=== PATIENT | male | born 1945 | race Caucasian/White ===

== ENCOUNTER 2022-11-08 07:14 | Emergency (ER) | payer OTHER, SELFPAY ==
[2022-11-08 07:15] VITALS: BP 148/48; PULSE 51; RESP 18; TEMP 36.7; O2SAT 96
--- NOTE | 2022-11-08 07:15 | DI.CT_ITS ---
Exam(s) CT ABDOMEN PELVIS WO EXAM: CT ABDOMEN PELVIS WO CLINICAL HISTORY: lower extremity weakness, low back pain. TECHNIQUE: Imaging Protocol: Axial computed tomography images with coronal and sagittal reformatted images were created and reviewed. COMPARISON: No exams were available for comparison FINDINGS: ABDOMEN: Lung Bases: Normal where visualized. Liver: There is a nodular contour of the liver consistent with hepatic cirrhosis. The patient has a TIPS in place. No measurable mass. Gallbladder and biliary tract: No radiodense calculus or biliary ductal dilation. Pancreas: Normal density, no abnormal calcifications or inflammatory process. Spleen: The spleen is enlarged. Kidneys: Normal size, contour and axis.No radiodense stones or obstructive uropathy. No masses seen. Adrenal glands: No mass is seen. Lymph nodes: Within normal limits. Abdominal Aorta: Abdominal portion non-dilated. Atherosclerosis is present. PELVIS: Bladder:Symmetric distention, no gross wall thickening. 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 There are few scatte red diverticula in the colon but no evidence of acute diverticulitis. There also appears to be a par tial right colectomy. There is no evidence of bowel obstruction or inflammation. Peritoneal cavity: No ascites, collection or mesenteric inflammatory response. No free air. Reproductive organs: Unremarkable as visualized. Bones: Within normal limits for the patient's age. Soft Tissues: There are bilateral fat containing inguinal hernias, right greater than left. Postsurg ical changes in the anterior abdominal wall. IMPRESSION: No acute abdominal or pelvic process. RADIATION DOSE DELIVERED: 1193.66 mGy.cm Total DLP DATA REPOSITORY: All CT scans at this facility are submitted to the National Radiology Data Registry (NRDR) Dose Index Registry (DIR) with the [employer] (ACR). RADIATION OPTIMIZATION: All CT scans at this facility use at least one of these dose optimization te chniques: automated exposure control; mA and/or kV adjustment per patient size (includes targeted exa ms where dose is matched to clinical indication); or iterative reconstruction.
--- NOTE | 2022-11-08 07:15 | RT.EKG_ITS ---
APPROVED REPORT Exam: Resting ECG Reason for Exam: dizzy Patient Location: E HR:46 bpm ECG Measurements Heart Rate 46 AXIS NY 269 P 59 QRSd 111 QRS 40 QT 534 T -18 QTc 461 Conclusion Sinus bradycardia...rate< 60 Atrial premature complexes...SV complexes w/ short R-R intvls Prolonged NY interval...NY >230, V-rate 30- 49 Incomplete left bundle branch block...QRSd>110mS, terminal axis(-90,-1) Physician: sinus vicki, p waves noted in II. 1st degree block. no stemi
--- NOTE | 2022-11-08 07:15 | DI.RAD_ITS ---
Exam(s) XR FOOT RT COMPLETE EXAM: XR FOOT RT COMPLETE CLINICAL HISTORY: fall, trauma, great toe pain. TECHNIQUE: 2D digital imaging was performed of the right foot. Three images were obtained. AP, obl ique and lateral views were obtained. COMPARISON: No exams were available for comparison FINDINGS: BONES: No acute fracture is present. No bony destructive lesion is seen. JOINTS: No dislocation present. Degenerative changes are seen at the 1st MTP joint. SOFT TISSUE: Normal. IMPRESSION: No definite acute fracture or dislocation. If symptoms persist, a follow-up examination in 7-10 days may be obtained for re-evaluation. DATA REPOSITORY: RADIATION DOSE DELIVERED:
--- NOTE | 2022-11-08 07:15 | DI.RAD_ITS ---
Exam(s) XR KNEE RT 3V AP,LAT,GIUSEPPE EXAM: XR KNEE RT 3V AP,LAT,GIUSEPPE CLINICAL HISTORY: fall, knee pain. TECHNIQUE: 2D digital imaging was performed of the right knee. Three views obtained. AP, lateral an d PA tunnel views were obtained. COMPARISON: No exams were available for comparison FINDINGS: BONES: No acute fracture is present. No bony destructive lesion is seen. JOINTS: The knee is normally aligned. No joint effusion is seen. Mild degenerative changes are presen t. SOFT TISSUE: Vascular calcifications are present. IMPRESSION: No acute fracture or dislocation. DATA REPOSITORY: RADIATION DOSE DELIVERED:
--- NOTE | 2022-11-08 07:15 | DI.RAD_ITS ---
Exam(s) XR KNEE LT 3V AP,LAT,GIUSEPPE EXAM: XR KNEE LT 3V AP,LAT,GIUSEPPE CLINICAL HISTORY: fall, knee pain. TECHNIQUE: 2D digital imaging was performed of the left knee. Three images were obtained. AP, late ral and PA tunnel views were obtained. COMPARISON: CR XR KNEE RT 3V AP,LAT,GIUSEPPE from 11/08/2022 FINDINGS: BONES: No acute fracture is present. No bony destructive lesion is seen. JOINTS: The knee is normally aligned. No joint effusion is seen. SOFT TISSUE: Normal. IMPRESSION: No acute fracture or dislocation. DATA REPOSITORY: RADIATION DOSE DELIVERED:
--- NOTE | 2022-11-08 07:15 | DI.CT_ITS ---
Exam(s) CT HEAD WO EXAM: CT HEAD WO CLINICAL HISTORY: weak, dizzy. TECHNIQUE: Imaging Protocol: Axial computed tomography images with coronal and sagittal reformatted images were created and reviewed COMPARISON: No exams were available for comparison FINDINGS: Ventricles and Extra axial spaces: Normal in size and morphology for the patient's age. Hemorrhage: None. Cerebral parenchyma: No acute territorial infarct. There are areas of decreased attenuation in the w juanita matter suggestive of small vessel ischemic disease. 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 Midline shift: None. Brainstem/Cerebellum: Normal. Calvarium: Normal. Visualized Paranasal sinuses/Mastoids: Mucosal thickening and small mucous retention cysts or polyps are seen in the maxillary sinuses. The patient has had prior sinus surgery. There is a rounded slig htly hyperdense area in the left maxillary sinus. While hemorrhage cannot be entirely excluded. Chr onic mucosal disease should may also have this appearance. No evidence of a maxillary wall fracture. Soft Tissues: Unremarkable. IMPRESSION: No definite acute intracranial process. RADIATION DOSE DELIVERED: 933.34mGy.cm Total DLP DATA REPOSITORY: All CT scans at this facility are submitted to the National Radiology Data Registry (NRDR) Dose Index Registry (DIR) with the [employer] (ACR). RADIATION OPTIMIZATION: All CT scans at this facility use at least one of these dose optimization te chniques: automated exposure control; mA and/or kV adjustment per patient size (includes targeted exa ms where dose is matched to clinical indication); or iterative reconstruction.
--- NOTE | 2022-11-08 07:22 | DI.CT_ITS ---
Exam(s) CT LUMBAR SPINE RECONS EXAM: CT LUMBAR SPINE RECONS CLINICAL HISTORY: lower extremity weakness, low back pain. TECHNIQUE: Imaging Protocol: Axial computed tomography images with coronal and sagittal reformatted images were created and reviewed. COMPARISON: CT CT ABDOMEN PELVIS WO from 11/08/2022 FINDINGS: Bones: No fractures or dislocations are seen. The alignment of the spine is normal including the thor acolumbar junction. Moderate degenerative changes are present throughout the lumbar spine. Findings include disc space narrowing, vacuum discs, facet arthropathy and endplate osteophytes. There is ne ural foraminal stenosis seen at L4-5 and L5-S1. There is mild narrowing of the central spinal canal at several levels but no significant central spinal canal stenosis is seen. Soft tissues: The paraspinal soft tissues are unremarkable. Please refer to the CT scan of the abdom en and pelvis for other details. Note is made of hepatic TIPS procedure. IMPRESSION: 1. No acute fracture or subluxation in the lumbar spine. 2. Findings were discussed with Dr. Esparza on 11/08/2022 at 12:58 p.m.. RADIATION DOSE DELIVERED: Total DLP Total DLP DATA REPOSITORY: All CT scans at this facility are submitted to the National Radiology Data Registry (NRDR) Dose Index Registry (DIR) with the [employer] (ACR). RADIATION OPTIMIZATION: All CT scans at this facility use at least one of these dose optimization te chniques: automated exposure control; mA and/or kV adjustment per patient size (includes targeted exa ms where dose is matched to clinical indication); or iterative reconstruction.
[2022-11-08 07:30] VITALS: RESP 16
--- NOTE | 2022-11-08 07:30 | ED.GENADUL_ITS ---
Discharge Plan Discharge Details Chief Complaint: Dizzy/Sync ED Provider: [facility] 77-year-old male who is a poor historian who is new to this facility who initially gave EMS the wrong name, and is not able to give much in the way of past medical history, but does have a known history of diabetes, colostomy, and recent endocarditis for which she was treated at [facility] for an extended period of time and is still on IV antibiotics, presents today for evalu ation of dizziness. Patient states that he gets dizzy every day, he has chronic back pain, however today he was again dizzy, lowered himself down onto his knees in the bathroom, and was unable to get up from his knees for a few hours. EMS was called, and the patient was brought here for further assessment. He denies any fall, he denies hitting his. He denies any trauma otherwise. He denies any Chest pain or shortness of breath. He denies any vomiting or diarrhea. He states that he has chronic back pain, but this is unchanged and not new. He states that he has chronic mild lower extremity weakness but never like this and he is always able to get up and move his legs. He denies any new numbness or tingling. He denies any other complaints at this time. Exam demonstrates mild weakness in the lower extremities with a 3 out of 5 strength in lower extremities bilaterally. Bilateral knee tenderness. Right great toe tenderness. Mild achiness in the back but no midline focal tender ness. No other focal neurologic deficits. Differential includes dehydration, less likely stroke. Spinal pathology is on the differential as well, but there is no other clear evidence of cauda equina syndrome aside for the weakness of the lower extremities. Concern for fracture of the great toe, as well as injury of the knees. We will get x-rays of the knees and great toe on the right. We will get a CT scan of the head and lumbar spine. We will gently rehydrate, monitor closely and reassess. Case will be signed out to my colleague Dr. Mirza Oneil for follow-up on labs and imaging. We are requesting medical history from [facility] at this time. HPI General Date/Time Provider Initiated Documentation: 11/08/22 07:22 . HPI Narrative: 77-year-old male who is a poor historian who is new to this facility who initially gave EMS the wrong name, and is not able to give much in the way of past medical history, but does have a known history of diabetes, colostomy, and recent endocarditis for which she was treated at [facility] for an extended period of time and is still on IV antibiotics, presents today for evaluation of dizziness. Patient states that he gets dizzy every day, he has chronic back pain, however today he was again dizzy, lowered himself down onto his knees in the bathroom, and was unable to get up from his knees for a few hours. EMS was called, and the patient was brought here for further assessment. He denies any fall, he denies hitting his. He denies any trauma otherwise. He denies any Chest pain or shortness of breath. He denies any vomiting or diarrhea. He states that he has chronic back pain, but this is unchanged and not new. He states that he has chronic mild lower extremity weakness but never like this and he is always able to get up and move his legs. He denies any new numbness or tingling. He denies any other complaints at this time. Related Data Allergies Allergy/AdvReac Type Severity Reaction Status Date / Time morphine Allergy Severe Other (See Unverified 11/02/22 13:23 Comment) mussels Allergy Severe Other (See Unverified 11/02/22 13:24 Comment) Penicillins Allergy Mild Itching Unverified 11/02/22 13:22 General Stated Complaint: Dizzy/Sync ANNA: 3 Review of Systems All systems reviewed & are unremarkable except as noted in HPI and below PFSH Social History Smoking/Tobacco Use Status: Former Tobacco Use Smoking risk assessment performed?: Yes Alcohol Intake: former Drug use: Never Substance use type: does not use Do you feel safe at home: Yes Do you feel safe in your relationship?: Yes Exam Narrative Exam Narrative: 1.Const: Well-nourished, Well-developed, appearing stated age 2.Eyes: PERRL, no conjunctival injection, and symmetrical lids. 3.ENT: Atraumatic external nose and ears. Moist MM. Neck: Symmetric, trachea midline, No thyromegaly. 4.CVS: +S1/S2, Peripheral pulses 2+ and equal in all extremities. Brisk capillary refill in all extremities. 5.RESP: Unlabored respiratory effort. Clear to auscultation bilaterally. No wheezes rales or rhonchi 6.GI: Soft, Nontender/Nondistended, No hepatosplenomegaly. No guarding or rebound. Colostomy bag in place. 7.MSK: No gross deformity for the upper or lower extremities. Mild redness over the left knee, mild patellar tenderness. Mild tenderness over the right knee. Stool is present between the patient's legs. Sensation is intact in the saddle region. Tenderness of the great toe for the right foot. Pain with dorsiflexion. No tenderness on the rest of the foot or the left foot. Patient demonstrates 3 out of 5 strength for the lower extremities bilaterally. No hip or pelvic tenderness. 8.Skin: Warm, Dry. No rashes or lesions. 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 Sensation grossly intact, no focal neurologic deficits aside for the aforementioned weakness 10.Psych: (AAO) x3. Appropriate mood and affect Course Vital Signs Vital signs: Vital Signs Temperature 36.7 C 11/08/22 07:15 Pulse 51 L 11/08/22 07:15 Respiratory Rate 18 11/08/22 07:15 Blood Pressure 148/48 H 11/08/22 07:15 Pulse Oximetry 96 11/08/22 07:15 Temperature 36.7 C 11/08/22 07:15 Temperature Source Temporal Artery Scan 11/08/22 07:15 Pulse 51 L 11/08/22 07:15 Respiratory Rate 18 11/08/22 07:15 Respiratory Effort Non-Labored 11/08/22 07:24 Blood Pressure 148/48 H 11/08/22 07:15 Blood Pressure Position Sitting 11/08/22 07:15 Pulse Oximetry 96 11/08/22 07:15 Oxygen Delivery Method Room Air 11/08/22 07:15 Oxygen Flow Rate 0 11/08/22 07:15
[2022-11-08] MEDS: Normal Saline 500 ML IV (07:45)
[2022-11-08 08:11] LABS: Abs Immature Grans 0.02 10^3/uL (0.0-0.06); Absolute Basophil Count 0.02 10^3/uL (0.0-0.2); Absolute Eosinophil Count 0.17 10^3/uL (0.0-0.7); Absolute Monocyte Count 0.29 10^3/uL (0.1-0.8); Absolute Neutrophil Count 3.32 10^3/uL (1.2-6.7); Basophils % 0.5; Eosinophils % 3.9; HCT 32.9 % (40.0-50.0); Immature Grans % 0.5; Lymphocytes % 11.6; MCH 29.6 pg (27.0-33.0); MCHC 33.4 % (32.0-36.0); MCV 89 fL (80-95); MPV 11.5 fL (8.0-11.0); Monocytes % 6.7; Neutrophils % 76.8; RBC 3.71 10^6/uL (4.36-5.78); RDW 15.1 % (11.8-14.1); WBC 4.32 10^3/uL (4.4-10.8)
[2022-11-08 08:21] LABS: Diff Comment Diff Reviewed; Platelet Count 63 10^3/uL (130-400); RBC Morphology Normal
[2022-11-08 08:34] LABS: ALT 22 U/L (16-63); AST 39 U/L (15-37); Albumin 2.6 g/dL (3.4-5.0); Alkaline Phosphatase 188 U/L (46-116); Anion Gap 10.7 mmol/L (3-11); BUN 25 mg/dL (7-18); Bilirubin, Total 1.5 mg/dL (0.2-1.0); CO2 23.3 mmol/L (21.0-32.0); CREATININE 1.3 mg/dL (0.70-1.30); Calcium 8.6 mg/dL (8.5-10.1); Chloride 105 mmol/L (98-107); Estimated GFR 57.29 (mL/min/1.73m2); Glucose 205 mg/dL (74-106); Magnesium 1.5 mg/dL (1.8-2.4); NT-proBNP 281 pg/mL (<300); Sodium 139 mmol/L (136-145); TSH (W/Ref FT4) 10.32 uIU/mL (0.36-3.74); Total Protein 6.3 g/dL (6.4-8.2); Troponin I < 50 ng/L (<or=60)
[2022-11-08 11:17] VITALS: BP 159/51; PULSE 55; RESP 16; TEMP 36.9; O2SAT 95
--- NOTE | 2022-11-08 11:19 | NUR.NOTE ---
Nursing Note: PT RESTING ON STRETCHER W/O COMPLAINTS WAITING TO GO TO DI FOR ORDERED EXAMS, NAD, CONTINUE TO MONITOR.
[2022-11-08 11:32] LABS: Troponin I < 50 ng/L (<or=60)
[2022-11-08 12:00] VITALS: BP 178/68; PULSE 56; RESP 16; TEMP 37; O2SAT 96
--- NOTE | 2022-11-08 12:01 | NUR.NOTE ---
Nursing Note: PT TO DI FOR ORDERED EXAMS, PT DENIES DIZZINESS/LIGHT HEADEDNESS AT THIS TIME, DENIES COMPLAINTS EXCEPT BACK DISCOMFORT D/T LYING ON STRETCHER, CONT. TO MONITOR.
[2022-11-08] MEDS: ERTAPENEM 1 GM in Normal Saline 50 ML IVPB (13:31)
--- NOTE | 2022-11-08 14:00 | NUR.NOTE ---
Nursing Note: PT info given to care management for follow up early next week for repeated falls & physical therapy. Shelly, ED
--- NOTE | 2022-11-11 13:11 | CMPROGNOTE_ITS ---
- If Service Date Differs Date of service: 11/11/22 Time of Service: 13:11 Care Management Progress Note Referral to CM from ED for PT orders; no PCP. CM called and spoke with Osmar's , Clary who reported Osmar's PCP is at the [place]: Evelyn Carver. CM updated information and scanned to ACCESS to update chart. Clary also reported [facility] services were already in place providing PT/OT, and shared that Osmra was currently being treated at the [facility] infusion room. She shared positive remarks regarding his visit to the ED.
== END 2022-11-08 16:39 | disposition home or self-care (01) ==
PROVIDERS: Student in an Organized Health Care Education/Training Program; Emergency Provider Emergency Medicine
DX: R42 Dizziness and giddiness (principal); E11.9 Type 2 diabetes mellitus without complications; M54.9 Dorsalgia, unspecified; G89.29 Other chronic pain; R53.1 Weakness; W18.39XA Other fall on same level, initial encounter; M25.561 Pain in right knee; M25.562 Pain in left knee; M79.674 Pain in right toe(s)
CPT/HCPCS: 36415; 73562; 80053; 93005; 96361; 96365; 99285; 70450; 73630; 74176; 83735; 83880; 84439; 84443; 84484; 85025; 93010; 99284; J1335

== ENCOUNTER 2022-11-26 02:33 | Outpatient (RCR) | payer OTHER, SELFPAY ==
[2022-10-30] MEDS: Normal Saline Flush 10 ML SYR IVP (12:57)
[2022-10-30] MEDS: ERTAPENEM 1 GM in Normal Saline 50 ML IVPB (12:57)
[2022-10-30 13:28] LABS: HCT 37.9 % (40.0-50.0); HGB 12.8 g/dL (13.5-17.5); MCH 29.7 pg (27.0-33.0); MCHC 33.8 % (32.0-36.0); MCV 88 fL (80-95); MPV 10.8 fL (8.0-11.0); Platelet Count 144 10^3/uL (130-400); RBC 4.31 10^6/uL (4.36-5.78); RDW 14.7 % (11.8-14.1); RDW-SD 46.4 fL; WBC 7.53 10^3/uL (4.4-10.8)
[2022-10-30 13:47] LABS: ALT 27 U/L (16-63); AST 46 U/L (15-37); Albumin 2.7 g/dL (3.4-5.0); Alkaline Phosphatase 177 U/L (46-116); BUN 16 mg/dL (7-18); Bilirubin, Total 1.8 mg/dL (0.2-1.0); C-Reactive Protein 0.22 mg/dL (0.0-0.3); CREATININE 0.8 mg/dL (0.70-1.30); Calcium 8.5 mg/dL (8.5-10.1); Chloride 109 mmol/L (98-107); Estimated GFR 92.29 (mL/min/1.73m2); Glucose 219 mg/dL (74-106); Potassium 4.3 mmol/L (3.5-5.1); Sodium 140 mmol/L (136-145); Total Protein 6.9 g/dL (6.4-8.2)
[2022-10-31] MEDS: ERTAPENEM 1 GM in Normal Saline 50 ML IVPB (13:13)
[2022-10-31] MEDS: Normal Saline Flush 10 ML SYR IVP (13:13)
[2022-11-01] MEDS: ERTAPENEM 1 GM in Normal Saline 50 ML IVPB (13:00)
[2022-11-01] MEDS: Normal Saline Flush 10 ML SYR IVP (13:00)
[2022-11-02] MEDS: ERTAPENEM 1 GM in Normal Saline 50 ML IVPB (13:18)
[2022-11-02] MEDS: Normal Saline Flush 10 ML SYR IVP (13:18)
[2022-11-03] MEDS: ERTAPENEM 1 GM in Normal Saline 50 ML IVPB (12:55)
[2022-11-03] MEDS: Normal Saline Flush 10 ML SYR IVP (12:56)
[2022-11-04] MEDS: ERTAPENEM 1 GM in Normal Saline 50 ML IVPB (12:58)
[2022-11-04] MEDS: Normal Saline Flush 10 ML SYR IVP (12:58)
[2022-11-05] MEDS: ERTAPENEM 1 GM in Normal Saline 50 ML IVPB (13:06)
[2022-11-05] MEDS: Normal Saline Flush 10 ML SYR IVP (13:06)
[2022-11-06] MEDS: ERTAPENEM 1 GM in Normal Saline 50 ML IVPB (13:03)
[2022-11-06] MEDS: Normal Saline Flush 10 ML SYR IVP (13:06)
[2022-11-06 13:21] LABS: Abs Immature Grans 0.01 10^3/uL (0.0-0.06); Absolute Basophil Count 0.04 10^3/uL (0.0-0.2); Absolute Lymphocyte Count 1.03 10^3/uL (1.2-3.4); Absolute Monocyte Count 0.49 10^3/uL (0.1-0.8); Absolute Neutrophil Count 3.59 10^3/uL (1.2-6.7); Basophils % 0.7; Eosinophils % 5.5; HCT 35.5 % (40.0-50.0); HGB 11.8 g/dL (13.5-17.5); Immature Grans % 0.2; Lymphocytes % 18.9; MCH 29.8 pg (27.0-33.0); MCHC 33.2 % (32.0-36.0); MCV 90 fL (80-95); Neutrophils % 65.7; RBC 3.96 10^6/uL (4.36-5.78); RDW 15.4 % (11.8-14.1); RDW-SD 50.1 fL; WBC 5.46 10^3/uL (4.4-10.8)
[2022-11-06 13:36] LABS: ALT 30 U/L (16-63); AST 47 U/L (15-37); Albumin 2.7 g/dL (3.4-5.0); Alkaline Phosphatase 206 U/L (46-116); Anion Gap 9.3 mmol/L (3-11); BUN 20 mg/dL (7-18); Bilirubin, Total 1.5 mg/dL (0.2-1.0); C-Reactive Protein 0.44 mg/dL (0.0-0.3); CO2 24.7 mmol/L (21.0-32.0); CREATININE 1.6 mg/dL (0.70-1.30); Calcium 8.2 mg/dL (8.5-10.1); Chloride 104 mmol/L (98-107); Estimated GFR 44.65 (mL/min/1.73m2); Glucose 227 mg/dL (74-106); Sodium 138 mmol/L (136-145); Total Protein 6.5 g/dL (6.4-8.2)
[2022-11-06 13:41] LABS: Platelet Count 83 10^3/uL (130-400)
[2022-11-07] MEDS: ERTAPENEM 1 GM in Normal Saline 50 ML IVPB (13:35)
[2022-11-07] MEDS: Normal Saline Flush 10 ML SYR IVP (13:36)
[2022-11-09] MEDS: Normal Saline Flush 10 ML SYR IVP (12:50)
[2022-11-09] MEDS: ERTAPENEM 1 GM in Normal Saline 50 ML IVPB (12:55)
[2022-11-10] MEDS: ERTAPENEM 1 GM in Normal Saline 50 ML IVPB (12:57)
[2022-11-10] MEDS: Normal Saline Flush 10 ML SYR IVP (12:58)
[2022-11-11] MEDS: ERTAPENEM 1 GM in Normal Saline 50 ML IVPB (12:52)
[2022-11-11] MEDS: Normal Saline Flush 10 ML SYR IVP (12:54)
[2022-11-12] MEDS: ERTAPENEM 1 GM in Normal Saline 50 ML IVPB (13:03)
[2022-11-12] MEDS: Normal Saline Flush 10 ML SYR IVP (13:09)
[2022-11-13] MEDS: ERTAPENEM 1 GM in Normal Saline 50 ML IVPB (12:55)
[2022-11-13] MEDS: Normal Saline Flush 10 ML SYR IVP (12:56)
[2022-11-13 13:12] LABS: Abs Immature Grans 0.01 10^3/uL (0.0-0.06); Absolute Basophil Count 0.02 10^3/uL (0.0-0.2); Absolute Eosinophil Count 0.23 10^3/uL (0.0-0.7); Absolute Lymphocyte Count 0.71 10^3/uL (1.2-3.4); Absolute Monocyte Count 0.34 10^3/uL (0.1-0.8); Absolute Neutrophil Count 2.47 10^3/uL (1.2-6.7); Basophils % 0.5; Eosinophils % 6.1; HCT 32.7 % (40.0-50.0); HGB 11.1 g/dL (13.5-17.5); Immature Grans % 0.3; Lymphocytes % 18.8; MCH 30.3 pg (27.0-33.0); MCHC 33.9 % (32.0-36.0); MCV 89 fL (80-95); MPV 11.4 fL (8.0-11.0); Neutrophils % 65.3; RBC 3.66 10^6/uL (4.36-5.78); RDW 15.1 % (11.8-14.1); RDW-SD 48.9 fL; WBC 3.78 10^3/uL (4.4-10.8)
[2022-11-13 13:25] LABS: ALT 22 U/L (16-63); AST 51 U/L (15-37); Albumin 2.7 g/dL (3.4-5.0); Alkaline Phosphatase 188 U/L (46-116); Anion Gap 6.1 mmol/L (3-11); BUN 12 mg/dL (7-18); Bilirubin, Total 2.1 mg/dL (0.2-1.0); CO2 23.9 mmol/L (21.0-32.0); CREATININE 1.1 mg/dL (0.70-1.30); Calcium 8.5 mg/dL (8.5-10.1); Chloride 105 mmol/L (98-107); Estimated GFR 70.01 (mL/min/1.73m2); Glucose 228 mg/dL (74-106); Potassium 3.5 mmol/L (3.5-5.1); Sodium 135 mmol/L (136-145); Total Protein 6.5 g/dL (6.4-8.2)
[2022-11-13 13:35] LABS: Diff Comment Diff Reviewed; Platelet Count 89 10^3/uL (130-400); RBC Morphology Normal
[2022-11-14] MEDS: Normal Saline Flush 10 ML SYR IVP (13:02)
[2022-11-14] MEDS: ERTAPENEM 1 GM in Normal Saline 50 ML IVPB (13:02)
[2022-11-15] MEDS: ERTAPENEM 1 GM in Normal Saline 50 ML IVPB (15:52)
[2022-11-15] MEDS: Normal Saline Flush 10 ML SYR IVP (15:53)
[2022-11-16] MEDS: ERTAPENEM 1 GM in Normal Saline 50 ML IVPB (12:52)
[2022-11-16] MEDS: Normal Saline Flush 10 ML SYR IVP (12:52)
[2022-11-16 12:55] VITALS: BP 184/73; PULSE 59; RESP 24; TEMP 37.1; O2SAT 94
[2022-11-17] MEDS: ERTAPENEM 1 GM in Normal Saline 50 ML IVPB (12:46)
[2022-11-17] MEDS: Normal Saline Flush 10 ML SYR IVP (12:47)
[2022-11-17 12:56] VITALS: RESP 32; O2SAT 91
[2022-11-18] MEDS: Normal Saline Flush 10 ML SYR IVP (12:43)
[2022-11-18] MEDS: ERTAPENEM 1 GM in Normal Saline 50 ML IVPB (12:43)
[2022-11-19] MEDS: ERTAPENEM 1 GM in Normal Saline 50 ML IVPB (12:52)
[2022-11-20] MEDS: ERTAPENEM 1 GM in Normal Saline 50 ML IVPB (14:20)
[2022-11-20] MEDS: Normal Saline Flush 10 ML SYR IVP (14:20)
[2022-11-20 14:37] LABS: HCT 36.9 % (40.0-50.0); HGB 12.5 g/dL (13.5-17.5); MCHC 33.9 % (32.0-36.0); MCV 89 fL (80-95); MPV 9.8 fL (8.0-11.0); Platelet Count 149 10^3/uL (130-400); RBC 4.17 10^6/uL (4.36-5.78); RDW 15.5 % (11.8-14.1); RDW-SD 50.4 fL; WBC 6.66 10^3/uL (4.4-10.8)
[2022-11-20 15:04] LABS: ALT 21 U/L (16-63); AST 55 U/L (15-37); Albumin 2.7 g/dL (3.4-5.0); Alkaline Phosphatase 213 U/L (46-116); Anion Gap 6.9 mmol/L (3-11); BUN 6 mg/dL (7-18); Bilirubin, Total 3.3 mg/dL (0.2-1.0); C-Reactive Protein 1.12 mg/dL (0.0-0.3); CO2 27.1 mmol/L (21.0-32.0); CREATININE 0.9 mg/dL (0.70-1.30); Calcium 8.1 mg/dL (8.5-10.1); Chloride 107 mmol/L (98-107); Estimated GFR 89.07 (mL/min/1.73m2); Glucose 218 mg/dL (74-106); Potassium 3.2 mmol/L (3.5-5.1); Sodium 141 mmol/L (136-145); Total Protein 6.6 g/dL (6.4-8.2)
[2022-11-21] MEDS: ERTAPENEM 1 GM in Normal Saline 50 ML IVPB (12:46)
[2022-11-21] MEDS: Normal Saline Flush 10 ML SYR IVP (12:47)
[2022-11-22] MEDS: ERTAPENEM 1 GM in Normal Saline 50 ML IVPB (12:45)
[2022-11-22] MEDS: Normal Saline Flush 10 ML SYR IVP (12:48)
[2022-11-23] MEDS: ERTAPENEM 1 GM in Normal Saline 50 ML IVPB (13:13)
[2022-11-23] MEDS: Normal Saline Flush 10 ML SYR IVP (13:13)
[2022-11-24] MEDS: ERTAPENEM 1 GM in Normal Saline 50 ML IVPB (12:59)
[2022-11-24] MEDS: Normal Saline Flush 10 ML SYR IVP (13:00)
[2022-11-25] MEDS: Normal Saline Flush 10 ML SYR IVP (13:01)
[2022-11-25] MEDS: ERTAPENEM 1 GM in Normal Saline 50 ML IVPB (13:01)
[2022-11-26] MEDS: ERTAPENEM 1 GM in Normal Saline 50 ML IVPB (12:53)
[2022-11-26] MEDS: Normal Saline Flush 10 ML SYR IVP (12:57)
== END 2022-11-26 23:59 | disposition home or self-care (01) ==
LOC: INF 02:33
PROVIDERS: PCP Student in an Organized Health Care Education/Training Program; Visit Provider Family Medicine
DX: I38 Endocarditis, valve unspecified (principal)
CPT/HCPCS: 36592; 80053; 85027; 96365; 85025; 86140; J1335

== ENCOUNTER 2022-11-29 11:06 | Inpatient (IN) | payer OTHER, SELFPAY ==
[2022-11-29] VITALS (46 sets, daily range): BP systolic 122–204; BP diastolic 50–92; PULSE 60–83; RESP 13–28; TEMP 36.6–37; O2SAT 90–95
--- NOTE | 2022-11-29 11:00 | RT.EKG_ITS ---
APPROVED REPORT Exam: Resting ECG Reason for Exam: Dyspnea Patient Location: E HR:62 bpm ECG Measurements Heart Rate 62 AXIS LA 228 P 55 QRSd 112 QRS 43 QT 464 T 88 QTc 471 Conclusion Sinus rhythm...normal P axis, V-rate 60- 99 Ventricular premature complex...V complex w/ short R-R interval Prolonged LA interval...LA >220, V-rate 50- 90 Incomplete left bundle branch block...QRSd>110mS, terminal axis(-90,-1) Consider anterior infarct...Q >30mS in V2-V5
[2022-11-29 11:45] LABS: Abs Immature Grans 0.02 10^3/uL (0.0-0.06); Absolute Basophil Count 0.04 10^3/uL (0.0-0.2); Absolute Eosinophil Count 0.19 10^3/uL (0.0-0.7); Absolute Lymphocyte Count 0.71 10^3/uL (1.2-3.4); Absolute Neutrophil Count 4.42 10^3/uL (1.2-6.7); Basophils % 0.7; Eosinophils % 3.2; HCT 39.7 % (40.0-50.0); HGB 13.1 g/dL (13.5-17.5); Immature Grans % 0.3; Lymphocytes % 12.1; MCV 88 fL (80-95); MPV 10.4 fL (8.0-11.0); Monocytes % 8.5; Neutrophils % 75.2; Platelet Count 126 10^3/uL (130-400); RBC 4.51 10^6/uL (4.36-5.78); RDW 14.9 % (11.8-14.1); WBC 5.88 10^3/uL (4.4-10.8)
--- NOTE | 2022-11-29 11:59 | DI.RAD_ITS ---
Exam(s) XR PORTABLE CHEST AP EXAM: XR PORTABLE CHEST AP CLINICAL HISTORY: sob. TECHNIQUE: 2D digital imaging was performed. COMPARISON: No exams were available for comparison FINDINGS: Single AP portable view. Cardiomegaly-mild. Mediastinum not widened. Symmetrical increased markings throughout both lung mendez but without confluent infiltrates and no o bvious pleural effusions. No distinct Kevon B lines. IMPRESSION: Pulmonary venous hypertension pattern. Bordering on interstitial pulmonary edema. No obvious pleura l effusions. DATA REPOSITORY: RADIATION DOSE DELIVERED:
[2022-11-29 12:00] LABS: Prothrombin Time 11.5 sec (9.3-11.0)
[2022-11-29 12:01] LABS: INR 1.1 (0.9-1.1)
[2022-11-29 12:04] LABS: ALT 14 U/L (16-63); AST 44 U/L (15-37); Alkaline Phosphatase 213 U/L (46-116); Anion Gap 8.1 mmol/L (3-11); BUN 6 mg/dL (7-18); Bilirubin, Total 3.3 mg/dL (0.2-1.0); CO2 26.9 mmol/L (21.0-32.0); Chloride 107 mmol/L (98-107); Estimated GFR 78.49 (mL/min/1.73m2); Glucose 163 mg/dL (74-106); Potassium 3.9 mmol/L (3.5-5.1); Sodium 142 mmol/L (136-145)
[2022-11-29 12:10] LABS: Magnesium 1.6 mg/dL (1.8-2.4); NT-proBNP 1579 pg/mL (<300); Troponin I 50 ng/L (<or=60)
[2022-11-29 12:16] LABS: D-Dimer 2355 ng/mlFEU (<500)
[2022-11-29 12:24] LABS: COVID-19 PCR Negative (Negative); Influenza A PCR Negative (Negative); Influenza B PCR Negative (Negative); RSV PCR Negative (Negative)
[2022-11-29 12:27] LABS: Source Nasopharynx
--- NOTE | 2022-11-29 12:34 | DI.CT_ITS ---
Exam(s) CT CHEST PE CTA EXAM: CT CHEST PE CTA CLINICAL HISTORY: sob, elevated dimer. TECHNIQUE: Imaging Protocol: CT angiography of the chest was performed using pulmonary embolus mely col. Multi planar reconstructions were performed. CONTRAST MATERIAL: Intravenous: Omnipaque 350 Contrast volume: 100 cc COMPARISON: Chest x-ray earlier same date FINDINGS: CHEST: There is a PICC line noted in the left upper extremity. Its distal tip is at the junction of the inn ominate vein and SVC. PULMONARY ARTERIES: There are no intraluminal filling defects to suggest acute pulmonary emboli. LUNGS: There is an area of patchy infiltrate in the lateral aspect of the right upper lobe. There ar e moderate size bilateral pleural effusions which are associated some volume loss in the basal segmen ts of both lower lobes. MEDIASTINUM: There is mild adenopathy evident in both hilar regions. There is also subcarinal adenop athy. No prominent lymph nodes in the anterior mediastinal fat. No supraclavicular adenopathy. No axillary adenopathy. CARDIAC: Mild cardiomegaly. No pericardial effusion. Moderate coronary artery calcification noted.C aliber of the thoracic aorta is within normal limits. No evidence of aortic dissection. There is no significant shift of the interventricular septum. PARTIALLY VISUALIZED UPPERMOST ABDOMEN: Cirrhotic appearing liver which contains a TIPS. There is sp lenomegaly also evident. No obvious ascites in the only partially visualized upper abdomen. OSSEOUS: No significant osseous lesions.. IMPRESSION: 1. No evidence of acute pulmonary emboli. No evidence of pulmonary infarction. 2. However, there is an area of infiltrate in the lateral aspect of the right upper lobe. There are also moderate size bilateral pleural effusions, right slightly larger than left and there is associat ed atelectasis of the basal segments of the lower lobes. 3. Bilateral hilar adenopathy and subcarinal adenopathy. 4. cardiomegaly. No pericardial effusion. No aortic dissection. 5. 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 Splenomegaly. RADIATION DOSE DELIVERED: 501mGy.cm Total DLP DATA REPOSITORY: All CT scans at this facility are submitted to the National Radiology Data Registry (NRDR) Dose Index Registry (DIR) with the [employer] (ACR). RADIATION OPTIMIZATION: All CT scans at this facility use at least one of these dose optimization te chniques: automated exposure control; mA and/or kV adjustment per patient size (includes targeted exa ms where dose is matched to clinical indication); or iterative reconstruction.
[2022-11-29] MEDS: MAGNESIUM SULFATE 1 GM/100 ML BAG IVPB (12:40)
--- NOTE | 2022-11-29 13:00 | DI.RAD_ITS ---
Exam(s) XR SHOULDER LT COMPLETE 2+V EXAM: XR SHOULDER LT COMPLETE 2+V CLINICAL HISTORY: fall/pain. TECHNIQUE: 2D digital imaging was performed. COMPARISON: No exams were available for comparison FINDINGS: Five views: No evidence of acute fracture nor dislocation or abnormal soft tissue calcifications. No obvious deg enerative changes in the glenohumeral and AC joints. There few degenerative subarticular cysts in th e lateral aspect of the humeral head noted. Ipsilateral clavicle unremarkable. There is an ipsilateral PICC line noted IMPRESSION: No acute osseous findings in the left shoulder. Ipsilateral PICC line noted. DATA REPOSITORY: RADIATION DOSE DELIVERED:
[2022-11-29] MEDS: Furosemide 100 MG/10 ML VIAL 80 MG IVP ×2 (13:22→21:22)
[2022-11-29] MEDS: Normal Saline - Diluent 50 ML VIAL IJ (13:41)
[2022-11-29] MEDS: Omnipaque 350 MG/ML 100 ML BTL IJ (13:41)
[2022-11-29] MEDS: Normal Saline Flush 10 ML SYR IVP ×2 (13:42→21:26)
[2022-11-29 15:10] LABS: Troponin I < 50 ng/L (<or=60)
--- NOTE | 2022-11-29 15:46 | ED.GENADUL_ITS ---
Discharge Plan Discharge Details Chief Complaint: SOB Primary Care Provider: Osmar Carver ED Provider: Carl New Home Meds and New Rx's Prescriptions: No Action carvedilol 6.25 mg Tablet 6.25 mg PO BID Rx Instructions: must administer with a meal/food venlafaxine 150 mg Capsule,Extended Release 24hr 150 mg PO DAILY spironolactone 25 mg Tablet 25 mg PO DAILY prazosin 5 mg Capsule 10 mg PO QHS pantoprazole 40 mg Tablet,Delayed Release (Dr/Ec) 40 mg PO DAILY metformin 1,000 mg Tablet 1,000 mg PO BID levothyroxine 200 mcg Tablet 200 mcg PO DAILY furosemide [Lasix] 20 mg Tablet 20 mg PO DAILY valsartan 40 mg Tablet 40 mg PO BID pregabalin 50 mg Capsule 50 mg PO BID acetaminophen [Tylenol] 325 mg Capsule 650 mg PO Q6H MDD 3000 PRN Eliquis 5 mg Tablet 5 mg PO BID Jardiance 25 mg Tablet 25 mg PO DAILY tamsulosin 0.4 mg Capsule 0.4 mg PO DAILY ertapenem 1 gram Recon Soln 1 g IV DAILY Rx Instructions: end date 12/03/22. Medical Decision Making 77-year-old gentleman with a complicated past medical history presents today for at least 1 month history of worsening dyspnea with exertion, currently receiving ertapenem IV for endocarditis. Patient reports dry cough, bilateral leg swelling which appears to be near his baseline. He is not O2 dependent but does use a CPAP machine at bed. Lungs are diminished bilaterally at the bases. Will initiate cardiac work-up including D-dimer and reassess. Patient does present hypertensive, this appears to be near his baseline. Repeat blood pressure is trending downward. Denies headache, visual changes, chest pain. Laboratory values reveal no evidence of leukocytosis or severe anemia. Platelet count 126. D-dimer is 2355, will pursue CTA of the chest. Electrolytes unremarkable, creatinine 1.0 with a GFR of 78.49. Magnesium 1.6, will provide IV magnesium. Bilirubin of 3.3, alk phosphatase of 213, patient with known cirrhosis, denies any abdominal pain, patient does have historically elevated LFTs. Troponin less than 50, BNP 1579. COVID, flu, RSV negative Chest x-ray reveals pulmonary venous hypertension. No obvious pleural effusion. Patient agreeable to awaiting a delta troponin and awaiting CTA. Will provide 80 IV Lasix given his elevated BNP. CTA reveals no evidence of acute PE. There is an area of infiltrate in the lateral aspect of the right upper lobe, moderate bilateral pleural effusions, right slightly larger than the left with associated atelectasis. Bilateral hilar adenopathy. 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 Delta troponin remains less than 50 Upon trial ambulation patient is reporting dyspnea with exertion, O2 sat drops as low as 82%. Given his overall presentation, admission is certainly reasonable. He will likely require further diuresis. Also, [facility] would require [facility] for further treatment of his endocarditis given his renal function, LFTs, etc. Prior to initiating antibiotic therapy I would like to discuss with the hospitalist or possibly ID consultation. This documentation was generated using [employer] system, please disregard any oddities of phrase or misspellings. Medical Records Medical records reviewed: Yes I reviewed the patient's medical records. Imaging Data Radiologic Study: Attestation: I personally reviewed and interpreted this imaging study as follows: Radiologist's impression: Exam(s) XR PORTABLE CHEST AP EXAM: XR PORTABLE CHEST AP CLINICAL HISTORY: sob. TECHNIQUE: 2D digital imaging was performed. COMPARISON: No exams were available for comparison FINDINGS: Single AP portable view. Cardiomegaly-mild. Mediastinum not widened. Symmetrical increased markings throughout both lung mendez but without confluent infiltrates and no obvious pleural effusions. No distinct Kevon B lines. IMPRESSION: Pulmonary venous hypertension pattern. Bordering on interstitial pulmonary edema. No obvious pleural effusions. Radiologic Study #2: Attestation: I personally reviewed and interpreted this imaging study as follows: Imaging: X-Ray Radiologist's impression: Exam(s) XR SHOULDER LT COMPLETE 2+V EXAM: XR SHOULDER LT COMPLETE 2+V CLINICAL HISTORY: fall/pain. TECHNIQUE: 2D digital imaging was performed. COMPARISON: No exams were available for comparison FINDINGS: Five views: No evidence of acute fracture nor dislocation or abnormal soft tissue calcifications. No obvious degenerative changes in the glenohumeral and AC joints. There few degenerative subarticular cysts in the lateral aspect of the humeral head noted. Ipsilateral clavicle unremarkable. There is an ipsilateral PICC line noted IMPRESSION: No acute osseous findings in the left shoulder. Ipsilateral PICC line noted. Radiologic Study #3: Attestation: I personally reviewed and interpreted this imaging study as follows: Imaging: CT Scan Radiologist's impression: Exam(s) CT CHEST PE CTA EXAM: CT CHEST PE CTA CLINICAL HISTORY: sob, elevated dimer. TECHNIQUE: Imaging Protocol: CT angiography of the chest was performed using pulmonary embolus protocol. Multi planar reconstructions were performed. CONTRAST MATERIAL: Intravenous: Omnipaque 350 Contrast volume: 100 cc COMPARISON: Chest x-ray earlier same date FINDINGS: CHEST: There is a PICC line noted in the left upper extremity. Its distal tip is at the junction of the innominate vein and SVC. PULMONARY ARTERIES: There are no intraluminal filling defects to suggest acute pulmonary emboli. LUNGS: There is an area of patchy infiltrate in the lateral aspect of the right upper lobe. There are moderate size bilateral pleural effusions which are assoc iated some volume loss in the basal segments of both lower lobes. MEDIASTINUM: There is mild adenopathy evident in both hilar regions. There is also subcarinal adenopathy. No prominent lymph nodes in the anterior mediastinal fat. No supraclavicular adenopathy. No axillary adenopathy. CARDIAC: Mild cardiomegaly. No pericardial effusion. Moderate coronary artery calcification noted.Caliber of the thoracic aorta is within normal limits. No evidence of aortic dissection. There is no significant shift of the interventricular septum. PARTIALLY VISUALIZED UPPERMOST ABDOMEN: Cirrhotic appearing liver which contains a TIPS. There is splenomegaly also evident. No obvious ascites in the only partially visualized upper abdomen. OSSEOUS: No significant osseous lesions.. IMPRESSION: 1. No evidence of acute pulmonary emboli. No evidence of pulmonary infarction. 2. However, there is an area of infiltrate in the lateral aspect of the right upper lobe. There are also moderate size bilateral pleural effusions, right slightly larger than left and there is associated atelectasis of the basal segments of the lower lobes. 3. Bilateral hilar adenopathy and subcarinal adenopathy. 4. cardiomegaly. No pericardial effusion. No aortic dissection. 5. 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 Splenomegaly. Lab Data Lab results reviewed: Yes I reviewed the patient's lab results. Labs: Laboratory Tests Range/Units 11/29/22 11/29/22 11/29/22 11:30 11:30 11:30 WBC (4.4-10.8) 10^3/uL RBC (4.36-5.78) 10^6/uL Hgb (13.5-17.5) g/dL Hct (40.0-50.0) % MCV (80-95) fL MCH (27.0-33.0) pg MCHC (32.0-36.0) % RDW (11.8-14.1) % Plt Count (130-400) 10^3/uL MPV (8.0-11.0) fL Immature Gran % Neutrophils % Lymphocytes % Monocytes % Eosinophils % Basophils % Nucleated RBC % (0.0-0.3) % Absolute Neutrophils (1.2-6.7) 10^3/uL Absolute Lymphocytes (1.2-3.4) 10^3/uL Absolute Monocytes (0.1-0.8) 10^3/uL Absolute Eosinophils (0.0-0.7) 10^3/uL Absolute Basophils (0.0-0.2) 10^3/uL PT (9.3-11.0) sec 11.5 H INR (0.9-1.1) 1.1 APTT (21.0-27.5) sec 26.0 D-Dimer (<500) ng/mlFEU 2355 H Sodium (136-145) mmol/L 142 Potassium (3.5-5.1) mmol/L 3.9 Chloride (98-107) mmol/L 107 Carbon Dioxide (21.0-32.0) mmol/L 26.9 Anion Gap (3-11) mmol/L 8.1 BUN (7-18) mg/dL 6 L Creatinine (0.70-1.30) mg/dL 1.0 Est GFR (CKD-EPI 2020) (mL/min/1.73m2) 78.49 Glucose (74-106) mg/dL 163 H Calcium (8.5-10.1) mg/dL 9.0 Magnesium (1.8-2.4) mg/dL 1.6 L Total Bilirubin (0.2-1.0) mg/dL 3.3 H AST (15-37) U/L 44 H ALT (16-63) U/L 14 L Alkaline Phosphatase (46-116) U/L 213 H Troponin I (<or=60) ng/L 50 NT-Pro-B Natriuret Pep (<300) pg/mL 1579 H Total Protein (6.4-8.2) g/dL 7.0 Albumin (3.4-5.0) g/dL 3.0 L COVID-19 Source SARS-CoV-2 (PCR) (Negative) Influenza Type A (PCR) (Negative) Influenza Type B (PCR) (Negative) RSV (PCR) (Negative) Range/Units 11/29/22 11/29/22 11/29/22 11:30 11:34 14:48 WBC (4.4-10.8) 10^3/uL 5.88 RBC (4.36-5.78) 10^6/uL 4.51 Hgb (13.5-17.5) g/dL 13.1 L Hct (40.0-50.0) % 39.7 L MCV (80-95) fL 88 MCH (27.0-33.0) pg 29.0 MCHC (32.0-36.0) % 33.0 RDW (11.8-14.1) % 14.9 H Plt Count (130-400) 10^3/uL 126 L MPV (8.0-11.0) fL 10.4 Immature Gran % 0.3 Neutrophils % 75.2 Lymphocytes % 12.1 Monocytes % 8.5 Eosinophils % 3.2 Basophils % 0.7 Nucleated RBC % (0.0-0.3) % 0.0 Absolute Neutrophils (1.2-6.7) 10^3/uL 4.42 Absolute Lymphocytes (1.2-3.4) 10^3/uL 0.71 L Absolute Monocytes (0.1-0.8) 10^3/uL 0.50 Absolute Eosinophils (0.0-0.7) 10^3/uL 0.19 Absolute Basophils (0.0-0.2) 10^3/uL 0.04 PT (9.3-11.0) sec INR (0.9-1.1) APTT (21.0-27.5) sec D-Dimer (<500) ng/mlFEU Sodium (136-145) mmol/L Potassium (3.5-5.1) mmol/L Chloride (98-107) mmol/L Carbon Dioxide (21.0-32.0) mmol/L Anion Gap (3-11) mmol/L BUN (7-18) mg/dL Creatinine (0.70-1.30) mg/dL Est GFR (CKD-EPI 2020) (mL/min/1.73m2) Glucose (74-106) mg/dL Calcium (8.5-10.1) mg/dL Magnesium (1.8-2.4) mg/dL Total Bilirubin (0.2-1.0) mg/dL AST (15-37) U/L ALT (16-63) U/L Alkaline Phosphatase (46-116) U/L Troponin I (<or=60) ng/L < 50 NT-Pro-B Natriuret Pep (<300) pg/mL Total Protein (6.4-8.2) g/dL Albumin (3.4-5.0) g/dL COVID-19 Source Nasopharynx SARS-CoV-2 (PCR) (Negative) Negative Influenza Type A (PCR) (Negative) Negative Influenza Type B (PCR) (Negative) Negative RSV (PCR) (Negative) Negative ECG Data Attestation: I personally reviewed and interpreted this ECG (s) as follows: Interpretation: Sinus rhythm, ventricular rate of 62, PVC, prolonged OK interval, incomplete left bundle branch block. HPI General Mode of arrival: ambulatory . Date/Time Provider Initiated Documentation: 11/29/22 11:15 . Limitations to Documentation: no limitations . Information obtained by: patient . HPI Narrative: This is a 77-year-old male, past medical history which includes actively being treated for endocarditis, thrombocytopenia, hypertension, bowel obstruction, diabetic neuropathy, history of Hodgkin's lymphoma, CHF, hypothyroidism, rectal CA, cirrhosis of the liver, A-fib, anticoagulated, diabetes, presenting to the ER today reporting dyspnea with exertion going on for at least a month, worsening in nature. Mild bilateral pedal edema which he reports to be near his baseline. Slight dry cough. Denies headache, fever, chest pain, abdominal pain, nausea, vomiting, change in bowel or bladder function. Patient has been receiving ertapenem through the infusion clinic for his endocarditis, scheduled through December 03. Patient also reports that he fell 1 month ago injuring his left shoulder, would like this evaluated as well. Related Data Home Medications Medication Instructions Recorded Confirmed acetaminophen 325 mg capsule 650 mg PO Q6H PRN 11/08/22 11/29/22 (Tylenol) apixaban 5 mg tablet (Eliquis) 5 mg PO BID 11/08/22 11/29/22 carvedilol 6.25 mg tablet 6.25 mg PO BID 11/08/22 11/29/22 empagliflozin 25 mg tablet 25 mg PO DAILY 11/08/22 11/29/22 (Jardiance) furosemide 20 mg tablet (Lasix) 20 mg PO DAILY 11/08/22 11/29/22 levothyroxine 200 mcg tablet 200 mcg PO DAILY 11/08/22 11/29/22 metformin 1,000 mg tablet 1,000 mg PO BID 11/08/22 11/29/22 pantoprazole 40 mg tablet,delayed 40 mg PO DAILY 11/08/22 11/29/22 release prazosin 5 mg capsule 10 mg PO QHS 11/08/22 11/29/22 pregabalin 50 mg capsule 50 mg PO BID 11/08/22 11/29/22 spironolactone 25 mg tablet 25 mg PO DAILY 11/08/22 11/29/22 valsartan 40 mg tablet 40 mg PO BID 11/08/22 11/29/22 venlafaxine 150 mg 150 mg PO DAILY 11/08/22 11/29/22 capsule,extended release 24 hr ertapenem 1 gram intravenous 1 g IV DAILY 11/29/22 11/29/22 solution tamsulosin 0.4 mg capsule 0.4 mg PO DAILY 11/29/22 11/29/22 Allergies Allergy/AdvReac Type Severity Reaction Status Date / Time morphine Allergy Severe Other (See Unverified 11/02/22 13:23 Comment) mussels Allergy Severe Other (See Unverified 11/02/22 13:24 Comment) Penicillins Allergy Mild Itching Unverified 11/02/22 13:22 General Stated Complaint: SOB ANNA: 3 Review of Systems Constitutional Constitutional: Denies fatigue, Denies fever(s) and Reports weakness (Generalized) ENT Ears, Nose, Mouth, and Throat: Denies neck pain Cardiovascular Cardiovascular: Denies chest pain and Reports dyspnea Respiratory Respiratory: Reports cough and Reports dyspnea Gastrointestinal Gastrointestinal: Denies abdominal pain, Denies nausea and Denies vomiting Musculoskeletal Musculoskeletal: Denies neck pain Integumentary/Breasts Skin/Breast: Denies rash Neurologic Neurologic: Reports weakness (Generalized) Endocrine Endocrine: Denies fatigue Hematologic/Lymphatic Hematologic/Lymphatic: Reports easy bleeding and Reports easy bruising PFSH All Active Problems Fall (Acute) Social History Smoking/Tobacco Use Status: Former Tobacco Use Smoking risk assessment performed?: Yes Alcohol Intake: former Drug use: Never Substance use type: does not use Do you feel safe at home: Yes Do you feel safe in your relationship?: Yes Exam Const General: cooperative, comfortable and no acute distress Orientation: alert and awake HENMT Head: normal to inspection, normocephalic and atraumatic Face and sinus: normal facial exam Mouth: moist mucous membranes Eyes Conjunctivae: conjunctivae normal Neck Neck: normal visual inspection, full ROM, no meningeal signs, trachea midline and supple Resp Effort & Inspection: normal respiratory effort and able to speak in complete sentences Auscultation: diminished lung sounds bilaterally in the lower lung mendez Cardio Rate: regular rate Rhythm: regular rhythm GI Inspection: other (Colostomy bag present) Palpation: soft, not firm, no guarding and nontender Auscultation: normal bowel sounds Back/Spine/Pelvis Back: No back tenderness Skin General skin exam: no rashes or lesions noted Neuro General: patient alert, patient awake, moves all extremities and no focal motor deficits Cognition: normal cognition Speech: speech normal Gait: normal gait Sensory Exam: no sensory deficits noted Extrem General: full ROM, capillary refill normal, no calf tenderness and pedal edema bilaterally pitting and 1+ Psych Appearance: grossly normal Mental Status: mental status grossly normal Course Vital Signs Vital signs: Vital Signs Temperature 36.6 C 11/29/22 11:08 Pulse 62 11/29/22 11:08 Respiratory Rate 22 11/29/22 11:08 Blood Pressure 201/72 H 11/29/22 11:08 Pulse Oximetry 95 11/29/22 11:08 Temperature 36.6 C 11/29/22 11:08 Temperature Source Tympanic 11/29/22 11:08 Pulse 60 11/29/22 15:30 Pulse 68 11/29/22 15:40 Respiratory Rate 17 11/29/22 15:40 Respiratory Effort Labored 11/29/22 11:39 Respiratory Depth Normal 11/29/22 11:39 Respiratory Pattern Normal 11/29/22 11:39 Blood Pressure 186/65 H 11/29/22 15:30 Blood Pressure Mean 94 11/29/22 15:30 Blood Pressure Position Sitting 11/29/22 11:08 Pulse Oximetry 91 L 11/29/22 15:00 Oxygen Delivery Method Room Air 11/29/22 11:08 Oxygen Flow Rate 0 11/29/22 11:08 Pain Level 0 11/29/22 11:08 Lab/Test Results Lab/Test Results: Laboratory Tests Range/Units 11/29/22 11/29/22 11/29/22 11:30 11:30 11:30 WBC (4.4-10.8) 10^3/uL RBC (4.36-5.78) 10^6/uL Hgb (13.5-17.5) g/dL Hct (40.0-50.0) % MCV (80-95) fL MCH (27.0-33.0) pg MCHC (32.0-36.0) % RDW (11.8-14.1) % Plt Count (130-400) 10^3/uL MPV (8.0-11.0) fL Immature Gran % Neutrophils % Lymphocytes % Monocytes % Eosinophils % Basophils % Nucleated RBC % (0.0-0.3) % Absolute Neutrophils (1.2-6.7) 10^3/uL Absolute Lymphocytes (1.2-3.4) 10^3/uL Absolute Monocytes (0.1-0.8) 10^3/uL Absolute Eosinophils (0.0-0.7) 10^3/uL Absolute Basophils (0.0-0.2) 10^3/uL PT (9.3-11.0) sec 11.5 H INR (0.9-1.1) 1.1 APTT (21.0-27.5) sec 26.0 D-Dimer (<500) ng/mlFEU 2355 H Sodium (136-145) mmol/L 142 Potassium (3.5-5.1) mmol/L 3.9 Chloride (98-107) mmol/L 107 Carbon Dioxide (21.0-32.0) mmol/L 26.9 Anion Gap (3-11) mmol/L 8.1 BUN (7-18) mg/dL 6 L Creatinine (0.70-1.30) mg/dL 1.0 Est GFR (CKD-EPI 2020) (mL/min/1.73m2) 78.49 Glucose (74-106) mg/dL 163 H Calcium (8.5-10.1) mg/dL 9.0 Magnesium (1.8-2.4) mg/dL 1.6 L Total Bilirubin (0.2-1.0) mg/dL 3.3 H AST (15-37) U/L 44 H ALT (16-63) U/L 14 L Alkaline Phosphatase (46-116) U/L 213 H Troponin I (<or=60) ng/L 50 NT-Pro-B Natriuret Pep (<300) pg/mL 1579 H Total Protein (6.4-8.2) g/dL 7.0 Albumin (3.4-5.0) g/dL 3.0 L COVID-19 Source SARS-CoV-2 (PCR) (Negative) Influenza Type A (PCR) (Negative) Influenza Type B (PCR) (Negative) RSV (PCR) (Negative) Range/Units 11/29/22 11/29/22 11/29/22 11:30 11:34 14:48 WBC (4.4-10.8) 10^3/uL 5.88 RBC (4.36-5.78) 10^6/uL 4.51 Hgb (13.5-17.5) g/dL 13.1 L Hct (40.0-50.0) % 39.7 L MCV (80-95) fL 88 MCH (27.0-33.0) pg 29.0 MCHC (32.0-36.0) % 33.0 RDW (11.8-14.1) % 14.9 H Plt Count (130-400) 10^3/uL 126 L MPV (8.0-11.0) fL 10.4 Immature Gran % 0.3 Neutrophils % 75.2 Lymphocytes % 12.1 Monocytes % 8.5 Eosinophils % 3.2 Basophils % 0.7 Nucleated RBC % (0.0-0.3) % 0.0 Absolute Neutrophils (1.2-6.7) 10^3/uL 4.42 Absolute Lymphocytes (1.2-3.4) 10^3/uL 0.71 L Absolute Monocytes (0.1-0.8) 10^3/uL 0.50 Absolute Eosinophils (0.0-0.7) 10^3/uL 0.19 Absolute Basophils (0.0-0.2) 10^3/uL 0.04 PT (9.3-11.0) sec INR (0.9-1.1) APTT (21.0-27.5) sec D-Dimer (<500) ng/mlFEU Sodium (136-145) mmol/L Potassium (3.5-5.1) mmol/L Chloride (98-107) mmol/L Carbon Dioxide (21.0-32.0) mmol/L Anion Gap (3-11) mmol/L BUN (7-18) mg/dL Creatinine (0.70-1.30) mg/dL Est GFR (CKD-EPI 2020) (mL/min/1.73m2) Glucose (74-106) mg/dL Calcium (8.5-10.1) mg/dL Magnesium (1.8-2.4) mg/dL Total Bilirubin (0.2-1.0) mg/dL AST (15-37) U/L ALT (16-63) U/L Alkaline Phosphatase (46-116) U/L Troponin I (<or=60) ng/L < 50 NT-Pro-B Natriuret Pep (<300) pg/mL Total Protein (6.4-8.2) g/dL Albumin (3.4-5.0) g/dL COVID-19 Source Nasopharynx SARS-CoV-2 (PCR) (Negative) Negative Influenza Type A (PCR) (Negative) Negative Influenza Type B (PCR) (Negative) Negative RSV (PCR) (Negative) Negative
--- NOTE | 2022-11-29 15:57 | NUR.NOTE ---
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 pTs o2 did drop as low as 82% RA at one point, while o2 was at 82%, pT maintained a good pleth.
[2022-11-29] MEDS: ERTAPENEM 1 GM in Normal Saline 50 ML IVPB (17:26)
--- NOTE | 2022-11-29 18:09 | HPE_ITS ---
Date of service: 11/29/22 Time of Service: 18:09 Assessment and Plan Assessment and plan (1) CHF (congestive heart failure): Status: Acute Assessment and plan: Acute pulmonary edema; extremely short of breath with sats down to 82% with just a few steps in the room - takes a few min to recover, then is speaking in full sentences and breathing quietly. He does wear CPAP at night. Lasix 80 mg IV TID; on carvedilol Continue Spironolactone Telemetry I&O Fluid restriction Echo Friday - Dr Burton did POCUS - he has mild LV dysfunction; no RV dysfunction; EF ~ 40% (2) Endocarditis: Status: Acute Assessment and plan: Continue Ertapenim Per Dr Burton echo possible vegetation on (3) Hypertension: Status: Chronic Assessment and plan: Valsartan, Carvedilol, Jardiance (4) Non-insulin dependent type 2 diabetes mellitus: Status: Acute Assessment and plan: chronic - on metformin and jardiance, cardiac protective Hold metformin and SS insulin ordered while in hospital (5) Scleral icterus: Status: Acute Assessment and plan: snf liver disease - waiting for records from [place]; notable scleral icterus - patient states he's never noticed (6) Incontinence: Status: Acute Assessment and plan: Urinary incontinence - will place indwelling urinary catheter in acute phase of illness for accurate I&O in setting of CHF/Pulmonary Edema (7) Fall: Status: Acute Assessment and plan: States he is off balance and falls alot - will get PT consult (8) Depression: Status: Chronic Assessment and plan: Stable - Continue Venlafaxine (9) Pulmonary edema: Status: Acute Assessment and plan: See above CPAP at night Bilateral diffuse B lines per Dr Burton (10) Colon cancer: Status: Chronic Assessment and plan: Colon cancer he reports in his 40's - has colostomy - is independent in managing it; states only bloody when his stoma is irritated - will heme test (11) Confusion: Status: Acute Assessment and plan: confused - unsure of his usual state Will check ammonia I spoke with his , she doesn't really give a good history and was unable to provide med list/pmhx (12) Pleural effusion: Status: Acute Assessment and plan: Mild pleural effusion on the right - B lines per US/Dr Burton - CXR indicates possible infiltrate - procalcitonin is negative. Discussed with Dr Burton (13) DVT prophylaxis: Status: Acute Assessment and plan: On Apixaban chronically - unsure why - waiting for records from the [place] - patient and do not know why he takes it. Has had a heart cath in the past - years ago states he did not get a stent (14) Discharge planning issues: Status: Acute Assessment and plan: Patient has home health PT and OT currently - lots of falls Home with HH v SNF when stable He has all his care at the [facility] in [facility] we have req records - also had an echo at [place] that has been requested Discussed with Dr Burton History of Present Illness History of Present Illness Chief Complaint: Trouble breathing; multiple falls Narrative: This is 77-year-old male patient with a complicated past medical histo ry who presented to the [facility] ED today with chief complaint of at least 1 month history of worsening dyspnea with exertion, currently receiving ertapenem IV for endocarditis.? Patient reported dry cough and bilateral leg swelling.? He does not use oxygen at home but does use a CPAP machine at bed.? Denies headache, visual changes, chest pain.? Laboratory values in the ED reveal no evidence of leukocytosis or severe anemia.? Platelet count 126.? D-dimer is 2355; electrolytes unremarkable, creatinine 1.0 with a GFR of 78.49.? Magnesium 1.6,repleted in the ED; bilirubin of 3.3, alk phosphatase of 213, patient with known cirrhosis, denies any abdominal pain, patient does have historically elevated LFTs.? Troponin less than 50, BNP 1579.? COVID, flu, RSV negative. Chest x-ray reveals pulmonary venous hypertension, bordering on interstitial pulmonary edema.?He? received 80mg of IV Lasix in the ED given his elevated BNP. CTA revealed no evidence of acute PE.? There is an area of infiltrate in the lateral aspect of the right upper lobe, moderate bilateral pleural effusions, right slightly larger than the left with associated atelectasis.? Bilateral hilar adenopathy.? 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 Delta troponin is less than 50. Upon trial ambulation in the ED the patient reported dyspnea with exertion, O2 sat drops as low as 82%.? [facility] whether he would require infectious disease for further treatment of his endocarditis given his renal function, LFTs, etc.? He was seen here in the ED on 11/08/22 for a fall and was discharged to home.? He has home health PT/OT services currently. This is 77-year-old male patient with a complicated past medical history who presented to the [facility] ED today with chief complaint of at least 1 month history of worsening dyspnea with exertion, currently receiving ertapenem IV for endocarditis.? Patient reported dry cough and bilateral leg swelling.? He does not use oxygen at home but does use a CPAP machine at bed.? Denies headache, visual changes, chest pain.? Laboratory values in the ED reveal no evidence of leukocytosis or severe anemia.? Platelet count 126.? D-dimer is 2355; latha ctrolytes unremarkable, creatinine 1.0 with a GFR of 78.49.? Magnesium 1.6,repleted in the ED; bilirubin of 3.3, alk phosphatase of 213, patient with known cirrhosis, denies any abdominal pain, patient does have historically elevated LFTs.? Troponin less than 50, BNP 1579.? COVID, flu, RSV negative. Chest x-ray reveals pulmonary venous hypertension, bordering on interstitial pulmonary edema.?He? received 80mg of IV Lasix in the ED given his elevated BNP. CTA revealed no evidence of acute PE.? There is an area of infiltrate in the lateral aspect of the right upper lobe, moderate bilateral pleural effusions, right slightly larger than the left with associated atelectasis.? Bilateral hilar adenopathy.? 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 Delta troponin is less than 50. Upon trial ambulation in the ED the patient reported dyspnea with exertion, O2 sat drops as low as 82%.? [facility] was [facility] whether he would require infectious disease for further treatment of his endocarditis given his renal function, LFTs, etc.? He was seen here in the ED on 11/08/22 for a fall and was discharged to home.? He has home health PT/OT services currently. Review of Systems All systems reviewed & are unremarkable except as noted in HPI and below PFSH All Active Problems (Updated 11/29/22 @ 21:08 by Sydni Mckeon NP) Pleural effusion (Acute) Confusion (Acute) Colon cancer (Chronic) Pulmonary edema (Acute) Depression (Chronic) Discharge planning issues (Acute) DVT prophylaxis (Acute) Endocarditis (Acute) Non-insulin dependent type 2 diabetes mellitus (Acute) Incontinence (Acute) Hypertension (Chronic) Scleral icterus (Acute) Fall (Acute) CHF (congestive heart failure) (Acute) Social History Smoking/Tobacco Use Status: Former Tobacco Use Smoking risk assessment performed?: Yes Alcohol Intake: former Drug use: Never Substance use type: does not use Do you feel safe at home: Yes Do you feel safe in your relationship?: Yes Meds Allergies and Home Medications Allergies Allergy/AdvReac Type Severity Reaction Status Date / Time Penicillins Allergy Mild Itching Unverified 11/29/22 17:10 morphine AdvReac Severe vomiting Unverified 11/29/22 17:14 mussels AdvReac Severe vomiting Unverified 11/29/22 17:14 Home Medications Medication Instructions Recorded Confirmed Type acetaminophen 325 mg capsule 650 mg PO Q6H PRN 11/08/22 11/30/22 History (Tylenol) apixaban 5 mg tablet (Eliquis) 5 mg PO BID 11/08/22 11/29/22 History carvedilol 6.25 mg tablet 6.25 mg PO BID 11/08/22 11/29/22 History empagliflozin 25 mg tablet 25 mg PO DAILY 11/08/22 11/29/22 History (Jardiance) furosemide 20 mg tablet (Lasix) 20 mg PO DAILY 11/08/22 11/29/22 History levothyroxine 200 mcg tablet 200 mcg PO DAILY 11/08/22 11/29/22 History metformin 1,000 mg tablet 1,000 mg PO BID 11/08/22 11/29/22 History pantoprazole 40 mg tablet,delayed 40 mg PO DAILY 11/08/22 11/29/22 History release prazosin 5 mg capsule 10 mg PO QHS 11/08/22 11/29/22 History pregabalin 50 mg capsule 50 mg PO BID 11/08/22 11/29/22 History spironolactone 25 mg tablet 25 mg PO DAILY 11/08/22 11/29/22 History valsartan 40 mg tablet 40 mg PO BID 11/08/22 11/29/22 History venlafaxine 150 mg 150 mg PO DAILY 11/08/22 11/29/22 History capsule,extended release 24 hr ertapenem 1 gram intravenous 1 g IV DAILY 11/29/22 11/29/22 History solution tamsulosin 0.4 mg capsule 0.4 mg PO DAILY 11/29/22 11/29/22 History Exam Narrative Exam Narrative: Awake, alert, sitting up in bed, states he is hungry, conversant. Const General: cooperative, comfortable and no acute distress Orientation: alert, awake, oriented to person, oriented to place and confused HENMT Head: normal to inspection, normocephalic and atraumatic Face and sinus: normal facial exam Mouth: moist mucous membranes Neck Neck: normal visual inspection, full ROM, no meningeal signs, trachea midline and supple Resp Effort & Inspection: normal respiratory effort and able to speak in complete sentences Auscultation: diminished lung sounds bilaterally in the lower lung mendez Cardio Rate: regular rate Rhythm: regular rhythm GI Inspection: other (Colostomy bag present) Palpation: soft, not firm, no guarding and nontender Auscultation: normal bowel sounds Back/Spine/Pelvis Back: No back tenderness Skin General skin exam: no rashes or lesions noted Neuro General: patient alert, patient awake, moves all extremities and no focal motor deficits Cognition: normal cognition Speech: speech normal Gait: normal gait Sensory Exam: no sensory deficits noted Extrem General: full ROM, capillary refill normal, no calf tenderness and pedal edema bilaterally pitting and 1+ Psych Appearance: grossly normal Mental Status: mental status grossly normal Results Labs Result diagrams: 11/30/22 05:55 11/30/22 05:55 Labs: Laboratory Results - last 24 hr 11/29/22 11/29/22 11/29/22 11:30 11:30 11:30 WBC RBC Hgb Hct MCV MCH MCHC RDW Plt Count MPV Immature Gran % Neutrophils % Lymphocytes % Monocytes % Eosinophils % Basophils % Nucleated RBC % Absolute Neutrophils Absolute Lymphocytes Absolute Monocytes Absolute Eosinophils Absolute Basophils PT 11.5 H INR 1.1 APTT 26.0 D-Dimer 2355 H Sodium 142 Potassium 3.9 Chloride 107 Carbon Dioxide 26.9 Anion Gap 8.1 BUN 6 L Creatinine 1.0 Est GFR (CKD-EPI 2020) 78.49 Glucose 163 H Calcium 9.0 Magnesium 1.6 L Total Bilirubin 3.3 H AST 44 H ALT 14 L Alkaline Phosphatase 213 H Troponin I 50 NT-Pro-B Natriuret Pep 1579 H Total Protein 7.0 Albumin 3.0 L COVID-19 Source SARS-CoV-2 (PCR) Influenza Type A (PCR) Influenza Type B (PCR) RSV (PCR) 11/29/22 11/29/22 11/29/22 11:30 11:34 14:48 WBC 5.88 RBC 4.51 Hgb 13.1 L Hct 39.7 L MCV 88 MCH 29.0 MCHC 33.0 RDW 14.9 H Plt Count 126 L MPV 10.4 Immature Gran % 0.3 Neutrophils % 75.2 Lymphocytes % 12.1 Monocytes % 8.5 Eosinophils % 3.2 Basophils % 0.7 Nucleated RBC % 0.0 Absolute Neutrophils 4.42 Absolute Lymphocytes 0.71 L Absolute Monocytes 0.50 Absolute Eosinophils 0.19 Absolute Basophils 0.04 PT INR APTT D-Dimer Sodium Potassium Chloride Carbon Dioxide Anion Gap BUN Creatinine Est GFR (CKD-EPI 2020) Glucose Calcium Magnesium Total Bilirubin AST ALT Alkaline Phosphatase Troponin I < 50 NT-Pro-B Natriuret Pep Total Protein Albumin COVID-19 Source Nasopharynx SARS-CoV-2 (PCR) Negative Influenza Type A (PCR) Negative Influenza Type B (PCR) Negative RSV (PCR) Negative Last Vital Signs Temp 36.8 C 11/29/22 15:51 Pulse 63 11/29/22 17:46 Resp 20 11/29/22 17:50 BP 204/88 H 11/29/22 17:46 Pulse Ox 92 11/29/22 17:50 Time Spent Time spent with Patient: 40-54 minutes Time was spent: preparing to see the patient(eg.review tests), obtaining and/or reviewing separately otained hiistory, ordering medications,tests, procedures, referring, communicating with other health primary care physician, indepentently interpreting results, counseling the patient and care coordination
[2022-11-29 20:23] LABS: Lab Add On Test DONE
[2022-11-29 20:56] LABS: Procalcitonin < 0.1 ng/mL
--- NOTE | 2022-11-29 21:02 | W.POCUS ---
Pocus Exam Limited Cardiac Exam DATE OF EXAM: 11/29/22 TIME OF EXAM: 19:21 PROVIDER THAT PERFORMED THE STUDY: Carl Burton IS THIS A REPEAT EXAM DURING THIS ENCOUNTER: no REASON FOR EXAM: Congestive heart failure and Evaluation of LV function VISUALIZED STRUCTURES: four chambers, LVOT, aortic valve, mitral valve, Interventricular septum and IVC VIEW OBTAINED: Apical 4-Chamber, Parasternal long-axis, Parasternal short-axis and Subxiphoid PERTINENT FINDINGS/IMPRESSION: IVC inspiratory collapsability (IVC 2.0 cm w/ 69% collapsability) and LV dysfunction (global mild hypokinesis) :mild; No RV dysfunction (normal RV size and function, TAPSE 24.9 mm, S'17.4 cm) Exam complete
--- NOTE | 2022-11-29 21:10 | W.POCUS ---
Pocus Exam Limited Thoracic Lung Exam DATE OF EXAM: 11/29/22 TIME OF EXAM: 20:26 PROVIDER THAT PERFORMED THE STUDY: Carl Burton IS THIS A REPEAT EXAM DURING THIS ENCOUNTER: No REASON FOR EXAM: Shortness ofBreath VISUALIZED STRUCTURES: right anterior, left anterior, right lateral, left lateral, right posterior, left posterior, right subcostal and left subcostal PERTINENT FINDINGS/IMPRESSION: B-lines/left side, B-lines/right side and Right pleural effusion Exam complete
[2022-11-29] MEDS: Melatonin 3 MG TAB 6 MG PO (21:21)
[2022-11-29] MEDS: Apixaban 5 MG TAB PO (21:21)
[2022-11-29] MEDS: Pregabalin 50 MG CAP PO (21:21)
[2022-11-29] MEDS: Prazosin 5 MG CAP 10 MG PO (21:22)
[2022-11-29] MEDS: Carvedilol 6.25 MG TAB PO (21:22)
[2022-11-29] MEDS: Lidocaine 2% Jelly 11 ML SYR (21:27)
[2022-11-29] MEDS: Valsartan 40 MG TAB PO (21:46)
[2022-11-29] MEDS: Insulin Aspart 300 UNITS/3 ML PEN SC (21:47)
[2022-11-30] VITALS (15 sets, daily range): BP systolic 130–166; BP diastolic 50–70; PULSE 48–81; RESP 15–22; TEMP 36.2–36.9; O2SAT 91–96
[2022-11-30] MEDS: Levothyroxine 100 MCG TAB 200 MCG PO (06:10)
[2022-11-30 06:11] LABS: Abs Immature Grans 0.01 10^3/uL (0.0-0.06); Absolute Basophil Count 0.02 10^3/uL (0.0-0.2); Absolute Eosinophil Count 0.21 10^3/uL (0.0-0.7); Absolute Lymphocyte Count 0.69 10^3/uL (1.2-3.4); Absolute Monocyte Count 0.55 10^3/uL (0.1-0.8); Absolute Neutrophil Count 2.68 10^3/uL (1.2-6.7); Basophils % 0.5; HCT 33.9 % (40.0-50.0); HGB 11.2 g/dL (13.5-17.5); Immature Grans % 0.2; Lymphocytes % 16.6; MCH 29.1 pg (27.0-33.0); MCV 88 fL (80-95); MPV 10.2 fL (8.0-11.0); Monocytes % 13.2; Neutrophils % 64.5; RBC 3.85 10^6/uL (4.36-5.78); RDW 14.8 % (11.8-14.1); RDW-SD 47.6 fL; WBC 4.16 10^3/uL (4.4-10.8)
[2022-11-30 06:40] LABS: Ammonia 31 umol/L (11-32); Diff Comment Diff Reviewed; Platelet Count 94 10^3/uL (130-400); RBC Morphology Normal
[2022-11-30 06:42] LABS: ALT 11 U/L (16-63); AST 34 U/L (15-37); Albumin 2.3 g/dL (3.4-5.0); Alkaline Phosphatase 168 U/L (46-116); Anion Gap 8.1 mmol/L (3-11); BUN 9 mg/dL (7-18); Bilirubin, Total 2.3 mg/dL (0.2-1.0); CO2 27.9 mmol/L (21.0-32.0); CREATININE 1.1 mg/dL (0.70-1.30); Calcium 8.6 mg/dL (8.5-10.1); Chloride 107 mmol/L (98-107); Estimated GFR 70.01 (mL/min/1.73m2); Glucose 191 mg/dL (74-106); Magnesium 1.7 mg/dL (1.8-2.4); Potassium 3.4 mmol/L (3.5-5.1); Sodium 143 mmol/L (136-145); Total Protein 5.7 g/dL (6.4-8.2)
[2022-11-30] MEDS: Insulin Aspart 300 UNITS/3 ML PEN SC ×4 (08:53→21:39)
[2022-11-30] MEDS: Apixaban 5 MG TAB PO ×2 (09:23→20:27)
[2022-11-30] MEDS: Tamsulosin 0.4 MG CAPCR PO (09:23)
[2022-11-30] MEDS: Carvedilol 6.25 MG TAB PO ×2 (09:23→20:28)
[2022-11-30] MEDS: Pantoprazole 40 MG TABCR PO (09:23)
[2022-11-30] MEDS: Pregabalin 50 MG CAP PO ×2 (09:23→20:28)
[2022-11-30] MEDS: Venlafaxine 150 MG CAPCR PO (09:23)
[2022-11-30] MEDS: Spironolactone 25 MG TAB PO (09:23)
[2022-11-30] MEDS: Empaglifozin 25 MG TAB PO (09:23)
[2022-11-30] MEDS: Furosemide 100 MG/10 ML VIAL 80 MG IVP (09:24)
[2022-11-30] MEDS: Valsartan 40 MG TAB PO ×2 (09:24→20:27)
--- NOTE | 2022-11-30 09:37 | INITIAL_ITS ---
- If Service Date Differs Date of service: 11/30/22 Time of Service: 09:37 Care Management Initial Assess REASON FOR HOSPITALIZATION:: CHF, acute respiratory failure PAST MEDICAL HISTORY/PAST SURGICAL HISTORY:: Pleural effusion (Acute). Confusion (Acute). Colon cancer (Chronic). Pulmonary edema (Acute). Depression (Chronic). Discharge planning issues (Acute). DVT prophylaxis (Acute). Endocarditis (Acute). Non-insulin dependent type 2 diabetes mellitus (Acute). Incontinence (Acute). Hypertension (Chronic). Scleral icterus (Acute). Fall (Acute). CHF (congestive heart failure) (Acute) PREVIOUS FUNCTIONAL STATUS/SOCIAL/FAMILY SUPPORTS:: Osmar resides in [place] with his , Clary, his son, also Osmar is local as well. CURRENT FUNCTIONAL STATUS:: Pleasantly confused, continues to be closely monitored. Has patient been provided with info about the portal/API?: No Did the patient sign up for the portal?: No CODE STATUS:: Full Code INSURANCE COVERAGE / FINANCIAL ISSUES:: Medicare A&B. [facility] CURRENT HOME/COMMUNITY SERVICES/EQUIPMENT:: [facility] PT/OT. Glucometer, FWW, CPAP, Colostomy/Ileostomy, Outpatient IV ABX infusion ([facility]), [facility] supports/connected PRIMARY CARE PHYSICIAN:: Osmar Carver POTENTIAL DISCHARGE NEEDS:: Evaluations for increased services [id number]. PATIENT/FAMILY EDUCATION NEEDS:: Review of discharge instructions, discuss Ask Me Three. ANTICIPATED BARRIERS TO DISCHARGE:: None identified at this time. TRANSPORTATION:: Dependent on disposition and mobility. PLAN:: Osmar continues to be closely monitored. Undetermined plan at this time. If returning home, resumption of [facility] supports with consideration for additional services. CM continues to follow.
--- NOTE | 2022-11-30 12:06 | TELEP.MEDR_ITS ---
Date of service: 11/30/22 Time of Service: 12:10 Telepharmacy Home Med Rec Allergies Allergies: Penicillins Allergy (Mild, Unverified 11/29/22 17:10) Itching morphine Adverse Reaction (Severe, Unverified 11/29/22 17:14) vomiting mussels Adverse Reaction (Severe, Unverified 11/29/22 17:14) vomiting Interview Person Interviewed: * Patient Quality Quality of Interview/Accuracy of Medication List: Good Sources Sources used to compile medication list: [employer] Medication List and Other ([place] med list ([place])) Changes made to Home Medication List: ADDITIONS: * none DELETIONS: * none CHANGES: * none Additional Notes Additional Notes: * Patient not very sure of his home medications, however [facility]. * Osmar reports he does not take any OTC medications on a regular basis * Ertapenem daily- per [facility] records was ordered for 6 weeks, with a scheduled stop date of 12/03/22 Recommended Changes Recommended Changes(reason for recommendation): * none Attestation: The home medication list is now updated to the best of my knowledge and is ready to be reconciled by the provider. Please contact the [facility] Medication Reconciliation Pharmacist at for any questions.
--- NOTE | 2022-11-30 12:06 | TELEP.MEDREC ---
Date of service: 11/30/22 Time of Service: 12:10 Telepharmacy Home Med Rec Allergies Allergies: Penicillins Allergy (Mild, Unverified 11/29/22 17:10) Itching morphine Adverse Reaction (Severe, Unverified 11/29/22 17:14) vomiting mussels Adverse Reaction (Severe, Unverified 11/29/22 17:14) vomiting Interview Person Interviewed: Patient Quality Quality of Interview/Accuracy of Medication List: Good Sources Sources used to compile medication list: [employer] Medication List and Other ([place] med list ([place])) Changes made to Home Medication List: ADDITIONS: none DELETIONS: none CHANGES: none Additional Notes Additional Notes: Patient not very sure of his home medications, however [facility] were [facility]. Osmar reports he does not take any OTC medications on a regular basis Ertapenem daily- per [facility] records was ordered for 6 weeks, with a scheduled stop date of 12/03/22 Recommended Changes Recommended Changes(reason for recommendation): none Attestation: The home medication list is now updated to the best of my knowledge and is ready to be reconciled by the provider. Please contact the [facility] Medication Reconciliation Pharmacist at for any questions.
[2022-11-30] MEDS: Magnesium Oxide 400 MG TAB PO ×2 (12:09→20:27)
[2022-11-30] MEDS: Normal Saline Flush 10 ML SYR IVP ×2 (16:02→20:28)
[2022-11-30] MEDS: Furosemide 40 MG/4 ML VIAL IVP (16:02)
[2022-11-30] MEDS: ERTAPENEM 1 GM in Normal Saline 50 ML IVPB (16:02)
--- NOTE | 2022-11-30 16:37 | PT.INIE ---
PT Notes Visit Reasons: CHF,Acute Respiratory Failure,Hypoxia Inpatient Physical Therapy Evaluation Date: 11/30/2022 Referring Doctor: Sydni Mckeon PT Orders: PT CONSULT: Evaluate Precautions: Falls Patient Profile/Admitting Diagnosis: 77-year-old male admitted yesterday with CHF and hypercalcemia PMHX: PFSH All Active Problems?(Updated 11/29/22 @ 21:08 by Sydni Mckeon, COMPATIBILITY TEST ENGINEER) Pleural effusion (Acute) Confusion (Acute) Colon cancer (Chronic) Pulmonary edema (Acute) Depression (Chronic) Discharge planning issues (Acute) DVT prophylaxis (Acute) Endocarditis (Acute) Non-insulin dependent type 2 diabetes mellitus (Acute) Incontinence (Acute) Hypertension (Chronic) Scleral icterus (Acute) Fall (Acute) CHF (congestive heart failure) (Acute) Social History/Home Situation: Moved to [place] approximately 3 years ago lives in a private home with his and son. His bedroom is on the first floor with a partial bath, and he usually sponge bathes. He does have a full bathroom on the second floor and is expecting a stair climber to arrive soon. He has 4 steps in treatment home with a railing and this is not generally present a problem. Current Functional Limitations: Independent with bed mobility activities, but he notes that he frequently needs assistance from his with dressing. She prepares the meals and drives, although their vehicle is nonfunctional now with a flat tire. He generally walks short distances around the home with a cane, although does have a 4 wheeled walker. He uses a scooter outdoors and when shopping Equipment Owned/DME: Cane, four-wheel walker and a scooter Subjective: Complains of some intermittent comparable throughout the lateral aspect of proximal left humerus with active movements overhead and out to the side. He notes he is feeling much better since being admitted to the hospital continue with his breathing and activity. He complains of chronic low back pain which been present since the [place] War Objective: General Observation: Pleasant and cooperative, appears comfortable resting in bed without exertional breathing Mental Status: Alert and oriented x3 Pain: Complains of some mild discomfort of the proximal left humerus with active movements overhead, and chronic low back pain Vital Signs: His resting pulse is 54 bpm and O2 sat is 95%; following ambulation is pulse is 57 bpm and O2 sat is 94%. His respiratory rate was 16 breaths/min ROM: Good functional range motion throughout with some mild discomfort throughout the lateral aspect of the proximal left humerus with overhead movements. His lumbar movements are hypomobile with complaints of left pelvic brim discomfort with side bending bilaterally. His active assistive left hip motion is mildly limited with internal rotation and +10 degrees but nonpainful. Strength:Has full volitional movement throughout and the strength is generally rated -5/5 but pain when loading the supraspinatus component of his left shoulder Neuro: KJ's and triceps are +2 and symmetrical, biceps/brachioradialis's/AJ's are +1 and symmetrical. Fingertips to nose is accurate and without ataxia, rapid repetitive arm movements are intact. Sensations intact to light touch and proprioception Bed Mobility/Transfers: Independent with assuming the supine to sitting to standing positions with some mild effort. Gait: He ambulates with a 4 wheeled walker for approximately 250 feet with minimal contact guarding and stable gait. He is able to walk on his heels and toes but with greater contact guarding Balance: Static Sitting: Stable Dynamic Sitting: Stable Static Standing: Stable Dynamic Standing: Requires a walker with minimal contact guarding Special Tests: Mobility Limitations Standardized Measure [facility] AM-PAC 6 clicks Basic Mobility Inpatient Short Form: Raw Score: 18 standardized Score: 3.2 CMS Score: 46%/CK Informed Consent/Education: Patient instructed in purpose of PT consult and plan of care. Assessment: Patient is a 77year old male referred to physical therapy services with the diagnosis of CHF and hypercalcemia. Patient presents with clinical signs and symptoms consistent with diagnosis, but feeling much better compared to admission. Patient does note that he still has some generalized weakness but was pleased with his gait performance and breathing. 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 Maintain strength throughout Ascend and descend stairs with a railing safely Plan of Care/Treatment Plan: 1-2x/day, 7 days/week x 1 week. Plan of care has been reviewed with the FIBER ARTIST providing the service under Physical Therapy direction. Initiate Physical Therapy intervention for strengthening, bed mobility, transfers, gait, stairs, balance training, use of assistive device. DISCHARGE RECOMMENDATIONS: Home with PT services TREATMENT CODE/TIME: 82601/20288/45 minutes Disclaimer: This note was created using [employer] voice recognition software. It was reviewed for major content. However, there may be multiple small discrepancies and errors due to the voice recognition aspects of the software.
--- NOTE | 2022-11-30 19:57 | PGE_ITS ---
Date of Service Date of service: 11/30/22 Time of Service: 12:15 Assessment and Plan Assessment and plan (1) CHF (congestive heart failure): Status: Acute Assessment and plan: Acute pulmonary edema; at time of admission, he wasextremely short of breath with sats down to 82% with just a few steps in the room - takes a few min to recover, then is speaking in full sentences and breathing quietly. He does wear CPAP at night. He has diuresed appx 4L and has had notable improvement in ease of breathing. O2 saturations on 2L NC now in the low to mid 90's. Lasix 80 mg IV TID will be changed to BID. Continue Spironolactone Telemetry I&O Fluid restriction Echo Friday - Dr Burton did POCUS - he has mild LV dysfunction; no RV dysfunction; EF ~ 40% (2) Endocarditis: Status: Acute Assessment and plan: Continue Ertapenim Per Dr Burton echo possible vegetation noted. (3) Hypertension: Status: Chronic Assessment and plan: Valsartan, Carvedilol (as well as diuretics). Improved control. (4) Non-insulin dependent type 2 diabetes mellitus: Status: Acute Assessment and plan: chronic - on metformin and jardiance, cardiac protective Hold metformin and SS insulin ordered while in hospital Glucose 160 this AM. 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 - waiting for records from [place]; notable scleral icterus - patient states he's never noticed Monitor bilirubin and LFTs (6) Incontinence: Status: Acute Assessment and plan: Urinary incontinence - continue indwelling urinary catheter in acute phase of illness for accurate I&O in setting of CHF/Pulmonary Edema (7) Fall: Status: Acute Assessment and plan: States he is off balance and falls alot - PT consulted (8) Depression: Status: Chronic Assessment and plan: Stable - Continue Venlafaxine (9) Colon cancer: Status: Chronic Assessment and plan: Colon cancer he reports in his 40's - has colostomy - is independent in managing it; states only bloody when his stoma is irritated - will heme test (10) Confusion: Status: Acute Assessment and plan: confused - unsure of his usual state Will check ammonia I spoke with his , she doesn't really give a good history and was unable to provide med list/pmhx (11) Pleural effusion: Status: Acute Assessment and plan: Mild pleural effusion on the right - B lines per US/Dr Burton - CXR indicates possible infiltrate - procalcitonin is negative. (12) DVT prophylaxis: Status: Acute Assessment and plan: On Apixaban chronically - unsure why - waiting for records from the [place] - patient and do not know why he takes it. Has had a heart cath in the past - years ago states he did not get a stent (13) Discharge planning issues: Status: Acute Assessment and plan: Patient has home health PT and OT currently - lots of falls Home with HH v SNF when stable He has all his care at the [place] in [facility] we have req records - also had an echo at [place] that has been requested Discussed with Dr Burton Subjective Subjective Patient reports: no new complaints, feels better, tolerating a regular diet, shortness of breath (Improved) and afebrile; denies nausea or vomiting Exam Narrative Exam Narrative: Awake, alert, sitting up in bed. Conversant. Const General: cooperative, comfortable and no acute distress Orientation: alert, awake and oriented x3 HENMT Head: normal to inspection, normocephalic and atraumatic Face and sinus: normal facial exam Mouth: moist mucous membranes Eyes General: appearance normal, both eyes and all related structures Sclera: sclerae normal Neck Neck: normal visual inspection, full ROM and no JVD Resp Effort & Inspection: normal respiratory effort and able to speak in complete sentences Auscultation: diminished lung sounds bilaterally in the lower lung mendez and rales bilaterally at the base (faint) Cardio Rate: regular rate Rhythm: regular rhythm Heart Sounds: S1 normal and S2 normal GI Inspection: non-distended and other (Colostomy bag present) Palpation: soft, not firm, no guarding and nontender Auscultation: normal bowel sounds Back/Spine/Pelvis Back: No back tenderness Skin General skin exam: no rashes or lesions noted Neuro General: moves all extremities and no focal motor deficits Cognition: normal cognition Speech: speech normal Extrem General: full ROM, capillary refill normal, no calf tenderness and pedal edema bilaterally non-pitting Psych Appearance: grossly normal Mental Status: mental status grossly normal Affect: normal affect Objective Last Vital Signs Temp 36.2 C L 11/30/22 15:48 Pulse 48 L 11/30/22 15:48 Resp 22 11/30/22 15:48 BP 166/69 H 11/30/22 15:48 Pulse Ox 96 11/30/22 15:48 Laboratory Results - last 24 hr 11/29/22 11/29/22 11/30/22 14:48 20:22 05:55 WBC RBC Hgb Hct MCV MCH MCHC RDW Plt Count MPV Immature Gran % Neutrophils % Lymphocytes % Monocytes % Eosinophils % Basophils % Nucleated RBC % Absolute Neutrophils Absolute Lymphocytes Absolute Monocytes Absolute Eosinophils Absolute Basophils RBC Morphology Sodium Potassium Chloride Carbon Dioxide Anion Gap BUN Creatinine Est GFR (CKD-EPI 2020) Glucose Calcium Magnesium Total Bilirubin AST ALT Alkaline Phosphatase Ammonia 31 Total Protein Albumin Procalcitonin < 0.1 Add-On Test Request DONE 11/30/22 11/30/22 05:55 05:55 WBC 4.16 L RBC 3.85 L Hgb 11.2 L Hct 33.9 L MCV 88 MCH 29.1 MCHC 33.0 RDW 14.8 H Plt Count 94 L MPV 10.2 Immature Gran % 0.2 Neutrophils % 64.5 Lymphocytes % 16.6 Monocytes % 13.2 Eosinophils % 5.0 Basophils % 0.5 Nucleated RBC % 0.0 Absolute Neutrophils 2.68 Absolute Lymphocytes 0.69 L Absolute Monocytes 0.55 Absolute Eosinophils 0.21 Absolute Basophils 0.02 RBC Morphology Normal Sodium 143 Potassium 3.4 L Chloride 107 Carbon Dioxide 27.9 Anion Gap 8.1 BUN 9 Creatinine 1.1 Est GFR (CKD-EPI 2020) 70.01 Glucose 191 H Calcium 8.6 Magnesium 1.7 L Total Bilirubin 2.3 H AST 34 ALT 11 L Alkaline Phosphatase 168 H Ammonia Total Protein 5.7 L Albumin 2.3 L Procalcitonin Add-On Test Request Time Spent with Patient Time Spent with Patient: 25-34 minutes Time was spent: preparing to see the patient(eg.review tests), obtaining and/or reviewing separately otained hiistory, ordering medications,tests, procedures, indepentently interpreting results and care coordination
[2022-11-30] MEDS: Melatonin 3 MG TAB 6 MG PO (21:39)
[2022-11-30] MEDS: Prazosin 5 MG CAP 10 MG PO (21:39)
[2022-12-01] VITALS (15 sets, daily range): BP systolic 116–179; BP diastolic 62–78; PULSE 48–80; RESP 16–22; TEMP 35.7–36.7; O2SAT 90–97
[2022-12-01] MEDS: Acetaminophen 325 MG TAB 650 MG PO (03:24)
[2022-12-01] MEDS: Levothyroxine 100 MCG TAB 200 MCG PO (05:57)
[2022-12-01] MEDS: Normal Saline Flush 10 ML SYR IVP ×3 (05:57→19:43)
[2022-12-01 06:52] LABS: Anion Gap 6.7 mmol/L (3-11); BUN 16 mg/dL (7-18); CO2 30.3 mmol/L (21.0-32.0); CREATININE 1.2 mg/dL (0.70-1.30); Calcium 8.5 mg/dL (8.5-10.1); Chloride 105 mmol/L (98-107); Estimated GFR 63.07 (mL/min/1.73m2); Glucose 155 mg/dL (74-106); Magnesium 1.8 mg/dL (1.8-2.4); Potassium 3.2 mmol/L (3.5-5.1); Sodium 142 mmol/L (136-145)
[2022-12-01 07:19] LABS: Lab Add On Test DONE
[2022-12-01 07:35] LABS: ALT 14 U/L (16-63); AST 34 U/L (15-37); Albumin 2.5 g/dL (3.4-5.0); Alkaline Phosphatase 166 U/L (46-116); Bilirubin, Direct 0.7 mg/dL (0.0-0.2); Total Protein 5.9 g/dL (6.4-8.2)
[2022-12-01] MEDS: Furosemide 40 MG/4 ML VIAL IVP ×2 (08:46→16:13)
[2022-12-01] MEDS: Pregabalin 50 MG CAP PO ×2 (08:47→19:40)
[2022-12-01] MEDS: Tamsulosin 0.4 MG CAPCR PO (08:47)
[2022-12-01] MEDS: Potassium Chloride 20 MEQ TABCR PO ×2 (08:47→19:39)
[2022-12-01] MEDS: Magnesium Oxide 400 MG TAB PO ×2 (08:47→19:40)
[2022-12-01] MEDS: Apixaban 5 MG TAB PO ×2 (08:47→19:40)
[2022-12-01] MEDS: Valsartan 40 MG TAB PO ×2 (08:47→20:53)
[2022-12-01] MEDS: Empaglifozin 25 MG TAB PO (08:47)
[2022-12-01] MEDS: Pantoprazole 40 MG TABCR PO (08:47)
[2022-12-01] MEDS: Venlafaxine 150 MG CAPCR PO (08:48)
[2022-12-01] MEDS: Spironolactone 25 MG TAB PO (08:48)
--- NOTE | 2022-12-01 10:03 | PHACLINREV_ITS ---
Pharmacy Admission Review - Admission Clinical Review (Last Reviewed 11/29/22 @ 15:50 by STEFANO Reyes) Pleural effusion (Acute) Confusion (Acute) Pulmonary edema (Acute) Discharge planning issues (Acute) DVT prophylaxis (Acute) Endocarditis (Acute) Non-insulin dependent type 2 diabetes mellitus (Acute) Incontinence (Acute) Scleral icterus (Acute) Fall (Acute) CHF (congestive heart failure) (Acute) Penicillins Allergy (Mild, Unverified 11/29/22 17:10) Itching morphine Adverse Reaction (Severe, Unverified 11/29/22 17:14) vomiting mussels Adverse Reaction (Severe, Unverified 11/29/22 17:14) vomiting Resuscitation Status Full Code Height 5 ft 6 in Weight 105.687 kg CHF, HYPOXIA, HX: ENDOCARDITIS - Comments Comments/Follow Ups: Afebrile, no elevated WBC, Presented SOB, hypoxic.Patient has been coming to infusion room for daily Ertapenem doses for treatment of Endocarditis. Patient goes to [place] for meds, no Microbiology done on this admission, continue outpatient Ertapenem (was scheduled to be finished on 12/03/22). Follow diuresis for acute pulmonary edema, Sats mid to high 90's on low dose oxygen, Echo on Friday to check for vegetation. Per MD note, unclear and family/ does not know what he takes Apixiban; awaiting records - Renal Dosing Renal Dosing: BUN 16 mg/dL (7-18) 12/01/22 06:00 Creatinine 1.2 mg/dL (0.70-1.30) 12/01/22 06:00 CrCl~60ml/min Medications needing adjustments: N/A - Anticoagulation Anticoagulation: Hgb 11.2 g/dL (13.5-17.5) L 11/30/22 05:55 Hct 33.9 % (40.0-50.0) L 11/30/22 05:55 Plt Count 94 10^3/uL (130-400) L 11/30/22 05:55 INR 1.1 (0.9-1.1) 11/29/22 11:30 Creatinine 1.2 mg/dL (0.70-1.30) 12/01/22 06:00 Therapeutic Anticoagulation: Reviewed Medications: Apixaban - Relevant Labs Sodium 142 mmol/L (136-145) 12/01/22 06:00 Potassium 3.2 mmol/L (3.5-5.1) L 12/01/22 06:00 Chloride 105 mmol/L (98-107) 12/01/22 06:00 Magnesium 1.8 mg/dL (1.8-2.4) 12/01/22 06:00 Potassium being replaced orally, will need additional dosing Rec'd Magnesium 1gram IV x 1 on admission in ED Procal <0.1 - DM Control DM Control: Glucose 155 mg/dL (74-106) H 12/01/22 06:00 Finger Stick Blood Glucose 135 Finger Stick Blood Glucose 135 DM Control: Reviewed (Novolog scale, Jardiance) - Cardiac Review Cardiac Review: Troponin I < 50 ng/L (<or=60) 11/29/22 14:48 NT-Pro-B Natriuret Pep 1579 pg/mL (<300) H 11/29/22 11:30 BP, HR, EF%: Reviewed (Diuresing with Lasix 40mg IV BID, Spironolactone 25mg daily, need daily weight, I/O negative) - Qtc Review QTc: Reviewed (QTC 471) - IV to PO Switch IV Medications: Reviewed (Lasix IV to oral when appropriate) - Home Meds Home Med List reviewed: Reviewed (Med rec completed by [facility], [place] med list is in patient chart, med list accurate)
[2022-12-01] MEDS: Insulin Aspart 300 UNITS/3 ML PEN SC ×3 (11:44→21:49)
--- NOTE | 2022-12-01 11:58 | PT.INTREAT ---
PT Notes Visit Reasons: CHF,Acute Respiratory Failure,Hypoxia Precautions: Activity as tolerated, falls SUBJECTIVE: ?Pt is pleasant and agreeable to participating in PT.? Pt did not offer any complaints today.? OBJECTIVE: ?PAIN: No c/o pain ?BED MOBILITY/TRANSFERS?Sit-stand: independent?Stand-sit: independent Sit to stand: independent Stand to sit: independent?GAIT?Assistive Device: 4WW?Weight bearing: Full ?Assist: independent?Distance:? 300' x1?Deviation: Cue for posture and heel to toe gait for improved step quality. ?? Therapeutic Activities [id number] mins: instruction in dynamic activities with one on one patient contact by the provider to improve functional performance?as follows: Stair negotiation training 12 steps step through going up and step through on going down with 1handrail with pt taking standing rest break after pt reached the top landing.?ASSESSMENT:? Patient able to complete gait training and stair training without LOB and no report of pain post session. ?PLAN: Continue with global strengthening and general conditioning for improved mobility and activity tolerance. ?TREATMENT CODE/TIME: ?30minutes;? [id number], (9:50- 10:20am)
[2022-12-01] MEDS: amLODIPine 2.5 MG TAB PO (12:14)
[2022-12-01] MEDS: ERTAPENEM 1 GM in Normal Saline 50 ML IVPB (13:51)
--- NOTE | 2022-12-01 16:20 | PGE_ITS ---
Date of Service Date of service: 12/01/22 Time of Service: 16:20 Assessment and Plan Assessment and plan (1) CHF (congestive heart failure): Status: Acute Assessment and plan: Acute pulmonary edema; at time of admission, he was extremely short of breath with sats down to 82% with just a few steps in the room - takes a few min to recover, then is speaking in full sentences and breathing quietly. He does wear CPAP at night. He has diuresed appx 8L and has had notable improvement in ease of breathing. Now on RA. Will perform exercise oximetry tomorrow. Lasix 80 mg IV TID initially, now 40mg IV BID. Continue Spironolactone Telemetry I&O Fluid restriction Echo Friday - Dr Burton did POCUS - he has mild LV dysfunction; no RV dysfunction; EF ~ 40% (2) Endocarditis: Status: Acute Assessment and plan: Continue Ertapenim Per Dr Burton echo possible vegetation noted. (3) Hypertension: Status: Chronic Assessment and plan: On Valsartan, Carvedilol (as well as diuretics). D/T HR in the low 50's this AM his carvedilol was held. Decrease carvedilol to 3.125mg BID Added amlodipine 2.5mg with a dose given in the middle of the day. BP still elevated. Increase amlodipine to 5mg starting in the AM. See if BP improves again after 1600 dose of lasix. . (4) Non-insulin dependent type 2 diabetes mellitus: Status: Acute Assessment and plan: chronic - on metformin and jardiance, cardiac protective Hold metformin and SS insulin ordered while in hospital Glucose 135 this AM then 336 at noon. Increase SS insulin to moderate dose. (5) Scleral icterus: Status: Acute Assessment and plan: Chronic elevated bili; improved since admission. (6) Incontinence: Status: Acute Assessment and plan: Urinary incontinence - continue indwelling urinary catheter in acute phase of illness for accurate I&O in setting of CHF/Pulmonary Edema (7) Fall: Status: Acute Assessment and plan: States he is off balance and falls alot - PT consulted (8) Depression: Status: Chronic Assessment and plan: Stable - Continue Venlafaxine (9) Colon cancer: Status: Chronic Assessment and plan: Colon cancer he reports in his 40's - has colostomy - is independent in managing it; states only bloody when his stoma is irritated - will heme test (10) Confusion: Status: Acute Assessment and plan: Concerned about mild confusion noted on admission. Currently A&O x 3. I spoke with his , she doesn't really give a good history and was unable to provide med list/pmhx (11) Pleural effusion: Status: Acute Assessment and plan: Mild pleural effusion on the right - B lines per US/Dr Burton - CXR indicates possible infiltrate - procalcitonin is negative. (12) DVT prophylaxis: Status: Acute Assessment and plan: On Apixaban chronically Has had a heart cath in the past - years ago states he did not get a stent (13) Discharge planning issues: Status: Acute Assessment and plan: Patient has home health PT and OT currently - lots of falls Home with HH v SNF when stable Subjective Subjective Patient reports: no new complaints, feels better and afebrile; denies nausea or shortness of breath Exam Narrative Exam Narrative: Awake, alert, lying in bed. Conversant. Const General: cooperative, comfortable and no acute distress Orientation: alert, awake and oriented x3 HENMT Head: normal to inspection, normocephalic and atraumatic Face and sinus: normal facial exam Mouth: moist mucous membranes Eyes General: appearance normal, both eyes and all related structures Sclera: sclerae normal Neck Neck: normal visual inspection, full ROM and no JVD Resp Effort & Inspection: normal respiratory effort and able to speak in complete sentences Auscultation: diminished lung sounds bilaterally in the lower lung mendez Cardio Rate: regular rate Rhythm: regular rhythm Heart Sounds: S1 normal and S2 normal GI Inspection: non-distended and other (Colostomy bag present) Palpation: soft, not firm, no guarding and nontender Auscultation: normal bowel sounds Back/Spine/Pelvis Back: No back tenderness Skin General skin exam: no rashes or lesions noted Neuro General: moves all extremities and no focal motor deficits Cognition: normal cognition Speech: speech normal Extrem General: full ROM, capillary refill normal, no calf tenderness and pedal edema bilaterally non-pitting Psych Appearance: grossly normal Mental Status: mental status grossly normal Affect: normal affect Objective Last Vital Signs Temp 35.8 C L 12/01/22 14:43 Pulse 50 L 12/01/22 14:43 Resp 22 12/01/22 14:43 BP 179/63 H 12/01/22 14:43 Pulse Ox 92 12/01/22 14:43 Laboratory Results - last 24 hr 12/01/22 12/01/22 12/01/22 06:00 06:00 06:00 Sodium 142 Potassium 3.2 L Chloride 105 Carbon Dioxide 30.3 Anion Gap 6.7 BUN 16 Creatinine 1.2 Est GFR (CKD-EPI 2020) 63.07 Glucose 155 H Calcium 8.5 Magnesium 1.8 Total Bilirubin 2.0 H Conjugated Bilirubin 0.7 H AST 34 ALT 14 L Alkaline Phosphatase 166 H Total Protein 5.9 L Albumin 2.5 L Add-On Test Request DONE Time Spent with Patient Time Spent with Patient: <25 minutes Time was spent: preparing to see the patient(eg.review tests), ordering medicati ons,tests, procedures and counseling the patient
--- NOTE | 2022-12-01 16:30 | RT.EKG_ITS ---
APPROVED REPORT Exam: Resting ECG Reason for Exam: QT prolongation Patient Location: I HR:51 bpm ECG Measurements Heart Rate 51 AXIS HI 281 P -26 QRSd 111 QRS 24 QT 529 T 106 QTc 488 Conclusion Sinus rhythm...normal P axis, V-rate 50- 99 Prolonged HI interval...HI >220, V-rate 50- 90 Incomplete left bundle branch block...QRSd>110mS, terminal axis(-90,-1) Abnormal T, consider ischemia, anterior leads...T <-0.20mV, V2-V4
[2022-12-01 18:10] LABS: Troponin I < 50 ng/L (<or=60)
[2022-12-01] MEDS: Carvedilol 3.125 MG TAB PO (19:40)
[2022-12-01] MEDS: Prazosin 5 MG CAP 10 MG PO (21:47)
[2022-12-01] MEDS: Melatonin 3 MG TAB 6 MG PO (21:47)
[2022-12-02] VITALS (8 sets, daily range): BP systolic 110–156; BP diastolic 63–65; PULSE 56–71; RESP 16–19; TEMP 36.5–36.9; O2SAT 85–94
--- NOTE | 2022-12-02 | DI.US_ITS ---
APPROVED REPORT EXAM: Comprehensive 2D, Doppler, and color-flow Echocardiogram Patient Location: In-Patient Room/Bed: 231 Administration Internship: Priscilla Luz RDCS (AE) Indications: CHF Other Information Study Quality: Adequate Conclusion Normal left ventricular wall thickness and chamber size. Estimated ejection fraction is 50 to 55%. There are no segmental wall motion abnormalities Normal right ventricular size and systolic function Both atria are mildly dilated Aortic valve is sclerotic and trileaflet without stenosis or regurgitation Normal tricuspid valve with trace to mild regurgitation. Estimated right ventricular systolic pressu re is 38 mmHg Normal mitral valve with mild regurgitation Wall motion Left Ventricle The left ventricle is normal size. Left ventricular systolic function is mildly decreased. There is n ormal left ventricular wall thickness. There are no segmental wall motion abnormalities There is no v entricular septal defect visualized. LVEF is50-55% Right Ventricle The right ventricle is normal size. The right ventricular systolic function is normal. The RVSP is 38 .2 mmHg. Atria Left atrium is mildly dilated. Right atrium is mildly dilated. The interatrial septum is intact with no evidence for an atrial septal defect. Aortic Valve The Aortic valve is sclerotic. Aortic valve is trileaflet. No hemodynamically significant valvular ao rtic stenosis. No aortic regurgitation is present. Mitral Valve The mitral valve is normal in structure. No evidence of mitral valve stenosis. Mild mitral regurgitat ion. Tricuspid Valve The tricuspid valve is normal in structure. There is no tricuspid valve stenosis. Trace to mild tricu spid regurgitation. Pulmonic Valve The pulmonary valve is normal in structure. There is no pulmonic valvular stenosis. There is no pulmo gabriel valvular regurgitation. Great Vessels The aortic root is normal in size. Ascending aorta is not well visualized. Aortic arch is normal in c aliber. IVC is normal in size and collapses >50% with inspiration. Pericardium There is no pericardial effusion. 2D Dimensions IVSD d PLAX 0.90 cm M: 0.6-1.2 LV Vol A2C d MOD 215.4 mL LVPW d PLAX 0.93 cm M: 0.6 - 1.2 LV Vol A4C d MOD 225.2 mL LVID d PLAX 5.46 cm M: 4.2 - 5.8 LA vol/ BSA A2C s A-L 60.8 mL/m2 LVDs 4.25 cm M: 2.5 - 4.0 LA vol/ BSA A4C s A-L 47.3 mL/m2 Ao Root d 3.02 cm M: 3.1 - 3.7 LA Vol/ BSA Biplane s A-L 54.0 mL/m2 RA Area A4C 23.53 cm2 LA Area A4C s MOD 27.70 cm2 RA Vol/ BSA A4C s A-L 38.7 mL/m2 LA Area A2C s MOD 31.65 cm2 LV EF Teichholz 43.1 % LV EF A4C MOD 47.8 % LVEF (George's) 47.86 % M: 52 - 72 LV EF A2C MOD 45.5 % LV Volume 166.23 mL M: 62 - 150 LV EF Biplane MOD 47.9 % LV Volume Index 79.15 mL/m2 M: 34 - 74 SV 107.78 mL LV Vol Biplane MOD 225.2 mL SV Index 51.35 mL/m2 FS 21.45 % M-Mode TAPSE 2.43 cm (M/F) >1.7 LV Diastology MV E' medial 0.053 (>0.07 m/s) E/A Ratio 1.3 LV E/e MED 16.95 (<14) MV E Vmax 0.89 (0.4-1.3 m/s) MV E' lateral 0.130 (>0.1 m/s) MV A Vmax 0.70 (0.4-1.3 m/s) LV E/e LAT 6.85 (<14) MV E/A Ratio 1.26 MV E/E' medial 16.98 MV E/E' lateral 6.89 Aortic Valve LVOT Area 3.15 cm2 AoV Area Vmax 1.86 cm2 LVOT Vmax 1.35 m/s AoV Area/ BSA (Vmax) 0.89 cm2/m2 LVOT Mean Adonay. 0.92 m/s ANA Mean Adonay. 1.74 cm2 LVOT Peak Grad 7.3 mmHg ANA Mean Adonay. Index 0.83 cm2/m2 LVOT Mean Grad 4.0 mmHg LVOT VTI 0.291 m LVOT Diam s 2.00 cm AoV Vmax 2.28 m/s Velocity Ratio 0.59 AoV Mean Adonay. 1.66 m/s AoV Peak Grad 20.8 mmHg LVOT SV 91.57 mL AoV Mean Grad 12.0 mmHg AoV VTI 0.484 m AoV Area VTI 1.89 cm2 AoV Area/ BSA (VTI) 0.90 cm/m2 Mitral Valve MV DT 263 (160-240 msec) MV PHT 76 msec MV Area PHT 2.88 cm2 MV VTI 0.459 m MV Area VTI 2.00 (4.0-6.0 cm2) Pulmonary Valve PV Vmax 1.65 (0.5-1.5 m/s) RVOT Peak Gr. 3.66 mmHg PV Peak Grad 10.8 mmHg RVOT Mean Gr. 1.65 mmHg PV Mean Grad 6.3 mmHg RVOT VTI 0.208 m PV VTI 0.271 m RVOT Vmax 0.96 m/s Tricuspid Valve TR Peak Grad 35.1 mmHg TR Vmax 2.97 m/s RA Pressure 3.00 mmHg RVSP (TR) 38.2 mmHg
[2022-12-02] MEDS: Levothyroxine 100 MCG TAB 200 MCG PO (05:40)
[2022-12-02 06:26] LABS: Anion Gap 6.5 mmol/L (3-11); BUN 21 mg/dL (7-18); CO2 30.5 mmol/L (21.0-32.0); CREATININE 1.3 mg/dL (0.70-1.30); Calcium 8.4 mg/dL (8.5-10.1); Chloride 105 mmol/L (98-107); Estimated GFR 57.29 (mL/min/1.73m2); Glucose 131 mg/dL (74-106); Potassium 3.6 mmol/L (3.5-5.1); Sodium 142 mmol/L (136-145)
[2022-12-02] MEDS: Potassium Chloride 20 MEQ TABCR PO (08:45)
[2022-12-02] MEDS: Furosemide 40 MG/4 ML VIAL IVP (08:45)
[2022-12-02] MEDS: Venlafaxine 150 MG CAPCR PO (08:46)
[2022-12-02] MEDS: Carvedilol 3.125 MG TAB PO (08:46)
[2022-12-02] MEDS: Spironolactone 25 MG TAB PO (08:46)
[2022-12-02] MEDS: Tamsulosin 0.4 MG CAPCR PO (08:46)
[2022-12-02] MEDS: Pantoprazole 40 MG TABCR PO (08:46)
[2022-12-02] MEDS: Valsartan 40 MG TAB PO (08:46)
[2022-12-02] MEDS: Empaglifozin 25 MG TAB PO (08:46)
[2022-12-02] MEDS: Pregabalin 50 MG CAP PO (08:46)
[2022-12-02] MEDS: amLODIPine 5 MG TAB PO (08:46)
[2022-12-02] MEDS: Apixaban 5 MG TAB PO (08:46)
[2022-12-02] MEDS: Magnesium Oxide 400 MG TAB PO (08:47)
[2022-12-02] MEDS: Insulin Aspart 300 UNITS/3 ML PEN SC (12:01)
--- NOTE | 2022-12-02 12:54 | DSE_ITS ---
Date of service: 12/02/22 Time of Service: 12:54 DS: Diagnosis Discharge Diagnosis (1) CHF (congestive heart failure): Status: Acute Asessment and Plan: Lasix 80mg IV TID initiated. He diuresed 9+ liters with significant improvement in his pedal edema. He was weaned from supplemental O2. His echocardiogram showed an EF of 55-60%. No wall motion abnormalities. He will d/c to home on lasix 20mg po daily which has been his home dose. Low Na diet. Daily wts with instructions on when to take an extra lasix dose and call his PCP. Continue carvedilol, though at a lower dose of 3.125 d/t bradycardia. Cont valsartan, spironolactone and Jardiance as goal directed therapies. (2) Endocarditis: Status: Acute Asessment and Plan: Continue outpt infusion of ertapenem until course completed. (3) Hypertension: Status: Chronic Asessment and Plan: Elevated readings intermitently during this admission. Amlodipine was given but will not continue. Follow home BP closely in light of now on a lower carvedilol dose. Low Na intake emphasized. (4) Non-insulin dependent type 2 diabetes mellitus: Status: Acute Asessment and Plan: Cont metformin and Jardiance. Controlled carb diet. (5) Incontinence: Status: Acute Asessment and Plan: He is on prazosin and tamsulosin. (6) Depression: Status: Chronic Asessment and Plan: Cont venlafaxine. (7) Colon cancer: Status: Chronic Asessment and Plan: Ostomy care as per his usual. (8) Confusion: Status: Acute Asessment and Plan: Early cognitive decline. (9) Pleural effusion: Status: Acute Asessment and Plan: Has been diuresed. Cont lasix and low Na diet. 2L fluid intake daily recommended. (10) Discharge planning issues: Status: Acute Asessment and Plan: Home with Home Health that he was already receiving. [employer] added. Discharge Plan Disposition Patient Disposition: Home W/Home Health Services Condition: Improving Discharge Details Reason For Visit: CHF,Acute Respiratory Failure,Hypoxia Admit Date/Time: 11/29/22 17:09 Admit Provider: Carl Burton Attending Provider: Carl Burton Primary Care Provider: Mehul,[facility] Hospital Course: This is 77-year-old male patient with a complicated past medical history who presented to the [facility] ED today with chief complaint of at least 1 month history of worsening dyspnea with exertion, currently receiving ertapenem IV for endocarditis.? Patient reported dry cough and bilateral leg swelling.? He does not use oxygen at home but does use a CPAP machine at bed.? Denies headache, visual changes, chest pain.? Laboratory values in the ED reveal no evidence of leukocytosis or severe anemia.? Platelet count 126.? D-dimer is 2355 ; electrolytes unremarkable, creatinine 1.0 with a GFR of 78.49.? Magnesium 1.6,repleted in the ED; bilirubin of 3.3, alk phosphatase of 213, patient with known cirrhosis, denies any abdominal pain, patient does have historically elevated LFTs.? Troponin less than 50, BNP 1579.? COVID, flu, RSV negative. Chest x-ray reveals pulmonary venous hypertension, bordering on interstitial pulmonary edema.?He? received 80mg of IV Lasix in the ED given his elevated BNP. CTA revealed no evidence of acute PE.? There is an area of infiltrate in the lateral aspect of the right upper lobe, moderate bilateral pleural effusions, right slightly larger than the left with associated atelectasis.? Bilateral hilar adenopathy.? 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 Delta troponin is less than 50. Upon trial ambulation in the ED the patient reported dyspnea with exertion, O2 sat drops as low as 82%.? He was seen here in the ED on 11/08/22 for a fall and was discharged to home.? He has home health PT/OT services currently. He will continue with previous home health along with added [employer]. See Diagnosis ? Home Meds and New Rx's Prescriptions: New carvedilol 3.125 mg Tablet 3.125 mg PO BID Qty: 60 0RF Continued venlafaxine 150 mg Capsule,Extended Release 24hr 150 mg PO DAILY spironolactone 25 mg Tablet 25 mg PO DAILY prazosin 5 mg Capsule 10 mg PO QHS pantoprazole 40 mg Tablet,Delayed Release (Dr/Ec) 40 mg PO DAILY metformin 1,000 mg Tablet 1,000 mg PO BID levothyroxine 200 mcg Tablet 200 mcg PO DAILY furosemide [Lasix] 20 mg Tablet 20 mg PO DAILY valsartan 40 mg Tablet 40 mg PO BID pregabalin 50 mg Capsule 50 mg PO BID acetaminophen [Tylenol] 325 mg Capsule 650 mg PO Q6H MDD 3000 PRN Eliquis 5 mg Tablet 5 mg PO BID Jardiance 25 mg Tablet 25 mg PO DAILY tamsulosin 0.4 mg Capsule 0.4 mg PO DAILY ertapenem 1 gram Recon Soln 1 g IV DAILY Rx Instructions: end date 12/03/22. Discontinued carvedilol 6.25 mg Tablet 6.25 mg PO BID Rx Instructions: must administer with a meal/food Discharge Instructions Instructions: Heart Failure (DC), Hypoxia (ED) Additional Instructions: To monitor your own fluid status: 1) Weigh yourself daily 2) Weigh yourself at the same time every day ? before breakfast is best. 3) Use the same scale all the time 4) Wear the same amount of clothes when you weigh yourself 5) Empty your bladder before weighing 6) Record your weight on a daily record 7) The weight at which there is just a little bit of swelling in the ankles at the end of the day is your ideal weight-try and maintain it 8) When taking diuretics avoid drinking too much in the way of fluids, even if your mouth is dry and you feel thirsty. This could counter the effect of the diuretic and dilute the body?s salts causing weakness and confusion. 9) You should drink no more than 2000 ml (8 glasses or cups) of fluid per day 10) If your weight goes up by more than 2-3 pounds (1.0 kg) in one day or by 5 pounds (2.5 kg) over a week take an extra lasix and call your PCP. Stand Alone Forms: Nursing Discharge Form Referrals: Osmar Carver [Primary Care Provider] - Activity:: Activity as Tolerated Equipment/Supplies:: No Equipment Needed Diet:: Low Sodium Discharge Orders Discharge Orders: Discharge Order (Routine); Ordered 12/02/22 Ordered By: Aftab Kim DS: Summary Time Spent with Patient providing and/or coordinating discharge services: Greater than 30 minutes Status at Discharge Functional status at discharge: independent ambulation Overall status at discharge: patient is progressing back to baseline Mental Status: mental status grossly normal Speech and Movement: speech and movement normal Mood: congruent mood Affect: normal affect Exam Narrative Exam Narrative: Awake, alert, lying in bed. Conversant. On Room air. Const General: cooperative, comfortable and no acute distress Orientation: alert, awake and oriented x3 HENMT Head: normal to inspection, normocephalic and atraumatic Face and sinus: normal facial exam Mouth: moist mucous membranes Eyes General: appearance normal, both eyes and all related structures Sclera: sclerae normal Neck Neck: normal visual inspection, full ROM and no JVD Resp Effort & Inspection: normal respiratory effort, able to speak in complete sentences and other Auscultation: diminished lung sounds bilaterally in the lower lung mendez Cardio Rate: regular rate Rhythm: regular rhythm Heart Sounds: S1 normal and S2 normal GI Inspection: non-distended and other (Colostomy bag present) Palpation: soft, not firm, no guarding and nontender Auscultation: normal bowel sounds Back/Spine/Pelvis Back: No back tenderness Skin General skin exam: no rashes or lesions noted Neuro General: moves all extremities and no focal motor deficits Cognition: normal cognition Speech: speech normal Extrem General: full ROM, capillary refill normal, no calf tenderness and pedal edema bilaterally non-pitting Psych Appearance: grossly normal Mental Status: mental status grossly normal Speech and Movement: speech and movement normal Mood: congruent mood Affect: normal affect DS: Data Vitals/I&O Vitals and I&O: Vital Signs Temperature 36.7 C 12/02/22 11:15 Temperature Source Tympanic 12/02/22 11:15 Pulse 58 L 12/02/22 11:15 Pulse Rhythm Regular 12/02/22 07:10 Pulse 70 11/29/22 17:50 Respiratory Rate 17 12/02/22 11:15 Respiratory Effort Non-Labored 12/02/22 07:10 Respiratory Depth Normal 12/02/22 07:10 Respiratory Pattern Normal 12/02/22 07:10 Blood Pressure 119/63 12/02/22 11:15 Blood Pressure Mean 113 11/29/22 17:46 Blood Pressure Position Sitting 11/29/22 11:08 Pulse Oximetry 94 12/02/22 11:15 Oxygen Delivery Method Nasal Cannula 12/02/22 11:15 Oxygen Flow Rate 1 12/02/22 11:15 Fraction of Inspired Oxygen (FIO2) 30 12/01/22 08:43 Pain Level 0 12/02/22 11:15 Comment 12/02/22 07:29 Intake & Output 12/01/22 12/02/22 12/02/22 23:59 11:59 23:59 Intake Total 590 / 590 Output Total 1900 / 3570 550 / 550 Balance -1310 / -2980 -550 / -550 Weight 101.8 kg Intake: IV 50 / 50 Oral 540 / 540 Output: Urine 1900 / 3570 550 / 550 Other: Urine Color Yellow Light Mady Urine Appearance Clear Clear Urine Odor None None Voiding Methods Urinal Urinal Data Completed and Pending Labs on day of discharge: Labs from last 24 hours 12/02/22 12/01/22 05:50 17:40 Sodium 142 Potassium 3.6 Chloride 105 Carbon Dioxide 30.5 Anion Gap 6.5 BUN 21 H Creatinine 1.3 Est GFR (CKD-EPI 2020) 57.29 Glucose 131 H Calcium 8.4 L Magnesium 2.0 Troponin I < 50 PFSH All Active Problems Pleural effusion (Acute) Confusion (Acute) Colon cancer (Chronic) Pulmonary edema (Acute) Depression (Chronic) Discharge planning issues (Acute) DVT prophylaxis (Acute) Endocarditis (Acute) Non-insulin dependent type 2 diabetes mellitus (Acute) Incontinence (Acute) Hypertension (Chronic) Scleral icterus (Acute) Fall (Acute) CHF (congestive heart failure) (Acute) Social History Smoking/Tobacco Use Status: Former Tobacco Use Smoking risk assessment performed?: Yes Alcohol Intake: former Drug use: Never Substance use type: does not use Do you feel safe at home: Yes Do you feel safe in your relationship?: Yes Time Spent with Patient Time Spent with Patient: 45-69 minutes Time was spent: preparing to see the patient(eg.review tests), obtaining and/or reviewing separately otained hiistory, referring, communicating with other [facility] critical care transport nurse and counseling the patient
[2022-12-02] MEDS: ERTAPENEM 1 GM in Normal Saline 50 ML IVPB (14:13)
--- NOTE | 2022-12-02 14:24 | PDOC.CMDIS ---
- If Service Date Differs Date of service: 12/02/22 Time of Service: 14:24 LACE Index Scoring Tool - Questions: Length of Stay (in days): 3 Acuity (Admit via E.D.?): Yes Comorbidities: Congestive Heart Failure, Any Tumor E.D. Visits: 2 - Answers: Total Score: 13 Risk of Readmission: High Risk Care Management Discharge Reason for Hospitalization: CHF, acute respiratory failure Discharge Plan: Osmar will return home when ready per MD. He will resume [facility] [place] [facility] P#[phone]) CM reviewed discharge plan. Osmar will resume [facility] supports and transport home via private vehicle with [facility]. Patient/Family Education Needs: Review discharge instructions, discuss Ask Me Three. Services Needed at Discharge: Home Health Care Services (Resumption PT/OT add [employer]), Transportation ([facility])
== END 2022-12-02 15:10 | disposition home health service (06) | DRG 291 ==
LOC: ER 17:41 → MS 18:05
PROVIDERS: Family Medicine; Nurse Practitioner Family; Physician Assistant; Admitting Provider Internal Medicine; Emergency Provider Physician Assistant; PCP Student in an Organized Health Care Education/Training Program; Visit Provider Internal Medicine
DX: I11.0 Hypertensive heart disease with heart failure (principal); I33.9 Acute and subacute endocarditis, unspecified; I50.9 Heart failure, unspecified; K74.60 Unspecified cirrhosis of liver; E11.9 Type 2 diabetes mellitus without complications; R32 Unspecified urinary incontinence; F32.A Depression, unspecified; R29.6 Repeated falls; Z93.3 Colostomy status; Z85.038 Personal history of other malignant neoplasm of large intestine; Z79.84 Long term (current) use of oral hypoglycemic drugs; Z90.49 Acquired absence of other specified parts of digestive tract
CPT/HCPCS: 36415; 71275; 76604; 80048; 80053; 80076; 84145; 87637; 93005; 93308; 94618; 96365; 96366; 96367; 96375; 97116; 97162; 97530; 99285; 71045; 73030; 82140; 83735; 83880; 84484; 85025; 85379; 85610; 85730; 93010; 93306; 94660; 99222; 99232; 99233; 99239; J1335; J1940; J3475; J3490

== ENCOUNTER 2022-12-03 13:00 | Outpatient (RCR) | payer OTHER, SELFPAY ==
[2022-11-27 00:09] VITALS: BP 184/73; PULSE 59; RESP 32; TEMP 37.1
[2022-11-27] MEDS: ERTAPENEM 1 GM in Normal Saline 50 ML IVPB (13:10)
[2022-11-27] MEDS: Normal Saline Flush 10 ML SYR IVP (13:11)
[2022-11-27 13:24] LABS: HCT 34.3 % (40.0-50.0); HGB 11.3 g/dL (13.5-17.5); MCH 29.3 pg (27.0-33.0); MCHC 32.9 % (32.0-36.0); MPV 11.2 fL (8.0-11.0); Platelet Count 85 10^3/uL (130-400); RBC 3.86 10^6/uL (4.36-5.78); RDW-SD 48.9 fL; WBC 4.02 10^3/uL (4.4-10.8)
[2022-11-27 13:41] LABS: ALT 13 U/L (16-63); AST 34 U/L (15-37); Albumin 2.2 g/dL (3.4-5.0); Alkaline Phosphatase 174 U/L (46-116); Anion Gap 6.9 mmol/L (3-11); BUN 8 mg/dL (7-18); Bilirubin, Total 1.7 mg/dL (0.2-1.0); C-Reactive Protein 0.67 mg/dL (0.0-0.3); CO2 24.1 mmol/L (21.0-32.0); CREATININE 0.8 mg/dL (0.70-1.30); Calcium 7.2 mg/dL (8.5-10.1); Chloride 113 mmol/L (98-107); Estimated GFR 92.29 (mL/min/1.73m2); Glucose 126 mg/dL (74-106); Potassium 3.2 mmol/L (3.5-5.1); Sodium 144 mmol/L (136-145); Total Protein 5.2 g/dL (6.4-8.2)
[2022-11-27 13:52] LABS: MCV 89 fL (80-95)
[2022-11-28] MEDS: ERTAPENEM 1 GM in Normal Saline 50 ML IVPB (13:05)
[2022-11-28] MEDS: Normal Saline Flush 10 ML SYR IVP (13:06)
[2022-12-03] MEDS: Normal Saline Flush 10 ML SYR IVP (12:10)
[2022-12-03] MEDS: ERTAPENEM 1 GM in Normal Saline 50 ML IVPB (12:10)
[2022-12-03] MEDS: Bacitracin 1 PACKET (12:13)
== END 2022-12-24 23:59 | disposition home or self-care (01) ==
LOC: INF 13:00
PROVIDERS: PCP Student in an Organized Health Care Education/Training Program; Visit Provider Family Medicine
DX: I38 Endocarditis, valve unspecified (principal)
CPT/HCPCS: 36592; 80053; 85027; 96365; 86140; J1335

== ENCOUNTER 2022-12-08 05:00 | Inpatient (IN) | payer OTHER, SELFPAY ==
[2022-12-08] VITALS (60 sets, daily range): BP systolic 135–185; BP diastolic 46–71; PULSE 55–81; RESP 11–26; TEMP 36.8–37.1; O2SAT 89–99
--- NOTE | 2022-12-08 05:00 | RT.EKG_ITS ---
APPROVED REPORT Exam: Resting ECG Reason for Exam: abdominal pain Patient Location: E HR:58 bpm ECG Measurements Heart Rate 58 AXIS NE 237 P 43 QRSd 118 QRS 25 QT 464 T 90 QTc 458 Conclusion Sinus bradycardia...rate< 60 Ventricular bigeminy...bigeminy string>4 w/ V complexes Prolonged NE interval...NE >220, V-rate 50- 90 Incomplete left bundle branch block...QRSd>110mS, terminal axis(-90,-1)
--- NOTE | 2022-12-08 05:17 | W.ED.GENAD ---
Discharge Plan Disposition Patient Disposition: Admit to [facility] Condition: Stable Condition: Stable Discharge Details Chief Complaint: Abd Prob Clinical Impression: Abdominal pain, Partial small bowel obstruction Primary Care Provider: Osmar Carver ED Provider: Js Johns Home Meds and New Rx's Prescriptions: Continued venlafaxine 150 mg Capsule,Extended Release 24hr 150 mg PO DAILY spironolactone 25 mg Tablet 25 mg PO DAILY prazosin 5 mg Capsule 10 mg PO QHS pantoprazole 40 mg Tablet,Delayed Release (Dr/Ec) 40 mg PO DAILY metformin 1,000 mg Tablet 1,000 mg PO BID levothyroxine 200 mcg Tablet 200 mcg PO DAILY furosemide [Lasix] 20 mg Tablet 20 mg PO DAILY valsartan 40 mg Tablet 40 mg PO BID pregabalin 50 mg Capsule 50 mg PO BID acetaminophen [Tylenol] 325 mg Capsule 650 mg PO Q6H MDD 3000 PRN Eliquis 5 mg Tablet 5 mg PO BID Jardiance 25 mg Tablet 25 mg PO DAILY tamsulosin 0.4 mg Capsule 0.4 mg PO DAILY ertapenem 1 gram Recon Soln 1 g IV DAILY Rx Instructions: end date 12/03/22. carvedilol 3.125 mg Tablet 3.125 mg PO BID Qty: 60 0RF Medical Decision Making <Kevin Morrissey MD - Last Filed: 12/08/22 07:47> 77 yo male with hx of prior colon cancer and prior sbo's, currently getting antibiotics for possible endocarditis after found to have vegetations on echo, comes in with abdominal pain, n/v that started this morning. He states yesterday he had no pain. HE was recently admitted for a chf exacerbation, he denies having any dyspnea or chest pain. He arrives stable speaking clearly. He is tender and has a distended abdomen with an ostomy bag present with no stool in it. HE has clear lung sounds, no jvd. I suspect sbo, will obtain cbc, cmp, lipase, and obtain ct abd/pelvis labs unremarkable, no vomiting since being here, still has mid abdominal pain. CT per vrad shows chronic partial, high grade small bowel with possible acute obstruction. Will consult general surgery. Differential Diagnosis Differential Diagnosis: sbo, pancreatitis, ileus Medical Records Medical records reviewed: Yes I reviewed the patient's medical records. Lab Data Lab results reviewed: Yes I reviewed the patient's lab results. ECG Data Attestation: I personally reviewed and interpreted this ECG (s) as follows: Prior ECG tracings: available for review Interpretation: sinus bradycardia, rate of 58, pr 237, no stemi, pvc's <Js Johns, - Last Filed: 12/08/22 09:15> 77 yo male with hx of prior colon cancer and prior sbo's, currently getting antibiotics for possible endocarditis after found to have vegetations on echo, comes in with abdominal pain, n/v that started this morning. He states yesterday he had no pain. HE was recently admitted for a chf exacerbation, he denies having any dyspnea or chest pain. He arrives stable speaking clearly. He is tender and has a distended abdomen with an ostomy bag present with no stool in it. HE has clear lung sounds, no jvd. I suspect sbo, will obtain cbc, cmp, lipase, and obtain ct abd/pelvis labs unremarkable, no vomiting since being here, still has mid abdominal pain. CT per vrad shows chronic partial, high grade small bowel with possible acute obstruction. Will consult general surgery. Dr. Johns's documentation: 9:12 AM Patient was signed out to me by my colleague Dr. Morrissey. Please refer to HPI, physical exam, assessment and plan. At time of signout we were awaiting callback from surgery. Surgery/Dr. Barry's contacted us. She feels that it is more likely an ileus, and not yet a severe small bowel obstruction. She does agree with the need for admission. However with the patient's multiple medical comorbidities she did request discussion with the hospitalist medicine team. I discussed the case with Dr. Alberts, she agrees to accept the patient as consult and manage the medical components. I did relay this to Dr. Barry. She agrees. Patient will be admitted. We will hold off on NG tube for the time being. Repeat physical exam at time of transition and admission demonstrates a slightly distended abdomen, mild tenderness in the right lower quadrant. No evidence of an acute surgical abdomen currently. Patient's nausea has notably improved. He was initially nauseous and vomiting when he came in, but he has not vomited since. We will hold off on NG tube at this time after discussion with Dr. Barry. I will place admission orders on her behalf. I have extensively reviewed the treatment plan with the patient. I have addressed all patient concerns at this time. I have also discussed the plan with the admitting physician and they agree with the current assessment and plan and have agreed to assume responsibility for the patient. All parties demonstrate verbal understanding and agreement with our assessment and plan at this time. The documentation in this chart was dictated using [employer]bit dictation software. Please excuse any dictation errors. FINDINGS: Lungs: Small focal consolidation of the posterior left lung base. Heart: Cardiomegaly. Mediastinal space: Mild circumferential wall thickening of the distal esophagus. Liver: Cirrhotic liver. Unchanged 7 mm hypodensity in the left hepatic lobe (series 4, image 23. Status post TIPS. Gallbladder and bile ducts: Nonspecific gallbladder wall thickening. No calcified stones. No biliary ductal dilation. Pancreas: More conspicuous than on comparison is a 15 mm cystic lesion of the uncinate with rim calcification (series 4, image 48). Pancreas otherwise unremarkable. Spleen: Splenomegaly, 14 cm craniocaudad. Adrenal glands: Normal. No mass. Kidneys and ureters: Small left renal cyst. No hydronephrosis. Stomach and bowel: Stomach is unremarkable. The small bowel is somewhat diffusely dilated with fecalized contents. In the low midline abdomen/pelvis, just above the dome of the urinary bladder the small bowel is seen tapering, with the distal small bowel appearing relatively decompressed, though there is fluid within the distal small bowel and stool within the residual colon. Patient is status post partial left hemicolectomy with left lower quadrant ostomy. Appendix: No evidence of appendicitis. Intraperitoneal space: No free air. No significant fluid collection. Vasculature: Atherosclerosis. No abdominal aortic aneurysm. Lymph nodes: No enlarged lymph nodes. Urinary bladder: A small volume of air is present in the lumen of urinary bladder, likely indicating recent instrumentation or urethral orifice manipulation. Reproductive: Unremarkable as visualized. Bones/joints: Degenerative changes of the spine and hips. Soft tissues: Bilateral fat containing inguinal hernias. Midline laparotomy scar with small right appearance since normal fat containing hernia. IMPRESSION: 1. Likely chronic partial, high-grade small-bowel obstruction related to adhesions in the low midline abdomen/pelvis. Superimposed acute obstruction is not entirely excluded. Recommend surgical consultation. 2. Cirrhosis and with sequela of portal hypertension. Status post tips without ascites. 3. Focal consolidation of the posterior left lung base, suspicious for pneumonia. 4. A small volume of air is present in the lumen of urinary bladder, likely indicating recent instrumentation or urethral orifice manipulation. Thank you for allowing us to participate in the care of your patient. Dictated and Authenticated by: Linda Aquino MD 12/08/2022 7:40 AM Eastern Time ([place] & [place]) IMPRESSION: 1. Mild cardiomegaly with pulmonary vascular prominence, suspicious for mild CHF exacerbation. 2. Streaky left lung base opacity, differential includes pneumonia, atelectasis, or aspiration. Thank you for allowing us to participate in the care of your patient. Dictated and Authenticated by: Linda Aquino MD 12/08/2022 8:29 AM Eastern Time ([place] & [place]) HPI <Kevin Morrissey MD - Last Filed: 12/08/22 07:47> General Mode of arrival: EMS. Date/Time Provider Initiated Documentation: 12/08/22 05:12. Limitations to Documentation: no limitations. Information obtained by: patient. History of Present Illness 77 year old M presents to the emergency department with the chief complaint of abdominal pain, described as severe, with intensity rated at 8. Quality is described as sharp, and is localized to the abdomen. Patient reports no radiation. Patient started experiencing this hour(s) (2) and it has been constant. No relieving factors improve symptom(s), Patient notes nausea/vomiting. Patient did receive the following treatments prior to arrival, none Related Data Home Medications Medication Instructions Recorded Confirmed acetaminophen 325 mg capsule 650 mg PO Q6H PRN 11/08/22 11/30/22 (Tylenol) apixaban 5 mg tablet (Eliquis) 5 mg PO BID 11/08/22 11/29/22 empagliflozin 25 mg tablet 25 mg PO DAILY 11/08/22 11/29/22 (Jardiance) furosemide 20 mg tablet (Lasix) 20 mg PO DAILY 11/08/22 11/29/22 levothyroxine 200 mcg tablet 200 mcg PO DAILY 11/08/22 11/29/22 metformin 1,000 mg tablet 1,000 mg PO BID 11/08/22 11/29/22 pantoprazole 40 mg tablet,delayed 40 mg PO DAILY 11/08/22 11/29/22 release prazosin 5 mg capsule 10 mg PO QHS 11/08/22 11/29/22 pregabalin 50 mg capsule 50 mg PO BID 11/08/22 11/29/22 spironolactone 25 mg tablet 25 mg PO DAILY 11/08/22 11/29/22 valsartan 40 mg tablet 40 mg PO BID 11/08/22 11/29/22 venlafaxine 150 mg 150 mg PO DAILY 11/08/22 11/29/22 capsule,extended release 24 hr ertapenem 1 gram intravenous 1 g IV DAILY 11/29/22 11/29/22 solution tamsulosin 0.4 mg capsule 0.4 mg PO DAILY 11/29/22 11/29/22 carvedilol 3.125 mg tablet 3.125 mg PO BID #60 tabs 12/02/22 Previous Rx's Medication Instructions Recorded carvedilol 3.125 mg tablet 3.125 mg PO BID #60 tabs 12/02/22 Allergies Allergy/AdvReac Type Severity Reaction Status Date / Time Penicillins Allergy Mild Itching Unverified 12/08/22 05:10 morphine AdvReac Severe vomiting Unverified 12/08/22 05:10 mussels AdvReac Severe vomiting Unverified 12/08/22 05:10 General Stated Complaint: Abd Prob ANNA: 3 Review of Systems <Kevin Morrissey MD - Last Filed: 12/08/22 07:47> All systems reviewed & are unremarkable except as noted in HPI and below Constitutional Constitutional: Denies chills, Denies fever(s) and Denies weakness Cardiovascular Cardiovascular: Denies chest pain and Denies dyspnea Respiratory Respiratory: Denies cough and Denies dyspnea Musculoskeletal Musculoskeletal: Denies joint swelling Integumentary/Breasts Skin/Breast: Denies rash Neurologic Neurologic: Denies weakness PFS <Kevin Morrissey MD - Last Filed: 12/08/22 07:47> All Active Problems (Updated 12/08/22 @ 09:15 by Js Johns DO) Abdominal pain (Acute) Partial small bowel obstruction (Acute) Confusion (Acute) Colon cancer (Chronic) Depression (Chronic) Endocarditis (Acute) Non-insulin dependent type 2 diabetes mellitus (Acute) Incontinence (Acute) Hypertension (Chronic) Scleral icterus (Acute) CHF (congestive heart failure) (Acute) Social History Smoking/Tobacco Use Status: Former Tobacco Use Smoking risk assessment performed?: Yes Alcohol Intake: former Drug use: Never Substance use type: does not use Do you feel safe at home: Yes Do you feel safe in your relationship?: Yes Exam <Kevin Morrissey MD - Last Filed: 12/08/22 07:47> Const General: no acute distress Orientation: alert [facility] Head: normal to inspection Ears: external ears normal General nose exam: external nose normal Mouth: moist mucous membranes Eyes General: appearance normal, both eyes and all related structures Neck Neck: normal visual inspection Resp Effort & Inspection: normal respiratory effort and able to speak in complete sentences Cardio Rate: regular rate GI Palpation: tender Skin General skin exam: no rashes or lesions noted Neuro General: patient alert and patient oriented x3 Extrem General: normal to inspection Psych Mental Status: mental status grossly normal Course <Kevin Morrissey MD - Last Filed: 12/08/22 07:47> Vital Signs Vital signs: Vital Signs Temperature 36.8 C 12/08/22 05:02 Pulse 66 12/08/22 05:02 Respiratory Rate 16 12/08/22 05:02 Blood Pressure 185/51 H 12/08/22 05:02 Pulse Oximetry 92 12/08/22 05:02 Temperature 36.8 C 12/08/22 05:02 Temperature Source Oral 12/08/22 05:02 Pulse 66 12/08/22 05:02 Respiratory Rate 16 12/08/22 05:02 Respiratory Effort Normal 12/08/22 05:06 Blood Pressure 185/51 H 12/08/22 05:02 Blood Pressure Position Supine 12/08/22 05:02 Pulse Oximetry 92 12/08/22 05:02 Oxygen Delivery Method Room Air 12/08/22 05:02 Oxygen Flow Rate 0 12/08/22 05:02 Pain Level 8 12/08/22 05:02 Sign Out <Kevin Morrissey MD - Last Filed: 12/08/22 07:47> Sign Out Data: Sign Out Comment: history colon cancer with ostomy, came in for abdominal pain and one episode of vomiting. CT shows chronic and likely acute sbo, pending surgery consult Last updated by Kevin Morrissey MD at 12/08/22 07:50
[2022-12-08 05:19] LABS: Source Nasal/Nares
[2022-12-08 05:22] LABS: Abs Immature Grans 0.01 10^3/uL (0.0-0.06); Absolute Basophil Count 0.02 10^3/uL (0.0-0.2); Absolute Eosinophil Count 0.17 10^3/uL (0.0-0.7); Absolute Lymphocyte Count 0.52 10^3/uL (1.2-3.4); Absolute Monocyte Count 0.39 10^3/uL (0.1-0.8); Absolute Neutrophil Count 4.13 10^3/uL (1.2-6.7); Basophils % 0.4; Eosinophils % 3.2; HCT 38.5 % (40.0-50.0); HGB 12.7 g/dL (13.5-17.5); Immature Grans % 0.2; Lymphocytes % 9.9; MCH 28.8 pg (27.0-33.0); MCV 87 fL (80-95); MPV 10.7 fL (8.0-11.0); Monocytes % 7.4; Neutrophils % 78.9; RBC 4.41 10^6/uL (4.36-5.78); RDW 14.4 % (11.8-14.1); RDW-SD 46.3 fL; WBC 5.24 10^3/uL (4.4-10.8)
[2022-12-08] MEDS: fentaNYL 100 MCG/2 ML VIAL IVP ×2 (05:30→07:53)
[2022-12-08 05:37] LABS: Platelet Count 90 10^3/uL (130-400)
[2022-12-08 05:51] LABS: INR 1.1 (0.9-1.1); PTT Activated 27.6 sec (21.5-31.9)
[2022-12-08 05:54] LABS: COVID-19 PCR Negative (Negative)
[2022-12-08 05:58] LABS: ALT 18 U/L (16-63); AST 42 U/L (15-37); Albumin 3.1 g/dL (3.4-5.0); Alkaline Phosphatase 190 U/L (46-116); Anion Gap 11.1 mmol/L (3-11); BUN 11 mg/dL (7-18); Bilirubin, Total 2.1 mg/dL (0.2-1.0); CO2 24.9 mmol/L (21.0-32.0); CREATININE 1.1 mg/dL (0.70-1.30); Calcium 9.4 mg/dL (8.5-10.1); Chloride 108 mmol/L (98-107); Estimated GFR 70.01 (mL/min/1.73m2); Glucose 199 mg/dL (74-106); Lipase 65 U/L (16-77); Magnesium 1.8 mg/dL (1.8-2.4); Potassium 4.1 mmol/L (3.5-5.1); Sodium 144 mmol/L (136-145); Total Protein 6.8 g/dL (6.4-8.2); Troponin I < 50 ng/L (<or=60)
[2022-12-08] MEDS: Normal Saline - Diluent 50 ML VIAL IJ (07:16)
[2022-12-08] MEDS: Omnipaque 350 MG/ML 100 ML BTL IJ (07:17)
--- NOTE | 2022-12-08 07:17 | DI.CT_ITS ---
Exam(s) CT ABDOMEN PELVIS W EXAM: CT ABDOMEN PELVIS W CLINICAL HISTORY: abdominal pain, ?sbo. TECHNIQUE: Imaging Protocol: Axial computed tomography images with coronal and sagittal reformatted images were created and reviewed CONTRAST MATERIAL: Intravenous: Omnipaque-350 100cc Oral: None COMPARISON: CT CT CHEST PE CTA from 11/29/2022 FINDINGS: VISUALIZED LUNG BASES: No nodules nor pleural effusions evident. ABDOMEN: There is no ascites. LIVER: The appearance of the liver is cirrhotic and there is a TIPS shunt in place which extends from the distal aspect of the main portal vein to the right systemic a patent vein. It appears patent. There are no obvious dilated intrahepatic ducts. Few small hypodensities which are probably small c ysts are noted in the liver. GALLBLADDER/BILIARY: No obvious acute gallbladder pathology. CBD is not dilated. PANCREAS: Calcification noted in the pancreatic head. No mass nor dilatation of the pancreatic duct evident. SPLEEN: Splenomegaly noted. No discrete splenic masses. Splenic and portal veins are patent. ADRENALS: There are no significant adrenal masses. KIDNEYS:No cysts evident. No solid renal masses. No calculi nor hydronephrosis.. ABDOMINAL AORTA: Calcified but not enlarged. LYMPH NODES:Left-sided colostomy noted ABDOMINAL WALL: Left-sided colostomy noted. GI: Somewhat dilated bowel loops which appear fecalized. PELVIS: GI: No evidence of appendicitis.No evidence of sigmoid diverticulitis. LYMPH NODES: There is no intrapelvic nor inguinal adenopathy. REPRODUCTIVE: Prostate size normal. URINARY BLADDER: There is some air in the urinary bladder. Either related to instrumentation or fist ulous communication from prior infectious process in adjacent bowel loop. OSSEOUS: No fractures and no significant osseous lesions. IMPRESSION: 1. Left-sided colostomy (partial left colectomy) with dilated and fecalized small bowel loops with tr ansition point in the mid pelvis region. No free air. No ascites. 2. Cirrhosis with TIPS shunt. Splenomegaly. No ascites. 4. Air in the urinary bladder which is either from prior instrumentation or for fistulous communicati on to bowel from prior inflammatory process. RADIATION DOSE DELIVERED: 1,337.26mGy.cm Total DLP DATA REPOSITORY: All CT scans at this facility are submitted to the National Radiology Data Registry (NRDR) Dose Index Registry (DIR) with the [employer] (A[employer]). RADIATION OPTIMIZATION: All CT scans at this facility use at least one of these dose optimization te chniques: automated exposure control; mA and/or kV adjustment per patient size (includes targeted exa ms where dose is matched to clinical indication); or iterative reconstruction.
--- NOTE | 2022-12-08 07:30 | DI.RAD_ITS ---
Exam(s) XR PORTABLE CHEST AP EXAM: XR PORTABLE CHEST AP CLINICAL HISTORY: ?pneumonia. TECHNIQUE: 2D digital imaging was performed. COMPARISON: CR XR PORTABLE CHEST AP from 11/29/2022 FINDINGS: Single AP portable view. Cardiomegaly noted, unchanged. Mediastinum not widened. Lungs are clear. No infiltrates nor obvious pleural effusions. No pulmonary edema at this time. No pneumothorax. IMPRESSION: No acute pulmonary findings on this single AP portable view of the chest.Cardiomegaly again noted. DATA REPOSITORY: RADIATION DOSE DELIVERED:
--- NOTE | 2022-12-08 07:40 | DI.VRAD_ITS ---
Addendum created by Linda Aquino MD on 12/08/2022 7:43:31 AM EST: THIS REPORT CONTAINS FINDINGS THAT MAY BE CRITICAL TO PATIENT CARE. The findings were verbally communicated via telephone conference at 7:43 AM EST on 12/08/2022 with Kevin Poon. The findings were acknowledged and understood. Initial report created on 12/08/2022 7:40:15 AM EST: PROCEDURE INFORMATION: Exam: CT Abdomen And Pelvis With Contrast Exam date and time: 12/08/2022 7:01 AM Age: 77 years old Clinical indication: Abdominal pain; Generalized TECHNIQUE: Imaging protocol: Computed tomography of the abdomen and pelvis with contrast. Contrast material: OMNI 350; Contrast volume: 100 ml; Contrast route: INTRAVENOUS (IV); COMPARISON: CT ABDOMEN PELVIS WO 11/08/2022 12:13 PM FINDINGS: Lungs: Small focal consolidation of the posterior left lung base. Heart: Cardiomegaly. Mediastinal space: Mild circumferential wall thickening of the distal esophagus. Liver: Cirrhotic liver. Unchanged 7 mm hypodensity in the left hepatic lobe (series 4, image 23. Status post TIPS. Gallbladder and bile ducts: Nonspecific gallbladder wall thickening. No calcified stones. No biliary ductal dilation. Pancreas: More conspicuous than on comparison is a 15 mm cystic lesion of the uncinate with rim calcification (series 4, image 48). Pancreas otherwise unremarkable. Spleen: Splenomegaly, 14 cm craniocaudad. Adrenal glands: Normal. No mass. Kidneys and ureters: Small left renal cyst. No hydronephrosis. Stomach and bowel: Stomach is unremarkable. The small bowel is somewhat diffusely dilated with fecalized contents. In the low midline abdomen/pelvis, just above the dome of the urinary bladder the small bowel is seen tapering, with the distal small bowel appearing relatively decompressed, though there is fluid within the distal small bowel and stool within the residual colon. Patient is status post partial left hemicolectomy with left lower quadrant ostomy. Appendix: No evidence of appendicitis. Intraperitoneal space: No free air. No significant fluid collection. Vasculature: Atherosclerosis. No abdominal aortic aneurysm. Lymph nodes: No enlarged lymph nodes. Urinary bladder: A small volume of air is present in the lumen of urinary bladder, likely indicating recent instrumentation or urethral orifice manipulation. Reproductive: Unremarkable as visualized. Bones/joints: Degenerative changes of the spine and hips. Soft tissues: Bilateral fat containing inguinal hernias. Midline laparotomy scar with small right appearance since normal fat containing hernia. IMPRESSION: 1. Likely chronic partial, high-grade small-bowel obstruction related to adhesions in the low midline abdomen/pelvis. Superimposed acute obstruction is not entirely excluded. Recommend surgical consultation. 2. Cirrhosis and with sequela of portal hypertension. Status post tips without ascites. 3. Focal consolidation of the posterior left lung base, suspicious for pneumonia. 4. A small volume of air is present in the lumen of urinary bladder, likely indicating recent instrumentation or urethral orifice manipulation. Dictated and Authenticated by: Linda Aquino MD. Ordering:ZACH Brown MD
[2022-12-08 07:44] LABS: Bilirubin Negative (Negative); Blood Trace-intact (Negative); Clarity Sl Cloudy (Clear); Glucose >=1000 mg/dL (Negative); Ketones Negative (Negative); Leukocyte Esterase Negative (Negative); Nitrite Negative (Negative); Specific Gravity 1.015 (1.005-1.025); pH 5.5 (5-8)
[2022-12-08 07:57] LABS: Epithelial Cells Rare HPF (Negative); WBC 0-2 HPF (0-5)
[2022-12-08 07:58] LABS: Bacteria Rare HPF (Negative); C & S Indicated? Yes; Casts Negative LPF (Negative); Crystals Negative HPF (Negative); Mucus Negative (Negative); Other Cells Moderate Yeast (Negative)
--- NOTE | 2022-12-08 08:29 | DI.VRAD_ITS ---
PROCEDURE INFORMATION: Exam: XR Chest Exam date and time: 12/08/2022 7:46 AM Age: 77 years old Clinical indication: Other: ? Pneumonia TECHNIQUE: Imaging protocol: Radiologic exam of the chest. Views: 1 view. COMPARISON: CR XR PORTABLE CHEST AP 11/29/2022 11:32 AM FINDINGS: Lungs: Prominent pulmonary vasculature. Streaky left lung base opacities. No definite pleural effusion, though lung bases are incompletely imaged. No pneumothorax. Pleural spaces: See Lungs finding. Heart/Mediastinum: Mild cardiomegaly. Bones/joints: No acute osseous findings. IMPRESSION: 1. Mild cardiomegaly with pulmonary vascular prominence, suspicious for mild CHF exacerbation. 2. Streaky left lung base opacity, differential includes pneumonia, atelectasis, or aspiration. Dictated and Authenticated by: Linda Aquino MD. Ordering:ZACH Brown MD
[2022-12-08 09:00] LABS: Troponin I < 50 ng/L (<or=60)
--- NOTE | 2022-12-08 12:20 | W.PM.HP.N ---
Date of service: 12/08/22 Time of Service: 12:21 Assessment and Plan Assessment and plan (1) Partial small bowel obstruction: Status: Acute Assessment and plan: 77yo male with complicated medical and surgical history, presents with obstructive symptoms. He denies current nausea, and is having crampy, intermittent pain, though has bowel sounds throughout. He is not displaying peritoneal signs. We discussed that given his extensive abdominal surgical history, the plan will be for conservative management as long as he remains stable and shows signs of improvement. If he does require surgery, it may be prudent to transfer him to a higher level of care. 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 Assessment and plan: --q6 finger sticks, and insulin sliding scale --Jardiance and metformin held while NPO (3) Endocarditis: Status: Acute Assessment and plan: --According to the chart, the completion of his treatment was on 12/03/22 (4) Discharge planning issues: Status: Acute Assessment and plan: Pt's records have been requested from the [facility] Greatly appreciate Hospitalist input History of Present Illness History of Present Illness Chief Complaint: abdominal pain, decreased ostomy output Narrative: This is a 77-year-old male with a history of a proctosigmoidectomy with end colostomy approximately 30 years ago for cancer. 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 The patient reports that his surgeon recommended that he should not have another abdominal surgery. He states that since his colostomy placement he has had 30 episodes of obstructive symptoms, but has never required surgery for them. He presented early this morning with a less than 24-hour period of decreased ostomy output, and increasing abdominal discomfort. His last meal was lunch time yesterday. He awoke around 4 AM with a couple episodes of emesis which prompted him to come to the ED. He normally empties his ostomy twice daily, and the last time was early yesterday. He was discharged on 12/02 for a CHF exacerbation, and was diuresed 9+ liters. He also left on treatment for endocarditis which is now complete. Though a fairly decent historian, he is not sure why he is on Eliquis. Nor does he know why he had a TIPS for his liver disease. He denies any alcohol or smoking history for the last 30+ years. He was exposed to [employer] [place] during his time in the service. He recently moved to the area, and does not have a complete history in our EMR. At present he feels better than at preentation. He denies nausea/vomitig, is experiencing intermittent, cramping pain, and has had some minimal ostomy output. Review of Systems Constitutional Constitutional: Denies fever(s), Reports frequent falls (uses a scooter in public) and Reports poor appetite Eyes Eyes: Denies blurry vision and Denies change in vision ENT Ears, Nose, Mouth, and Throat: Denies dysphagia, Denies otalgia, Denies odynophagia and Denies sore throat Cardiovascular Cardiovascular: Denies chest pain and Denies dyspnea Respiratory Respiratory: Denies cough and Denies dyspnea Gastrointestinal Gastrointestinal: Reports abdominal pain, Reports change in bowel habits, Denies dysphagia, Denies odynophagia and Reports vomiting Genitourinary Genitourinary: Denies difficulty urinating and Denies dysuria Neurologic Neurologic: Reports frequent falls (uses a scooter in public) and Denies paresthesias Hematologic/Lymphatic Hematologic/Lymphatic: Denies easy bleeding, Denies easy bruising and Reports other (denies h/o blood clots, bleeding disorders) PFSH All Active Problems (Updated 12/08/22 @ 17:25 by Radha Alberts MD) Discharge planning issues (Acute) DVT prophylaxis (Acute) Portal hypertension (Acute) Cirrhosis (Acute) Abdominal pain (Acute) Partial small bowel obstruction (Acute) Confusion (Acute) Colon cancer (Chronic) Depression (Chronic) Endocarditis (Acute) Non-insulin dependent type 2 diabetes mellitus (Chronic) Incontinence (Acute) Hypertension (Chronic) Scleral icterus (Acute) CHF (congestive heart failure) (Chronic) Surgical History (Updated 12/08/22 @ 17:20 by Radha Alberts MD) Colostomy in place H/O left hemicolectomy S/P TIPS (transjugular intrahepatic portosystemic shunt) Social History Smoking/Tobacco Use Status: Former Tobacco Use Smoking risk assessment performed?: Yes Alcohol Intake: former Drug use: Never Substance use type: does not use Do you feel safe at home: Yes Do you feel safe in your relationship?: Yes Meds Allergies and Home Medications Allergies Allergy/AdvReac Type Severity Reaction Status Date / Time Penicillins Allergy Mild Itching Unverified 12/08/22 05:10 morphine AdvReac Severe vomiting Unverified 12/08/22 05:10 mussels AdvReac Severe vomiting Unverified 12/08/22 05:10 Home Medications Medication Instructions Recorded Confirmed Type acetaminophen 325 mg capsule 650 mg PO Q6H PRN 11/08/22 12/08/22 History (Tylenol) apixaban 5 mg tablet (Eliquis) 5 mg PO BID 11/08/22 12/08/22 History empagliflozin 25 mg tablet 25 mg PO DAILY 11/08/22 12/08/22 History (Jardiance) furosemide 20 mg tablet (Lasix) 20 mg PO DAILY 11/08/22 12/08/22 History levothyroxine 200 mcg tablet 200 mcg PO DAILY 11/08/22 12/08/22 History metformin 1,000 mg tablet 1,000 mg PO BID 11/08/22 12/08/22 History pantoprazole 40 mg tablet,delayed 40 mg PO DAILY 11/08/22 12/08/22 History release prazosin 5 mg capsule 10 mg PO QHS 11/08/22 12/08/22 History pregabalin 50 mg capsule 50 mg PO BID 11/08/22 12/08/22 History spironolactone 25 mg tablet 25 mg PO DAILY 11/08/22 12/08/22 History valsartan 40 mg tablet 40 mg PO BID 11/08/22 12/08/22 History venlafaxine 150 mg 150 mg PO DAILY 11/08/22 12/08/22 History capsule,extended release 24 hr tamsulosin 0.4 mg capsule 0.4 mg PO DAILY 11/29/22 12/08/22 History carvedilol 3.125 mg tablet 3.125 mg PO BID #60 tabs 12/02/22 12/08/22 Rx Exam Const General: cooperative, comfortable and no acute distress Nutritional Appearance: obese Orientation: alert, awake, oriented x3 and other (Though had some difficulty with aspects of his medical history) Resp Effort & Inspection: normal respiratory effort, able to speak in complete sentences, no grunting, not labored, no nasal flaring and no respiratory distress Auscultation: clear to auscultation bilaterally Cardio Rate: regular rate Rhythm: regular rhythm Heart Sounds: S1 normal, S2 normal and murmur GI Inspection: large pannus, scar and other (ostomy appliance present in left hemiabdomen) Palpation: soft, not firm, no guarding, not rigid and tender in the RLQ, suprapubicly and other (some soft formed stool present in ostomy appliance) Percussion: normal to percussion Auscultation: normal bowel sounds Extrem Right lower extremity: no edema Left lower extremity: no edema Psych Mental Status: mental status grossly normal Attitude: cooperative Insight: insight good Judgment: judgment good Results Imaging Imaging Studies: CT ABD/PEL(12/08/2022): FINDINGS: Lungs: Small focal consolidation of the posterior left lung base. Heart: Cardiomegaly. Mediastinal space: Mild circumferential wall thickening of the distal esophagus. Liver: Cirrhotic liver. Unchanged 7 mm hypodensity in the left hepatic lobe (series 4, image 23. Status post TIPS. Gallbladder and bile ducts: Nonspecific gallbladder wall thickening. No calcified stones. No biliary ductal dilation. Pancreas: More conspicuous than on comparison is a 15 mm cystic lesion of the uncinate with rim calcification (series 4, image 48). Pancreas otherwise unremarkable. Spleen: Splenomegaly, 14 cm craniocaudad. Adrenal glands: Normal. No mass. Kidneys and ureters: Small left renal cyst. No hydronephrosis. Stomach and bowel: Stomach is unremarkable. The small bowel is somewhat diffusely dilated with fecalized contents. In the low midline abdomen/pelvis, just above the dome of the urinary bladder the small bowel is seen tapering, with the distal small bowel appearing relatively decompressed, though there is fluid within the distal small bowel and stool within the residual colon. Patient is status post partial left hemicolectomy with left lower quadrant ostomy. Appendix: No evidence of appendicitis. Intraperitoneal space: No free air. No significant fluid collection. Vasculature:? Atherosclerosis.? No abdominal aortic aneurysm. Lymph nodes: No enlarged lymph nodes. Urinary bladder: A small volume of air is present in the lumen of urinary bladder, likely indicating recent instrumentation or urethral orifice manipulation. Reproductive: Unremarkable as visualized. Bones/joints: Degenerative changes of the spine and hips. Soft tissues:? Bilateral fat containing inguinal hernias.? Midline laparotomy scar with small right appearance since normal fat containing hernia. IMPRESSION: 1. Likely chronic partial, high-grade small-bowel obstruction related to adhesions in the low midline abdomen/pelvis. Superimposed acute obstruction is not entirely excluded.? Recommend surgical consultation. 2. Cirrhosis and with sequela of portal hypertension. Status post tips without ascites. 3. Focal consolidation of the posterior left lung base, suspicious for pneumonia. 4. A small volume of air is present in the lumen of urinary bladder, likely indicating recent instrumentation or urethral orifice manipulation. Labs 12/08/22 05:10 12/08/22 05:10 Labs: Laboratory Results - last 24 hr 12/08/22 12/08/22 12/08/22 05:10 05:10 05:10 WBC 5.24 RBC 4.41 Hgb 12.7 L Hct 38.5 L MCV 87 MCH 28.8 MCHC 33.0 RDW 14.4 H Plt Count 90 L MPV 10.7 Immature Gran % 0.2 Neutrophils % 78.9 Lymphocytes % 9.9 Monocytes % 7.4 Eosinophils % 3.2 Basophils % 0.4 Nucleated RBC % 0.0 Absolute Neutrophils 4.13 Absolute Lymphocytes 0.52 L Absolute Monocytes 0.39 Absolute Eosinophils 0.17 Absolute Basophils 0.02 PT INR APTT Sodium 144 Potassium 4.1 Chloride 108 H Carbon Dioxide 24.9 Anion Gap 11.1 H BUN 11 Creatinine 1.1 Est GFR (CKD-EPI 2020) 70.01 Glucose 199 H Calcium 9.4 Magnesium 1.8 Total Bilirubin 2.1 H AST 42 H ALT 18 Alkaline Phosphatase 190 H Troponin I < 50 Total Protein 6.8 Albumin 3.1 L Lipase 65 Urine Color Urine Clarity Urine pH Ur Specific [place] Urine Protein Urine Ketones Urine Blood Urine Nitrite Urine Bilirubin Urine Urobilinogen Ur Leukocyte Esterase Urine RBC Urine WBC Ur Epithelial Cells Urine Crystals Urine Bacteria Urine Casts Urine Mucus Urine Other Ur Culture Indicated? Urine Glucose COVID-19 Source Nasal/Nares SARS-CoV-2 (PCR) Negative 12/08/22 12/08/22 12/08/22 05:10 07:10 07:43 WBC RBC Hgb Hct MCV MCH MCHC RDW Plt Count MPV Immature Gran % Neutrophils % Lymphocytes % Monocytes % Eosinophils % Basophils % Nucleated RBC % Absolute Neutrophils Absolute Lymphocytes Absolute Monocytes Absolute Eosinophils Absolute Basophils PT 11.0 INR 1.1 APTT 27.6 Sodium Potassium Chloride Carbon Dioxide Anion Gap BUN Creatinine Est GFR (CKD-EPI 2020) Glucose Calcium Magnesium Total Bilirubin AST ALT Alkaline Phosphatase Troponin I Total Protein Albumin Lipase Urine Color Yellow Urine Clarity Sl Cloudy Urine pH 5.5 Ur Specific [place] 1.015 Urine Protein 30 H Urine Ketones Negative Urine Blood Trace-intact H Urine Nitrite Negative Urine Bilirubin Negative Urine Urobilinogen 1.0 H Ur Leukocyte Esterase Negative Urine RBC 5-10 H Urine WBC 0-2 Ur Epithelial Cells Rare Urine Crystals Negative Urine Bacteria Rare Urine Casts Negative Urine Mucus Negative Urine Other Moderate Yeast Ur Culture Indicated? Yes Urine Glucose >=1000 H COVID-19 Source Cancelled SARS-CoV-2 (PCR) Cancelled 12/08/22 08:00 WBC RBC Hgb Hct MCV MCH MCHC RDW Plt Count MPV Immature Gran % Neutrophils % Lymphocytes % Monocytes % Eosinophils % Basophils % Nucleated RBC % Absolute Neutrophils Absolute Lymphocytes Absolute Monocytes Absolute Eosinophils Absolute Basophils PT INR APTT Sodium Potassium Chloride Carbon Dioxide Anion Gap BUN Creatinine Est GFR (CKD-EPI 2020) Glucose Calcium Magnesium Total Bilirubin AST ALT Alkaline Phosphatase Troponin I < 50 Total Protein Albumin Lipase Urine Color Urine Clarity Urine pH Ur Specific [place] Urine Protein Urine Ketones Urine Blood Urine Nitrite Urine Bilirubin Urine Urobilinogen Ur Leukocyte Esterase Urine RBC Urine WBC Ur Epithelial Cells Urine Crystals Urine Bacteria Urine Casts Urine Mucus Urine Other Ur Culture Indicated? Urine Glucose COVID-19 Source SARS-CoV-2 (PCR) Last Vital Signs Temp 98.2 F 12/08/22 10:55 Pulse 66 12/08/22 10:55 Resp 19 12/08/22 10:55 BP 160/60 H 12/08/22 10:55 Pulse Ox 93 12/08/22 10:55 Time Spent Time spent with Patient: 55-74 minutes Time was spent: preparing to see the patient(eg.review tests), obtaining and/or reviewing separately otained hiistory, ordering medications,tests, procedures, referring, communicating with other health direct support professional caregiver, indepentently interpreting results and counseling the patient
[2022-12-08] MEDS: Normal Saline 1,000 ML 75 ML IV (13:14)
[2022-12-08] MEDS: Normal Saline Flush 10 ML SYR IVP ×3 (13:14→16:37)
[2022-12-08] MEDS: Pantoprazole 40 MG VIAL IVP (14:04)
[2022-12-08] MEDS: HYDROmorphone 2 MG/ML VIAL 0.5 MG IVP (16:37)
--- NOTE | 2022-12-08 16:59 | W.MEDCONSULT ---
Date of service: 12/08/22 Time of Service: 16:59 Assessment and Plan Assessment and plan (1) Partial small bowel obstruction: Status: Acute Assessment and plan: NPO. I am not sure about the variceal status, but given evidence of portal hypertension/cirrhosis on CT, I would be cautious about the placement of NGT. Cover with SSI while NPO. Since he is on IVF, I think it makes sense to hold diuretics for now and reassess volume status tomorrow. (2) CHF (congestive heart failure): Status: Chronic Assessment and plan: CHFrEF (50-55%) with pulmonary hypertension. As above; on IVF and NPO. Hold diuretics for now; will manage with diuretics depending on volume status. (3) Non-insulin dependent type 2 diabetes mellitus: Status: Chronic Assessment and plan: Holding metformin, jardiance. Cover with SSI (4) Endocarditis: Status: Acute Assessment and plan: Awaiting records from the [place] as to duration of therapy. Per our pharmacy records, ertopenem was supposed to finish on 12/03. (5) Hypertension: Status: Chronic Assessment and plan: Continue valsartan, prazosin. (6) DVT prophylaxis: Status: Acute Assessment and plan: On apixaban for an unclear indication - we are trying to clarify this. (7) Discharge planning issues: Status: Acute Assessment and plan: Full code. Hospitalists will continue to follow. History of Present Illness History of Present Illness Chief Complaint: Consult for general medical management Narrative: Mr Orellana is a 77 year old male with PMHx of colon cancer s/p L hemicolectomy/ostomy, prior SBO's CHFrEF (LVEF of 50-55% per echo 12/02/22; RVSP of 38 mmHg), endocarditis on ertapenem which was supposed to be finished on 12/03/22, NIDDM2, HTN, who is on apixaban, for an unclear indication, who was admitted to the surgical service for a small bowel obstruction. Hospitalists were consulted to help with management of the general medical conditions. Per patient, his abdominal pain (central/around his midline incision) started yesterday, when he also noticed a decreased ostomy output and suspected that he might have a blockage. He vomited this morning, prompting him to come to the ER. He is no longer nauseated and he has noticed that his ostomy started to have some output. He still has some abdominal pain. He is interested in trialing ice chips. He denies CP, SOB, and really does not remember why he is on blood thinners. Of note, the patient's CT abdomen shows evidence of cirrhosis with portal hypertension and TIPS procedure. There is a question of a small consolidation in LLL. Review of Systems All systems reviewed & are unremarkable except as noted in HPI and below PFSH All Active Problems (Updated 12/08/22 @ 17:25 by Radha Alberts MD) Discharge planning issues (Acute) DVT prophylaxis (Acute) Portal hypertension (Acute) Cirrhosis (Acute) Abdominal pain (Acute) Partial small bowel obstruction (Acute) Confusion (Acute) Colon cancer (Chronic) Depression (Chronic) Endocarditis (Acute) Non-insulin dependent type 2 diabetes mellitus (Chronic) Incontinence (Acute) Hypertension (Chronic) Scleral icterus (Acute) CHF (congestive heart failure) (Chronic) Surgical History (Updated 12/08/22 @ 17:20 by Radha Alberts MD) Colostomy in place H/O left hemicolectomy S/P TIPS (transjugular intrahepatic portosystemic shunt) Social History Smoking/Tobacco Use Status: Former Tobacco Use Smoking risk assessment performed?: Yes Alcohol Intake: former Drug use: Never Substance use type: does not use Do you feel safe at home: Yes Do you feel safe in your relationship?: Yes Exam Narrative Exam Narrative: General: Very pleasant male who is sitting up in bed, A&Ox3, NAD, appears comfortable Neurological: A&Ox3, no focal deficits Psychiatric: Appropriate speech pattern/content Skin: Visible skin intact HEENT: Atraumatic, normocephalic, EOMI, MMM, no lymphadenopathy, goiter, or JVD Cardiovascular: RRR, no m/r/g Lungs: CTAB Gastrointestinal: mildly distended, soft, tender to either side of his midline incision; LLQ ostomy with a small amount of output - I cannot tell the color due to it not being transparent. Genitourinary: deferred Extremities: no edema BLEs, 1+ pedal pulses B, no lesions on B feet Results Last Vital Signs Temp 36.8 C 12/08/22 13:00 Pulse 66 12/08/22 13:00 Resp 19 12/08/22 13:00 BP 160/60 H 12/08/22 13:00 Pulse Ox 93 12/08/22 13:00 Labs 12/08/22 05:10 12/08/22 05:10 Labs: Laboratory Results - last 24 hr 12/08/22 12/08/22 12/08/22 05:10 05:10 05:10 WBC 5.24 RBC 4.41 Hgb 12.7 L Hct 38.5 L MCV 87 MCH 28.8 MCHC 33.0 RDW 14.4 H Plt Count 90 L MPV 10.7 Immature Gran % 0.2 Neutrophils % 78.9 Lymphocytes % 9.9 Monocytes % 7.4 Eosinophils % 3.2 Basophils % 0.4 Nucleated RBC % 0.0 Absolute Neutrophils 4.13 Absolute Lymphocytes 0.52 L Absolute Monocytes 0.39 Absolute Eosinophils 0.17 Absolute Basophils 0.02 PT INR APTT Sodium 144 Potassium 4.1 Chloride 108 H Carbon Dioxide 24.9 Anion Gap 11.1 H BUN 11 Creatinine 1.1 Est GFR (CKD-EPI 2020) 70.01 Glucose 199 H Calcium 9.4 Magnesium 1.8 Total Bilirubin 2.1 H AST 42 H ALT 18 Alkaline Phosphatase 190 H Troponin I < 50 Total Protein 6.8 Albumin 3.1 L Lipase 65 Urine Color Urine Clarity Urine pH Ur Specific [place] Urine Protein Urine Ketones Urine Blood Urine Nitrite Urine Bilirubin Urine Urobilinogen Ur Leukocyte Esterase Urine RBC Urine WBC Ur Epithelial Cells Urine Crystals Urine Bacteria Urine Casts Urine Mucus Urine Other Ur Culture Indicated? Urine Glucose COVID-19 Source Nasal/Nares SARS-CoV-2 (PCR) Negative 12/08/22 12/08/22 12/08/22 05:10 07:10 07:43 WBC RBC Hgb Hct MCV MCH MCHC RDW Plt Count MPV Immature Gran % Neutrophils % Lymphocytes % Monocytes % Eosinophils % Basophils % Nucleated RBC % Absolute Neutrophils Absolute Lymphocytes Absolute Monocytes Absolute Eosinophils Absolute Basophils PT 11.0 INR 1.1 APTT 27.6 Sodium Potassium Chloride Carbon Dioxide Anion Gap BUN Creatinine Est GFR (CKD-EPI 2020) Glucose Calcium Magnesium Total Bilirubin AST ALT Alkaline Phosphatase Troponin I Total Protein Albumin Lipase Urine Color Yellow Urine Clarity Sl Cloudy Urine pH 5.5 Ur Specific [place] 1.015 Urine Protein 30 H Urine Ketones Negative Urine Blood Trace-intact H Urine Nitrite Negative Urine Bilirubin Negative Urine Urobilinogen 1.0 H Ur Leukocyte Esterase Negative Urine RBC 5-10 H Urine WBC 0-2 Ur Epithelial Cells Rare Urine Crystals Negative Urine Bacteria Rare Urine Casts Negative Urine Mucus Negative Urine Other Moderate Yeast Ur Culture Indicated? Yes Urine Glucose >=1000 H COVID-19 Source Cancelled SARS-CoV-2 (PCR) Cancelled 12/08/22 08:00 WBC RBC Hgb Hct MCV MCH MCHC RDW Plt Count MPV Immature Gran % Neutrophils % Lymphocytes % Monocytes % Eosinophils % Basophils % Nucleated RBC % Absolute Neutrophils Absolute Lymphocytes Absolute Monocytes Absolute Eosinophils Absolute Basophils PT INR APTT Sodium Potassium Chloride Carbon Dioxide Anion Gap BUN Creatinine Est GFR (CKD-EPI 2020) Glucose Calcium Magnesium Total Bilirubin AST ALT Alkaline Phosphatase Troponin I < 50 Total Protein Albumin Lipase Urine Color Urine Clarity Urine pH Ur Specific [place] Urine Protein Urine Ketones Urine Blood Urine Nitrite Urine Bilirubin Urine Urobilinogen Ur Leukocyte Esterase Urine RBC Urine WBC Ur Epithelial Cells Urine Crystals Urine Bacteria Urine Casts Urine Mucus Urine Other Ur Culture Indicated? Urine Glucose COVID-19 Source SARS-CoV-2 (PCR) Imaging Additional studies: CXR: No acute pulmonary findings on this single AP portable view of the chest.Cardiomegaly again noted. CT abdomen/pelvis w/o contrast: 1. Likely chronic partial, high-grade small-bowel obstruction related to adhesions in the low midline abdomen/pelvis. Superimposed acute obstruction is not entirely excluded.? Recommend surgical consultation. 2. Cirrhosis and with sequela of portal hypertension. Status post tips without ascites. 3. Focal consolidation of the posterior left lung base, suspicious for pneumonia. 4. A small volume of air is present in the lumen of urinary bladder, likely indicating recent instrumentation or urethral orifice manipulation. EKG: Sinus bradycardia, HR 58, PVCs, no acute ischemia
[2022-12-08] MEDS: Insulin Aspart 300 UNITS/3 ML PEN SC (18:38)
[2022-12-08] MEDS: Carvedilol 3.125 MG TAB PO (21:31)
[2022-12-08] MEDS: Pregabalin 50 MG CAP PO (21:31)
[2022-12-08] MEDS: Valsartan 40 MG TAB PO (21:31)
[2022-12-08] MEDS: Prazosin 5 MG CAP 10 MG PO (21:31)
[2022-12-08] MEDS: Apixaban 5 MG TAB PO (21:31)
--- NOTE | 2022-12-09 | DI.RAD_ITS ---
Exam(s) XR ABDOMEN FLAT PLATE EXAM: 2D digital imaging was performed. CLINICAL HISTORY: eval obstruction. COMPARISON: CT CT ABDOMEN PELVIS W from 12/08/2022 TECHNIQUE: Supine views of the abdomen performed. FINDINGS: BOWEL GAS PATTERN: Mildly distended loop of small bowel in the mid abdomen, with improvement compared to prior CT. CALCIFICATIONS: No radiopaque calcifications visible. OSSEOUS STRUCTURES: Degenerative changes in the spine. OTHER FINDINGS: TIPS noted. Surgical clips noted bilateral abdomen as well as pelvis. Lung bases ar e clear. Residual contrast in the urinary bladder related to prior CT. IMPRESSION: Improvement in small bowel dilatation. DATA REPOSITORY: RADIATION DOSE DELIVERED:
[2022-12-09 00:15] VITALS: BP 119/53; PULSE 83; RESP 19; TEMP 36.7; O2SAT 97
[2022-12-09] MEDS: Normal Saline 1,000 ML 75 ML IV (03:22)
[2022-12-09 04:20] VITALS: BP 159/59; PULSE 66; RESP 19; TEMP 36.7; O2SAT 93
[2022-12-09] MEDS: Levothyroxine 100 MCG TAB 200 MCG PO (04:37)
[2022-12-09 07:11] LABS: Abs Immature Grans 0.01 10^3/uL (0.0-0.06); Absolute Basophil Count 0.03 10^3/uL (0.0-0.2); Absolute Eosinophil Count 0.27 10^3/uL (0.0-0.7); Absolute Lymphocyte Count 0.87 10^3/uL (1.2-3.4); Absolute Monocyte Count 0.39 10^3/uL (0.1-0.8); Absolute Neutrophil Count 2.38 10^3/uL (1.2-6.7); Basophils % 0.8; Eosinophils % 6.8; HCT 34.8 % (40.0-50.0); HGB 11.1 g/dL (13.5-17.5); Immature Grans % 0.3; MCH 28.5 pg (27.0-33.0); MCHC 31.9 % (32.0-36.0); MCV 90 fL (80-95); MPV 11.5 fL (8.0-11.0); Monocytes % 9.9; Neutrophils % 60.2; RBC 3.89 10^6/uL (4.36-5.78); RDW 14.7 % (11.8-14.1); RDW-SD 48.3 fL; WBC 3.95 10^3/uL (4.4-10.8)
[2022-12-09 07:29] LABS: Anion Gap 9.9 mmol/L (3-11); BUN 15 mg/dL (7-18); CO2 24.1 mmol/L (21.0-32.0); CREATININE 1.1 mg/dL (0.70-1.30); Calcium 8.6 mg/dL (8.5-10.1); Chloride 111 mmol/L (98-107); Estimated GFR 70.01 (mL/min/1.73m2); Glucose 121 mg/dL (74-106); Potassium 3.6 mmol/L (3.5-5.1); Sodium 145 mmol/L (136-145)
[2022-12-09 07:34] LABS: Diff Comment Diff Reviewed; Platelet Count 77 10^3/uL (130-400); RBC Morphology Normal
[2022-12-09] MEDS: Venlafaxine 150 MG CAPCR PO (07:37)
[2022-12-09] MEDS: Apixaban 5 MG TAB PO (07:37)
[2022-12-09] MEDS: Tamsulosin 0.4 MG CAPCR PO (07:37)
[2022-12-09] MEDS: Pregabalin 50 MG CAP PO (07:37)
[2022-12-09] MEDS: Valsartan 40 MG TAB PO (07:37)
[2022-12-09] MEDS: Carvedilol 3.125 MG TAB PO (07:37)
[2022-12-09 08:22] LABS: Lab Add On Test COMPLETED
[2022-12-09 08:57] VITALS: BP 146/65; PULSE 50; RESP 20; TEMP 36.5; O2SAT 94
[2022-12-09 08:59] LABS: Folate 16.9 ng/mL (8.6-20.0); Vitamin B12 685 pg/mL (193-986)
--- NOTE | 2022-12-09 11:54 | PDOC.CMIN ---
- If Service Date Differs Date of service: 12/09/22 Time of Service: 11:54 Care Management Initial Assess REASON FOR HOSPITALIZATION:: partial SBO PAST MEDICAL HISTORY/PAST SURGICAL HISTORY:: All Active Problems (Updated 12/08/22 @ 17:25 by Radha Alberts MD). Discharge planning issues (Acute). DVT prophylaxis (Acute). Portal hypertension (Acute). Cirrhosis (Acute). Abdominal pain (Acute). Partial small bowel obstruction (Acute). Confusion (Acute). Colon cancer (Chronic). Depression (Chronic). Endocarditis (Acute). Non-insulin dependent type 2 diabetes mellitus (Chronic). Incontinence (Acute). Hypertension (Chronic). Scleral icterus (Acute). CHF (congestive heart failure) (Chronic). Surgical History (Updated 12/08/22 @ 17:20 by Radha Alberts MD). Colostomy in place. H/O left hemicolectomy. S/P TIPS (transjugular intrahepatic portosystemic shunt) PREVIOUS FUNCTIONAL STATUS/SOCIAL/FAMILY SUPPORTS:: Merrill lives in [place] with his , Cely, his son Osmar who is disabled and Cely's brother Fuad who has lung cancer. Merrill and Cely also have 2 daughters who live out of state. Merrill and Cely are from [facility] and only moved to [place] a couple of years ago. They rented a place in [place] then just bought a house in [place] in September. 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 [place] [facility] and [place] ([place] are in the [place] of building a ramp and a chair lift for him. Osmar has a scooter which he uses to get around as well as a walker. He is independent with ADLs. CURRENT FUNCTIONAL STATUS:: Merrill was siting up in bed when CM met with him. He was pleasant and cooperative and engaged easily with CM. Merrill was admitted with a partial SBO which appeared to have resolved itself. He had a clear liquid lunch which he tolerated well and about 200cc of output from his ostomy. While RICHARD was with Merrill, Dr. Barry came to his room and informed him he could be discharged around 6pm. Merrill admitted that he was pleased to hear that news. He explained that he and Cely are almost never apart and as she was just discharged from [facility] this afternoon, he wanted to be with her. ADVANCE DIRECTIVES:: none on file Has patient been provided with info about the portal/API?: Yes Did the patient sign up for the portal?: No CODE STATUS:: Full Code INSURANCE COVERAGE / FINANCIAL ISSUES:: [facility]. Medicare CURRENT HOME/COMMUNITY SERVICES/EQUIPMENT:: Osmar has a scooter, cane and walker and is having a ramp and a chair lift installed. 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 PRIMARY CARE PHYSICIAN:: Osmar Carver POTENTIAL DISCHARGE NEEDS:: follow up with PCP and plan of care PATIENT/FAMILY EDUCATION NEEDS:: Review of discharge instructions, limitations, activity, follow up plan, discuss Ask Me Three TRANSPORTATION:: via RCT vs private vehicle PLAN:: Osmar will return home with a resumption of home health services for RN, PT, OT and MARINE STRUCTURAL DESIGNER. He will follow up with his community providers and plan of care and transport via RCT.
[2022-12-09 11:55] VITALS: BP 162/69; PULSE 57; RESP 18; TEMP 36.7; O2SAT 93
--- NOTE | 2022-12-09 12:57 | W.PM.PROGNOT ---
Date of Service Date of service: 12/09/22 Time of Service: 12:57 Assessment and Plan Assessment and plan (1) Partial small bowel obstruction: Status: Acute Assessment and plan: 77yo male with complicated medical and surgical history, who presented with obstructive symptoms. His pain and nausea have abated and his ostomy output has increased. He feels well, and is hungry. AXR shows improvement. --will increase diet to full liquids, low-residue and will observe for now --based on pt status, may consider d/c home this evening --GI/DVT prophylaxis --pain meds d/c'ed (2) Non-insulin dependent type 2 diabetes mellitus: Status: Chronic Assessment and plan: --q6 finger sticks, and insulin sliding scale --Jardiance and metformin held while NPO (3) Endocarditis: Status: Acute Assessment and plan: --According to the chart, the completion of his treatment was on 12/03/22 (4) Discharge planning issues: Status: Acute Assessment and plan: Pt's records have been requested from the [facility] Greatly appreciate Hospitalist input Subjective Subjective Interval history since last seen: Pt is feeling better today. He denies pain and nausea, and feels that his ostomy output is close to his baseline. He is voiding well. He is eager to eat more and go home. Exam Const General: cooperative, comfortable and no acute distress Nutritional Appearance: obese Orientation: alert, awake, oriented x3 and other (Though had some difficulty with aspects of his medical history) Resp Effort & Inspection: normal respiratory effort, able to speak in complete sentences, no grunting, not labored, no nasal flaring and no respiratory distress Auscultation: clear to auscultation bilaterally Cardio Rate: regular rate Rhythm: regular rhythm Heart Sounds: S1 normal, S2 normal and murmur GI Inspection: large pannus, scar and other (ostomy appliance present in left hemiabdomen) Palpation: soft, not firm, no guarding, not rigid and tender Percussion: normal to percussion Auscultation: normal bowel sounds Extrem Right lower extremity: no edema Left lower extremity: no edema Psych Mental Status: mental status grossly normal Attitude: cooperative Insight: insight good Judgment: judgment good Objective Last Vital Signs Temp 98.1 F 12/09/22 11:55 Pulse 57 L 12/09/22 11:55 Resp 18 12/09/22 11:55 BP 162/69 H 12/09/22 11:55 Pulse Ox 93 12/09/22 11:55 Laboratory Results - last 24 hr 12/09/22 12/09/22 12/09/22 06:42 06:42 06:42 WBC 3.95 L RBC 3.89 L Hgb 11.1 L Hct 34.8 L MCV 90 MCH 28.5 MCHC 31.9 L RDW 14.7 H Plt Count 77 L MPV 11.5 H Immature Gran % 0.3 Neutrophils % 60.2 Lymphocytes % 22.0 Monocytes % 9.9 Eosinophils % 6.8 Basophils % 0.8 Nucleated RBC % 0.0 Absolute Neutrophils 2.38 Absolute Lymphocytes 0.87 L Absolute Monocytes 0.39 Absolute Eosinophils 0.27 Absolute Basophils 0.03 RBC Morphology Normal Sodium 145 Potassium 3.6 Chloride 111 H Carbon Dioxide 24.1 Anion Gap 9.9 BUN 15 Creatinine 1.1 Est GFR (CKD-EPI 2020) 70.01 Glucose 121 H Calcium 8.6 Vitamin B12 685 Folate 16.9 Add-On Test Request 12/09/22 08:21 WBC RBC Hgb Hct MCV MCH MCHC RDW Plt Count MPV Immature Gran % Neutrophils % Lymphocytes % Monocytes % Eosinophils % Basophils % Nucleated RBC % Absolute Neutrophils Absolute Lymphocytes Absolute Monocytes Absolute Eosinophils Absolute Basophils RBC Morphology Sodium Potassium Chloride Carbon Dioxide Anion Gap BUN Creatinine Est GFR (CKD-EPI 2020) Glucose Calcium Vitamin B12 Folate Add-On Test Request COMPLETED Objective Narrative Objective Narrative: AXR (12/09/2022): FINDINGS: BOWEL GAS PATTERN: Mildly distended loop of small bowel in the mid abdomen, with improvement compared to prior CT. CALCIFICATIONS: No radiopaque calcifications visible.? OSSEOUS STRUCTURES: Degenerative changes in the spine. OTHER FINDINGS: TIPS noted.? Surgical clips noted bilateral abdomen as well as pelvis.? Lung bases are clear.? Residual contrast in the urinary bladder related to prior CT. IMPRESSION: Improvement in small bowel dilatation.? Time Spent with Patient Time Spent with Patient: 25-34 minutes Time was spent: preparing to see the patient(eg.review tests), obtaining and/or reviewing separately otained hiistory, ordering medications,tests, procedures, referring, communicating with other health hospice spiritual care coordinator, indepentently interpreting results and counseling the patient
[2022-12-09] MEDS: Pantoprazole 40 MG VIAL IVP (13:17)
[2022-12-09] MEDS: Normal Saline Flush 10 ML SYR IVP (13:17)
[2022-12-09 14:27] VITALS: BP 159/63; PULSE 63; RESP 18; TEMP 36.4; O2SAT 94
--- NOTE | 2022-12-09 16:32 | W.PM.DS.N ---
Date of service: 12/09/22 Time of Service: 16:32 DS: Diagnosis Discharge Diagnosis (1) Partial small bowel obstruction: Status: Acute Asessment and Plan: 77yo male with a history of APR for rectal cancer over 30 years ago, and subsequent partial right colectomy for unresectable polyp ~3 years ago, presented with abdominal pain, decreased ostomy output, and abdominal pain. He was found to have a partial small bowel obstruction, now resolved. His ostomy is functioning at his normal rate, and he is tolerating a low-residue diet. 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 He estimates that he has had 30 episodes of obstructive symptoms over the years. He was recently admitted for a CHF exaceration, and was diuresed of 9+ liters, and discharged on 12/02. He presented early on the morning of 12/08 with decreased ostomy output, abdominal pain, and emesis for ~24 hours. He was admitted to the surgical service, made NPO, given gentle IV resuscitation, and mild analgesia. A Hospitalist consult was called for help with medical management. By later in the day on HD#1 his abdominal pain started to decrease, and he had a small amount of ostomy output. He was started on ice chips. By HD#2, his pain had abated, his ostomy output was normal, and he was requesting food. He was started on clear liquids, and then advanced to a low-residue tray. He tolerated this tray, and was eager to go home. Home Meds and New Rx's Prescriptions: Continued venlafaxine 150 mg Capsule,Extended Release 24hr 150 mg PO DAILY spironolactone 25 mg Tablet 25 mg PO DAILY prazosin 5 mg Capsule 10 mg PO QHS pantoprazole 40 mg Tablet,Delayed Release (Dr/Ec) 40 mg PO DAILY metformin 1,000 mg Tablet 1,000 mg PO BID levothyroxine 200 mcg Tablet 200 mcg PO DAILY furosemide [Lasix] 20 mg Tablet 20 mg PO DAILY valsartan 40 mg Tablet 40 mg PO BID pregabalin 50 mg Capsule 50 mg PO BID acetaminophen [Tylenol] 325 mg Capsule 650 mg PO Q6H MDD 3000 PRN Eliquis 5 mg Tablet 5 mg PO BID Jardiance 25 mg Tablet 25 mg PO DAILY tamsulosin 0.4 mg Capsule 0.4 mg PO DAILY carvedilol 3.125 mg Tablet 3.125 mg PO BID Qty: 60 0RF Discharge Instructions Instructions: Low Fiber Diet (DC) Additional Instructions: --maintain a low fiber diet for the next 1-2 weeks --drink water, and non-sugary drinks, keeping volume <2L, for CHF precautions --follow up with your PMD in nect 1-2 weeks Activity:: Activity as Tolerated Equipment/Supplies:: No Equipment Needed Diet:: Carb Counting DS: Summary Time Spent with Patient providing and/or coordinating discharge services: Greater than 30 minutes Status at Discharge Functional status at discharge: uses cane/walker Overall status at discharge: patient is progressing back to baseline Mental Status: mental status grossly normal Speech and Movement: speech and movement normal Mood: congruent mood Affect: normal affect Exam Const General: cooperative, comfortable and no acute distress Nutritional Appearance: obese Orientation: alert, awake, oriented x3 and other (Though had some difficulty with aspects of his medical history) Resp Effort & Inspection: normal respiratory effort, able to speak in complete sentences, no grunting, not labored, no nasal flaring and no respiratory distress Auscultation: clear to auscultation bilaterally Cardio Rate: regular rate Rhythm: regular rhythm Heart Sounds: S1 normal, S2 normal and murmur GI Inspection: large pannus, scar and other (ostomy appliance present in left hemiabdomen) Palpation: soft, not firm, no guarding and not rigid Percussion: normal to percussion Auscultation: normal bowel sounds Extrem Right lower extremity: no edema Left lower extremity: no edema Psych Mental Status: mental status grossly normal Speech and Movement: speech and movement normal Mood: congruent mood Affect: normal affect Attitude: cooperative Insight: insight good Judgment: judgment good DS: Data Vitals/I&O Vitals and I&O: Vital Signs Temperature 97.5 F L 12/09/22 14:27 Temperature Source Tympanic 12/09/22 14:27 Pulse 63 12/09/22 14:27 Pulse Rhythm Regular 12/09/22 09:05 Pulse 62 12/08/22 10:40 Respiratory Rate 18 12/09/22 14:27 Respiratory Effort Normal 12/09/22 09:05 Respiratory Depth Normal 12/09/22 09:05 Respiratory Pattern Normal 12/09/22 09:05 Blood Pressure 159/63 H 12/09/22 14:27 Blood Pressure Mean 77 12/08/22 10:17 Blood Pressure Position Supine 12/08/22 05:02 Pulse Oximetry 94 12/09/22 14:27 Oxygen Delivery Method Room Air 12/09/22 14:27 Oxygen Flow Rate 0 12/09/22 14:27 Pain Level 0 12/09/22 08:57 Intake & Output 12/08/22 12/09/22 12/09/22 23:59 11:59 23:59 Intake Total 50 / 50 1000 / 1250 250 / 1250 Output Total 400 / 400 625 / 1125 500 / 1125 Balance -350 / -350 375 / 125 -250 / 125 Weight 104 kg Intake: IV 50 / 50 1000 / 1000 Oral 250 / 250 Output: Urine 200 / 200 625 / 1125 500 / 1125 Stool 200 / 200 Other: Urine Color Light Mady Straw Light Mady Urine Appearance Clear Clear Cloudy Urine Odor None Stool Size Moderate Stool Characteristics Soft Brown Voiding Methods Urinal Urinal Data Completed and Pending Labs on day of discharge: Labs from last 24 hours 12/09/22 12/09/22 12/09/22 08:21 06:42 06:42 WBC 3.95 L RBC 3.89 L Hgb 11.1 L Hct 34.8 L MCV 90 MCH 28.5 MCHC 31.9 L RDW 14.7 H Plt Count 77 L MPV 11.5 H Immature Gran % 0.3 Neutrophils % 60.2 Lymphocytes % 22.0 Monocytes % 9.9 Eosinophils % 6.8 Basophils % 0.8 Nucleated RBC % 0.0 Absolute Neutrophils 2.38 Absolute Lymphocytes 0.87 L Absolute Monocytes 0.39 Absolute Eosinophils 0.27 Absolute Basophils 0.03 RBC Morphology Normal Sodium Potassium Chloride Carbon Dioxide Anion Gap BUN Creatinine Est GFR (CKD-EPI 2020) Glucose Calcium Vitamin B12 685 Folate 16.9 Add-On Test Request COMPLETED 12/09/22 06:42 WBC RBC Hgb Hct MCV MCH MCHC RDW Plt Count MPV Immature Gran % Neutrophils % Lymphocytes % Monocytes % Eosinophils % Basophils % Nucleated RBC % Absolute Neutrophils Absolute Lymphocytes Absolute Monocytes Absolute Eosinophils Absolute Basophils RBC Morphology Sodium 145 Potassium 3.6 Chloride 111 H Carbon Dioxide 24.1 Anion Gap 9.9 BUN 15 Creatinine 1.1 Est GFR (CKD-EPI 2020) 70.01 Glucose 121 H Calcium 8.6 Vitamin B12 Folate Add-On Test Request Preliminary micro results at discharge 12/08/22 07:10 Urine Culture - Preliminary Urine - Reflex from Ua YEAST Gram Positive Christina,Mixed PFSH All Active Problems (Updated 12/09/22 @ 16:41 by Chu Barry MD) Chronic anticoagulation (Acute) Discharge planning issues (Acute) DVT prophylaxis (Acute) Portal hypertension (Acute) Cirrhosis (Acute) Abdominal pain (Acute) Partial small bowel obstruction (Acute) Confusion (Acute) Colon cancer (Chronic) Depression (Chronic) Endocarditis (Acute) Non-insulin dependent type 2 diabetes mellitus (Chronic) Incontinence (Acute) Hypertension (Chronic) Scleral icterus (Acute) CHF (congestive heart failure) (Chronic) Surgical History (Updated 12/08/22 @ 17:20 by Radha Alberts MD) Colostomy in place H/O left hemicolectomy S/P TIPS (transjugular intrahepatic portosystemic shunt) Social History Smoking/Tobacco Use Status: Former Tobacco Use Smoking risk assessment performed?: Yes Alcohol Intake: former Drug use: Never Substance use type: does not use Do you feel safe at home: Yes Do you feel safe in your relationship?: Yes Time Spent with Patient Time Spent with Patient: 45-69 minutes Time was spent: preparing to see the patient(eg.review tests), obtaining and/or reviewing separately otained hiistory, ordering medications,tests, procedures, referring, communicating with other health home day care provider, indepentently interpreting results, counseling the patient and care coordination
== END 2022-12-09 18:58 | disposition home health service (06) | DRG 389 ==
LOC: ER 09:15 → MS 10:54
PROVIDERS: Emergency Medicine; Internal Medicine; Admitting Provider Surgery; Emergency Provider Student in an Organized Health Care Education/Training Program; PCP Student in an Organized Health Care Education/Training Program; Visit Provider Surgery
DX: K56.600 Partial intestinal obstruction, unspecified as to cause (principal); I50.22 Chronic systolic (congestive) heart failure; K76.6 Portal hypertension; E11.9 Type 2 diabetes mellitus without complications; K74.69 Other cirrhosis of liver; I27.20 Pulmonary hypertension, unspecified; F32.A Depression, unspecified; I11.0 Hypertensive heart disease with heart failure; R32 Unspecified urinary incontinence; Z93.3 Colostomy status; Z87.891 Personal history of nicotine dependence; Z79.01 Long term (current) use of anticoagulants; Z85.038 Personal history of other malignant neoplasm of large intestine; Z79.84 Long term (current) use of oral hypoglycemic drugs; Z90.49 Acquired absence of other specified parts of digestive tract
CPT/HCPCS: 36415; 80048; 80053; 83690; 87635; 93005; 96374; 96376; 99285; 71045; 74018; 74177; 81003; 81015; 82607; 82746; 83735; 84484; 85025; 85610; 85730; 87086; 93010; 99223; J0131; J3010; J3490

== ENCOUNTER 2023-01-01 16:03 | Emergency (ER) | payer OTHER, SELFPAY ==
[2023-01-01 16:11] VITALS: BP 180/67; PULSE 65; RESP 20; TEMP 36.8; O2SAT 96
[2023-01-01] MEDS: Dexamethasone 10 MG/ML VIAL IM (17:39)
[2023-01-01] MEDS: Ondansetron O.D.T. 4 MG TABEF SL (17:39)
--- NOTE | 2023-01-01 17:45 | DI.RAD_ITS ---
Exam(s) XR CHEST 2V PA LATERAL EXAM: XR CHEST 2V PA LATERAL CLINICAL HISTORY: COVID, cough TECHNIQUE: 2D digital imaging was performed. COMPARISON: CR,XR XR PORTABLE CHEST AP from 12/08/2022 FINDINGS: HEART: Enlarged, unchanged. Aorta: Not dilated. Tortuous. PULMONARY VASCULATURE: Prominent. LUNGS: Increased interstitial markings greater at the lung bases. No focal area of consolidation. PLEURAL SPACE: Tiny bilateral pleural effusions. No pneumothorax. BONE:Unremarkable for age. IMPRESSION: Cardiomegaly and mild CHF. DATA REPOSITORY: RADIATION DOSE DELIVERED:
--- NOTE | 2023-01-01 17:52 | W.ED.GENAD ---
Discharge Plan Disposition Patient Disposition: Home Condition: Improving Discharge Details Chief Complaint: RespSymp Clinical Impression: COVID Primary Care Provider: Osmar Carver ED Provider: Aftab Esparza Home Meds and New Rx's Prescriptions: No Action carvedilol 3.125 mg tablet 6.25 mg PO BID venlafaxine 150 mg Capsule,Extended Release 24hr 150 mg PO DAILY spironolactone 25 mg Tablet 25 mg PO DAILY prazosin 5 mg Capsule 10 mg PO QHS pantoprazole 40 mg Tablet,Delayed Release (Dr/Ec) 40 mg PO DAILY metformin 1,000 mg Tablet 1,000 mg PO BID levothyroxine 200 mcg Tablet 200 mcg PO DAILY furosemide [Lasix] 20 mg Tablet 20 mg PO DAILY valsartan 40 mg Tablet 40 mg PO BID pregabalin 50 mg Capsule 50 mg PO BID acetaminophen [Tylenol] 325 mg Capsule 650 mg PO Q6H MDD 3000 PRN Eliquis 5 mg Tablet 5 mg PO BID Jardiance 25 mg Tablet 25 mg PO DAILY tamsulosin 0.4 mg Capsule 0.4 mg PO DAILY Discharge Instructions Instructions: COVID-19 (Coronavirus Disease 2019) (ED) Additional Instructions: Please follow-up with your primary care physician. Medical Decision Making 77-year-old male history of hypertension, diabetes, presents with generalized fatigue, resolved diarrhea, cough and mild shortness of breath. Sick contacts at home 1 positive for COVID. Patient is alert oriented interactive nontoxic does have intermittent cough, normal oxygen saturation afebrile. Patient is positive for COVID-19. Given age comorbidities will obtain screening chest x-ray to assess for infiltrate or effusion. Trial of dexamethasone Zofran and counseled to continue with ibuprofen and acetaminophen at home. Likely home with close follow-up. Lower suspicion for PE ACS CHF exacerbation or aortic pathology. 18: 55 patient resting comfortably no acute distress. Nontoxic nonhypoxic. Home care instructions and return precautions given. HPI General Date/Time Provider Initiated Documentation: 01/01/23 17:21. HPI Narrative: 77-year-old male history of diabetes hypertension, presents with cough shortness of breath fatigue and now resolved diarrhea, multiple sick contacts at home 1 including his [id number] who is COVID-positive Related Data Home Medications Medication Instructions Recorded Confirmed acetaminophen 325 mg capsule 650 mg PO Q6H PRN 11/08/22 01/01/23 (Tylenol) apixaban 5 mg tablet (Eliquis) 5 mg PO BID 11/08/22 01/01/23 empagliflozin 25 mg tablet 25 mg PO DAILY 11/08/22 01/01/23 (Jardiance) furosemide 20 mg tablet (Lasix) 20 mg PO DAILY 11/08/22 01/01/23 levothyroxine 200 mcg tablet 200 mcg PO DAILY 11/08/22 01/01/23 metformin 1,000 mg tablet 1,000 mg PO BID 11/08/22 01/01/23 pantoprazole 40 mg tablet,delayed 40 mg PO DAILY 11/08/22 01/01/23 release prazosin 5 mg capsule 10 mg PO QHS 11/08/22 01/01/23 pregabalin 50 mg capsule 50 mg PO BID 11/08/22 01/01/23 spironolactone 25 mg tablet 25 mg PO DAILY 11/08/22 01/01/23 valsartan 40 mg tablet 40 mg PO BID 11/08/22 01/01/23 venlafaxine 150 mg 150 mg PO DAILY 11/08/22 01/01/23 capsule,extended release 24 hr tamsulosin 0.4 mg capsule 0.4 mg PO DAILY 11/29/22 01/01/23 carvedilol 3.125 mg tablet 6.25 mg PO BID 12/27/22 01/01/23 Allergies Allergy/AdvReac Type Severity Reaction Status Date / Time Penicillins Allergy Mild Itching Unverified 01/01/23 17:09 morphine AdvReac Severe vomiting Unverified 01/01/23 17:09 mussels AdvReac Severe vomiting Unverified 01/01/23 17:09 General Stated Complaint: RespSymp ANNA: 3 Review of Systems Narrative: Review of Systems Constitutional: Fatigue Eyes: negative ENT: negative Cardiovascular: negative Respiratory: Cough, shortness of breath Gastrointestinal: negative : negative Musculoskeletal: negative Skin: negative Neurologic: negative Psych: negative PFSH All Active Problems (Updated 01/01/23 @ 18:56 by Aftab Esparza MD) COVID (Acute) Advanced care planning/counseling discussion (Acute) Chronic low back pain (Chronic) ANETTE (obstructive sleep apnea) (Chronic) Recurrent intestinal obstruction (Acute) History of colon cancer (Acute) Palliative care encounter (Acute) Chronic anticoagulation (Acute) Portal hypertension (Acute) Cirrhosis (Acute) [place] [facility] [place] [facility] Confusion (Acute) Depression (Chronic) Non-insulin dependent type 2 diabetes mellitus (Chronic) Incontinence (Acute) Hypertension (Chronic) Scleral icterus (Acute) CHF (congestive heart failure) (Chronic) Medical History (Updated 01/01/23 @ 18:56 by Aftab Esparza MD) Colon cancer DVT prophylaxis Endocarditis September 2022, [facility] as per pt Surgical History (Updated 12/08/22 @ 17:20 by Radha Alberts MD) Colostomy in place H/O left hemicolectomy S/P TIPS (transjugular intrahepatic portosystemic shunt) Social History Smoking/Tobacco Use Status: Former Tobacco Use Smoking risk assessment performed?: Yes Alcohol Intake: former Drug use: Never Substance use type: does not use Do you feel safe at home: Yes Do you feel safe in your relationship?: Yes Exam Narrative Exam Narrative: Physical Examination General: alert, awake, cooperative, resting comfortably, no acute distress HEENT: normocephalic, atraumatic; PERRL, EOM intact, conjunctiva normal; no nasal discharge; moist mucous membranes, oral and pharyngeal mucosa normal, tolerating secretions Neck: supple, trachea midline; full ROM Chest: normal to inspection Respiratory: normal respiratory effort, speaking in full sentences, clear to auscultation, no wheezing, rales or rhonchi Cardiac: regular rate, regular rhythm, S1S2 intact, no murmurs rubs or gallops GI: abdomen soft, non-tender, non-distended; no palpable mass or hepatosplenomegaly Skin: no lesions, rashes or trauma appreciated Neuro: AAOx3, normal speech, moving all extremities Psych: Appropriate mood and affect Course Vital Signs Vital signs: Vital Signs Temperature 36.8 C 01/01/23 16:11 Pulse 65 01/01/23 16:11 Respiratory Rate 20 01/01/23 16:11 Blood Pressure 180/67 H 01/01/23 16:11 Pulse Oximetry 96 01/01/23 16:11 Temperature 36.8 C 01/01/23 16:11 Temperature Source Tympanic 01/01/23 16:11 Pulse 65 01/01/23 16:11 Respiratory Rate 20 03/08/23 16:11 Respiratory Effort Short of Breath 01/01/23 16:17 Respiratory Depth Normal 01/01/23 16:17 Blood Pressure 180/67 H 01/01/23 16:11 Blood Pressure Position Supine 01/01/23 16:11 Pulse Oximetry 96 01/01/23 16:11 Oxygen Delivery Method Room Air 01/01/23 16:11 Oxygen Flow Rate 0 01/01/23 16:11 Pain Level 4 01/01/23 16:11
--- NOTE | 2023-01-01 18:49 | DI.VRAD_ITS ---
PROCEDURE INFORMATION: Exam: XR Chest Exam date and time: 01/01/2023 6:30 PM Age: 77 years old Clinical indication: Other: Covid, cpugh TECHNIQUE: Imaging protocol: Radiologic exam of the chest. Views: 2 views. COMPARISON: XR PORTABLE CHEST AP 12/08/2022 7:46 AM FINDINGS: Lungs: Mild interstitial prominence may be slightly increased. No consolidation. Pleural spaces: No pleural effusion. No pneumothorax. Heart/Mediastinum: Grossly stable. Bones/joints: Unremarkable. IMPRESSION: Mild interstitial pneumonitis/edema not completely excluded Dictated and Authenticated by: Remi Rouse MD. Ordering:KATIA Ugalde MD
== END 2023-01-01 19:28 | disposition home or self-care (01) ==
PROVIDERS: Emergency Provider Emergency Medicine; PCP Student in an Organized Health Care Education/Training Program
DX: U07.1 COVID-19 (principal); E11.9 Type 2 diabetes mellitus without complications; I10 Essential (primary) hypertension
CPT/HCPCS: 87426; 96372; 99284; 71046; 99283; J1100

== ENCOUNTER 2023-01-23 15:34 | Emergency (ER) | payer OTHER, SELFPAY ==
[2023-01-23 15:37] VITALS: BP 169/73; PULSE 66; RESP 18; TEMP 37.3; O2SAT 96
--- NOTE | 2023-01-23 16:27 | ED.GENADUL_ITS ---
Discharge Plan Disposition Patient Disposition: Home Condition: Stable Discharge Details Clinical Impression: Abdominal pain Primary Care Provider: Osmar Carver ED Provider: Aftab Esparza Home Meds and New Rx's Prescriptions: New Colace Clear 50 mg capsule 50 mg PO DAILY 10 Days Qty: 10 0RF No Action carvedilol 3.125 mg tablet 6.25 mg PO BID venlafaxine 150 mg Capsule,Extended Release 24hr 150 mg PO DAILY spironolactone 25 mg Tablet 25 mg PO DAILY prazosin 5 mg Capsule 10 mg PO QHS pantoprazole 40 mg Tablet,Delayed Release (Dr/Ec) 40 mg PO DAILY metformin 1,000 mg Tablet 1,000 mg PO BID levothyroxine 200 mcg Tablet 200 mcg PO DAILY furosemide [Lasix] 20 mg Tablet 20 mg PO DAILY valsartan 40 mg Tablet 40 mg PO BID pregabalin 50 mg Capsule 50 mg PO BID acetaminophen [Tylenol] 325 mg Capsule 650 mg PO Q6H MDD 3000 PRN Eliquis 5 mg Tablet 5 mg PO BID Jardiance 25 mg Tablet 25 mg PO DAILY tamsulosin 0.4 mg Capsule 0.4 mg PO DAILY Discharge Instructions Instructions: Abdominal Pain (ED) Additional Instructions: Please follow-up with your primary care physician next week. Please return to the emergency department for any worsening symptoms. Medical Decision Making 78-year-old male history of remote colorectal cancer status post resection with colostomy in place presents with lower abdominal discomfort left lower quadrant over the past several days worse when standing associate with nausea, no vomiting. Afebrile nontoxic nonperitoneal no palpable masses most of patient's discomfort is subjectively located in the left lower quadrant where the abdomen meets the groin ostomy with good output nondistended nontympanic soft nonperitoneal abdomen. Consider abdominal hernia versus inguinal hernia lower suspicion for SBO, must also consider colitis or enteritis. Will obtain labs imaging CT abdomen pelvis with IV contrast, fluids and antiemetics. Disposition pending results 18: 14 patient resting comfortably no acute distress. No evidence of SBO or serious infection. Does have somewhat of a stool burden. Will start on Colace. Home care instructions and return precautions given HPI General Date/Time Provider Initiated Documentation: 01/23/23 15:35 . HPI Narrative: 78-year-old male history of colorectal cancer status post resection with current ostomy, in remission, presents with left lower quadrant abdominal discomfort over the past several days worse when he stands up associated with nausea without vomiting. Patient has had some loose output into his colostomy bag over the past several days. Has had history of bowel obstructions usually his init ial symptom is firm distended abdomen. Related Data Home Medications Medication Instructions Recorded Confirmed acetaminophen 325 mg capsule 650 mg PO Q6H PRN 11/08/22 01/01/23 (Tylenol) apixaban 5 mg tablet (Eliquis) 5 mg PO BID 11/08/22 01/01/23 empagliflozin 25 mg tablet 25 mg PO DAILY 11/08/22 01/01/23 (Jardiance) furosemide 20 mg tablet (Lasix) 20 mg PO DAILY 11/08/22 01/01/23 levothyroxine 200 mcg tablet 200 mcg PO DAILY 11/08/22 01/01/23 metformin 1,000 mg tablet 1,000 mg PO BID 11/08/22 01/01/23 pantoprazole 40 mg tablet,delayed 40 mg PO DAILY 11/08/22 01/01/23 release prazosin 5 mg capsule 10 mg PO QHS 11/08/22 01/01/23 pregabalin 50 mg capsule 50 mg PO BID 11/08/22 01/01/23 spironolactone 25 mg tablet 25 mg PO DAILY 11/08/22 01/01/23 valsartan 40 mg tablet 40 mg PO BID 11/08/22 01/01/23 venlafaxine 150 mg 150 mg PO DAILY 11/08/22 01/01/23 capsule,extended release 24 hr tamsulosin 0.4 mg capsule 0.4 mg PO DAILY 11/29/22 01/01/23 carvedilol 3.125 mg tablet 6.25 mg PO BID 12/27/22 01/01/23 docusate sodium 50 mg capsule 50 mg PO DAILY 10 days #10 caps 01/23/23 (Colace Clear) Previous Rx's Medication Instructions Recorded docusate sodium 50 mg capsule 50 mg PO DAILY 10 days #10 caps 01/23/23 (Colace Clear) Allergies Allergy/AdvReac Type Severity Reaction Status Date / Time Penicillins Allergy Mild Itching Unverified 01/01/23 17:09 morphine AdvReac Severe vomiting Unverified 01/01/23 17:09 mussels AdvReac Severe vomiting Unverified 01/01/23 17:09 General Stated Complaint: Abd Prob ANNA: 3 Review of Systems Narrative: Review of Systems Constitutional: negative Eyes: negative ENT: negative Cardiovascular: negative Respiratory: negative Gastrointestinal: Abdominal pain, nausea : negative Musculoskeletal: negative Skin: negative Neurologic: negative Psych: negative PFSH All Active Problems (Updated 01/23/23 @ 18:15 by Aftab Esparza MD) Abdominal pain (Acute) COVID (Acute) Advanced care planning/counseling discussion (Acute) Chronic low back pain (Chronic) ANETTE (obstructive sleep apnea) (Chronic) Recurrent intestinal obstruction (Acute) History of colon cancer (Acute) Chronic anticoagulation (Acute) Portal hypertension (Acute) Cirrhosis (Acute) TIPs placed (?when, [facility]? [facility]?) Confusion (Acute) Depression (Chronic) Non-insulin dependent type 2 diabetes mellitus (Chronic) Incontinence (Acute) Hypertension (Chronic) Scleral icterus (Acute) CHF (congestive heart failure) (Chronic) Medical History (Updated 01/23/23 @ 18:15 by Aftab Esparza MD) Colon cancer DVT prophylaxis Endocarditis September 2022, [facility] as per pt Palliative care encounter Followed by [facility] Surgical History (Updated 12/08/22 @ 17:20 by Radha Alberts MD) Colostomy in place H/O left hemicolectomy S/P TIPS (transjugular intrahepatic portosystemic shunt) Social History Smoking/Tobacco Use Status: Former Tobacco Use Smoking risk assessment performed?: Yes Alcohol Intake: former Drug use: Never Substance use type: does not use Do you feel safe at home: Yes Do you feel safe in your relationship?: Yes Exam Narrative Exam Narrative: Physical Examination General: alert, awake, cooperative, resting comfortably, no acute distress HEENT: normocephalic, atraumatic; PERRL, EOM intact, conjunctiva normal; no nasal discharge; moist mucous membranes, oral and pharyngeal mucosa normal, tolerating secretions Neck: supple, trachea midline; full ROM Chest: normal to inspection Respiratory: normal respiratory effort, speaking in full sentences, clear to auscultation, no wheezing, rales or rhonchi Cardiac: regular rate, regular rhythm, S1S2 intact, no murmurs rubs or gallops GI: abdomen soft, non-tender, non-distended; well-healed remote midline laparotomy scar, ostomy in left lower quadrant with active bowel sounds and stool output, patient has subjective tenderness in the left lower quadrant where abdominal wall meets groin without palpable mass Skin: no lesions, rashes or trauma appreciated Neuro: AAOx3, normal speech, moving all extremities Psych: Appropriate mood and affect Course Vital Signs Vital signs: Vital Signs Temperature 37.3 C 01/23/23 15:37 Pulse 66 01/23/23 15:37 Respiratory Rate 18 01/23/23 15:37 Blood Pressure 169/73 H 01/23/23 15:37 Pulse Oximetry 96 01/23/23 15:37 Temperature 37.3 C 01/23/23 15:37 Temperature Source Skin 01/23/23 15:37 Pulse 66 01/23/23 15:37 Respiratory Rate 18 01/23/23 15:37 Blood Pressure 169/73 H 01/23/23 15:37 Blood Pressure Position Sitting 01/23/23 15:37 Pulse Oximetry 96 01/23/23 15:37 Oxygen Delivery Method Room Air 01/23/23 15:37 Oxygen Flow Rate 0 01/23/23 15:37 Pain Level 8 01/23/23 15:37 Comment pain increases when moving 01/23/23 15:37
[2023-01-23] MEDS: Normal Saline 500 ML 1000 ML IV (16:31)
[2023-01-23 16:32] LABS: Abs Immature Grans 0.01 10^3/uL (0.0-0.06); Absolute Basophil Count 0.04 10^3/uL (0.0-0.2); Absolute Eosinophil Count 0.33 10^3/uL (0.0-0.7); Absolute Monocyte Count 0.48 10^3/uL (0.1-0.8); Absolute Neutrophil Count 4.22 10^3/uL (1.2-6.7); Basophils % 0.7; Eosinophils % 5.6; HCT 38.1 % (40.0-50.0); HGB 12.4 g/dL (13.5-17.5); Immature Grans % 0.2; Lymphocytes % 13.6; MCH 26.8 pg (27.0-33.0); MCHC 32.5 % (32.0-36.0); MCV 83 fL (80-95); MPV 10.2 fL (8.0-11.0); Monocytes % 8.2; Neutrophils % 71.7; Platelet Count 105 10^3/uL (130-400); RBC 4.62 10^6/uL (4.36-5.78); RDW 14.8 % (11.8-14.1); RDW-SD 44.5 fL; WBC 5.88 10^3/uL (4.4-10.8)
[2023-01-23] MEDS: Ondansetron 4 MG/2 ML VIAL IVP (16:33)
[2023-01-23 16:47] LABS: ALT 19 U/L (16-63); AST 31 U/L (15-37); Albumin 2.8 g/dL (3.4-5.0); Alkaline Phosphatase 164 U/L (46-116); Anion Gap 9.7 mmol/L (3-11); BUN 12 mg/dL (7-18); Bilirubin, Total 1.9 mg/dL (0.2-1.0); CO2 24.3 mmol/L (21.0-32.0); Calcium 9.3 mg/dL (8.5-10.1); Chloride 109 mmol/L (98-107); Glucose 246 mg/dL (74-106); Potassium 3.9 mmol/L (3.5-5.1); Sodium 143 mmol/L (136-145); Total Protein 6.8 g/dL (6.4-8.2)
[2023-01-23] MEDS: Omnipaque 350 MG/ML 500 ML BTL-Imaging package IJ (17:03)
[2023-01-23] MEDS: Normal Saline - Diluent 50 ML VIAL IJ (17:09)
--- NOTE | 2023-01-23 17:33 | DI.CT_ITS ---
Exam(s) CT ABDOMEN PELVIS W EXAM: CT ABDOMEN PELVIS W CLINICAL HISTORY: LL abd pain, hx colostomy; concern for hernia. TECHNIQUE: Imaging Protocol: Axial computed tomography images with coronal and sagittal reformatted images were created and reviewed CONTRAST MATERIAL: Intravenous: Omnipaque 350 Contrast volume:100 ml Oral: yes COMPARISON: CT CT ABDOMEN PELVIS W from 12/08/2022 FINDINGS: ABDOMEN: Lung Bases: Normal where visualized. Heart is enlarged. Liver: Cirrhotic appearance.. No measurable mass. Tips noted. Gallbladder and biliary tract: No radiodense calculus or dilation. Pancreas: Normal density, no abnormal calcifications or inflammatory process. Spleen: Enlarged. Kidneys: Normal size, contour and axis. No radiodense stones or obstructive uropathy. No suspicious m asses seen. Adrenal glands: No masses seen. Abdominal Aorta: Abdominal portion non-dilated. Atherosclerotic changes. Soft tissues: Left lower quadrant colostomy, unremarkable. Prior midline abdominal wall hernia repair. Stable appearance of a few small adjacent fatty herniat ions. PELVIS: Bladder: No gross wall thickening. No calculi.No focal mass. Bowel: Multiple colonic anastomoses. Partial left colectomy. Ileocolic anastomosis again somewhat d ilated and stool filled. Mild distal small bowel dilatation and fecalization, unchanged. Peritoneal cavity: No ascites, collection or mesenteric inflammatory response. Bones: Degenerative changes in the spine and pelvis. No compression fractures. Reproductive organs: Prostate mildly enlarged, impressing on the base of the bladder. Lymph nodes: Unremarkable. Impression: A stable appearance of colostomy, partial of colonic resection and several other colonic anastomoses. Moderate to increased quantity of stool. No evidence of obstruction. No significant change from p rior. RADIATION DOSE DELIVERED: 1,337.89mGy.cm Total DLP DATA REPOSITORY: All CT scans at this facility are submitted to the National Radiology Data Registry (NRDR) Dose Index Registry (DIR) with the [employer] (ACR). RADIATION OPTIMIZATION: All CT scans at this facility use at least one of these dose optimization te chniques: automated exposure control; mA and/or kV adjustment per patient size (includes targeted exa ms where dose is matched to clinical indication); or iterative reconstruction.
[2023-01-23 17:45] VITALS: BP 131/81
--- NOTE | 2023-01-23 17:59 | DI.VRAD_ITS ---
PROCEDURE INFORMATION: Exam: CT Abdomen And Pelvis With Contrast Exam date and time: 01/23/2023 5:18 PM Age: 78 years old Clinical indication: Abdominal pain; Localized; Left lower quadrant (llq); Prior surgery; Surgery date: 6+ months; Patient HX: Ll abd pain, HX colostomy, concern for hernia TECHNIQUE: Imaging protocol: Computed tomography of the abdomen and pelvis with contrast. Contrast material: OMNIPAQUE 350; Contrast volume: 100 ml; Contrast route: INTRAVENOUS (IV); COMPARISON: CT ABDOMEN PELVIS W 09/27/2023 07:01 FINDINGS: Heart: Cardiomegaly. Liver: Nodular contour of the liver consistent with cirrhosis. Tips shunt in place unchanged from the prior study. Gallbladder and bile ducts: Contracted gallbladder. Cholelithiasis. Pancreas: Stable calcifications involving the pancreas. Spleen: Splenomegaly. Adrenal glands: Normal. No mass. Kidneys and ureters: Normal. No hydronephrosis. Stomach and bowel: Left lower quadrant ostomy site. Postsurgical changes of bowel in the lower pelvis similar to prior study. Moderate stool load. Fecalization of the small bowel. Appendix: No evidence of appendicitis. Intraperitoneal space: Unremarkable. No free air. No significant fluid collection. Vasculature: Atherosclerotic disease. Lymph nodes: Unremarkable. No enlarged lymph nodes. Urinary bladder: Distended urinary bladder. Reproductive: Lobular contour of the prostate projecting into the bladder. Bones/joints: Multilevel degenerative changes of the thoracic and lumbar spine. Decreased bone mineralization. Degenerative changes of the hips. Multilevel degenerative changes of the spine. Soft tissues: Prior anterior abdominal wall surgery. Fat distension of the inguinal canals. Again noted paraumbilical hernias with omental fat. IMPRESSION: 1. Left lower quadrant colostomy site with dilated fecalized small bowel similar to prior study. 2. Cirrhosis with TIPS shunt in place. Splenomegaly. 3. No significant changes compared with prior study. 4. Stable appearance of the left lower quadrant ostomy site. Dictated and Authenticated by: Milena Padilla MD. Ordering:KATIA Ugalde MD
[2023-01-23 18:10] VITALS: BP 174/79; PULSE 57; O2SAT 93
[2023-01-23 18:42] VITALS: BP 184/69; PULSE 65; O2SAT 95
== END 2023-01-23 18:41 | disposition home or self-care (01) ==
PROVIDERS: Emergency Provider Emergency Medicine; PCP Student in an Organized Health Care Education/Training Program
DX: R10.32 Left lower quadrant pain (principal); Z86.718 Personal history of other venous thrombosis and embolism; Z93.3 Colostomy status; Z79.01 Long term (current) use of anticoagulants
CPT/HCPCS: 80053; 96374; 99285; 74177; 85025; 99284; J2405

== ENCOUNTER 2023-01-24 14:41 | Inpatient (IN) | payer OTHER, SELFPAY ==
[2023-01-24 14:42] VITALS: BP 170/60; PULSE 66; RESP 16; TEMP 35.7; O2SAT 97
--- NOTE | 2023-01-24 15:21 | ED.GENADUL_ITS ---
Discharge Plan Disposition Patient Disposition: Admit to [facility] Condition: Poor Discharge Details Chief Complaint: Abd Prob Clinical Impression: Acute pyelonephritis, Abdominal pain, Incontinence Admit Date/Time: 01/24/23 18:16 Admit Provider: Elia Arizmendi Attending Provider: Elia Arizmendi Primary Care Provider: Osmar Carver ED Provider: Kalie Leonard Discharge Data Discharge Date/Time-TO BE ENTERED AT DEPARTURE: 01/24/23 19:33 Medical Decision Making Patient is a pleasant 78-year-old male with past medical history significant for ANETTE, colon cancer, portal hypertension, cirrhosis, and type 2 diabetes, CHF., Anticoagulated on Eliquis, presenting today with chief complaint of abdominal pain. Patient has been here a few times over the past month. Was admitted for partial obstruction. He was also here yesterday with similar and no abnormality noted. Patient states that pain is worse today. He states he has had no ostomy output today. Has not passed any flatus. he also states that his urination has changed, he has issues with frequency/urgency at baseline but this has increased and that now he has been having some urinary incontinence. Deneis fevers/chills. Has had nausea but no vomiting. On exam, patient appear uncomfortable but non-toxic. Lungs are clear. Normal cardiac auscultation. He denies CP. Endorsews some SOB but states that this is baseline and unchanged. Abdominal exam signficant for large incision that is well healed. He does have significant scar tissue along midline. He has diffuse tenderness but more along the left side. Ostomy is empty. Concerned for possible obstruction, will obtain imaging. As the patient did have imaging yesterday, considered holding off on this but he reports that pain is signficantly worse and than yesterday and he has had several surgical interventions and complications in the past. Also considered chronic abdominal pain, constipation, UTI vs. other. Patient given morphine for his severe pain, only slight improvement, given 1mg Dilaudid, much ore comfortable. Receiving fluids but going slow as patient has had issues with fluid overload in the past. Last EF 50-55%. On diuretic. No evidence of acute fluid overload at this time. Labs reviewed, signficant for lactate of 4. No leukocytosis. With the elevated lactate, I did consider vascular etiology with the lactate but he does not sound to have abdominal angina as this is not linked to PO intake or worsened with that. He also is anticoagulated and has not missed his medications. Find this less likely. Consulted with Dr. Marcelino, she advised that comparing CT is unchanged. She advised that he likely suffers from slow GI movement as he has had some stool burden but no actue etiology. UA concerning for infection. Left CVA tenderness. No stone on exam. Likely pyelonephritis. Will start on IV abx. Will pain, hx and elevated lactate, plan for admission. I also considered protatitis but no findings of this on imaging. I discussed rectal exam with the patient. However, he states that he had complete resection of rectum such that he is unable ot have rectal exam now. He is not having pain lower in nithya pelvis or rectal area. Plan to admit for pyelonephritis. Discussed with patient who agrees. Spoke with Dr. Arizmendi who is in agreement with consuelo joiner. Patient finishing first liter of fluids, has received ceftriaxone. He does have allergy of Penicillin. States taht when he was in he had some itching but no anaphylaxis. HPI General Date/Time Provider Initiated Documentation: 01/24/23 14:42 . Limitations to Documentation: no limitations . Information obtained by: patient, RN notes reviewed and old records reviewed . History of Present Illness 78 year old M presents to the emergency department with the chief complaint of abdominal pain, decreased ostomy output, described as severe and similar to prior episodes (has had sever bowel obstructions), Quality is described as aching, Patient reports radiation to back (left flank). Patient started experiencing this day(s) and it has been constant. No relieving factors improve symptom(s), No exacerbating factors reported . Patient notes loss of appetite, malaise and nausea/vomiting (nausea, no vomiting); denies chest pain, fever/chills, rash and shortness of breath (reports some chronic exertional SOB, no acute change). Patient did receive the following treatments prior to arrival, none Related Data Home Medications Medication Instructions Recorded Confirmed acetaminophen 325 mg capsule 650 mg PO Q6H PRN 11/08/22 01/24/23 (Tylenol) apixaban 5 mg tablet (Eliquis) 5 mg PO BID 11/08/22 01/24/23 empagliflozin 25 mg tablet 25 mg PO DAILY 11/08/22 01/24/23 (Jardiance) furosemide 20 mg tablet (Lasix) 20 mg PO DAILY 11/08/22 01/24/23 levothyroxine 200 mcg tablet 200 mcg PO DAILY 11/08/22 01/24/23 metformin 1,000 mg tablet 1,000 mg PO BID 11/08/22 01/24/23 pantoprazole 40 mg tablet,delayed 40 mg PO DAILY 11/08/22 01/24/23 release prazosin 5 mg capsule 10 mg PO QHS 11/08/22 01/24/23 pregabalin 50 mg capsule 50 mg PO BID 11/08/22 01/24/23 spironolactone 25 mg tablet 25 mg PO DAILY 11/08/22 01/24/23 valsartan 40 mg tablet 40 mg PO BID 11/08/22 01/24/23 venlafaxine 150 mg 150 mg PO DAILY 11/08/22 01/24/23 capsule,extended release 24 hr tamsulosin 0.4 mg capsule 0.4 mg PO DAILY 11/29/22 01/24/23 carvedilol 3.125 mg tablet 6.25 mg PO BID 12/27/22 01/24/23 docusate sodium 50 mg capsule 50 mg PO DAILY 10 days #10 caps 01/23/23 01/24/23 (Colace Clear) Previous Rx's Medication Instructions Recorded docusate sodium 50 mg capsule 50 mg PO DAILY 10 days #10 caps 01/23/23 (Colace Clear) Allergies Allergy/AdvReac Type Severity Reaction Status Date / Time Penicillins Allergy Mild Itching Unverified 01/24/23 14:49 morphine AdvReac Severe vomiting Unverified 01/24/23 14:49 mussels AdvReac Severe vomiting Unverified 01/24/23 14:49 General Stated Complaint: Abd Prob ANNA: 3 Review of Systems Constitutional Constitutional: Reports as per HPI, Denies chills, Denies fatigue and Denies fever(s) Cardiovascular Cardiovascular: Reports as per HPI and Denies chest pain Respiratory Respiratory: Reports as per HPI and Denies cough Gastrointestinal Gastrointestinal: Reports as per HPI Genitourinary Genitourinary: Denies testicular pain, Reports urinary frequency, Denies urinary hesitancy, Reports urinary incontinence and Reports urinary urgency Musculoskeletal Musculoskeletal: Reports as per HPI Integumentary/Breasts Skin/Breast: Reports as per HPI and Denies rash Neurologic Neurologic: Reports as per HPI Endocrine Endocrine: Denies fatigue PFSH All Active Problems (Updated 01/25/23 @ 11:18 by STEFANO Rojas) Acute pyelonephritis (Acute) Discharge planning issues (Acute) Abdominal pain (Acute) COVID (Acute) Advanced care planning/counseling discussion (Acute) Chronic low back pain (Chronic) ANETTE (obstructive sleep apnea) (Chronic) Recurrent intestinal obstruction (Acute) History of colon cancer (Acute) Chronic anticoagulation (Acute) Portal hypertension (Acute) Cirrhosis (Acute) TIPs placed (?when, [facility]? 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, [facility] as per pt Palliative care encounter Followed by [facility] Surgical History Colostomy in place H/O left hemicolectomy S/P TIPS (transjugular intrahepatic portosystemic shunt) Social History (Updated 01/24/23 @ 22:28 by Elia Arizmendi) Smoking/Tobacco Use Status: Former Tobacco Use Smoking risk assessment performed?: Yes Alcohol Intake: former Drug use: Never Substance use type: does not use Do you feel safe at home: Yes Do you feel safe in your relationship?: Yes Additional Social history: Lives with , son, and sick [id number] in [place], moved up from [place] in 2019. [place] . Exam Const General: cooperative, healthy appearing, comfortable, no acute distress and well developed Nutritional Appearance: well nourished and overweight Orientation: alert and awake [facility] Head: normal to inspection Mouth: moist mucous membranes Resp Effort & Inspection: normal respiratory effort, able to speak in complete sentences and no respiratory distress Auscultation: clear to auscultation bilaterally, no rales, no rhonchi and no wheezes Cardio Rate: regular rate Rhythm: regular rhythm Heart Sounds: S1 normal and S2 normal GI Inspection: distended, scar (well healed surgical incision) and no visible herniation Palpation: soft, no guarding, not rigid and tender (mildly diffusely tender, more on the left than right, no real focal pain) Percussion: normal to percussion Auscultation: hyperactive bowel sounds Back/Spine/Pelvis Back: CVA tenderness (left) Skin General skin exam: no rashes or lesions noted Trauma: no lacerations or abrasions Neuro General: patient alert and patient awake Cognition: normal cognition Speech: speech normal Gait: normal gait Psych Appearance: grossly normal and well kempt Mental Status: mental status grossly normal Speech and Movement: speech and movement normal Course Vital Signs Vital signs: Vital Signs Temperature 35.7 C L 01/24/23 14:42 Pulse 66 01/24/23 14:42 Respiratory Rate 16 01/24/23 14:42 Blood Pressure 170/60 H 01/24/23 14:42 Pulse Oximetry 97 01/24/23 14:42 Temperature 35.7 C L 01/24/23 14:42 Temperature Source Tympanic 01/24/23 14:42 Pulse 66 01/24/23 14:42 Respiratory Rate 16 01/24/23 14:42 Respiratory Effort Normal 01/24/23 14:48 Blood Pressure 170/60 H 01/24/23 14:42 Blood Pressure Position Sitting 01/24/23 14:42 Pulse Oximetry 97 01/24/23 14:42 Oxygen Delivery Method Room Air 01/24/23 14:42 Oxygen Flow Rate 0 01/24/23 14:42 Pain Level 7 01/24/23 14:42
--- NOTE | 2023-01-24 15:36 | DI.CT_ITS ---
Exam(s) CT ABDOMEN PELVIS W EXAM: CT ABDOMEN PELVIS W CLINICAL HISTORY: abdominal pain, hx obstruction. TECHNIQUE: Imaging Protocol: Axial computed tomography images with coronal and sagittal reformatted images were created and reviewed CONTRAST MATERIAL: Intravenous: Omnipaque 350 Contrast volume:100 ml Oral: no COMPARISON: CT CT ABDOMEN PELVIS W from 01/23/2023 FINDINGS: Multiple colonic anastomoses again noted. No change in appearance of dilatation of proximal cecum at the anastomosis. No change in degree of dilatation of distal small bowel. No wall thickening or pn eumatosis. No evidence of abscess or perforation. Left-sided colostomy unchanged. Cirrhotic liver with TIPS. No ascites. Residual contrast within urinary bladder. No hydronephrosis . Impression: Stable appearance dilated proximal colon and adjacent small bowel in the region of the ileocolic anas tomosis. No new findings. Findings called to Kalie Leonard, emergency department provider. RADIATION DOSE DELIVERED: 1,066.91mGy.cm Total DLP DATA REPOSITORY: All CT scans at this facility are submitted to the National Radiology Data Registry (NRDR) Dose Index Registry (DIR) with the [employer] (ACR). RADIATION OPTIMIZATION: All CT scans at this facility use at least one of these dose optimization te chniques: automated exposure control; mA and/or kV adjustment per patient size (includes targeted exa ms where dose is matched to clinical indication); or iterative reconstruction.
[2023-01-24] MEDS: fentaNYL 100 MCG/2 ML VIAL 50 MCG IVP (15:47)
[2023-01-24 15:56] LABS: Abs Immature Grans 0.01 10^3/uL (0.0-0.06); Absolute Basophil Count 0.02 10^3/uL (0.0-0.2); Absolute Eosinophil Count 0.22 10^3/uL (0.0-0.7); Absolute Lymphocyte Count 0.68 10^3/uL (1.2-3.4); Absolute Monocyte Count 0.42 10^3/uL (0.1-0.8); Absolute Neutrophil Count 3.38 10^3/uL (1.2-6.7); Basophils % 0.4; Eosinophils % 4.7; HCT 37.9 % (40.0-50.0); HGB 12.6 g/dL (13.5-17.5); Immature Grans % 0.2; Lymphocytes % 14.4; MCH 27.5 pg (27.0-33.0); MCHC 33.2 % (32.0-36.0); MCV 83 fL (80-95); MPV 10.9 fL (8.0-11.0); Monocytes % 8.9; Neutrophils % 71.4; Platelet Count 98 10^3/uL (130-400); RBC 4.58 10^6/uL (4.36-5.78); RDW 14.7 % (11.8-14.1); WBC 4.73 10^3/uL (4.4-10.8)
[2023-01-24 16:00] LABS: Lactate 4.1 mmol/L (0.6-1.4)
[2023-01-24 16:17] LABS: ALT 21 U/L (16-63); AST 42 U/L (15-37); Albumin 2.7 g/dL (3.4-5.0); Alkaline Phosphatase 154 U/L (46-116); Anion Gap 9.5 mmol/L (3-11); BUN 15 mg/dL (7-18); Bilirubin, Total 2.5 mg/dL (0.2-1.0); CO2 24.5 mmol/L (21.0-32.0); Calcium 9.1 mg/dL (8.5-10.1); Chloride 106 mmol/L (98-107); Glucose 204 mg/dL (74-106); Magnesium 1.8 mg/dL (1.8-2.4); Potassium 4.6 mmol/L (3.5-5.1); Sodium 140 mmol/L (136-145); Total Protein 6.7 g/dL (6.4-8.2)
[2023-01-24] MEDS: Omnipaque 350 MG/ML 500 ML BTL-Imaging package 100 ML IJ (16:23)
[2023-01-24] MEDS: Lactated Ringers 1,000 ML 500 ML IV (16:33)
[2023-01-24 16:45] LABS: Bilirubin Negative (Negative); Blood Trace-intact (Negative); Clarity Cloudy (Clear); Glucose 500 mg/dL (Negative); Ketones Negative (Negative); Leukocyte Esterase Negative (Negative); Nitrite Positive (Negative); Specific Gravity 1.015 (1.005-1.025)
[2023-01-24 16:50] LABS: WBC 0-2 HPF (0-5)
[2023-01-24 16:51] LABS: Bacteria Many HPF (Negative); C & S Indicated? Yes; Casts Negative LPF (Negative); Crystals Negative HPF (Negative); Epithelial Cells Rare HPF (Negative); Mucus Negative (Negative)
[2023-01-24 17:09] LABS: Source Nasal/Nares
[2023-01-24 17:17] LABS: Lipase 70 U/L (16-77)
[2023-01-24] MEDS: HYDROmorphone 2 MG/ML SYR 1 MG IVP ×2 (17:26→22:12)
[2023-01-24] MEDS: cefTRIAXone 2 GM/50 ML BAG IVPB (17:26)
[2023-01-24 17:43] LABS: COVID-19 PCR Negative (Negative)
[2023-01-24 19:41] VITALS: BP 156/65; RESP 18; O2SAT 92
--- NOTE | 2023-01-24 22:18 | W.PM.HP.N ---
Date of service: 01/24/23 Time of Service: 22:18 Assessment and Plan Assessment and plan (1) Abdominal pain: Status: Acute Assessment and plan: ED diagnosis was pyelonephritis, but without fever and with no WBC on urinalysis I am not convince that the symptoms are related a urinary infection. Clinically this is is most consistent with another SBO, even though this was not clearly evident on the CT abd/pelvis. Given this, I will change him to NPO wih IV fluids.. If vomiting continues will ask for NG tube. I will ask for surgery to evaluate him in the morning and consider repeat imaging, at least at [facility] in the am, repeat lactate (2) Cirrhosis: Status: Acute Assessment and plan: Mr. Orellana has [id number]-Gycd 8 class B cirrhosis, with a history of portal hypertension. Continue to monitor liver function. He needs a PT/INR with next blood draw. (3) ANETTE (obstructive sleep apnea): Status: Chronic (4) Non-insulin dependent type 2 diabetes mellitus: Status: Chronic Assessment and plan: Holding metformin after CT scan. I will give weight based glargine and ISS. (5) CHF (congestive heart failure): Status: Chronic Assessment and plan: Preserved ejection fracture. I don't see signs of overt fluid overload. Will continue to monitor, especially givne IV fluids. (6) DVT prophylaxis: Assessment and plan: He is on apixaban chronically, continue this (7) Discharge planning issues: Status: Acute Assessment and plan: He is stable on the medical floor History of Present Illness History of Present Illness Chief Complaint: abdominal pain Narrative: 78 yo M with history of colon cancer with colostomy and recurrent small bowel obstructions in the past, as well as alcoholic cirrhosis with alcohol use disorder in remission, who is presenting with 3-4 days of increasing abdominal pain. Pain is severe, colicy with waves of worse pain every few minutes. Pain is centered in a band across the mid abdomen just above the umbilicus and extends down to the left lower quadrant. He states he thought he was getting the same bowel obstruction he has had before as the symptoms are similar, but was told in the ED he didn't have this on his scan. He has been more nauseous today, not eating, vomited once watery fluid since being in the hospital. He has not had output in his colostomy bag for the past 2-3 days. He notes a lot of sounds and some bloating in his abdomen. He has no dysuria or hematuria but he is having more urinary frequency. Review of Systems Constitutional Constitutional: Denies chills, Denies fever(s), Denies headache(s), Reports lethargy, Reports poor appetite and Denies weakness Eyes Eyes: Denies change in vision and Denies irritation ENT Ears, Nose, Mouth, and Throat: Denies dysphagia, Denies dizziness, Denies headache(s), Denies nasal congestion, Denies nasal discharge and Denies sore throat Cardiovascular Cardiovascular: Denies chest pain, Denies rapid heart rate, Reports dyspnea on exertion and Denies orthopnea Respiratory Respiratory: Denies cough, Denies excessive phlegm production, Reports dyspnea on exertion and Denies wheezing Gastrointestinal Gastrointestinal: Reports as per HPI, Denies melena, Denies hematochezia, Denies dysphagia, Denies heartburn and Denies hematemesis Genitourinary Genitourinary: Denies hematuria, Denies dysuria and Reports urinary incontinence Musculoskeletal Musculoskeletal: Reports back pain (chronic, but worse recently) Integumentary/Breasts Skin/Breast: Denies rash and Denies skin ulcer Neurologic Neurologic: Denies confusion, Denies dizziness, Denies headache(s), Denies sensory deficit and Denies weakness Psychiatric Psychiatric: Denies confusion and Denies mood swings Hematologic/Lymphatic Hematologic/Lymphatic: Denies easy bleeding Allergic/Immunologic Allergic/Immunologic: Denies wheezing PFSH All Active Problems (Updated 01/24/23 @ 22:36 by Elia Arizmendi) Discharge planning issues (Acute) Abdominal pain (Acute) COVID (Acute) Advanced care planning/counseling discussion (Acute) Chronic low back pain (Chronic) ANETTE (obstructive sleep apnea) (Chronic) Recurrent intestinal obstruction (Acute) History of colon cancer (Acute) Chronic anticoagulation (Acute) Portal hypertension (Acute) Cirrhosis (Acute) [place] [facility] [place] 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, Dx [facility] as per pt Palliative care encounter Followed by [facility] Surgical History Colostomy in place H/O left hemicolectomy S/P TIPS (transjugular intrahepatic portosystemic shunt) Social History (Updated 01/24/23 @ 22:28 by Elia Arizmendi) Smoking/Tobacco Use Status: Former Tobacco Use Smoking risk assessment performed?: Yes Alcohol Intake: former Drug use: Never Substance use type: does not use Do you feel safe at home: Yes Do you feel safe in your relationship?: Yes Additional Social history: Lives with , son, and sick [id number] in [place], moved up from [place] in 2019. [place]. Meds Allergies and Home Medications Allergies Allergy/AdvReac Type Severity Reaction Status Date / Time Penicillins Allergy Mild Itching Unverified 01/24/23 14:49 morphine AdvReac Severe vomiting Unverified 01/24/23 14:49 mussels AdvReac Severe vomiting Unverified 01/24/23 14:49 Home Medications Medication Instructions Recorded Confirmed Type acetaminophen 325 mg capsule 650 mg PO Q6H PRN 11/08/22 01/24/23 History (Tylenol) apixaban 5 mg tablet (Eliquis) 5 mg PO BID 11/08/22 01/24/23 History empagliflozin 25 mg tablet 25 mg PO DAILY 11/08/22 01/24/23 History (Jardiance) furosemide 20 mg tablet (Lasix) 20 mg PO DAILY 11/08/22 01/24/23 History levothyroxine 200 mcg tablet 200 mcg PO DAILY 11/08/22 01/24/23 History metformin 1,000 mg tablet 1,000 mg PO BID 11/08/22 01/24/23 History pantoprazole 40 mg tablet,delayed 40 mg PO DAILY 11/08/22 01/24/23 History release prazosin 5 mg capsule 10 mg PO QHS 11/08/22 01/24/23 History pregabalin 50 mg capsule 50 mg PO BID 11/08/22 01/24/23 History spironolactone 25 mg tablet 25 mg PO DAILY 11/08/22 01/24/23 History valsartan 40 mg tablet 40 mg PO BID 11/08/22 01/24/23 History venlafaxine 150 mg 150 mg PO DAILY 11/08/22 01/24/23 History capsule,extended release 24 hr tamsulosin 0.4 mg capsule 0.4 mg PO DAILY 11/29/22 01/24/23 History carvedilol 3.125 mg tablet 6.25 mg PO BID 12/27/22 01/24/23 History docusate sodium 50 mg capsule 50 mg PO DAILY 10 days #10 caps 01/23/23 01/24/23 Rx (Colace Clear) Exam Narrative Exam Narrative: GEN: Alert and oriented, pleasant and cooperative, gives linear history. He is shifting in bed and holding abdomen during waves of pain, some acute distress at rest. HEENT: Head atraumatic. Conjunctiva clear, no icterus. PEERL, EOMI. no rhinorrhea. MMM, OP benign. Neck is supple with no masses or lymphadenopathy, trachea midline LUNGS: CTAB with normal effort CV: irregular. no murmurs, gallops, or rubs. ABD: +BS, high pitched in mid abdomen. Firm around midline scar. tenderness to deep palpation in perumbilical to LLQ. no rebound. EXT: no cyanosis, clubbing, or edema MSK: No joint redness or swelling NEURO: CN 2-12 grossly intact. Normal movement of 4 extremities. Normal speech and coordination SKIN: No rashes or open wounds. brusing on forearms. PSYCH: normal mood and affect Results Imaging CT scan - pelvis: report reviewed (Stable appearance dilated proximal colon and adjacent small bowel in the region of the ileocolic anastomosis. No new findings. ) Labs 01/24/23 15:35 01/24/23 15:35 Labs: Laboratory Results - last 24 hr 01/24/23 01/24/23 01/24/23 15:35 15:35 15:35 WBC 4.73 RBC 4.58 Hgb 12.6 L Hct 37.9 L MCV 83 MCH 27.5 MCHC 33.2 RDW 14.7 H Plt Count 98 L MPV 10.9 Immature Gran % 0.2 Neutrophils % 71.4 Lymphocytes % 14.4 Monocytes % 8.9 Eosinophils % 4.7 Basophils % 0.4 Nucleated RBC % 0.0 Absolute Neutrophils 3.38 Absolute Lymphocytes 0.68 L Absolute Monocytes 0.42 Absolute Eosinophils 0.22 Absolute Basophils 0.02 VBG Lactate 4.1 H* Sodium 140 Potassium 4.6 Chloride 106 Carbon Dioxide 24.5 Anion Gap 9.5 BUN 15 Creatinine 1.0 Est GFR (CKD-EPI 2020) 78.00 Glucose 204 H Calcium 9.1 Magnesium 1.8 Total Bilirubin 2.5 H AST 42 H ALT 21 Alkaline Phosphatase 154 H Total Protein 6.7 Albumin 2.7 L Lipase Urine Color Urine Clarity Urine pH Ur Specific [place] Urine Protein Urine Ketones Urine Blood Urine Nitrite Urine Bilirubin Urine Urobilinogen Ur Leukocyte Esterase Urine RBC Urine WBC Ur Epithelial Cells Urine Crystals Urine Bacteria Urine Casts Urine Mucus Ur Culture Indicated? Urine Glucose COVID-19 Source SARS-CoV-2 (PCR) 01/24/23 01/24/23 01/24/23 15:35 16:37 17:08 WBC RBC Hgb Hct MCV MCH MCHC RDW Plt Count MPV Immature Gran % Neutrophils % Lymphocytes % Monocytes % Eosinophils % Basophils % Nucleated RBC % Absolute Neutrophils Absolute Lymphocytes Absolute Monocytes Absolute Eosinophils Absolute Basophils VBG Lactate Sodium Potassium Chloride Carbon Dioxide Anion Gap BUN Creatinine Est GFR (CKD-EPI 2020) Glucose Calcium Magnesium Total Bilirubin AST ALT Alkaline Phosphatase Total Protein Albumin Lipase 70 Urine Color Yellow Urine Clarity Cloudy Urine pH 6.0 Ur Specific [place] 1.015 Urine Protein 30 H Urine Ketones Negative Urine Blood Trace-intact H Urine Nitrite Positive H Urine Bilirubin Negative Urine Urobilinogen 2.0 H Ur Leukocyte Esterase Negative Urine RBC 3-5 H Urine WBC 0-2 Ur Epithelial Cells Rare Urine Crystals Negative Urine Bacteria Many Urine Casts Negative Urine Mucus Negative Ur Culture Indicated? Yes Urine Glucose 500 H COVID-19 Source Nasal/Nares SARS-CoV-2 (PCR) Negative Last Vital Signs Temp 35.7 C L 01/24/23 14:42 Pulse 66 01/24/23 14:42 Resp 18 01/24/23 19:41 BP 156/65 H 01/24/23 19:41 Pulse Ox 92 01/24/23 19:41 Time Spent Time spent with Patient: 55-74 minutes Time was spent: preparing to see the patient(eg.review tests), obtaining and/or reviewing separately otained hiistory, ordering medications,tests, procedures, referring, communicating with other health residential care facility manager and indepentently interpreting results
[2023-01-24] MEDS: Pregabalin 50 MG CAP PO (22:55)
[2023-01-24] MEDS: Prazosin 2 MG CAP 10 MG PO (22:55)
[2023-01-24] MEDS: Insulin Glargine 300 UNITS/3 ML PEN 20 UNITS SC (22:55)
[2023-01-24] MEDS: POTASSIUM CHLORIDE/D5-0.45NACL 1,000 ML 125 MEQ IV (22:56)
--- NOTE | 2023-01-25 | DI.RAD_ITS ---
Exam(s) XR ABDOMEN FLAT PLATE EXAM: XR ABDOMEN FLAT PLATE CLINICAL HISTORY: gastrografin challenge. PSBO vs SBO. TECHNIQUE: 2D digital imaging was performed. COMPARISON: CR XR ABDOMEN FLAT PLATE from 12/09/[address] ABDOMEN PELVIS W from 01/24/2023 FINDINGS: 3 supine views: In the right upper quadrant there is a TIPS shunt stent. This was also evident on recent CT scan. There is oral contrast-probable Gastrografin. The majority of this is in the colon from proximal col on to the rectum. Colon diameters normal. There is small amount of remaining oral contrast in nondi lated right of center small bowel loops. IMPRESSION: Oral contrast has passed into the colon. DATA REPOSITORY: RADIATION DOSE DELIVERED:
[2023-01-25] MEDS: Valsartan 40 MG TAB PO ×3 (01:21→20:30)
[2023-01-25] MEDS: oxyCODONE 5 MG TAB PO ×2 (02:35→06:37)
[2023-01-25] MEDS: Ondansetron 4 MG/2 ML VIAL IVP ×2 (02:35→08:02)
[2023-01-25] MEDS: Levothyroxine 200 MCG TAB PO (05:42)
[2023-01-25] MEDS: POTASSIUM CHLORIDE/D5-0.45NACL 1,000 ML 125 MEQ IV ×2 (06:39→23:17)
[2023-01-25 06:48] LABS: Lactate 2.1 mmol/L (0.6-1.4)
[2023-01-25 06:53] LABS: Abs Immature Grans 0.04 10^3/uL (0.0-0.06); Absolute Basophil Count 0.03 10^3/uL (0.0-0.2); Absolute Eosinophil Count 0.03 10^3/uL (0.0-0.7); Absolute Lymphocyte Count 0.37 10^3/uL (1.2-3.4); Absolute Monocyte Count 0.64 10^3/uL (0.1-0.8); Absolute Neutrophil Count 9.15 10^3/uL (1.2-6.7); Basophils % 0.3; Eosinophils % 0.3; HCT 36.6 % (40.0-50.0); HGB 11.8 g/dL (13.5-17.5); Immature Grans % 0.4; Lymphocytes % 3.6; MCH 26.9 pg (27.0-33.0); MCHC 32.2 % (32.0-36.0); MCV 84 fL (80-95); MPV 10.2 fL (8.0-11.0); Monocytes % 6.2; Neutrophils % 89.2; RBC 4.38 10^6/uL (4.36-5.78); RDW 14.6 % (11.8-14.1); RDW-SD 44.5 fL; WBC 10.26 10^3/uL (4.4-10.8)
[2023-01-25 06:58] LABS: INR 1.1 (0.9-1.1); Prothrombin Time 11.4 sec (9.3-11.0)
[2023-01-25 07:08] LABS: ALT 17 U/L (16-63); AST 32 U/L (15-37); Albumin 2.7 g/dL (3.4-5.0); Alkaline Phosphatase 152 U/L (46-116); Anion Gap 9.6 mmol/L (3-11); BUN 15 mg/dL (7-18); Bilirubin, Total 2.4 mg/dL (0.2-1.0); CO2 24.4 mmol/L (21.0-32.0); Calcium 8.8 mg/dL (8.5-10.1); Chloride 107 mmol/L (98-107); Glucose 251 mg/dL (74-106); Potassium 4.3 mmol/L (3.5-5.1); Sodium 141 mmol/L (136-145); Total Protein 6.5 g/dL (6.4-8.2)
[2023-01-25 07:24] LABS: Platelet Count 90 10^3/uL (130-400)
[2023-01-25 07:30] LABS: Hemoglobin A1C 8.1 % (<5.7)
[2023-01-25 07:33] VITALS: BP 150/64; PULSE 85; RESP 16; TEMP 37; O2SAT 94
[2023-01-25 08:00] VITALS: O2SAT 96
[2023-01-25] MEDS: Apixaban 5 MG TAB PO ×2 (08:04→20:30)
[2023-01-25] MEDS: Empaglifozin 25 MG TAB PO (08:04)
[2023-01-25] MEDS: Pantoprazole 40 MG TABCR PO (08:04)
[2023-01-25] MEDS: Pregabalin 50 MG CAP PO ×2 (08:05→20:30)
[2023-01-25] MEDS: Venlafaxine 150 MG CAPCR PO (08:05)
[2023-01-25] MEDS: Tamsulosin 0.4 MG CAPCR PO (08:05)
[2023-01-25] MEDS: Docusate Sodium 100 MG/10 ML CUP 50 MG PO (08:05)
[2023-01-25] MEDS: Carvedilol 3.125 MG TAB 6.25 MG PO ×2 (08:05→20:30)
[2023-01-25] MEDS: Insulin Aspart 300 UNITS/3 ML PEN SC ×3 (08:32→17:07)
--- NOTE | 2023-01-25 10:24 | PDOC.CMIN ---
- If Service Date Differs Date of service: 01/25/23 Time of Service: 10:24 Care Management Initial Assess REASON FOR HOSPITALIZATION:: Pyelnephritis. PAST MEDICAL HISTORY/PAST SURGICAL HISTORY:: All Active Problems: Discharge planning issues (Acute), Abdominal pain (Acute), COVID (Acute), Advanced care planning/counseling discussion (Acute), Chronic low back pain (Chronic), ANETTE (obstructive sleep apnea) (Chronic), Recurrent intestinal obstruction (Acute), History of colon cancer (Acute), Chronic anticoagulation (Acute), Portal hypertension (Acute),. Cirrhosis (Acute) - TIPs placed (?when, [facility] [place] [facility]?), Confusion (Acute), Depression (Chronic), Non-insulin dependent type 2 diabetes mellitus (Chronic), Incontinence (Acute), Hypertension (Chronic), Scleral icterus (Acute), and CHF (congestive heart failure) (Chronic). Medical History: Colon cancer, DVT prophylaxis, Endocarditis - September 2022, [facility] as per pt, and Palliative care encounter -. Followed by [facility]. Surgical History: Colostomy in place, H/O left hemicolectomy, and S/P TIPS (transjugular intrahepatic portosystemic shunt). PREVIOUS FUNCTIONAL STATUS/SOCIAL/FAMILY SUPPORTS:: Merrill lives in [place] with his , Clary, his son Osmar Gibson who is disabled, and his vedcebk-jv-ley Fuad who has stage IV lung cancer. 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 He is an [employer] and is 100% [facility] connected. He is independent with his ADLs at baseline. CURRENT FUNCTIONAL STATUS:: Merrill is lying in bed when CM comes to meet with him. He is pleasant and easily engages in conversation. He reports he is NPO and says he would love a cup of coffee but understands he cannot have one at this time. He reports feeling tired and not feeling well. ADVANCE DIRECTIVES:: None on file; patient declines form saying his knows what his wishes are. Has patient been provided with info about the portal/API?: Yes Did the patient sign up for the portal?: No CODE STATUS:: Full Code INSURANCE COVERAGE / FINANCIAL ISSUES:: [place] CURRENT HOME/COMMUNITY SERVICES/EQUIPMENT:: Home Health RN, walker, cane, scooter, cpap and colostomy. PRIMARY CARE PHYSICIAN:: Osmar Carver MD ([place]) POTENTIAL DISCHARGE NEEDS:: Follow up appointment with PCP and resumption of HH RN services. PATIENT/FAMILY EDUCATION NEEDS:: Review of discharge instructions including medication and limitations; discuss Ask Me Three and self management. ANTICIPATED BARRIERS TO DISCHARGE:: None identified at this time. TRANSPORTATION:: Via [facility] private hyster driver. PLAN:: Merrill will likely be discharged home with a resumption of HH nursing when medically cleared by provider. He will follow up with his PCP and plan of care as directed. He will be transported home via [facility] private hyster driver when ready. CM will continue to follow.
--- NOTE | 2023-01-25 10:33 | PGE_ITS ---
Date of Service Date of service: 01/25/23 Time of Service: 10:33 Assessment and Plan Assessment and plan (1) Abdominal pain: Status: Acute Assessment and plan: SBO v PSBO, this was not clearly evident on the CT abd/pelvis. Continue NPO with IV fluids.. If vomiting continues will ask for NG tube. Surgery consult - gastrografen challenge ordered by surgery; he has extensive abdominal surgical hx; will treat medically, not a surgery candidate here, surgery will follow along with us (2) Asymptomatic bacteriuria: Status: Acute Assessment and plan: UA negative, UC growing Serratia Marcescens - discussed with Dr Alberts, no abx needed, not a UTI - no WBC and no leukocyte esterase (3) Cirrhosis: Assessment and plan: Yavia-Bpsejrjo-Sutn 8 class B cirrhosis, with a history of portal hypertension. Continue to monitor liver function. INR 1.1. (4) ANETTE (obstructive sleep apnea): (5) Non-insulin dependent type 2 diabetes mellitus: Status: Chronic Assessment and plan: Holding metformin after CT scan. Continue weight based glargine and ISS. (6) CHF (congestive heart failure): Status: Chronic Assessment and plan: Preserved ejection fracture. no overt fluid overload. Will continue to monitor, especially given IV fluids. (7) DVT prophylaxis: Assessment and plan: Continue chronic apixaban (8) Discharge planning issues: Assessment and plan: Discharge to home when stable Discussed with Dr Alberts Subjective Subjective Patient reports: no new complaints, tolerating a regular diet, no bowel movement and afebrile; denies diarrhea, vomiting, shortness of breath or fever Exam Const General: cooperative, healthy appearing, comfortable, no acute distress and well developed Nutritional Appearance: well nourished and overweight Orientation: alert and awake [facility] Head: normal to inspection Mouth: moist mucous membranes Resp Effort & Inspection: normal respiratory effort, able to speak in complete s entences and no respiratory distress Auscultation: clear to auscultation bilaterally, no rales, no rhonchi and no wheezes Cardio Rate: regular rate Rhythm: regular rhythm Heart Sounds: S1 normal and S2 normal GI Inspection: distended and no visible herniation Palpation: soft, no guarding, not rigid and tender (mildly diffusely tender, more on the left than right, no real focal pain) Percussion: normal to percussion Auscultation: hyperactive bowel sounds Back/Spine/Pelvis Back: CVA tenderness (left) Skin General skin exam: no rashes or lesions noted Trauma: no lacerations or abrasions Neuro General: patient alert and patient awake Cognition: normal cognition Speech: speech normal Gait: normal gait Psych Appearance: grossly normal and well kempt Mental Status: mental status grossly normal Speech and Movement: speech and movement normal Objective Last Vital Signs Temp 37 C 01/25/23 07:33 Pulse 85 01/25/23 07:33 Resp 16 01/25/23 07:33 BP 150/64 H 01/25/23 07:33 Pulse Ox 94 01/25/23 07:33 Laboratory Results - last 24 hr 01/24/23 01/24/23 01/24/23 15:35 15:35 15:35 WBC 4.73 RBC 4.58 Hgb 12.6 L Hct 37.9 L MCV 83 MCH 27.5 MCHC 33.2 RDW 14.7 H Plt Count 98 L MPV 10.9 Immature Gran % 0.2 Neutrophils % 71.4 Lymphocytes % 14.4 Monocytes % 8.9 Eosinophils % 4.7 Basophils % 0.4 Nucleated RBC % 0.0 Absolute Neutrophils 3.38 Absolute Lymphocytes 0.68 L Absolute Monocytes 0.42 Absolute Eosinophils 0.22 Absolute Basophils 0.02 PT INR VBG Lactate 4.1 H* Sodium 140 Potassium 4.6 Chloride 106 Carbon Dioxide 24.5 Anion Gap 9.5 BUN 15 Creatinine 1.0 Est GFR (CKD-EPI 2020) 78.00 Glucose 204 H Hemoglobin A1c Calcium 9.1 Magnesium 1.8 Total Bilirubin 2.5 H AST 42 H ALT 21 Alkaline Phosphatase 154 H Total Protein 6.7 Albumin 2.7 L Lipase Urine Color Urine Clarity Urine pH Ur Specific [place] Urine Protein Urine Ketones Urine Blood Urine Nitrite Urine Bilirubin Urine Urobilinogen Ur Leukocyte Esterase Urine RBC Urine WBC Ur Epithelial Cells Urine Crystals Urine Bacteria Urine Casts Urine Mucus Ur Culture Indicated? Urine Glucose COVID-19 Source SARS-CoV-2 (PCR) 01/24/23 01/24/23 01/24/23 15:35 16:37 17:08 WBC RBC Hgb Hct MCV MCH MCHC RDW Plt Count MPV Immature Gran % Neutrophils % Lymphocytes % Monocytes % Eosinophils % Basophils % Nucleated RBC % Absolute Neutrophils Absolute Lymphocytes Absolute Monocytes Absolute Eosinophils Absolute Basophils PT INR VBG Lactate Sodium Potassium Chloride Carbon Dioxide Anion Gap BUN Creatinine Est GFR (CKD-EPI 2020) Glucose Hemoglobin A1c Calcium Magnesium Total Bilirubin AST ALT Alkaline Phosphatase Total Protein Albumin Lipase 70 Urine Color Yellow Urine Clarity Cloudy Urine pH 6.0 Ur Specific [place] 1.015 Urine Protein 30 H Urine Ketones Negative Urine Blood Trace-intact H Urine Nitrite Positive H Urine Bilirubin Negative Urine Urobilinogen 2.0 H Ur Leukocyte Esterase Negative Urine RBC 3-5 H Urine WBC 0-2 Ur Epithelial Cells Rare Urine Crystals Negative Urine Bacteria Many Urine Casts Negative Urine Mucus Negative Ur Culture Indicated? Yes Urine Glucose 500 H COVID-19 Source Nasal/Nares SARS-CoV-2 (PCR) Negative 01/25/23 01/25/23 01/25/23 06:34 06:34 06:34 WBC 10.26 RBC 4.38 Hgb 11.8 L Hct 36.6 L MCV 84 MCH 26.9 L MCHC 32.2 RDW 14.6 H Plt Count 90 L MPV 10.2 Immature Gran % 0.4 Neutrophils % 89.2 Lymphocytes % 3.6 Monocytes % 6.2 Eosinophils % 0.3 Basophils % 0.3 Nucleated RBC % 0.0 Absolute Neutrophils 9.15 H Absolute Lymphocytes 0.37 L Absolute Monocytes 0.64 Absolute Eosinophils 0.03 Absolute Basophils 0.03 PT INR VBG Lactate Sodium 141 Potassium 4.3 Chloride 107 Carbon Dioxide 24.4 Anion Gap 9.6 BUN 15 Creatinine 1.0 Est GFR (CKD-EPI 2020) 78.00 Glucose 251 H Hemoglobin A1c 8.1 H Calcium 8.8 Magnesium Total Bilirubin 2.4 H AST 32 ALT 17 Alkaline Phosphatase 152 H Total Protein 6.5 Albumin 2.7 L Lipase Urine Color Urine Clarity Urine pH Ur Specific [place] Urine Protein Urine Ketones Urine Blood Urine Nitrite Urine Bilirubin Urine Urobilinogen Ur Leukocyte Esterase Urine RBC Urine WBC Ur Epithelial Cells Urine Crystals Urine Bacteria Urine Casts Urine Mucus Ur Culture Indicated? Urine Glucose COVID-19 Source SARS-CoV-2 (PCR) 01/25/23 01/25/23 06:34 06:36 WBC RBC Hgb Hct MCV MCH MCHC RDW Plt Count MPV Immature Gran % Neutrophils % Lymphocytes % Monocytes % Eosinophils % Basophils % Nucleated RBC % Absolute Neutrophils Absolute Lymphocytes Absolute Monocytes Absolute Eosinophils Absolute Basophils PT 11.4 H INR 1.1 VBG Lactate 2.1 H Sodium Potassium Chloride Carbon Dioxide Anion Gap BUN Creatinine Est GFR (CKD-EPI 2020) Glucose Hemoglobin A1c Calcium Magnesium Total Bilirubin AST ALT Alkaline Phosphatase Total Protein Albumin Lipase Urine Color Urine Clarity Urine pH Ur Specific [place] Urine Protein Urine Ketones Urine Blood Urine Nitrite Urine Bilirubin Urine Urobilinogen Ur Leukocyte Esterase Urine RBC Urine WBC Ur Epithelial Cells Urine Crystals Urine Bacteria Urine Casts Urine Mucus Ur Culture Indicated? Urine Glucose COVID-19 Source SARS-CoV-2 (PCR) Time Spent with Patient Time Spent with Patient: 25-34 minutes Time was spent: preparing to see the patient(eg.review tests), ordering medications,tests, procedures, referring, communicating with other health healthcare administrative assistant, indepentently interpreting results, counseling the patient and care coordination
--- NOTE | 2023-01-25 11:40 | W.SURGCON ---
Date of service: 01/25/23 Time of Service: 11:41 Assessment and Plan Assessment and plan (1) Abdominal pain: Status: Acute Assessment and plan: 78 year old male with abdominal pain. 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 No transition zone is noted. ? PSBO vs constipation. He is no longer nauseated. HIs abdominal exam is benign. I will order a gastrografin challage. If the contrast makes it through to his ostomy then recomnmend starting on clear liquids and advancing as tolerated. He may also benefit from Miralax on a daily basis. If it looks like a PSBO or SBO then will continue with conservative treatment. If he does need surgery then he will need to be transfered to a tertiary center. We discussed that given his extensive abdominal surgical history, the plan will be for conservative management as long as he remains stable and shows signs of improvement. He understands and is in agreement with the plan. Case discussed with Dr. Alberts History of Present Illness Narrative: Mr. Orellana is a pleasant 78 year old male whom I was asked to see by Dr. Mg for abdominal pain and ? SBO. His PSHx is significant for a history of a proctosigmoidectomy with end colostomy approximately 30 years ago for cancer. 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 The patient reports that his surgeon recommended that he should not have another abdominal surgery.? He states that since his colostomy placement he has had 30 episodes of obstructive symptoms, but has never required surgery for them. He presented last night with symptoms suspicious for PSBO vs SBO. He was nauseated and vomiting. His nausea this morning has subsided as well as his vomiting. He states that the nurse did change his ostomy bag as it was full of stool and air. His abdominal pain has also decreased significantly. His PMHx is significant for ANETTE, portal hypertension s/p shunt, cirrhosis, type 2 DM, HTN and CHF Consults Consult date: 01/24/23 Requesting physician: Elia Arizmendi Review of Systems Constitutional Constitutional: Denies fever(s), Denies headache(s), Reports poor appetite and Denies weight loss Eyes Eyes: Reports system reviewed and no additional complaints, except as documented ENT Ears, Nose, Mouth, and Throat: Reports system reviewed and no additional complaints, except as documented and Denies headache(s) Cardiovascular Cardiovascular: Reports system reviewed and no additional complaints, except as documented Respiratory Respiratory: Reports system reviewed and no additional complaints, except as documented Gastrointestinal Gastrointestinal: Reports as per HPI Genitourinary Genitourinary: Reports system reviewed and no additional complaints, except as documented Musculoskeletal Musculoskeletal: Reports system reviewed and no additional complaints, except as documented Integumentary/Breasts Skin/Breast: Reports system reviewed and no additional complaints, except as documented Neurologic Neurologic: Denies headache(s) Psychiatric Psychiatric: Reports system reviewed and no additional complaints, except as documented Endocrine Endocrine: Reports system reviewed and no additional complaints, except as documented Hematologic/Lymphatic Hematologic/Lymphatic: Reports system reviewed and no additional complaints, except as documented Allergic/Immunologic Allergic/Immunologic: Reports system reviewed and no additional complaints, except as documented PFSH All Active Problems Acute pyelonephritis (Acute) Discharge planning issues (Acute) Abdominal pain (Acute) COVID (Acute) Advanced care planning/counseling discussion (Acute) Chronic low back pain (Chronic) ANETTE (obstructive sleep apnea) (Chronic) Recurrent intestinal obstruction (Acute) History of colon cancer (Acute) Chronic anticoagulation (Acute) Portal hypertension (Acute) Cirrhosis (Acute) TIPs placed (?when, 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 [place]. Exam Const General: cooperative, healthy appearing, comfortable and no acute distress Nutritional Appearance: overweight HENMT Head: normocephalic and atraumatic Resp Effort & Inspection: normal respiratory effort Auscultation: clear to auscultation bilaterally Cardio Rate: regular rate Rhythm: abnormal rhythm Heart Sounds: no murmurs GI Palpation: soft and nontender Other: ostomy bag with formed stool and some air Results Last Vital Signs Temp 98.6 F 01/25/23 07:33 Pulse 85 01/25/23 07:33 Resp 16 01/25/23 07:33 BP 150/64 H 01/25/23 07:33 Pulse Ox 94 01/25/23 07:33 Labs 01/25/23 06:34 01/25/23 06:34 Labs: Laboratory Results - last 24 hr 01/24/23 01/24/23 01/24/23 15:35 15:35 15:35 WBC 4.73 RBC 4.58 Hgb 12.6 L Hct 37.9 L MCV 83 MCH 27.5 MCHC 33.2 RDW 14.7 H Plt Count 98 L MPV 10.9 Immature Gran % 0.2 Neutrophils % 71.4 Lymphocytes % 14.4 Monocytes % 8.9 Eosinophils % 4.7 Basophils % 0.4 Nucleated RBC % 0.0 Absolute Neutrophils 3.38 Absolute Lymphocytes 0.68 L Absolute Monocytes 0.42 Absolute Eosinophils 0.22 Absolute Basophils 0.02 PT INR VBG Lactate 4.1 H* Sodium 140 Potassium 4.6 Chloride 106 Carbon Dioxide 24.5 Anion Gap 9.5 BUN 15 Creatinine 1.0 Est GFR (CKD-EPI 2020) 78.00 Glucose 204 H Hemoglobin A1c Calcium 9.1 Magnesium 1.8 Total Bilirubin 2.5 H AST 42 H ALT 21 Alkaline Phosphatase 154 H Total Protein 6.7 Albumin 2.7 L Lipase Urine Color Urine Clarity Urine pH Ur Specific [place] Urine Protein Urine Ketones Urine Blood Urine Nitrite Urine Bilirubin Urine Urobilinogen Ur Leukocyte Esterase Urine RBC Urine WBC Ur Epithelial Cells Urine Crystals Urine Bacteria Urine Casts Urine Mucus Ur Culture Indicated? Urine Glucose COVID-19 Source SARS-CoV-2 (PCR) 01/24/23 01/24/23 01/24/23 15:35 16:37 17:08 WBC RBC Hgb Hct MCV MCH MCHC RDW Plt Count MPV Immature Gran % Neutrophils % Lymphocytes % Monocytes % Eosinophils % Basophils % Nucleated RBC % Absolute Neutrophils Absolute Lymphocytes Absolute Monocytes Absolute Eosinophils Absolute Basophils PT INR VBG Lactate Sodium Potassium Chloride Carbon Dioxide Anion Gap BUN Creatinine Est GFR (CKD-EPI 2020) Glucose Hemoglobin A1c Calcium Magnesium Total Bilirubin AST ALT Alkaline Phosphatase Total Protein Albumin Lipase 70 Urine Color Yellow Urine Clarity Cloudy Urine pH 6.0 Ur Specific [place] 1.015 Urine Protein 30 H Urine Ketones Negative Urine Blood Trace-intact H Urine Nitrite Positive H Urine Bilirubin Negative Urine Urobilinogen 2.0 H Ur Leukocyte Esterase Negative Urine RBC 3-5 H Urine WBC 0-2 Ur Epithelial Cells Rare Urine Crystals Negative Urine Bacteria Many Urine Casts Negative Urine Mucus Negative Ur Culture Indicated? Yes Urine Glucose 500 H COVID-19 Source Nasal/Nares SARS-CoV-2 (PCR) Negative 01/25/23 01/25/23 01/25/23 06:34 06:34 06:34 WBC 10.26 RBC 4.38 Hgb 11.8 L Hct 36.6 L MCV 84 MCH 26.9 L MCHC 32.2 RDW 14.6 H Plt Count 90 L MPV 10.2 Immature Gran % 0.4 Neutrophils % 89.2 Lymphocytes % 3.6 Monocytes % 6.2 Eosinophils % 0.3 Basophils % 0.3 Nucleated RBC % 0.0 Absolute Neutrophils 9.15 H Absolute Lymphocytes 0.37 L Absolute Monocytes 0.64 Absolute Eosinophils 0.03 Absolute Basophils 0.03 PT INR VBG Lactate Sodium 141 Potassium 4.3 Chloride 107 Carbon Dioxide 24.4 Anion Gap 9.6 BUN 15 Creatinine 1.0 Est GFR (CKD-EPI 2020) 78.00 Glucose 251 H Hemoglobin A1c 8.1 H Calcium 8.8 Magnesium Total Bilirubin 2.4 H AST 32 ALT 17 Alkaline Phosphatase 152 H Total Protein 6.5 Albumin 2.7 L Lipase Urine Color Urine Clarity Urine pH Ur Specific [place] Urine Protein Urine Ketones Urine Blood Urine Nitrite Urine Bilirubin Urine Urobilinogen Ur Leukocyte Esterase Urine RBC Urine WBC Ur Epithelial Cells Urine Crystals Urine Bacteria Urine Casts Urine Mucus Ur Culture Indicated? Urine Glucose COVID-19 Source SARS-CoV-2 (PCR) 01/25/23 01/25/23 06:34 06:36 WBC RBC Hgb Hct MCV MCH MCHC RDW Plt Count MPV Immature Gran % Neutrophils % Lymphocytes % Monocytes % Eosinophils % Basophils % Nucleated RBC % Absolute Neutrophils Absolute Lymphocytes Absolute Monocytes Absolute Eosinophils Absolute Basophils PT 11.4 H INR 1.1 VBG Lactate 2.1 H Sodium Potassium Chloride Carbon Dioxide Anion Gap BUN Creatinine Est GFR (CKD-EPI 2020) Glucose Hemoglobin A1c Calcium Magnesium Total Bilirubin AST ALT Alkaline Phosphatase Total Protein Albumin Lipase Urine Color Urine Clarity Urine pH Ur Specific [place] Urine Protein Urine Ketones Urine Blood Urine Nitrite Urine Bilirubin Urine Urobilinogen Ur Leukocyte Esterase Urine RBC Urine WBC Ur Epithelial Cells Urine Crystals Urine Bacteria Urine Casts Urine Mucus Ur Culture Indicated? Urine Glucose COVID-19 Source SARS-CoV-2 (PCR) Imaging Abdomen CT scan report/results: report reviewed and image reviewed CT scan - pelvis: report reviewed and image reviewed
[2023-01-25] MEDS: Gastrografin 120 ML BTL PO (12:31)
--- NOTE | 2023-01-25 13:15 | NUR.NOTE ---
Nursing Note: 1300 patient has completed his drink. He will be ready for his procedure at 1500.
[2023-01-25 16:02] VITALS: BP 178/79; PULSE 60; RESP 18; TEMP 36.7; O2SAT 92
--- NOTE | 2023-01-25 18:23 | DI.VRAD_ITS ---
PROCEDURE INFORMATION: Exam: XR Abdomen Exam date and time: 01/25/2023 4:10 PM Age: 78 years old Clinical indication: Other: Gastrografin challenge. Psbo vs sbo; Prior surgery; Surgery date: 6+ months; Surgery type: Colostomy; Patient HX: Gastrografin challenge psbo vs sbo TECHNIQUE: Imaging protocol: Radiologic exam of the abdomen. Views: Frontal supine view of the abdomen. 1 View. COMPARISON: CT ABDOMEN PELVIS W 01/24/2023 4:23 PM FINDINGS: Gastrointestinal tract: Residual contrast noted in the colon. No abnormally dilated bowel loops. Bones/joints: Moderate degenerative changes noted in the lumbar spine. Mild degenerative changes noted in the hip joints Devices: Portosystemic shunt noted IMPRESSION: No acute abnormality Dictated and Authenticated by: Drew Tilley MD. Ordering:MINERVA Villarreal MD
[2023-01-25] MEDS: Prazosin 2 MG CAP 10 MG PO (22:50)
[2023-01-25 23:36] VITALS: BP 181/74; PULSE 55; RESP 18; TEMP 36.6; O2SAT 90
[2023-01-26 07:00] LABS: Anion Gap 9.7 mmol/L (3-11); BUN 16 mg/dL (7-18); CO2 24.3 mmol/L (21.0-32.0); CREATININE 0.9 mg/dL (0.70-1.30); Calcium 8.1 mg/dL (8.5-10.1); Chloride 113 mmol/L (98-107); Estimated GFR 88.51 (mL/min/1.73m2); Glucose 134 mg/dL (74-106); Magnesium 1.9 mg/dL (1.8-2.4); Potassium 3.5 mmol/L (3.5-5.1); Sodium 147 mmol/L (136-145)
[2023-01-26 07:02] LABS: Abs Immature Grans 0.01 10^3/uL (0.0-0.06); Absolute Basophil Count 0.02 10^3/uL (0.0-0.2); Absolute Eosinophil Count 0.26 10^3/uL (0.0-0.7); Absolute Lymphocyte Count 0.81 10^3/uL (1.2-3.4); Absolute Monocyte Count 0.38 10^3/uL (0.1-0.8); Absolute Neutrophil Count 2.03 10^3/uL (1.2-6.7); Basophils % 0.6; Eosinophils % 7.4; HCT 34.4 % (40.0-50.0); HGB 10.9 g/dL (13.5-17.5); Immature Grans % 0.3; Lymphocytes % 23.1; MCH 26.5 pg (27.0-33.0); MCHC 31.7 % (32.0-36.0); MCV 84 fL (80-95); MPV 11.6 fL (8.0-11.0); Monocytes % 10.8; Neutrophils % 57.8; RBC 4.11 10^6/uL (4.36-5.78); RDW 15.1 % (11.8-14.1); RDW-SD 45.4 fL; WBC 3.51 10^3/uL (4.4-10.8)
[2023-01-26 07:41] VITALS: BP 176/72; PULSE 56; RESP 18; TEMP 35.7; O2SAT 93
[2023-01-26 07:43] LABS: Platelet Count 77 10^3/uL (130-400)
[2023-01-26] MEDS: POTASSIUM CHLORIDE/D5-0.45NACL 1,000 ML 125 MEQ IV (07:49)
[2023-01-26] MEDS: Carvedilol 3.125 MG TAB 6.25 MG PO (08:05)
[2023-01-26] MEDS: Levothyroxine 200 MCG TAB PO (08:05)
[2023-01-26] MEDS: Venlafaxine 150 MG CAPCR PO (08:05)
[2023-01-26] MEDS: Empaglifozin 25 MG TAB PO (08:06)
[2023-01-26] MEDS: Pantoprazole 40 MG TABCR PO (08:06)
[2023-01-26] MEDS: Valsartan 40 MG TAB PO ×2 (08:06→19:29)
[2023-01-26] MEDS: Tamsulosin 0.4 MG CAPCR PO (08:06)
[2023-01-26] MEDS: Pregabalin 50 MG CAP PO ×2 (08:06→19:29)
[2023-01-26] MEDS: Apixaban 5 MG TAB PO ×2 (08:06→19:29)
[2023-01-26] MEDS: Insulin Aspart 300 UNITS/3 ML PEN SC ×3 (08:06→16:55)
[2023-01-26 15:11] VITALS: BP 170/88; PULSE 61; RESP 18; TEMP 36.2; O2SAT 94
--- NOTE | 2023-01-26 15:33 | PGE_ITS ---
Date of Service Date of service: 01/26/23 Time of Service: 15:33 Assessment and Plan Assessment and plan (1) Abdominal pain: Status: Acute Assessment and plan: Resolved SBO v PSBO, Surgery consult - gastrografen challenge yesterday - it did make it to the ostomy and his diet was advanced to solid which he was able to tolerate. no more nausea, no vomiting, ostomy output adequate, no obv blood (2) Asymptomatic bacteriuria: Status: Acute Assessment and plan: UA negative, UC growing Serratia Marcescens - discussed with Dr Albrets, no abx needed, not a UTI - no WBC and no leukocyte esterase (3) Cirrhosis: Assessment and plan: [id number]-Vuyi 8 class B cirrhosis, with a history of portal hypertension. Continue to monitor liver function. INR 1.1. (4) Chronic low back pain: Assessment and plan: Patient complain of chronic low back pain, states he is scheduled for surgical intervention in the next few months. Being in bed has caused him to have more pain. He stated he takes oxy at home and it helps him. Oxycodone 5 mg ordered (5) Low platelet count: Status: Chronic Assessment and plan: Plt - 77 this is chronic for the last several months; PCP follow up recommended will continue to monitor (6) ANETTE (obstructive sleep apnea): (7) Non-insulin dependent type 2 diabetes mellitus: Status: Chronic Assessment and plan: Holding metformin after CT scan. Continue weight based glargine and ISS. (8) CHF (congestive heart failure): Status: Chronic Assessment and plan: Preserved ejection fraction. no overt fluid overload. Will continue to monitor - discontinue IVF. (9) DVT prophylaxis: Assessment and plan: Continue chronic apixaban (10) Discharge planning issues: Assessment and plan: He could have gone home today, he is stable, however his is a patient here and his caregiver. He can not safely go home and will stay here another day. There is no local family. Care managers consulted regarding discharge Discussed with Dr Alberts Subjective Subjective Patient reports: no new complaints, pain is less, voiding w/o difficulty and bowel movement (ostomy output adequate - light brown, does not appear to have any blood) Exam Const General: cooperative, healthy appearing, comfortable and no acute distress Nutritional Appearance: overweight HENMT Head: normocephalic and atraumatic Resp Effort & Inspection: normal respiratory effort Auscultation: clear to auscultation bilaterally Cardio Rate: regular rate Rhythm: abnormal rhythm Heart Sounds: no murmurs GI Palpation: soft and nontender Other: ostomy bag with formed stool and a little air in it Objective Last Vital Signs Temp 36.2 C L 01/26/23 15:11 Pulse 61 01/26/23 15:11 Resp 18 01/26/23 15:11 BP 170/88 H 01/26/23 15:11 Pulse Ox 94 01/26/23 15:11 Laboratory Results - last 24 hr 01/26/23 01/26/23 06:09 06:09 WBC 3.51 L RBC 4.11 L Hgb 10.9 L Hct 34.4 L MCV 84 MCH 26.5 L MCHC 31.7 L RDW 15.1 H Plt Count 77 L MPV 11.6 H Immature Gran % 0.3 Neutrophils % 57.8 Lymphocytes % 23.1 Monocytes % 10.8 Eosinophils % 7.4 Basophils % 0.6 Nucleated RBC % 0.0 Absolute Neutrophils 2.03 Absolute Lymphocytes 0.81 L Absolute Monocytes 0.38 Absolute Eosinophils 0.26 Absolute Basophils 0.02 Sodium 147 H Potassium 3.5 Chloride 113 H Carbon Dioxide 24.3 Anion Gap 9.7 BUN 16 Creatinine 0.9 Est GFR (CKD-EPI 2020) 88.51 Glucose 134 H Calcium 8.1 L Magnesium 1.9 Time Spent with Patient Time Spent with Patient: 25-34 minutes Time was spent: preparing to see the patient(eg.review tests), ordering medications,tests, procedures, referring, communicating with other health nonfarm animal caretaker, indepentently interpreting results, counseling the patient and care coordination
[2023-01-26] MEDS: oxyCODONE 5 MG TAB PO ×2 (17:51→21:59)
[2023-01-26] MEDS: Acetaminophen 325 MG TAB PO ×2 (17:52→21:59)
--- NOTE | 2023-01-26 19:00 | RESPIRATORY ---
Pt's own [employer]Med [id number] Auto-set CPAP Min: 10 Max: 14 FiO2: 21% Nasal Pillows: Medium [facility]: [facility] Pt does not use H2O with machine.
[2023-01-26] MEDS: Carvedilol 6.25 MG TAB PO (19:29)
[2023-01-26] MEDS: Prazosin 2 MG CAP 10 MG PO (21:59)
[2023-01-26] MEDS: Insulin Glargine 300 UNITS/3 ML PEN 20 UNITS SC (21:59)
[2023-01-26 23:30] VITALS: BP 117/60; PULSE 53; RESP 18; TEMP 36.1; O2SAT 88
[2023-01-27] MEDS: Levothyroxine 200 MCG TAB PO (05:02)
[2023-01-27 06:13] LABS: Abs Immature Grans 0.01 10^3/uL (0.0-0.06); Absolute Basophil Count 0.03 10^3/uL (0.0-0.2); Absolute Eosinophil Count 0.33 10^3/uL (0.0-0.7); Absolute Lymphocyte Count 0.93 10^3/uL (1.2-3.4); Absolute Monocyte Count 0.52 10^3/uL (0.1-0.8); Basophils % 0.7; HCT 36.5 % (40.0-50.0); HGB 11.5 g/dL (13.5-17.5); Immature Grans % 0.2; Lymphocytes % 22.6; MCH 26.6 pg (27.0-33.0); MCHC 31.5 % (32.0-36.0); MCV 84 fL (80-95); MPV 11.1 fL (8.0-11.0); Monocytes % 12.6; Neutrophils % 55.9; RBC 4.33 10^6/uL (4.36-5.78); RDW 14.6 % (11.8-14.1); RDW-SD 44.9 fL; WBC 4.12 10^3/uL (4.4-10.8)
[2023-01-27 06:19] VITALS: BP 139/64; PULSE 50; RESP 18; TEMP 35.7; O2SAT 92
[2023-01-27 06:46] LABS: Platelet Count 90 10^3/uL (130-400)
[2023-01-27 06:47] LABS: Diff Comment Diff Reviewed; RBC Morphology Normal
[2023-01-27 07:21] LABS: BUN 12 mg/dL (7-18); Calcium 8.7 mg/dL (8.5-10.1); Chloride 107 mmol/L (98-107); Glucose 119 mg/dL (74-106); Magnesium 1.8 mg/dL (1.8-2.4); Potassium 3.8 mmol/L (3.5-5.1); Sodium 140 mmol/L (136-145)
[2023-01-27 08:00] VITALS: O2SAT 96
[2023-01-27] MEDS: Pantoprazole 40 MG TABCR PO (08:31)
[2023-01-27] MEDS: Venlafaxine 150 MG CAPCR PO (08:32)
[2023-01-27] MEDS: Docusate Sodium 100 MG/10 ML CUP 50 MG PO (08:32)
[2023-01-27] MEDS: Valsartan 40 MG TAB PO ×2 (08:32→19:30)
[2023-01-27] MEDS: Pregabalin 50 MG CAP PO ×2 (08:32→19:30)
[2023-01-27] MEDS: Apixaban 5 MG TAB PO ×2 (08:32→19:30)
[2023-01-27] MEDS: Tamsulosin 0.4 MG CAPCR PO (08:32)
[2023-01-27] MEDS: Carvedilol 6.25 MG TAB PO ×2 (08:32→19:30)
[2023-01-27] MEDS: Empaglifozin 25 MG TAB PO (08:32)
--- NOTE | 2023-01-27 10:59 | W.PM.PROGNOT ---
Date of Service Date of service: 01/27/23 Time of Service: 11:00 Assessment and Plan Assessment and plan (1) Abdominal pain: Status: Acute Assessment and plan: Resolved SBO v PSBO, Surgery consult - gastrografen challenge yesterday - it did make it to the ostomy and his diet was advanced to solid which he was able to tolerate. no more nausea, no vomiting, ostomy output adequate, no obv blood (2) Asymptomatic bacteriuria: Status: Acute Assessment and plan: UA negative, UC growing Serratia Marcescens - discussed with Dr Alberts, no abx needed, not a UTI - no WBC and no leukocyte esterase (3) Cirrhosis: Assessment and plan: [id number]-[id number] 8 class B cirrhosis, with a history of portal hypertension. Continue to monitor liver function. INR 1.1. (4) Chronic low back pain: Assessment and plan: Patient complain of chronic low back pain, states he is scheduled for surgical intervention in the next few months. Being in bed has caused him to have more pain. He stated he takes oxy at home and it helps him. Oxycodone 5 mg ordered (5) Low platelet count: Status: Chronic Assessment and plan: Plt - 77 this is chronic for the last several months; PCP follow up recommended will continue to monitor (6) ANETTE (obstructive sleep apnea): (7) Non-insulin dependent type 2 diabetes mellitus: Status: Chronic Assessment and plan: Holding metformin after CT scan. Continue weight based glargine and ISS. (8) CHF (congestive heart failure): Status: Chronic Assessment and plan: Preserved ejection fraction. no overt fluid overload. Will continue to monitor - discontinue IVF. (9) DVT prophylaxis: Assessment and plan: Continue chronic apixaban (10) Discharge planning issues: Assessment and plan: He could have gone home again today, he is stable, however his is a patient here and his caregiver. He can not safely go home and will stay here another day. There is no local family. Care managers consulted regarding discharge Discussed with Dr Alberts Subjective Subjective Patient reports: no new complaints and tolerating a regular diet Interval history since last seen: Anxious to go home, but is in hospital and he does not have a healthcare translator, he understands this Exam Const General: cooperative, healthy appearing, comfortable and no acute distress Nutritional Appearance: overweight HENMT Head: normocephalic and atraumatic Resp Effort & Inspection: normal respiratory effort Auscultation: clear to auscultation bilaterally Cardio Rate: regular rate Rhythm: abnormal rhythm Heart Sounds: no murmurs GI Palpation: soft and nontender Other: ostomy bag with formed stool and a little air in it Objective Last Vital Signs Temp 35.7 C L 01/27/23 06:19 Pulse 50 L 01/27/23 06:19 Resp 18 01/27/23 06:19 BP 139/64 01/27/23 06:19 Pulse Ox 92 01/27/23 06:19 Laboratory Results - last 24 hr 01/27/23 01/27/23 05:56 05:56 WBC 4.12 L RBC 4.33 L Hgb 11.5 L Hct 36.5 L MCV 84 MCH 26.6 L MCHC 31.5 L RDW 14.6 H Plt Count 90 L MPV 11.1 H Immature Gran % 0.2 Neutrophils % 55.9 Lymphocytes % 22.6 Monocytes % 12.6 Eosinophils % 8.0 Basophils % 0.7 Nucleated RBC % 0.0 Absolute Neutrophils 2.30 Absolute Lymphocytes 0.93 L Absolute Monocytes 0.52 Absolute Eosinophils 0.33 Absolute Basophils 0.03 RBC Morphology Normal Sodium 140 Potassium 3.8 Chloride 107 Carbon Dioxide 24.0 Anion Gap 9.0 BUN 12 Creatinine 1.0 Est GFR (CKD-EPI 2020) 78.00 Glucose 119 H Calcium 8.7 Magnesium 1.8 Time Spent with Patient Time Spent with Patient: <25 minutes Time was spent: preparing to see the patient(eg.review tests), ordering medications,tests, procedures, referring, communicating with other health post anesthesia care unit nurse, indepentently interpreting results, counseling the patient and care coordination
--- NOTE | 2023-01-27 11:59 | W.INDIABCONS ---
Date of service: 01/27/23 Time of Service: 12:00 Diabetes Inpatient Consult Reason for Visit: Dm2 DESCRIPTION/ASSESSMENT: Osmar was admitted with polynephritis with hx of DM2, CHF, obesity. Most recent A1C (01/25/23): 8.1% at target in view of co morbidities and age. Home DM meds: 1000 mg metformin BID, 25 mg jardiance daily. Following diabetic diet with excellent intake. Not considered at nutritional risk. Current Dm meds and diet controlling Dm2 adequately. No education needed at this time. PLAN: will monitor po intake, weight and labs Time Spent in Nutritional Counseling and Treatment: 0
[2023-01-27 15:47] VITALS: BP 164/75; PULSE 53; RESP 16; TEMP 36.5; O2SAT 96
--- NOTE | 2023-01-27 15:50 | CMPROGNOTE_ITS ---
- If Service Date Differs Date of service: 01/27/23 Time of Service: 15:50 Care Management Progress Note S/O: RICHARD met with Osmar at his 's bedside; he was sitting in a W/C visiting. He reported feeling confident in their ability to return home safely with resumption of home supports. RICHARD spoke with Evelyn: RNCM of [facility] [place] who reported INTELLIGENCE MANAGER Allison Crane, and PCP Maryann are on Osamr's team and well aware of the challenges within the home at this time. Osmar stat ed his son helps and does whatever is asked of him, except dishes. RICHARD continues to follow. A: 78 year old male admitted to [facility] 01/24/23 for pyelonephritis P: Merrill will likely be discharged home with a resumption of HH nursing when medically cleared by provider. He will follow up with his PCP and plan of care as directed. He will be transported home via [facility] private yard driver when ready. CM will continue to follow.
--- NOTE | 2023-01-27 15:50 | PDOC.CMPRO ---
- If Service Date Differs Date of service: 01/27/23 Time of Service: 15:50 Care Management Progress Note S/O: RICHARD met with Osmar at his 's bedside; he was sitting in a W/C visiting. He reported feeling confident in their ability to return home safely with resumption of home supports. RICHARD spoke with Evelyn: RNCM of [facility] [place] who reported RECREATION FACILITY ATTENDANT Allison Crane, and PCP Maryann are on Osmar's team and well aware of the challenges within the home at this time. Osmar stated his son helps and does whatever is asked of him, except dishes. CM continues to follow. A: 78 year old male admitted to [facility] 01/24/23 for pyelonephritis P: Merrill will likely be discharged home with a resumption of nursing when medically cleared by provider. He will follow up with his PCP and plan of care as directed. He will be transported home via [facility] private river driver when ready. CM will continue to follow.
[2023-01-27] MEDS: Insulin Aspart 300 UNITS/3 ML PEN SC (17:29)
[2023-01-27] MEDS: Prazosin 2 MG CAP 10 MG PO (21:05)
[2023-01-27] MEDS: Insulin Glargine 300 UNITS/3 ML PEN 20 UNITS SC (21:05)
[2023-01-27 23:27] VITALS: BP 150/71; PULSE 59; RESP 18; TEMP 36.4; O2SAT 92
[2023-01-28] MEDS: Levothyroxine 200 MCG TAB PO (05:23)
[2023-01-28 06:24] LABS: Abs Immature Grans 0.01 10^3/uL (0.0-0.06); Absolute Basophil Count 0.02 10^3/uL (0.0-0.2); Absolute Eosinophil Count 0.36 10^3/uL (0.0-0.7); Absolute Lymphocyte Count 0.84 10^3/uL (1.2-3.4); Absolute Monocyte Count 0.52 10^3/uL (0.1-0.8); Absolute Neutrophil Count 2.93 10^3/uL (1.2-6.7); Basophils % 0.4; Eosinophils % 7.7; HCT 34.1 % (40.0-50.0); HGB 10.9 g/dL (13.5-17.5); Immature Grans % 0.2; Lymphocytes % 17.9; MCH 26.8 pg (27.0-33.0); MCV 84 fL (80-95); MPV 11.1 fL (8.0-11.0); Monocytes % 11.1; Neutrophils % 62.7; RBC 4.07 10^6/uL (4.36-5.78); RDW 14.7 % (11.8-14.1); RDW-SD 44.4 fL; WBC 4.68 10^3/uL (4.4-10.8)
[2023-01-28 06:38] LABS: BUN 17 mg/dL (7-18); CREATININE 0.9 mg/dL (0.70-1.30); Calcium 8.4 mg/dL (8.5-10.1); Chloride 107 mmol/L (98-107); Estimated GFR 88.51 (mL/min/1.73m2); Glucose 135 mg/dL (74-106); Magnesium 2.1 mg/dL (1.8-2.4); Potassium 3.7 mmol/L (3.5-5.1); Sodium 138 mmol/L (136-145)
[2023-01-28 07:09] LABS: Diff Comment Diff Reviewed; Platelet Count 96 10^3/uL (130-400); RBC Morphology Normal
[2023-01-28] MEDS: Apixaban 5 MG TAB PO (08:01)
[2023-01-28] MEDS: Pregabalin 50 MG CAP PO (08:01)
[2023-01-28] MEDS: Valsartan 40 MG TAB PO (08:01)
[2023-01-28] MEDS: Venlafaxine 150 MG CAPCR PO (08:01)
[2023-01-28] MEDS: Empaglifozin 25 MG TAB PO (08:01)
[2023-01-28] MEDS: Pantoprazole 40 MG TABCR PO (08:01)
[2023-01-28] MEDS: Carvedilol 6.25 MG TAB PO (08:01)
[2023-01-28] MEDS: Tamsulosin 0.4 MG CAPCR PO (08:02)
[2023-01-28] MEDS: Docusate Sodium 100 MG/10 ML CUP 50 MG PO (08:02)
[2023-01-28 08:12] VITALS: BP 123/54; PULSE 60; RESP 20; TEMP 36.6; O2SAT 93
--- NOTE | 2023-01-28 08:50 | CMPROGNOTE_ITS ---
- If Service Date Differs Date of service: 01/28/23 Time of Service: 08:50 Care Management Progress Note S/O: RICHARD met with Osmar at his 's bedside; he was sitting in a W/C visiting. He reported feeling confident in their ability to return home safely with resumption of home supports. RICHARD spoke with Evelyn: RNCM of [facility] [place] who reported CLAIM PROFESSIONAL Allison Crane, and PCP Maryann are on Osmar's team and well aware of the challenges within the home at this time. Osmar state d his son helps and does whatever is asked of him, except dishes. CM continues to follow. A: 78 year old male admitted to [facility] 01/24/23 for pyelonephritis P: Merrill will likely be discharged home with a resumption of HH nursing when medically cleared by provider. He will follow up with his PCP and plan of care as directed. He will be transported home via [facility] private pile driver engineer when ready. CM will continue to follow.
--- NOTE | 2023-01-28 10:45 | DI.RAD_ITS ---
Exam(s) XR ABDOMEN FLAT UPRIGHT EXAM: 2D digital imaging was performed. CLINICAL HISTORY: sbo. COMPARISON: CR,XR XR CHEST 2V PA LATERAL from 01/01/[address] ABDOMEN PELVIS W from 01/24/2023 CR,XR XR ABDOMEN FLAT PLATE from 01/25/2023 TECHNIQUE: Supine and upright views of the abdomen were performed. FINDINGS: BOWEL GAS PATTERN: Nondistended.No free air. No residual contrast in the colon. CALCIFICATIONS: No urinary tract calcifications visible. OSSEOUS STRUCTURES: Degenerative changes in the spine and hips. Visualized portions of chest: Unremarkable. Tips noted. Multiple surgical clips in the pelvis. IMPRESSION: Improvement in small bowel dilatation. DATA REPOSITORY: RADIATION DOSE DELIVERED:
--- NOTE | 2023-01-28 11:16 | W.PM.PROGNOT ---
Date of Service Date of service: 01/28/23 Time of Service: 11:16 Assessment and Plan Assessment and plan (1) SBO (small bowel obstruction): Status: Acute Assessment and plan: +BM today (2) Asymptomatic bacteriuria: Status: Acute (3) Low platelet count: Status: Chronic (4) Abdominal pain: Status: Acute (5) Non-insulin dependent type 2 diabetes mellitus: Status: Chronic (6) Incontinence: Status: Acute (7) Hypertension: Status: Chronic (8) CHF (congestive heart failure): Status: Chronic (9) ANETTE (obstructive sleep apnea): (10) Portal hypertension: (11) Colon cancer: (12) Cirrhosis: Subjective Subjective Interval history since last seen: Pt is doing well. no headaches. No CP or SOB. no productive cough. no dysuria. no leg pain or swelling. Pt did have a BM today. Objective Last Vital Signs Temp 36.6 C 01/28/23 08:12 Pulse 60 01/28/23 08:12 Resp 20 01/28/23 08:12 BP 123/54 L 01/28/23 08:12 Pulse Ox 93 01/28/23 08:12 Laboratory Results - last 24 hr 01/28/23 01/28/23 05:40 05:40 WBC 4.68 RBC 4.07 L Hgb 10.9 L Hct 34.1 L MCV 84 MCH 26.8 L MCHC 32.0 RDW 14.7 H Plt Count 96 L MPV 11.1 H Immature Gran % 0.2 Neutrophils % 62.7 Lymphocytes % 17.9 Monocytes % 11.1 Eosinophils % 7.7 Basophils % 0.4 Nucleated RBC % 0.0 Absolute Neutrophils 2.93 Absolute Lymphocytes 0.84 L Absolute Monocytes 0.52 Absolute Eosinophils 0.36 Absolute Basophils 0.02 RBC Morphology Normal Sodium 138 Potassium 3.7 Chloride 107 Carbon Dioxide 24.0 Anion Gap 7.0 BUN 17 Creatinine 0.9 Est GFR (CKD-EPI 2020) 88.51 Glucose 135 H Calcium 8.4 L Magnesium 2.1
--- NOTE | 2023-01-28 12:38 | DSE_ITS ---
Date of service: 01/28/23 Time of Service: 12:41 DS: Diagnosis Discharge Diagnosis (1) SBO (small bowel obstruction): Status: Resolved Asessment and Plan: Gastrogafen challenge; cleared at first xray; has been stooling and eating ok since 01/25/2023. (2) Asymptomatic bacteriuria: Status: Resolved (3) Low platelet count: Status: Chronic Asessment and Plan: At baseline (4) Abdominal pain: Status: Resolved (5) Non-insulin dependent type 2 diabetes mellitus: Status: Chronic Asessment and Plan: Continue home meds (6) Incontinence: Status: Chronic Asessment and Plan: Good perineal hygiene (7) Hypertension: Status: Chronic Asessment and Plan: Stable continue home meds (8) CHF (congestive heart failure): Status: Chronic Asessment and Plan: Stable continue home meds (9) ANETTE (obstructive sleep apnea): (10) Portal hypertension: Asessment and Plan: Stable (11) Colon cancer: Asessment and Plan: Stable (12) Cirrhosis: Asessment and Plan: Stable Discharge Plan Disposition Patient Disposition: Home W/Home Health Services Condition: Fair Discharge Details Reason For Visit: Small Bowel Obstruction Admit Date/Time: 01/24/23 18:16 Admit Provider: Elia Arizmendi Attending Provider: Elia Arizmendi Primary Care Provider: Osmar Carver [facility] Hospital Course: This is a 78 yo male patient with past medical history of colon cancer with colostomy and recurrent small bowel obstructions in the past, as well as alcoholic cirrhosis with alcohol use disorder in remission, who presented to the [facility] ED on 01/24/2023 with 3-4 days of increasing abdominal pain.? Pain was severe, colicky with waves of worse pain every few minutes.? Pain was centered in a band across the mid abdomen just above the umbilicus and extended down to the left lower quadrant. ?He complained of nausea, unable to eat and reported that he vomited watery fluid.? He had not had output in his colostomy bag for 2- 3 days.? He noted a lot of sounds and some bloating in his abdomen.? He was diagnosed with PSBO and admitted to the medical floor.? He was seen by surgery and a gastrografen challenge was done.? The first xray showed the gastrografen had made it to the ostomy.? He had large output from the ostomy and felt better. ? He was able to tolerate fluids and his diet was advanced to a regular diet and he has been tolerating that without issues.? His ostomy continues to have average output.? He has no abdominal pain.? His vital signs are stable.? He is being discharged to home, stable.? Home Meds and New Rx's Prescriptions: New polyethylene glycol 3350 17 gram Powder In Packet 17 g PO DAILY Qty: 0 0RF Continued carvedilol 3.125 mg tablet 6.25 mg PO BID venlafaxine 150 mg Capsule,Extended Release 24hr 150 mg PO DAILY spironolactone 25 mg Tablet 25 mg PO DAILY prazosin 5 mg Capsule 10 mg PO QHS pantoprazole 40 mg Tablet,Delayed Release (Dr/Ec) 40 mg PO DAILY metformin 1,000 mg Tablet 1,000 mg PO BID levothyroxine 200 mcg Tablet 200 mcg PO DAILY furosemide [Lasix] 20 mg Tablet 20 mg PO DAILY valsartan 40 mg Tablet 40 mg PO BID pregabalin 50 mg Capsule 50 mg PO BID acetaminophen [Tylenol] 325 mg Capsule 650 mg PO Q6H MDD 3000 PRN Eliquis 5 mg Tablet 5 mg PO BID Jardiance 25 mg Tablet 25 mg PO DAILY Colace Clear 50 mg capsule 50 mg PO DAILY 10 Days Qty: 10 0RF tamsulosin 0.4 mg Capsule 0.4 mg PO DAILY Discharge Instructions Instructions: Bowel Obstruction (DC) Stand Alone Forms: Nursing Discharge Form Referrals: Osmar Carver [Primary Care Provider] - (A Nurse from the [facility] will call you with an Appointment ) Activity:: Activity as Tolerated Equipment/Supplies:: No Equipment Needed Diet:: Low Sodium Discharge Orders Discharge Orders: Discharge Order (Routine); Ordered 01/28/23 Ordered By: Sydni Mckeon Discharge Data Discharge Date/Time-TO BE ENTERED AT DEPARTURE: 01/28/23 13:57 DS: Summary Time Spent with Patient providing and/or coordinating discharge services: Greater than 30 minutes Status at Discharge Functional status at discharge: uses cane/walker Overall status at discharge: patient is back to baseline Mental Status: mental status grossly normal Speech and Movement: speech and movement normal Mood: congruent mood Affect: normal affect Exam Const General: cooperative, healthy appearing, comfortable and no acute distress Nutritional Appearance: overweight HENMT Head: normocephalic and atraumatic Resp Effort & Inspection: normal respiratory effort Auscultation: clear to auscultation bilaterally Cardio Rate: regular rate Rhythm: abnormal rhythm Heart Sounds: no murmurs GI Palpation: soft and nontender Other: ostomy bag with formed stool and a little air in it Psych Mental Status: mental status grossly normal Speech and Movement: speech and movement normal Mood: congruent mood Affect: normal affect DS: Data Vitals/I&O Vitals and I&O: Vital Signs Temperature 36.6 C 01/28/23 08:12 Temperature Source Tympanic 01/28/23 08:12 Pulse 60 01/28/23 08:12 Pulse Rhythm Regular 01/28/23 08:01 Respiratory Rate 20 01/28/23 08:12 Respiratory Effort Normal, Non-Labored 01/28/23 08:01 Respiratory Depth Normal 01/28/23 08:01 Respiratory Pattern Normal 01/28/23 08:01 Blood Pressure 123/54 L 01/28/23 08:12 Blood Pressure Position Sitting 01/24/23 14:42 Pulse Oximetry 93 01/28/23 08:12 Oxygen Delivery Method Cpap 01/28/23 08:12 Oxygen Flow Rate 0 01/27/23 23:27 Fraction of Inspired Oxygen (FIO2) 21 01/26/23 08:25 Pain Level 0 01/28/23 08:12 Intake & Output 01/27/23 01/28/23 01/28/23 23:59 11:59 23:59 Intake Total 420 / 430 Output Total 2550 / 3200 1450 / 1450 Balance -2130 / -2770 -1450 / -1450 Intake: Oral 420 / 420 Output: Urine 2300 / 2950 950 / 950 Stool 250 / 250 500 / 500 Other: Urine Color Yellow Yellow Urine Appearance Clear Clear Urine Odor None Normal Stool Size Moderate Stool Characteristics Soft Soft Voiding Methods Urinal Urinal Data Completed and Pending Labs on day of discharge: Labs from last 24 hours 01/28/23 01/28/23 05:40 05:40 WBC 4.68 RBC 4.07 L Hgb 10.9 L Hct 34.1 L MCV 84 MCH 26.8 L MCHC 32.0 RDW 14.7 H Plt Count 96 L MPV 11.1 H Immature Gran % 0.2 Neutrophils % 62.7 Lymphocytes % 17.9 Monocytes % 11.1 Eosinophils % 7.7 Basophils % 0.4 Nucleated RBC % 0.0 Absolute Neutrophils 2.93 Absolute Lymphocytes 0.84 L Absolute Monocytes 0.52 Absolute Eosinophils 0.36 Absolute Basophils 0.02 RBC Morphology Normal Sodium 138 Potassium 3.7 Chloride 107 Carbon Dioxide 24.0 Anion Gap 7.0 BUN 17 Creatinine 0.9 Est GFR (CKD-EPI 2020) 88.51 Glucose 135 H Calcium 8.4 L Magnesium 2.1 PFSH All Active Problems (Updated 01/28/23 @ 12:43 by Sydni Mckeon NP) Low platelet count (Chronic) Confusion (Acute) Depression (Chronic) Non-insulin dependent type 2 diabetes mellitus (Chronic) Incontinence (Chronic) Hypertension (Chronic) Scleral icterus (Acute) CHF (congestive heart failure) (Chronic) Medical History (Updated 01/28/23 @ 12:43 by Sydni Mckeon NP) Chronic anticoagulation Chronic low back pain Cirrhosis TIPs placed (?when, [facility] [facility] Colon cancer COVID Endocarditis September 2022, Dx [facility] as per pt History of colon cancer ANETTE (obstructive sleep apnea) Palliative care encounter Followed by [facility] Portal hypertension Recurrent intestinal obstruction Surgical History Colostomy in place H/O left hemicolectomy S/P TIPS (transjugular intrahepatic portosystemic shunt) Social History Smoking/Tobacco Use Status: Former Tobacco Use Smoking risk assessment performed?: Yes Alcohol Intake: former Drug use: Never Substance use type: does not use Do you feel safe at home: Yes Do you feel safe in your relationship?: Yes Additional Social history: Lives with , son, and sick [id number] in [place], moved up from [place] in 2019. [place] . Time Spent with Patient Time Spent with Patient: 45-69 minutes Time was spent: preparing to see the patient(eg.review tests), ordering medications,tests, procedures, referring, communicating with other health life care planner, indepentently interpreting results, counseling the patient and care coordination
--- NOTE | 2023-01-28 16:15 | PDOC.CMDIS ---
- If Service Date Differs Date of service: 01/28/23 Time of Service: 16:15 LACE Index Scoring Tool - Questions: Length of Stay (in days): 4 - 6 Acuity (Admit via E.D.?): Yes Comorbidities: Chronic Pulmonary Disease, Mild Liver/Renal Disease, Any Tumor E.D. Visits: 6 - Answers: Total Score: 16 Risk of Readmission: High Risk Care Management Discharge Reason for Hospitalization: Pyelnephritis. Discharge Plan: Merrill will discharge home when medically cleared by provider. He will follow up with his PCP and plan of care as directed. He will be transported home via [facility] private ups driver when ready. Patient/Family Education Needs: Review discharge instructions, discuss Ask Me Three. Services Needed at Discharge: Home Health Care Services (Home Based PCP through [facility]: RN, CLIENT SERVICE AND CONSULTING MANAGER, PCP ), Transportation ([facility])
== END 2023-01-28 13:57 | disposition home health service (06) | DRG 389 ==
LOC: ER 18:45 → MS 19:27
PROVIDERS: Internal Medicine; Nurse Practitioner Family; Admitting Provider Family Medicine; Emergency Provider Physician Assistant; PCP Student in an Organized Health Care Education/Training Program; Visit Provider Family Medicine
DX: K56.609 Unspecified intestinal obstruction, unspecified as to partial versus complete obstruction (principal); I50.32 Chronic diastolic (congestive) heart failure; K76.6 Portal hypertension; E11.9 Type 2 diabetes mellitus without complications; G47.33 Obstructive sleep apnea (adult) (pediatric); Z79.01 Long term (current) use of anticoagulants; Z93.3 Colostomy status; Z85.038 Personal history of other malignant neoplasm of large intestine; K70.30 Alcoholic cirrhosis of liver without ascites; F10.11 Alcohol abuse, in remission; M54.50 Low back pain, unspecified; G89.29 Other chronic pain; R32 Unspecified urinary incontinence; F32.A Depression, unspecified; I10 Essential (primary) hypertension; Z90.49 Acquired absence of other specified parts of digestive tract; I11.0 Hypertensive heart disease with heart failure; D69.6 Thrombocytopenia, unspecified
CPT/HCPCS: 36415; 80048; 80053; 83690; 87077; 87635; 96361; 96365; 96375; 99285; 74018; 74019; 74177; 81003; 81015; 83036; 83605; 83735; 85025; 85610; 87086; 87186; 99232; 99239; J1170; J2405; J3010

== ENCOUNTER 2023-02-09 07:30 | Inpatient (IN) | payer OTHER, SELFPAY ==
[2023-02-09] VITALS (87 sets, daily range): BP systolic 106–192; BP diastolic 51–79; PULSE 55–76; RESP 12–31; TEMP 36.2–37.1; O2SAT 92–98
--- NOTE | 2023-02-09 07:15 | RT.EKG_ITS ---
APPROVED REPORT Exam: Resting ECG Reason for Exam: SOB Patient Location: E HR:59 bpm ECG Measurements Heart Rate 59 AXIS AZ 192 P -25 QRSd 115 QRS 43 QT 457 T 126 QTc 455 Conclusion Sinus bradycardia...rate< 60 Nonspecific intraventricular conduction delay...QRSd >115mS, not LBBB/RBBB Anterior infarct, old...Q >40mS, abnormal ST-T, V2-V5 Abnormal T, consider ischemia, lateral leads...T <-0.20mV, I aVL V5 V6. Sinus. Normal axis. Intraventricular delay. T wave inversion I and aVL. No significant change from pr evious. No STEMI. I have reviewed and interpreted ECG and agree with software generated interpretation.
--- NOTE | 2023-02-09 07:30 | DI.RAD_ITS ---
Exam(s) XR CHEST 2V PA LATERAL EXAM: XR CHEST 2V PA LATERAL CLINICAL HISTORY: sob, hypoxia, r/o acute disease. TECHNIQUE: 2D digital imaging was performed. COMPARISON: CR,XR XR CHEST 2V PA LATERAL from 01/01/2023 FINDINGS: 2 views: Mild cardiomegaly. Mediastinum not widened. Pulmonary venous hypertension pattern is unchanged. However, there are small bilateral pleural effus ions now evident on the lateral view. No air bronchograms. IMPRESSION: Mild cardiomegaly. Pulmonary vascular congestion/CHF and small bilateral pleural effusions evident. DATA REPOSITORY: RADIATION DOSE DELIVERED:
[2023-02-09 07:53] LABS: Abs Immature Grans 0.02 10^3/uL (0.0-0.06); Absolute Basophil Count 0.04 10^3/uL (0.0-0.2); Absolute Eosinophil Count 0.25 10^3/uL (0.0-0.7); Absolute Lymphocyte Count 0.76 10^3/uL (1.2-3.4); Absolute Monocyte Count 0.74 10^3/uL (0.1-0.8); Absolute Neutrophil Count 6.18 10^3/uL (1.2-6.7); Basophils % 0.5; Eosinophils % 3.1; HGB 11.2 g/dL (13.5-17.5); Immature Grans % 0.3; Lymphocytes % 9.5; MCH 26.1 pg (27.0-33.0); MCV 82 fL (80-95); Monocytes % 9.3; Neutrophils % 77.3; Platelet Count 132 10^3/uL (130-400); RBC 4.29 10^6/uL (4.36-5.78); RDW 15.4 % (11.8-14.1); RDW-SD 45.4 fL; WBC 7.99 10^3/uL (4.4-10.8)
--- NOTE | 2023-02-09 08:07 | W.ED.GENAD ---
Discharge Plan Disposition Patient Disposition: Admit to [facility] Condition: Stable Discharge Details Chief Complaint: RespSymp Clinical Impression: CHF exacerbation Primary Care Provider: Osmar Carver ED Provider: Kevin Morrissey [place] Meds and New Rx's Prescriptions: No Action carvedilol 3.125 mg tablet 6.25 mg PO BID venlafaxine 150 mg Capsule,Extended Release 24hr 150 mg PO DAILY spironolactone 25 mg Tablet 25 mg PO DAILY prazosin 5 mg Capsule 10 mg PO QHS pantoprazole 40 mg Tablet,Delayed Release (Dr/Ec) 40 mg PO DAILY metformin 1,000 mg Tablet 1,000 mg PO BID levothyroxine 200 mcg Tablet 200 mcg PO DAILY furosemide [Lasix] 20 mg Tablet 20 mg PO DAILY valsartan 40 mg Tablet 40 mg PO BID pregabalin 50 mg Capsule 50 mg PO BID acetaminophen [Tylenol] 325 mg Capsule 650 mg PO Q6H MDD 3000 PRN Eliquis 5 mg Tablet 5 mg PO BID Jardiance 25 mg Tablet 25 mg PO DAILY tamsulosin 0.4 mg Capsule 0.4 mg PO DAILY polyethylene glycol 3350 17 gram Powder In Packet 17 g PO DAILY Qty: 0 0RF Medical Decision Making 78 yo male with hx of htn, chf, dm, recent admission for abdominal pain comes in with 3 days of worsening shortness of breath with exertion. He states intermittent chest pressure with exertion as well, no pain at rest. HE called ems today and was noted to have a room air saturation of 87%, was placed on 2L [place] and brought here. He denies any recent fevers, no cough. He is speaking clearly in 3-4 word sentences on exam. Denies any current chest pain or pressure. He has diminished breath sounds at the bases bilaterally, soft nontender abdomen, no calf tenderness, pitting edema up to the mid tibia bilaterally. He had an echo in November that had an EF of 50-55%, on my pocus today his EF appears less then 50%, no pericardial effusion, mild b lines bilaterally. Exam and history is consistent with likely chf exacerbation. Will treat with a dose of lasix, obtain ekg/troponin, cbc, probnp, cmp, and cxr and reassess. xray shows mild chf, labs without significant change from baseline, stable on 3L [place], no respiratory distress at rest. He is making urine in the collier after he was given 40mg iv lasix. Will discuss with hospitalist about admission Differential Diagnosis Differential Diagnosis: chf, pneumonia, anemia Medical Records Medical records reviewed: Yes I reviewed the patient's medical records. Imaging Data Radiologic Study: Attestation: I personally reviewed and interpreted this imaging study as follows: Imaging: X-Ray Radiologist's impression: PROCEDURE INFORMATION: Exam: XR Chest Exam date and time: 02/09/2023 8:20 AM Age: 78 years old Clinical indication: Pain; Other: SOB, hypoxia, R/O acute disease TECHNIQUE: Imaging protocol: Radiologic exam of the chest. Views: 2 views. COMPARISON: CR XR CHEST 2V PA LATERAL 01/01/2023 6:30 PM FINDINGS: Lungs: Mild interstitial thickening. No consolidation. Pleural spaces: Question minimal effusions. No pneumothorax. Heart/Mediastinum: Grossly stable. Bones/joints: Unremarkable. IMPRESSION: Mild interstitial edema versus pneumonitis and question minimal pleural effusions Lab Data Lab results reviewed: Yes I reviewed the patient's lab results. ECG Data Attestation: I personally reviewed and interpreted this ECG (s) as follows: Prior ECG tracings: available for review Interpretation: sinus vicki, rate of 59, no stemi, pr 192 HPI General Mode of arrival: EMS. Date/Time Provider Initiated Documentation: 02/09/23 07:41. Limitations to Documentation: no limitations. Information obtained by: patient. History of Present Illness 78 year old M presents to the emergency department with the chief complaint of shortness of breath, described as moderate, Patient started experiencing this day(s) (3) and it has been constant. Rest improves symptom(s), Movement worsens symptoms . Patient notes denies cough, fever/chills and nausea/vomiting. Related Data Home Medications Medication Instructions Recorded Confirmed acetaminophen 325 mg capsule 650 mg PO Q6H PRN 11/08/22 02/09/23 (Tylenol) apixaban 5 mg tablet (Eliquis) 5 mg PO BID 11/08/22 02/09/23 empagliflozin 25 mg tablet 25 mg PO DAILY 11/08/22 02/09/23 (Jardiance) furosemide 20 mg tablet (Lasix) 20 mg PO DAILY 11/08/22 02/09/23 levothyroxine 200 mcg tablet 200 mcg PO DAILY 11/08/22 02/09/23 metformin 1,000 mg tablet 1,000 mg PO BID 11/08/22 02/09/23 pantoprazole 40 mg tablet,delayed 40 mg PO DAILY 11/08/22 02/09/23 release prazosin 5 mg capsule 10 mg PO QHS 11/08/22 02/09/23 pregabalin 50 mg capsule 50 mg PO BID 11/08/22 02/09/23 spironolactone 25 mg tablet 25 mg PO DAILY 11/08/22 02/09/23 valsartan 40 mg tablet 40 mg PO BID 11/08/22 02/09/23 venlafaxine 150 mg 150 mg PO DAILY 11/08/22 02/09/23 capsule,extended release 24 hr tamsulosin 0.4 mg capsule 0.4 mg PO DAILY 11/29/22 02/09/23 carvedilol 3.125 mg tablet 6.25 mg PO BID 12/27/22 02/09/23 polyethylene glycol 3350 17 gram 17 g PO DAILY #0 ea 01/28/23 02/09/23 oral powder packet Previous Rx's Medication Instructions Recorded polyethylene glycol 3350 17 gram 17 g PO DAILY #0 ea 01/28/23 oral powder packet Allergies Allergy/AdvReac Type Severity Reaction Status Date / Time Penicillins Allergy Mild Itching Unverified 02/09/23 07:35 morphine AdvReac Severe vomiting Unverified 02/09/23 07:35 mussels AdvReac Severe vomiting Unverified 02/09/23 07:35 General Stated Complaint: RespSymp ANNA: 3 Review of Systems All systems reviewed & are unremarkable except as noted in HPI and below Constitutional Constitutional: Denies chills, Denies fever(s) and Denies weakness Cardiovascular Cardiovascular: Reports chest pain, Denies chest pain at rest and Reports dyspnea Respiratory Respiratory: Denies cough and Reports dyspnea Gastrointestinal Gastrointestinal: Denies abdominal pain, Denies nausea and Denies vomiting Genitourinary Genitourinary: Denies dysuria Musculoskeletal Musculoskeletal: Denies joint swelling Integumentary/Breasts Skin/Breast: Denies rash Neurologic Neurologic: Denies weakness PFSH All Active Problems (Updated 02/09/23 @ 09:27 by Kevin Morrissey MD) CHF exacerbation (Acute) Confusion (Acute) Depression (Chronic) Non-insulin dependent type 2 diabetes mellitus (Chronic) Incontinence (Chronic) Hypertension (Chronic) Scleral icterus (Acute) CHF (congestive heart failure) (Chronic) Medical History (Updated 02/09/23 @ 09:27 by Kevin Morrissey MD) Chronic anticoagulation Chronic low back pain Cirrhosis TIPs placed (?when, [facility]? [facility]?) Colon cancer COVID Endocarditis September 2022, Dx [facility] as per pt History of colon cancer ANETTE (obstructive sleep apnea) Palliative care encounter Followed by [facility] Portal hypertension Recurrent intestinal obstruction Surgical History Colostomy in place H/O left hemicolectomy S/P TIPS (transjugular intrahepatic portosystemic shunt) Social History Smoking/Tobacco Use Status: Former Tobacco Use Smoking risk assessment performed?: Yes Alcohol Intake: former Drug use: Never Substance use type: does not use Do you feel safe at home: Yes Do you feel safe in your relationship?: Yes Additional Social history: Lives with , son, and sick [id number] in [place], moved up from [place] in 2019. [place]. Exam Const General: no acute distress Orientation: alert HENMT Head: normal to inspection Ears: external ears normal General nose exam: external nose normal Mouth: moist mucous membranes Eyes General: appearance normal, both eyes and all related structures Neck Neck: normal visual inspection Resp Effort & Inspection: no grunting and not labored Auscultation: diminished lung sounds and no wheezes Cardio Jugular venous pressure: no JVD Rate: regular rate Heart Sounds: no murmurs GI Palpation: soft and nontender Skin General skin exam: no rashes or lesions noted Neuro General: patient alert and patient oriented x3 Extrem General: normal to inspection Psych Mental Status: mental status grossly normal Course Vital Signs Vital signs: Vital Signs Temperature 37.1 C 02/09/23 07:24 Pulse 61 02/09/23 07:24 Respiratory Rate 20 02/09/23 07:24 Blood Pressure 176/61 H 02/09/23 07:24 Pulse Oximetry 98 02/09/23 07:24 Temperature 37.1 C 02/09/23 07:24 Temperature Source Oral 02/09/23 07:24 Pulse 59 L 02/09/23 08:01 Pulse 61 02/09/23 08:01 Respiratory Rate 19 02/09/23 08:01 Respiratory Effort Normal, Non-Labored 02/09/23 07:40 Respiratory Depth Normal 02/09/23 07:40 Blood Pressure 157/66 H 02/09/23 08:01 Blood Pressure Mean 88 02/09/23 08:01 Pulse Oximetry 94 02/09/23 08:01 Oxygen Delivery Method Nasal Cannula 02/09/23 07:34 Oxygen Flow Rate 2 02/09/23 07:34 Lab/Test Results Lab/Test Results: Laboratory Tests Range/Units 02/09/23 02/09/23 07:40 07:40 WBC (4.4-10.8) 10^3/uL 7.99 RBC (4.36-5.78) 10^6/uL 4.29 L Hgb (13.5-17.5) g/dL 11.2 L Hct (40.0-50.0) % 35.0 L MCV (80-95) fL 82 MCH (27.0-33.0) pg 26.1 L MCHC (32.0-36.0) % 32.0 RDW (11.8-14.1) % 15.4 H Plt Count (130-400) 10^3/uL 132 MPV (8.0-11.0) fL 11.0 Immature Gran % 0.3 Neutrophils % 77.3 Lymphocytes % 9.5 Monocytes % 9.3 Eosinophils % 3.1 Basophils % 0.5 Nucleated RBC % (0.0-0.3) % 0.0 Absolute Neutrophils (1.2-6.7) 10^3/uL 6.18 Absolute Lymphocytes (1.2-3.4) 10^3/uL 0.76 L Absolute Monocytes (0.1-0.8) 10^3/uL 0.74 Absolute Eosinophils (0.0-0.7) 10^3/uL 0.25 Absolute Basophils (0.0-0.2) 10^3/uL 0.04 NT-Pro-B Natriuret Pep Cancelled POCUS Exam (ED) Limited Cardiac Exam DATE OF EXAM: 02/09/23 TIME OF EXAM: 08:24 PROVIDER THAT PERFORMED THE STUDY: Kevin Morrissey IS THIS A REPEAT EXAM DURING THIS ENCOUNTER: no REASON FOR EXAM: Dyspnea VISUALIZED STRUCTURES: Left ventricle and Right ventricle VIEW OBTAINED: Parasternal long-axis PERTINENT FINDINGS/IMPRESSION: LV dysfunction; No pericardial effusion Exam complete Limited Thoracic Lung Exam DATE OF EXAM: 02/09/23 TIME OF EXAM: 08:24 PROVIDER THAT PERFORMED THE STUDY: Kevin Morrissey IS THIS A REPEAT EXAM DURING THIS ENCOUNTER: No REASON FOR EXAM: Shortness ofBreath VISUALIZED STRUCTURES: right anterior and left anterior PERTINENT FINDINGS/IMPRESSION: B-lines/left side and B-lines/right side Exam complete
[2023-02-09 08:08] LABS: BE -2 mmol/L (-2-3); HCO3 22 mmol/L (22-26); pCO2 32 mmHg (35-45); pH 7.45 (7.35-7.45); pO2 76 mmHg (80-105); sO2 96 % (95-98); tCO2 20 mmol/L (23-27)
[2023-02-09 08:09] LABS: FIO2L 2 L; Site Right Radial
[2023-02-09 08:23] LABS: ALT 18 U/L (16-63); AST 34 U/L (15-37); Albumin 2.8 g/dL (3.4-5.0); Alkaline Phosphatase 136 U/L (46-116); Anion Gap 11.2 mmol/L (3-11); BUN 14 mg/dL (7-18); Bilirubin, Total 2.4 mg/dL (0.2-1.0); CO2 23.8 mmol/L (21.0-32.0); CREATININE 0.8 mg/dL (0.70-1.30); Calcium 9.1 mg/dL (8.5-10.1); Chloride 110 mmol/L (98-107); Estimated GFR 91.72 (mL/min/1.73m2); Glucose 142 mg/dL (74-106); Magnesium 1.6 mg/dL (1.8-2.4); NT-proBNP 1385 pg/mL (<300); Potassium 3.8 mmol/L (3.5-5.1); Sodium 145 mmol/L (136-145); Total Protein 6.6 g/dL (6.4-8.2); Troponin I 60 ng/L (<or=60)
--- NOTE | 2023-02-09 08:30 | DI.VRAD_ITS ---
PROCEDURE INFORMATION: Exam: XR Chest Exam date and time: 02/09/2023 8:20 AM Age: 78 years old Clinical indication: Pain; Other: SOB, hypoxia, R/O acute disease TECHNIQUE: Imaging protocol: Radiologic exam of the chest. Views: 2 views. COMPARISON: CR XR CHEST 2V PA LATERAL 01/01/2023 6:30 PM FINDINGS: Lungs: Mild interstitial thickening. No consolidation. Pleural spaces: Question minimal effusions. No pneumothorax. Heart/Mediastinum: Grossly stable. Bones/joints: Unremarkable. IMPRESSION: Mild interstitial edema versus pneumonitis and question minimal pleural effusions Dictated and Authenticated by: Remi Rouse MD. Ordering:CLEM Castro MD
[2023-02-09] MEDS: Furosemide 40 MG/4 ML VIAL IVP (08:34)
[2023-02-09] MEDS: Lidocaine 2% Jelly 6 ML SYR (08:45)
[2023-02-09 09:01] LABS: Bilirubin Negative (Negative); Blood Trace-intact (Negative); Clarity Clear (Clear); Glucose 500 mg/dL (Negative); Ketones Negative (Negative); Leukocyte Esterase Negative (Negative); Nitrite Negative (Negative); Urobilinogen 0.2 mg/dL (Up to 0.2)
[2023-02-09 09:14] LABS: Other Cells Mod Transitional (Negative)
[2023-02-09 09:15] LABS: Bacteria Negative HPF (Negative); C & S Indicated? No; Casts Negative LPF (Negative); Crystals Negative HPF (Negative); Epithelial Cells Few HPF (Negative); Mucus Negative (Negative)
[2023-02-09 09:18] LABS: COVID-19 PCR Negative (Negative); Influenza A PCR Negative (Negative); Influenza B PCR Negative (Negative); RSV PCR Negative (Negative)
[2023-02-09 09:20] LABS: Source Nasopharynx
[2023-02-09 10:14] LABS: Troponin I 65 ng/L (<or=60)
--- NOTE | 2023-02-09 10:30 | W.PM.HP.N ---
Date of service: 02/09/23 Time of Service: 10:30 Assessment and Plan Assessment and plan (1) CHF (congestive heart failure): Status: Chronic Assessment and plan: He does wear CPAP at night. Lasix 80 mg IV BID; on carvedilol Continue Spironolactone Telemetry - Sinus vicki 60s with multifocal PVCs I&O Fluid restriction he has mild LV dysfunction; no RV dysfunction; EF ~ 50% per POCUS in ED Last Echo 12/02/2022 - EF 50-55% CXR Mild interstitial edema versus pneumonitis and question minimal pleural effusions Mild cardiomegaly.? Pulmonary vascular congestion/CHF Output today 5450 ml intake 740 ml balance neg 4710 ml SPO2 is 96% on room air, nursing weaning O2 (2) Chest pain: Status: Acute Assessment and plan: C/O substernal, non radiating chest pain at rest; no SOB, no diaphoresis, reports it as feeling like pressure. Ntg 0.4 mg SL given x 1 with 100% relief - Ntg paste 1 applied to chest wall Telemetry - NSR but lots of ectopy, multifocal PVCs. EKG x 2 done - reviewed with Dr Burton; also did a right sided EKG; repeat troponin @ 1800h EKG read - Sinus rhythm, normal P axis rate 50-99, Atrial PACs; short R-R interval, Prolonged WA interval, Nonspecific intraventicular conduction delay, Abnormal lateral Q waves, probable anteroseptal infarct Troponin: 60 @ 07:40; 65 @ 09:47; 51 @ 14:56; fourth is pending and after a complaint of chest pain that lasted 10 min and releaved by SL ntg (3) Hypertension: Status: Chronic Assessment and plan: Valsartan, Carvedilol, Jardiance Blood pressure remains high here; 170s/80s - ntg given for CP and paste applied, will treat CP and also lower BP; BP was high last admission as well. 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 Assessment and plan: chronic - on metformin and jardiance, cardiac protective Hold metformin and start SS insulin ordered while in hospital Glucose on arrival in ED 144 (5) Incontinence: Status: Chronic Assessment and plan: Urinary incontinence - indwelling urinary catheter in acute phase of illness for accurate I&O in setting of CHF Output 5450 (6) Fall: Status: Inactive Assessment and plan: States he is off balance and falls alot - will get PT consult (7) Depression: Status: Chronic Assessment and plan: Stable - Continue Venlafaxine (8) Colon cancer: Assessment and plan: Colon cancer he reports in his 40's - has colostomy - is independent in managing it; states only bloody when his stoma is irritated (9) DVT prophylaxis: Status: Deleted Assessment and plan: On Apixaban for AFib chronically (10) Discharge planning issues: Status: Deleted Assessment and plan: Patient has home health PT and OT currently - Home with He has all his care at the DC in [facility] Discussed with Dr Burton History of Present Illness History of Present Illness Chief Complaint: Trouble breathing Narrative: This is a 78 yo male patient with hx of htn, chf, dm, recent admission for abdominal pain came to the [facility] ED with the chief complaint of 3 days of worsening shortness of breath with exertion. He stated he also had intermittent chest pressure with exertion as well, no pain at rest. He called EMS and was noted to have a room air saturation of 87%, was placed on 2L NC. He denied any recent fevers, no cough. He did speak clearly in 3-4 word sentences in the ED. He denied any current chest pain or pressure. He had diminished breath sounds at the bases bilaterally, soft nontender abdomen, no calf tenderness, three plus pitting edema up to the mid tibia bilaterally. He had an echo in November that had an EF of 50-55%, on pocus done today in the ED, his EF appears less then 50%, He was given Furosemide, and EKG/troponin, CBC, probnp, CMP, and CXR were done.? Xray shows mild CHF, labs without significant change from baseline, stable on 3L NC, no respiratory distress at rest. He is making urine, collier placed in ED, he was given 40mg IV lasix. He was admitted to the medical floor, stable, ?for continued diuresis and monitoring. Review of Systems All systems reviewed & are unremarkable except as noted in HPI and below PFSH All Active Problems (Updated 02/09/23 @ 16:52 by Sydni Mckeon NP) ANETTE (obstructive sleep apnea) (Chronic) Chest pain (Acute) CHF exacerbation (Acute) Depression (Chronic) Non-insulin dependent type 2 diabetes mellitus (Chronic) Incontinence (Chronic) Hypertension (Chronic) CHF (congestive heart failure) (Chronic) Medical History (Updated 02/09/23 @ 16:52 by Sydni Mckeon NP) Chronic anticoagulation Chronic low back pain Cirrhosis TIPs placed (?when, [facility]? 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, Dx [facility] as per pt History of colon cancer Palliative care encounter Followed by [facility] Portal hypertension Recurrent intestinal obstruction Scleral icterus Surgical History Colostomy in place H/O left hemicolectomy S/P TIPS (transjugular intrahepatic portosystemic shunt) Social History Smoking/Tobacco Use Status: Former Tobacco Use Smoking risk assessment performed?: Yes Alcohol Intake: former Drug use: Never Substance use type: does not use Do you feel safe at home: Yes Do you feel safe in your relationship?: Yes Additional Social history: Lives with , son, and sick [id number] in [place], moved up from [place] in 2019. [place]. Meds Allergies and Home Medications Allergies Allergy/AdvReac Type Severity Reaction Status Date / Time Penicillins Allergy Mild Itching Unverified 02/09/23 07:35 morphine AdvReac Severe vomiting Unverified 02/09/23 07:35 mussels AdvReac Severe vomiting Unverified 02/09/23 07:35 Home Medications Medication Instructions Recorded Confirmed Type acetaminophen 325 mg capsule 650 mg PO Q6H PRN 11/08/22 02/09/23 History (Tylenol) apixaban 5 mg tablet (Eliquis) 5 mg PO BID 11/08/22 02/09/23 History empagliflozin 25 mg tablet 25 mg PO DAILY 11/08/22 02/09/23 History (Jardiance) furosemide 20 mg tablet (Lasix) 20 mg PO DAILY 11/08/22 02/09/23 History levothyroxine 200 mcg tablet 200 mcg PO DAILY 11/08/22 02/09/23 History metformin 1,000 mg tablet 1,000 mg PO BID 11/08/22 02/09/23 History pantoprazole 40 mg tablet,delayed 40 mg PO DAILY 11/08/22 02/09/23 History release prazosin 5 mg capsule 10 mg PO QHS 11/08/22 02/09/23 History pregabalin 50 mg capsule 50 mg PO BID 11/08/22 02/09/23 History spironolactone 25 mg tablet 25 mg PO DAILY 11/08/22 02/09/23 History valsartan 40 mg tablet 40 mg PO BID 11/08/22 02/09/23 History venlafaxine 150 mg 150 mg PO DAILY 11/08/22 02/09/23 History capsule,extended release 24 hr tamsulosin 0.4 mg capsule 0.4 mg PO DAILY 11/29/22 02/09/23 History carvedilol 3.125 mg tablet 6.25 mg PO BID 12/27/22 02/09/23 History polyethylene glycol 3350 17 gram 17 g PO DAILY #0 ea 01/28/23 02/09/23 Rx oral powder packet Exam Const General: no acute distress Orientation: alert HENPA Head: normal to inspection Ears: external ears normal General nose exam: external nose normal Mouth: moist mucous membranes Eyes General: appearance normal, both eyes and all related structures Neck Neck: normal visual inspection Resp Effort & Inspection: no grunting and not labored Auscultation: diminished lung sounds and no wheezes Cardio Jugular venous pressure: no JVD Rate: regular rate Heart Sounds: no murmurs GI Palpation: soft and nontender Skin General skin exam: no rashes or lesions noted Neuro General: patient alert and patient oriented x3 Extrem General: normal to inspection Psych Mental Status: mental status grossly normal Results Labs 02/09/23 07:40 02/09/23 07:40 Labs: Laboratory Results - last 24 hr 02/09/23 02/09/23 02/09/23 07:40 07:40 07:40 WBC 7.99 RBC 4.29 L Hgb 11.2 L Hct 35.0 L MCV 82 MCH 26.1 L MCHC 32.0 RDW 15.4 H Plt Count 132 MPV 11.0 Immature Gran % 0.3 Neutrophils % 77.3 Lymphocytes % 9.5 Monocytes % 9.3 Eosinophils % 3.1 Basophils % 0.5 Nucleated RBC % 0.0 Absolute Neutrophils 6.18 Absolute Lymphocytes 0.76 L Absolute Monocytes 0.74 Absolute Eosinophils 0.25 Absolute Basophils 0.04 ABG Sample Site ABG pH ABG pCO2 ABG pO2 ABG HCO3 ABG Total CO2 ABG O2 Saturation ABG Base Excess Oxygen Liter Flow Sodium 145 Potassium 3.8 Chloride 110 H Carbon Dioxide 23.8 Anion Gap 11.2 H BUN 14 Creatinine 0.8 Est GFR (CKD-EPI 2020) 91.72 Glucose 142 H Calcium 9.1 Magnesium 1.6 L Total Bilirubin 2.4 H AST 34 ALT 18 Alkaline Phosphatase 136 H Troponin I 60 NT-Pro-B Natriuret Pep 1385 H Cancelled Total Protein 6.6 Albumin 2.8 L Urine Color Urine Clarity Urine pH Ur Specific Esko Urine Protein Urine Ketones Urine Blood Urine Nitrite Urine Bilirubin Urine Urobilinogen Ur Leukocyte Esterase Urine RBC Urine WBC Ur Epithelial Cells Urine Crystals Urine Bacteria Urine Casts Urine Mucus Urine Other Ur Culture Indicated? Urine Glucose COVID-19 Source SARS-CoV-2 (PCR) Influenza Type A (PCR) Influenza Type B (PCR) RSV (PCR) 02/09/23 02/09/23 02/09/23 08:04 08:33 08:45 WBC RBC Hgb Hct MCV MCH MCHC RDW Plt Count MPV Immature Gran % Neutrophils % Lymphocytes % Monocytes % Eosinophils % Basophils % Nucleated RBC % Absolute Neutrophils Absolute Lymphocytes Absolute Monocytes Absolute Eosinophils Absolute Basophils ABG Sample Site Right Radial ABG pH 7.45 ABG pCO2 32 L ABG pO2 76 L ABG HCO3 22 ABG Total CO2 20 L ABG O2 Saturation 96 ABG Base Excess -2 Oxygen Liter Flow 2 Sodium Potassium Chloride Carbon Dioxide Anion Gap BUN Creatinine Est GFR (CKD-EPI 2020) Glucose Calcium Magnesium Total Bilirubin AST ALT Alkaline Phosphatase Troponin I NT-Pro-B Natriuret Pep Total Protein Albumin Urine Color Yellow Urine Clarity Clear Urine pH 7.0 Ur Specific Esko 1.020 Urine Protein 100 H Urine Ketones Negative Urine Blood Trace-intact H Urine Nitrite Negative Urine Bilirubin Negative Urine Urobilinogen 0.2 Ur Leukocyte Esterase Negative Urine RBC 10-20 H Urine WBC 3-5 Ur Epithelial Cells Few Urine Crystals Negative Urine Bacteria Negative Urine Casts Negative Urine Mucus Negative Urine Other Mod Transitional Ur Culture Indicated? No Urine Glucose 500 H COVID-19 Source Nasopharynx SARS-CoV-2 (PCR) Negative Influenza Type A (PCR) Negative Influenza Type B (PCR) Negative RSV (PCR) Negative 02/09/23 09:47 WBC RBC Hgb Hct MCV MCH MCHC RDW Plt Count MPV Immature Gran % Neutrophils % Lymphocytes % Monocytes % Eosinophils % Basophils % Nucleated RBC % Absolute Neutrophils Absolute Lymphocytes Absolute Monocytes Absolute Eosinophils Absolute Basophils ABG Sample Site ABG pH ABG pCO2 ABG pO2 ABG HCO3 ABG Total CO2 ABG O2 Saturation ABG Base Excess Oxygen Liter Flow Sodium Potassium Chloride Carbon Dioxide Anion Gap BUN Creatinine Est GFR (CKD-EPI 2020) Glucose Calcium Magnesium Total Bilirubin AST ALT Alkaline Phosphatase Troponin I 65 H* NT-Pro-B Natriuret Pep Total Protein Albumin Urine Color Urine Clarity Urine pH Ur Specific Esko Urine Protein Urine Ketones Urine Blood Urine Nitrite Urine Bilirubin Urine Urobilinogen Ur Leukocyte Esterase Urine RBC Urine WBC Ur Epithelial Cells Urine Crystals Urine Bacteria Urine Casts Urine Mucus Urine Other Ur Culture Indicated? Urine Glucose COVID-19 Source SARS-CoV-2 (PCR) Influenza Type A (PCR) Influenza Type B (PCR) RSV (PCR) Last Vital Signs Temp 37.1 C 02/09/23 10:19 Pulse 61 02/09/23 10:19 Resp 20 02/09/23 10:19 BP 174/61 H 02/09/23 10:29 Pulse Ox 96 02/09/23 10:19 Time Spent Time spent with Patient: 55-74 minutes Time was spent: preparing to see the patient(eg.review tests), obtaining and/or reviewing separately otained hiistory, ordering medications,tests, procedures, referring, communicating with other health hospice care sales consultant, indepentently interpreting results, counseling the patient and care coordination
[2023-02-09] MEDS: Acetaminophen 325 MG TAB PO (15:07)
[2023-02-09] MEDS: Furosemide 40 MG/4 ML VIAL 80 MG IVP (15:07)
--- NOTE | 2023-02-09 15:15 | RT.EKG_ITS ---
APPROVED REPORT Exam: Resting ECG Reason for Exam: Chest pain Patient Location: I HR:60 bpm ECG Measurements Heart Rate 60 AXIS WV 230 P 60 QRSd 116 QRS 46 QT 475 T 62 QTc 475 Conclusion Sinus rhythm...normal P axis, V-rate 50- 99 Borderline prolonged WV interval...WV >212, V-rate 50- 90 Anterior infarct, old...Q >40mS, abnormal ST-T, V2-V5 Baseline wander in lead(s) V1
[2023-02-09 15:19] LABS: Troponin I 51 ng/L (<or=60)
[2023-02-09] MEDS: nitroGLYcerin 0.4 MG TAB SL ×2 (15:28→17:03)
--- NOTE | 2023-02-09 15:45 | RT.EKG_ITS ---
APPROVED REPORT Exam: Resting ECG Reason for Exam: Chest Pain Right sided Patient Location: I HR:59 bpm ECG Measurements Heart Rate 59 AXIS AR 241 P 69 QRSd 115 QRS 47 QT 452 T 66 QTc 448 Conclusion Sinus rhythm...normal P axis, V-rate 50- 99 Atrial premature complex...SV complex w/ short R-R interval Prolonged AR interval...AR >220, V-rate 50- 90 Nonspecific intraventricular conduction delay...QRSd >115mS, not LBBB/RBBB Abnormal lateral Q waves...Q >35mS, V5 V6 I aVL Probable anteroseptal infarct, recent...Q, ST>0.15mV, T neg, V1-V2
[2023-02-09] MEDS: nitroGLYcerin 2% 1 INCH/1 GM PKT TP ×2 (16:59→23:23)
[2023-02-09 18:18] LABS: Troponin I 51 ng/L (<or=60)
[2023-02-09 19:50] LABS: Lab Add On Test DONE
[2023-02-09 20:18] LABS: TSH 0.05 uIU/mL (0.36-3.74)
[2023-02-09] MEDS: Prazosin 5 MG CAP 10 MG PO (21:03)
[2023-02-09] MEDS: Pregabalin 50 MG CAP PO (21:03)
[2023-02-09] MEDS: Carvedilol 6.25 MG TAB PO (21:03)
[2023-02-09] MEDS: Apixaban 5 MG TAB PO (21:03)
[2023-02-09] MEDS: Valsartan 40 MG TAB PO (21:03)
[2023-02-09 22:10] LABS: Troponin I 50 ng/L (<or=60)
[2023-02-10] VITALS (7 sets, daily range): BP systolic 115–152; BP diastolic 49–61; PULSE 50–67; RESP 16–20; TEMP 36–37; O2SAT 91–97
[2023-02-10] MEDS: nitroGLYcerin 2% 1 INCH/1 GM PKT TP ×2 (04:56→12:47)
[2023-02-10 06:18] LABS: Abs Immature Grans 0.01 10^3/uL (0.0-0.06); Absolute Basophil Count 0.02 10^3/uL (0.0-0.2); Absolute Eosinophil Count 0.27 10^3/uL (0.0-0.7); Absolute Lymphocyte Count 0.92 10^3/uL (1.2-3.4); Absolute Monocyte Count 0.74 10^3/uL (0.1-0.8); Absolute Neutrophil Count 3.34 10^3/uL (1.2-6.7); Basophils % 0.4; Eosinophils % 5.1; HCT 33.9 % (40.0-50.0); HGB 10.9 g/dL (13.5-17.5); Immature Grans % 0.2; Lymphocytes % 17.4; MCH 26.1 pg (27.0-33.0); MCHC 32.2 % (32.0-36.0); MCV 81 fL (80-95); MPV 11.3 fL (8.0-11.0); Neutrophils % 62.9; Platelet Count 112 10^3/uL (130-400); RBC 4.18 10^6/uL (4.36-5.78); RDW 15.5 % (11.8-14.1); RDW-SD 45.4 fL
[2023-02-10 06:43] LABS: Anion Gap 10.2 mmol/L (3-11); BUN 21 mg/dL (7-18); CO2 26.8 mmol/L (21.0-32.0); Calcium 8.8 mg/dL (8.5-10.1); Chloride 108 mmol/L (98-107); Glucose 151 mg/dL (74-106); Magnesium 1.8 mg/dL (1.8-2.4); Potassium 3.5 mmol/L (3.5-5.1); Sodium 145 mmol/L (136-145)
[2023-02-10] MEDS: Furosemide 40 MG/4 ML VIAL 80 MG IVP (09:06)
[2023-02-10] MEDS: Carvedilol 6.25 MG TAB PO (09:12)
[2023-02-10] MEDS: Tamsulosin 0.4 MG CAPCR PO (09:12)
[2023-02-10] MEDS: Apixaban 5 MG TAB PO (09:13)
[2023-02-10] MEDS: Empaglifozin 25 MG TAB PO (09:13)
[2023-02-10] MEDS: Pregabalin 50 MG CAP PO (09:15)
[2023-02-10] MEDS: Venlafaxine 150 MG CAPCR PO (09:15)
[2023-02-10] MEDS: Valsartan 40 MG TAB PO (09:16)
[2023-02-10] MEDS: Pantoprazole 40 MG TABCR PO (09:16)
[2023-02-10] MEDS: Spironolactone 25 MG TAB PO (09:16)
[2023-02-10] MEDS: Insulin Aspart 300 UNITS/3 ML PEN SC ×2 (09:17→12:45)
[2023-02-10] MEDS: Normal Saline Flush 10 ML SYR IVP (09:24)
--- NOTE | 2023-02-10 09:46 | RESPIRATORY ---
Called the [facility] at the [place] and left a message for [place] to notify them that the patient's home CPAP machine is no longer working due to soda being spilled on it.
--- NOTE | 2023-02-10 10:18 | IN_ITS ---
Date of service: 02/10/23 Time of Service: 09:38 PT Notes Visit Reasons: Acute Chronic Heart Failure w/Reduced Ejection Physical Therapy Inpatient Initial Evaluation Date: 02/10/2023 Referring Doctor: Sydni Mckeon NP PT Orders: PT CONSULT: Limited ability Precautions: Fall. Standard. Activity as tolerated. Patient Profile/Admitting Diagnosis: Osmar is a 78-year-old male who presented to the ED on 02/09/2023 due to chief complaints of worsening breath with exertion, intermittent chest pressure with exertion, and low oxygen levels. Patient is admitted for management of congestive heart failure, chest pain, hypertension, NIDDM, incontinence, fall, d epression, and colon cancer. PMHX: All Active Problems?(Updated 02/09/23 @ 16:52 by Sydni Mckeon NP) ANETTE (obstructive sleep apnea) (Chronic) Chest pain (Acute) CHF exacerbation (Acute) Depression (Chronic) Non-insulin dependent type 2 diabetes mellitus (Chronic) Incontinence (Chronic) Hypertension (Chronic) CHF (congestive heart failure) (Chronic) Medical History?(Updated 02/09/23 @ 16:52 by Sydni Mckeon NP) Chronic anticoagulation Chronic low back pain Cirrhosis TIPs placed (?when, [facility]? 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, Dx [facility] as per pt History of colon cancer Palliative care encounter Followed by [facility] Portal hypertension Recurrent intestinal obstruction Scleral icterus Surgical History? Colostomy in place H/O left hemicolectomy S/P TIPS (transjugular intrahepatic portosystemic shunt) Social History/Home Situation: Osmar lives with and son in a private home with 3 steps to enter with rails on both sides. has not been doing well herself and cannot be able to help patient physically. Son may be available as needed during the day. Equipment Owned/DME: 4WW, FWW, SPC Subjective: Denies headache and chest pain but did report some mild lightheadedness throughout session that minimally limited mobility performance. Did not report as much shortness of breath during the session as he did on admission. Objective: General Observation: Supine in bed, telemetry monitoring in place, oxygen supplementation at 1 L/min saturating at 95%. Mental Status: Alert and oriented as to person, place, time, and purpose. Able to pay attention, focus, and respond appropriately. Pain: Denies Vital Signs: Maintained oxygen saturation at 95% on 1L, 88% to 94% on room air during second attempt at walking. ROM: Right Upper Extremity: Shoulder Flexion WFL. Shoulder abduction WFL. Elbow flexion WFL. Wrist flexion WFL. Functional opening and closing of hand WFL. Left Upper Extremity: Shoulder Flexion WFL. Shoulder abduction WFL. Elbow flexion WFL. Wrist flexion WFL. Functional opening and closing of hand WFL. Right Lower Extremity: Hip flexion WFL. Hip abduction WFL. Knee flexion WFL. Ankle dorsiflexion WFL. Ankle plantarflexion WFL. Left Lower Extremity: Hip flexion WFL. Hip abduction WFL. Knee flexion WFL. Ankle dorsiflexion WFL. Ankle plantarflexion WFL. Strength: Right Upper Extremity: Shoulder flexors 4/5. Shoulder abductors 4/5. Elbow flexors 5/5. Elbow extensors 5/5. Package Maker strong. Left Upper Extremity: Shoulder flexors 4/5. Shoulder abductors 4/5. Elbow flexors 5/5. Elbow extensors 5/5. Package Maker strong. Right Lower Extremity: Hip flexors 4/5. Hip abductors 4/5. Knee flexors 5/5. Knee extensors 4/5. Ankle dorsiflexors 4/5. Ankle plantarflexors 5/5. Left Lower Extremity: Hip flexors 4/5. Hip abductors 4/5. Knee flexors 5/5. Knee extensors 4/5. Ankle dorsiflexors 4/5. Ankle plantarflexors 5/5. Bed Mobility/Transfers: Supine to sit stand by assist Sit to supine stand by assist Sit to stand contact-guard assist Stand to sit standby assist Gait: Instructed patient with level surface ambulation of 150 feet requiring standby assist with oxygen supplementation ranging from 93% to 95% on 1 L. Unique decreased. Also attempted another 250 feet of level surface ambulation without oxygen supplementation with oxygen level ranging from 88% to 94% using front wheeled walker with minimal shortness of breath and report of minimal fatigue from patient at end of activity. Balance: Static Sitting: Normal Dynamic Sitting: Normal Static Standing: Fair Dynamic Standing: Fair Special Tests: Mobility Limitations Standardized Measure [employer] AM-PAC 6 clicks Basic Mobility Inpatient Short Form: Raw Score: 23 CMS Score: 11% deficit 4-Stage Balance test: Able to maintain feet together and semi-tandem for 10 seconds but is unable to do so with full tandem and one-legged stance. Informed Consent/Education: Patient was instructed in purpose of PT consult and plan of care. Agreeable to proceed with established PT POC to achieve personal goals. Assessment: Patient presents with clinical signs and symptoms consistent with current/admitting diagnoses that have resulted to mobility limitations, gait instability, generalized weakness, and overall ADL decline as demonstrated by the following impairment level findings: 1. Impaired standing balance 2. Impaired activity tolerance 3. Shortness of breath Impairments are contributing to the following functional limitations: 1. Difficulty with ambulation without assistive device and physical assistance 2. Increased completion time for mobility ADL performance 3. Increased risk for falls 4. Difficulty with managing steps alone safely Patient is assessed as a 78072 moderate complexity based on the following: History: 78-year-old male with past medical history as indicated above Examination: Demonstrable impairment in strength, balance, and mobility level with underlying impairments and functional limitations as exhibited above as well as deficit score of 11% utilizing the [facility] Mobility Inpatient Short Form Presentation: Stable Decision Makin moderate complexity Goals: N/A. PT evaluation only and one treatment session only for functional mobility training and HEP instruction. Plan of Care/Treatment Plan: N/A. PT evaluation only and one treatment session only for functional mobility training and HEP instruction. DISCHARGE RECOMMENDATIONS: [] Home with no services [] [X] Home with services. Patient will benefit from home health PT services in order to progress mobility level using least restrictive assistive ambulatory device, assess home safety, identify additional equipment needs, and establish a functional maintenance program that will increase ability of patient to remain at home. [] Home with outpatient PT [] [] SNF for continued rehabilitation [] [] [facility] [] [] SNF versus LTC based on ability to participate and progress [] TREATMENT CODE/TIME: 53516 x 20 minutes, 89550 x 14 minutes beginning at 9:38 AM. Thank you for the opportunity to participate in the care of this patient. Nita Denis PT, DPT, CLT [facility] [place], [place]
--- NOTE | 2023-02-10 10:26 | INITIAL_ITS ---
- If Service Date Differs Date of service: 02/10/23 Time of Service: 10:26 Care Management Initial Assess REASON FOR HOSPITALIZATION:: CHF PAST MEDICAL HISTORY/PAST SURGICAL HISTORY:: All Active Problems (Updated 02/09/23 @ 16:52 by Sydni Mckeon NP). ANETTE (obstructive sleep apnea) (Chronic). Chest pain (Acute). CHF exacerbation (Acute). Depression (Chronic). Non- insulin dependent type 2 diabetes mellitus (Chronic). Incontinence (Chronic). Hypertension (Chronic). CHF (congestive heart failure) (Chronic). Medical History (Updated 02/09/23 @ 16:52 by Sydni Mckeon NP). Chronic anticoagulation. Chronic low back pain. Cirrhosis. TIPs placed (?when, [facility] Colon cancer. Confusion. COVID. Endocarditis. September 2022, [facility] as per pt. History of colon cancer. Palliative care encounter. Followed by [facility]. Portal hypertension. Recurrent intestinal obstruction. Scleral icterus. Surgical History . Colostomy in place. H/O left hemicolectomy. S/P TIPS (transjugular intrahepatic portosystemic shunt) PREVIOUS FUNCTIONAL STATUS/SOCIAL/FAMILY SUPPORTS:: Merrill lives in [place] with his , Clary, his son Osmar Gibson who is disabled, and his naihcio-ey-tax Fuad who has stage IV lung cancer. 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 He is an [employer] and is 100% [facility] connected. He is independent with his ADLs at baseline. CURRENT FUNCTIONAL STATUS:: Merrill was sitting up in bed when CM met with him. He was cordial and agreeable to conversation. Merrill stated that he is feeling much better than when he arrived. He was unable to answer several questions about his care at home and suggested CM contact his .He seemed a bit vague and forgetful and this was confirmed by the provider to be his baseline. It is possible Merrill will be dsicharged home later today. ADVANCE DIRECTIVES:: none on file Has patient been provided with info about the portal/API?: Yes Did the patient sign up for the portal?: No CODE STATUS:: Full Code INSURANCE COVERAGE / FINANCIAL ISSUES:: [place] CURRENT HOME/COMMUNITY SERVICES/EQUIPMENT:: Home health through [facility] - RN, PT and OT PRIMARY CARE PHYSICIAN:: Osmar Carver POTENTIAL DISCHARGE NEEDS:: Follow up with PCP and plan of care PATIENT/FAMILY EDUCATION NEEDS:: Review of discharge instructions, limitations, activity, follow up plan, discuss Ask Me Three TRANSPORTATION:: via private vehicle with family PLAN:: Osmar will likely discharge home with a resumption of home health services provided by [facility] but the expense is covered by the [facility]. He will follow up with his community providers and plan of care and transport with family.CM will follow and support discharge needs.
--- NOTE | 2023-02-10 11:27 | W.PM.PROGNOT ---
Date of Service Date of service: 02/10/23 Time of Service: 11:27 Subjective Subjective Patient reports: no new complaints, pain is less (no pain), tolerating liquids well, tolerating a regular diet, bowel movement and afebrile; denies diarrhea or vomiting Exam Const General: no acute distress Orientation: alert HENID Head: normal to inspection Ears: external ears normal General nose exam: external nose normal Mouth: moist mucous membranes Eyes General: appearance normal, both eyes and all related structures Neck Neck: normal visual inspection Resp Effort & Inspection: no grunting and not labored Auscultation: diminished lung sounds and no wheezes Cardio Jugular venous pressure: no JVD Rate: regular rate Heart Sounds: no murmurs GI Palpation: soft and nontender Skin General skin exam: no rashes or lesions noted Neuro General: patient alert and patient oriented x3 Extrem General: normal to inspection Psych Mental Status: mental status grossly normal Objective Last Vital Signs Temp 36.8 C 02/10/23 11:23 Pulse 53 L 02/10/23 11:23 Resp 16 02/10/23 11:23 BP 143/61 H 02/10/23 11:23 Pulse Ox 91 L 02/10/23 11:23 Laboratory Results - last 24 hr 02/09/23 02/09/23 02/09/23 14:56 17:49 17:49 WBC RBC Hgb Hct MCV MCH MCHC RDW Plt Count MPV Immature Gran % Neutrophils % Lymphocytes % Monocytes % Eosinophils % Basophils % Nucleated RBC % Absolute Neutrophils Absolute Lymphocytes Absolute Monocytes Absolute Eosinophils Absolute Basophils Sodium Potassium Chloride Carbon Dioxide Anion Gap BUN Creatinine Est GFR (CKD-EPI 2020) Glucose Calcium Magnesium Troponin I 51 51 TSH 0.05 L Add-On Test Request 02/09/23 02/09/23 02/10/23 19:49 21:45 05:38 WBC RBC Hgb Hct MCV MCH MCHC RDW Plt Count MPV Immature Gran % Neutrophils % Lymphocytes % Monocytes % Eosinophils % Basophils % Nucleated RBC % Absolute Neutrophils Absolute Lymphocytes Absolute Monocytes Absolute Eosinophils Absolute Basophils Sodium 145 Potassium 3.5 Chloride 108 H Carbon Dioxide 26.8 Anion Gap 10.2 BUN 21 H Creatinine 1.0 Est GFR (CKD-EPI 2020) 78.00 Glucose 151 H Calcium 8.8 Magnesium 1.8 Troponin I 50 TSH Add-On Test Request DONE 02/10/23 05:38 WBC 5.30 RBC 4.18 L Hgb 10.9 L Hct 33.9 L MCV 81 MCH 26.1 L MCHC 32.2 RDW 15.5 H Plt Count 112 L MPV 11.3 H Immature Gran % 0.2 Neutrophils % 62.9 Lymphocytes % 17.4 Monocytes % 14.0 Eosinophils % 5.1 Basophils % 0.4 Nucleated RBC % 0.0 Absolute Neutrophils 3.34 Absolute Lymphocytes 0.92 L Absolute Monocytes 0.74 Absolute Eosinophils 0.27 Absolute Basophils 0.02 Sodium Potassium Chloride Carbon Dioxide Anion Gap BUN Creatinine Est GFR (CKD-EPI 2020) Glucose Calcium Magnesium Troponin I TSH Add-On Test Request
--- NOTE | 2023-02-10 11:38 | W.PM.DS.N ---
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 (5) Incontinence: Status: Chronic (6) Fall: Status: Inactive (7) Depression: Status: Chronic (8) Colon cancer: (9) DVT prophylaxis: Status: Deleted (10) Discharge planning issues: Status: Deleted Discharge Plan Disposition Patient Disposition: Home W/Home Health Services Condition: Improving Discharge Details Reason For Visit: Acute Chronic Heart Failure w/Reduced Ejection Admit Date/Time: 02/09/23 09:26 Admit Provider: Carl Burton Attending Provider: Carl Burton Primary Care Provider: Osmar Carver [facility] Course Hospital Course: This is a 78 yo male patient with hx of htn, chf, dm, recent admission for abdominal pain came to the [facility] ED on 02/09/2023 with the chief complaint of 3 days of worsening shortness of breath with exertion. He stated he also had intermittent chest pressure with exertion as well, no pain at rest. He called EMS and was noted to have a room air saturation of 87%, was placed on 2L NC. He denied any recent fevers, no cough. He did speak clearly in 3-4 word sentences in the ED. He denied any current chest pain or pressure. He had diminished breath sounds at the bases bilaterally, soft nontender abdomen, no calf tenderness, three plus pitting edema up to the mid tibia bilaterally. He had an echo in November that had an EF of 50-55%, on pocus done in the ED, his EF appears less then 50%, He was given Furosemide, and EKG/troponin, CBC, Probnp, CMP, and CXR were done.? Xray showed mild CHF, labs without significant change from baseline, stable on 3L NC, no respiratory distress at rest. He was making urine, collier placed in ED, he was given 40mg IV lasix. He was admitted to the medical floor, stable,?for continued diuresis and monitoring.? He diuresed 5 litres, his lungs are clear and he no longer requires oxygen.? The indwelling urinary catheter was removed and he was able to void on his own.? He was changed to oral furosemide and told to increase his dose to 40 mg twice a day and follow up with his PCP next week for further instructions.? He did have one episode of chest pain while here, it was relieved by one nitroglycerin sublingual. ?Troponins 60, 65, 51, 51, 50. ProBNP 1385. TSH 0.05, this should be followed up by PCP to adjust Levothyroxine dose. He also had some ventricular ectopy on telemetry and is being discharged with a 30 day library monitor.? Respiratory therapy demonstrated to him how to use it. His blood pressure was consistently high here, 170?s/60?s and should be followed up by PCP.? He is being discharged to home, stable, ?with resumption of [place] home health nursing and [facility]. He has been scheduled for an outpatient stress test as well as follow up labs to check electrolytes in three days. Home Meds and New Rx's Prescriptions: New nitroglycerin 0.4 mg Tablet, Sublingual 0.4 mg sublingual Q5 MIN PRN X3 PRNQty: 30 0RF Continued carvedilol 3.125 mg tablet 6.25 mg PO BID venlafaxine 150 mg Capsule,Extended Release 24hr 150 mg PO DAILY spironolactone 25 mg Tablet 25 mg PO DAILY prazosin 5 mg Capsule 10 mg PO QHS pantoprazole 40 mg Tablet,Delayed Release (Dr/Ec) 40 mg PO DAILY metformin 1,000 mg Tablet 1,000 mg PO BID levothyroxine 200 mcg Tablet 200 mcg PO DAILY valsartan 40 mg Tablet 40 mg PO BID pregabalin 50 mg Capsule 50 mg PO BID acetaminophen [Tylenol] 325 mg Capsule 650 mg PO Q6H MDD 3000 PRN Eliquis 5 mg Tablet 5 mg PO BID Jardiance 25 mg Tablet 25 mg PO DAILY tamsulosin 0.4 mg Capsule 0.4 mg PO DAILY polyethylene glycol 3350 17 gram Powder In Packet 17 g PO DAILY Qty: 0 0RF Changed furosemide [Lasix] 20 mg Tablet 40 mg PO BID Qty: 0 0RF Discharge Instructions Instructions: Furosemide (By mouth), Heart Failure (DC), Holter Monitor (GEN) Additional Instructions: Take furosemide 40 mg twice a day until follow up with your PCP. You will be notified by the hospital regarding a time for a stress test within the next week. Labs should be checked in 3 days for potassium and magnesium, it has been ordered. Home health can draw it for you. RESUMPTION of [place] Home Health nursing and [employer] Stand Alone Forms: Nursing Discharge Form Referrals: Osmar Carver [Primary Care Provider] - (A nurse will call you from the [place] to make an Appointment Follow up TSH 0.05; High BP; library monitor; lasix dosing) Activity:: Activity as Tolerated Equipment/Supplies:: Walker Diet:: Carb Counting Discharge Orders Discharge Orders: Discharge Order (Routine); Ordered 02/10/23 Ordered By: Sydni Mckeon Other Ambulatory Orders: Basic Metabolic Panel (Routine) Timeframe: 3 Days Location: None Selected Ordered By: Sydni Mckeon Cardiac Event Recorder (Routine) Timeframe: [id number] Facility: [facility] - Location: Respiratory Therapy Ordered By: Sydni Mckeon Magnesium (Routine) Location: None Selected Ordered By: Sydni Mckeon [place] MPI rest & stress grp (Routine) Timeframe: 1 Week Location: None Selected Ordered By: Sydni Mckeon DS: Summary Time Spent with Patient providing and/or coordinating discharge services: Greater than 30 minutes Status at Discharge Functional status at discharge: uses cane/walker Overall status at discharge: patient is back to baseline Mental Status: mental status grossly normal Speech and Movement: speech and movement normal Mood: congruent mood Affect: normal affect Exam Const General: no acute distress Orientation: alert HENMT Head: normal to inspection Ears: external ears normal General nose exam: external nose normal Mouth: moist mucous membranes Eyes General: appearance normal, both eyes and all related structures Neck Neck: normal visual inspection Resp Effort & Inspection: no grunting and not labored Auscultation: diminished lung sounds and no wheezes Cardio Jugular venous pressure: no JVD Rate: regular rate Heart Sounds: no murmurs GI Palpation: soft and nontender Skin General skin exam: no rashes or lesions noted Neuro General: patient alert and patient oriented x3 Extrem General: normal to inspection Psych Mental Status: mental status grossly normal Speech and Movement: speech and movement normal Mood: congruent mood Affect: normal affect DS: Data Vitals/I&O Vitals and I&O: Vital Signs Temperature 36.8 C 02/10/23 11:23 Temperature Source Tympanic 02/10/23 11:23 Pulse 53 L 02/10/23 11:23 Pulse Rhythm Regular 02/09/23 23:31 Pulse 62 04/16/23 09:31 Respiratory Rate 16 02/10/23 11:23 Respiratory Effort Normal 02/09/23 23:31 Respiratory Depth Normal 02/09/23 23:31 Respiratory Pattern Normal 02/09/23 23:31 Blood Pressure 143/61 H 02/10/23 11:23 Blood Pressure Mean 90 02/09/23 09:31 Pulse Oximetry 91 L 02/10/23 11:23 Oxygen Delivery Method Room Air 02/10/23 11:23 Oxygen Flow Rate 0 02/10/23 11:23 Fraction of Inspired Oxygen (FIO2) 24 02/10/23 07:49 Pain Level 0 02/10/23 11:23 Comment reports some chest discomfort, unable to clearly articulate but states he doesn't feel right, patient does state this happens at home,nurse will update team, no changes reported on telemetry 02/10/23 09:28 Intake & Output 02/09/23 02/09/23 02/10/23 11:59 23:59 11:59 Intake Total 980 / 980 Output Total 2200 / 6450 4250 / 6450 1700 / 1700 Balance -2200 / -5470 -3270 / -5470 -1700 / -1700 Weight 113.4 kg Intake: Oral 980 / 980 Output: Urine 2200 / 6450 4250 / 6450 1700 / 1700 Other: Urine Color Yellow Yellow Yellow Straw Urine Appearance Clear Cloudy Clear Data Completed and Pending Labs on day of discharge: Labs from last 24 hours 02/10/23 02/10/23 02/09/23 05:38 05:38 21:45 WBC 5.30 RBC 4.18 L Hgb 10.9 L Hct 33.9 L MCV 81 MCH 26.1 L MCHC 32.2 RDW 15.5 H Plt Count 112 L MPV 11.3 H Immature Gran % 0.2 Neutrophils % 62.9 Lymphocytes % 17.4 Monocytes % 14.0 Eosinophils % 5.1 Basophils % 0.4 Nucleated RBC % 0.0 Absolute Neutrophils 3.34 Absolute Lymphocytes 0.92 L Absolute Monocytes 0.74 Absolute Eosinophils 0.27 Absolute Basophils 0.02 Sodium 145 Potassium 3.5 Chloride 108 H Carbon Dioxide 26.8 Anion Gap 10.2 BUN 21 H Creatinine 1.0 Est GFR (CKD-EPI 2020) 78.00 Glucose 151 H Calcium 8.8 Magnesium 1.8 Troponin I 50 TSH Add-On Test Request 02/09/23 02/09/23 02/09/23 19:49 17:49 17:49 WBC RBC Hgb Hct MCV MCH MCHC RDW Plt Count MPV Immature Gran % Neutrophils % Lymphocytes % Monocytes % Eosinophils % Basophils % Nucleated RBC % Absolute Neutrophils Absolute Lymphocytes Absolute Monocytes Absolute Eosinophils Absolute Basophils Sodium Potassium Chloride Carbon Dioxide Anion Gap BUN Creatinine Est GFR (CKD-EPI 2020) Glucose Calcium Magnesium Troponin I 51 TSH 0.05 L Add-On Test Request DONE 02/09/23 14:56 WBC RBC Hgb Hct MCV MCH MCHC RDW Plt Count MPV Immature Gran % Neutrophils % Lymphocytes % Monocytes % Eosinophils % Basophils % Nucleated RBC % Absolute Neutrophils Absolute Lymphocytes Absolute Monocytes Absolute Eosinophils Absolute Basophils Sodium Potassium Chloride Carbon Dioxide Anion Gap BUN Creatinine Est GFR (CKD-EPI 2020) Glucose Calcium Magnesium Troponin I 51 TSH Add-On Test Request PFSH All Active Problems (Updated 02/10/23 @ 11:54 by Sydni Mckeon NP) Medication monitoring encounter (Acute) ANETTE (obstructive sleep apnea) (Chronic) Chest pain (Acute) CHF exacerbation (Acute) Depression (Chronic) Non-insulin dependent type 2 diabetes mellitus (Chronic) Incontinence (Chronic) Hypertension (Chronic) CHF (congestive heart failure) (Chronic) Medical History (Updated 02/10/23 @ 11:54 by Sydni Mckeon NP) Chronic anticoagulation Chronic low back pain Cirrhosis TIPs placed (?when, [facility]? 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, Dx [facility] as per pt History of colon cancer Palliative care encounter Followed by [facility] Portal hypertension Recurrent intestinal obstruction Scleral icterus Surgical History Colostomy in place H/O left hemicolectomy S/P TIPS (transjugular intrahepatic portosystemic shunt) Social History Smoking/Tobacco Use Status: Former Tobacco Use Smoking risk assessment performed?: Yes Alcohol Intake: former Drug use: Never Substance use type: does not use Do you feel safe at home: Yes Do you feel safe in your relationship?: Yes Additional Social history: Lives with , son, and sick [id number] in [place], moved up from [place] in 2019. [place] . Time Spent with Patient Time Spent with Patient: 45-69 minutes Time was spent: preparing to see the patient(eg.review tests), ordering medications,tests, procedures, referring, communicating with other health critical care specialist, indepentently interpreting results, counseling the patient and care coordination
--- NOTE | 2023-02-10 17:51 | PDOC.CMDIS ---
- If Service Date Differs Date of service: 02/10/23 Time of Service: 17:51 LACE Index Scoring Tool - Questions: Length of Stay (in days): 1 Acuity (Admit via E.D.?): Yes Comorbidities: Diabetes w/o Complication, Congestive Heart Failure, Any Tumor E.D. Visits: 7 - Answers: Total Score: 13 Risk of Readmission: High Risk Care Management Discharge Reason for Hospitalization: CHF Discharge Plan: Osmar will discharge home with a resumption of home health services for nursing, PT and OT provided by [facility] staff but covered by the OR. He will follow up with his community providers and plan of care and transport with family. Patient/Family Education Needs: Review of discharge instructions, limitations, activity, follow up plan, discuss Ask Me Three Services Needed at Discharge: Home Health Care Services
== END 2023-02-10 15:50 | disposition home health service (06) | DRG 292 ==
LOC: ER 09:55 → MS 10:07
PROVIDERS: Nurse Practitioner Family; Physician Assistant; Admitting Provider Internal Medicine; Emergency Provider Emergency Medicine; PCP Nurse Practitioner Adult Health; Visit Provider Internal Medicine
DX: I11.0 Hypertensive heart disease with heart failure (principal); K76.6 Portal hypertension; I50.9 Heart failure, unspecified; E11.9 Type 2 diabetes mellitus without complications; Z79.84 Long term (current) use of oral hypoglycemic drugs; F32.A Depression, unspecified; R32 Unspecified urinary incontinence; G47.33 Obstructive sleep apnea (adult) (pediatric); Z79.01 Long term (current) use of anticoagulants; G89.29 Other chronic pain; M54.50 Low back pain, unspecified; K74.60 Unspecified cirrhosis of liver; Z87.891 Personal history of nicotine dependence; Z93.3 Colostomy status; R07.89 Other chest pain; Z85.038 Personal history of other malignant neoplasm of large intestine; Z90.49 Acquired absence of other specified parts of digestive tract; R29.6 Repeated falls
CPT/HCPCS: 36415; 51702; 76604; 80048; 80053; 82805; 87637; 93005; 93270; 93308; 94618; 96374; 97162; 97530; 99285; 36600; 71046; 81003; 81015; 83735; 83880; 84443; 84484; 85025; 93010; 94660; 94667; 94668; 94760; 99222; 99239; J1940

== ENCOUNTER 2023-02-14 13:57 | Outpatient (REF) | payer OTHER, SELFPAY ==
[2023-02-14 15:14] LABS: Anion Gap 10.3 mmol/L (3-11); BUN 19 mg/dL (7-18); CO2 23.7 mmol/L (21.0-32.0); Chloride 104 mmol/L (98-107); Glucose 187 mg/dL (74-106); Magnesium 1.9 mg/dL (1.8-2.4); Potassium 3.7 mmol/L (3.5-5.1); Sodium 138 mmol/L (136-145)
== END 2023-02-14 13:58 | disposition home or self-care (01) ==
LOC: LBN 13:57
PROVIDERS: PCP Nurse Practitioner Adult Health; Visit Provider Nurse Practitioner Family
DX: I50.9 Heart failure, unspecified (principal); I10 Essential (primary) hypertension; E11.9 Type 2 diabetes mellitus without complications
CPT/HCPCS: 80048; 83735

== ENCOUNTER 2023-02-21 12:57 | Outpatient (CLI) | payer OTHER, SELFPAY ==
--- NOTE | 2023-02-21 14:20 | W.CARDEVENT ---
Date of service: 02/21/23 Time of Service: 14:21 Cardiac Event Recorder Referring Provider:: alex ramirez Indications:: Chest pain Cardiac Event Note: This is a cardiac event monitor that actually recorded only 7 hours and 42 minutes Baseline rhythm was sinus with first-degree AV block Average heart rate was 67 There was no atrial fibrillation, no high-grade AV block there were several atrial premature beats 2 ventricular triplets were recorded , No pauses greater than 3 seconds No patient symptoms were reported
== END 2023-02-21 12:58 | disposition home or self-care (01) ==
LOC: CARDOPNVT 12:57
PROVIDERS: PCP Nurse Practitioner Adult Health; Visit Provider Internal Medicine Cardiovascular Disease
DX: R07.9 Chest pain, unspecified (principal); I49.1 Atrial premature depolarization; I44.0 Atrioventricular block, first degree; I49.3 Ventricular premature depolarization

== ENCOUNTER 2023-02-21 16:34 | Emergency (ER) | payer OTHER, SELFPAY ==
[2023-02-21 16:38] VITALS: BP 164/57; PULSE 65; RESP 16; TEMP 37.3; O2SAT 94
--- NOTE | 2023-02-21 16:51 | W.ED.GENAD ---
Discharge Plan Disposition Patient Disposition: Home Discharge Details Clinical Impression: Acute UTI, Hematuria due to acute cystitis Primary Care Provider: Maryann Whitt ED Provider: Ciarra Torres Home Meds and New Rx's Prescriptions: New levofloxacin 500 mg tablet 500 mg PO DAILY 7 Days Qty: 7 0RF Rx Instructions: Take 1 tablet by mouth daily for the next 7 days. Continued carvedilol 3.125 mg tablet 6.25 mg PO BID venlafaxine 150 mg Capsule,Extended Release 24hr 150 mg PO DAILY spironolactone 25 mg Tablet 25 mg PO DAILY prazosin 5 mg Capsule 10 mg PO QHS pantoprazole 40 mg Tablet,Delayed Release (Dr/Ec) 40 mg PO DAILY metformin 1,000 mg Tablet 1,000 mg PO BID levothyroxine 200 mcg Tablet 200 mcg PO DAILY valsartan 40 mg Tablet 40 mg PO BID pregabalin 50 mg Capsule 50 mg PO BID acetaminophen [Tylenol] 325 mg Capsule 650 mg PO Q6H MDD 3000 PRN Eliquis 5 mg Tablet 5 mg PO BID Jardiance 25 mg Tablet 25 mg PO DAILY nitroglycerin 0.4 mg Tablet, Sublingual 0.4 mg sublingual Q5 MIN PRN X3 PRNQty: 30 0RF furosemide [Lasix] 20 mg Tablet 40 mg PO BID Qty: 0 0RF tamsulosin 0.4 mg Capsule 0.4 mg PO DAILY polyethylene glycol 3350 17 gram Powder In Packet 17 g PO DAILY Qty: 0 0RF Discharge Instructions Instructions: Urinary Tract Infection in Men (ED), Hematuria (ED) Additional Instructions: Please take the antibiotic once daily for the next 7 days as instructed. You do have a urinary tract infection. Follow up with primary care provider in 3-5 days. Return to ED sooner if any worsening or concerns. Increase oral fluids. Referrals: Maryann Whitt [Primary Care Provider] - 3 days Discharge Data Discharge Date/Time-TO BE ENTERED AT DEPARTURE: 02/21/23 17:30 Medical Decision Making 78-year-old male with a past medical history of colostomy due to a left hemicolectomy, portal hypertension, endocarditis, cirrhosis, colon cancer who is chronically anticoagulated on Eliquis presents to the ER with hematuria which has been ongoing for the last 4 days. He reports urinary frequency. He denies any fever. Denies any dysuria or pain. No nausea vomiting diarrhea. Urinalysis shows moderate blood, trace leukocytes 10-20 RBCs 20-50 WBCs culture is pending at this time. We will place him on levofloxacin 500 mg twice daily x7 days first dose was given here in the department. Suspect hemorrhagic cystitis. This text was generated using [employer] dictation system, please disregard any oddities of phrase or misspellings. Lab Data Lab results reviewed: Yes I reviewed the patient's lab results. Labs: 02/21/23 16:45 Urine - Reflex from Ua Urine Culture - Pending Laboratory Tests Range/Units 02/21/23 16:45 Urine Color (Yellow) Yellow Urine Clarity (Clear) Sl Cloudy Urine pH (5-8) 6.0 Ur Specific [place] (1.005-1.025) 1.015 Urine Protein (Negative) mg/dL Negative Urine Ketones (Negative) mg/dL Negative Urine Blood (Negative) Moderate H Urine Nitrite (Negative) Negative Urine Bilirubin (Negative) Negative Urine Urobilinogen (Up to 0.2) mg/dL 1.0 H Ur Leukocyte Esterase (Negative) Trace H Urine RBC (0-2) HPF 10-20 H Urine WBC (0-5) HPF 20-50 H Ur Epithelial Cells (Negative) HPF Few Urine Crystals (Negative) HPF Negative Urine Bacteria (Negative) HPF Moderate Urine Casts (Negative) LPF Negative Urine Mucus (Negative) Negative Urine Other (Negative) Few Transitional Ur Culture Indicated? Yes Urine Glucose (Negative) mg/dL >=1000 H HPI General Mode of arrival: ambulatory. Date/Time Provider Initiated Documentation: 02/21/23 16:35. Limitations to Documentation: no limitations. Information obtained by: patient, RN notes reviewed and old records reviewed. HPI Narrative: 78-year-old male with a past medical history of colostomy due to a left hemicolectomy, portal hypertension, endocarditis, cirrhosis, colon cancer who is chronically anticoagulated on Eliquis presents to the ER with hematuria which has been ongoing for the last 4 days. He reports urinary frequency. He denies any fever. Denies any dysuria or pain. No nausea vomiting diarrhea. Related Data Home Medications Medication Instructions Recorded Confirmed acetaminophen 325 mg capsule 650 mg PO Q6H PRN 11/08/22 02/21/23 (Tylenol) apixaban 5 mg tablet (Eliquis) 5 mg PO BID 11/08/22 02/21/23 empagliflozin 25 mg tablet 25 mg PO DAILY 11/08/22 02/21/23 (Jardiance) levothyroxine 200 mcg tablet 200 mcg PO DAILY 11/08/22 02/21/23 metformin 1,000 mg tablet 1,000 mg PO BID 11/08/22 02/21/23 pantoprazole 40 mg tablet,delayed 40 mg PO DAILY 11/08/22 02/21/23 release prazosin 5 mg capsule 10 mg PO QHS 11/08/22 02/21/23 pregabalin 50 mg capsule 50 mg PO BID 11/08/22 02/21/23 spironolactone 25 mg tablet 25 mg PO DAILY 11/08/22 02/21/23 valsartan 40 mg tablet 40 mg PO BID 11/08/22 02/21/23 venlafaxine 150 mg 150 mg PO DAILY 11/08/22 02/21/23 capsule,extended release 24 hr tamsulosin 0.4 mg capsule 0.4 mg PO DAILY 11/29/22 02/21/23 carvedilol 3.125 mg tablet 6.25 mg PO BID 12/27/22 02/21/23 polyethylene glycol 3350 17 gram 17 g PO DAILY #0 ea 01/28/23 02/21/23 oral powder packet furosemide 20 mg tablet (Lasix) 40 mg PO BID #0 tabs 02/10/23 02/21/23 nitroglycerin 0.4 mg sublingual 0.4 mg sublingual Q5 MIN PRN X3 02/10/23 02/21/23 tablet PRN #30 tabs levofloxacin 500 mg tablet 500 mg PO DAILY uti 7 days #7 tabs 02/21/23 Previous Rx's Medication Instructions Recorded polyethylene glycol 3350 17 gram 17 g PO DAILY #0 ea 01/28/23 oral powder packet furosemide 20 mg tablet (Lasix) 40 mg PO BID #0 tabs 02/10/23 nitroglycerin 0.4 mg sublingual 0.4 mg sublingual Q5 MIN PRN X3 02/10/23 tablet PRN #30 tabs levofloxacin 500 mg tablet 500 mg PO DAILY uti 7 days #7 tabs 02/21/23 Allergies Allergy/AdvReac Type Severity Reaction Status Date / Time Penicillins Allergy Mild Itching Unverified 02/21/23 16:48 morphine AdvReac Severe vomiting Unverified 02/21/23 16:48 mussels AdvReac Severe vomiting Unverified 02/21/23 16:48 General Stated Complaint: Urinary ANNA: 3 Review of Systems All systems reviewed & are unremarkable except as noted in HPI and below Genitourinary Genitourinary: Reports hematuria and Reports urinary frequency PFSH All Active Problems (Updated 02/21/23 @ 17:16 by Ciarra Torres NP) Acute UTI (Acute) Hematuria due to acute cystitis (Acute) Medication monitoring encounter (Acute) ANETTE (obstructive sleep apnea) (Chronic) Chest pain (Acute) CHF exacerbation (Acute) Depression (Chronic) Non-insulin dependent type 2 diabetes mellitus (Chronic) Incontinence (Chronic) Hypertension (Chronic) CHF (congestive heart failure) (Chronic) Medical History Chronic anticoagulation Chronic low back pain Cirrhosis TIPs placed (?when, [facility]? 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, Dx [facility] as per pt History of colon cancer Palliative care encounter Followed by [facility] Portal hypertension Recurrent intestinal obstruction Scleral icterus Surgical History Colostomy in place H/O left hemicolectomy S/P TIPS (transjugular intrahepatic portosystemic shunt) Social History Smoking/Tobacco Use Status: Former Tobacco Use Smoking risk assessment performed?: Yes Alcohol Intake: former Drug use: Never Substance use type: does not use Do you feel safe at home: Yes Do you feel safe in your relationship?: Yes Additional Social history: Lives with , son, and sick [id number] in [place], moved up from [place] in 2019. [place]. Exam Narrative Exam Narrative: Constitutional: Alert and oriented x3. Appears stated age. Normal body habitus. Head: Normocephalic, no trauma. Eyes: Pupils PERRL, Red reflex noted, EOM's intact. Eyelids symmetrical without lesions, discharge, or swelling. Chest: RRR, Normal S1, S2, distal pulses intact. Resp: Lungs clear to auscultation bilaterally, no wheezes, rales, or rhonchi. Abdomen: Soft, non-distended, Normoactive bowel sounds all 4 quads. Colostomy bag noted. Musculoskeletal: Normal gait, 5/5 strength to all four extremities. Skin: No suspicious rashes or lesions. Capillary refill less than 2 sec. Hematologic/Lymphatic: No ecchymosis, no lymphadenopathy. Course Vital Signs Vital signs: Vital Signs Temperature 37.3 C 02/21/23 16:38 Pulse 65 02/21/23 16:38 Respiratory Rate 16 02/21/23 16:38 Blood Pressure 164/57 H 02/21/23 16:38 Pulse Oximetry 94 02/21/23 16:38 Temperature 37.3 C 02/21/23 16:38 Temperature Source Skin 02/21/23 16:38 Pulse 65 02/21/23 16:38 Respiratory Rate 16 02/21/23 16:38 Blood Pressure 164/57 H 02/21/23 16:38 Blood Pressure Position Sitting 02/21/23 16:38 Pulse Oximetry 94 02/21/23 16:38 Oxygen Delivery Method Room Air 02/21/23 16:38 Oxygen Flow Rate 0 02/21/23 16:38 Pain Level 0 02/21/23 16:38
[2023-02-21 16:57] LABS: Bilirubin Negative (Negative); Blood Moderate (Negative); Clarity Sl Cloudy (Clear); Glucose >=1000 mg/dL (Negative); Ketones Negative (Negative); Leukocyte Esterase Trace (Negative); Nitrite Negative (Negative); Specific Gravity 1.015 (1.005-1.025)
[2023-02-21 17:08] LABS: Epithelial Cells Few HPF (Negative); WBC 20-50 HPF (0-5)
[2023-02-21 17:09] LABS: C & S Indicated? Yes; Casts Negative LPF (Negative); Crystals Negative HPF (Negative); Mucus Negative (Negative); Other Cells Few Transitional (Negative)
[2023-02-21 17:10] LABS: Bacteria Moderate HPF (Negative)
[2023-02-21] MEDS: levoFLOXacin 500 MG TAB PO ×2 (17:25)
== END 2023-02-21 17:30 | disposition home or self-care (01) ==
PROVIDERS: Emergency Provider Registered Nurse Emergency; PCP Nurse Practitioner Adult Health
DX: N30.01 Acute cystitis with hematuria (principal); I10 Essential (primary) hypertension; Z93.3 Colostomy status; Z86.16 Personal history of COVID-19; Z79.01 Long term (current) use of anticoagulants
CPT/HCPCS: 87077; 99283; 81003; 81015; 87086; 87186; 99284

== ENCOUNTER 2023-02-22 14:45 | Emergency (ER) | payer OTHER, SELFPAY ==
[2023-02-22 14:48] VITALS: BP 164/65; PULSE 63; RESP 16; TEMP 37.2; O2SAT 96
--- NOTE | 2023-02-22 15:56 | ED.GENADUL_ITS ---
Discharge Plan Discharge Details Chief Complaint: Urinary Primary Care Provider: Maryann Whitt ED Provider: Alexis Malone Home Meds and New Rx's Prescriptions: No Action carvedilol 3.125 mg tablet 6.25 mg PO BID venlafaxine 150 mg Capsule,Extended Release 24hr 150 mg PO DAILY spironolactone 25 mg Tablet 25 mg PO DAILY prazosin 5 mg Capsule 10 mg PO QHS pantoprazole 40 mg Tablet,Delayed Release (Dr/Ec) 40 mg PO DAILY metformin 1,000 mg Tablet 1,000 mg PO BID levothyroxine 200 mcg Tablet 200 mcg PO DAILY valsartan 40 mg Tablet 40 mg PO BID pregabalin 50 mg Capsule 50 mg PO BID acetaminophen [Tylenol] 325 mg Capsule 650 mg PO Q6H MDD 3000 PRN Eliquis 5 mg Tablet 5 mg PO BID Jardiance 25 mg Tablet 25 mg PO DAILY nitroglycerin 0.4 mg Tablet, Sublingual 0.4 mg sublingual Q5 MIN PRN X3 PRNQty: 30 0RF furosemide [Lasix] 20 mg Tablet 40 mg PO BID Qty: 0 0RF levofloxacin 500 mg tablet 500 mg PO DAILY 7 Days Qty: 7 0RF Rx Instructions: Take 1 tablet by mouth daily for the next 7 days. tamsulosin 0.4 mg Capsule 0.4 mg PO DAILY polyethylene glycol 3350 17 gram Powder In Packet 17 g PO DAILY Qty: 0 0RF Medical Decision Making Patient presents with a history of hematuria and large clots. According to nursing when the [place] was placed there was blood at the meatus. CBI was initiated without any hematuria. CBI stopped. Patient will be discharged home with instruction to continue his antibiotics and follow-up with PCP next week HPI General Date/Time Provider Initiated Documentation: 02/22/23 14:55 . HPI Narrative: 78-year-old gentleman presented to the emergency room with hematuria and urinary frequency. He was seen yesterday for similar reason but had significant less hematuria, diagnosed with cystitis and treated with antibiotics. He states that he has been peeing large amounts of clots. He does not have any urological problems in the past. States that he required a Ohara 3 months ago for what I think was a urinary retention. Has never seen urology. No fevers but he does endorse intermittent chills. No abdominal pain. Related Data Home Medications Medication Instructions Recorded Confirmed acetaminophen 325 mg capsule 650 mg PO Q6H PRN 11/08/22 02/21/23 (Tylenol) apixaban 5 mg tablet (Eliquis) 5 mg PO BID 11/08/22 02/21/23 empagliflozin 25 mg tablet 25 mg PO DAILY 11/08/22 02/21/23 (Jardiance) levothyroxine 200 mcg tablet 200 mcg PO DAILY 11/08/22 02/21/23 metformin 1,000 mg tablet 1,000 mg PO BID 11/08/22 02/21/23 pantoprazole 40 mg tablet,delayed 40 mg PO DAILY 11/08/22 02/21/23 release prazosin 5 mg capsule 10 mg PO QHS 11/08/22 02/21/23 pregabalin 50 mg capsule 50 mg PO BID 11/08/22 02/21/23 spironolactone 25 mg tablet 25 mg PO DAILY 11/08/22 02/21/23 valsartan 40 mg tablet 40 mg PO BID 11/08/22 02/21/23 venlafaxine 150 mg 150 mg PO DAILY 11/08/22 02/21/23 capsule,extended release 24 hr tamsulosin 0.4 mg capsule 0.4 mg PO DAILY 11/29/22 02/21/23 carvedilol 3.125 mg tablet 6.25 mg PO BID 12/27/22 02/21/23 polyethylene glycol 3350 17 gram 17 g PO DAILY #0 ea 01/28/23 02/21/23 oral powder packet furosemide 20 mg tablet (Lasix) 40 mg PO BID #0 tabs 02/10/23 02/21/23 nitroglycerin 0.4 mg sublingual 0.4 mg sublingual Q5 MIN PRN X3 02/10/23 02/21/23 tablet PRN #30 tabs levofloxacin 500 mg tablet 500 mg PO DAILY uti 7 days #7 tabs 02/21/23 Previous Rx's Medication Instructions Recorded polyethylene glycol 3350 17 gram 17 g PO DAILY #0 ea 01/28/23 oral powder packet furosemide 20 mg tablet (Lasix) 40 mg PO BID #0 tabs 02/10/23 nitroglycerin 0.4 mg sublingual 0.4 mg sublingual Q5 MIN PRN X3 02/10/23 tablet PRN #30 tabs levofloxacin 500 mg tablet 500 mg PO DAILY uti 7 days #7 tabs 02/21/23 Allergies Allergy/AdvReac Type Severity Reaction Status Date / Time Penicillins Allergy Mild Itching Unverified 02/21/23 16:48 morphine AdvReac Severe vomiting Unverified 02/21/23 16:48 mussels AdvReac Severe vomiting Unverified 02/21/23 16:48 General Stated Complaint: Urinary ANNA: 3 Review of Systems Narrative: 10 point review of systems negative unless otherwise stated in the HPI. 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, Dx [facility] as per pt History of colon cancer Palliative care encounter Followed by [facility] Portal hypertension Recurrent intestinal obstruction Scleral icterus Surgical History Colostomy in place H/O left hemicolectomy S/P TIPS (transjugular intrahepatic portosystemic shunt) Social History Smoking/Tobacco Use Status: Former Tobacco Use Smoking risk assessment performed?: Yes Alcohol Intake: former Drug use: Never Substance use type: does not use Do you feel safe at home: Yes Do you feel safe in your relationship?: Yes Additional Social history: Lives with , son, and sick [id number] in [place], moved up from [place] in 2019. [place]. Exam Narrative Exam Narrative: General: A,A Ox3, Calm, no apparent distress, well developed, pleasant and cooperative Head Size/Shape: normocephalic, atraumatic Eyes Pupils: PERRLA Extraocular Mobility: intact and symmetrical Conjunctiva: non-injected, anicteric, no discharge Ears, Nose, Throat Nares: patent bilaterally Oral Cavity: moist Neck: no masses, no crepitus Lymph Nodes: no cervical lymphadenopathy Respiratory Respiratory Effort: no dyspnea Cardiovascular Normal cap refill Abdomen Inspection and Palpation: soft, non-tender, non-distended, no hepatosplenomegaly, colostomy site., Multiple surgical scars Joints, Bones, and Muscles: no deformities Extremities: warm and well-perfused, no cyanosis, capillary refill <2 seconds Skin Skin Inspection: no rash, no lesions, no bruising Neurological Motor: normal tone, normal strength, moving all extremities equally Psychiatric: good insight, good judgement, normal mood and affect Course Vital Signs Vital signs: Vital Signs Temperature 37.2 C 02/22/23 14:48 Pulse 63 02/22/23 14:48 Respiratory Rate 16 02/22/23 14:48 Blood Pressure 164/65 H 02/22/23 14:48 Pulse Oximetry 96 02/22/23 14:48 Temperature 37.2 C 02/22/23 14:48 Temperature Source Skin 02/22/23 14:48 Pulse 63 02/22/23 14:48 Respiratory Rate 16 02/22/23 14:48 Blood Pressure 164/65 H 02/22/23 14:48 Blood Pressure Position Sitting 02/22/23 14:48 Pulse Oximetry 96 02/22/23 14:48 Oxygen Delivery Method Room Air 02/22/23 14:48 Oxygen Flow Rate 0 02/22/23 14:48 Pain Level 0 02/22/23 14:48
--- NOTE | 2023-02-22 17:18 | NUR.NOTE ---
Nursing Note: [id number] mL drained out of catheter, irrigation flowing well. Light yellow. No clots noted at this time.
[2023-02-22 18:02] VITALS: BP 174/69; PULSE 68; RESP 18; O2SAT 96
--- NOTE | 2023-02-22 18:37 | NUR.NOTE ---
Nursing Note: Referral faxed to [facility] for hematuria/collier placed/ next week.
--- NOTE | 2023-02-22 18:44 | NUR.NOTE ---
Nursing Note:As patient was getting ready to leave, pt started bleeding from the penis. MD was made aware of this and then gave orders for collier to be placed. Patient will go home with collier. Urology consult request has been placed. Pt is aware that this collier is to remain in place.
--- NOTE | 2023-02-22 18:58 | NUR.NOTE ---
Nursing Note: Patient sent home in paper scrubs, own clothes soiled with blood. Patient educated by Chris on how to use leg bag. Sent to waiting room to wait for his post discharge.
== END 2023-02-22 18:59 | disposition home or self-care (01) ==
PROVIDERS: Emergency Provider Emergency Medicine; PCP Nurse Practitioner Adult Health
DX: N30.01 Acute cystitis with hematuria; N36.9 Urethral disorder, unspecified
CPT/HCPCS: 99281; 99282

== ENCOUNTER 2023-03-08 03:22 | Emergency (ER) | payer OTHER, SELFPAY ==
[2023-03-08] VITALS (40 sets, daily range): BP systolic 144–180; BP diastolic 51–76; PULSE 64–86; RESP 13–20; TEMP 36.4; O2SAT 90–94
--- NOTE | 2023-03-08 03:30 | RT.EKG_ITS ---
APPROVED REPORT Exam: Resting ECG Reason for Exam: upper gastric pain Patient Location: E HR:80 bpm ECG Measurements Heart Rate [address] 218 P -42 QRSd 112 QRS 0 QT 455 T [id number] QTc 494 Conclusion Sinus rhythm...normal P axis, V-rate 60- 99 Multiform ventricular premature complexes...short R-R, variable morphology Borderline prolonged CT interval...CT >212, V-rate 50- 90 Incomplete left bundle branch block...QRSd>110mS, terminal axis(-90,-1) sinus rhtyhm, normal axis, PVCs
--- NOTE | 2023-03-08 03:30 | DI.CT_ITS ---
Exam(s) CT ABDOMEN PELVIS W EXAM: CT ABDOMEN PELVIS W CLINICAL HISTORY: abd pain, hx of bowel resection, ostomy. TECHNIQUE: Imaging Protocol: Axial computed tomography images with coronal and sagittal reformatted images were created and reviewed CONTRAST MATERIAL: Intravenous: Omnipaque 350 Contrast volume:100 ml Oral: no COMPARISON: CT CT ABDOMEN PELVIS W from 01/24/2023 FINDINGS: ABDOMEN: Lung Bases: Dependent changes. Heart is enlarged. Liver: Tips. Cirrhotic appearing liver. No measurable mass. Gallbladder and biliary tract: No radiodense calculus or dilation. Pancreas: Normal density, no abnormal calcifications or inflammatory process. Spleen: Markedly enlarged. Kidneys: Normal size, contour and axis. No radiodense stones or obstructive uropathy. No suspicious m asses seen. Adrenal glands: No masses seen. Abdominal Aorta: Abdominal portion non-dilated. Soft tissues: Left lower quadrant colostomy. No hernia. PELVIS: Bladder: No gross wall thickening. No calculi.No focal mass. Bowel: Multiple bowel anastomoses. Mildly dilated loops of small bowel with thickened wall centrally . Transition point right lower quadrant near anastomosis. Resection of sigmoid colon and rectum. C olon Not abnormally dilated. Peritoneal cavity: No ascites or abscess collection. Bones: Severe degenerative changes. Reproductive organs: Within normal limits. Lymph nodes: Unremarkable. Impression: Findings consistent with partial small bowel obstruction with transition point in the right lower mallory drant, near an area of a prior anastomosis.. RADIATION DOSE DELIVERED: 1,124.59mGy.cm Total DLP DATA REPOSITORY: All CT scans at this facility are submitted to the National Radiology Data Registry (NRDR) Dose Index Registry (DIR) with the [employer] (ACR). RADIATION OPTIMIZATION: All CT scans at this facility use at least one of these dose optimization te chniques: automated exposure control; mA and/or kV adjustment per patient size (includes targeted exa ms where dose is matched to clinical indication); or iterative reconstruction.
--- NOTE | 2023-03-08 03:39 | ED.GENADUL_ITS ---
Discharge Plan Disposition Patient Disposition: Admit to [facility] Condition: Stable Discharge Details Chief Complaint: Abd Prob Clinical Impression: Small bowel obstruction Primary Care Provider: Maryann Whitt ED Provider: Aftab Esparza Home Meds and New Rx's Prescriptions: No Action carvedilol 3.125 mg tablet 6.25 mg PO BID venlafaxine 150 mg Capsule,Extended Release 24hr 150 mg PO DAILY spironolactone 25 mg Tablet 25 mg PO DAILY prazosin 5 mg Capsule 10 mg PO QHS pantoprazole 40 mg Tablet,Delayed Release (Dr/Ec) 40 mg PO DAILY metformin 1,000 mg Tablet 1,000 mg PO BID levothyroxine 200 mcg Tablet 200 mcg PO DAILY valsartan 40 mg Tablet 40 mg PO BID pregabalin 50 mg Capsule 50 mg PO BID acetaminophen [Tylenol] 325 mg Capsule 650 mg PO Q6H MDD 3000 PRN Eliquis 5 mg Tablet 5 mg PO BID Jardiance 25 mg Tablet 25 mg PO DAILY nitroglycerin 0.4 mg Tablet, Sublingual 0.4 mg sublingual Q5 MIN PRN X3 PRNQty: 30 0RF furosemide [Lasix] 20 mg Tablet 40 mg PO BID Qty: 0 0RF tamsulosin 0.4 mg Capsule 0.4 mg PO DAILY polyethylene glycol 3350 17 gram Powder In Packet 17 g PO DAILY Qty: 0 0RF Medical Decision Making 78-year-old male history of remote colon cancer status post resection, ostomy, presents with abdominal pain nausea decreased ostomy output. Mildly distended nonperitoneal. Afebrile nontoxic however appears uncomfortable. Must consider bowel obstruction versus enteritis versus enterocolitis versus colitis versus less likely atypical ACS versus less likely aortic pathology. Screening labs imaging fluids analgesia antiemetics close reassessment 6: 20 evidence of small bowel obstruction. Will place NG tube. Have discussed case with general surgery who will admit HPI General Date/Time Provider Initiated Documentation: 03/08/23 03:30 . HPI Narrative: 78-year-old male history of colon cancer status post bowel resection, ostomy, presents with abdominal pain nausea and decreased stomal output. Had good output earlier today which has slowed down. Has not vomited but feels as if he needs to. No chest pain or shortness of breath. Related Data Home Medications Medication Instructions Recorded Confirmed acetaminophen 325 mg capsule 650 mg PO Q6H PRN 11/08/22 02/21/23 (Tylenol) apixaban 5 mg tablet (Eliquis) 5 mg PO BID 11/08/22 02/21/23 empagliflozin 25 mg tablet 25 mg PO DAILY 11/08/22 02/21/23 (Jardiance) levothyroxine 200 mcg tablet 200 mcg PO DAILY 11/08/22 02/21/23 metformin 1,000 mg tablet 1,000 mg PO BID 11/08/22 02/21/23 pantoprazole 40 mg tablet,delayed 40 mg PO DAILY 11/08/22 02/21/23 release prazosin 5 mg capsule 10 mg PO QHS 11/08/22 02/21/23 pregabalin 50 mg capsule 50 mg PO BID 11/08/22 02/21/23 spironolactone 25 mg tablet 25 mg PO DAILY 11/08/22 02/21/23 valsartan 40 mg tablet 40 mg PO BID 11/08/22 02/21/23 venlafaxine 150 mg 150 mg PO DAILY 11/08/22 02/21/23 capsule,extended release 24 hr tamsulosin 0.4 mg capsule 0.4 mg PO DAILY 11/29/22 02/21/23 carvedilol 3.125 mg tablet 6.25 mg PO BID 12/27/22 02/21/23 polyethylene glycol 3350 17 gram 17 g PO DAILY #0 ea 01/28/23 02/21/23 oral powder packet furosemide 20 mg tablet (Lasix) 40 mg PO BID #0 tabs 02/10/23 02/21/23 nitroglycerin 0.4 mg sublingual 0.4 mg sublingual Q5 MIN PRN X3 02/10/23 02/21/23 tablet PRN #30 tabs Previous Rx's Medication Instructions Recorded polyethylene glycol 3350 17 gram 17 g PO DAILY #0 ea 01/28/23 oral powder packet furosemide 20 mg tablet (Lasix) 40 mg PO BID #0 tabs 02/10/23 nitroglycerin 0.4 mg sublingual 0.4 mg sublingual Q5 MIN PRN X3 02/10/23 tablet PRN #30 tabs Allergies Allergy/AdvReac Type Severity Reaction Status Date / Time Penicillins Allergy Mild Itching Unverified 03/08/23 05:46 morphine AdvReac Severe vomiting Unverified 03/08/23 05:46 rinku AdvReac Severe vomiting Unverified 03/08/23 05:46 General Stated Complaint: Abd Prob ANNA: 3 Review of Systems Narrative: Review of Systems Constitutional: negative Eyes: negative ENT: negative Cardiovascular: negative Respiratory: negative Gastrointestinal: Abdominal pain, nausea : negative Musculoskeletal: negative Skin: negative Neurologic: negative Psych: negative PFSH All Active Problems (Updated 03/08/23 @ 06:21 by Aftab Esparza MD) Acute UTI (Acute) Hematuria due to acute cystitis (Acute) Urethral bleeding (Acute) Small bowel obstruction (Acute) Medication monitoring encounter (Acute) ANETTE (obstructive sleep apnea) (Chronic) Chest pain (Acute) CHF exacerbation (Acute) Depression (Chronic) 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, Dx [facility] as per pt History of colon cancer Palliative care encounter Followed by [facility] Portal hypertension Recurrent intestinal obstruction Scleral icterus Surgical History Colostomy in place H/O left hemicolectomy S/P TIPS (transjugular intrahepatic portosystemic shunt) Social History Smoking/Tobacco Use Status: Former Tobacco Use Smoking risk assessment performed?: Yes Alcohol Intake: former Drug use: Never Substance use type: does not use Do you feel safe at home: Yes Do you feel safe in your relationship?: Yes Additional Social history: Lives with , son, and sick [id number] in [place], moved up from [place] in 2019. [place] . Exam Narrative Exam Narrative: Physical Examination General: alert, awake, cooperative, appears moderately uncomfortable HEENT: normocephalic, atraumatic; PERRL, EOM intact, conjunctiva normal; no nasal discharge; moist mucous membranes, oral and pharyngeal mucosa normal, tolerating secretions Neck: supple, trachea midline; full ROM Chest: normal to inspection Respiratory: normal respiratory effort, speaking in full sentences, clear to auscultation, no wheezing, rales or rhonchi Cardiac: regular rate, regular rhythm, S1S2 intact, no murmurs rubs or gallops GI: abdomen soft, mild distention, nonperitoneal Skin: no lesions, rashes or trauma appreciated Neuro: AAOx3, normal speech, moving all extremities Psych: Appropriate mood and affect Course Vital Signs Vital signs: Vital Signs Temperature 36.4 C L 03/08/23 03:28 Pulse 81 03/08/23 03:28 Respiratory Rate 18 03/08/23 03:28 Blood Pressure 180/76 H 03/08/23 03:28 Pulse Oximetry 94 03/08/23 03:28 Temperature 36.4 C L 03/08/23 03:28 Temperature Source Oral 03/08/23 03:28 Pulse 81 03/08/23 03:28 Respiratory Rate 18 03/08/23 03:28 Respiratory Effort Normal 03/08/23 03:31 Blood Pressure 180/76 H 03/08/23 03:28 Blood Pressure Position Supine 03/08/23 03:28 Pulse Oximetry 94 03/08/23 03:28 Oxygen Delivery Method Room Air 03/08/23 03:28 Oxygen Flow Rate 0 03/08/23 03:28 Pain Level 9 03/08/23 03:28
[2023-03-08 03:54] LABS: Abs Immature Grans 0.01 10^3/uL (0.0-0.06); Absolute Basophil Count 0.02 10^3/uL (0.0-0.2); Absolute Eosinophil Count 0.21 10^3/uL (0.0-0.7); Absolute Monocyte Count 0.47 10^3/uL (0.1-0.8); Absolute Neutrophil Count 2.71 10^3/uL (1.2-6.7); Basophils % 0.5; Eosinophils % 5.1; HCT 33.7 % (40.0-50.0); HGB 10.9 g/dL (13.5-17.5); Immature Grans % 0.2; MCH 26.1 pg (27.0-33.0); MCHC 32.3 % (32.0-36.0); MCV 81 fL (80-95); MPV 10.4 fL (8.0-11.0); Monocytes % 11.4; Neutrophils % 65.8; RBC 4.18 10^6/uL (4.36-5.78); RDW 17.2 % (11.8-14.1); RDW-SD 50.1 fL; WBC 4.12 10^3/uL (4.4-10.8)
[2023-03-08 03:55] LABS: Platelet Count 88 10^3/uL (130-400)
[2023-03-08] MEDS: Normal Saline 500 ML 1000 ML IV (04:02)
[2023-03-08] MEDS: Ondansetron 4 MG/2 ML VIAL IVP (04:05)
[2023-03-08 04:07] LABS: ALT 22 U/L (16-63); AST 34 U/L (15-37); Albumin 2.8 g/dL (3.4-5.0); Alkaline Phosphatase 139 U/L (46-116); Anion Gap 8.9 mmol/L (3-11); BUN 10 mg/dL (7-18); Bilirubin, Total 1.5 mg/dL (0.2-1.0); CO2 25.1 mmol/L (21.0-32.0); CREATININE 0.9 mg/dL (0.70-1.30); Chloride 109 mmol/L (98-107); Estimated GFR 88.51 (mL/min/1.73m2); Glucose 185 mg/dL (74-106); Lipase 79 U/L (16-77); Potassium 3.5 mmol/L (3.5-5.1); Sodium 143 mmol/L (136-145); Total Protein 6.7 g/dL (6.4-8.2)
[2023-03-08] MEDS: Ketorolac 15 MG/ML VIAL IVP (04:08)
[2023-03-08] MEDS: fentaNYL 100 MCG/2 ML VIAL 25 MCG IVP ×3 (04:16→07:00)
[2023-03-08] MEDS: Omnipaque 350 MG/ML 100 ML BTL IJ (04:41)
[2023-03-08] MEDS: Normal Saline - Diluent 50 ML VIAL IJ (04:42)
[2023-03-08 04:55] LABS: Troponin I 96 ng/L (<or=60)
--- NOTE | 2023-03-08 05:47 | DI.VRAD_ITS ---
PROCEDURE INFORMATION: Exam: CT Abdomen And Pelvis With Contrast Exam date and time: 03/08/2023 4:42 AM Age: 78 years old Clinical indication: Abdominal pain; Generalized; Prior surgery; Surgery date: 6+ months; Surgery type: HX of bowel resection, ostomy; Additional info: Abd pain, HX of bowel resection, ostomy TECHNIQUE: Imaging protocol: Computed tomography of the abdomen and pelvis with contrast. Radiation optimization: All CT scans at this facility use at least one of these dose optimization techniques: automated exposure control; mA and/or kV adjustment per patient size (includes targeted exams where dose is matched to clinical indication); or iterative reconstruction. Contrast material: OMNI 350; Contrast volume: 100 ml; Contrast route: INTRAVENOUS (IV); COMPARISON: 1. CT ABDOMEN PELVIS W 01/24/2023 4:[address] ABDOMEN PELVIS W 01/23/2023 5:18 PM FINDINGS: Lungs: Dependent hypoventilatory changes. Trace right pleural effusion. Liver: Morphologic changes of cirrhosis are again noted in the liver. There is an incidental stable 0.8 cm focus of hypoattenuation in the left hepatic lobe, too small to characterize. There is a TIPS shunt in place, as seen previously. Gallbladder and bile ducts: Unremarkable. No calcified gallstones. No intrahepatic or extrahepatic biliary ductal dilation. Pancreas: Unremarkable. Spleen: The spleen is again noted to be enlarged, measuring up to 15.3 cm craniocaudal (previously 14.4 cm). Moderate atherosclerotic vascular calcifications. Normal caliber abdominal aorta. Adrenal glands: Unremarkable. Kidneys and ureters: No hydronephrosis or hydroureter. Normal and symmetric renal enhancement. No suspicious renal masses. An incidental small focus of cortical hypoattenuation in the left upper pole measures less than 1 cm, too small to characterize. Stomach and bowel: The stomach is mildly distended. There are multiple matted and mildly dilated loops of small bowel in the central abdomen and upper pelvis with air-fluid levels, some with fecalization of their contents consistent with stasis. An enteroenteric anastomosis is again noted in a patulous small bowel loop in the ventral pelvis near midline. There is a transition point in small bowel caliber in the right lower quadrant in the vicinity of this anastomosis. Findings are consistent with a low-grade small bowel obstruction. There are postsurgical changes in the colon from a partial right colectomy with an ileocolic anastomosis in addition to a partial distal colectomy with a descending colostomy. The large bowel is normal in caliber. Appendix: Surgically absent. Intraperitoneal space: Trace perihepatic ascites. No organized fluid collection. No pneumoperitoneum. Retroperitoneal space: Unremarkable. No retroperitoneal collection or mass. Vasculature: Multiple small collateral vessels are noted in the upper abdomen. Lymph nodes: No pathologically enlarged lymph nodes. Urinary bladder: Nondilated. No gross abnormality. Reproductive: Unremarkable as visualized. Bones/joints: Degenerative changes. No suspicious osseous lesions. Soft tissues: Extensive postoperative scarring in the ventral abdominal wall. Postsurgical changes from previous herniorrhaphy with mesh in the midline. Left lower quadrant colostomy. IMPRESSION: 1. Low-grade small bowel obstruction with a transition point in the right lower quadrant. 2. Cirrhosis with stigmata of portal hypertension. 3. Additional stable chronic and incidental findings are discussed in the body of the report. Dictated and Authenticated by: Марина Aragon MD. Ordering:PPAULINO Ugalde MD
[2023-03-08] MEDS: Benzocaine 20% 60 ML CAN (06:30)
[2023-03-08] MEDS: Normal Saline Flush 10 ML SYR IVP ×2 (07:00→07:49)
[2023-03-08 07:22] LABS: Troponin I 77 ng/L (<or=60)
[2023-03-08] MEDS: Pantoprazole 40 MG VIAL IVP (07:48)
[2023-03-08] MEDS: Lactated Ringers 1,000 ML 75 ML IV (08:29)
--- NOTE | 2023-03-08 08:53 | W.EDPROG ---
Date of service: 03/08/23 Time of Service: 08:53 Medical Decision Making Patient has been accepted as transfer to [place] pending negative COVID swab. Accepting physician Dr. Najera. Patient stable and agrees to transfer. Discharge Plan Disposition Patient Disposition: Transfer-Acute Inpatient Care Specific Acute Inpt Facility: Other Condition: Stable Discharge Details Clinical Impression: Small bowel obstruction Primary Care Provider: Maryann Whitt ED Provider: Aftab Esparza Home Meds and New Rx's Prescriptions: No Action carvedilol 3.125 mg tablet 6.25 mg PO BID venlafaxine 150 mg Capsule,Extended Release 24hr 150 mg PO DAILY spironolactone 25 mg Tablet 25 mg PO DAILY prazosin 5 mg Capsule 10 mg PO QHS pantoprazole 40 mg Tablet,Delayed Release (Dr/Ec) 40 mg PO DAILY metformin 1,000 mg Tablet 1,000 mg PO BID levothyroxine 200 mcg Tablet 200 mcg PO DAILY valsartan 40 mg Tablet 40 mg PO BID pregabalin 50 mg Capsule 50 mg PO BID acetaminophen [Tylenol] 325 mg Capsule 650 mg PO Q6H MDD 3000 PRN Eliquis 5 mg Tablet 5 mg PO BID Jardiance 25 mg Tablet 25 mg PO DAILY nitroglycerin 0.4 mg Tablet, Sublingual 0.4 mg sublingual Q5 MIN PRN X3 PRNQty: 30 0RF furosemide [Lasix] 20 mg Tablet 40 mg PO BID Qty: 0 0RF tamsulosin 0.4 mg Capsule 0.4 mg PO DAILY polyethylene glycol 3350 17 gram Powder In Packet 17 g PO DAILY Qty: 0 0RF carvedilol 3.125 mg tablet 3.125 mg PO BID Patient Comments: TAKE 1 TABLET (3.125MG) BY MOUTH TWICE DAILY ferrous sulfate 325 mg (65 mg iron) Tablet 325 mg PO DAILY
--- NOTE | 2023-03-08 09:16 | SCONE_ITS ---
Date of service: 03/08/23 Time of Service: 09:16 Assessment and Plan Assessment and plan (1) Small bowel obstruction: Status: Acute Assessment and plan: Mr Orellana is a pleasant 78-year-old gentleman who was seen in the emergency department for abdominal pain. His work-up revealed a early small bowel obstruction. He has not passed any gas into his ostomy bag that he is aware of for at least 24 hours. He has a very small amount of stool in his ostomy bag which she states is from the day before. His abdomen is soft. He has pain in the periumbilical area. NG tube was placed with minimal output. Unfortunately we do not have beds at our hospital today. [facility]. Appreciate the emergency department physician [facility] have a bed available and have accepted him in transfer. I discussed this with the patient. History of Present Illness Narrative: Mr. Orellana is a pleasant 78-year-old gentleman with a history of CHF, depression, [id number] diabetes, hypertension and a history of colon cancer status postresection and ostomy who comes into the emergency department with abdominal pain, nausea and vomiting. Work-up in the emergency department showed a white count of 4.12 hemoglobin of 10.9 hematocrit of 33.7 platelets of 88, CM P was unremarkable except for a glucose of 185 a total bili of 1.5 and alk phos of 139. His troponin's were checked and he had 1 that was 96 [address] scan was done which showed decompressed large intestine and a loop of small intestine that was slightly dilated. I reviewed the CT scan myself. I could not see any abdominal hernias. The patient is afebrile he is not tachycardic. He did have an NG tube placed in the emergency department and had minimal output at 20 cc. Consults Consult date: 03/08/23 Requesting physician: Aftab Esparza Review of Systems Constitutional Constitutional: Denies fatigue, Denies fever(s), Denies headache(s) and Denies weight loss Eyes Eyes: Denies change in vision ENT Ears, Nose, Mouth, and Throat: Denies headache(s) Cardiovascular Cardiovascular: Denies chest pain, Denies chest pain at rest, Denies irregular heart rhythm, Denies palpitations and Denies dyspnea Respiratory Respiratory: Denies cough and Denies dyspnea Gastrointestinal Gastrointestinal: Reports as per HPI Genitourinary Genitourinary: Reports system reviewed and no additional complaints, except as documented Musculoskeletal Musculoskeletal: Reports system reviewed and no additional complaints, except as documented Integumentary/Breasts Skin/Breast: Reports system reviewed and no additional complaints, except as documented Neurologic Neurologic: Reports system reviewed and no additional complaints, except as documented and Denies headache(s) Psychiatric Psychiatric: Reports system reviewed and no additional complaints, except as documented Endocrine Endocrine: Reports system reviewed and no additional complaints, except as documented, Denies fatigue and Denies palpitations Hematologic/Lymphatic Hematologic/Lymphatic: Reports system reviewed and no additional complaints, except as documented PFSH All Active Problems Acute UTI (Acute) Hematuria due to acute cystitis (Acute) Urethral bleeding (Acute) Small bowel obstruction (Acute) Medication monitoring encounter (Acute) ANETTE (obstructive sleep apnea) (Chronic) Chest pain (Acute) CHF exacerbation (Acute) Depression (Chronic) 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, Dx [facility] as per pt History of colon cancer Palliative care encounter Followed by [facility] Portal hypertension Recurrent intestinal obstruction Scleral icterus Surgical History Colostomy in place H/O left hemicolectomy S/P TIPS (transjugular intrahepatic portosystemic shunt) Social History Smoking/Tobacco Use Status: Former Tobacco Use Smoking risk assessment performed?: Yes Alcohol Intake: former Drug use: Never Substance use type: does not use Do you feel safe at home: Yes Do you feel safe in your relationship?: Yes Additional Social history: Lives with , son, and sick [id number] in [place], moved up from [place] in 2019. [place]. Exam Const General: cooperative, comfortable and no acute distress Nutritional Appearance: overweight Orientation: alert and oriented x3 HENMT Head: normocephalic and atraumatic Resp Effort & Inspection: normal respiratory effort Auscultation: clear to auscultation bilaterally Cardio Rate: regular rate Rhythm: regular rhythm Heart Sounds: no gallops, no murmurs and no rubs GI Inspection: scar (well healed midline scar) Palpation: soft, tender (periumbilical pain) and other (ostomy in place with small amount of soft stool) Auscultation: hypoactive bowel sounds Results Last Vital Signs Temp 97.5 F L 03/08/23 03:28 Pulse 65 03/08/23 09:00 Resp 15 03/08/23 09:00 BP 160/54 H 03/08/23 09:00 Pulse Ox 94 03/08/23 09:00 Labs 03/08/23 03:45 03/08/23 03:45 Labs: Laboratory Results - last 24 hr 03/08/23 03/08/23 03/08/23 03:45 03:45 03:45 WBC 4.12 L RBC 4.18 L Hgb 10.9 L Hct 33.7 L MCV 81 MCH 26.1 L MCHC 32.3 RDW 17.2 H Plt Count 88 L MPV 10.4 Immature Gran % 0.2 Neutrophils % 65.8 Lymphocytes % 17.0 Monocytes % 11.4 Eosinophils % 5.1 Basophils % 0.5 Nucleated RBC % 0.0 Absolute Neutrophils 2.71 Absolute Lymphocytes 0.70 L Absolute Monocytes 0.47 Absolute Eosinophils 0.21 Absolute Basophils 0.02 Sodium 143 Potassium 3.5 Chloride 109 H Carbon Dioxide 25.1 Anion Gap 8.9 BUN 10 Creatinine 0.9 Est GFR (CKD-EPI 2020) 88.51 Glucose 185 H Calcium 9.0 Total Bilirubin 1.5 H AST 34 ALT 22 Alkaline Phosphatase 139 H Troponin I 96 H* Total Protein 6.7 Albumin 2.8 L Lipase 79 H 03/08/23 06:45 WBC RBC Hgb Hct MCV MCH MCHC RDW Plt Count MPV Immature Gran % Neutrophils % Lymphocytes % Monocytes % Eosinophils % Basophils % Nucleated RBC % Absolute Neutrophils Absolute Lymphocytes Absolute Monocytes Absolute Eosinophils Absolute Basophils Sodium Potassium Chloride Carbon Dioxide Anion Gap BUN Creatinine Est GFR (CKD-EPI 2020) Glucose Calcium Total Bilirubin AST ALT Alkaline Phosphatase Troponin I 77 H* Total Protein Albumin Lipase Imaging Abdomen CT scan report/results: report reviewed and image reviewed CT scan - pelvis: report reviewed and image reviewed
[2023-03-08 09:47] LABS: COVID-19 PCR Negative (Negative); Influenza A PCR Negative (Negative); Influenza B PCR Negative (Negative); RSV PCR Negative (Negative)
[2023-03-08 09:49] LABS: Source Nasopharynx
== END 2023-03-08 10:26 | disposition short-term general hospital (02) ==
PROVIDERS: Emergency Provider Emergency Medicine; PCP Nurse Practitioner Adult Health
DX: K56.609 Unspecified intestinal obstruction, unspecified as to partial versus complete obstruction (principal); I50.9 Heart failure, unspecified; I11.0 Hypertensive heart disease with heart failure; E11.69 Type 2 diabetes mellitus with other specified complication; Z98.890 Other specified postprocedural states
CPT/HCPCS: 36416; 80053; 82962; 83690; 87637; 93005; 96361; 96374; 96375; 96376; 99285; 74177; 84484; 85025; 93010; J1885; J2405; J3010; J3490

== ENCOUNTER 2023-04-09 13:15 | Inpatient (IN) | payer OTHER, SELFPAY ==
--- NOTE | 2023-04-09 13:00 | RT.EKG_ITS ---
APPROVED REPORT Exam: Resting ECG Reason for Exam: Dizziness Patient Location: E HR:59 bpm ECG Measurements Heart Rate 59 AXIS LA 265 P 4 QRSd 111 QRS 25 QT 442 T 73 QTc 436 Conclusion Sinus bradycardia...rate< 60 Multiform ventricular premature complexes...short R-R, variable morphology Prolonged LA interval...LA >220, V-rate 50- 90 Incomplete left bundle branch block...QRSd>110mS, terminal axis(-90,-1) Consider anterior infarct...Q >30mS in V2-V5
[2023-04-09 13:17] VITALS: BP 130/56; PULSE 70; RESP 13; TEMP 36.8; O2SAT 94
--- NOTE | 2023-04-09 13:30 | DI.CT_ITS ---
Exam(s) CT HEAD WO EXAM: CT HEAD WO CLINICAL HISTORY: AMS. TECHNIQUE: Imaging Protocol: Axial computed tomography images with coronal and sagittal reformatted images were created and reviewed COMPARISON: CT CT HEAD WO from 11/08/2022 FINDINGS: There are no skull fractures. There are surgical defects in the medial patterson of both maxillary sinuse s again noted. Prominent mucosal thickening in the inferior aspects of both maxillary sinuses again noted, not associated with fluid levels. There is also been resection of numerous ethmoidal air cell s. No evidence of opacification at these levels. Sphenoid and frontal sinuses are clear. Mastoid a ir cells clear. There is no evidence of intracranial hemorrhage, mass effect, or shift of midline structures. There are no extra-axial fluid collections. The ventricles are not enlarged or shifted and there is no blo od within the ventricular system nor within the basal cisterns. There is moderate amount periventricular hypodensity again noted consistent chronic small vessel dise ase. There is also a nonhemorrhagic lacunar infarct in the left periventricular white matter, unchan ged from 11/08/2022 and consistent with lacunar infarct. No additional similar findings seen elsewhe re. IMPRESSION: No acute intracranial findings on this noninfused CT scan of the brain. Chronic small-vessel white matter ischemic changes as above including in a stab list unchanged lacuna r infarct in the left periventricular white matter. If clinically indicated follow-up MRI with diffusion imaging can be performed Evidence of prior paranasal sinus endoscopic surgery again evident. Chronic mucosal thickening in th e maxillary sinuses again noted. RADIATION DOSE DELIVERED: 833.8mGy.cm Total DLP DATA REPOSITORY: All CT scans at this facility are submitted to the National Radiology Data Registry (NRDR) Dose Index Registry (DIR) with the [employer] (A[employer]). RADIATION OPTIMIZATION: All CT scans at this facility use at least one of these dose optimization te chniques: automated exposure control; mA and/or kV adjustment per patient size (includes targeted exa ms where dose is matched to clinical indication); or iterative reconstruction.
[2023-04-09 13:36] VITALS: RESP 18
--- NOTE | 2023-04-09 13:45 | DI.RAD_ITS ---
Exam(s) XR CHEST 1V IN DI DEPT EXAM: XR CHEST 1V IN DI DEPT CLINICAL HISTORY: General Unwell. TECHNIQUE: 2D digital imaging was performed. COMPARISON: CR,XR XR CHEST 2V PA LATERAL from 02/09/2023 FINDINGS: Single AP portable view. Heart size is mildly enlarged. The mediastinum is not widened. Lungs are clear. No infiltrates nor obvious pleural effusions. No evidence of pulmonary edema, as was evident on 02/09/2023. IMPRESSION: Mild cardiomegaly. No acute pulmonary findings. DATA REPOSITORY: RADIATION DOSE DELIVERED:
--- NOTE | 2023-04-09 13:54 | W.ED.GENAD ---
Discharge Plan Discharge Details Chief Complaint: GenMedical Clinical Impression: Encephalopathy, hepatic, Confusion Primary Care Provider: Maryann Whitt ED Provider: Akira Hernandez Home Meds and New Rx's Prescriptions: No Action carvedilol 3.125 mg tablet 6.25 mg PO BID Patient Comments: duplicate venlafaxine 150 mg Capsule,Extended Release 24hr 150 mg PO DAILY spironolactone 25 mg Tablet 25 mg PO QAM prazosin 5 mg Capsule 10 mg PO QHS pantoprazole 40 mg Tablet,Delayed Release (Dr/Ec) 40 mg PO DAILY metformin 1,000 mg Tablet 1,000 mg PO BID levothyroxine 200 mcg Tablet 200 mcg PO QAM valsartan 40 mg Tablet 40 mg PO BID pregabalin 50 mg Capsule 50 mg PO BID acetaminophen [Tylenol] 325 mg Capsule 975 mg PO Q6H MDD 3000 PRN Eliquis 5 mg Tablet 5 mg PO BID Jardiance 25 mg Tablet 25 mg PO DAILY nitroglycerin 0.4 mg Tablet, Sublingual 0.4 mg sublingual Q5 MIN PRN X3 PRNQty: 30 0RF tamsulosin 0.4 mg Capsule 0.4 mg PO DAILY polyethylene glycol 3350 17 gram Powder In Packet 17 g PO DAILY Qty: 0 0RF carvedilol 3.125 mg tablet 3.125 mg PO BID Patient Comments: TAKE 1 TABLET (3.125MG) BY MOUTH TWICE DAILY Rx Instructions: with meals ferrous sulfate 325 mg (65 mg iron) Tablet 325 mg PO DAILY empagliflozin 25 mg Tablet 25 mg PO DAILY furosemide [Lasix] 20 mg tablet 20 mg PO QAM Medical Decision Making Patient appears lethargic and weak and slightly altered. He has no word finding difficulty no slurred speech. His thoughts are linear but he is forgetful or at least appears to be. Would consider dehydration/infectious etiology/central nervous system pathology. Thyroid dysfunction elevated ammonia sepsis. Broad differential. Patient is not hypotensive is not tachycardic he is not febrile and not hypoglycemic. CT scan of the brain plain film of the chest a broad suite of labs and will initiate some IV fluid hydration although given the patient's history of CHF will order 500 cc only. Medical Records Medical records reviewed: Yes I reviewed the patient's medical records. HPI General Date/Time Provider Initiated Documentation: 04/09/23 13:34. Limitations to Documentation: altered mental status. Information obtained by: patient and EMS. HPI Narrative: Patient's called EMS as the patient was having worsening generalized weakness and confusion. is not present in the ED to give a history. History obtained from EMS and the patient. Patient is obviously confused and states that he has been sick and weak since he had a blood infection states that this was diagnosed at the [facility] in [place]. Also states he had a recent PET scan for surveillance but states that he may have a reactive lymph node in the neck. Distant history of colorectal cancer greater than 40 years ago. Patient currently states that he does not undergo chemotherapy. Again patient is obviously confused and history is questionable Related Data Home Medications Medication Instructions Recorded Confirmed acetaminophen 325 mg capsule 975 mg PO Q6H PRN 11/08/22 04/09/23 (Tylenol) apixaban 5 mg tablet (Eliquis) 5 mg PO BID 11/08/22 04/09/23 empagliflozin 25 mg tablet 25 mg PO DAILY 11/08/22 04/09/23 (Jardiance) levothyroxine 200 mcg tablet 200 mcg PO QAM 11/08/22 04/09/23 metformin 1,000 mg tablet 1,000 mg PO BID 11/08/22 04/09/23 pantoprazole 40 mg tablet,delayed 40 mg PO DAILY 11/08/22 04/09/23 release prazosin 5 mg capsule 10 mg PO QHS 11/08/22 04/09/23 pregabalin 50 mg capsule 50 mg PO BID 11/08/22 04/09/23 spironolactone 25 mg tablet 25 mg PO QAM 11/08/22 04/09/23 valsartan 40 mg tablet 40 mg PO BID 11/08/22 04/09/23 venlafaxine 150 mg 150 mg PO DAILY 11/08/22 04/09/23 capsule,extended release 24 hr tamsulosin 0.4 mg capsule 0.4 mg PO DAILY 11/29/22 04/09/23 carvedilol 3.125 mg tablet 6.25 mg PO BID 12/27/22 03/08/23 polyethylene glycol 3350 17 gram 17 g PO DAILY #0 ea 01/28/23 04/09/23 oral powder packet nitroglycerin 0.4 mg sublingual 0.4 mg sublingual Q5 MIN PRN X3 02/10/23 04/09/23 tablet PRN #30 tabs carvedilol 3.125 mg tablet 3.125 mg PO BID 03/08/23 04/09/23 ferrous sulfate 325 mg (65 mg 325 mg PO DAILY 03/08/23 04/09/23 iron) tablet empagliflozin 25 mg tablet 25 mg PO DAILY 04/09/23 04/09/23 furosemide 20 mg tablet (Lasix) 20 mg PO QAM 04/09/23 04/09/23 Previous Rx's Medication Instructions Recorded polyethylene glycol 3350 17 gram 17 g PO DAILY #0 ea 01/28/23 oral powder packet nitroglycerin 0.4 mg sublingual 0.4 mg sublingual Q5 MIN PRN X3 02/10/23 tablet PRN #30 tabs Allergies Allergy/AdvReac Type Severity Reaction Status Date / Time Penicillins Allergy Mild Itching Unverified 04/09/23 13:24 morphine AdvReac Severe vomiting Unverified 04/09/23 13:24 mussels AdvReac Severe vomiting Unverified 04/09/23 13:24 General Stated Complaint: GenMedical ANNA: 3 Review of Systems Unobtainable due to mental status PFSH All Active Problems (Updated 04/09/23 @ 14:46 by Akira Hernandez MD) Encephalopathy, hepatic (Acute) Confusion (Acute) Medication monitoring encounter (Acute) ANETTE (obstructive sleep apnea) (Chronic) Chest pain (Acute) CHF exacerbation (Acute) Depression (Chronic) 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, Dx [facility] as per pt History of colon cancer Palliative care encounter Followed by [facility] Portal hypertension Recurrent intestinal obstruction Scleral icterus Surgical History Colostomy in place H/O left hemicolectomy S/P TIPS (transjugular intrahepatic portosystemic shunt) Social History Smoking/Tobacco Use Status: Former Tobacco Use Smoking risk assessment performed?: Yes Alcohol Intake: former Drug use: Never Substance use type: does not use Do you feel safe at home: Yes Do you feel safe in your relationship?: Yes Additional Social history: Lives with , son, and sick [id number] in [place], moved up from [place] in 2019. [place]. Exam Narrative Exam Narrative: GENERAL APPEARANCE NAD, slightly pale no, EYES lids/conjunctiva normal. EARS/NOSE/THROAT Mucous membranes moist, nares normal, lips/teeth normal uvula midline without oral pharyngeal erythema, exudate or swelling No lymphangitis/lymphedema. HEAD/NECK normocephalic atraumatic, no facial trauma, neck is supple. RESPIRATORY respiratory effort normal, speaks in full sentences, no tripod position, no accessory muscle use. CARDIAC Regular rate and rhythm, no edema. ABDOMINAL Soft, ND/NT. Colostomy bag left lower quadrant with soft stool no blood no excessive clear fluid MUSCLES/EXTREMITIES No abnormal range of motion, no swelling. SKIN Warm, pink and dry. NEUROLOGICAL Speech is clear and appropriate. Slightly lethargic l level of consciousness. Moves bilateral upper and lower extremities with no focalized weakness but again global weakness PSYCH flattened mood and affect. Judgement/competence is in appropriate Course Reevaluation(s) Time: 14:21 Reevaluation: Spoke with Maryann Del Angel at the [place] branch of the [place] associated with the [facility]. Phone #[phone] she reviewed his recent discharge summary for confusion thought to be hepatic encephalopathy. There is no positive blood culture in any event we will review the discharge summary from that time. She the PCP is requesting that if the patient requires a hospital admission to [place] [facility] [place]. We will initiate that process now as at times it can be lengthy and we will continue to evaluate the etiology of this patient's altered mental status. It seems to be a recurrent event as opposed to an acute onset. Time: 14:34 Reevaluation #2: Ammonia markedly elevated, at least a partial cause of patients encephalopthy Time: 14:44 Additional Reevaluation(s): Have initiated the transfer request to the [facility] as this patient regardless of what we find from this point out will not be a safe discharge home. Vital Signs Vital signs: Vital Signs Temperature 36.8 C 04/09/23 13:17 Pulse 70 04/09/23 13:17 Respiratory Rate 13 04/09/23 13:17 Blood Pressure 130/56 L 04/09/23 13:17 Pulse Oximetry 94 04/09/23 13:17 Temperature 36.8 C 04/09/23 13:17 Temperature Source Oral 04/09/23 13:17 Pulse 70 04/09/23 13:17 Respiratory Rate 18 04/09/23 13:36 Respiratory Effort Normal 04/09/23 13:36 Blood Pressure 130/56 L 04/09/23 13:17 Pulse Oximetry 94 04/09/23 13:17 Oxygen Delivery Method Room Air 04/09/23 13:17 Oxygen Flow Rate 0 04/09/23 13:17 Pain Level 0 04/09/23 13:17 Lab/Test Results Lab/Test Results: 04/09/23 13:34 Blood Blood Culture - Pending 04/09/23 13:34 Blood Blood Culture - Pending
[2023-04-09 14:12] LABS: Abs Immature Grans 0.01 10^3/uL (0.0-0.06); Absolute Basophil Count 0.03 10^3/uL (0.0-0.2); Absolute Eosinophil Count 0.19 10^3/uL (0.0-0.7); Absolute Lymphocyte Count 0.86 10^3/uL (1.2-3.4); Absolute Monocyte Count 0.49 10^3/uL (0.1-0.8); Absolute Neutrophil Count 3.68 10^3/uL (1.2-6.7); Basophils % 0.6; Eosinophils % 3.6; HCT 40.2 % (40.0-50.0); HGB 12.7 g/dL (13.5-17.5); Immature Grans % 0.2; Lymphocytes % 16.3; MCH 25.6 pg (27.0-33.0); MCHC 31.6 % (32.0-36.0); MCV 81 fL (80-95); MPV 10.7 fL (8.0-11.0); Monocytes % 9.3; Platelet Count 134 10^3/uL (130-400); RBC 4.97 10^6/uL (4.36-5.78); RDW 17.7 % (11.8-14.1); RDW-SD 51.5 fL; WBC 5.26 10^3/uL (4.4-10.8)
[2023-04-09 14:14] LABS: Lactate 4.1 mmol/L (0.6-1.4)
[2023-04-09 14:26] LABS: Ammonia 123 umol/L (11-32)
[2023-04-09 14:44] LABS: ALT 19 U/L (16-63); AST 32 U/L (15-37); Alkaline Phosphatase 147 U/L (46-116); Anion Gap 9.2 mmol/L (3-11); BUN 19 mg/dL (7-18); Bilirubin, Total 2.1 mg/dL (0.2-1.0); CO2 23.8 mmol/L (21.0-32.0); CREATININE 1.2 mg/dL (0.70-1.30); Calcium 8.9 mg/dL (8.5-10.1); Chloride 108 mmol/L (98-107); Estimated GFR 62.67 (mL/min/1.73m2); Glucose 128 mg/dL (74-106); Magnesium 1.7 mg/dL (1.8-2.4); NT-proBNP 853 pg/mL (<300); Sodium 141 mmol/L (136-145); Total Protein 7.2 g/dL (6.4-8.2); Troponin I < 50 ng/L (<or=60)
[2023-04-09] MEDS: Lactulose 20 GM/30 ML CUP 30 GM PO ×2 (14:47→20:19)
[2023-04-09 15:01] LABS: FREE T4 2.21 ng/dL (0.76-1.46)
[2023-04-09 15:31] LABS: Bilirubin Negative (Negative); Blood Moderate (Negative); Clarity Cloudy (Clear); Glucose >=1000 mg/dL (Negative); Ketones Negative (Negative); Leukocyte Esterase Moderate (Negative); Nitrite Positive (Negative); Specific Gravity 1.015 (1.005-1.025); pH 5.5 (5-8)
[2023-04-09] MEDS: MAGNESIUM SULFATE 2 GM/50 ML BAG IVPB (15:36)
[2023-04-09 15:39] LABS: Epithelial Cells Rare HPF (Negative); WBC 20-50 HPF (0-5)
[2023-04-09 15:40] LABS: Bacteria Many HPF (Negative); C & S Indicated? Yes; Casts Negative LPF (Negative); Crystals Negative HPF (Negative); Mucus Negative (Negative)
--- NOTE | 2023-04-09 16:11 | W.EDPROG ---
Date of service: 04/09/23 Time of Service: 16:11 Medical Decision Making Pt's ct head without acute findings also his xray shows no acute findings, ammonia elevated, is nitrite positive, will initiate levofloxacin as he has a pcn allergy. HE is alert and knows his name and where he is but is not sure of the time, no tremors on exam. No abdominal tenderness. Given elevated ammonia and weakness and falls he's had at home do not feel he can be d/c'd, ID has no beds and declines transfer, will discuss with hospitalist about admission. accepted by Dr. Burton, requested to stop levofloxacin and instead start ceftriaxone. Sign Out Sign Out Data: Sign Out Comment: [facility] possible [facility]. DX so far Hepatic encephalopathy. Last updated by Akira Hernandez MD at 04/09/23 14:55 Discharge Plan Disposition Patient Disposition: Admit to [facility] Condition: Poor Discharge Details Clinical Impression: Encephalopathy, hepatic, Confusion Primary Care Provider: Maryann Whitt ED Provider: Kevin Morrissey [place] Meds and New Rx's Prescriptions: No Action carvedilol 3.125 mg tablet 6.25 mg PO BID Patient Comments: duplicate venlafaxine 150 mg Capsule,Extended Release 24hr 150 mg PO DAILY spironolactone 25 mg Tablet 25 mg PO QAM prazosin 5 mg Capsule 10 mg PO QHS pantoprazole 40 mg Tablet,Delayed Release (Dr/Ec) 40 mg PO DAILY metformin 1,000 mg Tablet 1,000 mg PO BID levothyroxine 200 mcg Tablet 200 mcg PO QAM valsartan 40 mg Tablet 40 mg PO BID pregabalin 50 mg Capsule 50 mg PO BID acetaminophen [Tylenol] 325 mg Capsule 975 mg PO Q6H MDD 3000 PRN Eliquis 5 mg Tablet 5 mg PO BID Jardiance 25 mg Tablet 25 mg PO DAILY nitroglycerin 0.4 mg Tablet, Sublingual 0.4 mg sublingual Q5 MIN PRN X3 PRNQty: 30 0RF tamsulosin 0.4 mg Capsule 0.4 mg PO DAILY polyethylene glycol 3350 17 gram Powder In Packet 17 g PO DAILY Qty: 0 0RF carvedilol 3.125 mg tablet 3.125 mg PO BID Patient Comments: TAKE 1 TABLET (3.125MG) BY MOUTH TWICE DAILY Rx Instructions: with meals ferrous sulfate 325 mg (65 mg iron) Tablet 325 mg PO DAILY empagliflozin 25 mg Tablet 25 mg PO DAILY furosemide [Lasix] 20 mg tablet 20 mg PO [facility]
[2023-04-09] MEDS: levoFLOXacin 750 MG/150 ML BAG 100 MG IVPB (16:17)
[2023-04-09] MEDS: cefTRIAXone 1 GM/50 ML BAG IVPB (16:43)
[2023-04-09 17:26] VITALS: BP 138/76; PULSE 78; RESP 18; O2SAT 98
[2023-04-09 17:30] VITALS: BP 135/65; PULSE 68; RESP 16; TEMP 36; O2SAT 94
--- NOTE | 2023-04-09 17:31 | W.PM.HP.N ---
Date of service: 04/09/23 Time of Service: 17:31 Assessment and Plan Assessment and plan (1) Acute metabolic encephalopathy: Status: Acute Assessment and plan: Differential diagnosis include hepatic encephalopathy as well as secondary to UTI. We will treat his UTI with ceftriaxone 1 g IV every 24 hours await sensitivities from his urine culture and blood cultures. Continue with 30 g of lactulose 2-3 times a day enough to maintain 2-3 loose bowel movements per day. I have also added rifaximin. We will repeat his labs including his ammonia level in the morning. We will recheck his blood lactate tonight. Given his history of heart failure as well as history of portal hypertension I would be reluctant to give him IV fluids unless he is clinically dehydrated. Seems to be alert and oriented now and capable of eating and drinking so we will let him take oral replenishment and avoid IV fluids for tonight. If he has no bacteremia and he is responding to antibiotics we will switch him to oral antibiotics and possibly discharge in the next 24 to 48 hours as long as his mental status remains clear. Professional time spent interviewing and examining patient, discussion of goals of care with hospital team (care management, nursing and consulting professionals) was 60 minutes. (2) Hypertension: Status: Chronic Assessment and plan: Continue his carvedilol spironolactone and Lasix and prazosin. (3) ANETTE (obstructive sleep apnea): Status: Chronic Assessment and plan: Family needs to bring in his CPAP machine. I will order oxygen as needed at night to maintain his oxygen saturation. (4) Non-insulin dependent type 2 diabetes mellitus: Status: Chronic Assessment and plan: In light of his elevated blood lactate I have withheld his metformin. In light of the fact that he has a UTI I have withheld his Jardiance. For now we will cover his blood sugars with low-dose insulin sensitive sliding scale NovoLog. History of Present Illness History of Present Illness Chief Complaint: Acute confusion Narrative: 78-year-old white male former alcoholic with history of NIDDM, HTN, cirrhosis status post TIPS procedure, heart failure with mid range ejection fraction of 50 to 55%, remote history of colorectal cancer status post hemicolectomy with colostomy and recent history of small bowel obstructions treated nonsurgically. Patient's called EMS as the patient was having worsening generalized weakness and confusion over the last couple days. Patient reported the emergency department he has been weak and sick ever since he was [facility] Evaluation in the ER included a noncontrast CT scan of his head that showed periventricular white matter changes consistent with small vessel ischemic disease but no acute stroke he has an old nonhemorrhagic lacunar infarct in the left periventricular white matter that is unchanged from prior CT scans. Laboratory work-up included CBC which was fairly unremarkable other than borderline anemia with a hemoglobin 12.7 g which is actually improved from his previous level at 10.9 g on 03/08/2023. He has no leukocytosis and his platelet count is normal at 134,000. Coagulation profile was not done. Blood lactate level was elevated at 4.1 and urinalysis was remarkable for moderate mount of blood positive nitrites moderate leukocyte esterase with 20-50 white cells and 5-10 RBCs. Urine cultures were sent as well as blood cultures. Patient was started on ceftriaxone 1 g IV. His blood ammonia level was elevated at 123. Troponin levels were negative x2 sets. proBNP was modestly elevated at 853 but much less than his previous values when he was in heart failure earlier this year in which his proBNP was [id number]. Patient denies any chest pain or dyspnea denies any abdominal pain nausea or vomiting. States he has been stooling through his colostomy. Patient was given a dose of lactulose in the emergency department. Patient is now being admitted to medical/surgical floor for continued parenteral antibiotics for his UTI as well as treatment of his hepatic encephalopathy. Patient states he already feels better now. Clinically he seems to be alert and oriented and not encephalopathic at present time. Review of Systems Constitutional Constitutional: Reports fatigue and Reports weakness Cardiovascular Cardiovascular: Reports system reviewed and no additional complaints, except as documented Respiratory Respiratory: Reports system reviewed and no additional complaints, except as documented Gastrointestinal Gastrointestinal: Reports system reviewed and no additional complaints, except as documented Genitourinary Genitourinary: Reports dysuria and Reports urinary urgency Musculoskeletal Musculoskeletal: Reports system reviewed and no additional complaints, except as documented and Denies tingling Integumentary/Breasts Skin/Breast: Reports system reviewed and no additional complaints, except as documented Neurologic Neurologic: Reports system reviewed and no additional complaints, except as documented, Reports confusion, Denies tingling, Denies paresthesias, Reports tremor(s) and Reports weakness Psychiatric Psychiatric: Reports confusion Endocrine Endocrine: Reports fatigue Hematologic/Lymphatic Hematologic/Lymphatic: Reports system reviewed and no additional complaints, except as documented Allergic/Immunologic Allergic/Immunologic: Reports system reviewed and no additional complaints, except as documented PFSH All Active Problems (Updated 04/09/23 @ 19:29 by Carl Burton MD) Acute metabolic encephalopathy (Acute) Encephalopathy, hepatic (Acute) Confusion (Acute) Medication monitoring encounter (Acute) ANETTE (obstructive sleep apnea) (Chronic) Chest pain (Acute) CHF exacerbation (Acute) Depression (Chronic) 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, [facility] as per pt History of colon cancer Palliative care encounter Followed by [facility] Portal hypertension Recurrent intestinal obstruction Scleral icterus Surgical History Colostomy in place H/O left hemicolectomy S/P TIPS (transjugular intrahepatic portosystemic shunt) Social History Smoking/Tobacco Use Status: Former Tobacco Use Smoking risk assessment performed?: Yes Alcohol Intake: former Drug use: Never Substance use type: does not use Do you feel safe at home: Yes Do you feel safe in your relationship?: Yes Additional Social history: Lives with , son, and sick [id number] in [place], moved up from [place] in 2019. [place] . Meds Allergies and Home Medications Allergies Allergy/AdvReac Type Severity Reaction Status Date / Time Penicillins Allergy Mild Itching Unverified 04/09/23 13:24 morphine AdvReac Severe vomiting Unverified 04/09/23 13:24 mussels AdvReac Severe vomiting Unverified 04/09/23 13:24 Home Medications Medication Instructions Recorded Confirmed Type acetaminophen 325 mg capsule 975 mg PO Q6H PRN 11/08/22 04/09/23 History (Tylenol) apixaban 5 mg tablet (Eliquis) 5 mg PO BID 11/08/22 04/09/23 History empagliflozin 25 mg tablet 25 mg PO DAILY 11/08/22 04/09/23 History (Jardiance) levothyroxine 200 mcg tablet 200 mcg PO QAM 11/08/22 04/09/23 History metformin 1,000 mg tablet 1,000 mg PO BID 11/08/22 04/09/23 History pantoprazole 40 mg tablet,delayed 40 mg PO DAILY 11/08/22 04/09/23 History release prazosin 5 mg capsule 10 mg PO QHS 11/08/22 04/09/23 History pregabalin 50 mg capsule 50 mg PO BID 11/08/22 04/09/23 History spironolactone 25 mg tablet 25 mg PO QAM 11/08/22 04/09/23 History valsartan 40 mg tablet 40 mg PO BID 11/08/22 04/09/23 History venlafaxine 150 mg 150 mg PO DAILY 11/08/22 04/09/23 History capsule,extended release 24 hr tamsulosin 0.4 mg capsule 0.4 mg PO DAILY 11/29/22 04/09/23 History carvedilol 3.125 mg tablet 6.25 mg PO BID 12/27/22 03/08/23 History polyethylene glycol 3350 17 gram 17 g PO DAILY #0 ea 01/28/23 04/09/23 Rx oral powder packet nitroglycerin 0.4 mg sublingual 0.4 mg sublingual Q5 MIN PRN X3 02/10/23 04/09/23 Rx tablet PRN #30 tabs carvedilol 3.125 mg tablet 3.125 mg PO BID 03/08/23 04/09/23 History ferrous sulfate 325 mg (65 mg 325 mg PO DAILY 03/08/23 04/09/23 History iron) tablet empagliflozin 25 mg tablet 25 mg PO DAILY 04/09/23 04/09/23 History furosemide 20 mg tablet (Lasix) 20 mg PO QAM 04/09/23 04/09/23 History Exam Narrative Exam Narrative: Alert and oriented x4 HEENT: Atraumatic normocephalic, pupils equally round reactive to light and accommodation, extraocular motion intact, TMs intact, nares moist and patent without exudate or bleeding, oropharynx noninjected without exudate, teeth Poor repair with some dental caries Neck: Supple, nontender, without thyromegaly or lymphadenopathy or JVD. Normal carotid pulses Barrel chested with mild gynecomastia Lungs: Clear to auscultation and percussion Heart: Regular rate and rhythm without murmur rub or gallop. Normal apical impulse Abdomen: Nondistended, normal bowel sounds, nontender to palpation or percussion, no organomegaly, no bruits, no palpable masses, Patient has surgical scar over the lower mid abdomen and he has a colostomy in the left lower quadrant that appears to be draining light brown stool Genitalia and rectal exam: Uncircumcised penis no discharge. Extremities: Normal range of motion with normal strength. No peripheral cyanosis or edema. Normal pulses, loss of hair over dorsum of his feet; skin intact no ulcerations or open sores on his feet or toes Neurologic: Cranial nerves II through XII grossly within normal limits. Normal strength and sensation over the face trunk and extremities. Patient has slight intention tremors in both hands, no asterixis Results Imaging Chest x-ray: report reviewed and image reviewed EKG: image reviewed Imaging Studies: CT head w/out contrast: IMPRESSION: No acute intracranial findings on this noninfused CT scan of the brain. Chronic small-vessel white matter ischemic changes as above including in a stab list unchanged lacunar infarct in the left periventricular white matter. If clinically indicated follow-up MRI with diffusion imaging can be performed Evidence of prior paranasal sinus endoscopic surgery again evident.? Chronic mucosal thickening in the maxillary sinuses again noted. Labs 04/09/23 13:56 04/09/23 13:56 Labs: Laboratory Results - last 24 hr 04/09/23 04/09/23 04/09/23 13:56 13:56 13:56 WBC RBC Hgb Hct MCV MCH MCHC RDW Plt Count MPV Immature Gran % Neutrophils % Lymphocytes % Monocytes % Eosinophils % Basophils % Nucleated RBC % Absolute Neutrophils Absolute Lymphocytes Absolute Monocytes Absolute Eosinophils Absolute Basophils VBG Lactate 4.1 H* Sodium 141 Potassium 4.0 Chloride 108 H Carbon Dioxide 23.8 Anion Gap 9.2 BUN 19 H Creatinine 1.2 Est GFR (CKD-EPI 2020) 62.67 Glucose 128 H Calcium 8.9 Magnesium 1.7 L Total Bilirubin 2.1 H AST 32 ALT 19 Alkaline Phosphatase 147 H Ammonia 123 H Troponin I < 50 NT-Pro-B Natriuret Pep Total Protein 7.2 Albumin 3.0 L TSH 0.10 L Free T4 2.21 H Urine Color Urine Clarity Urine pH Ur Specific [place] Urine Protein Urine Ketones Urine Blood Urine Nitrite Urine Bilirubin Urine Urobilinogen Ur Leukocyte Esterase Urine RBC Urine WBC Ur Epithelial Cells Urine Crystals Urine Bacteria Urine Casts Urine Mucus Ur Culture Indicated? Urine Glucose 04/09/23 04/09/23 04/09/23 13:56 13:56 15:22 WBC 5.26 RBC 4.97 Hgb 12.7 L Hct 40.2 MCV 81 MCH 25.6 L MCHC 31.6 L RDW 17.7 H Plt Count 134 MPV 10.7 Immature Gran % 0.2 Neutrophils % 70.0 Lymphocytes % 16.3 Monocytes % 9.3 Eosinophils % 3.6 Basophils % 0.6 Nucleated RBC % 0.0 Absolute Neutrophils 3.68 Absolute Lymphocytes 0.86 L Absolute Monocytes 0.49 Absolute Eosinophils 0.19 Absolute Basophils 0.03 VBG Lactate Sodium Potassium Chloride Carbon Dioxide Anion Gap BUN Creatinine Est GFR (CKD-EPI 2020) Glucose Calcium Magnesium Total Bilirubin AST ALT Alkaline Phosphatase Ammonia Troponin I NT-Pro-B Natriuret Pep 853 H Total Protein Albumin TSH Free T4 Urine Color Yellow Urine Clarity Cloudy Urine pH 5.5 Ur Specific [place] 1.015 Urine Protein 30 H Urine Ketones Negative Urine Blood Moderate H Urine Nitrite Positive H Urine Bilirubin Negative Urine Urobilinogen 1.0 H Ur Leukocyte Esterase Moderate H Urine RBC 5-10 H Urine WBC 20-50 H Ur Epithelial Cells Rare Urine Crystals Negative Urine Bacteria Many Urine Casts Negative Urine Mucus Negative Ur Culture Indicated? Yes Urine Glucose >=1000 H Last Vital Signs Temp 36.8 C 04/09/23 13:17 Pulse 78 04/09/23 17:26 Resp 18 04/09/23 17:26 BP 138/76 04/09/23 17:26 Pulse Ox 98 04/09/23 17:26 Time Spent Time spent with Patient: 55-74 minutes Time was spent: preparing to see the patient(eg.review tests), obtaining and/or reviewing separately otained hiistory, ordering medications,tests, procedures, referring, communicating with other health director of medicare (Including discussion with ED provider, Dr. Morrissey), indepentently interpreting results, counseling the patient and care coordination
[2023-04-09 18:35] LABS: Troponin I < 50 ng/L (<or=60)
[2023-04-09 19:20] VITALS: BP 162/64; PULSE 64; RESP 19; TEMP 36.4; O2SAT 95
[2023-04-09 19:43] LABS: Lactate 4.1 mmol/L (0.6-1.4)
[2023-04-09] MEDS: Normal Saline 500 ML IV (20:14)
[2023-04-09] MEDS: Rifaximin 550 MG TAB PO (20:15)
[2023-04-09] MEDS: Pregabalin 50 MG CAP PO (20:15)
[2023-04-09] MEDS: Magnesium Oxide 400 MG TAB 800 MG PO (20:16)
[2023-04-09] MEDS: Valsartan 40 MG TAB PO (20:16)
[2023-04-09] MEDS: Carvedilol 3.125 MG TAB PO (20:17)
[2023-04-09] MEDS: Apixaban 5 MG TAB PO (20:17)
[2023-04-09] MEDS: Prazosin 5 MG CAP 10 MG PO (22:00)
[2023-04-09 23:14] VITALS: BP 132/60; PULSE 73; RESP 18; TEMP 36.3; O2SAT 94
[2023-04-10 03:24] VITALS: BP 132/58; PULSE 57; RESP 18; TEMP 36.1; O2SAT 90
[2023-04-10 07:00] VITALS: BP 129/85; PULSE 66; RESP 18; TEMP 35.5; O2SAT 90
[2023-04-10] MEDS: Spironolactone 25 MG TAB PO (08:00)
[2023-04-10] MEDS: Tamsulosin 0.4 MG CAPCR PO (08:00)
[2023-04-10] MEDS: Polyethylene Glycol 3350 17 GM PACKET PO (08:00)
[2023-04-10] MEDS: Venlafaxine 150 MG CAPCR PO (08:00)
[2023-04-10] MEDS: Apixaban 5 MG TAB PO (08:00)
[2023-04-10] MEDS: Valsartan 40 MG TAB PO (08:00)
[2023-04-10] MEDS: Ferrous Sulfate 325 MG TAB PO (08:00)
[2023-04-10] MEDS: Rifaximin 550 MG TAB PO (08:00)
[2023-04-10] MEDS: Magnesium Oxide 400 MG TAB 800 MG PO (08:00)
[2023-04-10] MEDS: Furosemide 20 MG TAB PO (08:00)
[2023-04-10] MEDS: Lactulose 20 GM/30 ML CUP 30 GM PO ×2 (08:00→13:29)
[2023-04-10] MEDS: Pregabalin 50 MG CAP PO (08:00)
[2023-04-10] MEDS: Carvedilol 3.125 MG TAB PO (08:00)
[2023-04-10] MEDS: Pantoprazole 40 MG TABCR PO (08:00)
[2023-04-10 08:44] LABS: Hemoglobin A1C 7.1 % (<5.7)
[2023-04-10 08:56] LABS: Abs Immature Grans 0.01 10^3/uL (0.0-0.06); Absolute Basophil Count 0.04 10^3/uL (0.0-0.2); Absolute Eosinophil Count 0.37 10^3/uL (0.0-0.7); Absolute Lymphocyte Count 1.06 10^3/uL (1.2-3.4); Absolute Monocyte Count 0.53 10^3/uL (0.1-0.8); Absolute Neutrophil Count 2.17 10^3/uL (1.2-6.7); Eosinophils % 8.9; HCT 36.1 % (40.0-50.0); HGB 11.5 g/dL (13.5-17.5); Immature Grans % 0.2; Lymphocytes % 25.4; MCHC 31.9 % (32.0-36.0); MCV 82 fL (80-95); MPV 11.6 fL (8.0-11.0); Monocytes % 12.7; Neutrophils % 51.8; Platelet Count 124 10^3/uL (130-400); RBC 4.43 10^6/uL (4.36-5.78); RDW 17.6 % (11.8-14.1); RDW-SD 51.5 fL; WBC 4.18 10^3/uL (4.4-10.8)
[2023-04-10 09:06] LABS: Ammonia < 10 umol/L (11-32); Lactate 1.6 mmol/L (0.6-1.4)
[2023-04-10 09:18] LABS: INR 1.1 (0.9-1.1); Prothrombin Time 11.6 sec (9.3-11.0)
--- NOTE | 2023-04-10 09:19 | PDOC.CMIN ---
Date of service: 04/10/23 Time of Service: 09:19 Care Management Initial Assmt Initial Assessment REASON FOR HOSPITALIZATION:: hepatic encephalopathy PREVIOUS FUNCTIONAL STATUS/SOCIAL/FAMILY SUPPORTS:: Merrill lives in [place] with his , Clary, his son Osmar Gibson who is disabled, and his [id number] Fuad who has stage IV lung cancer. 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 He is an [employer] and is 100% [facility] connected. He is independent with his ADLs at baseline. ADVANCE DIRECTIVES:: none on file Has patient been provided with info about the portal/API?: Yes Did the patient sign up for the portal?: No CODE STATUS:: Full Code INSURANCE COVERAGE / FINANCIAL ISSUES:: [facility] PRIMARY CARE PHYSICIAN:: Osmar Carver POTENTIAL DISCHARGE NEEDS:: follow up with PCP and plan of care PATIENT/FAMILY EDUCATION NEEDS:: review of discharge instructions, limitations, activity, follow up plan, discuss Ask Me Three TRANSPORTATION:: via private vehicle PLAN:: Anticipate Osmar will discharge home with no new services. He will follow up with his providers at the [facility] and transport with family. CM will follow and assess for discharge planning concerns. [facility] All Active Problems (Updated 04/09/23 @ 19:29 by Carl Burton MD) Acute metabolic encephalopathy (Acute) Encephalopathy, hepatic (Acute) Confusion (Acute) Medication monitoring encounter (Acute) ANETTE (obstructive sleep apnea) (Chronic) Chest pain (Acute) CHF exacerbation (Acute) Depression (Chronic) Non-insulin dependent type 2 diabetes mellitus (Chronic) Incontinence (Chronic) Hypertension (Chronic) CHF (congestive heart failure) (Chronic) Medical History Chronic anticoagulation Chronic low back pain [place] [facility] [place] 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, Dx [facility] as per pt History of colon cancer Palliative care encounter Followed by [facility] Portal hypertension Recurrent intestinal obstruction Scleral icterus Surgical History Colostomy in place H/O left hemicolectomy S/P TIPS (transjugular intrahepatic portosystemic shunt) Social History Smoking/Tobacco Use Status: Former Tobacco Use Smoking risk assessment performed?: Yes Alcohol Intake: former Drug use: Never Substance use type: does not use Do you feel safe at home: Yes Do you feel safe in your relationship?: Yes Additional Social history: Lives with , son, and sick [id number] in [facility], [place]. [place] .
[2023-04-10 11:11] VITALS: BP 150/70; PULSE 94; RESP 16; TEMP 35.8; O2SAT 94
[2023-04-10] MEDS: cefTRIAXone 1 GM/50 ML BAG IVPB (11:15)
[2023-04-10] MEDS: Insulin Aspart 300 UNITS/3 ML PEN SC (11:57)
--- NOTE | 2023-04-10 12:02 | DSE_ITS ---
Date of service: 04/10/23 Time of Service: 12:05 DS: Diagnosis Discharge Diagnosis (1) Acute metabolic encephalopathy: Status: Acute (2) Hypertension: Status: Chronic (3) ANETTE (obstructive sleep apnea): Status: Chronic (4) Non-insulin dependent type 2 diabetes mellitus: Status: Chronic Discharge Plan Disposition Patient Disposition: Home W/Home Health Services Condition: Stable Discharge Details Reason For Visit: Hepatic Encephalopathy Admit Date/Time: 04/09/23 16:29 Admit Provider: Carl Burton Attending Provider: Carl Burton Primary Care Provider: Maryann Whitt Hospital Course Hospital Course: This is a 78-year-old white male former alcoholic with history of NIDDM, HTN, cirrhosis status post TIPS procedure, heart failure with mid range ejection fraction of 50 to 55%, remote history of colorectal cancer status post hemicolectomy with colostomy and recent history of small bowel obstructions treated nonsurgically.? Patient's called EMS as the patient was having worsening generalized weakness and confusion.? His work-up in the emergency department was concerning for acute hepatic encephalopathy and he was found to have a urinary tract infection. He was placed on ceftriaxone and given lactulose. He was also started on rifaximin. Overnight his symptoms resolved and he returned to his baseline with no further confusion. He was alert oriented eating and drinking and bowels and bladder functioning. Blood cultures remained negative to date. His urine grew Serratia marcescens which was sensitive to the ceftriaxone that he received. We did give him a dose of fosfomycin prior to discharge so no antibiotics were prescribed at time of discharge. He will be discharged to home on lactulose 2-3 times daily to produce 2-3 soft stools a day. On day of discharge his colostomy did have dark brown stool which was heme negative. Vital signs stable. Hospital course also noted a TSH low at 0.10 we did reduce his dose of levothyroxine to 100 mics daily and he should follow-up with his primary care provider to have his TSH checked in 6 weeks. He is discharged to home with resumption of home health services. Discharge discussed with Dr. Burton Home Meds and New Rx's Prescriptions: New lactulose 20 gram/30 mL Solution 30 g PO BID Qty: 60 0RF Continued venlafaxine 150 mg Capsule,Extended Release 24hr 150 mg PO DAILY spironolactone 25 mg Tablet 25 mg PO QAM prazosin 5 mg Capsule 10 mg PO QHS pantoprazole 40 mg Tablet,Delayed Release (Dr/Ec) 40 mg PO DAILY metformin 1,000 mg Tablet 1,000 mg PO BID valsartan 40 mg Tablet 40 mg PO BID pregabalin 50 mg Capsule 50 mg PO BID acetaminophen [Tylenol] 325 mg Capsule 975 mg PO Q6H MDD 3000 PRN Eliquis 5 mg Tablet 5 mg PO BID Jardiance 25 mg Tablet 25 mg PO DAILY nitroglycerin 0.4 mg Tablet, Sublingual 0.4 mg sublingual Q5 MIN PRN X3 PRNQty: 30 0RF tamsulosin 0.4 mg Capsule 0.4 mg PO DAILY polyethylene glycol 3350 17 gram Powder In Packet 17 g PO DAILY Qty: 0 0RF carvedilol 3.125 mg tablet 3.125 mg PO BID Patient Comments: TAKE 1 TABLET (3.125MG) BY MOUTH TWICE DAILY Rx Instructions: with meals ferrous sulfate 325 mg (65 mg iron) Tablet 325 mg PO DAILY empagliflozin 25 mg Tablet 25 mg PO DAILY furosemide [Lasix] 20 mg tablet 20 mg PO QAM Changed levothyroxine 200 mcg Tablet 100 mcg PO QAM Qty: 0 0RF Discharge Instructions Instructions: Hepatic Encephalopathy (DC) Additional Instructions: your TSH is low at 0.10, you should reduce your levothyroxine dose and follow up with primary care provider about recheck in 6 weeks for further adjustments if needed. continue lactulose 2-3 times daily to keep stools at 2-3 daily. Stand Alone Forms: Nursing Discharge Form [facility]errals: [facility] [Other] (Please call today or tomorrow to make a follow up appointment for 1-2 weeks. ) Activity:: Activity as Tolerated Equipment/Supplies:: No Equipment Needed Diet:: As Tolerated Discharge Orders Discharge Orders: Discharge Order (Routine); Ordered 04/10/23 Ordered By: Bella Santo Discharge Data Discharge Date/Time-TO BE ENTERED AT DEPARTURE: 04/10/23 17:37 DS: Summary Time Spent with Patient providing and/or coordinating discharge services: Greater than 30 minutes Status at Discharge Functional status at discharge: uses cane/walker Overall status at discharge: patient is progressing back to baseline Mental Status: mental status grossly normal Speech and Movement: speech and movement normal Mood: congruent mood Affect: normal affect Exam Psych Mental Status: mental status grossly normal Speech and Movement: speech and movement normal Mood: congruent mood Affect: normal affect DS: Data Vitals/I&O Vitals and I&O: Vital Signs Temperature 35.8 C L 04/10/23 11:11 Temperature Source Tympanic 04/10/23 11:11 Pulse 94 H 04/10/23 11:11 Pulse Rhythm Regular 04/10/23 07:00 Respiratory Rate 16 04/10/23 11:11 Respiratory Effort Normal, Non-Labored 04/10/23 07:00 Respiratory Depth Normal 04/10/23 07:00 Respiratory Pattern Normal 04/10/23 07:00 Blood Pressure 150/70 H 04/10/23 11:11 Pulse Oximetry 94 04/10/23 11:11 Oxygen Delivery Method Room Air 04/10/23 11:11 Oxygen Flow Rate 0 04/10/23 11:11 Fraction of Inspired Oxygen (FIO2) 21 04/09/23 18:02 Pain Level 3 04/10/23 11:11 Intake & Output 04/09/23 04/10/23 04/10/23 23:59 11:59 23:59 Intake Total 868.750 / 170.810 4676.250 / 2201.250 Output Total 975 / 975 1450 / 1450 Balance -106.250 / -106.250 751.250 / 751.250 Weight 93.894 kg 217 kg Intake: IV 618.750 / 618.750 641.250 / 641.250 Oral 250 / 250 1560 / 1560 Output: Urine 525 / 525 850 / 850 Stool 450 / 450 600 / 600 Other: Urine Color Yellow Light Mady Urine Appearance Clear Clear Urine Odor Normal Stool Size Moderate Stool Characteristics Soft Soft Brown Liquid Voiding Methods Urinal Urinal Data Completed and Pending Labs on day of discharge: Labs from last 24 hours 04/10/23 04/10/23 04/10/23 06:30 06:30 06:30 WBC RBC Hgb Hct MCV MCH MCHC RDW Plt Count MPV Immature Gran % Neutrophils % Lymphocytes % Monocytes % Eosinophils % Basophils % Nucleated RBC % Absolute Neutrophils Absolute Lymphocytes Absolute Monocytes Absolute Eosinophils Absolute Basophils PT INR VBG Lactate 1.6 H Sodium Potassium Chloride Carbon Dioxide Anion Gap BUN Creatinine Est GFR (CKD-EPI 2020) Glucose Hemoglobin A1c 7.1 H Calcium Magnesium Total Bilirubin AST ALT Alkaline Phosphatase Ammonia < 10 L Troponin I NT-Pro-B Natriuret Pep Total Protein Albumin TSH Free T4 Urine Color Urine Clarity Urine pH Ur Specific [place] Urine Protein Urine Ketones Urine Blood Urine Nitrite Urine Bilirubin Urine Urobilinogen Ur Leukocyte Esterase Urine RBC Urine WBC Ur Epithelial Cells Urine Crystals Urine Bacteria Urine Casts Urine Mucus Ur Culture Indicated? Urine Glucose 04/10/23 04/10/23 04/10/23 06:30 06:30 06:30 WBC 4.18 L RBC 4.43 Hgb 11.5 L Hct 36.1 L MCV 82 MCH 26.0 L MCHC 31.9 L RDW 17.6 H Plt Count 124 L MPV 11.6 H Immature Gran % 0.2 Neutrophils % 51.8 Lymphocytes % 25.4 Monocytes % 12.7 Eosinophils % 8.9 Basophils % 1.0 Nucleated RBC % 0.0 Absolute Neutrophils 2.17 Absolute Lymphocytes 1.06 L Absolute Monocytes 0.53 Absolute Eosinophils 0.37 Absolute Basophils 0.04 PT 11.6 H INR 1.1 VBG Lactate Sodium Potassium Chloride Carbon Dioxide Anion Gap BUN Creatinine Est GFR (CKD-EPI 2020) Glucose Hemoglobin A1c Calcium Magnesium 2.0 Total Bilirubin AST ALT Alkaline Phosphatase Ammonia Troponin I NT-Pro-B Natriuret Pep Total Protein Albumin TSH Free T4 Urine Color Urine Clarity Urine pH Ur Specific [place] Urine Protein Urine Ketones Urine Blood Urine Nitrite Urine Bilirubin Urine Urobilinogen Ur Leukocyte Esterase Urine RBC Urine WBC Ur Epithelial Cells Urine Crystals Urine Bacteria Urine Casts Urine Mucus Ur Culture Indicated? Urine Glucose 04/09/23 04/09/23 04/09/23 19:30 18:13 15:22 WBC RBC Hgb Hct MCV MCH MCHC RDW Plt Count MPV Immature Gran % Neutrophils % Lymphocytes % Monocytes % Eosinophils % Basophils % Nucleated RBC % Absolute Neutrophils Absolute Lymphocytes Absolute Monocytes Absolute Eosinophils Absolute Basophils PT INR VBG Lactate 4.1 H* Sodium Potassium Chloride Carbon Dioxide Anion Gap BUN Creatinine Est GFR (CKD-EPI 2020) Glucose Hemoglobin A1c Calcium Magnesium Total Bilirubin AST ALT Alkaline Phosphatase Ammonia Troponin I < 50 NT-Pro-B Natriuret Pep Total Protein Albumin TSH Free T4 Urine Color Yellow Urine Clarity Cloudy Urine pH 5.5 Ur Specific [place] 1.015 Urine Protein 30 H Urine Ketones Negative Urine Blood Moderate H Urine Nitrite Positive H Urine Bilirubin Negative Urine Urobilinogen 1.0 H Ur Leukocyte Esterase Moderate H Urine RBC 5-10 H Urine WBC 20-50 H Ur Epithelial Cells Rare Urine Crystals Negative Urine Bacteria Many Urine Casts Negative Urine Mucus Negative Ur Culture Indicated? Yes Urine Glucose >=1000 H 04/09/23 04/09/23 04/09/23 13:56 13:56 13:56 WBC 5.26 RBC 4.97 Hgb 12.7 L Hct 40.2 MCV 81 MCH 25.6 L MCHC 31.6 L RDW 17.7 H Plt Count 134 MPV 10.7 Immature Gran % 0.2 Neutrophils % 70.0 Lymphocytes % 16.3 Monocytes % 9.3 Eosinophils % 3.6 Basophils % 0.6 Nucleated RBC % 0.0 Absolute Neutrophils 3.68 Absolute Lymphocytes 0.86 L Absolute Monocytes 0.49 Absolute Eosinophils 0.19 Absolute Basophils 0.03 PT INR VBG Lactate 4.1 H* Sodium Potassium Chloride Carbon Dioxide Anion Gap BUN Creatinine Est GFR (CKD-EPI 2020) Glucose Hemoglobin A1c Calcium Magnesium Total Bilirubin AST ALT Alkaline Phosphatase Ammonia Troponin I NT-Pro-B Natriuret Pep 853 H Total Protein Albumin TSH Free T4 Urine Color Urine Clarity Urine pH Ur Specific [place] Urine Protein Urine Ketones Urine Blood Urine Nitrite Urine Bilirubin Urine Urobilinogen Ur Leukocyte Esterase Urine RBC Urine WBC Ur Epithelial Cells Urine Crystals Urine Bacteria Urine Casts Urine Mucus Ur Culture Indicated? Urine Glucose 04/09/23 04/09/23 13:56 13:56 WBC RBC Hgb Hct MCV MCH MCHC RDW Plt Count MPV Immature Gran % Neutrophils % Lymphocytes % Monocytes % Eosinophils % Basophils % Nucleated RBC % Absolute Neutrophils Absolute Lymphocytes Absolute Monocytes Absolute Eosinophils Absolute Basophils PT INR VBG Lactate Sodium 141 Potassium 4.0 Chloride 108 H Carbon Dioxide 23.8 Anion Gap 9.2 BUN 19 H Creatinine 1.2 Est GFR (CKD-EPI 2020) 62.67 Glucose 128 H Hemoglobin A1c Calcium 8.9 Magnesium 1.7 L Total Bilirubin 2.1 H AST 32 ALT 19 Alkaline Phosphatase 147 H Ammonia 123 H Troponin I < 50 NT-Pro-B Natriuret Pep Total Protein 7.2 Albumin 3.0 L TSH 0.10 L Free T4 2.21 H Urine Color Urine Clarity Urine pH Ur Specific [place] Urine Protein Urine Ketones Urine Blood Urine Nitrite Urine Bilirubin Urine Urobilinogen Ur Leukocyte Esterase Urine RBC Urine WBC Ur Epithelial Cells Urine Crystals Urine Bacteria Urine Casts Urine Mucus Ur Culture Indicated? Urine Glucose 04/09/23 14:31 Blood Blood Culture - Pending 04/09/23 14:20 Blood Blood Culture - Pending Preliminary micro results at discharge 04/09/23 15:22 Urine Culture - Preliminary Urine - Reflex from Ua Gram Negative Ruslan 04/09/23 14:31 Blood Culture - Pending Blood 04/09/23 14:20 Blood Culture - Pending Blood PFSH All Active Problems (Updated 04/09/23 @ 19:29 by Carl Burton MD) Acute metabolic encephalopathy (Acute) Encephalopathy, hepatic (Acute) Confusion (Acute) Medication monitoring encounter (Acute) ANETTE (obstructive sleep apnea) (Chronic) Chest pain (Acute) CHF exacerbation (Acute) Depression (Chronic) Non-insulin dependent type 2 diabetes mellitus (Chronic) Incontinence (Chronic) Hypertension (Chronic) CHF (congestive heart failure) (Chronic) Medical History Chronic anticoagulation Chronic low back pain Cirrhosis TIPs placed (?when, 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, Dx [facility] as per pt History of colon cancer Palliative care encounter Followed by [facility] Portal hypertension Recurrent intestinal obstruction Scleral icterus Surgical History Colostomy in place H/O left hemicolectomy S/P TIPS (transjugular intrahepatic portosystemic shunt) Social History Smoking/Tobacco Use Status: Former Tobacco Use Smoking risk assessment performed?: Yes Alcohol Intake: former Drug use: Never Substance use type: does not use Do you feel safe at home: Yes Do you feel safe in your relationship?: Yes Additional Social history: Lives with , son, and sick [id number] in [place], moved up from [place] in 2019. [place]. Time Spent with Patient Time Spent with Patient: 45-69 minutes Time was spent: preparing to see the patient(eg.review tests), obtaining and/or reviewing separately otained hiistory, ordering medications,tests, procedures, indepentently interpreting results and counseling the patient
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
[2023-04-10] MEDS: Fosfomycin Tromethamine 3 GM PACKET PO (13:29)
[2023-04-10 15:10] VITALS: BP 161/73; PULSE 65; RESP 20; TEMP 35.9; O2SAT 95
== END 2023-04-10 17:37 | disposition home health service (06) | DRG 689 ==
LOC: ER 16:14 → MS 17:37
PROVIDERS: Emergency Medicine; Admitting Provider Internal Medicine; Emergency Provider Emergency Medicine; PCP Nurse Practitioner Adult Health; Visit Provider Internal Medicine
DX: N39.0 Urinary tract infection, site not specified (principal); G93.41 Metabolic encephalopathy; I67.89 Other cerebrovascular disease; K76.6 Portal hypertension; I10 Essential (primary) hypertension; K74.60 Unspecified cirrhosis of liver; G47.33 Obstructive sleep apnea (adult) (pediatric); E11.9 Type 2 diabetes mellitus without complications; I50.9 Heart failure, unspecified; F10.21 Alcohol dependence, in remission; Z93.3 Colostomy status; R32 Unspecified urinary incontinence; F32.A Depression, unspecified; Z79.01 Long term (current) use of anticoagulants; G89.29 Other chronic pain; M54.50 Low back pain, unspecified; Z79.84 Long term (current) use of oral hypoglycemic drugs; Z87.891 Personal history of nicotine dependence; R53.1 Weakness; Z85.038 Personal history of other malignant neoplasm of large intestine; I11.0 Hypertensive heart disease with heart failure; Z90.49 Acquired absence of other specified parts of digestive tract; Z86.73 Personal history of transient ischemic attack (TIA), and cerebral infarction without residual deficits
CPT/HCPCS: 36415; 80053; 87040; 87077; 93005; 70450; 71045; 81003; 81015; 82140; 83036; 83605; 83735; 83880; 84439; 84443; 84484; 85025; 85610; 87086; 87186; 93010; 99222; 99238; J0696; J1956; J3490

== ENCOUNTER 2023-06-16 14:11 | Inpatient (IN) | payer OTHER, SELFPAY ==
[2023-06-16] VITALS (34 sets, daily range): BP systolic 153–188; BP diastolic 60–90; PULSE 50–74; RESP 12–20; TEMP 36.3–36.9; O2SAT 95
--- NOTE | 2023-06-16 14:00 | RT.EKG_ITS ---
APPROVED REPORT Exam: Resting ECG Reason for Exam: DIZZY Patient Location: E HR:54 bpm ECG Measurements Heart Rate 54 AXIS NH 94 P 0 QRSd 125 QRS -5 QT 533 T 59 QTc 505 Conclusion Sinus bradycardia...rate< 60 Ventricular bigeminy...bigeminy string>4 w/ V complexes Left bundle branch block...QRSd>120, broad/notched R Prolonged QT interval...QTc >500mS Sinus bradycardia at a rate of 54 with left bundle branch block pattern. Prolonged QTc at 503 ms. P R read as short however appears long on my interpretation. Not meeting Sgarbossa criteria nor modifi yana Berg criteria for ischemia. QTc has prolonged since prior dated earlier this year. First-degree AV block is persistent.
[2023-06-16 14:44] LABS: Abs Immature Grans 0.02 10^3/uL (0.0-0.06); Absolute Basophil Count 0.06 10^3/uL (0.0-0.2); Absolute Eosinophil Count 0.36 10^3/uL (0.0-0.7); Absolute Lymphocyte Count 1.33 10^3/uL (1.2-3.4); Absolute Monocyte Count 0.62 10^3/uL (0.1-0.8); Absolute Neutrophil Count 4.65 10^3/uL (1.2-6.7); Basophils % 0.9; Eosinophils % 5.1; HCT 45.9 % (40.0-50.0); HGB 15.6 g/dL (13.5-17.5); Immature Grans % 0.3; Lymphocytes % 18.9; MCH 28.7 pg (27.0-33.0); MCV 85 fL (80-95); MPV 10.9 fL (8.0-11.0); Monocytes % 8.8; Platelet Count 161 10^3/uL (130-400); RBC 5.43 10^6/uL (4.36-5.78); RDW 17.2 % (11.8-14.1); RDW-SD 53.2 fL; WBC 7.04 10^3/uL (4.4-10.8)
[2023-06-16 14:45] LABS: Lactate 4.6 mmol/L (0.6-1.4)
[2023-06-16 14:46] LABS: Bilirubin Negative (Negative); Blood Small (Negative); Clarity Clear (Clear); Glucose >=1000 mg/dL (Negative); Ketones Negative (Negative); Leukocyte Esterase Small (Negative); Nitrite Negative (Negative); Urobilinogen 0.2 mg/dL (Up to 0.2); pH 5.5 (5-8)
[2023-06-16 14:53] LABS: Bacteria Moderate HPF (Negative); C & S Indicated? Yes; Casts Negative LPF (Negative); Crystals Negative HPF (Negative); Epithelial Cells Rare HPF (Negative); Mucus Negative (Negative)
--- NOTE | 2023-06-16 15:03 | DI.CT_ITS ---
Exam(s) CT HEAD CERVICAL SPINE WO EXAM: CT HEAD CERVICAL SPINE WO CLINICAL HISTORY: falls, hi, anticoag. TECHNIQUE: Imaging Protocol: Axial computed tomography images with coronal and sagittal reformatted images were created and reviewed COMPARISON: CT CT HEAD WO from 04/09/2023 FINDINGS: The examination is limited due to patient motion artifact. CT Head: Ventricles and Extra axial spaces: Normal in size and morphology for the patient's age. Hemorrhage: None. Cerebral parenchyma: There is no evidence of an acute territorial infarct. There are areas of decrea sed attenuation in the white matter consistent with small vessel ischemic disease. There are stable parenchymal calcifications. Midline shift: None. Brainstem/Cerebellum: Normal. Calvarium: Normal. Visualized Paranasal sinuses/Mastoids: Mucous retention cysts or polyps are seen in the left maxillar y sinus. The remaining visualized paranasal sinuses are clear. Soft Tissues: Unremarkable. CT Cervical Spine: Bones: No acute fracture or subluxation. There are degenerative changes seen in the cervical spine. The bones appear osteopenic. Soft Tissues: Unremarkable. Lung Apices: Clear. IMPRESSION: 1. No acute intracranial process. 2. No acute fracture or subluxation in the cervical spine. 3. Findings were discussed with the emergency department at 4:21 p.m. on 06/16/2023. RADIATION DOSE DELIVERED: 1,621.55mGy.cm Total DLP DATA REPOSITORY: All CT scans at this facility are submitted to the National Radiology Data Registry (NRDR) Dose Index Registry (DIR) with the [employer] (ACR). RADIATION OPTIMIZATION: All CT scans at this facility use at least one of these dose optimization te chniques: automated exposure control; mA and/or kV adjustment per patient size (includes targeted exa ms where dose is matched to clinical indication); or iterative reconstruction.
[2023-06-16 15:14] LABS: ALT 17 U/L (16-63); AST 29 U/L (15-37); Albumin 2.9 g/dL (3.4-5.0); Alkaline Phosphatase 151 U/L (46-116); Anion Gap 12.2 mmol/L (3-11); BUN 12 mg/dL (7-18); Bilirubin, Total 2.3 mg/dL (0.2-1.0); CO2 22.8 mmol/L (21.0-32.0); CREATININE 1.1 mg/dL (0.70-1.30); Calcium 9.3 mg/dL (8.5-10.1); Chloride 105 mmol/L (98-107); Estimated GFR 69.57 (mL/min/1.73m2); Glucose 315 mg/dL (74-106); Magnesium 1.8 mg/dL (1.8-2.4); Potassium 3.8 mmol/L (3.5-5.1); Sodium 140 mmol/L (136-145); TSH 28.65 uIU/mL (0.36-3.74); Total Protein 7.2 g/dL (6.4-8.2); Troponin I < 50 ng/L (<or=60)
--- NOTE | 2023-06-16 15:15 | DI.CT_ITS ---
Exam(s) CT CHEST/ABD/PEL W EXAM: CT CHEST/ABD/PEL W CLINICAL HISTORY: weakness, falls TECHNIQUE: Imaging Protocol: Axial computed tomography images with coronal and sagittal reformatted images were created and reviewed CONTRAST MATERIAL: Intravenous: Omnipaque 350 contrast volume:100 mL Oral: No COMPARISON: CT CT ABDOMEN PELVIS W from 03/08/2023 FINDINGS: CHEST: Tracheobronchial tree: Patent where visualized. Pulmonary parenchyma: No consolidation or dominant measurable mass. No architectural distortion. Ther e is dependent atelectasis in the lung bases. Calcified granuloma seen in the right lung. Visualized thyroid gland: Unremarkable. Mediastinum and Erika: No dominant adenopathy or fluid collection. The esophagus is unremarkable. Pleura: No effusion or pneumothorax. Heart: Cardiomegaly. Mild coronary artery calcification. No pericardial effusion. Pulmonary arteries: Pulmonary arteries are not adequately opacified for evaluation of pulmonary embol i. Aorta: Thoracic aorta non-dilated. Atherosclerosis. Lymph nodes: Within normal limits. Soft tissues: Gynecomastia. There is a small lipoma adjacent to the lateral aspect of the right scap albert. Bones:Within normal limits for the patient's age. No displaced rib fractures are identified. ABDOMEN: Liver: There is a TIPS in place. The liver has a lobulated contour consistent with hepatic cirrhosis . The liver is unchanged compared to the prior examination. There is an area of decreased attenuati on in the left lobe of the liver. There is heterogeneous enhancement of the liver which is unchanged . Portal, Superior Mesenteric, and Splenic Veins: Unremarkable. Gallbladder and Biliary Tract: No radiodense calculus or dilation. Pancreas: Normal density, no abnormal calcifications or inflammatory process. Spleen: Splenomegaly. Adrenals: Stable thickening of the limbs of the adrenal glands without adrenal mass. Kidneys: Normal size, contour and axis. No radiodense stones or obstructive uropathy. No masses seen. Abdominal Aorta: Abdominal portion non-dilated. Atherosclerosis. 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 There is a enterocol ic anastomosis in the right abdomen. The bowel shows no evidence of obstruction. There is an interv al entero anastomosis in the upper pelvis again seen. Nonspecific mild bowel wall thickening is seen in several small bowel loops in the central abdomen. No evidence of appendicitis. Peritoneal Cavity: No ascites, collection or mesenteric inflammatory response. No free air. Lymph Nodes: Within normal limits. Bones: Within normal limits for the patient's age. Soft Tissues: There is a fat containing right inguinal hernia. Postsurgical changes in the anterior abdominal wall. PELVIS: Bladder: Symmetric distention, no gross wall thickening. Reproductive Organs: Unremarkable as visualized. Lymph Nodes: Within normal limits. Bones: Within normal limits. IMPRESSION: 1. No acute pulmonary process. 2. No acute abdominal or pelvic process. 3. Postsurgical changes seen in the abdomen and pelvis as described. 4. Findings were discussed with the emergency department at 4:36 p.m. on 06/16/2023. RADIATION DOSE DELIVERED: 1,566.69mGy.cm Total DLP DATA REPOSITORY: All CT scans at this facility are submitted to the National Radiology Data Registry (NRDR) Dose Index Registry (DIR) with the [employer] (ACR). RADIATION OPTIMIZATION: All CT scans at this facility use at least one of these dose optimization te chniques: automated exposure control; mA and/or kV adjustment per patient size (includes targeted exa ms where dose is matched to clinical indication); or iterative reconstruction.
[2023-06-16] MEDS: cefTRIAXone 2 GM/50 ML BAG IVPB (15:16)
[2023-06-16] MEDS: Lactated Ringers 1,000 ML 200 ML IV (15:17)
[2023-06-16 15:23] LABS: Procalcitonin < 0.1 ng/mL
--- NOTE | 2023-06-16 15:33 | ED.GENADUL_ITS ---
Discharge Plan Disposition Patient Disposition: Admit to [facility] Discharge Details Clinical Impression: Encephalopathy, hepatic, Confusion, Acute hyperglycemia, Bradycardia, Multiple falls, Anticoagulated Admit Date/Time: 06/16/23 17:15 Admit Provider: Carl Burton Attending Provider: Carl Burton Primary Care Provider: Maryann Whitt ED Provider: Kamaljit Salas Discharge Data Discharge Date/Time-TO BE ENTERED AT DEPARTURE: 06/16/23 18:43 Medical Decision Making <STEFANO Carrasquillo - Last Filed: 06/17/23 21:36> 78-year-old gentleman with multiple comorbidities including CHF, depression, n [id number] diabetes, hepatic encephalopathy, confusion, status post TIPS procedure presents with reports of weakness and falls x3 in the past 2 days. States he does not fall frequently and was feeling improved after his admission and discharge in March. Denies any known head injury or loss of consciousness associated with these falls. He presents as he is felt progressively more weak throughout the day. He did not have any chest pain or shortness of breath or palpitations prior to the falls. He states he has felt similar to this in the past, he is having urinary frequency. He denies any antibiotics aside from when he was admitted previously. He is alert and oriented x2, he is aware that it is 2022 and knows that it summer, but does not know the month, he states this is not unusual He does have a colostomy bag in place, colostomy adhesive appears to have pulled apart and will need to be secured His abdomen is nontender, the remainder of and his neuro exam is benign, GCS 15, however he is slightly slow in speech, I am not familiar with this patient unsure as to whether or not this is his baseline He does report he is chronically anticoagulated His TSH is increased to 28, pending free T4, urinalysis shows 5-10 white blood cells and moderate bacteria, I will treat empirically with an elevated lactate with over the drawl. Of note, patient does develop pretty significant bradycardia when he goes from sitting to standing, my guess is that he probably has atrial fibrillation and is chronically anticoagulated secondary to that and on carvedilol, this is likely contributing to his bradycardia, he is not experiencing orthostatic hypotension, he has an EKG that shows bradycardia with first-degree AV block, he does have bigeminy and very mild prolongation of his QTc He does report that he recalls the events and does not think his episodes of syncope I think he will need to be admitted to the hospital, he is pending CT head and cervical spine, CT chest abdomen and pelvis, ammonia and disposition 1600-patient signed out to me from Irina AGARWAL. Please see initial documentation for presentation exam and work-up. Patient pending CT imaging results and ammonia. Spoke to radiologist in regards to CT imaging which shows no acute findings. Ammonia is elevated at 84. Due to elevated ammonia level, patient confused, anticoagulated and having multiple falls I do feel that he would benefit from admission. Patient was given 40 mg of lactulose and I called and spoke to hospitalist. Hospitalist agreed to admit patient for further work-up. Patient remained stable throughout emergency department stay. <Kamaljit Salas SILK HANGER - Last Filed: 06/16/23 22:13> 78-year-old gentleman with multiple comorbidities including CHF, depression, [id number] diabetes, hepatic encephalopathy, confusion, status post TIPS procedure presents with reports of weakness and falls x3 in the past 2 days. States he does not fall frequently and was feeling improved after his admission and discharge in March. Denies any known head injury or loss of consciousness associated with these falls. He presents as he is felt prog ressively more weak throughout the day. He did not have any chest pain or shortness of breath or palpitations prior to the falls. He states he has felt similar to this in the past, he is having urinary frequency. He denies any antibiotics aside from when he was admitted previously. He is alert and oriented x2, he is aware that it is 2022 and knows that it summer, but does not know the month, he states this is not unusual He does have a colostomy bag in place, colostomy adhesive appears to have pulled apart and will need to be secured His abdomen is nontender, the remainder of and his neuro exam is benign, GCS 15, however he is slightly slow in speech, I am not familiar with this patient unsure as to whether or not this is his baseline He does report he is chronically anticoagulated His TSH is increased to 28, pending free T4, urinalysis shows 5-10 white blood cells and moderate bacteria, I will treat empirically with an elevated lactate with over the drawl. Of note, patient does develop pretty significant bradycardia when he goes from sitting to standing, my guess is that he probably has atrial fibrillation and is chronically anticoagulated secondary to that and on carvedilol, this is likely contributing to his bradycardia, he is not experiencing orthostatic hypotension, he has an EKG that shows bradycardia with first-degree AV block, he does have bigeminy and very mild prolongation of his QTc He does report that he recalls the events and does not think his episodes of syncope I think he will need to be admitted to the hospital, he is pending CT head and cervical spine, CT chest abdomen and pelvis, and disposition 1600-patient signed out to me from Irina AGARWAL. Please see initial documentation for presentation exam and work-up. Patient pending CT imaging results and ammonia. Spoke to radiologist in regards to CT imaging which shows no acute findings. Ammonia is elevated at 84. Due to elevated ammonia level, patient confused, anticoagulated and having multiple falls I do feel that he would benefit from admission. Patient was given 40 mg of lactulose and I called and spoke to hospitalist. Hospitalist agreed to admit patient for further work-up. Patient remained stable throughout emergency department stay. Imaging Data Radiologic Study: Imaging: CT Scan Radiologist's impression: Exam(s) CT HEAD CERVICAL SPINE WO EXAM: CT HEAD CERVICAL SPINE WO CLINICAL HISTORY: falls, hi, anticoag. TECHNIQUE: Imaging Protocol: Axial computed tomography images with coronal and sagittal reformatted images were created and reviewed COMPARISON: CT CT HEAD WO from 04/09/2023 FINDINGS: The examination is limited due to patient motion artifact. CT Head: Ventricles and Extra axial spaces: Normal in size and morphology for the patient's age. Hemorrhage: None. Cerebral parenchyma: There is no evidence of an acute territorial infarct. There are areas of decreased attenuation in the white matter consistent with small vessel ischemic disease. There are stable parenchymal calcifications. Midline shift: None. Brainstem/Cerebellum: Normal. Calvarium: Normal. Visualized Paranasal sinuses/Mastoids: Mucous retention cysts or polyps are seen in the left maxillary sinus. The remaining visualized paranasal sinuses are clear. Soft Tissues: Unremarkable. CT Cervical Spine: Bones: No acute fracture or subluxation. There are degenerative changes seen in the cervical spine. The bones appear osteopenic. Soft Tissues: Unremarkable. Lung Apices: Clear. IMPRESSION: 1. No acute intracranial process. 2. No acute fracture or subluxation in the cervical spine. Radiologic Study #2: Imaging: CT Scan Radiologist's impression: Exam(s) a CT:CT chest/abd/pel w Exam(s) CT CHEST/ABD/PEL W EXAM: CT CHEST/ABD/PEL W CLINICAL HISTORY: weakness, falls TECHNIQUE: Imaging Protocol: Axial computed tomography images with coronal and sagittal reformatted images were created and reviewed CONTRAST MATERIAL: Intravenous: Omnipaque 350 contrast volume:100 mL Oral: No COMPARISON: CT CT ABDOMEN PELVIS W from 03/08/2023 FINDINGS: CHEST: Tracheobronchial tree: Patent where visualized. Pulmonary parenchyma: No consolidation or dominant measurable mass. No architectural distortion. There is dependent atelectasis in the lung bases. Calcified granuloma seen in the right lung. Visualized thyroid gland: Unremarkable. Mediastinum and Erika: No dominant adenopathy or fluid collection. The esophagus is unremarkable. Pleura: No effusion or pneumothorax. Heart: Cardiomegaly. Mild coronary artery calcification. No pericardial effusion. Pulmonary arteries: Pulmonary arteries are not adequately opacified for evaluation of pulmonary emboli. Aorta: Thoracic aorta non-dilated. Atherosclerosis. Lymph nodes: Within normal limits. Soft tissues: Gynecomastia. There is a small lipoma adjacent to the lateral aspect of the right scapula. Bones:Within normal limits for the patient's age. No displaced rib fractures are identified. ABDOMEN: Liver: There is a TIPS in place. The liver has a lobulated contour consistent with hepatic cirrhosis. The liver is unchanged compared to the prior examination. There is an area of decreased attenuation in the left lobe of the liver. There is heterogeneous enhancement of the liver which is unchanged. Portal, Superior Mesenteric, and Splenic Veins: Unremarkable. Gallbladder and Biliary Tract: No radiodense calculus or dilation. Pancreas: Normal density, no abnormal calcifications or inflammatory process. Spleen: Splenomegaly. Adrenals: Stable thickening of the limbs of the adrenal glands without adrenal mass. Kidneys: Normal size, contour and axis. No radiodense stones or obstructive uropathy. No masses seen. Abdominal Aorta: Abdominal portion non-dilated. Atherosclerosis. 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 There is a enterocolic anastomosis in the right abdomen. The bowel shows no evidence of obstruction. There is an interval entero anastomosis in the upper pelvis again seen. Nonspecific mild bowel wall thickening is seen in several small bowel loops in the central abdomen. No evidence of appendicitis. Peritoneal Cavity: No ascites, collection or mesenteric inflammatory response. No free air. Lymph Nodes: Within normal limits. Bones: Within normal limits for the patient's age. Soft Tissues: There is a fat containing right inguinal hernia. Postsurgical changes in the anterior abdominal wall. PELVIS: Bladder: Symmetric distention, no gross wall thickening. Reproductive Organs: Unremarkable as visualized. Lymph Nodes: Within normal limits. Bones: Within normal limits. IMPRESSION: 1. No acute pulmonary process. 2. No acute abdominal or pelvic process. 3. Postsurgical changes seen in the abdomen and pelvis as described. Lab Data Lab results reviewed: Yes I reviewed the patient's lab results. HPI <STEFANO Carrasquillo - Last Filed: 06/17/23 21:36> General Date/Time Provider Initiated Documentation: 06/16/23 14:32 . HPI Narrative: This chronically unwell 78-year-old male with history of cirrhosis, diabetes, endocarditis, chronic anticoagulation, portal hypertension, presents with report of weakness and lightheadedness which started yesterday. He has had approximately 3 falls since yesterday. He denies any current chest pain or shortness of breath. He denies any fever or chills. He has had urinary frequency. He denies any known new medications. Malix through his prior history does of a history of hepatic encephalopathy and urinary tract infection in March. He denies any current alcohol use. He denies any known head injuries with his falls. Looks like he had a TIPS procedure secondary to his cirrhosis, is unclear as to when this was performed. Of note patient denies any loss of consciousness or palpitations. Related Data Home Medications Medication Instructions Recorded Confirmed apixaban 5 mg tablet (Eliquis) 5 mg PO BID 11/08/22 06/16/23 metformin 1,000 mg tablet 1,000 mg PO BID 11/08/22 06/16/23 pantoprazole 40 mg tablet,delayed 40 mg PO DAILY 11/08/22 06/16/23 release prazosin 5 mg capsule 10 mg PO QHS 11/08/22 06/16/23 pregabalin 50 mg capsule 50 mg PO BID 11/08/22 06/16/23 spironolactone 25 mg tablet 25 mg PO QAM 11/08/22 06/16/23 valsartan 40 mg tablet 40 mg PO BID 11/08/22 06/16/23 venlafaxine 150 mg 150 mg PO DAILY 11/08/22 06/16/23 capsule,extended release 24 hr tamsulosin 0.4 mg capsule 0.4 mg PO DAILY 11/29/22 06/16/23 nitroglycerin 0.4 mg sublingual 0.4 mg sublingual Q5 MIN PRN X3 02/10/23 06/16/23 tablet PRN #30 tabs ferrous sulfate 325 mg (65 mg 325 mg PO DAILY 03/08/23 06/16/23 iron) tablet empagliflozin 25 mg tablet 25 mg PO DAILY 04/09/23 06/16/23 furosemide 20 mg tablet (Lasix) 20 mg PO QAM 04/09/23 06/16/23 levothyroxine 200 mcg tablet 100 mcg PO QAM #0 tabs 04/10/23 06/16/23 clobetasol 0.05 % topical cream 1 applic topical DAILY 06/16/23 06/16/23 ergocalciferol (vitamin D2) 1,250 1,250 mcg PO QWEEK 06/16/23 06/16/23 mcg (50,000 unit) capsule miconazole nitrate 2 % topical 1 applic topical BID PRN 06/16/23 06/16/23 powder acetaminophen 325 mg capsule 650 mg PO Q8H PRN #0 caps 06/17/23 06/16/23 (Tylenol) carvedilol 3.125 mg tablet 3.125 mg PO BID #0 tabs 06/17/23 06/16/23 potassium chloride 20 mEq 20 meq PO DAILY #30 tabs 06/17/23 tablet,extended release rifaximin 550 mg tablet (Xifaxan) 550 mg PO BID #14 tabs 06/17/23 Previous Rx's Medication Instructions Recorded nitroglycerin 0.4 mg sublingual 0.4 mg sublingual Q5 MIN PRN X3 02/10/23 tablet PRN #30 tabs levothyroxine 200 mcg tablet 100 mcg PO QAM #0 tabs 04/10/23 acetaminophen 325 mg capsule 650 mg PO Q8H PRN #0 caps 06/17/23 (Tylenol) carvedilol 3.125 mg tablet 3.125 mg PO BID #0 tabs 06/17/23 potassium chloride 20 mEq 20 meq PO DAILY #30 tabs 06/17/23 tablet,extended release rifaximin 550 mg tablet (Xifaxan) 550 mg PO BID #14 tabs 06/17/23 Allergies Allergy/AdvReac Type Severity Reaction Status Date / Time Penicillins Allergy Mild Itching Unverified 06/16/23 14:13 morphine AdvReac Severe vomiting Unverified 06/16/23 14:13 mussels AdvReac Severe vomiting Unverified 06/16/23 14:13 General Stated Complaint: Dizzy/Sync ANNA: 3 PFSH <STEFANO Carrasquillo - Last Filed: 06/17/23 21:36> All Active Problems (Updated 06/17/23 @ 15:51 by Sydni Mckeon NP) Hypokalemia (Acute) Lactic acid acidosis (Acute) UTI (urinary tract infection) (Acute) Fall (Acute) Acute hyperglycemia (Acute) Bradycardia (Acute) Multiple falls (Acute) Anticoagulated (Acute) Acute metabolic encephalopathy (Acute) Encephalopathy, hepatic (Acute) Confusion (Acute) Medication monitoring encounter (Acute) ANETTE (obstructive sleep apnea) (Chronic) Chest pain (Acute) CHF exacerbation (Acute) Depression (Chronic) 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, [facility] as per pt History of colon cancer Palliative care encounter Followed by [facility] Portal hypertension Recurrent intestinal obstruction Scleral icterus Surgical History Colostomy in place H/O left hemicolectomy S/P TIPS (transjugular intrahepatic portosystemic shunt) Social History Smoking/Tobacco Use Status: Former Tobacco Use Smoking risk assessment performed?: Yes Alcohol Intake: former Drug use: Never Substance use type: does not use Housing: house Do you feel safe at home: Yes Do you feel safe in your relationship?: Yes Additional Social history: Lives with , son, and sick [id number] in [place], moved up from [place] in 2019. [place] . Course <STEFANO Carrasquillo - Last Filed: 06/17/23 21:36> Vital Signs Vital signs: Vital Signs Temperature 36.9 C 06/16/23 14:05 Pulse 50 L 06/16/23 14:05 Respiratory Rate 20 06/16/23 14:05 Blood Pressure 163/78 H 06/16/23 14:05 Pulse Oximetry 95 06/16/23 14:05 Temperature 36.9 C 06/16/23 14:05 Temperature Source Oral 06/16/23 14:05 Pulse 51 L 06/16/23 15:01 Pulse 58 L 06/16/23 15:01 Respiratory Rate 16 06/16/23 15:01 Respiratory Effort Normal, Non-Labored 06/16/23 14:16 Respiratory Depth Normal 06/16/23 14:14 Respiratory Pattern Normal 06/16/23 14:14 Blood Pressure 153/76 H 06/16/23 15:01 Blood Pressure Mean 97 06/16/23 15:01 Blood Pressure Position Sitting 06/16/23 14:05 Pulse Oximetry 95 06/16/23 14:05 Oxygen Delivery Method Room Air 06/16/23 14:05 Oxygen Flow Rate 0 06/16/23 14:05 Pain Level 5 06/16/23 14:05 Lab/Test Results Lab/Test Results: 06/16/23 15:09 Blood Blood Culture - Pending 06/16/23 15:09 Blood Blood Culture - Pending 06/16/23 14:30 Urine - Reflex from Ua Urine Culture - Pending Laboratory Tests Range/Units 06/16/23 06/16/23 06/16/23 14:30 14:35 14:35 WBC (4.4-10.8) 10^3/uL RBC (4.36-5.78) 10^6/uL Hgb (13.5-17.5) g/dL Hct (40.0-50.0) % MCV (80-95) fL MCH (27.0-33.0) pg MCHC (32.0-36.0) % RDW (11.8-14.1) % Plt Count (130-400) 10^3/uL MPV (8.0-11.0) fL Immature Gran % Neutrophils % Lymphocytes % Monocytes % Eosinophils % Basophils % Nucleated RBC % (0.0-0.3) % Absolute Neutrophils (1.2-6.7) 10^3/uL Absolute Lymphocytes (1.2-3.4) 10^3/uL Absolute Monocytes (0.1-0.8) 10^3/uL Absolute Eosinophils (0.0-0.7) 10^3/uL Absolute Basophils (0.0-0.2) 10^3/uL VBG Lactate (0.6-1.4) mmol/L 4.6 H* Sodium (136-145) mmol/L 140 Potassium (3.5-5.1) mmol/L 3.8 Chloride (98-107) mmol/L 105 Carbon Dioxide (21.0-32.0) mmol/L 22.8 Anion Gap (3-11) mmol/L 12.2 H BUN (7-18) mg/dL 12 Creatinine (0.70-1.30) mg/dL 1.1 Est GFR (CKD-EPI 2020) (mL/min/1.73m2) 69.57 Glucose (74-106) mg/dL 315 H Calcium (8.5-10.1) mg/dL 9.3 Magnesium (1.8-2.4) mg/dL 1.8 Total Bilirubin (0.2-1.0) mg/dL 2.3 H AST (15-37) U/L 29 ALT (16-63) U/L 17 Alkaline Phosphatase (46-116) U/L 151 H Troponin I (<or=60) ng/L < 50 Total Protein (6.4-8.2) g/dL 7.2 Albumin (3.4-5.0) g/dL 2.9 L Procalcitonin ng/mL TSH (0.36-3.74) uIU/mL 28.65 H Urine Color (Yellow) Yellow Urine Clarity (Clear) Clear Urine pH (5-8) 5.5 Ur Specific [place] (1.005-1.025) 1.010 Urine Protein (Negative) mg/dL Negative Urine Ketones (Negative) mg/dL Negative Urine Blood (Negative) Small H Urine Nitrite (Negative) Negative Urine Bilirubin (Negative) Negative Urine Urobilinogen (Up to 0.2) mg/dL 0.2 Ur Leukocyte Esterase (Negative) Small H Urine RBC (0-2) HPF 5-10 H Urine WBC (0-5) HPF 5-10 Ur Epithelial Cells (Negative) HPF Rare Urine Crystals (Negative) HPF Negative Urine Bacteria (Negative) HPF Moderate Urine Casts (Negative) LPF Negative Urine Mucus (Negative) Negative Ur Culture Indicated? Yes Urine Glucose (Negative) mg/dL >=1000 H Range/Units 06/16/23 06/16/23 14:35 14:35 WBC (4.4-10.8) 10^3/uL 7.04 RBC (4.36-5.78) 10^6/uL 5.43 Hgb (13.5-17.5) g/dL 15.6 Hct (40.0-50.0) % 45.9 MCV (80-95) fL 85 MCH (27.0-33.0) pg 28.7 MCHC (32.0-36.0) % 34.0 RDW (11.8-14.1) % 17.2 H Plt Count (130-400) 10^3/uL 161 MPV (8.0-11.0) fL 10.9 Immature Gran % 0.3 Neutrophils % 66.0 Lymphocytes % 18.9 Monocytes % 8.8 Eosinophils % 5.1 Basophils % 0.9 Nucleated RBC % (0.0-0.3) % 0.0 Absolute Neutrophils (1.2-6.7) 10^3/uL 4.65 Absolute Lymphocytes (1.2-3.4) 10^3/uL 1.33 Absolute Monocytes (0.1-0.8) 10^3/uL 0.62 Absolute Eosinophils (0.0-0.7) 10^3/uL 0.36 Absolute Basophils (0.0-0.2) 10^3/uL 0.06 VBG Lactate (0.6-1.4) mmol/L Sodium (136-145) mmol/L Potassium (3.5-5.1) mmol/L Chloride (98-107) mmol/L Carbon Dioxide (21.0-32.0) mmol/L Anion Gap (3-11) mmol/L BUN (7-18) mg/dL Creatinine (0.70-1.30) mg/dL Est GFR (CKD-EPI 2020) (mL/min/1.73m2) Glucose (74-106) mg/dL Calcium (8.5-10.1) mg/dL Magnesium (1.8-2.4) mg/dL Total Bilirubin (0.2-1.0) mg/dL AST (15-37) U/L ALT (16-63) U/L Alkaline Phosphatase (46-116) U/L Troponin I (<or=60) ng/L Total Protein (6.4-8.2) g/dL Albumin (3.4-5.0) g/dL Procalcitonin ng/mL < 0.1 TSH (0.36-3.74) uIU/mL Urine Color (Yellow) Urine Clarity (Clear) Urine pH (5-8) Ur Specific [place] (1.005-1.025) Urine Protein (Negative) mg/dL Urine Ketones (Negative) mg/dL Urine Blood (Negative) Urine Nitrite (Negative) Urine Bilirubin (Negative) Urine Urobilinogen (Up to 0.2) mg/dL Ur Leukocyte Esterase (Negative) Urine RBC (0-2) HPF Urine WBC (0-5) HPF Ur Epithelial Cells (Negative) HPF Urine Crystals (Negative) HPF Urine Bacteria (Negative) HPF Urine Casts (Negative) LPF Urine Mucus (Negative) Ur Culture Indicated? Urine Glucose (Negative) mg/dL Sign Out <STEFANO Carrasquillo - Last Filed: 06/17/23 21:36> Sign Out Data: Sign Out Comment: pending ammonia, vbg, ct's and likely admission Last updated by Irina Petersen PA at 06/16/23 15:46
[2023-06-16] MEDS: Normal Saline - Diluent 50 ML VIAL IJ (15:47)
[2023-06-16] MEDS: Omnipaque 350 MG/ML 100 ML BTL IJ (15:47)
[2023-06-16] MEDS: Normal Saline Flush 10 ML SYR IVP (15:48)
[2023-06-16 16:01] LABS: BE (Venous) 1 mmol/L (-2-3); HCO3 (Venous) 26 mmol/L (23-28); O2 Sat (Venous) 54 %; TCO2 (Venous) 23 mmol/L (24-29); pCO2 (Venous) 45 mmHg (41-51); pH (Venous) 7.37 (7.31-7.41); pO2 (Venous) 31 mmHg
[2023-06-16 16:31] LABS: Ammonia 84 umol/L (11-32)
--- NOTE | 2023-06-16 18:19 | W.PM.HP.N ---
Date of service: 06/16/23 Time of Service: 18:00 Assessment and Plan Assessment and plan (1) Fall: Status: Deleted Assessment and plan: States he is off balance and falls alot - will get PT consult (2) UTI (urinary tract infection): Status: Resolved Assessment and plan: Ceftriaxone, UCx pending (3) Lactic acid acidosis: Status: Resolved Assessment and plan: Elevated lactate, trend, IVF LR @ 150 ml/h (4) Hypertension: Status: Chronic Assessment and plan: Continue Valsartan, Carvedilol, (5) Non-insulin dependent type 2 diabetes mellitus: Status: Chronic Assessment and plan: chronic - on metformin Hold metformin and start SS insulin ordered while in hospital Glucose on arrival in ED (6) Incontinence: Status: Chronic Assessment and plan: Change frequently, keep skin clean and dry (7) Depression: Status: Chronic Assessment and plan: Stable - Continue Venlafaxine (8) Colon cancer: Assessment and plan: Colon cancer he reports in his 40's - has colostomy - is independent in managing it; states only bloody when his stoma is irritated (9) DVT prophylaxis: Status: Deleted Assessment and plan: On Apixaban for AFib chronically (10) Bradycardia: Status: Acute Assessment and plan: EKG, sinus vicki Telemetry, monitor (11) ANETTE (obstructive sleep apnea): Status: Chronic Assessment and plan: CPAP from home (12) Discharge planning issues: Status: Acute Assessment and plan: Patient has home health PT and OT currently - Home with HH He [facility] Discussed with Dr Burton History of Present Illness History of Present Illness Chief Complaint: Falls Narrative: This is a 78-year-old male patient with multiple comorbidities including CHF, depression, vec-[id number] diabetes, hepatic encephalopathy, confusion, AFib - chronically anticoagulated, status post TIPS procedure who presented to the [facility] ED with complaint of weakness and falls x 3 in the past 2 days.? States he falls frequently but was feeling improved after his admission and discharge in March.? Denies any known head injury or loss of consciousness associated with these falls.?He did not have any chest pain or shortness of breath or palpitations prior to the falls. He denied recent cold symptoms, fever, chills and mailaise.. In the ED urinalysis showed 5-10 white blood cells and moderate bacteria. He was given 2 gm of Ceftriaxone. He is not experiencing orthostatic hypotension, he has an EKG that shows bradycardia with first-degree AV block, he does have bigeminy and very mild prolongation of his QTc. CT imaging of head, chest, abdomen, ?with no acute findings.? Ammonia is elevated at 84.? Due to elevated ammonia level, patient confused, anticoagulated and having multiple falls patient is admitted to the medical floor for further testing and treatment. Patient was given 40 mg of lactulose Review of Systems All systems reviewed & are unremarkable except as noted in HPI and below PFSH All Active Problems (Updated 06/19/23 @ 09:24 by Sydni Mckeon NP) Discharge planning issues (Acute) Hypokalemia (Acute) Acute hyperglycemia (Acute) Bradycardia (Acute) Multiple falls (Acute) Anticoagulated (Acute) Acute metabolic encephalopathy (Acute) Encephalopathy, hepatic (Acute) Confusion (Acute) Medication monitoring encounter (Acute) ANETTE (obstructive sleep apnea) (Chronic) Chest pain (Acute) CHF exacerbation (Acute) Depression (Chronic) Non-insulin dependent type 2 diabetes mellitus (Chronic) Incontinence (Chronic) Hypertension (Chronic) CHF (congestive heart failure) (Chronic) Medical History Chronic anticoagulation Chronic low back pain Cirrhosis TIPs placed ([place], [facility] 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, Dx [facility] as per pt History of colon cancer Palliative care encounter Followed by [facility] Portal hypertension Recurrent intestinal obstruction Scleral icterus Surgical History Colostomy in place H/O left hemicolectomy S/P TIPS (transjugular intrahepatic portosystemic shunt) Social History Smoking/Tobacco Use Status: Former Tobacco Use Smoking risk assessment performed?: Yes Alcohol Intake: former Drug use: Never Substance use type: does not use Housing: house Do you feel safe at home: Yes Do you feel safe in your relationship?: Yes Additional Social history: Lives with , son, and sick [id number] in [place], moved up from [place] in 2019. [place] . Meds Allergies and Home Medications Allergies Allergy/AdvReac Type Severity Reaction Status Date / Time Penicillins Allergy Mild Itching Unverified 06/16/23 14:13 morphine AdvReac Severe vomiting Unverified 06/16/23 14:13 mussels AdvReac Severe vomiting Unverified 06/16/23 14:13 Home Medications Medication Instructions Recorded Confirmed Type apixaban 5 mg tablet (Eliquis) 5 mg PO BID 11/08/22 06/16/23 History metformin 1,000 mg tablet 1,000 mg PO BID 11/08/22 06/16/23 History pantoprazole 40 mg tablet,delayed 40 mg PO DAILY 11/08/22 06/16/23 History release prazosin 5 mg capsule 10 mg PO QHS 11/08/22 06/16/23 History pregabalin 50 mg capsule 50 mg PO BID 11/08/22 06/16/23 History spironolactone 25 mg tablet 25 mg PO QAM 11/08/22 06/16/23 History valsartan 40 mg tablet 40 mg PO BID 11/08/22 06/16/23 History venlafaxine 150 mg 150 mg PO DAILY 11/08/22 06/16/23 History capsule,extended release 24 hr tamsulosin 0.4 mg capsule 0.4 mg PO DAILY 11/29/22 06/16/23 History nitroglycerin 0.4 mg sublingual 0.4 mg sublingual Q5 MIN PRN X3 02/10/23 06/16/23 Rx tablet PRN #30 tabs ferrous sulfate 325 mg (65 mg 325 mg PO DAILY 03/08/23 06/16/23 History iron) tablet empagliflozin 25 mg tablet 25 mg PO DAILY 04/09/23 06/16/23 History furosemide 20 mg tablet (Lasix) 20 mg PO QAM 04/09/23 06/16/23 History levothyroxine 200 mcg tablet 100 mcg PO QAM #0 tabs 04/10/23 06/16/23 Rx clobetasol 0.05 % topical cream 1 applic topical DAILY 06/16/23 06/16/23 History ergocalciferol (vitamin D2) 1,250 1,250 mcg PO QWEEK 06/16/23 06/16/23 History mcg (50,000 unit) capsule miconazole nitrate 2 % topical 1 applic topical BID PRN 06/16/23 06/16/23 History powder acetaminophen 325 mg capsule 650 mg PO Q8H PRN #0 caps 06/17/23 06/16/23 Rx (Tylenol) carvedilol 3.125 mg tablet 3.125 mg PO BID #0 tabs 06/17/23 06/16/23 Rx potassium chloride 20 mEq 20 meq PO DAILY #30 tabs 06/17/23 Rx tablet,extended release rifaximin 550 mg tablet (Xifaxan) 550 mg PO BID #14 tabs 06/17/23 Rx Exam Narrative Exam Narrative: General: alert, awake, cooperative, appears moderately comfortable HEENT: normocephalic, atraumatic; PERRL, EOM intact, conjunctiva normal; no nasal discharge; moist mucous membranes, oral and pharyngeal mucosa normal, tolerating secretions Neck: supple, trachea midline; full ROM Chest: normal to inspection Respiratory: normal respiratory effort, speaking in full sentences, clear to auscultation, no wheezing, rales or rhonchi Cardiac: regular rate, regular rhythm, S1S2 intact, no murmurs rubs or gallops GI: abdomen soft, mild distention, nonperitoneal Skin: no lesions, rashes or trauma appreciated Neuro: AAOx3, normal speech, moving all extremities Psych: Appropriate mood and affect Results Labs 06/17/23 06:58 06/17/23 06:58 Labs: Laboratory Results - last 24 hr 06/16/23 06/16/23 06/16/23 14:30 14:35 14:35 WBC RBC Hgb Hct MCV MCH MCHC RDW Plt Count MPV Immature Gran % Neutrophils % Lymphocytes % Monocytes % Eosinophils % Basophils % Nucleated RBC % Absolute Neutrophils Absolute Lymphocytes Absolute Monocytes Absolute Eosinophils Absolute Basophils VBG pH VBG pCO2 VBG pO2 VBG HCO3 VBG Total CO2 VBG O2 Saturation VBG Base Excess VBG Lactate 4.6 H* Sodium 140 Potassium 3.8 Chloride 105 Carbon Dioxide 22.8 Anion Gap 12.2 H BUN 12 Creatinine 1.1 Est GFR (CKD-EPI 2020) 69.57 Glucose 315 H Calcium 9.3 Magnesium 1.8 Total Bilirubin 2.3 H AST 29 ALT 17 Alkaline Phosphatase 151 H Ammonia Troponin I < 50 Total Protein 7.2 Albumin 2.9 L Procalcitonin TSH 28.65 H Free T4 Urine Color Yellow Urine Clarity Clear Urine pH 5.5 Ur Specific [place] 1.010 Urine Protein Negative Urine Ketones Negative Urine Blood Small H Urine Nitrite Negative Urine Bilirubin Negative Urine Urobilinogen 0.2 Ur Leukocyte Esterase Small H Urine RBC 5-10 H Urine WBC 5-10 Ur Epithelial Cells Rare Urine Crystals Negative Urine Bacteria Moderate Urine Casts Negative Urine Mucus Negative Ur Culture Indicated? Yes Urine Glucose >=1000 H 06/16/23 06/16/23 06/16/23 14:35 14:35 15:50 WBC 7.04 RBC 5.43 Hgb 15.6 Hct 45.9 MCV 85 MCH 28.7 MCHC 34.0 RDW 17.2 H Plt Count 161 MPV 10.9 Immature Gran % 0.3 Neutrophils % 66.0 Lymphocytes % 18.9 Monocytes % 8.8 Eosinophils % 5.1 Basophils % 0.9 Nucleated RBC % 0.0 Absolute Neutrophils 4.65 Absolute Lymphocytes 1.33 Absolute Monocytes 0.62 Absolute Eosinophils 0.36 Absolute Basophils 0.06 VBG pH VBG pCO2 VBG pO2 VBG HCO3 VBG Total CO2 VBG O2 Saturation VBG Base Excess VBG Lactate Sodium Potassium Chloride Carbon Dioxide Anion Gap BUN Creatinine Est GFR (CKD-EPI 2020) Glucose Calcium Magnesium Total Bilirubin AST ALT Alkaline Phosphatase Ammonia Troponin I Total Protein Albumin Procalcitonin < 0.1 TSH Free T4 1.40 Urine Color Urine Clarity Urine pH Ur Specific [place] Urine Protein Urine Ketones Urine Blood Urine Nitrite Urine Bilirubin Urine Urobilinogen Ur Leukocyte Esterase Urine RBC Urine WBC Ur Epithelial Cells Urine Crystals Urine Bacteria Urine Casts Urine Mucus Ur Culture Indicated? Urine Glucose 06/16/23 06/16/23 06/16/23 15:50 15:50 20:10 WBC RBC Hgb Hct MCV MCH MCHC RDW Plt Count MPV Immature Gran % Neutrophils % Lymphocytes % Monocytes % Eosinophils % Basophils % Nucleated RBC % Absolute Neutrophils Absolute Lymphocytes Absolute Monocytes Absolute Eosinophils Absolute Basophils VBG pH 7.37 VBG pCO2 45 VBG pO2 31 VBG HCO3 26 VBG Total CO2 23 L VBG O2 Saturation 54 VBG Base Excess 1 VBG Lactate Sodium Potassium Chloride Carbon Dioxide Anion Gap BUN Creatinine Est GFR (CKD-EPI 2020) Glucose Calcium Magnesium Total Bilirubin AST ALT Alkaline Phosphatase Ammonia 84 H Troponin I < 50 Total Protein Albumin Procalcitonin TSH Free T4 Urine Color Urine Clarity Urine pH Ur Specific [place] Urine Protein Urine Ketones Urine Blood Urine Nitrite Urine Bilirubin Urine Urobilinogen Ur Leukocyte Esterase Urine RBC Urine WBC Ur Epithelial Cells Urine Crystals Urine Bacteria Urine Casts Urine Mucus Ur Culture Indicated? Urine Glucose 06/16/23 06/16/23 20:16 20:16 WBC RBC Hgb Hct MCV MCH MCHC RDW Plt Count MPV Immature Gran % Neutrophils % Lymphocytes % Monocytes % Eosinophils % Basophils % Nucleated RBC % Absolute Neutrophils Absolute Lymphocytes Absolute Monocytes Absolute Eosinophils Absolute Basophils VBG pH VBG pCO2 VBG pO2 VBG HCO3 VBG Total CO2 VBG O2 Saturation VBG Base Excess VBG Lactate 3.2 H* Sodium Potassium Chloride Carbon Dioxide Anion Gap BUN Creatinine Est GFR (CKD-EPI 2020) Glucose Calcium Magnesium Total Bilirubin AST ALT Alkaline Phosphatase Ammonia 112 H Troponin I Total Protein Albumin Procalcitonin TSH Free T4 Urine Color Urine Clarity Urine pH Ur Specific [place] Urine Protein Urine Ketones Urine Blood Urine Nitrite Urine Bilirubin Urine Urobilinogen Ur Leukocyte Esterase Urine RBC Urine WBC Ur Epithelial Cells Urine Crystals Urine Bacteria Urine Casts Urine Mucus Ur Culture Indicated? Urine Glucose Last Vital Signs Temp 36.3 C L 06/16/23 19:32 Pulse 58 L 06/16/23 19:32 Resp 16 06/16/23 19:32 BP 178/87 H 06/16/23 19:32 Pulse Ox 95 06/16/23 19:32 Time Spent Time spent with Patient: 55-74 minutes Time was spent: preparing to see the patient(eg.review tests), ordering medications,tests, procedures, referring, communicating with other health wound care center consultant, indepentently interpreting results, counseling the patient and care coordination
--- NOTE | 2023-06-16 18:55 | NUR.NOTE ---
Nursing Note: Changed pt colostomy bag, stoma appears healthy.
[2023-06-16] MEDS: Lactulose 20 GM/30 ML CUP 40 GM PO (20:00)
[2023-06-16] MEDS: Valsartan 40 MG TAB PO (20:08)
[2023-06-16] MEDS: Apixaban 5 MG TAB PO (20:08)
[2023-06-16] MEDS: Pregabalin 50 MG CAP PO (20:08)
[2023-06-16] MEDS: Lactulose 20 GM/30 ML CUP 30 GM PO (20:09)
[2023-06-16] MEDS: Lactated Ringers 1,000 ML 150 ML IV (20:14)
[2023-06-16 20:28] LABS: Lactate 3.2 mmol/L (0.6-1.4)
[2023-06-16 20:38] LABS: Ammonia 112 umol/L (11-32)
[2023-06-16 20:44] LABS: Troponin I < 50 ng/L (<or=60)
[2023-06-16] MEDS: Prazosin 5 MG CAP 10 MG PO (21:47)
[2023-06-16] MEDS: Carvedilol 3.125 MG TAB 6.25 MG PO (21:48)
--- NOTE | 2023-06-17 | DI.RAD_ITS ---
Exam(s) XR SHOULDER LT COMPLETE 2+V EXAM: XR SHOULDER LT COMPLETE 2+V CLINICAL HISTORY: Left shoulder pain, decreased ROM, no acute injury. TECHNIQUE: 2D digital imaging was performed. COMPARISON: CR XR SHOULDER LT COMPLETE 2+V from 11/29/2022 FINDINGS: Four views. No evidence of acute fracture or dislocation nor diminution of the subacromial space. No abnormal so ft tissue calcifications. There are some degenerative changes in the humeral head noted. [place] al joint otherwise appears unremarkable as does the AC joint. IMPRESSION: Minimal osseous findings as described above. DATA REPOSITORY: RADIATION DOSE DELIVERED:
[2023-06-17 02:29] LABS: Lactate 2.6 mmol/L (0.6-1.4)
[2023-06-17 02:44] LABS: Ammonia 133 umol/L (11-32)
[2023-06-17 04:03] VITALS: BP 133/66; PULSE 60; RESP 18; TEMP 36; O2SAT 90
[2023-06-17] MEDS: Lactulose 20 GM/30 ML CUP 30 GM PO ×3 (04:04→16:11)
[2023-06-17] MEDS: Levothyroxine 200 MCG TAB 100 MCG PO (07:06)
[2023-06-17 07:08] LABS: Abs Immature Grans 0.01 10^3/uL (0.0-0.06); Absolute Basophil Count 0.04 10^3/uL (0.0-0.2); Absolute Eosinophil Count 0.27 10^3/uL (0.0-0.7); Absolute Lymphocyte Count 1.06 10^3/uL (1.2-3.4); Absolute Monocyte Count 0.57 10^3/uL (0.1-0.8); Absolute Neutrophil Count 2.86 10^3/uL (1.2-6.7); Basophils % 0.8; Eosinophils % 5.6; HCT 41.3 % (40.0-50.0); HGB 13.6 g/dL (13.5-17.5); Immature Grans % 0.2; MCH 28.2 pg (27.0-33.0); MCHC 32.9 % (32.0-36.0); MCV 86 fL (80-95); MPV 11.1 fL (8.0-11.0); Monocytes % 11.9; Neutrophils % 59.5; Platelet Count 109 10^3/uL (130-400); RBC 4.82 10^6/uL (4.36-5.78); RDW 17.4 % (11.8-14.1); RDW-SD 54.6 fL; WBC 4.81 10^3/uL (4.4-10.8)
[2023-06-17 07:28] VITALS: BP 111/69; PULSE 64; RESP 18; TEMP 36; O2SAT 92
[2023-06-17 07:32] LABS: ALT 11 U/L (16-63); AST 25 U/L (15-37); Albumin 2.4 g/dL (3.4-5.0); Alkaline Phosphatase 121 U/L (46-116); Anion Gap 11.1 mmol/L (3-11); BUN 16 mg/dL (7-18); Bilirubin, Total 1.5 mg/dL (0.2-1.0); CO2 23.9 mmol/L (21.0-32.0); CREATININE 1.1 mg/dL (0.70-1.30); Chloride 108 mmol/L (98-107); Estimated GFR 69.57 (mL/min/1.73m2); Glucose 214 mg/dL (74-106); Magnesium 1.8 mg/dL (1.8-2.4); Potassium 3.4 mmol/L (3.5-5.1); Sodium 143 mmol/L (136-145)
--- NOTE | 2023-06-17 07:35 | OTIE_ITS ---
Occupational Therapy Notes Inpatient Occupational Therapy Evaluation Date: 06/17/23 Referring Doctor:Sydni Mckeon NP OT Orders: Non urgent Precautions: Fall, standard, full PATIENT PROFILE/ADMITTING DIAGNOSIS: Pt presented to the ED on 06/16/23 with a clinical impression of Encephalopathy, hepatic, Confusion, Acute hyperglycemia, Bradycardia, Multiple falls, Anticoagulated. He was admitted to [facility] with the following dx of frequent falls, UTI, lactic acid acidosis, HTN, DM II, incontinence, colon cancer, bradycardia, ANETTE. 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 Chronic anticoagulation Chronic low back pain Cirrhosis TIPs placed (?when, [facility] [facility]?)Colon cancer Confusion [facility] Endocarditis September 2022, [facility] ptHistory of colon cancer Palliative care [place] [facility] [place] intestinal obstruction Scleral icterus Surgical History? Colostomy in place H/O left hemicolectomy S/P TIPS (transjugular intrahepatic portosystemic shunt) Social History/Home Situation: Lives with , son, and sick [id number] in [place], moved up from [place] in 2019.? [place].?Pt currently is receiving PT/OT HH services. Pt reports that he is (I) at his baseline, he notes that his (L) shoulder has been limiting him for months post a fall so his dressing routine has been limited. Equipment owned/DME: 4WW, cane, shower seat, grab bars SUBJECTIVE: Pt was lying in bed when OT arrived. He states that he is receptive to OT services and notes that his (L) shoulder is really sore and limits him. 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 He is limited d/t the ROM of his (L) shoulder. DRESSING Dressing UE OT educated and trained pt in the in first and out last technique for don and doffing a shirt to decrease strain and pain on his (L) shoulder. GROOMING Able to touch top of head and mouth with (R) UE . TOILETING NT EATING (I) with use of his (R) hand. unable to place (L) on table d/t pain BALANCE: Static sitting Normal Dynamic Sitting Normal SPECIAL TESTS: Daily Activity Limitations Standardized Measure [facility] AM -PAC ?6 clicks? Daily Activity Inpatient Short Form: Raw score: 17 Standardized score: 37.26 CMS score: 50.11% INFORMED CONSENT/EDUCATION: Pt instructed in purpose of OT Consult and plan of care. ASSESSMENT: Patient is a 78-year-old female referred to occupational therapy services with diagnosis of dx of frequent falls, UTI, lactic acid acidosis, HTN, DM II, incontinence, colon cancer, bradycardia, ANETTE. Patient presents with clinical signs and symptoms consistent with dx, as demonstrated by the following impairment level findings/functional limitations: Impairments in ADL/IADL and leisure activities, decreased (L) shoulder ROM, increased (L) shoulder pain, decreased gross motor control of (L) UE. Impairments in dressing and bathing with (L) UE, decreased functional activity tolerance, decreased functional mobility required for ADL performance. AMPAC score 17 Patient is assessed as a Moderate 79664 complexity based on the following: History: see above Examination: see functional limitations as noted above Presentation: evolving Decision Making: AMPAC score 17 GOALS Goals x1 week 1. Grooming- standing at sink (I) with oral hygiene 2. Dressing seated (I) 3. Bathing seated in chair (I) 4. Toileting on toilet (I) 5. Eating (I) in seated position PLAN OF CARE/TREATMENT PLAN: 1x/day, 5 days/ week x 1week Initiate Occupational Therapy Services for bathing, dressing, grooming, to ileting, eating, transfer training. DISCHARGE RECOMMENDATIONS OT recommends that pt return home with services when medically cleared per MD. TREATMENT TIME/MINUTES/CODES 04906, [id number], 25 minutes Verna Melendez OTR/L [facility]
[2023-06-17 07:46] LABS: Ammonia 101 umol/L (11-32)
[2023-06-17 07:58] VITALS: PULSE 57
[2023-06-17] MEDS: Spironolactone 25 MG TAB PO (08:38)
[2023-06-17] MEDS: Tamsulosin 0.4 MG CAPCR PO (08:38)
[2023-06-17] MEDS: Valsartan 40 MG TAB PO (08:38)
[2023-06-17] MEDS: Apixaban 5 MG TAB PO (08:38)
[2023-06-17] MEDS: Pantoprazole 40 MG TABCR PO (08:38)
[2023-06-17] MEDS: Ferrous Sulfate 325 MG TAB PO (08:38)
[2023-06-17] MEDS: Acetaminophen 325 MG TAB PO ×2 (08:38→14:29)
[2023-06-17] MEDS: Venlafaxine 150 MG CAPCR PO (08:38)
[2023-06-17] MEDS: Carvedilol 6.25 MG TAB PO (08:39)
[2023-06-17] MEDS: Insulin Aspart 300 UNITS/3 ML PEN SC ×2 (08:39→11:56)
[2023-06-17] MEDS: Furosemide 20 MG TAB PO (08:39)
[2023-06-17] MEDS: Pregabalin 50 MG CAP PO (08:39)
[2023-06-17] MEDS: Normal Saline 500 ML 100 ML IV (08:41)
[2023-06-17] MEDS: Normal Saline Flush 10 ML SYR IVP (08:42)
[2023-06-17] MEDS: cefTRIAXone 2 GM/50 ML BAG IVPB (08:42)
[2023-06-17 09:40] VITALS: BP 108/66; PULSE 52
--- NOTE | 2023-06-17 10:00 | INITIAL_ITS ---
Date of service: 06/17/23 Time of Service: 10:00 Care Management Initial Assmt Initial Assessment REASON FOR HOSPITALIZATION:: Dehydration, ambulatory dysfunction PREVIOUS FUNCTIONAL STATUS/SOCIAL/FAMILY SUPPORTS:: Merrill lives in [place] with his , Clayr, his son Osmar Gibson who is disabled, and his [id number] Fuad who has stage IV lung cancer. 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 He is an [employer] and is 100% [facility] connected. He is independent with his ADLs at baseline. ADVANCE DIRECTIVES:: None on file. Has patient been provided with info about the portal/API?: Yes Did the patient sign up for the portal?: No CODE STATUS:: Full Code INSURANCE COVERAGE / FINANCIAL ISSUES:: [facility] CURRENT HOME/COMMUNITY SERVICES/EQUIPMENT:: Chronic Colostomy; self managed. Home health through [facility] - RN, PT and OT PRIMARY CARE PHYSICIAN:: Maryann Whitt POTENTIAL DISCHARGE NEEDS:: Follow up with PCP and plan of care PATIENT/FAMILY EDUCATION NEEDS:: Review discharge instructions, discuss Ask Me Three. ANTICIPATED BARRIERS TO DISCHARGE:: None identified at this time. TRANSPORTATION:: Via private vehicle. PLAN:: Osmar will likely discharge home with recommendations for home health services provided by [facility] but covered by the [facility]. He will follow up with his community providers and plan of care and transport with family. Pharmacy to release medications for five days; CM reviewed discharge planning considerations with RN CM at [place]: [place]. [facility] All Active Problems (Updated 06/17/23 @ 15:51 by Sydni Mckeon NP) Hypokalemia (Acute) Lactic acid acidosis (Acute) UTI (urinary tract infection) (Acute) Fall (Acute) Acute hyperglycemia (Acute) Bradycardia (Acute) Multiple falls (Acute) Anticoagulated (Acute) Acute metabolic encephalopathy (Acute) Encephalopathy, hepatic (Acute) Confusion (Acute) Medication monitoring encounter (Acute) ANETTE (obstructive sleep apnea) (Chronic) Chest pain (Acute) CHF exacerbation (Acute) Depression (Chronic) Non-insulin dependent type 2 diabetes mellitus (Chronic) Incontinence (Chronic) Hypertension (Chronic) CHF (congestive heart failure) (Chronic) Medical History Chronic anticoagulation Chronic low back pain Cirrhosis TIPs placed ([place] [facility] 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, Dx [facility] as per pt History of colon cancer Palliative care encounter Followed by [facility] Portal hypertension Recurrent intestinal obstruction Scleral icterus Surgical History Colostomy in place H/O left hemicolectomy S/P TIPS (transjugular intrahepatic portosystemic shunt) Social History Smoking/Tobacco Use Status: Former Tobacco Use Smoking risk assessment performed?: Yes Alcohol Intake: former Drug use: Never Substance use type: does not use Housing: house Do you feel safe at home: Yes Do you feel safe in your relationship?: Yes Additional Social history: Lives with , son, and sick [id number] in [place], moved up from [place] in 2019. [place].
[2023-06-17 10:58] VITALS: BP 133/71; PULSE 48; RESP 16; TEMP 35.5; O2SAT 92
[2023-06-17 13:26] LABS: Ammonia 55 umol/L (11-32)
--- NOTE | 2023-06-17 14:32 | IN_ITS ---
PT Notes Visit Reasons: Dehydration,Hepatic Encephalopathy,Ambulatory Dysf Physical Therapy Inpatient Initial Evaluation Date: 06/17/2023 Referring Doctor: Sydni Mckeon NP PT Orders: PT CONSULT: Eval/Treat Precautions: Fall. Standard. Activity as tolerated. Patient Profile/Admitting Diagnosis:? Osmar is a 78-year-old male with diagnoses of repeated falls, urinary tract infection, lactic acidosis, hypertension, NIDDM, incontinence, depression, history of colon cancer with colostomy in place, bradycardia, and ANETTE admitted for management of congestive heart failure, chest pain, hypertension, NIDDM, incontinence, fall, depression, and colon cancer. Per charge nurse Cynthia patient reported pain in L shoulder that limits his ability to perfrom mobility tasks. 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 Chronic anticoagulation Chronic low back pain Cirrhosis TIPs placed (?when, [facility]?)Colon cancer Confusion COVID Endocarditis September 2022, Dx [facility] as per ptHistory of colon cancer Palliative care encounter Followed by [facility] Recurrent intestinal obstruction Scleral icterus Surgical History? Colostomy in place H/O left hemicolectomy S/P TIPS (transjugular intrahepatic portosystemic shunt) Social History/Home Situation: Osmar lives with and son in a private home with 3 steps to enter with rails on both sides.? has not been doing well herself and cannot help patient physically.? Son may be available as needed during the day. Equipment Owned/DME: 4WW, FWW, SPC Subjective: Reported pain in L shoulder at 10/10 with elevation and outward rotation. Feels it is arthritis as he has had it for quite a while. Indicated that he has fallen more than 5 times in the past year. Adds that his back has been practically [facility] that [facility] not [facility]. Objective: General Observation: Supine in bed, telemetry monitoring in place. Mildly swollen left anterior shoulder area. Mental Status: Alert and oriented as to person, place, time, and purpose. Able to pay attention, focus, and respond appropriately. Pain: 10/10 with shoulder elevation above 90 degrees and with shoulder external rotation Vital Signs: Closley monitored by nursing staff ROM: Right Upper Extremity: ? Shoulder Flexion WFL. Shoulder abduction WFL. Elbow flexion WFL. Wrist flexion WFL. Functional opening and closing of hand WFL. Left Upper Extremity:? Shoulder Flexion up to about 100 degrees with pain at 10/10 at end range. Shoulder abduction limited to 90 degrees with pain at end of range. Shoulder external rotation 30 degrees with pain at end of range. Elbow flexion WFL. Wrist flexion WFL. Functional opening and closing of hand WFL. PASSIVELY limited with flexion, eternal rotation and extension with muscle guarding and tenderness palpated through anterior joint line. Right Lower Extremity: Hip flexion WFL. Hip abduction WFL. Knee flexion WFL. Ankle dorsiflexion WFL. Ankle plantarflexion WFL. Left Lower Extremity: Hip flexion lacks the last 50% of available active range. Hip abduction WFL. Knee flexion WFL. Ankle dorsiflexion WFL. Ankle plantarflexion WFL. Strength: Right Upper Extremity: Shoulder flexors 4/5. Shoulder abductors 4/5. Elbow flexors 5/5. Elbow extensors 5/5. Him Clerk strong. Left Upper Extremity: Shoulder flexors 3-/5. Shoulder abductors 3-/5. Elbow flexors 5/5. Elbow extensors 5/5. Him Clerk strong. Right Lower Extremity: Hip flexors 4/5. Hip abductors 4/5. Knee flexors 5/5. Knee extensors 4/5. Ankle dorsiflexors 4/5. Ankle plantarflexors 5/5. Left Lower Extremity: Hip flexors 3-/5. Hip abductors 3-/5. Knee flexors 4-/5. Knee extensors 4-/5. Ankle dorsiflexors 4-/5. Ankle plantarflexors 4-/5. Bed Mobility/Transfers: Supine to sit contact guard assist Sit to supine contact guard assist Sit to stand contact-guard assist Stand to sit contact guard assist Gait: Instructed patient with level surface ambulation of 100 feet requiring standby assist with decreased pain report in the low back and the left shoulder. Unqiue decreased.? Happy about being able to walk three times the length of the distance he does at home. Balance: Static Sitting: Normal Dynamic Sitting: Normal Static Standing: Fair Dynamic Standing: Fair Special Tests: Mobility Limitations Standardized Measure [facility] 6 clicks Basic Mobility Inpatient Short Form: Raw Score: 18? CMS Score: 47% deficit? ? ? 4-Stage Balance test: Unable to maintain feet together, semi-tandem, full tandem, and one-legged stance for 10 seconds. Informed Consent/Education:? Patient was instructed in purpose of PT consult and plan of care. Agreeable to proceed with established PT POC to achieve personal goals. ASSESSMENT: Patient has had left shoulder pain for several months now but pain intensity has increased and with his recent number of falls may have been aggravated. Low back pain with radicuopathy has been a chronic issue which increase risk for falls. L shoulder AROM for flexion and ER on the L shoulder significantly limi link with pain, tenderness, and guarding noted in the anterior joint line. [employer] Sydni apprised and looking at imaging the area. Emphasized the use of FWW at home to off-load back, add stability, nd reduce fall risk. Patient presents with clinical signs and symptoms consistent with current/admitting diagnoses that have resulted to mobility limitations, gait instability, generalized weakness, and overall ADL decline as demonstrated by the following impairment level findings: 1.? Impaired standing balance 2.? Impaired activity tolerance 3.? Shortness of breath 4. Pain in L shoulder Impairments are contributing to the following functional limitations: 1.? Difficulty with ambulation without assistive device and physical assistance 2.? Increased completion time for mobility ADL performance 3.? Increased risk for falls 4.? Difficulty with managing steps alone safely Patient is assessed as a 73084 moderate complexity based on the following: History: 78-year-old male with past medical history as indicated above Examination: Demonstrable impairment in strength, balance, and mobility level with underlying impairments and functional limitations as exhibited above as well as deficit score of 47% utilizing the [facility] Mobility Inpatient Short Form Presentation: Stable Decision Makin moderate complexity Goals: N/A.? PT evaluation only and one treatment session only for functional mobility training and HEP instruction. Plan of Care/Treatment Plan: N/A.? PT evaluation only and one treatment session only for functional mobility training and HEP instruction. DISCHARGE RECOMMENDATIONS: [] ? Home with no services [] [] ? Home with services [] ? Home with outpatient PT [] [] ? SNF for continued rehabilitation [] [] ? Intermediate Care [] [] ? SNF versus LTC based on ability to participate and progress [] [X] HH PT vs OP PT for L shoulder and low back rehabilitation TREATMENT CODE/TIME: 54604 x 20 minutes,? 43395 x 19 minutes beginning at 13:42 PM. Thank you for the opportunity to participate in the care of this patient. Nita Denis PT, DPT, CLT [facility] [place], [place]
--- NOTE | 2023-06-17 15:15 | DSE_ITS ---
Date of service: 06/17/23 Time of Service: 15:15 DS: Diagnosis Discharge Diagnosis (1) Fall: Status: Deleted (2) UTI (urinary tract infection): Status: Resolved (3) Lactic acid acidosis: Status: Resolved (4) Hypertension: Status: Chronic (5) Non-insulin dependent type 2 diabetes mellitus: Status: Chronic (6) Incontinence: Status: Chronic (7) Depression: Status: Chronic (8) Colon cancer: (9) DVT prophylaxis: Status: Deleted (10) Bradycardia: Status: Acute (11) ANETTE (obstructive sleep apnea): Status: Chronic (12) Discharge planning issues: Status: Acute Discharge Plan Disposition Patient Disposition: Home Condition: Fair Discharge Details Reason For Visit: Dehydration,Hepatic Encephalopathy,Ambulatory Dysf Admit Date/Time: 06/16/23 17:15 Admit Provider: Carl Burton Attending Provider: Carl Burton Primary Care Provider: Maryann Whitt Hospital Course Hospital Course: This is a 78 year old male patient with past medical history of CHF, diabetes, hepatic encephalopathy, confusion, AFib, chronically anticoagulated who presented to the [facility] ED for evaluation of falls adn weakness. He had no loss of consciousness and no injury from falls. There was no syncope. His ammonia was elevated. He reported he did not take laculose because it caused his ostomy to explode. He was also bradycardic and his vasoactive medications were held and the dose was decreased on discharge. EKG with no acute changes. He was given lactulose and his ammonia decreased and he was no longer confused. He is discharged with xifaxan twice a day which will help with compliance. He did complain of some chronic shoulder pain, an xray was done, no acute findings. He was Home Meds and New Rx's Prescriptions: New Xifaxan 550 mg tablet 550 mg PO BID Qty: 14 0RF potassium chloride 20 mEq tablet extended release 20 meq PO DAILY Qty: 30 0RF Continued venlafaxine 150 mg Capsule,Extended Release 24hr 150 mg PO DAILY spironolactone 25 mg Tablet 25 mg PO QAM prazosin 5 mg Capsule 10 mg PO QHS pantoprazole 40 mg Tablet,Delayed Release (Dr/Ec) 40 mg PO DAILY metformin 1,000 mg Tablet 1,000 mg PO BID valsartan 40 mg Tablet 40 mg PO BID pregabalin 50 mg Capsule 50 mg PO BID Eliquis 5 mg Tablet 5 mg PO BID nitroglycerin 0.4 mg Tablet, Sublingual 0.4 mg sublingual Q5 MIN PRN X3 PRNQty: 30 0RF clobetasol 0.05 % Cream 1 applic TOPICAL DAILY ergocalciferol (vitamin D2) 1,250 mcg (50,000 unit) Capsule 1,250 mcg PO QWEEK miconazole nitrate 2 % Powder 1 applic TOPICAL BID PRN tamsulosin 0.4 mg Capsule 0.4 mg PO DAILY ferrous sulfate 325 mg (65 mg iron) Tablet 325 mg PO DAILY empagliflozin 25 mg Tablet 25 mg PO DAILY furosemide [Lasix] 20 mg tablet 20 mg PO QAM levothyroxine 200 mcg Tablet 100 mcg PO QAM Qty: 0 0RF Changed carvedilol 3.125 mg tablet 3.125 mg PO BID Qty: 0 0RF Patient Comments: TAKE 1 TABLET (3.125MG) BY MOUTH TWICE DAILY Rx Instructions: with meals acetaminophen [Tylenol] 325 mg Capsule 650 mg PO Q8H MDD 3000 PRNQty: 0 0RF Discontinued lactulose 20 gram/30 mL Solution 30 g PO BID Qty: 60 0RF Patient Comments: not on med list Discharge Instructions Instructions: Encephalopathy (DC), Hypokalemia (DC), Bradycardia (DC) Additional Instructions: Start Xifaxin 550 mg twice a day; stop lactulose. Decrease Carvedilol to 3.125 mg per day, your heart rate has been running low. Your potassium is chronically low, start Potassium 20 meq daily. Follow up with your PCP regarding your sugar being high and other medication adjustments. For your shoulder pain, there are some degenerative changes in the humeral head noted, there is no acute processes. You can try physical therapy, tylenol 650 mg 3 times a day for pain. Have labs checked in one week. Stand Alone Forms: Nursing Discharge Form Referrals: [facility] ([facility]-2 weeks Decreased Carvedilol to 3.125 mg BID s/t bradycardia Glucose continues to be high ~200-300) [facility] [OTHER] - 06/27/23 12:15 pm ( 1-2 weeks Chronic left shoulder pain; no acute findings on xray; recommended by in patient PT ) Activity:: Activity as Tolerated Equipment/Supplies:: No Equipment Needed Diet:: Low Sodium Discharge Orders Discharge Orders: Discharge Order (Routine); Ordered 06/17/23 Ordered By: Sydni Mckeon Other Ambulatory Orders: Basic Metabolic Panel (Routine) Timeframe: 1 Week Location: None Selected Ordered By: Sydni Mckeon Discharge Data Discharge Date/Time-TO BE ENTERED AT DEPARTURE: 06/17/23 17:03 DS: Summary Time Spent with Patient providing and/or coordinating discharge services: Greater than 30 minutes Status at Discharge Functional status at discharge: uses cane/walker Overall status at discharge: patient is back to baseline Mental Status: mental status grossly normal Speech and Movement: speech and movement normal Mood: congruent mood Affect: normal affect Exam Narrative Exam Narrative: General: alert, awake, cooperative, appears moderately comfortable HEENT: normocephalic, atraumatic; PERRL, EOM intact, conjunctiva normal; no nasal discharge; moist mucous membranes, oral and pharyngeal mucosa normal, tolerating secretions Neck: supple, trachea midline; full ROM Chest: normal to inspection Respiratory: normal respiratory effort, speaking in full sentences, clear to auscultation, no wheezing, rales or rhonchi Cardiac: bradycardia, regular rhythm, S1S2 intact, no murmurs rubs or gallops GI: abdomen soft, mild distention, nonperitoneal Skin: no lesions, rashes or trauma appreciated Neuro: AAOx3, normal speech, moving all extremities Psych: Appropriate mood and affect Psych Mental Status: mental status grossly normal Speech and Movement: speech and movement normal Mood: congruent mood Affect: normal affect DS: Data Vitals/I&O Vitals and I&O: Vital Signs Temperature 35.5 C L 06/17/23 10:58 Temperature Source Tympanic 06/17/23 10:58 Pulse 48 L 06/17/23 10:58 Pulse Rhythm Regular 06/17/23 09:35 Pulse 66 06/16/23 16:20 Respiratory Rate 16 06/17/23 10:58 Respiratory Effort Normal, Non-Labored 06/17/23 09:35 Respiratory Depth Normal 06/17/23 09:35 Respiratory Pattern Normal 06/17/23 09:35 Blood Pressure 133/71 06/17/23 10:58 Blood Pressure Mean 94 06/16/23 16:31 Blood Pressure Position Sitting 06/16/23 14:05 Pulse Oximetry 92 06/17/23 10:58 Oxygen Delivery Method Room Air 06/17/23 10:58 Oxygen Flow Rate 0 06/17/23 10:58 Pain Level 5 06/17/23 14:29 Comment Charge nurse notified of pt.'s VS. Pt. to be given a warm blanket. 06/17/23 10:58 Intake & Output 06/16/23 06/17/23 06/17/23 23:59 11:59 23:59 Intake Total 51.666 / 51.666 1888.334 / 2608.334 720 / 2608.334 Output Total 1000 / 1000 1250 / 1800 550 / 1800 Balance -948.334 / -948.334 638.334 / 808.334 170 / 808.334 Weight 101.151 kg Intake: IV 51.666 / 51.666 1098.334 / 1098.334 Oral 790 / 1510 720 / 1510 Output: Urine 1000 / 1000 350 / 650 300 / 650 Stool 900 / 1150 250 / 1150 Other: Urine Color Yellow Straw Straw Urine Appearance Cloudy Clear Clear Urine Odor Normal Comment voided x2 and was inc large amt urine Void x1 in the toilet (void was from earlier; RN unsure when pt. actually got up to the bathroom). Stool Size Large Stool Characteristics Liquid Liquid Foamy Brown Brown Voiding Methods Urinal Urinal Toilet Data Completed and Pending Labs on day of discharge: Labs from last 24 hours 06/17/23 06/17/23 06/17/23 13:05 06:58 06:58 WBC RBC Hgb Hct MCV MCH MCHC RDW Plt Count MPV Immature Gran % Neutrophils % Lymphocytes % Monocytes % Eosinophils % Basophils % Nucleated RBC % Absolute Neutrophils Absolute Lymphocytes Absolute Monocytes Absolute Eosinophils Absolute Basophils VBG pH VBG pCO2 VBG pO2 VBG HCO3 VBG Total CO2 VBG O2 Saturation VBG Base Excess VBG Lactate 2.0 H Sodium Potassium Chloride Carbon Dioxide Anion Gap BUN Creatinine Est GFR (CKD-EPI 2020) Glucose Calcium Magnesium Total Bilirubin AST ALT Alkaline Phosphatase Ammonia 55 H 101 H Troponin I Total Protein Albumin Procalcitonin TSH Free T4 06/17/23 06/17/23 06/17/23 06:58 06:58 02:18 WBC 4.81 RBC 4.82 Hgb 13.6 D Hct 41.3 MCV 86 MCH 28.2 MCHC 32.9 RDW 17.4 H Plt Count 109 L MPV 11.1 H Immature Gran % 0.2 Neutrophils % 59.5 Lymphocytes % 22.0 Monocytes % 11.9 Eosinophils % 5.6 Basophils % 0.8 Nucleated RBC % 0.0 Absolute Neutrophils 2.86 Absolute Lymphocytes 1.06 L Absolute Monocytes 0.57 Absolute Eosinophils 0.27 Absolute Basophils 0.04 VBG pH VBG pCO2 VBG pO2 VBG HCO3 VBG Total CO2 VBG O2 Saturation VBG Base Excess VBG Lactate 2.6 H* Sodium 143 Potassium 3.4 L Chloride 108 H Carbon Dioxide 23.9 Anion Gap 11.1 H BUN 16 Creatinine 1.1 Est GFR (CKD-EPI 2020) 69.57 Glucose 214 H Calcium 9.0 Magnesium 1.8 Total Bilirubin 1.5 H AST 25 ALT 11 L Alkaline Phosphatase 121 H Ammonia Troponin I Total Protein 6.0 L Albumin 2.4 L Procalcitonin TSH Free T4 06/17/23 06/16/23 06/16/23 02:18 20:16 20:16 WBC RBC Hgb Hct MCV MCH MCHC RDW Plt Count MPV Immature Gran % Neutrophils % Lymphocytes % Monocytes % Eosinophils % Basophils % Nucleated RBC % Absolute Neutrophils Absolute Lymphocytes Absolute Monocytes Absolute Eosinophils Absolute Basophils VBG pH VBG pCO2 VBG pO2 VBG HCO3 VBG Total CO2 VBG O2 Saturation VBG Base Excess VBG Lactate 3.2 H* Sodium Potassium Chloride Carbon Dioxide Anion Gap BUN Creatinine Est GFR (CKD-EPI 2020) Glucose Calcium Magnesium Total Bilirubin AST ALT Alkaline Phosphatase Ammonia 133 H 112 H Troponin I Total Protein Albumin Procalcitonin TSH Free T4 06/16/23 06/16/23 06/16/23 20:10 15:50 15:50 WBC RBC Hgb Hct MCV MCH MCHC RDW Plt Count MPV Immature Gran % Neutrophils % Lymphocytes % Monocytes % Eosinophils % Basophils % Nucleated RBC % Absolute Neutrophils Absolute Lymphocytes Absolute Monocytes Absolute Eosinophils Absolute Basophils VBG pH 7.37 VBG pCO2 45 VBG pO2 31 VBG HCO3 26 VBG Total CO2 23 L VBG O2 Saturation 54 VBG Base Excess 1 VBG Lactate Sodium Potassium Chloride Carbon Dioxide Anion Gap BUN Creatinine Est GFR (CKD-EPI 2020) Glucose Calcium Magnesium Total Bilirubin AST ALT Alkaline Phosphatase Ammonia 84 H Troponin I < 50 Total Protein Albumin Procalcitonin TSH Free T4 06/16/23 06/16/23 06/16/23 15:50 14:35 14:35 WBC RBC Hgb Hct MCV MCH MCHC RDW Plt Count MPV Immature Gran % Neutrophils % Lymphocytes % Monocytes % Eosinophils % Basophils % Nucleated RBC % Absolute Neutrophils Absolute Lymphocytes Absolute Monocytes Absolute Eosinophils Absolute Basophils VBG pH VBG pCO2 VBG pO2 VBG HCO3 VBG Total CO2 VBG O2 Saturation VBG Base Excess VBG Lactate Sodium 140 Potassium 3.8 Chloride 105 Carbon Dioxide 22.8 Anion Gap 12.2 H BUN 12 Creatinine 1.1 Est GFR (CKD-EPI 2020) 69.57 Glucose 315 H Calcium 9.3 Magnesium 1.8 Total Bilirubin 2.3 H AST 29 ALT 17 Alkaline Phosphatase 151 H Ammonia Troponin I < 50 Total Protein 7.2 Albumin 2.9 L Procalcitonin < 0.1 TSH 28.65 H Free T4 1.40 06/16/23 15:09 Blood Blood Culture - Pending 06/16/23 15:09 Blood Blood Culture - Pending 06/16/23 14:30 Urine - Reflex from Urine Culture - Pending Preliminary micro results at discharge 06/16/23 15:09 Blood Culture - Pending Blood 06/16/23 15:09 Blood Culture - Pending Blood 06/16/23 14:30 Urine Culture - Pending Urine - Reflex from [facility]a [facility] All Active Problems (Updated 06/19/23 @ 09:24 by Sydni Mckeon NP) Discharge planning issues (Acute) Hypokalemia (Acute) Acute hyperglycemia (Acute) Bradycardia (Acute) Multiple falls (Acute) Anticoagulated (Acute) Acute metabolic encephalopathy (Acute) Encephalopathy, hepatic (Acute) Confusion (Acute) Medication monitoring encounter (Acute) ANETTE (obstructive sleep apnea) (Chronic) Chest pain (Acute) CHF exacerbation (Acute) Depression (Chronic) 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, Dx [facility] as per pt History of colon cancer Palliative care encounter Followed by [facility] hypertension Recurrent intestinal obstruction Scleral icterus Surgical History Colostomy in place H/O left hemicolectomy S/P TIPS (transjugular intrahepatic portosystemic shunt) Social History Smoking/Tobacco Use Status: Former Tobacco Use Smoking risk assessment performed?: Yes Alcohol Intake: former Drug use: Never Substance use type: does not use Housing: house Do you feel safe at home: Yes Do you feel safe in your relationship?: Yes Additional Social history: Lives with , son, and sick [id number] in [place], moved up from [place] in 2019. [place] . Time Spent with Patient Time Spent with Patient: 45-69 minutes Time was spent: preparing to see the patient(eg.review tests), ordering medications,tests, procedures, referring, communicating with other health health care liaison, indepentently interpreting results, counseling the patient and care coordination
[2023-06-17 15:23] VITALS: BP 152/65; PULSE 47; RESP 18; TEMP 36.2; O2SAT 94
[2023-06-17] MEDS: Rifaximin 550 MG TAB PO (16:11)
--- NOTE | 2023-06-17 16:29 | CMDISCH_ITS ---
Date of service: 06/17/23 Time of Service: 16:29 LACE Index Scoring Tool Questions: Length of Stay (in days): 1 Was the patient admitted via the E.D.?: Yes E.D. Visits: 11 Answers: Total Score: 8 Risk of Readmission: Low Risk Care Management Discharge Plan Reason for Hospitalization: Dehydration, ambulatory dysfunction Discharge Plan: Osmar will discharge home with recommendations for home health services provided by [facility]. He will follow up with his community providers and plan of care and transport with family. Pharmacy to release medications for five days; CM reviewed discharge planning considerations with RN [facility] at [facility]: Carlos. Patient/Family Education Needs: Review discharge instructions, discuss Ask Me Three. Services Needed at Discharge: Home Health Care Services
--- NOTE | 2023-06-18 09:08 | OTDS_ITS ---
Occupational Therapy Notes Occupational Therapy Inpatient Discharge Summary Date: 06/18/23 Dates of Service: 06/17/23 Referring Doctor:Sydni Mckeon NP OT Orders: Non urgent Precautions: Fall, standard, full *This document serves as a summary of care, no skilled OT services were provided for this documentation on this date. The summary presents as a summary of patients care from evaluation* PATIENT PROFILE/ADMITTING DIAGNOSIS: Pt presented to the ED on 06/16/23 with a clinical impression of Encephalopathy, hepatic, Confusion, Acute hyperglycemia, Bradycardia, Multiple falls, Anticoagulated. He was admitted to Med surg with the following dx of frequent falls, UTI, lactic acid acidosis, HTN, DM II, incontinence, colon cancer, bradycardia, ANETTE. 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 Chronic anticoagulation Chronic low back pain Cirrhosis TIPs placed (?when, [facility] [place] [facility]?)Colon cancer Confusion COVID Endocarditis September 2022, Dx [facility] as per ptHistory of colon cancer Palliative care encounter Followed by [facility] hypertension Recurrent intestinal obstruction Scleral icterus Surgical History? Colostomy in place H/O left hemicolectomy S/P TIPS (transjugular intrahepatic portosystemic shunt) Social History/Home Situation: Lives with , son, and sick [id number] in [place], [place].? [place]Pt currently is receiving PT/OT HH services. Pt reports that he is (I) at his baseline, he notes that his (L) shoulder has been limiting him for months post a fall so his dressing routine has been limited. Equipment owned/DME: 4WW, cane, shower seat, grab bars SUBJECTIVE:?NT OBJECTIVE:? 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 BATHING Bathing UE seated in bed (I) with washing his face, but otherwise would like to hold until after breakfast. He is limited d/t the ROM of his (L) shoulder. DRESSING Dressing UE OT educated and trained pt in the in first and out last technique for don and doffing a shirt to decrease strain and pain on his (L) shoulder. GROOMING Able to touch top of head and mouth with (R) UE . TOILETING NT EATING (I) with use of his (R) hand. unable to place (L) on table d/t pain BALANCE:? Static sitting Normal Dynamic Sitting Normal ASSESSMENT:?? Patient is a 78-year-old female referred to occupational therapy services with diagnosis of dx of frequent falls, UTI, lactic acid acidosis, HTN, DM II, incontinence, colon cancer, bradycardia, ANETTE. Patient was seen for OT consult only. GOALS not met seen for OT consult only. 1.? Grooming- standing at sink (I) with oral hygiene 2.? Dressing seated (I) 3.? Bathing seated in chair (I) 4.? Toileting on toilet (I) 5.? Eating (I) in seated position PLAN OF CARE/TREATMENT PLAN: Discharged on 06/17/23 to home with continuation of HH services. DISCHARGE RECOMMENDATIONS OT recommends that pt return home with HH services when medically cleared per MD. TREATMENT TIME/MINUTES/CODES N/A Verna Melendez OTR/L [facility]
== END 2023-06-17 17:03 | disposition home or self-care (01) | DRG 689 ==
LOC: ER 18:10 → MS 18:47
PROVIDERS: Nurse Practitioner Family; Physician Assistant; Admitting Provider Internal Medicine; Emergency Provider Nurse Practitioner Family; PCP Nurse Practitioner Adult Health; Visit Provider Internal Medicine
DX: N39.0 Urinary tract infection, site not specified (principal); G93.41 Metabolic encephalopathy; K76.6 Portal hypertension; E72.20 Disorder of urea cycle metabolism, unspecified; E87.21 Acute metabolic acidosis; E87.6 Hypokalemia; R29.6 Repeated falls; Z79.84 Long term (current) use of oral hypoglycemic drugs; E11.65 Type 2 diabetes mellitus with hyperglycemia; F32.A Depression, unspecified; Z93.3 Colostomy status; Z85.038 Personal history of other malignant neoplasm of large intestine; R00.1 Bradycardia, unspecified; G47.33 Obstructive sleep apnea (adult) (pediatric); R32 Unspecified urinary incontinence; I50.9 Heart failure, unspecified; I11.0 Hypertensive heart disease with heart failure; K76.82 Hepatic encephalopathy; I48.91 Unspecified atrial fibrillation; Z79.01 Long term (current) use of anticoagulants; R53.1 Weakness; I44.0 Atrioventricular block, first degree; M54.50 Low back pain, unspecified; G89.29 Other chronic pain; Z87.891 Personal history of nicotine dependence; W19.XXXA Unspecified fall, initial encounter
CPT/HCPCS: 36415; 74177; 80053; 82805; 84145; 87040; 87077; 93005; 96374; 97162; 97166; 97530; 97535; 99285; 70450; 71260; 72125; 73030; 81003; 81015; 82140; 83605; 83735; 84439; 84443; 84484; 85025; 87086; 87186; 93010; 99222; 99239; J3490

== ENCOUNTER 2023-07-07 11:54 | Emergency (ER) | payer OTHER, SELFPAY ==
[2023-07-07] VITALS (17 sets, daily range): BP systolic 127–178; BP diastolic 37–59; PULSE 44–50; RESP 14–18; TEMP 36.8; O2SAT 94–97
--- NOTE | 2023-07-07 12:00 | DI.CT_ITS ---
Exam(s) CT HEAD WO EXAM: CT HEAD WO CLINICAL HISTORY: fall, anticoagulated. TECHNIQUE: Imaging Protocol: Axial computed tomography images with coronal and sagittal reformatted images were created and reviewed COMPARISON: CT CT HEAD CERVICAL SPINE WO from 06/16/2023 FINDINGS: There are no skull fractures. There are surgical defects in the medial patterson of both maxillary sinus es. There is some mucosal thickening in the maxillary sinuses but no acute fluid levels therein. Th ere is no fluid in the visualized paranasal sinuses. There is no evidence of intracranial hemorrhage, mass effect, or shift of midline structures. There are no extra-axial fluid collections. The ventricles are not enlarged or shifted and there is no blo od within the ventricular system nor within the basal cisterns. IMPRESSION: No acute intracranial findings on this noninfused CT scan of the brain. Called by myself to ER. RADIATION DOSE DELIVERED: 786.23mGy.cm Total DLP DATA REPOSITORY: All CT scans at this facility are submitted to the National Radiology Data Registry (NRDR) Dose Index Registry (DIR) with the [employer] (ACR). RADIATION OPTIMIZATION: All CT scans at this facility use at least one of these dose optimization te chniques: automated exposure control; mA and/or kV adjustment per patient size (includes targeted exa ms where dose is matched to clinical indication); or iterative reconstruction.
--- NOTE | 2023-07-07 12:09 | W.ED.GENAD ---
Discharge Plan Disposition Patient Disposition: Home Condition: Good Discharge Details Clinical Impression: Contusion of head, Bradycardia, Serum potassium elevated, Creatinine elevation Primary Care Provider: Maryann Whitt ED Provider: Kalie Leonard Jolo Meds and New Rx's Prescriptions: Continued venlafaxine 150 mg Capsule,Extended Release 24hr 150 mg PO DAILY spironolactone 25 mg Tablet 25 mg PO QAM prazosin 5 mg Capsule 10 mg PO QHS pantoprazole 40 mg Tablet,Delayed Release (Dr/Ec) 40 mg PO DAILY metformin 1,000 mg Tablet 1,000 mg PO BID valsartan 40 mg Tablet 40 mg PO BID pregabalin 50 mg Capsule 50 mg PO BID Eliquis 5 mg Tablet 5 mg PO BID Patient Comments: not taking nitroglycerin 0.4 mg Tablet, Sublingual 0.4 mg sublingual Q5 MIN PRN X3 PRNQty: 30 0RF clobetasol 0.05 % Cream 1 applic TOPICAL DAILY Patient Comments: not taking ergocalciferol (vitamin D2) 1,250 mcg (50,000 unit) Capsule 1,250 mcg PO QWEEK Patient Comments: not taking miconazole nitrate 2 % Powder 1 applic TOPICAL BID PRN Xifaxan 550 mg tablet 550 mg PO BID Qty: 14 0RF Patient Comments: not taking carvedilol 3.125 mg tablet 3.125 mg PO BID Qty: 0 0RF Patient Comments: TAKE 1 TABLET (3.125MG) BY MOUTH TWICE DAILY Rx Instructions: with meals acetaminophen [Tylenol] 325 mg Capsule 650 mg PO Q8H MDD 3000 PRNQty: 0 0RF tamsulosin 0.4 mg Capsule 0.4 mg PO DAILY ferrous sulfate 325 mg (65 mg iron) Tablet 325 mg PO DAILY empagliflozin 25 mg Tablet 25 mg PO DAILY furosemide [Lasix] 20 mg tablet 20 mg PO QAM levothyroxine 200 mcg Tablet 100 mcg PO QAM Qty: 0 0RF Discontinued potassium chloride 20 mEq tablet extended release 10 meq PO DAILY No Action hydrocodone-acetaminophen 5-325 mg Tablet 1 tab PO Q6H PRN clindamycin HCl 150 mg Capsule 150 mg PO TID rifaximin 550 mg Tablet 550 mg PO BID Discharge Instructions Instructions: Contusion in Adults (ED) Additional Instructions: Your imaging is reassuring here today. If you have another fall like this in the future, because of the medications you are on, please come back in for reevaluation. Your potassium is minimally elevated here today. Please stop your potassium supplement until reevaluated by primary care. Please call your primary care tomorrow to schedule follow-up appointment in the next week. I am concerned that you may have been slightly dehydrated so please continue to encourage hydration. Your labs were otherwise reassuring here today. I wonder if some of your dizziness may be associated with your low heart rate which is associated with medication side effect. Please discuss this further with your primary care. If you develop any new or worsening symptoms to seek care urgently once again. Please keep your upcoming appointments with nursing staff, PT and primary care. Referrals: Maryann Whitt [Primary Care Provider] - Discharge Data Discharge Date/Time-TO BE ENTERED AT DEPARTURE: 07/07/23 16:34 Medical Decision Making Patient is a pleasant 78-year-old male presenting today with chief complaint of a fall and striking his head. Patient is anticoagulated on Eliquis. States that he was carrying an air conditioner when he stumbled and fell forward striking his head on the ground. He denies any loss of consciousness. Denies any headache currently. Patient does have a large amount of ecchymosis in the lower face and neck associated with a recent dental procedure. Denies any headache currently. States he does have some pain in the left arm but this is chronic. Denies any new neck pain. On exam, he appears to be resting comfortably. No evidence of acute head trauma. Neurologically intact. As patietn is anticoagulated, increased concern for ICH. Will obtain head CT. Denies WITT and analgesics at this time. CT head negative Patient initially discharged after negative CT scan. Nursing staff concerned the patient's heart rate is 46. This does appear to be baseline for him and likely associate with medications. However, when I went in to speak with the patient he reports that he is constantly dizzy, no change in this today. questions if his ammonia is elevating. No change in his medications. He reports that he has chronic CP, last time was night before last. No LOC. reports his dizziness is more lack of balance which has been a chronic issue. Unclear at htis time what is new and what is chronic. Lab called with critical K+ of 6.1. This is new for the patient. ECG with LBBB which is unchanged. No peaked T waves. Concerned that this may be falsely elevated as this is chronic for th patient. He is hemodynamically stable, will recheck. Repeat 5.2. This makes more sense clinically. Will have him hold his K+ replacement for now. Have him f/u with PCP. Troponin WNL. No evidence of acute process at this time. Strict return precautions discussed. All of his questions and concerns were addresseed, he is in agreement with this plan. REports that he feels like he is at his baseline with no acute change in his chronic concerns. HPI General Date/Time Provider Initiated Documentation: 07/07/23 12:09. Limitations to Documentation: no limitations. Information obtained by: patient, family () and RN notes reviewed. History of Present Illness 78 year old M presents to the emergency department with the chief complaint of head injury, mechanical fall after tripping , described as mild (patient denies any WITT or discomfort from nithya fall), and is localized to the head. Patient started experiencing this hour(s) and it has been now resolved. No relieving factors improve symptom(s), No exacerbating factors reported . Patient notes no other symptoms.. Patient did receive the following treatments prior to arrival, none Related Data Home Medications Medication Instructions Recorded Confirmed apixaban 5 mg tablet (Eliquis) 5 mg PO BID 11/08/22 06/16/23 metformin 1,000 mg tablet 1,000 mg PO BID 11/08/22 07/07/23 pantoprazole 40 mg tablet,delayed 40 mg PO DAILY 11/08/22 07/07/23 release prazosin 5 mg capsule 10 mg PO QHS 11/08/22 07/07/23 pregabalin 50 mg capsule 50 mg PO BID 11/08/22 07/07/23 spironolactone 25 mg tablet 25 mg PO QAM 11/08/22 07/07/23 valsartan 40 mg tablet 40 mg PO BID 11/08/22 07/07/23 venlafaxine 150 mg 150 mg PO DAILY 11/08/22 07/07/23 capsule,extended release 24 hr tamsulosin 0.4 mg capsule 0.4 mg PO DAILY 11/29/22 07/07/23 nitroglycerin 0.4 mg sublingual 0.4 mg sublingual Q5 MIN PRN X3 02/10/23 07/07/23 tablet PRN #30 tabs ferrous sulfate 325 mg (65 mg 325 mg PO DAILY 03/08/23 07/07/23 iron) tablet empagliflozin 25 mg tablet 25 mg PO DAILY 04/09/23 07/07/23 furosemide 20 mg tablet (Lasix) 20 mg PO QAM 04/09/23 07/07/23 levothyroxine 200 mcg tablet 100 mcg PO QAM #0 tabs 04/10/23 07/07/23 clobetasol 0.05 % topical cream 1 applic topical DAILY 06/16/23 06/16/23 ergocalciferol (vitamin D2) 1,250 1,250 mcg PO QWEEK 06/16/23 06/16/23 mcg (50,000 unit) capsule miconazole nitrate 2 % topical 1 applic topical BID PRN 06/16/23 07/07/23 powder acetaminophen 325 mg capsule 650 mg PO Q8H PRN #0 caps 06/17/23 07/07/23 (Tylenol) carvedilol 3.125 mg tablet 3.125 mg PO BID #0 tabs 06/17/23 07/07/23 rifaximin 550 mg tablet (Xifaxan) 550 mg PO BID #14 tabs 06/17/23 clindamycin HCl 150 mg capsule 150 mg PO TID 07/07/23 07/07/23 hydrocodone 5 mg-acetaminophen 325 1 tab PO Q6H PRN 07/07/23 07/07/23 mg tablet rifaximin 550 mg tablet 550 mg PO BID 07/07/23 07/07/23 Previous Rx's Medication Instructions Recorded nitroglycerin 0.4 mg sublingual 0.4 mg sublingual Q5 MIN PRN X3 02/10/23 tablet PRN #30 tabs levothyroxine 200 mcg tablet 100 mcg PO QAM #0 tabs 04/10/23 acetaminophen 325 mg capsule 650 mg PO Q8H PRN #0 caps 06/17/23 (Tylenol) carvedilol 3.125 mg tablet 3.125 mg PO BID #0 tabs 06/17/23 rifaximin 550 mg tablet (Xifaxan) 550 mg PO BID #14 tabs 06/17/23 Allergies Allergy/AdvReac Type Severity Reaction Status Date / Time Penicillins Allergy Mild Itching Unverified 07/07/23 14:53 morphine AdvReac Severe vomiting Unverified 07/07/23 14:53 mussels AdvReac Severe vomiting Unverified 07/07/23 14:53 General Stated Complaint: HeadInjury ANNA: 3 Review of Systems Constitutional Constitutional: Reports as per HPI, Denies fever(s), Denies frequent falls and Denies weakness Eyes Eyes: Reports as per HPI, Denies blurry vision and Denies change in vision ENT Ears, Nose, Mouth, and Throat: Denies vertigo and Denies neck pain Cardiovascular Cardiovascular: Reports as per HPI, Denies chest pain, Denies lightheadedness, Denies dyspnea and Denies dyspnea on exertion Respiratory Respiratory: Reports as per HPI, Denies chest congestion, Denies cough, Denies dyspnea and Denies dyspnea on exertion Gastrointestinal Gastrointestinal: Reports as per HPI, Denies abdominal pain, Denies nausea and Denies vomiting Genitourinary Genitourinary: Reports system reviewed and no additional complaints, except as documented (denies change in urinary habits) Musculoskeletal Musculoskeletal: Reports as per HPI, Denies muscle cramps, Denies neck pain and Denies numbness Integumentary/Breasts Skin/Breast: Reports as per HPI and Denies rash Neurologic Neurologic: Reports as per HPI, Denies abnormal speech, Denies vertigo, Denies frequent falls, Denies localized weakness, Denies numbness, Denies sensory deficit and Denies weakness PFSH All Active Problems (Updated 07/08/23 @ 00:07 by JOSE LUIS REICH) Contusion of head (Acute) Bradycardia (Acute) Serum potassium elevated (Acute) Creatinine elevation (Acute) Hypokalemia (Acute) Bradycardia (Acute) Multiple falls (Acute) Acute metabolic encephalopathy (Acute) Medication monitoring encounter (Acute) ANETTE (obstructive sleep apnea) (Chronic) Chest pain (Acute) CHF exacerbation (Acute) CHF (congestive heart failure) (Chronic) Medical History Chronic anticoagulation Chronic low back pain Cirrhosis TIPs placed (?when, [facility] [place]? 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, Dx [facility] as per pt History of colon cancer Palliative care encounter Followed by [facility] Portal hypertension Recurrent intestinal obstruction Scleral icterus Surgical History Colostomy in place H/O left hemicolectomy S/P TIPS (transjugular intrahepatic portosystemic shunt) Social History Smoking/Tobacco Use Status: Former Tobacco Use Smoking risk assessment performed?: Yes Alcohol Intake: former Drug use: Never Substance use type: does not use Housing: house Do you feel safe at home: Yes Do you feel safe in your relationship?: Yes Additional Social history: Lives with , son, and sick [id number] in [place], moved up from [place] in 2019. [place]. Exam Const General: cooperative, healthy appearing, uncomfortable, no acute distress, well developed and well groomed Nutritional Appearance: well nourished and overweight Orientation: alert, awake and oriented x3 HENMT Head: normal to inspection, no palpable skull fracture, normocephalic and atraumatic Ears: hearing grossly normal bilaterally, external ears normal and TM's normal bilaterally General nose exam: external nose normal Face and sinus: abnormal facial exam (large amount of bruising right side of face and inferiorly from dental extr) and ecchymosis Mouth: oral mucosae normal and moist mucous membranes Throat: posterior oropharynx normal Eyes General: appearance normal, both eyes and all related structures Alignment and Position: alignment normal Periorbital: periorbital findings normal Eyelids: eyelids normal Sclera: sclerae normal Cornea: corneas normal Pupils: PERRL EOM: EOM intact bilaterally Neck Neck: normal visual inspection, full ROM, no lymphadenopathy and no meningeal signs Resp Effort & Inspection: normal respiratory effort, able to speak in complete sentences and no respiratory distress Auscultation: clear to auscultation bilaterally, no rales, no rhonchi and no wheezes Cardio Rate: regular rate Rhythm: regular rhythm Heart Sounds: S1 normal and S2 normal Back/Spine/Pelvis Cervical Spine: normal cervical lordosis and cervical ROM normal Thoracic/Lumbar Spine: thoracic and lumbar spine normal to inspection, No paraspinal tenderness, No thoracic spinal tenderness and No lumbar spinal tenderness Skin General skin exam: ecchymosis (dark purple on face) Neuro General: patient alert, patient awake and patient oriented x3 Cranial Nerves: CN's II-XI intact bilaterally Cognition: normal cognition Speech: speech normal Gait: normal gait Motor: muscle tone normal throughout, strength 5/5 throughout, no pronator drift, no movement abnormalities noted and no fasciculations Sensory Exam: no sensory deficits noted Coordination: [id number] test normal and [id number] test normal Extrem General: normal to inspection, capillary refill normal, no pedal edema and no calf tenderness Psych Appearance: grossly normal and well kempt Mental Status: mental status grossly normal Speech and Movement: speech and movement normal Course Vital Signs Vital signs: Vital Signs Temperature 36.8 C 07/07/23 11:57 Pulse 50 L 07/07/23 11:57 Respiratory Rate 16 07/07/23 11:57 Blood Pressure 127/37 L 07/07/23 11:57 Pulse Oximetry 94 07/07/23 11:57 Temperature 36.8 C 07/07/23 11:57 Temperature Source Skin 07/07/23 11:57 Pulse 50 L 07/07/23 11:57 Respiratory Rate 16 07/07/23 11:57 Blood Pressure 127/37 L 07/07/23 11:57 Blood Pressure Position Sitting 07/07/23 11:57 Pulse Oximetry 94 07/07/23 11:57 Oxygen Delivery Method Room Air 07/07/23 11:57 Oxygen Flow Rate 0 07/07/23 11:57 Pain Level 3 07/07/23 11:57
--- NOTE | 2023-07-07 13:30 | RT.EKG_ITS ---
APPROVED REPORT Exam: Resting ECG Reason for Exam: dizziness Patient Location: E HR:46 bpm ECG Measurements Heart Rate 46 AXIS HI 323 P -9 QRSd 143 QRS 11 QT 479 T 51 QTc 418 Conclusion Sinus bradycardia...rate< 60 Prolonged HI interval...HI >230, V-rate 30- 49 Left bundle branch block...QRSd>120, broad/notched R Physician: no stemi, LBBB, negative for sgarbossa.
--- NOTE | 2023-07-07 13:30 | DI.RAD_ITS ---
Exam(s) XR CHEST 2V PA LATERAL EXAM: XR CHEST 2V PA LATERAL CLINICAL HISTORY: dizziness TECHNIQUE: 2D digital imaging was performed. COMPARISON: CR XR CHEST 1V IN DI DEPT from 04/09/[address] CHEST/ABD/PEL W from 06/16/2023 FINDINGS: HEART: Enlarged, unchanged. Aorta: Tortuous, unchanged. PULMONARY VASCULATURE: Normal. LUNGS: Clear. PLEURAL SPACE: No pleural effusion or pneumothorax. BONE:Unremarkable for age. IMPRESSION: No acute abnormality. DATA REPOSITORY: RADIATION DOSE DELIVERED:
[2023-07-07 14:16] LABS: Abs Immature Grans 0.02 10^3/uL (0.0-0.06); Absolute Basophil Count 0.02 10^3/uL (0.0-0.2); Absolute Eosinophil Count 0.35 10^3/uL (0.0-0.7); Absolute Lymphocyte Count 0.96 10^3/uL (1.2-3.4); Absolute Monocyte Count 0.36 10^3/uL (0.1-0.8); Absolute Neutrophil Count 3.07 10^3/uL (1.2-6.7); Basophils % 0.4; Eosinophils % 7.3; HCT 38.2 % (40.0-50.0); HGB 12.6 g/dL (13.5-17.5); Immature Grans % 0.4; Lymphocytes % 20.1; MCV 88 fL (80-95); MPV 10.8 fL (8.0-11.0); Monocytes % 7.5; Neutrophils % 64.3; Platelet Count 114 10^3/uL (130-400); RBC 4.34 10^6/uL (4.36-5.78); RDW 16.6 % (11.8-14.1); RDW-SD 54.2 fL; WBC 4.78 10^3/uL (4.4-10.8)
[2023-07-07 14:24] LABS: Ammonia 20 umol/L (11-32)
[2023-07-07 14:31] LABS: ALT 23 U/L (16-63); AST 32 U/L (15-37); Albumin 2.7 g/dL (3.4-5.0); Alkaline Phosphatase 123 U/L (46-116); Anion Gap 6.1 mmol/L (3-11); BUN 17 mg/dL (7-18); Bilirubin, Total 1.5 mg/dL (0.2-1.0); CO2 23.9 mmol/L (21.0-32.0); CREATININE 1.6 mg/dL (0.70-1.30); Chloride 102 mmol/L (98-107); Estimated GFR 44.38 (mL/min/1.73m2); Glucose 272 mg/dL (74-106); Magnesium 1.8 mg/dL (1.8-2.4); Sodium 132 mmol/L (136-145); Total Protein 6.6 g/dL (6.4-8.2); Troponin I < 50 ng/L (<or=60)
[2023-07-07 14:33] LABS: Potassium 6.1 mmol/L (3.5-5.1)
[2023-07-07] MEDS: Normal Saline 250 ML IV (14:51)
[2023-07-07 15:03] LABS: Potassium 5.2 mmol/L (3.5-5.1)
== END 2023-07-07 16:34 | disposition home or self-care (01) ==
PROVIDERS: Emergency Provider Physician Assistant; PCP Nurse Practitioner Adult Health
DX: S00.83XA Contusion of other part of head, initial encounter (principal); R00.1 Bradycardia, unspecified; E87.5 Hyperkalemia; R79.89 Other specified abnormal findings of blood chemistry; W19.XXXA Unspecified fall, initial encounter
CPT/HCPCS: 36415; 80053; 93005; 96360; 99285; 70450; 71046; 82140; 83735; 84132; 84484; 85025; 93010; 99284

== ENCOUNTER 2023-08-11 05:41 | Emergency (ER) | payer OTHER, SELFPAY ==
[2023-08-11] VITALS (43 sets, daily range): BP systolic 177–207; BP diastolic 60–72; PULSE 56–73; RESP 18; TEMP 36.8; O2SAT 86–95
--- NOTE | 2023-08-11 05:45 | DI.CT_ITS ---
Exam(s) CT ABDOMEN PELVIS WO EXAM: CT ABDOMEN PELVIS WO CLINICAL HISTORY: abdominal pain, suspect obstruction. TECHNIQUE: Imaging Protocol: Axial computed tomography images with coronal and sagittal reformatted images were created and reviewed. COMPARISON: CT CT CHEST/ABD/PEL W from 06/16/2023 FINDINGS: ABDOMEN: Lung Bases: Cardiomegaly. Liver: Normal density. There is a nodular contour of the liver consistent with hepatic cirrhosis. Th ere is a TIPS in place. Gallbladder and biliary tract: Cholelithiasis. No biliary ductal dilatation. Pancreas: Normal density. No inflammatory process. Stable pancreatic head calcifications. Spleen: Splenomegaly. Kidneys: Normal size, contour and axis.No radiodense stones or obstructive uropathy. No masses seen. Adrenal glands: No mass is seen. Lymph nodes: Within normal limits. Abdominal Aorta: Abdominal portion non-dilated. Atherosclerosis. PELVIS: Bladder:Symmetric distention, no gross wall thickening. Bowel: Status post resection of the sigmoid and rectum. There is a left lower quadrant colostomy. T here also appears to be a partial right colectomy. There are dilated loops of small bowel in the mid lower abdomen near the anastomosis. Findings are suspicious for small bowel obstruction. Peritoneal cavity: There is a trace amount of perihepatic fluid. No free air. Reproductive organs: Unremarkable as visualized. Bones: Within normal limits. Soft Tissues: There are small fat containing anterior abdominal wall hernias present. IMPRESSION: 1. Findings suspicious for small bowel obstruction in the lower mid abdomen near the level of anastom osis. 2. Findings of hepatic cirrhosis with splenomegaly and a TIPS in place. 3. Sigmoid and rectal resection with left lower quadrant colostomy. RADIATION DOSE DELIVERED: Total DLP DATA REPOSITORY: All CT scans at this facility are submitted to the National Radiology Data Registry (NRDR) Dose Index Registry (DIR) with the [employer] (ACR). RADIATION OPTIMIZATION: All CT scans at this facility use at least one of these dose optimization te chniques: automated exposure control; mA and/or kV adjustment per patient size (includes targeted exa ms where dose is matched to clinical indication); or iterative reconstruction.
--- NOTE | 2023-08-11 06:02 | ED.GENADUL_ITS ---
Discharge Plan Discharge Details Chief Complaint: Abd Prob Clinical Impression: SBO (small bowel obstruction) Primary Care Provider: Maryann Whitt ED Provider: Js Johns Home Meds and New Rx's Prescriptions: No Action venlafaxine 150 mg Capsule,Extended Release 24hr 150 mg PO DAILY spironolactone 25 mg Tablet 25 mg PO QAM prazosin 5 mg Capsule 10 mg PO QHS pantoprazole 40 mg Tablet,Delayed Release (Dr/Ec) 40 mg PO DAILY metformin 1,000 mg Tablet 1,000 mg PO BID valsartan 40 mg Tablet 40 mg PO BID pregabalin 50 mg Capsule 50 mg PO BID Eliquis 5 mg Tablet 5 mg PO BID Patient Comments: not taking nitroglycerin 0.4 mg Tablet, Sublingual 0.4 mg sublingual Q5 MIN PRN X3 PRNQty: 30 0RF ergocalciferol (vitamin D2) 1,250 mcg (50,000 unit) Capsule 1,250 mcg PO QWEEK Patient Comments: not taking miconazole nitrate 2 % Powder 1 applic TOPICAL BID PRN carvedilol 3.125 mg tablet 3.125 mg PO BID Qty: 0 0RF Patient Comments: TAKE 1 TABLET (3.125MG) BY MOUTH TWICE DAILY Rx Instructions: with meals acetaminophen [Tylenol] 325 mg Capsule 650 mg PO Q8H MDD 3000 PRNQty: 0 0RF rifaximin 550 mg Tablet 550 mg PO BID tamsulosin 0.4 mg Capsule 0.4 mg PO DAILY ferrous sulfate 325 mg (65 mg iron) Tablet 325 mg PO DAILY empagliflozin 25 mg Tablet 25 mg PO DAILY furosemide [Lasix] 20 mg tablet 20 mg PO QAM levothyroxine 200 mcg Tablet 100 mcg PO QAM Qty: 0 0RF Medical Decision Making This is a pleasant 78-year-old male who is a with a past medical history of congestive heart failure, depression, type 2 diabetes, TIPS procedure, previous endocarditis, 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 Patient states that over the last 24 hours he has had diminished ostomy output, as well as abdominal bloating and pain. He describes it as similar to his previous 20 small bowel obstructions. He denies any vomiting but admits to nausea. He denies any chest pain or shortness of breath. No blood in his ostomy. He has not had to empty his ostomy at all for the last 12 hours. No other complaints at this time. No other modifying factors. Exam demonstrates mild abdominal distention, ostomy site relatively unremarkable. Some small amount of old stools noted on it, but stoma is otherwise unremarkable. No abdominal tenderness. Concern for potential obstruction especially with his history. We will gently rehydrate, get a CT scan of his abdomen to rule out obstruction, monitor closely and reassess. 7:[address] scan. Laboratory work-up demonstrates chronic thrombocytopenia. No white count. Hemoglobin stable at 12. Patient still has continued mild abdominal pain. Pain improved with fentanyl. Pending CT scan. 7:52 AM Patient's CAT scan shows evidence of any dilated loops of small bowel in the mid lower abdomen in close proximity to the anastomosis site concerning for de veloping small bowel obstruction. Patient's pain is stable. [facility] for [facility]. Patient will be signed out to my colleague Ciarra Marshall for follow-up on [facility] callback FINDINGS: Tubes, catheters and devices: Tubes catheter in place. Liver: Micronodular contour to the liver suggestive of cirrhosis. Subcentimeter cysts in the left lobe of the liver. Gallbladder and bile ducts: Normal. No calcified stones. No ductal dilation. Pancreas: Normal. No ductal dilation. Spleen: Mild splenomegaly. Adrenal glands: Normal. No mass. Kidneys and ureters: Normal. No hydronephrosis. Stomach and bowel: There is partial colectomy surgical change. Ostomy in the left lower quadrant. Dilated loops of small bowel in the mid lower abdomen in close proximity to the anastomosis. Small bowel obstruction is suspected. Appendix: No evidence of appendicitis. Intraperitoneal space: Unremarkable. No free air. No significant fluid collection. Vasculature: Atherosclerotic change of the abdominal vasculature. Lymph nodes: Unremarkable. No enlarged lymph nodes. Urinary bladder: Unremarkable as visualized. Reproductive: Unremarkable as visualized. Bones/joints: Unremarkable. No acute fracture. Soft tissues: Ventral wall hernia surgical repair IMPRESSION: 1. Dilated loops of small bowel in the mid lower abdomen in close proximity to the anastomosis site. Findings are suspicious for developing small bowel obstruction 2. Cirrhotic liver with tips stent in place. Splenomegaly. 3. Partial colectomy surgical change with ostomy in the left lower quadrant. Thank you for allowing us to participate in the care of your patient. Dictated and Authenticated by: Rani Alford DO 08/11/2023 7:42 AM Eastern Time ([place] & [place]) HPI General Date/Time Provider Initiated Documentation: 08/11/23 05:48 . 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 Patient states that over the last 24 hours he has had diminished ostomy output, as well as abdominal bloating and pain. He describes it as similar to his previous 20 small bowel obstructions. He denies any vomiting but admits to nausea. He denies any chest pain or shortness of breath. No blood in his ostomy. He has not had to empty his ostomy at all for the last 12 hours. No other complaints at this time. No other modifying factors. Related Data Home Medications Medication Instructions Recorded Confirmed apixaban 5 mg tablet (Eliquis) 5 mg PO BID 11/08/22 08/11/23 metformin 1,000 mg tablet 1,000 mg PO BID 11/08/22 08/11/23 pantoprazole 40 mg tablet,delayed 40 mg PO DAILY 11/08/22 08/11/23 release prazosin 5 mg capsule 10 mg PO QHS 11/08/22 08/11/23 pregabalin 50 mg capsule 50 mg PO BID 11/08/22 08/11/23 spironolactone 25 mg tablet 25 mg PO QAM 11/08/22 08/11/23 valsartan 40 mg tablet 40 mg PO BID 11/08/22 08/11/23 venlafaxine 150 mg 150 mg PO DAILY 11/08/22 08/11/23 capsule,extended release 24 hr tamsulosin 0.4 mg capsule 0.4 mg PO DAILY 11/29/22 08/11/23 nitroglycerin 0.4 mg sublingual 0.4 mg sublingual Q5 MIN PRN X3 02/10/23 08/11/23 tablet PRN #30 tabs ferrous sulfate 325 mg (65 mg 325 mg PO DAILY 03/08/23 08/11/23 iron) tablet empagliflozin 25 mg tablet 25 mg PO DAILY 04/09/23 08/11/23 furosemide 20 mg tablet (Lasix) 20 mg PO QAM 04/09/23 08/11/23 levothyroxine 200 mcg tablet 100 mcg (1/2 x 200 mcg) PO QAM #0 04/10/23 08/11/23 tabs ergocalciferol (vitamin D2) 1,250 1,250 mcg PO QWEEK 06/16/23 08/11/23 mcg (50,000 unit) capsule miconazole nitrate 2 % topical 1 applic topical BID PRN 06/16/23 08/11/23 powder acetaminophen 325 mg capsule 650 mg (2 x 325 mg) PO Q8H PRN #0 06/17/23 08/11/23 (Tylenol) caps carvedilol 3.125 mg tablet 3.125 mg PO BID #0 tabs 06/17/23 08/11/23 rifaximin 550 mg tablet 550 mg PO BID 07/07/23 08/11/23 Previous Rx's Medication Instructions Recorded nitroglycerin 0.4 mg sublingual 0.4 mg sublingual Q5 MIN PRN X3 02/10/23 tablet PRN #30 tabs levothyroxine 200 mcg tablet 100 mcg (1/2 x 200 mcg) PO QAM #0 04/10/23 tabs acetaminophen 325 mg capsule 650 mg (2 x 325 mg) PO Q8H PRN #0 06/17/23 (Tylenol) caps carvedilol 3.125 mg tablet 3.125 mg PO BID #0 tabs 06/17/23 Allergies Allergy/AdvReac Type Severity Reaction Status Date / Time Penicillins Allergy Mild Itching Unverified 07/07/23 14:53 morphine AdvReac Severe vomiting Unverified 07/07/23 14:53 mussels AdvReac Severe vomiting Unverified 07/07/23 14:53 General Stated Complaint: Abd Prob ANNA: 3 Review of Systems All systems reviewed & are unremarkable except as noted in HPI and below PFSH All Active Problems (Updated 08/11/23 @ 07:57 by Js Johns DO) SBO (small bowel obstruction) (Acute) Hypokalemia (Acute) Bradycardia (Acute) Multiple falls (Acute) Acute metabolic encephalopathy (Acute) Medication monitoring encounter (Acute) ANETTE (obstructive sleep apnea) (Chronic) Chest pain (Acute) CHF exacerbation (Acute) CHF (congestive heart failure) (Chronic) Medical History Anticoagulated COVID Chronic low back pain Recurrent intestinal obstruction History of colon cancer Palliative care encounter Followed by [facility] Chronic anticoagulation Portal hypertension Cirrhosis TIPs placed (?when, [facility]? 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, Dx [facility] as per pt Non-insulin dependent type 2 diabetes mellitus Incontinence Hypertension Scleral icterus Surgical History S/P TIPS (transjugular intrahepatic portosystemic shunt) Colostomy in place H/O left hemicolectomy Social History Smoking/Tobacco Use Status: Former Tobacco Use Smoking risk assessment performed?: Yes Alcohol Intake: former Drug use: Never Substance use type: does not use Housing: house Do you feel safe at home: Yes Do you feel safe in your relationship?: Yes Additional Social history: Lives with , son, and sick [id number] in [place], moved up from [place] in 2020. [place] . Exam Narrative Exam Narrative: 1.Const: Well-nourished, Well-developed, appearing stated age 2.Eyes: PERRL, no conjunctival injection, and symmetrical lids. 3.ENT: Atraumatic external nose and ears. Moist MM. Neck: Symmetric, trachea midline, No thyromegaly. 4.CVS: +S1/S2, No murmurs or gallops. Peripheral pulses 2+ and equal in all extremities. Brisk capillary refill in all extremities. 5.RESP: Unlabored respiratory effort. Clear to auscultation bilaterally. No wheezes rales or rhonchi 6.GI: Mildly distended. No guarding or rebound. Ostomy site intact. Small amount of dry stool noted on ostomy. No active drainage or discharge. Ostomy site nontender. 7.MSK: Normocephalic/Atraumatic, Extremities w/o deformity or ttp No cyanosis or clubbing, Normal movement of all extremities 8.Skin: Warm, Dry. No rashes or lesions. 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 Sensation grossly intact, no focal neurologic deficits. 10.Psych: (AAO) x3. Appropriate mood and affect Course Vital Signs Vital signs: Vital Signs Temperature 36.8 C 08/11/23 05:42 Pulse 73 08/11/23 05:42 Respiratory Rate 18 08/11/23 05:42 Blood Pressure 186/61 H 08/11/23 05:42 Pulse Oximetry 94 08/11/23 05:42 Temperature 36.8 C 08/11/23 05:42 Temperature Source Oral 08/11/23 05:42 Pulse 73 08/11/23 05:42 Respiratory Rate 18 08/11/23 05:42 Respiratory Effort Normal 08/11/23 05:48 Blood Pressure 186/61 H 08/11/23 05:42 Blood Pressure Position Sitting 08/11/23 05:42 Pulse Oximetry 94 08/11/23 05:42 Oxygen Delivery Method Room Air 08/11/23 05:42 Oxygen Flow Rate 0 08/11/23 05:42 Pain Level 4 08/11/23 05:42
[2023-08-11] MEDS: Normal Saline 500 ML IV (06:06)
[2023-08-11 06:17] LABS: Abs Immature Grans 0.02 10^3/uL (0.0-0.06); Absolute Basophil Count 0.03 10^3/uL (0.0-0.2); Absolute Eosinophil Count 0.26 10^3/uL (0.0-0.7); Absolute Lymphocyte Count 0.68 10^3/uL (1.2-3.4); Absolute Monocyte Count 0.51 10^3/uL (0.1-0.8); Absolute Neutrophil Count 3.61 10^3/uL (1.2-6.7); Basophils % 0.6; Eosinophils % 5.1; HCT 37.9 % (40.0-50.0); HGB 12.7 g/dL (13.5-17.5); Immature Grans % 0.4; Lymphocytes % 13.3; MCH 29.5 pg (27.0-33.0); MCHC 33.5 % (32.0-36.0); MCV 88 fL (80-95); MPV 11.1 fL (8.0-11.0); Neutrophils % 70.6; RDW 16.1 % (11.8-14.1); RDW-SD 51.8 fL; WBC 5.11 10^3/uL (4.4-10.8)
[2023-08-11 06:31] LABS: ALT 15 U/L (16-63); AST 28 U/L (15-37); Albumin 2.7 g/dL (3.4-5.0); Alkaline Phosphatase 147 U/L (46-116); Anion Gap 11.4 mmol/L (3-11); BUN 10 mg/dL (7-18); Bilirubin, Total 2.2 mg/dL (0.2-1.0); CO2 23.6 mmol/L (21.0-32.0); CREATININE 0.7 mg/dL (0.70-1.30); Calcium 9.2 mg/dL (8.5-10.1); Chloride 106 mmol/L (98-107); Estimated GFR 95.49 (mL/min/1.73m2); Glucose 188 mg/dL (74-106); Potassium 3.9 mmol/L (3.5-5.1); Sodium 141 mmol/L (136-145); Total Protein 6.4 g/dL (6.4-8.2)
[2023-08-11 06:43] LABS: Platelet Count 79 10^3/uL (130-400)
[2023-08-11 06:44] LABS: Diff Comment Diff Reviewed; RBC Morphology Normal
[2023-08-11] MEDS: fentaNYL 100 MCG/2 ML VIAL IVP (07:07)
--- NOTE | 2023-08-11 07:43 | DI.VRAD_ITS ---
PROCEDURE INFORMATION: Exam: CT Abdomen And Pelvis Without Contrast Exam date and time: 08/11/2023 6:30 AM Age: 78 years old Clinical indication: Abdominal pain; Additional info: Abd pain, suspect obstruction TECHNIQUE: Imaging protocol: Computed tomography of the abdomen and pelvis without contrast. COMPARISON: CT CHEST/ABD/PEL W 06/16/2023 3:42 PM FINDINGS: Tubes, catheters and devices: Tubes catheter in place. Liver: Micronodular contour to the liver suggestive of cirrhosis. Subcentimeter cysts in the left lobe of the liver. Gallbladder and bile ducts: Normal. No calcified stones. No ductal dilation. Pancreas: Normal. No ductal dilation. Spleen: Mild splenomegaly. Adrenal glands: Normal. No mass. Kidneys and ureters: Normal. No hydronephrosis. Stomach and bowel: There is partial colectomy surgical change. Ostomy in the left lower quadrant. Dilated loops of small bowel in the mid lower abdomen in close proximity to the anastomosis. Small bowel obstruction is suspected. Appendix: No evidence of appendicitis. Intraperitoneal space: Unremarkable. No free air. No significant fluid collection. Vasculature: Atherosclerotic change of the abdominal vasculature. Lymph nodes: Unremarkable. No enlarged lymph nodes. Urinary bladder: Unremarkable as visualized. Reproductive: Unremarkable as visualized. Bones/joints: Unremarkable. No acute fracture. Soft tissues: Ventral wall hernia surgical repair IMPRESSION: 1. Dilated loops of small bowel in the mid lower abdomen in close proximity to the anastomosis site. Findings are suspicious for developing small bowel obstruction 2. Cirrhotic liver with tips stent in place. Splenomegaly. 3. Partial colectomy surgical change with ostomy in the left lower quadrant. Dictated and Authenticated by: Rani Alford MD. Ordering:CASEY Weinstein MD
--- NOTE | 2023-08-11 08:07 | W.EDPROG ---
Date of service: 08/11/23 Time of Service: 08:07 Medical Decision Making 2008: Care assumed from provider (Dr. Johns) Please see their initial HPI, PE, and documentation. Discussed patient details and case and pending workup and disposition. Patient is hemodynamically stable, and alert and oriented. At the time of signout awaiting callback from [facility] for patient request for transfer. In short patient is a 78-year-old male with a history of frequent small bowel obstructions, colectomy rectal cancer previously had agent orange which was the cause of the rectal cancer this is #21 of small bowel obstruction no vomiting reported at signout. He is slightly thrombocytopenic which is chronic platelets are in the 70s or 80s he is on Eliquis he has not had any ostomy output for the last 18 to 20 hours. If not transfer most likely admission. 2012: Spoke with director housekeeping at the [facility] they unfortunately do not have any beds at this time. 0816: Discussed plan with patient who verbalizes understanding, surgery paged. Will seek admission here, will consider speaking with hospitalist also. 0829: Spoke with Dr. Reece who recommends a Gastrografin challenge, x-ray KUB ordered for 1 hour, spoke with radiology Gastrografin p.o. ordered. Will re-eval for admission in 1 hour approximately. 1113: Patient has had a soft large bowel movement he reports that he feels better. [facility]. I will verify with Dr. Reece that he is able to be discharged home will discuss strict return instructions. Patient did have a large bowel movement prior to lens generating machine tender staff at bedside side to help clean up. Patient discharged in hemodynamically stable condition. This text was generated using [employer] system, please disregard any oddities of phrase or misspellings. Medical Records Medical records reviewed: Yes I reviewed the patient's medical records. Imaging Data Radiologic Study: Imaging: CT Scan Radiologist's impression: VRAD Report: Exam: CT Abdomen And Pelvis Without Contrast Exam date and time: 08/11/2023 6:30 AM Age: 78 years old Clinical indication: Abdominal pain; Additional info: Abd pain, suspect obstruction TECHNIQUE: Imaging protocol: Computed tomography of the abdomen and pelvis without contrast. COMPARISON: CT CHEST/ABD/PEL W 06/16/2023 3:42 PM FINDINGS: Tubes, catheters and devices: Tubes catheter in place. Liver: Micronodular contour to the liver suggestive of cirrhosis. Subcentimeter cysts in the left lobe of the liver. Gallbladder and bile ducts: Normal. No calcified stones. No ductal dilation. Pancreas: Normal. No ductal dilation. Spleen: Mild splenomegaly. Adrenal glands: Normal. No mass. Kidneys and ureters: Normal. No hydronephrosis. Stomach and bowel: There is partial colectomy surgical change. Ostomy in the left lower quadrant. Dilated loops of small bowel in the mid lower abdomen in close proximity to the anastomosis. Small bowel obstruction is suspected. Appendix: No evidence of appendicitis. Intraperitoneal space: Unremarkable. No free air. No significant fluid collection. Vasculature: Atherosclerotic change of the abdominal vasculature. Lymph nodes: Unremarkable. No enlarged lymph nodes. Urinary bladder: Unremarkable as visualized. Reproductive: Unremarkable as visualized. Bones/joints: Unremarkable. No acute fracture. Soft tissues: Ventral wall hernia surgical repair IMPRESSION: 1. Dilated loops of small bowel in the mid lower abdomen in close proximity to the anastomosis site. Findings are suspicious for developing small bowel obstruction 2. Cirrhotic liver with tips stent in place. Splenomegaly. 3. Partial colectomy surgical change with ostomy in the left lower quadrant. Thank you for allowing us to participate in the care of your patient. Dictated and Authenticated by: Rani Alford DO Lab Data Lab results reviewed: Yes I reviewed the patient's lab results. Labs: Laboratory Tests Range/Units 08/11/23 06:01 WBC (4.4-10.8) 10^3/uL 5.11 RBC (4.36-5.78) 10^6/uL 4.30 L Hgb (13.5-17.5) g/dL 12.7 L Hct (40.0-50.0) % 37.9 L MCV (80-95) fL 88 MCH (27.0-33.0) pg 29.5 MCHC (32.0-36.0) % 33.5 RDW (11.8-14.1) % 16.1 H Plt Count (130-400) 10^3/uL 79 L MPV (8.0-11.0) fL 11.1 H Immature Gran % 0.4 Neutrophils % 70.6 Lymphocytes % 13.3 Monocytes % 10.0 Eosinophils % 5.1 Basophils % 0.6 Nucleated RBC % (0.0-0.3) % 0.0 Absolute Neutrophils (1.2-6.7) 10^3/uL 3.61 Absolute Lymphocytes (1.2-3.4) 10^3/uL 0.68 L Absolute Monocytes (0.1-0.8) 10^3/uL 0.51 Absolute Eosinophils (0.0-0.7) 10^3/uL 0.26 Absolute Basophils (0.0-0.2) 10^3/uL 0.03 RBC Morphology Normal Sodium (136-145) mmol/L 141 Potassium (3.5-5.1) mmol/L 3.9 Chloride (98-107) mmol/L 106 Carbon Dioxide (21.0-32.0) mmol/L 23.6 Anion Gap (3-11) mmol/L 11.4 H BUN (7-18) mg/dL 10 Creatinine (0.70-1.30) mg/dL 0.7 Est GFR (CKD-EPI 2020) (mL/min/1.73m2) 95.49 Glucose (74-106) mg/dL 188 H Calcium (8.5-10.1) mg/dL 9.2 Total Bilirubin (0.2-1.0) mg/dL 2.2 H AST (15-37) U/L 28 ALT (16-63) U/L 15 L Alkaline Phosphatase (46-116) U/L 147 H Total Protein (6.4-8.2) g/dL 6.4 Albumin (3.4-5.0) g/dL 2.7 L Sign Out Sign Out Data: Sign Out Comment: Ostomy, small bowel obstruction, pending [facility] callback Last updated by Js Johns DO at 08/11/23 08:04 Discharge Plan Disposition Patient Disposition: Home Condition: Improving Discharge Details Clinical Impression: SBO (small bowel obstruction) Primary Care Provider: Maryann Whitt ED Provider: Ciarra Torres Home Meds and New Rx's Prescriptions: Continued venlafaxine 150 mg Capsule,Extended Release 24hr 150 mg PO DAILY spironolactone 25 mg Tablet 25 mg PO QAM prazosin 5 mg Capsule 10 mg PO QHS pantoprazole 40 mg Tablet,Delayed Release (Dr/Ec) 40 mg PO DAILY metformin 1,000 mg Tablet 1,000 mg PO BID valsartan 40 mg Tablet 40 mg PO BID pregabalin 50 mg Capsule 50 mg PO BID Eliquis 5 mg Tablet 5 mg PO BID Patient Comments: not taking nitroglycerin 0.4 mg Tablet, Sublingual 0.4 mg sublingual Q5 MIN PRN X3 PRNQty: 30 0RF ergocalciferol (vitamin D2) 1,250 mcg (50,000 unit) Capsule 1,250 mcg PO QWEEK Patient Comments: not taking miconazole nitrate 2 % Powder 1 applic TOPICAL BID PRN carvedilol 3.125 mg tablet 3.125 mg PO BID Qty: 0 0RF Patient Comments: TAKE 1 TABLET (3.125MG) BY MOUTH TWICE DAILY Rx Instructions: with meals acetaminophen [Tylenol] 325 mg Capsule 650 mg PO Q8H MDD 3000 PRNQty: 0 0RF rifaximin 550 mg Tablet 550 mg PO BID tamsulosin 0.4 mg Capsule 0.4 mg PO DAILY ferrous sulfate 325 mg (65 mg iron) Tablet 325 mg PO DAILY empagliflozin 25 mg Tablet 25 mg PO DAILY furosemide [Lasix] 20 mg tablet 20 mg PO QAM levothyroxine 200 mcg Tablet 100 mcg PO QAM Qty: 0 0RF Discharge Instructions Instructions: Constipation (ED), Bowel Obstruction (ED) Additional Instructions: Please keep your appointment at the [facility] as previously scheduled. Please return to the ER or be seen sooner for any fever, vomiting, bloody stool or concerns. Follow up with primary care provider in 2-3 days. Return to ED sooner if any worsening or concerns. Increase oral fluids. Please take Tylenol with food every 4-6 hours as needed for pain and swelling. Referrals: [facility] [Outside] - 2 days [facility] [Outside] - 2 days Maryann Whitt [Primary Care Provider] - 5 days
[2023-08-11 08:42] LABS: Bilirubin Negative (Negative); Blood Trace-intact (Negative); Clarity Cloudy (Clear); Glucose >=1000 mg/dL (Negative); Ketones 15 mg/dL (Negative); Leukocyte Esterase Negative (Negative); Nitrite Negative (Negative); pH 6.5 (5-8)
[2023-08-11 08:49] LABS: Bacteria Many HPF (Negative); C & S Indicated? Yes; Casts 0-2 Hyaline LPF (Negative); Crystals Negative HPF (Negative); Epithelial Cells Few HPF (Negative); Mucus Negative (Negative); RBC 0-2 HPF (0-2)
--- NOTE | 2023-08-11 09:15 | DI.RAD_ITS ---
Exam(s) XR ABDOMEN FLAT PLATE EXAM: 2D digital imaging was performed. CLINICAL HISTORY: Small bowel obstruction, Gastrograffin challenge. COMPARISON: CR,XR XR ABDOMEN FLAT PLATE from 01/25/2023 TECHNIQUE: Supine views of the abdomen was performed. Two images were obtained. FINDINGS: LUNG BASES: Clear. BOWEL GAS PATTERN: Mildly dilated loops of small bowel are seen. Oral contrast was administered for this examination. Images were obtained 1 hour post Gastrografin administration. The contrast has no t advanced into the colon. The findings are suggestive of a small-bowel obstruction. FREE AIR: None. CALCIFICATIONS: No radiopaque calcifications. OSSEOUS STRUCTURES: Normal for age. OTHER FINDINGS: Surgical clips are seen in the abdomen and pelvis. The patient has a TIPS. IMPRESSION: Findings consistent with a small-bowel obstruction. DATA REPOSITORY: RADIATION DOSE DELIVERED:
[2023-08-11] MEDS: Normal Saline 1,000 ML 125 ML IV (10:36)
== END 2023-08-11 12:13 | disposition home or self-care (01) ==
PROVIDERS: Student in an Organized Health Care Education/Training Program; Emergency Provider Registered Nurse Emergency; PCP Nurse Practitioner Adult Health
DX: R10.9 Unspecified abdominal pain (principal); K56.690 Other partial intestinal obstruction; K74.60 Unspecified cirrhosis of liver; R16.1 Splenomegaly, not elsewhere classified; D69.6 Thrombocytopenia, unspecified; I10 Essential (primary) hypertension; E11.9 Type 2 diabetes mellitus without complications; Z79.84 Long term (current) use of oral hypoglycemic drugs; Z79.01 Long term (current) use of anticoagulants; Z85.048 Personal history of other malignant neoplasm of rectum, rectosigmoid junction, and anus; Z77.29 Contact with and (suspected) exposure to other hazardous substances
CPT/HCPCS: 80053; 87077; 96361; 96374; 96375; 99284; 74018; 74176; 81003; 81015; 85025; 87086; 87186; J0131; J3010

== ENCOUNTER 2023-09-21 12:37 | Emergency (ER) | payer OTHER, SELFPAY ==
[2023-09-21] VITALS (35 sets, daily range): BP systolic 148–188; BP diastolic 50–74; PULSE 59–77; RESP 18; TEMP 37.3; O2SAT 90–97
--- NOTE | 2023-09-21 12:30 | DI.CT_ITS ---
Exam(s) CT ABDOMEN PELVIS W EXAM: CT ABDOMEN PELVIS W CLINICAL HISTORY: Concern for SBO TECHNIQUE: Imaging Protocol: Axial computed tomography images with coronal and sagittal reformatted images were created and reviewed CONTRAST MATERIAL: Intravenous: Omnipaque 350 Contrast volume:100 mL Oral: No COMPARISON: CT CT ABDOMEN PELVIS WO from 08/11/2023 FINDINGS: ABDOMEN: Lung Bases: Cardiomegaly. There is dependent atelectasis in the lung bases. Liver: The liver has a lobulated contour consistent with hepatic cirrhosis. There is a TIPS in place in the liver. No measurable mass. Portal, Superior Mesenteric, and Splenic Veins: Unremarkable. Gallbladder and Biliary Tract: No radiodense calculus or dilation. Pancreas: Normal density, no abnormal calcifications or inflammatory process. Small cystic lesion in the uncinate process of the pancreas is unchanged. There is a stable associated calcification. Spleen: Splenomegaly. Adrenals: No masses seen. Kidneys: Normal size, contour and axis. No radiodense stones or obstructive uropathy. No masses seen. Abdominal Aorta: Abdominal portion non-dilated. Atherosclerosis. Bowel: There has been resection of the rectosigmoid colon. There is a left lower quadrant colostomy in place. There is a right-sided enterocolic anastomosis. There is a bowel anastomosis seen in the central abdomen. No evidence of bowel obstruction. There is mild wall thickening seen in small ever l loops in the central abdomen. No evidence of appendicitis. Peritoneal Cavity: No ascites, collection or mesenteric inflammatory response. No free air. Lymph Nodes: Within normal limits. Bones: Within normal limits for the patient's age. Soft Tissues: Small anterior abdominal wall fat containing hernias are seen. PELVIS: Bladder: Symmetric distention, no gross wall thickening. Reproductive Organs: Unremarkable as visualized. Lymph Nodes: Within normal limits. Bones: Within normal limits for the patient's age. IMPRESSION: 1. No definite evidence to suggest bowel obstruction. 2. Postsurgical changes with a rectosigmoid resection and left lower quadrant colostomy. 3. Bowel anastomoses seen in the central abdomen and in the right abdomen. Nonspecific bowel wall th ickening seen in small bowel loops in the central abdomen. This may represent a enteritis. 4. Incidental finding seen in the abdomen and pelvis as described above. RADIATION DOSE DELIVERED: Total DLP DATA REPOSITORY: All CT scans at this facility are submitted to the National Radiology Data Registry (NRDR) Dose Index Registry (DIR) with the [employer] ([employer]). RADIATION OPTIMIZATION: All CT scans at this facility use at least one of these dose optimization te chniques: automated exposure control; mA and/or kV adjustment per patient size (includes targeted exa ms where dose is matched to clinical indication); or iterative reconstruction.
--- NOTE | 2023-09-21 12:36 | ED.GENADUL_ITS ---
Discharge Plan Disposition Patient Disposition: Home Discharge Details Clinical Impression: Acute lactic acidosis, RODOLFO (acute kidney injury), Acute generalized abdominal pain Primary Care Provider: Maryann Whitt ED Provider: Aftab Esparza Home Meds and New Rx's Prescriptions: Continued venlafaxine 150 mg Capsule,Extended Release 24hr 150 mg PO DAILY spironolactone 25 mg Tablet 25 mg PO QAM prazosin 5 mg Capsule 10 mg PO QHS pantoprazole 40 mg Tablet,Delayed Release (Dr/Ec) 40 mg PO DAILY metformin 1,000 mg Tablet 1,000 mg PO BID valsartan 40 mg Tablet 40 mg PO BID pregabalin 50 mg Capsule 50 mg PO BID Eliquis 5 mg Tablet 5 mg PO BID Patient Comments: not taking nitroglycerin 0.4 mg Tablet, Sublingual 0.4 mg sublingual Q5 MIN PRN X3 PRNQty: 30 0RF ergocalciferol (vitamin D2) 1,250 mcg (50,000 unit) Capsule 1,250 mcg PO QWEEK Patient Comments: not taking miconazole nitrate 2 % Powder 1 applic TOPICAL BID PRN carvedilol 3.125 mg tablet 3.125 mg PO BID Qty: 0 0RF Patient Comments: TAKE 1 TABLET (3.125MG) BY MOUTH TWICE DAILY Rx Instructions: with meals acetaminophen [Tylenol] 325 mg Capsule 650 mg PO Q8H MDD 3000 PRNQty: 0 0RF rifaximin 550 mg Tablet 550 mg PO BID tamsulosin 0.4 mg Capsule 0.4 mg PO DAILY ferrous sulfate 325 mg (65 mg iron) Tablet 325 mg PO DAILY empagliflozin 25 mg Tablet 25 mg PO DAILY furosemide [Lasix] 20 mg tablet 20 mg PO QAM levothyroxine 200 mcg Tablet 100 mcg PO QAM Qty: 0 0RF Discharge Instructions Instructions: Abdominal Pain (ED) Additional Instructions: You are seen in the emergency department for your generalized abdominal pain. Your CAT scan showed no sign of any blockages. Please return to the emergency department if you develop any worsening abdominal pain nausea vomiting or if you develop any fevers. HPI General Date/Time Provider Initiated Documentation: 09/21/23 12:40 . HPI Narrative: MDM This is a chronically ill appearing but normothermic and not tachycardic 78-year-old male with multiple prior SBO's now with decreased ostomy output concerning for the possibility of recurrent SBO for which patient will undergo a CT abdomen pelvis with IV contrast. No pain out of proportion to suggest necrotizing soft tissue infection. I am not suspicious for sepsis however I did order a lactate to assess for any mesenteric ischemia. No dysuria nor frequency to suggest UTI. No chest pain to suggest ACS. No history of fall so doubt pneumothorax. No vomiting however given nausea will treat with ondansetron. No rash to abdomen to suggest zoster. No right lower quadrant tenderness to suggest appendicitis. No right upper quadrant tenderness to suggest acute cholecystitis. No history of ethanol withdrawal nor ethanol use to suggest withdrawal. 1:30 PM Acute lactic acidosis with a serum lactate of 4.3 similar to prior. Patient is receiving 500 cc of crystalloid. 2:24 PM CBC lacks anemia but does show persistent thrombocytopenia similar to prior. Comprehensive metabolic panel showing RODOLFO. Mild hyperglycemia but no anion gap normal bicarbonate??not consistent with DKA. Mildly elevated LFTs similar to prior. Patient's pain is improved status post fentanyl. We will repeat lactate at 4:30 PM. 2:40 PM Lactate drawn slightly early downtrending to 3.5. Will order 500 additional cc of crystalloid. 4 PM Met with the patient. He felt markedly improved. He felt as if he had some movement in his abdomen. He has not been vomiting. He wants to try something to eat. His CT scan showed no signs of obstruction. We will complete a p.o. trial. 4:30 PM Patient passes p.o. trial without nausea nor vomiting. He had a small amount of output in his ostomy bag. Repeat lactate and basic metabolic panel pending. Anticipate discharge. 5 PM Patient's lactate up trended again. He continues to feel well. He tolerated p.o. I have signed him out to Dr. Esparza pending clinical reassessment and repeat lactate. If his lactate is not uptrending and he continues to feel well and he has an improving RODOLFO anticipate he will be appropriate for discharge however will defer this decision to Dr. Esparza pending reassessment of labs and clinical picture. I have written patient with continued discharge instructions. Chronic conditions affecting the care of the patient: ANETTE CHF colostomy History obtained from an outside historian: Paramedics [place] [facility] [place] Medications: Fentanyl Social determinants of health affecting disposition: N/A Management discussed with: N/A Treatment/interventions considered: Hospitalization but deferred given improving symptoms Response to therapies provided: N/A HPI This is a 78-year-old male with history of multiple prior SBO's and colostomy secondary to remote surgery in [place] approximately 30 years ago now with recurrent abdominal pain. Patient reports sudden onset abdominal pain this morning. Pain is located in the right-hand side of his abdomen. Feels reminiscent of prior episodes of SBO. Has been nauseous but not been vomiting. No output since last night from his ostomy. No fevers. No chest pain. No shortness of breath. No dysuria nor frequency. Denies routine tobacco, ethanol, and illicits. No falls onto abdomen. Exam General: Chronically ill-appearing in no acute distress speaking in complete sentences. Head: Normocephalic, atraumatic. Eye: Extraocular eye movements intact. No conjunctival injection. No scleral icterus. Ear, nose, mouth, throat: Grossly normal inspection. Normal voice, handling secretions normally. Neck: Trachea midline. Cardiovascular: Well-perfused distal extremities. Regular rate and rhythm Respiratory: Nonlabored respiration.clear lungs bilaterally. Gastrointestinal: Nondistended abdomen. Soft. No rebound. No guarding. No output in ostomy. No rash to abdomen. Musculoskeletal: No edema. Moving all 4 extremities spontaneously. Skin: Normal for age and race, grossly normal temperature and turgor. No acute rash. Neurologic: Alert and appropriate, no apparent acute deficits. Psychiatric: Mood and manner are appropriate. Grooming and personal hygiene are appropriate. Related Data Home Medications Medication Instructions Recorded Confirmed apixaban 5 mg tablet (Eliquis) 5 mg PO BID 11/08/22 09/21/23 metformin 1,000 mg tablet 1,000 mg PO BID 11/08/22 09/21/23 pantoprazole 40 mg tablet,delayed 40 mg PO DAILY 11/08/22 09/21/23 release prazosin 5 mg capsule 10 mg PO QHS 11/08/22 09/21/23 pregabalin 50 mg capsule 50 mg PO BID 11/08/22 09/21/23 spironolactone 25 mg tablet 25 mg PO QAM 11/08/22 09/21/23 valsartan 40 mg tablet 40 mg PO BID 11/08/22 09/21/23 venlafaxine 150 mg 150 mg PO DAILY 11/08/22 09/21/23 capsule,extended release 24 hr tamsulosin 0.4 mg capsule 0.4 mg PO DAILY 11/29/22 09/21/23 nitroglycerin 0.4 mg sublingual 0.4 mg sublingual Q5 MIN PRN X3 02/10/23 09/21/23 tablet PRN #30 tabs ferrous sulfate 325 mg (65 mg 325 mg PO DAILY 03/08/23 09/21/23 iron) tablet empagliflozin 25 mg tablet 25 mg PO DAILY 04/09/23 09/21/23 furosemide 20 mg tablet (Lasix) 20 mg PO QAM 04/09/23 09/21/23 levothyroxine 200 mcg tablet 100 mcg (1/2 x 200 mcg) PO QAM #0 04/10/23 09/21/23 tabs ergocalciferol (vitamin D2) 1,250 1,250 mcg PO QWEEK 06/16/23 09/21/23 mcg (50,000 unit) capsule miconazole nitrate 2 % topical 1 applic topical BID PRN 06/16/23 09/21/23 powder acetaminophen 325 mg capsule 650 mg (2 x 325 mg) PO Q8H PRN #0 06/17/23 09/21/23 (Tylenol) caps carvedilol 3.125 mg tablet 3.125 mg PO BID #0 tabs 06/17/23 09/21/23 rifaximin 550 mg tablet 550 mg PO BID 07/07/23 09/21/23 Previous Rx's Medication Instructions Recorded nitroglycerin 0.4 mg sublingual 0.4 mg sublingual Q5 MIN PRN X3 02/10/23 tablet PRN #30 tabs levothyroxine 200 mcg tablet 100 mcg (1/2 x 200 mcg) PO QAM #0 04/10/23 tabs acetaminophen 325 mg capsule 650 mg (2 x 325 mg) PO Q8H PRN #0 06/17/23 (Tylenol) caps carvedilol 3.125 mg tablet 3.125 mg PO BID #0 tabs 06/17/23 Allergies Allergy/AdvReac Type Severity Reaction Status Date / Time Penicillins Allergy Mild Itching Unverified 09/21/23 12:43 morphine AdvReac Severe vomiting Unverified 09/21/23 12:43 mussels AdvReac Severe vomiting Unverified 09/21/23 12:43 General ANNA: 3 PFSH All Active Problems (Updated 09/21/23 @ 16:33 by Elia Dickinson MD) Acute generalized abdominal pain (Acute) RODOLFO (acute kidney injury) (Acute) Acute lactic acidosis (Acute) Hypokalemia (Acute) Bradycardia (Acute) Multiple falls (Acute) Acute metabolic encephalopathy (Acute) Medication monitoring encounter (Acute) ANETTE (obstructive sleep apnea) (Chronic) Chest pain (Acute) CHF exacerbation (Acute) CHF (congestive heart failure) (Chronic) Medical History Anticoagulated COVID Chronic low back pain Recurrent intestinal obstruction History of colon cancer Palliative care encounter Followed by [facility] Chronic anticoagulation Portal hypertension Cirrhosis TIPs [place] ([place] [facility] [place] 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, Dx 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 [place].
[2023-09-21] MEDS: Ondansetron 4 MG/2 ML VIAL IVP (12:57)
[2023-09-21] MEDS: Normal Saline 500 ML IV ×2 (12:58→15:12)
[2023-09-21] MEDS: fentaNYL 100 MCG/2 ML VIAL 50 MCG IVP (12:58)
[2023-09-21 13:10] LABS: Abs Immature Grans 0.01 10^3/uL (0.0-0.06); Absolute Basophil Count 0.02 10^3/uL (0.0-0.2); Absolute Eosinophil Count 0.17 10^3/uL (0.0-0.7); Absolute Lymphocyte Count 0.54 10^3/uL (1.2-3.4); Absolute Monocyte Count 0.38 10^3/uL (0.1-0.8); Absolute Neutrophil Count 3.69 10^3/uL (1.2-6.7); Basophils % 0.4; Eosinophils % 3.5; HCT 43.8 % (40.0-50.0); HGB 14.8 g/dL (13.5-17.5); Immature Grans % 0.2; Lymphocytes % 11.2; MCH 30.1 pg (27.0-33.0); MCHC 33.8 % (32.0-36.0); MCV 89 fL (80-95); MPV 10.7 fL (8.0-11.0); Monocytes % 7.9; Neutrophils % 76.8; RBC 4.91 10^6/uL (4.36-5.78); RDW 14.5 % (11.8-14.1); RDW-SD 46.5 fL; WBC 4.81 10^3/uL (4.4-10.8)
[2023-09-21 13:12] LABS: Lactate 4.3 mmol/L (0.6-1.4)
[2023-09-21 13:34] LABS: ALT 15 U/L (16-63); AST 32 U/L (15-37); Alkaline Phosphatase 125 U/L (46-116); Anion Gap 9.8 mmol/L (3-11); BUN 12 mg/dL (7-18); Bilirubin, Total 2.1 mg/dL (0.2-1.0); CO2 26.2 mmol/L (21.0-32.0); Chloride 109 mmol/L (98-107); Glucose 153 mg/dL (74-106); Potassium 4.2 mmol/L (3.5-5.1); Sodium 145 mmol/L (136-145); Total Protein 6.9 g/dL (6.4-8.2)
[2023-09-21 14:01] LABS: Diff Comment Diff Reviewed; Platelet Count 72 10^3/uL (130-400); RBC Morphology Normal
[2023-09-21 14:39] LABS: Lactate 3.5 mmol/L (0.6-1.4)
[2023-09-21] MEDS: Normal Saline - Diluent 50 ML VIAL IJ (15:01)
[2023-09-21] MEDS: Omnipaque 350 MG/ML 100 ML BTL IJ (15:02)
[2023-09-21] MEDS: Normal Saline Flush 10 ML SYR IVP (15:03)
--- NOTE | 2023-09-21 15:27 | DI.VRAD_ITS ---
PROCEDURE INFORMATION: Exam: CT Abdomen And Pelvis With Contrast Exam date and time: 09/21/2023 2:44 PM Age: 78 years old Clinical indication: Other: Concern for sbo; Prior surgery; Surgery date: 6+ months; Surgery type: Colostomy, tips left hemicolectomy; Patient HX: Colon CA TECHNIQUE: Imaging protocol: Computed tomography of the abdomen and pelvis with contrast. Contrast material: OMNIPAQUE 350; Contrast volume: 100 ml; Contrast route: INTRAVENOUS (IV); COMPARISON: CT ABDOMEN PELVIS WO 08/11/2023 6:30 AM FINDINGS: Lungs: The visualized lung bases are clear. Liver: Micronodular contour of the liver is again noted. No liver mass. TIPS is in place. Gallbladder and bile ducts: No gallstones. No biliary ductal dilatation. Pancreas: 1.5 cm well-circumscribed round hypodense lesion in the head of the pancreas with dependent calcification is unchanged. No dilatation of the pancreatic duct. There is also chunky calcification within the uncinate process. Spleen: Enlarged spleen is again noted. Adrenal glands: Normal. No mass. Kidneys and ureters: Normal. No hydronephrosis. Stomach and bowel: Status post rectosigmoid resection. Surgical clips in the presacral region are stable. Left lower quadrant colostomy. No evidence of bowel obstruction. Appendix: No evidence of appendicitis. Intraperitoneal space: No free fluid or free air in the abdomen and pelvis. Vasculature: Atherosclerotic calcifications of the abdominal aorta and iliac arteries with no aneurysm or dissection. Lymph nodes: Unremarkable. No enlarged lymph nodes. Urinary bladder: Unremarkable as visualized. Reproductive: Unremarkable as visualized. Bones/joints: Degenerative changes in the lumbar spine. No acute bone findings. Soft tissues: Unremarkable. IMPRESSION: 1. No acute findings. 2. Stable findings as described above. Dictated and Authenticated by: Jt Lovelace MD. Ordering:CHITRA Rodrigez MD
[2023-09-21 16:48] LABS: Lactate 4.4 mmol/L (0.6-1.4)
[2023-09-21 17:02] LABS: Anion Gap 11.2 mmol/L (3-11); BUN 13 mg/dL (7-18); CO2 22.8 mmol/L (21.0-32.0); CREATININE 0.9 mg/dL (0.70-1.30); Calcium 9.3 mg/dL (8.5-10.1); Chloride 109 mmol/L (98-107); Estimated GFR 88.51 (mL/min/1.73m2); Glucose 133 mg/dL (74-106); Potassium 4.8 mmol/L (3.5-5.1); Sodium 143 mmol/L (136-145)
[2023-09-21 17:14] LABS: Lactate 4.6 mmol/L (0.6-1.4)
--- NOTE | 2023-09-21 17:23 | W.EDPROG ---
Date of service: 09/21/23 Time of Service: 17:23 Medical Decision Making Patient feels greatly improved from upon arrival. Patient is nonperitoneal resting comfortably abdomen soft nontender nondistended. Hemodynamically stable afebrile nontoxic. Patient is tolerated p.o. during his ED visit. CT abdomen pelvis unremarkable. Patient does have uptrending lactate however has received IV fluids and is tolerating p.o. Patient does not appear dehydrated or septic. No ischemic symptoms at this time. Consider resolving/resolved partial SBO earlier today. Given great clinical improvement patient be discharged home will follow-up close with primary care physician. Given strict return precautions for any worsening symptoms Discharge Plan Disposition Patient Disposition: Home Discharge Details Clinical Impression: Abdominal pain Primary Care Provider: Maryann Whitt ED Provider: Aftab Esparza Home Meds and New Rx's Prescriptions: Continued venlafaxine 150 mg Capsule,Extended Release 24hr 150 mg PO DAILY spironolactone 25 mg Tablet 25 mg PO QAM prazosin 5 mg Capsule 10 mg PO QHS pantoprazole 40 mg Tablet,Delayed Release (Dr/Ec) 40 mg PO DAILY metformin 1,000 mg Tablet 1,000 mg PO BID valsartan 40 mg Tablet 40 mg PO BID pregabalin 50 mg Capsule 50 mg PO BID Eliquis 5 mg Tablet 5 mg PO BID Patient Comments: not taking nitroglycerin 0.4 mg Tablet, Sublingual 0.4 mg sublingual Q5 MIN PRN X3 PRNQty: 30 0RF ergocalciferol (vitamin D2) 1,250 mcg (50,000 unit) Capsule 1,250 mcg PO QWEEK Patient Comments: not taking miconazole nitrate 2 % Powder 1 applic TOPICAL BID PRN carvedilol 3.125 mg tablet 3.125 mg PO BID Qty: 0 0RF Patient Comments: TAKE 1 TABLET (3.125MG) BY MOUTH TWICE DAILY Rx Instructions: with meals acetaminophen [Tylenol] 325 mg Capsule 650 mg PO Q8H MDD 3000 PRNQty: 0 0RF rifaximin 550 mg Tablet 550 mg PO BID tamsulosin 0.4 mg Capsule 0.4 mg PO DAILY ferrous sulfate 325 mg (65 mg iron) Tablet 325 mg PO DAILY empagliflozin 25 mg Tablet 25 mg PO DAILY furosemide [Lasix] 20 mg tablet 20 mg PO QAM levothyroxine 200 mcg Tablet 100 mcg PO QAM Qty: 0 0RF Discharge Instructions Instructions: Abdominal Pain (ED) Additional Instructions: Please follow-up closely with your primary care physician. Please return to the emergency department for any worsening symptoms
== END 2023-09-21 17:56 | disposition home or self-care (01) ==
PROVIDERS: Emergency Medicine; Emergency Provider Emergency Medicine; PCP Nurse Practitioner Adult Health
DX: E87.1 Hypo-osmolality and hyponatremia (principal); N17.9 Acute kidney failure, unspecified; R10.84 Generalized abdominal pain; E11.9 Type 2 diabetes mellitus without complications; Z79.84 Long term (current) use of oral hypoglycemic drugs; Z79.01 Long term (current) use of anticoagulants; I10 Essential (primary) hypertension
CPT/HCPCS: 00123; 80048; 80053; 96361; 96374; 96375; 99285; 74177; 83605; 85025; 99284; J2405; J3010; J3490

== ENCOUNTER 2023-09-22 10:32 | Emergency (ER) | payer OTHER, SELFPAY ==
[2023-09-22] VITALS (7 sets, daily range): BP systolic 169–191; BP diastolic 56–70; PULSE 56–69; RESP 15–22; TEMP 37.2; O2SAT 94–96
--- NOTE | 2023-09-22 10:29 | ED.GENADUL_ITS ---
Discharge Plan Disposition Patient Disposition: Home Condition: Improving Discharge Details Clinical Impression: Enteritis, Pancreatitis Primary Care Provider: Maryann Whitt ED Provider: James Sahu Meds and New Rx's Prescriptions: New dicyclomine 10 mg capsule 10 mg PO BID Qty: 20 0RF Continued venlafaxine 150 mg Capsule,Extended Release 24hr 150 mg PO DAILY spironolactone 25 mg Tablet 25 mg PO QAM prazosin 5 mg Capsule 10 mg PO QHS pantoprazole 40 mg Tablet,Delayed Release (Dr/Ec) 40 mg PO DAILY metformin 1,000 mg Tablet 1,000 mg PO BID valsartan 40 mg Tablet 40 mg PO BID pregabalin 50 mg Capsule 50 mg PO BID Eliquis 5 mg Tablet 5 mg PO BID Patient Comments: not taking nitroglycerin 0.4 mg Tablet, Sublingual 0.4 mg sublingual Q5 MIN PRN X3 PRNQty: 30 0RF ergocalciferol (vitamin D2) 1,250 mcg (50,000 unit) Capsule 1,250 mcg PO QWEEK Patient Comments: not taking miconazole nitrate 2 % Powder 1 applic TOPICAL BID PRN carvedilol 3.125 mg tablet 3.125 mg PO BID Qty: 0 0RF Patient Comments: TAKE 1 TABLET (3.125MG) BY MOUTH TWICE DAILY Rx Instructions: with meals acetaminophen [Tylenol] 325 mg Capsule 650 mg PO Q8H MDD 3000 PRNQty: 0 0RF rifaximin 550 mg Tablet 550 mg PO BID tamsulosin 0.4 mg Capsule 0.4 mg PO DAILY ferrous sulfate 325 mg (65 mg iron) Tablet 325 mg PO DAILY empagliflozin 25 mg Tablet 25 mg PO DAILY furosemide [Lasix] 20 mg tablet 20 mg PO QAM levothyroxine 200 mcg Tablet 100 mcg PO QAM Qty: 0 0RF Discharge Instructions Instructions: Pancreatitis (ED), Enteritis (ED) Referrals: Maryann Whitt [Primary Care Provider] - 1 day (call for appointment today) Discharge Data Discharge Physician: James Sahu Medical Decision Making MDM: Summary: Patient was here yesterday and returns today complaining of epigastric paramedical pain. Yesterday he was seen and had labs done and was discharged but he reports that he felt like he might have a bowel obstruction. Reported the pain comes and goes but is able to eat and he has stool in the colostomy bag. Yesterday had labs done and a CAT scan and was discharged and today returns for the same reason. Today labs show a mild elevation of the lipase CT scan abdomen pelvis shows some inflammation which could be enteritis but no evidence of a small bowel obstruction. He states he feels better to advise him to try to do some liquid diet for the next 2 days avoid enteric stimulation and if he feels pain again or starts vomiting to return to the emergency department for reevaluation. I will give him some Bentyl. He does not need hospitalization or antibiotics. He does not drink alcohol and has a history of TIPS procedure for nonalcoholic cirrhosis. Data Review Analysis All the data on this patient was reviewed by me including laboratory and imaging studies as well as bedside studies performed by me Independent review of Studies Imaging CT scan report above with enteritis Lab: Labs are unremarkable and the trend is the same as previous ones where he has thrombocytopenia Risk Stratification: Patient who had an episode of pain this morning but today he is pain-free he reports that this pain comes and goes and is not associate with mild pancreatitis or enteritis While there is mild radiation of the lipase. He is able to drink fluids and will be discharged. The liquid diet for the next 3 days and will close follow- up with his primary care physician advised him if he starts having severe pain to return to emergency department for reevaluation. He also has hypertension and he states that he did not take his medicines today but will take when he goes home Differential Diagnosis: 1. Small bowel obstruction 2. incarcerated hernia 3. Acute pancreatitis 4. Enteritis and duodenitis 5. Consultants: Shared disposition: Patient states he would like to go home and he will receive his Bentyl for pain and he will adjust to a liquid diet for the next 3 days nondairy products Impression: Medical Records Medical records reviewed: Yes I reviewed the patient's medical records. Imaging Data Radiologic Study: Imaging: CT Scan Radiologist's impression: Launch?Image Patient Name: Osmar Orellana Unit #: [id number] Loc: ER Ordering Provider: James Sahu M.D. Status: [facility] Primary Care Provider: Maryann Whitt Date of Exam: 09/22/23 Sex: M : 1945 Age: 78 Exam(s) a CT:CT abdomen & pelvis wo Exam(s) CT ABDOMEN PELVIS WO EXAM: CT ABDOMEN PELVIS WO CLINICAL HISTORY: abdominal pain, nausea. TECHNIQUE: Imaging Protocol: Axial computed tomography images with coronal and sagittal reformatted images were created and reviewed. COMPARISON: CT CT CHEST/ABD/PEL W from 06/16/[address] ABDOMEN PELVIS W from 09/21/2023 FINDINGS: ABDOMEN: Lung Bases: Cardiomegaly. Liver: There is a lobulated contour of the liver consistent with hepatic cirrhosis. The patient has a TIPS in place. There is a cyst seen in the left lobe of the liver. No measurable mass. Gallbladder and biliary tract: Cholelithiasis. No biliary ductal dilatation. Pancreas: Normal density, no abnormal calcifications or inflammatory process. Unchanged cystic lesion in the uncinate process of the pancreas. Spleen: Splenomegaly. Kidneys: Normal size, contour and axis.No radiodense stones or obstructive uropathy. No masses seen. Adrenal glands: Stable appearance of the adrenal glands. Lymph nodes: Within normal limits. Abdominal Aorta: Abdominal portion non-dilated. Atherosclerosis. PELVIS: Bladder:There is contrast seen in the ureters in urinary bladder consistent with the patient's recent CT scan with contrast. There is mild inflammation seen around the urinary bladder and cystitis cannot be excluded. Bowel: There is again seen a rectosigmoid resection with a left lower quadrant colostomy. There is a right-sided enterocolic anastomosis. There is a loop of bowel in the anterior abdomen which shows mild wall thickening which may represent enteritis. There is no evidence of bowel obstruction. Peritoneal cavity: No ascites, collection or mesenteric inflammatory response. No free air. Reproductive organs: Unremarkable as visualized. Bones: Within normal limits. Soft Tissues: There are bilateral fat containing inguinal hernias. IMPRESSION: 1. Mild wall thickening in loops of small bowel which may represent enteritis. 2. No evidence of bowel obstruction. 3. Mild inflammation adjacent to the anterior wall of the urinary bladder. Cystitis cannot be excluded. RADIATION DOSE DELIVERED: Total DLP DATA REPOSITORY: All CT scans at this facility are submitted to the National Radiology Data Registry (NRDR) Dose Index Registry (DIR) with the [employer] (ACR). RADIATION OPTIMIZATION: All CT scans at this facility use at least one of these dose optimization techniques: automated exposure control; mA and/or kV adjustment per patient size (includes targeted exams where dose is matched to clinical indication); or iterative reconstruction. [id number]: Total DLP = 0.00 mGy-cm Ordered By: James Sahu M.D. CC: Lab Data Lab results reviewed: Yes I reviewed the patient's lab results. HPI General Date/Time Provider Initiated Documentation: 09/22/23 10:40 . HPI Narrative: Patient presents emergency department stating that he has a colostomy and a history of here in the emergency department as he thought he had a bowel obstruction and he had a full workup today he returns this morning for this morning he woke up stating he has some left common parastomal abdominal pain associate with nausea to the RN obstruction there is subsided but comes here to the emergency department for he has not produced too much stool in the ostomy bag. Denies any fever denies any chills states that he has been eating adequately Related Data Home Medications Medication Instructions Recorded Confirmed apixaban 5 mg tablet (Eliquis) 5 mg PO BID 11/08/22 09/22/23 metformin 1,000 mg tablet 1,000 mg PO BID 11/08/22 09/22/23 pantoprazole 40 mg tablet,delayed 40 mg PO DAILY 11/08/22 09/22/23 release prazosin 5 mg capsule 10 mg PO QHS 11/08/22 09/22/23 pregabalin 50 mg capsule 50 mg PO BID 11/08/22 09/22/23 spironolactone 25 mg tablet 25 mg PO QAM 11/08/22 09/22/23 valsartan 40 mg tablet 40 mg PO BID 11/08/22 09/22/23 venlafaxine 150 mg 150 mg PO DAILY 11/08/22 09/22/23 capsule,extended release 24 hr tamsulosin 0.4 mg capsule 0.4 mg PO DAILY 11/29/22 09/22/23 nitroglycerin 0.4 mg sublingual 0.4 mg sublingual Q5 MIN PRN X3 02/10/23 09/22/23 tablet PRN #30 tabs ferrous sulfate 325 mg (65 mg 325 mg PO DAILY 03/08/23 09/22/23 iron) tablet empagliflozin 25 mg tablet 25 mg PO DAILY 04/09/23 09/22/23 furosemide 20 mg tablet (Lasix) 20 mg PO QAM 04/09/23 09/22/23 levothyroxine 200 mcg tablet 100 mcg (1/2 x 200 mcg) PO QAM #0 04/10/23 09/22/23 tabs ergocalciferol (vitamin D2) 1,250 1,250 mcg PO QWEEK 06/16/23 09/22/23 mcg (50,000 unit) capsule miconazole nitrate 2 % topical 1 applic topical BID PRN 06/16/23 09/22/23 powder acetaminophen 325 mg capsule 650 mg (2 x 325 mg) PO Q8H PRN #0 06/17/23 09/22/23 (Tylenol) caps carvedilol 3.125 mg tablet 3.125 mg PO BID #0 tabs 06/17/23 09/22/23 rifaximin 550 mg tablet 550 mg PO BID 07/07/23 09/22/23 dicyclomine 10 mg capsule 10 mg PO BID #20 caps 09/22/23 Previous Rx's Medication Instructions Recorded nitroglycerin 0.4 mg sublingual 0.4 mg sublingual Q5 MIN PRN X3 02/10/23 tablet PRN #30 tabs levothyroxine 200 mcg tablet 100 mcg (1/2 x 200 mcg) PO QAM #0 04/10/23 tabs acetaminophen 325 mg capsule 650 mg (2 x 325 mg) PO Q8H PRN #0 06/17/23 (Tylenol) caps carvedilol 3.125 mg tablet 3.125 mg PO BID #0 tabs 06/17/23 dicyclomine 10 mg capsule 10 mg PO BID #20 caps 09/22/23 Allergies Allergy/AdvReac Type Severity Reaction Status Date / Time Penicillins Allergy Mild Itching Unverified 09/22/23 10:56 morphine AdvReac Severe vomiting Unverified 09/22/23 10:56 mussels AdvReac Severe vomiting Unverified 09/22/23 10:56 General ANNA: 3 Review of Systems Narrative: Review of Systems: Constitutional: No fevers, chills, sweats Eye: No recent visual problems ENT: No ear pain, nasal congestion, sore throat Respiratory: No shortness of breath, cough Cardiovascular: No Chest pain, palpitations, syncope Gastrointestinal: No nausea, vomiting, diarrhea Genitourinary: No hematuria Grant/Lymph: Negative for bruising tendency, swollen lymph glands Endocrine: Negative for excessive thirst, excessive hunger Musculoskeletal: No back pain, neck pain, joint pain, muscle pain, decreased range of motion Integumentary: No rash, pruritus, abrasions Neurologic: Alert & oriented X 4 Psychiatric: No anxiety, depression PFSH All Active Problems (Updated 09/22/23 @ 12:41 by James Sahu MD) Pancreatitis (Chronic) Enteritis (Acute) Abdominal pain (Acute) Hypokalemia (Acute) Bradycardia (Acute) Multiple falls (Acute) Acute metabolic encephalopathy (Acute) Medication monitoring encounter (Acute) ANETTE (obstructive sleep apnea) (Chronic) Chest pain (Acute) CHF exacerbation (Acute) CHF (congestive heart failure) (Chronic) Medical History Anticoagulated COVID Chronic low back pain Recurrent intestinal obstruction History of colon cancer Palliative care encounter Follow[facility] by [facility] Chronic anticoagulation Portal hypertension Cirrhosis TIPs placed (?when, [facility] [place] 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 [place] . Exam Narrative Exam Narrative: Exam; vitals signs as reported above normal Constitutional; In no acute distress, afebrile General: cooperative, healthy appearing, comfortable and no acute distress HEENT: Head: normal to inspection, no palpable skull fracture and normocephalic atraumatic Eyes: : appearance normal, both eyes and all related structures EOM intact bilaterally Pupils: PERRL : conjunctiva normal Direct ophthalmoscopy: normal light reflex, normal conjunctiva, normal visual acuity Ears: Normal TM, normal external canal Nose: normal no rhinorreha Neck no JVD, supple non tender Neck: normal visual inspection, full ROM and no lymphadenopathy Chest: normal inspection of the chest Respiratory : normal respiratory effort and able to speak in complete sentences no wheezing no rales Cardio Rate: regular rate, rhythm: regular rhythm normal heart sounds S1 and S2 no murmurs, gallops, or rubs GI : normal to inspection, normal bowel sounds, soft, non tender, non distended, no organomegaly Back/Spine/ no CVA tenderness Thoracic/Lumbar Spine: no tenderness or deformities Skin no rashes or lesions Neuro: patient alert oriented x 4 and no meningeal signs, Cranial Nerves: CN's II-XI intact bilaterally, Cognition: normal cognition, Speech: speech normal, Gait: normal gait, Depp tendon reflexes normal 2+ muscle strength 5/5 bilaterally Extremities, no edema, full range of motion, normal strength Vital Signs & Lab Results Vital Signs Most Recent Vital Signs: Most Recent Vital Signs Temp Pulse Resp BP Pulse Ox 37.2 C 56 L 15 191/63 H 95 09/22/23 10:32 09/22/23 12:01 09/22/23 12:10 09/22/23 12:01 09/22/23 12:10 Point of Care Results Nursing Point of Care Results: 2 No Data to Display Lab Results 09/22/23 10:45 09/22/23 10:45 Blood Type / Crossmatch: 2 No Data to Display Complete Blood Count: 2 White Blood Count 4.03 10^3/uL (4.4-10.8) L 09/22/23 10:45 Red Blood Count 4.57 10^6/uL (4.36-5.78) 09/22/23 10:45 Hemoglobin 13.5 g/dL (13.5-17.5) 09/22/23 10:45 Hematocrit 40.8 % (40.0-50.0) 09/22/23 10:45 Platelet Count 63 10^3/uL (130-400) L 09/22/23 10:45 Venous Blood Lactate 4.6 mmol/L (0.6-1.4) H* 09/21/23 17:06 Complete Metabolic Panel: 2 Sodium 143 mmol/L (136-145) 09/22/23 10:45 Potassium 4.0 mmol/L (3.5-5.1) 09/22/23 10:45 Chloride 107 mmol/L (98-107) 09/22/23 10:45 Carbon Dioxide 25.9 mmol/L (21.0-32.0) 09/22/23 10:45 BUN 12 mg/dL (7-18) 09/22/23 10:45 Creatinine 0.9 mg/dL (0.70-1.30) 09/22/23 10:45 Est GFR (CKD-EPI 2020) 88.51 (mL/min/1.73m2) 09/22/23 10:45 Magnesium 1.7 mg/dL (1.8-2.4) L 09/22/23 10:45 Calcium 9.6 mg/dL (8.5-10.1) 09/22/23 10:45 Albumin 2.9 g/dL (3.4-5.0) L 09/22/23 10:45 Glucose 143 mg/dL (74-106) H 09/22/23 10:45 Liver Function Panel: 2 Alanine Aminotransferase (ALT/SGPT) 16 U/L (16-63) 09/22/23 10: 45 Aspartate Amino Transf (AST/SGOT) 34 U/L (15-37) 09/22/23 10:45 Coagulation Panel: 2 No Data to Display Cardiac Panel: 2 No Data to Display Arterial Blood Gas: 2 No Data to Display Venous Blood Gas: 2 No Data to Display Pancreas Panel: 2 Lipase > 375 U/L (16-77) H 09/22/23 10:45 Thyroid Panel: 2 No Data to Display Infectious Disease: 2 No Data to Display Blood Cultures: 2 No Data to Display Toxicology Panel: 2 No Data to Display
--- NOTE | 2023-09-22 11:00 | DI.CT_ITS ---
Exam(s) CT ABDOMEN PELVIS WO EXAM: CT ABDOMEN PELVIS WO CLINICAL HISTORY: abdominal pain, nausea. TECHNIQUE: Imaging Protocol: Axial computed tomography images with coronal and sagittal reformatted images were created and reviewed. COMPARISON: CT CT CHEST/ABD/PEL W from 06/16/[address] ABDOMEN PELVIS W from 09/21/2023 FINDINGS: ABDOMEN: Lung Bases: Cardiomegaly. Liver: There is a lobulated contour of the liver consistent with hepatic cirrhosis. The patient has a TIPS in place. There is a cyst seen in the left lobe of the liver. No measurable mass. Gallbladder and biliary tract: Cholelithiasis. No biliary ductal dilatation. Pancreas: Normal density, no abnormal calcifications or inflammatory process. Unchanged cystic lesion in the uncinate process of the pancreas. Spleen: Splenomegaly. Kidneys: Normal size, contour and axis.No radiodense stones or obstructive uropathy. No masses seen. Adrenal glands: Stable appearance of the adrenal glands. Lymph nodes: Within normal limits. Abdominal Aorta: Abdominal portion non-dilated. Atherosclerosis. PELVIS: Bladder:There is contrast seen in the ureters in urinary bladder consistent with the patient's recent CT scan with contrast. There is mild inflammation seen around the urinary bladder and cystitis ramon ot be excluded. Bowel: There is again seen a rectosigmoid resection with a left lower quadrant colostomy. There is a right-sided enterocolic anastomosis. There is a loop of bowel in the anterior abdomen which shows m ild wall thickening which may represent enteritis. There is no evidence of bowel obstruction. Peritoneal cavity: No ascites, collection or mesenteric inflammatory response. No free air. Reproductive organs: Unremarkable as visualized. Bones: Within normal limits. Soft Tissues: There are bilateral fat containing inguinal hernias. IMPRESSION: 1. Mild wall thickening in loops of small bowel which may represent enteritis. 2. No evidence of bowel obstruction. 3. Mild inflammation adjacent to the anterior wall of the urinary bladder. Cystitis cannot be exclud ed. RADIATION DOSE DELIVERED: Total DLP DATA REPOSITORY: All CT scans at this facility are submitted to the National Radiology Data Registry (NRDR) Dose Index Registry (DIR) with the [employer] (ACR). RADIATION OPTIMIZATION: All CT scans at this facility use at least one of these dose optimization te chniques: automated exposure control; mA and/or kV adjustment per patient size (includes targeted exa ms where dose is matched to clinical indication); or iterative reconstruction.
--- OUTSIDE RECORDS SUMMARY | 2023-09-22 11:01 | XMS_ITS | Continuity of Care Document ---
Author Name Unknown Organization [facility] Address [address] [place] [address] Encounter LTTL_AL FIN NBR [id number] Date(s): 05/23/23 - 05/24/23 [facility] [address], [place] [address] Encounter Diagnosis Hepatic encephalopathy(Discharge Diagnosis) - 05/23/23 Liver cirrhosis(Discharge Diagnosis) - 05/23/23 Urinary tract infection(Discharge Diagnosis) - 05/24/23 Discharge Disposition: Home f/u External Provider Attending Physician: Hero Felix APRN Admitting Physician: Hero Felix APRN Allergies, Adverse Reactions, Alerts Substance Reaction Severity Status penicillin Severe Active morphine Moderate Active Functional Status 05/24/23 Activity Status ADL Other: in bed restin g 05/24/23 ADLs Minimal assistance Personal Care Provided Gown change, Hair care, Linen change, Jami care, Shower, Underpad change 05/24/23 Living Environment No Living Environmen t Information Available 05/24/23 Other exposure to Infectious Disease Non e Medications apixaban 5 mg oral tablet 5 mg = 1 tab, Oral, BID, # 60 tab, 0 Refill(s) Start Date: 05/23/23 Status: Ordered Bactrim DS 800 mg-160 mg oral tablet 1 tab, Oral, every 12 hr, # 10 tab, 0 Refill(s), Pharmacy: [id number], 175.2, cm, 05/24/23 2:35:00 EDT, Height/Length Dosing, 125.1, kg, 05/24/23 2:35:00 EDT, Weight Dosing Start Date: 05/24/23 Stop Date: 05/29/23 Status: Ordered carvedilol 6.25 mg oral tablet 6.25 mg = 1 tab, Oral, BID, 0 Refill(s) Start Date: 05/23/23 Status: Ordered clobetasol 0.05% topical cream 1 deonna, Topical, Daily, apply a small amount, 0 Refill(s) Start Date: 05/24/23 Status: Ordered empagliflozin 25 mg oral tablet 25 mg = 1 tab, Oral, every morning, # 30 tab, 0 Refill(s) Start Date: 05/23/23 Status: Ordered ferrous sulfate 325 mg (65 mg elemental iron) oral delayed release tablet 325 mg = 1 tab, Oral, every evening, 0 Refill(s) Start Date: 05/24/23 Status: Ordered furosemide 20 mg oral tablet 20 mg = 1 tab, Oral, Daily, and one tablet daily as needed to remove fluid, 0 Refill(s) Start Date: 05/24/23 Status: Ordered lactulose 10 g/15 mL oral syrup 10 g = 15 mL, Oral, BID, 0 Refill(s) Start Date: 05/23/23 Status: Ordered levothyroxine 100 mcg =, Oral, Daily, 0 Refill(s) Start Date: 05/23/23 Status: Ordered metFORMIN 1,000 mg =, Oral, BID, 0 Refill(s) Start Date: 05/23/23 Status: Ordered miconazole 2% topical powder 1 deonna, Topical, BID, 0 Refill(s) Start Date: 05/24/23 Status: Ordered nitroglycerin 0.4 mg sublingual tablet 0.4 mg = 1 tab, SL, every 5 min, PRN as needed for chest pain, # 100 tab, 0 Refill(s) Start Date: 05/24/23 Status: Ordered pantoprazole 40 mg oral delayed release tablet 40 mg = 1 tab, Oral, Daily, PRN other (see comment), for stomach acid, 0 Refill(s) Start Date: 05/24/23 Status: Ordered prazosin 5 mg oral capsule 10 mg = 2 cap, Oral, every evening, 0 Refill(s) Start Date: 05/23/23 Status: Ordered pregabalin 50 mg oral capsule 50 mg = 1 cap, Oral, BID, 0 Refill(s) Start Date: 05/23/23 Status: Ordered spironolactone 25 mg oral tablet 25 mg = 1 tab, Daily, 0 Refill(s) Start Date: 05/23/23 Status: Ordered tamsulosin 0.4 mg oral capsule 0.4 mg = 1 cap, Oral, Daily, 0 Refill(s) Start Date: 05/23/23 Status: Ordered valsartan 40 mg oral tablet 40 mg = 1 tab, Oral, BID, 0 Refill(s) Start Date: 05/23/23 Status: Ordered venlafaxine 150 mg oral capsule, extended release 150 mg = 1 cap, Oral, Daily, # 30 cap, 0 Refill(s) Start Date: 05/24/23 Status: Ordered Vitamin D3 50,000 intl units oral capsule 1,250 mcg = 1 cap, Oral, every week, saturdays, 0 Refill(s) Start Date: 05/24/23 Status: Ordered Mental Status 05/23/23 Eye Opening Response [place] Spontaneous ly Best Verbal Response [place] Oriented Best Motor Response [place] Obeys comman ds Noemi Coma Score 15 Problem List Condition Confirmation Course Effective Dates Status Health [facility] atus Informant Liver cirrhosis Confirmed Active Results Laboratory List Name Date Glucose POCT 05/24/23 Automated Diff 05/24/23 Glucose POCT 05/24/23 Basic Metabolic Panel (BMP) 05/24/23 CBC w/ Diff 05/24/23 Fecal Occult Blood (iFOB) (Occult Blood, Fecal) 05/24/23 Glucose POCT 05/23/23 Ammonia Level 05/23/23 SARS-CoV-2 (Covid-19) AG (Tomasa) POCT Urinalysis Microscopic 05/23/23 Urinalysis with Micro if Indicated and C ulture if Indicated 05/23/23 Automated Diff 05/23/23 .Morphology (LTTL) 05/23/23 ABO/Rh Echo 05/23/23 ABSC Echo (Antibody Screen Echo) 05/23/23 CBC w/ Diff 05/23/23 Comprehensive Metabolic Panel (CMP) 05/23 Magnesium Level 05/23/23 PT/ INR 05/23/23 Most recent to oldest [Reference Range]: 1 2 3 WBC [4.8-10.8 K/mcL] 6.1 K/mcL (05/24/23 4:57 AM) 5.0 K/mcL (05/23/23 4:00 PM) RBC [4.20-6.10 Million/mcL] 4.74 Million /mcL (05/24/23 4:57 AM) 4.65 Million/mcL (05/23/23 4:00 PM) Neutro Auto [42.2-75.2 %] 63.8 % (05/24/23 4:57 AM) 68.1 % (05/23/23 4:00 PM) Lymph Auto [20.5-51.1 %] 18.6 % *LOW* (05/24/23 4:57 AM) 16.1 % *LOW* (05/23/23 4:00 PM) [place] Auto [1.7-9.3 %] 9.9 % *HI* (05/24/23 4:57 AM) 8.8 % (05/23/23 4:00 PM) Basophil Auto [0.0-0.8 %] 0.7 % (05/24/23 4:57 AM) 0.6 % (05/23/23 4:00 PM) Prothrombin Time [9.1-10.6 seconds] 11.0 seconds *HI* (05/23/23 4:00 PM) INR [0.9-1.1] 1.1 1 (05/23/23 4:00 PM) BUN [8-26 mg/dL] 13 mg/dL (05/24/23 4:57 AM) 17 mg/dL (05/23/23 4:00 PM) Glucose POC 260 *NA* (05/24/23 1:07 PM) 177 *NA* (05/24/23 7:32 AM) 176 *NA* (05/23/23 9:41 PM) UA Color [Yellow] Yellow (05/23/23 4:50 PM) UA WBC [0-3] 4-6 *ABN* (05/23/23 4:50 PM) Glucose Level [74-106 mg/dL] 195 mg/dL *HI* (05/24/23 4:57 AM) 252 mg/dL *HI* (05/23/23 4:00 PM) Potassium Level [3.5-5.1 mmol/L] 3.5 mmol/L (05/24/23 4:57 AM) 3.9 mmol/L (05/23/23 4:00 PM) Baso Absolute [0.0-0.2 K/mcL] 0.0 K/mcL (05/24/23 4:57 AM) 0.0 K/mcL (05/23/23 4:00 PM) MCV [80.0-94.0 fL] 87.3 fL (05/24/23 4:57 AM) 86.5 fL (05/23/23 4:00 PM) UA Urobilinogen [0.2] 2.0 *ABN* (05/23/23 4:50 PM) RBC Morph [Normal] Abnormal *ABN* (05/23/23 4:00 PM) UA Bili [Negative] Negative (05/23/23 4:50 PM) UA Ketones [Negative] Negative (05/23/23 4:50 PM) AST [15-41 IntlUnit/L] 41 IntlUnit/L (05/23/23 4:00 PM) ALT [17-63 IntlUnit/L] 19 IntlUnit/L (05/23/23 4:00 PM) MCHC [32.0-36.0 g/dL] 32.1 g/dL (05/24/23 4:57 AM) 31.8 g/dL *LOW* (05/23/23 4:00 PM) Osmolality [275-295 mOsm/kg] 283 mOsm/kg (05/24/23 4:57 AM) 284 mOsm/kg (05/23/23 4:00 PM) Sodium Level [134-143 mmol/L] 139 mmol/L (05/24/23 4:57 AM) 137 mmol/L (05/23/23 4:00 PM) UA RBC [0-3] 50-99 *ABN* (05/23/23 4:50 PM) UA Leuk Est [Negative] Small *ABN* (05/23/23 4:50 PM) Lymph Absolute [1.2-3.4 K/mcL] 1.1 K/mcL *LOW* (05/24/23 4:57 AM) 0.8 K/mcL *LOW* (05/23/23 4:00 PM) UA Nitrite [Negative] Negative (05/23/23 4:50 PM) UA Glucose [Negative] >=1000 *ABN* (05/23/23 4:50 PM) Hct [42.0-52.0 %] 41.4 % *LOW* (05/24/23 4:57 AM) 40.2 % *LOW* (05/23/23 4:00 PM) UA Bacteria [None Seen] 1+ *ABN* (05/23/23 4:50 PM) Calcium Level [8.9-10.3 mg/dL] 8.8 mg/dL *LOW* (05/24/23 4:57 AM) 9.1 mg/dL (05/23/23 4:00 PM) [place] Absolute [0.1-0.6 K/mcL] 0.6 K/mcL (05/24/23 4:57 AM) 0.4 K/mcL (05/23/23 4:00 PM) Albumin Level [3.5-5.0 g/dL] 3.1 g/dL *LOW* (05/23/23 4:00 PM) Protein Total [6.5-8.1 g/dL] 6.5 g/dL (05/23/23 4:00 PM) UA Protein [Negative] 100 *ABN* (05/23/23 4:50 PM) MCH [27.0-31.0 pg] 28.1 pg (05/24/23 4:57 AM) 27.5 pg (05/23/23 4:00 PM) Magnesium Level [1.8-2.5 mg/dL] 1.8 mg/dL (05/23/23 4:00 PM) Neutro Absolute [1.4-6.5 K/mcL] 3.9 K/mcL (05/24/23 4:57 AM) 3.4 K/mcL (05/23/23 4:00 PM) Bilirubin Total [0.2-1.2 mg/dL] 2.2 mg/dL *HI* (05/23/23 4:00 PM) Hgb [14.0-18.0 g/dL] 13.3 g/dL *LOW* (05/24/23 4:57 AM) 12.8 g/dL *LOW* (05/23/23 4:00 PM) Alk Phos [38-130 IntlUnit/L] 133 IntlUnit/L *HI* (05/23/23 4:00 PM) UA Blood [Negative] Large *ABN* (05/23/23 4:50 PM) MPV [7.4-10.4 fL] 10.8 fL *HI* (05/24/23 4:57 AM) 11.5 fL *HI* (05/23/23 4:00 PM) UA Spec Grav [1.001-1.030] 1.020 (05/23/23 4:50 PM) Platelets [130-400 K/mcL] 112 K/mcL 2 *LOW* (05/24/23 4:57 AM) 86 K/mcL *LOW* (05/23/23 4:00 PM) CO2 [22-32 mmol/L] 23 mmol/L (05/24/23 4:57 AM) 22 mmol/L (05/23/23 4:00 PM) Eos Absolute [0.0-0.2 K/mcL] 0.4 K/mcL *HI* (05/24/23 4:57 AM) 0.3 K/mcL *HI* (05/23/23 4:00 PM) UA Squam Epithelial [0-3] 0-3 (05/23/23 4:50 PM) Ammonia Level [9-35 mcmol/L] 94 mcmol/L *HI* (05/23/23 7:49 PM) UA pH [5.00-9.00] 7.50 (05/23/23 4:50 PM) UA Appear [Clear] Turbid *ABN* (05/23/23 4:50 PM) Chloride Level [98-111 mmol/L] 109 mmol/L (05/24/23 4:57 AM) 106 mmol/L (05/23/23 4:00 PM) RDW-CV [11.5-14.5 %] 18.5 % *HI* (05/24/23 4:57 AM) 18.6 % *HI* (05/23/23 4:00 PM) A/G Ratio 0.9 *NA* (05/23/23 4:00 PM) BUN/Creat Ratio [8.0-20.0] 19.7 (05/24/23 4:57 AM) 23.0 *HI* (05/23/23 4:00 PM) Globulin 3.4 *NA* (05/23/23 4:00 PM) Imm Gran Absolute 0.01 *NA* (05/24/23 4:57 AM) 0.02 *NA* (05/23/23 4:00 PM) Imm Gran Auto [0.0-0.5 %] 0.2 % (05/24/23 4:57 AM) 0.4 % (05/23/23 4:00 PM) NRBC Auto 0 *NA* (05/23/23 4:00 PM) NRBC Absolute 0 *NA* (05/23/23 4:00 PM) Slide Review Not Indicated (05/24/23 4:57 AM) Morph Only (05/23/23 4:00 PM) UA Culture Ind?. [No] Yes (05/23/23 4:50 PM) Urine Srce Clean Catch (05/23/23 4:50 PM) Anisocyte 1+ (05/23/23 4:00 PM) Creatinine Level [0.61-1.24 mg/dL] 0.66 mg/dL (05/24/23 4:57 AM) 0.74 mg/dL (05/23/23 4:00 PM) Plt Estimation Decreased *ABN* (05/23/23 4:00 PM) SARS-CoV or CoV-2 (COVID-19) Ag (Tomasa) [Negative] Negative (05/23/23 5:23 PM) Employed in healthcare? Unknown *NA* (05/23/23 5:23 PM) Symptomatic as defined by CDC? Unknown *NA* (05/23/23 5:23 PM) Date of onset (Lab) Unknown *NA* (05/23/23 5:23 PM) Hospitalized due to COVID-19? Unknown *NA* (05/23/23 5:23 PM) In ICU? Unknown *NA* (05/23/23 5:23 PM) Group care resident? Unknown *NA* (05/23/23 5:23 PM) status? Unknown *NA* (05/23/23 5:23 PM) ABO/Rh Echo O POS *Unknown* (05/23/23 4:00 PM) Anion Gap [3.0-12.0] 7.0 (05/24/23 4:57 AM) 9.0 (05/23/23 4:00 PM) Eos, Auto [0.00-3.00 %] 6.80 % *HI* (05/24/23 4:57 AM) 6.00 % *HI* (05/23/23 4:00 PM) eGFR CKD-EPI [>=60 mL/min/1.73 m2] 97 mL/min/1.73 m2 (05/24/23 4:57 AM) 94 mL/min/1.73 m2 (05/23/23 4:00 PM) ABSC Echo Negative ABSC (05/23/23 4:00 PM) Fecal Occult Blood [Negative] Positive *ABN* (05/24/23 1:09 AM) 1Interpretive Data: THERAPEUTIC INR RANGES FOR WARFARIN Uncomplicated venous thromboembolic disease 2-3 Lupus Anticoagulant and recurrent thrombosis 3-3.5 Mechanical prosthetic valve or recurrent thrombosis 2.5-3.5 2Result Comment: Consistent with previous results Orders for Microbiology Reports Name Date Urine Culture 05/23/23 Microbiology Reports TEST:Urine Culture STATUS:Order in Progress BODY SITE: SOURCE:Urine, Clean Catch COLLECTED DATE/TIME:05/23/23 4:50 PM PRELIMINARY REPORT >100,000 cfu/ml Gram Negative Bacilli Identification and susceptibility to follow. Radiology Reports * Exam Date Time Procedure Performing Provider Status 05/23/23 5:[address] Abdomen and Pelvi s w/o Contrast Viky Johnson; Auth (Verified) Notes: (CT Abdomen and Pelvis w/o Contrast) Reason For Exam: hematuria, pain at ostomy site CT Abdomen and Pelvis w/o Contrast PROCEDURE INFORMATION: Exam: CT Abdomen And Pelvis Without Contrast Exam date and time: 05/23/2023 4:59 PM Age: 78 years old Clinical indication: Abdominal pain; Other: Ostomy site pain; Additional info: Hematuria, pain at ostomy site TECHNIQUE: Imaging protocol: Computed tomography of the abdomen and pelvis without contrast. Radiation optimization: All CT scans at this facility use at least one of these dose optimization techniques: automated exposure control; mA and/or kV adjustment per patient size (includes targeted exams where dose is matched to clinical indication); or iterative reconstruction. REPORTING DATA: Count of CT and Cardiac NM exams in prior 12 months: This patient has received 0 known CTs and 0 known cardiac nuclear medicine studies in the 12 months prior to the current study. COMPARISON: No relevant prior studies available. FINDINGS: Liver: Nodular contour to liver. Tips catheter noted . trace perihepatic fluid Gallbladder and bile ducts: Normal. No calcified stones. No ductal dilation. Pancreas: Normal. No ductal dilation. Spleen: There is splenomegaly Adrenal glands: Normal. No mass. Kidneys and ureters: Normal. No hydronephrosis. Stomach and bowel: Diverting ostomy left mid abdomen . The bowel gas pattern is nonobstructive. Multiple bowel anastomoses noted. Appendix: No evidence of appendicitis. Intraperitoneal space: Unremarkable. No free air. No significant fluid collection. Vasculature: Unremarkable. No abdominal aortic aneurysm. Lymph nodes: Unremarkable. No enlarged lymph nodes. Urinary bladder: Unremarkable as visualized. Reproductive: Unremarkable as visualized. Bones/joints: Unremarkable. No acute fracture. Soft tissues: Unremarkable. IMPRESSION: Cirrhosis with splenomegaly THIS DOCUMENT HAS BEEN ELECTRONICALLY SIGNED BY THOMAS BYRNE MD on 05/23/2023 05:18 PM Final Signed by: Thomas Byrne MD Signed (Electronic Signature): 05/23/2023 5:18 pm Vital Signs Most recent to oldest [Reference Range]: 1 2 3 Temperature Temporal Artery [36-38 Deg C] 36.5 Deg C (05/24/23 7:29 AM) 36.2 Deg C (05/24/23 4:00 AM) 36.8 Deg C (05/24/23 1:24 AM) Temperature Temporal Artery (DegF) [97.3-100 Deg F] 97.7 Deg F (05/24/23 7:29 AM) Peripheral Pulse Rate [60-100 bpm] 58 bpm *LOW* (05/24/23 7:29 AM) 63 bpm (05/24/23 4:00 AM) 58 bpm *LOW* (05/23/23 10:00 PM) Heart Rate Monitored [60-100 bpm] 58 bpm *LOW* (05/23/23 10:00 PM) 59 bpm *LOW* (05/23/23 6:30 PM) 60 bpm (05/23/23 6:00 PM) Respiratory Rate [12-24 br/min] 18 br/min (05/24/23 7:29 AM) 18 br/min (05/24/23 4:00 AM) 18 br/min (05/23/23 10:00 PM) Blood Pressure [90-140/60-90 mmHg] 175/64mmHg *HI* (05/24/23 7:29 AM) 157/69mmHg *HI* (05/24/23 4:00 AM) 178/76mmHg *HI* (05/23/23 10:00 PM) Mean Arterial Pressure, Cuff [65-140 mmHg] 101 mmHg (05/24/23 7:29 AM) Mean Arterial Pressure Cuff 99 mmHg (05/23/23 6:30 PM) 114 mmHg (05/23/23 6:00 PM) 100 mmHg (05/23/23 5:30 PM) Weight 125.100 kg (05/24/23 2:34 AM) 125.10 kg (05/23/23 4:27 PM) Weight Dosing 125.100 kg (05/24/23 2:34 AM) 125.10 kg (05/23/23 5:18 PM) Height 175.200 cm (05/24/23 2:34 AM) 175.200 cm (05/23/23 4:27 PM) Height/Length Dosing 175.200 cm (05/24/23 2:34 AM) 175.200 cm (05/23/23 5:18 PM) Body Mass Index 40.760 kg/m2 (05/24/23 2:34 AM) 41.000 kg/m2 (05/23/23 4:27 PM) Social History Social History Type Response Tobacco Never tobacco user T obacco Use:. Sex Hospital Discharge Instructions Patient Education 05/24/2023 10:53:50 Urinary Tract Infection, Adult Urinary Tract Infection, Adult A urinary tract infection (UTI) is an infection of any part of the urinary tract. The urinary tractincludes the kidneys, ureters, bladder, and urethra. These organs make, store, and get rid of urinein the body. An upper UTI affects the ureters and kidneys. A lower UTI affects the bladder and urethra. What are the causes? Most urinary tract infections are caused by bacteria in your genital area around your urethra, where urine leaves your body. These bacteria grow and cause inflammation of your urinary tract. What increases the risk? You are more likely to develop this condition if: ??? You have a urinary catheter that stays in place. ??? You are not able to control when you urinate or have a bowel movement (incontinence). ??? You are female and you: ??? Use a spermicide or diaphragm for control. ??? Have low estrogen levels. ??? Are . ??? You have certain genes that increase your risk. ??? You are sexually active. ??? You take antibiotic medicines. ??? You have a condition that causes your flow of urine to slow down, such as: ??? An enlarged prostate, if you are male. ??? Blockage in your urethra. ??? A kidney stone. ??? A nerve condition that affects your bladder control (neurogenic bladder). ??? Not getting enough to drink, or not urinating often. ??? You have certain medical conditions, such as: ??? Diabetes. ??? A weak disease-fighting system (immunesystem). ??? Sickle cell disease. ??? Gout. ??? Spinal cord injury. What are the signs or symptoms? Symptoms of this condition include: ??? Needing to urinate right away (urgency). ??? Frequent urination. This may include small amounts of urine each time you urinate. ??? Pain or burning with urination. ??? Blood in the urine. ??? Urine that smells bad or unusual. ??? Trouble urinating. ??? Cloudy urine. ??? Vaginal discharge, if you are female. ??? Pain in the abdomen or the lower back. You may also have: ??? Vomiting or a decreased appetite. ??? Confusion. ??? Irritability or tiredness. ??? A fever or chills. ??? Diarrhea. The first symptom in older adults may be confusion. In some cases, they may not have any symptoms until the infection has worsened. How is this diagnosed? This condition is diagnosed based on your medical history and a physical exam. You may also have other tests, including: ??? Urine tests. ??? Blood tests. ??? Tests for STIs (sexually transmitted infections). If you have had more than one UTI, a cystoscopy or imaging studies may be done to determine the cause of the infections. How is this treated? Treatment for this condition includes: ??? Antibiotic medicine. ??? [id number] medicines to treat discomfort. ??? Drinking enough water to stay hydrated. If you have frequent infections or have other conditions such as a kidney stone, you may need to see a health care provider who specializes in the urinary tract (urologist). In rare cases, urinary tract infections can cause sepsis. Sepsis is a life- threatening condition that occurs when the body responds to an infection. Sepsis is treated in the hospital with IV antibiotics, fluids, and other medicines. Follow these instructions at home: Medicines ??? Take [id number] and prescription medicines only as told by your health care provider. ??? If you were prescribed an antibiotic medicine, take it as told by your health care provider. Donot stop using the antibiotic even if you start to feel better. General instructions ??? Make sure you: ??? Empty your bladder often and completely. Do not hold urine for long periods of time. ??? Empty your bladder after sex. ??? Wipe from front to back after urinating or having a bowel movement if you are female. Use each tissue only one time when you wipe. ??? Drink enough fluid to keep your urine pale yellow. ??? Keep all follow-up visits. This is important. Contact a health care provider if: ??? Your symptoms do not get better after 1???2 days. ??? Your symptoms go away and then return. Get help right away if: ??? You have severe pain in your back or your lower abdomen. ??? You have a fever or chills. ??? You have nausea or vomiting. Summary ??? A urinary tract infection (UTI) is an infection of any part of the urinary tract, which includes the kidneys, ureters, bladder, and urethra. ??? Most urinary tract infections are caused by bacteria in your genital area. ??? Treatment for this condition often includes antibiotic medicines. ??? If you were prescribed an antibiotic medicine, take it as told by your health care provider. Donot stop using the antibiotic even if you start to feel better. ??? Keep all follow-up visits. This is important. This information is not intended to replace advice given to you by your health care provider. Make sure you discuss any questions you have with your health care provider. Document Revised: 05/25/2021 Document Reviewed: 05/25/2021 [employer] Patient Education ?? 2022 [employer]. Follow Up Care 05/23/2023 16:27:44 With:Follow up with primary care provider Address:Unknown When:1 month Discharge instructions * Susanna Haynes: PERFORM Event Display: Discharge Instructions Authored Date: [id number] CELINA KING :1945 Age:78 years Sex:Male Visit Date:05/23/2023 Hospital Discharge Instructions We would like to thank you for allowing us to assist you with your healthcare needs. The following includes patient education materials and information regarding your injury/illness. Your Next Steps Instructions From Your Care Team Please make sure you take??your lactulose at least once a day if not more??this med is the only wayto prevent??a toxic buildup of ammonia??in your bloodstream.?? Lactulose??only is working effectively if you are having??more loose stools than normal Follow Up Appointments Follow Up with??Follow up with primary care provider When:??Within 1 month Medications What How Much When Instructions Next Dose New sulfamethoxazole-trimethoprim (Bactrim DS 800 mg-160 mg oral tablet) 1 tab Oral (given by mouth) Every 12 hours Duration: 5 Days Pickup at [id number] Changed carvedilol (carvedilol 6.25 mg oral tablet) 1 tab Oral (given by mouth) 2 times a day Changed ferrous sulfate (ferrous sulfate 325 mg (65 mg elemental iron) oral delayed release tablet) 1 tab Oral (given by mouth) Every evening Changed furosemide (furosemide 20 mg oral tablet) 1 tab Oral (given by mouth) Every day and one tablet daily as needed to remove fluid ?? Changed lactulose (lactulose 10 g/ 15 mL oral syrup) 15 Milliliters Oral (given by mouth) 2 times a day Changed levothyroxine 100 Micrograms Oral (given by mouth) Every day Changed metFORMIN 1,000 Milligrams Oral (given by mouth) 2 times a day Changed pantoprazole (pantoprazole 40 mg oral delayed release tablet) 1 tab Oral (given by mouth) Every day as needed for other (see comment) for stomach acid ?? Changed prazosin (prazosin 5 mg oral capsule) 2 Capsules Oral (given by mouth) Every evening Changed tamsulosin (tamsulosin 0.4 mg oral capsule) 1 Capsules Oral (given by mouth) Every day Changed valsartan (valsartan 40 mg oral tablet) 1 tab Oral (given by mouth) 2 times a day Changed venlafaxine (venlafaxine 150 mg oral capsule, extended release) 1 Capsules Oral (given by mouth) Every day Unchanged apixaban (apixaban 5 mg oral tablet) 1 tab Oral (given by mouth) 2 times a day Unchanged cholecalciferol (Vitamin D3 50,000 intl units oral capsule) 1 Capsules Oral (given by mouth) Every week saturdays ?? Unchanged clobetasol topical (clobetasol 0.05% topical cream) 1 Application Topical (on the skin) Every day apply a small amount ?? Unchanged empagliflozin (empagliflozin 25 mg oral tablet) 1 tab Oral (given by mouth) Every morning Unchanged miconazole topical (miconazole 2% topical powder) 1 Application Topical (on the skin) 2 times a day Unchanged nitroglycerin (nitroglycerin 0.4 mg sublingual tablet) 1 tab Sublingual (dissolve under the tongue) Every 5 minutes as needed for as needed for chest pain Unchanged pregabalin (pregabalin 50 mg oral capsule) 1 Capsules Oral (given by mouth) 2 times a day Unchanged spironolactone (spironolactone 25 mg oral tablet) 1 tab Every day Pharmacy Information [id number]: [address] [place], [place] [id number] [phone] ?? What When Comments Stop Taking miconazole Your Summary Your Care Team Admitting Physician - Hero Felix APRN Attending Physician - Hero Felix APRN Your Diagnosis Hepatic encephalopathy Urinary tract infection Liver cirrhosis Problems Ongoing - Any problem that you are currently receiving treatment for. Liver cirrhosis Morbid obesity Tests Performed/Pending .Morphology (LTTL) ABO/Rh Echo Ammonia Level Antibody Screen Echo Automated Diff BMP CMP Glucose POCT Magnesium Level Occult Blood, Fecal PT/ INR SARS-CoV-2 (Covid-19) AG (Tomasa) POCT Urinalysis Microscopic Urinalysis with Micro if Indicated and Culture if Indicated CT Abdomen and Pelvis w/o Contrast Discharge Vitals Temperature??(Temporal Artery) 97.7 ??F (36.5 ??C) Heart Rate??(Peripheral) 58 Respiratory Rate?? 18 Blood Pressure?? 175/64?? Height?? 68.98 in (175.200 cm) Weight?? 275.85 lb (125.100 kg) BMI?? 40.760 Allergies penicillin morphine Education Materials Urinary Tract Infection, Adult A urinary tract infection (UTI) is an infection of any part of the urinary tract. The urinary tractincludes the kidneys, ureters, bladder, and urethra. These organs make, store, and get rid of urinein the body. An upper UTI affects the ureters and kidneys. A lower UTI affects the bladder and urethra. What are the causes? Most urinary tract infections are caused by bacteria in your genital area around your urethra, where urine leaves your body. These bacteria grow and cause inflammation of your urinary tract. What increases the risk? You are more likely to develop this condition if: ? You have a urinary catheter that stays in place. ? You are not able to control when you urinate or have a bowel movement (incontinence). ? You are female and you: ? Use a spermicide or diaphragm for control. ? Have low estrogen levels. ? Are . ? You have certain genes that increase your risk. ? You are sexually active. ? You take antibiotic medicines. ? You have a condition that causes your flow of urine to slow down, such as: ? An enlarged prostate, if you are male. ? Blockage in your urethra. ? A kidney stone. ? A nerve condition that affects your bladder control (neurogenic bladder). ? Not getting enough to drink, or not urinating often. ? You have certain medical conditions, such as: ? Diabetes. ? A weak disease-fighting system (immunesystem). ? Sickle cell disease. ? Gout. ? Spinal cord injury. What are the signs or symptoms? Symptoms of this condition include: ? Needing to urinate right away (urgency). ? Frequent urination. This may include small amounts of urine each time you urinate. ? Pain or burning with urination. ? Blood in the urine. ? Urine that smells bad or unusual. ? Trouble urinating. ? Cloudy urine. ? Vaginal discharge, if you are female. ? Pain in the abdomen or the lower back. You may also have: ? Vomiting or a decreased appetite. ? Confusion. ? Irritability or tiredness. ? A fever or chills. ? Diarrhea. The first symptom in older adults may be confusion. In some cases, they may not have any symptoms until the infection has worsened. How is this diagnosed? This condition is diagnosed based on your medical history and a physical exam. You may also have other tests, including: ? Urine tests. ? Blood tests. ? Tests for STIs (sexually transmitted infections). If you have had more than one UTI, a cystoscopy or imaging studies may be done to determine the cause of the infections. How is this treated? Treatment for this condition includes: ? Antibiotic medicine. ? Xzcy-jrg-zbypium medicines to treat discomfort. ? Drinking enough water to stay hydrated. If you have frequent infections or have other conditions such as a kidney stone, you may need to see a health care provider who specializes in the urinary tract (urologist). In rare cases, urinary tract infections can cause sepsis. Sepsis is a life- threatening condition that occurs when the body responds to an infection. Sepsis is treated in the hospital with IV antibiotics, fluids, and other medicines. Follow these instructions at home: Medicines ? Take gksv-epb-lwzcxeg and prescription medicines only as told by your health care provider. ? If you were prescribed an antibiotic medicine, take it as told by your health care provider. Do notstop using the antibiotic even if you start to feel better. General instructions ? Make sure you: ? Empty your bladder often and completely. Do not hold urine for long periods of time. ? Empty your bladder after sex. ? Wipe from front to back after urinating or having a bowel movement if you are female. Use each tissue only one time when you wipe. ? Drink enough fluid to keep your urine pale yellow. ? Keep all follow-up visits. This is important. Contact a health care provider if: ? Your symptoms do not get better after 1???2 days. ? Your symptoms go away and then return. Get help right away if: ? You have severe pain in your back or your lower abdomen. ? You have a fever or chills. ? You have nausea or vomiting. Summary ? A urinary tract infection (UTI) is an infection of any part of the urinary tract, which includes the kidneys, ureters, bladder, and urethra. ? Most urinary tract infections are caused by bacteria in your genital area. ? Treatment for this condition often includes antibiotic medicines. ? If you were prescribed an antibiotic medicine, take it as told by your health care provider. Do notstop using the antibiotic even if you start to feel better. ? Keep all follow-up visits. This is important. This information is not intended to replace advice given to you by your health care provider. Make sure you discuss any questions you have with your health care provider. Document Revised: 05/25/2021 Document Reviewed: 05/25/2021 [employer] Patient Education ?? 2022 [employer]. Medication Information sulfamethoxazole and trimethoprim (oral/injection)?? (SUL fa meth OX a zole and trye METH oh prim) ?? Bactrim, Bactrim DS, SMZ-TMP DS, Sulfatrim Pediatric?What is the most important information I should know about sulfamethoxazole and trimethoprim?Use only as directed. Tell your doctor if you use other medicines or have other medical conditions or allergies. ?What is sulfamethoxazole and trimethoprim?Sulfamethoxazole and trimethoprim is a combination antibiotic used to treat ear infections, urinary tract infections, bronchitis, traveler's diarrhea, shigellosis, and Pneumocystis jiroveci pneumonia. ?Sulfamethoxazole and trimethoprim may also be used for purposes not listed in this medication guide. ?What should I discuss with my healthcare provider before using sulfamethoxazole and trimethoprim?You should not use this medicine if you are allergic to sulfamethoxazole or trimethoprim, or ifyou have: ?severe liver disease; ?kidney disease that is not being treated or monitored; ?anemia (low red blood cells) caused by folic acid deficiency;?a history of low blood platelets after taking trimethoprim or any sulfa drug; or ?if you take dofetilide. ?May cause defects. Do not use if you are .??Tell your doctor if you become . ?Do not breastfeed.?This medicine should not be given to a child younger than 2 months old. ?Tell your doctor if you have ever had: ?kidney or liver disease; ?a folate (folic acid) deficiency; ?asthma or severe allergies; ?HIV or AIDS; ?a thyroid disorder; ?malnourishment; ?alcoholism; ?an electrolyte imbalance (such as low blood sodium or high potassium);?porphyria, or eeflshf-5-acrbehihe dehydrogenase (G6PD) deficiency; or ?if you use a blood thinner (such as warfarin) and you have routine 'INR' or prothrombin time tests. ?How should I use sulfamethoxazole and trimethoprim?Follow all directions on your prescription label and read all medication guides or instruction sheets. ??Use the medicine exactly as directed. ?Sulfamethoxazole and trimethoprim??oral??is taken by mouth. ?Shake the??oral suspension??(liquid). Measure a dose with the supplied measuring device (not a kitchen spoon). ?Sulfamethoxazole and trimethoprim??injection??is given in a vein. Be sure you understand how toproperly mix this medicine with a liquid (diluent) and how to store the mixture. Ask your doctor orpharmacist if you don't understand how to use an injection. ?Prepare an injection only when you are ready to give it.??Call your pharmacist if the medicine looks cloudy, has changed colors, or has particles in it. ?Mixed medicine must be used within 2 to 6 hours depending on the amount of diluent in the mixture. Follow your doctor's instructions.??Do not refrigerate mixed medicine. ?Do not reuse a needle or syringe. Place them in a puncture-proof 'sharps' container and disposeof it following state or local laws. Keep out of the reach of children and pets. ?Drink plenty of fluids to prevent kidney stones. ?Antibiotic medicines can cause diarrhea.??Tell your doctor if you have diarrhea that is watery or bloody. ?Keep using this medicine even if your symptoms quickly improve. Skipping doses could make your infection resistant to medication. Sulfamethoxazole and trimethoprim will not treat a viral infection (flu or a common cold). ?You may need blood and urine tests, and this medicine may be stopped based on the results. ?Store at room temperature away from moisture, heat, and light. Do not refrigerate. ?What happens if I miss a dose?Use the medicine as soon as you can, but skip the missed dose if it is almost time for your next dose. ??Do not??use two doses at one time. ?What happens if I overdose?Seek emergency medical attention or call the Poison Help line at . ?Overdose symptoms may include loss of appetite, vomiting, fever, blood in your urine, yellowingof your skin or eyes, confusion, or loss of consciousness. ?What should I avoid while using sulfamethoxazole and trimethoprim?If you use the injection form of this medicine,??do not eat or drink anything that contains propylene glycol (an ingredient in many processed foods, soft drinks, and medicines). ??Dangerous effects could occur. ?Sulfamethoxazole and trimethoprim could make you sunburn more easily. ??Avoid sunlight or tanning beds. Wear protective clothing and use sunscreen (SPF 30 or higher) when you are outdoors. ?What are the possible side effects of sulfamethoxazole and trimethoprim?Get emergency medical help if you have??signs of an allergic reaction??(hives, cough, chest pain, shortness of breath, swelling in your face or throat)??or a severe skin reaction??(fever, sore throat, burning eyes, skin pain, red or purple skin rash with blistering and peeling). ?Seek medical treatment if you have a serious drug reaction that can affect many parts of your body.?Symptoms may include: ??skin rash, fever, swollen glands, joint pain, muscle aches, severe weakness, pale skin, unusual bruising, or yellowing of your skin or eyes. ?Call your doctor at once if you have: ?severe stomach pain, diarrhea that is watery or bloody (even if it occurs months after yourlast dose); ?any skin rash, no matter how mild; ?yellowing of your skin or eyes; ?a seizure; ?new or unusual joint pain; ?increased or decreased urination; ?swelling, bruising, or irritation around the IV needle; ?increased thirst, dry mouth, fruity breath odor; ?new or worsening cough, fever, trouble breathing; ?high blood potassium--nausea, weakness, tingly feeling, chest pain, irregular heartbeats, loss of movement; ?low blood sodium--headache, confusion, problems with thinking or memory, weakness, feeling unsteady; or ?low blood cell counts--fever, chills, mouth sores, skin sores, easy bruising, unusual bleeding, pale skin, cold hands and feet, feeling light-headed or short of breath. ?Common side effects may include: ?nausea, vomiting, loss of appetite; or ?skin rash. ?This is not a complete list of side effects and others may occur. Call your doctor for medical advice about side effects. You may report side effects to FDA at 5-758-IHQ-2737. ?What other drugs will affect sulfamethoxazole and trimethoprim?You may need more frequent check-ups or medical tests if you also use medicine to treat depression, diabetes, seizures, or HIV. ?Tell your doctor about all your current medicines.?Many drugs can affect sulfamethoxazole and trimethoprim, especially: ?amantadine, digoxin, cyclosporine, indomethacin, leucovorin, methotrexate, procainamide, pyrimethamine; ?an 'TESS inhibitor' heart or blood presure medication (benazepril, enalapril, lisinopril, quinapril, ramipril, and others); or ?a diuretic or 'water pill'. ?This list is not complete and many other drugs may affect sulfamethoxazole and trimethoprim.??This includes prescription and ajtb-rno-qngpkvs medicines, vitamins, and herbal products. Not all possible drug interactions are listed here. ?Where can I get more information?Your pharmacist can provide more information about sulfamethoxazole and trimethoprim. ?Remember, keep this and all other medicines out of the reach of children, never share your medicines with others, and use this medication only for the indication prescribed. ?Every effort has been made to ensure that the information provided by [employer]') is accurate, up-to-date, and complete, but no guarantee is made to that effect. Drug information contained herein may be time sensitive. [employer] information has been compiled for use by healthcare practitioners and consumers in the [place] and therefore [employer] does not warrant that uses outside of the [place] are appropriate, unless specifically indicated otherwise. [employer] drug information does not endorse drugs, diagnose patients or recommend therapy. [employer] drug information is an informational resource designed to assist licensed healthcare practitioners in caring for their patients and/or to serve consumers viewing this service as a supplement to, and not a substitutefor, the expertise, skill, knowledge and judgment of healthcare practitioners. The absence of a warning for a given drug or drug combination in no way should be construed to indicate that the drug ordrug combination is safe, effective or appropriate for any given patient. [employer] does not assume any responsibility for any aspect of healthcare administered with the aid of information [employer] provides. The information contained herein is not intended to cover all possible uses, directions, precautions, warnings, drug interactions, allergic reactions, or adverse effects. If you have questions about the drugs you are taking, check with your doctor, nurse or pharmacist.? Copyright 8818-7816 [employer]. Version: 08.28. Revision Date: 06/25/2021. ? Patient Name:CELINA KING I have received this information and my questions have been answered. Patient/Urology Teacher Name: Patient/Urology Teacher Signature: Relationship to Patient: Witness Name/Signature: Date: Electronically Signed on: 05/24/2023 12:25 EDTSigned by:AF Discharge summary * Kevin Archer MD: PERFORM Event Display: Discharge Summary Authored Date: [id number] CELINA KING :1945 Age:78 years Sex:Male Visit Date:05/23/2023 Hospital Course Male with cirrhosis status post TIPS??noncompliant with lactulose admitted with a chief complaint??of hematuria which was not present??by time of admission though he did??have evidence of urinary tract infection, also with some mild hepatic encephalopathy likely precipitated by acute infection??improved with some lactulose??which I encourage better compliance with over the long run.?? Discharged home with some Bactrim for 5 days Physical Exam Vitals & Measurements T:??36.5?C ??(Temporal Artery)?? TMIN:??36.2?C ??(Temporal Artery)?? TMAX:??37.3?C ??(Temporal Artery)?? HR:??58??(Peripheral)?? RR:??18?? BP:??175/64?? SpO2:??90%?? HT:??175.200??cm?? WT:??125.100??kg?? BMI:??40.760?? Pain Score:??4?? O2 Therapy:??Room air?? General:??Alert and oriented, well nourished, No acute distress Eye:??PERRL, EOMI, normal conjunctiva Lungs:??Clear to auscultation and percussion, Non-labored respiration Heart:??Normal rate, Normal rhythm, No murmur, No gallop Abdomen:??Soft, non-tender, non-distended, normal bowel sounds, no masses Ostomy bag intact some loose stool in the Patient awake alert a bit hard of hearing not confused, possibly very faint asterixis present Medications Inpatient apixaban, 5 mg= 1 tab, Oral, BID carvedilol, 6.25 mg= 1 tab, Oral, BID Dextrose 50% injection, 25 g= 50 mL, IV Push, As Directed ferrous sulfate, 325 mg= 1 tab, Oral, Daily furosemide, 20 mg= 1 tab, Oral, Daily glucagon, 1 mg= 1 EA, Subcutaneous, As Directed insulin aspart Sliding Scale - Low Dose, Insulin Aspart Sliding Scale See Comments, Subcutaneous, AC & bedtime lactulose, 30 g= 45 mL, Oral, every 4 hr (reji) levothyroxine, 100 mcg= 1 tab, Oral, Daily losartan, 25 mg= 1 tab, Oral, Daily pantoprazole, 40 mg= 1 EA, IV Push, BID prazosin, 10 mg= 2 cap, Oral, every evening pregabalin, 50 mg= 2 cap, Oral, BID spironolactone, 25 mg= 1 tab, Oral, Daily tamsulosin, 0.4 mg= 1 cap, Oral, Daily venlafaxine, 150 mg= 1 cap, Oral, Daily Home apixaban 5 mg oral tablet, 5 mg= 1 tab, Oral, BID Bactrim DS 800 mg-160 mg oral tablet, 1 tab, Oral, every 12 hr carvedilol 6.25 mg oral tablet, 6.25 mg= 1 tab, Oral, BID clobetasol 0.05% topical cream, 1 deonna, Topical, Daily empagliflozin 25 mg oral tablet, 25 mg= 1 tab, Oral, every morning ferrous sulfate 325 mg (65 mg elemental iron) oral delayed release tablet, 325 mg= 1 tab, Oral, every evening furosemide 20 mg oral tablet, 20 mg= 1 tab, Oral, Daily lactulose 10 g/15 mL oral syrup, 10 g= 15 mL, Oral, BID levothyroxine, 100 mcg, Oral, Daily metFORMIN, 1000 mg, Oral, BID miconazole 2% topical powder, 1 deonna, Topical, BID nitroglycerin 0.4 mg sublingual tablet, 0.4 mg= 1 tab, SL, every 5 min, PRN pantoprazole 40 mg oral delayed release tablet, 40 mg= 1 tab, Oral, Daily, PRN prazosin 5 mg oral capsule, 10 mg= 2 cap, Oral, every evening pregabalin 50 mg oral capsule, 50 mg= 1 cap, Oral, BID spironolactone 25 mg oral tablet, 25 mg= 1 tab, Daily tamsulosin 0.4 mg oral capsule, 0.4 mg= 1 cap, Oral, Daily valsartan 40 mg oral tablet, 40 mg= 1 tab, Oral, BID venlafaxine 150 mg oral capsule, extended release, 150 mg= 1 cap, Oral, Daily Vitamin D3 50,000 intl units oral capsule, 1250 mcg= 1 cap, Oral, every week Social History Alcohol Current, Daily Electronic Cigarette/Vaping Electronic Cigarette Use: Never. Tobacco Never tobacco user Tobacco Use:. Discharge Plan 1.??Hepatic encephalopathy??K76.82 Mild encephalopathy here may have been precipitated by??urinary tract infection but nevertheless hehas had a TIPS procedure??and is at high risk of recurrent hepatic encephalopathy so I stressed with him better compliance??with the lactulose which he had not been taking. Ordered: Discharge Patient, 05/24/23 11:53:00 EDT ?? 2.??Urinary tract infection??N39.0 Gram-negative rods growing in the urine likely??given he is on Eliquis this is what precipitated some hematuria that resolved.?? Bactrim??twice daily for 5 days Ordered: Discharge Patient, 05/24/23 11:53:00 EDT ?? 3.??Liver cirrhosis??K74.60 Ordered: Discharge Patient, 05/24/23 11:53:00 EDT ?? Orders: Bactrim DS 800 mg-160 mg oral tablet, 1 tab, Oral, every 12 hr, # 10 tab, 0 Refill(s), Pharmacy: [id number], 175.2, cm, 05/24/23 2:35:00 EDT, Height/Length Dosing, 125.1, kg, 05/24/23 2:35:00 EDT, Weight Dosing All Diagnoses This Visit Hepatic encephalopathy Urinary tract infection Liver cirrhosis Patient Instructions Please make sure you take??your lactulose at least once a day if not more??this med is the only wayto prevent??a toxic buildup of ammonia??in your bloodstream.?? Lactulose??only is working effectively if you are having??more loose stools than normal Patient Education Urinary Tract Infection, Adult Follow Up With When Contact Information Follow up with primary care provider Within 1 month Additional Instructions: Medication Reconciliation New Prescription sulfamethoxazole-trimethoprim (Bactrim DS 800 mg-160 mg oral tablet)1 tab Oral (given by mouth) every 12 hours for 5 Days. Refills: 0. ?? Changed carvedilol (carvedilol 6.25 mg oral tablet)1 tab Oral (given by mouth) 2 times a day. ?? ferrous sulfate (ferrous sulfate 325 mg (65 mg elemental iron) oral delayed release tablet)1 tab Oral (given by mouth) every evening. ?? furosemide (furosemide 20 mg oral tablet)1 tab Oral (given by mouth) every day. and one tablet daily as needed to remove fluid. ?? lactulose (lactulose 10 g/15 mL oral syrup)15 Milliliters Oral (given by mouth) 2 times a day. ?? [id number] Micrograms Oral (given by mouth) every day. ?? metFORMIN1,000 Milligrams Oral (given by mouth) 2 times a day. ?? pantoprazole (pantoprazole 40 mg oral delayed release tablet)1 tab Oral (given by mouth) every day as needed other (see comment). for stomach acid. ?? prazosin (prazosin 5 mg oral capsule)2 Capsules Oral (given by mouth) every evening. ?? tamsulosin (tamsulosin 0.4 mg oral capsule)1 Capsules Oral (given by mouth) every day. ?? valsartan (valsartan 40 mg oral tablet)1 tab Oral (given by mouth) 2 times a day. ?? venlafaxine (venlafaxine 150 mg oral capsule, extended release)1 Capsules Oral (given by mouth) every day. ?? Unchanged apixaban (apixaban 5 mg oral tablet)1 tab Oral (given by mouth) 2 times a day. ?? cholecalciferol (Vitamin D3 50,000 intl units oral capsule)1 Capsules Oral (given by mouth) every week. saturdays. ?? clobetasol topical (clobetasol 0.05% topical cream)1 Application Topical (on the skin) every day. apply a small amount. ?? empagliflozin (empagliflozin 25 mg oral tablet)1 tab Oral (given by mouth) every morning. ?? miconazole topical (miconazole 2% topical powder)1 Application Topical (on the skin) 2 times a day. ?? nitroglycerin (nitroglycerin 0.4 mg sublingual tablet)1 tab Sublingual (dissolve under the tongue) every 5 minutes as needed as needed for chest pain. ?? pregabalin (pregabalin 50 mg oral capsule)1 Capsules Oral (given by mouth) 2 times a day. ?? spironolactone (spironolactone 25 mg oral tablet)1 tab every day. ?? Discontinued miconazole Electronically Signed on 05/24/23 12:19 PM Kevin Archer MD Patient Care team information Care Team Personnel Name: Mariya Swanson MD Position: Physician Member Role: ED Physician Address: Address: [address] [place] [address] Name: Amairani Rodrigues Position: Nurse Member Role: ED Nurse Care Team Related Persons Name: PATITO KING
[2023-09-22 11:06] LABS: Abs Immature Grans 0.02 10^3/uL (0.0-0.06); Absolute Basophil Count 0.03 10^3/uL (0.0-0.2); Absolute Eosinophil Count 0.25 10^3/uL (0.0-0.7); Absolute Lymphocyte Count 0.61 10^3/uL (1.2-3.4); Basophils % 0.7; Eosinophils % 6.2; HCT 40.8 % (40.0-50.0); HGB 13.5 g/dL (13.5-17.5); Immature Grans % 0.5; Lymphocytes % 15.1; MCH 29.5 pg (27.0-33.0); MCHC 33.1 % (32.0-36.0); MCV 89 fL (80-95); MPV 11.2 fL (8.0-11.0); Monocytes % 7.4; Neutrophils % 70.1; Platelet Count 63 10^3/uL (130-400); RBC 4.57 10^6/uL (4.36-5.78); RDW 14.4 % (11.8-14.1); RDW-SD 46.6 fL; WBC 4.03 10^3/uL (4.4-10.8)
[2023-09-22 11:08] LABS: Absolute Neutrophil Count 2.83 10^3/uL (1.2-6.7)
[2023-09-22 11:31] LABS: ALT 16 U/L (16-63); AST 34 U/L (15-37); Albumin 2.9 g/dL (3.4-5.0); Alkaline Phosphatase 113 U/L (46-116); Anion Gap 10.1 mmol/L (3-11); BUN 12 mg/dL (7-18); Bilirubin, Total 1.8 mg/dL (0.2-1.0); CO2 25.9 mmol/L (21.0-32.0); CREATININE 0.9 mg/dL (0.70-1.30); Calcium 9.6 mg/dL (8.5-10.1); Chloride 107 mmol/L (98-107); Estimated GFR 88.51 (mL/min/1.73m2); Glucose 143 mg/dL (74-106); Lipase > 375 U/L (16-77); Magnesium 1.7 mg/dL (1.8-2.4); Sodium 143 mmol/L (136-145); Total Protein 6.7 g/dL (6.4-8.2)
--- NOTE | 2023-09-22 11:57 | NUR.NOTE ---
patient reports left arm pain for last couple of days, more intense now. patient also reports that he had a heart monitor for about 2 wks and has not sent it in yet. I reported this to Dr. Szymanski, placed the patient on monitor and did repeat vital signs. CLB
[2023-09-22] MEDS: Dicyclomine 20 MG TAB PO (12:34)
--- NOTE | 2023-09-22 12:45 | RT.EKG_ITS ---
APPROVED REPORT Exam: Resting ECG Reason for Exam: weakness Patient Location: E HR:59 bpm ECG Measurements Heart Rate 59 AXIS MA 297 P -28 QRSd 134 QRS 5 QT 457 T [id number] QTc 452 Conclusion Sinus bradycardia...rate< 60 Prolonged MA interval...MA >220, V-rate 50- 90 Left bundle branch block...QRSd>120, broad/notched R
== END 2023-09-22 13:29 | disposition home or self-care (01) ==
PROVIDERS: Emergency Provider Emergency Medicine Emergency Medical Services; PCP Nurse Practitioner Adult Health
DX: K52.9 Noninfective gastroenteritis and colitis, unspecified (principal); K85.90 Acute pancreatitis without necrosis or infection, unspecified
CPT/HCPCS: 80053; 83690; 93005; 99284; 74176; 83735; 85025; 93010

== ENCOUNTER 2023-11-03 21:23 | Observation (INO) | payer OTHER, SELFPAY ==
[2023-11-03] VITALS (23 sets, daily range): BP systolic 161–183; BP diastolic 49–75; PULSE 62–132; RESP 10–19; TEMP 36.9; O2SAT 93
--- NOTE | 2023-11-03 21:15 | RT.EKG_ITS ---
APPROVED REPORT Exam: Resting ECG Reason for Exam: weakness, multiple falls Patient Location: E HR:83 bpm ECG Measurements Heart Rate 83 AXIS NE 205 P 228 QRSd 131 QRS -34 QT 393 T 130 QTc 463 Conclusion Sinus or ectopic atrial rhythm...P axis (-45,135) Left bundle branch block...QRSd>120, broad/notched R Normal sinus rhythm at a rate of 83 with left bundle branch block and first-degree AV block. Not izzy ting Sgarbossa criteria nor modified Berg criteria for ischemia. No acute injury pattern. Left bun dle branch block is persistent and this is first-degree AV block. Sinus rhythm has replaced sinus br adycardia. Prior dated last year.
--- NOTE | 2023-11-03 21:30 | DI.CT_ITS ---
Exam(s) CT CHEST/ABD/PEL W EXAM: CT CHEST/ABD/PEL W CLINICAL HISTORY: falls on thinners. TECHNIQUE: Imaging Protocol: Axial computed tomography images with coronal and sagittal reformatted images were created and reviewed CONTRAST MATERIAL: Intravenous: Omnipaque 350 Contrast volume:100 ml Oral: None COMPARISON: CT CT ABDOMEN PELVIS WO from 09/22/2023 FINDINGS: CHEST: LUNGS: No infiltrates nor lung contusion nor pleural effusions evident. No pneumothorax. MEDIASTINUM: No evidence of sternal fracture or mediastinal hematoma. Visualized thyroid unremarkabl e. No incidental hilar nor mediastinal adenopathy. CARDIAC: Heart size upper normal. No pericardial effusion. Thoracic aorta unremarkable. OSSEOUS: No acute fractures evident. No significant osseous lesions.. ABDOMEN: There is no ascites. No evidence of bowel wall nor mesenteric hematoma. LIVER: Cirrhotic appearing liver again noted with TIPS shunt in place again noted. No new significan t focal liver findings. No liver laceration. GALLBLADDER/BILIARY: No obvious gallbladder pathology. CBD is not dilated. PANCREAS: No evidence of pancreatic mass nor dilatation of the pancreatic duct. SPLEEN: Splenomegaly again noted. No splenic laceration. Splenic and portal veins patent. ADRENALS: There are no significant adrenal masses. KIDNEYS: No renal lacerations. No subcapsular hematomas.. No cysts nor solid masses in the kidneys. No calculi. No hydronephrosis. No hydroureter. ABDOMINAL AORTA: Abdominal aorta is peripherally calcified. There is a focal infrarenal abdominal ao rtic mild aneurysm measuring 2.5 cm. The diameter of the aorta above this level is 2.2 cm. Common i liac arteries are calcified but not enlarged. LYMPH NODES: There is no retroperitoneal nor paraaortic adenopathy. ABDOMINAL WALL: Right para umbilical hernia sac which does not contain bowel loops and there is no tr ansition point in this region. There is a left-sided colostomy. No significant hernia at this level . GI: There is no evidence of bowel obstruction. PELVIS: LYMPH NODES: There is no intrapelvic nor inguinal adenopathy. GI: No evidence of appendicitis.No evidence of sigmoid diverticulitis. URINARY BLADDER: Bladder base is indented by enlarged prostate gland. REPRODUCTIVE: Enlarged prostate. No obturator adenopathy evident. OSSEOUS: No significant osseous lesions. No acute fractures IMPRESSION: 1. No significant acute trauma sequelae in the chest, abdomen, and pelvis. 2. No significant incidental findings in the chest 3. Cirrhotic liver with TIPS shunt. Splenomegaly. No ascites. 4. Left-sided colostomy. No bowel obstruction, free air, nor abscess. Other findings as above. RADIATION DOSE DELIVERED: 1,697.12mGy.cm Total DLP DATA REPOSITORY: All CT scans at this facility are submitted to the National Radiology Data Registry (NRDR) Dose Index Registry (DIR) with the [employer] ([employer]). RADIATION OPTIMIZATION: All CT scans at this facility use at least one of these dose optimization te chniques: automated exposure control; mA and/or kV adjustment per patient size (includes targeted exa ms where dose is matched to clinical indication); or iterative reconstruction.
--- NOTE | 2023-11-03 21:42 | DI.CT_ITS ---
Exam(s) CT HEAD CERVICAL SPINE WO EXAM: CT HEAD CERVICAL SPINE WO CLINICAL HISTORY: falls on thinners. TECHNIQUE: Imaging Protocol: Axial computed tomography images with coronal and sagittal reformatted images were created and reviewed COMPARISON: CT CT HEAD WO from 07/07/2023 FINDINGS: BRAIN: There are no skull fractures. Mucosal thickening is noted in both maxillary sinuses as well as evide nce surgical defect the medial patterson of both maxillary sinuses. No fluid levels. There is no evidence of intracranial hemorrhage, mass effect, or shift of midline structures. There are no extra-axial fluid collections. The ventricles are not enlarged or shifted and there is no blo od within the ventricular system nor within the basal cisterns. CERVICAL SPINE: There is no evidence of fracture nor listhesis. No significant prevertebral soft tissue swelling. Chronic disc space narrowing at C5-6 level. Osteophytic density posterior to the spinous process of C7 noted which does not have an acute appearance and is either prior hyacinth-crystalizer tender's fracture or just calcification within the supraspinous ligament at this level. Multilevel facet arthropathy evident. There is no significant facet joint malalignment. No significant osseous lesions evident. IMPRESSION: No acute intracranial findings on this noninfused CT scan of the brain.Previous bilateral sinus surge ry. Mucosal thickening both maxillary sinuses, left more than right. No fluid levels therein. No evidence of cervical spine fracture, malalignment, nor acute compromise of the cervical spinal can al. RADIATION DOSE DELIVERED: 1,444.81mGy.cm Total DLP DATA REPOSITORY: All CT scans at this facility are submitted to the National Radiology Data Registry (NRDR) Dose Index Registry (DIR) with the [employer] ([employer]). RADIATION OPTIMIZATION: All CT scans at this facility use at least one of these dose optimization te chniques: automated exposure control; mA and/or kV adjustment per patient size (includes targeted exa ms where dose is matched to clinical indication); or iterative reconstruction.
[2023-11-03 22:03] LABS: Abs Immature Grans 0.05 10^3/uL (0.0-0.06); Absolute Basophil Count 0.05 10^3/uL (0.0-0.2); Absolute Eosinophil Count 0.13 10^3/uL (0.0-0.7); Absolute Lymphocyte Count 0.74 10^3/uL (1.2-3.4); Absolute Monocyte Count 1.04 10^3/uL (0.1-0.8); Absolute Neutrophil Count 9.39 10^3/uL (1.2-6.7); Basophils % 0.4; Eosinophils % 1.1; HCT 41.1 % (40.0-50.0); HGB 14.6 g/dL (13.5-17.5); Immature Grans % 0.4; Lactate 4.3 mmol/L (0.6-1.4); Lymphocytes % 6.5; MCH 30.5 pg (27.0-33.0); MCHC 35.5 % (32.0-36.0); MCV 86 fL (80-95); MPV 11.3 fL (8.0-11.0); Monocytes % 9.1; Neutrophils % 82.5; RBC 4.79 10^6/uL (4.36-5.78); RDW 14.8 % (11.8-14.1); RDW-SD 46.2 fL; WBC 11.38 10^3/uL (4.4-10.8)
--- NOTE | 2023-11-03 22:08 | ED.GENADUL_ITS ---
HPI General Stated Complaint: Fall/Non TraumaCriteria ANNA: 2 Date/Time Provider Initiated Documentation: 11/03/23 21:33. HPI Narrative: 78 year-old male presents to ED today by EMS with a chief complaint of multiple falls, on blood thinners, dizziness, weakness, reports increased frequent urination as well with onset of falls starting at 1530, has history of multiple falls. Quality described as just starts to fall when he attempts to walk. Has bruising to back, and pain in L shoulder, no radiation to headache, numbness/tingling, denies overt vertigo, endorses poor balance, denies abdominal pain, denies fever, denies chest pain/shortness of breath. Severity is described as 5/10 to L shoulder. Palliating factors include nothing specific attempted. Provoking factors include nothing specific. Patient is anticoagulated on Eliquis. Related Data Home Medications Medication Instructions Recorded Confirmed apixaban 5 mg tablet (Eliquis) 5 mg PO BID 11/08/22 11/03/23 metformin 1,000 mg tablet 1,000 mg PO BID 11/08/22 11/03/23 pantoprazole 40 mg tablet,delayed 40 mg PO DAILY 11/08/22 11/03/23 release prazosin 5 mg capsule 10 mg PO QHS 11/08/22 11/03/23 pregabalin 50 mg capsule 50 mg PO BID 11/08/22 11/03/23 spironolactone 25 mg tablet 25 mg PO QAM 11/08/22 11/03/23 valsartan 40 mg tablet 40 mg PO BID 11/08/22 11/03/23 venlafaxine 150 mg 150 mg PO DAILY 11/08/22 11/03/23 capsule,extended release 24 hr tamsulosin 0.4 mg capsule 0.4 mg PO DAILY 11/29/22 11/03/23 nitroglycerin 0.4 mg sublingual 0.4 mg sublingual Q5 MIN PRN X3 02/10/23 11/03/23 tablet PRN #30 tabs ferrous sulfate 325 mg (65 mg 325 mg PO DAILY 03/08/23 11/03/23 iron) tablet empagliflozin 25 mg tablet 25 mg PO DAILY 04/09/23 11/03/23 furosemide 20 mg tablet (Lasix) 20 mg PO QAM 04/09/23 11/03/23 levothyroxine 200 mcg tablet 100 mcg (1/2 x 200 mcg) PO QAM #0 04/10/23 11/03/23 tabs ergocalciferol (vitamin D2) 1,250 1,250 mcg PO QWEEK 06/16/23 11/03/23 mcg (50,000 unit) capsule miconazole nitrate 2 % topical 1 applic topical BID PRN 06/16/23 11/03/23 powder acetaminophen 325 mg capsule 650 mg (2 x 325 mg) PO Q8H PRN #0 06/17/23 11/03/23 (Tylenol) caps carvedilol 3.125 mg tablet 3.125 mg PO BID #0 tabs 06/17/23 11/03/23 rifaximin 550 mg tablet 550 mg PO BID 07/07/23 11/03/23 dicyclomine 10 mg capsule 10 mg PO BID #20 caps 09/22/23 11/03/23 Previous Rx's Medication Instructions Recorded nitroglycerin 0.4 mg sublingual 0.4 mg sublingual Q5 MIN PRN X3 02/10/23 tablet PRN #30 tabs levothyroxine 200 mcg tablet 100 mcg (1/2 x 200 mcg) PO QAM #0 04/10/23 tabs acetaminophen 325 mg capsule 650 mg (2 x 325 mg) PO Q8H PRN #0 06/17/23 (Tylenol) caps carvedilol 3.125 mg tablet 3.125 mg PO BID #0 tabs 06/17/23 dicyclomine 10 mg capsule 10 mg PO BID #20 caps 09/22/23 Allergies Allergy/AdvReac Type Severity Reaction Status Date / Time Penicillins Allergy Mild Itching Unverified 11/03/23 21:38 morphine AdvReac Severe vomiting Unverified 11/03/23 21:38 mussels AdvReac Severe vomiting Unverified 11/03/23 21:38 Review of Systems All systems reviewed & are unremarkable except as noted in HPI and below PFSH All Active Problems (Updated 10/23/23 @ 00:06 by JOSE LUIS REICH) Hypokalemia (Acute) Bradycardia (Acute) Multiple falls (Acute) Acute metabolic encephalopathy (Acute) Medication monitoring encounter (Acute) ANETTE (obstructive sleep apnea) (Chronic) Chest pain (Acute) CHF exacerbation (Acute) CHF (congestive heart failure) (Chronic) Medical History Anticoagulated COVID Chronic low back pain Recurrent intestinal obstruction History of colon cancer Palliative care encounter Followed by [facility] Chronic anticoagulation Portal hypertension Cirrhosis TIPs placed (?when, [facility]? 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 [place]. Exam Narrative Exam Narrative: GENERAL APPEARANCE: Well-nourished, non-toxic, awake and alert, atraumatic, no acute distress. SKIN: Warm, pink, dry, intact, without rashes/lesions/ulcerations. HEAD: Normocephalic, atraumatic, normal hair distribution for gender/age. EYES: Pupils PERRLA, EOMs intact without nystagmus, normal conjunctiva, no exudates on lids/lashes. ENT: Nares patent, no circumoral cyanosis, no facial swelling NECK: Supple, trachea midline, painless cervical ROM. LUNGS/CHEST: Lungs CTA bilaterally- no rhonchi/rales/wheezes diffusely, non- labored respirations, normal A/P diameter, symmetrical expansion, no chest wall deformity HEART (CV/PV): Regular rate and rhythm without murmur, no peripheral edema, no JVD. ABDOMEN: Soft, non-distended, no guarding, no tenderness, has ostomy in place. MSK: Normal ROM, no swelling/deformity to bilateral UEs or LEs, moving all extremities without weakness, no cyanosis, spine midline without tenderness, normal curvature. Minor bruise to R scapula, no crepitus to L shoulder, no midline vertebral tenderness/crepitus/step-offs to entire spine, pelvis stable, no sign of scalp hematoma NEURO: Mental Status AAOx4 - alert to person, place, time, events No facial droop, no forehead involvement. Motor: No focal weakness - strength 5/5 in bilateral UEs and LEs, proximal and distal, symmetric. Sensory: sensation intact to light touch globally. Gait NT. PSYCH: euthymic, cooperative, pleasant, appropriate speech Course Vital Signs Vital signs: Vital Signs Temperature 36.9 C 11/03/23 21:35 Pulse 90 11/03/23 21:35 Respiratory Rate 17 11/03/23 21:35 Blood Pressure 172/69 H 11/03/23 21:35 Pulse Oximetry 93 11/03/23 21:35 Temperature 36.9 C 11/03/23 21:35 Temperature Source Temporal Artery Scan 11/03/23 21:35 Pulse 90 11/03/23 21:35 Respiratory Rate 17 11/03/23 21:35 Respiratory Effort Normal, Non-Labored 11/03/23 21:56 Blood Pressure 172/69 H 11/03/23 21:35 Blood Pressure Position Supine 11/03/23 21:35 Pulse Oximetry 93 11/03/23 21:35 Oxygen Delivery Method Room Air 11/03/23 21:35 Oxygen Flow Rate 0 11/03/23 21:35 Pain Level 8 11/03/23 21:56 Lab/Test Results Lab/Test Results: Laboratory Tests Range/Units 11/03/23 21:49 VBG Lactate (0.6-1.4) mmol/L 4.3 H* Medical Decision Making This dictation utilizes [id number] dictation software and may contain unedited grammatical errors. 78 y/o M presents to ED today with a chief complaint of multiple falls, seen for this in the past- on anticoagulation, has dizziness, back and L shoulder pain/bruising, denies abdominal pain, endorses generalized weakness. [ ]. Patients' medical history: [ ]. Family and social history: [ ]. Pertinent exam findings / vital signs include Minor bruise to R scapula, no crepitus to L shoulder, no midline vertebral tenderness/crepitus/step-offs to entire spine, pelvis stable, no sign of scalp hematoma. Differential / pathologies of concern include ICH, fracture, splenic/liver lac, contusions, ACS, less likely posterior CVA. Diagnostic studies of: -Boo-Scan CT, CBC, CMP, Lipase, Liver Panel, UA, Trop I, BNP, EKG. -initial trop negative, repeat pending at sign-out -CBC shows no anemia, do not suspect hemorrhage -Liver panel shows elevated bilirubin and mild elev conjugated -UA shows UTI -EKG shows no STEMI, does show significant ectopy, patient having some short runs of VT on monitor -CT head & C-spine negative Interventions of: -650mg APAP. ED Course/Assessment/Plan: 78-year-old male presents to the ED with multiple falls today, profound weakness with any ambulation, denies overt head strike, first fall was greater than 6 hours ago and has no neurologic abnormality since then. He reports that he does have left shoulder pain and some bruising to his right scapular area but no midline vertebral tenderness, he has a benign abdomen with ostomy in place, he does report increased urinary frequency and does have a UTI on UA which I am giving him a dose of IV ceftriaxone for, has a very mild leukocytosis of 11.3, chronically low platelets 90 today, has been lower in the past, Initial lactate is 4.3 but has been 4.6 in the past, anion gap 12.5, creatinine is acutely elevated at 1.6, possibly related to his UTI, has chronically elevated bilirubin . Patient signed out to Dr. Mari with remaining CT scans pending. Findings not consistent with ICH, sepsis- suspect he does not clear lactate due to hepatic pathology. Disposition of Multiple Falls, UTI. Patient verbalized understanding of the plan and return to ED criteria and engaged in shared decision making. Medical Records Medical records reviewed: Yes I reviewed the patient's medical records. Imaging Data Radiologic Study: Imaging: CT Scan My impression: head and C-spine CT negative Radiologist's impression: Exam: CT Head Without Contrast Exam date and time: 11/03/2023 10:52 PM Age: 78 years old Clinical indication: Injury or trauma; Fall; Blunt trauma (contusions or hematomas); Consciousness not specified; Injury date: 11/03/23; Injury details: Fell 4 times today TECHNIQUE: Imaging protocol: Computed tomography of the head without contrast. Radiation optimization: All CT scans at this facility use at least one of these dose optimization techniques: automated exposure control; mA and/or kV adjustment per patient size (includes targeted exams where dose is matched to clinical indication); or iterative reconstruction. COMPARISON: CT HEAD WO 07/07/2023 12:28 PM FINDINGS: Brain: Mild white matter disease No hemorrhage. Mild volume loss. No mass effect. Cerebral ventricles: No ventriculomegaly. Paranasal sinuses: Polypoid tissue in the maxillary sinuses. Postsurgical changes in the ostiomeatal units . No fluid levels. Mastoid air cells: Visualized mastoid air cells are well aerated. Bones/joints: Unremarkable. No acute fracture. Soft tissues: Unremarkable. IMPRESSION: No acute intracranial hemorrhage PROCEDURE INFORMATION: Exam: CT Cervical Spine Without Contrast Exam date and time: 11/03/2023 10:52 PM Age: 78 years old Clinical indication: Injury or trauma; Fall; Blunt trauma (contusions or hematomas); Consciousness not specified; Injury date: 11/03/23; Injury details: Fell 4 times today TECHNIQUE: Imaging protocol: Computed tomography of the cervical spine without contrast. Radiation optimization: All CT scans at this facility use at least one of these dose optimization techniques: automated exposure control; mA and/or kV adjustment per patient size (includes targeted exams where dose is matched to clinical indication); or iterative reconstruction. COMPARISON: CT HEAD CERVICAL SPINE WO 06/16/2023 3:29 PM FINDINGS: Bones/joints: No acute fracture. Loss of cervical lordosis is presumably on a degenerative basis. Mild central canal stenosis and severe foraminal stenosis Lungs: Lung apices are normal. Soft tissues: Unremarkable. IMPRESSION: No acute findings. Dictated and Authenticated by: Remi Rouse MD. Ordering:JUAN ANTONIO Weinstein MD Lab Data Lab results reviewed: Yes I reviewed the patient's lab results. Labs: 11/03/23 21:49 Urine - Reflex from Ua Urine Culture - Pending Laboratory Tests Range/Units 11/03/23 11/03/23 21:49 22:05 WBC (4.4-10.8) 10^3/uL 11.38 H RBC (4.36-5.78) 10^6/uL 4.79 Hgb (13.5-17.5) g/dL 14.6 Hct (40.0-50.0) % 41.1 MCV (80-95) fL 86 MCH (27.0-33.0) pg 30.5 MCHC (32.0-36.0) % 35.5 RDW (11.8-14.1) % 14.8 H Plt Count (130-400) 10^3/uL 90 L MPV (8.0-11.0) fL 11.3 H Immature Gran % 0.4 Neutrophils % 82.5 Lymphocytes % 6.5 Monocytes % 9.1 Eosinophils % 1.1 Basophils % 0.4 Nucleated RBC % (0.0-0.3) % 0.0 Absolute Neutrophils (1.2-6.7) 10^3/uL 9.39 H Absolute Lymphocytes (1.2-3.4) 10^3/uL 0.74 L Absolute Monocytes (0.1-0.8) 10^3/uL 1.04 H Absolute Eosinophils (0.0-0.7) 10^3/uL 0.13 Absolute Basophils (0.0-0.2) 10^3/uL 0.05 RBC Morphology Normal VBG Lactate (0.6-1.4) mmol/L 4.3 H* Sodium (136-145) mmol/L 136 Potassium (3.5-5.1) mmol/L 3.5 Chloride (98-107) mmol/L 102 Carbon Dioxide (21.0-32.0) mmol/L 21.5 Anion Gap (3-11) mmol/L 12.5 H BUN (7-18) mg/dL 16 Creatinine (0.70-1.30) mg/dL 1.6 H Est GFR (CKD-EPI 2020) (mL/min/1.73m2) 44.38 Glucose (74-106) mg/dL 252 H Calcium (8.5-10.1) mg/dL 9.6 Magnesium (1.8-2.4) mg/dL 2.0 Total Bilirubin (0.2-1.0) mg/dL 2.4 H Conjugated Bilirubin (0.0-0.2) mg/dL 0.6 H AST (15-37) U/L 35 ALT (16-63) U/L 16 Alkaline Phosphatase (46-116) U/L 129 H Creatine Kinase (39-308) U/L 114 Troponin I (<or=60) ng/L < 50 NT-Pro-B Natriuret Pep (<300) pg/mL 210 Total Protein (6.4-8.2) g/dL 7.3 Albumin (3.4-5.0) g/dL 3.2 L Lipase (16-77) U/L 47 Urine Color (Yellow) Yellow Urine Clarity (Clear) Sl Cloudy Urine pH (5-8) 5.5 Ur Specific [place] (1.005-1.025) 1.015 Urine Protein (Negative) mg/dL 100 H Urine Ketones (Negative) mg/dL Negative Urine Blood (Negative) Moderate H Urine Nitrite (Negative) Positive H Urine Bilirubin (Negative) Negative Urine Urobilinogen (Up to 0.2) mg/dL 0.2 Ur Leukocyte Esterase (Negative) Negative Urine RBC (0-2) HPF 3-5 H Urine WBC (0-5) HPF >50 H Ur Epithelial Cells (Negative) HPF Few Urine Crystals (Negative) HPF Negative Urine Bacteria (Negative) HPF Moderate Urine Casts (Negative) LPF Negative Urine Mucus (Negative) Moderate Ur Culture Indicated? Yes Urine Glucose (Negative) mg/dL >=1000 H COVID-19 Source Nasopharynx SARS-CoV-2 (PCR) (Negative) Negative Influenza Type A (PCR) (Negative) Negative Influenza Type B (PCR) (Negative) Negative RSV (PCR) (Negative) Negative Patient ABO/Rh O Positive Antibody Screen NEGATIVE Quality:SDOH Health Related Social Needs: No Data to Display Discharge Plan Discharge Details Chief Complaint: Fall/Non TraumaCriteria Primary Care Provider: Maryann Whitt ED Provider: Js Beckwith Home Meds and New Rx's Prescriptions: No Action venlafaxine 150 mg Capsule,Extended Release 24hr 150 mg PO DAILY spironolactone 25 mg Tablet 25 mg PO QAM prazosin 5 mg Capsule 10 mg PO QHS pantoprazole 40 mg Tablet,Delayed Release (Dr/Ec) 40 mg PO DAILY metformin 1,000 mg Tablet 1,000 mg PO BID valsartan 40 mg Tablet 40 mg PO BID pregabalin 50 mg Capsule 50 mg PO BID Eliquis 5 mg Tablet 5 mg PO BID Patient Comments: not taking nitroglycerin 0.4 mg Tablet, Sublingual 0.4 mg sublingual Q5 MIN PRN X3 PRNQty: 30 0RF ergocalciferol (vitamin D2) 1,250 mcg (50,000 unit) Capsule 1,250 mcg PO QWEEK Patient Comments: not taking miconazole nitrate 2 % Powder 1 applic TOPICAL BID PRN carvedilol 3.125 mg tablet 3.125 mg PO BID Qty: 0 0RF Patient Comments: TAKE 1 TABLET (3.125MG) BY MOUTH TWICE DAILY Rx Instructions: with meals acetaminophen [Tylenol] 325 mg Capsule 650 mg PO Q8H MDD 3000 PRNQty: 0 0RF rifaximin 550 mg Tablet 550 mg PO BID tamsulosin 0.4 mg Capsule 0.4 mg PO DAILY ferrous sulfate 325 mg (65 mg iron) Tablet 325 mg PO DAILY empagliflozin 25 mg Tablet 25 mg PO DAILY furosemide [Lasix] 20 mg tablet 20 mg PO QAM levothyroxine 200 mcg Tablet 100 mcg PO QAM Qty: 0 0RF dicyclomine 10 mg capsule 10 mg PO BID Qty: 20 0RF
[2023-11-03 22:12] LABS: Bilirubin Negative (Negative); Blood Moderate (Negative); Clarity Sl Cloudy (Clear); Glucose >=1000 mg/dL (Negative); Ketones Negative (Negative); Leukocyte Esterase Negative (Negative); Nitrite Positive (Negative); Specific Gravity 1.015 (1.005-1.025); Urobilinogen 0.2 mg/dL (Up to 0.2); pH 5.5 (5-8)
[2023-11-03 22:14] LABS: Diff Comment PLT Morph Reviewed; Platelet Count 90 10^3/uL (130-400); RBC Morphology Normal
[2023-11-03 22:18] LABS: Bacteria Moderate HPF (Negative); Crystals Negative HPF (Negative); Epithelial Cells Few HPF (Negative); Mucus Moderate (Negative); WBC >50 HPF (0-5)
[2023-11-03 22:19] LABS: C & S Indicated? Yes; Casts Negative LPF (Negative)
[2023-11-03 22:29] LABS: ALT 16 U/L (16-63); AST 35 U/L (15-37); Albumin 3.2 g/dL (3.4-5.0); Alkaline Phosphatase 129 U/L (46-116); Anion Gap 12.5 mmol/L (3-11); BUN 16 mg/dL (7-18); Bilirubin, Direct 0.6 mg/dL (0.0-0.2); Bilirubin, Total 2.4 mg/dL (0.2-1.0); CO2 21.5 mmol/L (21.0-32.0); CREATININE 1.6 mg/dL (0.70-1.30); Calcium 9.6 mg/dL (8.5-10.1); Chloride 102 mmol/L (98-107); Creatine Kinase 114 U/L (39-308); Estimated GFR 44.38 (mL/min/1.73m2); Glucose 252 mg/dL (74-106); Lipase 47 U/L (16-77); NT-proBNP 210 pg/mL (<300); Potassium 3.5 mmol/L (3.5-5.1); Sodium 136 mmol/L (136-145); Total Protein 7.3 g/dL (6.4-8.2); Troponin I < 50 ng/L (<or=60)
[2023-11-03] MEDS: Omnipaque 350 MG/ML 100 ML BTL IJ (22:46)
[2023-11-03 22:48] LABS: COVID-19 PCR Negative (Negative); Influenza A PCR Negative (Negative); Influenza B PCR Negative (Negative); RSV PCR Negative (Negative)
--- NOTE | 2023-11-03 22:48 | DI.CT_ITS ---
Exam(s) CT THORACIC LUMBAR SPINE REC EXAM: CT THORACIC LUMBAR SPINE REC CLINICAL HISTORY: trauma TECHNIQUE: COMPARISON: CT CT CHEST/ABD/PEL W from 11/03/2023 FINDINGS: THORACIC SPINAL COLUMN: There is age-related osteopenia no evidence of acute fracture. No listhesis. No facet malalignment. LUMBOSACRAL SPINAL COLUMN: There is multilevel advanced disc space narrowing at each level in the lum bar spine but no evidence of acute fracture or listhesis. No pars defects. Multilevel facet arthrop athy noted. No incidental osseous lesions evident. IMPRESSION: No acute fractures evident in the thoracic and lumbar spinal columns.
[2023-11-03 22:50] LABS: Source Nasopharynx
[2023-11-03] MEDS: Normal Saline - Diluent 50 ML VIAL IJ (22:52)
[2023-11-03] MEDS: Normal Saline Flush 10 ML SYR IVP (22:53)
--- NOTE | 2023-11-03 23:18 | DI.VRAD_ITS ---
PROCEDURE INFORMATION: Exam: CT Head Without Contrast Exam date and time: 11/03/2023 10:52 PM Age: 78 years old Clinical indication: Injury or trauma; Fall; Blunt trauma (contusions or hematomas); Consciousness not specified; Injury date: 11/03/23; Injury details: Fell 4 times today TECHNIQUE: Imaging protocol: Computed tomography of the head without contrast. Radiation optimization: All CT scans at this facility use at least one of these dose optimization techniques: automated exposure control; mA and/or kV adjustment per patient size (includes targeted exams where dose is matched to clinical indication); or iterative reconstruction. COMPARISON: CT HEAD WO 07/07/2023 12:28 PM FINDINGS: Brain: Mild white matter disease No hemorrhage. Mild volume loss. No mass effect. Cerebral ventricles: No ventriculomegaly. Paranasal sinuses: Polypoid tissue in the maxillary sinuses. Postsurgical changes in the ostiomeatal units . No fluid levels. Mastoid air cells: Visualized mastoid air cells are well aerated. Bones/joints: Unremarkable. No acute fracture. Soft tissues: Unremarkable. IMPRESSION: No acute intracranial hemorrhage PROCEDURE INFORMATION: Exam: CT Cervical Spine Without Contrast Exam date and time: 11/03/2023 10:52 PM Age: 78 years old Clinical indication: Injury or trauma; Fall; Blunt trauma (contusions or hematomas); Consciousness not specified; Injury date: 11/03/23; Injury details: Fell 4 times TECHNIQUE: Imaging protocol: Computed tomography of the cervical spine without contrast. Radiation optimization: All CT scans at this facility use at least one of these dose optimization techniques: automated exposure control; mA and/or kV adjustment per patient size (includes targeted exams where dose is matched to clinical indication); or iterative reconstruction. COMPARISON: CT HEAD CERVICAL SPINE WO 06/16/2023 3:29 PM FINDINGS: Bones/joints: No acute fracture. Loss of cervical lordosis is presumably on a degenerative basis. Mild central canal stenosis and severe foraminal stenosis Lungs: Lung apices are normal. Soft tissues: Unremarkable. IMPRESSION: No acute findings. Dictated and Authenticated by: Remi Rouse MD. Ordering:JUAN ANTONIO Weinstein MD
--- NOTE | 2023-11-03 23:34 | DI.VRAD_ITS ---
PROCEDURE INFORMATION: Exam: CT Thoracic Spine Without Contrast Exam date and time: 11/03/2023 11:00 PM Age: 78 years old Clinical indication: Injury or trauma; Blunt trauma (contusions or hematomas); Injury date: 11/03/23; Injury details: Fall, back pain TECHNIQUE: Imaging protocol: Computed tomography of the thoracic spine without contrast. Radiation optimization: All CT scans at this facility use at least one of these dose optimization techniques: automated exposure control; mA and/or kV adjustment per patient size (includes targeted exams where dose is matched to clinical indication); or iterative reconstruction. COMPARISON: CT CHEST/ABD/PEL W 11/03/2023 11:00 PM FINDINGS: Bones/joints: No acute fracture. Normal alignment. No significant disc bulge or herniation. No severe spinal canal stenosis. No significant neural foraminal narrowing. Soft tissues: Unremarkable. IMPRESSION: No acute thoracic fracture PROCEDURE INFORMATION: Exam: CT Lumbar Spine Without Contrast Exam date and time: 11/03/2023 11:00 PM Age: 78 years old Clinical indication: Injury or trauma; Blunt trauma (contusions or hematomas); Injury date: 11/03/23; Injury details: Fall, back pain TECHNIQUE: Imaging protocol: Computed tomography of the lumbar spine without contrast. Radiation optimization: All CT scans at this facility use at least one of these dose optimization techniques: automated exposure control; mA and/or kV adjustment per patient size (includes targeted exams where dose is matched to clinical indication); or iterative reconstruction. COMPARISON: CT CHEST/ABD/PEL W 11/03/2023 11:00 PM FINDINGS: Bones/joints: No acute fracture. Loss of lumbar lordosis is presumed degenerative. Chronic loss of vertebral body height. Multilevel severe foraminal stenosis. Moderate central canal stenosis at L2-L3, L3-L4 and L4-L5 There is a deformity at the sacrococcygeal junction sagittal image 55, grossly stable Minimal presacral fluid, grossly stable Soft tissues: Unremarkable. IMPRESSION: No acute lumbar fracture Age-indeterminate deformity at the sacrococcygeal junction. Minimal fluid in the presacral space. Findings are grossly stable since the prior abdomen and pelvis CT dated 09/22/2023 Dictated and Authenticated by: Remi Rouse MD. Ordering:JUAN ANTONIO Weinstein MD
--- NOTE | 2023-11-03 23:34 | DI.VRAD_ITS ---
PROCEDURE INFORMATION: Exam: CT Chest With Contrast; Diagnostic Exam date and time: 11/03/2023 11:00 PM Age: 78 years old Clinical indication: Injury or trauma; Generalized; Blunt trauma (contusions or hematomas); Injury date: 11/03/23; Injury details: Falls, TECHNIQUE: Imaging protocol: Diagnostic computed tomography of the chest with contrast. Radiation optimization: All CT scans at this facility use at least one of these dose optimization techniques: automated exposure control; mA and/or kV adjustment per patient size (includes targeted exams where dose is matched to clinical indication); or iterative reconstruction. Contrast material: OMNIPAQUE 350; Contrast volume: 100 ml; Contrast route: INTRAVENOUS (IV); COMPARISON: CT CHEST/ABD/PEL W 06/16/2023 3:42 PM FINDINGS: Lungs: Minimal emphysema No consolidation. No masses. Minimal subsegmental atelectasis versus scarring Pleural spaces: Unremarkable. No pneumothorax. No pleural effusion. Heart: Unremarkable. No cardiomegaly. No pericardial effusion. Lymph nodes: Unremarkable. No enlarged lymph nodes. Vasculature: Unremarkable. No aortic aneurysm. Bones/joints: Unremarkable. No acute fracture. Soft tissues: Unremarkable. IMPRESSION: No CT evidence for acute traumatic injury to the chest PROCEDURE INFORMATION: Exam: CT Abdomen And Pelvis With Contrast Exam date and time: 11/03/2023 11:00 PM Age: 78 years old Clinical indication: Injury or trauma; Generalized; Blunt trauma (contusions or hematomas); Injury date: 11/03/23; Injury details: , TECHNIQUE: Imaging protocol: Computed tomography of the abdomen and pelvis with contrast. Radiation optimization: All CT scans at this facility use at least one of these dose optimization techniques: automated exposure control; mA and/or kV adjustment per patient size (includes targeted exams where dose is matched to clinical indication); or iterative reconstruction. Contrast material: OMNIPAQUE 350; Contrast volume: 100 ml; Contrast route: INTRAVENOUS (IV); COMPARISON: CT ABDOMEN PELVIS WO 09/22/2023 10:55 AM FINDINGS: Liver: Cirrhosis and caps at shunt. Hypodensity in the left lobe on axial image 65 series 5 is grossly stable and indeterminate Gallbladder and bile ducts: No calcified stones. No ductal dilation. Pancreas: No ductal dilation. Spleen: No splenomegaly. Adrenal glands: No mass. Kidneys and ureters: No hydronephrosis. Stomach and bowel: Left-sided colostomy. Prior right hemicolectomy. Suture line in the upper pelvis. Mild non-specific small bowel thickening. No obstruction. No mucosal thickening. Appendix: No evidence of appendicitis. Intraperitoneal space: Minimal presacral fluid and postsurgical changes No free air. No significant fluid collection. Vasculature: No abdominal aortic aneurysm. Lymph nodes: Unremarkable. No enlarged lymph nodes. Urinary bladder: Partially decompressed. Reproductive: Unremarkable as visualized. Bones/joints: . No acute fracture. Soft tissues: Unremarkable. IMPRESSION: No solid organ injury observed Otherwise, grossly stable chronic findings and postsurgical changes as noted Dictated and Authenticated by: Remi Rouse MD. Ordering:JUAN ANTONIO Weinstein MD
[2023-11-03] MEDS: cefTRIAXone 2 GM/50 ML BAG IVPB (23:45)
[2023-11-04] VITALS (72 sets, daily range): BP systolic 119–198; BP diastolic 43–100; PULSE 63–97; RESP 13–23; TEMP 36.7–37.6; O2SAT 93–96
--- NOTE | 2023-11-04 | ED.PROG_ITS ---
Date of service: 11/04/23 Time of Service: 00:00 Medical Decision Making This patient was signed out to me. Please see previous notes for H&P and initial eval. In brief, 78yo M presenting for lightheadedness, frequent falls. Found to have UTI, getting ceftriaxone. CT jiménez scan negative. Labs overall reassuring, essentially at basline aside from RODOLFO with Cr of 1.6. Has elevated bilirubin and lactic at baseline, not worse today. Has been non-toxic appearing with reassuring vital signs (albeit hypertensive) while in the ED. Signed out pending delta troponin, if negative and able to ambulate safely potentially dc home on antibiotics. Delta troponin rising, up to 60. Frequent ectopy on the monitor. Stood at bedside with nursing and very symptomatic, increased ectopy, decrease in SBP to 130 (from 170's). Discussed with hospitalist Dr. Jim; accepted to medicine service and awaiting transfer to the floor. Quality:[facility] Health Related Social Needs: No Data to Display Sign Out Sign Out Data: Sign Out Comment: UTI, multiple falls, getting ceftriaxone Pending CT Chest/ABD/Pelvis possible L shoulder injury repeat trop Last updated by Js Beckwith PA at 11/03/23 23:34 Discharge Plan Disposition Patient Disposition: Admit to [facility] Condition: Serious Discharge Details Chief Complaint: Fall/Non TraumaCriteria Clinical Impression: Orthostatic hypotension, Frequent falls, Acute kidney injury, Pre-syncope Primary Care Provider: Maryann Whitt ED Provider: Genia Mrai Home Meds and New Rx's Prescriptions: No Action venlafaxine 150 mg Capsule,Extended Release 24hr 150 mg PO DAILY spironolactone 25 mg Tablet 25 mg PO QAM prazosin 5 mg Capsule 10 mg PO QHS pantoprazole 40 mg Tablet,Delayed Release (Dr/Ec) 40 mg PO DAILY metformin 1,000 mg Tablet 1,000 mg PO BID valsartan 40 mg Tablet 40 mg PO BID pregabalin 50 mg Capsule 50 mg PO BID Eliquis 5 mg Tablet 5 mg PO BID Patient Comments: not taking nitroglycerin 0.4 mg Tablet, Sublingual 0.4 mg sublingual Q5 MIN PRN X3 PRNQty: 30 0RF ergocalciferol (vitamin D2) 1,250 mcg (50,000 unit) Capsule 1,250 mcg PO QWEEK Patient Comments: not taking miconazole nitrate 2 % Powder 1 applic TOPICAL BID PRN carvedilol 3.125 mg tablet 3.125 mg PO BID Qty: 0 0RF Patient Comments: TAKE 1 TABLET (3.125MG) BY MOUTH TWICE DAILY Rx Instructions: with meals acetaminophen [Tylenol] 325 mg Capsule 650 mg PO Q8H MDD 3000 PRNQty: 0 0RF rifaximin 550 mg Tablet 550 mg PO BID tamsulosin 0.4 mg Capsule 0.4 mg PO DAILY ferrous sulfate 325 mg (65 mg iron) Tablet 325 mg PO DAILY empagliflozin 25 mg Tablet 25 mg PO DAILY furosemide [Lasix] 20 mg tablet 20 mg PO QAM levothyroxine 200 mcg Tablet 100 mcg PO QAM Qty: 0 0RF dicyclomine 10 mg capsule 10 mg PO BID Qty: 20 0RF
--- NOTE | 2023-11-04 | DI.RAD_ITS ---
Exam(s) XR SHOULDER LT COMPLETE 2+V EXAM: XR SHOULDER LT COMPLETE 2+V CLINICAL HISTORY: pain, trauma. TECHNIQUE: 2D digital imaging was performed. COMPARISON: CR XR SHOULDER LT COMPLETE 2+V from 06/17/2023 FINDINGS: Five views. No evidence of acute fracture or dislocation nor abnormal soft tissue calcifications. Subacromial sp mercedes appears unremarkable. Mild degenerative changes in the AC joint. Minimal degenerative changes i n the glenohumeral joint. Bone density age-appropriate. No osseous lesions. IMPRESSION: No significant radiographic findings in the left shoulder. DATA REPOSITORY: RADIATION DOSE DELIVERED:
[2023-11-04 00:58] LABS: Troponin I 60 ng/L (<or=60)
[2023-11-04] MEDS: Normal Saline 1,000 ML 250 ML IV ×2 (02:57→10:12)
--- NOTE | 2023-11-04 03:10 | W.PM.HP.N ---
Date of service: 11/04/23 Time of Service: 03:10 Assessment and Plan Assessment and plan (1) Multiple falls: Start date: 11/04/23 Status: Acute Assessment and plan: This is a 78-year-old gentleman with chronic medical problems calling progressive weakness presenting with positional orthostasis and falls without significant injury. Does have bruising of his back but no acute fractures or solid organ damage with multiple CT scans performed. He is obese and deconditioned. He does use a walker to ambulate and when he uses a walker he is not fall. He does have sleep apnea which is treated and multiple medical problems overall stable. He is a full code but should discuss his overall health with palliative care as to the reason wellness of resuscitation if acute decompensation with cardiac arrest or severe stroke with his poor prognosis of resuscitation. This discussion can be had with his PCP. He appears to be in the hospital frequently when his is hospitalized and may be dependent on her being home for his health care and wellbeing. This should be discussed with Care Management team. (2) UTI (urinary tract infection): Start date: 11/04/23 Status: Acute Assessment and plan: Patient appears to have UTI and has incontinence which is intermittent by history. This will be treated with IV Rocephin and follow-up urine culture adjusting oral therapy appropriately. Qualifiers: Hematuria presence: without hematuria Urinary tract infection type: acute cystitis Qualified Code(s): N30.00 - Acute cystitis without hematuria (3) RODOLFO (acute kidney injury): Start date: 11/04/23 Status: Acute Assessment and plan: Patient has acute elevation of his creatinine and will be hydrated with normal saline with follow-up labs. He states that he has been eating and drinking well with his medications may get ahead of him with treatment of his cirrhosis with diuretics taken daily. (4) Lactic acid acidosis: Start date: 11/04/23 Status: Acute Assessment and plan: Recurrent with patient dehydrated. Rehydrate and follow-up lactic acid in the morning. (5) Type 2 diabetes mellitus: Status: Chronic Assessment and plan: Patient will have his outpatient medications held with before meals and bedtime glucometers using sliding scale with short acting insulin. Qualifiers: Chronic kidney disease stage: stage 2 (mild) Diabetes mellitus complication detail: with chronic kidney disease Diabetes mellitus complication status: with kidney complications Diabetes mellitus terminal makeup operator insulin use: without terminal makeup operator use Qualified Code(s): E11.22 - Type 2 diabetes mellitus with diabetic chronic kidney disease; N18.2 - Chronic kidney disease, stage 2 (mild) (6) Chronic atrial fibrillation: Status: Chronic Assessment and plan: Patient appears to have aberrantly conducted wide-complex is 4 PVCs with some frequency on monitor. Troponin is negative and slightly increased on second measurement and will be checked in the morning. He is asymptomatic other than following and feeling dizzy which may be more associated with his acute urinary tract infection and duration. Monitor rate on his usual outpatient medication therapy and continue Eliquis anticoagulation. (7) Cirrhosis: Assessment and plan: Status post TIPS procedure the patient not actively drinking. Qualifiers: Ascites presence: without ascites Hepatic cirrhosis type: alcoholic cirrhosis Qualified Code(s): K70.30 - Alcoholic cirrhosis of liver without ascites (8) ANETTE (obstructive sleep apnea): Status: Chronic Assessment and plan: Continue BiPAP with home settings. Weight loss may help this problem. Patient should consider GLP-1 agonist for treatment of diabetes as well as this problem with obesity. History of Present Illness History of Present Illness Chief Complaint: Multiple falls at home on blood thinners with urinary incontinence/weakness Narrative: This is a 78-year-old male patient who lives with his who is frequently hospitalized with GI bleed and anemia who is presently hospitalized at this institution and his son who is 65 being on his phone all night with his friends with no specific disability but sounds like he has not lived outside the house as an adult. He presents with frequent falls falling 4 times daily admission having problems with weakness and feeling dizzy for at least 1 week falling frequently. He denies any chest pain or shortness of breath but does have bruising on his back he is on Eliquis for chronic atrial fibrillation. He is not having focal neurological complaints but generally feels like his legs are getting weak. He does walk with a walker and does not fall when he uses his assist device. In the ED he has pain was 5 out of 10 over his shoulder otherwise he had no focal discomfort other than overall body aches. He is overweight. He is diabetic but not on injectable treatment such as GLP-1 agonists. He also takes multiple medications for his atrial fibrillation which could cause orthostasis. In the ED he was orthostatic. He also was incontinent of urine denies any dysuria and had a positive urine for UTI. He was initiated on Rocephin in the ED. He also appears to have acute kidney injury with elevation of his creatinine from his baseline and was started on IV fluids. Patient is extremely weak and worsening with his acute processes prompting admission for IV hydration IV antibiotic therapy as well as reevaluation by physical therapy and Occupational Therapy. Multiple imaging with CT revealed no acute fractures or injury. He is a full code. Review of Systems Narrative: 13 point review of systems is positive for patient being overweight and chronically slight worsening of this problem with deconditioning and immobility. Otherwise as per HPI was stable. He does have chronic problems with mobility with multiple chronic medical problems not optimally controlled with poor lifestyle choices. PFSH All Active Problems (Updated 11/04/23 @ 03:59 by Phoenix Jim) Lactic acid acidosis (Acute) UTI (urinary tract infection) (Acute) Chronic atrial fibrillation (Chronic) RODOLFO (acute kidney injury) (Acute) Type 2 diabetes mellitus (Chronic) Hypokalemia (Acute) Bradycardia (Acute) Multiple falls (Acute) Acute metabolic encephalopathy (Acute) Medication monitoring encounter (Acute) ANETTE (obstructive sleep apnea) (Chronic) Chest pain (Acute) CHF exacerbation (Acute) CHF (congestive heart failure) (Chronic) Medical History (Updated 11/04/23 @ 03:59 by Phoenix Jim) Creatinine elevation Acute UTI Anticoagulated COVID Chronic low back pain Recurrent intestinal obstruction History of colon cancer Palliative care encounter Followed by [facility] Chronic anticoagulation Portal hypertension Cirrhosis TIPs placed (?when, [facility]? 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, Dx [facility] as per pt Non-insulin dependent type 2 diabetes mellitus Incontinence Hypertension Scleral icterus Surgical History S/P TIPS (transjugular intrahepatic portosystemic shunt) Colostomy in place H/O left hemicolectomy Social History Smoking/Tobacco Use Status: Former Tobacco Use Smoking risk assessment performed?: Yes Alcohol Intake: former Drug use: Never Substance use type: does not use Housing: house Do you feel safe at home: Yes Do you feel safe in your relationship?: Yes Additional Social history: Lives with , son, and sick [id number] in [place], moved up from [place] in 2019. [place]. Meds Allergies and Home Medications Allergies Allergy/AdvReac Type Severity Reaction Status Date / Time Penicillins Allergy Mild Itching Unverified 11/03/23 21:38 morphine AdvReac Severe vomiting Unverified 11/03/23 21:38 mussels AdvReac Severe vomiting Unverified 11/03/23 21:38 Home Medications Medication Instructions Recorded Confirmed Type apixaban 5 mg tablet (Eliquis) 5 mg PO BID 11/08/22 11/03/23 History metformin 1,000 mg tablet 1,000 mg PO BID 11/08/22 11/03/23 History pantoprazole 40 mg tablet,delayed 40 mg PO DAILY 11/08/22 11/03/23 History release prazosin 5 mg capsule 10 mg PO QHS 11/08/22 11/03/23 History pregabalin 50 mg capsule 50 mg PO BID 11/08/22 11/03/23 History spironolactone 25 mg tablet 25 mg PO QAM 11/08/22 11/03/23 History valsartan 40 mg tablet 40 mg PO BID 11/08/22 11/03/23 History venlafaxine 150 mg 150 mg PO DAILY 11/08/22 11/03/23 History capsule,extended release 24 hr tamsulosin 0.4 mg capsule 0.4 mg PO DAILY 11/29/22 11/03/23 History nitroglycerin 0.4 mg sublingual 0.4 mg sublingual Q5 MIN PRN X3 02/10/23 11/03/23 Rx tablet PRN #30 tabs ferrous sulfate 325 mg (65 mg 325 mg PO DAILY 03/08/23 11/03/23 History iron) tablet empagliflozin 25 mg tablet 25 mg PO DAILY 04/09/23 11/03/23 History furosemide 20 mg tablet (Lasix) 20 mg PO QAM 04/09/23 11/03/23 History levothyroxine 200 mcg tablet 100 mcg (1/2 x 200 mcg) PO QAM #0 04/10/23 11/03/23 Rx tabs ergocalciferol (vitamin D2) 1,250 1,250 mcg PO QWEEK 06/16/23 11/03/23 History mcg (50,000 unit) capsule miconazole nitrate 2 % topical 1 applic topical BID PRN 06/16/23 11/03/23 History powder acetaminophen 325 mg capsule 650 mg (2 x 325 mg) PO Q8H PRN #0 06/17/23 11/03/23 Rx (Tylenol) caps carvedilol 3.125 mg tablet 3.125 mg PO BID #0 tabs 06/17/23 11/03/23 Rx rifaximin 550 mg tablet 550 mg PO BID 07/07/23 11/03/23 History dicyclomine 10 mg capsule 10 mg PO BID #20 caps 09/22/23 11/03/23 Rx Exam Narrative Exam Narrative: General: Patient appears older than stated age, morbidly obese lying in bed comfortably in no acute distress and speaking in normal tone and corona. He is alert and oriented x 3. HEENT: Normocephalic, coarsened facial features, eyes with pupils equal and react to light symmetrically, extraocular movement intact and sclera anicteric. Oropharynx with dry mucosa and poor dentition with many missing teeth and discolored carious teeth remaining. Neck: Supple without JVD. Back: Kyphotic without CVA tenderness. Bruising over the back. Lungs: Fair aeration and clear to auscultation and percussion. No focalizing rales or rhonchi. Heart: Irregularly irregular rhythm with 3/6 holosystolic murmur over the apex. Frequent ectopy on monitor with wide-complex beats and short runs of aberrantly conducted supraventricular beats which are not regular as with PVCs. Abdomen: Obese contour, soft nontender to palpation no focal guarding or tenderness. No rebound. Colostomy in left abdomen. Bowel sounds positive all quadrants. No palpable hepatosplenomegaly. Genitalia/rectal: Exam deferred. Extremities: Nonpitting edema of lower extremities with no clubbing or cyanosis. Fair capillary refill. Skin: Warm, normal color and dry. Actinic changes over sun exposed areas with multiple hyperpigmented seborrheic keratoses especially over back. Neuro: Cranial nerves II through XII gross intact, no focal motor deficits or tremor. Psych: Slightly flattened affect but normal mood. Remote and recent memory grossly intact. No abnormal thought processes. Results Imaging Imaging Studies: Exam: CT Thoracic Spine Without Contrast Exam date and time: 11/03/2023 11:00 PM Age: 78 years old Clinical indication: Injury or trauma; Blunt trauma (contusions or hematomas); Injury date: 11/03/23; Injury details: Fall, back pain COMPARISON: CT CHEST/ABD/PEL W 11/03/2023 11:00 PM FINDINGS: Bones/joints: No acute fracture. Normal alignment. No significant disc bulge or herniation. No severe spinal canal stenosis. No significant neural foraminal narrowing. Soft tissues: Unremarkable. IMPRESSION: No acute thoracic fracture Exam: CT Lumbar Spine Without Contrast Exam date and time: 11/03/2023 11:00 PM Age: 78 years old Clinical indication: Injury or trauma; Blunt trauma (contusions or hematomas); Injury date: 11/03/23; Injury details: Fall, back pain COMPARISON: CT CHEST/ABD/PEL W 11/03/2023 11:00 PM FINDINGS: Bones/joints: No acute fracture. Loss of lumbar lordosis is presumed degenerative. Chronic loss of vertebral body height. Multilevel severe foraminal stenosis. Moderate central canal stenosis at L2-L3, L3-L4 and L4-L5 There is a deformity at the sacrococcygeal junction sagittal image 55, grossly stable Minimal presacral fluid, grossly stable Soft tissues: Unremarkable. IMPRESSION: No acute lumbar fracture Exam: CT Chest With Contrast; Diagnostic Exam date and time: 11/03/2023 11:00 PM Age: 78 years old Clinical indication: Injury or trauma; Generalized; Blunt trauma (contusions or hematomas); Injury date: 11/03/23; Injury details: Falls, on tinners COMPARISON: CT CHEST/ABD/PEL W 06/16/2023 3:42 PM FINDINGS: Lungs: Minimal emphysema No consolidation. No masses. Minimal subsegmental atelectasis versus scarring Pleural spaces: Unremarkable. No pneumothorax. No pleural effusion. Heart: Unremarkable. No cardiomegaly. No pericardial effusion. Lymph nodes: Unremarkable. No enlarged lymph nodes. Vasculature: Unremarkable. No aortic aneurysm. Bones/joints: Unremarkable. No acute fracture. Soft tissues: Unremarkable. IMPRESSION: No CT evidence for acute traumatic injury to the chest Exam: CT Abdomen And Pelvis With Contrast Exam date and time: 11/03/2023 11:00 PM Age: 78 years old Clinical indication: Injury or trauma; Generalized; Blunt trauma (contusions or hematomas); Injury date: 11/03/23; Injury details: Falls, on tinners COMPARISON: CT ABDOMEN PELVIS WO 09/22/2023 10:55 AM FINDINGS: Liver: Cirrhosis and caps at shunt. Hypodensity in the left lobe on axial image 65 series 5 is grossly stable and indeterminate Gallbladder and bile ducts: No calcified stones. No ductal dilation. Pancreas: No ductal dilation. Spleen: No splenomegaly. Adrenal glands: No mass. Kidneys and ureters: No hydronephrosis. Stomach and bowel: Left-sided colostomy. Prior right hemicolectomy. Suture line in the upper pelvis. Mild non-specific small bowel thickening. No obstruction. No mucosal thickening. Appendix: No evidence of appendicitis. Intraperitoneal space: Minimal presacral fluid and postsurgical changes No free air. No significant fluid collection. Vasculature: No abdominal aortic aneurysm. Lymph nodes: Unremarkable. No enlarged lymph nodes. Urinary bladder: Partially decompressed. Reproductive: Unremarkable as visualized. Bones/joints: . No acute fracture. Soft tissues: Unremarkable. IMPRESSION: No solid organ injury observed Otherwise, grossly stable chronic findings and postsurgical changes as noted Exam: CT Head Without Contrast Exam date and time: 11/03/2023 10:52 PM Age: 78 years old Clinical indication: Injury or trauma; Fall; Blunt trauma (contusions or hematomas); Consciousness not specified; Injury date: 11/03/23; Injury details: Fell 4 times today COMPARISON: CT HEAD WO 07/07/2023 12:28 PM FINDINGS: Brain: Mild white matter disease No hemorrhage. Mild volume loss. No mass effect. Cerebral ventricles: No ventriculomegaly. Paranasal sinuses: Polypoid tissue in the maxillary sinuses. Postsurgical changes in the ostiomeatal units . No fluid levels. Mastoid air cells: Visualized mastoid air cells are well aerated. Bones/joints: Unremarkable. No acute fracture. Soft tissues: Unremarkable. IMPRESSION: No acute intracranial hemorrhage Exam: CT Cervical Spine Without Contrast Exam date and time: 11/03/2023 10:52 PM Age: 78 years old Clinical indication: Injury or trauma; Fall; Blunt trauma (contusions or hematomas); Consciousness not specified; Injury date: 11/03/23; Injury details: Fell 4 times today COMPARISON: CT HEAD CERVICAL SPINE WO 06/16/2023 3:29 PM FINDINGS: Bones/joints: No acute fracture. Loss of cervical lordosis is presumably on a degenerative basis. Mild central canal stenosis and severe foraminal stenosis Lungs: Lung apices are normal. Soft tissues: Unremarkable. IMPRESSION: No acute findings. Labs 11/03/23 21:49 11/03/23 21:49 Labs: Laboratory Results - last 24 hr 11/03/23 11/03/23 11/04/23 21:49 22:05 00:30 WBC 11.38 H RBC 4.79 Hgb 14.6 Hct 41.1 MCV 86 MCH 30.5 MCHC 35.5 RDW 14.8 H Plt Count 90 L MPV 11.3 H Immature Gran % 0.4 Neutrophils % 82.5 Lymphocytes % 6.5 Monocytes % 9.1 Eosinophils % 1.1 Basophils % 0.4 Nucleated RBC % 0.0 Absolute Neutrophils 9.39 H Absolute Lymphocytes 0.74 L Absolute Monocytes 1.04 H Absolute Eosinophils 0.13 Absolute Basophils 0.05 RBC Morphology Normal VBG Lactate 4.3 H* Sodium 136 Potassium 3.5 Chloride 102 Carbon Dioxide 21.5 Anion Gap 12.5 H BUN 16 Creatinine 1.6 H Est GFR (CKD-EPI 2020) 44.38 Glucose 252 H Calcium 9.6 Magnesium 2.0 Total Bilirubin 2.4 H Conjugated Bilirubin 0.6 H AST 35 ALT 16 Alkaline Phosphatase 129 H Creatine Kinase 114 Troponin I < 50 60 NT-Pro-B Natriuret Pep 210 Total Protein 7.3 Albumin 3.2 L Lipase 47 Urine Color Yellow Urine Clarity Sl Cloudy Urine pH 5.5 Ur Specific [place] 1.015 Urine Protein 100 H Urine Ketones Negative Urine Blood Moderate H Urine Nitrite Positive H Urine Bilirubin Negative Urine Urobilinogen 0.2 Ur Leukocyte Esterase Negative Urine RBC 3-5 H Urine WBC >50 H Ur Epithelial Cells Few Urine Crystals Negative Urine Bacteria Moderate Urine Casts Negative Urine Mucus Moderate Ur Culture Indicated? Yes Urine Glucose >=1000 H COVID-19 Source Nasopharynx SARS-CoV-2 (PCR) Negative Influenza Type A (PCR) Negative Influenza Type B (PCR) Negative RSV (PCR) Negative Patient ABO/Rh O Positive Antibody Screen NEGATIVE Last Vital Signs Temp 36.9 C 11/03/23 21:35 Pulse 77 11/04/23 02:47 Resp 17 11/04/23 02:50 BP 171/68 H 11/04/23 02:47 Pulse Ox 93 11/03/23 21:35 Time Spent Time spent with Patient: >75 minutes Time was spent: preparing to see the patient(eg.review tests), obtaining and/or reviewing separately otained hiistory, ordering medications,tests, procedures, referring, communicating with other health client care specialist, indepentently interpreting results, counseling the patient and care coordination
[2023-11-04 05:24] LABS: Troponin I 71 ng/L (<or=60)
[2023-11-04 07:49] LABS: HCT 39.5 % (40.0-50.0); HGB 13.9 g/dL (13.5-17.5); MCH 30.3 pg (27.0-33.0); MCHC 35.2 % (32.0-36.0); MCV 86 fL (80-95); MPV 11.2 fL (8.0-11.0); RBC 4.59 10^6/uL (4.36-5.78); RDW 14.8 % (11.8-14.1); RDW-SD 46.4 fL; WBC 10.33 10^3/uL (4.4-10.8)
[2023-11-04 07:50] LABS: INR 1.2 (0.9-1.1); Prothrombin Time 11.6 sec (9.1-11.1)
--- NOTE | 2023-11-04 08:00 | RT.EKG_ITS ---
APPROVED REPORT Exam: Resting ECG Reason for Exam: mildly elevated troponin Patient Location: I HR:79 bpm ECG Measurements Heart Rate 79 AXIS ID 315 P -37 QRSd 126 QRS -20 QT 377 T 139 QTc 433 Conclusion Sinus rhythm...normal P axis, V-rate 50- 99 Ventricular trigeminy...trigeminy string>6 w/ V complexes Prolonged ID interval...ID >220, V-rate 50- 90 Left atrial enlargement...P, P'>60mS, <-0.15mV V1 Left bundle branch block...QRSd>120, broad/notched R Artifact in lead(s) I,III,aVR,aVL,aVF,V1,V2,V3,V4,V5,V6 I have reviewed and interpreted ECG and agree with software generated interpretation.
[2023-11-04 08:11] LABS: ALT 13 U/L (16-63); AST 25 U/L (15-37); Albumin 2.8 g/dL (3.4-5.0); Alkaline Phosphatase 114 U/L (46-116); Anion Gap 11.3 mmol/L (3-11); BUN 15 mg/dL (7-18); Bilirubin, Total 2.6 mg/dL (0.2-1.0); CO2 24.7 mmol/L (21.0-32.0); CREATININE 1.3 mg/dL (0.70-1.30); Calcium 9.1 mg/dL (8.5-10.1); Chloride 105 mmol/L (98-107); Estimated GFR 56.93 (mL/min/1.73m2); Glucose 198 mg/dL (74-106); Sodium 141 mmol/L (136-145); Total Protein 6.7 g/dL (6.4-8.2)
[2023-11-04 08:15] LABS: Platelet Count 80 10^3/uL (130-400)
[2023-11-04 08:22] LABS: Lactate 1.5 mmol/L (0.6-1.4)
[2023-11-04 08:26] LABS: Potassium 2.9 mmol/L (3.5-5.1)
[2023-11-04 08:48] LABS: FREE T4 1.43 ng/dL (0.76-1.46)
[2023-11-04 08:50] LABS: Troponin I 74 ng/L (<or=60)
[2023-11-04 09:05] LABS: Procalcitonin 0.1 ng/mL
--- NOTE | 2023-11-04 09:34 | INITIAL_ITS ---
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 He is an [employer] and is 100% [facility] connected. Merrill occasionally uses a walker for ambulatory assistance and is independent with his ADLs at baseline. CURRENT FUNCTIONAL STATUS:: Merrill was sitting up in bed when CM met with him. He was pleasant in interaction and agreeable to conversation. Merrill shared that he came to the hospital because he fell. He stated that he is starting to lose his legs. He informed CM that he has been falling more frequently at home and is not able to get off the floor, even with the assistance of his son. Merrill shared that he has had to call EMS for help. Merrill complained of left arm/shoulder pain while meeting with CM. CM relayed the information to the provider who ordered imaging. ADVANCE DIRECTIVES:: Has Advanced directives but not on file at [facility]. Has patient been provided with info about the portal/API?: Yes Did the patient sign up for the portal?: No CODE STATUS:: Full Code INSURANCE COVERAGE / FINANCIAL ISSUES:: [facility] CURRENT HOME/COMMUNITY SERVICES/EQUIPMENT:: uses a walker PRIMARY CARE PHYSICIAN:: Maryann Whitt POTENTIAL DISCHARGE NEEDS:: follow up with PCP and plan of care PATIENT/FAMILY EDUCATION NEEDS:: Review of discharge instructions, activity, limitations, follow up plan, discuss Ask Me Three TRANSPORTATION:: via private vehicle with family PLAN:: Anticipate Merrill will be discharged home with new home health services for PT and nursing. He will follow up with his community providers and plan of care and transport with family. CM will follow and continue to assess for discharge concerns. [facility] All Active Problems (Updated 11/04/23 @ 04:31 by Genia Mari MD) Pre-syncope (Acute) Acute kidney injury (Acute) Frequent falls (Acute) Orthostatic hypotension (Acute) Lactic acid acidosis (Acute) UTI (urinary tract infection) (Acute) Chronic atrial fibrillation (Chronic) RODOLFO (acute kidney injury) (Acute) Type 2 diabetes mellitus (Chronic) Hypokalemia (Acute) Bradycardia (Acute) Multiple falls (Acute) Acute metabolic encephalopathy (Acute) Medication monitoring encounter (Acute) ANETTE (obstructive sleep apnea) (Chronic) Chest pain (Acute) CHF exacerbation (Acute) CHF (congestive heart failure) (Chronic) Medical History (Updated 11/04/23 @ 04:31 by Genia Mari MD) Creatinine elevation Acute UTI Anticoagulated COVID Chronic low back pain Recurrent intestinal obstruction History of colon cancer Palliative care encounter [facility] by [facility] Chronic anticoagulation Portal hypertension Cirrhosis TIPs placed (?when, [facility]? 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 [place] . SDOH(Care Management) Screening Will the Patient Participate in the Screening?: Yes Do you worry about having a steady place to live?: yes Problems where you live: pests such as bugs, ants or mice and Carbon monoxide detectors missing or not working In the past 12 months, have you had to go without electric, gas, oil or water in your home?: no Have you or anyone in your house had to go without enough food to eat?: no Has lack of transportation kept you from medical appointments or from doing things needed for daily living?: yes Has anyone in your support network made you feel unsafe for any reason?: no Health Related Social Needs Health related social needs: inadequate housing(Z59.1), housing instability, housed, with risk of homelessness(Z59.811) and transportation insecurity(Z59.82)
[2023-11-04] MEDS: Ferrous Sulfate 325 MG TAB PO (10:13)
[2023-11-04] MEDS: Potassium Chloride 20 MEQ TABCR 40 MEQ PO (10:14)
[2023-11-04] MEDS: Spironolactone 25 MG TAB PO (10:14)
[2023-11-04] MEDS: Rifaximin 550 MG TAB PO ×2 (10:14→20:02)
[2023-11-04] MEDS: Pregabalin 50 MG CAP PO ×2 (10:14→20:01)
[2023-11-04] MEDS: Dicyclomine 10 MG CAP PO ×2 (10:14→20:02)
[2023-11-04] MEDS: Valsartan 40 MG TAB PO ×2 (10:15→17:34)
[2023-11-04] MEDS: Empaglifozin 25 MG TAB PO (10:15)
[2023-11-04] MEDS: Tamsulosin 0.4 MG CAPCR PO (10:15)
[2023-11-04] MEDS: Venlafaxine 150 MG CAPCR PO (10:15)
--- NOTE | 2023-11-04 10:46 | PT.INIE ---
PT Notes Visit Reasons: Multiple Falls,UTI,RODOLFO,CAF with Controlled Rate Physical Therapy Inpatient Initial Evaluation Date: 11/04/2023 Referring Doctor: Phoenix Jim MD PT Orders: PT CONSULT: Exacerbation Chronic Cond Precautions: Fall. Standard. Activity as tolerated. Ostomy in place. Patient Profile/Admitting Diagnosis:? Osmar is a 78-year-old male admitted for management of repeated falls, urinary tract infection, lactic acidosis, NIDDM, history of colon cancer with colostomy in place, bradycardia, cirrhosis and ANETTE. Fell at home leading to this admission. PMHX: All Active Problems (Updated 11/04/23 @ 03:59 by Phoenix Jim) Lactic acid acidosis (Acute) UTI (urinary tract infection) (Acute) Chronic atrial fibrillation (Chronic) RODOLFO (acute kidney injury) (Acute) Type 2 diabetes mellitus (Chronic) Hypokalemia (Acute) Bradycardia (Acute) Multiple falls (Acute) Acute metabolic encephalopathy (Acute) Medication monitoring encounter (Acute) ANETTE (obstructive sleep apnea) (Chronic) Chest pain (Acute) CHF exacerbation (Acute) Medical History (Updated 11/04/23 @ 03:59 by Phoenix Jim) Creatinine elevation Acute UTI Anticoagulated COVID Chronic low back pain Recurrent intestinal obstruction History of colon cancer Palliative care encounter Followed by [facility] Chronic anticoagulation Portal hypertension Cirrhosis [place] [facility] [place] 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, [facility] as per pt Non-insulin dependent type 2 diabetes mellitus Incontinence Hypertension Scleral icterus Surgical History S/P TIPS (transjugular intrahepatic portosystemic shunt) Colostomy in place H/O left hemicolectomy Social History/Home Situation: Osmar lives with and son in a private home with a ramp to enter.? has not been doing well herself and cannot help patient physically, she is in fact also admitted to this hospital at the present he says. Son may be available as needed during the day. Ambulatory inside the house using SPC, FWW infrequently. Equipment Owned/DME: 4WW, FWW, SPC, scooter Subjective: Indicated that he has fallen more than 10 times in the past year. Adds that his back has been practically junk that the [facility] doctors did not want to operate on. His back felt that it hurt more after this most recent fall. Nurse Kylee made aware. Agreeable to walking a short distance for this session. Objective: General Observation: Supine in bed, telemetry monitoring in place. Nurse Kylee performing ostomy care for patient when PT arrived. IV through the L UE. Mental Status: Alert and oriented as to person, place, time, and purpose. Able to pay attention, focus, and respond appropriately. Pain: 5/10 in R low back area Vital Signs: Closley monitored by nursing staff ROM: Right Upper Extremity: ? Shoulder Flexion WFL. Shoulder abduction WFL. Elbow flexion WFL. Wrist flexion WFL. Functional opening and closing of hand WFL. Left Upper Extremity:? Shoulder Flexion WFL. Shoulder abduction WFL. Elbow flexion WFL. Wrist flexion WFL. Functional opening and closing of hand WFL. Right Lower Extremity: Hip flexion lacks the last 25% discomfort. Hip abduction WFL. Knee flexion 20 degrees to 90 degrees. Knee extension -20 degrees. Ankle dorsiflexion to neutral only. Ankle plantarflexion WFL. Left Lower Extremity: Hip flexion WFL. Hip abduction WFL. Knee flexion WFL. Ankle dorsiflexion to neutral only. Ankle plantarflexion WFL. Strength: Right Upper Extremity: Shoulder flexors 4-/5. Shoulder abductors 4-/5. Elbow flexors 4-/5. Elbow extensors 4-/5. Plastic Process Technician strong. Left Upper Extremity: Shoulder flexors 4-/5. Shoulder abductors 4-/5. Elbow flexors 4-/5. Elbow extensors 4-/5. Plastic Process Technician strong. Right Lower Extremity: Hip flexors 4-/5. Hip abductors 4-/5. Knee flexors 5-/5. Knee extensors 4-/5. Ankle dorsiflexors 3-/5. Ankle plantarflexors 4-/5. Left Lower Extremity: Hip flexors 3+/5. Hip abductors 3+/5. Knee flexors 3-/5. Knee extensors 3-/5. Ankle dorsiflexors 3-/5. Ankle plantarflexors 4-/5. Bed Mobility/Transfers: Moderate cueing provided for use of B hands as needed for support, movement sequence, Ad management, and and posture to reduce fall risk and minimize pain report. Supine to sit moderate assist Sit to stand minimal assist Stand to sit minimal assist Gait: Instructed patient with level surface ambulation of 60 feet requiring minimal assist with report of increased pain on the right low back area at 5/10. Unique decreased.? Moderate verbal cueing provided for walker management, directional change, and overall safety. Balance: Static Sitting: Normal Dynamic Sitting: Normal Static Standing: Fair Dynamic Standing: Fair Special Tests: Mobility Limitations Standardized Measure [facility] AM-PAC 6 clicks Basic Mobility Inpatient Short Form: Raw Score: 18? CMS Score: 47% deficit? ? ? 4-Stage Balance test: Unable to maintain feet together, semi-tandem, full tandem, and one-legged stance for 10 seconds. Informed Consent/Education:? Patient was instructed in purpose of PT consult and plan of care. Agreeable to proceed with established PT POC to achieve personal goals. ASSESSMENT: R low back pain has comparatively increased per patient which may have been due to repeated impact to back with repeated falls. Will defer to hospitalist for need of further testing to probably rule out compression fracture. Patient presents with clinical signs and symptoms consistent with current/admitting diagnoses that have resulted to mobility limitations, gait instability, generalized weakness, and overall ADL decline as demonstrated by the following impairment level findings: 1.? Impaired standing balance 2.? Impaired activity tolerance 3.?Acute pain in R low back (acute) Impairments are contributing to the following functional limitations: 1.? Difficulty with ambulation without assistive device and physical assistance 2.? Increased completion time for mobility ADL performance 3.? Increased risk for falls 4.? Difficulty with managing steps alone safely Patient is assessed as a 80113 moderate complexity based on the following: History: 78-year-old male with past medical history as indicated above Examination: Demonstrable impairment in strength, balance, and mobility level with underlying impairments and functional limitations as exhibited above as well as deficit score of 47% utilizing the [facility] Mobility Inpatient Short Form Presentation: Evolving Decision Makin moderate complexity Goals: Goals X1 week 1. Supine-Sit independent 2. Sit-Supine independent 3. Sit-Stand independent 4. Stand-Sit independent 5. Bed-Chair independent 6. Chair-Bed independent 7. Independent gait on level surface with use of FWW for at least 300 feet without report of pain nor dyspnea 8. Independent stair negotiation while holding onto bilateral rails for at least 10 steps without report of pain nor dyspnea 9. Independent with home exercise program 10. Good static and dynamic standing balance/tolerance Plan of Care/Treatment Plan: Plan of Care/Treatment Plan: 1-2x/day, 7 days/week x 1 week. Plan of care has been reviewed with the [facility] providing the service under Physical Therapy direction. Initiate Physical Therapy intervention for pain management as needed, strengthening, bed mobility, transfers, gait, stairs, balance training, and use of assistive device. DISCHARGE RECOMMENDATIONS: [] ? Home with no services [] [X] ? Home with services. Patient will benefit from home health PT services in order to progress mobility level using least restrictive assistive ambulatory device, assess home safety, identify additional equipment needs, and establish a functional maintenance program that will increase ability of patient to remain at home. [] ? Home with outpatient PT [] [] ? SNF for continued rehabilitation [] [] ? [facility] [] [] ? SNF versus LTC based on ability to participate and progress [] TREATMENT CODE/TIME: 55302 x 25 minutes for 1 unit beginning at 10:46 AM. Thank you for the opportunity to participate in the care of this patient. Nita Denis PT, DPT, CLT [facility] [place], [place]
[2023-11-04] MEDS: POTASSIUM CHLORIDE 20 MEQ/100 ML BAG 50 MEQ IVPB (11:00)
[2023-11-04] MEDS: Acetaminophen 325 MG TAB PO (11:23)
[2023-11-04] MEDS: Apixaban 5 MG TAB PO ×2 (11:23→20:01)
[2023-11-04] MEDS: Carvedilol 3.125 MG TAB PO ×2 (11:23→20:01)
[2023-11-04] MEDS: Insulin Aspart 300 UNITS/3 ML PEN SC ×3 (12:22→22:08)
[2023-11-04] MEDS: Lidocaine 5% Patch 1 PATCH TP (12:25)
[2023-11-04] MEDS: Normal Saline Flush 10 ML SYR IVP ×3 (13:30→22:01)
--- NOTE | 2023-11-04 13:44 | PHA.REVIEW2 ---
Pharmacy Admission Review Admission Clinical Review Admission Pharmacy Review: (Updated 11/04/23 @ 04:31 by Genia Mari MD) Pre-syncope (Acute) Acute kidney injury (Acute) Frequent falls (Acute) Orthostatic hypotension (Acute) Lactic acid acidosis (Acute) UTI (urinary tract infection) (Acute) RODOLFO (acute kidney injury) (Acute) Multiple falls (Acute) Penicillins Allergy (Mild, Unverified 11/03/23 21:38) Itching morphine Adverse Reaction (Severe, Unverified 11/03/23 21:38) vomiting mussels Adverse Reaction (Severe, Unverified 11/03/23 21:38) vomiting Resuscitation Status Full Code Height 5 ft 7 in Weight 102.739 kg Comments Comments/Follow Ups: Per morning meeting patient was complaining of back pain, lidocaine patch order was added. Pharmacy Admission Review Renal Dosing Renal Dosing: BUN 15 mg/dL (7-18) 11/04/23 07:15 Creatinine 1.3 mg/dL (0.70-1.30) 11/04/23 07:15 Medications needing adjustments: Reviewed (CrCl 55.22 mL/min) Anticoagulation Anticoagulation: Hgb 13.9 g/dL (13.5-17.5) 11/04/23 07:15 Hct 39.5 % (40.0-50.0) L 11/04/23 07:15 Plt Count 80 10^3/uL (130-400) L 11/04/23 07:15 INR 1.2 (0.9-1.1) H 11/04/23 07:15 Creatinine 1.3 mg/dL (0.70-1.30) 11/04/23 07:15 DVT Prophylaxis: Reviewed Medications: Apixaban (5mg BID) Relevant Labs Relevant Labs: Sodium 141 mmol/L (136-145) 11/04/23 07:15 Potassium 2.9 mmol/L (3.5-5.1) L* 11/04/23 07:15 Chloride 105 mmol/L (98-107) 11/04/23 07:15 Magnesium 2.0 mg/dL (1.8-2.4) 11/04/23 07:15 Electrolytes, C-Reactive P, ESR: Reviewed (K 2.9 - repleting) DM Control DM Control: Glucose 198 mg/dL (74-106) H 11/04/23 07:15 Finger Stick Blood Glucose 287 1222 Finger Stick Blood Glucose 287 1148 Finger Stick Blood Glucose 287 1148 DM Control: Reviewed Insulin Dosing, Diabetic Medication: Has order for empagliflozin (home med) and SS insulin. Cardiac Review Cardiac Review: Blood Pressure 165/70 1158 Blood Pressure 132/68 0801 Blood Pressure 198/68 0702 Blood Pressure 170/69 0647 Blood Pressure 186/68 0633 Blood Pressure 180/81 0616 Blood Pressure 168/77 0601 Blood Pressure 169/100 0402 Troponin I 74 ng/L (<or=60) H* 11/04/23 08:17 NT-Pro-B Natriuret Pep 210 pg/mL (<300) 11/03/23 21:49 BP, HR, EF%: Reviewed (Troponin slightly elevated at 74 ng/L. BP 165/70 and HR WNL) QTc Review QTc: Reviewed (463 11/03/23) IV to PO Switch IV Medications: Reviewed Home Meds Home Med List reviewed: Intervened Relevent Home Meds Not ordered & why?: Vitamin D3 50,000 units once weekly order is pending, waiting on nursing to ask patient what day during the week they take it. Current Meds Current Medication Order Review: Reviewed Pharmacy Antibiotic Review Relevant Labs: Relevant Labs 11/04/23 08:17 Procalcitonin 0.1 Pharmacy Antibiotic Activity: C/S review and Reviewed, no change Comments: Current regimen ceftriaxone 1g q24h. Urine cultures pending. Had a temperature of 37.6 at 0801 today. WBC down from 11.38 to 10.33. Comments Comments/Follow Ups: Per morning meeting patient was complaining of back pain, lidocaine patch order was added.
[2023-11-04] MEDS: Acetaminophen 500 MG TAB PO ×2 (15:56→20:02)
--- NOTE | 2023-11-04 16:22 | PT.INTREAT ---
Date of service: 11/04/23 PT Notes Visit Reasons: Multiple Falls,UTI,RODOLFO,CAF with Controlled Rate Inpatient Physical Therapy Treatment Note [facility] Date: 11/04/23 PRECAUTIONS: Fall, standard, activity as tolerated. Ostomy in place. SUBJECTIVE: Patient reports feeling pretty good. OBJECTIVE: sitting up in bedside chair, agreeable to therapy? PAIN: none reported at start of session, reports pain in low back after ambulation VITALS: monitored by nursing staff ? ? BED MOBILITY/TRANSFERS? Rolling L/R: not assessed Supine-sit: not assessed ? Sit-supine: not assessed ? Sit-stand: SBA ? Stand-sit: SBA ? Bed-Chair: CGA ? Chair-bed: CGA ? Therapeutic Exercises ([id number]): Direct one-on-one instruction in therapeutic exercises to develop strength, endurance, range of motion and flexibility. Ambulation ? Assistive Device: FWW ? Weight bearing: full Assist: CGA ? Distance:? 200 feet ? Deviation: head forward posture, rounded shoulders. Even step length, adequate step height. Patient becomes mildly short of breath, recovers quickly. ? Provided skilled instruction in proper exercise performance Provided skilled manual cues to facilitate proper muscle recruitment and/or form. ASSESSMENT:? Patient tolerates therapy well, becomes mildly short of breath with exertion however recovers within 2 minutes of returning to his room PLAN: Continue global strengthening per plan of care until patient is medically cleared for discharge. TREATMENT CODE/TIME: 23 minutes beginning at 15:53
--- NOTE | 2023-11-04 16:57 | CHAPLAIN ---
Merrill was sitting up in the bed when I visited. I told him that I had just visited with his (who is also admitted and in another room) and she said she would be over to visit him soon. He was glad to hear that. When I asked if I could get him anything, he said a new arm. His nurse said she was working on getting his pain controlled. I will continue to visit.
--- NOTE | 2023-11-04 17:15 | RT.EKG_ITS ---
APPROVED REPORT Exam: Resting ECG Reason for Exam: V tach Patient Location: I HR:59 bpm ECG Measurements Heart Rate [address] 314 P -32 QRSd 112 QRS -17 QT 409 T 127 QTc 403 Conclusion Sinus bradycardia...rate< 60 Atrial premature complex...SV complex w/ short R-R interval Prolonged CT interval...CT >220, V-rate 50- 90 Incomplete left bundle branch block...QRSd>110mS, terminal axis(-90,-1) Anteroseptal infarct, old...Q >40mS, V1-V2 ST depr, consider ischemia, anterolateral lds...ST <-0.10mV, I aVL V2-V6 I have reviewed and interpreted ECG and agree with software generated interpretation.
[2023-11-04 18:41] LABS: Anion Gap 7.9 mmol/L (3-11); BUN 14 mg/dL (7-18); CO2 27.1 mmol/L (21.0-32.0); CREATININE 1.4 mg/dL (0.70-1.30); Calcium 9.6 mg/dL (8.5-10.1); Chloride 104 mmol/L (98-107); Estimated GFR 52.09 (mL/min/1.73m2); Glucose 198 mg/dL (74-106); Magnesium 2.1 mg/dL (1.8-2.4); Potassium 3.6 mmol/L (3.5-5.1); Sodium 139 mmol/L (136-145)
[2023-11-04 18:44] LABS: Troponin I 72 ng/L (<or=60)
[2023-11-04] MEDS: cefTRIAXone 1 GM/50 ML BAG IVPB (22:01)
[2023-11-04] MEDS: Prazosin 5 MG CAP 10 MG PO (22:01)
[2023-11-05] MEDS: Patch Removal LIDOCAINE 1 EACH TP (00:09)
[2023-11-05 00:14] VITALS: BP 156/72; PULSE 63; RESP 16; TEMP 37.2; O2SAT 93
[2023-11-05 02:50] VITALS: BP 146/63; PULSE 65; RESP 16; TEMP 36.8; O2SAT 93
[2023-11-05] MEDS: Levothyroxine 100 MCG TAB PO (06:04)
[2023-11-05 06:53] LABS: Anion Gap 10.2 mmol/L (3-11); BUN 18 mg/dL (7-18); CO2 21.8 mmol/L (21.0-32.0); CREATININE 1.2 mg/dL (0.70-1.30); Chloride 105 mmol/L (98-107); Estimated GFR 62.67 (mL/min/1.73m2); Glucose 203 mg/dL (74-106); Potassium 3.8 mmol/L (3.5-5.1); Sodium 137 mmol/L (136-145)
[2023-11-05 07:39] LABS: Abs Immature Grans 0.01 10^3/uL (0.0-0.06); Absolute Basophil Count 0.03 10^3/uL (0.0-0.2); Absolute Eosinophil Count 0.24 10^3/uL (0.0-0.7); Absolute Lymphocyte Count 0.67 10^3/uL (1.2-3.4); Absolute Monocyte Count 0.49 10^3/uL (0.1-0.8); Absolute Neutrophil Count 4.26 10^3/uL (1.2-6.7); Basophils % 0.5; Eosinophils % 4.2; HCT 38.1 % (40.0-50.0); HGB 13.1 g/dL (13.5-17.5); Immature Grans % 0.2; Lymphocytes % 11.8; MCH 29.9 pg (27.0-33.0); MCHC 34.4 % (32.0-36.0); MCV 87 fL (80-95); MPV 10.7 fL (8.0-11.0); Monocytes % 8.6; Neutrophils % 74.7; RBC 4.38 10^6/uL (4.36-5.78); RDW 15.1 % (11.8-14.1); RDW-SD 47.9 fL
[2023-11-05] MEDS: Apixaban 5 MG TAB PO (07:53)
[2023-11-05] MEDS: Acetaminophen 500 MG TAB PO ×2 (07:54→12:37)
[2023-11-05] MEDS: Ferrous Sulfate 325 MG TAB PO (07:54)
[2023-11-05] MEDS: Rifaximin 550 MG TAB PO (07:54)
[2023-11-05] MEDS: Valsartan 40 MG TAB PO (07:54)
[2023-11-05] MEDS: Spironolactone 25 MG TAB PO (07:54)
[2023-11-05] MEDS: Carvedilol 3.125 MG TAB PO (07:54)
[2023-11-05] MEDS: Venlafaxine 150 MG CAPCR PO (07:54)
[2023-11-05] MEDS: Pantoprazole 40 MG TABCR PO (07:54)
[2023-11-05] MEDS: Tamsulosin 0.4 MG CAPCR PO (07:54)
[2023-11-05] MEDS: Pregabalin 50 MG CAP PO (07:54)
[2023-11-05] MEDS: Empaglifozin 25 MG TAB PO (07:54)
[2023-11-05] MEDS: Dicyclomine 10 MG CAP PO (07:54)
[2023-11-05 07:55] LABS: Diff Comment Diff Reviewed; Platelet Count 62 10^3/uL (130-400); RBC Morphology Normal
[2023-11-05] MEDS: Normal Saline Flush 10 ML SYR IVP (07:55)
[2023-11-05] MEDS: Insulin Aspart 300 UNITS/3 ML PEN SC ×2 (07:55→12:37)
[2023-11-05 07:59] VITALS: BP 145/66; PULSE 66; RESP 17; TEMP 36.6; O2SAT 90
[2023-11-05 11:54] VITALS: BP 113/63; PULSE 57; RESP 18; TEMP 36.7; O2SAT 90
--- NOTE | 2023-11-05 11:59 | PT.INNT ---
Date of service: 11/05/23 Time of Service: 11:55 PT Notes Visit Reasons: Multiple Falls,UTI,RODOLFO,CAF with Controlled Rate Patient found sleeping, lunch tray in front of him untouched. Wakes easily to verbal stimuli, however is unable to engage, unable to speak a complete sentence before falling back asleep. States I don't know, I'm just so tired. This was not how this clinician found this patient yesterday. Charge nurse notified.
--- NOTE | 2023-11-05 12:07 | DSE_ITS ---
Date of service: 11/05/23 Time of Service: 12:07 DS: Diagnosis Discharge Diagnosis (1) Multiple falls: Status: Acute (2) UTI (urinary tract infection): Status: Acute (3) RODOLFO (acute kidney injury): Status: Acute (4) Lactic acid acidosis: Status: Acute (5) Type 2 diabetes mellitus: Status: Chronic (6) Chronic atrial fibrillation: Status: Chronic (7) Cirrhosis: (8) ANETTE (obstructive sleep apnea): Status: Chronic Discharge Plan Disposition Patient Disposition: Home W/Home Health Services Condition: Improving Discharge Details Reason For Visit: Multiple Falls,UTI,RODOLFO,CAF with Controlled Rate Admit Date/Time: 11/04/23 04:10 Admit Provider: Phoenix Jim Attending Provider: Phoenix Jim Primary Care Provider: Maryann Whitt Hospital Course Hospital Course: This is a 78-year-old male patient who lives with his who is frequently hospitalized with GI bleed and anemia who is presently hospitalized at this institution and his son who is 65 being on his phone all night with his friends with no specific disability but sounds like he has not lived outside the house as an adult. He presents with frequent falls falling 4 times daily. He denies any chest pain or shortness of breath but does have bruising on his back he is on Eliquis for chronic atrial fibrillation. He is not having focal neurological complaints but generally feels like his legs are getting weak. He does walk with a walker and does not fall when he uses his assist device. In the ED he has pain was 5 out of 10 over his shoulder otherwise he had no focal discomfort other than overall body aches. He is overweight. In the ED he was orthostatic. He also was incontinent of urine denies any dysuria and had a positive urine for UTI. He was initiated on Rocephin in the ED. He also appears to have acute kidney injury with elevation of his creatinine from his baseline and was started on IV fluids. Multiple imaging with CT revealed no acute fractures or injury. On med/surg treatment continued with IV fluids and antibiotics. Pain management for left shoulder pain. kidney function improved with hydration. Hemodynamically stable. safely reambulated with PT and deemed safe for discharge home with home health services. He will complete 5 more days cefpodo juan miguel to complete treatment for UTI. discharge by private vehicle to home discharge discussed with DR Stranathan Home Meds and New Rx's Prescriptions: New lidocaine 5 % Adhesive Patch,Medicated 1 patch topical Q24H Qty: 7 0RF cefpodoxime 200 mg tablet 200 mg PO BID Qty: 9 0RF Rx Instructions: must administer with a meal/food, start 1/10 evening dose Continued venlafaxine 150 mg Capsule,Extended Release 24hr 150 mg PO DAILY spironolactone 25 mg Tablet 25 mg PO QAM prazosin 5 mg Capsule 10 mg PO QHS pantoprazole 40 mg Tablet,Delayed Release (Dr/Ec) 40 mg PO DAILY metformin 1,000 mg Tablet 1,000 mg PO BID valsartan 40 mg Tablet 40 mg PO BID pregabalin 50 mg Capsule 50 mg PO BID Eliquis 5 mg Tablet 5 mg PO BID Patient Comments: not taking nitroglycerin 0.4 mg Tablet, Sublingual 0.4 mg sublingual Q5 MIN PRN X3 PRNQty: 30 0RF ergocalciferol (vitamin D2) 1,250 mcg (50,000 unit) Capsule 1,250 mcg PO QWEEK Patient Comments: not taking miconazole nitrate 2 % Powder 1 applic TOPICAL BID PRN carvedilol 3.125 mg tablet 3.125 mg PO BID Qty: 0 0RF Patient Comments: TAKE 1 TABLET (3.125MG) BY MOUTH TWICE DAILY Rx Instructions: with meals acetaminophen [Tylenol] 325 mg Capsule 650 mg PO Q8H MDD 3000 PRNQty: 0 0RF rifaximin 550 mg Tablet 550 mg PO BID tamsulosin 0.4 mg Capsule 0.4 mg PO DAILY ferrous sulfate 325 mg (65 mg iron) Tablet 325 mg PO DAILY empagliflozin 25 mg Tablet 25 mg PO DAILY furosemide [Lasix] 20 mg tablet 20 mg PO QAM levothyroxine 200 mcg Tablet 100 mcg PO QAM Qty: 0 0RF dicyclomine 10 mg capsule 10 mg PO BID Qty: 20 0RF Discharge Instructions Instructions: Acute Kidney Injury ([place]), Urinary Tract Infection in Men (DC), Fall Prevention ([place]) Additional Instructions: Finish antibiotics as prescribed even if you feel better Drink 6 to 8 glasses of water daily to stay well-hydrated Use your walker at all times for gait safety and stability Stand Alone Forms: Nursing Discharge Form Referrals: Maryann Whitt [Primary Care Provider] - (Please call and make a follow up appo intment for 1-2 weeks) Activity:: Activity as Tolerated Equipment/Supplies:: No Equipment Needed Diet:: As Tolerated Discharge Orders Discharge Orders: Discharge Order (Routine); Ordered 11/05/23 Ordered By: Bella Santo DS: Summary Time Spent with Patient providing and/or coordinating discharge services: Greater than 30 minutes Status at Discharge Functional status at discharge: uses cane/walker Overall status at discharge: patient is progressing back to baseline Mental Status: mental status grossly normal Speech and Movement: speech and movement normal Mood: congruent mood Affect: normal affect Quality:SDOH Health Related Social Needs: Health related social needs inadequate housing, risk o f homeless, transpo insecurity Exam Const General: comfortable, no acute distress and ill appearing chronically Nutritional Appearance: obese Orientation: alert, awake and oriented x3 (poor historian) HENMT Head: normal to inspection, normocephalic and atraumatic Mouth: oral mucosae normal Resp Effort & Inspection: normal respiratory effort Cardio Rate: regular rate GI Inspection: normal to inspection and obesity Palpation: soft and nontender Skin General skin exam: no rashes or lesions noted Neuro General: patient alert, patient awake, patient oriented x3 and moves all extremities Psych Mental Status: mental status grossly normal Speech and Movement: speech and movement normal Mood: congruent mood Affect: normal affect DS: Data Vitals/I&O Vitals and I&O: Vital Signs Temperature 36.7 C 11/05/23 11:54 Temperature Source Tympanic 11/05/23 11:54 Pulse 57 L 11/05/23 11:54 Pulse Rhythm Irregular 11/05/23 07:45 Pulse 76 11/04/23 07:02 Respiratory Rate 18 11/05/23 11:54 Respiratory Effort Normal 11/05/23 07:45 Respiratory Depth Normal 11/05/23 07:45 Respiratory Pattern Normal 11/05/23 07:45 Blood Pressure 113/63 11/05/23 11:54 Blood Pressure Mean 104 11/04/23 07:02 Blood Pressure Position Supine 11/03/23 21:35 Pulse Oximetry 90 L 11/05/23 11:54 Oxygen Delivery Method Room Air 11/05/23 11:54 Oxygen Flow Rate 0 11/05/23 11:54 Fraction of Inspired Oxygen (FIO2) 24 11/04/23 23:06 Pain Level 0 11/05/23 11:54 Comment pt refuses CPAP at this time. 11/05/23 00:14 Comment supine 11/04/23 02:17 Intake & Output 11/04/23 11/05/23 11/05/23 23:59 11:59 23:59 Intake Total 1390 / 2440 Output Total 1725 / 2300 200 / 200 Balance -335 / 140 -190 / -190 Intake: IV 1150 / 2200 Oral 240 / 240 Output: Urine 1725 / 2300 200 / 200 Other: Urine Color Light Mady Light Mady Urine Appearance Cloudy Cloudy Urine Odor Strong Voiding Methods Urinal Data Completed and Pending Labs on day of discharge: Labs from last 24 hours 11/05/23 11/05/23 11/04/23 07:32 06:15 18:05 WBC 5.70 Cancelled RBC 4.38 Cancelled Hgb 13.1 L Cancelled Hct 38.1 L Cancelled MCV 87 Cancelled MCH 29.9 Cancelled MCHC 34.4 Cancelled RDW 15.1 H Cancelled Plt Count 62 L Cancelled MPV 10.7 Cancelled Immature Gran % 0.2 Cancelled Neutrophils % 74.7 Cancelled Band Neutrophils % Cancelled Lymphocytes % 11.8 Cancelled Atypical Lymphs % Cancelled Monocytes % 8.6 Cancelled Eosinophils % 4.2 Cancelled Basophils % 0.5 Cancelled Metamyelocytes % Cancelled Myelocytes % Cancelled Promyelocytes % Cancelled Other Cells % Cancelled Nucleated RBC % 0.0 Cancelled Absolute Neutrophils 4.26 Cancelled Absolute Lymphocytes 0.67 L Cancelled Absolute Monocytes 0.49 Cancelled Absolute Eosinophils 0.24 Cancelled Absolute Basophils 0.03 Cancelled RBC Morphology Normal Cancelled Polychromasia Cancelled Hypochromasia Cancelled Poikilocytosis Cancelled Basophilic Stippling Cancelled Anisocytosis Cancelled Microcytosis Cancelled Macrocytosis Cancelled Spherocytes Cancelled Tear Drop Cells Cancelled Ovalocytes Cancelled Stomatocytes Cancelled Mckeon-Bonifay Bodies Cancelled Gaudencio Cells/Echinocytes Cancelled Acanthocytes (Spur) Cancelled Schistocytes Cancelled Sodium 137 139 Potassium 3.8 3.6 Chloride 105 104 Carbon Dioxide 21.8 27.1 Anion Gap 10.2 7.9 BUN 18 14 Creatinine 1.2 1.4 H Est GFR (CKD-EPI 2020) 62.67 52.09 Glucose 203 H 198 H Calcium 9.0 9.6 Magnesium 2.0 2.1 Troponin I 72 H* Preliminary micro results at discharge 11/03/23 21:49 Urine Culture - Preliminary Urine - Reflex from Ua Gram Negative Ruslan PFSH All Active Problems (Updated 11/04/23 @ 04:31 by Genia Mari MD) Pre-syncope (Acute) Acute kidney injury (Acute) Frequent falls (Acute) Orthostatic hypotension (Acute) Lactic acid acidosis (Acute) UTI (urinary tract infection) (Acute) Chronic atrial fibrillation (Chronic) RODOLFO (acute kidney injury) (Acute) Type 2 diabetes mellitus (Chronic) Hypokalemia (Acute) Bradycardia (Acute) Multiple falls (Acute) Acute metabolic encephalopathy (Acute) Medication monitoring encounter (Acute) ANETTE (obstructive sleep apnea) (Chronic) Chest pain (Acute) CHF exacerbation (Acute) CHF (congestive heart failure) (Chronic) Medical History (Updated 11/04/23 @ 04:31 by Genia Mari MD) Creatinine elevation Acute UTI Anticoagulated COVID Chronic low back pain Recurrent intestinal obstruction History of colon cancer Palliative care encounter Followed by [facility] Chronic anticoagulation Portal hypertension Cirrhosis TIPs placed (?when, 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 [place] . Time Spent with Patient Time Spent with Patient: 45-69 minutes Time was spent: preparing to see the patient(eg.review tests), obtaining and/or reviewing separately otained hiistory, ordering medications,tests, procedures, referring, communicating with other health healthcare social worker, indepentently interpreting results, counseling the patient and care coordination
--- NOTE | 2023-11-05 12:14 | PDOC.HHF2F_ITS ---
Home Health Referral Home Health Orders Clinical synopsis of why skilled professionals are needed: Frail male with multiple chronic medical comorbidities increasing risk for decompensation Medical diagnosis necessitation home health referral: Acute kidney injury, urinary tract infection, gait instability, CHF, diabetes mellitus type 2 Registered Nurse: Check all that apply Instruct on new or changed medication(s)/assess compliance: Ordered Assess for exacerbation of medical condition, instruct patient/caregivers on signs and symptoms to report for early detection: Ordered Physical Therapist: Check all that apply Increase strength & endurance for safe mobility at home: Ordered To design/establish home maintenance program: Ordered Fall reduction therapy program for patient with history of frequent falls: Ordered Home safety evaluation and teaching/gait training including stair management (if applicable): Ordered Occupational Therapist: Evaluate and treat for patient unable to perform ADL/IADL/self-care: Ordered Upper extremity strengthening, range and motion: Ordered Pickle Water Pump Operator: Assist with community resources: Ordered Assist with marine service station attendant care planning: Ordered Home Bound Status Requires the aid of supportive device (check all that apply): Walker Describe why leaving home would require a considerable and taxing effort: Requires frequent rest periods and Safety Concerns: describe (Multiple falls) Encounter Date and Reason: I certify that a FTF encounter for this patient was performed on November 05, 2023 and that such encounter was related to the primary reason the patient requires home health services. The encounter was conducted in the following manner: * By me as the certifying physician, MINE SAFETY ENGINEER, PA or * By an inpatient physician, MINE SAFETY ENGINEER or PA during an inpatient stay who communicated findings to me, Certification And Authentication I certify that I composed the above information based on my clinical judgment relating to this patient's medical condition and, if applicable, clinical findings communicated to me by the NPP or inpatient physician who performed the FTF encounter. Name of Provider that will be monitoring home health services: Maryann Whitt
[2023-11-05] MEDS: Lidocaine 5% Patch 1 PATCH TP (12:38)
--- NOTE | 2023-11-05 13:32 | PT.INTREAT ---
Date of service: 11/05/23 Time of Service: 13:06 PT Notes Visit Reasons: Multiple Falls,UTI,RODOLFO,CAF with Controlled Rate Inpatient Physical Therapy Treatment Note [facility] Date: 11/05/23 PRECAUTIONS: Fall. Standard. Activity as tolerated. Ostomy in place. SUBJECTIVE: Patient reports feeling better, states that he believes he is going home today. Appears enthusiastic at the thought, despite still reporting immense fatigue. OBJECTIVE: Sitting up in bedside chair with footrest down, feet in dependent position. Agreeable to therapy. ? PAIN: Reports pain in left cubital fossa with ambulation VITALS: monitored by nursing staff ? BED MOBILITY/TRANSFERS? Rolling L/R: independent Supine-sit: independent ? Sit-supine: independent ? Sit-stand: SBA ? Stand-sit: SBA ? Bed-Chair: SBA ? Chair-bed: SBA ? Therapeutic Exercises ([id number]): Direct one-on-one instruction in therapeutic exercises to develop strength, endurance, range of motion and flexibility. Ambulation ? Assistive Device: FWW ? Weight bearing: full Assist: SBA ? Distance:? 300 feet ? Deviation: patient reports that using the walker is causing pain in the left cubital fossa. Also reports that he is aware that he should keep the walker closer to his body than he does, but that the correct position puts too much strain on his back. Unique reduced. Step height reduced. Stride length reduced. No LOB, no SOB. ? Provided skilled instruction in proper exercise performance Provided skilled manual cues to facilitate proper muscle recruitment and/or form. ASSESSMENT:? Patient tolerates therapy well, returns to bedside chair at close of session. PLAN: Continue global strengthening per plan of care until patient is medically cleared for discharge. TREATMENT CODE/TIME: 21 minutes beginning at 13:06
--- NOTE | 2023-11-05 14:23 | OT.INNT ---
Occupational Therapy Notes 11/05/23 OT consult received and pts chart was reviewed. OT did attempt to consult with pt and he was not able to stay awake during consult to answer questions. OT discussed this with RN and plan is to assess pt tomorrow. Verna Melendez, OTR/L
--- NOTE | 2023-11-05 17:01 | PDOC.CMDIS ---
Date of service: 11/05/23 Time of Service: 17:01 LACE Index Scoring Tool Questions: Length of Stay (in days): 1 Was the patient admitted via the E.D.?: Yes Comorbidities: Diabetes w/o Complication, Congestive Heart Failure, Any Tumor and Dementia (mild) E.D. Visits: 6 Answers: Total Score: 13 Risk of Readmission: High Risk Care Management Discharge Plan Reason for Hospitalization: Uti Discharge Plan: Merrill will be discharged home with new home health services for PT, OT, SPACE SYSTEMS OPERATIONS MANAGER and nursing. He will follow up with his community providers and plan of care and transport via RCT coordinated by CM. Patient/Family Education Needs: Review of discharge instructions, activity, limitations, follow up plan, discuss Ask Me Three SDOH Health Related Social Needs: Health related social needs inadequate housing, risk of homeless, transpo insecurity Health related social needs: inadequate housing(Z59.1), housing instability, housed, with risk of homelessness(Z59.811) and transportation insecurity(Z59.82)
== END 2023-11-05 16:24 | disposition home health service (06) ==
LOC: ER 11-04 07:06 → MS 11-04 09:51
PROVIDERS: Internal Medicine; Physician Assistant; Admitting Provider Family Medicine; Emergency Provider Student in an Organized Health Care Education/Training Program; PCP Nurse Practitioner Adult Health; Visit Provider Family Medicine
DX: I95.1 Orthostatic hypotension; N30.00 Acute cystitis without hematuria; R29.6 Repeated falls; E87.20 Acidosis, unspecified; E11.22 Type 2 diabetes mellitus with diabetic chronic kidney disease; I48.20 Chronic atrial fibrillation, unspecified; N18.2 Chronic kidney disease, stage 2 (mild); K70.30 Alcoholic cirrhosis of liver without ascites; G47.33 Obstructive sleep apnea (adult) (pediatric); R53.1 Weakness; R32 Unspecified urinary incontinence; I12.9 Hypertensive chronic kidney disease with stage 1 through stage 4 chronic kidney disease, or unspecified chronic kidney disease; Z79.84 Long term (current) use of oral hypoglycemic drugs; E66.01 Morbid (severe) obesity due to excess calories; Z93.3 Colostomy status; Z85.038 Personal history of other malignant neoplasm of large intestine; M25.512 Pain in left shoulder
CPT/HCPCS: 00123; 36410; 36415; 74177; 80048; 80053; 80076; 82550; 83690; 84145; 85027; 86850; 86900; 86901; 87077; 87637; 93005; 96361; 96365; 96366; 96372; 97110; 97162; 99285; 70450; 71260; 72125; 73030; 81003; 81015; 83605; 83735; 83880; 84439; 84443; 84484; 85025; 85610; 87086; 87186; 93010; 99223; 99239; J0696; J1815; J3480; J3490

== ENCOUNTER 2023-11-06 22:20 | Inpatient (IN) | payer OTHER, SELFPAY ==
[2023-11-06] VITALS (60 sets, daily range): BP systolic 106–136; BP diastolic 48–59; PULSE 65–94; RESP 13–19; TEMP 36.3; O2SAT 77–98
--- NOTE | 2023-11-06 22:30 | DI.CT_ITS ---
Exam(s) CT ABDOMEN PELVIS W EXAM: CT ABDOMEN PELVIS W CLINICAL HISTORY: abdominal pain, eval SBO TECHNIQUE: Imaging Protocol: Axial computed tomography images with coronal and sagittal reformatted images were created and reviewed CONTRAST MATERIAL: Intravenous: Omnipaque 350 Contrast volume:100 mL Oral: No COMPARISON: CT CT ABDOMEN PELVIS W from 03/08/[address] CHEST/ABD/PEL W from 06/16/[address] ABDOMEN PELVIS WO from 08/11/[address] ABDOMEN PELVIS W from 09/21/[address] ABDOMEN PELVIS WO from 09/22/[address] THORACIC LUMBAR SPINE REC from 11/03/[address] CHEST/ABD/PEL W from 11/03/2023 FINDINGS: ABDOMEN: Lung Bases: Normal where visualized. Liver: The liver has a nodular contour consistent with hepatic cirrhosis. There is a TIPS in place. There is a stable area of decreased attenuation in the posterior segment of the right lobe of the li judith. No other hepatic lesions are seen. This is nonspecific. Portal, Superior Mesenteric, and Splenic Veins: Unremarkable. Gallbladder and Biliary Tract: Gallstone is present. No biliary ductal dilatation is present. There is a calcifications seen in the head of the pancreas. This is unchanged compared to prior examinati ons. (Series 5, image 412). This may represent pancreatic parenchymal calcification versus choledoc holithiasis. Pancreas: Normal density, no abnormal calcifications or inflammatory process. Spleen: Splenomegaly. Adrenals: No masses seen. Kidneys: Normal size, contour and axis. No radiodense stones or obstructive uropathy. No masses seen. Abdominal Aorta: Abdominal portion non-dilated. Atherosclerosis. Bowel: There is a partial colectomy with a left lower quadrant colostomy in place. There is also a p artial right colectomy with an entero colonic anastomosis. The stomach is incompletely distended wong iting evaluation. No pneumatosis. There is no evidence of appendicitis. There are now dilated loop s of small bowel in the central pelvis. The have a clustered appearance with normal caliber bowel lo ops both proximally and distally. Peritoneal Cavity: No ascites, collection or mesenteric inflammatory response. No free air. Lymph Nodes: Within normal limits. Bones: Within normal limits for the patient's age. Soft Tissues: Unremarkable. PELVIS: Bladder: Symmetric distention, no gross wall thickening. Reproductive Organs: Mildly enlarged prostate gland. Lymph Nodes: Within normal limits. Bones: Within normal limits for the patient's age. IMPRESSION: 1. New dilated small bowel loops in the lower abdomen suspicious for small bowel obstruction. Its ap pearance raises a question of a closed loop obstruction. 2. Incidental findings in the abdomen and pelvis as described above. RADIATION DOSE DELIVERED: 1,154.87mGy.cm Total DLP DATA REPOSITORY: All CT scans at this facility are submitted to the National Radiology Data Registry (NRDR) Dose Index Registry (DIR) with the [employer] (ACR). RADIATION OPTIMIZATION: All CT scans at this facility use at least one of these dose optimization te chniques: automated exposure control; mA and/or kV adjustment per patient size (includes targeted exa ms where dose is matched to clinical indication); or iterative reconstruction.
--- NOTE | 2023-11-06 22:45 | W.ED.GENAD ---
HPI General Stated Complaint: Abd Prob ANNA: 3 Date/Time Provider Initiated Documentation: 11/06/23 22:21. Limitations to Documentation: other (Dementia). Information obtained by: patient and old records reviewed. HPI Narrative: 78-year-old gentleman with past medical history of frequent falls, diabetes, A-fib on Eliquis presents for evaluation of abdominal pain. Patient was recently hospitalized with frequent falls. Patient had a urinary tract infection and was treated. Patient returns to the emergency department today with abdominal pain. He reports that its sharp, severe. Not associated with nausea or vomiting. He states that he has not had any ostomy output. Currently his ostomy bag is empty and he is not able to tell me when he put a new back on. Related Data Home Medications Medication Instructions Recorded Confirmed apixaban 5 mg tablet (Eliquis) 5 mg PO BID 11/08/22 11/03/23 metformin 1,000 mg tablet 1,000 mg PO BID 11/08/22 11/03/23 pantoprazole 40 mg tablet,delayed 40 mg PO DAILY 11/08/22 11/03/23 release prazosin 5 mg capsule 10 mg PO QHS 11/08/22 11/03/23 pregabalin 50 mg capsule 50 mg PO BID 11/08/22 11/03/23 spironolactone 25 mg tablet 25 mg PO QAM 11/08/22 11/03/23 valsartan 40 mg tablet 40 mg PO BID 11/08/22 11/03/23 venlafaxine 150 mg 150 mg PO DAILY 11/08/22 11/03/23 capsule,extended release 24 hr tamsulosin 0.4 mg capsule 0.4 mg PO DAILY 11/29/22 11/03/23 nitroglycerin 0.4 mg sublingual 0.4 mg sublingual Q5 MIN PRN X3 02/10/23 11/03/23 tablet PRN #30 tabs ferrous sulfate 325 mg (65 mg 325 mg PO DAILY 03/08/23 11/03/23 iron) tablet empagliflozin 25 mg tablet 25 mg PO DAILY 04/09/23 11/03/23 furosemide 20 mg tablet (Lasix) 20 mg PO QAM 04/09/23 11/03/23 levothyroxine 200 mcg tablet 100 mcg (1/2 x 200 mcg) PO QAM #0 04/10/23 11/03/23 tabs ergocalciferol (vitamin D2) 1,250 1,250 mcg PO QWEEK 06/16/23 11/03/23 mcg (50,000 unit) capsule miconazole nitrate 2 % topical 1 applic topical BID PRN 06/16/23 11/03/23 powder acetaminophen 325 mg capsule 650 mg (2 x 325 mg) PO Q8H PRN #0 06/17/23 11/03/23 (Tylenol) caps carvedilol 3.125 mg tablet 3.125 mg PO BID #0 tabs 06/17/23 11/03/23 rifaximin 550 mg tablet 550 mg PO BID 07/07/23 11/03/23 dicyclomine 10 mg capsule 10 mg PO BID #20 caps 09/22/23 11/03/23 cefpodoxime 200 mg tablet 200 mg PO BID #9 tabs 11/05/23 lidocaine 5 % topical patch 1 patch topical Q24H #7 ea 11/05/23 Previous Rx's Medication Instructions Recorded nitroglycerin 0.4 mg sublingual 0.4 mg sublingual Q5 MIN PRN X3 02/10/23 tablet PRN #30 tabs levothyroxine 200 mcg tablet 100 mcg (1/2 x 200 mcg) PO QAM #0 04/10/23 tabs acetaminophen 325 mg capsule 650 mg (2 x 325 mg) PO Q8H PRN #0 06/17/23 (Tylenol) caps carvedilol 3.125 mg tablet 3.125 mg PO BID #0 tabs 06/17/23 dicyclomine 10 mg capsule 10 mg PO BID #20 caps 09/22/23 cefpodoxime 200 mg tablet 200 mg PO BID #9 tabs 11/05/23 lidocaine 5 % topical patch 1 patch topical Q24H #7 ea 11/05/23 Allergies Allergy/AdvReac Type Severity Reaction Status Date / Time Penicillins Allergy Mild Itching Unverified 11/03/23 21:38 morphine AdvReac Severe vomiting Unverified 11/03/23 21:38 mussels AdvReac Severe vomiting Unverified 11/03/23 21:38 PFSH All Active Problems Pre-syncope (Acute) Acute kidney injury (Acute) Frequent falls (Acute) Orthostatic hypotension (Acute) Lactic acid acidosis (Acute) UTI (urinary tract infection) (Acute) Chronic atrial fibrillation (Chronic) RODOLFO (acute kidney injury) (Acute) Type 2 diabetes mellitus (Chronic) Hypokalemia (Acute) Bradycardia (Acute) Multiple falls (Acute) Acute metabolic encephalopathy (Acute) Medication monitoring encounter (Acute) ANETTE (obstructive sleep apnea) (Chronic) Chest pain (Acute) CHF exacerbation (Acute) CHF (congestive heart failure) (Chronic) Medical History Creatinine elevation Acute UTI Anticoagulated COVID Chronic low back pain Recurrent intestinal obstruction History of colon cancer Palliative care encounter Followed by [facility] Chronic anticoagulation Portal hypertension Cirrhosis TIPs placed (?when, [facility]? 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 [place] . Exam Narrative Exam Narrative: Review of Systems: All systems reviewed & are unremarkable except as noted in HPI and below Well-developed, no acute distress NACT PERRL, normal conjunctiva RRR Unlabored respiratory effort + Distended abdomen with multiple surgical scars, firm to touch, not particularly tender, ostomy in the left lower quadrant with an empty bag in place Extremities w/o deformity, no cyanosis, no edema No rashes or lesions. no focal neurologic deficits Appropriate mood and affect Course Vital Signs Vital signs: Vital Signs Temperature 36.3 C L 11/06/23 22:29 Pulse 94 H 11/06/23 22:29 Respiratory Rate 18 11/06/23 22:29 Blood Pressure 106/54 L 11/06/23 22:29 Pulse Oximetry 93 11/06/23 22:29 Temperature 36.3 C L 11/06/23 22:29 Temperature Source Skin 11/06/23 22:29 Pulse 94 H 11/06/23 22:29 Respiratory Rate 18 11/06/23 22:29 Respiratory Effort Normal 11/06/23 22:35 Blood Pressure 106/54 L 11/06/23 22:29 Blood Pressure Position Standing 11/06/23 22:29 Pulse Oximetry 93 11/06/23 22:29 Oxygen Delivery Method Room Air 11/06/23 22:29 Oxygen Flow Rate 0 11/06/23 22:29 Medical Decision Making Emergent evaluation of abdominal pain. Patient reports that he is concerned for having a bowel blockage. He is definitely at high risk for a bowel obstruction. At this time his not having any ostomy output but, I do not know when he changed his bag. Patient was discharged from the hospital yesterday. He had lab work done yesterday. He should be on antibiotics for urinary tract infection. His blood pressure is noted to be slightly low. At the time of discharge it was not much higher than this. Plan for repeat lab work and CT imaging to evaluate for bowel obstruction. Lactic acid noted to be elevated. IV fluids ordered. Blood pressure improved. Final disposition pending lab work and CT imaging turned over to oncoming provider. Medical Records Medical records reviewed: Yes I reviewed the patient's medical records. Lab Data Lab results reviewed: Yes I reviewed the patient's lab results. Quality:[facility] Health Related Social Needs: Health related social needs inadequate housing, risk of homeless, transpo insecurity Sign Out Sign Out Data: Sign Out Comment: 78-year-old gentleman presents today with severe abdominal pain and decreased ostomy output. He is concerned that he has a bowel obstruction. He has not been having any vomiting. He was discharged yesterday from the hospital. His hospitalization was for fall and UTI. Discharged on antibiotics. Had lactic acidosis and RODOLFO for the hospitalization, resuscitated down to normal. Lactic acid elevated today. 1 L IV fluids given. Pending CT scan. Last updated by Yajaira Islas MD at 11/06/23 23:41 Discharge Plan Discharge Details Chief Complaint: Abd Prob Primary Care Provider: Maryann Whitt ED Provider: Yajaira Islas Home Meds and New Rx's Prescriptions: No Action venlafaxine 150 mg Capsule,Extended Release 24hr 150 mg PO DAILY spironolactone 25 mg Tablet 25 mg PO QAM prazosin 5 mg Capsule 10 mg PO QHS pantoprazole 40 mg Tablet,Delayed Release (Dr/Ec) 40 mg PO DAILY metformin 1,000 mg Tablet 1,000 mg PO BID valsartan 40 mg Tablet 40 mg PO BID pregabalin 50 mg Capsule 50 mg PO BID Eliquis 5 mg Tablet 5 mg PO BID Patient Comments: not taking nitroglycerin 0.4 mg Tablet, Sublingual 0.4 mg sublingual Q5 MIN PRN X3 PRNQty: 30 0RF ergocalciferol (vitamin D2) 1,250 mcg (50,000 unit) Capsule 1,250 mcg PO QWEEK Patient Comments: not taking miconazole nitrate 2 % Powder 1 applic TOPICAL BID PRN carvedilol 3.125 mg tablet 3.125 mg PO BID Qty: 0 0RF Patient Comments: TAKE 1 TABLET (3.125MG) BY MOUTH TWICE DAILY Rx Instructions: with meals acetaminophen [Tylenol] 325 mg Capsule 650 mg PO Q8H MDD 3000 PRNQty: 0 0RF rifaximin 550 mg Tablet 550 mg PO BID tamsulosin 0.4 mg Capsule 0.4 mg PO DAILY ferrous sulfate 325 mg (65 mg iron) Tablet 325 mg PO DAILY empagliflozin 25 mg Tablet 25 mg PO DAILY furosemide [Lasix] 20 mg tablet 20 mg PO QAM levothyroxine 200 mcg Tablet 100 mcg PO QAM Qty: 0 0RF dicyclomine 10 mg capsule 10 mg PO BID Qty: 20 0RF lidocaine 5 % Adhesive Patch,Medicated 1 patch topical Q24H Qty: 7 0RF cefpodoxime 200 mg tablet 200 mg PO BID Qty: 9 0RF Rx Instructions: must administer with a meal/food, start 1/10 evening dose
[2023-11-06 23:13] LABS: Lactate 2.6 mmol/L (0.6-1.4)
[2023-11-06 23:15] LABS: Abs Immature Grans 0.02 10^3/uL (0.0-0.06); Absolute Basophil Count 0.04 10^3/uL (0.0-0.2); Absolute Eosinophil Count 0.25 10^3/uL (0.0-0.7); Absolute Monocyte Count 0.67 10^3/uL (0.1-0.8); Absolute Neutrophil Count 3.45 10^3/uL (1.2-6.7); Basophils % 0.8; Eosinophils % 4.9; HCT 40.9 % (40.0-50.0); HGB 14.4 g/dL (13.5-17.5); Immature Grans % 0.4; Lymphocytes % 13.6; MCH 30.4 pg (27.0-33.0); MCHC 35.2 % (32.0-36.0); MCV 87 fL (80-95); MPV 10.7 fL (8.0-11.0); Monocytes % 13.1; Neutrophils % 67.2; RBC 4.73 10^6/uL (4.36-5.78); RDW 14.9 % (11.8-14.1); RDW-SD 47.4 fL; WBC 5.13 10^3/uL (4.4-10.8)
[2023-11-06 23:17] LABS: Platelet Count 96 10^3/uL (130-400)
[2023-11-06 23:24] LABS: Diff Comment PLT Morph Reviewed; RBC Morphology Normal
[2023-11-06] MEDS: Normal Saline 1,000 ML 1000 ML IV (23:28)
[2023-11-06 23:29] LABS: ALT 19 U/L (16-63); AST 38 U/L (15-37); Alkaline Phosphatase 121 U/L (46-116); Anion Gap 9.6 mmol/L (3-11); BUN 16 mg/dL (7-18); Bilirubin, Total 1.6 mg/dL (0.2-1.0); CO2 24.4 mmol/L (21.0-32.0); CREATININE 1.2 mg/dL (0.70-1.30); Calcium 9.4 mg/dL (8.5-10.1); Chloride 103 mmol/L (98-107); Estimated GFR 62.67 (mL/min/1.73m2); Glucose 328 mg/dL (74-106); Lipase 87 U/L (16-77); Magnesium 1.9 mg/dL (1.8-2.4); Potassium 3.8 mmol/L (3.5-5.1); Sodium 137 mmol/L (136-145)
[2023-11-06] MEDS: Omnipaque 350 MG/ML 100 ML BTL IJ (23:46)
[2023-11-06] MEDS: Normal Saline - Diluent 50 ML VIAL IJ (23:47)
[2023-11-06] MEDS: Normal Saline Flush 10 ML SYR IVP (23:47)
[2023-11-07] VITALS (134 sets, daily range): BP systolic 99–177; BP diastolic 46–99; PULSE 61–99; RESP 9–29; TEMP 36.3–37; O2SAT 87–98
--- NOTE | 2023-11-07 | RT.EKG_ITS ---
APPROVED REPORT Exam: Resting ECG Reason for Exam: chest pain Patient Location: E HR:71 bpm ECG Measurements Heart Rate 71 AXIS ND 264 P 0 QRSd 135 QRS -25 QT 450 T 64 QTc 495 Conclusion Sinus rhythm...normal P axis, V-rate 60- 99 Ventricular premature complex...V complex w/ short R-R interval Prolonged ND interval...ND >220, V-rate 50- 90 Left bundle branch block...QRSd>120, broad/notched R Physician: LBBB, negative for sgarbossa, unchanged from prior ekg
--- NOTE | 2023-11-07 00:15 | DI.RAD_ITS ---
Exam(s) XR ABDOMEN FLAT PLATE EXAM: 2D digital imaging was performed. CLINICAL HISTORY: obstruction, take 1 hr after contrast. COMPARISON: CR XR ABDOMEN FLAT PLATE from 08/11/2023 TECHNIQUE: Supine views of the abdomen performed. Two images were obtained 1 hour after Gastrografi n was administered. FINDINGS: BOWEL GAS PATTERN: The oral contrast is seen predominantly in the stomach, duodenum and proximal smal l bowel. CALCIFICATIONS: No radiopaque calcifications. OSSEOUS STRUCTURES: Age-appropriate degenerative changes are seen in the spine. OTHER FINDINGS: Iodinated contrast is seen in the collecting system and urinary bladder from the leandra ent's recent CT scan. There is a TIPS. The visualized lung bases are clear. IMPRESSION: 1. The oral contrast is seen in the stomach and proximal small bowel 1 hour after Gastrografin was ad ministered. 2. Residual contrast is seen in the renal collecting system and urinary bladder. DATA REPOSITORY: RADIATION DOSE DELIVERED:
--- NOTE | 2023-11-07 00:30 | DI.VRAD_ITS ---
PROCEDURE INFORMATION: Exam: CT Abdomen And Pelvis With Contrast Exam date and time: 11/06/2023 11:35 PM Age: 78 years old Clinical indication: Abdominal pain; Additional info: Abd pain, eval sbo TECHNIQUE: Imaging protocol: Computed tomography of the abdomen and pelvis with contrast. Total images: 1319 Contrast material: OMNI 350; Contrast volume: 100 ml; Contrast route: INTRAVENOUS (IV); COMPARISON: CT CHEST/ABD/PEL W 11/03/2023 11:00 PM FINDINGS: Lungs: Minimal dependent atelectasis at the lung bases. Liver: Diffuse hepatic steatosis. Nodular hepatic contour. Enlarged caudate and left hepatic lobes. No focal hepatic mass. Tips shunt in unchanged position and with patent flow. Gallbladder and bile ducts: No calcified stones, wall thickening or biliary dilatation. Pancreas: No mass or peripancreatic edema. Spleen: Stable splenomegaly. Adrenal glands: No adrenal nodule. Kidneys and ureters: Kidneys homogeneously enhance. No hydronephrosis. No renal or ureteral calculi. Stomach and bowel: Calcific density probable swallowed pill within stomach. No gastric or duodenal wall thickening. Partial right and distal colectomy. Left lower quadrant colostomy. Interval multiple fluid-filled dilated small bowel loops within the lower mid abdomen. There is the appearance of tethering of the loops to the anterior abdominal wall at the level of the umbilicus and more inferiorly just above bladder dome. Dilated loops include in an anastomotic site. No small bowel thickening. No pneumatosis. Small bowel patterson appear to be normally vascularized. Appendix: No evidence of appendicitis. Intraperitoneal space: No free air or free fluid. No significant mesenteric stranding. Vasculature: No portal vein thrombosis. Aortoiliac atherosclerotic disease without aneurysm. The SMV is patent. Mild stenosis celiac trunk origin and proximal SMA. No SMA filling defect. Lymph nodes: No significant adenopathy. Urinary bladder: No definite bladder wall thickening. Reproductive: Prostatic enlargement. Extraperitoneal space: Stable postsurgical change in the presacral space. Bones/joints: Severe disc space narrowing and spondylosis in the lower thoracic and lumbar spine. Soft tissues: Extra-abdominal soft tissues are unremarkable. IMPRESSION: 1. Small bowel obstruction. No secondary signs of ischemic bowel. Loops do have a somewhat clustered appearance and possibility of closed loop obstruction not completely excluded. 2. THIS REPORT CONTAINS FINDINGS THAT MAY BE CRITICAL TO PATIENT CARE. The findings were verbally communicated via telephone conference with Dr. Johns at 12:28 AM EST on 11/07/2023. The findings were acknowledged and understood. Dictated and Authenticated by: Lm Mathur MD. Ordering:DESIREE Altman MD
[2023-11-07] MEDS: Gastrografin 120 ML BTL PO (00:57)
[2023-11-07 01:05] LABS: Lactate 2.1 mmol/L (0.6-1.4)
[2023-11-07 01:08] LABS: Bilirubin Negative (Negative); Blood Large (Negative); Clarity Clear (Clear); Glucose >=1000 mg/dL (Negative); Ketones Negative (Negative); Leukocyte Esterase Small (Negative); Nitrite Negative (Negative); Specific Gravity <= 1.005 (1.005-1.025); Urobilinogen 0.2 mg/dL (Up to 0.2)
[2023-11-07 01:12] LABS: RBC 20-50 HPF (0-2); WBC 20-50 HPF (0-5)
[2023-11-07 01:13] LABS: Bacteria Few HPF (Negative); C & S Indicated? Yes; Casts Negative LPF (Negative); Crystals Negative HPF (Negative); Epithelial Cells Negative HPF (Negative); Mucus Negative (Negative)
[2023-11-07] MEDS: Ondansetron 4 MG/2 ML VIAL IVP (02:15)
[2023-11-07] MEDS: HYDROmorphone 2 MG/ML SYR 1 MG IVP (02:40)
--- NOTE | 2023-11-07 02:45 | DI.RAD_ITS ---
Exam(s) XR PORTABLE CHEST AP EXAM: XR PORTABLE CHEST AP CLINICAL HISTORY: post ng tube placement TECHNIQUE: 2D digital imaging was performed of the chest. One image was obtained. An AP view was ob tained. COMPARISON: CR,XR XR PORTABLE CHEST AP from 12/08/2022 CR XR CHEST 2V PA LATERAL from 07/07/2023 FINDINGS: MEDIASTINUM: Normal. HEART: Normal. PULMONARY VASCULATURE: Normal. LUNGS: Clear. PLEURAL SPACE: No pleural effusion or pneumothorax. BONE:Within normal limits for the patient's age. OTHER FINDINGS:There is a nasogastric tube. The tip is in the stomach. There is contrast seen withi n the stomach. IMPRESSION: No acute pulmonary findings. DATA REPOSITORY: RADIATION DOSE DELIVERED:
--- NOTE | 2023-11-07 03:39 | DI.VRAD_ITS ---
PROCEDURE INFORMATION: Exam: XR Abdomen Exam date and time: 11/07/2023 2:19 AM Age: 78 years old Clinical indication: Abnormal findings; Abnormal radiologic finding of the abdomen; Radiologic exam and body structure: Sbo; Additional info: 1 hr post - gastrografin TECHNIQUE: Imaging protocol: Radiologic exam of the abdomen. Views: Frontal supine view of the abdomen. 1 View. COMPARISON: CT ABDOMEN PELVIS W 11/06/2023 11:35 PM FINDINGS: Gastrointestinal tract: Oral contrast material is noted within the stomach and proximal small bowel. Organs: Renal excretion of contrast material as well as contrast material within the bladder. Bones/joints: Unremarkable. IMPRESSION: Oral contrast material is noted within the stomach and proximal small bowel. Dictated and Authenticated by: Jb Cadena MD. Ordering:CASEY Weinstein MD
--- NOTE | 2023-11-07 03:41 | DI.VRAD_ITS ---
PROCEDURE INFORMATION: Exam: XR Chest Exam date and time: 11/07/2023 3:24 AM Age: 78 years old Clinical indication: Device placement; Ng tube TECHNIQUE: Imaging protocol: Radiologic exam of the chest. Views: 1 view. COMPARISON: CT CHEST/ABD/PEL W 11/03/2023 11:00 PM FINDINGS: Tubes, catheters and devices: Nasogastric tube tip overlies the stomach. Lungs: Unremarkable. No consolidation. Pleural spaces: Unremarkable. No pleural effusion. No pneumothorax. Heart/Mediastinum: Unremarkable. No cardiomegaly. Bones/joints: Unremarkable. IMPRESSION: Nasogastric tube tip overlies the stomach. Contrast material is noted within the stomach. Dictated and Authenticated by: Jb Cadena MD. Ordering:CASEY Weinstein MD
--- NOTE | 2023-11-07 04:05 | W.EDPROG ---
Date of service: 11/07/23 Time of Service: 04:06 Medical Decision Making Patient was signed out to me by my colleague Dr. Islas. Please refer to her HPI, physical exam, assessment and plan. Abbreviated history, patient was recently admitted and subsequently discharged just a day ago. He had lactic acidosis, UTI, and acute kidney injury. Those components had been resolved, however over the last 24 hours he has had no more ostomy output, as well as having abdominal distention and pain similar to previous episodes of obstructions like he has had in the past. After assessment, my colleague ordered a CAT scan and laboratory workup to evaluate for these etiologies. CT scan per radiology shows evidence of obstruction. There are dilated small bowel loops. Similar in positioning to previous scans, likely secondary to an adhesion. We did perform Gastrografin trial, and the patient took down a full oral contrast dose, unfortunately even after 2 hours he had no output whatsoever. Patient remained in pain with abdominal discomfort. Laboratory workup initially demonstrates a lactate of 2.6, after liter of fluids previously ordered, repeat lactate is now down to 2.1. He has no white count. Urinalysis still shows evidence of infection. Renal function normal. Vital signs stable. With medical stability otherwise present, and no resolution of his symptoms nor bowel movement after Gastrografin, I do feel that admission is indicated. Will place NG tube and contact surgery. 4:00 AM I did discuss the case with the on-call surgeon Dr. Barry, she has reviewed the images, she does feel that this is more so an ileus. She feels that this is still likely secondary to his urinary tract infection previous dehydration, recommends medicine admit secondary to his recent discharge. I did discuss that I felt that his other medical components had stabilized at this point, and that he was still undergoing appropriate treatment with the cefpodoxime, and his lactic acidosis had stabilized otherwise. Dr. Barry does prefer that the patient be admitted to the medicine service with surgery on consult. I will reach out to the hospitalist for further discussion. 4:20 AM I discussed the case with hospitalist Dr. Jim, he agrees with the assessment and plan and will admit the patient. I will place admission orders on his behalf at his request. NG tube in place. I have extensively reviewed the treatment plan with the patient. I have addressed all patient concerns at this time. I have also discussed the plan with the admitting physician and they agree with the current assessment and plan and have agreed to assume responsibility for the patient. All parties demonstrate verbal understanding and agreement with our assessment and plan at this time. The documentation in this chart was dictated using [employer] dictation software. Please excuse any dictation errors. FINDINGS: Lungs: Minimal dependent atelectasis at the lung bases. Liver: Diffuse hepatic steatosis. Nodular hepatic contour. Enlarged caudate and left hepatic lobes. No focal hepatic mass. Tips shunt in unchanged position and with patent flow. Gallbladder and bile ducts: No calcified stones, wall thickening or biliary dilatation. Pancreas: No mass or peripancreatic edema. Spleen: Stable splenomegaly. Adrenal glands: No adrenal nodule. Kidneys and ureters: Kidneys homogeneously enhance. No hydronephrosis. No renal or ureteral calculi. Stomach and bowel: Calcific density probable swallowed pill within stomach. No gastric or duodenal wall thickening. Partial right and distal colectomy. Left lower quadrant colostomy. Interval multiple fluid-filled dilated small bowel loops within the lower mid abdomen. There is the appearance of tethering of the loops to the anterior abdominal wall at the level of the umbilicus and more inferiorly just above bladder dome. Dilated loops include in an anastomotic site. No small bowel thickening. No pneumatosis. Small bowel patterson appear to be normally vascularized. Appendix: No evidence of appendicitis Intraperitoneal space: No free air or free fluid. No significant mesenteric stranding. Vasculature: No portal vein thrombosis. Aortoiliac atherosclerotic disease without aneurysm. The SMV is patent. Mild stenosis celiac trunk origin and proximal SMA. No SMA filling defect. Lymph nodes: No significant adenopathy. Urinary bladder: No definite bladder wall thickening. Reproductive: Prostatic enlargement. Extraperitoneal space: Stable postsurgical change in the presacral space. Bones/joints: Severe disc space narrowing and spondylosis in the lower thoracic and lumbar spine. Soft tissues: Extra-abdominal soft tissues are unremarkable. IMPRESSION: 1. Small bowel obstruction. No secondary signs of ischemic bowel. Loops do have a somewhat clustered appearance and possibility of closed loop obstruction not completely excluded. 2. THIS REPORT CONTAINS FINDINGS THAT MAY BE CRITICAL TO PATIENT CARE. The findings were verbally communicated via telephone conference with Dr. Johns at 12:28 AM EST on 11/07/2023. The findings were acknowledged and understood. Thank you for allowing us to participate in the care of your patient. Dictated and Authenticated by: Lm Mathur MD 11/07/2023 12:29 AM Eastern Time ([place] & [place]) FINDINGS: Tubes, catheters and devices: Nasogastric tube tip overlies the stomach. Lungs: Unremarkable. No consolidation. Pleural spaces: Unremarkable. No pleural effusion. No pneumothorax. Heart/Mediastinum: Unremarkable. No cardiomegaly. Bones/joints: Unremarkable. IMPRESSION: Nasogastric tube tip overlies the stomach. Contrast material is noted within the stomach. Thank you for allowing us to participate in the care of your patient. Dictated and Authenticated by: Jb Cadena MD 11/07/2023 3:41 AM Eastern Time ([place] & [place]) Quality:[facility] Health Related Social Needs: Health related social needs inadequate housing, risk of homeless, transpo insecurity Sign Out Sign Out Data: Sign Out Comment: 78-year-old gentleman presents today with severe abdominal pain and decreased ostomy output. He is concerned that he has a bowel obstruction. He has not been having any vomiting. He was discharged yesterday from the hospital. His hospitalization was for fall and UTI. Discharged on antibiotics. Had lactic acidosis and RODOLFO for the hospitalization, resuscitated down to normal. Lactic acid elevated today. 1 L IV fluids given. Pending CT scan. Last updated by Yajaira Islas MD at 11/06/23 23:41 Discharge Plan Disposition Patient Disposition: Admit to [facility] Discharge Details Chief Complaint: Abd Prob Clinical Impression: Small bowel obstruction Primary Care Provider: Maryann Whitt ED Provider: Js Johns Home Meds and New Rx's Prescriptions: No Action venlafaxine 150 mg Capsule,Extended Release 24hr 150 mg PO DAILY spironolactone 25 mg Tablet 25 mg PO QAM prazosin 5 mg Capsule 10 mg PO QHS pantoprazole 40 mg Tablet,Delayed Release (Dr/Ec) 40 mg PO DAILY metformin 1,000 mg Tablet 1,000 mg PO BID valsartan 40 mg Tablet 40 mg PO BID pregabalin 50 mg Capsule 50 mg PO BID Eliquis 5 mg Tablet 5 mg PO BID Patient Comments: not taking nitroglycerin 0.4 mg Tablet, Sublingual 0.4 mg sublingual Q5 MIN PRN X3 PRNQty: 30 0RF miconazole nitrate 2 % Powder 1 applic TOPICAL BID PRN carvedilol 3.125 mg tablet 3.125 mg PO BID Qty: 0 0RF Patient Comments: TAKE 1 TABLET (3.125MG) BY MOUTH TWICE DAILY Rx Instructions: with meals acetaminophen [Tylenol] 325 mg Capsule 650 mg PO Q8H MDD 3000 PRNQty: 0 0RF rifaximin 550 mg Tablet 550 mg PO BID tamsulosin 0.4 mg Capsule 0.4 mg PO DAILY ferrous sulfate 325 mg (65 mg iron) Tablet 325 mg PO DAILY empagliflozin 25 mg Tablet 25 mg PO DAILY furosemide [Lasix] 20 mg tablet 20 mg PO QAM levothyroxine 200 mcg Tablet 100 mcg PO QAM Qty: 0 0RF lidocaine 5 % Adhesive Patch,Medicated 1 patch topical Q24H Qty: 7 0RF cefpodoxime 200 mg tablet 200 mg PO BID Qty: 9 0RF Rx Instructions: must administer with a meal/food, start 1/10 evening dose
--- NOTE | 2023-11-07 06:39 | HPE_ITS ---
Date of service: 11/07/23 Time of Service: 06:40 Assessment and Plan Assessment and plan (1) Small bowel obstruction: Start date: 11/06/23 Status: Acute Assessment and plan: This is a 78-year-old gentleman who is having recurrent small bowel obstruction with known previous adhesions requiring lysis. He usually self resolves. He has status post left hemicolectomy for rectal colon cancer. He has a recurrence of this problem quite frequently but not in the recent past by history. He already is feeling better with NG tube suctioning to low Gomco suction and is passing some stool. Bowel sounds are also positive. He will continue with conservative therapy with surgical consultation placed. (2) Lactic acid acidosis: Start date: 11/06/23 Status: Acute Assessment and plan: Patient does have recurrent lactic acidosis with dehydration and has responded to IV fluids. Follow-up labs with gentle IV hydration. (3) UTI (urinary tract infection): Status: Chronic Assessment and plan: Recurrent with patient on cephalexin with urine culture obtained in the ED. Follow-up culture and adjust medical therapy as needed. Patient will continue on oral therapy for now but if he is unable to advance diet he could be temporized with IV antibiotic therapy. He does not appear toxic and is having minimal symptoms. This appears to be a chronic issue with recurrent UTIs. Qualifiers: Hematuria presence: without hematuria Urinary tract infection type: a cute cystitis Qualified Code(s): N30.00 - Acute cystitis without hematuria (4) Chronic atrial fibrillation: Status: Chronic Assessment and plan: Controlled rate on present medical regimen with patient to have Eliquis held until able to resume oral therapy. He is not a candidate for heparin or Lovenox with thrombocytopenia associated with his cirrhosis. (5) Type 2 diabetes mellitus: Status: Chronic Assessment and plan: Hold usual oral medications and glucometer measurements with short acting insulin coverage while hospitalized. Qualifiers: Chronic kidney disease stage: stage 2 (mild) Diabetes mellitus complication detail: with chronic kidney disease Diabetes mellitus complication status: with kidney complications Diabetes mellitus custodial insulin use: w [facility] custodial use Qualified Code(s): E11.22 - Type 2 diabetes mellitus with diabetic chronic kidney disease; N18.2 - Chronic kidney disease, stage 2 (mild) (6) Colon cancer: Assessment and plan: Patient unsure of date of occurrence but is status post left hemicolectomy with recurrent small bowel obstruction from adhesions since his procedure. He has a chronic left lower quadrant colostomy Qualifiers: Colon location: sigmoid Qualified Code(s): C18.7 - Malignant neoplasm of sigmoid colon (7) Cirrhosis: Assessment and plan: Patient diuretics will be held for now with liver function test stable. Qualifiers: Ascites presence: without ascites Hepatic cirrhosis type: alcoholic cirrhosis Qualified Code(s): K70.30 - Alcoholic cirrhosis of liver without ascites History of Present Illness History of Present Illness Chief Complaint: Abdominal bloating with decreased output of colostomy bag Narrative: This is a 78-year-old male patient who has a history of rectal colon cancer with left hemicolectomy many years ago with patient stated was in the 1950s though he is not sure of dates. Since then he has had a colostomy bag which is draining in his left lower abdomen and has had several episodes of small bowel obstruction with some open laparotomies due to release adhesions in the past. This has not happened recently. He does have hospitalizations quite frequently for small bowel function and usually these cleared with bowel rest and NG tube. He did present to the ED after recent hospitalization for lactic acidosis which is common along with dehydration and UTI. He is still on treatment for his UTI with cefpodoxime and in the ED his urinalysis appeared to have continued pyuria and possible infection. Cultures were obtained. Patient will be continued on cephalexin as he tolerates oral medications with no evidence of severe infection requiring IV antibiotic therapy at this time. He will have some of his oral meds held because of slight lactic acidosis recurring and rehydration needed. Surgical consultation was sought as per ER note with Dr. Johns sign off patient after discussion with surgeon, Dr. Barry. When I interviewed the patient he appears more comfortable with less abdominal distention was having slight output in his colostomy bag. He was having no nausea or vomiting with his NG tube in place at low intermittent suction. He was given IV fluids with slight correction of his lactic acid and no signs of fluid overload. He will continue on gentle IV hydration awaiting difficulty to remove NG tube and advance diet if he is abdominal distention and colostomy bag output continues to improve. Surgery will see patient for follow-up and if he is not improving he may require lysis of adhesions which is best to be avoided if this can be treated conservatively. The surgeon thought he may have an ileus but he appears to be having his recurrent episodes of partial small bowel obstruction which is occurred multiple times in the past. His exam does revealed positive bowel sounds in all quadrants. Patient remains a full code. Review of Systems Narrative: 13 point review of systems otherwise unrevealing or stable with deconditioning and multiple medical problems chronically. [facility] All Active Problems Small bowel obstruction (Acute) Pre-syncope (Acute) Acute kidney injury (Acute) Frequent falls (Acute) Orthostatic hypotension (Acute) Lactic acid acidosis (Acute) UTI (urinary tract infection) (Chronic) Chronic atrial fibrillation (Chronic) RODOLFO (acute kidney injury) (Acute) Type 2 diabetes mellitus (Chronic) Hypokalemia (Acute) Bradycardia (Acute) Multiple falls (Acute) Acute metabolic encephalopathy (Acute) Medication monitoring encounter (Acute) ANETTE (obstructive sleep apnea) (Chronic) Chest pain (Acute) CHF exacerbation (Acute) CHF (congestive heart failure) (Chronic) Medical History Creatinine elevation Acute UTI Anticoagulated COVID Chronic low back pain Recurrent intestinal obstruction History of colon cancer Palliative care encounter Followed by [facility] Chronic anticoagulation Portal hypertension Cirrhosis TIPs placed (?when, [facility] [place]? 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 [place]. Meds Allergies and Home Medications Allergies Allergy/AdvReac Type Severity Reaction Status Date / Time Penicillins Allergy Mild Itching Unverified 11/03/23 21:38 morphine AdvReac Severe vomiting Unverified 01/08/24 21:38 mussels AdvReac Severe vomiting Unverified 11/03/23 21:38 Home Medications Medication Instructions Recorded Confirmed Type apixaban 5 mg tablet (Eliquis) 5 mg PO BID 11/08/22 11/06/23 History metformin 1,000 mg tablet 1,000 mg PO BID 11/08/22 11/07/23 History pantoprazole 40 mg tablet,delayed 40 mg PO DAILY 11/08/22 11/07/23 History release prazosin 5 mg capsule 10 mg PO QHS 11/08/22 11/07/23 History pregabalin 50 mg capsule 50 mg PO BID 11/08/22 11/07/23 History spironolactone 25 mg tablet 25 mg PO QAM 11/08/22 11/07/23 History valsartan 40 mg tablet 40 mg PO BID 11/08/22 11/07/23 History venlafaxine 150 mg 150 mg PO DAILY 11/08/22 11/07/23 History capsule,extended release 24 hr tamsulosin 0.4 mg capsule 0.4 mg PO DAILY 11/29/22 11/07/23 History nitroglycerin 0.4 mg sublingual 0.4 mg sublingual Q5 MIN PRN X3 02/10/23 11/07/23 Rx tablet PRN #30 tabs ferrous sulfate 325 mg (65 mg 325 mg PO DAILY 03/08/23 11/06/23 History iron) tablet empagliflozin 25 mg tablet 25 mg PO DAILY 04/09/23 11/03/23 History furosemide 20 mg tablet (Lasix) 20 mg PO QAM 04/09/23 11/06/23 History levothyroxine 200 mcg tablet 100 mcg (1/2 x 200 mcg) PO QAM #0 04/10/23 11/07/23 Rx tabs miconazole nitrate 2 % topical 1 applic topical BID PRN 06/16/23 11/07/23 History powder acetaminophen 325 mg capsule 650 mg (2 x 325 mg) PO Q8H PRN #0 06/17/23 11/06/23 Rx (Tylenol) caps carvedilol 3.125 mg tablet 3.125 mg PO BID #0 tabs 06/17/23 11/06/23 Rx rifaximin 550 mg tablet 550 mg PO BID 07/07/23 11/07/23 History cefpodoxime 200 mg tablet 200 mg PO BID #9 tabs 11/05/23 11/06/23 Rx lidocaine 5 % topical patch 1 patch topical Q24H #7 ea 11/05/23 11/07/23 Rx Exam Narrative Exam Narrative: General: Patient appears older than stated age, moderately obese, alert and oriented x 3 grossly and in no acute distress with NG tube in place. HEENT: Normocephalic, coarsened facial features, eyes with pupils equal react light symmetrically, extraocular movement intact and sclera anicteric. Oropharynx with moist mucosa and poor dentition with many missing teeth and carious teeth remaining. Neck: Supple without JVD. Back: Slightly kyphotic without CVA tenderness. Lungs: Fair aeration clear to auscultation With no focalizing rales or rhonchi. Heart: Irregularly irregular rhythm with no murmurs or gallops appreciated. Abdomen: Obese contour, soft to palpation with no tympany to percussion. No palpable hepatosplenomegaly. Colostomy bag in left lower quadrant with some liquid stool. Bowel sounds are positive and normal active in all quadrants. No focal tenderness or guarding and no rebound. Genitalia/rectal: Exam deferred. Extremities: Moderate nonpitting edema with no clubbing or cyanosis. Good cap refill. Skin: Thickened changes over sun exposed areas, otherwise normal color, warm and dry. Neuro: Cranial nerves II to XII grossly intact, no focal motor deficits. No tremor. Psych: Normal affect and mood with no abnormal thought processes. Remote and recent memory grossly intact though patient does have problems recalling dates of when he had previous medical problems initially addressed. Results Imaging Imaging Studies: Baseline and a littleExam: CT Abdomen And Pelvis With Contrast Exam date and time: 11/06/2023 11:35 PM Age: 78 years old Clinical indication: Abdominal pain; Additional info: Abd pain, eval sbo due to COMPARISON: CT CHEST/ABD/PEL W 11/03/2023 11:00 PM FINDINGS: Lungs: Minimal dependent atelectasis at the lung bases. Liver: Diffuse hepatic steatosis. Nodular hepatic contour. Enlarged caudate and left hepatic lobes. No focal hepatic mass. Tips shunt in unchanged position and with patent flow. Gallbladder and bile ducts: No calcified stones, wall thickening or biliary dilatation. Pancreas: No mass or peripancreatic edema. Spleen: Stable splenomegaly. Adrenal glands: No adrenal nodule. Kidneys and ureters: Kidneys homogeneously enhance. No hydronephrosis. No renal or ureteral calculi. Stomach and bowel: Calcific density probable swallowed pill within stomach. No gastric or duodenal wall thickening. Partial right and distal colectomy. Left lower quadrant colostomy. Interval multiple fluid-filled dilated small bowel loops within the lower mid abdomen. There is the appearance of tethering of the loops to the anterior abdominal wall at the level of the umbilicus and more inferiorly just above bladder dome. Dilated loops include in an anastomotic site. No small bowel thickening. No pneumatosis. Small bowel patterson appear to be normally vascularized. Appendix: No evidence of appendicitis. Intraperitoneal space: No free air or free fluid. No significant mesenteric stranding. Vasculature: No portal vein thrombosis. Aortoiliac atherosclerotic disease without aneurysm. The SMV is patent. Mild stenosis celiac trunk origin and proximal SMA. No SMA filling defect. Lymph nodes: No significant adenopathy. Urinary bladder: No definite bladder wall thickening. Reproductive: Prostatic enlargement. Extraperitoneal space: Stable postsurgical change in the presacral space. Bones/joints: Severe disc space narrowing and spondylosis in the lower thoracic and lumbar spine. Soft tissues: Extra-abdominal soft tissues are unremarkable. IMPRESSION: 1. Small bowel obstruction. No secondary signs of ischemic bowel. Loops do have a somewhat clustered appearance and possibility of closed loop obstruction not completely excluded. ?LVEF 40 ? Cannula manage Exam: XR Abdomen Exam date and time: 11/07/2023 2:19 AM Age: 78 years old Clinical indication: Abnormal findings; Abnormal radiologic finding of the abdomen; Radiologic exam and body structure: Sbo; Additional info: 1 hr post - gastrografin TECHNIQUE: Imaging protocol: Radiologic exam of the abdomen. Views: Frontal supine view of the abdomen. 1 View. COMPARISON: CT ABDOMEN PELVIS W 11/06/2023 11:35 PM FINDINGS: Gastrointestinal tract: Oral contrast material is noted within the stomach and proximal small bowel. Organs: Renal excretion of contrast material as well as contrast material within the bladder. Bones/joints: Unremarkable. IMPRESSION: Oral contrast material is noted within the stomach and proximal small bowel. Exam: XR Chest Exam date and time: 11/07/2023 3:24 AM Age: 78 years old Clinical indication: Device placement; Ng tube TECHNIQUE: Imaging protocol: Radiologic exam of the chest. Views: 1 view. COMPARISON: CT CHEST/ABD/PEL W 11/03/2023 11:00 PM FINDINGS: Tubes, catheters and devices: Nasogastric tube tip overlies the stomach. Lungs: Unremarkable. No consolidation. Pleural spaces: Unremarkable. No pleural effusion. No pneumothorax. Heart/Mediastinum: Unremarkable. No cardiomegaly. Bones/joints: Unremarkable. IMPRESSION: Nasogastric tube tip overlies the stomach. Contrast material is noted within the stomach. Labs 11/07/23 07:35 11/07/23 07:35 Labs: Laboratory Results - last 24 hr 11/06/23 11/06/23 11/07/23 23:05 23:05 01:02 WBC 5.13 RBC 4.73 Hgb 14.4 Hct 40.9 MCV 87 MCH 30.4 MCHC 35.2 RDW 14.9 H Plt Count 96 L D MPV 10.7 Immature Gran % 0.4 Neutrophils % 67.2 Lymphocytes % 13.6 Monocytes % 13.1 Eosinophils % 4.9 Basophils % 0.8 Nucleated RBC % 0.0 Absolute Neutrophils 3.45 Absolute Lymphocytes 0.70 L Absolute Monocytes 0.67 Absolute Eosinophils 0.25 Absolute Basophils 0.04 RBC Morphology Normal VBG Lactate 2.6 H* 2.1 H Sodium 137 Potassium 3.8 Chloride 103 Carbon Dioxide 24.4 Anion Gap 9.6 BUN 16 Creatinine 1.2 Est GFR (CKD-EPI 2020) 62.67 Glucose 328 H Calcium 9.4 Magnesium 1.9 Cancelled Total Bilirubin 1.6 H AST 38 H ALT 19 Alkaline Phosphatase 121 H Total Protein 7.0 Albumin 3.0 L Lipase 87 H Urine Color Yellow Urine Clarity Clear Urine pH 6.0 Ur Specific Fraser <= 1.005 Urine Protein Trace H Urine Ketones Negative Urine Blood Large H Urine Nitrite Negative Urine Bilirubin Negative Urine Urobilinogen 0.2 Ur Leukocyte Esterase Small H Urine RBC 20-50 H Urine WBC 20-50 H Ur Epithelial Cells Negative Urine Crystals Negative Urine Bacteria Few Urine Casts Negative Urine Mucus Negative Ur Culture Indicated? Yes Urine Glucose >=1000 H Last Vital Signs Temp 36.3 C L 11/07/23 05:05 Pulse 99 H 11/07/23 05:05 Resp 18 11/07/23 05:05 BP 110/70 11/07/23 05:05 Pulse Ox 92 11/07/23 05:05 Time Spent Time spent with Patient: >75 minutes Time was spent: preparing to see the patient(eg.review tests), obtaining and/or reviewing separately otained hiistory, ordering medications,tests, procedures, referring, communicating with other health ambulatory care coordinator, indepentently interpreting results and care coordination
[2023-11-07] MEDS: Normal Saline Flush 10 ML SYR IVP (07:35)
[2023-11-07 07:50] LABS: HCT 42.9 % (40.0-50.0); HGB 14.7 g/dL (13.5-17.5); MCH 30.1 pg (27.0-33.0); MCHC 34.3 % (32.0-36.0); MCV 88 fL (80-95); MPV 10.1 fL (8.0-11.0); RBC 4.89 10^6/uL (4.36-5.78); RDW 15.3 % (11.8-14.1); RDW-SD 49.3 fL; WBC 5.83 10^3/uL (4.4-10.8)
[2023-11-07] MEDS: Normal Saline 1,000 ML 100 ML IV (08:00)
[2023-11-07 08:02] LABS: ALT 20 U/L (16-63); AST 38 U/L (15-37); Alkaline Phosphatase 126 U/L (46-116); BUN 15 mg/dL (7-18); Bilirubin, Total 1.8 mg/dL (0.2-1.0); CREATININE 1.2 mg/dL (0.70-1.30); Calcium 9.4 mg/dL (8.5-10.1); Chloride 104 mmol/L (98-107); Estimated GFR 62.67 (mL/min/1.73m2); Glucose 235 mg/dL (74-106); Potassium 4.3 mmol/L (3.5-5.1); Sodium 137 mmol/L (136-145); Total Protein 7.2 g/dL (6.4-8.2)
[2023-11-07 08:05] LABS: Platelet Count 97 10^3/uL (130-400)
--- NOTE | 2023-11-07 08:10 | W.SURGCON ---
Date of service: 11/07/23 Time of Service: 08:10 Assessment and Plan Assessment and plan (1) Small bowel obstruction: Status: Acute Assessment and plan: 78yo male admitted with abdominal pain and CT concerning for SBO. He is hemodynamically stable and not exhibiting peritoneal signs. He has evidence of some stool output in his ostomy, though it is unknown when that was passed. There may be a component of an ileus as he has not received full treatment for his UTI, and was under-resusucitated when he returned to the ED. Initial lactic acid corrected from 2.6 to 2.1 after 1L bolus. --NPO --NGT --ambulate with assistance --IV fluids --IV meds, as appropriate --try to avoid narcotics --will proceed with conservative management, pt is already improving this morning (2) UTI (urinary tract infection): Status: Chronic Assessment and plan: --IV treatment for UTI while NPO Qualifiers: Hematuria presence: without hematuria Urinary tract infection type: acute cystitis Qualified Code(s): N30.00 - Acute cystitis without hematuria (3) RODOLFO (acute kidney injury): Status: Acute Assessment and plan: resolving, monitor urine output (4) Type 2 diabetes mellitus: Status: Chronic Assessment and plan: --ISS, as appropriate Qualifiers: Chronic kidney disease stage: stage 2 (mild) Diabetes mellitus complication detail: with chronic kidney disease Diabetes mellitus complication status: with kidney complications Diabetes mellitus buttermaker continuous churn insulin use: without retirement use Qualified Code(s): E11.22 - Type 2 diabetes mellitus with diabetic chronic kidney disease; N18.2 - Chronic kidney disease, stage 2 (mild) History of Present Illness History of Present Illness Chief Complaint: abdominal pain Narrative: This is a 78-year-old male with a history of afib (on apixaban), Type II DM, ANETTE, CHF, cirrhoisis s/p TIPS, right and left colectomy with end colostomy, who presents with abdominal pain. He was recently admitted on 11/04/23 to [facility], after a fall, and was found to have a UTI, RODOLFO, and lactic acidosis. He was resuscitated, started on antibiotics, and was discharged on 11/05/23. He states that he does not think he had stool output when admitted, but did have some on discharge at home. He returned to the [facility] ED on the evening of 11/06/23 with complaints of abdominal pain and decreased colostomy output. He denies nausea/vomiting. He is unable to tell me when his last stool output occurred. An NGT was placed in the ED after attempted gastrograffin challenge. >500ML has been drained, and the patient feels improved. Per his previous history, he has had >30 bowel obstructions, treated conservatively. Upon his last surgery, he reportedly was told that he should not have any further abdominal surgery. At present, he denies chest pain, shortness of breath, abdominal pain, or dysuria. Review of Systems Narrative: Limited as pt is somnolent. Intermittently answering. Constitutional Comments: A 10-point ROS was conducted. See pertinent findings in HPI. PFSH All Active Problems Small bowel obstruction (Acute) Pre-syncope (Acute) Acute kidney injury (Acute) Frequent falls (Acute) Orthostatic hypotension (Acute) Lactic acid acidosis (Acute) UTI (urinary tract infection) (Chronic) Chronic atrial fibrillation (Chronic) RODOLFO (acute kidney injury) (Acute) Type 2 diabetes mellitus (Chronic) Hypokalemia (Acute) Bradycardia (Acute) Multiple falls (Acute) Acute metabolic encephalopathy (Acute) Medication monitoring encounter (Acute) ANETTE (obstructive sleep apnea) (Chronic) Chest pain (Acute) CHF exacerbation (Acute) CHF (congestive heart failure) (Chronic) Medical History Creatinine elevation Acute UTI Anticoagulated COVID Chronic low back pain Recurrent intestinal obstruction History of colon cancer Palliative care encounter Followed by [facility] Chronic anticoagulation Portal hypertension Cirrhosis [place] [facility] 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, Dx as per pt Non-insulin dependent type 2 diabetes mellitus Incontinence Hypertension Scleral icterus Surgical History S/P TIPS (transjugular intrahepatic portosystemic shunt) Colostomy in place H/O left hemicolectomy Social History Smoking/Tobacco Use Status: Former Tobacco Use Smoking risk assessment performed?: Yes Alcohol Intake: former Drug use: Never Substance use type: does not use Housing: house Do you feel safe at home: Yes Do you feel safe in your relationship?: Yes Additional Social history: Lives with , son, and sick [id number] in [place], moved up from [place] in 2019. [place] . Exam Const General: lethargic Nutritional Appearance: overweight HENMT Other: NGT in place, draining bilious fluidd Neck Neck: normal visual inspection and trachea midline Resp Effort & Inspection: normal respiratory effort Auscultation: clear to auscultation bilaterally Cardio Rate: regular rate Rhythm: regular rhythm Heart Sounds: S1 normal and S2 normal Other: questionable murmur GI Palpation: soft, no guarding, not rigid and nontender Percussion: dullness to percussion and tympanic to percussion Auscultation: hyperactive bowel sounds Other: healed midline incision with colostomy in place in LLQ, small amount of soft stool in ostomy appliance, no gas Neuro General: patient alert, patient awake and patient oriented x3 Other: lethargic earlier, now much improved Extrem Other: no LE edema Results Last Vital Signs Temp 97.3 F L 11/07/23 05:05 Pulse 99 H 11/07/23 05:05 Resp 18 11/07/23 05:05 BP 110/70 11/07/23 05:05 Pulse Ox 92 11/07/23 05:05 Labs 11/07/23 07:35 11/07/23 07:35 Labs: Laboratory Results - last 24 hr 11/06/23 11/06/23 11/07/23 23:05 23:05 01:02 WBC 5.13 RBC 4.73 Hgb 14.4 Hct 40.9 MCV 87 MCH 30.4 MCHC 35.2 RDW 14.9 H Plt Count 96 L D MPV 10.7 Immature Gran % 0.4 Neutrophils % 67.2 Lymphocytes % 13.6 Monocytes % 13.1 Eosinophils % 4.9 Basophils % 0.8 Nucleated RBC % 0.0 Absolute Neutrophils 3.45 Absolute Lymphocytes 0.70 L Absolute Monocytes 0.67 Absolute Eosinophils 0.25 Absolute Basophils 0.04 RBC Morphology Normal VBG Lactate 2.6 H* 2.1 H Sodium 137 Potassium 3.8 Chloride 103 Carbon Dioxide 24.4 Anion Gap 9.6 BUN 16 Creatinine 1.2 Est GFR (CKD-EPI 2020) 62.67 Glucose 328 H Calcium 9.4 Magnesium 1.9 Cancelled Total Bilirubin 1.6 H AST 38 H ALT 19 Alkaline Phosphatase 121 H Total Protein 7.0 Albumin 3.0 L Lipase 87 H Urine Color Yellow Urine Clarity Clear Urine pH 6.0 Ur Specific [place] <= 1.005 Urine Protein Trace H Urine Ketones Negative Urine Blood Large H Urine Nitrite Negative Urine Bilirubin Negative Urine Urobilinogen 0.2 Ur Leukocyte Esterase Small H Urine RBC 20-50 H Urine WBC 20-50 H Ur Epithelial Cells Negative Urine Crystals Negative Urine Bacteria Few Urine Casts Negative Urine Mucus Negative Ur Culture Indicated? Yes Urine Glucose >=1000 H 11/07/23 07:35 WBC 5.83 RBC 4.89 Hgb 14.7 Hct 42.9 MCV 88 MCH 30.1 MCHC 34.3 RDW 15.3 H Plt Count 97 L MPV 10.1 Immature Gran % Neutrophils % Lymphocytes % Monocytes % Eosinophils % Basophils % Nucleated RBC % Absolute Neutrophils Absolute Lymphocytes Absolute Monocytes Absolute Eosinophils Absolute Basophils RBC Morphology VBG Lactate Sodium 137 Potassium 4.3 Chloride 104 Carbon Dioxide 22.0 Anion Gap 11.0 BUN 15 Creatinine 1.2 Est GFR (CKD-EPI 2020) 62.67 Glucose 235 H Calcium 9.4 Magnesium 2.0 Total Bilirubin 1.8 H AST 38 H ALT 20 Alkaline Phosphatase 126 H Total Protein 7.2 Albumin 3.0 L Lipase Urine Color Urine Clarity Urine pH Ur Specific [place] Urine Protein Urine Ketones Urine Blood Urine Nitrite Urine Bilirubin Urine Urobilinogen Ur Leukocyte Esterase Urine RBC Urine WBC Ur Epithelial Cells Urine Crystals Urine Bacteria Urine Casts Urine Mucus Ur Culture Indicated? Urine Glucose Imaging CT scan - pelvis: report reviewed and image reviewed Imaging Studies: CT ABD/PEL (11/07/23): FINDINGS: ABDOMEN: Lung Bases: Normal where visualized. Liver: The liver has a nodular contour consistent with hepatic cirrhosis. There is a TIPS in place. There is a stable area of decreased attenuation in the posterior segment of the right lobe of the liver. No other hepatic lesions are seen. This is nonspecific. Portal, Superior Mesenteric, and Splenic Veins: Unremarkable. Gallbladder and Biliary Tract: Gallstone is present. No biliary ductal dilatation is present. There is a calcifications seen in the head of the pancreas. This is unchanged compared to prior examinations. (Series 5, image 412). This may represent pancreatic parenchymal calcification versus choledocholithiasis. Pancreas: Normal density, no abnormal calcifications or inflammatory process. Spleen: Splenomegaly. Adrenals: No masses seen. Kidneys: Normal size, contour and axis. No radiodense stones or obstructive uropathy. No masses seen. Abdominal Aorta: Abdominal portion non-dilated. Atherosclerosis. Bowel: There is a partial colectomy with a left lower quadrant colostomy in place. There is also a partial right colectomy with an entero colonic anastomosis. The stomach is incompletely distended limiting evaluation. No pneumatosis. There is no evidence of appendicitis. There are now dilated loops of small bowel in the central pelvis. The have a clustered appearance with normal caliber bowel loops both proximally and distally. Peritoneal Cavity: No ascites, collection or mesenteric inflammatory response. No free air. Lymph Nodes: Within normal limits. Bones: Within normal limits for the patient's age. Soft Tissues: Unremarkable. PELVIS: Bladder: Symmetric distention, no gross wall thickening. Reproductive Organs: Mildly enlarged prostate gland. Lymph Nodes: Within normal limits. Bones: Within normal limits for the patient's age. IMPRESSION: 1. New dilated small bowel loops in the lower abdomen suspicious for small bowel obstruction. Its appearance raises a question of a closed loop obstruction. 2. Incidental findings in the abdomen and pelvis as described above.
[2023-11-07] MEDS: ACETAMINOPHEN 1,000 MG/100 ML BTL 400 MG IVPB (08:13)
--- NOTE | 2023-11-07 08:45 | PDOC.CMIN ---
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 He is an [employer] and is 100% service connected with the [place]. Merrill occasionally uses a walker for ambulatory assistance and is independent with his ADLs at baseline. CURRENT FUNCTIONAL STATUS:: Merrill was sitting up in bed when CM met with him. He was pleasant in interaction and engaged easily with CM, well known to him from previous hospitalizations. Merrill stated he was doing fine after discharge on Friday until yesterday when he developed severe abdominal pain. He was readmitted with a SBO. Merrill's last admission was for a fall and a Uti. ADVANCE DIRECTIVES:: Has Advanced directives but not on file at [facility]. Has patient been provided with info about the portal/API?: Yes Did the patient sign up for the portal?: No CODE STATUS:: Full Code INSURANCE COVERAGE / FINANCIAL ISSUES[facility] CURRENT [facility]/COMMUNITY SERVICES/EQUIPMENT:: uses a walker had new home health orders for RN,PT,OT and [employer]. PRIMARY CARE PHYSICIAN:: Maryann Whitt POTENTIAL DISCHARGE NEEDS:: follow up with PCP and plan of care PATIENT/FAMILY EDUCATION NEEDS:: Review of discharge instructions, activity, limitations, follow up plan, discuss Ask Me Three TRANSPORTATION:: via RCT coordinated by CM PLAN:: Anticipate Merrill will be discharged home with a resumption of the newly ordered home health services for PT, OT and nursing. He will follow up with his community providers and plan of care and transport with family. CM will follow and continue to assess for discharge concerns. [facility] All Active Problems (Updated 11/08/23 @ 16:36 by Evi Valenzuela APRN) Hypothyroidism (Chronic) Discharge planning issues (Acute) On deep vein thrombosis (DVT) prophylaxis (Acute) Small bowel obstruction (Acute) Pre-syncope (Acute) Acute kidney injury (Acute) Frequent falls (Acute) Orthostatic hypotension (Acute) Lactic acid acidosis (Acute) UTI (urinary tract infection) (Chronic) Chronic atrial fibrillation (Chronic) RODOLFO (acute kidney injury) (Acute) Type 2 diabetes mellitus (Chronic) Hypokalemia (Acute) Bradycardia (Acute) Multiple falls (Acute) Acute metabolic encephalopathy (Acute) Medication monitoring encounter (Acute) ANETTE (obstructive sleep apnea) (Chronic) Chest pain (Acute) CHF exacerbation (Acute) CHF (congestive heart failure) (Chronic) Medical History Creatinine elevation Acute UTI Anticoagulated COVID Chronic low back pain Recurrent intestinal obstruction History of colon cancer Palliative care encounter Followed by [facility] Chronic anticoagulation Portal hypertension Cirrhosis TIPs placed ([place]when, [facility] 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, Dx [facility] as per pt Non-insulin dependent type 2 diabetes mellitus Incontinence Hypertension Scleral icterus Surgical History S/P TIPS (transjugular intrahepatic portosystemic shunt) Colostomy in place H/O left hemicolectomy Social History Smoking/Tobacco Use Status: Former Tobacco Use Smoking risk assessment performed?: Yes Alcohol Intake: former Drug use: Never Substance use type: does not use Housing: house Do you feel safe at home: Yes Do you feel safe in your relationship?: Yes Additional Social history: Lives with , son, and sick [id number] in [place], moved up from [place] in 2019. [place] . Readmission Within the Past 30 Days Yes or No: Yes Date of First Admission Date of 1st Admission: 11/04/23 Date of this Admission Date of Admission: 11/07/23 This admission was: Through ED Office Visit Since 1st Admission Have you seen your PCP in the office since discharge?: No Speicalist Appointments Have you seen any other specialist since your 1st Admission?: No I. Interview patient and/or Family Difficulty reaching your doctor or getting an office appt?: No Have you had trouble purchasing/ or taking medication?: No Have you had trouble with getting meals at home?: No Assessment for Readmission Summary of readmission circumstances, based upon interviews: Merrill was hospitalized from 11/04/23 until 11/05/23 with a UTI. His readmission is for a SBO SDOH(Care Management) Screening Will the Patient Participate in the Screening?: Yes Do you worry about having a steady place to live?: yes Problems where you live: pests such as bugs, ants or mice, Carbon monoxide detectors missing or not working and unsafe michelle/stairs In the past 12 months, have you had to go without electric, gas, oil or water in your home?: yes Have you or anyone in your house had to go without enough food to eat?: yes Has lack of transportation kept you from medical appointments or from doing things needed for daily living?: yes Has anyone in your support network made you feel unsafe for any reason?: no Social Determinants of Health Comments(SDOH Details): pt states house is built on rocks which go into the cellar, the floor is uneven and difficult to walk on Health Related Social Needs Health related social needs: inadequate housing(Z59.1), housing instability, housed, with risk of homelessness(Z59.811), food insecurity(Z59.41), transportation insecurity(Z59.82) and material hardship(utilities)(Z59.87)
--- NOTE | 2023-11-07 10:08 | RESPIRATORY ---
10:05 am- Attempted to call patient's son to see if he could bring in his father's CPAP machine but his voicemail box is full and RT was unable to leave message. Patient did not tolerate hospital CPAP machine earlier this week on previous admission.
[2023-11-07] MEDS: cefTRIAXone 1 GM/50 ML BAG IVPB (13:05)
[2023-11-07] MEDS: Lidocaine 5% Patch 1 PATCH TP (13:51)
--- NOTE | 2023-11-07 14:09 | PGE_ITS ---
Date of Service Date of service: 11/07/23 Time of Service: 13:30 Assessment and Plan Assessment and plan (1) Small bowel obstruction: Status: Acute Assessment and plan: as per Dr. Barry's recommendations, continue NG drainage/decompression overnight, tomorrow if NG output lessens then will clamp the NG and give trial of ice chips and sips of water. If not for the high output today, I would have considered trial of NG clamping tonight particulary in light of his now having stool out his ostomy. (2) UTI (urinary tract infection): Status: Chronic Assessment and plan: continue ceftriaxone Qualifiers: Urinary tract infection type: acute cystitis Hematuria presence: without hematuria Qualified Code(s): N30.00 - Acute cystitis without hematuria (3) RODOLFO (acute kidney injury): Status: Acute Assessment and plan: resolving, monitor urine output, continue iv fluids (changed to LR from NS) (4) Type 2 diabetes mellitus: Status: Chronic Qualifiers: Diabetes mellitus group home insulin use: without terminal operations supervisor use Diabetes mellitus complication status: with kidney complications Diabetes mellitus complication detail: with chronic kidney disease Chronic kidney disease stage: stage 2 (mild) Qualified Code(s): E11.22 - Type 2 diabetes mellitus with diabetic chronic kidney disease; N18.2 - Chronic kidney disease, stage 2 (mild) Subjective Subjective Interval history since last seen: Osmar denies any abdominal pain. He still has the NG in place. This morning he was passing flatus from his ostomy however this afternoon when I went to see him again w/ Dr. Barry, he was having formed BM out his ostomy. Exam Narrative Exam Narrative: Elderly male who is in N.A.D, alert and oriented Lungs: clear Heart: irregularly irregular controlled rate Abdomen: obese, somewhat distended but soft and nontender even w/ deep palpation, ostomy in LLQ w/ stool in the ostomy bag Review of his NG output for the day was 800 mL on days (7am to 3 pm, and another 250 mL from 3 pm to 6 pm) Objective Last Vital Signs Temp 36.5 C 11/07/23 09:31 Pulse 76 11/07/23 09:31 Resp 15 11/07/23 09:31 BP 136/80 11/07/23 09:31 Pulse Ox 93 11/07/23 09:31 Laboratory Results - last 24 hr 11/06/23 11/06/23 11/07/23 23:05 23:05 01:02 WBC 5.13 RBC 4.73 Hgb 14.4 Hct 40.9 MCV 87 MCH 30.4 MCHC 35.2 RDW 14.9 H Plt Count 96 L D MPV 10.7 Immature Gran % 0.4 Neutrophils % 67.2 Lymphocytes % 13.6 Monocytes % 13.1 Eosinophils % 4.9 Basophils % 0.8 Nucleated RBC % 0.0 Absolute Neutrophils 3.45 Absolute Lymphocytes 0.70 L Absolute Monocytes 0.67 Absolute Eosinophils 0.25 Absolute Basophils 0.04 RBC Morphology Normal VBG Lactate 2.6 H* 2.1 H Sodium 137 Potassium 3.8 Chloride 103 Carbon Dioxide 24.4 Anion Gap 9.6 BUN 16 Creatinine 1.2 Est GFR (CKD-EPI 2020) 62.67 Glucose 328 H Calcium 9.4 Magnesium 1.9 Cancelled Total Bilirubin 1.6 H AST 38 H ALT 19 Alkaline Phosphatase 121 H Total Protein 7.0 Albumin 3.0 L Lipase 87 H Urine Color Yellow Urine Clarity Clear Urine pH 6.0 Ur Specific [place] <= 1.005 Urine Protein Trace H Urine Ketones Negative Urine Blood Large H Urine Nitrite Negative Urine Bilirubin Negative Urine Urobilinogen 0.2 Ur Leukocyte Esterase Small H Urine RBC 20-50 H Urine WBC 20-50 H Ur Epithelial Cells Negative Urine Crystals Negative Urine Bacteria Few Urine Casts Negative Urine Mucus Negative Ur Culture Indicated? Yes Urine Glucose >=1000 H 11/07/23 07:35 WBC 5.83 RBC 4.89 Hgb 14.7 Hct 42.9 MCV 88 MCH 30.1 MCHC 34.3 RDW 15.3 H Plt Count 97 L MPV 10.1 Immature Gran % Neutrophils % Lymphocytes % Monocytes % Eosinophils % Basophils % Nucleated RBC % Absolute Neutrophils Absolute Lymphocytes Absolute Monocytes Absolute Eosinophils Absolute Basophils RBC Morphology VBG Lactate Sodium 137 Potassium 4.3 Chloride 104 Carbon Dioxide 22.0 Anion Gap 11.0 BUN 15 Creatinine 1.2 Est GFR (CKD-EPI 2020) 62.67 Glucose 235 H Calcium 9.4 Magnesium 2.0 Total Bilirubin 1.8 H AST 38 H ALT 20 Alkaline Phosphatase 126 H Total Protein 7.2 Albumin 3.0 L Lipase Urine Color Urine Clarity Urine pH Ur Specific [place] Urine Protein Urine Ketones Urine Blood Urine Nitrite Urine Bilirubin Urine Urobilinogen Ur Leukocyte Esterase Urine RBC Urine WBC Ur Epithelial Cells Urine Crystals Urine Bacteria Urine Casts Urine Mucus Ur Culture Indicated? Urine Glucose Time Spent with Patient Time Spent with Patient: 35-49 minutes Time was spent: preparing to see the patient(eg.review tests), obtaining and/or reviewing separately otained hiistory, ordering medications,tests, procedures, referring, communicating with other health animal care provider (met w/ and discussed w/ Dr. Barry from surgical services), indepentently interpreting results, counseling the patient and care coordination
[2023-11-07] MEDS: Insulin Aspart 300 UNITS/3 ML PEN SC (15:01)
[2023-11-07] MEDS: Lactated Ringers 1,000 ML 100 ML IV (20:15)
[2023-11-08 03:39] VITALS: BP 167/72; PULSE 61; RESP 18; TEMP 36.8; O2SAT 94
[2023-11-08] MEDS: Lactated Ringers 1,000 ML 100 ML IV (05:07)
[2023-11-08 07:08] LABS: Lactate 1.3 mmol/L (0.6-1.4)
[2023-11-08 07:10] LABS: HCT 39.8 % (40.0-50.0); HGB 13.3 g/dL (13.5-17.5); MCH 30.1 pg (27.0-33.0); MCHC 33.4 % (32.0-36.0); MCV 90 fL (80-95); MPV 10.2 fL (8.0-11.0); Platelet Count 109 10^3/uL (130-400); RBC 4.42 10^6/uL (4.36-5.78); RDW 15.5 % (11.8-14.1); RDW-SD 50.9 fL; WBC 6.24 10^3/uL (4.4-10.8)
[2023-11-08] MEDS: Levothyroxine 100 MCG TAB PO (07:23)
[2023-11-08 07:42] LABS: ALT 13 U/L (16-63); AST 31 U/L (15-37); Albumin 2.6 g/dL (3.4-5.0); Alkaline Phosphatase 102 U/L (46-116); Anion Gap 10.9 mmol/L (3-11); BUN 19 mg/dL (7-18); Bilirubin, Total 1.7 mg/dL (0.2-1.0); CO2 24.1 mmol/L (21.0-32.0); CREATININE 0.9 mg/dL (0.70-1.30); Calcium 8.9 mg/dL (8.5-10.1); Chloride 110 mmol/L (98-107); Estimated GFR 88.51 (mL/min/1.73m2); Glucose 131 mg/dL (74-106); Potassium 3.9 mmol/L (3.5-5.1); Sodium 145 mmol/L (136-145); Total Protein 6.2 g/dL (6.4-8.2)
[2023-11-08 07:56] VITALS: BP 171/64; PULSE 58; RESP 16; TEMP 36.2; O2SAT 95
--- NOTE | 2023-11-08 08:27 | W.PM.PROGNOT ---
Date of Service Date of service: 11/08/23 Time of Service: 10:00 Assessment and Plan Assessment and plan (1) Small bowel obstruction: Status: Acute Assessment and plan: 78-year-old man who possibly had a small bowel obstruction but that has since resolved with NG tube decompression. He is having bowel function out of his colostomy now. He has no abdominal pain and his abdominal exam is benign. The stool coming out of his ostomy is quite thick and very formed. Overall plan: Clear liquids Stool softeners Possible discharge tomorrow if tolerating a diet and p.o. hydration I discussed him and his case with Dr. Ross. Subjective Subjective Interval history since last seen: At the bedside the patient has no complaints. He has no abdominal pain. His NG tube came out earlier this morning from sneezing. He is having stool output from his ostomy. Exam Narrative Exam Narrative: General: Nontoxic, comfortable and interactive and talkative Neuro: Alert and oriented x 3 Psych: Good mood and affect, good insight and understanding into his condition Abdomen: Soft, nondistended and nontender. The ostomy has formed stool and a small amount of gas in the bag. He has well?healed surgical scars on his abdomen. No palpable hernias. Objective Last Vital Signs Temp 97.2 F L 11/08/23 07:56 Pulse 58 L 11/08/23 07:56 Resp 16 11/08/23 07:56 BP 171/64 H 11/08/23 07:56 Pulse Ox 95 11/08/23 07:56 Laboratory Results - last 24 hr 11/08/23 07:02 WBC 6.24 RBC 4.42 Hgb 13.3 L Hct 39.8 L MCV 90 MCH 30.1 MCHC 33.4 RDW 15.5 H Plt Count 109 L MPV 10.2 VBG Lactate 1.3 Sodium 145 Potassium 3.9 Chloride 110 H Carbon Dioxide 24.1 Anion Gap 10.9 BUN 19 H Creatinine 0.9 Est GFR (CKD-EPI 2020) 88.51 Glucose 131 H Calcium 8.9 Magnesium 2.0 Total Bilirubin 1.7 H AST 31 ALT 13 L Alkaline Phosphatase 102 Total Protein 6.2 L Albumin 2.6 L Time Spent with Patient Time Spent with Patient: 25-34 minutes Time was spent: referring, communicating with other health health care facilities inspector and care coordination
[2023-11-08] MEDS: Carvedilol 3.125 MG TAB PO ×2 (09:55→21:08)
[2023-11-08] MEDS: Ferrous Sulfate 325 MG TAB PO (09:55)
[2023-11-08] MEDS: Empaglifozin 25 MG TAB PO (09:55)
[2023-11-08] MEDS: Venlafaxine 150 MG CAPCR PO (09:56)
[2023-11-08] MEDS: Tamsulosin 0.4 MG CAPCR PO (09:56)
[2023-11-08] MEDS: Pregabalin 50 MG CAP PO ×2 (09:56→21:09)
[2023-11-08] MEDS: Valsartan 40 MG TAB PO ×2 (09:56→21:08)
[2023-11-08] MEDS: Rifaximin 550 MG TAB PO ×2 (09:56→21:08)
[2023-11-08 12:01] VITALS: BP 189/88; PULSE 61; RESP 16; TEMP 36.3; O2SAT 95
--- NOTE | 2023-11-08 12:37 | PGE_ITS ---
Date of Service Date of service: 11/08/23 Time of Service: 12:30 Assessment and Plan Assessment and plan (1) Small bowel obstruction: Status: Acute Assessment and plan: NGT course completed,formed stools in colostomy. Patient is tolerating oral such as clear liquid diet. As per Dr. Meyer he might be a candidate for discharge tomorrow; will continue stool softeners as per surgery consultation orders (2) UTI (urinary tract infection): Status: Chronic Assessment and plan: Serratia Marcescens on 11/03 sample, GNR and yeast on 11/07 sample continue ceftriaxone No dysuria and will not treat the asymptomatic funguria Qualifiers: Hematuria presence: without hematuria Urinary tract infection type: acute cystitis Qualified Code(s): N30.00 - Acute cystitis without hematuria (3) RODOLFO (acute kidney injury): Status: Acute Assessment and plan: Cr 0.9 today, initially 1.8 then 1.2 on 11/07/23, oral fluid well tolerated, u/o over 0.5 mg/kg/ hour for the past 12 hours.Will stop IVF and encourage oral fluids. Seem to be back to baseline (4) Type 2 diabetes mellitus: Status: Chronic Assessment and plan: Continue gluc AC and HS and ss insulin coverage. Continue empagliflozin and lyrica BMP in AM Qualifiers: Chronic kidney disease stage: stage 2 (mild) Diabetes mellitus complication detail: with chronic kidney disease Diabetes mellitus complication status: with kidney complications Diabetes mellitus longterm insulin use: without longterm use Qualified Code(s): E11.22 - Type 2 diabetes mellitus with diabetic chronic kidney disease; N18.2 - Chronic kidney disease, stage 2 (mild) (5) CHF (congestive heart failure): Status: Chronic Assessment and plan: On medicine regimen ordered No acute decompensation (6) Chronic atrial fibrillation: Status: Chronic Assessment and plan: On home regimen of beta-michael will continue, no RVR (7) On deep vein thrombosis (DVT) prophylaxis: Status: Acute Assessment and plan: Eliquis for A-Fib reordered platlets 109 (8) Hypothyroidism: Status: Chronic Assessment and plan: Hx of hypothyroidism is on Levothryroxine at home, will continue (9) Discharge planning issues: Status: Acute Assessment and plan: Possible discharge tomorrow; coordination with CM Subjective Subjective Patient reports: no new complaints, feels better, tolerating liquids well, voiding w/o difficulty, bowel movement and afebrile; denies diarrhea, blood in stool, nausea, vomiting, shortness of breath or fever Exam Narrative Exam Narrative: General: Patient appears moderately obese, alert and oriented x to self, unable to state the type of facilty then refused to answer question re: orientation; in no acute distress HEENT: Normocephalic, facial features with normal structures, Neck: No JVD. Back: No CVA tenderness. Lungs: Clear lung field posteriorly Heart: Irregularly with P waves on tele, seems to be in a SA, no murmurs, positive pulses to all 4 extremities Abdomen: Large, soft to palpation,noon-tender,no mass, no hepatosplenomegaly. Colostomy bag in left lower quadrant with some formed stool. Bowel sounds are present. Extremities: no edema, push/ pull 5/5 strength Skin: no opened lesions Neuro: No focal deficit. Psych: Normal to labile affect and mood Objective Last Vital Signs Temp 36.3 C L 11/08/23 12:01 Pulse 61 11/08/23 12:01 Resp 16 11/08/23 12:01 BP 189/88 H 11/08/23 12:01 Pulse Ox 95 11/08/23 12:01 Laboratory Results - last 24 hr 11/08/23 07:02 WBC 6.24 RBC 4.42 Hgb 13.3 L Hct 39.8 L MCV 90 MCH 30.1 MCHC 33.4 RDW 15.5 H Plt Count 109 L MPV 10.2 VBG Lactate 1.3 Sodium 145 Potassium 3.9 Chloride 110 H Carbon Dioxide 24.1 Anion Gap 10.9 BUN 19 H Creatinine 0.9 Est GFR (CKD-EPI 2020) 88.51 Glucose 131 H Calcium 8.9 Magnesium 2.0 Total Bilirubin 1.7 H AST 31 ALT 13 L Alkaline Phosphatase 102 Total Protein 6.2 L Albumin 2.6 L Time Spent with Patient Time Spent with Patient: >50 minutes Time was spent: preparing to see the patient(eg.review tests), ordering medications,tests, procedures, referring, communicating with other health client care manager, indepentently interpreting results, counseling the patient and care coordination
[2023-11-08] MEDS: Normal Saline Flush 10 ML SYR IVP ×2 (12:49→22:04)
[2023-11-08] MEDS: cefTRIAXone 1 GM/50 ML BAG IVPB (12:49)
[2023-11-08] MEDS: Insulin Aspart 300 UNITS/3 ML PEN SC (14:37)
[2023-11-08 16:02] VITALS: BP 182/62; PULSE 58; RESP 16; TEMP 36.1; O2SAT 96
[2023-11-08] MEDS: Prazosin 5 MG CAP 10 MG PO (21:09)
[2023-11-08] MEDS: Docusate Sodium 100 MG CAP PO (21:09)
[2023-11-08] MEDS: Apixaban 5 MG TAB PO (21:09)
[2023-11-08] MEDS: Melatonin 3 MG TAB PO (21:09)
[2023-11-08 21:24] VITALS: BP 154/71; PULSE 57; RESP 18; TEMP 36.4; O2SAT 90
[2023-11-09] MEDS: Levothyroxine 100 MCG TAB PO (05:59)
[2023-11-09 06:47] LABS: Abs Immature Grans 0.01 10^3/uL (0.0-0.06); Absolute Basophil Count 0.03 10^3/uL (0.0-0.2); Absolute Eosinophil Count 0.34 10^3/uL (0.0-0.7); Absolute Lymphocyte Count 0.98 10^3/uL (1.2-3.4); Absolute Neutrophil Count 2.57 10^3/uL (1.2-6.7); Basophils % 0.7; Eosinophils % 7.7; HCT 37.1 % (40.0-50.0); HGB 12.7 g/dL (13.5-17.5); Immature Grans % 0.2; Lymphocytes % 22.1; MCH 30.4 pg (27.0-33.0); MCHC 34.2 % (32.0-36.0); MCV 89 fL (80-95); MPV 10.9 fL (8.0-11.0); Monocytes % 11.3; RBC 4.18 10^6/uL (4.36-5.78); RDW 15.2 % (11.8-14.1); RDW-SD 49.2 fL; WBC 4.43 10^3/uL (4.4-10.8)
[2023-11-09 07:02] LABS: Anion Gap 7.2 mmol/L (3-11); BUN 14 mg/dL (7-18); CO2 26.8 mmol/L (21.0-32.0); CREATININE 0.8 mg/dL (0.70-1.30); Calcium 8.9 mg/dL (8.5-10.1); Chloride 107 mmol/L (98-107); Estimated GFR 91.72 (mL/min/1.73m2); Glucose 101 mg/dL (74-106); Magnesium 1.8 mg/dL (1.8-2.4); Potassium 3.5 mmol/L (3.5-5.1); Sodium 141 mmol/L (136-145)
[2023-11-09 07:05] LABS: Diff Comment Diff Reviewed; Platelet Count 96 10^3/uL (130-400); RBC Morphology Normal
[2023-11-09 07:35] VITALS: BP 139/66; PULSE 50; RESP 18; TEMP 35.5; O2SAT 95
--- NOTE | 2023-11-09 08:08 | W.PM.PROGNOT ---
Date of Service Date of service: 11/09/23 Time of Service: 09:24 Assessment and Plan Assessment and plan (1) Small bowel obstruction: Status: Acute Assessment and plan: 78-year-old man who had a small bowel obstruction in the setting of having had many bowel obstructions throughout his life. He is a complex surgical history. For the last couple of days, clinically, there is no evidence of bowel obstruction. He is not having any nausea or vomiting and no abdominal pain at all. He has been having ostomy output. His abdominal exam is completely benign. At this time surgery is going to sign off. He can have a regular diet. I did order him some bowel medications for stool laxatives in case there is a little bit of constipation contributing. However clinically, he really does not have any complaints. Overall plan: Call us back as needed but I think he can be discharged home once he is tolerating a regular diet. He does not need to follow-up in the surgery office afterwards Subjective Subjective Interval history since last seen: Doing well. No complaints. Has still had some ostomy output. He has no abdominal pain. No fevers. He feels great. He says he is not surprised he does not have more ostomy output because he has not eaten anything. He wants to have some regular food. Exam Narrative Exam Narrative: General: Nontoxic, comfortable and interactive and pleasant. He is in no distress. Neuro: Alert and oriented x 3. Psych: Excellent mood and affect, good insight and understanding Abdomen: Soft, nondistended and nontender. The ostomy has a small amount of formed stool in it. Objective Last Vital Signs Temp 95.9 F L 11/09/23 07:35 Pulse 50 L 11/09/23 07:35 Resp 18 11/09/23 07:35 BP 139/66 11/09/23 07:35 Pulse Ox 95 11/09/23 07:35 Laboratory Results - last 24 hr 11/09/23 05:50 WBC 4.43 RBC 4.18 L Hgb 12.7 L Hct 37.1 L MCV 89 MCH 30.4 MCHC 34.2 RDW 15.2 H Plt Count 96 L MPV 10.9 Immature Gran % 0.2 Neutrophils % 58.0 Lymphocytes % 22.1 Monocytes % 11.3 Eosinophils % 7.7 Basophils % 0.7 Nucleated RBC % 0.0 Absolute Neutrophils 2.57 Absolute Lymphocytes 0.98 L Absolute Monocytes 0.50 Absolute Eosinophils 0.34 Absolute Basophils 0.03 RBC Morphology Normal Sodium 141 Potassium 3.5 Chloride 107 Carbon Dioxide 26.8 Anion Gap 7.2 BUN 14 Creatinine 0.8 Est GFR (CKD-EPI 2020) 91.72 Glucose 101 Calcium 8.9 Magnesium 1.8 Time Spent with Patient Time Spent with Patient: <25 minutes Time was spent: preparing to see the patient(eg.review tests) and counseling the patient
[2023-11-09] MEDS: Tamsulosin 0.4 MG CAPCR PO (09:42)
[2023-11-09] MEDS: Empaglifozin 25 MG TAB PO (09:42)
[2023-11-09] MEDS: Apixaban 5 MG TAB PO (09:42)
[2023-11-09] MEDS: Ferrous Sulfate 325 MG TAB PO (09:42)
[2023-11-09] MEDS: Valsartan 40 MG TAB PO (09:42)
[2023-11-09] MEDS: Pregabalin 50 MG CAP PO (09:42)
[2023-11-09] MEDS: Venlafaxine 150 MG CAPCR PO (09:42)
[2023-11-09] MEDS: Lidocaine 5% Patch 1 PATCH TP (09:42)
[2023-11-09] MEDS: Docusate Sodium 100 MG CAP PO (09:42)
[2023-11-09] MEDS: Rifaximin 550 MG TAB PO (09:44)
[2023-11-09] MEDS: Magnesium Citrate 300 ML BTL 150 ML PO (10:22)
[2023-11-09] MEDS: Normal Saline Flush 10 ML SYR IVP ×2 (10:24→11:54)
--- NOTE | 2023-11-09 10:30 | DSE_ITS ---
Date of service: 11/09/23 Time of Service: 15:02 DS: Diagnosis Discharge Diagnosis (1) Small bowel obstruction: Status: Acute Discharge Plan Disposition Patient Disposition: Home Condition: Improving Discharge Details Reason For Visit: Small bowel obstruction Admit Date/Time: 11/07/23 04:12 Admit Provider: Phoenix Jim Attending Provider: Phoenix Jim Primary Care Provider: Maryann Whitt Hospital Course Hospital Course: This 78 years old male patient with a prior medical history of freque nt falls, diabetes, atrial fibrillation Eliquis, rectal colon cancer with left hemicolectomy over 60 years ago as per patient, colostomy placement to his left lower abdominal quadrant, repetitive episodes of small bowel obstruction, open laparotomies for adhesion release, recent hospitalization for lactic acidosis with dehydration and acute kidney injury and UTI still on cefpodoxime presented to the ED at [facility] on 11/06/2023 for evaluation of abdominal pain. Patient stating no output from colostomy and experiencing abdominal distention abdominal pain similar to previous episode of obstructions. CAT scan showed evidence of obstruction with dilated small bowel bowel loops, similar in position into previous scans and most likely secondary to adhesion. Gastrografin trial did not produce any output after 2 hours as the patient kept experiencing abdominal pain and discomfort. Labs were remarkable for a lactate of 2.6, after a liter of fluid given, it was down to 2.1; no leukocytosis, with urine analysis demonstrating evidence of infection with normal renal function. The ED provider completed surgical consult with Dr. Barry who felt that it was more likely an ileus. Decision was made to seek admission to the medical floor from where the patient was discharged less than 24 hours ago, under hospitalist service. The hospitalist was consulted and the patient admitted to the medical surgical floor with telemetry as well as with ongoing surgical consultation for evaluation and management of small bowel obstruction. A nasogastric tube was inserted in the emergency department. During his stay the patient continued to have medical management for his small bowel obstruction including Nil Per Os, nasogastric tube to low intermittent suction, IV fluids, ceftriaxone for the treatment of UTI, and avoidance of narcotics.Telemetry showed sinus arrhythmia, without tachycardia. The patient received is home medicine with parameters for his chronic conditions heart failure, atrial fibrillation, hypothyroidism, benign prostatic hypertrophy, anemia. The patient received sliding scale insulin with glucometer checks before meals and at bedtime. With NG tube decompression and laxative use, the small bowel obstruction resolved as evidenced by softer abdomen, reduced abdominal pain, stool and gas output via the ostomy; the patient progressed to clear liquid diet which was well-tolerated. The patient never experienced nausea or vomiting. Further during the stay the patient was able to tolerate a regular diet and the ostomy remained functional as formed stools were produced. The patient will be discharged home with home health for physical therapy to increase strength and endurance for safe mobility, Occupational Therapy for evaluation of ability to perform ADLs, and nursing for monitoring of the condition and medicine administration as well as a center medical director for coordination of care. Repeated urine analysis demonstrated no further urinary tract infection.Will order an outpatient renal ultrasound to f/u on the UTI that might have been due to the constipation and bacterial translocation and not a structural defect. The patient's PCP will have to follow-up on the results and decide if urology consultation is warranted. The patient will need to follow-up with his primary care provider upon discharge within 1 to [address] Burton [place] Meds and New Rx's Prescriptions: New docusate sodium [Colace] 100 mg Capsule 100 mg PO BID Qty: 60 0RF polyethylene glycol 3350 17 gram Powder In Packet 17 g PO DAILY Qty: 30 0RF Continued venlafaxine 150 mg Capsule,Extended Release 24hr 150 mg PO DAILY spironolactone 25 mg Tablet 25 mg PO QAM prazosin 5 mg Capsule 10 mg PO QHS pantoprazole 40 mg Tablet,Delayed Release (Dr/Ec) 40 mg PO DAILY metformin 1,000 mg Tablet 1,000 mg PO BID valsartan 40 mg Tablet 40 mg PO BID pregabalin 50 mg Capsule 50 mg PO BID Eliquis 5 mg Tablet 5 mg PO BID Patient Comments: not taking nitroglycerin 0.4 mg Tablet, Sublingual 0.4 mg sublingual Q5 MIN PRN X3 PRNQty: 30 0RF miconazole nitrate 2 % Powder 1 applic TOPICAL BID PRN carvedilol 3.125 mg tablet 3.125 mg PO BID Qty: 0 0RF Patient Comments: TAKE 1 TABLET (3.125MG) BY MOUTH TWICE DAILY Rx Instructions: with meals acetaminophen [Tylenol] 325 mg Capsule 650 mg PO Q8H MDD 3000 PRNQty: 0 0RF rifaximin 550 mg Tablet 550 mg PO BID tamsulosin 0.4 mg Capsule 0.4 mg PO DAILY ferrous sulfate 325 mg (65 mg iron) Tablet 325 mg PO DAILY empagliflozin 25 mg Tablet 25 mg PO DAILY furosemide [Lasix] 20 mg tablet 20 mg PO QAM levothyroxine 200 mcg Tablet 100 mcg PO QAM Qty: 0 0RF lidocaine 5 % Adhesive Patch,Medicated 1 patch topical Q24H Qty: 7 0RF Discontinued cefpodoxime 200 mg tablet 200 mg PO BID Qty: 9 0RF Rx Instructions: must administer with a meal/food, start /10 evening dose Discharge Instructions Stand Alone Forms: Nursing Discharge Form Referrals: Maryann Whitt [Primary Care Provider] - 11/11/23 8:00 am (This 78 years old male patient with a prior medical history of frequent falls, diabetes, atrial fibrillation Eliquis, rectal colon cancer with left hemicolectomy over 60 years ago as per patient, colostomy placement to his left lower abdominal quadrant, repetitive episodes of small bowel obstruction, open laparotomies for adhesion release, recent hospitalization for lactic acidosis with dehydration and acute kidney injury and UTI still on cefpodoxime presented to the ED at [facility] on 11/06/2023 for evaluation of abdominal pain. Patient stating no output from colostomy and experiencing abdominal distention abdominal pain similar to previous episode of obstructions. CAT scan showed evidence of obstruction with dilated small bowel bowel loops, similar in position into previous scans and most likely secondary to adhesion. Gastrografin trial did not produce any output after 2 hours as the patient kept experiencing abdominal pain and discomfort. Labs were remarkable for a lactate of 2.6, after a liter of fluid given, it was down to 2.1; no leukocytosis, with urine analysis demonstrating evidence of infection with normal renal function. The ED provider completed surgical consult with Dr. Barry who felt that it was more likely an ileus. Decision was made to seek admission to the medical floor from where the patient was discharged less than 24 hours ago, under hospitalist service. The hospitalist was consulted and the patient admitted to the medical surgical floor with telemetry as well as with ongoing surgical consultation for evaluation and management of small bowel obstruction. A nasogastric tube was inserted in the emergency department. During his stay the patient continued to have medical management for his small bowel obstruction including Nil Per Os, nasogastric tube to low intermittent suction, IV fluids, ceftriaxone for the treatment of UTI, and IV avoidance of narcotics.Telemetry showed sinus arrhythmia, without tachycardia. The patient received is home medicine with parameters for his chronic conditions heart failure, atrial fibrillation, hypothyroidism, benign prostatic hypertrophy, anemia. The patient received sliding scale insulin with glucometer checks before meals and at bedtime. With NG tube decompression and laxative use, the small bowel obstruction resolved as evidenced by softer abdomen, reduced abdominal pain, stool and gas output via the ostomy; the patient progressed to clear liquid diet which was well-tolerated. The patient never experienced nausea or vomiting. Further during the stay the patient was able to tolerate a regular diet and the ostomy remained functional as formed stools were produced. The patient will be discharged home with home health for physical therapy to increase strength and endurance for safe mobility, Occupational Therapy for evaluation of ability to perform ADLs, and nursing for monitoring of the condition and medicine administration. Repeated urine analysis demonstrated no further urinary tract infection. Will order an outpatient renal ultrasound to f/u on the UTI that might have been due to the constipation and bacterial translocation and not a structural defect. The patient's PCP will have to follow-up on the results and decide if urology consultation is warranted.) Activity:: Activity as Tolerated Equipment/Supplies:: No Equipment Needed Diet:: diabetic & heart healthy Discharge Orders Discharge Orders: Discharge Order (Routine); Ordered 11/09/23 Ordered By: Evi Valenzueal Other Ambulatory Orders: renal (Routine) Timeframe: 20231111 Location: None Selected Ordered By: Evi Valenzuela DS: Summary Time Spent with Patient providing and/or coordinating discharge services: Greater than 30 minutes Status at Discharge Functional status at discharge: uses cane/walker Overall status at discharge: patient is back to baseline Mental Status: mental status grossly normal Speech and Movement: speech and movement normal Mood: congruent mood Affect: normal affect Quality:SDOH Health Related Social Needs: Health related social needs inadequate housing, risk o f homeless, food insecurity, transpo insecurity, material hardship Exam Narrative Exam Narrative: General: Patient appears moderately obese, alert and oriented x to self, in no acute distress HEENT: Normocephalic, facial structures with normal appearance Neck: No JVD. Back: No CVA tenderness. Lungs: Clear lung field posteriorly Heart: S1-S2, no murmurs, positive pulses to all 4 extremities Abdomen: Large, soft to palpation,non-tender,no mass, no hepatosplenomegaly. Colostomy bag in left lower quadrant with some liquid stool. Bowel sounds are present. Extremities: no edema, push/ pull 5/5 strength Skin: exposed skin is intact Neuro: No focal deficit. Psych: Normal to labile affect and mood Psych Mental Status: mental status grossly normal Speech and Movement: speech and movement normal Mood: congruent mood Affect: normal affect DS: Data Vitals/I&O Vitals and I&O: Vital Signs Temperature 35.5 C L 11/09/23 07:35 Temperature Source Tympanic 11/09/23 07:35 Pulse 50 L 11/09/23 07:35 Pulse Rhythm Regular 11/09/23 09:56 Respiratory Rate 18 11/09/23 07:35 Respiratory Effort Normal 11/09/23 09:56 Respiratory Depth Normal 11/09/23 00:11 Respiratory Pattern Normal 11/09/23 00:11 Blood Pressure 139/66 11/09/23 07:35 Blood Pressure Position Sitting 11/07/23 02:44 Pulse Oximetry 95 11/09/23 07:35 Oxygen Delivery Method Nasal Cannula 11/09/23 07:35 Oxygen Flow Rate 1.5 11/09/23 07:35 Pain Level 0 11/09/23 07:35 Comment Nurse notified. 11/08/23 03:39 Intake & Output 11/08/23 11/08/23 11/09/23 11:59 23:59 11:59 Intake Total 886.667 / 2308.334 1421.667 / 2308.334 610 / 610 Output Total 200 / 1775 1575 / 1775 750 / 750 Balance 686.667 / 533.334 -153.333 / 533.334 -140 / -140 Intake: IV 886.667 / 1708.334 821.667 / 1708.334 10 / 10 Oral 600 / 600 600 / 600 Output: Urine 200 / 1775 1575 / 1775 600 / 600 Stool 150 / 150 Other: Urine Color Light Mady Yellow Straw Urine Appearance Clear Clear Clear Urine Odor Strong None None Voiding Methods Urinal Urinal Data Completed and Pending Labs on day of discharge: Labs from last 24 hours 11/09/23 05:50 WBC 4.43 RBC 4.18 L Hgb 12.7 L Hct 37.1 L MCV 89 MCH 30.4 MCHC 34.2 RDW 15.2 H Plt Count 96 L MPV 10.9 Immature Gran % 0.2 Neutrophils % 58.0 Lymphocytes % 22.1 Monocytes % 11.3 Eosinophils % 7.7 Basophils % 0.7 Nucleated RBC % 0.0 Absolute Neutrophils 2.57 Absolute Lymphocytes 0.98 L Absolute Monocytes 0.50 Absolute Eosinophils 0.34 Absolute Basophils 0.03 RBC Morphology Normal Sodium 141 Potassium 3.5 Chloride 107 Carbon Dioxide 26.8 Anion Gap 7.2 BUN 14 Creatinine 0.8 Est GFR (CKD-EPI 2020) 91.72 Glucose 101 Calcium 8.9 Magnesium 1.8 PFSH All Active Problems (Updated 11/08/23 @ 16:36 by Evi Valenzuela APRN) Hypothyroidism (Chronic) Discharge planning issues (Acute) On deep vein thrombosis (DVT) prophylaxis (Acute) Small bowel obstruction (Acute) Pre-syncope (Acute) Acute kidney injury (Acute) Frequent falls (Acute) Orthostatic hypotension (Acute) Lactic acid acidosis (Acute) UTI (urinary tract infection) (Chronic) Chronic atrial fibrillation (Chronic) RODOLFO (acute kidney injury) (Acute) Type 2 diabetes mellitus (Chronic) Hypokalemia (Acute) Bradycardia (Acute) Multiple falls (Acute) Acute metabolic encephalopathy (Acute) Medication monitoring encounter (Acute) ANETTE (obstructive sleep apnea) (Chronic) Chest pain (Acute) CHF exacerbation (Acute) CHF (congestive heart failure) (Chronic) Medical History Creatinine elevation Acute UTI Anticoagulated COVID Chronic low back pain Recurrent intestinal obstruction History of colon cancer Palliative care encounter Followed by [facility] Chronic anticoagulation Portal hypertension Cirrhosis TIPs placed (?when, [facility]? 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, Dx [facility] as per pt Non-insulin dependent type 2 diabetes mellitus Incontinence Hypertension Scleral icterus Surgical History S/P TIPS (transjugular intrahepatic portosystemic shunt) Colostomy in place H/O left hemicolectomy Social History Smoking/Tobacco Use Status: Former Tobacco Use Smoking risk assessment performed?: Yes Alcohol Intake: former Drug use: Never Substance use type: does not use Housing: house Do you feel safe at home: Yes Do you feel safe in your relationship?: Yes Additional Social history: Lives with , son, and sick [id number] in [place], moved up from [place] in 2020. [place] . Time Spent with Patient Time Spent with Patient: >85 minutes Time was spent: preparing to see the patient(eg.review tests), obtaining and/or reviewing separately otained hiistory, ordering medications,tests, procedures, referring, communicating with other health family day carer, indepentently interpreting results, counseling the patient and care coordination
[2023-11-09] MEDS: cefTRIAXone 1 GM/50 ML BAG IVPB (11:54)
[2023-11-09] MEDS: Insulin Aspart 300 UNITS/3 ML PEN SC (11:55)
[2023-11-09 13:06] VITALS: BP 146/63; BP 166/57; BP 169/66; PULSE 51; PULSE 52; PULSE 53
[2023-11-09 13:29] LABS: Bilirubin Negative (Negative); Blood Negative (Negative); Clarity Clear (Clear); Glucose >=1000 mg/dL (Negative); Ketones Negative (Negative); Leukocyte Esterase Negative (Negative); Nitrite Negative (Negative); Specific Gravity <= 1.005 (1.005-1.025); Urobilinogen 0.2 mg/dL (Up to 0.2)
[2023-11-09 14:44] VITALS: BP 175/71; PULSE 56
[2023-11-09 15:46] VITALS: BP 167/82; PULSE 72; RESP 19; TEMP 36.3; O2SAT 95
--- NOTE | 2023-11-09 16:16 | PDOC.HHF2F_ITS ---
Home Health Referral Home Health Orders Clinical synopsis of why skilled professionals are needed: Fraility in elderly male with multiple chronic medical diseases increasing risk for decompensation and non-adherence to regimen Medical diagnosis necessitation home health referral: Small bowel obstruction now on laxatives, urinary tract infection, gait instability, CHF on multiple cardiac drugs, diabetes mellitus type 2 Registered Nurse: Check all that apply Instruct on new or changed medication(s)/assess compliance: Ordered Instruct on ostomy care: Ordered (monitor for decreased or no output ) Assess for exacerbation of medical condition, instruct patient/caregivers on signs and symptoms to report for early detection: Ordered Other: Patient has to take his laxatives daily Physical Therapist: Check all that apply Increase strength & endurance for safe mobility at home: Ordered To design/establish home maintenance program: Ordered Fall reduction therapy program for patient with history of frequent falls: Ordered Home safety evaluation and teaching/gait training including stair management (if applicable): Ordered Occupational Therapist: Evaluate and treat for patient unable to perform ADL/IADL/self-care: Ordered Upper extremity strengthening, range and motion: Ordered Pumping Station Supervisor: Assist with community resources: Ordered Assist with [facility] care planning: Ordered Home Bound Status Requires the aid of supportive device (check all that apply): Walker Describe why leaving home would require a considerable and taxing effort: Requires frequent rest periods, Confusion and Safety Concerns: describe Encounter Date and Reason: I certify that a FTF encounter for this patient was performed on November 09, 2023 and that such encounter was related to the primary reason the patient requires home health services. The encounter was conducted in the following manner: * By me as the certifying physician, [employer] SALES REPRESENTATIVE, PA or * By an inpatient physician, ABRASIVES SALES REPRESENTATIVE or PA during an inpatient stay who communicated findings to me, Certification And Authentication I certify that I composed the above information based on my clinical judgment relating to this patient's medical condition and, if applicable, clinical findings communicated to me by the NPP or inpatient physician who performed the FTF encounter. Name of Provider that will be monitoring home health services: Maryann Whitt
--- NOTE | 2023-11-09 16:20 | CMDISCH_ITS ---
Date of service: 11/09/23 Time of Service: 16:20 LACE Index Scoring Tool Questions: Length of Stay (in days): 2 Was the patient admitted via the E.D.?: Yes Comorbidities: Diabetes w/o Complication, Congestive Heart Failure, Chronic Pulmonary Disease, Any Tumor and Liver or Renal Disease E.D. Visits: 7 Answers: Total Score: 14 Risk of Readmission: High Risk Care Management Discharge Plan Reason for Hospitalization: SBO Discharge Plan: Merrill will be discharged home with a resumption of home health services. He was home for such a short time, services had not been initiated yet. He will follow up with his community providers and plan of care and transport with RCT coordinated by CM. Patient/Family Education Needs: Review of discharge instructions, activity, limitations, follow up plan, discuss Ask Me Three Services Needed at Discharge: Home Health Care Services SDOH Health Related Social Needs: Health related social needs inadequate housing, risk o f homeless, food insecurity, transpo insecurity, material hardship Health related social needs: inadequate housing(Z59.1), housing instability, housed, with risk of homelessness(Z59.811), food insecurity(Z59.41), transportation insecurity(Z59.82) and material hardship(utilities)(Z59.87)
--- NOTE | 2023-11-09 16:36 | NUR.NOTE ---
Dc orders written, notified. called back to notify staff that she would not be coming to get him d/t weather/snowing. RTC called. Nursing Note:
== END 2023-11-09 17:03 | disposition home or self-care (01) | DRG 389 ==
LOC: ER 11-07 04:56 → MS 11-07 04:59
PROVIDERS: Emergency Medicine; Nurse Practitioner Acute Care; Admitting Provider Family Medicine; Emergency Provider Student in an Organized Health Care Education/Training Program; PCP Nurse Practitioner Adult Health; Visit Provider Family Medicine
DX: K56.51 Intestinal adhesions [bands], with partial obstruction (principal); E87.20 Acidosis, unspecified; N30.00 Acute cystitis without hematuria; N17.9 Acute kidney failure, unspecified; I48.20 Chronic atrial fibrillation, unspecified; I13.0 Hypertensive heart and chronic kidney disease with heart failure and stage 1 through stage 4 chronic kidney disease, or unspecified chronic kidney disease; E11.22 Type 2 diabetes mellitus with diabetic chronic kidney disease; N18.2 Chronic kidney disease, stage 2 (mild); K70.30 Alcoholic cirrhosis of liver without ascites; I50.9 Heart failure, unspecified; E03.9 Hypothyroidism, unspecified; Z79.899 Other long term (current) drug therapy; Z79.01 Long term (current) use of anticoagulants; G47.33 Obstructive sleep apnea (adult) (pediatric); Z93.3 Colostomy status; R29.6 Repeated falls; I95.1 Orthostatic hypotension; E87.6 Hypokalemia; R00.1 Bradycardia, unspecified; M54.50 Low back pain, unspecified; G89.29 Other chronic pain; Z85.038 Personal history of other malignant neoplasm of large intestine; F32.A Depression, unspecified; R32 Unspecified urinary incontinence; Z87.891 Personal history of nicotine dependence; Z90.49 Acquired absence of other specified parts of digestive tract; B96.89 Other specified bacterial agents as the cause of diseases classified elsewhere; D64.9 Anemia, unspecified; N40.0 Benign prostatic hyperplasia without lower urinary tract symptoms; E86.0 Dehydration
CPT/HCPCS: 00123; 36415; 80048; 80053; 83690; 85027; 93005; 96361; 96374; 96375; 99285; 71045; 74018; 74177; 81003; 81015; 83605; 83735; 85025; 87086; 93010; 99223; 99233; 99239; J0131; J0696; J1170; J1815; J2405; J3490

== ENCOUNTER 2023-11-17 01:26 | Inpatient (IN) | payer OTHER, SELFPAY ==
[2023-11-17] VITALS (41 sets, daily range): BP systolic 124–164; BP diastolic 46–76; PULSE 65–83; RESP 16–18; TEMP 36.4–37; O2SAT 87–95
--- NOTE | 2023-11-17 | DI.RAD_ITS ---
Exam(s) XR ABDOMEN FLAT PLATE EXAM: 2D digital imaging was performed. CLINICAL HISTORY: gastrographin challenge. COMPARISON: CR XR ABDOMEN FLAT PLATE from 11/17/2023 TECHNIQUE: Supine views of the abdomen was performed. Three images were obtained. FINDINGS: BOWEL GAS PATTERN: There is oral contrast in the stomach and the bowel loops. There is contrast seen in the ostomy bag overlying the left pelvis. The bowel appears of normal caliber. CALCIFICATIONS: No radiopaque calcifications. OSSEOUS STRUCTURES: Normal for age. Degenerative changes are seen in the spine in the hips bilaterall y. OTHER FINDINGS: There is contrast seen in the urinary bladder consistent with recent CT examination. IMPRESSION: The oral contrast has passed through the stomach and bowel into the colostomy bag. DATA REPOSITORY: RADIATION DOSE DELIVERED:
--- NOTE | 2023-11-17 02:45 | DI.CT_ITS ---
Exam(s) CT ABDOMEN PELVIS W EXAM: CT ABDOMEN PELVIS W CLINICAL HISTORY: right abdominal pain. TECHNIQUE: Imaging Protocol: Axial computed tomography images with coronal and sagittal reformatted images were created and reviewed CONTRAST MATERIAL: Intravenous: Omnipaque 350 Contrast volume:100 ml Oral: yes / no COMPARISON: CT CT ABDOMEN PELVIS W from 11/06/2023 FINDINGS: ABDOMEN and PELVIS: Lung Bases: No acute findings. Liver: Tips. Cirrhotic appearing liver. No measurable mass. Gallbladder and biliary tract: No radiodense calculus or dilation. Pancreas: Normal density. No abnormal calcifications or inflammatory process. No evidence of mass. Spleen: Enlarged. Kidneys: Normal size, contour and axis. No radiodense stones. No obstructive uropathy. No suspicious masses seen. Adrenal glands: No masses seen. Vasculature: Abdominal aorta non-dilated. Soft tissues: Left lower quadrant colostomy. Fatty containing bilateral inguinal hernias. Bladder: No gross wall thickening. No calculi.No focal mass. Bowel: NG tube in stomach. Left lower quadrant colostomy is unremarkable. Ileocolic anastomosis rig ht mid abdomen. Distal small bowel obstruction with transition point in lower abdomen. Finding jung lar to prior. Mild bowel wall thickening. Appendix no pneumatosis. Peritoneal cavity: No ascites. No focal collection or mesenteric inflammatory response. Bones: Advanced degenerative changes in the spine. Impression fractures. Reproductive organs: Within normal limits. Lymph nodes: Unremarkable. IMPRESSION:: Small-bowel obstruction in the lower abdomen, similar to prior. Mild wall thickening. No pneumatosis. Colostomy unremarkable. RADIATION DOSE DELIVERED: 1,153.47mGy.cm Total DLP DATA REPOSITORY: All CT scans at this facility are submitted to the National Radiology Data Registry (NRDR) Dose Index Registry (DIR) with the [employer] [place] [employer] (ACR). RADIATION OPTIMIZATION: All CT scans at this facility use at least one of these dose optimization te chniques: automated exposure control; mA and/or kV adjustment per patient size (includes targeted exa ms where dose is matched to clinical indication); or iterative reconstruction.
[2023-11-17] MEDS: Ondansetron O.D.T. 4 MG TABEF PO (03:19)
[2023-11-17] MEDS: Lactated Ringers 1,000 ML 125 ML IV ×2 (03:19→12:56)
[2023-11-17] MEDS: fentaNYL 100 MCG/2 ML VIAL 50 MCG IVP (03:19)
[2023-11-17 03:39] LABS: Lactate 1.9 MMOL/l (0.9-1.7)
[2023-11-17 03:41] LABS: Abs Immature Grans 0.03 10^3/uL (0.0-0.06); Absolute Basophil Count 0.03 10^3/uL (0.0-0.2); Absolute Eosinophil Count 0.31 10^3/uL (0.0-0.7); Absolute Lymphocyte Count 0.89 10^3/uL (1.2-3.4); Absolute Monocyte Count 0.51 10^3/uL (0.1-0.8); Absolute Neutrophil Count 6.21 10^3/uL (1.2-6.7); Basophils % 0.4; Eosinophils % 3.9; HCT 43.6 % (40.0-50.0); Immature Grans % 0.4; Lymphocytes % 11.2; MCH 30.1 pg (27.0-33.0); MCHC 34.4 % (32.0-36.0); MCV 88 fL (80-95); Monocytes % 6.4; Neutrophils % 77.7; Platelet Count 95 10^3/uL (130-400); RBC 4.98 10^6/uL (4.36-5.78); RDW 15.2 % (11.8-14.1); RDW-SD 48.3 fL; WBC 7.98 10^3/uL (4.4-10.8)
[2023-11-17 03:43] LABS: Diff Comment PLT Morph Reviewed; RBC Morphology Normal
[2023-11-17 03:47] LABS: ALT 16 U/L (16-63); AST 27 U/L (15-37); Albumin 3.3 g/dL (3.4-5.0); Alkaline Phosphatase 136 U/L (46-116); Anion Gap 14.1 mmol/L (3-11); BUN 12 mg/dL (7-18); Bilirubin, Total 2.5 mg/dL (0.2-1.0); CO2 24.9 mmol/L (21.0-32.0); Calcium 10.3 mg/dL (8.5-10.1); Chloride 103 mmol/L (98-107); Glucose 196 mg/dL (74-106); Lipase 97 U/L (16-77); Potassium 3.6 mmol/L (3.5-5.1); Sodium 142 mmol/L (136-145); Total Protein 7.4 g/dL (6.4-8.2)
[2023-11-17] MEDS: Omnipaque 350 MG/ML 100 ML BTL IJ (03:57)
[2023-11-17] MEDS: Normal Saline Flush 10 ML SYR IVP ×3 (03:58→23:05)
[2023-11-17] MEDS: Normal Saline - Diluent 50 ML VIAL IJ (03:58)
--- NOTE | 2023-11-17 04:28 | DI.VRAD_ITS ---
PROCEDURE INFORMATION: Exam: CT Abdomen And Pelvis With Contrast Exam date and time: 11/17/2023 4:11 AM Age: 78 years old Clinical indication: Abdominal pain; Localized; Right; Prior surgery; Surgery date: 6+ months; Surgery type: Colectomy and tips; Patient HX: R sided abd pain TECHNIQUE: Imaging protocol: Computed tomography of the abdomen and pelvis with contrast. Radiation optimization: All CT scans at this facility use at least one of these dose optimization techniques: automated exposure control; mA and/or kV adjustment per patient size (includes targeted exams where dose is matched to clinical indication); or iterative reconstruction. Contrast material: OMNIPAQUE 350; Contrast volume: 100 ml; Contrast route: INTRAVENOUS (IV); COMPARISON: CT ABDOMEN PELVIS W 11/06/2023 11:35 PM FINDINGS: Liver: Hepatic cirrhosis. TIPS stent is patent. Gallbladder and bile ducts: Normal. No calcified stones. No ductal dilation. Pancreas: Unremarkable. Spleen: Splenomegaly. Adrenal glands: Normal. No mass. Kidneys and ureters: Normal. No hydronephrosis. Stomach and bowel: Left lower quadrant colostomy. Right mid abdominal ileocolic surgical asked Jeffery. High-grade distal small bowel obstruction with transition point in the lower abdomen, attributable to adhesion. No pneumatosis or portal/mesenteric venous gas. Appendix: Normal appendix. Intraperitoneal space: No pneumoperitoneum or abscess. Vasculature: SMV and SMA are patent as far as can be traced. Lymph nodes: Unremarkable. Urinary bladder: Unremarkable as visualized. Reproductive: Unremarkable as visualized. Bones/joints: Unremarkable. No acute fracture. Soft tissues: Chronic postsurgical changes of the anterior abdominal wall. IMPRESSION: 1. Hepatic cirrhosis with splenomegaly. 2. High-grade distal small bowel obstruction with transition point in the lower abdomen, attributable to adhesion. Dictated and Authenticated by: Junaid Antonio MD. Ordering:PIETER Cormier MD
--- NOTE | 2023-11-17 05:21 | ED.GENADUL_ITS ---
HPI General Mode of arrival: EMS . Date/Time Provider Initiated Documentation: 11/17/23 01:32 . Limitations to Documentation: no limitations . Information obtained by: patient and EMS . HPI Narrative: 78yo M with hx T2DM, afib, CHF, s/p colostomy, recurrent small bowel obstructions 2/t adhesions, presenting with acute abdominal pain x 1 day and vomiting x 2 hours. Received most of [place] care at the [place] [facility] normal yesterday. No output from ostomy today, worsening lower right abdominal pain. Overnight developed vomiting. Nonbloody nonbilious. Symptoms feel identical to prior bowel obstructions. He is otherwise in his usual state of health with no fevers, chills, rash, dysuria, hematuria, chest pain, shortness of breath, or other concerns. Related Data Home Medications Medication Instructions Recorded Confirmed apixaban 5 mg tablet (Eliquis) 5 mg PO BID 11/08/22 11/17/23 metformin 1,000 mg tablet 1,000 mg PO BID 11/08/22 11/17/23 pantoprazole 40 mg tablet,delayed 40 mg PO DAILY 11/08/22 11/17/23 release prazosin 5 mg capsule 10 mg PO QHS 11/08/22 11/17/23 pregabalin 50 mg capsule 50 mg PO BID 11/08/22 11/17/23 spironolactone 25 mg tablet 25 mg PO QAM 11/08/22 11/17/23 valsartan 40 mg tablet 40 mg PO BID 11/08/22 11/17/23 venlafaxine 150 mg 150 mg PO DAILY 11/08/22 11/17/23 capsule,extended release 24 hr tamsulosin 0.4 mg capsule 0.4 mg PO DAILY 11/29/22 11/17/23 nitroglycerin 0.4 mg sublingual 0.4 mg sublingual Q5 MIN PRN X3 02/10/23 11/17/23 tablet PRN #30 tabs ferrous sulfate 325 mg (65 mg 325 mg PO DAILY 03/08/23 11/17/23 iron) tablet empagliflozin 25 mg tablet 25 mg PO DAILY 04/09/23 11/17/23 furosemide 20 mg tablet (Lasix) 20 mg PO QAM 04/09/23 11/17/23 levothyroxine 200 mcg tablet 100 mcg (1/2 x 200 mcg) PO QAM #0 06/15/23 01/22/24 tabs miconazole nitrate 2 % topical 1 applic topical BID PRN 06/16/23 11/17/23 powder acetaminophen 325 mg capsule 650 mg (2 x 325 mg) PO Q8H PRN #0 06/17/23 11/17/23 (Tylenol) caps carvedilol 3.125 mg tablet 3.125 mg PO BID #0 tabs 06/17/23 11/17/23 rifaximin 550 mg tablet 550 mg PO BID 07/07/23 11/17/23 lidocaine 5 % topical patch 1 patch topical Q24H #7 ea 11/05/23 11/17/23 docusate sodium 100 mg capsule 100 mg PO BID #60 caps 11/09/23 11/17/23 (Colace) polyethylene glycol 3350 17 gram 17 g PO DAILY #30 ea 11/09/23 11/17/23 oral powder packet Previous Rx's Medication Instructions Recorded nitroglycerin 0.4 mg sublingual 0.4 mg sublingual Q5 MIN PRN X3 02/10/23 tablet PRN #30 tabs levothyroxine 200 mcg tablet 100 mcg (1/2 x 200 mcg) PO QAM #0 04/10/23 tabs acetaminophen 325 mg capsule 650 mg (2 x 325 mg) PO Q8H PRN #0 06/17/23 (Tylenol) caps carvedilol 3.125 mg tablet 3.125 mg PO BID #0 tabs 06/17/23 lidocaine 5 % topical patch 1 patch topical Q24H #7 ea 11/05/23 docusate sodium 100 mg capsule 100 mg PO BID #60 caps 11/09/23 (Colace) polyethylene glycol 3350 17 gram 17 g PO DAILY #30 ea 11/09/23 oral powder packet Allergies Allergy/AdvReac Type Severity Reaction Status Date / Time Penicillins Allergy Mild Itching Unverified 11/17/23 01:34 morphine AdvReac Severe vomiting Unverified 11/17/23 01:34 mussels AdvReac Severe vomiting Unverified 11/17/23 01:34 General Stated Complaint: Abd Prob ANNA: 3 Review of Systems Narrative: see HPI Exam Narrative Exam Narrative: General: Alert, well nourished Head: Normocephalic, atraumatic Neck: Trachea midline, ?Neck supple. ENT: ?MMM.? Cardiac: ?RRR, no murmurs appreciated Resp: No respiratory distress. CTAB. Abd: ?Soft, right lower and mid abdomen TTP. No RUQ tenderness. Ostomy in place, no output. : ?No suprapubic tenderness. Extremities: ?No deformities.? No peripheral edema. Neurologic: GCS 15. ? Moves all extremities freely against gravity Course Vital Signs Vital signs: Vital Signs Temperature 36.6 C 11/17/23 01:29 Pulse 82 11/17/23 01:29 Respiratory Rate 18 11/17/23 01:29 Blood Pressure 159/64 H 11/17/23 01:29 Pulse Oximetry 94 11/17/23 01:29 Temperature 36.6 C 11/17/23 01:46 Temperature Source Temporal Artery Scan 11/17/23 01:46 Pulse 82 11/17/23 01:46 Respiratory Rate 18 11/17/23 01:46 Respiratory Effort Normal, Non-Labored 11/17/23 01:32 Blood Pressure 159/64 H 11/17/23 01:46 Blood Pressure Position Supine 11/17/23 01:46 Pulse Oximetry 94 11/17/23 01:46 Oxygen Delivery Method Room Air 11/17/23 01:46 Oxygen Flow Rate 0 11/17/23 01:29 Pain Level 9 11/17/23 01:46 Lab/Test Results Lab/Test Results: Laboratory Tests Range/Units 11/17/23 03:24 WBC (4.4-10.8) 10^3/uL 7.98 RBC (4.36-5.78) 10^6/uL 4.98 Hgb (13.5-17.5) g/dL 15.0 Hct (40.0-50.0) % 43.6 MCV (80-95) fL 88 MCH (27.0-33.0) pg 30.1 MCHC (32.0-36.0) % 34.4 RDW (11.8-14.1) % 15.2 H Plt Count (130-400) 10^3/uL 95 L MPV (8.0-11.0) fL 11.0 Immature Gran % 0.4 Neutrophils % 77.7 Lymphocytes % 11.2 Monocytes % 6.4 Eosinophils % 3.9 Basophils % 0.4 Nucleated RBC % (0.0-0.3) % 0.0 Absolute Neutrophils (1.2-6.7) 10^3/uL 6.21 Absolute Lymphocytes (1.2-3.4) 10^3/uL 0.89 L Absolute Monocytes (0.1-0.8) 10^3/uL 0.51 Absolute Eosinophils (0.0-0.7) 10^3/uL 0.31 Absolute Basophils (0.0-0.2) 10^3/uL 0.03 RBC Morphology Normal VBG Lactate (0.9-1.7) MMOL/l 1.9 H Sodium (136-145) mmol/L 142 Potassium (3.5-5.1) mmol/L 3.6 Chloride (98-107) mmol/L 103 Carbon Dioxide (21.0-32.0) mmol/L 24.9 Anion Gap (3-11) mmol/L 14.1 H BUN (7-18) mg/dL 12 Creatinine (0.70-1.30) mg/dL 1.0 Est GFR (CKD-EPI 2020) (mL/min/1.73m2) 78.00 Glucose (74-106) mg/dL 196 H Calcium (8.5-10.1) mg/dL 10.3 H Total Bilirubin (0.2-1.0) mg/dL 2.5 H AST (15-37) U/L 27 ALT (16-63) U/L 16 Alkaline Phosphatase (46-116) U/L 136 H Total Protein (6.4-8.2) g/dL 7.4 Albumin (3.4-5.0) g/dL 3.3 L Lipase (16-77) U/L 97 H Medical Decision Making 78yo M with hx T2DM, afib, CHF, s/p colostomy, recurrent small bowel o bstructions 2/t adhesions, presenting with acute abdominal pain x 1 day and vomiting x 2 hours. History from patient, EMS, and [facility] record review. Did have admission here 11/07/23 for similar presentation, discharged after being managed medically with improvement in symptoms. Today his symptoms feel identical to prior bowel obstructions. Vital signs reassuring on arrival. Right abdomen tender with no guarding. Not septic, abdominal exam not peritoneal. High suspicion for recurrent SBO. NG tube placed and set to suction. Started on mIVF. Labs reviewed as below, CBC reassuring with no l eukocytosis or anemia; does have thrombocytopenia at baseline high 90's. CMP with no actionable abnormalities, bilirubin is slightly more elevated at 2.5 (1.7 on 11/08/23). Lipase not suggestive of pancreatitis. Lactate marginal at 2.1. CT independently reviewed, agree with radiology read below with SBO with transition point. Needs admission for IVF, medical management, non-emergent surgery consult; regrettably no beds at [facility] at this time. [facility], no capacity though they may have some tomorrow afternoon. [facility] also no capacity. [facility] no capacity. Continuing to try to locate appropriate facility for patient; if unable to identify may need to board in the ED here. Medical Records Medical records reviewed: Yes I reviewed the patient's medical records. Imaging Data Radiologic Study: Imaging: CT Scan Radiologist's impression: IMPRESSION: 1. Hepatic cirrhosis with splenomegaly. 2. High-grade distal small bowel obstruction with transition point in the lower abdomen, attributable to ad hesion. Lab Data Lab results reviewed: Yes I reviewed the patient's lab results. Labs: Laboratory Tests Range/Units 11/17/23 03:24 WBC (4.4-10.8) 10^3/uL 7.98 RBC (4.36-5.78) 10^6/uL 4.98 Hgb (13.5-17.5) g/dL 15.0 Hct (40.0-50.0) % 43.6 MCV (80-95) fL 88 MCH (27.0-33.0) pg 30.1 MCHC (32.0-36.0) % 34.4 RDW (11.8-14.1) % 15.2 H Plt Count (130-400) 10^3/uL 95 L MPV (8.0-11.0) fL 11.0 Immature Gran % 0.4 Neutrophils % 77.7 Lymphocytes % 11.2 Monocytes % 6.4 Eosinophils % 3.9 Basophils % 0.4 Nucleated RBC % (0.0-0.3) % 0.0 Absolute Neutrophils (1.2-6.7) 10^3/uL 6.21 Absolute Lymphocytes (1.2-3.4) 10^3/uL 0.89 L Absolute Monocytes (0.1-0.8) 10^3/uL 0.51 Absolute Eosinophils (0.0-0.7) 10^3/uL 0.31 Absolute Basophils (0.0-0.2) 10^3/uL 0.03 RBC Morphology Normal VBG Lactate (0.9-1.7) MMOL/l 1.9 H Sodium (136-145) mmol/L 142 Potassium (3.5-5.1) mmol/L 3.6 Chloride (98-107) mmol/L 103 Carbon Dioxide (21.0-32.0) mmol/L 24.9 Anion Gap (3-11) mmol/L 14.1 H BUN (7-18) mg/dL 12 Creatinine (0.70-1.30) mg/dL 1.0 Est GFR (CKD-EPI 2020) (mL/min/1.73m2) 78.00 Glucose (74-106) mg/dL 196 H Calcium (8.5-10.1) mg/dL 10.3 H Total Bilirubin (0.2-1.0) mg/dL 2.5 H AST (15-37) U/L 27 ALT (16-63) U/L 16 Alkaline Phosphatase (46-116) U/L 136 H Total Protein (6.4-8.2) g/dL 7.4 Albumin (3.4-5.0) g/dL 3.3 L Lipase (16-77) U/L 97 H Quality:SDOH Health Related Social Needs: Health related social needs inadequate housing, risk o f homeless, food insecurity, transpo insecurity, material hardship PFSH All Active Problems (Updated 11/10/23 @ 00:05 by JOSE LUIS REICH) Pre-syncope (Acute) Acute kidney injury (Acute) Frequent falls (Acute) Orthostatic hypotension (Acute) Chronic atrial fibrillation (Chronic) Type 2 diabetes mellitus (Chronic) Hypokalemia (Acute) Bradycardia (Acute) Multiple falls (Acute) Acute metabolic encephalopathy (Acute) Medication monitoring encounter (Acute) ANETTE (obstructive sleep apnea) (Chronic) Chest pain (Acute) CHF exacerbation (Acute) CHF (congestive heart failure) (Chronic) Medical History Creatinine elevation Acute UTI Anticoagulated COVID Chronic low back pain Recurrent intestinal obstruction History of colon cancer Palliative care encounter Followed by [facility] Chronic anticoagulation Portal hypertension Cirrhosis TIPs placed (?when, [facility]? 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 [place] . Discharge Plan Discharge Details Chief Complaint: Abd Prob Primary Care Provider: Maryann Whitt ED Provider: Genia Mari Home Meds and New Rx's Prescriptions: No Action venlafaxine 150 mg Capsule,Extended Release 24hr 150 mg PO DAILY spironolactone 25 mg Tablet 25 mg PO QAM prazosin 5 mg Capsule 10 mg PO QHS pantoprazole 40 mg Tablet,Delayed Release (Dr/Ec) 40 mg PO DAILY metformin 1,000 mg Tablet 1,000 mg PO BID valsartan 40 mg Tablet 40 mg PO BID pregabalin 50 mg Capsule 50 mg PO BID Eliquis 5 mg Tablet 5 mg PO BID nitroglycerin 0.4 mg Tablet, Sublingual 0.4 mg sublingual Q5 MIN PRN X3 PRNQty: 30 0RF miconazole nitrate 2 % Powder 1 applic TOPICAL BID PRN carvedilol 3.125 mg tablet 3.125 mg PO BID Qty: 0 0RF Patient Comments: TAKE 1 TABLET (3.125MG) BY MOUTH TWICE DAILY Rx Instructions: with meals acetaminophen [Tylenol] 325 mg Capsule 650 mg PO Q8H MDD 3000 PRNQty: 0 0RF rifaximin 550 mg Tablet 550 mg PO BID docusate sodium [Colace] 100 mg Capsule 100 mg PO BID Qty: 60 0RF polyethylene glycol 3350 17 gram Powder In Packet 17 g PO DAILY Qty: 30 0RF tamsulosin 0.4 mg Capsule 0.4 mg PO DAILY ferrous sulfate 325 mg (65 mg iron) Tablet 325 mg PO DAILY empagliflozin 25 mg Tablet 25 mg PO DAILY furosemide [Lasix] 20 mg tablet 20 mg PO QAM levothyroxine 200 mcg Tablet 100 mcg PO QAM Qty: 0 0RF lidocaine 5 % Adhesive Patch,Medicated 1 patch topical Q24H Qty: 7 0RF
[2023-11-17 06:53] LABS: Lactate 1.7 mmol/L (0.6-1.4)
--- NOTE | 2023-11-17 08:39 | HPE_ITS ---
Date of service: 11/17/23 Time of Service: 08:40 Assessment and Plan Assessment and plan (1) Small bowel obstruction: Status: Acute Assessment and plan: Merrill clearly has signs of another partial small bowel obstruction. Based on his history, I am optimistic we can attempt a trial of nonoperative management. Will do another Gastrografin challenge today similar to what he has undergone in the past, I did not reassess over the next 24 hours. History of Present Illness History of Present Illness Chief Complaint: Abdominal pain with nausea N arrative: Merrill is 78 years old, and he comes to the emergency department with abdominal pain and nausea. It is identical to episodes that he is experienced in the past with bowel obstruction. He says it started sometime Friday but became more intense this morning, and was associated with a decrease in his stoma output. He also felt like his abdomen was quite firm. While in the emergency department, he underwent a CAT scan of the abdomen and pelvis that demonstrated a partial small bowel obstruction. Review of Systems Constitutional Constitutional: Denies fever(s) and Reports poor appetite Eyes Eyes: Reports system reviewed and no additional complaints, except as documented ENT Ears, Nose, Mouth, and Throat: Reports system reviewed and no additional complaints, except as documented Cardiovascular Cardiovascular: Denies chest pain and Denies dyspnea Respiratory Respiratory: Denies chest congestion, Denies cough and Denies dyspnea Gastrointestinal Gastrointestinal: Reports abdominal pain, Reports belching, Reports change in bowel habits, Reports nausea and Denies vomiting Musculoskeletal Musculoskeletal: Reports system reviewed and no additional complaints, except as documented Psychiatric Psychiatric: Reports system reviewed and no additional complaints, except as documented Hematologic/Lymphatic Hematologic/Lymphatic: Denies easy bleeding and Denies easy bruising [facility] All Active Problems Small bowel obstruction (Acute) Pre-syncope (Acute) Acute kidney injury (Acute) Frequent falls (Acute) Orthostatic hypotension (Acute) Chronic atrial fibrillation (Chronic) Type 2 diabetes mellitus (Chronic) Hypokalemia (Acute) Bradycardia (Acute) Multiple falls (Acute) Acute metabolic encephalopathy (Acute) Medication monitoring encounter (Acute) ANETTE (obstructive sleep apnea) (Chronic) Chest pain (Acute) CHF exacerbation (Acute) CHF (congestive heart failure) (Chronic) Medical History Hypothyroidism Small bowel obstruction Lactic acid acidosis Creatinine elevation Acute UTI Anticoagulated COVID Chronic low back pain Recurrent intestinal obstruction History of colon cancer Palliative care encounter Followed by [facility] Chronic anticoagulation Portal hypertension Cirrhosis TIPs placed (?when, [facility]? 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 [place]. Meds Allergies and Home Medications Allergies Allergy/AdvReac Type Severity Reaction Status Date / Time Penicillins Allergy Mild Itching Unverified 11/17/23 01:34 morphine AdvReac Severe vomiting Unverified 11/17/23 01:34 mussels AdvReac Severe vomiting Unverified 11/17/23 01:34 Home Medications Medication Instructions Recorded Confirmed Type apixaban 5 mg tablet (Eliquis) 5 mg PO BID 11/08/22 11/17/23 History metformin 1,000 mg tablet 1,000 mg PO BID 11/08/22 11/17/23 History pantoprazole 40 mg tablet,delayed 40 mg PO DAILY 11/08/22 11/17/23 History release prazosin 5 mg capsule 10 mg PO QHS 11/08/22 11/17/23 History pregabalin 50 mg capsule 50 mg PO BID 11/08/22 11/17/23 History spironolactone 25 mg tablet 25 mg PO QAM 11/08/22 11/17/23 History valsartan 40 mg tablet 40 mg PO BID 11/08/22 11/17/23 History venlafaxine 150 mg 150 mg PO DAILY 11/08/22 11/17/23 History capsule,extended release 24 hr tamsulosin 0.4 mg capsule 0.4 mg PO DAILY 11/29/22 11/17/23 History nitroglycerin 0.4 mg sublingual 0.4 mg sublingual Q5 MIN PRN X3 02/10/23 11/17/23 Rx tablet PRN #30 tabs ferrous sulfate 325 mg (65 mg 325 mg PO DAILY 03/08/23 11/17/23 History iron) tablet empagliflozin 25 mg tablet 25 mg PO DAILY 04/09/23 11/17/23 History furosemide 20 mg tablet (Lasix) 20 mg PO QAM 04/09/23 11/17/23 History levothyroxine 200 mcg tablet 100 mcg (1/2 x 200 mcg) PO QAM #0 04/10/23 11/17/23 Rx tabs miconazole nitrate 2 % topical 1 applic topical BID PRN 06/16/23 11/17/23 History powder acetaminophen 325 mg capsule 650 mg (2 x 325 mg) PO Q8H PRN #0 06/17/23 11/17/23 Rx (Tylenol) caps carvedilol 3.125 mg tablet 3.125 mg PO BID #0 tabs 06/17/23 11/17/23 Rx rifaximin 550 mg tablet 550 mg PO BID 07/07/23 11/17/23 History lidocaine 5 % topical patch 1 patch topical Q24H #7 ea 11/05/23 11/17/23 Rx docusate sodium 100 mg capsule 100 mg PO BID #60 caps 11/09/23 11/17/23 Rx (Colace) polyethylene glycol 3350 17 gram 17 g PO DAILY #30 ea 11/09/23 11/17/23 Rx oral powder packet Exam Const General: cooperative and comfortable Nutritional Appearance: overweight Orientation: alert, awake and oriented x3 HENMT Head: normal to inspection Eyes General: appearance normal, both eyes and all related structures Neck Neck: normal visual inspection, full ROM and no lymphadenopathy Resp Effort & Inspection: normal respiratory effort and able to speak in complete sentences Auscultation: clear to auscultation bilaterally Cardio Rate: regular rate Rhythm: regular rhythm Heart Sounds: S1 normal and S2 normal GI Palpation: soft, no guarding and nontender Percussion: tympanic to percussion Auscultation: normal bowel sounds Skin General skin exam: no rashes or lesions noted Extrem Right lower extremity: no cyanosis and no edema Left lower extremity: no cyanosis and no edema Results Imaging Abdomen CT scan report/results: report reviewed and image reviewed CT scan - pelvis: report reviewed and image reviewed Labs 11/17/23 03:24 11/17/23 03:24 Labs: Laboratory Results - last 24 hr 11/17/23 11/17/23 03:24 06:50 WBC 7.98 RBC 4.98 Hgb 15.0 Hct 43.6 MCV 88 MCH 30.1 MCHC 34.4 RDW 15.2 H Plt Count 95 L MPV 11.0 Immature Gran % 0.4 Neutrophils % 77.7 Lymphocytes % 11.2 Monocytes % 6.4 Eosinophils % 3.9 Basophils % 0.4 Nucleated RBC % 0.0 Absolute Neutrophils 6.21 Absolute Lymphocytes 0.89 L Absolute Monocytes 0.51 Absolute Eosinophils 0.31 Absolute Basophils 0.03 RBC Morphology Normal VBG Lactate 1.9 H 1.7 H Sodium 142 Potassium 3.6 Chloride 103 Carbon Dioxide 24.9 Anion Gap 14.1 H BUN 12 Creatinine 1.0 Est GFR (CKD-EPI 2020) 78.00 Glucose 196 H Calcium 10.3 H Total Bilirubin 2.5 H AST 27 ALT 16 Alkaline Phosphatase 136 H Total Protein 7.4 Albumin 3.3 L Lipase 97 H Last Vital Signs Temp 97.9 F 11/17/23 01:46 Pulse 82 11/17/23 01:46 Resp 18 11/17/23 01:46 BP 159/64 H 11/17/23 01:46 Pulse Ox 88 L 11/17/23 06:10 Time Spent Time spent with Patient: 40-54 minutes Time was spent: preparing to see the patient(eg.review tests), ordering medications,tests, procedures, indepentently interpreting results and counseling the patient
[2023-11-17 09:58] LABS: INR 1.2 (0.9-1.1); PTT Activated 28.1 sec (23.6-32.8); Prothrombin Time 12.1 sec (9.1-11.1)
--- NOTE | 2023-11-17 13:30 | DI.RAD_ITS ---
Exam(s) XR ABDOMEN FLAT PLATE EXAM: 2D digital imaging was performed. CLINICAL HISTORY: Small bowel obstruction. COMPARISON: CT CT ABDOMEN PELVIS W from 11/17/2023 TECHNIQUE: Supine views of the abdomen performed. Portable. FINDINGS: Exam limited by patient body habitus. BOWEL GAS PATTERN: Mildly dilated bowel loop in low abdomen. Moderate quantity of stool. CALCIFICATIONS: No radiopaque calcifications. OSSEOUS STRUCTURES: Normal for age. OTHER FINDINGS: Tips. NG tube. Lung bases are clear. Residual contrast in urinary bladder. Scatte red surgical clips. IMPRESSION: No evidence of bowel obstruction by plain film however this was demonstrated on CT performed earlier the same day. DATA REPOSITORY: RADIATION DOSE DELIVERED:
[2023-11-17] MEDS: Ondansetron 4 MG/2 ML VIAL IVP (15:51)
[2023-11-17] MEDS: Gastrografin 120 ML BTL PO (15:51)
[2023-11-17] MEDS: Lactated Ringers 1,000 ML 75 ML IV (23:06)
[2023-11-18] MEDS: Gastrografin 120 ML BTL PO (00:01)
--- NOTE | 2023-11-18 01:43 | DI.VRAD_ITS ---
PROCEDURE INFORMATION: Exam: XR Abdomen Exam date and time: 11/18/2023 1:13 AM Age: 78 years old Clinical indication: Screening exam; Other: Gastrografin challenge; Prior surgery; Surgery date: 6+ months; Surgery type: Hemicolectomy; Patient HX: Gastrographin challenge, 1 hour post gastrografin TECHNIQUE: Imaging protocol: Radiologic exam of the abdomen. Views: Frontal supine view of the abdomen. 1 View. Other contrast: Oral, gastrographin, 50; COMPARISON: CR XR ABDOMEN FLAT PLATE 11/17/2023 2:17 PM FINDINGS: Gastrointestinal tract: Gastrografin is seen in the stomach and bowel loops. No dilatation or changes of obstruction. Bones/joints: Degenerative disease of the hip joints and symphysis pubis.. IMPRESSION: Gastrografin is seen in the stomach and bowel loops with no changes of bowel obstruction. Dictated and Authenticated by: Abe Nunn MD. Ordering:ALMITA Landry MD
[2023-11-18 03:00] VITALS: BP 115/73; PULSE 65; RESP 16; TEMP 36.6; O2SAT 93
[2023-11-18 07:43] LABS: HCT 40.4 % (40.0-50.0); HGB 13.4 g/dL (13.5-17.5); MCH 29.9 pg (27.0-33.0); MCHC 33.2 % (32.0-36.0); MCV 90 fL (80-95); MPV 11.2 fL (8.0-11.0); RBC 4.48 10^6/uL (4.36-5.78); RDW 15.6 % (11.8-14.1); RDW-SD 50.8 fL
[2023-11-18 07:48] VITALS: BP 190/76; PULSE 67; RESP 18; TEMP 36.7; O2SAT 91
[2023-11-18 08:07] LABS: Anion Gap 13.8 mmol/L (3-11); BUN 19 mg/dL (7-18); CO2 24.2 mmol/L (21.0-32.0); CREATININE 0.9 mg/dL (0.70-1.30); Chloride 111 mmol/L (98-107); Estimated GFR 88.51 (mL/min/1.73m2); Glucose 126 mg/dL (74-106); Potassium 3.6 mmol/L (3.5-5.1); Sodium 149 mmol/L (136-145)
[2023-11-18 08:13] LABS: Platelet Count 76 10^3/uL (130-400)
--- NOTE | 2023-11-18 08:51 | DI.RAD_ITS ---
Exam(s) XR ABDOMEN FLAT PLATE EXAM: 2D digital imaging was performed. CLINICAL HISTORY: gastrographin challenge. COMPARISON: CR,XR XR ABDOMEN FLAT PLATE from 11/18/2023 TECHNIQUE: Supine views of the abdomen was performed. Two images were obtained. FINDINGS: LUNG BASES: Clear. BOWEL GAS PATTERN: Nondistended. There is a small amount of remaining oral contrast present. There i s no evidence of obstruction. The patient has a left lower quadrant ostomy. FREE AIR: None. CALCIFICATIONS: No radiopaque calcifications. OSSEOUS STRUCTURES: Normal for age. Degenerative changes are seen in the spine and hips bilaterally. OTHER FINDINGS: There is a TIPS in the right upper quadrant. There is residual contrast seen in the urinary bladder from recent CT scan examination. Surgical clips are seen scattered in the abdomen. IMPRESSION: No evidence of bowel obstruction. DATA REPOSITORY: RADIATION DOSE DELIVERED:
[2023-11-18] MEDS: Normal Saline Flush 10 ML SYR IVP (09:45)
--- NOTE | 2023-11-18 11:03 | PDOC.CMIN ---
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 He is an [employer] and is 100% [facility] with [facility]. Merrill uses a walker for ambulatory assistance and is independent with his ADLs at baseline. ADVANCE DIRECTIVES:: Has Advanced directives but not on file at [facility]. 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 He will follow up with his community providers and plan of care and transport with family. CM will follow and continue to assess for discharge concerns. PFSH All Active Problems Small bowel obstruction (Acute) Pre-syncope (Acute) Acute kidney injury (Acute) Frequent falls (Acute) Orthostatic hypotension (Acute) Chronic atrial fibrillation (Chronic) Type 2 diabetes mellitus (Chronic) Hypokalemia (Acute) Bradycardia (Acute) Multiple falls (Acute) Acute metabolic encephalopathy (Acute) Medication monitoring encounter (Acute) ANETTE (obstructive sleep apnea) (Chronic) Chest pain (Acute) CHF exacerbation (Acute) CHF (congestive heart failure) (Chronic) Medical History Hypothyroidism Small bowel obstruction Lactic acid acidosis Creatinine elevation Acute UTI Anticoagulated COVID Chronic low back pain Recurrent intestinal obstruction History of colon cancer Palliative care encounter Followed by [facility] Chronic anticoagulation Portal hypertension Cirrhosis TIPs placed (?when, [facility] 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 [place]. SDOH(Care Management) Screening Will the Patient Participate in the Screening?: Yes Do you worry about having a steady place to live?: no In the past 12 months, have you had to go without electric, gas, oil or water in your home?: no Have you or anyone in your house had to go without enough food to eat?: no Has lack of transportation kept you from medical appointments or from doing things needed for daily living?: no Has anyone in your support network made you feel unsafe for any reason?: no
--- NOTE | 2023-11-18 13:50 | PGE_ITS ---
Date of Service Date of service: 11/18/23 Time of Service: 13:50 Assessment and Plan Assessment and plan (1) Small bowel obstruction: Status: Acute Assessment and plan: Merrill seems to be enjoying the solution of his partial small bowel obstruction. Hemodynamics and labs are all favorable, and I think he is in a good position to be discharged home. We reviewed basic precautions, and what to expect in the weeks to come. I think he has a good understanding of this, and he can follow- up with us as needed. Subjective Subjective Interval history since last seen: Merrill's feeling much better today. He continues to have function in his colostomy, and is tolerating a regular diet without any complaints. Repeat KUB today shows passage of a majority of the contrast. Exam GI Other: Abdomen is soft and less distended. He is got great bowel sounds. The stoma is quite productive. He is not tender Objective Last Vital Signs Temp 98.1 F 11/18/23 07:48 Pulse 67 11/18/23 07:48 Resp 18 11/18/23 07:48 BP 190/76 H 11/18/23 07:48 Pulse Ox 91 L 11/18/23 07:48 Laboratory Results - last 24 hr 11/18/23 05:50 WBC 6.80 RBC 4.48 Hgb 13.4 L Hct 40.4 MCV 90 MCH 29.9 MCHC 33.2 RDW 15.6 H Plt Count 76 L MPV 11.2 H Sodium 149 H Potassium 3.6 Chloride 111 H Carbon Dioxide 24.2 Anion Gap 13.8 H BUN 19 H Creatinine 0.9 Est GFR (CKD-EPI 2020) 88.51 Glucose 126 H Calcium 10.0 Time Spent with Patient Time Spent with Patient: <25 minutes Time was spent: preparing to see the patient(eg.review tests), indepentently interpreting results and counseling the patient
--- NOTE | 2023-11-18 13:52 | DSE_ITS ---
Date of service: 11/18/23 Time of Service: 13:52 DS: Diagnosis Discharge Diagnosis (1) Small bowel obstruction: Status: Acute Asessment and Plan: Resolved. Follow-up as needed Discharge Plan Disposition Patient Disposition: Home Condition: Good Discharge Details Reason For Visit: sbo Admit Date/Time: 11/17/23 12:33 Admit Provider: Frantz Berg Attending Provider: Frantz Berg Primary Care Provider: Maryann Whitt Hospital Course Hospital Course: Merrill is 78 years old, and is got past medical history is most significant for multiple recurrent partial small bowel obstructions. He comes to the hospital with acute onset of abdominal pain and distention, with decreased stoma output similar to what he is experienced in the past. Nasogastric tube was inserted that relieved his symptoms quite quickly. He was treated with Gastrografin challenge, and quickly had resolution of the bowel obstruction. Follow-up abdominal x-ray showed passage of the contrast out of the GI tract, with resolution of the bowel obstruction. He was able to tolerate a diet, was discharged home. Home Meds and New Rx's Prescriptions: Continued venlafaxine 150 mg Capsule,Extended Release 24hr 150 mg PO DAILY spironolactone 25 mg Tablet 25 mg PO QAM prazosin 5 mg Capsule 10 mg PO QHS pantoprazole 40 mg Tablet,Delayed Release (Dr/Ec) 40 mg PO DAILY metformin 1,000 mg Tablet 1,000 mg PO BID valsartan 40 mg Tablet 40 mg PO BID pregabalin 50 mg Capsule 50 mg PO BID Eliquis 5 mg Tablet 5 mg PO BID nitroglycerin 0.4 mg Tablet, Sublingual 0.4 mg sublingual Q5 MIN PRN X3 PRNQty: 30 0RF miconazole nitrate 2 % Powder 1 applic TOPICAL BID PRN carvedilol 3.125 mg tablet 3.125 mg PO BID Qty: 0 0RF Patient Comments: TAKE 1 TABLET (3.125MG) BY MOUTH TWICE DAILY Rx Instructions: with meals acetaminophen [Tylenol] 325 mg Capsule 650 mg PO Q8H MDD 3000 PRNQty: 0 0RF rifaximin 550 mg Tablet 550 mg PO BID docusate sodium [Colace] 100 mg Capsule 100 mg PO BID Qty: 60 0RF polyethylene glycol 3350 17 gram Powder In Packet 17 g PO DAILY Qty: 30 0RF tamsulosin 0.4 mg Capsule 0.4 mg PO DAILY ferrous sulfate 325 mg (65 mg iron) Tablet 325 mg PO DAILY empagliflozin 25 mg Tablet 25 mg PO DAILY furosemide [Lasix] 20 mg tablet 20 mg PO QAM levothyroxine 200 mcg Tablet 100 mcg PO QAM Qty: 0 0RF lidocaine 5 % Adhesive Patch,Medicated 1 patch topical Q24H Qty: 7 0RF Discharge Instructions Instructions: Bowel Obstruction (DC) Activity:: Activity as Tolerated Equipment/Supplies:: No Equipment Needed Diet:: As Tolerated DS: Summary Time Spent with Patient providing and/or coordinating discharge services: Less than 30 minutes Status at Discharge Functional status at discharge: independent ambulation Overall status at discharge: patient is back to baseline Mental Status: mental status grossly normal Speech and Movement: speech and movement normal Mood: congruent mood Affect: normal affect Quality:SDOH Health Related Social Needs: Health related social needs inadequate housing, risk o f homeless, food insecurity, transpo insecurity, material hardship Exam GI Other: Abdomen is soft and much less distended. He has good bowel sounds, with normal stoma output. Psych Mental Status: mental status grossly normal Speech and Movement: speech and movement normal Mood: congruent mood Affect: normal affect DS: Data Vitals/I&O Vitals and I&O: Vital Signs Temperature 98.1 F 11/18/23 07:48 Temperature Source Tympanic 11/18/23 07:48 Pulse 67 11/18/23 07:48 Pulse Rhythm Regular 11/18/23 10:31 Respiratory Rate 18 11/18/23 07:48 Respiratory Effort Normal, Non-Labored 11/18/23 10:31 Respiratory Depth Normal 11/18/23 10:31 Respiratory Pattern Normal 11/18/23 10:31 Blood Pressure 190/76 H 11/18/23 07:48 Blood Pressure Mean 82 11/17/23 12:25 Blood Pressure Position Supine 11/17/23 01:46 Pulse Oximetry 91 L 11/18/23 07:48 Oxygen Delivery Method Room Air 11/18/23 07:48 Oxygen Flow Rate 0 11/18/23 07:48 Pain Level 0 11/18/23 07:48 Intake & Output 11/17/23 11/18/23 11/18/23 23:59 11:59 23:59 Intake Total 1250 / 1250 Output Total 700 / 700 500 / 500 Balance -700 / 300 750 / 750 Intake: IV 1000 / 1000 Oral 250 / 250 Output: Gastric Drainage 400 / 400 Left Nare 400 / 400 Urine 300 / 300 500 / 500 Other: Urine Color Yellow Straw Urine Appearance Clear Clear Voiding Methods Toilet Urinal Data Completed and Pending Labs on day of discharge: Labs from last 24 hours 11/18/23 05:50 WBC 6.80 RBC 4.48 Hgb 13.4 L Hct 40.4 MCV 90 MCH 29.9 MCHC 33.2 RDW 15.6 H Plt Count 76 L MPV 11.2 H Sodium 149 H Potassium 3.6 Chloride 111 H Carbon Dioxide 24.2 Anion Gap 13.8 H BUN 19 H Creatinine 0.9 Est GFR (CKD-EPI 2020) 88.51 Glucose 126 H Calcium 10.0 PFSH All Active Problems Small bowel obstruction (Acute) Pre-syncope (Acute) Acute kidney injury (Acute) Frequent falls (Acute) Orthostatic hypotension (Acute) Chronic atrial fibrillation (Chronic) Type 2 diabetes mellitus (Chronic) Hypokalemia (Acute) Bradycardia (Acute) Multiple falls (Acute) Acute metabolic encephalopathy (Acute) Medication monitoring encounter (Acute) ANETTE (obstructive sleep apnea) (Chronic) Chest pain (Acute) CHF exacerbation (Acute) CHF (congestive heart failure) (Chronic) Medical History Hypothyroidism Small bowel obstruction Lactic acid acidosis Creatinine elevation Acute UTI Anticoagulated COVID Chronic low back pain Recurrent intestinal obstruction History of colon cancer Palliative care encounter Followed by [facility] Chronic anticoagulation Portal hypertension Cirrhosis TIPs placed (?when, [facility]? 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 [place] . Time Spent with Patient Time Spent with Patient: <45 minutes Time was spent: preparing to see the patient(eg.review tests), indepentently interpreting results and counseling the patient
--- NOTE | 2023-11-18 19:50 | PDOC.CMPRO ---
Date of service: 11/18/23 Time of Service: 19:51 Care Management Progress Note Progress Note Text Progress Note Text: Merrill was admitted yesterday for a small bowel obstruction. His symptoms improved over night and he was able to be discharged home this afternoon. He was driven home by his .
== END 2023-11-18 14:54 | disposition home or self-care (01) | DRG 389 ==
LOC: ER 08:18 → MS 11-18 05:32
PROVIDERS: Student in an Organized Health Care Education/Training Program; Admitting Provider Surgery; Emergency Provider Emergency Medicine; PCP Nurse Practitioner Adult Health; Visit Provider Surgery
DX: K56.600 Partial intestinal obstruction, unspecified as to cause (principal); E87.20 Acidosis, unspecified; N30.00 Acute cystitis without hematuria; I48.20 Chronic atrial fibrillation, unspecified; K76.6 Portal hypertension; I13.0 Hypertensive heart and chronic kidney disease with heart failure and stage 1 through stage 4 chronic kidney disease, or unspecified chronic kidney disease; E11.22 Type 2 diabetes mellitus with diabetic chronic kidney disease; Z79.01 Long term (current) use of anticoagulants; G47.33 Obstructive sleep apnea (adult) (pediatric); I50.9 Heart failure, unspecified; Z93.3 Colostomy status; Z90.49 Acquired absence of other specified parts of digestive tract; R29.6 Repeated falls; I95.1 Orthostatic hypotension; E87.6 Hypokalemia; M54.50 Low back pain, unspecified; G89.29 Other chronic pain; Z85.038 Personal history of other malignant neoplasm of large intestine; K74.60 Unspecified cirrhosis of liver; R32 Unspecified urinary incontinence; F32.A Depression, unspecified; Z95.828 Presence of other vascular implants and grafts; Z79.84 Long term (current) use of oral hypoglycemic drugs
CPT/HCPCS: 36415; 80048; 80053; 83690; 85027; 96361; 96374; 99285; 74018; 74177; 83605; 85025; 85610; 85730; J2405; J3010; J3490

== ENCOUNTER 2023-12-04 12:42 | Observation (INO) | payer OTHER, SELFPAY ==
[2023-12-04 13:01] VITALS: BP 169/74; PULSE 84; RESP 16; TEMP 36.7; O2SAT 97
--- NOTE | 2023-12-04 13:15 | DI.CT_ITS ---
Exam(s) CT ABDOMEN PELVIS W EXAM: CT ABDOMEN PELVIS W CLINICAL HISTORY: abdominal pain, ?sbo. TECHNIQUE: Imaging Protocol: Axial computed tomography images with coronal and sagittal reformatted images were created and reviewed CONTRAST MATERIAL: Intravenous: Omnipaque 350 Contrast volume:100 ml Oral / no COMPARISON: CT CT THORACIC LUMBAR SPINE REC from 11/03/[address] CHEST/ABD/PEL W from 11/03/[address] ABDOMEN PELVIS W from 11/06/2023 CR XR ABDOMEN FLAT PLATE from 11/17/[address] ABDOMEN PELVIS W from 11/17/2023 FINDINGS: ABDOMEN and PELVIS: Lung Bases: No acute findings. Liver: Normal density. No measurable mass. TIPS. Cirrhotic appearance. Small amount of surroundin g fluid. Gallbladder and biliary tract: No radiodense calculus or dilation. Pancreas: Normal density. No abnormal calcifications or inflammatory process. No evidence of mass. Spleen: Enlarged. Kidneys: Normal size, contour and axis. No radiodense stones. No obstructive uropathy. No suspicious masses seen. Adrenal glands: No masses seen. Vasculature: Abdominal aorta non-dilated. Soft tissues: Small fatty containing inguinal hernias. Bladder: No gross wall thickening. No calculi.No focal mass. Bowel: Dilatation of loop of small bowel in the anterior mid abdomen and wall thickening, similar to prior. Small bowel anastomosis in this area contains feculent material. Abrupt transition directly inferior to this location, at the upper aspect of the bladder. Bladder has a somewhat tethered appea jayro. Resection of rectosigmoid. Left-sided colostomy is unremarkable. Peritoneal cavity: No ascites. No focal collection or mesenteric inflammatory response. Bones: advanced degenerative changes. Reproductive organs: Within normal limits. Lymph nodes: Unremarkable. IMPRESSION:: Small-bowel obstruction dilated bowel loops in the mid to lower abdomen with transition point inferiorly, located directly above the bladder. This has a similar appearance to the prior exa m. RADIATION DOSE DELIVERED: 1,364.34mGy.cm Total DLP DATA REPOSITORY: All CT scans at this facility are submitted to the National Radiology Data Registry (NRDR) Dose Index Registry (DIR) with the [employer] (A[employer]). RADIATION OPTIMIZATION: All CT scans at this facility use at least one of these dose optimization te chniques: automated exposure control; mA and/or kV adjustment per patient size (includes targeted exa ms where dose is matched to clinical indication); or iterative reconstruction.
--- NOTE | 2023-12-04 13:17 | W.ED.GENAD ---
HPI General Mode of arrival: ambulatory. Date/Time Provider Initiated Documentation: 12/04/23 13:02. Limitations to Documentation: no limitations. Information obtained by: patient. History of Present Illness 78 year old M presents to the emergency department with the chief complaint of abdominal pain, described as moderate, Patient started experiencing this day(s) (1) and it has been constant. No relieving factors improve symptom(s), No exacerbating factors reported . Patient notes denies chest pain, fever/chills and shortness of breath. Patient did receive the following treatments prior to arrival, none Related Data Home Medications Medication Instructions Recorded Confirmed apixaban 5 mg tablet (Eliquis) 5 mg PO BID 11/08/22 11/17/23 metformin 1,000 mg tablet 1,000 mg PO BID 11/08/22 12/04/23 pantoprazole 40 mg tablet,delayed 40 mg PO DAILY 11/08/22 12/04/23 release prazosin 5 mg capsule 10 mg PO QHS 11/08/22 12/04/23 pregabalin 50 mg capsule 50 mg PO BID 11/08/22 12/04/23 tamsulosin 0.4 mg capsule 0.4 mg PO DAILY 11/29/22 12/04/23 nitroglycerin 0.4 mg sublingual 0.4 mg sublingual Q5 MIN PRN X3 02/10/23 12/04/23 tablet PRN #30 tabs ferrous sulfate 325 mg (65 mg 325 mg PO DAILY 03/08/23 12/04/23 iron) tablet empagliflozin 25 mg tablet 25 mg PO DAILY 04/09/23 12/04/23 furosemide 20 mg tablet (Lasix) 20 mg PO QAM 04/09/23 12/04/23 levothyroxine 200 mcg tablet 100 mcg (1/2 x 200 mcg) PO QAM #0 04/10/23 12/04/23 tabs miconazole nitrate 2 % topical 1 applic topical BID PRN 06/16/23 12/04/23 powder acetaminophen 325 mg capsule 650 mg (2 x 325 mg) PO Q8H PRN #0 06/17/23 12/04/23 (Tylenol) caps carvedilol 3.125 mg tablet 3.125 mg PO BID #0 tabs 06/17/23 12/04/23 rifaximin 550 mg tablet 550 mg PO BID 07/07/23 12/04/23 docusate sodium 100 mg capsule 100 mg PO BID #60 caps 11/09/23 12/04/23 (Colace) Previous Rx's Medication Instructions Recorded nitroglycerin 0.4 mg sublingual 0.4 mg sublingual Q5 MIN PRN X3 02/10/23 tablet PRN #30 tabs levothyroxine 200 mcg tablet 100 mcg (1/2 x 200 mcg) PO QAM #0 04/10/23 tabs acetaminophen 325 mg capsule 650 mg (2 x 325 mg) PO Q8H PRN #0 06/17/23 (Tylenol) caps carvedilol 3.125 mg tablet 3.125 mg PO BID #0 tabs 06/17/23 docusate sodium 100 mg capsule 100 mg PO BID #60 caps 11/09/23 (Colace) Allergies Allergy/AdvReac Type Severity Reaction Status Date / Time Penicillins Allergy Mild Itching Unverified 11/17/23 01:34 morphine AdvReac Severe vomiting Unverified 11/17/23 01:34 mussels AdvReac Severe vomiting Unverified 11/17/23 01:34 General Stated Complaint: Abd Prob ANNA: 3 Review of Systems All systems reviewed & are unremarkable except as noted in HPI and below Constitutional Constitutional: Denies chills, Denies fever(s) and Denies weakness Cardiovascular Cardiovascular: Denies chest pain and Denies dyspnea Respiratory Respiratory: Denies cough and Denies dyspnea Gastrointestinal Gastrointestinal: Reports abdominal pain and Denies vomiting Musculoskeletal Musculoskeletal: Denies joint swelling Neurologic Neurologic: Denies weakness Exam Const General: no acute distress Orientation: alert [facility] Head: normal to inspection Ears: external ears normal General nose exam: external nose normal Mouth: moist mucous membranes Eyes General: appearance normal, both eyes and all related structures Neck Neck: normal visual inspection Resp Effort & Inspection: normal respiratory effort and able to speak in complete sentences Cardio Rate: regular rate GI Palpation: tender Skin General skin exam: no rashes or lesions noted Neuro General: patient alert and patient oriented x3 Extrem General: normal to inspection Psych Mental Status: mental status grossly normal Course Vital Signs Vital signs: Vital Signs Temperature 36.7 C 12/04/23 13:01 Pulse 84 12/04/23 13:01 Respiratory Rate 16 12/04/23 13:01 Blood Pressure 169/74 H 12/04/23 13:01 Pulse Oximetry 97 12/04/23 13:01 Temperature 36.7 C 12/04/23 13:01 Temperature Source Skin 12/04/23 13:01 Pulse 84 12/04/23 13:01 Respiratory Rate 16 12/04/23 13:01 Blood Pressure 169/74 H 12/04/23 13:01 Blood Pressure Position Sitting 12/04/23 13:01 Pulse Oximetry 97 12/04/23 13:01 Oxygen Delivery Method Room Air 12/04/23 13:01 Oxygen Flow Rate 0 12/04/23 13:01 Pain Level 6 12/04/23 13:01 Medical Decision Making 78-year-old male with a history of a prior ostomy and multiple bowel obstructions, last being 2 to 3 weeks ago, comes in with what he feels is another bowel obstruction. He states last night he started having intermittent abdominal pain which resolved but then this morning had constant left-sided abdominal pain and no output in his ostomy similar to prior episodes of his bowel obstruction. He denies any chest pain difficulty breathing vomiting though he does have some nausea. He is alert and oriented x 4 speaking clearly on arrival his abdomen does feel slightly distended with some tenderness on the left side does not have any output in his ostomy no guarding or rebound tenderness. Suspect he has recurrent bowel obstruction we will proceed with CBC CMP lipase and CT abdomen pelvis to further evaluate labs show lactate of 5.0, will recheck after iv fluid repletion. CT shows recurrent small bowel, pt stable, no vomiting still, will see if CT has bed availability pt stable and prefers to stay here, CT states they don't have capacity to take him, discussed with Dr. Berg general surgeon who plans to admit patient Differential Diagnosis Differential Diagnosis: sbo, pancreatitis Medical Records Medical records reviewed: Yes I reviewed the patient's medical records. Imaging Data Radiologic Study: Attestation: I personally reviewed and interpreted this imaging study as follows: Imaging: CT Scan Radiologist's impression: IMPRESSION:: Small-bowel obstruction dilated bowel loops in the mid to lower abdomen with transition point inferiorly, located directly above the bladder. This has a similar appearance to the prior exam. Quality:SDOH Health Related Social Needs: Health related social needs inadequate housing, risk of homeless, food insecurity, transpo insecurity, material hardship PFSH All Active Problems (Updated 12/04/23 @ 16:20 by Kevin Morrissey MD) Small bowel obstruction (Acute) Pre-syncope (Acute) Acute kidney injury (Acute) Frequent falls (Acute) Orthostatic hypotension (Acute) Chronic atrial fibrillation (Chronic) Type 2 diabetes mellitus (Chronic) Hypokalemia (Acute) Bradycardia (Acute) Multiple falls (Acute) Acute metabolic encephalopathy (Acute) Medication monitoring encounter (Acute) ANETTE (obstructive sleep apnea) (Chronic) Chest pain (Acute) CHF exacerbation (Acute) CHF (congestive heart failure) (Chronic) Medical History Hypothyroidism Small bowel obstruction Lactic acid acidosis Creatinine elevation Acute UTI Anticoagulated COVID Chronic low back pain Recurrent intestinal obstruction History of colon cancer Palliative care encounter Followed by [facility] Chronic anticoagulation Portal hypertension Cirrhosis TIPs placed (?when, [facility]? 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 [place]. Discharge Plan Disposition Patient Disposition: Admit to [facility] Condition: Stable Discharge Details Clinical Impression: Small bowel obstruction Primary Care Provider: Maryann Whitt ED Provider: Kevin Morrissey [place] Meds and New Rx's Prescriptions: No Action prazosin 5 mg Capsule 10 mg PO QHS pantoprazole 40 mg Tablet,Delayed Release (Dr/Ec) 40 mg PO DAILY metformin 1,000 mg Tablet 1,000 mg PO BID pregabalin 50 mg Capsule 50 mg PO BID Eliquis 5 mg Tablet 5 mg PO BID nitroglycerin 0.4 mg Tablet, Sublingual 0.4 mg sublingual Q5 MIN PRN X3 PRNQty: 30 0RF miconazole nitrate 2 % Powder 1 applic TOPICAL BID PRN carvedilol 3.125 mg tablet 3.125 mg PO BID Qty: 0 0RF Patient Comments: TAKE 1 TABLET (3.125MG) BY MOUTH TWICE DAILY Rx Instructions: with meals acetaminophen [Tylenol] 325 mg Capsule 650 mg PO Q8H MDD 3000 PRNQty: 0 0RF Hold Instructions: Changed by Provider rifaximin 550 mg Tablet 550 mg PO BID docusate sodium [Colace] 100 mg Capsule 100 mg PO BID Qty: 60 0RF tamsulosin 0.4 mg Capsule 0.4 mg PO DAILY ferrous sulfate 325 mg (65 mg iron) Tablet 325 mg PO DAILY empagliflozin 25 mg Tablet 25 mg PO DAILY furosemide [Lasix] 20 mg tablet 20 mg PO QAM levothyroxine 200 mcg Tablet 100 mcg PO QAM Qty: 0 0RF
[2023-12-04 13:34] LABS: Abs Immature Grans 0.03 10^3/uL (0.0-0.06); Absolute Basophil Count 0.04 10^3/uL (0.0-0.2); Absolute Lymphocyte Count 0.79 10^3/uL (1.2-3.4); Absolute Monocyte Count 0.46 10^3/uL (0.1-0.8); Absolute Neutrophil Count 3.25 10^3/uL (1.2-6.7); Basophils % 0.8; Eosinophils % 6.2; HCT 41.6 % (40.0-50.0); HGB 14.2 g/dL (13.5-17.5); Immature Grans % 0.6; Lymphocytes % 16.2; MCHC 34.1 % (32.0-36.0); MCV 88 fL (80-95); MPV 10.4 fL (8.0-11.0); Monocytes % 9.4; Neutrophils % 66.8; RBC 4.73 10^6/uL (4.36-5.78); RDW 15.7 % (11.8-14.1); RDW-SD 51.1 fL; WBC 4.87 10^3/uL (4.4-10.8)
[2023-12-04] MEDS: fentaNYL 100 MCG/2 ML VIAL 75 MCG IVP (13:41)
[2023-12-04 13:52] LABS: INR 1.2 (0.9-1.1); PTT Activated 28.4 sec (23.6-32.8); Prothrombin Time 11.6 sec (9.1-11.1)
[2023-12-04] MEDS: Normal Saline - Diluent 50 ML VIAL IJ (13:53)
[2023-12-04 13:57] LABS: Platelet Count 63 10^3/uL (130-400)
[2023-12-04] MEDS: Omnipaque 350 MG/ML 100 ML BTL IJ (13:57)
[2023-12-04 13:58] LABS: Diff Comment Diff Reviewed; RBC Morphology Normal
[2023-12-04 14:07] LABS: ALT 21 U/L (16-63); AST 43 U/L (15-37); Albumin 3.3 g/dL (3.4-5.0); Alkaline Phosphatase 117 U/L (46-116); Anion Gap 16.8 mmol/L (3-11); BUN 11 mg/dL (7-18); Bilirubin, Total 2.4 mg/dL (0.2-1.0); CO2 21.2 mmol/L (21.0-32.0); Calcium 9.4 mg/dL (8.5-10.1); Chloride 108 mmol/L (98-107); Glucose 140 mg/dL (74-106); Lipase 94 U/L (16-77); Magnesium 1.9 mg/dL (1.8-2.4); Potassium 3.5 mmol/L (3.5-5.1); Sodium 146 mmol/L (136-145); TSH (W/Ref FT4) 5.31 uIU/mL (0.36-3.74); Total Protein 7.2 g/dL (6.4-8.2)
[2023-12-04] MEDS: Normal Saline 1,000 ML 1000 ML IV (14:22)
[2023-12-04 14:27] LABS: FREE T4 1.27 ng/dL (0.76-1.46)
[2023-12-04] MEDS: fentaNYL 100 MCG/2 ML VIAL 50 MCG IVP (15:22)
--- NOTE | 2023-12-04 16:23 | HPE_ITS ---
Date of service: 12/04/23 Time of Service: 16:23 Assessment and Plan Assessment and plan (1) Small bowel obstruction: Status: Acute Assessment and plan: I suspect this is really the same pathology the polyps been experience all along. Unfortunately, considering extremely high risk for laparotomy with lysis of adhesions given his medical comorbidities, and the complexity of his previous surgeries. If that were the case, I would recommend that he seek the opinion of an expert at tertiary care center with more resources to support him through that operation. At this point, however, we will continue to care for evidence of partial small bowel obstruction. I will try another Gastrografin challenge which we have used in the past with success. Will repeat a serum lactate since it was elevated here after some gentle resuscitation. History of Present Illness History of Present Illness Chief Complaint: abdominal pain Narrative: Merrill is 78 years old, he comes to the emergency department with 1 day of abdominal pain that is the same that he is experienced on multiple episodes in the past. Is all been associated with partial small bowel obstructions. His last hospital admission was just about 17 days ago. He was treated with a Gastrografin challenge at that time, and had a favorable response with resolution of abdominal pain, return of bowel function into his stoma, and tolerance of a diet. Since that discharge, he has been feeling well. He has been tolerating food without any issue. Yesterday, he developed some nonspecific abdominal pain, that continued through this morning. This was associated with decreased colostomy output. So he came to the emergency department. He underwent a CT scan that demonstrated some dilation of the small bowel, but appears consistent with most of his previous CT scans. Review of Systems Constitutional Constitutional: Denies body ache(s), Denies fatigue, Denies fever(s) and Denies poor appetite Eyes Eyes: Reports system reviewed and no additional complaints, except as documented ENT Ears, Nose, Mouth, and Throat: Reports system reviewed and no additional complaints, except as documented Cardiovascular Cardiovascular: Denies chest pain and Denies dyspnea Respiratory Respiratory: Denies chest congestion, Denies cough and Denies dyspnea Gastrointestinal Gastrointestinal: Reports abdominal pain, Reports change in stool character, Denies nausea and Denies vomiting Genitourinary Genitourinary: Reports system reviewed and no additional complaints, except as documented Musculoskeletal Musculoskeletal: Reports system reviewed and no additional complaints, except as documented Neurologic Neurologic: Reports system reviewed and no additional complaints, except as documented Psychiatric Psychiatric: Reports system reviewed and no additional complaints, except as documented Endocrine Endocrine: Reports system reviewed and no additional complaints, except as documented and Denies fatigue Hematologic/Lymphatic Hematologic/Lymphatic: Denies easy bleeding and Denies easy bruising PFSH All Active Problems Small bowel obstruction (Acute) Pre-syncope (Acute) Acute kidney injury (Acute) Frequent falls (Acute) Orthostatic hypotension (Acute) Chronic atrial fibrillation (Chronic) Type 2 diabetes mellitus (Chronic) Hypokalemia (Acute) Bradycardia (Acute) Multiple falls (Acute) Acute metabolic encephalopathy (Acute) Medication monitoring encounter (Acute) ANETTE (obstructive sleep apnea) (Chronic) Chest pain (Acute) CHF exacerbation (Acute) CHF (congestive heart failure) (Chronic) Medical History Hypothyroidism Small bowel obstruction Lactic acid acidosis Creatinine elevation Acute UTI Anticoagulated COVID Chronic low back pain Recurrent intestinal obstruction History of colon cancer Palliative care encounter Followed by [facility] Chronic anticoagulation Portal hypertension Cirrhosis TIPs placed (?when, [facility]? 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 [place] . Meds Allergies and Home Medications Allergies Allergy/AdvReac Type Severity Reaction Status Date / Time Penicillins Allergy Mild Itching Unverified 11/17/23 01:34 morphine AdvReac Severe vomiting Unverified 11/17/23 01:34 mussels AdvReac Severe vomiting Unverified 11/17/23 01:34 Home Medications Medication Instructions Recorded Confirmed Type apixaban 5 mg tablet (Eliquis) 5 mg PO BID 11/08/22 11/17/23 History metformin 1,000 mg tablet 1,000 mg PO BID 11/08/22 12/04/23 History pantoprazole 40 mg tablet,delayed 40 mg PO DAILY 11/08/22 12/04/23 History release prazosin 5 mg capsule 10 mg PO QHS 11/08/22 12/04/23 History pregabalin 50 mg capsule 50 mg PO BID 11/08/22 12/04/23 History tamsulosin 0.4 mg capsule 0.4 mg PO DAILY 11/29/22 12/04/23 History nitroglycerin 0.4 mg sublingual 0.4 mg sublingual Q5 MIN PRN X3 02/10/23 12/04/23 Rx tablet PRN #30 tabs ferrous sulfate 325 mg (65 mg 325 mg PO DAILY 03/08/23 12/04/23 History iron) tablet empagliflozin 25 mg tablet 25 mg PO DAILY 04/09/23 12/04/23 History furosemide 20 mg tablet (Lasix) 20 mg PO QAM 04/09/23 12/04/23 History levothyroxine 200 mcg tablet 100 mcg (1/2 x 200 mcg) PO QAM #0 04/10/23 12/04/23 Rx tabs miconazole nitrate 2 % topical 1 applic topical BID PRN 06/16/23 12/04/23 History powder acetaminophen 325 mg capsule 650 mg (2 x 325 mg) PO Q8H PRN #0 06/17/23 12/04/23 Rx (Tylenol) caps carvedilol 3.125 mg tablet 3.125 mg PO BID #0 tabs 06/17/23 12/04/23 Rx rifaximin 550 mg tablet 550 mg PO BID 07/07/23 12/04/23 History docusate sodium 100 mg capsule 100 mg PO BID #60 caps 11/09/23 12/04/23 Rx (Colace) Exam Const General: cooperative Orientation: alert, awake and oriented x3 Cardio Rate: regular rate Rhythm: regular rhythm Heart Sounds: S1 normal and S2 normal GI Inspection: non-distended Palpation: soft and nontender Percussion: dullness to percussion Auscultation: normal bowel sounds Results Labs 12/04/23 13:25 12/04/23 13:25 Labs: Laboratory Results - last 24 hr 12/04/23 13:25 WBC 4.87 RBC 4.73 Hgb 14.2 Hct 41.6 MCV 88 MCH 30.0 MCHC 34.1 RDW 15.7 H Plt Count 63 L MPV 10.4 Immature Gran % 0.6 Neutrophils % 66.8 Lymphocytes % 16.2 Monocytes % 9.4 Eosinophils % 6.2 Basophils % 0.8 Nucleated RBC % 0.0 Absolute Neutrophils 3.25 Absolute Lymphocytes 0.79 L Absolute Monocytes 0.46 Absolute Eosinophils 0.30 Absolute Basophils 0.04 RBC Morphology Normal PT 11.6 H INR 1.2 H APTT 28.4 VBG Lactate 5.0 H* Sodium 146 H Potassium 3.5 Chloride 108 H Carbon Dioxide 21.2 Anion Gap 16.8 H BUN 11 Creatinine 1.0 Est GFR (CKD-EPI 2020) 78.00 Glucose 140 H Calcium 9.4 Magnesium 1.9 Total Bilirubin 2.4 H AST 43 H ALT 21 Alkaline Phosphatase 117 H Total Protein 7.2 Albumin 3.3 L Lipase 94 H TSH 5.31 H Free T4 1.27 Last Vital Signs Temp 98.1 F 12/04/23 13:01 Pulse 84 12/04/23 13:01 Resp 16 12/04/23 13:01 BP 169/74 H 12/04/23 13:01 Pulse Ox 97 12/04/23 13:01 PAWSS Have you Been Recently Intoxicated or Drunk Within the Last 30 days?: No Have you Ever Experienced Previous Episodes of Alcohol Withdrawal?: No Have you ever Experienced Withdrawal Seizures?: No Have you ever Experienced Delirium Tremens(DT)s?: No Have you ever undergone Alcohol Rehabilitation Treatment (i.e, inpt ot outpatient treatment programs)?: No Have you ever Experienced Blackouts?: No Have you ever Combined Alcohol with other Downers within the last 90 days?: No Have you ever Combined Alcohol with any other Substance of Abuse during the last 90 days?: No Positive Blood Alcohol level on Presentation? [PCS.BAL]: No Evidence of Increased Autonomic Activity (i.e. HR>120, tremor, sweating, agitation, nausea)?: No Result: 0 Time Spent Time spent with Patient: <40 minutes Time was spent: preparing to see the patient(eg.review tests), obtaining and/or reviewing separately otained hiistory, indepentently interpreting results and counseling the patient
[2023-12-04 18:26] VITALS: BP 198/84; PULSE 78; RESP 18; TEMP 37; O2SAT 95
[2023-12-04] MEDS: Carvedilol 3.125 MG TAB PO (19:31)
[2023-12-04] MEDS: Pregabalin 50 MG CAP PO (19:31)
[2023-12-04] MEDS: Acetaminophen 500 MG TAB 1000 MG PO (19:31)
[2023-12-04] MEDS: Heparin 5,000 UNITS/ML VIAL 5000 UNITS SC (19:32)
[2023-12-04] MEDS: Rifaximin 550 MG TAB PO (19:32)
[2023-12-04] MEDS: Lactated Ringers 1,000 ML 75 ML IV (19:32)
[2023-12-04] MEDS: Docusate Sodium 100 MG CAP PO (19:32)
[2023-12-04] MEDS: Normal Saline Flush 10 ML SYR IVP (19:36)
--- NOTE | 2023-12-04 20:00 | RESPIRATORY ---
RT seen pt. for ANETTE diagnosis. Pt. states supposed to get a new device despite been using the old model of CPAP machine. RT convinced pt. to use hospital one tonight, pt. refused it by saying he will be okay without it tonight. Also advices family member will bring the HU if he is going to stay more night here. [facility].
[2023-12-04 22:25] VITALS: BP 179/83; PULSE 67; RESP 18; TEMP 36.7; O2SAT 91
[2023-12-04] MEDS: Gastrografin 120 ML BTL PO (22:27)
[2023-12-04] MEDS: Prazosin 5 MG CAP 10 MG PO (22:27)
[2023-12-05 05:52] VITALS: BP 145/72; PULSE 69; RESP 16; TEMP 36.5; O2SAT 92
[2023-12-05] MEDS: Levothyroxine 100 MCG TAB (05:53)
[2023-12-05] MEDS: Acetaminophen 500 MG TAB 1000 MG PO (05:53)
[2023-12-05 07:41] LABS: Abs Immature Grans 0.01 10^3/uL (0.0-0.06); Absolute Basophil Count 0.03 10^3/uL (0.0-0.2); Absolute Eosinophil Count 0.32 10^3/uL (0.0-0.7); Absolute Lymphocyte Count 0.85 10^3/uL (1.2-3.4); Absolute Monocyte Count 0.48 10^3/uL (0.1-0.8); Absolute Neutrophil Count 2.67 10^3/uL (1.2-6.7); Basophils % 0.7; Eosinophils % 7.3; HCT 37.6 % (40.0-50.0); Immature Grans % 0.2; Lymphocytes % 19.5; MCH 30.9 pg (27.0-33.0); MCHC 34.6 % (32.0-36.0); MCV 89 fL (80-95); MPV 11.1 fL (8.0-11.0); Neutrophils % 61.3; RBC 4.21 10^6/uL (4.36-5.78); RDW 15.9 % (11.8-14.1); WBC 4.36 10^3/uL (4.4-10.8)
[2023-12-05 07:53] LABS: Anion Gap 16.5 mmol/L (3-11); BUN 13 mg/dL (7-18); CO2 19.5 mmol/L (21.0-32.0); CREATININE 0.9 mg/dL (0.70-1.30); Calcium 9.1 mg/dL (8.5-10.1); Chloride 112 mmol/L (98-107); Estimated GFR 88.51 (mL/min/1.73m2); Glucose 116 mg/dL (74-106); Potassium 3.5 mmol/L (3.5-5.1); Sodium 148 mmol/L (136-145)
[2023-12-05 08:02] LABS: Platelet Count 63 10^3/uL (130-400)
[2023-12-05 08:03] LABS: Diff Comment Diff Reviewed; RBC Morphology Normal
--- NOTE | 2023-12-05 09:09 | DI.RAD_ITS ---
Exam(s) XR ABDOMEN FLAT PLATE EXAM: XR ABDOMEN FLAT PLATE CLINICAL HISTORY: bowel obstruction. TECHNIQUE: 2D digital imaging was performed. COMPARISON: CR XR ABDOMEN FLAT PLATE from 11/18/[address] ABDOMEN PELVIS W from 12/04/2023 FINDINGS: Supine view: There is a TIPS stent in the liver noted. This patient has had prior partial colectomy and left-side d colostomy. There are still dilated bowel loops in the central pelvis. There is contrast evident in what appears to be the hepatic flexure and proximal transverse colon. There is no oral contrast evident on yeste rday's CT scan so this has probably been administered orally since yesterday. Graft there is some co ntrast in the urinary bladder from yesterday's contrast infused CT scan. IMPRESSION: As above. There are still dilated bowel loops in the central pelvis as seen on yesterday's CT scan. However, there is oral contrast in the right-side of the colon which most probably has been administ ered orally since the CT scan yesterday and this would indicate that there is no high-grade small-bow el obstruction. Please note that future images should be performed upright if clinically possible (w hich is significantly better for determining extend of bowel obstruction and to determine if there is free air). DATA REPOSITORY: RADIATION DOSE DELIVERED:
[2023-12-05] MEDS: Heparin 5,000 UNITS/ML VIAL 5000 UNITS SC (09:15)
[2023-12-05] MEDS: Pregabalin 50 MG CAP PO (09:16)
[2023-12-05] MEDS: Empaglifozin 25 MG TAB PO (09:16)
[2023-12-05] MEDS: Normal Saline Flush 10 ML SYR IVP (09:16)
[2023-12-05] MEDS: Carvedilol 3.125 MG TAB PO (09:16)
[2023-12-05] MEDS: Tamsulosin 0.4 MG CAPCR PO (09:16)
[2023-12-05] MEDS: Pantoprazole 40 MG TABCR PO (09:16)
[2023-12-05] MEDS: Rifaximin 550 MG TAB PO (09:16)
[2023-12-05 09:17] VITALS: BP 170/80; PULSE 64; RESP 17; TEMP 36; O2SAT 92
[2023-12-05] MEDS: Ferrous Sulfate 325 MG TAB PO (09:17)
[2023-12-05] MEDS: Docusate Sodium 100 MG CAP PO (09:17)
[2023-12-05] MEDS: Furosemide 20 MG TAB PO (09:17)
--- NOTE | 2023-12-05 09:59 | W.PM.PROGNOT ---
Date of Service Date of service: 12/05/23 Time of Service: 09:59 Assessment and Plan Assessment and plan (1) Small bowel obstruction: Status: Acute Assessment and plan: Appears that obstruction has opened up and he has had 2 copious sized BMs. Denies abdominal pain, nausea or vomiting. [facility]ed that [facility] given the frequency of his obstructions. Will start soft diet. D/C home and he will need [facility] with the [facility]. Subjective Subjective Interval history since last seen: Arrived with patient resting in bed. He reports that he has been able to pass stool. He is feeling much better today. He denies having any nausea or vomiting at this time. Exam Const General: cooperative, healthy appearing and comfortable Orientation: alert and oriented x3 Resp Effort & Inspection: normal respiratory effort, no audible wheezes and no cough GI Inspection: normal to inspection Palpation: soft, no guarding and nontender Objective Last Vital Signs Temp 36.0 C L 12/05/23 09:17 Pulse 64 12/05/23 09:17 Resp 17 12/05/23 09:17 BP 170/80 H 12/05/23 09:17 Pulse Ox 92 12/05/23 09:17 Laboratory Results - last 24 hr 12/04/23 12/04/23 12/05/23 13:25 16:17 07:04 WBC 4.87 4.36 L RBC 4.73 4.21 L Hgb 14.2 13.0 L Hct 41.6 37.6 L MCV 88 89 MCH 30.0 30.9 MCHC 34.1 34.6 RDW 15.7 H 15.9 H Plt Count 63 L 63 L MPV 10.4 11.1 H Immature Gran % 0.6 0.2 Neutrophils % 66.8 61.3 Lymphocytes % 16.2 19.5 Monocytes % 9.4 11.0 Eosinophils % 6.2 7.3 Basophils % 0.8 0.7 Nucleated RBC % 0.0 0.0 Absolute Neutrophils 3.25 2.67 Absolute Lymphocytes 0.79 L 0.85 L Absolute Monocytes 0.46 0.48 Absolute Eosinophils 0.30 0.32 Absolute Basophils 0.04 0.03 RBC Morphology Normal Normal PT 11.6 H INR 1.2 H APTT 28.4 VBG Lactate 5.0 H* 3.0 H* Sodium 146 H 148 H Potassium 3.5 3.5 Chloride 108 H 112 H Carbon Dioxide 21.2 19.5 L Anion Gap 16.8 H 16.5 H BUN 11 13 Creatinine 1.0 0.9 Est GFR (CKD-EPI 2020) 78.00 88.51 Glucose 140 H 116 H Calcium 9.4 9.1 Magnesium 1.9 Total Bilirubin 2.4 H AST 43 H ALT 21 Alkaline Phosphatase 117 H Total Protein 7.2 Albumin 3.3 L Lipase 94 H TSH 5.31 H Free T4 1.27 PAWSS Have you Been Recently Intoxicated or Drunk Within the Last 30 days?: No Have you Ever Experienced Previous Episodes of Alcohol Withdrawal?: No Have you ever Experienced Withdrawal Seizures?: No Have you ever Experienced Delirium Tremens(DT)s?: No Have you ever undergone Alcohol Rehabilitation Treatment (i.e, inpt ot outpatient treatment programs)?: No Have you ever Experienced Blackouts?: No Have you ever Combined Alcohol with other Downers within the last 90 days?: No Have you ever Combined Alcohol with any other Substance of Abuse during the last 90 days?: No Positive Blood Alcohol level on Presentation? [PCS.BAL]: No Evidence of Increased Autonomic Activity (i.e. HR>120, tremor, sweating, agitation, nausea)?: No Result: 0 Time Spent with Patient Time Spent with Patient: <25 minutes Time was spent: preparing to see the patient(eg.review tests) and obtaining and/or reviewing separately [facility] hiistory
--- NOTE | 2023-12-05 10:13 | W.PM.DS.N ---
Date of service: 12/05/23 Time of Service: 10:13 DS: Diagnosis Discharge Diagnosis (1) Small bowel obstruction: Status: Acute Discharge Plan Disposition Patient Disposition: Home Condition: Good Discharge Details Reason For Visit: Small Bowel Obstruction Admit Date/Time: 12/04/23 16:33 Admit Provider: Frantz Berg Attending Provider: Frantz Berg Primary Care Provider: Maryann Whitt Hospital Course Hospital Course: 78 y/o male whom presented to the ER with a 1 day history of abdominal pain was admitted over night for SBO. He was treated with a gastrografin challenge with subsequent copious sized BMs x 2. He will be d/c home on a soft diet and [facility] will need [facility]. Home Meds and New Rx's Prescriptions: Continued prazosin 5 mg Capsule 10 mg PO QHS pantoprazole 40 mg Tablet,Delayed Release (Dr/Ec) 40 mg PO DAILY metformin 1,000 mg Tablet 1,000 mg PO BID pregabalin 50 mg Capsule 50 mg PO BID Eliquis 5 mg Tablet 5 mg PO BID nitroglycerin 0.4 mg Tablet, Sublingual 0.4 mg sublingual Q5 MIN PRN X3 PRNQty: 30 0RF miconazole nitrate 2 % Powder 1 applic TOPICAL BID PRN carvedilol 3.125 mg tablet 3.125 mg PO BID Qty: 0 0RF Patient Comments: TAKE 1 TABLET (3.125MG) BY MOUTH TWICE DAILY Rx Instructions: with meals acetaminophen [Tylenol] 325 mg Capsule 650 mg PO Q8H MDD 3000 PRNQty: 0 0RF Hold Instructions: Changed by Provider rifaximin 550 mg Tablet 550 mg PO BID docusate sodium [Colace] 100 mg Capsule 100 mg PO BID Qty: 60 0RF tamsulosin 0.4 mg Capsule 0.4 mg PO DAILY ferrous sulfate 325 mg (65 mg iron) Tablet 325 mg PO DAILY empagliflozin 25 mg Tablet 25 mg PO DAILY furosemide [Lasix] 20 mg tablet 20 mg PO QAM levothyroxine 200 mcg Tablet 100 mcg PO QAM Qty: 0 0RF Discharge Instructions Stand Alone Forms: Nursing Discharge Form Activity:: Activity as Tolerated Equipment/Supplies:: No Equipment Needed Diet:: Soft Diet Discharge Orders Discharge Orders: Discharge Order (Routine); Ordered 12/05/23 Ordered By: Vanessa Chesterland DS: Summary Time Spent with Patient providing and/or coordinating discharge services: Less than 30 minutes Status at Discharge Functional status at discharge: independent ambulation Overall status at discharge: patient is back to baseline Mental Status: mental status grossly normal Speech and Movement: speech and movement normal Mood: congruent mood Affect: normal affect Quality:SDOH Health Related Social Needs: Health related social needs inadequate housing, risk of homeless, food insecurity, transpo insecurity, material hardship Exam Const General: cooperative, healthy appearing and comfortable Orientation: alert and oriented x3 Resp Effort & Inspection: normal respiratory effort, no audible wheezes and no cough GI Inspection: normal to inspection Palpation: soft, no guarding and nontender Psych Mental Status: mental status grossly normal Speech and Movement: speech and movement normal Mood: congruent mood Affect: normal affect DS: Data Vitals/I&O Vitals and I&O: Vital Signs Temperature 36.0 C L 12/05/23 09:17 Temperature Source Tympanic 12/05/23 09:17 Pulse 64 12/05/23 09:17 Pulse Rhythm Regular 12/04/23 22:46 Respiratory Rate 17 12/05/23 09:17 Respiratory Effort Normal, Non-Labored 12/04/23 22:46 Respiratory Depth Normal 12/04/23 22:46 Respiratory Pattern Normal 12/04/23 22:46 Blood Pressure 170/80 H 12/05/23 09:17 Blood Pressure Position Sitting 12/04/23 13:01 Pulse Oximetry 92 12/05/23 09:17 Oxygen Delivery Method Room Air 12/05/23 09:17 Oxygen Flow Rate 0 12/05/23 09:17 Pain Level 0 12/05/23 09:17 Intake & Output 12/04/23 12/05/23 12/05/23 18:59 06:59 18:59 Intake Total 1000 / 1000 Balance 1000 / 1000 Weight 105.687 kg Intake: IV 1000 / 1000 Other: Stool Size Copious Stool Characteristics Liquid Data Completed and Pending Labs on day of discharge: Labs from last 24 hours 12/05/23 12/04/23 12/04/23 07:04 16:17 13:25 WBC 4.36 L 4.87 RBC 4.21 L 4.73 Hgb 13.0 L 14.2 Hct 37.6 L 41.6 MCV 89 88 MCH 30.9 30.0 MCHC 34.6 34.1 RDW 15.9 H 15.7 H Plt Count 63 L 63 L MPV 11.1 H 10.4 Immature Gran % 0.2 0.6 Neutrophils % 61.3 66.8 Lymphocytes % 19.5 16.2 Monocytes % 11.0 9.4 Eosinophils % 7.3 6.2 Basophils % 0.7 0.8 Nucleated RBC % 0.0 0.0 Absolute Neutrophils 2.67 3.25 Absolute Lymphocytes 0.85 L 0.79 L Absolute Monocytes 0.48 0.46 Absolute Eosinophils 0.32 0.30 Absolute Basophils 0.03 0.04 RBC Morphology Normal Normal PT 11.6 H INR 1.2 H APTT 28.4 VBG Lactate 3.0 H* 5.0 H* Sodium 148 H 146 H Potassium 3.5 3.5 Chloride 112 H 108 H Carbon Dioxide 19.5 L 21.2 Anion Gap 16.5 H 16.8 H BUN 13 11 Creatinine 0.9 1.0 Est GFR (CKD-EPI 2020) 88.51 78.00 Glucose 116 H 140 H Calcium 9.1 9.4 Magnesium 1.9 Total Bilirubin 2.4 H AST 43 H ALT 21 Alkaline Phosphatase 117 H Total Protein 7.2 Albumin 3.3 L Lipase 94 H TSH 5.31 H Free T4 1.27 PFSH All Active Problems Small bowel obstruction (Acute) Pre-syncope (Acute) Acute kidney injury (Acute) Frequent falls (Acute) Orthostatic hypotension (Acute) Chronic atrial fibrillation (Chronic) Type 2 diabetes mellitus (Chronic) Hypokalemia (Acute) Bradycardia (Acute) Multiple falls (Acute) Acute metabolic encephalopathy (Acute) Medication monitoring encounter (Acute) ANETTE (obstructive sleep apnea) (Chronic) Chest pain (Acute) CHF exacerbation (Acute) CHF (congestive heart failure) (Chronic) Medical History Hypothyroidism Small bowel obstruction Lactic acid acidosis Creatinine elevation Acute UTI Anticoagulated COVID Chronic low back pain Recurrent intestinal obstruction History of colon cancer Palliative care encounter Followed by [facility] Chronic anticoagulation Portal hypertension Cirrhosis TIPs placed (?when, [facility]? 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 [place] . Time Spent with Patient Time Spent with Patient: <45 minutes Time was spent: preparing to see the patient(eg.review tests), obtaining and/or reviewing separately otained hiistory and counseling the patient
== END 2023-12-05 11:59 | disposition home or self-care (01) ==
LOC: ER 16:58 → MS 18:14
PROVIDERS: Admitting Provider Surgery; Emergency Provider Emergency Medicine; PCP Nurse Practitioner Adult Health; Visit Provider Surgery
DX: K56.609 Unspecified intestinal obstruction, unspecified as to partial versus complete obstruction (principal); Z79.84 Long term (current) use of oral hypoglycemic drugs; Z79.01 Long term (current) use of anticoagulants; Z79.899 Other long term (current) drug therapy; I48.20 Chronic atrial fibrillation, unspecified; E11.9 Type 2 diabetes mellitus without complications; I50.9 Heart failure, unspecified; R29.6 Repeated falls; G47.33 Obstructive sleep apnea (adult) (pediatric); E03.9 Hypothyroidism, unspecified; Z85.038 Personal history of other malignant neoplasm of large intestine; Z90.49 Acquired absence of other specified parts of digestive tract; Z93.3 Colostomy status
CPT/HCPCS: 80048; 80053; 83690; 96361; 96372; 96374; 96376; 99222; 99239; 99285; 74018; 74177; 83605; 83735; 84439; 84443; 85025; 85610; 85730; J1644; J3010; J3490

== ENCOUNTER 2024-01-18 23:08 | Observation (INO) | payer OTHER, SELFPAY ==
--- NOTE | 2024-01-18 23:00 | RT.EKG_ITS ---
APPROVED REPORT Exam: Resting ECG Reason for Exam: dizzy fall Patient Location: E HR:84 bpm ECG Measurements Heart Rate 84 AXIS [place] 232 P -19 QRSd 141 QRS 19 QT 433 T 73 QTc 509 Conclusion Sinus rhythm..., V-rate 60- 99 Paired ventricular premature complexes...sequence of 2 V complexes Prolonged NY interval...NY >220, V-rate 50- 90 Left bundle branch block...QRSd>120, broad/notched R neg Melissaossa
[2024-01-18 23:10] VITALS: BP 162/62; PULSE 68; RESP 21; TEMP 37.2; O2SAT 93
[2024-01-18 23:23] VITALS: PULSE 72; RESP 20; O2SAT 92
[2024-01-18 23:30] VITALS: PULSE 83; RESP 21; O2SAT 92
[2024-01-18 23:31] VITALS: BP 175/63; PULSE 72; PULSE 74; RESP 17; O2SAT 92
--- NOTE | 2024-01-18 23:34 | ED.GENADUL_ITS ---
Discharge Plan Disposition Patient Disposition: Admit to [facility] Condition: Stable Discharge Details Chief Complaint: Fall/Non TraumaCriteria Clinical Impression: Non-ST elevation AZ (NSTEMI), Weakness, Acute UTI (urinary tract infection) Primary Care Provider: Maryann Whitt ED Provider: Genia Mari Home Meds and New Rx's Prescriptions: No Action prazosin 5 mg Capsule 10 mg PO QHS pantoprazole 40 mg Tablet,Delayed Release (Dr/Ec) 40 mg PO DAILY metformin 1,000 mg Tablet 1,000 mg PO BID pregabalin 50 mg Capsule 50 mg PO BID Eliquis 5 mg Tablet 5 mg PO BID nitroglycerin 0.4 mg Tablet, Sublingual 0.4 mg sublingual Q5 MIN PRN X3 PRNQty: 30 0RF miconazole nitrate 2 % Powder 1 applic TOPICAL BID PRN carvedilol 3.125 mg tablet 3.125 mg PO BID Qty: 0 0RF Patient Comments: TAKE 1 TABLET (3.125MG) BY MOUTH TWICE DAILY Rx Instructions: with meals acetaminophen [Tylenol] 325 mg Capsule 650 mg PO Q8H MDD 3000 PRNQty: 0 0RF Hold Instructions: Changed by Provider rifaximin 550 mg Tablet 550 mg PO BID docusate sodium [Colace] 100 mg Capsule 100 mg PO BID Qty: 60 0RF tamsulosin 0.4 mg Capsule 0.4 mg PO DAILY ferrous sulfate 325 mg (65 mg iron) Tablet 325 mg PO DAILY empagliflozin 25 mg Tablet 25 mg PO DAILY furosemide [Lasix] 20 mg tablet 20 mg PO QAM levothyroxine 200 mcg Tablet 100 mcg PO QAM Qty: 0 0RF HPI General Mode of arrival: EMS . Date/Time Provider Initiated Documentation: 01/18/24 23:10 . Limitations to Documentation: no limitations . Information obtained by: patient, EMS and old records reviewed . HPI Narrative: 78yo M with hx frequent falls, afib, T2DM, HTN, cirrhosis s/p TIPS, presenting after fall. Today while getting up to the bathroom his legs gave out and he fell to his knees, striking his forehead on the shower door. Son helped him up. While walking down the hallway he subsequently fell to his knees again. Has felt generally weak for a few days. Not sure if he has felt dizzy or lightheaded or not. No focal numbness or weakness. No vertigo. Urine has smelled bad for over a week; no dysuria but some frequency and urgency was rushing to the bathroom when he fell. Mild headache currently. Also left shoulder pain and diffuse back pain which is unchanged from his baseline. He is otherwise in his usual state of health with no fevers, chills, rash, nausea, vomiting, abdominal pain, chest pain, shortness of breath, LE edema, or other concerns. Related Data Home Medications Medication Instructions Recorded Confirmed apixaban 5 mg tablet (Eliquis) 5 mg PO BID 11/08/22 01/19/24 metformin 1,000 mg tablet 1,000 mg PO BID 11/08/22 01/19/24 pantoprazole 40 mg tablet,delayed 40 mg PO DAILY 11/08/22 01/19/24 release prazosin 5 mg capsule 10 mg PO QHS 11/08/22 01/19/24 pregabalin 50 mg capsule 50 mg PO BID 11/08/22 01/19/24 tamsulosin 0.4 mg capsule 0.4 mg PO DAILY 11/29/22 01/19/24 nitroglycerin 0.4 mg sublingual 0.4 mg sublingual Q5 MIN PRN X3 02/10/23 01/19/24 tablet PRN #30 tabs ferrous sulfate 325 mg (65 mg 325 mg PO DAILY 03/08/23 01/19/24 iron) tablet empagliflozin 25 mg tablet 25 mg PO DAILY 04/09/23 12/04/23 furosemide 20 mg tablet (Lasix) 20 mg PO QAM 04/09/23 01/19/24 levothyroxine 200 mcg tablet 100 mcg (1/2 x 200 mcg) PO QAM #0 04/10/23 01/19/24 tabs miconazole nitrate 2 % topical 1 applic topical BID PRN 06/16/23 01/19/24 powder acetaminophen 325 mg capsule 650 mg (2 x 325 mg) PO Q8H PRN #0 06/17/23 01/19/24 (Tylenol) caps carvedilol 3.125 mg tablet 3.125 mg PO BID #0 tabs 06/17/23 01/19/24 rifaximin 550 mg tablet 550 mg PO BID 07/07/23 01/19/24 docusate sodium 100 mg capsule 100 mg PO BID #60 caps 11/09/23 01/19/24 (Colace) Previous Rx's Medication Instructions Recorded nitroglycerin 0.4 mg sublingual 0.4 mg sublingual Q5 MIN PRN X3 02/10/23 tablet PRN #30 tabs levothyroxine 200 mcg tablet 100 mcg (1/2 x 200 mcg) PO QAM #0 04/10/23 tabs acetaminophen 325 mg capsule 650 mg (2 x 325 mg) PO Q8H PRN #0 06/17/23 (Tylenol) caps carvedilol 3.125 mg tablet 3.125 mg PO BID #0 tabs 06/17/23 docusate sodium 100 mg capsule 100 mg PO BID #60 caps 11/09/23 (Colace) Allergies Allergy/AdvReac Type Severity Reaction Status Date / Time Penicillins Allergy Mild Itching Unverified 01/19/24 00:39 morphine AdvReac Severe vomiting Unverified 01/19/24 00:39 mussels AdvReac Severe vomiting Unverified 01/19/24 00:39 General Stated Complaint: Fall/Non TraumaCriteria ANNA: 2 Review of Systems Narrative: see HPI Exam Narrative Exam Narrative: GENERAL: Alert, no acute distress. SKIN: Warm and well perfused. HEAD: Atraumatic, normocephalic without edema, discoloration or evidence of trauma. Facial bones without deformities or tenderness. EYES: PERRL. No scleral icterus or conjunctival injection. MOUTH: No malocclusion or trismus. Moist mucus membranes without blood. NECK: Trachea midline. No discolorations or edema. CV: Irregular. Normal s1 and s2. No murmurs, rubs, or gallops. PV: Radial pulses 2+ bilaterally and symmetric. Dorsalis pedis pulses 2+ bilaterally and symmetric. 2+ capillary refill. CHEST: No abrasions or ecchymosis. Chest symmetric with respirations. No chest wall tenderness. Lungs are clear to auscultation bilaterally. ABDOMEN: No ecchymosis or abrasions. Soft, nondistended, nontender. Ostomy in place. BACK: No abrasions, skin openings, or ecchymosis. Spine without bony tenderness, no step offs. PELVIC: Pelvis stable, nontender to lateral compression MSK: No gross deformities or discolorations or lesions. Tolerates full range of motion of extremities without tenderness. Neuro: ? GCS 15.? PERRL.? EOMI.? Fluent speech, no dysarthria. Motor- 4+/5 strength symmetric bilateral upper and lower extremities Sensation- ?Intact to light touch and symmetric multiple dermatomes including upper and lower extremities. No saddle anesthesia. Coordination- No dysmetria on finger to nose CRANIAL NERVES: II: Pupils equal and reactive, III, IV, : EOM intact, no gaze preference or deviation, no nystagmus. V: normal sensation in V1, V2, and V3 segments bilaterally VII: no asymmetry, no nasolabial fold flattening VIII: normal hearing to speech IX, X: normal palatal elevation, no uvular deviation XI: 5/5 head turn and 5/5 shoulder shrug bilaterally XII: midline tongue protrusion Course Vital Signs Vital signs: Vital Signs Temperature 37.2 C 01/18/24 23:10 Pulse 68 01/18/24 23:10 Respiratory Rate 21 01/18/24 23:10 Blood Pressure 162/62 H 01/18/24 23:10 Pulse Oximetry 93 01/18/24 23:10 Temperature 37.2 C 01/18/24 23:10 Temperature Source Temporal Artery Scan 01/18/24 23:10 Pulse 68 01/18/24 23:10 Respiratory Rate 21 01/18/24 23:10 Blood Pressure 162/62 H 01/18/24 23:10 Blood Pressure Position Sitting 01/18/24 23:10 Pulse Oximetry 93 01/18/24 23:10 Oxygen Delivery Method Room Air 01/18/24 23:10 Oxygen Flow Rate 0 01/18/24 23:10 Pain Level 3 01/18/24 23:10 Medical Decision Making 78yo M with hx frequent falls, afib, T2DM, HTN, hypothyroid, cirrhosis s/p TIPS, presenting after fall. 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 Today while getting up to the bathroom his legs gave out and he fell to his knees, striking his forehead on the shower door. Then fell again later walking down the ann. No LOC. Uncertain if he is currently taking eliquis. No focal weakness or clear neurlogic symptoms. ~1 week of urinary odor and frequency. Mild headache after the fall, otherwise denies new pain or injury. Hypertensive on arrival, vital signs otherwise reassuring. Trauma exam benign. Not septic. Broad differential for diffuse weakness. EKG on arrival with LBBB (present on prior), frequent PVCs, no indication of occlusive AZ. Head CT independently reviewed, no intracranial hemmoraghe or mass on my view, agree with radiology read below. Plain films chest and pelvis independently reviewed, no displaced fractures, pneumonia, or pneumothorax on my view; agree with radiology reads below. Labs reviewed as below, CBC with anemia (hg 13.4) and thrombocytopenia (plt 84) at baseline on [facility] record review. CMP with no actionable abnormalities, no significant electrolyte abnormalities, TSH high with normal T4. Troponin elevated at 93; patient denies any chest pain or shortness of breath, suspect [id number] in the setting of presumed UTI though urine has not resulted yet. Given 325 of ASA. UA as below, +WBC +nitrite consistent with infection. Treated with 1g IV ceftriaxone. Not septic. Repeat troponin essentially unchanged at 92. Patient [facility] not [facility]. Discussed with hospitalist Dr. [place] and patient accepted to medicine service. Awaiting orders and transfer to the floor. Medical Records Medical records reviewed: Yes I reviewed the patient's medical records. Imaging Data Radiologic Study: Imaging: X-Ray Radiologist's impression: Chest: IMPRESSION: No active disease is seen in the chest Pelvis: IMPRESSION: No acute fracture or dislocation seen in the pelvis Radiologic Study #2: Imaging: CT Scan Radiologist's impression: IMPRESSION: 1. No acute intracranial hemorrhage or depressed skull fracture. 2. Presumed chronic microvascular ischemic change. 3. Symmetric parenchymal volume loss. 4. Prior sinus surgery. Chronic sinusitis. Small amount of fluid in the right maxillary sinus. Superimposed acute sinusitis could have this appearance. Clinical correlation is recommended. Lab Data Lab results reviewed: Yes I reviewed the patient's lab results. Labs: 01/19/24 01:50 Urine - Reflex from Ua Urine Culture - Pending Laboratory Tests Range/Units 01/19/24 01/19/24 00:15 01:50 WBC (4.4-10.8) 10^3/uL 8.70 RBC (4.36-5.78) 10^6/uL 4.33 L Hgb (13.5-17.5) g/dL 13.4 L Hct (40.0-50.0) % 39.2 L MCV (80-95) fL 91 MCH (27.0-33.0) pg 30.9 MCHC (32.0-36.0) % 34.2 RDW (11.8-14.1) % 14.2 H Plt Count (130-400) 10^3/uL 84 L MPV (8.0-11.0) fL 11.7 H Immature Gran % 0.5 Neutrophils % 77.7 Lymphocytes % 7.2 Monocytes % 13.3 Eosinophils % 0.5 Basophils % 0.8 Nucleated RBC % (0.0-0.3) % 0.0 Absolute Neutrophils (1.2-6.7) 10^3/uL 6.76 H Absolute Lymphocytes (1.2-3.4) 10^3/uL 0.63 L Absolute Monocytes (0.1-0.8) 10^3/uL 1.16 H Absolute Eosinophils (0.0-0.7) 10^3/uL 0.04 Absolute Basophils (0.0-0.2) 10^3/uL 0.07 Sodium (136-145) mmol/L 137 Potassium (3.5-5.1) mmol/L 3.9 Chloride (98-107) mmol/L 101 Carbon Dioxide (21.0-32.0) mmol/L 25.3 Anion Gap (3-11) mmol/L 10.7 BUN (7-18) mg/dL 17 Creatinine (0.70-1.30) mg/dL 1.1 Est GFR (CKD-EPI 2020) (mL/min/1.73m2) 69.57 Glucose (74-106) mg/dL 214 H Calcium (8.5-10.1) mg/dL 9.4 Magnesium (1.8-2.4) mg/dL 1.8 Total Bilirubin (0.2-1.0) mg/dL 3.1 H AST (15-37) U/L 32 ALT (16-63) U/L 24 Alkaline Phosphatase (46-116) U/L 125 H Troponin I (< or =60) ng/L 93 H* Total Protein (6.4-8.2) g/dL 6.8 Albumin (3.4-5.0) g/dL 2.8 L TSH (0.36-3.74) uIU/mL 6.84 H Free T4 (0.76-1.46) ng/dL 1.27 Urine Color (Yellow) Yellow Urine Clarity (Clear) Sl Cloudy Urine pH (5-8) 5.5 Ur Specific [place] (1.005-1.025) 1.025 Urine Protein (Neg-Trace) mg/dL >=300 H Urine Ketones (Negative) mg/dL 15 H Urine Blood (Negative) Moderate H Urine Nitrite (Negative) Positive H Urine Bilirubin (Negative) Negative Urine Urobilinogen (Up to 0.2) mg/dL 1.0 H Ur Leukocyte Esterase (Negative) Negative Urine RBC (0-2) HPF 3-5 H Urine WBC (0-5) HPF 10-20 H Ur Epithelial Cells (Negative) HPF Rare Urine Crystals (Negative) HPF Negative Urine Bacteria (Negative) HPF Moderate Urine Mucus (Negative) Negative Urine Other (Negative) Moderate Yeast Ur Culture Indicated? Yes Urine Glucose (Negative) mg/dL >=1000 H COVID-19 Source Nasopharynx SARS-CoV-2 (PCR) (Negative) Negative Influenza Type A (PCR) (Negative) Negative Influenza Type B (PCR) (Negative) Negative RSV (PCR) (Negative) Negative Quality:SDOH Health Related Social Needs: Health related social needs inadequate housing, risk o f homeless, food insecurity, transpo insecurity, material hardship PFSH All Active Problems (Updated 01/19/24 @ 04:34 by Genia Mari [place]) Acute UTI (urinary tract infection) (Acute) Weakness (Acute) Non-ST elevation AZ (NSTEMI) (Acute) Pre-syncope (Acute) Acute kidney injury (Acute) Frequent falls (Acute) Orthostatic hypotension (Acute) Chronic atrial fibrillation (Chronic) Type 2 diabetes mellitus (Chronic) Hypokalemia (Acute) Bradycardia (Acute) Multiple falls (Acute) Acute metabolic encephalopathy (Acute) Medication monitoring encounter (Acute) ANETTE (obstructive sleep apnea) (Chronic) Chest pain (Acute) CHF exacerbation (Acute) CHF (congestive heart failure) (Chronic) Medical History Hypothyroidism Small bowel obstruction Lactic acid acidosis Creatinine elevation Acute UTI Anticoagulated COVID Chronic low back pain Recurrent intestinal obstruction History of colon cancer Palliative care encounter Followed by [facility] Chronic anticoagulation Portal hypertension Cirrhosis TIPs placed (?when, [facility] 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 [place] .
[2024-01-18 23:41] VITALS: PULSE 72; RESP 21; O2SAT 91
[2024-01-18 23:50] VITALS: PULSE 71; RESP 21; O2SAT 91
[2024-01-19] VITALS (44 sets, daily range): BP systolic 133–186; BP diastolic 49–89; PULSE 60–123; RESP 13–31; TEMP 35.3–38; O2SAT 90–96
[2024-01-19 00:29] LABS: Abs Immature Grans 0.04 10^3/uL (0.0-0.06); Absolute Basophil Count 0.07 10^3/uL (0.0-0.2); Absolute Eosinophil Count 0.04 10^3/uL (0.0-0.7); Absolute Lymphocyte Count 0.63 10^3/uL (1.2-3.4); Absolute Monocyte Count 1.16 10^3/uL (0.1-0.8); Absolute Neutrophil Count 6.76 10^3/uL (1.2-6.7); Basophils % 0.8; Eosinophils % 0.5; HCT 39.2 % (40.0-50.0); HGB 13.4 g/dL (13.5-17.5); Immature Grans % 0.5; Lymphocytes % 7.2; MCH 30.9 pg (27.0-33.0); MCHC 34.2 % (32.0-36.0); MCV 91 fL (80-95); MPV 11.7 fL (8.0-11.0); Monocytes % 13.3; Neutrophils % 77.7; RBC 4.33 10^6/uL (4.36-5.78); RDW 14.2 % (11.8-14.1); RDW-SD 47.7 fL
[2024-01-19 00:33] LABS: Platelet Count 84 10^3/uL (130-400)
[2024-01-19 00:51] LABS: ALT 24 U/L (16-63); AST 32 U/L (15-37); Albumin 2.8 g/dL (3.4-5.0); Alkaline Phosphatase 125 U/L (46-116); Anion Gap 10.7 mmol/L (3-11); BUN 17 mg/dL (7-18); Bilirubin, Total 3.1 mg/dL (0.2-1.0); CO2 25.3 mmol/L (21.0-32.0); CREATININE 1.1 mg/dL (0.70-1.30); Calcium 9.4 mg/dL (8.5-10.1); Chloride 101 mmol/L (98-107); Estimated GFR 69.57 (mL/min/1.73m2); Glucose 214 mg/dL (74-106); Magnesium 1.8 mg/dL (1.8-2.4); Potassium 3.9 mmol/L (3.5-5.1); Sodium 137 mmol/L (136-145); TSH (W/Ref FT4) 6.84 uIU/mL (0.36-3.74); Total Protein 6.8 g/dL (6.4-8.2)
[2024-01-19 00:55] LABS: Troponin I 93 ng/L (< or =60)
[2024-01-19] MEDS: Acetaminophen 325 MG TAB 650 MG PO ×2 (01:00→16:59)
[2024-01-19] MEDS: Aspirin 81 MG CHEW 324 MG CH (01:00)
[2024-01-19 01:04] LABS: COVID-19 PCR Negative (Negative); Influenza A PCR Negative (Negative); Influenza B PCR Negative (Negative); RSV PCR Negative (Negative)
[2024-01-19 01:06] LABS: Source Nasopharynx
[2024-01-19 01:13] LABS: FREE T4 1.27 ng/dL (0.76-1.46)
--- NOTE | 2024-01-19 01:22 | NUR.NOTE ---
Pt attempted to urinate earlier, unable to use urinal and made a mess, pt will try again but unable to urinate at this time, provider is aware, [facility]
--- NOTE | 2024-01-19 01:43 | DI.VRAD_ITS ---
PROCEDURE INFORMATION: Exam: CT Head Without Contrast Exam date and time: 01/19/2024 12:25 AM Age: 78 years old Clinical indication: Injury or trauma; Blunt trauma (contusions or hematomas); Consciousness not specified; Injury date: 01/18/24; Injury details: Fall, strike head TECHNIQUE: Imaging protocol: Computed tomography of the head without contrast. Radiation optimization: All CT scans at this facility use at least one of these dose optimization techniques: automated exposure control; mA and/or kV adjustment per patient size (includes targeted exams where dose is matched to clinical indication); or iterative reconstruction. COMPARISON: CT HEAD CERVICAL SPINE WO 11/03/2023 10:52 PM FINDINGS: Brain: No acute intracranial hemorrhage, mass-effect, midline shift, or extra-axial collection is seen. There is patchy white matter hypoattenuation, nonspecific but commonly seen as a chronic sequela of small vessel ischemic disease. The tang white matter differentiation appears preserved. There is symmetric parenchymal volume loss. Cerebral ventricles: The ventricular system and basilar cisterns appear appropriate in size and configuration. Paranasal sinuses: There has been prior sinus surgery with medial antrostomies, ethmoidectomies, and turbinectomies. There is extensive mucoperiosteal thickening throughout the visualized paranasal sinuses and fluid in the right maxillary sinus. Mastoid air cells: The visualized mastoid air cells appear well aerated. Auditory system: The middle ear cavities appear clear. Orbital cavities: The globes and intraorbital structures appear grossly intact. Bones/joints: The bony calvarium appears intact. No depressed skull fracture is seen. Soft tissues: No gross focal scalp hematoma is seen. IMPRESSION: 1. No acute intracranial hemorrhage or depressed skull fracture. 2. Presumed chronic microvascular ischemic change. 3. Symmetric parenchymal volume loss. 4. Prior sinus surgery. Chronic sinusitis. Small amount of fluid in the right maxillary sinus. Superimposed acute sinusitis could have this appearance. Clinical correlation is recommended. Dictated and Authenticated by: Pj Izquierdo MD. Ordering:PIETER Cormier MD
--- NOTE | 2024-01-19 01:49 | DI.VRAD_ITS ---
PROCEDURE INFORMATION: Exam: XR Chest Exam date and time: 01/19/2024 12:47 AM Age: 78 years old Clinical indication: Injury or trauma; Injury date: 01/18/24; Injury details: Fall from standing TECHNIQUE: Imaging protocol: Radiologic exam of the chest. Views: 2 views. COMPARISON: CR XR PORTABLE CHEST AP 11/07/2023 3:24 AM FINDINGS: Limitations: Patient positioning is lordotic. The examination is underpenetrated. Lungs: No gross focal pulmonary consolidation is demonstrated. Pleural spaces: No pleural effusion or pneumothorax is seen. Heart/Mediastinum: The cardiac silhouette is enlarged. Bones/joints: The visualized bony structures appear grossly intact, as seen. There are osteophytes along the thoracic spinal margin. IMPRESSION: No active disease is seen in the chest. Dictated and Authenticated by: Pj Izquierdo MD. Ordering:PIETER Cormier MD
--- NOTE | 2024-01-19 01:50 | DI.VRAD_ITS ---
PROCEDURE INFORMATION: Exam: XR Pelvis Exam date and time: 01/19/2024 12:48 AM Age: 78 years old Clinical indication: Injury or trauma; Blunt trauma (contusions or hematomas); Does not apply; Pelvic region; Injury date: 01/18/24; Injury details: Fall from standing; Patient HX: Fall, PT states no hip pain TECHNIQUE: Imaging protocol: Radiologic exam of the pelvis. Views: 1 or 2 view. COMPARISON: CT ABDOMEN PELVIS W 12/04/2023 1:54 PM FINDINGS: Tubes, catheters and devices: Scattered surgical clips project over the pelvis. Bones/joints: AP views of the pelvis reveal no acute fracture or dislocation. Degenerative changes are noted in the lower lumbar spine. Soft tissues: Unremarkable. Gastrointestinal tract: The visualized bowel gas pattern appears within the variation of normal. Vasculature: Atherosclerotic calcification is noted in the pelvic and proximal right femoral arteries. IMPRESSION: No acute fracture or dislocation seen in the pelvis. Dictated and Authenticated by: Pj Izquierdo MD. Ordering:PIETER Cormier MD
[2024-01-19 02:14] LABS: Bilirubin Negative (Negative); Blood Moderate (Negative); Clarity Sl Cloudy (Clear); Glucose >=1000 mg/dL (Negative); Ketones 15 mg/dL (Negative); Leukocyte Esterase Negative (Negative); Nitrite Positive (Negative); Specific Gravity 1.025 (1.005-1.025); pH 5.5 (5-8)
[2024-01-19 02:15] LABS: Bacteria Moderate HPF (Negative); C & S Indicated? Yes; Crystals Negative HPF (Negative); Epithelial Cells Rare HPF (Negative); Mucus Negative (Negative); Other Cells Moderate Yeast (Negative)
[2024-01-19] MEDS: cefTRIAXone 1 GM/50 ML BAG IVPB (02:47)
[2024-01-19] MEDS: Carvedilol 3.125 MG TAB PO ×3 (03:50→20:12)
[2024-01-19 04:08] LABS: Troponin I 92 ng/L (< or =60)
--- NOTE | 2024-01-19 05:08 | HPE_ITS ---
Date of service: 01/19/24 Time of Service: 04:40 Assessment and Plan Assessment and plan (1) Acute UTI (urinary tract infection): Status: Acute Assessment and plan: Positive UA. Rocephin 1gm IV. Associated significant generalized weakness leading to multiple falls and gait unsteadiness- suspect UTI is the precipitant Pt with h/o CHF so will give fluids cautiously. Will give 500cc LR bolus followed by maintenance at 30cc/hr. (2) Acute kidney injury: Status: Acute Assessment and plan: Cr. 1.1; eGFR = 70. Will give 500cc LR bolus followed by maintenance at 30cc/hr. (3) Frequent falls: Status: Acute Assessment and plan: Associated significant generalized weakness leading to multiple falls and gait unsteadiness- suspect UTI is the precipitant. Will consult PT/OT. (4) CHF (congestive heart failure): Status: Chronic Assessment and plan: Reports some SOB currently & leg swelling at times (not presently). Will Check BNP and be cautious with fluids in the meantime. 12/02/22 Echo: The left ventricle is normal size. Left ventricular systolic function is mildly decreased. There is normal left ventricular wall thickness. There are no segmental wall motion abnormalities There is no ventricular septal defect visualized. LVEF is50-55% (5) Type 2 diabetes mellitus: Status: Chronic Assessment and plan: On metformin and Jardiance. Urine glucose >1000. Will check FSBS AC & HS and HgBA1C. Qualifiers: Chronic kidney disease stage: stage 2 (mild) Diabetes mellitus complication detail: with chronic kidney disease Diabetes mellitus complication status: with kidney complications Diabetes mellitus assistant terminal manager insulin use: [facility] assistant terminal manager use Qualified Code(s): E11.22 - Type 2 diabetes mellitus with diabetic chronic kidney disease; N18.2 - Chronic kidney disease, stage 2 (mild) History of Present Illness History of Present Illness Chief Complaint: Unsteady gait, falls Consults C onsult date: 01/19/24 Requesting physician: Fermín Montana Narrative: 78-year-old white male followed by [facility] palliative care with a history of colon cancer 40 years ago (with an ostomy, liver cirrhosis, s/p TIPS), CHF (LVEF is50- 55% 11/2022), atrial fibrillation (on Eliquis previously, but not currently taking according to ?), DM2, hypertension, endocarditis, ANETTE, hypothyroidism who presents with a chief complaint of gait instability and falls. Patient is a below average historian, thus this record represents a conglomeration of information from the patient, the medical record, and other sources. Patient was ambulating to the bathroom today when his legs gave out and he fell to his knees. He hit his forehead on the shower door. His son, who lives with him, helped him up, but then while walking down the hallway the patient fell to his knees again. He reports generalized weakness for a few days. He is uncertain if he has felt lightheaded or dizzy. This has been associated with his urine being malodorous for over a week. He reports some frequency and urgency in the last week but no dysuria. He is symptoms were a contributor in him rushing to the bathroom when he fell. He has associated mild headache. His chronic diffuse back pain and left shoulder pain are present and unchanged from his baseline. He denies any focal numbness or weakness or dizziness currently. He was brought to the emergency room by EMS. In our emergency room, patient was still found to be unsteady on his feet. His UA was grossly positive for infection including nitrites, many white blood cells, moderate bacteria, and moderate yeast. He was hypertensive. Trauma workup was negative, including head CT, and chest and pelvis plain films. Patient thrombocytopenic to 84 (chronic baseline). Patient had a slightly high TSH with a normal T4. Troponin elevated and flat at 93 and serial rate 92. He was given 325 mg of aspirin And 1 g of Rocephin IV. Patient was not found to be septic. Patient does not want to be transferred to the [facility], And was recommended for admission here. Pt affirms that he is full code because his of 41 years wants him to be full code. Review of Systems Narrative: Review of Systems See also HPI above. Const: Positive for fever, chills the night before last. HENT: Negative for acute hearing changes. Eyes: Negative for acute visual disturbance. Resp: Positive for shortness of breath- mild, acute. CV: Negative for chest pain. Abd: Negative for abdominal pain. GI: Negative for bowel changes. : Negative for changes in urination. MSK: Negative for focal weakness. Skin: Negative for rash. Neuro: Negative for numbness. Heme: Positive for leg edema- significant at times, but not presently. PFSH All Active Problems Acute UTI (urinary tract infection) (Acute) Weakness (Acute) Non-ST elevation MT (NSTEMI) (Acute) Pre-syncope (Acute) Acute kidney injury (Acute) Frequent falls (Acute) Orthostatic hypotension (Acute) Chronic atrial fibrillation (Chronic) Type 2 diabetes mellitus (Chronic) Hypokalemia (Acute) Bradycardia (Acute) Multiple falls (Acute) Acute metabolic encephalopathy (Acute) Medication monitoring encounter (Acute) ANETTE (obstructive sleep apnea) (Chronic) Chest pain (Acute) CHF exacerbation (Acute) CHF (congestive heart failure) (Chronic) Medical History Hypothyroidism Small bowel obstruction Lactic acid acidosis Creatinine elevation Acute UTI Anticoagulated COVID Chronic low back pain Recurrent intestinal obstruction History of colon cancer Palliative care encounter Followed by [facility] Chronic anticoagulation Portal hypertension Cirrhosis TIPs [place] ([place] [facility] 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 [place] . Meds Allergies and Home Medications Allergies Allergy/AdvReac Type Severity Reaction Status Date / Time Penicillins Allergy Mild Itching Unverified 01/19/24 00:39 morphine AdvReac Severe vomiting Unverified 01/19/24 00:39 mussels AdvReac Severe vomiting Unverified 01/19/24 00:39 Home Medications Medication Instructions Recorded Confirmed Type apixaban 5 mg tablet (Eliquis) 5 mg PO BID 01/13/23 03/25/24 History metformin 1,000 mg tablet 1,000 mg PO BID 11/08/22 01/19/24 History pantoprazole 40 mg tablet,delayed 40 mg PO DAILY 11/08/22 01/19/24 History release prazosin 5 mg capsule 10 mg PO QHS 11/08/22 01/19/24 History pregabalin 50 mg capsule 50 mg PO BID 11/08/22 01/19/24 History tamsulosin 0.4 mg capsule 0.4 mg PO DAILY 11/29/22 01/19/24 History nitroglycerin 0.4 mg sublingual 0.4 mg sublingual Q5 MIN PRN X3 02/10/23 01/19/24 Rx tablet PRN #30 tabs ferrous sulfate 325 mg (65 mg 325 mg PO DAILY 03/08/23 01/19/24 History iron) tablet empagliflozin 25 mg tablet 25 mg PO DAILY 04/09/23 12/04/23 History furosemide 20 mg tablet (Lasix) 20 mg PO QAM 04/09/23 01/19/24 History levothyroxine 200 mcg tablet 100 mcg (1/2 x 200 mcg) PO QAM #0 04/10/23 01/19/24 Rx tabs miconazole nitrate 2 % topical 1 applic topical BID PRN 06/16/23 01/19/24 History powder acetaminophen 325 mg capsule 650 mg (2 x 325 mg) PO Q8H PRN #0 06/17/23 01/19/24 Rx (Tylenol) caps carvedilol 3.125 mg tablet 3.125 mg PO BID #0 tabs 06/17/23 01/19/24 Rx rifaximin 550 mg tablet 550 mg PO BID 07/07/23 01/19/24 History docusate sodium 100 mg capsule 100 mg PO BID #60 caps 11/09/23 01/19/24 Rx (Colace) Exam Narrative Exam Narrative: Constitutional: NAD. Head/Face: NCAT. Eyes: PERRL. Nl appearing eyes. ENT: Nl appearing external ears, nose, and oropharynx. No exudates. Uvula mid- line. Neck: Supple, non-tender to palpation. No obvious mass. Slightly dry mucous membranes. Chest: Chest wall non-tender to palpation. Resp: CTAB. Equal BS. No wheezes, rhonchi, crackles, rales. CV: RRR. No rubs, or gallops. Abd/GI: Soft, NTTP. No rebound, guarding, rigidity. No organomegaly or masses palpated. Ostomy bag in place. Back/: No spinal tenderness. No CVA tenderness. Skin: Warm & dry. No clinically significant rash noted on exposed skin. MSK/Ext: MONSALVE. Non-tender. 5/5 motor in all ext bilaterally. Heme/Lymph: No leg edema currently. Neuro: A&O. Nl speech. Sensory & Motor grossly intact. Capacity intact. Appropriate judgment. Psych: Appropriate mood, manner, and affect. SIRS Screen: Negative SIRS Criteria (at least 2 of the following): Temp (+ mode) (>101 (38.3), <96.8 (36))- Negative Pulse (>90/min)- Negative (or) Resp (>20/min)- Negative (or) WBC (>12K, <4K) or Bandemia (>10%)- Negative Source of Infection?: Yes- Urine- bacteria & yeast on UA. Antibiotics Indicated?: Yes- rocephin; consider anti-fungal treatment based on culture results. Results Imaging Chest x-ray: report reviewed and image reviewed (NAD) Imaging Studies: CT Head- NAD (official & hospitalist reads) XR Pelvis- No Fx seen (official & hospitalist reads) Labs 01/19/24 00:15 01/19/24 00:15 Labs: Laboratory Results - last 24 hr 01/19/24 01/19/24 01/19/24 00:15 01:50 03:35 WBC 8.70 RBC 4.33 L Hgb 13.4 L Hct 39.2 L MCV 91 MCH 30.9 MCHC 34.2 RDW 14.2 H Plt Count 84 L MPV 11.7 H Immature Gran % 0.5 Neutrophils % 77.7 Lymphocytes % 7.2 Monocytes % 13.3 Eosinophils % 0.5 Basophils % 0.8 Nucleated RBC % 0.0 Absolute Neutrophils 6.76 H Absolute Lymphocytes 0.63 L Absolute Monocytes 1.16 H Absolute Eosinophils 0.04 Absolute Basophils 0.07 Sodium 137 Potassium 3.9 Chloride 101 Carbon Dioxide 25.3 Anion Gap 10.7 BUN 17 Creatinine 1.1 Est GFR (CKD-EPI 2020) 69.57 Glucose 214 H Calcium 9.4 Magnesium 1.8 Total Bilirubin 3.1 H AST 32 ALT 24 Alkaline Phosphatase 125 H Troponin I 93 H* 92 H* Total Protein 6.8 Albumin 2.8 L TSH 6.84 H Free T4 1.27 Urine Color Yellow Urine Clarity Sl Cloudy Urine pH 5.5 Ur Specific [place] 1.025 Urine Protein >=300 H Urine Ketones 15 H Urine Blood Moderate H Urine Nitrite Positive H Urine Bilirubin Negative Urine Urobilinogen 1.0 H Ur Leukocyte Esterase Negative Urine RBC 3-5 H Urine WBC 10-20 H Ur Epithelial Cells Rare Urine Crystals Negative Urine Bacteria Moderate Urine Mucus Negative Urine Other Moderate Yeast Ur Culture Indicated? Yes Urine Glucose >=1000 H COVID-19 Source Nasopharynx SARS-CoV-2 (PCR) Negative Influenza Type A (PCR) Negative Influenza Type B (PCR) Negative RSV (PCR) Negative Last Vital Signs Temp 37.2 C 01/18/24 23:10 Pulse 66 01/19/24 04:42 Resp 16 01/19/24 04:42 BP 178/65 H 01/19/24 04:42 Pulse Ox 94 01/19/24 04:42 Time Spent Time spent with Patient: >75 minutes Time was spent: preparing to see the patient(eg.review tests), obtaining and/or reviewing separately otained hiistory, ordering medications,tests, procedures, referring, communicating with other health childcare center administrator, indepentently interpreting results, counseling the patient and care coordination
[2024-01-19] MEDS: Lactated Ringers 1,000 ML 30 ML IV (06:33)
[2024-01-19 06:41] LABS: NT-proBNP 2677 pg/mL (<300)
[2024-01-19 07:46] LABS: Hemoglobin A1C 8.2 % (<5.7)
[2024-01-19] MEDS: cefTRIAXone 1,000 MG in Normal Saline 50 ML 100 MG IVPB (08:06)
[2024-01-19] MEDS: metFORMIN 500 MG TAB 1000 MG PO ×2 (08:06→16:59)
[2024-01-19] MEDS: Docusate Sodium 100 MG CAP PO ×2 (08:06→20:12)
[2024-01-19] MEDS: Levothyroxine 200 MCG TAB 100 MCG PO (08:07)
[2024-01-19] MEDS: Rifaximin 550 MG TAB PO ×2 (08:07→20:12)
[2024-01-19] MEDS: Tamsulosin 0.4 MG CAPCR PO (08:08)
[2024-01-19] MEDS: Ferrous Sulfate 325 MG TAB PO (08:08)
[2024-01-19] MEDS: Empaglifozin 25 MG TAB PO (08:08)
[2024-01-19] MEDS: Furosemide 20 MG TAB PO (08:08)
[2024-01-19] MEDS: Pantoprazole 40 MG TABCR PO (08:08)
[2024-01-19] MEDS: Pregabalin 50 MG CAP PO ×2 (08:09→20:12)
[2024-01-19] MEDS: Normal Saline Flush 10 ML SYR IVP ×2 (08:09→20:13)
--- NOTE | 2024-01-19 11:15 | PT.INIE ---
PT Notes Visit Reasons: UTI, Frequent Falls Physical Therapy Inpatient Initial Evaluation Date: 01/19/2024 Referring Doctor: Fermín Montana MD PT Orders: PT CONSULT: Eval/Treat Precautions: Fall. Standard. Activity as tolerated. Colostomy bag in place. Patient Profile/Admitting Diagnosis:? Osmar is a 78-year-old male with past medical history significant for colon cancer with colostomy in [facility].admitted for management of repeated falls, urinary tract infection, RODOLFO, NIDDM, and CHF. PMHX: All Active Problems Acute UTI (urinary tract infection) (Acute) Weakness (Acute) Non-ST elevation [place] (NSTEMI) (Acute) Pre-syncope (Acute) Acute kidney injury (Acute) Frequent falls (Acute) Orthostatic hypotension (Acute) Chronic atrial fibrillation (Chronic) Type 2 diabetes mellitus (Chronic) Hypokalemia (Acute) Bradycardia (Acute) Multiple falls (Acute) Acute metabolic encephalopathy (Acute) Medication monitoring encounter (Acute) ANETTE (obstructive sleep apnea) (Chronic) Chest pain (Acute) CHF exacerbation (Acute) Medical History Hypothyroidism Small bowel obstruction Lactic acid acidosis Creatinine elevation Acute UTI Anticoagulated COVID Chronic low back pain Recurrent intestinal obstruction History of colon cancer Palliative care encounter Followed by [facility] Chronic anticoagulation Portal hypertension Cirrhosis TIPs placed (?when, [facility]? 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 has not been doing well herself and cannot help patient physically. Son may be available as needed during the day. Ambulatory inside the house using FWW. Has a stair lift leading to the bedroom upstairs. Equipment Owned/DME: 4WW, FWW, SPC, scooter, stair lift Subjective: Apologetic about incontinent episode while walking from bedside to toilet. Indicated that he has fallen more than 10 times in the past year. Adds that his back has been practically [facility] that [facility]. Compained of weakness in B LE. Objective: General Observation: Supine in bed, telemetry monitoring in place. IV through the L UE. Mental Status: Alert and oriented as to person, place, time, and purpose. Able to pay attention, focus, and respond appropriately. Pain: 5/10 in R low back area Vital Signs: Closely monitored by nursing staff ROM: Right Upper Extremity: ? Shoulder Flexion WFL. Shoulder abduction WFL. Elbow flexion WFL. Wrist flexion WFL. Functional opening and closing of hand WFL. Left Upper Extremity:? Shoulder Flexion allows up to 90 degrees only. Shoulder abduction allows up to 80 degrees only. Elbow flexion WFL. Wrist flexion WFL. Functional opening and closing of hand WFL. Right Lower Extremity: Hip flexion lacks the last 25% discomfort. Hip abduction WFL. Knee flexion 20 degrees to 90 degrees. Knee extension -20 degrees. Ankle dorsiflexion to neutral only. Ankle plantarflexion WFL. Left Lower Extremity: Hip flexion WFL. Hip abduction WFL. Knee flexion WFL. Ankle dorsiflexion to neutral only. Ankle plantarflexion WFL. Strength: Right Upper Extremity: Shoulder flexors 4-/5. Shoulder abductors 4-/5. Elbow flexors 4-/5. Elbow extensors 4-/5. Vocational Aide strong. Left Upper Extremity: Shoulder flexors 3-/5. Shoulder abductors 3-/5. Elbow flexors 4-/5. Elbow extensors 4-/5. Vocational Aide strong. Right Lower Extremity: Hip flexors 4-/5. Hip abductors 4-/5. Knee flexors 5-/5. Knee extensors 4-/5. Ankle dorsiflexors 3-/5. Ankle plantarflexors 4-/5. Left Lower Extremity: Hip flexors 4-/5. Hip abductors 4-/5. Knee flexors 5-/5. Knee extensors 4-/5. Ankle dorsiflexors 3-/5. Ankle plantarflexors 4-/5. Bed Mobility/Transfers: Moderate cueing provided for use of B hands as needed for support, movement sequence, Ad management, and and posture to reduce fall risk and minimize pain report. Supine to sit minimal assist Sit to stand minimal assist Stand to sit minimal assist Gait: Instructed patient with level surface ambulation of 15 feet + 30 feet requiring contact guard assist with report of weakness in B LE. Unique decreased.? Moderate verbal cueing provided for walker management, directional change, and overall safety. Balance: Static Sitting: Normal Dynamic Sitting: Normal Static Standing: Fair Dynamic Standing: Fair Special Tests: Mobility Limitations Standardized Measure [facility] AM-PAC 6 clicks Basic Mobility Inpatient Short Form: Raw Score: 18? CMS Score: 47% deficit? ? ? 4-Stage Balance test: Unable to maintain feet together, semi-tandem, full tandem, and one-legged stance for 10 seconds. Informed Consent/Education:? Patient was instructed in purpose of PT consult and plan of care. Agreeable to proceed with established PT POC to achieve personal goals. ASSESSMENT: Patient presents with clinical signs and symptoms consistent with current/admitting diagnoses that have resulted to mobility limitations, gait instability, generalized weakness, and overall ADL decline as demonstrated by the following impairment level findings: 1.? Impaired standing balance 2.? Impaired activity tolerance 3.?Weakness in B UE/LE Impairments are contributing to the following functional limitations: 1.? Difficulty with ambulation without assistive device and physical assistance 2.? Increased completion time for mobility ADL performance 3.? Increased risk for falls 4.? Difficulty with managing steps alone safely Patient is assessed as a 16319 moderate complexity based on the following: History: 78-year-old male with past medical history as indicated above Examination: Demonstrable impairment in strength, balance, and mobility level with underlying impairments and functional limitations as exhibited above as well as deficit score of 47% utilizing the [facility] Mobility Inpatient Short Form Presentation: Evolving Decision Makin moderate complexity Goals: Goals X1 week 1. Supine-Sit independent 2. Sit-Supine independent 3. Sit-Stand independent 4. Stand-Sit independent 5. Bed-Chair independent 6. Chair-Bed independent 7. Independent gait on level surface with use of FWW for at least 300 feet without report of pain nor dyspnea 8. Independent stair negotiation while holding onto bilateral rails for at least 10 steps without report of pain nor dyspnea 9. Independent with home exercise program 10. Good static and dynamic standing balance/tolerance Plan of Care/Treatment Plan: Plan of Care/Treatment Plan: 1-2x/day, 7 days/week x 1 week. Plan of care has been reviewed with the [employer] providing the service under Physical Therapy direction. Initiate Physical Therapy intervention for pain management as needed, strengthening, bed mobility, transfers, gait, stairs, balance training, and use of assistive device. DISCHARGE RECOMMENDATIONS: [] ? Home with no services [] [X] ? Home with services. Patient will benefit from home health PT services in order to progress mobility level using least restrictive assistive ambulatory device, assess home safety, identify additional equipment needs, and establish a functional maintenance program that will increase ability of patient to remain at home. [] ? Home with outpatient PT [] [] ? SNF for continued rehabilitation [] [] ? Triage Technician Care [] [] ? SNF versus LTC based on ability to participate and progress [] TREATMENT CODE/TIME: 10716 x 20 minutes for 1 unit, 66033 x 10 minutes (11:15-11:45). Thank you for the opportunity to participate in the care of this patient. Nita Denis PT, DPT, CLT [facility] [place], [place]
--- NOTE | 2024-01-19 14:59 | PT.INTREAT ---
PT Notes Visit Reasons: UTI, Frequent Falls Inpatient Physical Therapy Treatment Note [facility] Date: 01/19/24 SUBJECTIVE: Osmar states that he is quite tired and would like to just nap. he was agreeable to PT. OBJECTIVE: []? VITALS: ?monitore by nursing. Therapeutic Activities (03627a1): Direct one-on-one instruction in dynamic activities to improve functional performance. ? BED MOBILITY/TRANSFERS? Supine-sit: x2 with SBA ? Sit-supine: x2 with SBA? Sit-stand: x2 with CGA/SBA? Stand-sit:x2 with SBA? Bed-Chair: SBA ? Provided skilled cues and instruction on performance and technique throughout. GAIT? Assistive Device: FWW? Weight bearing: full Assist: CGA ? Distance:? 25'x2 plus 5'? Deviation: cues for proper walker positioning. Reminders to avoid pushing walker too far out in front of him. ? ASSESSMENT:? did well despite c/o being tired. Reminders to avoid getting walker too far ahead of him. He admitted his last fall was due to walker getting away from him. Nursing would like him sitting up as much as possible to help manage his coughing. PLAN: will continue to progress strength and functional mobility to tolerance following PT POC. TREATMENT CODE/TIME: 20 min. [id number].
--- NOTE | 2024-01-19 16:04 | PDOC.CMIN ---
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 He is an [employer] and is 100% service connected with the [place]. Merrill occasionally uses a walker for ambulatory assistance and is independent with his ADLs. He also owns a scooter which he uses outside, weather permitting. CURRENT FUNCTIONAL STATUS:: Merrill was sitting up in a chair when CM met with him. He was pleasant and engaged readily with CM, well known to him from previous hospitalizations. Merrill shared that he has not been doing so well at home. He continues to have frequent falls and is not sure why. He stated that his legs just give out. Sometimes he feels a bit lightheaded before he falls, other times he does not. ADVANCE DIRECTIVES:: states he has ADs but not on file at [facility] Has patient been provided with info about the portal/API?: Yes Did the patient sign up for the portal?: No CODE STATUS:: Full Code INSURANCE COVERAGE / FINANCIAL ISSUES:: [place] CURRENT HOME/COMMUNITY SERVICES/EQUIPMENT:: uses a walker and has a scooter PRIMARY CARE PHYSICIAN:: M[place] - Maryann Whitt POTENTIAL DISCHARGE NEEDS:: follow up with PCP and plan of care PATIENT/FAMILY EDUCATION NEEDS:: Review of discharge instructions, activity, limitations, follow up plan, discuss Ask Me Three TRANSPORTATION:: via private vehicle with family vs RCT PLAN:: Anticipate Merrill will be discharged home when medically cleared. He will likely have new orders for home health PT and possibly OT and RN. He will follow up with his providers at the [place] and will transport with family. CM will follow and continue to assess for discharge needs. PFSH All Active Problems Acute UTI (urinary tract infection) (Acute) Weakness (Acute) Non-ST elevation [place] (NSTEMI) (Acute) Pre-syncope (Acute) Acute kidney injury (Acute) Frequent falls (Acute) Orthostatic hypotension (Acute) Chronic atrial fibrillation (Chronic) Type 2 diabetes mellitus (Chronic) Hypokalemia (Acute) Bradycardia (Acute) Multiple falls (Acute) Acute metabolic encephalopathy (Acute) Medication monitoring encounter (Acute) ANETTE (obstructive sleep apnea) (Chronic) Chest pain (Acute) CHF exacerbation (Acute) CHF (congestive heart failure) (Chronic) Medical History Hypothyroidism Small bowel obstruction Lactic acid acidosis Creatinine elevation Acute UTI Anticoagulated COVID Chronic low back pain Recurrent intestinal obstruction History of colon cancer Palliative care encounter Followed by [facility] Chronic anticoagulation Portal hypertension Cirrhosis TIPs placed (?when, [facility]? 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 [place] . SDOH(Care Management) Screening Will the Patient Participate in the Screening?: Declined to provide Social Determinants of Health Comments(SDOH Details): Patient reports no problem with his current living situation.
--- NOTE | 2024-01-19 20:32 | RESPIRATORY ---
RT seen pt. for ANETTE daignosis. Pt. has HU called ResMed Airsence 10, Auto CPAP 10-12 cm H2O. [facility]. It's humidifier is jammed, can not be pulled out to fill sterile, Pt. been using it without humidifer per Pt. Other than that it is in good condition to use.
[2024-01-19] MEDS: Prazosin 5 MG CAP 10 MG PO (22:14)
--- NOTE | 2024-01-19 23:30 | DI.RAD_ITS ---
Exam(s) XR CHEST 2V PA LATERAL EXAM: XR CHEST 2V PA LATERAL CLINICAL HISTORY: fall from standing TECHNIQUE: 2D digital imaging was performed. Two views. COMPARISON: CR,XR XR PORTABLE CHEST AP from 11/07/2023 FINDINGS: HEART: Enlarged. Aorta: Tortuous. Calcification arch. PULMONARY VASCULATURE: Normal. LUNGS: Clear. PLEURAL SPACE: No pleural effusion or pneumothorax. BONE:Unremarkable for age. Soft tissues: Unremarkable. IMPRESSION: No acute abnormality. DATA REPOSITORY: RADIATION DOSE DELIVERED:
--- NOTE | 2024-01-19 23:30 | DI.RAD_ITS ---
Exam(s) XR PELVIS AP EXAM: XR PELVIS AP CLINICAL HISTORY: fall from standing. TECHNIQUE: 2D digital imaging was performed. Single AP view. COMPARISON: No exams were available for comparison FINDINGS: Exam limited by over penetration. BONES: No acute fracture is present. No bony destructive lesion is seen. JOINTS: No dislocation present. Mild to moderate degenerative changes of the hips. SI joints and pub ic symphysis are not widened. Degenerative changes lower lumbar spine. SOFT TISSUE: Left lower quadrant ostomy. Pelvic surgical clips. Vascular calcifications. IMPRESSION: No acute abnormality. DATA REPOSITORY: RADIATION DOSE DELIVERED:
--- NOTE | 2024-01-19 23:30 | DI.CT_ITS ---
Exam(s) CT HEAD WO EXAM: CT HEAD WO CLINICAL HISTORY: fall, head strike. TECHNIQUE: Imaging Protocol: Axial computed tomography images with coronal and sagittal reformatted images were created and reviewed COMPARISON: CT CT HEAD CERVICAL SPINE WO from 11/03/2023 FINDINGS: Ventricles and Extra axial spaces: Normal in size and morphology for the patient's age. Hemorrhage: None. Cerebral parenchyma: No evidence of acute infarct or mass. Minimal microvascular changes. Minimal atrophy. Midline shift: None. Brainstem/Cerebellum: Normal. Calvarium: Normal. Visualized Paranasal sinuses:Sinus disease and prior sinus surgery again noted. Small amount of flui d in the right maxillary sinus. Mastoids: Clear. Soft Tissues: Unremarkable. ORBITS: Unremarkable. PITUITARY: Not enlarged. IMPRESSION: No acute intracranial process. Sinus disease. RADIATION DOSE DELIVERED: Total DLP DATA REPOSITORY: All CT scans at this facility are submitted to the National Radiology Data Registry (NRDR) Dose Index Registry (DIR) with the [employer] (ACR). RADIATION OPTIMIZATION: All CT scans at this facility use at least one of these dose optimization te chniques: automated exposure control; mA and/or kV adjustment per patient size (includes targeted exa ms where dose is matched to clinical indication); or iterative reconstruction.
[2024-01-20] VITALS (7 sets, daily range): BP systolic 126–173; BP diastolic 55–72; PULSE 61–69; RESP 16–20; TEMP 36.4–37.4; O2SAT 54–95
[2024-01-20] MEDS: Levothyroxine 200 MCG TAB 100 MCG PO (06:03)
[2024-01-20 06:59] LABS: HCT 36.7 % (40.0-50.0); HGB 12.6 g/dL (13.5-17.5); MCH 31.3 pg (27.0-33.0); MCHC 34.3 % (32.0-36.0); MCV 91 fL (80-95); MPV 11.8 fL (8.0-11.0); RBC 4.03 10^6/uL (4.36-5.78); RDW 14.3 % (11.8-14.1); RDW-SD 47.9 fL; WBC 4.78 10^3/uL (4.4-10.8)
[2024-01-20 07:11] LABS: BUN 16 mg/dL (7-18); CREATININE 0.9 mg/dL (0.70-1.30); Calcium 8.9 mg/dL (8.5-10.1); Chloride 104 mmol/L (98-107); Estimated GFR 88.51 (mL/min/1.73m2); Glucose 129 mg/dL (74-106); Potassium 3.6 mmol/L (3.5-5.1); Sodium 140 mmol/L (136-145)
[2024-01-20 07:15] LABS: Platelet Count 77 10^3/uL (130-400)
[2024-01-20] MEDS: Carvedilol 3.125 MG TAB PO ×2 (08:49→20:05)
[2024-01-20] MEDS: Ferrous Sulfate 325 MG TAB PO (08:50)
[2024-01-20] MEDS: Docusate Sodium 100 MG CAP PO ×2 (08:50→20:06)
[2024-01-20] MEDS: metFORMIN 500 MG TAB 1000 MG PO ×2 (08:50→17:52)
[2024-01-20] MEDS: cefTRIAXone 1 GM/50 ML BAG IVPB (08:50)
[2024-01-20] MEDS: Empaglifozin 25 MG TAB PO (08:50)
[2024-01-20] MEDS: Pregabalin 50 MG CAP PO ×2 (08:50→20:06)
[2024-01-20] MEDS: Tamsulosin 0.4 MG CAPCR PO (08:50)
[2024-01-20] MEDS: Pantoprazole 40 MG TABCR PO (08:51)
[2024-01-20] MEDS: Furosemide 20 MG TAB PO (08:51)
[2024-01-20] MEDS: Rifaximin 550 MG TAB PO ×2 (08:51→20:05)
[2024-01-20] MEDS: Normal Saline Flush 10 ML SYR IVP ×2 (08:52→20:06)
--- NOTE | 2024-01-20 09:00 | OTIE_ITS ---
Occupational Therapy Notes Inpatient Occupational Therapy Evaluation Date: 01/20/24 Referring Doctor:Fermín Montana OT Orders: Non urgent Precautions: Fall, Standard, Full PATIENT PROFILE/ADMITTING DIAGNOSIS: Pt is a 78 year old male who was admitted to [facility] for the following dx of acute UTI, weakness, pre-syncope, acute kidney injury, frequent falls, orthostatic hypertension, chronic A-fib, Hypokalemia, Bradycardia, multiple falls, Diabetes type II. Past Medical History: All Active Problems Acute UTI (urinary tract infection) (Acute) Weakness (Acute) Non-ST elevation [place] (NSTEMI) (Acute) Pre-syncope (Acute) Acute kidney injury (Acute) Frequent falls (Acute) Orthostatic hypotension (Acute) Chronic atrial fibrillation (Chronic) Type 2 diabetes mellitus (Chronic) Hypokalemia (Acute) Bradycardia (Acute) Multiple falls (Acute) Acute metabolic encephalopathy (Acute) Medication monitoring encounter (Acute) ANETTE (obstructive sleep apnea) (Chronic) Chest pain (Acute) CHF exacerbation (Acute) CHF (congestive heart failure) (Chronic) Medical History Hypothyroidism Small bowel obstruction Lactic acid acidosis Creatinine elevation Acute UTI Anticoagulated COVID Chronic low back pain Recurrent intestinal obstruction History of colon cancer Palliative care encounter [facility] Portal hypertension Cirrhosis TIPs placed (?when, [facility]? 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 He notes that he has 2 daughters who he does not speak too or have anything to do with. He states that he utilizes a FWW for functional mob ility and notes that he has a colostomy. He tries to be (I) but does need (A) at times. He states that he is not interested in HH services but that his and son will (A) him as needed. Equipment owned/DME: FWW, chair lift SUBJECTIVE: Pt was sitting in chair when OT arrived. He is tired this morning and notes that he would like to sleep today. OBJECTIVE: General Observation: Pleasant, decreased (L) shoulder ROM, colostomy, collier in place, IV in (R) UE Mental Status: A&Ox4 Pain: no c/o pain when OT asks he rates it 0/10 ROM: RUE AROM WFL, ideal grasp and release, shoulder flexion and adduction L UE Limited to ~30* shoulder flexion actively, pt reports that he has an issue with his rotator cuff and is seeking outpatient (A) for this with the OR. STRENGTH: RUE 4/5 throughout LUE Tonger strength 4/5 FUNCTIONAL MOBILITY/ADLS: DRESSING seated in chair Dressing UE Mod (A) with don and doffing shirt d/t shoulder Dressing LE Max (A)- pt does have a sock aide and denies need for this GROOMING seated in chair (I) TOILETING NT EATING seated in chair (I) BALANCE: Static sitting Normal Dynamic Sitting Normal SPECIAL TESTS: Daily Activity Limitations Standardized Measure [facility] AM -PAC ?6 clicks? Daily Activity Inpatient Short Form: Raw score: 18 Standardized score: 38.66 CMS score: 46.65% INFORMED CONSENT/EDUCATION: Pt instructed in purpose of OT Consult and plan of care. ASSESSMENT: Patient is a 78-year-old male referred to occupational therapy services with diagnosis of acute UTI, weakness, pre-syncope, acute kidney injury, frequent falls, orthostatic hypertension, chronic A-fib, Hypokalemia, Bradycardia, multiple falls, Diabetes type II.. Patient presents with clinical signs and symptoms consistent with dx, as demonstrated by the following impairment level findings/functional limitations: Impairments in ADL/IADL and leisure activities, decreased functional use of (L) UE limiting his functional (I), pain in (L) shoulder, decreased functional activity tolerance, requires (A) with UE/LE dressing and bathing. AMPAC score 18 Patient is assessed as a Low 77435 complexity based on the following: History: see above Examination: see functional limitations as noted above Presentation: evolving Decision Making: AMPAC score 18 GOALS Goals x1 week 1. Transfers (I) 2. Dressing seated with UE (I), LE mod (I) 3. Bathing seated (I) 4. Toileting- toilet (I) 5. Eating (I) PLAN OF CARE/TREATMENT PLAN: 1x/day, 3-5 days/ week x 1week Initiate Occupational Therapy Services for bathing, dressing, grooming, toileting, eating, transfer training. DISCHARGE RECOMMENDATIONS Home with HH services- although when mentioned to pt he states that he would like to not have HH services when he returns. OT does fe el that this will be beneficial to (A) pt with his ADLs/IADLs. TREATMENT TIME/MINUTES/CODES 67912, [id number], 28 minutes Verna Melendez OTR/L [facility] [place], [place]
--- NOTE | 2024-01-20 09:06 | CMPROGNOTE_ITS ---
Date of service: 01/20/24 Time of Service: 09:06 Care Management Progress Note Progress Note Text Progress Note Text: S/O:Merrill was sitting up in bed when CM met with him. He was complaining that he had a cough that would not go away. Merrill does have COPD at baseline but does not require home oxygen. Merrill also complained of a painful arm. He stated that it has been bothering him for about a month and that he has(d) an appointment [facility] tomorrow to have it checked out. He is not sure if his Cely cancelled it or not. Merrill also has an appointment with his dentist in [place] on Friday for a final measurement for his teeth. He shared that he rally needs to go to that appointment as he has difficulty eating with so many missing teeth. 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 A: Merrill is a 78 year old man admitted on 01/19/24 with a UTI P:Anticipate Merrill will be discharged home when medically cleared. 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 He will follow up with his providers at the [facility] and will transport with family. CM will follow and continue to assess for discharge needs. SDOH(Care Management) Screening Will the Patient Participate in the Screening?: Declined to provide Social Determinants of Health Comments(SDOH Details): Patient reports no problem with his current living situation.
--- NOTE | 2024-01-20 10:14 | PT.INTREAT ---
PT Notes Visit Reasons: UTI, Frequent Falls Date: 01/20/24 SUBJECTIVE: Pt reports he feels very tired, reports it feels like he is dying, agreed to participating with therapy OBJECTIVE:? IV line on left antecubital, condom catheter? VITALS: 176/66mmhg, 60PR, 95sa02 during exercise ? Therapeutic Activities [id number]: Direct one-on-one instruction in dynamic activities to improve functional performance. ? BED MOBILITY/TRANSFERS? Supine-sit: SBA ? Sit-supine: SBA? Sit-stand: SBA? Stand-sit: SBA? Bed-Chair: SBA ? Provided skilled cues and instruction on performance and technique throughout. GAIT? Assistive Device: FWW? Weight bearing: full Assist: CGA ?IV pole management ? Distance:? 25'x2, 90'x2 seated rest break in between distances? Deviation: cues for proper walker positioning. Reminders to avoid pushing walker too far out in front of him. ? ASSESSMENT:? Pt had to go back to the recliner after walking 25'x2 due to condom catheter was out of place resulting in pt dribbling urine along while walking, pt had to change gown, remove condom catheter and dry up the floor before continuing with longer gait training. pt did well despite report of fatigue. Stayed in recliner post gait training to get ready for lunch. PLAN: will continue to progress strength and functional mobility to tolerance following PT POC. TREATMENT CODE/TIME: [id number] 40mins (10:30-11:10am)
--- NOTE | 2024-01-20 13:14 | PGE_ITS ---
Date of Service Date of service: 01/20/24 Time of Service: 13:14 Assessment and Plan Assessment and plan (1) Acute UTI (urinary tract infection): Status: Acute Assessment and plan: awaiting urine culture report with sensitivities. continue Rocephin 1gm IV days 2 Associated significant generalized weakness leading to multiple falls and gait unsteadiness- suspect UTI is the precipitant (2) Acute kidney injury: Status: Resolved Assessment and plan: on admission Cr. 1.1; eGFR = 70. given 500cc LR bolus normalized now (3) Frequent falls: Status: Acute Assessment and plan: Associated significant generalized weakness leading to multiple falls and gait unsteadiness- suspect UTI is the precipitant. Will consult PT/OT. (4) CHF (congestive heart failure): Status: Chronic Assessment and plan: Reports some SOB currently & leg swelling at times (not presently). 12/02/22 Echo: The left ventricle is normal size. Left ventricular systolic function is mildly decreased. There is normal left ventricular wall thickness. There are no se gmental wall motion abnormalities There is no ventricular septal defect visualized. LVEF is50-55% (5) Type 2 diabetes mellitus: Status: Chronic Assessment and plan: On metformin and Jardiance. Urine glucose >1000. Will check FSBS AC & HS and HgBA1C. Qualifiers: Chronic kidney disease stage: stage 2 (mild) Diabetes mellitus complication detail: with chronic kidney disease Diabetes mellitus complication status: with kidney complications Diabetes mellitus senior living insulin use: without senior living use Qualified Code(s): E11.22 - Type 2 diabetes mellitus with diabetic chronic kidney disease; N18.2 - Chronic kidney disease, stage 2 (mild) (6) Discharge planning issues: Status: Acute Assessment and plan: DVT prophylaxis teds, enoxaparin added as patient is not taking apixaban discussed with DR Burton Subjective Subjective Patient reports: tolerating liquids well, tolerating a regular diet and afebrile; denies shortness of breath Interval history since last seen: patient reporting feeling weak and fatigued, no new c/o. Exam Const General: comfortable, no acute distress and ill appearing chronically Nutritional Appearance: obese Orientation: alert, awake and oriented x3 (poor historian) HENMT Head: normal to inspection, normocephalic and atraumatic Mouth: oral mucosae normal Resp Effort & Inspection: normal respiratory effort Cardio Rate: regular rate GI Inspection: normal to inspection and obesity Palpation: soft and nontender Skin General skin exam: no rashes or lesions noted Neuro General: patient alert, patient awake, patient oriented x3 and moves all ex tremities Psych Mental Status: mental status grossly normal Speech and Movement: speech and movement normal Mood: congruent mood Affect: normal affect Objective Last Vital Signs Temp 36.8 C 01/20/24 11:57 Pulse 61 01/20/24 11:57 Resp 20 01/20/24 11:57 BP 132/59 L 01/20/24 11:57 Pulse Ox 93 01/20/24 11:57 Laboratory Results - last 24 hr 01/20/24 06:30 WBC 4.78 RBC 4.03 L Hgb 12.6 L Hct 36.7 L MCV 91 MCH 31.3 MCHC 34.3 RDW 14.3 H Plt Count 77 L MPV 11.8 H Sodium 140 Potassium 3.6 Chloride 104 Carbon Dioxide 24.0 Anion Gap 12.0 H BUN 16 Creatinine 0.9 Est GFR (CKD-EPI 2020) 88.51 Glucose 129 H Calcium 8.9 Time Spent with Patient Time Spent with Patient: 35-49 minutes Time was spent: preparing to see the patient(eg.review tests), ordering medications,tests, procedures, indepentently interpreting results, counseling the patient and care coordination
[2024-01-20] MEDS: Prazosin 5 MG CAP 10 MG PO (20:05)
[2024-01-21 03:41] VITALS: BP 138/61; PULSE 76; RESP 21; TEMP 37.2; O2SAT 90
[2024-01-21 04:52] VITALS: RESP 20
[2024-01-21] MEDS: Levothyroxine 200 MCG TAB 100 MCG PO (05:16)
[2024-01-21 07:23] VITALS: BP 147/56; PULSE 76; RESP 19; TEMP 36.9; O2SAT 92
[2024-01-21] MEDS: Pantoprazole 40 MG TABCR PO (07:58)
[2024-01-21] MEDS: Normal Saline Flush 10 ML SYR IVP ×2 (07:59→09:17)
[2024-01-21] MEDS: Carvedilol 3.125 MG TAB PO (09:07)
[2024-01-21] MEDS: Rifaximin 550 MG TAB PO (09:08)
[2024-01-21] MEDS: Pregabalin 50 MG CAP PO (09:08)
[2024-01-21] MEDS: Furosemide 20 MG TAB PO (09:08)
[2024-01-21] MEDS: metFORMIN 500 MG TAB 1000 MG PO (09:09)
[2024-01-21] MEDS: Docusate Sodium 100 MG CAP PO (09:09)
[2024-01-21] MEDS: Empaglifozin 25 MG TAB PO (09:09)
[2024-01-21] MEDS: cefTRIAXone 1 GM/50 ML BAG IVPB (09:10)
[2024-01-21] MEDS: Ferrous Sulfate 325 MG TAB PO (09:10)
[2024-01-21] MEDS: Tamsulosin 0.4 MG CAPCR PO (09:10)
--- NOTE | 2024-01-21 10:02 | PDOC.CMDIS ---
Date of service: 01/21/24 Time of Service: 10:02 LACE Index Scoring Tool Questions: Length of Stay (in days): 2 Was the patient admitted via the E.D.?: Yes Comorbidities: Diabetes w/o Complication, Congestive Heart Failure, Any Tumor and Liver or Renal Disease E.D. 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 He will follow up with his providers at the [facility] and will transport with family. Patient/Family Education Needs: Review of discharge instructions, activity, limitations, follow up plan, discuss Ask Me Three Services Needed at Discharge: Home Health Care Services SDOH Health Related Social Needs: Health related social needs details Unable to get in and out of home, ambulate or perform ADLs.
--- NOTE | 2024-01-21 10:27 | PT.INTREAT ---
PT Notes Visit Reasons: UTI, Frequent Falls Date: 01/21/24 SUBJECTIVE: Pt in bed watching TV eating breakfast, pt reports he would like to participate after finishing breakfast. OBJECTIVE:? IV line on left antecubital ? VITALS: monitored by nursing ? Therapeutic Activities [id number]: Direct one-on-one instruction in dynamic activities to improve functional performance. ? BED MOBILITY/TRANSFERS? Supine-sit: SBA ? Sit-supine: SBA? Sit-stand: SBA? Stand-sit: SBA? Bed-Chair: SBA ? Provided skilled cues and instruction on performance and technique throughout. GAIT? Assistive Device: FWW? Weight bearing: full Assist: CGA ?IV pole management ? Distance:? 90'x2 seated rest break in between distances? Deviation: cues for proper walker positioning. good carry over with not walking too far away from AD ? ASSESSMENT:? Pt returned to bed post session, did not want any further engagement after getting back in bed. PLAN: will continue to progress strength and functional mobility to tolerance following PT POC. TREATMENT CODE/TIME: [id number] 30mins (9:35-10:05am)
[2024-01-21 10:59] VITALS: BP 154/72; PULSE 80; RESP 19; TEMP 36.8; O2SAT 93
--- NOTE | 2024-01-21 12:20 | W.PM.DS.N ---
Date of service: 01/21/24 Time of Service: 12:20 DS: Diagnosis Discharge Diagnosis (1) Acute UTI (urinary tract infection): Status: Acute (2) Acute kidney injury: Status: Resolved (3) Frequent falls: Status: Acute (4) CHF (congestive heart failure): Status: Chronic (5) Type 2 diabetes mellitus: Status: Chronic Discharge Plan Disposition Patient Disposition: Home W/Home Health Services Condition: Improving Discharge Details Reason For Visit: UTI, Frequent Falls Admit Date/Time: 01/19/24 04:42 Admit Provider: Fermín Montana Attending Provider: Fermín Montana Primary Care Provider: Maryann Whitt Hospital Course Hospital Course: This is 78-year-old white male followed by [place] palliative care with a history of colon cancer 40 years ago (with an ostomy, liver cirrhosis, s/p TIPS), CHF (LVEF is 50-55% 11/2022), atrial fibrillation (on Eliquis previously, but not currently taking according to ), DM2, hypertension, endocarditis, ANETTE, hypothyroidism who presents with a chief complaint of gait instability and falls. Work up in the ED is consistent with urinary tract infection and mild dehydration. he was admitted to the med/surg department under hospitalist services for IV hydration and PT while awaiting urine cultures. He remained hemodynamically stable and has been eating and drinking well. He worked with PT and was safely re-ambulated with recommendations for home health services. urine culture grew serratia marcescens sensitive ceftriaxone which he has been on. will downstep to cefpodoxime to complete a [address] discussed with Dr Josephine Silva Meds and New Rx's Prescriptions: New cefpodoxime 200 mg tablet 200 mg PO BID Qty: 8 0RF Rx Instructions: must administer with a meal/food Continued prazosin 5 mg Capsule 10 mg PO QHS pantoprazole 40 mg Tablet,Delayed Release (Dr/Ec) 40 mg PO DAILY metformin 1,000 mg Tablet 1,000 mg PO BID pregabalin 50 mg Capsule 50 mg PO BID nitroglycerin 0.4 mg Tablet, Sublingual 0.4 mg sublingual Q5 MIN PRN X3 PRNQty: 30 0RF miconazole nitrate 2 % Powder 1 applic TOPICAL BID PRN carvedilol 3.125 mg tablet 3.125 mg PO BID Qty: 0 0RF Patient Comments: TAKE 1 TABLET (3.125MG) BY MOUTH TWICE DAILY Rx Instructions: with meals acetaminophen [Tylenol] 325 mg Capsule 650 mg PO Q8H MDD 3000 PRNQty: 0 0RF Hold Instructions: Changed by Provider rifaximin 550 mg Tablet 550 mg PO BID docusate sodium [Colace] 100 mg Capsule 100 mg PO BID Qty: 60 0RF tamsulosin 0.4 mg Capsule 0.4 mg PO DAILY ferrous sulfate 325 mg (65 mg iron) Tablet 325 mg PO DAILY empagliflozin 25 mg Tablet 25 mg PO DAILY furosemide [Lasix] 20 mg tablet 20 mg PO QAM levothyroxine 200 mcg Tablet 100 mcg PO QAM Qty: 0 0RF Held Eliquis 5 mg Tablet 5 mg PO BID Hold Instructions: until discussed with outpatient team as you have not been taking it. Discharge Instructions Instructions: Urinary Tract Infection in Women (DC) Additional Instructions: Continue your antibiotics for 4 more days starting tomorrow morning as you have received your dose for today Drink at least 6 to 8 glasses of water daily to stay well-hydrated Continue the rest of your medications as directed by your outpatient provider Stand Alone Forms: Nursing Discharge Form Referrals: Maryann Whitt [Primary Care Provider] - (office will call you with follow up appointment. Please call if you do not hear from them.) Activity:: Activity as Tolerated Equipment/Supplies:: No Equipment Needed Diet:: As Tolerated Discharge Orders Discharge Orders: Discharge Order (Routine); Ordered 01/21/24 Ordered By: Bella Santo DS: Summary Time Spent with Patient providing and/or coordinating discharge services: Greater than 30 minutes Status at Discharge Functional status at discharge: uses cane/walker Overall status at discharge: patient is progressing back to baseline Mental Status: mental status grossly normal Speech and Movement: speech and movement normal Mood: congruent mood Affect: normal affect Quality:SDOH Health Related Social Needs: Health related social needs inadequate housing, risk of homeless, food insecurity, transpo insecurity, material hardship Exam Const General: comfortable, no acute distress and ill appearing chronically Nutritional Appearance: obese Orientation: alert, awake and oriented x3 (poor historian) HENMT Head: normal to inspection, normocephalic and atraumatic Mouth: oral mucosae normal Resp Effort & Inspection: normal respiratory effort Cardio Rate: regular rate GI Inspection: normal to inspection and obesity Palpation: soft and nontender Skin General skin exam: no rashes or lesions noted Neuro General: patient alert, patient awake, patient oriented x3 and moves all extremities Psych Mental Status: mental status grossly normal Speech and Movement: speech and movement normal Mood: congruent mood Affect: normal affect DS: Data Vitals/I&O Vitals and I&O: Vital Signs Temperature 36.8 C 01/21/24 10:59 Temperature Source Tympanic 01/21/24 10:59 Pulse 80 01/21/24 10:59 Pulse Rhythm Regular 01/21/24 08:30 Pulse 64 01/19/24 04:30 Respiratory Rate 19 01/21/24 10:59 Respiratory Effort Normal, Non-Labored 01/21/24 08:30 Respiratory Depth Normal 01/21/24 08:30 Respiratory Pattern Normal 01/21/24 08:30 Blood Pressure 154/72 H 01/21/24 10:59 Blood Pressure Mean 98 01/19/24 04:22 Blood Pressure Position Sitting 01/18/24 23:10 Pulse Oximetry 93 01/21/24 10:59 Oxygen Delivery Method Room Air 01/21/24 10:59 Oxygen Flow Rate 0 01/21/24 10:59 Fraction of Inspired Oxygen (FIO2) 21 01/19/24 20:26 Pain Level 0 01/21/24 10:59 Comment Patient coughing since yesterday. Lungs sounds clear but slightly diminished. thick sputum with yellow and black color. 01/19/24 05:18 Intake & Output 01/20/24 01/21/24 01/21/24 23:59 11:59 23:59 Intake Total 929.5 / 1109.5 Output Total 1000 / 1850 775 / 1175 400 / 1175 Balance -70.5 / -740.5 -775 / -1175 -400 / -1175 Intake: IV 929.5 / 989.5 Output: Urine 1000 / 1850 775 / 1175 400 / 1175 Other: Urine Color Yellow Yellow Pale Yellow Urine Appearance Sediment Clear Cloudy Urine Odor None None Voiding Methods Urinal Urinal Urinal PFSH All Active Problems (Updated 01/20/24 @ 13:23 by Blela Santo NP) Discharge planning issues (Acute) Acute UTI (urinary tract infection) (Acute) Weakness (Acute) Non-ST elevation [place] (NSTEMI) (Acute) Pre-syncope (Acute) Frequent falls (Acute) Orthostatic hypotension (Acute) Chronic atrial fibrillation (Chronic) Type 2 diabetes mellitus (Chronic) Hypokalemia (Acute) Bradycardia (Acute) Multiple falls (Acute) Acute metabolic encephalopathy (Acute) Medication monitoring encounter (Acute) ANETTE (obstructive sleep apnea) (Chronic) Chest pain (Acute) CHF exacerbation (Acute) CHF (congestive heart failure) (Chronic) Medical History Hypothyroidism Small bowel obstruction Lactic acid acidosis Creatinine elevation Acute UTI Anticoagulated COVID Chronic low back pain Recurrent intestinal obstruction History of colon cancer Palliative care encounter Followed by [facility] Chronic anticoagulation Portal hypertension Cirrhosis TIPs placed (?when, [facility]? 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 [place] . Time Spent with Patient Time Spent with Patient: 45-69 minutes Time was spent: preparing to see the patient(eg.review tests), obtaining and/or reviewing separately otained hiistory, ordering medications,tests, procedures, indepentently interpreting results, counseling the patient and care coordination
--- NOTE | 2024-01-21 12:56 | PDOC.HHF2F_ITS ---
Home Health Referral Home Health Orders Clinical synopsis of why skilled professionals are needed: frail elderly male, at risk, poor historian. Medical diagnosis necessitation home health referral: UTI, ambulatory dysfunction with recent fall. Registered Nurse: Check all that apply Instruct on new or changed medication(s)/assess compliance: Ordered Instruct on ostomy care: Ordered (monitor for decreased or no output ) Assess for exacerbation of medical condition, instruct patient/caregivers on signs and symptoms to report for early detection: Ordered Other: Patient has to take his laxatives daily Physical Therapist: Check all that apply Increase strength & endurance for safe mobility at home: Ordered To design/establish home maintenance program: Ordered Fall reduction therapy program for patient with history of frequent falls: Ordered Home safety evaluation and teaching/gait training including stair management (if applicable): Ordered Occupational Therapist: Evaluate and treat for patient unable to perform ADL/IADL/self-care: Ordered Pulmonary Specialist: Assist with community resources: Ordered Assist with alf care planning: Ordered Home Bound Status Requires the aid of supportive device (check all that apply): Walker Describe why leaving home would require a considerable and taxing effort: Confusion Encounter Date and Reason: I certify that a FTF encounter for this patient was performed on January 21, 2024 and that such encounter was related to the primary reason the patient requires home health services. The encounter was conducted in the following manner: * By me as the certifying physician, ADVERTISING TRAFFIC MANAGER, PA or * By an inpatient physician, ADVERTISING TRAFFIC MANAGER or PA during an inpatient stay who communicated findings to me, Certification And Authentication I certify that I composed the above information based on my clinical judgment relating to this patient's medical condition and, if applicable, clinical findings communicated to me by the NPP or inpatient physician who performed the FTF encounter. Name of Provider that will be monitoring home health services: Maryann Whitt
== END 2024-01-21 15:05 | disposition home health service (06) ==
LOC: ER 01-19 04:34 → MS 01-19 16:04
PROVIDERS: Admitting Provider Emergency Medicine; Emergency Provider Student in an Organized Health Care Education/Training Program; PCP Nurse Practitioner Adult Health; Visit Provider Emergency Medicine
DX: N17.9 Acute kidney failure, unspecified (principal); N39.0 Urinary tract infection, site not specified; R29.6 Repeated falls; I50.9 Heart failure, unspecified; E11.22 Type 2 diabetes mellitus with diabetic chronic kidney disease; N18.2 Chronic kidney disease, stage 2 (mild); I13.0 Hypertensive heart and chronic kidney disease with heart failure and stage 1 through stage 4 chronic kidney disease, or unspecified chronic kidney disease; D69.6 Thrombocytopenia, unspecified; Z85.038 Personal history of other malignant neoplasm of large intestine; I25.2 Old myocardial infarction; I48.20 Chronic atrial fibrillation, unspecified; I95.1 Orthostatic hypotension; Z79.84 Long term (current) use of oral hypoglycemic drugs; Z79.01 Long term (current) use of anticoagulants; K74.60 Unspecified cirrhosis of liver; Z93.3 Colostomy status
CPT/HCPCS: 00123; 36415; 80048; 80053; 85027; 87077; 87637; 93005; 96365; 96366; 97162; 97165; 97530; 97535; 99285; 70450; 71046; 72170; 81003; 81015; 83036; 83735; 83880; 84439; 84443; 84484; 85025; 87086; 87186; 93010; 99223; 99232; 99239; J0696

== ENCOUNTER → 2024-02-02 03:01 | Outpatient (CLI) | payer OTHER, SELFPAY ==
--- NOTE | 2024-02-02 07:45 | DI.MRI_ITS ---
Exam(s) MR UPPER JOINT LT WO EXAM: MR UPPER JOINT LT WO CLINICAL HISTORY: L SHOULDER PAIN,m25.512,[id number],LT ROTATOR CUFF TECHNIQUE: Multiplanar multisequence MRI of the shoulder was performed. COMPARISON: None FINDINGS: MARROW:There is no evidence of fracture, Hill-Sachs deformity, nor ominous osseous lesions. There are degenerative subarticular cysts in the anterior aspect of the humeral head at the lesser tuberosity level. These measuring up to 9 x 7 mm size. GLENOHUMERAL JOINT: No evidence of glenohumeral joint effusion or loose intra-articular bodies. Ther e are no degenerative subarticular cysts in the glenoid fossa. There is minimal thinning of the naeem cular cartilage. There are no osteophytes. ROTATOR CUFF MECHANISM: AC JOINT/ACROMIUM: There are mild-moderate degenerative changes in the AC joint. No significant oste ophytic ridge evident on the undersurface of the a chromium. No evidence of enthesophyte at the leve l of the coracoacromial ligament.. There is no evidence of os acromiale. Supraspinatus: There is significant signal abnormality throughout a large part of the supraspinatus t endon. There is articular side partial thickness tearing noted, best seen on sagittal images. Canno t exclude an additional somewhat occult full-thickness tear as there does appear to be a small amount of fluid in the subacromial bursa space. There is no muscle atrophy. Infraspinatus: Mild tendinitis signal. No tear. No atrophy. Teres Minor: Intact. No evidence of tear nor muscle atrophy. Subscapularis/anterior cuff: There is some signal abnormality in the most superior aspect of the mult ipennate tendon consistent with tendinitis. BICEPS TENDON: Exhibits normal position within the intertubercular groove. LABRUM: No evidence of labral tear nor paralabral cyst. QUADRILATERAL SPACE: No evidence of mass in the region of the axillary nerve and dorsal circumflex hu meral vessels. Visualized triceps muscle at this level appears unremarkable. IMPRESSION: 1. Signal abnormality throughout the supraspinatus tendon consistent with tendinitis and articular si de partial thickness tearing, best seen on the sagittal images. There is a small amount of fluid in t he overlying subacromial bursa which may indicate that there is an element of full-thickness tearing (without retraction). Other possibility is prominent full-thickness tear with an element of subacromi al bursitis. 2. Also element of tendinitis in the more superior aspect of the subscapularis tendon 3. No evidence of labral tears. DATA REPOSITORY:
== END ==
PROVIDERS: PCP Nurse Practitioner Adult Health; Visit Provider Student in an Organized Health Care Education/Training Program
DX: M25.512 Pain in left shoulder (principal); M75.102 Unspecified rotator cuff tear or rupture of left shoulder, not specified as traumatic; M75.82 Other shoulder lesions, left shoulder
CPT/HCPCS: 73221

== ENCOUNTER 2024-02-21 00:42 | Inpatient (IN) | payer OTHER, SELFPAY ==
[2024-02-21] VITALS (28 sets, daily range): BP systolic 164–227; BP diastolic 56–89; PULSE 52–77; RESP 16–18; TEMP 36.3–37.1; O2SAT 92–97
--- NOTE | 2024-02-21 00:45 | DI.CT_ITS ---
Exam(s) CT ABDOMEN PELVIS W EXAM: CT ABDOMEN PELVIS W CLINICAL HISTORY: abd pain, no stool in ostomy bag, hx SBO. TECHNIQUE: Imaging Protocol: Axial computed tomography images with coronal and sagittal reformatted images were created and reviewed CONTRAST MATERIAL: Intravenous: Omnipaque-350 100cc Oral: None COMPARISON: CT CT ABDOMEN PELVIS W from 12/04/2023 FINDINGS: VISUALIZED LUNG BASES: No nodules nor pleural effusions evident. ABDOMEN: There is no ascites. LIVER: Hepatic cirrhosis again noted and there is a TIPS stent again noted in place. This extends fr om the main portal vein to hepatic systemic vein adjacent to the IVC. Appears patent. There no disc rete focal hepatic lesions. Small hypodensity in left hepatic lobe is unchanged. GALLBLADDER/BILIARY: Gallbladder is contracted. Contains a tiny calcification in wall which is eithe r a polyp or gallstone measuring 1-2 mm. CBD is not dilated. However, there are 2 tiny radiopaque c alculi in the lower CBD measuring 2 mm, PANCREAS: No evidence of pancreatic mass nor dilatation of the pancreatic duct. SPLEEN: Splenomegaly again noted. No intrasplenic lesions. Splenic and portal veins are patent. SM V is patent. ADRENALS: There are no significant adrenal masses. KIDNEYS:No cysts evident. No solid renal masses. No calculi nor hydronephrosis.. ABDOMINAL AORTA: Peripherally calcified but not enlarged. Common iliac arteries not enlarged. LYMPH NODES:There is no retroperitoneal nor paraaortic adenopathy. ABDOMINAL WALL: Left anterior abdominal wall colostomy site appears stable and unremarkable. GI: Abnormally dilated small bowel loops in the central lower abdomen and pelvis are again noted cons istent with element of bowel obstruction point just above the urinary bladder, similar to previous. PELVIS: GI: Appendix surgically absent. LYMPH NODES: There is no intrapelvic nor inguinal adenopathy. REPRODUCTIVE: Question possible prior prostatectomy. Seminal vesicles also not identified. URINARY BLADDER: No calculi nor obvious masses evident OSSEOUS: No fractures and no significant osseous lesions. Multilevel chronic degenerative disc disease. IMPRESSION: 1. Small-bowel obstruction pattern, similar to previous. 2. Colostomy is intact. TIPS shunt appears intact 3. Hepatic cirrhosis and splenomegaly are again noted. There is no ascites. 4. RADIATION DOSE DELIVERED: 1,105.07mGy.cm Total DLP DATA REPOSITORY: All CT scans at this facility are submitted to the National Radiology Data Registry (NRDR) Dose Index Registry (DIR) with the [employer] ([employer]). RADIATION OPTIMIZATION: All CT scans at this facility use at least one of these dose optimization te chniques: automated exposure control; mA and/or kV adjustment per patient size (includes targeted exa ms where dose is matched to clinical indication); or iterative reconstruction.
--- NOTE | 2024-02-21 01:00 | W.ED.GENAD ---
Discharge Plan Disposition Patient Disposition: Admit to [facility] Condition: Serious Discharge Details Clinical Impression: Small bowel obstruction, CHF (congestive heart failure), Elevated lactic acid level, Hypertension Admit Date/Time: 02/21/24 03:01 Admit Provider: Osmar Skinner Attending Provider: Osmar Skinner Primary Care Provider: Maryann Whitt ED Provider: Genia Mari Discharge Data Discharge Date/Time-TO BE ENTERED AT DEPARTURE: 02/21/24 04:07 HPI General Date/Time Provider Initiated Documentation: 02/21/24 00:43. HPI Narrative: 78yo M with hx T2DM, afib, CHF, s/p colostomy, recurrent small bowel obstructions 2/t adhesions, presenting with acute intermittent abdominal pain x 1 day and no output from ostomy over the same period of time. Feels similar to his prior small bowel obstructions. Pain is dull, intermittent, and crampy, comes in waves. No pain currently. No nausea or vomiting. Decreased PO today but did eat donuts in the morning. He is otherwise in his usual state of health with no fevers, chills, rash, dysuria, hematuria, chest pain, shortness of breath, or other concerns. Related Data Home Medications Medication Instructions Recorded Confirmed apixaban 5 mg tablet (Eliquis) 5 mg PO BID 11/08/22 02/21/24 metformin 1,000 mg tablet 1,000 mg PO BID 11/08/22 02/21/24 pantoprazole 40 mg tablet,delayed 40 mg PO DAILY 11/08/22 02/21/24 release prazosin 5 mg capsule 10 mg PO QHS 11/08/22 02/21/24 pregabalin 50 mg capsule 50 mg PO BID 11/08/22 02/21/24 tamsulosin 0.4 mg capsule 0.4 mg PO DAILY 11/29/22 02/21/24 nitroglycerin 0.4 mg sublingual 0.4 mg sublingual Q5 MIN PRN X3 02/10/23 02/21/24 tablet PRN #30 tabs ferrous sulfate 325 mg (65 mg 325 mg PO DAILY 03/08/23 02/21/24 iron) tablet empagliflozin 25 mg tablet 25 mg PO DAILY 04/09/23 02/21/24 furosemide 20 mg tablet (Lasix) 20 mg PO QAM 04/09/23 02/21/24 levothyroxine 200 mcg tablet 100 mcg (1/2 x 200 mcg) PO QAM #0 04/10/23 02/21/24 tabs miconazole nitrate 2 % topical 1 applic topical BID PRN 06/16/23 02/21/24 powder acetaminophen 325 mg capsule 650 mg (2 x 325 mg) PO Q8H PRN #0 06/17/23 02/21/24 (Tylenol) caps carvedilol 3.125 mg tablet 3.125 mg PO BID #0 tabs 06/17/23 02/21/24 rifaximin 550 mg tablet 550 mg PO BID 07/07/23 02/21/24 docusate sodium 100 mg capsule 100 mg PO BID #60 caps 11/09/23 02/21/24 (Colace) Previous Rx's Medication Instructions Recorded nitroglycerin 0.4 mg sublingual 0.4 mg sublingual Q5 MIN PRN X3 02/10/23 tablet PRN #30 tabs levothyroxine 200 mcg tablet 100 mcg (1/2 x 200 mcg) PO QAM #0 04/10/23 tabs acetaminophen 325 mg capsule 650 mg (2 x 325 mg) PO Q8H PRN #0 06/17/23 (Tylenol) caps carvedilol 3.125 mg tablet 3.125 mg PO BID #0 tabs 06/17/23 docusate sodium 100 mg capsule 100 mg PO BID #60 caps 11/09/23 (Colace) Allergies Allergy/AdvReac Type Severity Reaction Status Date / Time Penicillins Allergy Mild Itching Unverified 02/21/24 00:55 morphine AdvReac Severe vomiting Unverified 02/21/24 00:55 mussels AdvReac Severe vomiting Unverified 02/21/24 00:55 General Stated Complaint: Abd Prob ANNA: 3 Review of Systems Narrative: see HPI Exam Narrative Exam Narrative: General: Alert, well nourished Head: Normocephalic, atraumatic Neck: Trachea midline, ?Neck supple. ENT: ?MMM.? Cardiac: ?RRR, no murmurs appreciated Resp: No respiratory distress. CTAB. Abd: ?Soft, non-distended, non-tender. Ostomy in place, no output. : ?No suprapubic tenderness. Extremities: ?No deformities.? No peripheral edema. Neurologic: GCS 15. ? Moves all extremities freely against gravity Course Vital Signs Vital signs: Vital Signs Temperature 36.6 C 02/21/24 00:45 Pulse 74 02/21/24 00:45 Respiratory Rate 18 02/21/24 00:45 Blood Pressure 189/82 H 02/21/24 00:45 Pulse Oximetry 95 02/21/24 00:45 Temperature 36.6 C 02/21/24 00:45 Pulse 74 02/21/24 00:45 Respiratory Rate 18 02/21/24 00:45 Respiratory Effort Normal 02/21/24 00:50 Blood Pressure 189/82 H 02/21/24 00:45 Pulse Oximetry 95 02/21/24 00:45 Oxygen Delivery Method Room Air 02/21/24 00:45 Oxygen Flow Rate 0 02/21/24 00:45 Pain Level 2 02/21/24 00:45 Medical Decision Making 78yo M with hx T2DM, afib, CHF, s/p colostomy, recurrent small bowel obstructions 2/t adhesions, presenting with acute intermittent abdominal pain x 1 day and no output from ostomy over the same period of time. History from patient and [facility] record review. Did have admissions here 11/07/23 and 11/17/23 for similar presentations, discharged after being managed medically with improvement in symptoms. Hypertensive on arrival, vital signs otherwise reassuring. On carvedilol at home; given dose here. Non-tender abdomen and has not been vomiting. May be early SBO. Will not place NG tube at this time. He is not septic, abdominal exam not peritoneal. Labs reviewed as below, CBC reassuring with no leukocytosis or anemia; does have thrombocytopenia at 68 decreased from baseline high 90's. No indication for acute intervention at this time. CMP with no actionable abnormalities, bilirubin at baseline. Lipase not suggestive of pancreatitis. Lactate elevated at 3.5; patient does have elevated lactate at baseline on [facility] record review usually ranging from 2.0-4.0 likely 2/t underlying liver disease. With his reassuring abdominal exam less likely that this is 2/t obstruction/ischemia. Does have CHF however no indication of volume overload currently and has had decreased PO food and fluids today; appears in the past when his lactate has been on the higher side it has often been attributed to dehydration and improved with fluid resus. Will give fluid bolus and recheck. CT independently reviewed, agree with radiology read below with SBO. On reassessment patient now reporting some abdominal pain; exam remains benign. Given single dose of 15mg IV toradol (will proceed cautiously given on eliquis), on reassessment denies any pain currently. Abdominal exam remains reassuring. Discussed with hospitalist Dr. Jim; patient thought to be more appropriate for surgical service. Discussed with surgery on-call Dr. Skinner; patient accepted for admission. Requested bridging orders be placed including NPO, mIVF, NG tube which was done. Patient transferred to the floor. Medical Records Medical records reviewed: Yes I reviewed the patient's medical records. Imaging Data Radiologic Study: Imaging: CT Scan Radiologist's impression: IMPRESSION: 1. Small bowel obstruction, similar to the prior examination. This may represent a closed-loop type obstruction. 2. Stable cirrhosis of the liver. Lab Data Lab results reviewed: Yes I reviewed the patient's lab results. Labs: Laboratory Tests Range/Units 02/21/24 01:30 WBC (4.4-10.8) 10^3/uL 6.77 RBC (4.36-5.78) 10^6/uL 4.56 Hgb (13.5-17.5) g/dL 13.8 Hct (40.0-50.0) % 40.9 MCV (80-95) fL 90 MCH (27.0-33.0) pg 30.3 MCHC (32.0-36.0) % 33.7 RDW (11.8-14.1) % 15.2 H Plt Count (130-400) 10^3/uL 68 L MPV (8.0-11.0) fL 10.7 Immature Gran % 0.1 Neutrophils % 68.2 Lymphocytes % 14.3 Monocytes % 9.9 Eosinophils % 7.1 Basophils % 0.4 Nucleated RBC % (0.0-0.3) % 0.0 Absolute Neutrophils (1.2-6.7) 10^3/uL 4.61 Absolute Lymphocytes (1.2-3.4) 10^3/uL 0.97 L Absolute Monocytes (0.1-0.8) 10^3/uL 0.67 Absolute Eosinophils (0.0-0.7) 10^3/uL 0.48 Absolute Basophils (0.0-0.2) 10^3/uL 0.03 VBG Lactate (0.6-1.4) mmol/L 3.5 H* Sodium (136-145) mmol/L 140 Potassium (3.5-5.1) mmol/L 3.4 L Chloride (98-107) mmol/L 106 Carbon Dioxide (21.0-32.0) mmol/L 25.7 Anion Gap (3-11) mmol/L 8.3 BUN (7-18) mg/dL 16 Creatinine (0.70-1.30) mg/dL 1.3 Est GFR (CKD-EPI 2020) (mL/min/1.73m2) 56.58 Glucose (74-106) mg/dL 138 H Calcium (8.5-10.1) mg/dL 9.5 Total Bilirubin (0.2-1.0) mg/dL 1.9 H AST (15-37) U/L 29 ALT (16-63) U/L 16 Alkaline Phosphatase (46-116) U/L 126 H Total Protein (6.4-8.2) g/dL 6.9 Albumin (3.4-5.0) g/dL 3.1 L Lipase (16-77) U/L 90 H Quality:SDOH Health Related Social Needs: Health related social needs inadequate housing, risk of homeless, food insecurity, transpo insecurity, material hardship PFSH All Active Problems (Updated 02/21/24 @ 03:07 by Genia Mari MD) Hypertension (Chronic) Elevated lactic acid level (Acute) CHF (congestive heart failure) (Chronic) Small bowel obstruction (Acute) No-show for appointment (Acute) Left rotator cuff tear (Acute) Acute UTI (urinary tract infection) (Acute) Weakness (Acute) Non-ST elevation [place] (NSTEMI) (Acute) Pre-syncope (Acute) Frequent falls (Acute) Orthostatic hypotension (Acute) Chronic atrial fibrillation (Chronic) Type 2 diabetes mellitus (Chronic) Hypokalemia (Acute) Bradycardia (Acute) Multiple falls (Acute) Acute metabolic encephalopathy (Acute) Medication monitoring encounter (Acute) ANETTE (obstructive sleep apnea) (Chronic) Chest pain (Acute) CHF exacerbation (Acute) CHF (congestive heart failure) (Chronic) Medical History Hypothyroidism Small bowel obstruction Lactic acid acidosis Creatinine elevation Acute UTI Anticoagulated COVID Chronic low back pain Recurrent intestinal obstruction History of colon cancer Palliative care encounter Followed by [facility] Chronic anticoagulation Portal hypertension Cirrhosis [place] [facility] [place] 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 [place].
[2024-02-21] MEDS: Normal Saline - Diluent 50 ML VIAL IJ (01:07)
[2024-02-21] MEDS: Omnipaque 350 MG/ML 100 ML BTL IJ (01:08)
[2024-02-21 01:40] LABS: Abs Immature Grans 0.01 10^3/uL (0.0-0.06); Absolute Basophil Count 0.03 10^3/uL (0.0-0.2); Absolute Eosinophil Count 0.48 10^3/uL (0.0-0.7); Absolute Lymphocyte Count 0.97 10^3/uL (1.2-3.4); Absolute Monocyte Count 0.67 10^3/uL (0.1-0.8); Absolute Neutrophil Count 4.61 10^3/uL (1.2-6.7); Basophils % 0.4; Eosinophils % 7.1; HCT 40.9 % (40.0-50.0); HGB 13.8 g/dL (13.5-17.5); Immature Grans % 0.1; Lactate 3.5 mmol/L (0.6-1.4); Lymphocytes % 14.3; MCH 30.3 pg (27.0-33.0); MCHC 33.7 % (32.0-36.0); MCV 90 fL (80-95); MPV 10.7 fL (8.0-11.0); Monocytes % 9.9; Neutrophils % 68.2; RBC 4.56 10^6/uL (4.36-5.78); RDW 15.2 % (11.8-14.1); RDW-SD 50.1 fL; WBC 6.77 10^3/uL (4.4-10.8)
[2024-02-21] MEDS: Normal Saline 500 ML 1000 ML IV (01:48)
[2024-02-21 01:50] LABS: Platelet Count 68 10^3/uL (130-400)
[2024-02-21 01:53] LABS: Lipase 90 U/L (16-77)
[2024-02-21] MEDS: Ketorolac 15 MG/ML VIAL IVP (01:53)
[2024-02-21 01:56] LABS: ALT 16 U/L (16-63); AST 29 U/L (15-37); Albumin 3.1 g/dL (3.4-5.0); Alkaline Phosphatase 126 U/L (46-116); Anion Gap 8.3 mmol/L (3-11); BUN 16 mg/dL (7-18); Bilirubin, Total 1.9 mg/dL (0.2-1.0); CO2 25.7 mmol/L (21.0-32.0); CREATININE 1.3 mg/dL (0.70-1.30); Calcium 9.5 mg/dL (8.5-10.1); Chloride 106 mmol/L (98-107); Estimated GFR 56.58 (mL/min/1.73m2); Glucose 138 mg/dL (74-106); Potassium 3.4 mmol/L (3.5-5.1); Sodium 140 mmol/L (136-145); Total Protein 6.9 g/dL (6.4-8.2)
[2024-02-21] MEDS: Carvedilol 6.25 MG TAB PO (02:29)
--- NOTE | 2024-02-21 02:43 | DI.VRAD_ITS ---
PROCEDURE INFORMATION: Exam: CT Abdomen And Pelvis With Contrast Exam date and time: 02/21/2024 1:38 AM Age: 79 years old Clinical indication: Abdominal pain; Additional info: Abd pain, no stool in ostomy bag, HX sbo TECHNIQUE: Imaging protocol: Computed tomography of the abdomen and pelvis with contrast. Contrast material: OMNI 350; Contrast volume: 100 ml; Contrast route: INTRAVENOUS (IV); COMPARISON: CT ABDOMEN PELVIS W 05/28/2024 13:54 FINDINGS: Liver: Cirrhotic liver. A TIPS catheter is present. A small hypoattenuating focus in the left lobe is unchanged. Gallbladder and bile ducts: Contracted gallbladder. No biliary ductal dilatation. Pancreas: Normal. No ductal dilation. Spleen: Splenomegaly. Adrenal glands: Normal. No mass. Kidneys and ureters: No hydronephrosis. Stomach and bowel: Partial colectomy with a left lower quadrant colostomy. There are dilated small bowel loops in the ventral abdomen measuring up to 8 cm, similar to the prior examination. No mucosal thickening. Appendix: No evidence of appendicitis. Intraperitoneal space: Unremarkable. No free air. No significant fluid collection. Vasculature: Atherosclerosis of the abdominal aorta without aneurysm or dissection. Lymph nodes: Unremarkable. No enlarged lymph nodes. Urinary bladder: Unremarkable as visualized. Reproductive: Unremarkable as visualized. Bones/joints: Degenerative changes of the lumbar spine. No acute fracture. Soft tissues: Bilateral inguinal hernias containing fat. IMPRESSION: 1. Small bowel obstruction, similar to the prior examination. This may represent a closed-loop type obstruction. 2. Stable cirrhosis of the liver. Dictated and Authenticated by: Se Valenzuela MD. Ordering:PIETER Cormier MD
[2024-02-21 03:28] LABS: Lactate 3.9 mmol/L (0.6-1.4)
--- NOTE | 2024-02-21 03:30 | DI.RAD_ITS ---
Exam(s) XR PORTABLE CHEST AP EXAM: XR PORTABLE CHEST AP CLINICAL HISTORY: line placement (ng tube). TECHNIQUE: 2D digital imaging was performed. COMPARISON: CR,XR XR CHEST 2V PA LATERAL from 01/19/2024 FINDINGS: Single AP portable view. Cardiomegaly again noted. Mediastinum is not widened. No infiltrates nor pleural effusions. Distal tip of the NG tube is slightly below the GE junction and should be further advanced into the s tomach IMPRESSION: In G-tube should be further advanced into the stomach. Future images for NG should be using KUB abdomen technique which exhibits higher penetration and ther efore better visualization of the NG tube. DATA REPOSITORY: RADIATION DOSE DELIVERED:
--- NOTE | 2024-02-21 03:59 | DI.VRAD_ITS ---
PROCEDURE INFORMATION: Exam: XR Chest Exam date and time: 02/21/2024 3:49 AM Age: 79 years old Clinical indication: Device placement; Ng tube; Additional info: Line placement (ng tube) TECHNIQUE: Imaging protocol: Radiologic exam of the chest. Views: 1 view. COMPARISON: CR XR CHEST 2V PA LATERAL 19/01/2024 00:47 FINDINGS: Tubes, catheters and devices: Nasogastric tube projects 8 cm below the left hemidiaphragm. Lungs: Unremarkable. No consolidation. Pleural spaces: Unremarkable. No pleural effusion. No pneumothorax. Heart/Mediastinum: Unremarkable. No cardiomegaly. Bones/joints: Unremarkable. IMPRESSION: NG tube overlies the stomach as above and can be advanced several centimeters. Dictated and Authenticated by: Se Valenzuela MD. Ordering:PIETER Cormier MD
--- NOTE | 2024-02-21 04:45 | DI.RAD_ITS ---
Exam(s) XR PORTABLE CHEST AP EXAM: XR PORTABLE CHEST AP CLINICAL HISTORY: NG tube advanced, confirm placement. TECHNIQUE: 2D digital imaging was performed. COMPARISON: CR,XR XR PORTABLE CHEST AP from 02/21/2024 FINDINGS: Single AP portable view. Heart size unchanged. Mediastinum unchanged. No infiltrates nor pleural effusions. Distal tip of the NG tube is difficult to evaluate for because of the exposure here. Recommend KUB of the upper abdomen for better determination of the position of the NG tube. IMPRESSION: As above. Needs KUB of the abdomen. DATA REPOSITORY: RADIATION DOSE DELIVERED:
[2024-02-21] MEDS: DEXTROSE 5%-0.45% SALINE 1,000 ML 125 ML IV (04:51)
[2024-02-21] MEDS: Ondansetron 4 MG/2 ML VIAL IVP ×2 (04:51→22:37)
[2024-02-21] MEDS: fentaNYL 100 MCG/2 ML VIAL 25 MCG IVP ×4 (04:51→22:39)
--- NOTE | 2024-02-21 05:41 | DI.VRAD_ITS ---
PROCEDURE INFORMATION: Exam: XR Chest Exam date and time: 02/21/2024 5:09 AM Age: 79 years old Clinical indication: Device placement; Ng tube; Additional info: Ng tube advanced, confirm placement TECHNIQUE: Imaging protocol: Radiologic exam of the chest. Views: 1 view. COMPARISON: CR XR PORTABLE CHEST AP 21/02/2024 03:49 FINDINGS: Tubes, catheters and devices: The nasogastric tube tip is not clearly visualized. Lungs: Unremarkable. No consolidation. Pleural spaces: Unremarkable. No pleural effusion. No pneumothorax. Heart/Mediastinum: Unremarkable. No cardiomegaly. Bones/joints: Unremarkable. IMPRESSION: Limited examination. The nasogastric tube tip is not clearly visualized. Dictated and Authenticated by: Se Valenzuela MD. Ordering:EVERETTE Prasad MD
--- NOTE | 2024-02-21 09:35 | INITIAL_ITS ---
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 He is an [employer] and is 100% [facility] with [facility]. Merrill occasionally uses a walker for ambulatory assistance and is independent with his ADLs. He also owns a scooter which he uses outside, weather permitting. CURRENT FUNCTIONAL STATUS:: Osmar was lying in bed when talking with CM. He describes having a bowel obstruction in the past and taking a substance that helped alleviate blockage; after consultation, RN was able to provide this. Osmar shared he was in some pain and looked forward to having relief. He shared he looks forward to discharge so he can work on building his porch. CM following. ADVANCE DIRECTIVES:: Not on file at [facility] CODE STATUS:: Full Code INSURANCE COVERAGE / FINANCIAL ISSUES:: [place] CURRENT HOME/COMMUNITY SERVICES/EQUIPMENT:: Walker, scooter. full services PRIMARY CARE PHYSICIAN:: Maryann Whitt POTENTIAL DISCHARGE NEEDS:: follow up with PCP and plan of care PATIENT/FAMILY EDUCATION NEEDS:: Review of discharge instructions, activity, limitations, follow up plan, discuss Ask Me Three ANTICIPATED BARRIERS TO DISCHARGE:: None identified TRANSPORTATION:: via private vehicle with family PLAN:: Anticipate Merrill will be discharged home when medically cleared. He will follow up with his providers at the [facility] and will transport with family. CM will follow and continue to assess for discharge needs. PFSH All Active Problems (Updated 02/23/24 @ 08:15 by Carl Burton MD) Ventricular ectopy (Acute) Sinus bradycardia (Acute) Small bowel obstruction (Acute) Leukocytosis (Acute) Hypertension (Chronic) Elevated lactic acid level (Acute) CHF (congestive heart failure) (Chronic) No-show for appointment (Acute) Left rotator cuff tear (Acute) Acute UTI (urinary tract infection) (Acute) Weakness (Acute) Non-ST elevation [place] (NSTEMI) (Acute) Pre-syncope (Acute) Frequent falls (Acute) Orthostatic hypotension (Acute) Chronic atrial fibrillation (Chronic) Type 2 diabetes mellitus (Chronic) Hypokalemia (Acute) Bradycardia (Acute) Multiple falls (Acute) Acute metabolic encephalopathy (Acute) Medication monitoring encounter (Acute) ANETTE (obstructive sleep apnea) (Chronic) Chest pain (Acute) CHF exacerbation (Acute) CHF (congestive heart failure) (Chronic) Medical History Hypothyroidism Small bowel obstruction Lactic acid acidosis Creatinine elevation Acute UTI Anticoagulated COVID Chronic low back pain Recurrent intestinal obstruction History of colon cancer Palliative care encounter Followed by [facility] Chronic anticoagulation Portal hypertension Cirrhosis TIPs placed (?when, [facility] [place] 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 [place]. SDOH(Care Management) Screening Will the Patient Participate in the Screening?: Yes Do you worry about having a steady place to live?: no Problems where you live: no known problems In the past 12 months, have you had to go without electric, gas, oil or water in your home?: no Have you or anyone in your house had to go without enough food to eat?: no Has lack of transportation kept you from medical appointments or from doing things needed for daily living?: yes Has anyone in your support network made you feel unsafe for any reason?: no Social Determinants of Health Comments(SDOH Details): reports son assists with transport and call ambulance for medical needs if he is unavailable Health Related Social Needs Health related social needs: transportation insecurity(Z59.82)
[2024-02-21] MEDS: Normal Saline Flush 10 ML SYR IVP ×2 (10:02→14:12)
[2024-02-21] MEDS: Bisacodyl 10 MG SUPP PR (12:45)
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
[2024-02-21] MEDS: Famotidine 20 MG/2 ML VIAL IVP (14:12)
--- NOTE | 2024-02-21 15:27 | W.MEDCONSULT ---
Date of service: 02/21/24 Time of Service: 15:27 Assessment and Plan Assessment and plan (1) Small bowel obstruction: Status: Acute Assessment and plan: continue use of NG deompression, further management per surgical service (2) Hypertension: Status: Chronic Assessment and plan: use labetalol prn SBP >180. could put him on vasotec however, reluctant to do so in setting of acute illness d/t fluctuating renal function. other alternatives would be hydralazine. I did discuss w/ pharmacist, we do have clonidine patch 0.1 mg so we could use this if the labetalol is not controlling his BP. I like the use of labetalol for multiple reasons including control of afib, ectopy, BP, antiischemia, and d/t his portal hypertension. Qualifiers: Hypertension type: primary hypertension Qualified Code(s): I10 - Essential (primary) hypertension (3) Chronic atrial fibrillation: Status: Chronic Assessment and plan: I would put him on parenteral beta michael while he is NPO. Labetalol would be a good alternative for his home dose of carvedilol. No need for bridge therapy w/ heparin or enoxaparin but he should be on DVT prophylaxis w/ enoxaparin. Ok to use as long as platelets >= 50,000. (4) Type 2 diabetes mellitus: Status: Chronic Assessment and plan: monitor glucose q6h or more often if low or high, cover w/ novolog sliding scale, insulin sensitive (note he has not been on insulin at home but was taking metformin. 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 Diabetes mellitus complication status: with kidney complications Diabetes mellitus complication detail: with chronic kidney disease Chronic kidney disease stage: stage 2 (mild) Qualified Code(s): E11.22 - Type 2 diabetes mellitus with diabetic chronic kidney disease; N18.2 - Chronic kidney disease, stage 2 (mild) (5) ANETTE (obstructive sleep apnea): Status: Chronic Assessment and plan: I would apply CPAP whenever he sleeps but if unable to get adequate seal d/t the NG then use oxygen per NC when he is asleep (6) Chronic anticoagulation: (7) Hypothyroidism: Assessment and plan: while NPO I would give half his usual levothyroxine intravenously Qualifiers: Hypothyroidism type: acquired Qualified Code(s): E03.9 - Hypothyroidism, unspecified (8) CHF (congestive heart failure): Status: Chronic Assessment and plan: patient does not appear to be in acute HF. I reviewed his studies (echocardiogram) from 2022 and his MAT, TR max, mitral annular e' (combined lateral and septal annular) along w/ his E/e' put him in an indeterminate category for diastolic HF. He does not have LVD nor does have any wall motion abormalities. He is not decompensated at this point, Back in Nov 2022 he was acutely decompensated and had pulmonary edema. I do think he probably has diastolic HF. I think we can safely use iv fluids but need to be mindful that he can easily get into acute CHF from volume overload. Qualifiers: Heart failure type: diastolic Heart failure chronicity: chronic Qualified Code(s): I50.32 - Chronic diastolic (congestive) heart failure History of Present Illness History of Present Illness Chief Complaint: abdominal pain Narrative: 79-year-old male with history of colon cancer status ventral AP resection with an ostomy also has cirrhosis status post TIPS, HFpEF, atrial fibrillation chronically anticoagulated with Eliquis, diabetes mellitus type 2, essential pretension, ANETTE, hypothyroidism, remote history of endocarditis who has had a history of prior small bowel obstructions which have been managed in the past with conservative treatment including NG decompression. Patient's most recent hospitalization [facility] was from 01/19/2024 through 01/21/2024 for UTI. He now presented to the emergency department last night with 1 day history of crampy abdominal pain and no output from his ostomy. Evaluation emergency department included CT scan of his abdomen pelvis which demonstrated small bowel obstruction with dilated small bowel loops in the ventral abdomen measuring up to 8 cm similar to prior CT scan from 12/04/2023. He has a cirrhotic looking liver with evidence of a TIPS catheter present and small hypoattenuated focus in the left lobe of the liver that is unchanged. Gallbladder is contracted there is no biliary ductal dilatation pancreas with normal spleen with enlarged kidney showed no hydronephrosis. And no free air in the abdomen. Patient was admitted to the surgical service and underwent NG placement for decompression. The hospital service was asked to consult on this patient for medical management of his medical conditions including parenteral therapy for his hypertension as well as management of his diabetes mellitus. Patient denies any chest pain or pressure or dyspnea. He does describe crampy abdominal pain that he rates a 1-2 on a scale of 10. His current analgesics include fentanyl. I have added some acetaminophen on a scheduled basis to help with his abdominal discomfort. Hopefully we can avoid excess narcotics in order to promote peristalsis and improvement in his SBO. Review of Systems All systems reviewed & are unremarkable except as noted in HPI and below PFSH All Active Problems (Updated 02/21/24 @ 16:51 by Carl Burton MD) Small bowel obstruction (Acute) Hypertension (Chronic) Elevated lactic acid level (Acute) CHF (congestive heart failure) (Chronic) No-show for appointment (Acute) Left rotator cuff tear (Acute) Acute UTI (urinary tract infection) (Acute) Weakness (Acute) Non-ST elevation MD (NSTEMI) (Acute) Pre-syncope (Acute) Frequent falls (Acute) Orthostatic hypotension (Acute) Chronic atrial fibrillation (Chronic) Type 2 diabetes mellitus (Chronic) Hypokalemia (Acute) Bradycardia (Acute) Multiple falls (Acute) Acute metabolic encephalopathy (Acute) Medication monitoring encounter (Acute) ANETTE (obstructive sleep apnea) (Chronic) Chest pain (Acute) CHF exacerbation (Acute) CHF (congestive heart failure) (Chronic) Medical History Hypothyroidism Small bowel obstruction Lactic acid acidosis Creatinine elevation Acute UTI Anticoagulated COVID Chronic low back pain Recurrent intestinal obstruction History of colon cancer Palliative care encounter Followed by [facility] Chronic anticoagulation Portal hypertension Cirrhosis TIPs placed (?when, [facility] [place] 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, [facility] as per pt Non-insulin dependent type 2 diabetes mellitus Incontinence Hypertension Scleral icterus Surgical History S/P TIPS (transjugular intrahepatic portosystemic shunt) Colostomy in place H/O left hemicolectomy Social History Smoking/Tobacco Use Status: Former Tobacco Use Smoking risk assessment performed?: Yes Alcohol Intake: former Drug use: Never Substance use type: does not use Housing: house Do you feel safe at home: Yes Do you feel safe in your relationship?: Yes Additional Social history: Lives with , son, and sick [id number] in [place], moved up from [place] in 2020. [place]. Exam Narrative Exam Narrative: Osmar appears to be older than his stated age of 79 he is alert and oriented although he is a poor historian and has trouble remembering names of people. He was trying to tell me about a surgeon that he intended to go see about his abdominal wall defect but cannot remember the name of the surgeon. HEENT is unremarkable he has no evidence of jaundice Lungs are clear to auscultation Heart is irregularly irregular at controlled rate (review of rhythm is atrial fibrillation w/ PVC's) Abdomen: obese, distended, scar over midline from prior laparotomy, no rebound tenderness nor any involuntary guarding, ostomy on left side, no gas or stool in ostomy bag NG draining green bilious liquid Extremities: no edema or cyanosis, normal pedal pulses, good capillary refill Results Last Vital Signs Temp 36.8 C 02/21/24 11:56 Pulse 58 L 02/21/24 11:56 Resp 16 02/21/24 11:56 BP 190/56 H 02/21/24 11:56 Pulse Ox 93 02/21/24 11:56 Labs 02/21/24 01:30 02/21/24 01:30 Labs: Laboratory Results - last 24 hr 02/21/24 02/21/24 01:30 03:23 WBC 6.77 RBC 4.56 Hgb 13.8 Hct 40.9 MCV 90 MCH 30.3 MCHC 33.7 RDW 15.2 H Plt Count 68 L MPV 10.7 Immature Gran % 0.1 Neutrophils % 68.2 Lymphocytes % 14.3 Monocytes % 9.9 Eosinophils % 7.1 Basophils % 0.4 Nucleated RBC % 0.0 Absolute Neutrophils 4.61 Absolute Lymphocytes 0.97 L Absolute Monocytes 0.67 Absolute Eosinophils 0.48 Absolute Basophils 0.03 VBG Lactate 3.5 H* 3.9 H* Sodium 140 Potassium 3.4 L Chloride 106 Carbon Dioxide 25.7 Anion Gap 8.3 BUN 16 Creatinine 1.3 Est GFR (CKD-EPI 2020) 56.58 Glucose 138 H Calcium 9.5 Total Bilirubin 1.9 H AST 29 ALT 16 Alkaline Phosphatase 126 H Total Protein 6.9 Albumin 3.1 L Lipase 90 H Imaging Chest x-ray: report reviewed and image reviewed Abdomen CT scan report/results: report reviewed EKG: report reviewed and image reviewed
[2024-02-21] MEDS: ACETAMINOPHEN 1,000 MG/100 ML BTL 400 MG IVPB (16:39)
[2024-02-21] MEDS: Prochlorperazine 10 MG/2 ML VIAL IVP (23:50)
[2024-02-22] VITALS (11 sets, daily range): BP systolic 136–170; BP diastolic 38–89; PULSE 50–82; RESP 15–18; TEMP 36.6–37.3; O2SAT 91–95
--- NOTE | 2024-02-22 | DI.CT_ITS ---
Exam(s) CT ABDOMEN PELVIS W EXAM: CT ABDOMEN PELVIS W CLINICAL HISTORY: SBO/eval for ischemia patency of portocaval TIPS. TECHNIQUE: Imaging Protocol: Axial computed tomography images with coronal and sagittal reformatted images were created and reviewed CONTRAST MATERIAL: Intravenous: Omnipaque-350 100cc Oral: Yes. Oral contrast was also administered for bowel opacification. COMPARISON: CT CT ABDOMEN PELVIS W from 02/21/2024 FINDINGS: VISUALIZED LUNG BASES: No nodules nor pleural effusions evident. ABDOMEN: GI: Again noted is a left-sided colostomy. The oral contrast has progressed to the level of the colo stomy bag. There are still abnormally dilated and thickened widened central small bowel loops which appear to be tethered to the anterior abdominal wall. LIVER: Cirrhosis and TIPS stent again noted which does not appear thrombosed. No dilated intrahepati c ducts. GALLBLADDER/BILIARY: Mildly distended. Does not appear to contain calculi. CBD is not dilated. PANCREAS: No evidence of pancreatic mass nor dilatation of the pancreatic duct. SPLEEN: Mild splenomegaly. No lesions in the spleen seen. Splenic and portal veins are patent. ADRENALS: There are no new significant adrenal masses. KIDNEYS:No cysts evident. No solid renal masses. No calculi nor hydronephrosis.. ABDOMINAL AORTA: Abdominal aorta is not enlarged. LYMPH NODES:There is no retroperitoneal nor paraaortic adenopathy. ABDOMINAL WALL: No evidence of significant anterior abdominal wall nor inguinal hernia. GI: There is no evidence of bowel obstruction, free air, nor abscess. PELVIS: GI: No evidence of appendicitis.Distal colectomy with left lower quadrant colostomy and the oral cont rast has progressed to this level. LYMPH NODES: There is no intrapelvic nor inguinal adenopathy. REPRODUCTIVE: Question probable prior prostatectomy. Seminal vesicles are also not identified. URINARY BLADDER: Collapsed around the [place] catheter. OSSEOUS: No fractures and no significant osseous lesions. IMPRESSION: 1. Minimal if any significant change compared to CT scan of 1 day prior. 2. Partial small bowel obstruction again noted secondary to tethered loops of small bowel in the lowe r mid abdomen. Dilated and thickened but no pneumatosis. No free air. No abscess. Distal colectom y with left-sided colostomy. 3. Hepatic cirrhosis and splenomegaly again noted. TIPS shunt is again noted in the liver. There is no ascites. RADIATION DOSE DELIVERED: 1,114.45mGy.cm Total DLP DATA REPOSITORY: All CT scans at this facility are submitted to the National Radiology Data Registry (NRDR) Dose Index Registry (DIR) with the [employer] (A[employer]). RADIATION OPTIMIZATION: All CT scans at this facility use at least one of these dose optimization te chniques: automated exposure control; mA and/or kV adjustment per patient size (includes targeted exa ms where dose is matched to clinical indication); or iterative reconstruction.
[2024-02-22] MEDS: fentaNYL 100 MCG/2 ML VIAL 25 MCG IVP (00:08)
[2024-02-22 00:26] LABS: ALT 19 U/L (16-63); AST 35 U/L (15-37); Albumin 3.1 g/dL (3.4-5.0); Alkaline Phosphatase 127 U/L (46-116); Anion Gap 16.4 mmol/L (3-11); BUN 13 mg/dL (7-18); Bilirubin, Total 3.1 mg/dL (0.2-1.0); CO2 19.6 mmol/L (21.0-32.0); CREATININE 1.1 mg/dL (0.70-1.30); Calcium 9.2 mg/dL (8.5-10.1); Chloride 105 mmol/L (98-107); Estimated GFR 69.14 (mL/min/1.73m2); Glucose 120 mg/dL (74-106); Magnesium 1.7 mg/dL (1.8-2.4); Potassium 3.7 mmol/L (3.5-5.1); Sodium 141 mmol/L (136-145); Total Protein 6.9 g/dL (6.4-8.2)
--- NOTE | 2024-02-22 00:56 | DI.RAD_ITS ---
Exam(s) XR PORTABLE CHEST AP EXAM: XR PORTABLE CHEST AP CLINICAL HISTORY: Pt displaced NG tube, readvanced by nursing. TECHNIQUE: 2D digital imaging was performed. COMPARISON: CR,XR XR PORTABLE CHEST AP from 02/21/2024 FINDINGS: Single AP portable view. Heart size is upper normal. The mediastinum is not widened. Lungs remain clear. No infiltrates nor obvious pleural effusions. IMPRESSION: No acute pulmonary findings on this single AP portable view of the chest. Canal at adequately assess the position of NG tube due to exposure technique. DATA REPOSITORY: RADIATION DOSE DELIVERED:
--- NOTE | 2024-02-22 01:18 | DI.VRAD_ITS ---
PROCEDURE INFORMATION: Exam: XR Chest Exam date and time: 02/22/2024 12:48 AM Age: 79 years old Clinical indication: Device placement; Patient HX: PT displaced ng tube, readvanced by nurse TECHNIQUE: Imaging protocol: Radiologic exam of the chest. Views: 1 view. COMPARISON: CR XR PORTABLE CHEST AP 02/21/2024 5:09 AM FINDINGS: Tubes, catheters and devices: The enteric tube follows a tortuous course extending left of midline, however the tip projects at the expected location of the stomach, 5 cm inferior to the diaphragm. Monitoring wires noted. Lungs: Mild interstitial prominence. No consolidation. Pleural spaces: Unremarkable. No pleural effusion. No pneumothorax. Heart/Mediastinum: Moderate cardiomegaly. Bones/joints: Degenerative changes noted in the spine and shoulders. Intraperitoneal space: No intraperitoneal free air. IMPRESSION: 1. Enteric tube tip at the stomach. 2. Interstitial infiltrates/edema. Dictated and Authenticated by: Kevin Charles MD. Ordering:EVERETTE Prasad MD
[2024-02-22] MEDS: Labetalol 100 MG/20 ML VIAL 20 MG IVP (02:13)
[2024-02-22] MEDS: ACETAMINOPHEN 1,000 MG/100 ML BTL 400 MG IVPB ×3 (02:27→22:30)
[2024-02-22] MEDS: Famotidine 20 MG/2 ML VIAL IVP ×2 (02:27→14:46)
--- NOTE | 2024-02-22 04:00 | RT.EKG_ITS ---
APPROVED REPORT Exam: Resting ECG Reason for Exam: change in morphology Patient Location: I HR:78 bpm ECG Measurements Heart Rate 78 AXIS AL 254 P 25 QRSd 141 QRS -2 QT 454 T 82 QTc 518 Conclusion Sinus rhythm...normal P axis, V-rate 50- 99 Ventricular bigeminy...bigeminy string>4 w/ V complexes Prolonged AL interval...AL >220, V-rate 50- 90 Left bundle branch block...QRSd>120, broad/notched R Baseline wander in lead(s) V1
[2024-02-22] MEDS: Levothyroxine 100 MCG VIAL 50 MCG IVP (06:37)
[2024-02-22 07:03] LABS: HCT 42.1 % (40.0-50.0); HGB 14.5 g/dL (13.5-17.5); MCH 30.5 pg (27.0-33.0); MCHC 34.4 % (32.0-36.0); MCV 88 fL (80-95); MPV 10.8 fL (8.0-11.0); RBC 4.76 10^6/uL (4.36-5.78); RDW 15.2 % (11.8-14.1); RDW-SD 49.1 fL; WBC 13.78 10^3/uL (4.4-10.8)
[2024-02-22 07:08] LABS: Lactate 5.1 mmol/L (0.6-1.4)
[2024-02-22 07:22] LABS: Platelet Count 79 10^3/uL (130-400)
[2024-02-22 07:35] LABS: ALT 18 U/L (16-63); AST 32 U/L (15-37); Albumin 2.9 g/dL (3.4-5.0); Alkaline Phosphatase 115 U/L (46-116); Anion Gap 19.3 mmol/L (3-11); BUN 17 mg/dL (7-18); Bilirubin, Total 3.4 mg/dL (0.2-1.0); CO2 17.7 mmol/L (21.0-32.0); CREATININE 1.3 mg/dL (0.70-1.30); Calcium 8.9 mg/dL (8.5-10.1); Chloride 107 mmol/L (98-107); Estimated GFR 56.58 (mL/min/1.73m2); Glucose 164 mg/dL (74-106); Lipase 26 U/L (16-77); Sodium 144 mmol/L (136-145); Total Protein 6.5 g/dL (6.4-8.2)
[2024-02-22] MEDS: MAGNESIUM SULFATE 2 GM/50 ML BAG IVINF (08:09)
[2024-02-22 08:58] LABS: Lab Add On Test DONE
--- NOTE | 2024-02-22 09:00 | PGE_ITS ---
Date of Service Date of service: 02/22/24 Time of Service: 09:00 Assessment and Plan Assessment and plan (1) Small bowel obstruction: Status: Acute Assessment and plan: continue use of NG deompression, further management per surgical service; with rising lactate, I am concerned for bowel ischemia; repeat KUB and upright has been ordered; await surgical evaluation as to whether or not Osmar will need ex lap and release of SBO. I am concerned w/ his rising WBC and lactate that he may be getting septic, therefore I will check procalcitonin level, obtain blood cultures and begin empiric coverage for Bacteroides and Enterobacteriacae w/ meropenem pending culture results. (2) Hypertension: Status: Chronic Assessment and plan: I discussed w/ Ekaterina, pharmacist, we do have clonidine patch 0.1, however, Osmar's BP has improved overnight, possibly with better pain control however, with rising lactate I am concerned that he may be getting sepsis. Qualifiers: Hypertension type: primary hypertension Qualified Code(s): I10 - Essential (primary) hypertension (3) Chronic atrial fibrillation: Status: Chronic Assessment and plan: I would put him on parenteral beta michael while he is NPO. Labetalol would be a good alternative for his home dose of carvedilol. No need for bridge therapy w/ heparin or enoxaparin but he should be on DVT prophylaxis w/ enoxaparin. Ok to use as long as platelets >= 50,000. I have held his enoxaparin this morning in light of his rising lactate and WBC, anticipating possible ex lap, continue w/ scd for dvt prophylaxis (4) Type 2 diabetes mellitus: Status: Chronic Assessment and plan: monitor glucose q6h or more often if low or high, cover w/ novolog sliding scale, insulin sensitive (note he has not been on insulin at home but was taking metformin. Qualifiers: Diabetes mellitus director long term care insulin use: without director long term care use Diabetes mellitus complication status: with kidney complications Diabetes mellitus complication detail: with chronic kidney disease Chronic kidney disease stage: stage 2 (mild) Qualified Code(s): E11.22 - Type 2 diabetes mellitus with diabetic chronic kidney disease; N18.2 - Chronic kidney disease, stage 2 (mild) (5) ANETTE (obstructive sleep apnea): Status: Chronic Assessment and plan: I would apply CPAP whenever he sleeps but if unable to get adequate seal d/t the NG then use oxygen per NC when he is asleep (6) Chronic anticoagulation: Assessment and plan: on hold for now, no need for bridge therapy for afib (7) Hypothyroidism: Assessment and plan: while NPO I would give half his usual levothyroxine intravenously Qualifiers: Hypothyroidism type: acquired Qualified Code(s): E03.9 - Hypothyroidism, unspecified (8) CHF (congestive heart failure): Status: Chronic Assessment and plan: patient does not appear to be in acute HF. I reviewed his studies (echocardiogram) from 2022 and his MAT, TR max, mitral annular e' (combined lateral and septal annular) along w/ his E/e' put him in an indeterminate category for diastolic HF. He does not have LVD nor does have any wall motion abormalities. He is not decompensated at this point, Back in Nov 2022 he was acutely decompensated and had pulmonary edema. I do think he probably has diastolic HF. I think we can safely use iv fluids but need to be mindful that he can easily get into acute CHF from volume overload. Qualifiers: Heart failure type: diastolic Heart failure chronicity: chronic Qualified Code(s): I50.32 - Chronic diastolic (congestive) heart failure Subjective Subjective Interval history since last seen: Mr Orellana continues to have nausea and abdominal pain, NG drainage yesterday was 1100 and overnight has put out 500 mL. Exam Narrative Exam Narrative: Osmar appears fatigued, but is alert Lungs: clear Heart: RRR w/ extrasystolic beats, soft murmur over apex Abdomen: distended but soft, when I clamped NG to listen for bowel sounds I did hear a few scattered bowel sounds. ostomy bag w/out gas or stool Extremities: no edema Objective Last Vital Signs Temp 37.1 C 02/22/24 08:15 Pulse 67 02/22/24 08:15 Resp 16 02/22/24 08:15 BP 154/63 H 02/22/24 08:15 Pulse Ox 93 02/22/24 08:15 Laboratory Results - last 24 hr 02/21/24 02/21/24 02/22/24 23:21 23:57 06:52 WBC 13.78 H RBC 4.76 Hgb 14.5 Hct 42.1 MCV 88 MCH 30.5 MCHC 34.4 RDW 15.2 H Plt Count 79 L MPV 10.8 VBG Lactate 5.1 H* Sodium Cancelled 141 144 Potassium Cancelled 3.7 4.0 Chloride Cancelled 105 107 Carbon Dioxide Cancelled 19.6 L 17.7 L Anion Gap Cancelled 16.4 H 19.3 H BUN Cancelled 13 17 Creatinine Cancelled 1.1 1.3 Est GFR (CKD-EPI 2020) Cancelled 69.14 56.58 Glucose Cancelled 120 H 164 H Calcium Cancelled 9.2 8.9 Magnesium Cancelled 1.7 L Total Bilirubin 3.1 H 3.4 H AST 35 32 ALT 19 18 Alkaline Phosphatase Cancelled 127 H 115 Total Protein 6.9 6.5 Albumin 3.1 L 2.9 L Lipase 26 Add-On Test Request 02/22/24 Unknown WBC RBC Hgb Hct MCV MCH MCHC RDW Plt Count MPV VBG Lactate Sodium Potassium Chloride Carbon Dioxide Anion Gap BUN Creatinine Est GFR (CKD-EPI 2020) Glucose Calcium Magnesium Total Bilirubin AST ALT Alkaline Phosphatase Total Protein Albumin Lipase Add-On Test Request DONE Time Spent with Patient Time Spent with Patient: 35-49 minutes Time was spent: preparing to see the patient(eg.review tests), ordering medic ations,tests, procedures, referring, communicating with other health director critical care, indepentently interpreting results, counseling the patient and care coordination
[2024-02-22 09:11] LABS: Bilirubin, Direct 1.1 mg/dL (0.0-0.2)
--- NOTE | 2024-02-22 09:15 | DI.RAD_ITS ---
Exam(s) XR ABDOMEN FLAT UPRIGHT EXAM: XR ABDOMEN FLAT UPRIGHT CLINICAL HISTORY: abdominal pain, SBO. TECHNIQUE: 2D digital imaging was performed. COMPARISON: CR XR ABDOMEN FLAT PLATE from 12/05/2023 FINDINGS: 3 views Left lower quadrant ostomy site noted. There are still a few dilated small bowel loops in the lower abdomen, exhibiting fluid levels on upright images. No free intraperitoneal air. TIPS stent noted in the liver. IMPRESSION: Persistent element of small bowel obstruction pattern. No free air. TIPS stent noted. DATA REPOSITORY: RADIATION DOSE DELIVERED:
[2024-02-22 09:16] LABS: Lab Add On Test DONE
--- NOTE | 2024-02-22 09:27 | W.PM.PROGNOT ---
Date of Service Date of service: 02/22/24 Time of Service: 08:30 Assessment and Plan Assessment and plan (1) Small bowel obstruction: Status: Acute Assessment and plan: (a) Continue NG to LIS (b) Will increase IVF to 150ml/hr (c) Will give two doses of Dulcolax supp per colostomy and alternate with two doses of Fleet enemata (d) Have ordered SBFT for Friday morning in radiology dept. If contrast go through, will D/c NG. If contrast fails to pass, patient may need surgical intervention; possibly transfer to tertiary center. (2) Hypertension: Status: Chronic Assessment and plan: (a) Medicine service/Hospitalist on case (b) Labetalol being used for elevated SBP Qualifiers: Hypertension type: primary hypertension Qualified Code(s): I10 - Essential (primary) hypertension (3) Elevated lactic acid level: Status: Acute Assessment and plan: (a) Increased from 3.9 --> 5.1 (b) Was as high as 5 last month. (c) Review of Medical Record shows history of chronic acidosis (d) Will monitor level (4) Leukocytosis: Status: Acute Assessment and plan: (a) WBC increased overnight 6,700 --> 13,700 (b) Patient remains afebrile without antibiotics (c) Had acute UTI last month. Will check CHIQUITA/C&S before starting any antibiotics. Two bacteria that cultured last month were both susceptible to multiple agents, including Ceftriaxone. (5) Confusion: Start date: 02/22/24 Assessment and plan: (a) A little confused this morning. Knows he's in hospital. But thinks its December. (b) Will monitor. (6) CHF (congestive heart failure): Status: Chronic Assessment and plan: (a) CHF by history (b) Will be cautious with how aggressive we hydrate patient. (7) Cirrhosis: Assessment and plan: (a) History of cirrhosis. Has TIPS portocaval shunt in place. Qualifiers: Hepatic cirrhosis type: alcoholic cirrhosis Ascites presence: without ascites Qualified Code(s): K70.30 - Alcoholic cirrhosis of liver without ascites Subjective Subjective Interval history since last seen: Patient had nausea and 1 episode of emesis last night. Changed Zofran to Compazine. Has some nausea this morning, but no further vomiting. Lactate did rise 3.9 --> 5.1, was as high as 5 last month. Total bilirubin daniel 1.9 --> 3.1--> 3.4, but AST and ALT remained about the same, and Alk Phos dropped. Patient does have history of cirrhosis and has TIPS portocaval shunt in place. Patient had UTI last month that grew two different bacteria. He states that he finished his outpatient antibiotics. WBC increased overnight 6,700 --> 13,700. May be related to his obstruction, or a UTI. Will check a CHIQUITA before starting any antibiotics. Both bacteria in his urine last month were sensitive to multiple antibiotics, including Ceftriaxone. This is the third admission this year for SBO. Review of the medical record shows: (1) a note from Chu Barry MD in October 2023 when patient was admitted for the same complaint, that he told her a surgeon had told him that he should never have another abdominal operation. (2) a note from Frantz Jordan MD in November 2023 when patient was admitted for the same complaint, that if patient were not to open up and need surgery, that he should be cared for at a tertiary hospital given his multiple medical comorbidities (cirrhosis, Eliquis, cardiac, colostomy, chronic acidosis, chronic thrombocytopenia, etc.). Exam Narrative Exam Narrative: Patient seen and examined on morning rounds. Resting comfortably in bed on regular nursing floor. Non-toxic appearing. Reports some nausea, but no urge to vomit. Reports abdominal pain 2-3/10, no worse than its been. Const Other: A little confused this morning. Asked patient, do you know where your are? Reply, at the hospital. Asked patient, do you know what month it is? Reply, December. Eyes Other: Slightly icteric. Tbili did rise 1.9 --> 3.1 --> 3.4. Remaining LFT's normal Neck Other: Supple Resp Other: No tachypnea, no SOB. Cardio Other: Denies chest pain. Had some dysrhythmias overnight with some bigeminy and a short run of V-tach. I was told the Hospitalist was notified. GI Other: Soft, there is no guarding and no rebound. No distention when supine. BS are present, and more active than yesterday. Scant output per colostomy. Other: Incontinent of urine. Have placed a [place] catheter and have requested specimen for CHIQUITA/C&S Neuro Other: No focal or lateralizing neuro signs or symptoms. Extrem Other: Spontaneous x4. There is no calf pain. Psych Other: A little confused this morning. Knows he is in hospital. Thinks it is December. Objective Last Vital Signs Temp 98.8 F 02/22/24 08:15 Pulse 67 02/22/24 08:15 Resp 16 02/22/24 08:15 BP 154/63 H 02/22/24 08:15 Pulse Ox 93 02/22/24 08:15 Laboratory Results - last 24 hr 02/21/24 02/21/24 02/22/24 23:21 23:57 06:52 WBC 13.78 H RBC 4.76 Hgb 14.5 Hct 42.1 MCV 88 MCH 30.5 MCHC 34.4 RDW 15.2 H Plt Count 79 L MPV 10.8 VBG Lactate 5.1 H* Sodium Cancelled 141 144 Potassium Cancelled 3.7 4.0 Chloride Cancelled 105 107 Carbon Dioxide Cancelled 19.6 L 17.7 L Anion Gap Cancelled 16.4 H 19.3 H BUN Cancelled 13 17 Creatinine Cancelled 1.1 1.3 Est GFR (CKD-EPI 2020) Cancelled 69.14 56.58 Glucose Cancelled 120 H 164 H Calcium Cancelled 9.2 8.9 Magnesium Cancelled 1.7 L Total Bilirubin 3.1 H 3.4 H AST 35 32 ALT 19 18 Alkaline Phosphatase Cancelled 127 H 115 Total Protein 6.9 6.5 Albumin 3.1 L 2.9 L Lipase 26 Add-On Test Request 02/22/24 02/22/24 09:11 Unknown WBC RBC Hgb Hct MCV MCH MCHC RDW Plt Count MPV VBG Lactate Sodium Potassium Chloride Carbon Dioxide Anion Gap BUN Creatinine Est GFR (CKD-EPI 2020) Glucose Calcium Magnesium Total Bilirubin AST ALT Alkaline Phosphatase Total Protein Albumin Lipase Add-On Test Request DONE DONE Time Spent with Patient Time Spent with Patient: >50 minutes Time was spent: preparing to see the patient(eg.review tests), obtaining and/or reviewing separately otained hiistory, ordering medications,tests, procedures, referring, communicating with other health progressive care nurse, indepentently interpreting results, counseling the patient and care coordination
[2024-02-22 10:15] LABS: Procalcitonin < 0.1 ng/mL
[2024-02-22 10:34] LABS: Bilirubin Negative (Negative); Blood Moderate (Negative); Clarity Sl Cloudy (Clear); Glucose >=1000 mg/dL (Negative); Ketones 40 mg/dL (Negative); Leukocyte Esterase Negative (Negative); Nitrite Positive (Negative); Specific Gravity >= 1.030 (1.005-1.025); Urobilinogen 0.2 mg/dL (Up to 0.2); pH 5.5 (5-8)
[2024-02-22] MEDS: MEROPENEM 1 GM in Normal Saline 100 ML IVPB ×2 (10:36→18:47)
[2024-02-22] MEDS: Bisacodyl 10 MG SUPP PR (10:36)
[2024-02-22 10:42] LABS: Epithelial Cells Few HPF (Negative)
[2024-02-22 10:43] LABS: Bacteria Moderate HPF (Negative); C & S Indicated? Yes; Crystals Negative HPF (Negative); Mucus Negative (Negative)
[2024-02-22] MEDS: Insulin Aspart 300 UNITS/3 ML PEN SC (12:03)
[2024-02-22] MEDS: Normal Saline Flush 10 ML SYR IVP ×2 (12:10→14:52)
--- NOTE | 2024-02-22 12:47 | DI.VRAD_ITS ---
PROCEDURE INFORMATION: Exam: XR Abdomen Exam date and time: 02/22/2024 11:38 AM Age: 79 years old Clinical indication: Other: Abdominal pain, sbo TECHNIQUE: Imaging protocol: Radiologic exam of the abdomen. Views: 2 Views. Upright and supine views. COMPARISON: CT ABDOMEN PELVIS W 02/21/2024 1:38 AM FINDINGS: Lungs: Visualized portions lung bases included appear clear bilaterally. Gastrointestinal tract: Dilated small bowel containing gas and fluid projects over lower abdomen, pelvis similar to images from CT abdomen pelvis 02/21/2024. Evidence of left lower quadrant ostomy. Mild stool and gas of the colon. Intraperitoneal space: No free intraperitoneal air seen. Clips over abdomen, pelvis. Vasculature: Stent over right upper quadrant abdomen. Vascular calcifications. Bones/joints: Degenerative changes spine. Arthritic changes hips bilaterally. IMPRESSION: Dilated small bowel containing gas and fluid projects over lower abdomen, pelvis similar to 02/21/2024. Dictated and Authenticated by: Phoenix Martel MD. Ordering:[facility] Josephine Henry MD
[2024-02-22] MEDS: Enoxaparin 40 MG/0.4 ML SYR SC (14:44)
[2024-02-22] MEDS: Omnipaque 350 MG/ML 50 ML BTL PO (15:15)
[2024-02-22] MEDS: Breeza Beverage 473 ML BTL PO ×2 (15:16→15:17)
[2024-02-22] MEDS: Normal Saline - Diluent 50 ML VIAL IJ (16:17)
[2024-02-22] MEDS: Omnipaque 350 MG/ML 100 ML BTL IJ (16:17)
--- NOTE | 2024-02-22 17:32 | DI.VRAD_ITS ---
PROCEDURE INFORMATION: Exam: CT Abdomen And Pelvis With Contrast Exam date and time: 02/22/2024 4:34 PM Age: 79 years old Clinical indication: Other: Sbo/eval for ischemia \T\ patency of portocaval tips TECHNIQUE: Imaging protocol: Computed tomography of the abdomen and pelvis with contrast. Total images: 1339 Contrast material: 350; Contrast volume: 100 ml; Contrast route: INTRAVENOUS (IV); COMPARISON: CT ABDOMEN PELVIS W 02/21/2024 1:38 AM FINDINGS: Liver: Moderate diffuse hepatic steatosis. Nodular liver contour. 1 cm left hepatic cyst. Tips in place without intraluminal thrombus. Gallbladder and bile ducts: Distended gallbladder without wall thickening or pericholecystic inflammation. No gross biliary dilatation. Pancreas: No mass or peripancreatic stranding. Spleen: Stable mild splenomegaly. Adrenal glands: No adrenal nodule. Kidneys and ureters: No renal mass. No hydronephrosis. No renal or ureteral calculi. Stomach and bowel: A few persistently dilated partially thick walled lower mid abdominal small bowel loops which appear tethered to the anterior abdominal wall. These loops as well as distal small bowel loops opacified with oral contrast. No definite pneumatosis. Distal colectomy with left lower quadrant ostomy. Oral contrast noted within the residual colon and ostomy bag. Appendix: No evidence of appendicitis. Intraperitoneal space: No free air or free fluid. No mesenteric stranding.Mild stable postsurgical presacral edema. Vasculature: Aortoiliac atherosclerotic disease with a 2.5 cm infrarenal abdominal aortic aneurysm. No filling defect in the SMA. Lymph nodes: No significant adenopathy. Urinary bladder: [place] catheter in an empty bladder with secondary bladder intraluminal air. Reproductive: No significant finding. Bones/joints: Moderate bilateral hip osteoarthritis. Severe multilevel lumbar degenerative disc disease. Soft tissues: No significant finding, IMPRESSION: 1. Stable abdominal CT. 2. Partial small bowel obstruction secondary to tethered loops of small bowel in the lower mid abdomen. 3. No specific evidence of bowel ischemia. 4. No tips thrombus. Dictated and Authenticated by: Lm Mathur MD. Ordering:EVERETTE Prasad MD
[2024-02-22] MEDS: Bisacodyl 10 MG SUPP (18:40)
[2024-02-23] VITALS (9 sets, daily range): BP systolic 128–177; BP diastolic 37–78; PULSE 46–70; RESP 14–21; TEMP 36.2–37.4; O2SAT 92–97
--- NOTE | 2024-02-23 | DI.US_ITS ---
APPROVED REPORT EXAM: Comprehensive 2D, Doppler, and color-flow Echocardiogram Patient Location: In-Patient Room/Bed: [address] Broomer: Priscilla Luz RDCS (AE) Indications: Nonsustained VT, HX CHF, +Troponin Other Information Study Quality: Fair. Technically limited study due to body habitus, inability to position patient exa m done supine on stretcher. Conclusion Technically difficult study Left ventricle is mildly dilated. Normal wall thickness. Ejection fraction biplane is 25%. Visuall y appears 30%. Septal motion suggests an IVCD Normal right ventricular size and function Left atrium is moderately dilated. Normal right atrial size Aortic valve sclerosis without stenosis or regurgitation Right ventricular systolic pressure could not be estimated Wall motion Left Ventricle Left ventricle is mildly dilated. Left ventricular systolic function is moderately to severely decrea sed. There is normal left ventricular wall thickness. Regional wall motion abnormalities are noted. T here is no ventricular septal defect visualized. LVEF is 25%. Right Ventricle Right ventricle is not well visualized. Right ventricular systolic function could not be assessed. Atria Left atrium is moderately dilated. The right atrium size is normal. The interatrial septum is intact with no evidence for an atrial septal defect. Aortic Valve The Aortic valve is sclerotic. Aortic valve is trileaflet. There is no aortic valvular stenosis. No a ortic regurgitation is present. Mitral Valve The mitral valve is normal in structure. No evidence of mitral valve stenosis. Mild mitral regurgitat ion. Tricuspid Valve The tricuspid valve is normal in structure. There is no tricuspid valve stenosis. Trace tricuspid reg urgitation. Unable to assess PA pressure. Pulmonic Valve The pulmonary valve is normal in structure. There is no pulmonic valvular stenosis. There is no pulmo gabriel valvular regurgitation. Great Vessels The aortic root is normal in size. Ascending aorta is not well visualized. Aortic arch is not well vi sualized. The IVC collapses <50% with inspiration. Pericardium There is no pericardial effusion. 2D Dimensions IVSD d PLAX 1.02 cm M: 0.6-1.2 Ao Root d 3.26 cm M: 3.1 - 3.7 LVPW d PLAX 1.03 cm M: 0.6 - 1.2 LVID d PLAX 6.00 cm M: 4.2 - 5.8 LVDs 5.29 cm M: 2.5 - 4.0 LV EF Teichholz 25.2 % FS 11.87 % LV EDV (Teich) 180.0 mL LV ESV (Teich) 134.6 mL M-Mode TAPSE 2.85 cm (M/F) >1.7 Auto EF LV EDV A4C LV EDV A2C 242.6 mL LV EDV BP 259.5 mL LV ESV A4C LV ESV A2C 176.6 mL LV ESV BP 192.9 mL LVEF(%) A4C 25.1 % LVEF(%) A2C 27.2 % LVEF(%) BP 25.7 % LV SV A4C 69.0 ml LV SV A2C 66.1 ml LV SV BP 66.6 ml LV CO A4C 4.8 L/min LV CO A2C 3.6 L/min LV CO BP 4.2 L/min HR A4C HR A2C 55.13 BPM LV EDV Index (BP) LA Volume LA Length A4C 7.3 cm LA Length A2C 7.5 cm LA Area A4C s 36.82 cm2 LA Area A2C s 43.70 cm2 LA Vol A4C A-L 157.32 mL LA Vol A2C A-L 217.17 mL LA Vol Biplane A-L 186.7 mL LA Vol/BSA A4C A-L LA Vol/BSA A2C A-L LA Vol/BSA BP A-L 86.1 mL/m2 LA Vol A4C MOD 144.9 mL LA Vol A2C MOD 205.7 mL LA Vol BP MOD 174.1 mL RA Volume RA Area A4C 18.9 cm2 RA ESV A4C (A-L) 58.5mL RA Vol/BSA A4C A-L RA Length A4C 5.2 cm RA ESV A4C (MOD) 54.2mL LV Diastology MV E' medial 0.046 (>0.07 m/s) MV E Vmax 1.03 (0.4-1.3 m/s) MV E/E' MED 22.33 (<14) MV A Vmax 0.90 (0.4-1.3 m/s) MV E' lateral 0.058 (>0.1 m/s) E/A Ratio 1.1 MV E/E' LAT 17.83 (<14) MV E' Average 0.052 m/s MV E/E'(average) 19.83 Aortic Valve AoV Vmax 1.84 m/s LVOT Vmax 1.13 m/s AoV Peak Grad 13.5 mmHg LVOT Peak Grad 5.1 mmHg AoV Area (Vmax) 2.03 cm2 LVOT VTI 0.257 m AoV VTI 0.426 m LVOT Mean Grad 2.8 mmHg AoV Mean Adonay. 1.20 m/s LVOT SV 84.77 mL AoV Mean Grad 6.8 mmHg LVOT Diam s 2.05 cm AoV Area (VTI) 1.99 cm2 Velocity Ratio 0.61 Mitral Valve MV DT 179 (160-240 msec) MV Vmax TIPS 1.04 m/s MV Mean Grad 1.5 (<2mmHg) MV VTI 0.392 m Pulmonary Valve PV Vmax 0.98 (0.5-1.5 m/s) RVOT Vmax 0.66 m/s PV Peak Grad 3.9 mmHg RVOT Peak Gr. 1.7 mmHg PV Mean Adonay 0.66 m/s RVOT VTI 0.171 m PV Mean Grad 2.0 mmHg RVOT Mean Gr. 0.9 mmHg Tricuspid Valve TV S' 0.17 m/s
[2024-02-23] MEDS: Famotidine 20 MG/2 ML VIAL IVP ×2 (02:50→14:50)
[2024-02-23] MEDS: MEROPENEM 1 GM in Normal Saline 100 ML IVPB ×3 (02:50→17:11)
[2024-02-23] MEDS: ACETAMINOPHEN 1,000 MG/100 ML BTL 400 MG IVPB ×2 (04:54→14:51)
[2024-02-23] MEDS: Levothyroxine 100 MCG VIAL 50 MCG IVP (06:24)
--- NOTE | 2024-02-23 06:45 | RT.EKG_ITS ---
APPROVED REPORT Exam: Resting ECG Reason for Exam: 14 beat run VT, bradycardia Patient Location: I HR:50 bpm ECG Measurements Heart Rate [address] 272 P 241 QRSd 136 QRS 8 QT 472 T 193 QTc 431 Conclusion Sinus or ectopic atrial rhythm...P axis (-45,135) Prolonged CT interval...CT >220, V-rate 50- 90 Left bundle branch block...QRSd>120, broad/notched R
[2024-02-23 07:02] LABS: Lactate 1.5 mmol/L (0.6-1.4)
[2024-02-23 07:05] LABS: Abs Immature Grans 0.01 10^3/uL (0.0-0.06); Absolute Basophil Count 0.03 10^3/uL (0.0-0.2); Absolute Eosinophil Count 0.49 10^3/uL (0.0-0.7); Absolute Lymphocyte Count 1.06 10^3/uL (1.2-3.4); Absolute Monocyte Count 0.56 10^3/uL (0.1-0.8); Absolute Neutrophil Count 3.12 10^3/uL (1.2-6.7); Basophils % 0.6; Eosinophils % 9.3; HCT 37.8 % (40.0-50.0); HGB 12.8 g/dL (13.5-17.5); Immature Grans % 0.2; Lymphocytes % 20.1; MCH 30.4 pg (27.0-33.0); MCHC 33.9 % (32.0-36.0); MCV 90 fL (80-95); MPV 11.1 fL (8.0-11.0); Monocytes % 10.6; Neutrophils % 59.2; RBC 4.21 10^6/uL (4.36-5.78); RDW 15.5 % (11.8-14.1); RDW-SD 50.6 fL; WBC 5.27 10^3/uL (4.4-10.8)
[2024-02-23 07:17] LABS: Ammonia 48 umol/L (11-32)
[2024-02-23 07:25] LABS: Platelet Count 63 10^3/uL (130-400)
[2024-02-23 07:26] LABS: Diff Comment PLT Morph Reviewed; RBC Morphology Normal
--- NOTE | 2024-02-23 07:41 | W.PM.PROGNOT ---
Date of Service Date of service: 02/23/24 Time of Service: 07:41 Assessment and Plan Assessment and plan (1) Small bowel obstruction: Status: Acute Assessment and plan: Small bowel obstruction appears to be resolved at this point. Currently on clear liquids) can be advanced today but will defer to surgery's decision on diet advancement. Professional time spent interviewing and examining patient, discussion of goals of care with hospital team (care management, nursing and consulting professionals) was 40 minutes. (2) Ventricular ectopy: Status: Acute Assessment and plan: Check electrolytes, check troponin levels, get an updated echocardiogram (3) Chronic atrial fibrillation: Status: Chronic Assessment and plan: His atrial fibrillation appears to be paroxysmal. He is currently in sinus bradycardia therefore I discontinued his parenteral labetalol. 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 Checked his ECG and he did not have acute ischemic changes. Given his nonsustained V. tach we will check cardiac isoenzymes as well as electrolytes. We will also get an updated echocardiogram today. Last 1 we have on file was from a year ago December 02, 2022 at that time he had normal left ventricular size and function EF 50 to 55%. He also had normal RV size and systolic function. Now that he is taking p.o. and having bowel movements we will resume his anticoagulation. (4) Sinus bradycardia: Status: Acute Assessment and plan: Avoid beta-blockers or any AV melissa blocking medications at this time (5) CHF (congestive heart failure): Status: Chronic Assessment and plan: Patient is not showing any signs of decompensation his last echocardiogram from November 2022 showed normal LV and RV systolic function. We will get an updated echocardiogram this admission particular given his ventricular ectopy and bradycardia. Patient should be on SGLT2 inhibitor on discharge. Qualifiers: Heart failure type: diastolic Heart failure chronicity: chronic Qualified Code(s): I50.32 - Chronic diastolic (congestive) heart failure (6) Hypertension: Status: Chronic Assessment and plan: Patient previously been on carvedilol but given his bradycardia we will hold off carvedilol and put him on an TESS or ARB. Qualifiers: Hypertension type: primary hypertension Qualified Code(s): I10 - Essential (primary) hypertension (7) Type 2 diabetes mellitus: Status: Chronic Assessment and plan: Patient previously was on metformin but given his cardiac issues he would be better off on SGLT 2 inhibitor or GLP-1 agonist. For now recovering with NovoLog per sliding scale. Qualifiers: Diabetes mellitus exterminator termite insulin use: without exterminator termite use Diabetes mellitus complication status: with kidney complications Diabetes mellitus complication detail: with chronic kidney disease Chronic kidney disease stage: stage 2 (mild) Qualified Code(s): E11.22 - Type 2 diabetes mellitus with diabetic chronic kidney disease; N18.2 - Chronic kidney disease, stage 2 (mild) (8) ANETTE (obstructive sleep apnea): Status: Chronic Assessment and plan: I would apply CPAP whenever he sleeps but if unable to get adequate seal d/t the NG then use oxygen per NC when he is asleep (9) Chronic anticoagulation: Assessment and plan: Apixaban was on hold while he was n.p.o. I think we can resume his apixaban now that his SBO has resolved (10) Hypothyroidism: Assessment and plan: Resume his oral dose of levothyroxine Qualifiers: Hypothyroidism type: acquired Qualified Code(s): E03.9 - Hypothyroidism, unspecified Subjective Subjective Interval history since last seen: Patient has had bradycardia issues throught the night w/ HR in the 40's and 50's and some nonsutained VT up to 14 beats. Patient denies any CP or pressure or dyspnea. Abdomen is feeling better since he started stooling yesterday. Exam Narrative Exam Narrative: Osmar is lying in bed wearing his CPAP mask. No acute distress denies any dyspnea or chest pain does not appear to be in any respiratory discomfort. Denies any abdominal pain. Lungs are clear to auscultation Heart is bradycardic but regular no appreciable murmur rub Abdomen soft nondistended nontender normal bowel sounds ostomy bags full of dark brown stool but not melanotic Extremities without peripheral cyanosis or edema Objective Last Vital Signs Temp 37.4 C 02/23/24 05:55 Pulse 46 L 02/23/24 07:08 Resp 14 02/23/24 07:08 BP 128/37 L 02/23/24 05:55 Pulse Ox 95 02/23/24 07:08 Laboratory Results - last 24 hr 02/22/24 02/22/24 02/22/24 06:52 09:11 10:24 WBC RBC Hgb Hct MCV MCH MCHC RDW Plt Count MPV Immature Gran % Neutrophils % Lymphocytes % Monocytes % Eosinophils % Basophils % Nucleated RBC % Absolute Neutrophils Absolute Lymphocytes Absolute Monocytes Absolute Eosinophils Absolute Basophils RBC Morphology VBG Lactate Sodium Potassium Chloride Carbon Dioxide Anion Gap BUN Creatinine Est GFR (CKD-EPI 2020) Glucose Calcium Magnesium Total Bilirubin Conjugated Bilirubin 1.1 H AST ALT Alkaline Phosphatase Ammonia Total Protein Albumin Procalcitonin < 0.1 Urine Color Yellow Urine Clarity Sl Cloudy Urine pH 5.5 Ur Specific [place] >= 1.030 H Urine Protein 100 H Urine Ketones 40 H Urine Blood Moderate H Urine Nitrite Positive H Urine Bilirubin Negative Urine Urobilinogen 0.2 Ur Leukocyte Esterase Negative Urine RBC 10-20 H Urine WBC 10-20 H Ur Epithelial Cells Few Urine Crystals Negative Urine Bacteria Moderate Urine Casts 5-10 Fine Granular Urine Mucus Negative Ur Culture Indicated? Yes Urine Glucose >=1000 H Add-On Test Request DONE 02/22/24 02/23/24 02/23/24 Unknown 06:54 07:00 WBC 5.27 RBC 4.21 L Hgb 12.8 L Hct 37.8 L MCV 90 MCH 30.4 MCHC 33.9 RDW 15.5 H Plt Count 63 L MPV 11.1 H Immature Gran % 0.2 Neutrophils % 59.2 Lymphocytes % 20.1 Monocytes % 10.6 Eosinophils % 9.3 Basophils % 0.6 Nucleated RBC % 0.0 Absolute Neutrophils 3.12 Absolute Lymphocytes 1.06 L Absolute Monocytes 0.56 Absolute Eosinophils 0.49 Absolute Basophils 0.03 RBC Morphology Normal VBG Lactate 1.5 H Cancelled Sodium Cancelled Potassium Cancelled Chloride Cancelled Carbon Dioxide Cancelled Anion Gap Cancelled BUN Cancelled Creatinine Cancelled Est GFR (CKD-EPI 2020) Cancelled Glucose Cancelled Calcium Cancelled Magnesium Cancelled Total Bilirubin Cancelled Conjugated Bilirubin AST Cancelled ALT Cancelled Alkaline Phosphatase Cancelled Ammonia 48 H Total Protein Cancelled Albumin Cancelled Procalcitonin Urine Color Urine Clarity Urine pH Ur Specific [place] Urine Protein Urine [place] Urine Blood Urine Nitrite Urine Bilirubin Urine Urobilinogen Ur Leukocyte Esterase Urine RBC Urine WBC Ur Epithelial Cells Urine Crystals Urine Bacteria Urine Casts Urine Mucus Ur Culture Indicated? Urine Glucose Add-On Test Request DONE Time Spent with Patient Time Spent with Patient: 35-49 minutes Time was spent: preparing to see the patient(eg.review tests), ordering medications,tests, procedures, referring, communicating with other health rn palliative care, indepentently interpreting results, counseling the patient and care coordination
[2024-02-23 08:00] LABS: ALT 15 U/L (16-63); AST 27 U/L (15-37); Albumin 2.6 g/dL (3.4-5.0); Alkaline Phosphatase 100 U/L (46-116); Anion Gap 11.6 mmol/L (3-11); BUN 16 mg/dL (7-18); Bilirubin, Total 2.2 mg/dL (0.2-1.0); CO2 22.4 mmol/L (21.0-32.0); Calcium 8.3 mg/dL (8.5-10.1); Chloride 111 mmol/L (98-107); Estimated GFR 77.52 (mL/min/1.73m2); Glucose 111 mg/dL (74-106); Magnesium 2.2 mg/dL (1.8-2.4); Potassium 3.2 mmol/L (3.5-5.1); Sodium 145 mmol/L (136-145); Total Protein 5.8 g/dL (6.4-8.2)
[2024-02-23 08:01] LABS: Troponin I 59 ng/L (< or =60)
[2024-02-23 08:52] LABS: Lab Add On Test DONE
[2024-02-23 09:41] LABS: Procalcitonin 0.1 ng/mL
[2024-02-23] MEDS: Normal Saline Flush 10 ML SYR IVP ×2 (10:38→21:12)
[2024-02-23] MEDS: Potassium Chloride Liquid 20 MEQ PKT PO ×2 (10:38→14:50)
[2024-02-23] MEDS: POTASSIUM CHLORIDE 20 MEQ/100 ML BAG 50 MEQ IVINF (10:38)
[2024-02-23] MEDS: Apixaban 5 MG TAB PO ×2 (10:38→20:37)
[2024-02-23 11:05] LABS: Troponin I 51 ng/L (< or =60)
--- NOTE | 2024-02-23 11:05 | W.PM.PROGNOT ---
Date of Service Date of service: 02/23/24 Time of Service: 11:05 Assessment and Plan Assessment and plan (1) Hypertension: Status: Chronic Qualifiers: Hypertension type: primary hypertension Qualified Code(s): I10 - Essential (primary) hypertension (2) CHF (congestive heart failure): Status: Chronic (3) Chronic atrial fibrillation: Status: Chronic (4) Type 2 diabetes mellitus: Status: Chronic Qualifiers: Chronic kidney disease stage: stage 2 (mild) Diabetes mellitus complication detail: with chronic kidney disease Diabetes mellitus complication status: with kidney complications Diabetes mellitus fci insulin use: without ocean transportation intermediary use Qualified Code(s): E11.22 - Type 2 diabetes mellitus with diabetic chronic kidney disease; N18.2 - Chronic kidney disease, stage 2 (mild) (5) Small bowel obstruction: Status: Acute Assessment and plan: - Resolved Stop IV fluids Advance diet Ambulate Anticipate discharge Friday or Friday. PT work with patient for ambulation This document was created with voice activated software and may contain errors. 15 mins spent in direct pt care and 25 in non face to face time I did review the case with Dr. Galloway and Dr. Arreola (6) Acute kidney injury: Status: Resolved (7) Hypokalemia: Status: Acute (8) Acute UTI (urinary tract infection): Status: Acute Assessment and plan: - Patient currently has a Ohara catheter in place. Is unclear if this is chronic or placed acutely in the ED. He is currently on meropenem for coverage. 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 he has no abdom pain and good bs Pt is doing better no headaches. No CP or SOB. no productive cough. no dysuria. no leg pain or swelling. Exam Const General: cooperative, healthy appearing, comfortable and no acute distress Orientation: alert, awake and oriented x3 Other: H: A-fib rate controlled L; clear A:. There is no parastomal hernia or prolapse. Previous vertical midline incision noted. There are no hernias. He has good bowel sounds. He has no abdominal pain. Objective Last Vital Signs Temp 36.5 C 02/23/24 08:14 Pulse 54 L 02/23/24 08:14 Resp 17 02/23/24 08:14 BP 150/45 H 02/23/24 08:14 Pulse Ox 96 02/23/24 08:14 Laboratory Results - last 24 hr 02/23/24 02/23/24 02/23/24 06:54 07:00 08:50 WBC 5.27 RBC 4.21 L Hgb 12.8 L Hct 37.8 L MCV 90 MCH 30.4 MCHC 33.9 RDW 15.5 H Plt Count 63 L MPV 11.1 H Immature Gran % 0.2 Neutrophils % 59.2 Lymphocytes % 20.1 Monocytes % 10.6 Eosinophils % 9.3 Basophils % 0.6 Nucleated RBC % 0.0 Absolute Neutrophils 3.12 Absolute Lymphocytes 1.06 L Absolute Monocytes 0.56 Absolute Eosinophils 0.49 Absolute Basophils 0.03 RBC Morphology Normal VBG Lactate 1.5 H Cancelled Sodium 145 Cancelled Potassium 3.2 L Cancelled Chloride 111 H Cancelled Carbon Dioxide 22.4 Cancelled Anion Gap 11.6 H Cancelled BUN 16 Cancelled Creatinine 1.0 Cancelled Est GFR (CKD-EPI 2020) 77.52 Cancelled Glucose 111 H Cancelled Calcium 8.3 L Cancelled Magnesium 2.2 Cancelled Total Bilirubin 2.2 H Cancelled AST 27 Cancelled ALT 15 L Cancelled Alkaline Phosphatase 100 Cancelled Ammonia 48 H Troponin I 59 Total Protein 5.8 L Cancelled Albumin 2.6 L Cancelled Procalcitonin 0.1 Add-On Test Request DONE TNP Time Spent with Patient Time Spent with Patient: 35-49 minutes Time was spent: preparing to see the patient(eg.review tests), obtaining and/or reviewing separately otained hiistory, ordering medications,tests, procedures, referring, communicating with other health hospice spiritual care coordinator, indepentently interpreting results, counseling the patient and care coordination
[2024-02-23] MEDS: Insulin Aspart 300 UNITS/3 ML PEN SC ×2 (12:33→20:33)
--- NOTE | 2024-02-23 15:53 | CMPROGNOTE_ITS ---
Date of service: 02/23/24 Care Management Progress Note Progress Note Text Progress Note Text: S/O: Merrill was lying in bed when meeting with CM. Merrill shared he was feeling better as far as his stomach pain but was experiencing arm pain. RN explains likely related to being due to the potassium administered. He shares he had a visit from his earlier today who he described worring about him; more specifically that it has been a year that he has been working towards getting teeth and this still has not been resolved. Osmar shares he looks forward to getting better. CM following. A: Osmar is a 79 year old admitted to [facility] 02/21/24 for a small bowel obstruction. P: Anticipate Merrill will be discharged home when medically cleared. He will follow up with his providers at the [place] and will transport with family. CM will follow and continue to assess for discharge needs. SDOH(Care Management) Screening Will the Patient Participate in the Screening?: Yes Do you worry about having a steady place to live?: no Problems where you live: no known problems In the past 12 months, have you had to go without electric, gas, oil or water in your home?: no Have you or anyone in your house had to go without enough food to eat?: no Has lack of transportation kept you from medical appointments or from doing things needed for daily living?: yes Has anyone in your support network made you feel unsafe for any reason?: no Social Determinants of Health Comments(SDOH Details): reports son assists with transport and call ambulance for medical needs if he is unavailable Health Related Social Needs Health related social needs: transportation insecurity(Z59.82)
[2024-02-23 16:27] LABS: Potassium 3.8 mmol/L (3.5-5.1)
[2024-02-23] MEDS: Sacubitril/Valsartan 24 mg/26 mg TAB 1 EACH PO (20:37)
[2024-02-23] MEDS: Rifaximin 550 MG TAB PO (20:37)
[2024-02-24] MEDS: MEROPENEM 1 GM in Normal Saline 100 ML IVPB (03:00)
[2024-02-24 03:10] VITALS: BP 151/67; PULSE 51; RESP 16; TEMP 36; O2SAT 93
[2024-02-24] MEDS: Levothyroxine 100 MCG TAB PO (06:06)
[2024-02-24 06:43] LABS: Abs Immature Grans 0.02 10^3/uL (0.0-0.06); Absolute Basophil Count 0.04 10^3/uL (0.0-0.2); Absolute Eosinophil Count 0.48 10^3/uL (0.0-0.7); Absolute Lymphocyte Count 1.05 10^3/uL (1.2-3.4); Absolute Monocyte Count 0.67 10^3/uL (0.1-0.8); Absolute Neutrophil Count 3.52 10^3/uL (1.2-6.7); Basophils % 0.7; Eosinophils % 8.3; HCT 40.2 % (40.0-50.0); HGB 13.8 g/dL (13.5-17.5); Immature Grans % 0.3; Lymphocytes % 18.2; MCH 30.4 pg (27.0-33.0); MCHC 34.3 % (32.0-36.0); MCV 89 fL (80-95); MPV 10.7 fL (8.0-11.0); Monocytes % 11.6; Neutrophils % 60.9; RBC 4.54 10^6/uL (4.36-5.78); RDW 15.2 % (11.8-14.1); RDW-SD 49.7 fL; WBC 5.78 10^3/uL (4.4-10.8)
[2024-02-24 06:56] LABS: Anion Gap 10.4 mmol/L (3-11); BUN 9 mg/dL (7-18); CO2 24.6 mmol/L (21.0-32.0); CREATININE 0.9 mg/dL (0.70-1.30); Calcium 8.2 mg/dL (8.5-10.1); Chloride 108 mmol/L (98-107); Estimated GFR 87.96 (mL/min/1.73m2); Glucose 141 mg/dL (74-106); Potassium 3.1 mmol/L (3.5-5.1); Sodium 143 mmol/L (136-145)
--- NOTE | 2024-02-24 06:58 | PGE_ITS ---
Date of Service Date of service: 02/24/24 Time of Service: 06:59 Assessment and Plan Assessment and plan (1) Hypertension: Status: Chronic Qualifiers: Hypertension type: primary hypertension Qualified Code(s): I10 - Essential (primary) hypertension (2) CHF (congestive heart failure): Status: Chronic (3) Chronic atrial fibrillation: Status: Chronic (4) Type 2 diabetes mellitus: Status: Chronic Qualifiers: Diabetes mellitus equipment operator intermodal yard insulin use: without equipment operator intermodal yard use Diabetes mellitus complication status: with kidney complications Diabetes mellitus complication detail: with chronic kidney disease Chronic kidney disease stage: stage 2 (mild) Qualified Code(s): E11.22 - Type 2 diabetes mellitus with diabetic chronic kidney disease; N18.2 - Chronic kidney disease, stage 2 (mild) (5) Small bowel obstruction: Status: Acute Assessment and plan: - Resolved Tolerating regular diet Ambulate PT work with patient for ambulation D/C home later today (6) Acute kidney injury: Status: Resolved (7) Hypokalemia: Status: Acute (8) Acute UTI (urinary tract infection): Status: Acute Assessment and plan: - Patient currently has a Ohara catheter in place. Is unclear if this is chronic or placed acutely in the ED. He is currently on meropenem for coverage. 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 He states his abdominal pain is continued to be resolved. Denies any nausea or vomiting. (+) BMs. Exam Const General: cooperative, healthy appearing and comfortable Nutritional Appearance: average body habitus Orientation: alert and oriented x3 Resp Effort & Inspection: normal respiratory effort and no cough GI Inspection: normal to inspection Palpation: soft, no guarding and nontender Objective Last Vital Signs Temp 36.0 C L 02/24/24 03:10 Pulse 51 L 02/24/24 03:10 Resp 16 02/24/24 03:10 BP 151/67 H 02/24/24 03:10 Pulse Ox 93 02/24/24 03:10 Laboratory Results - last 24 hr 02/23/24 02/23/24 02/23/24 06:54 08:50 10:22 WBC 5.27 RBC 4.21 L Hgb 12.8 L Hct 37.8 L MCV 90 MCH 30.4 MCHC 33.9 RDW 15.5 H Plt Count 63 L MPV 11.1 H Immature Gran % 0.2 Neutrophils % 59.2 Lymphocytes % 20.1 Monocytes % 10.6 Eosinophils % 9.3 Basophils % 0.6 Nucleated RBC % 0.0 Absolute Neutrophils 3.12 Absolute Lymphocytes 1.06 L Absolute Monocytes 0.56 Absolute Eosinophils 0.49 Absolute Basophils 0.03 RBC Morphology Normal VBG Lactate 1.5 H Sodium 145 Potassium 3.2 L Chloride 111 H Carbon Dioxide 22.4 Anion Gap 11.6 H BUN 16 Creatinine 1.0 Est GFR (CKD-EPI 2020) 77.52 Glucose 111 H Calcium 8.3 L Magnesium 2.2 Total Bilirubin 2.2 H AST 27 ALT 15 L Alkaline Phosphatase 100 Ammonia 48 H Troponin I 59 51 Total Protein 5.8 L Albumin 2.6 L Procalcitonin 0.1 Add-On Test Request DONE TNP 02/23/24 02/23/24 16:00 16:10 WBC RBC Hgb Hct MCV MCH MCHC RDW Plt Count MPV Immature Gran % Neutrophils % Lymphocytes % Monocytes % Eosinophils % Basophils % Nucleated RBC % Absolute Neutrophils Absolute Lymphocytes Absolute Monocytes Absolute Eosinophils Absolute Basophils RBC Morphology VBG Lactate Sodium Potassium Cancelled 3.8 Chloride Carbon Dioxide Anion Gap BUN Creatinine Est GFR (CKD-EPI 2020) Glucose Calcium Magnesium Total Bilirubin AST ALT Alkaline Phosphatase Ammonia Troponin I Total Protein Albumin Procalcitonin Add-On Test Request Time Spent with Patient Time Spent with Patient: <25 minutes Time was spent: preparing to see the patient(eg.review tests), obtaining and/or reviewing separately otained hiistory and counseling the patient
[2024-02-24 07:14] LABS: Diff Comment Diff Reviewed; Platelet Count 70 10^3/uL (130-400); RBC Morphology Normal
[2024-02-24] MEDS: Potassium Chloride Liquid 20 MEQ PKT PO (08:25)
[2024-02-24] MEDS: Empaglifozin 25 MG TAB PO (08:25)
[2024-02-24] MEDS: Spironolactone 25 MG TAB PO (08:25)
[2024-02-24] MEDS: Apixaban 5 MG TAB PO (08:25)
[2024-02-24] MEDS: cefTRIAXone 1 GM/50 ML BAG IVPB (08:26)
[2024-02-24] MEDS: Rifaximin 550 MG TAB PO (08:26)
[2024-02-24] MEDS: Pantoprazole 40 MG TABCR PO (08:26)
[2024-02-24] MEDS: Tamsulosin 0.4 MG CAPCR PO (08:26)
[2024-02-24] MEDS: Sacubitril/Valsartan 24 mg/26 mg TAB 1 EACH PO (08:26)
[2024-02-24] MEDS: POTASSIUM CHLORIDE 20 MEQ/100 ML BAG 50 MEQ IVINF ×2 (08:27→12:07)
[2024-02-24] MEDS: Normal Saline Flush 10 ML SYR IVP (08:27)
[2024-02-24 08:37] LABS: Lab Add On Test DONE
[2024-02-24 08:58] LABS: Magnesium 1.9 mg/dL (1.8-2.4)
[2024-02-24 09:05] VITALS: BP 143/69; PULSE 61; RESP 19; TEMP 37.5; O2SAT 90
--- NOTE | 2024-02-24 10:17 | PHACLINREV_ITS ---
Pharmacy Admission Review Admission Clinical Review Admission Pharmacy Review: (Updated 02/23/24 @ 18:11 by Kristina Nicole DO) Anemia of chronic disease (Acute) Ventricular ectopy (Acute) Sinus bradycardia (Acute) Small bowel obstruction (Acute) Leukocytosis (Acute) Elevated lactic acid level (Acute) Acute UTI (urinary tract infection) (Acute) Hypokalemia (Acute) Penicillins Allergy (Mild, Unverified 02/21/24 00:55) Itching morphine Adverse Reaction (Severe, Unverified 02/21/24 00:55) vomiting mussels Adverse Reaction (Severe, Unverified 02/21/24 00:55) vomiting Resuscitation Status Full Code Height 5 ft 7 in Weight 107.501 kg Pharmacy Admission Review Renal Dosing Renal Dosing: BUN 9 mg/dL (7-18) 02/24/24 06:02 Creatinine 0.9 mg/dL (0.70-1.30) 02/24/24 06:02 Medications needing adjustments: Reviewed (crcl ~72, no adjustments needed) Anticoagulation Anticoagulation: Hgb 13.8 g/dL (13.5-17.5) 02/24/24 06:02 Hct 40.2 % (40.0-50.0) 02/24/24 06:02 Plt Count 70 10^3/uL (130-400) L 02/24/24 06:02 Creatinine 0.9 mg/dL (0.70-1.30) 02/24/24 06:02 DVT Prophylaxis: Reviewed Medications: Apixaban Therapeutic Anticoagulation: Reviewed Medications: Apixaban (5 mg BID (indication: Afib) - had been on hold while NPO (received a dose of enoxaparin 40 mg 02/22/24), apixiban restarted 02/22 am) Opiate Usage Evaluate Pain Scale/Pains Meds: N/A Relevant Labs Relevant Labs: Sodium 143 mmol/L (136-145) 02/24/24 06:02 Potassium 3.1 mmol/L (3.5-5.1) L 02/24/24 06:02 Chloride 108 mmol/L (98-107) H 02/24/24 06:02 Magnesium 1.9 mg/dL (1.8-2.4) 02/24/24 06:02 Electrolytes, C-Reactive P, ESR: Reviewed (KCl 20 mEq IV x 2 ordered this morning, plus additional PO supplementation 20 mEq TID x 3 doses. Had been receiving potassium acetate 20 mEq in 1L NS infusion 02/20-02/22, now dc'd. ) DM Control DM Control: Reviewed Insulin Dosing, Diabetic Medication: insulin aspart SS w/meals & HS. has required minimal coverage (3 doses). also on jardiance 25 mg daily - takes jardiance & metformin (not currently ordered) at home but not insulin Cardiac Review Cardiac Review: Troponin I 51 ng/L (< or =60) 02/23/24 10:22 BP, HR, EF%: Reviewed (BP running ~150s but has been bradycardic. on entresto 24/26 mg BID, spironolactone 25 mg daily. severe cardiomyopathy, EF 25-30% (compared to previous echo 12/02/22 EF 50-55%)) List meds needing interventions: home carvedilol on hold (bradycardia) QTc Review QTc: Reviewed (QTc = 431 02/23/24) IV to PO Switch IV Medications: Reviewed Home Meds Home Med List reviewed: Reviewed Relevent Home Meds Not ordered & why?: carvedilol - bradycardia, furosemide - not currently needed, metformin - received contrast 02/20 & 02/21, prazosin, pregabalin - on hold while NPO, continue to hold for now Current Meds Current Medication Order Review: Reviewed Pharmacy Antibiotic Review Pharmacy Antibiotic Activity: C/S review Comments: had been on meropenem 02/21-02/23 for suspected sepsis, now dc'd. de- escalated to ceftriaxone 1 g q24h (indication: UTI)
[2024-02-24 11:36] VITALS: BP 162/90; PULSE 69; RESP 18; TEMP 36.7; O2SAT 99
[2024-02-24] MEDS: Insulin Aspart 300 UNITS/3 ML PEN SC (12:07)
--- NOTE | 2024-02-24 13:02 | W.PM.DS.N ---
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 Following NG tube decompression, bowel rest and gastrografin challenge the SBO resolved. Patients c/o abdominal pain resolved and he started having BMs. Slowly progressed his diet, which he tolerated well. D/C home on regular diet Follow up with PCP in 2 weeks. Home Meds and New Rx's Prescriptions: Continued prazosin 5 mg Capsule 10 mg PO QHS pantoprazole 40 mg Tablet,Delayed Release (Dr/Ec) 40 mg PO DAILY metformin 1,000 mg Tablet 1,000 mg PO BID pregabalin 50 mg Capsule 50 mg PO BID Eliquis 5 mg Tablet 5 mg PO BID Hold Instructions: until discussed with outpatient team as you have not been taking it. nitroglycerin 0.4 mg Tablet, Sublingual 0.4 mg sublingual Q5 MIN PRN X3 PRNQty: 30 0RF miconazole nitrate 2 % Powder 1 applic TOPICAL BID PRN carvedilol 3.125 mg tablet 3.125 mg PO BID Qty: 0 0RF Patient Comments: TAKE 1 TABLET (3.125MG) BY MOUTH TWICE DAILY Rx Instructions: with meals acetaminophen [Tylenol] 325 mg Capsule 650 mg PO Q8H MDD 3000 PRNQty: 0 0RF Hold Instructions: Changed by Provider rifaximin 550 mg Tablet 550 mg PO BID docusate sodium [Colace] 100 mg Capsule 100 mg PO BID Qty: 60 0RF tamsulosin 0.4 mg Capsule 0.4 mg PO DAILY ferrous sulfate 325 mg (65 mg iron) Tablet 325 mg PO DAILY empagliflozin 25 mg Tablet 25 mg PO DAILY furosemide [Lasix] 20 mg tablet 20 mg PO QAM levothyroxine 200 mcg Tablet 100 mcg PO QAM Qty: 0 0RF Discharge Instructions Instructions: Bowel Obstruction (DC) Activity:: Activity as Tolerated Equipment/Supplies:: No Equipment Needed Diet:: Normal Diet Discharge Orders Discharge Orders: Discharge Order (Routine); Ordered 02/24/24 Ordered By: Vanessa Palmer DS: Summary Time Spent with Patient providing and/or coordinating discharge services: Less than 30 minutes Status at Discharge Functional status at discharge: independent ambulation Overall status at discharge: patient is back to baseline Mental Status: mental status grossly normal Speech and Movement: speech and movement normal Mood: congruent mood Affect: normal affect Quality:SDOH Health Related Social Needs: Health related social needs transpo insecurity Exam Const General: cooperative, healthy appearing and comfortable Nutritional Appearance: average body habitus Orientation: alert and oriented x3 Resp Effort & Inspection: normal respiratory effort and no cough GI Inspection: normal to inspection Palpation: soft, no guarding and nontender Psych Mental Status: mental status grossly normal Speech and Movement: speech and movement normal Mood: congruent mood Affect: normal affect DS: Data Vitals/I&O Vitals and I&O: Vital Signs Temperature 36.7 C 02/24/24 11:36 Temperature Source Tympanic 02/24/24 11:36 Pulse 69 02/24/24 11:36 Pulse Rhythm Regular 02/24/24 08:00 Respiratory Rate 18 02/24/24 11:36 Respiratory Effort Normal 02/24/24 08:00 Respiratory Depth Normal 02/24/24 08:00 Respiratory Pattern Normal 02/24/24 08:00 Blood Pressure 162/90 H 02/24/24 11:36 Blood Pressure Mean 128 02/21/24 03:31 Pulse Oximetry 99 02/24/24 11:36 Oxygen Delivery Method Room Air 02/24/24 11:36 Oxygen Flow Rate 0 02/24/24 11:36 Fraction of Inspired Oxygen (FIO2) 24 02/23/24 07:08 Pain Level 5 02/24/24 11:36 Comment pt refused scd's at this time. 02/24/24 03:10 Intake & Output 02/23/24 02/24/24 02/24/24 18:59 06:59 18:59 Intake Total 1830.833 / 1930.833 100 / 1930.833 450 / 450 Output Total 1800 / 3290 1490 / 3290 1400 / 1400 Balance 30.833 / -1359.167 -1390 / -1359.167 -950 / -950 Intake: IV 1830.833 / 1930.833 100 / 1930.833 100 / 100 Oral 350 / 350 Output: Urine 1800 / 3250 1450 / 3250 1400 / 1400 Stool 40 / 40 Other: Urine Color Yellow Pale Yellow Yellow Urine Appearance Clear Clear Clear Urine Odor None Comment Open skin L scrotum, ariana area redness scant excoriations around glans. scant purulent drainage, near insertion site. Stool Characteristics Soft Brown Voiding Methods Urinal Data Completed and Pending Labs on day of discharge: Labs from last 24 hours 02/24/24 02/24/24 02/23/24 14:00 06:02 16:10 WBC 5.78 RBC 4.54 Hgb 13.8 Hct 40.2 MCV 89 MCH 30.4 MCHC 34.3 RDW 15.2 H Plt Count 70 L MPV 10.7 Immature Gran % 0.3 Neutrophils % 60.9 Lymphocytes % 18.2 Monocytes % 11.6 Eosinophils % 8.3 Basophils % 0.7 Nucleated RBC % 0.0 Absolute Neutrophils 3.52 Absolute Lymphocytes 1.05 L Absolute Monocytes 0.67 Absolute Eosinophils 0.48 Absolute Basophils 0.04 RBC Morphology Normal Sodium 143 Potassium Pending 3.1 L 3.8 Chloride 108 H Carbon Dioxide 24.6 Anion Gap 10.4 BUN 9 Creatinine 0.9 Est GFR (CKD-EPI 2020) 87.96 Glucose 141 H Calcium 8.2 L Magnesium 1.9 Add-On Test Request DONE 02/23/24 16:00 WBC RBC Hgb Hct MCV MCH MCHC RDW Plt Count MPV Immature Gran % Neutrophils % Lymphocytes % Monocytes % Eosinophils % Basophils % Nucleated RBC % Absolute Neutrophils Absolute Lymphocytes Absolute Monocytes Absolute Eosinophils Absolute Basophils RBC Morphology Sodium Potassium Cancelled Chloride Carbon Dioxide Anion Gap BUN Creatinine Est GFR (CKD-EPI 2020) Glucose Calcium Magnesium Add-On Test Request Preliminary micro results at discharge 02/22/24 09:40 Blood Culture - Preliminary Blood NO GROWTH 48 HOURS 02/22/24 09:50 Blood Culture - Preliminary Blood NO GROWTH 48 HOURS PFSH All Active Problems (Updated 02/23/24 @ 18:11 by Kristina Nicole DO) Anemia of chronic disease (Acute) Thrombocytopenia (Chronic) Ventricular ectopy (Acute) Sinus bradycardia (Acute) Small bowel obstruction (Acute) Leukocytosis (Acute) Hypertension (Chronic) Elevated lactic acid level (Acute) CHF (congestive heart failure) (Chronic) No-show for appointment (Acute) Left rotator cuff tear (Acute) Acute UTI (urinary tract infection) (Acute) Weakness (Acute) Non-ST elevation [place] (NSTEMI) (Acute) Pre-syncope (Acute) Frequent falls (Acute) Orthostatic hypotension (Acute) Chronic atrial fibrillation (Chronic) Type 2 diabetes mellitus (Chronic) Hypokalemia (Acute) Bradycardia (Acute) Multiple falls (Acute) Acute metabolic encephalopathy (Acute) Medication monitoring encounter (Acute) ANETTE (obstructive sleep apnea) (Chronic) Chest pain (Acute) CHF exacerbation (Acute) CHF (congestive heart failure) (Chronic) EF 25%- 2023 Medical History Hypothyroidism Small bowel obstruction Lactic acid acidosis Creatinine elevation Acute UTI Anticoagulated COVID Chronic low back pain Recurrent intestinal obstruction History of colon cancer Palliative care encounter Followed by [facility] Chronic anticoagulation Portal hypertension Cirrhosis TIPs placed (?when, [facility]? 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 [place]. Time Spent with Patient Time Spent with Patient: <45 minutes Time was spent: preparing to see the patient(eg.review tests), obtaining and/or reviewing separately otained hiistory and counseling the patient
--- NOTE | 2024-02-24 14:14 | W.PM.PROGNOT ---
Date of Service Date of service: 02/24/24 Time of Service: 14:14 Assessment and Plan Assessment and plan (1) Small bowel obstruction: Status: Acute Assessment and plan: SBO has resolved and he is making adequate stool w/ no abdominal complaints whatsovever. I would continue on miralax at home to keep him regular. (2) Ventricular ectopy: Status: Acute Assessment and plan: patient has had couple of 3 beat runs of ventricular ectopy but no sustained VT. He should have follow up cardiac event recorder upon discharge and his PCP should refer him to cardiology for ischemic workup and consideration of AICD given his low LVEF (3) Chronic atrial fibrillation: Status: Chronic Assessment and plan: rhythm overnightt was sinus bradycardia to sinus rhythm w/HR in the 50's to 60's and 1st degree AV block. I would keep him off his carvedilol and again follow up w/ outpatient cardiac event recorder w/ referral to cardiology services, he may need pacer in addition to AICD (4) Sinus bradycardia: Status: Acute Assessment and plan: as above (5) CHF (congestive heart failure): Status: Chronic Assessment and plan: patient has HFREF w/ LVEF of 25 to 30% but normal RV function. I have put him on goal directed therapy w/ spironolactone and Entresto and Jardiance. He needs cardiology followup to consider heart cath to see if he has anything that could be stented and improve his coronary blood flow. Atorvastatin has been added for secondary ischemic prevention Qualifiers: Heart failure type: diastolic Heart failure chronicity: chronic Qualified Code(s): I50.32 - Chronic diastolic (congestive) heart failure (6) Hypertension: Status: Chronic Assessment and plan: remain off carvediolol as noted above; continue Entresto, spironolactone and lasix. Qualifiers: Hypertension type: primary hypertension Qualified Code(s): I10 - Essential (primary) hypertension (7) Type 2 diabetes mellitus: Status: Chronic Assessment and plan: continue metformin and Jardiance, goal should be HbA1C <8%. Qualifiers: Diabetes mellitus manager terminal insulin use: without nursing home use Diabetes mellitus complication status: with kidney complications Diabetes mellitus complication detail: with chronic kidney disease Chronic kidney disease stage: stage 2 (mild) Qualified Code(s): E11.22 - Type 2 diabetes mellitus with diabetic chronic kidney disease; N18.2 - Chronic kidney disease, stage 2 (mild) (8) ANETTE (obstructive sleep apnea): Status: Chronic Assessment and plan: patient should have CPAP at home. PCP should follow up on this. (9) Chronic anticoagulation: Assessment and plan: resume apixaban. he is high risk for CVA given his HFREF and PAF, and DM. (10) Hypothyroidism: Assessment and plan: continue home dose of levothyroxine Qualifiers: Hypothyroidism type: acquired Qualified Code(s): E03.9 - Hypothyroidism, unspecified Subjective Subjective Interval history since last seen: Mr Orellana says that he is feeling markedly better. Tolerating diet. No nausea or abdominal pain. Stool forming in his colostomy. He denies any dyspnea or CP. I explained to Mr. Orellana that he has congestive heart failure (he did not seem surprised at this) and I explained to him that there has been significant decline in his heart function since Nov 2022 when his last echo was done. He does give hx of intermittent palpitations and chest pressure that is usually relieved by NTG SL. I explained to him that I have put him on goal directed therapy for CHF and am recommending he discuss w/ his PCP about having outpatient ischemic workup or having cardiology referral for cardiac cath. Exam Narrative Exam Narrative: Osmar appears much more engaged, alert, he looks more like himself. He denies any dyspnea or abdominal pain. Lungs:clear Heart: RRR, soft systolic mumur over apex Abdomen: good bowel sounds, ostomy w/ liquid stool in bag, abdomen is nontender and not distended Extremities: no edema or cyanosis Objective Last Vital Signs Temp 36.7 C 02/24/24 11:36 Pulse 69 02/24/24 11:36 Resp 18 02/24/24 11:36 BP 162/90 H 02/24/24 11:36 Pulse Ox 99 02/24/24 11:36 Laboratory Results - last 24 hr 02/23/24 02/24/24 16:10 06:02 WBC 5.78 RBC 4.54 Hgb 13.8 Hct 40.2 MCV 89 MCH 30.4 MCHC 34.3 RDW 15.2 H Plt Count 70 L MPV 10.7 Immature Gran % 0.3 Neutrophils % 60.9 Lymphocytes % 18.2 Monocytes % 11.6 Eosinophils % 8.3 Basophils % 0.7 Nucleated RBC % 0.0 Absolute Neutrophils 3.52 Absolute Lymphocytes 1.05 L Absolute Monocytes 0.67 Absolute Eosinophils 0.48 Absolute Basophils 0.04 RBC Morphology Normal Sodium 143 Potassium 3.8 3.1 L Chloride 108 H Carbon Dioxide 24.6 Anion Gap 10.4 BUN 9 Creatinine 0.9 Est GFR (CKD-EPI 2020) 87.96 Glucose 141 H Calcium 8.2 L Magnesium 1.9 Add-On Test Request DONE Time Spent with Patient Time Spent with Patient: 25-34 minutes Time was spent: preparing to see the patient(eg.review tests), ordering medications,tests, procedures, referring, communicating with other health director of healthcare systems (my recommendations were discussed w/ Dr. Nicole), indepentently interpreting results, counseling the patient and care coordination
--- NOTE | 2024-02-24 15:00 | IN_ITS ---
PT Notes Visit Reasons: small bowel obstruction Physical Therapy Inpatient Initial Evaluation Date: 02/24/2024 Referring Doctor: Osmar Skinner MD PT Orders: PT CONSULT: Extended stay weakness. Exacerbation Chronic Cond Precautions: Fall. Standard. Activity as tolerated. Colostomy bag in place. Patient Profile/Admitting Diagnosis:? Osmar is a 79-year-old male patient with past medical history significant for colon cancer with colostomy in place intermittent acute abdominal pain and admitted for management of HTN, elevated lactic acid, SBO, abdominal distension and decrased colostomy output. PMHX: All Active Problems (Updated 02/21/24 @ 13:52 by Osmar Skinner DO) Small bowel obstruction (Acute) Hypertension (Chronic) Elevated lactic acid level (Acute) CHF (congestive heart failure) (Chronic) No-show for appointment (Acute) Left rotator cuff tear (Acute) Acute UTI (urinary tract infection) (Acute) Weakness (Acute) Non-ST elevation [place] (NSTEMI) (Acute) Pre-syncope (Acute) Frequent falls (Acute) Orthostatic hypotension (Acute) Chronic atrial fibrillation (Chronic) Type 2 diabetes mellitus (Chronic) Hypokalemia (Acute) Bradycardia (Acute) Multiple falls (Acute) Acute metabolic encephalopathy (Acute) Medication monitoring encounter (Acute) ANETTE (obstructive sleep apnea) (Chronic) Chest pain (Acute) CHF exacerbation (Acute) CHF (congestive heart failure) (Chronic) Medical History Hypothyroidism Small bowel obstruction Lactic acid acidosis Creatinine elevation Acute UTI Anticoagulated COVID Chronic low back pain Recurrent intestinal obstruction History of colon cancer Palliative care encounter [facility] Portal hypertension Cirrhosis TIPs placed (?when, [facility]? 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 has not been doing well herself but cannot help patient physically. Son may be available as needed during the day. Ambulatory inside the house using FWW. Has a stair lift leading to the bedroom upstairs. Equipment Owned/DME: 4WW, FWW, SPC, scooter, stair lift Subjective: Agreeable to mobility assessment prior to discharge this afternoon. Objective: General Observation: Supine in bed. Telemetry monitoring in place. Colostomy bag in place. Mental Status: Alert and oriented as to person, place, time, and purpose. Able to pay attention, focus, and respond appropriately. Pain: None reported Vital Signs: Closely monitored by nursing staff ROM: Right Upper Extremity: ? Shoulder Flexion WFL. Shoulder abduction WFL. Elbow flexion WFL. Wrist flexion WFL. Functional opening and closing of hand WFL. Left Upper Extremity:? Shoulder Flexion allows up to 90 degrees only. Shoulder abduction allows up to 80 degrees only. Elbow flexion WFL. Wrist flexion WFL. Functional opening and closing of hand WFL. Right Lower Extremity: Hip flexion lacks the last 25% discomfort. Hip abduction WFL. Knee flexion 20 degrees to 90 degrees. Knee extension -20 degrees. Ankle dorsiflexion to neutral only. Ankle plantarflexion WFL. Left Lower Extremity: Hip flexion WFL. Hip abduction WFL. Knee flexion WFL. Ankle dorsiflexion to neutral only. Ankle plantarflexion WFL. Strength: Right Upper Extremity: Shoulder flexors 4-/5. Shoulder abductors 4-/5. Elbow flexors 4-/5. Elbow extensors 4-/5. Entry Level Account Executive strong. Left Upper Extremity: Shoulder flexors 3-/5. Shoulder abductors 3-/5. Elbow flexors 4-/5. Elbow extensors 4-/5. Entry Level Account Executive strong. Right Lower Extremity: Hip flexors 4-/5. Hip abductors 4-/5. Knee flexors 5-/5. Knee extensors 4-/5. Ankle dorsiflexors 3-/5. Ankle plantarflexors 4-/5. Left Lower Extremity: Hip flexors 4-/5. Hip abductors 4-/5. Knee flexors 5-/5. Knee extensors 4-/5. Ankle dorsiflexors 3-/5. Ankle plantarflexors 4-/5. Bed Mobility/Transfers: Moderate cueing provided for use of B hands as needed for support, movement sequence, Ad management, and and posture to reduce fall risk and minimize pain report. Supine to sit supervision Sit to stand supervision Stand to sit supervision Gait: Instructed patient with level surface ambulation of 250 feet + 150 feet requiring stand by assist using front-wheeled walker. Moderate verbal cueing provided for walker management, directional change, and overall safety. Balance: Static Sitting: Normal Dynamic Sitting: Normal Static Standing: Fair Dynamic Standing: Fair Special Tests: Mobility Limitations Standardized Measure [facility] 6 clicks Basic Mobility Inpatient Short Form: Raw Score: 24 ? CMS Score: 0% deficit? ? ? 4-Stage Balance test: Feet together 10 seconds [id number] 10 seconds Full tandem <10 seonds One-legged stance <10 seconds Informed Consent/Education:? Patient was instructed in purpose of PT consult and plan of care. Agreeable to proceed with established PT POC to achieve personal goals. ASSESSMENT: At risk for falls, requires use of FWW for all mobility ADL performance. P atient presents with clinical signs and symptoms consistent with current/admitting diagnoses that have resulted to mobility limitations, gait instability, generalized weakness, and overall ADL decline as demonstrated by the following impairment level findings: 1.? Impaired standing balance 2.? Impaired activity tolerance Impairments are contributing to the following functional limitations: 1.? Difficulty with ambulation without assistive device 2.? Increased completion time for mobility ADL performance 3.? Increased risk for falls Patient is assessed as a 58234 moderate complexity based on the following: History: 78-year-old male with past medical history as indicated above Examination: Demonstrable impairment in strength, balance, and mobility level with underlying impairments and functional limitations as exhibited above Presentation: Evolving Decision Makin moderate complexity Goals: N/A. PT evaluation only. Plan of Care/Treatment Plan: N/A. PT evaluation only. DISCHARGE RECOMMENDATIONS: [] ? Home with no services [] [X] ? Home with services. RESUME home health PT services in order to progress mobility level using least restrictive assistive ambulatory device, assess home safety, identify additional equipment needs, and establish a functional maintenance program that will increase ability of patient to remain at home. [] ? Home with outpatient PT [] [] ? SNF for continued rehabilitation [] [] ? Snf Care [] [] ? SNF versus LTC based on ability to participate and progress [] TREATMENT CODE/TIME: 59306 x 18 minutes for 1 unit (14:41-14:59). Thank you for the opportunity to participate in the care of this patient. Nita Denis PT, DPT, CLT [facility] [place], [place]
[2024-02-24 15:04] LABS: Potassium 4.4 mmol/L (3.5-5.1)
--- NOTE | 2024-02-24 18:10 | PDOC.CMDIS ---
Date of service: 02/24/24 Time of Service: 18:10 LACE Index Scoring Tool Questions: Length of Stay (in days): 3 Was the patient admitted via the E.D.?: Yes Comorbidities: Previous M.I., Diabetes w/o Complication and Congestive Heart Failure E.D. Visits: 8 Answers: Total Score: 15 Risk of Readmission: High Risk Care Management Discharge Plan Reason for Hospitalization: Small bowel obstruction Discharge Plan: Osmar returned home today with a resumption of HH services. PT evaluated him prior to discharge and recommended HH PT. He was transported home via private vehicle by family. He will follow up with [facility] providers and his discharge plan of care. He was happy to be going home. Patient/Family Education Needs: Review discharge instructions and limitations, discussion of self care needs including ask me three. Services Needed at Discharge: Home Health Care Services ( RN, PT, OT, PROGRAMS MANAGER) SDOH Health Related Social Needs: Health related social needs transpo insecurity Health related social needs: transportation insecurity(Z59.82)
--- NOTE | 2024-02-25 10:12 | PDOC.HHF2F ---
Home Health Referral Home Health Orders Clinical synopsis of why skilled professionals are needed: meds/colostomy/DM Medical diagnosis necessitation home health referral: CHF/ANETTE/anemia/cirrhosis/encephalopathy/CKD/cardiomyopathy/DM2/a fib/bradycardia/arrthymia/hypotension/frequent falls/rectal cancer/colostmy Registered Nurse: Check all that apply Instruct on new or changed medication(s)/assess compliance: Ordered Instruct on ostomy care: Ordered (monitor for decreased or no output ) Assess for exacerbation of medical condition, instruct patient/caregivers on signs and symptoms to report for early detection: Ordered Assess wound for signs and symptoms of infection, instruct on wound care and/or provide skilled wound care consisting of: colostomy care Other: Patient has to take his laxatives daily Physical Therapist: Check all that apply Increase strength & endurance for safe mobility at home: Ordered To design/establish home maintenance program: Ordered Fall reduction therapy program for patient with history of frequent falls: Ordered Home safety evaluation and teaching/gait training including stair management (if applicable): Ordered Occupational Therapist: Evaluate and treat for patient unable to perform ADL/IADL/self-care: Ordered Hydrographic Engineer: Assist with community resources: Ordered Assist with watermelon harvesting supervisor care planning: Ordered Home Bound Status Requires the aid of supportive device (check all that apply): Walker Patient has a condition such that leaving home is medically contraindicated (Describe): can't walk/cardiac EF 25% Describe why leaving home would require a considerable and taxing effort: Side effects from pain medication (sedation/drowsiness), Requires frequent rest periods, Safety Concerns: describe and Requires alternative accommodations: Encounter Date and Reason: I certify that a FTF encounter for this patient was performed on February 25, 2024 and that such encounter was related to the primary reason the patient requires home health services. The encounter was conducted in the following manner: By me as the certifying physician, EMERGENCY VETERINARIAN, PA or By an inpatient physician, EMERGENCY VETERINARIAN or PA during an inpatient stay who communicated findings to me, Certification And Authentication I certify that I composed the above information based on my clinical judgment relating to this patient's medical condition and, if applicable, clinical findings communicated to me by the NPP or inpatient physician who performed the FTF encounter. Name of Provider that will be monitoring home health services: Kristina Nicole
== END 2024-02-24 15:26 | disposition home or self-care (01) | DRG 388 ==
LOC: ER 03:12 → MS 17:43
PROVIDERS: Internal Medicine; Admitting Provider Surgery; Emergency Provider Student in an Organized Health Care Education/Training Program; PCP Nurse Practitioner Adult Health; Visit Provider Surgery
DX: K56.600 Partial intestinal obstruction, unspecified as to cause (principal); A41.9 Sepsis, unspecified organism; E87.20 Acidosis, unspecified; I48.20 Chronic atrial fibrillation, unspecified; I13.0 Hypertensive heart and chronic kidney disease with heart failure and stage 1 through stage 4 chronic kidney disease, or unspecified chronic kidney disease; I50.32 Chronic diastolic (congestive) heart failure; N39.0 Urinary tract infection, site not specified; K76.6 Portal hypertension; Z16.19 Resistance to other specified beta lactam antibiotics; E11.22 Type 2 diabetes mellitus with diabetic chronic kidney disease; N18.2 Chronic kidney disease, stage 2 (mild); G47.33 Obstructive sleep apnea (adult) (pediatric); E03.9 Hypothyroidism, unspecified; I49.3 Ventricular premature depolarization; E87.6 Hypokalemia; Z85.038 Personal history of other malignant neoplasm of large intestine; G89.29 Other chronic pain; M54.50 Low back pain, unspecified; D69.59 Other secondary thrombocytopenia; D63.8 Anemia in other chronic diseases classified elsewhere; R53.1 Weakness; I25.2 Old myocardial infarction; R29.6 Repeated falls; I95.1 Orthostatic hypotension; R00.1 Bradycardia, unspecified; Z87.891 Personal history of nicotine dependence; Z93.3 Colostomy status; R41.0 Disorientation, unspecified; K70.30 Alcoholic cirrhosis of liver without ascites; B96.89 Other specified bacterial agents as the cause of diseases classified elsewhere
CPT/HCPCS: 00123; 36410; 36415; 80048; 80053; 83690; 84145; 85027; 87040; 87077; 96374; 97162; 99285; J1650; 71045; 74019; 74177; 81003; 81015; 82140; 82248; 83605; 83735; 84075; 84132; 84484; 85025; 87086; 87186; 93005; 93010; 93306; 94660; 99222; 99231; 99232; J0131; J0650; J0696; J0780; J1815; J1885; J1920; J2185; J2405; J3010; J3475; J3480; J3490; Q9967

== ENCOUNTER 2024-03-04 15:23 | Observation (INO) | payer OTHER, SELFPAY ==
[2024-03-04] VITALS (27 sets, daily range): BP systolic 111–197; BP diastolic 64–77; PULSE 60–76; RESP 12–21; TEMP 36.3–36.9; O2SAT 94–97
--- NOTE | 2024-03-04 15:30 | RT.EKG_ITS ---
APPROVED REPORT Exam: Resting ECG Reason for Exam: altered mental Patient Location: E HR:63 bpm ECG Measurements Heart Rate 63 AXIS [place] 258 P -80 QRSd 139 QRS -19 QT 470 T 112 QTc 483 Conclusion SINUS 63 FIRST DEG BLOCK NO STEMI
[2024-03-04 16:17] LABS: Abs Immature Grans 0.01 10^3/uL (0.0-0.06); Absolute Basophil Count 0.03 10^3/uL (0.0-0.2); Absolute Eosinophil Count 0.26 10^3/uL (0.0-0.7); Absolute Lymphocyte Count 0.57 10^3/uL (1.2-3.4); Absolute Neutrophil Count 2.41 10^3/uL (1.2-6.7); Basophils % 0.8 %; Eosinophils % 7.3 %; HCT 37.9 % (40.0-50.0); HGB 12.7 g/dL (13.5-17.5); Immature Grans % 0.3 %; Lymphocytes % 15.9 %; MCH 30.5 pg (27.0-33.0); MCHC 33.5 % (32.0-36.0); MCV 91 fL (80-95); MPV 11.7 fL (8.0-11.0); Monocytes % 8.4 %; Neutrophils % 67.3 %; RBC 4.17 10^6/uL (4.36-5.78); RDW 15.3 % (11.8-14.1); WBC 3.58 10^3/uL (4.4-10.8)
[2024-03-04 16:30] LABS: Ammonia 94 umol/L (11-32); Diff Comment PLT Morph Reviewed; Platelet Count 59 10^3/uL (130-400); RBC Morphology Normal
[2024-03-04 16:41] LABS: ALT 20 U/L (16-63); AST 40 U/L (15-37); Alkaline Phosphatase 128 U/L (46-116); Anion Gap 12.1 mmol/L (3-11); BUN 14 mg/dL (7-18); Bilirubin, Total 1.5 mg/dL (0.2-1.0); CO2 24.9 mmol/L (21.0-32.0); CREATININE 1.1 mg/dL (0.70-1.30); Chloride 106 mmol/L (98-107); ETHANOL BLOOD < 3.0 mg/dL (<10); Estimated GFR 69.14 (mL/min/1.73m2); Glucose 259 mg/dL (74-106); Magnesium 1.6 mg/dL (1.8-2.4); Potassium 3.8 mmol/L (3.5-5.1); Sodium 143 mmol/L (136-145); TSH (W/Ref FT4) 12.09 uIU/mL (0.36-3.74); Total Protein 6.8 g/dL (6.4-8.2); Troponin I < 50 ng/L (< or =60)
[2024-03-04 16:58] LABS: FREE T4 0.88 ng/dL (0.76-1.46)
--- NOTE | 2024-03-04 17:09 | ED.GENADUL_ITS ---
Discharge Plan Discharge Details Chief Complaint: Urinary Primary Care Provider: Maryann Whitt ED Provider: Yajaira Islas Home Meds and New Rx's Prescriptions: No Action prazosin 5 mg Capsule 10 mg PO QHS pantoprazole 40 mg Tablet,Delayed Release (Dr/Ec) 40 mg PO DAILY metformin 1,000 mg Tablet 1,000 mg PO BID pregabalin 50 mg Capsule 50 mg PO BID Eliquis 5 mg Tablet 5 mg PO BID Hold Instructions: until discussed with outpatient team as you have not been taking it. nitroglycerin 0.4 mg Tablet, Sublingual 0.4 mg sublingual Q5 MIN PRN X3 PRNQty: 30 0RF miconazole nitrate 2 % Powder 1 applic TOPICAL BID PRN acetaminophen [Tylenol] 325 mg Capsule 650 mg PO Q8H MDD 3000 PRNQty: 0 0RF Hold Instructions: Changed by Provider rifaximin 550 mg Tablet 550 mg PO BID docusate sodium [Colace] 100 mg Capsule 100 mg PO BID Qty: 60 0RF tamsulosin 0.4 mg Capsule 0.4 mg PO DAILY ferrous sulfate 325 mg (65 mg iron) Tablet 325 mg PO DAILY empagliflozin 25 mg Tablet 25 mg PO DAILY furosemide [Lasix] 20 mg tablet 20 mg PO QAM levothyroxine 200 mcg Tablet 100 mcg PO QAM Qty: 0 0RF spironolactone 25 mg Tablet 25 mg PO DAILY Qty: 30 0RF potassium chloride 20 mEq Packet 20 meq PO BID Qty: 60 0RF Jardiance 25 mg Tablet 25 mg PO QAM Qty: 30 0RF Entresto 24-26 mg Tablet 1 tab PO BID Qty: 60 0RF atorvastatin 40 mg tablet 40 mg PO QPM Qty: 30 0RF HPI General Date/Time Provider Initiated Documentation: 03/04/24 15:25 . Limitations to Documentation: altered mental status . Information obtained by: patient and family . HPI Narrative: 79-year-old gentleman with past medical history of coronary disease, CHF, cirrhosis, A-fib, diabetes, ostomy presents for evaluation of altered mental status. Patient reports that he contacted his primary care provider at the [facility] today who recommended that he come in for evaluation of his ammonia level. He reports that he has no memory of the last 2 days. He states that he is feeling a little bit better today. He reports that he has significant urinary urgency. Reports normal ostomy output. Reports no fevers or falls. Related Data Home Medications Medication Instructions Recorded Confirmed apixaban 5 mg tablet (Eliquis) 5 mg PO BID 11/08/22 03/04/24 metformin 1,000 mg tablet 1,000 mg PO BID 11/08/22 03/04/24 pantoprazole 40 mg tablet,delayed 40 mg PO DAILY 11/08/22 03/04/24 release prazosin 5 mg capsule 10 mg PO QHS 11/08/22 03/04/24 pregabalin 50 mg capsule 50 mg PO BID 11/08/22 03/04/24 tamsulosin 0.4 mg capsule 0.4 mg PO DAILY 11/29/22 03/04/24 nitroglycerin 0.4 mg sublingual 0.4 mg sublingual Q5 MIN PRN X3 02/10/23 03/04/24 tablet PRN #30 tabs ferrous sulfate 325 mg (65 mg 325 mg PO DAILY 03/08/23 03/04/24 iron) tablet empagliflozin 25 mg tablet 25 mg PO DAILY 04/09/23 03/04/24 furosemide 20 mg tablet (Lasix) 20 mg PO QAM 04/09/23 03/04/24 levothyroxine 200 mcg tablet 100 mcg (1/2 x 200 mcg) PO QAM #0 04/10/23 03/04/24 tabs miconazole nitrate 2 % topical 1 applic topical BID PRN 06/16/23 03/04/24 powder acetaminophen 325 mg capsule 650 mg (2 x 325 mg) PO Q8H PRN #0 06/17/23 03/04/24 (Tylenol) caps rifaximin 550 mg tablet 550 mg PO BID 07/07/23 03/04/24 docusate sodium 100 mg capsule 100 mg PO BID #60 caps 11/09/23 03/04/24 (Colace) atorvastatin 40 mg tablet 40 mg PO QPM #30 tabs 02/24/24 03/04/24 empagliflozin 25 mg tablet 25 mg PO QAM #30 tabs 02/24/24 03/04/24 (Jardiance) potassium chloride 20 mEq oral 20 meq PO BID #60 ea 02/24/24 03/04/24 packet sacubitril 24 mg-valsartan 26 mg 1 tab PO BID #60 tabs 02/24/24 03/04/24 tablet (Entresto) spironolactone 25 mg tablet 25 mg PO DAILY #30 tabs 02/24/24 03/04/24 Previous Rx's Medication Instructions Recorded nitroglycerin 0.4 mg sublingual 0.4 mg sublingual Q5 MIN PRN X3 02/10/23 tablet PRN #30 tabs levothyroxine 200 mcg tablet 100 mcg (1/2 x 200 mcg) PO QAM #0 04/10/23 tabs acetaminophen 325 mg capsule 650 mg (2 x 325 mg) PO Q8H PRN #0 06/17/23 (Tylenol) caps docusate sodium 100 mg capsule 100 mg PO BID #60 caps 11/09/23 (Colace) atorvastatin 40 mg tablet 40 mg PO QPM #30 tabs 02/24/24 empagliflozin 25 mg tablet 25 mg PO QAM #30 tabs 02/24/24 (Jardiance) potassium chloride 20 mEq oral 20 meq PO BID #60 ea 02/24/24 packet sacubitril 24 mg-valsartan 26 mg 1 tab PO BID #60 tabs 02/24/24 tablet (Entresto) spironolactone 25 mg tablet 25 mg PO DAILY #30 tabs 02/24/24 Allergies Allergy/AdvReac Type Severity Reaction Status Date / Time Penicillins Allergy Mild Itching Unverified 03/04/24 15:29 morphine AdvReac Severe vomiting Unverified 03/04/24 15:29 mussels AdvReac Severe vomiting Unverified 03/04/24 15:29 General Stated Complaint: Urinary ANNA: 3 Exam Narrative Exam Narrative: Review of Systems: All systems reviewed & are unremarkable except as noted in HPI and below Well-developed, no acute distress NCAT PERRL, normal conjunctiva RRR, cardiac device noted on chest wall Unlabored respiratory effort, clear bilaterally Nondistended abdomen , nontender, ostomy in place Extremities w/o deformity, no cyanosis, no edema No rashes or lesions. no focal neurologic deficits, Repetitive questioning, slow to answer questions, looks to son for answers Course Vital Signs Vital signs: Vital Signs Temperature 36.9 C 03/04/24 15:31 Pulse 68 03/04/24 15:31 Respiratory Rate 16 03/04/24 15:31 Blood Pressure 171/73 H 03/04/24 15:31 Pulse Oximetry 95 03/04/24 15:31 Temperature 36.9 C 03/04/24 15:31 Temperature Source Temporal Artery Scan 03/04/24 15:31 Pulse 68 03/04/24 15:31 Pulse 69 03/04/24 16:20 Respiratory Rate 19 03/04/24 16:20 Respiratory Effort Normal, Non-Labored 03/04/24 15:34 Blood Pressure 171/73 H 03/04/24 15:31 Blood Pressure Position Sitting 03/04/24 15:31 Pulse Oximetry 94 03/04/24 16:20 Oxygen Delivery Method Room Air 03/04/24 15:31 Oxygen Flow Rate 0 03/04/24 15:31 Pain Level 0 03/04/24 15:31 Lab/Test Results Lab/Test Results: Laboratory Tests Range/Units 03/04/24 16:05 WBC (4.4-10.8) 10^3/uL 3.58 L RBC (4.36-5.78) 10^6/uL 4.17 L Hgb (13.5-17.5) g/dL 12.7 L Hct (40.0-50.0) % 37.9 L MCV (80-95) fL 91 MCH (27.0-33.0) pg 30.5 MCHC (32.0-36.0) % 33.5 RDW (11.8-14.1) % 15.3 H Plt Count (130-400) 10^3/uL 59 L MPV (8.0-11.0) fL 11.7 H Immature Gran % % 0.3 Neutrophils % % 67.3 Lymphocytes % % 15.9 Monocytes % % 8.4 Eosinophils % % 7.3 Basophils % % 0.8 Nucleated RBC % (0.0-0.3) % 0.0 Absolute Neutrophils (1.2-6.7) 10^3/uL 2.41 Absolute Lymphocytes (1.2-3.4) 10^3/uL 0.57 L Absolute Monocytes (0.1-0.8) 10^3/uL 0.30 Absolute Eosinophils (0.0-0.7) 10^3/uL 0.26 Absolute Basophils (0.0-0.2) 10^3/uL 0.03 RBC Morphology Normal Sodium (136-145) mmol/L 143 Potassium (3.5-5.1) mmol/L 3.8 Chloride (98-107) mmol/L 106 Carbon Dioxide (21.0-32.0) mmol/L 24.9 Anion Gap (3-11) mmol/L 12.1 H BUN (7-18) mg/dL 14 Creatinine (0.70-1.30) mg/dL 1.1 Est GFR (CKD-EPI 2020) (mL/min/1.73m2) 69.14 Glucose (74-106) mg/dL 259 H Calcium (8.5-10.1) mg/dL 9.0 Magnesium (1.8-2.4) mg/dL 1.6 L Total Bilirubin (0.2-1.0) mg/dL 1.5 H AST (15-37) U/L 40 H ALT (16-63) U/L 20 Alkaline Phosphatase (46-116) U/L 128 H Ammonia (11-32) umol/L 94 H Troponin I (< or =60) ng/L < 50 Total Protein (6.4-8.2) g/dL 6.8 Albumin (3.4-5.0) g/dL 3.0 L TSH (0.36-3.74) uIU/mL 12.09 H Free T4 (0.76-1.46) ng/dL 0.88 Ethyl Alcohol (<10) mg/dL < 3.0 Medical Decision Making Emergent evaluation of altered mental status. Initial differential includes hepatic encephalopathy, sepsis, UTI, electrolyte derangement. Patient says that his PCP told him to get his ammonia checked. He is not taking the lactulose currently, does take rifaximin. He denies any falls or trauma. Reports that his symptoms have been improving, but that he is not totally back to baseline. Lab work obtained. Mild leukopenia noted, no significant anemia. Platelet count low, slightly lower than baseline. His LFTs are around baseline. His ammonia is more elevated at 94. I suspect that this is the cause of his recent mental status changes. I have given first dose of lactulose. Although the patient's symptoms are improving, he is not at baseline and I am unable to ensure close follow-up, recheck of an ammonia level for reassessment of the p atient's mental status. Because of this I feel he should be admitted and observed until his symptoms resolved. Medical Records Medical records reviewed: Yes I reviewed the patient's medical records. Lab Data Lab results reviewed: Yes I reviewed the patient's lab results. Quality:SDOH Health Related Social Needs: Health related social needs transpo insecurity PFSH All Active Problems Anemia of chronic disease (Acute) Thrombocytopenia (Chronic) Ventricular ectopy (Acute) Sinus bradycardia (Acute) Leukocytosis (Acute) Hypertension (Chronic) Elevated lactic acid level (Acute) CHF (congestive heart failure) (Chronic) No-show for appointment (Acute) Left rotator cuff tear (Acute) Acute UTI (urinary tract infection) (Acute) Weakness (Acute) Non-ST elevation NE (NSTEMI) (Acute) Pre-syncope (Acute) Frequent falls (Acute) Orthostatic hypotension (Acute) Chronic atrial fibrillation (Chronic) Type 2 diabetes mellitus (Chronic) Hypokalemia (Acute) Bradycardia (Acute) Multiple falls (Acute) Acute metabolic encephalopathy (Acute) Medication monitoring encounter (Acute) ANETTE (obstructive sleep apnea) (Chronic) Chest pain (Acute) CHF exacerbation (Acute) CHF (congestive heart failure) (Chronic) EF 25%- 2023 Medical History Hypothyroidism Small bowel obstruction Lactic acid acidosis Creatinine elevation Acute UTI Anticoagulated COVID Chronic low back pain Recurrent intestinal obstruction History of colon cancer Palliative care encounter [facility]ed by [facility] Chronic anticoagulation Portal hypertension Cirrhosis TIPs placed (?when, [facility] 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, Dx [facility] as per pt Non-insulin dependent type 2 diabetes mellitus Incontinence Hypertension Scleral icterus Surgical History S/P TIPS (transjugular intrahepatic portosystemic shunt) H/O left hemicolectomy Colostomy in place Social History Smoking/Tobacco Use Status: Former Tobacco Use Smoking risk assessment performed?: Yes Alcohol Intake: former Drug use: Never Substance use type: does not use Housing: house Do you feel safe at home: Yes Do you feel safe in your relationship?: Yes Additional Social history: Lives with , son, and sick [id number] in [place], moved up from [place] in 2020. [place] .
[2024-03-04] MEDS: Lactulose 20 GM/30 ML CUP PO (17:21)
[2024-03-04 17:24] LABS: Bilirubin Negative (Negative); Blood Trace-intact (Negative); Clarity Clear (Clear); Glucose 500 mg/dL (Negative); Ketones Negative (Negative); Leukocyte Esterase Negative (Negative); Nitrite Negative (Negative); Specific Gravity 1.015 (1.005-1.025)
[2024-03-04 17:31] LABS: Bacteria Negative HPF (Negative); C & S Indicated? No; Crystals Negative HPF (Negative); Epithelial Cells Rare HPF (Negative); Mucus Negative (Negative); WBC Negative HPF (0-5)
--- NOTE | 2024-03-04 18:59 | HPE_ITS ---
Date of service: 03/04/24 Time of Service: 18:59 Assessment and Plan Assessment and plan (1) Encephalopathy, hepatic: Status: Acute Assessment and plan: I agree with ED impression of hepatic encephalopathy as most likely cause of recent mental status change. This would fit with his fluctating mental status, which apparently has improved this afternoon compared to yesterday. 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 He did recently stop carvedilol, which would put him at higher risk for UGI bleed which can worsen encephalopathy. but no known bleeding. He is on rifaxamin, but not lactulose chronically. Will give additional lactulose until we get stool output. Follow mental status and ammonia (2) Cirrhosis: Assessment and plan: Likely MASH given diabetes, obesity, and minimal alcohol history. Child Rich Schneider score 8, c/w decompensated cirrhosis, but his current labs are stable from recent numbers. Continue outpatient medical management with addition of lactulose as above. Qualifiers: Hepatic cirrhosis type: alcoholic cirrhosis Ascites presence: without ascites Qualified Code(s): K70.30 - Alcoholic cirrhosis of liver without ascites (3) Chronic atrial fibrillation: Status: Chronic Assessment and plan: Sinus today, continue apixaban. (4) Type 2 diabetes mellitus: Status: Chronic Assessment and plan: Continue outpatient medication, including metformin which it now considered safe and likely associated with improved buttermaker continuous churn outcomes in cirrhosis. Monitor blood glucose, low dose sliding scale. Qualifiers: Diabetes mellitus buttermaker continuous churn insulin use: without buttermaker continuous churn use Diabetes mellitus complication status: with kidney complications Diabetes mellitus complication detail: with chronic kidney disease Chronic kidney disease stage: stage 2 (mild) Qualified Code(s): E11.22 - Type 2 diabetes mellitus with diabetic chronic kidney disease; N18.2 - Chronic kidney disease, stage 2 (mild) (5) ANETTE (obstructive sleep apnea): Status: Chronic Assessment and plan: home BiPAP/CPAP if he has this (6) Ventricular ectopy: Status: Acute Assessment and plan: He has zio, will keep on tele here as his QTc is long and magnesium low. Mg replacement ordered. I agree AICD should be considered. (7) Hypertension: Assessment and plan: BP running high. Recently stopped carvedilol. Monitor (8) Hypothyroidism: Assessment and plan: TSH high. He is on iron which may be blocking levothyroxine. Change this to qPM. No change in levothyroxine dose for now. Qualifiers: Hypothyroidism type: acquired Qualified Code(s): E03.9 - Hypothyroidism, unspecified (9) Heart failure with reduced ejection fraction: Assessment and plan: Not fluid overloaded currently. On appropriate GDMT except carvedilol recently had to be stopped due to bradycardia. (10) Lower urinary obstructive symptom: Status: Acute Assessment and plan: He confirmed that tamsulosin was for this and doxazosin for PTSD nightmares. [facility] has published guidelines that allow for this combinaiton. We discussed concern for orthostasis and syncope, but will defer to PCP. History of Present Illness History of Present Illness Chief Complaint: confusion Narrative: 79 yo M with history of decompensated cirrhosis, CAD with history of CHF, type 2 DM, ANETTE, atrial fibrilation on apixaban who is presenting with increased confusion over the past 2 days. Patient states he has little memory over the past 2 days, children describe him being irritable and confused, having difficulty pronouncing words. He called his PCP at the [facility] and they suggested medical evaluation. He actually feels a little better now, but still can't remember like normal. He denies any fevers or chills or new pain including abdominal or chest pain or headeache. He hasn't had a cough or cold. No dysuria or change in urine output. Denies change in medicaitons. He did have his dentures fit yesterday and had not been eating as well recently. He also confirms he doesn't take lactulose because he doesn't like taking the fluid. He was admitted 02/20-02/23 for SBO, which was managed conservatively. During that time ventricular ectopy and bradycardia noted. His carvedilol 3.125mg BID was stopped and outpatient veterinary nurse recommended. He is wearing a zio patch now. Review of Systems All systems reviewed & are unremarkable except as noted in HPI and below ENT Ears, Nose, Mouth, and Throat: Reports dizziness (he does get dizzy with standing, but this is chronic) Neurologic Neurologic: Denies abnormal speech, Reports behavioral changes, Reports confusion, Reports dizziness (he does get dizzy with standing, but this is chronic), Reports localized weakness, Reports memory loss, Denies convulsions and Denies sensory deficit Psychiatric Psychiatric: Reports behavioral changes, Reports confusion, Denies depression, Reports memory loss, Denies visual hallucinations and Denies hallucinations PFSH All Active Problems (Updated 03/04/24 @ 21:39 by Elia Arizmendi) Lower urinary obstructive symptom (Acute) Encephalopathy, hepatic (Acute) Anemia of chronic disease (Acute) Thrombocytopenia (Chronic) Ventricular ectopy (Acute) Sinus bradycardia (Acute) Leukocytosis (Acute) Hypertension (Chronic) Elevated lactic acid level (Acute) CHF (congestive heart failure) (Chronic) No-show for appointment (Acute) Left rotator cuff tear (Acute) Acute UTI (urinary tract infection) (Acute) Weakness (Acute) Non-ST elevation MD (NSTEMI) (Acute) Pre-syncope (Acute) Frequent falls (Acute) Orthostatic hypotension (Acute) Chronic atrial fibrillation (Chronic) Type 2 diabetes mellitus (Chronic) Hypokalemia (Acute) Bradycardia (Acute) Multiple falls (Acute) Acute metabolic encephalopathy (Acute) Medication monitoring encounter (Acute) ANETTE (obstructive sleep apnea) (Chronic) Chest pain (Acute) CHF exacerbation (Acute) CHF (congestive heart failure) (Chronic) EF 25%- 2023 Medical History (Updated 03/04/24 @ 21:39 by Elia Arizmendi) Heart failure with reduced ejection fraction Hypothyroidism Small bowel obstruction Lactic acid acidosis Creatinine elevation Acute UTI Anticoagulated COVID Chronic low back pain Recurrent intestinal obstruction History of colon cancer Palliative care encounter [facility]ed by [facility] Chronic anticoagulation Portal hypertension Cirrhosis TIPs placed (?when, [facility]? 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, Dx [facility] as per pt Non-insulin dependent type 2 diabetes mellitus Incontinence Hypertension Scleral icterus Surgical History S/P TIPS (transjugular intrahepatic portosystemic shunt) H/O left hemicolectomy Colostomy in place Social History Smoking/Tobacco Use Status: Former Tobacco Use Smoking risk assessment performed?: Yes Alcohol Intake: former Drug use: Never Substance use type: does not use Housing: house Do you feel safe at home: Yes Do you feel safe in your relationship?: Yes Additional Social history: Lives with , son, and sick [id number] in [place], moved up from [place] in 2019. [place] . Meds Allergies and Home Medications Allergies Allergy/AdvReac Type Severity Reaction Status Date / Time Penicillins Allergy Mild Itching Unverified 03/04/24 15:29 morphine AdvReac Severe vomiting Unverified 03/04/24 15:29 mussels AdvReac Severe vomiting Unverified 03/04/24 15:29 Home Medications Medication Instructions Recorded Confirmed Type apixaban 5 mg tablet (Eliquis) 5 mg PO BID 11/08/22 03/04/24 History metformin 1,000 mg tablet 1,000 mg PO BID 11/08/22 03/04/24 History pantoprazole 40 mg tablet,delayed 40 mg PO DAILY 11/08/22 03/04/24 History release prazosin 5 mg capsule 10 mg PO QHS 11/08/22 03/04/24 History pregabalin 50 mg capsule 50 mg PO BID 11/08/22 03/04/24 History tamsulosin 0.4 mg capsule 0.4 mg PO DAILY 11/29/22 03/04/24 History nitroglycerin 0.4 mg sublingual 0.4 mg sublingual Q5 MIN PRN X3 02/10/23 03/04/24 Rx tablet PRN #30 tabs ferrous sulfate 325 mg (65 mg 325 mg PO DAILY 03/08/23 03/04/24 History iron) tablet empagliflozin 25 mg tablet 25 mg PO DAILY 04/09/23 03/04/24 History furosemide 20 mg tablet (Lasix) 20 mg PO QAM 04/09/23 03/04/24 History levothyroxine 200 mcg tablet 100 mcg (1/2 x 200 mcg) PO QAM #0 04/10/23 03/04/24 Rx tabs miconazole nitrate 2 % topical 1 applic topical BID PRN 06/16/23 03/04/24 History powder acetaminophen 325 mg capsule 650 mg (2 x 325 mg) PO Q8H PRN #0 06/17/23 03/04/24 Rx (Tylenol) caps rifaximin 550 mg tablet 550 mg PO BID 07/07/23 03/04/24 History docusate sodium 100 mg capsule 100 mg PO BID #60 caps 11/09/23 03/04/24 Rx (Colace) atorvastatin 40 mg tablet 40 mg PO QPM #30 tabs 24 03/04/24 Rx empagliflozin 25 mg tablet 25 mg PO QAM #30 tabs 02/24/24 03/04/24 Rx (Jardiance) potassium chloride 20 mEq oral 20 meq PO BID #60 ea 02/24/24 03/04/24 Rx packet sacubitril 24 mg-valsartan 26 mg 1 tab PO BID #60 tabs 02/24/24 03/04/24 Rx tablet (Entresto) spironolactone 25 mg tablet 25 mg PO DAILY #30 tabs 02/24/24 03/04/24 Rx Exam Narrative Exam Narrative: GEN: Alert and oriented to self, hospital. pleasent and cooperative, gives vague and incomplete history. No acute distress at rest. HEENT: Head atraumatic. Conjunctiva clear, no icterus. PEERL, EOMI. no rhinorrhea. MMM, OP benign. Neck is supple with no masses or lymphadenopathy, trachea midline LUNGS: CTAB with normal effort CV: RRR with no murmurs, gallops, or rubs. zio patch on the chest ABD: +BS, soft, not tender. Mild distention with slight fluid wave. Scarring in mid abdomen with colostomy in place, nothing in bag, stoma looks healthy. EXT: no cyanosis, clubbing. 1+ elizabeth edema to shins MSK: No joint redness or swelling NEURO: CN 2-12 grossly intact. Normal movement of 4 extremities. Normal speech and coordination. +asterixis hands SKIN: No rashes or open wounds. PSYCH: normal mood and affect Results Imaging Additional studies: ECHO on 02/23/24: Technically difficult study Left ventricle is mildly dilated. Normal wall thickness. Ejection fraction biplane is 25%. Visually appears 30%. Septal motion suggests an IVCD Normal right ventricular size and function Left atrium is moderately dilated. Normal right atrial size Aortic valve sclerosis without stenosis or regurgitation Right ventricular systolic pressure could not be estimated EKG: report reviewed (NSR 62, no ischemic changes) Labs 03/04/24 16:05 03/04/24 16:05 Labs: Laboratory Results - last 24 hr 03/04/24 03/04/24 16:05 17:19 WBC 3.58 L RBC 4.17 L Hgb 12.7 L Hct 37.9 L MCV 91 MCH 30.5 MCHC 33.5 RDW 15.3 H Plt Count 59 L MPV 11.7 H Immature Gran % 0.3 Neutrophils % 67.3 Lymphocytes % 15.9 Monocytes % 8.4 Eosinophils % 7.3 Basophils % 0.8 Nucleated RBC % 0.0 Absolute Neutrophils 2.41 Absolute Lymphocytes 0.57 L Absolute Monocytes 0.30 Absolute Eosinophils 0.26 Absolute Basophils 0.03 RBC Morphology Normal Sodium 143 Potassium 3.8 Chloride 106 Carbon Dioxide 24.9 Anion Gap 12.1 H BUN 14 Creatinine 1.1 Est GFR (CKD-EPI 2020) 69.14 Glucose 259 H Calcium 9.0 Magnesium 1.6 L Total Bilirubin 1.5 H AST 40 H ALT 20 Alkaline Phosphatase 128 H Ammonia 94 H Troponin I < 50 Total Protein 6.8 Albumin 3.0 L TSH 12.09 H Free T4 0.88 Urine Color Yellow Urine Clarity Clear Urine pH 6.0 Ur Specific [place] 1.015 Urine Protein 100 H Urine Ketones Negative Urine Blood Trace-intact H Urine Nitrite Negative Urine Bilirubin Negative Urine Urobilinogen 1.0 H Ur Leukocyte Esterase Negative Urine RBC 3-5 H Urine WBC Negative Ur Epithelial Cells Rare Urine Crystals Negative Urine Bacteria Negative Urine Mucus Negative Urine Other Many Yeast Ur Culture Indicated? No Urine Glucose 500 H Ethyl Alcohol < 3.0 Last Vital Signs Temp 36.9 C 03/04/24 15:31 Pulse 68 03/04/24 15:31 Resp 19 03/04/24 16:20 BP 171/73 H 03/04/24 15:31 Pulse Ox 94 03/04/24 16:20 Time Spent Time spent with Patient: >75 minutes Time was spent: preparing to see the patient(eg.review tests), obtaining and/or reviewing separately otained hiistory, ordering medications,tests, procedures, referring, communicating with other health health and social care teacher, indepentently interpreting results, counseling the patient and care coordination
[2024-03-04 21:43] LABS: BE (Venous) 2 mmol/L (-2-3); HCO3 (Venous) 26 mmol/L (23-28); O2 Sat (Venous) 75 %; TCO2 (Venous) 24 mmol/L (24-29); pCO2 (Venous) 41 mmHg (41-51); pH (Venous) 7.42 (7.31-7.41); pO2 (Venous) 43 mmHg
[2024-03-04] MEDS: MAGNESIUM SULFATE 2 GM/50 ML BAG IVINF (22:25)
[2024-03-04] MEDS: Lactulose 20 GM/30 ML CUP 30 GM PO (22:27)
[2024-03-04] MEDS: Potassium Chloride Liquid 20 MEQ PKT PO (22:28)
[2024-03-04] MEDS: Pregabalin 50 MG CAP PO (22:32)
[2024-03-04] MEDS: Docusate Sodium 100 MG CAP PO (22:32)
[2024-03-04] MEDS: Atorvastatin 40 MG TAB PO (22:32)
[2024-03-04] MEDS: Ferrous Sulfate 325 MG TAB PO (22:32)
[2024-03-04] MEDS: Apixaban 5 MG TAB PO (22:32)
[2024-03-04] MEDS: Sacubitril/Valsartan 24 mg/26 mg TAB 1 EACH PO (22:32)
[2024-03-04] MEDS: Rifaximin 550 MG TAB PO (22:32)
[2024-03-04] MEDS: Normal Saline Flush 10 ML SYR IVP (22:33)
[2024-03-05 00:43] VITALS: BP 117/68; PULSE 68; RESP 17; TEMP 37.2; O2SAT 96
[2024-03-05] MEDS: Melatonin 3 MG TAB 6 MG PO ×2 (01:50→21:16)
[2024-03-05] MEDS: Levothyroxine 200 MCG TAB 100 MCG PO (05:50)
[2024-03-05 07:27] LABS: Ammonia 84 umol/L (11-32)
[2024-03-05 07:46] LABS: ALT 24 U/L (16-63); AST 54 U/L (15-37); Albumin 2.7 g/dL (3.4-5.0); Alkaline Phosphatase 124 U/L (46-116); Anion Gap 10.5 mmol/L (3-11); BUN 8 mg/dL (7-18); Bilirubin, Total 1.8 mg/dL (0.2-1.0); CO2 24.5 mmol/L (21.0-32.0); CREATININE 0.9 mg/dL (0.70-1.30); Calcium 8.5 mg/dL (8.5-10.1); Chloride 109 mmol/L (98-107); Estimated GFR 87.96 (mL/min/1.73m2); Glucose 208 mg/dL (74-106); Magnesium 1.9 mg/dL (1.8-2.4); Potassium 3.6 mmol/L (3.5-5.1); Sodium 144 mmol/L (136-145); Total Protein 6.2 g/dL (6.4-8.2)
[2024-03-05 07:56] VITALS: BP 162/80; PULSE 66; RESP 17; TEMP 36.6; O2SAT 94
[2024-03-05] MEDS: Tamsulosin 0.4 MG CAPCR PO (08:59)
[2024-03-05] MEDS: Sacubitril/Valsartan 24 mg/26 mg TAB 1 EACH PO (08:59)
[2024-03-05] MEDS: Docusate Sodium 100 MG CAP PO ×2 (09:00→21:15)
[2024-03-05] MEDS: metFORMIN 500 MG TAB 1000 MG PO ×2 (09:00→18:26)
[2024-03-05] MEDS: Apixaban 5 MG TAB PO ×2 (09:00→21:17)
[2024-03-05] MEDS: Furosemide 20 MG TAB PO (09:00)
[2024-03-05] MEDS: Spironolactone 25 MG TAB PO (09:00)
[2024-03-05] MEDS: Rifaximin 550 MG TAB PO ×2 (09:00→21:16)
[2024-03-05] MEDS: Pantoprazole 40 MG TABCR PO (09:00)
[2024-03-05] MEDS: Empaglifozin 25 MG TAB PO (09:01)
[2024-03-05] MEDS: Lactulose 20 GM/30 ML CUP 30 GM PO ×2 (09:01→13:30)
[2024-03-05] MEDS: Pregabalin 50 MG CAP PO ×2 (09:01→21:17)
[2024-03-05] MEDS: Insulin Aspart 300 UNITS/3 ML PEN SC (09:02)
[2024-03-05] MEDS: Potassium Chloride Liquid 20 MEQ PKT PO ×2 (09:03→21:17)
[2024-03-05 11:11] VITALS: BP 175/77; PULSE 69; RESP 16; TEMP 36.5; O2SAT 95
--- NOTE | 2024-03-05 12:35 | PDOC.CMIN ---
Care Management Initial Assmt Initial Assessment REASON FOR HOSPITALIZATION:: hepatic encephalopathy PREVIOUS FUNCTIONAL STATUS/SOCIAL/FAMILY SUPPORTS:: Merrill lives in a single family home in [place] with his Cely and his son Scott who is disabled. 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 He is an [employer] and is 100% service connected with the [employer]. Merrill occasionally uses a walker for ambulatory assistance and is independent with his ADLs. He also owns a scooter which he uses outside, weather permitting. Merrill receives home health services for RN and PT through the [facility] CURRENT FUNCTIONAL STATUS:: Merrill was sitting up in bed when CM met with him. He was open and friendly and engaged readily with CM, well known to him from previous hospitalizations. Merrill stated that he is feeling much, much better. He informed CM that he has been doing great at home, better than he has in a long time. CM noted that his color is good, he is well groomed and mentally seems to be alert and oriented and cognitively intact, displaying no forgetfulness or confusion. He will likely be discharged home tomorrow. ADVANCE DIRECTIVES:: states he has ADs but not on file at [facility] Has patient been provided with info about the portal/API?: Yes Did the patient sign up for the portal?: No CODE STATUS:: Full Code INSURANCE COVERAGE / FINANCIAL ISSUES:: [facility] CURRENT HOME/COMMUNITY SERVICES/EQUIPMENT:: walker and scooter Home health nurse ([facility]) monthly HH PT once a week PRIMARY CARE PHYSICIAN:: Maryann Whitt - [facility] POTENTIAL DISCHARGE NEEDS:: follow up with PCP and plan of care PATIENT/FAMILY EDUCATION NEEDS:: Review of discharge instructions, activity, limitations, follow up plan, discuss [employer] Me [employer] TRANSPORTATION:: via private vehicle with family PLAN:: Anticipate Merrill will be discharged home when medically cleared with a resumption of home health PT and nursing. He will follow up with his providers at the [facility] and will transport with family. PFSH All Active Problems (Updated 03/04/24 @ 21:39 by Elia Arizmendi) Lower urinary obstructive symptom (Acute) Encephalopathy, hepatic (Acute) Anemia of chronic disease (Acute) Thrombocytopenia (Chronic) Ventricular ectopy (Acute) Sinus bradycardia (Acute) Leukocytosis (Acute) Hypertension (Chronic) Elevated lactic acid level (Acute) CHF (congestive heart failure) (Chronic) No-show for appointment (Acute) Left rotator cuff tear (Acute) Acute UTI (urinary tract infection) (Acute) Weakness (Acute) Non-ST elevation [place] (NSTEMI) (Acute) Pre-syncope (Acute) Frequent falls (Acute) Orthostatic hypotension (Acute) Chronic atrial fibrillation (Chronic) Type 2 diabetes mellitus (Chronic) Hypokalemia (Acute) Bradycardia (Acute) Multiple falls (Acute) Acute metabolic encephalopathy (Acute) Medication monitoring encounter (Acute) ANETTE (obstructive sleep apnea) (Chronic) Chest pain (Acute) CHF exacerbation (Acute) CHF (congestive heart failure) (Chronic) EF 25%- 2023 Medical History (Updated 03/04/24 @ 21:39 by Elia Arizmendi) Heart failure with reduced ejection fraction Hypothyroidism Small bowel obstruction Lactic acid acidosis Creatinine elevation Acute UTI Anticoagulated COVID Chronic low back pain Recurrent intestinal obstruction History of colon cancer Palliative care encounter Followed by [facility] Chronic anticoagulation Portal hypertension Cirrhosis TIPs placed (?when, [facility]? 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, [facility] as per pt Non-insulin dependent type 2 diabetes mellitus Incontinence Hypertension Scleral icterus Surgical History S/P TIPS (transjugular intrahepatic portosystemic shunt) H/O left hemicolectomy Colostomy in place Social History Smoking/Tobacco Use Status: Former Tobacco Use Smoking risk assessment performed?: Yes Alcohol Intake: former Drug use: Never Substance use type: does not use Housing: house Do you feel safe at home: Yes Do you feel safe in your relationship?: Yes Additional Social history: Lives with , son, and sick [id number] in [place], moved up from [place] in 2019. [place] . SDOH(Care Management) Screening Will the Patient Participate in the Screening?: Yes Do you worry about having a steady place to live?: no Problems where you live: no known problems In the past 12 months, have you had to go without electric, gas, oil or water in your home?: no Have you or anyone in your house had to go without enough food to eat?: no Has lack of transportation kept you from medical appointments or from doing things needed for daily living?: no Has anyone in your support network made you feel unsafe for any reason?: no
--- NOTE | 2024-03-05 13:17 | W.PM.PROGNOT ---
Date of Service Date of service: 03/05/24 Time of Service: 13:17 Assessment and Plan Assessment and plan (1) Encephalopathy, hepatic: Status: Acute Assessment and plan: He is on rifaxamin, but not lactulose chronically. Started on admission 03/04 He is improving clinically with lactulose with some decrease in his ammonia. Follow mental status, home when close to baseline Case d/w Cely and PCP Maryann Whitt from [facility] (2) Cirrhosis: Assessment and plan: Likely MASH given diabetes, obesity, and minimal alcohol history. Child Rich Schneider score 8, c/w decompensated cirrhosis, but his current labs are stable from recent numbers. Continue outpatient medical management with addition of lactulose as above. Qualifiers: Hepatic cirrhosis type: alcoholic cirrhosis Ascites presence: without ascites Qualified Code(s): K70.30 - Alcoholic cirrhosis of liver without ascites (3) Chronic atrial fibrillation: Status: Chronic Assessment and plan: Sinus today, continue apixaban. (4) Type 2 diabetes mellitus: Status: Chronic Assessment and plan: Continue outpatient medication, including metformin which it now considered safe and likely associated with improved certified respiratory therapist outcomes in cirrhosis. Monitor blood glucose, low dose sliding scale. Qualifiers: Diabetes mellitus certified respiratory therapist insulin use: without senior care use Diabetes mellitus complication status: with kidney complications Diabetes mellitus complication detail: with chronic kidney disease Chronic kidney disease stage: stage 2 (mild) Qualified Code(s): E11.22 - Type 2 diabetes mellitus with diabetic chronic kidney disease; N18.2 - Chronic kidney disease, stage 2 (mild) (5) ANETTE (obstructive sleep apnea): Status: Chronic Assessment and plan: home BiPAP/CPAP if he has this (6) Ventricular ectopy: Status: Acute Assessment and plan: Mg replacement given, only PVCs on tele, can stop this. I agree AICD should be considered. Follow as outpatient with zio results (7) Hypertension: Assessment and plan: BP running high much of the day but labile. Recently stopped carvedilol, pulse still low to restart. He may benefit from BID dosing of losartan (on this at home and not entresto). (8) Hypothyroidism: Assessment and plan: TSH high. He is on iron which may be blocking levothyroxine, though per outpatient records taking iron in PM which is good. No change in levothyroxine dose for now. F/u with PCP to consider raising dose. Qualifiers: Hypothyroidism type: acquired Qualified Code(s): E03.9 - Hypothyroidism, unspecified (9) Heart failure with reduced ejection fraction: Assessment and plan: Not fluid overloaded currently. On appropriate GDMT except carvedilol recently had to be stopped due to bradycardia. Per updated med list he is not on ARNI, likely cost related. Change to his outpatient ARB. (10) Lower urinary obstructive symptom: Status: Acute Assessment and plan: He confirmed that tamsulosin was for this and doxazosin for PTSD nightmares. [facility] has published guidelines that allow for this combinaiton. We discussed concern for orthostasis and syncope, but will defer to PCP. Subjective Subjective Patient reports: voiding w/o difficulty; denies blood in stool, nausea, vomiting, shortness of breath or fever Interval history since last seen: Feeling better today. More clear, feels like memory improved. denies pain now. Stoma putting out more now. I talked to Cely, who talked to him, felt he is still slow mentally compared to baseline, but improved. Exam Narrative Exam Narrative: GEN: Alert and oriented to self, hospital. pleasent and cooperative, memory improved, more clear in thought process. No acute distress at rest. HEENT: Head atraumatic. Conjunctiva clear, no icterus. PEERL, EOMI. MMM LUNGS: CTAB with normal effort CV: RRR with no murmurs, gallops, or rubs. ABD: +BS, soft, not tender. Mild distention with slight fluid wave. Scarring in mid abdomen with colostomy in place. EXT: no cyanosis, clubbing. 1+ elizabeth edema to shins NEURO: CN 2-12 grossly intact. Normal movement of 4 extremities. Normal speech and coordination. minimal asterixis hands SKIN: No rashes or open wounds. PSYCH: normal mood and affect Objective Last Vital Signs Temp 36.5 C 03/05/24 11:11 Pulse 69 03/05/24 11:11 Resp 16 03/05/24 11:11 BP 175/77 H 03/05/24 11:11 Pulse Ox 95 03/05/24 11:11 Laboratory Results - last 24 hr 03/04/24 03/04/24 03/04/24 16:05 17:19 21:37 WBC 3.58 L RBC 4.17 L Hgb 12.7 L Hct 37.9 L MCV 91 MCH 30.5 MCHC 33.5 RDW 15.3 H Plt Count 59 L MPV 11.7 H Immature Gran % 0.3 Neutrophils % 67.3 Lymphocytes % 15.9 Monocytes % 8.4 Eosinophils % 7.3 Basophils % 0.8 Nucleated RBC % 0.0 Absolute Neutrophils 2.41 Absolute Lymphocytes 0.57 L Absolute Monocytes 0.30 Absolute Eosinophils 0.26 Absolute Basophils 0.03 RBC Morphology Normal VBG pH 7.42 H VBG pCO2 41 VBG pO2 43 VBG HCO3 26 VBG Total CO2 24 VBG O2 Saturation 75 VBG Base Excess 2 Sodium 143 Potassium 3.8 Chloride 106 Carbon Dioxide 24.9 Anion Gap 12.1 H BUN 14 Creatinine 1.1 Est GFR (CKD-EPI 2020) 69.14 Glucose 259 H Calcium 9.0 Magnesium 1.6 L Total Bilirubin 1.5 H AST 40 H ALT 20 Alkaline Phosphatase 128 H Ammonia 94 H Troponin I < 50 Total Protein 6.8 Albumin 3.0 L TSH 12.09 H Free T4 0.88 Urine Color Yellow Urine Clarity Clear Urine pH 6.0 Ur Specific [place] 1.015 Urine Protein 100 H Urine Ketones Negative Urine Blood Trace-intact H Urine Nitrite Negative Urine Bilirubin Negative Urine Urobilinogen 1.0 H Ur Leukocyte Esterase Negative Urine RBC 3-5 H Urine WBC Negative Ur Epithelial Cells Rare Urine Crystals Negative Urine Bacteria Negative Urine Mucus Negative Urine Other Many Yeast Ur Culture Indicated? No Urine Glucose 500 H Ethyl Alcohol < 3.0 03/05/24 03/05/24 07:10 07:10 WBC RBC Hgb Hct MCV MCH MCHC RDW Plt Count MPV Immature Gran % Neutrophils % Lymphocytes % Monocytes % Eosinophils % Basophils % Nucleated RBC % Absolute Neutrophils Absolute Lymphocytes Absolute Monocytes Absolute Eosinophils Absolute Basophils RBC Morphology VBG pH VBG pCO2 VBG pO2 VBG HCO3 VBG Total CO2 VBG O2 Saturation VBG Base Excess Sodium 144 Potassium 3.6 Chloride 109 H Carbon Dioxide 24.5 Anion Gap 10.5 BUN 8 Creatinine 0.9 Est GFR (CKD-EPI 2020) 87.96 Glucose 208 H Calcium 8.5 Magnesium 1.9 Cancelled Total Bilirubin 1.8 H AST 54 H ALT 24 Alkaline Phosphatase 124 H Ammonia 84 H Troponin I Total Protein 6.2 L Albumin 2.7 L TSH Free T4 Urine Color Urine Clarity Urine pH Ur Specific [place] Urine Protein Urine Ketones Urine Blood Urine Nitrite Urine Bilirubin Urine Urobilinogen Ur Leukocyte Esterase Urine RBC Urine WBC Ur Epithelial Cells Urine Crystals Urine Bacteria Urine Mucus Urine Other Ur Culture Indicated? Urine Glucose Ethyl Alcohol Time Spent with Patient Time Spent with Patient: 35-49 minutes Time was spent: preparing to see the patient(eg.review tests), obtaining and/or reviewing separately otained hiistory, ordering medications,tests, procedures, referring, communicating with other health patient care assistant, indepentently interpreting results, counseling the patient and care coordination
[2024-03-05 15:50] VITALS: BP 157/78; PULSE 68; RESP 20; TEMP 36.4; O2SAT 95
--- NOTE | 2024-03-05 16:00 | SP_ITS ---
Date of service: 03/05/24 Time of Service: 15:20 Subjective Clinical (Bedside) Swallow Evaluation - Inpatient Speech Language Pathology Referred by: Elia Arizmendi Start time: 13:20 End time: 13:45 Total patient contact: 25min Referral Type: Routine Swallow Consult Precautions: Standard, Fall, Full Code Reason for Referral/HPI: Patient is a 79 y/o M with history of decompensated cirrhosis, CAD & CHF, DM2, ANETTE, afib, admitted for AMS and increased confusion/poor memory over the last several days. Found with hepatic encepalopathy and cirrhosis. LOUNGE CAR ATTENDANT consult requested due to night nurse noting coughing with liquids, and patient endorsing a 1-2 year history of increased coughing while drinking liquids. LOUNGE CAR ATTENDANT IMPRESSIONS & RECOMMENDATIONS: Patient presents with likely mild oral-pharyngeal dysphagia primary to liquids. Although no s/sx aspiration occurred during this exam, patient describes coughing and feeling as though liquids go down the wrong tube, more and more frequently in recent years. He also describes at times feeling as though the liquid catches and doesn't want to go down (points to upper chest/proximal esophagus). When questioned further, he does feel as though this happens more frequently with water when he is drinking large volumes quickly. On exam, his oral-motor/peripheral exam is largely normal except for edentulousness with brand new dentures which are causing considerable gum pain and limiting his tongue movement as such. During PO trials, no s/sx aspiration and no pharyngeal or esophageal stasis is endorsed. However, noting that when patient takes large/consecutive sips of thin liquid, he appears with more discoordinated r espiratory/breathing pattern (at times with inhale/swallow/inhale pattern). Patient appears with good tolerance and improved respiratory pattern when taking small, single sips of liquid. Will benefit from modified diet for comfort in light of current oral pain, and aspiration precautions as below to minimize risk of pulmonary complications of aspiration. FURTHER INPATIENT LOUNGE CAR ATTENDANT SERVICES: No further LOUNGE CAR ATTENDANT services are indicated at this time. DISCHARGE RECOMMENDATIONS: No further LOUNGE CAR ATTENDANT services indicated/Please re-refer as needed Diet Recommendations: ? SOLIDS: 6-Soft & Bite-Sized Solids LIQUIDS: 0-Thin Liquids MEDICATIONS: Whole as tolerated with thin liquids RISK MANAGEMENT: Level of Assistance/Supervision: Intermittent supervision for all PO intake Positioning and environment: PO intake only when awake/alert? Reduce auditory and/or visual distractions when eating Up to chair Oral hygiene BID/2x per day Using friction with toothbrush on all oral structures as tolerated Strategies/Adaptations/Assistive Equipment: Small sips Small bites Slow rate of intake Reflux Precautions: Maintain fully upright position at least 30 minutes after meals Avoid meals/snacks 2-3 hours prior to reclining/sleeping Education Provided to: Nursing Patient Topics Addressed: anatomy/physiology of swallowing mechanism definition and impacts of aspiration impact of current diagnoses on swallow function role of LOUNGE CAR ATTENDANT in management of swallow disorders overt s/sx to monitor for re: potential aspiration of food / liquids relationship between respiratory function and deglutition rationale and instruction for additional risk management strategies as below SUBJECTIVE: Patient received: alert/awake. Agreeable to evaluation. Pain Reported n/a Baseline Swallow Function: Patient reports coughing and feeling as though liquids go down the wrong tube, more and more frequently in recent years. He also describes at times feeling as though the liquid catches and doesn't want to go down (points to upper chest/proximal esophagus). When questioned further, he does feel as though this happens more frequently with water when he is drinking large volumes quickly. 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 Speech: WFL Oral Mechanism Examination: Dentition: Edentulous, Full dentures Oral mucosa: Dry ? Cranial Nerve Assessment: WFL CN V ? Trigeminal Facial Sensation WNL Jaw Strength/ROM WNL ?WNL CN VII- Facial WNL labial ROM, strength, coordination. WNL lingual sensation WNL CN IX ? Glossopharyngeal WNL palatal elevation with phonation. No evidence of nasal emissions WNL CN X ? Vagus WNL Vocal quality and volume. Strong/sharp volitional cough WNL CX XII ? Hypoglossal WNL lingual ROM, strength, coordination WNL PO Intake: Trials Assessed: IDDSI 0 Thin Liquids IDDSI 5 Minced and Moist Solid IDDSI 7 Regular Solid Oral Phase Findings: Mild difficulty chewing due to pain with dentures. Pharyngeal Phase Findings: WFL Esophageal Phase Findings: ? No observed or reported symptoms at bedside ? [place] Swallow Protocol Results: PASS Complete/uninterrupted without s/sx aspiration FAIL ? Unable to complete without stopping/starting S/sx aspiration observed PLAN: Frequency: 2-3x/week for 1-2 weeks No further LOUNGE CAR ATTENDANT services indicated at this time. Please re-refer as needed. LOUNGE CAR ATTENDANT CPT Code: 44624 Clinical Swallowing Evaluation
[2024-03-05 19:46] VITALS: BP 159/68; PULSE 67; RESP 20; TEMP 36.8; O2SAT 95
[2024-03-05] MEDS: Prazosin 5 MG CAP 10 MG PO (21:15)
[2024-03-05] MEDS: Losartan 25 MG TAB 50 MG PO (21:16)
[2024-03-05] MEDS: Rosuvastatin 20 MG TAB 40 MG PO (21:16)
[2024-03-05] MEDS: Ferrous Sulfate 325 MG TAB PO (21:17)
[2024-03-05] MEDS: Normal Saline Flush 10 ML SYR IVP (21:18)
[2024-03-05 23:32] VITALS: BP 143/75; PULSE 63; RESP 20; TEMP 36.3; O2SAT 92
[2024-03-06 03:09] VITALS: BP 109/72; PULSE 75; RESP 20; TEMP 36; O2SAT 92
[2024-03-06] MEDS: Levothyroxine 200 MCG TAB 100 MCG PO (06:03)
[2024-03-06] MEDS: Lactulose 20 GM/30 ML CUP 30 GM PO ×2 (08:31→12:20)
[2024-03-06] MEDS: Potassium Chloride Liquid 20 MEQ PKT PO (08:32)
[2024-03-06] MEDS: Pregabalin 50 MG CAP PO (08:33)
[2024-03-06] MEDS: Tamsulosin 0.4 MG CAPCR PO (08:33)
[2024-03-06] MEDS: Pantoprazole 40 MG TABCR PO (08:33)
[2024-03-06] MEDS: metFORMIN 500 MG TAB 1000 MG PO (08:33)
[2024-03-06] MEDS: Rifaximin 550 MG TAB PO (08:33)
[2024-03-06] MEDS: Apixaban 5 MG TAB PO (08:33)
[2024-03-06] MEDS: Losartan 25 MG TAB 50 MG PO (08:33)
[2024-03-06] MEDS: Furosemide 20 MG TAB PO (08:33)
[2024-03-06] MEDS: Empaglifozin 25 MG TAB PO (08:33)
[2024-03-06] MEDS: Spironolactone 25 MG TAB PO (08:34)
[2024-03-06] MEDS: Docusate Sodium 100 MG CAP PO (08:34)
[2024-03-06] MEDS: Insulin Aspart 300 UNITS/3 ML PEN SC ×2 (08:39→12:20)
[2024-03-06 08:40] VITALS: BP 86/54; PULSE 80; RESP 16; TEMP 36.3; O2SAT 96
--- NOTE | 2024-03-06 12:28 | NUR.NOTE ---
Pt wanted to lay down to take medications this afternoon, advised that the safest way to tolerate food and fluids is to sit at a 90 degree angle, pt is unhappy with advice and still wants to lay down. Nursing again recommended sitting at a 90 degree angle and waited for pt to sit back up to take meds. Nursing Note:
--- NOTE | 2024-03-06 13:21 | PDOC.CMDIS ---
Date of service: 03/06/24 Time of Service: 13:21 LACE Index Scoring Tool Questions: Length of Stay (in days): 2 Was the patient admitted via the E.D.?: Yes Comorbidities: Previous M.I., Diabetes w/o Complication and Congestive Heart Failure E.D. Visits: 6 Answers: Total Score: 14 Risk of Readmission: High Risk Care Management Discharge Plan Reason for Hospitalization: hepatic encephalopathy Discharge Plan: Osmar will return home today with a resumption of HH RN, PT. His son will drive him home via private vehicle. He will follow up with his PCP and discharge plan of care. He is happy to be going home. Patient/Family Education Needs: Review discharge instructions and limitations, discussion of self care needs including ask me three. Services Needed at Discharge: Home Health Care Services (resumption of HH RN, PT) SDOH Health Related Social Needs: Health related social needs transpo insecurity
--- NOTE | 2024-03-14 08:02 | DSE_ITS ---
Date of service: 03/06/24 Time of Service: 11:30 DS: Diagnosis Discharge Diagnosis (1) Encephalopathy, hepatic: Status: Chronic (2) Cirrhosis: (3) Chronic atrial fibrillation: Status: Chronic (4) Type 2 diabetes mellitus: Status: Chronic (5) ANETTE (obstructive sleep apnea): Status: Chronic (6) Ventricular ectopy: Status: Acute (7) Hypertension: (8) Hypothyroidism: (9) Heart failure with reduced ejection fraction: (10) Lower urinary obstructive symptom: Status: Acute Discharge Plan Disposition Patient Disposition: Home W/Home Health Services Condition: Fair Discharge Details Reason For Visit: Hepatic Encephalopathy Admit Date/Time: 03/04/24 17:25 Admit Provider: Elia Arizmendi Attending Provider: Elia Arizmendi Primary Care Provider: Maryann Whitt Hospital Course Hospital Course: 79 y/o M with history of decompensated cirrhosis s/p TIPS, distal coloctomy with coloscomy, CAD & CHF, DM2, ANETTE, afib, admitted for AMS and increased confusion/poor memory over the last several days. Found with hepatic encephalopathy with elevated ammonia. Started on lactulose. Liver and renal function stable. Speech consult requested due to night nurse noting coughing with liquids, benign evaluation, made recommendations to lower risk or oropharyngeal aspiration. His mental status returned to baseline. Importance of ongoing lactulose therapy in addition to the rifaxamin emphasized. His home medications were not in our system correctly, this was reviewed with his primary [facility] TE[facility] from the [place] Resumption of home health nursing and PT services recommended to follow his chonic conditions and mental status and work on safety at home. Home Meds and New Rx's Prescriptions: New lactulose 20 gram/30 mL Solution 20 g PO QD-TID Qty: 1800 11RF Rx Instructions: to maintain colostomy output of 3-4 bags per day melatonin 3 mg Tablet 6 mg PO HS Qty: 0 0RF losartan 25 mg Tablet 50 mg PO BID Qty: 0 0RF rosuvastatin [Crestor] 20 mg Tablet 40 mg PO QPM Qty: 0 0RF Continued prazosin 5 mg Capsule 10 mg PO QHS pantoprazole 40 mg Tablet,Delayed Release (Dr/Ec) 40 mg PO DAILY metformin 1,000 mg Tablet 1,000 mg PO BID pregabalin 50 mg Capsule 50 mg PO BID Eliquis 5 mg Tablet 5 mg PO BID Hold Instructions: until discussed with outpatient team as you have not been taking it. nitroglycerin 0.4 mg Tablet, Sublingual 0.4 mg sublingual Q5 MIN PRN X3 PRNQty: 30 0RF miconazole nitrate 2 % Powder 1 applic TOPICAL BID PRN acetaminophen [Tylenol] 325 mg Capsule 650 mg PO Q8H MDD 3000 PRNQty: 0 0RF Hold Instructions: Changed by Provider rifaximin 550 mg Tablet 550 mg PO BID docusate sodium [Colace] 100 mg Capsule 100 mg PO BID Qty: 60 0RF tamsulosin 0.4 mg Capsule 0.4 mg PO DAILY ferrous sulfate 325 mg (65 mg iron) Tablet 325 mg PO DAILY empagliflozin 25 mg Tablet 25 mg PO DAILY furosemide [Lasix] 20 mg tablet 20 mg PO QAM levothyroxine 200 mcg Tablet 100 mcg PO QAM Qty: 0 0RF spironolactone 25 mg Tablet 25 mg PO DAILY Qty: 30 0RF cholecalciferol (vitamin D3) 25 mcg (1,000 unit) capsule 25 mcg PO DAILY diclofenac sodium [Arthritis Pain (diclofenac)] 1 % gel 2 g topical QID Rx Instructions: apply to single elbow, wrist or hand; for hand includes palm/fingers/back of hand losartan 50 mg tablet 50 mg PO DAILY rosuvastatin [Crestor] 40 mg tablet 40 mg PO DAILY venlafaxine 150 mg capsule,extended release 24hr 150 mg PO DAILY Discontinued Entresto 24-26 mg Tablet 1 tab PO BID Qty: 60 0RF atorvastatin 40 mg tablet 40 mg PO QPM Qty: 30 0RF No Action clindamycin HCl 300 mg capsule 300 mg PO TID 7 Days Qty: 21 0RF Discharge Instructions Instructions: Hepatic Encephalopathy (DC) Stand Alone Forms: Nursing Discharge Form Referrals: Maryann Whitt [Primary Care Provider] - (Please call Friday to make a follow up appointment for 1-2 weeks ) Activity:: Activity as Tolerated Equipment/Supplies:: No Equipment Needed Diet:: Carb Counting Discharge Orders Discharge Orders: Discharge Order (Routine); Ordered 03/06/24 Ordered By: Elia Arizmendi Discharge Data Discharge Date/Time-TO BE ENTERED AT DEPARTURE: 03/06/24 13:27 DS: Summary Time Spent with Patient providing and/or coordinating discharge services: Greater than 30 minutes Status at Discharge Functional status at discharge: independent ambulation Overall status at discharge: patient is back to baseline Mental Status: mental status grossly normal Speech and Movement: speech and movement normal Mood: congruent mood Affect: normal affect Quality:SDOH Health Related Social Needs: Health related social needs transpo insecurity Exam Narrative Exam Narrative: GEN: Alert and oriented to self, hospital. pleasent and cooperative, memory grossly normal, clear in thought process. No acute distress at rest. HEENT: Head atraumatic. Conjunctiva clear, no icterus. PEERL, EOMI. MMM LUNGS: CTAB with normal effort CV: RRR with no murmurs, gallops, or rubs. ABD: +BS, soft, not tender. Mild distention. Scarring in mid abdomen with colostomy in place. EXT: no cyanosis, clubbing. 1+ elizabeth edema to shins NEURO: CN 2-12 grossly intact. Normal movement of 4 extremities. Normal speech and coordination. minimal asterixis hands PSYCH: normal mood and affect Psych Mental Status: mental status grossly normal Speech and Movement: speech and movement normal Mood: congruent mood Affect: normal affect DS: Data Vitals/I&O Vitals and I&O: Vital Signs Temperature 36.3 C L 03/06/24 08:40 Temperature Source Tympanic 03/06/24 08:40 Pulse 80 03/06/24 08:40 Pulse Rhythm Regular 03/06/24 08:00 Pulse 60 03/04/24 19:30 Respiratory Rate 16 03/06/24 08:40 Respiratory Effort Normal 03/06/24 08:00 Respiratory Depth Normal 03/06/24 08:00 Respiratory Pattern Normal 03/06/24 08:00 Blood Pressure 86/54 L 03/06/24 08:40 Blood Pressure Mean 123 03/04/24 17:01 Blood Pressure Position Sitting 03/04/24 15:31 Pulse Oximetry 96 03/06/24 08:40 Oxygen Delivery Method Room Air 03/06/24 08:40 Oxygen Flow Rate 0 03/06/24 08:40 Pain Level 0 03/06/24 08:40 Comment nurse notified. 03/05/24 15:50 PFSH All Active Problems (Updated 03/13/24 @ 21:12 by STEFANO Carrasquillo) Sepsis syndrome (Acute) PAF (paroxysmal atrial fibrillation) (Chronic) Gram-negative bacteremia (Acute) Cellulitis (Acute) Lower urinary obstructive symptom (Acute) Encephalopathy, hepatic (Chronic) Anemia of chronic disease (Acute) Thrombocytopenia (Chronic) Ventricular ectopy (Acute) Sinus bradycardia (Acute) Leukocytosis (Acute) Hypertension (Chronic) Elevated lactic acid level (Acute) CHF (congestive heart failure) (Chronic) No-show for appointment (Acute) Left rotator cuff tear (Acute) Acute UTI (urinary tract infection) (Acute) Weakness (Acute) Non-ST elevation [place] (NSTEMI) (Acute) Pre-syncope (Acute) Frequent falls (Acute) Orthostatic hypotension (Acute) Chronic atrial fibrillation (Chronic) Type 2 diabetes mellitus (Chronic) Hypokalemia (Acute) Bradycardia (Acute) Multiple falls (Acute) Acute metabolic encephalopathy (Acute) Medication monitoring encounter (Acute) ANETTE (obstructive sleep apnea) (Chronic) Chest pain (Acute) CHF exacerbation (Acute) CHF (congestive heart failure) (Chronic) EF 25%- 2023 Medical History Heart failure with reduced ejection fraction Hypothyroidism Small bowel obstruction Lactic acid acidosis Creatinine elevation Acute UTI Anticoagulated COVID Chronic low back pain Recurrent intestinal obstruction History of colon cancer Palliative care encounter [facility]ed by [facility] Chronic anticoagulation Portal hypertension Cirrhosis TIPs placed (?when, 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, Dx [facility] as per pt Non-insulin dependent type 2 diabetes mellitus Incontinence Hypertension Scleral icterus Surgical History S/P TIPS (transjugular intrahepatic portosystemic shunt) H/O left hemicolectomy Colostomy in place Social History Smoking/Tobacco Use Status: Former Tobacco Use Smoking risk assessment performed?: Yes Alcohol Intake: former Drug use: Never Substance use type: does not use Housing: house Do you feel safe at home: Yes Do you feel safe in your relationship?: Yes Additional Social history: Lives with , son, and sick [id number] in [place], moved up from [place] in 2019. [place] . Time Spent with Patient Time Spent with Patient: <45 minutes Time was spent: preparing to see the patient(eg.review tests), obtaining and/or reviewing separately [facility], ordering medications,tests, procedures, referring, communicating with other health aged or disabled carer, indepentently interpreting results, counseling the patient and care coordination
== END 2024-03-06 13:27 | disposition home health service (06) ==
LOC: ER 19:38 → MS 19:43
PROVIDERS: Family Medicine; Admitting Provider Family Medicine; Emergency Provider Emergency Medicine; PCP Nurse Practitioner Adult Health; Visit Provider Family Medicine
DX: K76.82 Hepatic encephalopathy (principal); I48.20 Chronic atrial fibrillation, unspecified; E11.22 Type 2 diabetes mellitus with diabetic chronic kidney disease; N18.2 Chronic kidney disease, stage 2 (mild); G47.33 Obstructive sleep apnea (adult) (pediatric); I49.3 Ventricular premature depolarization; I13.0 Hypertensive heart and chronic kidney disease with heart failure and stage 1 through stage 4 chronic kidney disease, or unspecified chronic kidney disease; E03.9 Hypothyroidism, unspecified; I50.20 Unspecified systolic (congestive) heart failure; N13.9 Obstructive and reflux uropathy, unspecified; K75.81 Nonalcoholic steatohepatitis (NASH); K74.69 Other cirrhosis of liver; Z79.84 Long term (current) use of oral hypoglycemic drugs; E87.6 Hypokalemia; R94.31 Abnormal electrocardiogram [ECG] [EKG]; I25.10 Atherosclerotic heart disease of native coronary artery without angina pectoris; Z79.01 Long term (current) use of anticoagulants; D63.8 Anemia in other chronic diseases classified elsewhere; D69.6 Thrombocytopenia, unspecified; D72.829 Elevated white blood cell count, unspecified; I25.2 Old myocardial infarction; R29.6 Repeated falls; G89.29 Other chronic pain; M54.50 Low back pain, unspecified; Z85.038 Personal history of other malignant neoplasm of large intestine; K76.6 Portal hypertension; Z79.899 Other long term (current) drug therapy
CPT/HCPCS: 00123; 36415; 80053; 82805; 92610; 93005; 96365; 96366; 99285; 80320; 81003; 81015; 82140; 83735; 84439; 84443; 84484; 85025; 93010; 99223; 99232; G0378; J1815; J3475

== ENCOUNTER 2024-03-12 18:47 | Emergency (ER) | payer OTHER, SELFPAY ==
--- NOTE | 2024-03-12 18:45 | RT.EKG_ITS ---
APPROVED REPORT Exam: Resting ECG Reason for Exam: chest pain Patient Location: E HR:91 bpm ECG Measurements Heart Rate 91 AXIS UT 277 P 254 QRSd 145 QRS -11 QT 372 T 101 QTc 458 Conclusion Sinus or ectopic atrial rhythm...P axis (-45,135) Ventricular premature complex...V complex w/ short R-R interval Prolonged UT interval...UT >215, V-rate 91-120 Left bundle branch block...QRSd>120, broad/notched R ST elevation secondary to IVCD...Multiple VCG criteria sinus rhythm, left axis, LBBB
[2024-03-12 18:48] VITALS: BP 186/69; PULSE 92; RESP 18; TEMP 38.3; O2SAT 95
[2024-03-12 18:56] VITALS: RESP 18
--- NOTE | 2024-03-12 19:00 | DI.RAD_ITS ---
Exam(s) XR ANKLE RT COMPLETE EXAM: XR ANKLE RT COMPLETE CLINICAL HISTORY: fall ankle pain, possible cellulitis. TECHNIQUE: 2D digital imaging was performed. COMPARISON: No exams were available for comparison FINDINGS: 3 views There is soft tissue swelling around the entire ankle. However, there is no evidence of fracture or widening of the ankle mortise. Talar dome unremarkable. Bone density normal. No osseous lesions. IMPRESSION: Soft tissue swelling but no acute osseous findings. DATA REPOSITORY: RADIATION DOSE DELIVERED:
--- NOTE | 2024-03-12 19:00 | DI.RAD_ITS ---
Exam(s) XR SHOULDER LT COMPLETE 2+V EXAM: XR SHOULDER LT COMPLETE 2+V CLINICAL HISTORY: fall, L shoulder pain. TECHNIQUE: 2D digital imaging was performed. COMPARISON: CR XR SHOULDER LT COMPLETE 2+V from 11/04/2023 FINDINGS: Five views. No evidence of fracture or dislocation nor abnormal soft tissue calcifications. Mild degenerative ch anges noted in the glenohumeral and AC joints. No osseous lesions. Bone density normal. Cardiac re adalgisa device noted over the left chest wall. Visualized clavicle appears intact. IMPRESSION: No acute osseous findings. DATA REPOSITORY: RADIATION DOSE DELIVERED:
--- NOTE | 2024-03-12 19:00 | DI.CT_ITS ---
Exam(s) CT HEAD WO EXAM: CT HEAD WO CLINICAL HISTORY: fall ams. TECHNIQUE: Imaging Protocol: Axial computed tomography images with coronal and sagittal reformatted images were created and reviewed COMPARISON: CT CT HEAD WO from 01/19/2024 FINDINGS: There are no skull fractures. There is no fluid in the visualized paranasal sinuses. There is no evidence of intracranial hemorrhage, mass effect, or shift of midline structures. There are no extra-axial fluid collections. The ventricles are not enlarged or shifted and there is no blo od within the ventricular system nor within the basal cisterns. There is some mild bilateral periventricular hypodensity consistent with chronic small vessel disease . No acute territorial infarct evident. IMPRESSION: No acute intracranial findings on this noninfused CT scan of the brain. If clinically indicated follow-up MRI can be performed for added sensitivity and specificity. RADIATION DOSE DELIVERED: 884.55mGy.cm Total DLP DATA REPOSITORY: All CT scans at this facility are submitted to the National Radiology Data Registry (NRDR) Dose Index Registry (DIR) with the [employer] (A[employer]). RADIATION OPTIMIZATION: All CT scans at this facility use at least one of these dose optimization te chniques: automated exposure control; mA and/or kV adjustment per patient size (includes targeted exa ms where dose is matched to clinical indication); or iterative reconstruction.
--- NOTE | 2024-03-12 19:00 | DI.RAD_ITS ---
Exam(s) XR CHEST 2V PA LATERAL EXAM: XR CHEST 2V PA LATERAL CLINICAL HISTORY: fall ,ams. TECHNIQUE: 2D digital imaging was performed. COMPARISON: CR,XR XR PORTABLE CHEST AP from 02/22/2024 FINDINGS: 2 views: Left anterior chest wall cardiac detect device Heart size upper normal. Mediastinum not widened. Lungs are clear. No infiltrates nor pleural effusions. IMPRESSION: No acute pulmonary findings. DATA REPOSITORY: RADIATION DOSE DELIVERED:
[2024-03-12 19:26] LABS: Abs Immature Grans 0.02 10^3/uL (0.0-0.06); Absolute Basophil Count 0.03 10^3/uL (0.0-0.2); Absolute Eosinophil Count 0.08 10^3/uL (0.0-0.7); Absolute Lymphocyte Count 0.28 10^3/uL (1.2-3.4); Absolute Monocyte Count 0.58 10^3/uL (0.1-0.8); Absolute Neutrophil Count 7.24 10^3/uL (1.2-6.7); Basophils % 0.4 %; HCT 38.7 % (40.0-50.0); Immature Grans % 0.2 %; Lymphocytes % 3.4 %; MCH 30.4 pg (27.0-33.0); MCHC 33.6 % (32.0-36.0); MCV 91 fL (80-95); MPV 10.5 fL (8.0-11.0); RBC 4.27 10^6/uL (4.36-5.78); RDW 15.6 % (11.8-14.1); RDW-SD 51.8 fL; WBC 8.23 10^3/uL (4.4-10.8)
[2024-03-12 19:30] LABS: Bilirubin Negative (Negative); Blood Small (Negative); Clarity Clear (Clear); Glucose 500 mg/dL (Negative); Ketones Negative (Negative); Leukocyte Esterase Negative (Negative); Nitrite Negative (Negative); Specific Gravity 1.015 (1.005-1.025); Urobilinogen 0.2 mg/dL (Up to 0.2)
--- NOTE | 2024-03-12 19:33 | ED.GENADUL_ITS ---
Discharge Plan Disposition Patient Disposition: Home Condition: Improving Discharge Details Clinical Impression: Cellulitis Primary Care Provider: Maryann Whitt ED Provider: Aftab Esparza Home Meds and New Rx's Prescriptions: New clindamycin HCl 300 mg capsule 300 mg PO TID 7 Days Qty: 21 0RF No Action prazosin 5 mg Capsule 10 mg PO QHS pantoprazole 40 mg Tablet,Delayed Release (Dr/Ec) 40 mg PO DAILY metformin 1,000 mg Tablet 1,000 mg PO BID pregabalin 50 mg Capsule 50 mg PO BID Eliquis 5 mg Tablet 5 mg PO BID Hold Instructions: until discussed with outpatient team as you have not been taking it. nitroglycerin 0.4 mg Tablet, Sublingual 0.4 mg sublingual Q5 MIN PRN X3 PRNQty: 30 0RF miconazole nitrate 2 % Powder 1 applic TOPICAL BID PRN acetaminophen [Tylenol] 325 mg Capsule 650 mg PO Q8H MDD 3000 PRNQty: 0 0RF Hold Instructions: Changed by Provider rifaximin 550 mg Tablet 550 mg PO BID docusate sodium [Colace] 100 mg Capsule 100 mg PO BID Qty: 60 0RF tamsulosin 0.4 mg Capsule 0.4 mg PO DAILY ferrous sulfate 325 mg (65 mg iron) Tablet 325 mg PO DAILY empagliflozin 25 mg Tablet 25 mg PO DAILY furosemide [Lasix] 20 mg tablet 20 mg PO QAM levothyroxine 200 mcg Tablet 100 mcg PO QAM Qty: 0 0RF spironolactone 25 mg Tablet 25 mg PO DAILY Qty: 30 0RF cholecalciferol (vitamin D3) 25 mcg (1,000 unit) capsule 25 mcg PO DAILY diclofenac sodium [Arthritis Pain (diclofenac)] 1 % gel 2 g topical QID Rx Instructions: apply to single elbow, wrist or hand; for hand includes palm/fingers/back of hand losartan 50 mg tablet 50 mg PO DAILY rosuvastatin [Crestor] 40 mg tablet 40 mg PO DAILY venlafaxine 150 mg capsule,extended release 24hr 150 mg PO DAILY lactulose 20 gram/30 mL Solution 20 g PO QD-TID Qty: 1800 11RF Rx Instructions: to maintain colostomy output of 3-4 bags per day melatonin 3 mg Tablet 6 mg PO HS Qty: 0 0RF losartan 25 mg Tablet 50 mg PO BID Qty: 0 0RF rosuvastatin [Crestor] 20 mg Tablet 40 mg PO QPM Qty: 0 0RF Discharge Instructions Instructions: Cellulitis (ED) Additional Instructions: You are being treated for a cellulitis of your right lower extremity however we would like you to have a repeat ultrasound performed on your right lower extremity on Friday. HPI General Date/Time Provider Initiated Documentation: 03/12/24 18:54 . HPI Narrative: 79-year-old male history of CHF diabetes presents after fall this evening, endorses slip and fall with injury to his right ankle and left shoulder. Denies loss of consciousness. Related Data Home Medications Medication Instructions Recorded Confirmed apixaban 5 mg tablet (Eliquis) 5 mg PO BID 11/08/22 03/12/24 metformin 1,000 mg tablet 1,000 mg PO BID 11/08/22 03/12/24 pantoprazole 40 mg tablet,delayed 40 mg PO DAILY 11/08/22 03/12/24 release prazosin 5 mg capsule 10 mg PO QHS 11/08/22 03/12/24 pregabalin 50 mg capsule 50 mg PO BID 11/08/22 03/12/24 tamsulosin 0.4 mg capsule 0.4 mg PO DAILY 11/29/22 03/12/24 nitroglycerin 0.4 mg sublingual 0.4 mg sublingual Q5 MIN PRN X3 02/10/23 03/12/24 tablet PRN #30 tabs ferrous sulfate 325 mg (65 mg 325 mg PO DAILY 03/08/23 03/12/24 iron) tablet empagliflozin 25 mg tablet 25 mg PO DAILY 04/09/23 03/12/24 furosemide 20 mg tablet (Lasix) 20 mg PO QAM 04/09/23 03/12/24 levothyroxine 200 mcg tablet 100 mcg (1/2 x 200 mcg) PO QAM #0 04/10/23 03/12/24 tabs miconazole nitrate 2 % topical 1 applic topical BID PRN 06/16/23 03/12/24 powder acetaminophen 325 mg capsule 650 mg (2 x 325 mg) PO Q8H PRN #0 06/17/23 03/12/24 (Tylenol) caps rifaximin 550 mg tablet 550 mg PO BID 07/07/23 03/12/24 docusate sodium 100 mg capsule 100 mg PO BID #60 caps 11/09/23 03/12/24 (Colace) spironolactone 25 mg tablet 25 mg PO DAILY #30 tabs 02/24/24 03/12/24 cholecalciferol (vitamin D3) 25 25 mcg PO DAILY 03/05/24 03/12/24 mcg (1,000 unit) capsule diclofenac sodium 1 % topical gel 2 g topical QID 03/05/24 03/12/24 (Arthritis Pain (diclofenac)) losartan 50 mg tablet 50 mg PO DAILY 03/05/24 03/12/24 rosuvastatin 40 mg tablet (Crestor) 40 mg PO DAILY 03/05/24 03/12/24 venlafaxine 150 mg 150 mg PO DAILY 03/05/24 03/12/24 capsule,extended release 24 hr lactulose 20 gram/30 mL oral 20 g (30 mL) PO QD-TID #1,800 mL 03/06/24 03/12/24 solution losartan 25 mg tablet 50 mg (2 x 25 mg) PO BID #0 tabs 03/06/24 03/12/24 melatonin 3 mg tablet 6 mg (2 x 3 mg) PO HS #0 tabs 03/06/24 03/12/24 rosuvastatin 20 mg tablet (Crestor) 40 mg (2 x 20 mg) PO QPM #0 tabs 03/06/24 03/12/24 clindamycin HCl 300 mg capsule 300 mg PO TID 7 days #21 caps 03/12/24 Previous Rx's Medication Instructions Recorded nitroglycerin 0.4 mg sublingual 0.4 mg sublingual Q5 MIN PRN X3 02/10/23 tablet PRN #30 tabs levothyroxine 200 mcg tablet 100 mcg (1/2 x 200 mcg) PO QAM #0 04/10/23 tabs acetaminophen 325 mg capsule 650 mg (2 x 325 mg) PO Q8H PRN #0 06/17/23 (Tylenol) caps docusate sodium 100 mg capsule 100 mg PO BID #60 caps 11/09/23 (Colace) spironolactone 25 mg tablet 25 mg PO DAILY #30 tabs 02/24/24 lactulose 20 gram/30 mL oral 20 g (30 mL) PO QD-TID #1,800 mL 03/06/24 solution losartan 25 mg tablet 50 mg (2 x 25 mg) PO BID #0 tabs 03/06/24 melatonin 3 mg tablet 6 mg (2 x 3 mg) PO HS #0 tabs 03/06/24 rosuvastatin 20 mg tablet (Crestor) 40 mg (2 x 20 mg) PO QPM #0 tabs 03/06/24 clindamycin HCl 300 mg capsule 300 mg PO TID 7 days #21 caps 03/12/24 Allergies Allergy/AdvReac Type Severity Reaction Status Date / Time Penicillins Allergy Mild Itching Unverified 03/12/24 19:02 morphine AdvReac Severe vomiting Unverified 03/12/24 19:02 mussels AdvReac Severe vomiting Unverified 03/12/24 19:02 General Stated Complaint: GenMedical ANNA: 3 Review of Systems Narrative: Review of Systems Constitutional: negative Eyes: negative ENT: negative Cardiovascular: negative Respiratory: negative Gastrointestinal: negative : negative Musculoskeletal: Ankle pain Skin: negative Neurologic: negative Psych: negative Exam Narrative Exam Narrative: Physical Examination General: alert, awake, cooperative, resting comfortably, no acute distress HEENT: normocephalic, atraumatic; PERRL, EOM intact, conjunctiva normal; no nasal discharge; moist mucous membranes, oral and pharyngeal mucosa normal, tolerating secretions Neck: supple, trachea midline; full ROM Chest: normal to inspection Respiratory: normal respiratory effort, speaking in full sentences, clear to auscultation, no wheezing, rales or rhonchi Cardiac: regular rate, regular rhythm, S1S2 intact, no murmurs rubs or gallops GI: abdomen soft, non-tender, non-distended; no palpable mass or hepatosplenomegaly; ostomy in place normal stool output : Some maceration and induration to skin surrounding penis and inguinal regio n, no crepitus bulla or tenderness Skin: no lesions, rashes or trauma appreciated Neuro: AAOx3, cranial nerves intact, 5/strength upper and lower extremities bilaterally Extremities: Erythema and induration to right lower extremity beginning at ankle extending up to mid [place] no crepitus no bulla no fluctuance; full range of motion toes ankle foot knee shoulders Psych: Appropriate mood and affect Course Vital Signs Vital signs: Vital Signs Temperature 38.3 C H 03/12/24 18:48 Pulse 92 H 03/12/24 18:48 Respiratory Rate 18 03/12/24 18:48 Blood Pressure 186/69 H 03/12/24 18:48 Pulse Oximetry 95 03/12/24 18:48 Temperature 38.3 C H 03/12/24 18:48 Pulse 92 H 03/12/24 18:48 Respiratory Rate 18 03/12/24 18:56 Respiratory Effort Normal 03/12/24 18:56 Blood Pressure 186/69 H 03/12/24 18:48 Pulse Oximetry 95 03/12/24 18:48 Pain Level 8 03/12/24 18:48 Medical Decision Making 79-year-old male history of CHF, diabetes presents for mechanical fall from standing endorses right ankle discomfort and left shoulder pain, no loss of conscious no head injury. Noted to be febrile on arrival, erythematous warm indurated right lower extremity beginning in ankle up to mid whe[place], no crepitus no bulla no fluctuance, bedside ultrasound negative for DVT, clinical suspicion for cellulitis low suspicion for fracture or dislocation. Patient alert and oriented however does appear slightly confused and fatigued appearing, low suspicion for intracranial hemorrhage however given recent trauma will obtain CT head, consider metabolic derangement versus infectious process such as cellulitis with early mild delirium low suspicion for UTI or pneumonia. Will obtain blood cultures, basic labs, will start empiric clindamycin given appearance of right lower extremity concerning for cellulitis, disposition pending imaging results lab results and reassessment. 22: 02 labs imaging largely unremarkable. Likely cellulitis right lower extremity. Will continue on clindamycin p.o. Patient alert interactive hemodynamically stable. Quality:SDOH Health Related Social Needs: Health related social needs transpo insecurity PFSH All Active Problems (Updated 03/12/24 @ 22:03 by Aftab Esparza MD) Cellulitis (Acute) Lower urinary obstructive symptom (Acute) Encephalopathy, hepatic (Acute) Anemia of chronic disease (Acute) Thrombocytopenia (Chronic) Ventricular ectopy (Acute) Sinus bradycardia (Acute) Leukocytosis (Acute) Hypertension (Chronic) Elevated lactic acid level (Acute) CHF (congestive heart failure) (Chronic) No-show for appointment (Acute) Left rotator cuff tear (Acute) Acute UTI (urinary tract infection) (Acute) Weakness (Acute) Non-ST elevation RI (NSTEMI) (Acute) Pre-syncope (Acute) Frequent falls (Acute) Orthostatic hypotension (Acute) Chronic atrial fibrillation (Chronic) Type 2 diabetes mellitus (Chronic) Hypokalemia (Acute) Bradycardia (Acute) Multiple falls (Acute) Acute metabolic encephalopathy (Acute) Medication monitoring encounter (Acute) ANETTE (obstructive sleep apnea) (Chronic) Chest pain (Acute) CHF exacerbation (Acute) CHF (congestive heart failure) (Chronic) EF 25%- 2023 Medical History (Updated 03/12/24 @ 22:03 by Aftab Esparza MD) Heart failure with reduced ejection fraction Hypothyroidism Small bowel obstruction Lactic acid acidosis Creatinine elevation Acute UTI Anticoagulated COVID Chronic low back pain Recurrent intestinal obstruction History of colon cancer Palliative care encounter Followed by [facility] Chronic anticoagulation Portal hypertension Cirrhosis TIPs placed (?when, 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, Dx [facility] as per pt Non-insulin dependent type 2 diabetes mellitus Incontinence Hypertension Scleral icterus Surgical History S/P TIPS (transjugular intrahepatic portosystemic shunt) H/O left hemicolectomy Colostomy in place Social History Smoking/Tobacco Use Status: Former Tobacco Use Smoking risk assessment performed?: Yes Alcohol Intake: former Drug use: Never Substance use type: does not use Housing: house Do you feel safe at home: Yes Do you feel safe in your relationship?: Yes Additional Social history: Lives with , son, and sick [id number] in [place], moved up from [place] in 2019. [place].
[2024-03-12 19:34] LABS: Platelet Count 71 10^3/uL (130-400)
[2024-03-12 19:35] LABS: Bacteria Few HPF (Negative); C & S Indicated? No; Casts Negative LPF (Negative); Crystals Negative HPF (Negative); Epithelial Cells Few HPF (Negative); Mucus Negative (Negative)
[2024-03-12 19:37] LABS: Ammonia 50 umol/L (11-32)
[2024-03-12 19:39] LABS: ETHANOL BLOOD < 3.0 mg/dL (<10)
[2024-03-12 19:42] LABS: ALT 31 U/L (16-63); AST 49 U/L (15-37); Albumin 3.4 g/dL (3.4-5.0); Alkaline Phosphatase 161 U/L (46-116); Anion Gap 11.8 mmol/L (3-11); BUN 12 mg/dL (7-18); Bilirubin, Total 2.2 mg/dL (0.2-1.0); CO2 24.2 mmol/L (21.0-32.0); CREATININE 1.1 mg/dL (0.70-1.30); Calcium 9.4 mg/dL (8.5-10.1); Chloride 103 mmol/L (98-107); Estimated GFR 69.14 (mL/min/1.73m2); Glucose 191 mg/dL (74-106); Potassium 3.7 mmol/L (3.5-5.1); Sodium 139 mmol/L (136-145); Total Protein 7.3 g/dL (6.4-8.2)
[2024-03-12] MEDS: ACETAMINOPHEN 1,000 MG/100 ML BTL 400 MG IVPB (20:03)
[2024-03-12] MEDS: CLINDAMYCIN 600 MG/50 ML BAG 100 MG IVPB (20:06)
[2024-03-12] MEDS: Normal Saline 1,000 ML 500 ML IV (20:06)
--- NOTE | 2024-03-12 21:32 | DI.VRAD_ITS ---
PROCEDURE INFORMATION: Exam: CT Head Without Contrast Exam date and time: 03/12/2024 8:34 PM Age: 79 years old Clinical indication: Other: Fall, AMS TECHNIQUE: Imaging protocol: Computed tomography of the head without contrast. COMPARISON: CT HEAD WO 01/19/2024 12:25 AM FINDINGS: Brain: Prominence of cerebral sulci reflects cerebral atrophy. Poorly marginated hypodensities again seen throughout the deep and periventricular white matter of both cerebral hemispheres are consistent with underlying microvascular ischemic changes. Brainstem and cerebellum are unremarkable and there is no evidence of acute transcortical infarction or recent intracranial hemorrhage. Cerebral ventricles: Stable in configuration with no midline shift or hydrocephalus evident. Paranasal sinuses: Previous bilateral ethmoidectomies and maxillary antrostomies again evident with lobular mucosal disease seen along the bases of both maxillary sinuses and a few small scattered mucosal densities also seen throughout the ethmoid regions bilaterally. Mastoid air cells: Grossly clear bilaterally. Bones: Bony calvarium and skull base are intact and no acute fractures are detected. Soft tissues: Unremarkable. IMPRESSION: Cerebral atrophy and probable underlying microvascular ischemic changes with no evidence of acute transcortical infarction, recent intracranial hemorrhage or hydrocephalus. No acute intracranial process is detected. Dictated and Authenticated by: Junaid Graham MD. Ordering:KATIA Ugalde MD
--- NOTE | 2024-03-12 21:35 | DI.VRAD_ITS ---
PROCEDURE INFORMATION: Exam: XR Left Shoulder Exam date and time: 03/12/2024 8:48 PM Age: 79 years old Clinical indication: Pain; Shoulder; Left TECHNIQUE: Imaging protocol: Radiologic exam of the left shoulder. Views: 2 or more views. COMPARISON: CR XR SHOULDER LT COMPLETE 2+V 11/04/2023 3:43 PM FINDINGS: Bones/joints: Glenohumeral alignment is normal. Osteophytes are seen along the acromioclavicular joint space margins and irregularity of the coracoid process could relate to remote injury. No acute fractures are detected. Soft tissues: Unremarkable. IMPRESSION: Acromioclavicular arthropathy and irregularity of the coracoid process which could relate to remote injury; correlation with clinical data is requested. No acute fracture is seen. Dictated and Authenticated by: Junaid Graham MD. Ordering:KATIA Ugalde MD
--- NOTE | 2024-03-12 21:37 | DI.VRAD_ITS ---
PROCEDURE INFORMATION: Exam: XR Chest Exam date and time: 03/12/2024 8:44 PM Age: 79 years old Clinical indication: Other: Fall, AMS TECHNIQUE: Imaging protocol: Radiologic exam of the chest. Views: 2 views. COMPARISON: CR XR PORTABLE CHEST AP 02/22/2024 12:48 AM FINDINGS: Lungs: No new parenchymal mass or consolidation detected. Pleural spaces: No pneumothorax or pleural effusion is seen. Heart/Mediastinum: Cardiomegaly is similar in appearance and vessel margins remain relatively sharply defined. Bones/joints: No acute osseous lesions are detected. IMPRESSION: Stable cardiomegaly with no new evidence of an acute cardiopulmonary process. Dictated and Authenticated by: Junaid Graham MD. Ordering:KATIA Ugalde MD
--- NOTE | 2024-03-12 21:39 | DI.VRAD_ITS ---
PROCEDURE INFORMATION: Exam: XR Right Ankle Exam date and time: 03/12/2024 8:55 PM Age: 79 years old Clinical indication: Other: Fall ankle pain, possible cellulitis TECHNIQUE: Imaging protocol: Radiologic exam of the right ankle. Views: 3 or more views. COMPARISON: CR XR FOOT RT COMPLETE 11/08/2022 12:33 PM FINDINGS: Bones/joints: The talar dome appears intact of the right ankle mortise is grossly preserved with no acute right ankle fracture is detected. Soft tissues: Soft tissue swelling is seen diffusely about the distal right foreleg and ankle. IMPRESSION: Soft tissue swelling is seen diffusely throughout the distal right foreleg and ankle and cellulitis or underlying ligamentous injury cannot be excluded. Correlation with clinical data is necessary. Dictated and Authenticated by: Junaid Graham MD. Ordering:KATIA Ugalde MD
--- NOTE | 2024-03-12 22:15 | NUR.NOTE ---
Waldemar VARGAS ultrasound requisition faxed to [facility]. Patient advised to call [facility] scheduling Friday to make appt. for the study.Nursing Note:
[2024-03-12 23:02] VITALS: BP 182/87; PULSE 89; RESP 18; O2SAT 94
--- NOTE | 2024-03-13 13:50 | W.ED.FU ---
Date of service: 03/13/24 Time of Service: 13:50 Follow Up Plan: Patient's blood cultures growing gram-negative rods. Spoke and talked to his significant other, states he is stable from his visit yesterday but not significantly better. Discussed results with her and advised that he should come back in for reassessment and repeat blood draw at the minimum. She voiced understanding of this and plans to bring him into soon as possible.
== END 2024-03-12 23:09 | disposition home or self-care (01) ==
PROVIDERS: Emergency Provider Emergency Medicine; PCP Nurse Practitioner Adult Health
DX: L03.115 Cellulitis of right lower limb (principal); E11.9 Type 2 diabetes mellitus without complications; I11.0 Hypertensive heart disease with heart failure; I50.9 Heart failure, unspecified; I25.2 Old myocardial infarction; Z79.01 Long term (current) use of anticoagulants; Z79.84 Long term (current) use of oral hypoglycemic drugs; Z87.891 Personal history of nicotine dependence
CPT/HCPCS: 80053; 87040; 87077; 93005; 96374; 96375; 99285; 70450; 71046; 73030; 73610; 80320; 81003; 81015; 82140; 85025; 87186; 93010; 99284; J0131; J0737

== ENCOUNTER 2024-03-13 16:04 | Inpatient (IN) | payer OTHER, SELFPAY ==
[2024-03-13] VITALS (29 sets, daily range): BP systolic 134–217; BP diastolic 57–116; PULSE 0–97; RESP 14–21; TEMP 37.2–37.5; O2SAT 94–97
[2024-03-13 17:28] LABS: Abs Immature Grans 0.02 10^3/uL (0.0-0.06); Absolute Basophil Count 0.02 10^3/uL (0.0-0.2); Absolute Eosinophil Count 0.07 10^3/uL (0.0-0.7); Absolute Lymphocyte Count 0.33 10^3/uL (1.2-3.4); Absolute Monocyte Count 0.52 10^3/uL (0.1-0.8); Absolute Neutrophil Count 4.06 10^3/uL (1.2-6.7); Basophils % 0.4 %; Eosinophils % 1.4 %; HCT 37.5 % (40.0-50.0); HGB 12.5 g/dL (13.5-17.5); Immature Grans % 0.4 %; Lymphocytes % 6.6 %; MCH 30.5 pg (27.0-33.0); MCHC 33.3 % (32.0-36.0); MCV 92 fL (80-95); MPV 11.7 fL (8.0-11.0); Monocytes % 10.4 %; Neutrophils % 80.8 %; RDW 15.6 % (11.8-14.1); RDW-SD 51.6 fL; WBC 5.02 10^3/uL (4.4-10.8)
[2024-03-13 17:29] LABS: Lactate 3.2 mmol/L (0.6-1.4)
[2024-03-13 17:37] LABS: INR 1.2 (0.9-1.1); Prothrombin Time 12.2 sec (9.1-11.1)
[2024-03-13 17:40] LABS: C-Reactive Protein 9.46 mg/dL (<or=0.5)
[2024-03-13 17:42] LABS: ALT 32 U/L (16-63); AST 42 U/L (15-37); Alkaline Phosphatase 142 U/L (46-116); Anion Gap 12.6 mmol/L (3-11); BUN 15 mg/dL (7-18); Bilirubin, Total 2.3 mg/dL (0.2-1.0); CO2 24.4 mmol/L (21.0-32.0); CREATININE 1.1 mg/dL (0.70-1.30); Calcium 9.4 mg/dL (8.5-10.1); Chloride 106 mmol/L (98-107); Estimated GFR 69.14 (mL/min/1.73m2); Glucose 233 mg/dL (74-106); Potassium 3.9 mmol/L (3.5-5.1); Sodium 143 mmol/L (136-145)
[2024-03-13 17:45] LABS: Diff Comment PLT Morph Reviewed; Platelet Count 57 10^3/uL (130-400); RBC Morphology Normal
[2024-03-13 17:50] LABS: Bilirubin Negative (Negative); Blood Trace-intact (Negative); Clarity Sl Cloudy (Clear); Glucose >=1000 mg/dL (Negative); Ketones Negative (Negative); Leukocyte Esterase Negative (Negative); Nitrite Negative (Negative); Specific Gravity 1.015 (1.005-1.025)
[2024-03-13] MEDS: Normal Saline 500 ML 1000 ML IV (17:50)
--- NOTE | 2024-03-13 18:00 | RT.EKG_ITS ---
APPROVED REPORT Exam: Resting ECG Reason for Exam: EKG changes Patient Location: E HR:85 bpm ECG Measurements Heart Rate 85 AXIS LA 278 P -49 QRSd 145 QRS -20 QT 423 T 76 QTc 500 Conclusion Sinus PAC LBBB no stemi
--- NOTE | 2024-03-13 18:00 | DI.RAD_ITS ---
Exam(s) XR CHEST 2V PA LATERAL EXAM: XR CHEST 2V PA LATERAL CLINICAL HISTORY: fever. TECHNIQUE: 2D digital imaging was performed. COMPARISON: CR,XR XR CHEST 2V PA LATERAL from 03/12/2024 FINDINGS: 2 views: Left anterior chest wall device again evident. Heart size is upper normal. The mediastinum is not widened. Lungs are clear. No infiltrates nor pleural effusions. Small nodular density in the left lung base is most probably the breast nipple. IMPRESSION: No acute pulmonary findings. DATA REPOSITORY: RADIATION DOSE DELIVERED:
[2024-03-13 18:04] LABS: Bacteria Few HPF (Negative); C & S Indicated? No; Casts Negative LPF (Negative); Crystals Negative HPF (Negative); Epithelial Cells Few HPF (Negative); Mucus Trace (Negative); Other Cells Moderate Yeast (Negative)
[2024-03-13 18:06] LABS: Procalcitonin 0.4 ng/mL
[2024-03-13 18:07] LABS: Ammonia 21 umol/L (11-32)
--- NOTE | 2024-03-13 18:16 | DI.VRAD_ITS ---
PROCEDURE INFORMATION: Exam: XR Chest Exam date and time: 03/13/2024 5:52 PM Age: 79 years old Clinical indication: Other: Fever TECHNIQUE: Imaging protocol: Radiologic exam of the chest. Views: 2 views. COMPARISON: CR XR CHEST 2V PA LATERAL 03/12/2024 8:44 PM FINDINGS: Tubes, catheters and devices: Cardiac monitoring device projects over the left chest wall. Lungs: Mild hyperinflation without airspace consolidation. Pleural spaces: No significant appearing pleural effusion. No pneumothorax. Heart/Mediastinum: Mild cardiomegaly with minimal central vascular prominence, similar to prior. Vasculature: Tortuous aorta. Bones/joints: No acute fracture. IMPRESSION: 1. Mild hyperinflation without airspace consolidation. 2. Mild cardiomegaly with minimal central vascular prominence, similar to prior. Dictated and Authenticated by: Selam Gusman MD. Ordering:OSMANY Arevalo MD
[2024-03-13] MEDS: CEFEPIME 2 GM in Normal Saline 100 ML IVPB (18:18)
--- NOTE | 2024-03-13 19:21 | W.PM.HP.N ---
Date of service: 03/13/24 Time of Service: 19:21 Assessment and Plan Assessment and plan (1) Cellulitis: Start date: 03/13/24 Status: Acute Assessment and plan: This is a 79-year-old gentleman with recurrent hospitalization for multiple problems now been admitted for failure of outpatient treatment with clindamycin and progressive symptoms with right lower extremity cellulitis. He also had a positive blood culture prompting admission because of sepsis criteria though he had no hypotension. He appears to be otherwise stable with his current medical problems including encephalopathy. He is unstable with multiple medical problems and recurrent hospitalizations and close that should be reevaluated. Patient is a full code. Patient will be admitted for IV cefepime pending identity and sensitivities of blood cultures. Urine did not appear to be positive at this hospitalization. Qualifiers: Laterality: right Site of cellulitis: extremity Site of cellulitis of extremity: lower extremity Qualified Code(s): L03.115 - Cellulitis of right lower limb (2) Sepsis syndrome: Start date: 03/13/24 Status: Acute Assessment and plan: Gentle IV hydration and trend labs. Issues clear with appropriate IV antibiotic therapy for gram-negative bacteremia. (3) Gram-negative bacteremia: Start date: 03/13/24 Status: Acute Assessment and plan: Follow-up cultures and sensitivity with converting to oral therapy as appropriate. Patient will be rehabilitated to return home though this is always tenuous. (4) Encephalopathy, hepatic: Status: Chronic Assessment and plan: Continue outpatient treatment and trend labs as needed. (5) Hypertension: Status: Chronic Assessment and plan: Continue outpatient treatment. Qualifiers: Hypertension type: primary hypertension Qualified Code(s): I10 - Essential (primary) hypertension (6) Type 2 diabetes mellitus: Status: Chronic Assessment and plan: Glucometer measurements before meals and bedtime with sliding scale short acting insulin coverage while hospitalized. Hold outpatient medical therapy. 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 Qualifiers: Heart failure chronicity: chronic Heart failure type: diastolic Qualified Code(s): I50.32 - Chronic diastolic (congestive) heart failure (8) PAF (paroxysmal atrial fibrillation): Status: Chronic Assessment and plan: Patient is in sinus rhythm presently but is on Eliquis chronically. He is not on a beta-michael or calcium channel blockers with a history of CAD which is not active. (9) ANETTE (obstructive sleep apnea): Status: Chronic Assessment and plan: Patient has machine at home that does not work and he has not been wearing this recently. He would not be treated with this during his hospital stay unless we can reevaluate and use the machine from the hospital with home settings if these can be discovered. Respiratory therapy can look into this possibility. History of Present Illness History of Present Illness Chief Complaint: Positive blood culture for gram-negative xenia Narrative: This is a 79-year-old male patient returns to the ED because of positive blood cultures for gram-negative rods obtained the day prior to presentation and persistent fever with chills on oral antibiotics. In the ED previously he was imaged for right lower extremity cellulitis with no evidence of fasciitis or emphysema of the soft tissues. He has had multiple admissions for recurrent UTIs and complications of his chronic problem including hepatic encephalopathy which is stable on lactulose, a history of paroxysmal atrial fibrillation with CAD, ANETTE not taking CPAP treatment because of faulty device as well as diabetes with hyperglycemia. He was at his baseline mentation in the ED and lives with his at home. He met sepsis criteria for ED provider with a fever of 101.6 ?F despite treatment with clindamycin, positive lactate and pulse of 91 with no tachypnea and no elevated WBC but source of infection most likely cellulitis with bacteremia. He was not hypotensive. He did not require ICU level care. He was initiated on IV cefepime with clindamycin held. He was given gentle IV hydration for his blood lactate and this was improving. See ED notes from 03/12/2024 and 03/13/2024. The patient remains a full code. Review of Systems Narrative: 13 point review of systems otherwise unrevealing or stable/unobtainable. PFSH All Active Problems (Updated 03/13/24 @ 21:12 by STEFANO Carrasquillo) Sepsis syndrome (Acute) PAF (paroxysmal atrial fibrillation) (Chronic) Gram-negative bacteremia (Acute) Cellulitis (Acute) Lower urinary obstructive symptom (Acute) Encephalopathy, hepatic (Chronic) Anemia of chronic disease (Acute) Thrombocytopenia (Chronic) Ventricular ectopy (Acute) Sinus bradycardia (Acute) Leukocytosis (Acute) Hypertension (Chronic) Elevated lactic acid level (Acute) CHF (congestive heart failure) (Chronic) No-show for appointment (Acute) Left rotator cuff tear (Acute) Acute UTI (urinary tract infection) (Acute) Weakness (Acute) Non-ST elevation NV (NSTEMI) (Acute) Pre-syncope (Acute) Frequent falls (Acute) Orthostatic hypotension (Acute) Chronic atrial fibrillation (Chronic) Type 2 diabetes mellitus (Chronic) Hypokalemia (Acute) Bradycardia (Acute) Multiple falls (Acute) Acute metabolic encephalopathy (Acute) Medication monitoring encounter (Acute) ANETTE (obstructive sleep apnea) (Chronic) Chest pain (Acute) CHF exacerbation (Acute) CHF (congestive heart failure) (Chronic) EF 25%- 2023 Medical History Heart failure with reduced ejection fraction Hypothyroidism Small bowel obstruction Lactic acid acidosis Creatinine elevation Acute UTI Anticoagulated COVID Chronic low back pain Recurrent intestinal obstruction History of colon cancer Palliative care encounter Followed by [facility] Chronic anticoagulation Portal hypertension Cirrhosis TIPs placed (?when, [facility]? 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, Dx [facility] as per pt Non-insulin dependent type 2 diabetes mellitus Incontinence Hypertension Scleral icterus Surgical History S/P TIPS (transjugular intrahepatic portosystemic shunt) H/O left hemicolectomy Colostomy in place Social History Smoking/Tobacco Use Status: Former Tobacco Use Smoking risk assessment performed?: Yes Alcohol Intake: former Drug use: Never Substance use type: does not use Housing: house Do you feel safe at home: Yes Do you feel safe in your relationship?: Yes Additional Social history: Lives with , son, and sick [id number] in [place], moved up from [place] in 2019. [place] . Meds Allergies and Home Medications Allergies Allergy/AdvReac Type Severity Reaction Status Date / Time Penicillins Allergy Mild Itching Unverified 03/12/24 19:02 morphine AdvReac Severe vomiting Unverified 03/12/24 19:02 rinku AdvReac Severe vomiting Unverified 03/12/24 19:02 Home Medications Medication Instructions Recorded Confirmed Type apixaban 5 mg tablet (Eliquis) 5 mg PO BID 11/08/22 03/13/24 History metformin 1,000 mg tablet 1,000 mg PO BID 11/08/22 03/13/24 History pantoprazole 40 mg tablet,delayed 40 mg PO DAILY 11/08/22 03/13/24 History release prazosin 5 mg capsule 10 mg PO QHS 11/08/22 03/13/24 History pregabalin 50 mg capsule 50 mg PO BID 11/08/22 03/13/24 History tamsulosin 0.4 mg capsule 0.4 mg PO DAILY 11/29/22 03/13/24 History nitroglycerin 0.4 mg sublingual 0.4 mg sublingual Q5 MIN PRN X3 02/10/23 03/13/24 Rx tablet PRN #30 tabs ferrous sulfate 325 mg (65 mg 325 mg PO DAILY 03/08/23 03/13/24 History iron) tablet empagliflozin 25 mg tablet 25 mg PO DAILY 04/09/23 03/13/24 History furosemide 20 mg tablet (Lasix) 20 mg PO QAM 04/09/23 03/13/24 History levothyroxine 200 mcg tablet 100 mcg (1/2 x 200 mcg) PO QAM #0 04/10/23 03/13/24 Rx tabs miconazole nitrate 2 % topical 1 applic topical BID PRN 06/16/23 03/13/24 History powder acetaminophen 325 mg capsule 650 mg (2 x 325 mg) PO Q8H PRN #0 06/17/23 03/13/24 Rx (Tylenol) caps rifaximin 550 mg tablet 550 mg PO BID 07/07/23 03/13/24 History docusate sodium 100 mg capsule 100 mg PO BID #60 caps 11/09/23 03/13/24 Rx (Colace) spironolactone 25 mg tablet 25 mg PO DAILY #30 tabs 02/24/24 03/13/24 Rx cholecalciferol (vitamin D3) 25 25 mcg PO DAILY 03/05/24 03/13/24 History mcg (1,000 unit) capsule diclofenac sodium 1 % topical gel 2 g topical QID 03/05/24 03/13/24 History (Arthritis Pain (diclofenac)) losartan 50 mg tablet 50 mg PO DAILY 03/05/24 03/13/24 History rosuvastatin 40 mg tablet (Crestor) 40 mg PO DAILY 03/05/24 03/13/24 History venlafaxine 150 mg 150 mg PO DAILY 03/05/24 03/13/24 History capsule,extended release 24 hr lactulose 20 gram/30 mL oral 20 g (30 mL) PO QD-TID #1,800 mL 03/06/24 03/13/24 Rx solution losartan 25 mg tablet 50 mg (2 x 25 mg) PO BID #0 tabs 03/06/24 03/13/24 Rx melatonin 3 mg tablet 6 mg (2 x 3 mg) PO HS #0 tabs 03/06/24 03/13/24 Rx rosuvastatin 20 mg tablet (Crestor) 40 mg (2 x 20 mg) PO QPM #0 tabs 03/06/24 03/13/24 Rx clindamycin HCl 300 mg capsule 300 mg PO TID 7 days #21 caps 03/12/24 03/13/24 Rx Exam Narrative Exam Narrative: General: Patient appears older than stated age, morbidly obese lying in bed comfortably in no acute distress on BiPAP and sleeping but arousable. HEENT: Normocephalic, coarsened facial features, eyes with pupils equal and react to light symmetrically, extraocular movement intact and sclera anicteric. Oropharynx with dry mucosa and poor dentition with many missing teeth and discolored carious teeth remaining. Neck: Supple without JVD. Back: Kyphotic without CVA tenderness. Bruising over the back. Lungs: Fair aeration and clear to auscultation and percussion. No focalizing rales or rhonchi. Heart: Irregularly irregular rhythm with 3/6 holosystolic murmur over the apex. No gallops or rubs. Abdomen: Obese contour, soft nontender to palpation no focal guarding or tenderness. No rebound. Colostomy in left abdomen. Bowel sounds positive all quadrants. No palpable hepatosplenomegaly. Genitalia/rectal: Exam deferred. Extremities: Nonpitting edema of lower extremities with no clubbing or cyanosis. Fair capillary refill. Erythematous skin over the right lower extremity slightly receding from black marker and mostly over the anterior but circumferential around the leg going to serve as a way of the leg and onto the foot with increased warmth to touch and slight tenderness with no blanching. Skin: Warm, normal color and dry. Actinic changes over sun exposed areas with multiple hyperpigmented seborrheic keratoses especially over back. Rash over right leg. Neuro: Cranial nerves II through XII gross intact, no focal motor deficits or tremor. Psych: Flattened affect with patient sleeping and mood not assessed. Remote and recent memory grossly intact when questioned awake. No abnormal thought processes. Results Imaging Imaging Studies: EXAM: XR ANKLE RT COMPLETE Date of exam: 03/12/2024 CLINICAL HISTORY: fall ankle pain, possible cellulitis. TECHNIQUE: 2D digital imaging was performed. COMPARISON: No exams were available for comparison FINDINGS: 3 views There is soft tissue swelling around the entire ankle. However, there is no evidence of fracture or widening of the ankle mortise. Talar dome unremarkable. Bone density normal. No osseous lesions. IMPRESSION: Soft tissue swelling but no acute osseous findings. EXAM: XR CHEST 2V PA LATERAL Date of exam: 03/12/2024 CLINICAL HISTORY: fall ,ams. TECHNIQUE: 2D digital imaging was performed. COMPARISON: CR,XR XR PORTABLE CHEST AP from 02/22/2024 FINDINGS: 2 views: Left anterior chest wall cardiac detect device Heart size upper normal. Mediastinum not widened. Lungs are clear. No infiltrates nor pleural effusions. IMPRESSION: No acute pulmonary findings. Labs 03/14/24 06:58 03/14/24 06:58 Labs: Laboratory Results - last 24 hr 03/13/24 03/13/24 03/13/24 17:13 17:30 17:43 WBC 5.02 RBC 4.10 L Hgb 12.5 L Hct 37.5 L MCV 92 MCH 30.5 MCHC 33.3 RDW 15.6 H Plt Count 57 L MPV 11.7 H Immature Gran % 0.4 Neutrophils % 80.8 Lymphocytes % 6.6 Monocytes % 10.4 Eosinophils % 1.4 Basophils % 0.4 Nucleated RBC % 0.0 Absolute Neutrophils 4.06 Absolute Lymphocytes 0.33 L Absolute Monocytes 0.52 Absolute Eosinophils 0.07 Absolute Basophils 0.02 RBC Morphology Normal PT 12.2 H INR 1.2 H VBG Lactate 3.2 H* Sodium 143 Potassium 3.9 Chloride 106 Carbon Dioxide 24.4 Anion Gap 12.6 H BUN 15 Creatinine 1.1 Est GFR (CKD-EPI 2020) 69.14 Glucose 233 H Calcium 9.4 Total Bilirubin 2.3 H AST 42 H ALT 32 Alkaline Phosphatase 142 H Ammonia 21 C-Reactive Protein 9.46 H Total Protein 7.0 Albumin 3.0 L Procalcitonin 0.4 Urine Color Yellow Urine Clarity Sl Cloudy Urine pH 6.0 Ur Specific [place] 1.015 Urine Protein 30 H Urine Ketones Negative Urine Blood Trace-intact H Urine Nitrite Negative Urine Bilirubin Negative Urine Urobilinogen 1.0 H Ur Leukocyte Esterase Negative Urine RBC 5-10 H Urine WBC 3-5 Ur Epithelial Cells Few Urine Crystals Negative Urine Bacteria Few Urine Casts Negative Urine Mucus Trace Urine Other Moderate Yeast Ur Culture Indicated? No Urine Glucose >=1000 H Last Vital Signs Temp 37.2 C 03/13/24 16:11 Pulse 91 H 03/13/24 18:52 Resp 21 03/13/24 18:52 BP 200/69 H 03/13/24 18:52 Pulse Ox 97 03/13/24 16:11 Time Spent Time spent with Patient: >75 minutes Time was spent: preparing to see the patient(eg.review tests), obtaining and/or reviewing separately otained hiistory, ordering medications,tests, procedures, referring, communicating with other health director of critical care, indepentently interpreting results and care coordination
[2024-03-13 20:24] LABS: NT-proBNP 1327 pg/mL (<300)
[2024-03-13 20:27] LABS: TSH (W/Ref FT4) 4.62 uIU/mL (0.36-3.74)
[2024-03-13 20:43] LABS: FREE T4 1.39 ng/dL (0.76-1.46)
--- NOTE | 2024-03-13 21:06 | W.ED.GENAD ---
Discharge Plan Disposition Patient Disposition: Admit to [facility] Condition: Serious Discharge Details Clinical Impression: Gram-negative bacteremia, Cellulitis, Sepsis syndrome, Weakness, Elevated lactic acid level Admit Date/Time: 03/13/24 19:28 Admit Provider: Phoenix Jim Attending Provider: Phoenix Jim Primary Care Provider: Maryann Whitt ED Provider: Irina Petersen Discharge Data Discharge Date/Time-TO BE ENTERED AT DEPARTURE: 03/13/24 20:58 HPI General Date/Time Provider Initiated Documentation: 03/13/24 16:08. HPI Narrative: This complex 79-year-old male with history of hepatic encephalopathy thrombocytopenia, cirrhosis, CHF coronary artery disease, urinary tract infection presents with report of positive blood culture with recent treatment with clindamycin for a right lower extremity cellulitis. Patient was called today to return with positive blood culture result. On arrival, patient is alert and at his baseline reportedly. He has redness to his right lower extremity and he is also complaining of some left-sided dental pain that started this afternoon. Denies any difficulty swallowing or shortness of breath. He states he had chills, unknown as to whether or not he had a fever. He was told he had a fever yesterday per patient. He denies any urinary complaints or chest pain or shortness of breath. Related Data Home Medications Medication Instructions Recorded Confirmed apixaban 5 mg tablet (Eliquis) 5 mg PO BID 11/08/22 03/13/24 metformin 1,000 mg tablet 1,000 mg PO BID 11/08/22 03/13/24 pantoprazole 40 mg tablet,delayed 40 mg PO DAILY 11/08/22 03/13/24 release prazosin 5 mg capsule 10 mg PO QHS 11/08/22 03/13/24 pregabalin 50 mg capsule 50 mg PO BID 11/08/22 03/13/24 tamsulosin 0.4 mg capsule 0.4 mg PO DAILY 11/29/22 03/13/24 nitroglycerin 0.4 mg sublingual 0.4 mg sublingual Q5 MIN PRN X3 02/10/23 03/13/24 tablet PRN #30 tabs ferrous sulfate 325 mg (65 mg 325 mg PO DAILY 03/08/23 03/13/24 iron) tablet empagliflozin 25 mg tablet 25 mg PO DAILY 04/09/23 03/13/24 furosemide 20 mg tablet (Lasix) 20 mg PO QAM 04/09/23 03/13/24 levothyroxine 200 mcg tablet 100 mcg (1/2 x 200 mcg) PO QAM #0 04/10/23 03/13/24 tabs miconazole nitrate 2 % topical 1 applic topical BID PRN 06/16/23 03/13/24 powder acetaminophen 325 mg capsule 650 mg (2 x 325 mg) PO Q8H PRN #0 06/17/23 03/13/24 (Tylenol) caps rifaximin 550 mg tablet 550 mg PO BID 07/07/23 03/13/24 docusate sodium 100 mg capsule 100 mg PO BID #60 caps 11/09/23 03/13/24 (Colace) spironolactone 25 mg tablet 25 mg PO DAILY #30 tabs 02/24/24 03/13/24 cholecalciferol (vitamin D3) 25 25 mcg PO DAILY 03/05/24 03/13/24 mcg (1,000 unit) capsule diclofenac sodium 1 % topical gel 2 g topical QID 03/05/24 03/13/24 (Arthritis Pain (diclofenac)) losartan 50 mg tablet 50 mg PO DAILY 03/05/24 03/13/24 rosuvastatin 40 mg tablet (Crestor) 40 mg PO DAILY 03/05/24 03/13/24 venlafaxine 150 mg 150 mg PO DAILY 03/05/24 03/13/24 capsule,extended release 24 hr lactulose 20 gram/30 mL oral 20 g (30 mL) PO QD-TID #1,800 mL 03/06/24 03/13/24 solution losartan 25 mg tablet 50 mg (2 x 25 mg) PO BID #0 tabs 03/06/24 03/13/24 melatonin 3 mg tablet 6 mg (2 x 3 mg) PO HS #0 tabs 03/06/24 03/13/24 rosuvastatin 20 mg tablet (Crestor) 40 mg (2 x 20 mg) PO QPM #0 tabs 03/06/24 03/13/24 clindamycin HCl 300 mg capsule 300 mg PO TID 7 days #21 caps 03/12/24 03/13/24 Previous Rx's Medication Instructions Recorded nitroglycerin 0.4 mg sublingual 0.4 mg sublingual Q5 MIN PRN X3 02/10/23 tablet PRN #30 tabs levothyroxine 200 mcg tablet 100 mcg (1/2 x 200 mcg) PO QAM #0 04/10/23 tabs acetaminophen 325 mg capsule 650 mg (2 x 325 mg) PO Q8H PRN #0 06/17/23 (Tylenol) caps docusate sodium 100 mg capsule 100 mg PO BID #60 caps 11/09/23 (Colace) spironolactone 25 mg tablet 25 mg PO DAILY #30 tabs 02/24/24 lactulose 20 gram/30 mL oral 20 g (30 mL) PO QD-TID #1,800 mL 03/06/24 solution losartan 25 mg tablet 50 mg (2 x 25 mg) PO BID #0 tabs 03/06/24 melatonin 3 mg tablet 6 mg (2 x 3 mg) PO HS #0 tabs 03/06/24 rosuvastatin 20 mg tablet (Crestor) 40 mg (2 x 20 mg) PO QPM #0 tabs 03/06/24 clindamycin HCl 300 mg capsule 300 mg PO TID 7 days #21 caps 03/12/24 Allergies Allergy/AdvReac Type Severity Reaction Status Date / Time Penicillins Allergy Mild Itching Unverified 03/12/24 19:02 morphine AdvReac Severe vomiting Unverified 03/12/24 19:02 mussels AdvReac Severe vomiting Unverified 03/12/24 19:02 General Stated Complaint: GenMedical ANNA: 3 Exam Narrative Exam Narrative: Alert and oriented times three 79-year-old gentleman appears chronically ill, pupils equal round reactive to light and accommodation without jaundice or icterus, lungs clear to auscultation, cardiac rhythm regular, no abdominal tenderness, colostomy bag in place Skin with cellulitis noted to right lower extremity, distal pulses intact, sensation intact distally, no open wounds visualized, alert and oriented, ambulatory with steady gait into the emergency department., No crepitus to the area of suspected cellulitis, approximately 10 inches of cellulitis which is circumferential, no lymphangitis, no evidence of ankle involvement, able to range ankle without difficulty Course Vital Signs Vital signs: Vital Signs Temperature 37.2 C 03/13/24 16:11 Pulse 90 03/13/24 16:11 Respiratory Rate 15 03/13/24 16:11 Blood Pressure 202/70 H 03/13/24 16:11 Pulse Oximetry 97 03/13/24 16:11 Temperature 37.5 C 03/13/24 20:47 Temperature Source Tympanic 03/13/24 20:47 Pulse 84 03/13/24 20:47 Pulse 84 03/13/24 20:20 Respiratory Rate 16 03/13/24 20:47 Respiratory Effort Normal, Non-Labored 03/13/24 16:19 Blood Pressure 156/65 H 03/13/24 20:47 Blood Pressure Mean 106 03/13/24 20:16 Blood Pressure Position Sitting 03/13/24 16:11 Pulse Oximetry 96 03/13/24 20:47 Oxygen Delivery Method Room Air 03/13/24 20:47 Oxygen Flow Rate 0 03/13/24 20:47 Pain Level 0 03/13/24 20:47 Lab/Test Results Lab/Test Results: 03/13/24 17:43 Blood Blood Culture - Pending 03/13/24 17:13 Blood Blood Culture - Pending Laboratory Tests Range/Units 03/13/24 03/13/24 03/13/24 17:13 17:30 17:43 WBC (4.4-10.8) 10^3/uL 5.02 RBC (4.36-5.78) 10^6/uL 4.10 L Hgb (13.5-17.5) g/dL 12.5 L Hct (40.0-50.0) % 37.5 L MCV (80-95) fL 92 MCH (27.0-33.0) pg 30.5 MCHC (32.0-36.0) % 33.3 RDW (11.8-14.1) % 15.6 H Plt Count (130-400) 10^3/uL 57 L MPV (8.0-11.0) fL 11.7 H Immature Gran % % 0.4 Neutrophils % % 80.8 Lymphocytes % % 6.6 Monocytes % % 10.4 Eosinophils % % 1.4 Basophils % % 0.4 Nucleated RBC % (0.0-0.3) % 0.0 Absolute Neutrophils (1.2-6.7) 10^3/uL 4.06 Absolute Lymphocytes (1.2-3.4) 10^3/uL 0.33 L Absolute Monocytes (0.1-0.8) 10^3/uL 0.52 Absolute Eosinophils (0.0-0.7) 10^3/uL 0.07 Absolute Basophils (0.0-0.2) 10^3/uL 0.02 RBC Morphology Normal PT (9.1-11.1) sec 12.2 H INR (0.9-1.1) 1.2 H VBG Lactate (0.6-1.4) mmol/L 3.2 H* Sodium (136-145) mmol/L 143 Potassium (3.5-5.1) mmol/L 3.9 Chloride (98-107) mmol/L 106 Carbon Dioxide (21.0-32.0) mmol/L 24.4 Anion Gap (3-11) mmol/L 12.6 H BUN (7-18) mg/dL 15 Creatinine (0.70-1.30) mg/dL 1.1 Est GFR (CKD-EPI 2020) (mL/min/1.73m2) 69.14 Glucose (74-106) mg/dL 233 H Calcium (8.5-10.1) mg/dL 9.4 Total Bilirubin (0.2-1.0) mg/dL 2.3 H AST (15-37) U/L 42 H ALT (16-63) U/L 32 Alkaline Phosphatase (46-116) U/L 142 H Ammonia (11-32) umol/L 21 C-Reactive Protein (<or=0.5) mg/dL 9.46 H NT-Pro-B Natriuret Pep (<300) pg/mL 1327 H Total Protein (6.4-8.2) g/dL 7.0 Albumin (3.4-5.0) g/dL 3.0 L Procalcitonin ng/mL 0.4 TSH (0.36-3.74) uIU/mL 4.62 H Free T4 (0.76-1.46) ng/dL 1.39 Urine Color (Yellow) Yellow Urine Clarity (Clear) Sl Cloudy Urine pH (5-8) 6.0 Ur Specific [place] (1.005-1.025) 1.015 Urine Protein (Neg-Trace) mg/dL 30 H Urine Ketones (Negative) mg/dL Negative Urine Blood (Negative) Trace-intact H Urine Nitrite (Negative) Negative Urine Bilirubin (Negative) Negative Urine Urobilinogen (Up to 0.2) mg/dL 1.0 H Ur Leukocyte Esterase (Negative) Negative Urine RBC (0-2) HPF 5-10 H Urine WBC (0-5) HPF 3-5 Ur Epithelial Cells (Negative) HPF Few Urine Crystals (Negative) HPF Negative Urine Bacteria (Negative) HPF Few Urine Casts (Negative) LPF Negative Urine Mucus (Negative) Trace Urine Other (Negative) Moderate Yeast Ur Culture Indicated? No Urine Glucose (Negative) mg/dL >=1000 H Medical Decision Making 79-year-old male presenting with likely gram-negative bacteremia, lactate of 3.2, pulse of 91, temperature of 101.6 orally, no leukocytosis, glucose 233, bilirubin 2.3, CRP 9.46 urinalysis without evidence of infection, chest x-ray within normal limits. Patient was a started on cefepime to cover gram-negative bacteria, repeat blood cultures were obtained, repeat lactate improving, received 1 L saline without any evidence of pulmonary edema on assessment. Remained on telemetry monitoring. Patient will need admission to this facility. I spent approximately 10 minutes reviewing yesterday's assessment in the emergency department and imaging. Ankle x-ray was ordered yesterday which showed tib-fib and there is no evidence of subcutaneous emphysema. Vitals have remained stable, patient's been mildly hypertensive during this encounter. Patient will need admission to the hospital with gram-negative bacteremia in the presence of cellulitis and he is agreeable to staying in the hospital at this time. Repeat ammonia from yesterday 21 which is reassuring. Quality:SDOH Health Related Social Needs: Health related social needs transpo insecurity Critical Care Time Critical Care Time Attestation: Approximately 45 minutes of critical care time secondary to acute bacteremia in the presence of cellulitis requiring IV antibiotics, fluid resuscitation, telemetry monitoring, imaging review diagnostic lab review with admission to the hospital [facility] All Active Problems (Updated 03/13/24 @ 21:12 by STEFANO Carrasquillo) Sepsis syndrome (Acute) PAF (paroxysmal atrial fibrillation) (Chronic) Gram-negative bacteremia (Acute) Cellulitis (Acute) Lower urinary obstructive symptom (Acute) Encephalopathy, hepatic (Chronic) Anemia of chronic disease (Acute) Thrombocytopenia (Chronic) Ventricular ectopy (Acute) Sinus bradycardia (Acute) Leukocytosis (Acute) Hypertension (Chronic) Elevated lactic acid level (Acute) CHF (congestive heart failure) (Chronic) No-show for appointment (Acute) Left rotator cuff tear (Acute) Acute UTI (urinary tract infection) (Acute) Weakness (Acute) Non-ST elevation MS (NSTEMI) (Acute) Pre-syncope (Acute) Frequent falls (Acute) Orthostatic hypotension (Acute) Chronic atrial fibrillation (Chronic) Type 2 diabetes mellitus (Chronic) Hypokalemia (Acute) Bradycardia (Acute) Multiple falls (Acute) Acute metabolic encephalopathy (Acute) Medication monitoring encounter (Acute) ANETTE (obstructive sleep apnea) (Chronic) Chest pain (Acute) CHF exacerbation (Acute) CHF (congestive heart failure) (Chronic) EF 25%- 2023 Medical History Heart failure with reduced ejection fraction Hypothyroidism Small bowel obstruction Lactic acid acidosis Creatinine elevation Acute UTI Anticoagulated COVID Chronic low back pain Recurrent intestinal obstruction History of colon cancer Palliative care encounter Followed by LTAC[facility] Chronic anticoagulation Portal hypertension Cirrhosis TIPs placed (?when, [facility]? 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, Dx [facility] as per pt Non-insulin dependent type 2 diabetes mellitus Incontinence Hypertension Scleral icterus Surgical History S/P TIPS (transjugular intrahepatic portosystemic shunt) H/O left hemicolectomy Colostomy in place Social History Smoking/Tobacco Use Status: Former Tobacco Use Smoking risk assessment performed?: Yes Alcohol Intake: former Drug use: Never Substance use type: does not use Housing: house Do you feel safe at home: Yes Do you feel safe in your relationship?: Yes Additional Social history: Lives with , son, and sick [id number] in [place], moved up from [place] in 2020. [place] .
[2024-03-13 21:27] LABS: HCT 32.5 % (40.0-50.0); HGB 11.3 g/dL (13.5-17.5); MCH 30.7 pg (27.0-33.0); MCHC 34.8 % (32.0-36.0); MCV 88 fL (80-95); RBC 3.68 10^6/uL (4.36-5.78); RDW 15.4 % (11.8-14.1); RDW-SD 50.3 fL; WBC 5.25 10^3/uL (4.4-10.8)
[2024-03-13] MEDS: Prazosin 5 MG CAP 10 MG PO (21:33)
[2024-03-13] MEDS: Rosuvastatin 20 MG TAB 40 MG PO (21:34)
[2024-03-13] MEDS: Melatonin 3 MG TAB 6 MG PO (21:34)
[2024-03-13] MEDS: Docusate Sodium 100 MG CAP PO (21:35)
[2024-03-13] MEDS: Losartan 25 MG TAB 50 MG PO (21:35)
[2024-03-13] MEDS: Rifaximin 550 MG TAB PO (21:35)
[2024-03-13] MEDS: Apixaban 5 MG TAB PO (21:35)
[2024-03-13] MEDS: Pregabalin 50 MG CAP PO (21:35)
[2024-03-13] MEDS: Normal Saline Flush 10 ML SYR IVP (21:38)
--- NOTE | 2024-03-13 21:40 | RESPIRATORY ---
RT spoke with patient regarding ANETTE daignosis. Pt. states he uses CPAP machine at home and has minimal issues with his mask however it works fine. Pt. has not brought his CPAP machine here tonight and does not know either CPAP mode or BiPAP mode, however he tells it gives a constant pressure of 10 cm H2O which I believe it's a CPAP mode. Pt. accepted to use hospital's BiPAP machine tonight or until his HU will be brought by his family member. Will initiate CPAP of 10 cm H2O then will adjust settings from there on the basis of Pt's tolerance or request. Pt. does not use any supplement of oxygen.
[2024-03-13 21:43] LABS: Platelet Count 50 10^3/uL (130-400)
[2024-03-13 22:25] LABS: Lactate 2.2 mmol/L (0.6-1.4)
[2024-03-13] MEDS: Insulin Aspart 300 UNITS/3 ML PEN SC (22:52)
[2024-03-14] VITALS (8 sets, daily range): BP systolic 121–163; BP diastolic 62–74; PULSE 60–84; RESP 16–20; TEMP 36–37.1; O2SAT 92–95
[2024-03-14] MEDS: CEFEPIME 1 GM in Normal Saline 50 ML IVPB ×4 (00:46→17:48)
--- NOTE | 2024-03-14 01:22 | NUR.NOTE ---
Cefepime 1g Administration IV Tubing Manufacture Default. Upon coming in to round on the patient who was resting in bed in the supine position. I did hang his midnight dose of cefepime 1g IV, momentarily upon hanging medication, I assisted the patient to an in bed brief change. Upon completing the brief change i attended to the IV pump for an occlusion alarm. Brief changed took approximately 10 min with ariana care and barrrier cream. Upon attending to the IV pump alarm, I noticed a drip of IV fluid at the first bifurcation on the SANTANA IV Primary Tubing. Upon examination of the connections, the Tubing Connections were intact and secure. This IV drip did appear to be just inferior to the first bifircuation. NOC charge nurse notified, notified. The dose is a 50ml dose at 100ml an hour. I estimate the patient only received a partial dose of the 1g cefepime. Pharmacy notified for appropriate re timing. Pt remains lying in supine resting in bed. Nursing Note:
[2024-03-14] MEDS: Levothyroxine 200 MCG TAB 100 MCG PO (06:03)
[2024-03-14 07:07] LABS: Lactate 1.2 mmol/L (0.6-1.4)
[2024-03-14 07:11] LABS: HCT 33.2 % (40.0-50.0); MCH 30.2 pg (27.0-33.0); MCHC 33.1 % (32.0-36.0); MCV 91 fL (80-95); MPV 10.7 fL (8.0-11.0); RBC 3.64 10^6/uL (4.36-5.78); RDW 15.6 % (11.8-14.1); RDW-SD 52.2 fL; WBC 3.83 10^3/uL (4.4-10.8)
[2024-03-14 07:18] LABS: INR 1.3 (0.9-1.1); Prothrombin Time 12.4 sec (9.1-11.1)
[2024-03-14 07:36] LABS: ALT 22 U/L (16-63); AST 32 U/L (15-37); Albumin 2.4 g/dL (3.4-5.0); Alkaline Phosphatase 114 U/L (46-116); Anion Gap 7.8 mmol/L (3-11); BUN 15 mg/dL (7-18); Bilirubin, Total 2.1 mg/dL (0.2-1.0); CO2 24.2 mmol/L (21.0-32.0); CREATININE 0.9 mg/dL (0.70-1.30); Calcium 8.4 mg/dL (8.5-10.1); Chloride 108 mmol/L (98-107); Estimated GFR 87.96 (mL/min/1.73m2); Glucose 122 mg/dL (74-106); Magnesium 1.8 mg/dL (1.8-2.4); Potassium 3.6 mmol/L (3.5-5.1); Sodium 140 mmol/L (136-145); Total Protein 5.8 g/dL (6.4-8.2)
[2024-03-14 07:38] LABS: Platelet Count 56 10^3/uL (130-400)
[2024-03-14] MEDS: Pregabalin 50 MG CAP PO ×2 (08:13→19:58)
[2024-03-14] MEDS: Rifaximin 550 MG TAB PO ×2 (08:14→19:55)
[2024-03-14] MEDS: Losartan 25 MG TAB 50 MG PO ×2 (08:15→19:57)
[2024-03-14] MEDS: Cholecalciferol (Vitamin D3) 1,000 UNIT TAB 1000 UNITS PO (08:15)
[2024-03-14] MEDS: Pantoprazole 40 MG TABCR PO (08:15)
[2024-03-14] MEDS: Spironolactone 25 MG TAB PO (08:16)
[2024-03-14] MEDS: Apixaban 5 MG TAB PO ×2 (08:16→19:58)
[2024-03-14] MEDS: Ferrous Sulfate 325 MG TAB PO (08:16)
[2024-03-14] MEDS: Furosemide 20 MG TAB PO (08:16)
[2024-03-14] MEDS: Tamsulosin 0.4 MG CAPCR PO (08:16)
[2024-03-14] MEDS: Venlafaxine 150 MG CAPCR PO (08:17)
[2024-03-14] MEDS: Empaglifozin 25 MG TAB PO (08:17)
[2024-03-14] MEDS: Docusate Sodium 100 MG CAP PO ×2 (08:17→19:58)
[2024-03-14] MEDS: Normal Saline Flush 10 ML SYR IVP ×3 (08:18→20:00)
[2024-03-14] MEDS: Diclofenac 1% Gel 100 GM TUBE TP ×4 (09:04→20:01)
--- NOTE | 2024-03-14 09:47 | INITIAL_ITS ---
Date of service: 03/14/24 Time of Service: 09:47 Care Management Initial Assmt Initial Assessment REASON FOR HOSPITALIZATION:: hepatic encephalopathy PREVIOUS FUNCTIONAL STATUS/SOCIAL/FAMILY SUPPORTS:: Merrill lives in a single family home in [place] with his Cely and his son Scott who is disabled. 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 He is an [employer] and is 100% service connected with the [place]. Merrill occasionally uses a walker for ambulatory assistance and is independent with his ADLs. He also owns a scooter which he uses outside, weather permitting. Merrill receives home health services for RN and PT through the [place] CURRENT FUNCTIONAL STATUS:: Merrill was sitting up in a chair when CM met with him. He engaged easily with CM, well known to him from previous hospitalizations. Merrill informed CM that he is having a great deal of difficulty swallowing secondary to pain. He has white patches on his tongue that appear to extend into his throat. His provider has ordered antifungal medication and lidocaine to address the problem. Merrill has one positive blood culture that was drawn 2 days ago prior to admission. It is growing gram negative rods. No clear source has been identified, however he will likely need a course of IV antibiotics. Once the organism has been speciated and susceptibilities are known, the antibiotic course can be clarified. He is currently receiving Cefepime. ADVANCE DIRECTIVES:: states he has ADs but not on file at [facility] Has patient been provided with info about the portal/API?: Yes Did the patient sign up for the portal?: No CODE STATUS:: Full Code INSURANCE COVERAGE / FINANCIAL ISSUES:: [place] CURRENT HOME/COMMUNITY SERVICES/EQUIPMENT:: home health nursing and PT, uses a walker and scooter PRIMARY CARE PHYSICIAN:: Maryann Whitt - [place] POTENTIAL DISCHARGE NEEDS:: follow up with PCP and plan of care PATIENT/FAMILY EDUCATION NEEDS:: Review of discharge instructions, activity, limitations, follow up plan, discuss [employer] Me [employer] TRANSPORTATION:: via private vehicle with family PLAN:: Anticipate Merrill will be discharged home when medically cleared with a resumption of home health PT and nursing. He will follow up with his providers at the [place] and will transport with family. PFSH All Active Problems (Updated 03/14/24 @ 16:06 by Bella Santo NP) Oral candidiasis (Acute) Sepsis syndrome (Acute) PAF (paroxysmal atrial fibrillation) (Chronic) Gram-negative bacteremia (Acute) Cellulitis (Acute) Lower urinary obstructive symptom (Acute) Encephalopathy, hepatic (Chronic) Anemia of chronic disease (Acute) Thrombocytopenia (Chronic) Ventricular ectopy (Acute) Sinus bradycardia (Acute) Leukocytosis (Acute) Hypertension (Chronic) Elevated lactic acid level (Acute) CHF (congestive heart failure) (Chronic) No-show for appointment (Acute) Left rotator cuff tear (Acute) Acute UTI (urinary tract infection) (Acute) Weakness (Acute) Non-ST elevation CT (NSTEMI) (Acute) Pre-syncope (Acute) Frequent falls (Acute) Orthostatic hypotension (Acute) Chronic atrial fibrillation (Chronic) Type 2 diabetes mellitus (Chronic) Hypokalemia (Acute) Bradycardia (Acute) Multiple falls (Acute) Acute metabolic encephalopathy (Acute) Medication monitoring encounter (Acute) ANETTE (obstructive sleep apnea) (Chronic) Chest pain (Acute) CHF exacerbation (Acute) CHF (congestive heart failure) (Chronic) EF 25%- 2023 Medical History Heart failure with reduced ejection fraction Hypothyroidism Small bowel obstruction Lactic acid acidosis Creatinine elevation Acute UTI Anticoagulated COVID Chronic low back pain Recurrent intestinal obstruction History of colon cancer Palliative care encounter Followed by [facility] Chronic anticoagulation Portal hypertension Cirrhosis TIPs placed (?when, [facility]? 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, Dx [facility] as per pt Non-insulin dependent type 2 diabetes mellitus Incontinence Hypertension Scleral icterus Surgical History S/P TIPS (transjugular intrahepatic portosystemic shunt) H/O left hemicolectomy Colostomy in place Social History Smoking/Tobacco Use Status: Former Tobacco Use Smoking risk assessment performed?: Yes Alcohol Intake: former Drug use: Never Substance use type: does not use Housing: house Do you feel safe at home: Yes Do you feel safe in your relationship?: Yes Additional Social history: Lives with , son, and sick [id number] in [place], moved up from [place] in 2019. [place] [employer]. SDOH(Care Management) Screening Will the Patient Participate in the Screening?: Yes Do you worry about having a steady place to live?: no Problems where you live: no known problems In the past 12 months, have you had to go without electric, gas, oil or water in your home?: no Have you or anyone in your house had to go without enough food to eat?: no Has lack of transportation kept you from medical appointments or from doing things needed for daily living?: no Has anyone in your support network made you feel unsafe for any reason?: no
[2024-03-14] MEDS: Acetaminophen 325 MG TAB PO ×2 (10:48→15:37)
[2024-03-14] MEDS: Insulin Aspart 300 UNITS/3 ML PEN SC ×3 (11:46→21:44)
--- NOTE | 2024-03-14 16:05 | PGE_ITS ---
Date of Service Date of service: 03/14/24 Time of Service: 16:05 Assessment and Plan Assessment and plan (1) Oral candidiasis: Status: Acute (2) Cellulitis: Status: Acute Qualifiers: Laterality: right Site of cellulitis: extremity Site of cellulitis of extremity: lower extremity Qualified Code(s): L03.115 - Cellulitis of right lower limb (3) Gram-negative bacteremia: Status: Acute (4) Encephalopathy, hepatic: Status: Chronic Assessment and plan: Continue outpatient treatment and trend labs as needed. (5) Hypertension: Status: Chronic Assessment and plan: Continue outpatient treatment. Qualifiers: Hypertension type: primary hypertension Qualified Code(s): I10 - Essential (primary) hypertension (6) Type 2 diabetes mellitus: Status: Chronic Assessment and plan: Glucometer measurements before meals and bedtime with sliding scale short acting insulin coverage while hospitalized. Hold outpatient medical therapy. 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 Qualifiers: Heart failure chronicity: chronic Heart failure type: diastolic Qualified Code(s): I50.32 - Chronic diastolic (congestive) heart failure (8) PAF (paroxysmal atrial fibrillation): Status: Chronic Assessment and plan: Patient is in sinus rhythm presently but is on Eliquis chronically. He is not on a beta-michael or calcium channel blockers with a history of CAD which is not active. (9) ANETTE (obstructive sleep apnea): Status: Chronic Assessment and plan: Patient has machine at home that does not work and he has not been wearing this recently. He would not be treated with this during his hospital stay unless we can reevaluate and use the machine from the hospital with home settings if these can be discovered. Respiratory therapy can look into this possibility. Subjective Subjective Patient reports: no new complaints, tolerating liquids well, tolerating a regular diet and afebrile Interval history since last seen: Marked improvement in erythema to right lower extremity. Complaining of sore throat and mouth pain on the left able to tolerate oral fluids and solids well Exam Narrative Exam Narrative: Chronically ill-appearing male of stated age no acute distress head is at raumatic eyes nonicteric noninjected Posterior pharynx clear with white patchy coat on left posterior pharynx, and tongue Cardiovascular regular rate and rhythm respirations even and unlabored breath sounds diminished in the bases abdomen obese soft nontender full range of motion to extremities. Trace edema to left greater than right lower extremity erythema receding well within the skin markings Neurologic awake alert oriented no focal deficits Psychiatric normal mood and affect Objective Last Vital Signs Temp 36.3 C L 03/14/24 15:33 Pulse 62 03/14/24 15:33 Resp 16 03/14/24 15:33 BP 146/69 H 03/14/24 15:33 Pulse Ox 94 03/14/24 15:33 Laboratory Results - last 24 hr 03/13/24 03/13/24 03/13/24 17:13 17:30 17:43 WBC 5.02 RBC 4.10 L Hgb 12.5 L Hct 37.5 L MCV 92 MCH 30.5 MCHC 33.3 RDW 15.6 H Plt Count 57 L MPV 11.7 H Immature Gran % 0.4 Neutrophils % 80.8 Lymphocytes % 6.6 Monocytes % 10.4 Eosinophils % 1.4 Basophils % 0.4 Nucleated RBC % 0.0 Absolute Neutrophils 4.06 Absolute Lymphocytes 0.33 L Absolute Monocytes 0.52 Absolute Eosinophils 0.07 Absolute Basophils 0.02 RBC Morphology Normal PT 12.2 H INR 1.2 H VBG Lactate 3.2 H* Sodium 143 Potassium 3.9 Chloride 106 Carbon Dioxide 24.4 Anion Gap 12.6 H BUN 15 Creatinine 1.1 Est GFR (CKD-EPI 2020) 69.14 Glucose 233 H Calcium 9.4 Magnesium Total Bilirubin 2.3 H AST 42 H ALT 32 Alkaline Phosphatase 142 H Ammonia 21 C-Reactive Protein 9.46 H NT-Pro-B Natriuret Pep 1327 H Total Protein 7.0 Albumin 3.0 L Procalcitonin 0.4 TSH 4.62 H Free T4 1.39 Urine Color Yellow Urine Clarity Sl Cloudy Urine pH 6.0 Ur Specific [place] 1.015 Urine Protein 30 H Urine Ketones Negative Urine Blood Trace-intact H Urine Nitrite Negative Urine Bilirubin Negative Urine Urobilinogen 1.0 H Ur Leukocyte Esterase Negative Urine RBC 5-10 H Urine WBC 3-5 Ur Epithelial Cells Few Urine Crystals Negative Urine Bacteria Few Urine Casts Negative Urine Mucus Trace Urine Other Moderate Yeast Ur Culture Indicated? No Urine Glucose >=1000 H 03/13/24 03/13/24 03/13/24 21:13 22:15 22:48 WBC 5.25 RBC 3.68 L Hgb 11.3 L Hct 32.5 L MCV 88 D MCH 30.7 MCHC 34.8 RDW 15.4 H Plt Count 50 L MPV Immature Gran % Neutrophils % Lymphocytes % Monocytes % Eosinophils % Basophils % Nucleated RBC % Absolute Neutrophils Absolute Lymphocytes Absolute Monocytes Absolute Eosinophils Absolute Basophils RBC Morphology PT INR VBG Lactate 2.2 H* Cancelled Sodium Potassium Chloride Carbon Dioxide Anion Gap BUN Creatinine Est GFR (CKD-EPI 2020) Glucose Calcium Magnesium Total Bilirubin AST ALT Alkaline Phosphatase Ammonia C-Reactive Protein NT-Pro-B Natriuret Pep Total Protein Albumin Procalcitonin TSH Free T4 Urine Color Urine Clarity Urine pH Ur Specific [place] Urine Protein Urine Ketones Urine Blood Urine Nitrite Urine Bilirubin Urine Urobilinogen Ur Leukocyte Esterase Urine RBC Urine WBC Ur Epithelial Cells Urine Crystals Urine Bacteria Urine Casts Urine Mucus Urine Other Ur Culture Indicated? Urine Glucose 03/14/24 06:58 WBC 3.83 L RBC 3.64 L Hgb 11.0 L Hct 33.2 L MCV 91 MCH 30.2 MCHC 33.1 RDW 15.6 H Plt Count 56 L MPV 10.7 Immature Gran % Neutrophils % Lymphocytes % Monocytes % Eosinophils % Basophils % Nucleated RBC % Absolute Neutrophils Absolute Lymphocytes Absolute Monocytes Absolute Eosinophils Absolute Basophils RBC Morphology PT 12.4 H INR 1.3 H VBG Lactate 1.2 Sodium 140 Potassium 3.6 Chloride 108 H Carbon Dioxide 24.2 Anion Gap 7.8 BUN 15 Creatinine 0.9 Est GFR (CKD-EPI 2020) 87.96 Glucose 122 H Calcium 8.4 L Magnesium 1.8 Total Bilirubin 2.1 H AST 32 ALT 22 Alkaline Phosphatase 114 Ammonia C-Reactive Protein NT-Pro-B Natriuret Pep Total Protein 5.8 L Albumin 2.4 L Procalcitonin TSH Free T4 Urine Color Urine Clarity Urine pH Ur Specific [place] Urine Protein Urine Ketones Urine Blood Urine Nitrite Urine Bilirubin Urine Urobilinogen Ur Leukocyte Esterase Urine RBC Urine WBC Ur Epithelial Cells Urine Crystals Urine Bacteria Urine Casts Urine Mucus Urine Other Ur Culture Indicated? Urine Glucose Time Spent with Patient Time Spent with Patient: >50 minutes Time was spent: preparing to see the patient(eg.review tests), obtaining and/or reviewing separately otained hiistory, ordering medications,tests, procedures, indepentently interpreting results and counseling the patient
[2024-03-14] MEDS: Nystatin 500000 UNITS/5 ML SUSP 5ML CUP PO ×2 (16:21→19:59)
[2024-03-14 17:22] LABS: Lab Add On Test DONE
[2024-03-14 17:45] LABS: Total Iron Binding Capacity 239 ug/dL (250-450)
[2024-03-14 17:54] LABS: Ferritin 203 ng/mL (26-388)
[2024-03-14] MEDS: Fluconazole 100 MG TAB 400 MG PO (18:00)
[2024-03-14] MEDS: Rosuvastatin 20 MG TAB 40 MG PO (19:56)
[2024-03-14] MEDS: Prazosin 5 MG CAP 10 MG PO (19:57)
[2024-03-14] MEDS: Melatonin 3 MG TAB 6 MG PO (19:58)
[2024-03-15] MEDS: CEFEPIME 1 GM in Normal Saline 50 ML IVPB (01:22)
[2024-03-15] MEDS: Normal Saline Flush 10 ML SYR IVP ×2 (01:27→08:36)
[2024-03-15 02:44] VITALS: BP 138/60; PULSE 60; RESP 16; TEMP 36; O2SAT 94
[2024-03-15] MEDS: Miconazole 2% Topical Powder 85 GM BTL TP ×2 (06:07→08:35)
[2024-03-15] MEDS: Levothyroxine 200 MCG TAB 100 MCG PO (06:07)
--- NOTE | 2024-03-15 07:05 | NUR.NOTE ---
Accessed chart to reconcile orders for EKG with EKG?s in [facility]. Duplicate order cancelled. Nursing Note:
[2024-03-15 07:45] VITALS: BP 152/73; PULSE 62; RESP 18; TEMP 36.8; O2SAT 95
[2024-03-15] MEDS: Magic Mouthwash 119 ML BTL PO (08:33)
[2024-03-15] MEDS: Nystatin 500000 UNITS/5 ML SUSP 5ML CUP PO (08:33)
[2024-03-15] MEDS: Docusate Sodium 100 MG CAP PO (08:34)
[2024-03-15] MEDS: Spironolactone 25 MG TAB PO (08:34)
[2024-03-15] MEDS: Cholecalciferol (Vitamin D3) 1,000 UNIT TAB 1000 UNITS PO (08:34)
[2024-03-15] MEDS: Pantoprazole 40 MG TABCR PO (08:34)
[2024-03-15] MEDS: Fluconazole 100 MG TAB 200 MG PO (08:34)
[2024-03-15] MEDS: Empaglifozin 25 MG TAB PO (08:34)
[2024-03-15] MEDS: Furosemide 20 MG TAB PO (08:35)
[2024-03-15] MEDS: Venlafaxine 150 MG CAPCR PO (08:35)
[2024-03-15] MEDS: Tamsulosin 0.4 MG CAPCR PO (08:35)
[2024-03-15] MEDS: Pregabalin 50 MG CAP PO (08:35)
[2024-03-15] MEDS: Apixaban 5 MG TAB PO (08:35)
[2024-03-15] MEDS: Rifaximin 550 MG TAB PO (08:35)
[2024-03-15] MEDS: Losartan 25 MG TAB 50 MG PO (08:35)
[2024-03-15] MEDS: Diclofenac 1% Gel 100 GM TUBE TP (08:36)
[2024-03-15] MEDS: Ferrous Sulfate 325 MG TAB PO (08:39)
--- NOTE | 2024-03-15 09:13 | PDOC.CMPRO ---
Date of service: 03/15/24 Time of Service: 09:14 Care Management Progress Note Progress Note Text Progress Note Text: S/O: Merrill was lying in bed when meeting with CM. A: Osmar is a 79 year old admitted to [facility] on 03/13/24 with bacteremia. P: Anticipate Merrill will be discharged home when medically cleared. He will follow up with his providers at the [place] and will transport with family. CM will follow and continue to assess for discharge nee SDOH(Care Management) Screening Will the Patient Participate in the Screening?: Yes Do you worry about having a steady place to live?: no Problems where you live: no known problems In the past 12 months, have you had to go without electric, gas, oil or water in your home?: no Have you or anyone in your house had to go without enough food to eat?: no Has lack of transportation kept you from medical appointments or from doing things needed for daily living?: no Has anyone in your support network made you feel unsafe for any reason?: no
[2024-03-15] MEDS: cefTRIAXone 2 GM/50 ML BAG IVPB (09:27)
--- NOTE | 2024-03-15 10:49 | TELEFU_ITS ---
Date of service: 03/15/24 Time of Service: 10:49 Nutrition Note NOTE: Received consult request for diabetes education/management. Pt is 79yo male admitted after blood cultures from provider came up positive and was instructed to go to ED. Last A1C was 8.2 on 01/19/24. 122 for FBG this morning.Jardiance and metformin at home. Pt does shopping/cooking. He does not check glucose at home or engage in carb tracking/counting. Pt confirms he has low understanding of nutrition co ncepts. Declined detailed education for diabetes at this time but did take my card as he did express some interest in outpt services with his after I offered a visit to go over protein needs, carb amounts, which foods to choose more (of less of) etc... Will check in periodically this admission for more education opportunities but will encourage pt to take advantage of outpatient education services Time Spent in Nutritional Counseling and Treatment: 10 minutes
[2024-03-15 11:24] VITALS: BP 156/71; PULSE 68; RESP 18; TEMP 36.6; O2SAT 97
--- NOTE | 2024-03-15 12:24 | W.PM.DS.N ---
Date of service: 03/15/24 Time of Service: 12:24 DS: Diagnosis Discharge Diagnosis (1) Oral candidiasis: Status: Acute (2) Cellulitis: Status: Acute (3) Gram-negative bacteremia: Status: Acute (4) Encephalopathy, hepatic: Status: Chronic (5) Hypertension: Status: Chronic (6) Type 2 diabetes mellitus: Status: Chronic (7) CHF (congestive heart failure): Status: Chronic (8) PAF (paroxysmal atrial fibrillation): Status: Chronic (9) ANETTE (obstructive sleep apnea): Status: Chronic Discharge Plan Disposition Patient Disposition: Home W/Home Health Services Condition: Stable Discharge Details Reason For Visit: Gram-negative bacteremia, Sepsis syndrome Admit Date/Time: 03/13/24 19:28 Admit Provider: Phoenix Jim Attending Provider: Phoenix Jim Primary Care Provider: Maryann Whitt Hospital Course Hospital Course: This is a 79-year-old male patient who has been being treated outpatient for a right lower extremity cellulitis with clindamycin. He returned to the emergency department with worsening symptoms. One of his blood culture tubes was positive for gram negative bacteria he was placed on cefepime and admitted to the hospitalist service. After admission he remained afebrile. His cellulitis markedly improved. He remained hemodynamically stable and feeling much better repeat blood culture tubes have been negative. The 1 blood culture tube did grow Serratia marcescens which was sensitive to the cephalosporins. He was down stepped to ceftriaxone and will be discharged home on cefpodoxime to complete a 2-week course. Hospital course was also complicated with oral thrush with pain that did radiate down his throat. He was started on Diflucan and given Magic mouthwash for his symptoms. This started improving as well. He is being discharged home on cefpodoxime to complete a 2-week course for gram-negative bacteremia and Diflucan for 3 weeks to treat esophageal Candidasis. He has been safely reambulated he is eating and drinking bowels and bladder functioning and he is voicing no further complaints. He will have resumption of home health services to include nursing and physical therapy. Outpatient follow-up with his primary care provider Discharge discussed with Dr. Payne Home Meds and New Rx's Prescriptions: New cefpodoxime 200 mg tablet 200 mg PO BID Qty: 28 0RF Rx Instructions: must administer with a meal/food fluconazole [Diflucan] 200 mg tablet 200 mg PO DAILY Qty: 20 0RF Mag&Al/Sim/Diphenhyd/Lidocaine [First-Mouthwash Blm Suspension] 5 ml PO QID Qty: 0 0RF Continued prazosin 5 mg Capsule 10 mg PO QHS pantoprazole 40 mg Tablet,Delayed Release (Dr/Ec) 40 mg PO DAILY metformin 1,000 mg Tablet 1,000 mg PO BID pregabalin 50 mg Capsule 50 mg PO BID Eliquis 5 mg Tablet 5 mg PO BID Hold Instructions: until discussed with outpatient team as you have not been taking it. nitroglycerin 0.4 mg Tablet, Sublingual 0.4 mg sublingual Q5 MIN PRN X3 PRNQty: 30 0RF miconazole nitrate 2 % Powder 1 applic TOPICAL BID PRN acetaminophen [Tylenol] 325 mg Capsule 650 mg PO Q8H MDD 3000 PRNQty: 0 0RF Hold Instructions: Changed by Provider rifaximin 550 mg Tablet 550 mg PO BID docusate sodium [Colace] 100 mg Capsule 100 mg PO BID Qty: 60 0RF tamsulosin 0.4 mg Capsule 0.4 mg PO DAILY ferrous sulfate 325 mg (65 mg iron) Tablet 325 mg PO DAILY empagliflozin 25 mg Tablet 25 mg PO DAILY furosemide [Lasix] 20 mg tablet 20 mg PO QAM levothyroxine 200 mcg Tablet 100 mcg PO QAM Qty: 0 0RF spironolactone 25 mg Tablet 25 mg PO DAILY Qty: 30 0RF cholecalciferol (vitamin D3) 25 mcg (1,000 unit) capsule 25 mcg PO DAILY diclofenac sodium [Arthritis Pain (diclofenac)] 1 % gel 2 g topical QID Rx Instructions: apply to single elbow, wrist or hand; for hand includes palm/fingers/back of hand losartan 50 mg tablet 50 mg PO DAILY rosuvastatin [Crestor] 40 mg tablet 40 mg PO DAILY venlafaxine 150 mg capsule,extended release 24hr 150 mg PO DAILY lactulose 20 gram/30 mL Solution 20 g PO QD-TID Qty: 1800 11RF Rx Instructions: to maintain colostomy output of 3-4 bags per day melatonin 3 mg Tablet 6 mg PO HS Qty: 0 0RF losartan 25 mg Tablet 50 mg PO BID Qty: 0 0RF rosuvastatin [Crestor] 20 mg Tablet 40 mg PO QPM Qty: 0 0RF Discontinued clindamycin HCl 300 mg capsule 300 mg PO TID 7 Days Qty: 21 0RF Discharge Instructions Instructions: Cellulitis (DC), Oral Candidiasis (ED) Stand Alone Forms: Nursing Discharge Form Referrals: Maryann Whitt [Primary Care Provider] - (Please call for a hospital follow up within 10-14days.) Activity:: Activity as Tolerated Equipment/Supplies:: No Equipment Needed Diet:: As Tolerated Discharge Orders Discharge Orders: Discharge Order (Routine); Ordered 03/15/24 Ordered By: Bella Santo DS: Summary Time Spent with Patient providing and/or coordinating discharge services: Greater than 30 minutes Status at Discharge Functional status at discharge: uses cane/walker Overall status at discharge: patient is progressing back to baseline Mental Status: mental status grossly normal Speech and Movement: speech and movement normal Mood: congruent mood Affect: normal affect Quality:SDOH Health Related Social Needs: Health related social needs transpo insecurity Exam Narrative Exam Narrative: Chronically ill-appearing male of stated age no acute distress head is atraumatic eyes nonicteric noninjected Posterior pharynx clear with white patchy coat on left posterior pharynx, and tongue Cardiovascular regular rate and rhythm respirations even and unlabored breath sounds diminished in the bases abdomen obese soft nontender full range of motion to extremities. Trace edema to left greater than right lower extremity erythema receding well within the skin markings Neurologic awake alert oriented no focal deficits Psychiatric normal mood and affect Psych Mental Status: mental status grossly normal Speech and Movement: speech and movement normal Mood: congruent mood Affect: normal affect DS: Data Vitals/I&O Vitals and I&O: Vital Signs Temperature 36.6 C 03/15/24 11:24 Temperature Source Tympanic 03/15/24 11:24 Pulse 68 03/15/24 11:24 Pulse Rhythm Regular 03/15/24 08:30 Pulse 84 03/13/24 20:20 Respiratory Rate 18 03/15/24 11:24 Respiratory Effort Normal, Non-Labored 03/15/24 08:30 Respiratory Depth Normal 03/15/24 08:30 Respiratory Pattern Normal 03/15/24 08:30 Blood Pressure 156/71 H 03/15/24 11:24 Blood Pressure Mean 106 03/13/24 20:16 Blood Pressure Position Sitting 03/13/24 16:11 Pulse Oximetry 97 03/15/24 11:24 Oxygen Delivery Method Room Air 03/15/24 11:24 Oxygen Flow Rate 0 03/15/24 11:24 Fraction of Inspired Oxygen (FIO2) 21 03/14/24 21:07 Pain Level 0 03/15/24 11:24 Comment pt reports tongue pain. 12/0603/14/24 04:23 Intake & Output 03/14/24 03/15/24 03/15/24 23:59 11:59 23:59 Intake Total 80 / 823.333 480 / 480 Output Total 1450 / 1450 Balance 80 / 823.333 -970 / -970 Weight 105.9 kg Intake: IV 80 / 223.333 60 / 60 Oral 420 / 420 Output: Urine 1450 / 1450 Other: Urine Color Yellow Yellow Urine Appearance Sediment Clear Urine Odor Normal Strong Comment pT incontinent on to floor Stool Characteristics Soft Brown Voiding Methods Bedside Commode Bedside Commode Incontinent Diaper Incontinent Data Completed and Pending Labs on day of discharge: Labs from last 24 hours 03/14/24 17:15 TIBC 239 L Ferritin 203 Add-On Test Request DONE 03/15/24 09:10 Blood Blood Culture - Pending 03/15/24 08:55 Blood Blood Culture - Pending Preliminary micro results at discharge 03/15/24 09:10 Blood Culture - Pending Blood 03/15/24 08:55 Blood Culture - Pending Blood 03/13/24 17:43 Blood Culture - Preliminary Blood NO GROWTH 24 HOURS 03/13/24 17:13 Blood Culture - Preliminary Blood NO GROWTH 24 HOURS PFSH All Active Problems (Updated 03/14/24 @ 16:06 by Bella Santo NP) Oral candidiasis (Acute) Sepsis syndrome (Acute) PAF (paroxysmal atrial fibrillation) (Chronic) Gram-negative bacteremia (Acute) Cellulitis (Acute) Lower urinary obstructive symptom (Acute) Encephalopathy, hepatic (Chronic) Anemia of chronic disease (Acute) Thrombocytopenia (Chronic) Ventricular ectopy (Acute) Sinus bradycardia (Acute) Leukocytosis (Acute) Hypertension (Chronic) Elevated lactic acid level (Acute) CHF (congestive heart failure) (Chronic) No-show for appointment (Acute) Left rotator cuff tear (Acute) Acute UTI (urinary tract infection) (Acute) Weakness (Acute) Non-ST elevation [place] (NSTEMI) (Acute) Pre-syncope (Acute) Frequent falls (Acute) Orthostatic hypotension (Acute) Chronic atrial fibrillation (Chronic) Type 2 diabetes mellitus (Chronic) Hypokalemia (Acute) Bradycardia (Acute) Multiple falls (Acute) Acute metabolic encephalopathy (Acute) Medication monitoring encounter (Acute) ANETTE (obstructive sleep apnea) (Chronic) Chest pain (Acute) CHF exacerbation (Acute) CHF (congestive heart failure) (Chronic) EF 25%- 2023 Medical History Heart failure with reduced ejection fraction Hypothyroidism Small bowel obstruction Lactic acid acidosis Creatinine elevation Acute UTI Anticoagulated COVID Chronic low back pain Recurrent intestinal obstruction History of colon cancer Palliative care encounter Followed by [facility] Chronic anticoagulation Portal hypertension Cirrhosis TIPs placed ([place]when, 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, [facility] as per pt Non-insulin dependent type 2 diabetes mellitus Incontinence Hypertension Scleral icterus Surgical History S/P TIPS (transjugular intrahepatic portosystemic shunt) H/O left hemicolectomy Colostomy in place Social History Smoking/Tobacco Use Status: Former Tobacco Use Smoking risk assessment performed?: Yes Alcohol Intake: former Drug use: Never Substance use type: does not use Housing: house Do you feel safe at home: Yes Do you feel safe in your relationship?: Yes Additional Social history: Lives with , son, and sick [id number] in [place], moved up from [place] in 2019. [place] . Time Spent with Patient Time Spent with Patient: >85 minutes Time was spent: preparing to see the patient(eg.review tests), obtaining and/or reviewing separately otained hiistory, ordering medications,tests, procedures, indepentently interpreting results, counseling the patient and care coordination
[2024-03-15] MEDS: Insulin Aspart 300 UNITS/3 ML PEN SC (12:43)
--- NOTE | 2024-03-15 13:25 | PDOC.CMDIS ---
Date of service: 03/15/24 Time of Service: 13:25 LACE Index Scoring Tool Questions: Length of Stay (in days): 2 Was the patient admitted via the E.D.?: Yes Comorbidities: Previous M.I., Diabetes w/o Complication, Congestive Heart Failure, Chronic Pulmonary Disease, Any Tumor and Liver or Renal Disease E.D. Visits: 11 Answers: Total Score: 14 Risk of Readmission: High Risk Care Management Discharge Plan Reason for Hospitalization: bacteremia Discharge Plan: Merrill will be discharged home with a resumption of home health PT and nursing. He will follow up with his providers at the [facility] and will transport with family. Patient/Family Education Needs: Review of discharge instructions, activity, limitations, follow up plan, discuss Ask Me Three Services Needed at Discharge: Home Health Care Services SDOH Health Related Social Needs: Health related social needs transpo insecurity
== END 2024-03-15 13:59 | disposition home health service (06) | DRG 872 ==
LOC: ER 16:38 → MS 20:37
PROVIDERS: Nurse Practitioner Acute Care; Admitting Provider Family Medicine; Emergency Provider Physician Assistant; PCP Nurse Practitioner Adult Health; Visit Provider Family Medicine
DX: A41.53 Sepsis due to Serratia (principal); L03.115 Cellulitis of right lower limb; I13.0 Hypertensive heart and chronic kidney disease with heart failure and stage 1 through stage 4 chronic kidney disease, or unspecified chronic kidney disease; I50.32 Chronic diastolic (congestive) heart failure; B37.0 Candidal stomatitis; E87.20 Acidosis, unspecified; B37.81 Candidal esophagitis; K76.82 Hepatic encephalopathy; E11.22 Type 2 diabetes mellitus with diabetic chronic kidney disease; N18.2 Chronic kidney disease, stage 2 (mild); I48.0 Paroxysmal atrial fibrillation; G47.33 Obstructive sleep apnea (adult) (pediatric); I25.10 Atherosclerotic heart disease of native coronary artery without angina pectoris; D63.8 Anemia in other chronic diseases classified elsewhere; D69.6 Thrombocytopenia, unspecified; I25.2 Old myocardial infarction; R29.6 Repeated falls; E87.6 Hypokalemia; E66.01 Morbid (severe) obesity due to excess calories; Z68.36 Body mass index [BMI] 36.0-36.9, adult
CPT/HCPCS: 00123; 36410; 36415; 36416; 80053; 84145; 85027; 87040; 93005; 96365; 99291; 71046; 81003; 81015; 82140; 82728; 83550; 83605; 83735; 83880; 84439; 84443; 85025; 85610; 86140; 93010; 94660; 99223; 99233; 99239; J0131; J0692; J0696; J1815

== ENCOUNTER 2024-05-11 09:50 | Inpatient (IN) | payer OTHER, SELFPAY ==
[2024-05-11] VITALS (57 sets, daily range): BP systolic 145–199; BP diastolic 53–84; PULSE 59–85; RESP 12–20; TEMP 36.4–37.3; O2SAT 90–98
--- NOTE | 2024-05-11 10:19 | ED.GENADUL_ITS ---
Discharge Plan Disposition Patient Disposition: Admit to [facility] Condition: Stable Discharge Details Clinical Impression: Sepsis Primary Care Provider: Maryann Whitt ED Provider: Js Beckwith Home Meds and New Rx's Prescriptions: No Action cefpodoxime 200 mg tablet 200 mg PO BID Qty: 28 0RF Rx Instructions: must administer with a meal/food prazosin 5 mg Capsule 10 mg PO QHS pantoprazole 40 mg Tablet,Delayed Release (Dr/Ec) 40 mg PO DAILY metformin 1,000 mg Tablet 1,000 mg PO BID pregabalin 50 mg Capsule 50 mg PO BID Eliquis 5 mg Tablet 5 mg PO BID nitroglycerin 0.4 mg Tablet, Sublingual 0.4 mg sublingual Q5 MIN PRN X3 PRNQty: 30 0RF miconazole nitrate 2 % Powder 1 applic TOPICAL BID PRN acetaminophen [Tylenol] 325 mg Capsule 650 mg PO Q8H MDD 3000 PRNQty: 0 0RF rifaximin 550 mg Tablet 550 mg PO BID docusate sodium [Colace] 100 mg Capsule 100 mg PO BID Qty: 60 0RF tamsulosin 0.4 mg Capsule 0.4 mg PO DAILY ferrous sulfate 325 mg (65 mg iron) Tablet 325 mg PO DAILY empagliflozin 25 mg Tablet 25 mg PO DAILY furosemide [Lasix] 20 mg tablet 20 mg PO QAM levothyroxine 200 mcg Tablet 100 mcg PO QAM Qty: 0 0RF spironolactone 25 mg Tablet 25 mg PO DAILY Qty: 30 0RF cholecalciferol (vitamin D3) 25 mcg (1,000 unit) capsule 25 mcg PO DAILY diclofenac sodium [Arthritis Pain (diclofenac)] 1 % gel 2 g topical QID Rx Instructions: apply to single elbow, wrist or hand; for hand includes palm/fingers/back of hand losartan 50 mg tablet 50 mg PO DAILY venlafaxine 150 mg capsule,extended release 24hr 150 mg PO DAILY lactulose 20 gram/30 mL Solution 20 g PO QD-TID Qty: 1800 11RF Rx Instructions: to maintain colostomy output of 3-4 bags per day melatonin 3 mg Tablet 6 mg PO HS Qty: 0 0RF rosuvastatin [Crestor] 20 mg Tablet 40 mg PO QPM Qty: 0 0RF HPI General Date/Time Provider Initiated Documentation: 05/11/24 09:52 . HPI Narrative: 79 y/o M presents to ED today with a chief complaint of upper abdominal pain, has complex ostomy history, history of SBO- reports little output in ostomy, difficulty urinating, and some nausea. Patient states he has not had a fever or upper respiratory infectious symptoms but does cough when he drinks fluids. He uses 2 L O2 at night. Patient states his last ostomy output was yesterday at 1500. [facility] Patient is chronically anticoagulated due to atrial fibrillation. Patients' medical history: CHF, ANETTE, T2DM, NSTEMI, UTI, hypertension, thrombocytopenia, history of TIPS procedure, recurrent intestinal obstruction, cirrhosis and portal hypertension. Family and social history: Lives independently, poor exercise habits, states has not been eating as much due to nausea lately. Related Data Home Medications ?Medication ?Instructions ?Recorded ?Confirmed apixaban 5 mg tablet (Eliquis) 5 mg PO BID 11/08/22 03/30/24 metformin 1,000 mg tablet 1,000 mg PO BID 11/08/22 03/30/24 pantoprazole 40 mg tablet,delayed 40 mg PO DAILY 11/08/22 03/30/24 release prazosin 5 mg capsule 10 mg PO QHS 11/08/22 03/30/24 pregabalin 50 mg capsule 50 mg PO BID 11/08/22 03/30/24 tamsulosin 0.4 mg capsule 0.4 mg PO DAILY 11/29/22 03/30/24 nitroglycerin 0.4 mg sublingual 0.4 mg sublingual Q5 MIN PRN X3 02/10/23 03/30/24 tablet PRN #30 tabs ferrous sulfate 325 mg (65 mg 325 mg PO DAILY 03/08/23 03/30/24 iron) tablet empagliflozin 25 mg tablet 25 mg PO DAILY 04/09/23 03/30/24 furosemide 20 mg tablet (Lasix) 20 mg PO QAM 04/09/23 03/30/24 levothyroxine 200 mcg tablet 100 mcg (1/2 x 200 mcg) PO QAM #0 04/10/23 03/30/24 tabs miconazole nitrate 2 % topical 1 applic topical BID PRN 06/16/23 03/30/24 powder acetaminophen 325 mg capsule 650 mg (2 x 325 mg) PO Q8H PRN #0 06/17/23 03/30/24 (Tylenol) caps rifaximin 550 mg tablet 550 mg PO BID 07/07/23 03/30/24 docusate sodium 100 mg capsule 100 mg PO BID #60 caps 11/09/23 03/30/24 (Colace) spironolactone 25 mg tablet 25 mg PO DAILY #30 tabs 02/24/24 03/30/24 cholecalciferol (vitamin D3) 25 25 mcg PO DAILY 03/05/24 03/30/24 mcg (1,000 unit) capsule diclofenac sodium 1 % topical gel 2 g topical QID 03/05/24 03/30/24 (Arthritis Pain (diclofenac)) losartan 50 mg tablet 50 mg PO DAILY 03/05/24 03/30/24 venlafaxine 150 mg 150 mg PO DAILY 03/05/24 03/30/24 capsule,extended release 24 hr lactulose 20 gram/30 mL oral 20 g (30 mL) PO QD-TID #1,800 mL 03/06/24 03/30/24 solution melatonin 3 mg tablet 6 mg (2 x 3 mg) PO HS #0 tabs 03/06/24 03/30/24 rosuvastatin 20 mg tablet (Crestor) 40 mg (2 x 20 mg) PO QPM #0 tabs 03/06/24 03/30/24 cefpodoxime 200 mg tablet 200 mg PO BID #28 tabs 03/30/24 03/30/24 Previous Rx's ?Medication ?Instructions ?Recorded nitroglycerin 0.4 mg sublingual 0.4 mg sublingual Q5 MIN PRN X3 02/10/23 tablet PRN #30 tabs levothyroxine 200 mcg tablet 100 mcg (1/2 x 200 mcg) PO QAM #0 04/10/23 tabs acetaminophen 325 mg capsule 650 mg (2 x 325 mg) PO Q8H PRN #0 06/17/23 (Tylenol) caps docusate sodium 100 mg capsule 100 mg PO BID #60 caps 11/09/23 (Colace) spironolactone 25 mg tablet 25 mg PO DAILY #30 tabs 02/24/24 lactulose 20 gram/30 mL oral 20 g (30 mL) PO QD-TID #1,800 mL 03/06/24 solution melatonin 3 mg tablet 6 mg (2 x 3 mg) PO HS #0 tabs 03/06/24 rosuvastatin 20 mg tablet (Crestor) 40 mg (2 x 20 mg) PO QPM #0 tabs 03/06/24 cefpodoxime 200 mg tablet 200 mg PO BID #28 tabs 03/30/24 Allergies Allergy/AdvReac Type Severity Reaction Status Date / Time Penicillins Allergy Mild Itching Unverified 05/11/24 14:27 morphine AdvReac Severe vomiting Unverified 05/11/24 14:27 General ANNA: 3 Review of Systems All systems reviewed & are unremarkable except as noted in HPI and below Exam Narrative Exam Narrative: GENERAL APPEARANCE: Well-nourished, non-toxic, awake and alert, atraumatic, no acute distress. SKIN: Warm, pale, diaphoretic, intact, without rashes/lesions/ulcerations. HEAD: Normocephalic, atraumatic, normal hair distribution for gender/age. EYES: Pupils PERRLA, EOMs intact without nystagmus, normal conjunctiva, no exudates on lids/lashes. ENT: Nares patent, no circumoral cyanosis, no facial swelling NECK: Supple, trachea midline, painless cervical ROM. LUNGS/CHEST: Lungs CTA bilaterally- no rhonchi/rales/wheezes diffusely, labored respirations, normal A/P diameter, symmetrical expansion, no chest wall deformity HEART (CV/PV): Irregular rate and rhythm without murmur, no peripheral edema, no JVD. ABDOMEN: Normoactive bowel sounds, distended, no guarding, right upper quadrant and epigastric tenderness, no pulsatile masses. MSK: Normal ROM, no swelling/deformity to bilateral UEs or LEs, moving all extremities without weakness, no cyanosis, spine midline without tenderness, normal curvature. NEURO: Mental Status AAOx4 - alert to person, place, time, events No facial droop, no forehead involvement. Motor: No focal weakness - strength 5/5 in bilateral UEs and LEs, proximal and distal, symmetric. Sensory: sensation intact to light touch globally. Gait NT PSYCH: euthymic, cooperative, pleasant, appropriate speech Medical Decision Making This dictation utilizes [id number] dictation software and may contain unedited grammatical errors. 79 y/o M presents to ED today with a chief complaint of upper abdominal pain, has complex ostomy history, history of SBO- reports little output in ostomy, difficulty urinating, and some nausea. Patient states he has not had a fever or upper respiratory infectious symptoms but does cough when he drinks fluids. He uses 2 L O2 at night. Patient states his last ostomy output was yesterday at 1500. [facility]. Patient is chronically anticoagulated due to a trial fibrillation. Patients' medical history: CHF, ANETTE, T2DM, NSTEMI, UTI, hypertension, thrombocytopenia, history of TIPS procedure, recurrent intestinal obstruction, cirrhosis and portal hypertension. Family and social history: Lives independently, poor exercise habits, states has not been eating as much due to nausea lately. Pertinent exam findings / vital signs include normoactive bowel sounds, abdominal distention, right upper quadrant and epigastric abdominal tenderness, lungs CTA without rales at bases, afebrile and nontoxic vitals, neuro intact. Differential / pathologies of concern include Sepsis, aspiration PNA, SBO, Mesteric Ischemia, UTI, Ascites, CHF, ACS. Diagnostic studies of: -CBC, CMP, lactate, procalcitonin, CRP/ESR, urinalysis, magnesium, lipase, serial troponins, BNP, CT ABD/pelvis W contrast, XR portable chest, blood cultures. *Added BNP, and IV lasix as patient takes these at home. Added conjugated bilirubin. -Lactate 4.1> repeat after ~1L 4.5 > sepsis, but patient does have history of TIPS procedure, perhaps he does not clear lactate. -CBC shows baseline anemia, leukopenia -CRP and ESR unremarkable -Serial troponins negative -Mild increase in bilirubin will reflex to conjugated bilirubin -Magnesium mildly low at 1.7, would replete with normal p.o. intake -UA is noninfected shows small amounts of blood, glucose spilling in the setting of chronic T2DM Interventions of: -IVF at maintenance rate due to CHF - IV Cefepime, IV Vancomycin IV Metronidazile. 1g IV APAP. ED Course/Assessment/Plan: 79-year-old male presents with low ostomy output and complex abdominal history with recurrent SBO, has history of TIPS procedure, did have high ostomy output here in the emergency department and he is also reporting difficulty urinating but has output here in the department. His initial lactate was 4.1 which increased with IV fluids to 4.5 I do not suspect that this is normal in the setting of his chronic cirrhosis and TIPS procedure history as a lactic acid retainer-I would not expect an increase over the course of hours while IV fluids are running. Patient is leukopenic and reports history of coughing with intake of fluids possible early aspiration pneumonia. CT is unremarkable for signs of SBO or mesenteric ischemia and I did discuss the CT scan at length with radiologist Dr. Bauer. -Spoke with [place] in [facility] transfer staff @ [phone] about admissions - they state they are not accepting admissions at this time due to capacity. Spoke with Hospitalist Dr. Payne @ [phone] - patient will be admitted for sepsis, possible early aspiration PNA here without hypoxia. Patient likely needs a repeat CTA ABD/Pelvis w oral contrast to confirm SBO status but patient has had ostomy output and urinary output since being in the ED here today. Question his TIPS procedure and lactate clearance. CXR is not clear- but no rales to auscultation. Advised patient we would be keeping him here at [facility] and he needs sepsis care and repeat CT ABD/Pelvis w Contrast if he continues to have scant output from ostomy, or CTA of ABD/Pelvis for definitive mesenteric ischemia ruleout though no ischemic pattern was seen and discussed with Radiologist on CT review- states that due to the tethered bowel that there will always be some level of imperfection in the vascular status of this bowel. Findings not consistent with hypoxic respiratory failure, overt pulmonary edema, ACS, SBO, question whether he is a partial SBO. Disposition of Sepsis. Patient verbalized understanding of the plan and return to ED criteria and engaged in shared decision making. Medical Records Medical records reviewed: Yes I reviewed the patient's medical records. Imaging Data Radiologic Study: Attestation: I personally reviewed and interpreted this imaging study as follows: Imaging: CT Scan Radiologist's impression: EXAM: CT ABDOMEN PELVIS W CLINICAL HISTORY: ?SBO, low output ostomy. TECHNIQUE: Imaging Protocol: Axial computed tomography images with coronal and sagittal reformatted images were created and reviewed CONTRAST MATERIAL: Intravenous: Omnipaque-350 100cc Oral: None COMPARISON: CT CT ABDOMEN PELVIS W from 02/22/2024 FINDINGS: VISUALIZED LUNG BASES: No nodules nor pleural effusions evident. ABDOMEN: GI: Again noted is partial right adolfo colectomy and a left-sided colostomy. There are still abnormally dilated and thickened-widened central small bowel loops which appear to be tethered to the anterior abdominal wall. These bowel loops exhibit diameters up to 5 cm, slightly more so than previous. LIVER: Cirrhotic appearing liver with TIPS stent again noted, unchanged in position. There are no dilated intrahepatic ducts evident. No new ominous liver masses evident. Small benign cyst in the left hepatic lobe again noted measuring less than 1 cm. GALLBLADDER/BILIARY: Small suggestion of possible gallstones in the gallbladder neck region. Should be assessed with ultrasound. CBD is not dilated. PANCREAS: No evidence of pancreatic mass nor dilatation of the pancreatic duct. SPLEEN: Splenomegaly again noted. No evidence of splenic infarct or splenic lesions. Splenic vein is 1.4 cm diameter, similar to previous no intraluminal thrombus in the splenic and portal veins. ADRENALS: There are no significant adrenal masses. KIDNEYS:No cysts evident. No solid renal masses. No calculi nor hydronephrosis.. ABDOMINAL AORTA: Calcified but not enlarged. LYMPH NODES:There is no retroperitoneal nor paraaortic adenopathy. ABDOMINAL WALL: There is an anterior abdominal wall hernia 2.5 cm to the right of the midline supraumbilical region. Hernia sac contains mesenteric fat but no bowel loops. PELVIS: GI: No evidence of appendicitis.No evidence of sigmoid diverticulitis. LYMPH NODES: There is no intrapelvic nor inguinal adenopathy. REPRODUCTIVE: Prostate smaller surgically absent. URINARY BLADDER: No calculi nor obvious masses evident OSSEOUS: No fractures and no significant osseous lesions. Multilevel disc space narrowing throughout the lumbar spine. No listhesis. IMPRESSION: 1. Compared to prior CT scan of 02/22/2024 there is again noted evidence of subtotal colectomy and left-sided colostomy. There are again noted multiple abnormal appearing small bowel loops in the mid abdomen which are dilated and thickened and appear partially tethered. Clinically indicated this study can be repeated with oral contrast, as was the prior study of 02/22/2024. 2. Hepatic cirrhosis and splenomegaly again evident. TIPS shunt in the liver again noted. There is no ascites. Radiologic Study #2: Attestation: I personally reviewed and interpreted this imaging study as follows: Imaging: X-Ray Radiologist's impression: EXAM: XR PORTABLE CHEST AP CLINICAL HISTORY: shortness of breath, O2 initiated. TECHNIQUE: 2D digital imaging was performed. COMPARISON: CR,XR XR CHEST 2V PA LATERAL from 03/13/2024 FINDINGS: Single AP portable view. Heart size is upper normal. The mediastinum is not widened. Lungs are clear. No infiltrates nor obvious pleural effusions. IMPRESSION: No acute pulmonary findings on this single AP portable view of the chest. Lab Data Lab results reviewed: Yes I reviewed the patient's lab results. Labs: 05/11/24 11:17 Blood Blood Culture - Pending 05/11/24 10:55 Blood Blood Culture - Pending Laboratory Tests Range/Units 05/11/24 05/11/24 05/11/24 10:39 10:39 10:39 WBC (4.4-10.8) 10^3/uL 2.98 L RBC (4.36-5.78) 10^6/uL 3.59 L Hgb (13.5-17.5) g/dL 11.1 L Hct (40.0-50.0) % 32.6 L MCV (80-95) fL 91 MCH (27.0-33.0) pg 30.9 MCHC (32.0-36.0) % 34.0 RDW (11.8-14.1) % 15.8 H Plt Count (130-400) 10^3/uL 55 L MPV (8.0-11.0) fL 10.6 Immature Gran % % 0.3 Neutrophils % % 77.3 Lymphocytes % % 10.7 Monocytes % % 8.4 Eosinophils % % 3.0 Basophils % % 0.3 Nucleated RBC % (0.0-0.3) % 0.0 Absolute Neutrophils (1.2-6.7) 10^3/uL 2.30 Absolute Lymphocytes (1.2-3.4) 10^3/uL 0.32 L Absolute Monocytes (0.1-0.8) 10^3/uL 0.25 Absolute Eosinophils (0.0-0.7) 10^3/uL 0.09 Absolute Basophils (0.0-0.2) 10^3/uL 0.01 ESR (0-20) mm/hr 13 VBG Lactate (0.6-1.4) mmol/L 4.1 H* Sodium (136-145) mmol/L 143 Potassium (3.5-5.1) mmol/L 4.2 Chloride (98-107) mmol/L 107 Carbon Dioxide (21.0-32.0) mmol/L 24.5 Anion Gap (3-11) mmol/L 11.5 H BUN (7-18) mg/dL 13 Creatinine (0.70-1.30) mg/dL 1.1 Est GFR (CKD-EPI 2020) (mL/min/1.73m2) 69.14 Glucose (74-106) mg/dL 158 H Calcium (8.5-10.1) mg/dL 9.6 Magnesium (1.8-2.4) mg/dL 1.7 L Cancelled Total Bilirubin (0.2-1.0) mg/dL 1.44 H AST (15-37) U/L 33 ALT (16-63) U/L 24 Alkaline Phosphatase (46-116) U/L 110 Troponin I (< or =60) ng/L < 50 Cancelled C-Reactive Protein (<or=0.5) mg/dL < 0.50 Total Protein (6.4-8.2) g/dL Albumin (3.4-5.0) g/dL Lipase (16-77) U/L Procalcitonin ng/mL Urine Color (Yellow) Urine Clarity (Clear) Urine pH (5-8) Ur Specific [place] (1.005-1.025) Urine Protein (Neg-Trace) mg/dL Urine Ketones (Negative) mg/dL Urine Blood (Negative) Urine Nitrite (Negative) Urine Bilirubin (Negative) Urine Urobilinogen (Up to 0.2) mg/dL Ur Leukocyte Esterase (Negative) Urine RBC (0-2) HPF Urine WBC (0-5) HPF Ur Epithelial Cells (Negative) HPF Urine Crystals (Negative) HPF Urine Bacteria (Negative) HPF Urine Casts (Negative) LPF Urine Mucus (Negative) Urine Other (Negative) Ur Culture Indicated? Urine Glucose (Negative) mg/dL Range/Units 05/11/24 05/11/24 05/11/24 10:39 10:39 13:13 WBC (4.4-10.8) 10^3/uL RBC (4.36-5.78) 10^6/uL Hgb (13.5-17.5) g/dL Hct (40.0-50.0) % MCV (80-95) fL MCH (27.0-33.0) pg MCHC (32.0-36.0) % RDW (11.8-14.1) % Plt Count (130-400) 10^3/uL MPV (8.0-11.0) fL Immature Gran % % Neutrophils % % Lymphocytes % % Monocytes % % Eosinophils % % Basophils % % Nucleated RBC % (0.0-0.3) % Absolute Neutrophils (1.2-6.7) 10^3/uL Absolute Lymphocytes (1.2-3.4) 10^3/uL Absolute Monocytes (0.1-0.8) 10^3/uL Absolute Eosinophils (0.0-0.7) 10^3/uL Absolute Basophils (0.0-0.2) 10^3/uL ESR (0-20) mm/hr VBG Lactate (0.6-1.4) mmol/L Sodium (136-145) mmol/L Potassium (3.5-5.1) mmol/L Chloride (98-107) mmol/L Carbon Dioxide (21.0-32.0) mmol/L Anion Gap (3-11) mmol/L BUN (7-18) mg/dL Creatinine (0.70-1.30) mg/dL Est GFR (CKD-EPI 2020) (mL/min/1.73m2) Glucose (74-106) mg/dL Calcium (8.5-10.1) mg/dL Magnesium (1.8-2.4) mg/dL Total Bilirubin (0.2-1.0) mg/dL AST (15-37) U/L ALT (16-63) U/L Alkaline Phosphatase (46-116) U/L Troponin I (< or =60) ng/L C-Reactive Protein (<or=0.5) mg/dL Cancelled Total Protein (6.4-8.2) g/dL 6.3 L Albumin (3.4-5.0) g/dL 3.0 L Lipase (16-77) U/L 71 Cancelled Procalcitonin ng/mL < 0.1 Urine Color (Yellow) Yellow Urine Clarity (Clear) Clear Urine pH (5-8) 6.0 Ur Specific Georg[place] (1.005-1.025) 1.020 Urine Protein (Neg-Trace) mg/dL 100 H Urine Ketones (Negative) mg/dL Trace H Urine Blood (Negative) Small H Urine Nitrite (Negative) Negative Urine Bilirubin (Negative) Negative Urine Urobilinogen (Up to 0.2) mg/dL 1.0 H Ur Leukocyte Esterase (Negative) Negative Urine RBC (0-2) HPF 3-5 H Urine WBC (0-5) HPF 0-2 Ur Epithelial Cells (Negative) HPF Negative Urine Crystals (Negative) HPF Negative Urine Bacteria (Negative) HPF Rare Urine Casts (Negative) LPF Negative Urine Mucus (Negative) Negative Urine Other (Negative) Negative Ur Culture Indicated? No Urine Glucose (Negative) mg/dL >=1000 H Range/Units 05/11/24 13:28 WBC (4.4-10.8) 10^3/uL RBC (4.36-5.78) 10^6/uL Hgb (13.5-17.5) g/dL Hct (40.0-50.0) % MCV (80-95) fL MCH (27.0-33.0) pg MCHC (32.0-36.0) % RDW (11.8-14.1) % Plt Count (130-400) 10^3/uL MPV (8.0-11.0) fL Immature Gran % % Neutrophils % % Lymphocytes % % Monocytes % % Eosinophils % % Basophils % % Nucleated RBC % (0.0-0.3) % Absolute Neutrophils (1.2-6.7) 10^3/uL Absolute Lymphocytes (1.2-3.4) 10^3/uL Absolute Monocytes (0.1-0.8) 10^3/uL Absolute Eosinophils (0.0-0.7) 10^3/uL Absolute Basophils (0.0-0.2) 10^3/uL ESR (0-20) mm/hr VBG Lactate (0.6-1.4) mmol/L 4.5 H* Sodium (136-145) mmol/L Potassium (3.5-5.1) mmol/L Chloride (98-107) mmol/L Carbon Dioxide (21.0-32.0) mmol/L Anion Gap (3-11) mmol/L BUN (7-18) mg/dL Creatinine (0.70-1.30) mg/dL Est GFR (CKD-EPI 2020) (mL/min/1.73m2) Glucose (74-106) mg/dL Calcium (8.5-10.1) mg/dL Magnesium (1.8-2.4) mg/dL Total Bilirubin (0.2-1.0) mg/dL AST (15-37) U/L ALT (16-63) U/L Alkaline Phosphatase (46-116) U/L Troponin I (< or =60) ng/L < 50 C-Reactive Protein (<or=0.5) mg/dL Total Protein (6.4-8.2) g/dL Albumin (3.4-5.0) g/dL Lipase (16-77) U/L Procalcitonin ng/mL Urine Color (Yellow) Urine Clarity (Clear) Urine pH (5-8) Ur Specific [place] (1.005-1.025) Urine Protein (Neg-Trace) mg/dL Urine Ketones (Negative) mg/dL Urine Blood (Negative) Urine Nitrite (Negative) Urine Bilirubin (Negative) Urine Urobilinogen (Up to 0.2) mg/dL Ur Leukocyte Esterase (Negative) Urine RBC (0-2) HPF Urine WBC (0-5) HPF Ur Epithelial Cells (Negative) HPF Urine Crystals (Negative) HPF Urine Bacteria (Negative) HPF Urine Casts (Negative) LPF Urine Mucus (Negative) Urine Other (Negative) Ur Culture Indicated? Urine Glucose (Negative) mg/dL Quality:SDOH Health Related Social Needs: Health related social needs transpo insecurity PFSH All Active Problems (Updated 05/11/24 @ 14:40 by STEFANO Meier) Sepsis (Acute) Oral candidiasis (Acute) Sepsis syndrome (Acute) PAF (paroxysmal atrial fibrillation) (Chronic) Gram-negative bacteremia (Acute) Cellulitis (Acute) Lower urinary obstructive symptom (Acute) Encephalopathy, hepatic (Chronic) Anemia of chronic disease (Acute) Thrombocytopenia (Chronic) Ventricular ectopy (Acute) Sinus bradycardia (Acute) Leukocytosis (Acute) Hypertension (Chronic) Elevated lactic acid level (Acute) CHF (congestive heart failure) (Chronic) No-show for appointment (Acute) Left rotator cuff tear (Acute) Acute UTI (urinary tract infection) (Acute) Weakness (Acute) Non-ST elevation NH (NSTEMI) (Acute) Pre-syncope (Acute) Frequent falls (Acute) Orthostatic hypotension (Acute) Chronic atrial fibrillation (Chronic) Type 2 diabetes mellitus (Chronic) Hypokalemia (Acute) Bradycardia (Acute) Multiple falls (Acute) Acute metabolic encephalopathy (Acute) Medication monitoring encounter (Acute) ANETTE (obstructive sleep apnea) (Chronic) Chest pain (Acute) CHF exacerbation (Acute) CHF (congestive heart failure) (Chronic) EF 25%- 2023 Medical History Heart failure with reduced ejection fraction Hypothyroidism Small bowel obstruction Lactic acid acidosis Creatinine elevation Acute UTI Anticoagulated COVID Chronic low back pain Recurrent intestinal obstruction History of colon cancer Palliative care encounter Followed by [facility] Chronic anticoagulation Portal hypertension Cirrhosis TIPs placed (?when, [facility]? 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, Dx [facility] as per pt Non-insulin dependent type 2 diabetes mellitus Incontinence Hypertension Scleral icterus Surgical History S/P TIPS (transjugular intrahepatic portosystemic shunt) H/O left hemicolectomy Colostomy in place Social History Smoking/Tobacco Use Status: Former Tobacco Use Smoking risk assessment performed?: Yes Alcohol Intake: former Drug use: Never Substance use type: does not use Housing: house Do you feel safe at home: Yes Do you feel safe in your relationship?: Yes Additional Social history: Lives with , son, and sick [id number] in [place], moved up from [place] in 2019. [employer].
[2024-05-11] MEDS: ACETAMINOPHEN 1,000 MG/100 ML BTL 400 MG IVPB (10:55)
[2024-05-11 10:56] LABS: Abs Immature Grans 0.01 10^3/uL (0.0-0.06); Absolute Basophil Count 0.01 10^3/uL (0.0-0.2); Absolute Eosinophil Count 0.09 10^3/uL (0.0-0.7); Absolute Lymphocyte Count 0.32 10^3/uL (1.2-3.4); Absolute Monocyte Count 0.25 10^3/uL (0.1-0.8); Basophils % 0.3 %; HCT 32.6 % (40.0-50.0); HGB 11.1 g/dL (13.5-17.5); Immature Grans % 0.3 %; Lactate 4.1 mmol/L (0.6-1.4); Lymphocytes % 10.7 %; MCH 30.9 pg (27.0-33.0); MCV 91 fL (80-95); MPV 10.6 fL (8.0-11.0); Monocytes % 8.4 %; Neutrophils % 77.3 %; RBC 3.59 10^6/uL (4.36-5.78); RDW 15.8 % (11.8-14.1); RDW-SD 52.8 fL; WBC 2.98 10^3/uL (4.4-10.8)
[2024-05-11 10:57] LABS: ESR 13 mm/hr (0-20)
[2024-05-11 11:09] LABS: Platelet Count 55 10^3/uL (130-400)
[2024-05-11 11:15] LABS: ALT 24 U/L (16-63); AST 33 U/L (15-37); Alkaline Phosphatase 110 U/L (46-116); Anion Gap 11.5 mmol/L (3-11); BUN 13 mg/dL (7-18); Bilirubin, Total 1.44 mg/dL (0.2-1.0); CO2 24.5 mmol/L (21.0-32.0); CREATININE 1.1 mg/dL (0.70-1.30); Calcium 9.6 mg/dL (8.5-10.1); Chloride 107 mmol/L (98-107); Estimated GFR 69.14 (mL/min/1.73m2); Glucose 158 mg/dL (74-106); Lipase 71 U/L (16-77); Magnesium 1.7 mg/dL (1.8-2.4); Potassium 4.2 mmol/L (3.5-5.1); Sodium 143 mmol/L (136-145); Total Protein 6.3 g/dL (6.4-8.2); Troponin I < 50 ng/L (< or =60)
[2024-05-11 11:20] LABS: C-Reactive Protein < 0.50 mg/dL (<or=0.5)
[2024-05-11 11:27] LABS: Procalcitonin < 0.1 ng/mL
--- NOTE | 2024-05-11 11:31 | NUR.NOTE ---
Nursing Note: This RN placed pt on 2L of O@ via NC d/t oxygen saturations of 90-91% on RA. pt states that he usually uses home O2 at night and is trying to nap. Mikael AGARWAL aware
[2024-05-11] MEDS: Normal Saline 1,000 ML 150 ML IV ×2 (11:33→17:15)
--- NOTE | 2024-05-11 11:45 | DI.RAD_ITS ---
Exam(s) XR PORTABLE CHEST AP EXAM: XR PORTABLE CHEST AP CLINICAL HISTORY: shortness of breath, O2 initiated. TECHNIQUE: 2D digital imaging was performed. COMPARISON: CR,XR XR CHEST 2V PA LATERAL from 03/13/2024 FINDINGS: Single AP portable view. Heart size is upper normal. The mediastinum is not widened. Lungs are clear. No infiltrates nor obvious pleural effusions. IMPRESSION: No acute pulmonary findings on this single AP portable view of the chest. DATA REPOSITORY: RADIATION DOSE DELIVERED:
[2024-05-11] MEDS: Normal Saline - Diluent 50 ML VIAL IJ (11:59)
[2024-05-11] MEDS: Omnipaque 350 MG/ML 100 ML BTL IJ (12:00)
--- NOTE | 2024-05-11 12:22 | DI.CT_ITS ---
Exam(s) CT ABDOMEN PELVIS W EXAM: CT ABDOMEN PELVIS W CLINICAL HISTORY: ?SBO, low output ostomy. TECHNIQUE: Imaging Protocol: Axial computed tomography images with coronal and sagittal reformatted images were created and reviewed CONTRAST MATERIAL: Intravenous: Omnipaque-350 100cc Oral: None COMPARISON: CT CT ABDOMEN PELVIS W from 02/22/2024 FINDINGS: VISUALIZED LUNG BASES: No nodules nor pleural effusions evident. ABDOMEN: GI: Again noted is partial right adolfo colectomy and a left-sided colostomy. There are still abnormal ly dilated and thickened-widened central small bowel loops which appear to be tethered to the anterio r abdominal wall. These bowel loops exhibit diameters up to 5 cm, slightly more so than previous. LIVER: Cirrhotic appearing liver with TIPS stent again noted, unchanged in position. There are no di lated intrahepatic ducts evident. No new ominous liver masses evident. Small benign cyst in the lef t hepatic lobe again noted measuring less than 1 cm. GALLBLADDER/BILIARY: Small suggestion of possible gallstones in the gallbladder neck region. Should be assessed with ultrasound. CBD is not dilated. PANCREAS: No evidence of pancreatic mass nor dilatation of the pancreatic duct. SPLEEN: Splenomegaly again noted. No evidence of splenic infarct or splenic lesions. Splenic vein i s 1.4 cm diameter, similar to previous no intraluminal thrombus in the splenic and portal veins. ADRENALS: There are no significant adrenal masses. KIDNEYS:No cysts evident. No solid renal masses. No calculi nor hydronephrosis.. ABDOMINAL AORTA: Calcified but not enlarged. LYMPH NODES:There is no retroperitoneal nor paraaortic adenopathy. ABDOMINAL WALL: There is an anterior abdominal wall hernia 2.5 cm to the right of the midline supraum bilical region. Hernia sac contains mesenteric fat but no bowel loops. PELVIS: GI: No evidence of appendicitis.No evidence of sigmoid diverticulitis. LYMPH NODES: There is no intrapelvic nor inguinal adenopathy. REPRODUCTIVE: Prostate smaller surgically absent. URINARY BLADDER: No calculi nor obvious masses evident OSSEOUS: No fractures and no significant osseous lesions. Multilevel disc space narrowing throughout the lumbar spine. No listhesis. IMPRESSION: 1. Compared to prior CT scan of 02/22/2024 there is again noted evidence of subtotal colectomy and le ft-sided colostomy. There are again noted multiple abnormal appearing small bowel loops in the mid a bdomen which are dilated and thickened and appear partially tethered. Clinically indicated this stud y can be repeated with oral contrast, as was the prior study of 02/22/2024. 2. Hepatic cirrhosis and splenomegaly again evident. TIPS shunt in the liver again noted. There is no ascites. Discussed by phone with ER provider RADIATION DOSE DELIVERED: Total DLP DATA REPOSITORY: All CT scans at this facility are submitted to the National Radiology Data Registry (NRDR) Dose Index Registry (DIR) with the [employer] (A[employer]). RADIATION OPTIMIZATION: All CT scans at this facility use at least one of these dose optimization te chniques: automated exposure control; mA and/or kV adjustment per patient size (includes targeted exa ms where dose is matched to clinical indication); or iterative reconstruction.
[2024-05-11 13:23] LABS: Bilirubin Negative (Negative); Blood Small (Negative); Clarity Clear (Clear); Glucose >=1000 mg/dL (Negative); Ketones Trace mg/dL (Negative); Leukocyte Esterase Negative (Negative); Nitrite Negative (Negative)
[2024-05-11 13:28] LABS: Bacteria Rare HPF (Negative); C & S Indicated? No; Casts Negative LPF (Negative); Crystals Negative HPF (Negative); Epithelial Cells Negative HPF (Negative); Mucus Negative (Negative); Other Cells Negative (Negative); WBC 0-2 HPF (0-5)
[2024-05-11 13:37] LABS: Lactate 4.5 mmol/L (0.6-1.4)
[2024-05-11 14:00] LABS: Troponin I < 50 ng/L (< or =60)
[2024-05-11] MEDS: CEFEPIME 2 GM in Normal Saline 100 ML IVPB (14:17)
[2024-05-11] MEDS: VANCOMYCIN/WATER (PEG) 1.5 GM/300 ML BAG IVPB (14:19)
[2024-05-11] MEDS: metroNIDAZOLE 500 MG/100 ML BAG 100 MG IVPB ×2 (14:25→21:37)
[2024-05-11] MEDS: Furosemide 40 MG/4 ML VIAL IVP (15:02)
[2024-05-11 15:09] LABS: NT-proBNP 205 pg/mL (<300)
--- NOTE | 2024-05-11 15:26 | W.PM.HP.N ---
Date of service: 05/11/24 Time of Service: 15:26 Assessment and Plan Assessment and plan (1) PAF (paroxysmal atrial fibrillation): Status: Chronic Assessment and plan: No rate control meds listed, spouse will bring med list in AM to confirm (2) Aspiration pneumonia: Status: Acute Assessment and plan: Vacomycin given in ED, MRSA swab ordered Considering unasyn but allergy to PCN listed now considering ceftriaxone Will add metronidazole as per pharmacy consult (3) Leukopenia: Status: Acute Assessment and plan: CBC in AM (4) Diabetes: Status: Chronic Assessment and plan: Metformin on hold d/t lactic acidosis Gluc AC and HS with SSI coverage Continue other home management meds (5) Hypertension: Status: Chronic Assessment and plan: on home meds Qualifiers: Hypertension type: primary hypertension Qualified Code(s): I10 - Essential (primary) hypertension (6) On deep vein thrombosis (DVT) prophylaxis: Status: Acute Assessment and plan: On Eliquis for atrial fibrillation no further pharmacological management required Discussed with Dr. Payne History of Present Illness History of Present Illness Chief Complaint: Upper abdomninal pain, decreased ostomy output, difficulty voiding Narrative: This 79-year-old male patient with a past medical history of hepatic encephalopathy, thrombocytopenia, hypertension, cirrhosis of the liver with history of TIPS procedure and portal hypertension, CHF, CAD, urinary tract infection , atrial fibrillation on Eliquis, type 2 diabetes not on insulin but on metformin, bowel obstruction with colostomy presented to the ED at [facility] today for evaluation of abdominal pain with nausea, difficulty voiding and decreased colostomy output with the last recorded output yesterday around 3 PM. The patient denied fever, upper respiratory infection symptoms, chills, night sweats, change in vision, emesis, bloody stools, but the patient reported coughing on oral fluid intake. The patient uses 2 L of oxygen at night at home. Workup in the ED was significant for initial lactate level of 4.1 and repeated 1 of 4.5 after 1 L of IV fluid, H&H 11.1 and 32.6, WBC 2.98 lower than baseline, platelet at 55, glucose was 158, magnesium 1.7, procalcitonin was negative. In the ED the patient colostomy started to work. Chest x-ray was negative for pleural effusion and acute findings. CT of the abdomen and pelvis showed multiple abnormal appearing small bowel loops in the mid abdomen with dilation and thickening and a partial tethering appearance. No ischemia or small bowel obstruction seen. No ascites seen but hepatic cirrhosis and splenomegaly are evident. The service was consulted and the patient was admitted for evaluation and management of lactic acidosis, leukopenia, aspiration pneumonia. When seen the patient denied change in vision, dizziness, hemoptysis, coughing, reported resolution of abdominal pain and intermittent urinary incontinence at baseline. The patient confirmed that he wanted CPR and intubation and thus is a full code. Review of Systems All systems reviewed & are unremarkable except as noted in HPI and below PFSH All Active Problems (Updated 05/11/24 @ 18:16 by Evi Valenzuela APRN) Diabetes (Chronic) Aspiration pneumonia (Acute) Leukopenia (Acute) On deep vein thrombosis (DVT) prophylaxis (Acute) Sepsis (Acute) Oral candidiasis (Acute) Sepsis syndrome (Acute) PAF (paroxysmal atrial fibrillation) (Chronic) Gram-negative bacteremia (Acute) Cellulitis (Acute) Lower urinary obstructive symptom (Acute) Encephalopathy, hepatic (Chronic) Anemia of chronic disease (Acute) Thrombocytopenia (Chronic) Ventricular ectopy (Acute) Sinus bradycardia (Acute) Leukocytosis (Acute) Hypertension (Chronic) Elevated lactic acid level (Acute) CHF (congestive heart failure) (Chronic) No-show for appointment (Acute) Left rotator cuff tear (Acute) Acute UTI (urinary tract infection) (Acute) Weakness (Acute) Non-ST elevation AK (NSTEMI) (Acute) Pre-syncope (Acute) Frequent falls (Acute) Orthostatic hypotension (Acute) Chronic atrial fibrillation (Chronic) Type 2 diabetes mellitus (Chronic) Hypokalemia (Acute) Bradycardia (Acute) Multiple falls (Acute) Acute metabolic encephalopathy (Acute) Medication monitoring encounter (Acute) ANETTE (obstructive sleep apnea) (Chronic) Chest pain (Acute) CHF exacerbation (Acute) CHF (congestive heart failure) (Chronic) EF 25%- 2023 Medical History Heart failure with reduced ejection fraction Hypothyroidism Small bowel obstruction Lactic acid acidosis Creatinine elevation Acute UTI Anticoagulated COVID Chronic low back pain Recurrent intestinal obstruction History of colon cancer Palliative care encounter Followed by [facility] Chronic anticoagulation Portal hypertension Cirrhosis TIPs placed (?when, [facility]? 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, Dx [facility] as per pt Non-insulin dependent type 2 diabetes mellitus Incontinence Hypertension Scleral icterus Surgical History S/P TIPS (transjugular intrahepatic portosystemic shunt) H/O left hemicolectomy Colostomy in place Social History Smoking/Tobacco Use Status: Former Tobacco Use Smoking risk assessment performed?: Yes Alcohol Intake: former Drug use: Never Substance use type: does not use Housing: house Do you feel safe at home: Yes Do you feel safe in your relationship?: Yes Additional Social history: Lives with , son, and sick [id number] in [place], moved up from [place] in 2019. [place]. Meds Allergies and Home Medications Allergies Allergy/AdvReac Type Severity Reaction Status Date / Time Penicillins Allergy Mild Itching Verified 05/11/24 16:03 morphine AdvReac Severe vomiting Verified 05/11/24 16:03 Home Medications ?Medication ?Instructions ?Recorded ?Confirmed ?Type apixaban 5 mg tablet (Eliquis) 5 mg PO BID 11/08/22 03/30/24 History metformin 1,000 mg tablet 1,000 mg PO BID 11/08/22 03/30/24 History pantoprazole 40 mg tablet,delayed 40 mg PO DAILY 11/08/22 03/30/24 History release prazosin 5 mg capsule 10 mg PO QHS 11/08/22 03/30/24 History pregabalin 50 mg capsule 50 mg PO BID 11/08/22 03/30/24 History tamsulosin 0.4 mg capsule 0.4 mg PO DAILY 11/29/22 03/30/24 History nitroglycerin 0.4 mg sublingual 0.4 mg sublingual Q5 MIN PRN X3 02/10/23 03/30/24 Rx tablet PRN #30 tabs ferrous sulfate 325 mg (65 mg 325 mg PO DAILY 03/08/23 03/30/24 History iron) tablet empagliflozin 25 mg tablet 25 mg PO DAILY 04/09/23 03/30/24 History furosemide 20 mg tablet (Lasix) 20 mg PO QAM 04/09/23 03/30/24 History levothyroxine 200 mcg tablet 100 mcg (1/2 x 200 mcg) PO QAM #0 04/10/23 03/30/24 Rx tabs miconazole nitrate 2 % topical 1 applic topical BID PRN 06/16/23 03/30/24 History powder acetaminophen 325 mg capsule 650 mg (2 x 325 mg) PO Q8H PRN #0 06/17/23 03/30/24 Rx (Tylenol) caps rifaximin 550 mg tablet 550 mg PO BID 07/07/23 03/30/24 History docusate sodium 100 mg capsule 100 mg PO BID #60 caps 11/09/23 03/30/24 Rx (Colace) spironolactone 25 mg tablet 25 mg PO DAILY #30 tabs 02/24/24 03/30/24 Rx cholecalciferol (vitamin D3) 25 25 mcg PO DAILY 03/05/24 03/30/24 History mcg (1,000 unit) capsule diclofenac sodium 1 % topical gel 2 g topical QID 03/05/24 03/30/24 History (Arthritis Pain (diclofenac)) losartan 50 mg tablet 50 mg PO DAILY 03/05/24 03/30/24 History venlafaxine 150 mg 150 mg PO DAILY 03/05/24 03/30/24 History capsule,extended release 24 hr lactulose 20 gram/30 mL oral 20 g (30 mL) PO QD-TID #1,800 mL 03/06/24 03/30/24 Rx solution melatonin 3 mg tablet 6 mg (2 x 3 mg) PO HS #0 tabs 03/06/24 03/30/24 Rx rosuvastatin 20 mg tablet (Crestor) 40 mg (2 x 20 mg) PO QPM #0 tabs 03/06/24 03/30/24 Rx cefpodoxime 200 mg tablet 200 mg PO BID #28 tabs 03/30/24 03/30/24 Rx Exam Narrative Exam Narrative: Constitutional The patient is in bed comfortable and cooperative during the interview, without acute distress and has obese body habitus HENMT: Head is atraumatic, normocephalic, no lymphadenopathy. Facial structures with normal appearance Eyes: Well aligned, intact ROM Neck: Normal ROM, no meningeal signs Neuro:alert and oriented to self, person, place time and situation. No neurological focal deficit Resp: Normal respiratory pattern, speaks in full sentences, unlabored breathing, clear lung bilaterally Cardio: regular rhythm, S1, S2, no murmur, capillary refill<3 sec., positive bilateral radial and dorsal pulses, hepatojugular reflux positive but no JVD GI: Abdomen is not distended, soft and non tender, bowel sounds are present, colostomy bag in place : Negative Costovertebral angle tenderness, no bladder distension Back/spine/Pelvis: No back tenderness, normal alignment Integumentary: No skin lesions or rash Extremities: strength 5/5 to bilateral lower and upper extremities Psych: RASS 0, congruent mood and normal affect. Results Labs 05/11/24 10:39 05/11/24 10:39 Labs: Laboratory Results - last 24 hr 05/11/24 05/11/24 05/11/24 10:39 10:39 10:39 WBC 2.98 L RBC 3.59 L Hgb 11.1 L Hct 32.6 L MCV 91 MCH 30.9 MCHC 34.0 RDW 15.8 H Plt Count 55 L MPV 10.6 Immature Gran % 0.3 Neutrophils % 77.3 Lymphocytes % 10.7 Monocytes % 8.4 Eosinophils % 3.0 Basophils % 0.3 Nucleated RBC % 0.0 Absolute Neutrophils 2.30 Absolute Lymphocytes 0.32 L Absolute Monocytes 0.25 Absolute Eosinophils 0.09 Absolute Basophils 0.01 ESR 13 VBG Lactate 4.1 H* Sodium 143 Potassium 4.2 Chloride 107 Carbon Dioxide 24.5 Anion Gap 11.5 H BUN 13 Creatinine 1.1 Est GFR (CKD-EPI 2020) 69.14 Glucose 158 H Calcium 9.6 Magnesium 1.7 L Cancelled Total Bilirubin 1.44 H AST 33 ALT 24 Alkaline Phosphatase 110 Troponin I < 50 Cancelled C-Reactive Protein < 0.50 NT-Pro-B Natriuret Pep Total Protein Albumin Lipase Procalcitonin Urine Color Urine Clarity Urine pH Ur Specific [place] Urine Protein Urine Ketones Urine Blood Urine Nitrite Urine Bilirubin Urine Urobilinogen Ur Leukocyte Esterase Urine RBC Urine WBC Ur Epithelial Cells Urine Crystals Urine Bacteria Urine Casts Urine Mucus Urine Other Ur Culture Indicated? Urine Glucose 05/11/24 05/11/24 05/11/24 10:39 10:39 13:13 WBC RBC Hgb Hct MCV MCH MCHC RDW Plt Count MPV Immature Gran % Neutrophils % Lymphocytes % Monocytes % Eosinophils % Basophils % Nucleated RBC % Absolute Neutrophils Absolute Lymphocytes Absolute Monocytes Absolute Eosinophils Absolute Basophils ESR VBG Lactate Sodium Potassium Chloride Carbon Dioxide Anion Gap BUN Creatinine Est GFR (CKD-EPI 2020) Glucose Calcium Magnesium Total Bilirubin AST ALT Alkaline Phosphatase Troponin I C-Reactive Protein Cancelled NT-Pro-B Natriuret Pep Total Protein 6.3 L Albumin 3.0 L Lipase 71 Cancelled Procalcitonin < 0.1 Urine Color Yellow Urine Clarity Clear Urine pH 6.0 Ur Specific [place] 1.020 Urine Protein 100 H Urine Ketones Trace H Urine Blood Small H Urine Nitrite Negative Urine Bilirubin Negative Urine Urobilinogen 1.0 H Ur Leukocyte Esterase Negative Urine RBC 3-5 H Urine WBC 0-2 Ur Epithelial Cells Negative Urine Crystals Negative Urine Bacteria Rare Urine Casts Negative Urine Mucus Negative Urine Other Negative Ur Culture Indicated? No Urine Glucose >=1000 H 05/11/24 05/11/24 13:28 13:37 WBC RBC Hgb Hct MCV MCH MCHC RDW Plt Count MPV Immature Gran % Neutrophils % Lymphocytes % Monocytes % Eosinophils % Basophils % Nucleated RBC % Absolute Neutrophils Absolute Lymphocytes Absolute Monocytes Absolute Eosinophils Absolute Basophils ESR VBG Lactate 4.5 H* Sodium Potassium Chloride Carbon Dioxide Anion Gap BUN Creatinine Est GFR (CKD-EPI 2020) Glucose Calcium Magnesium Total Bilirubin AST ALT Alkaline Phosphatase Troponin I < 50 C-Reactive Protein NT-Pro-B Natriuret Pep 205 Total Protein Albumin Lipase Procalcitonin Urine Color Urine Clarity Urine pH Ur Specific [place] Urine Protein Urine Ketones Urine Blood Urine Nitrite Urine Bilirubin Urine Urobilinogen Ur Leukocyte Esterase Urine RBC Urine WBC Ur Epithelial Cells Urine Crystals Urine Bacteria Urine Casts Urine Mucus Urine Other Ur Culture Indicated? Urine Glucose Last Vital Signs Temp 36.4 C 05/11/24 15:00 Pulse 69 05/11/24 15:01 Resp 12 05/11/24 15:02 BP 181/66 H 05/11/24 15:01 Pulse Ox 94 05/11/24 15:02 Time Spent Time spent with Patient: >75 minutes Time was spent: preparing to see the patient(eg.review tests), obtaining and/or reviewing separately otained hiistory, ordering medications,tests, procedures, referring, communicating with other health manager intensive care, indepentently interpreting results, counseling the patient and care coordination
[2024-05-11 15:29] LABS: Bilirubin, Direct 0.5 mg/dL (0.0-0.2)
--- NOTE | 2024-05-11 16:02 | NUR.NOTE ---
Nursing Note: pt incontinent of urine. RN X2 assisted pt to clean up from incontinent episode
--- NOTE | 2024-05-11 17:01 | W.PC.ACHO ---
Registration Status: Primary Language: Preferred Language: ED Information & Data Chief Complaint Abd Prob 05/11/24 10:21 Chief Complaint Abd Prob 05/11/24 10:09 Triage Note Pt has colostomy and states 05/11/24 10:09 last output was around 1500 yesterday. He states he is prone to being constipated due to the amount of polyps and intestine removed (CA). Yesterday also started with intermittent burning pain across mid abd. Today he started feeling nauseated and also reports difficulty emptying bladder. Medical / Surgical History (Last Reviewed 03/13/24 @ 19:21 by Phoenix Jim) Heart failure with reduced ejection fraction Hypothyroidism Small bowel obstruction Lactic acid acidosis Creatinine elevation Acute UTI Anticoagulated COVID Chronic low back pain Recurrent intestinal obstruction History of colon cancer Palliative care encounter Chronic anticoagulation Portal hypertension Cirrhosis Confusion Colon cancer Depression Endocarditis Non-insulin dependent type 2 diabetes mellitus Incontinence Hypertension Scleral icterus (Last Reviewed 03/13/24 @ 19:21 by Phoenix Jim) S/P TIPS (transjugular intrahepatic portosystemic shunt) H/O left hemicolectomy Colostomy in place Most Recent Vital Signs Temperature 37.3 C 05/11/24 16:46 Temperature Source Temporal Artery Scan 05/11/24 16:46 Pulse 77 05/11/24 16:46 Pulse 79 05/11/24 16:30 Respiratory Rate 20 05/11/24 16:46 Respiratory Effort Normal 05/11/24 10:21 Blood Pressure 159/84 H 05/11/24 16:46 Blood Pressure Mean 117 05/11/24 15:46 Blood Pressure Position Supine 05/11/24 10:21 Pulse Oximetry 94 05/11/24 16:46 Oxygen Delivery Method Room Air 05/11/24 16:46 Oxygen Flow Rate 0 05/11/24 16:46 Pain Level 5 05/11/24 10:21 Comment RN in room. 05/11/24 16:46 Allergies Penicillins Allergy (Mild, Verified 05/11/24 16:03) Itching morphine Adverse Reaction (Severe, Verified 05/11/24 16:03) vomiting Precautions Isolation Standard precaution 05/11/24 10:21 Active Medications Generic Name Dose Route Start Last Admin Trade Name Freq PRN Reason Stop Dose Admin Sodium Chloride 1,000 mls @ 150 mls/hr 05/11/24 10:45 05/11/24 16:04 Saline 1000ml Bag IV Infused INFUSION MAN Infusion IV IV Catheter Type [Right Saline Lock Antecubital] IV Catheter Type [Left Forearm Saline Lock ] IV Catheter Gauge [Right 20 Antecubital] IV Catheter Gauge [Left 20 Forearm] Diet Orders Category Date Time Status Diabetes Consistent CHO/Heart Healthy [DIET] Nutrition 05/11/24 Dinner Active Diagnostics 05/11/24 05/11/24 05/11/24 Range/Units 13:37 13:28 13:13 WBC (4.4-10.8) 10^3/uL RBC (4.36-5.78) 10^6/uL Hgb (13.5-17.5) g/dL Hct (40.0-50.0) % MCV (80-95) fL MCH (27.0-33.0) pg MCHC (32.0-36.0) % RDW (11.8-14.1) % Plt Count (130-400) 10^3/uL MPV (8.0-11.0) fL Immature Gran % % Neutrophils % % Lymphocytes % % Monocytes % % Eosinophils % % Basophils % % Nucleated RBC % (0.0-0.3) % Absolute Neutrophils (1.2-6.7) 10^3/uL Absolute Lymphocytes (1.2-3.4) 10^3/uL Absolute Monocytes (0.1-0.8) 10^3/uL Absolute Eosinophils (0.0-0.7) 10^3/uL Absolute Basophils (0.0-0.2) 10^3/uL ESR (0-20) mm/hr VBG Lactate 4.5 H* (0.6-1.4) mmol/L Sodium (136-145) mmol/L Potassium (3.5-5.1) mmol/L Chloride (98-107) mmol/L Carbon Dioxide (21.0-32.0) mmol/L Anion Gap (3-11) mmol/L BUN (7-18) mg/dL Creatinine (0.70-1.30) mg/dL Est GFR (CKD-EPI 2020) (mL/min/1.73m2) Glucose (74-106) mg/dL Calcium (8.5-10.1) mg/dL Magnesium (1.8-2.4) mg/dL Total Bilirubin (0.2-1.0) mg/dL Conjugated Bilirubin 0.5 H (0.0-0.2) mg/dL AST (15-37) U/L ALT (16-63) U/L Alkaline Phosphatase (46-116) U/L Troponin I < 50 (< or =60) ng/L C-Reactive Protein (<or=0.5) mg/dL NT-Pro-B Natriuret Pep 205 (<300) pg/mL Total Protein (6.4-8.2) g/dL Albumin (3.4-5.0) g/dL Lipase (16-77) U/L Procalcitonin ng/mL Urine Color Yellow (Yellow) Urine Clarity Clear (Clear) Urine pH 6.0 (5-8) Ur Specific [place] 1.020 (1.005-1.025) Urine Protein 100 H (Neg-Trace) mg/dL Urine Ketones Trace H (Negative) mg/dL Urine Blood Small H (Negative) Urine Nitrite Negative (Negative) Urine Bilirubin Negative (Negative) Urine Urobilinogen 1.0 H (Up to 0.2) mg/dL Ur Leukocyte Esterase Negative (Negative) Urine RBC 3-5 H (0-2) HPF Urine WBC 0-2 (0-5) HPF Ur Epithelial Cells Negative (Negative) HPF Urine Crystals Negative (Negative) HPF Urine Bacteria Rare (Negative) HPF Urine Casts Negative (Negative) LPF Urine Mucus Negative (Negative) Urine Other Negative (Negative) Ur Culture Indicated? No Urine Glucose >=1000 H (Negative) mg/dL 05/11/24 05/11/24 05/11/24 Range/Units 10:39 10:39 10:39 WBC (4.4-10.8) 10^3/uL RBC (4.36-5.78) 10^6/uL Hgb (13.5-17.5) g/dL Hct (40.0-50.0) % MCV (80-95) fL MCH (27.0-33.0) pg MCHC (32.0-36.0) % RDW (11.8-14.1) % Plt Count (130-400) 10^3/uL MPV (8.0-11.0) fL Immature Gran % % Neutrophils % % Lymphocytes % % Monocytes % % Eosinophils % % Basophils % % Nucleated RBC % (0.0-0.3) % Absolute Neutrophils (1.2-6.7) 10^3/uL Absolute Lymphocytes (1.2-3.4) 10^3/uL Absolute Monocytes (0.1-0.8) 10^3/uL Absolute Eosinophils (0.0-0.7) 10^3/uL Absolute Basophils (0.0-0.2) 10^3/uL ESR (0-20) mm/hr VBG Lactate (0.6-1.4) mmol/L Sodium (136-145) mmol/L Potassium (3.5-5.1) mmol/L Chloride (98-107) mmol/L Carbon Dioxide (21.0-32.0) mmol/L Anion Gap (3-11) mmol/L BUN (7-18) mg/dL Creatinine (0.70-1.30) mg/dL Est GFR (CKD-EPI 2020) (mL/min/1.73m2) Glucose (74-106) mg/dL Calcium (8.5-10.1) mg/dL Magnesium (1.8-2.4) mg/dL Total Bilirubin (0.2-1.0) mg/dL Conjugated Bilirubin (0.0-0.2) mg/dL AST (15-37) U/L ALT (16-63) U/L Alkaline Phosphatase (46-116) U/L Troponin I Cancelled (< or =60) ng/L C-Reactive Protein Cancelled < 0.50 (<or=0.5) mg/dL NT-Pro-B Natriuret Pep (<300) pg/mL Total Protein 6.3 L (6.4-8.2) g/dL Albumin 3.0 L (3.4-5.0) g/dL Lipase Cancelled 71 (16-77) U/L Procalcitonin < 0.1 ng/mL Urine Color (Yellow) Urine Clarity (Clear) Urine pH (5-8) Ur Specific [place] (1.005-1.025) Urine Protein (Neg-Trace) mg/dL Urine Ketones (Negative) mg/dL Urine Blood (Negative) Urine Nitrite (Negative) Urine Bilirubin (Negative) Urine Urobilinogen (Up to 0.2) mg/dL Ur Leukocyte Esterase (Negative) Urine RBC (0-2) HPF Urine WBC (0-5) HPF Ur Epithelial Cells (Negative) HPF Urine Crystals (Negative) HPF Urine Bacteria (Negative) HPF Urine Casts (Negative) LPF Urine Mucus (Negative) Urine Other (Negative) Ur Culture Indicated? Urine Glucose (Negative) mg/dL 05/11/24 05/11/24 Range/Units 10:39 10:39 WBC 2.98 L (4.4-10.8) 10^3/uL RBC 3.59 L (4.36-5.78) 10^6/uL Hgb 11.1 L (13.5-17.5) g/dL Hct 32.6 L (40.0-50.0) % MCV 91 (80-95) fL MCH 30.9 (27.0-33.0) pg MCHC 34.0 (32.0-36.0) % RDW 15.8 H (11.8-14.1) % Plt Count 55 L (130-400) 10^3/uL MPV 10.6 (8.0-11.0) fL Immature Gran % 0.3 % Neutrophils % 77.3 % Lymphocytes % 10.7 % Monocytes % 8.4 % Eosinophils % 3.0 % Basophils % 0.3 % Nucleated RBC % 0.0 (0.0-0.3) % Absolute Neutrophils 2.30 (1.2-6.7) 10^3/uL Absolute Lymphocytes 0.32 L (1.2-3.4) 10^3/uL Absolute Monocytes 0.25 (0.1-0.8) 10^3/uL Absolute Eosinophils 0.09 (0.0-0.7) 10^3/uL Absolute Basophils 0.01 (0.0-0.2) 10^3/uL ESR 13 (0-20) mm/hr VBG Lactate 4.1 H* (0.6-1.4) mmol/L Sodium 143 (136-145) mmol/L Potassium 4.2 (3.5-5.1) mmol/L Chloride 107 (98-107) mmol/L Carbon Dioxide 24.5 (21.0-32.0) mmol/L Anion Gap 11.5 H (3-11) mmol/L BUN 13 (7-18) mg/dL Creatinine 1.1 (0.70-1.30) mg/dL Est GFR (CKD-EPI 2021) 69.14 (mL/min/1.73m2) Glucose 158 H (74-106) mg/dL Calcium 9.6 (8.5-10.1) mg/dL Magnesium Cancelled 1.7 L (1.8-2.4) mg/dL Total Bilirubin 1.44 H (0.2-1.0) mg/dL Conjugated Bilirubin (0.0-0.2) mg/dL AST 33 (15-37) U/L ALT 24 (16-63) U/L Alkaline Phosphatase 110 (46-116) U/L Troponin I < 50 (< or =60) ng/L C-Reactive Protein (<or=0.5) mg/dL NT-Pro-B Natriuret Pep (<300) pg/mL Total Protein (6.4-8.2) g/dL Albumin (3.4-5.0) g/dL Lipase (16-77) U/L Procalcitonin ng/mL Urine Color (Yellow) Urine Clarity (Clear) Urine pH (5-8) Ur Specific [place] (1.005-1.025) Urine Protein (Neg-Trace) mg/dL Urine Ketones (Negative) mg/dL Urine Blood (Negative) Urine Nitrite (Negative) Urine Bilirubin (Negative) Urine Urobilinogen (Up to 0.2) mg/dL Ur Leukocyte Esterase (Negative) Urine RBC (0-2) HPF Urine WBC (0-5) HPF Ur Epithelial Cells (Negative) HPF Urine Crystals (Negative) HPF Urine Bacteria (Negative) HPF Urine Casts (Negative) LPF Urine Mucus (Negative) Urine Other (Negative) Ur Culture Indicated? Urine Glucose (Negative) mg/dL 05/11/24 11:17 Blood Culture - Pending Blood 05/11/24 10:55 Blood Culture - Pending Blood Intake and Output - 24 Hour Total 05/11/24 09:50 thru 05/11/24 17:00 Intake Total 1600 Output Total 950 Balance 650 Weight 68.039 kg Intake: IV 1600 Output: Urine 950 Other: Urine Color Pale Urine Appearance Clear Urine Odor None Voiding Methods Urinal Falls Risk Assessment History of Falls No History 05/11/24 10:21 Contributing Factors No Factors 05/11/24 10:21 Ambulatory Aids Independent 05/11/24 10:21 Tubes/Lines None 05/11/24 10:21 Gait Evaluation No gait disturbance 05/11/24 10:21 Fall Total Score 0 05/11/24 10:21 Level of Risk Standard/Low Risk 05/11/24 10:21 Problems (Last Reviewed 03/13/24 @ 19:21 by Phoenix Jim) Aspiration pneumonia (Acute) Leukopenia (Acute) On deep vein thrombosis (DVT) prophylaxis (Acute) Sepsis (Acute) PAF (paroxysmal atrial fibrillation) (Chronic) Hypertension (Chronic) Notes 05/11/24 16:02 Nursing Notes by Anisa Galicia Nursing Note: pt incontinent of urine. RN X2 assisted pt to clean up from incontinent episode Initialized on 05/11/24 16:02 - END OF NOTE 05/11/24 11:31 Nursing Notes by Anisa Galicia Nursing Note: This RN placed pt on 2L of O@ via NC d/t oxygen saturations of 90-91% on RA. pt states that he usually uses home O2 at night and is trying to nap. Mikael AGARWAL aware Initialized on 05/11/24 11:31 - END OF NOTE v v v v v v v v v Sending and/or Receiving Nurses: Please use comment section below to note any information pertinent to the patient hand-off not included above. Information / Comments: Report received from: Anisa Lanier
[2024-05-11] MEDS: cefTRIAXone 1 GM/50 ML BAG IVPB (18:54)
[2024-05-11] MEDS: MAGNESIUM SULFATE 2 GM/50 ML BAG IVINF (18:55)
[2024-05-11 19:15] LABS: MRSA PCR Negative (Negative)
[2024-05-11] MEDS: Prazosin 5 MG CAP 10 MG PO (21:36)
[2024-05-11] MEDS: Lactulose 20 GM/30 ML CUP PO (21:36)
[2024-05-11] MEDS: Docusate Sodium 100 MG CAP PO (21:37)
[2024-05-11] MEDS: Apixaban 5 MG TAB PO (21:37)
[2024-05-11] MEDS: Pregabalin 50 MG CAP PO (21:37)
[2024-05-11] MEDS: Rifaximin 550 MG TAB PO (21:37)
[2024-05-11] MEDS: Rosuvastatin 20 MG TAB 40 MG PO (21:37)
[2024-05-11] MEDS: Melatonin 3 MG TAB 6 MG PO (21:37)
[2024-05-11] MEDS: Normal Saline Flush 10 ML SYR IVP (21:38)
--- NOTE | 2024-05-12 | DI.RAD_ITS ---
Exam(s) XR ABDOMEN FLAT PLATE EXAM: 2D digital imaging was performed. CLINICAL HISTORY: gastrographin challenge. COMPARISON: CR,XR XR ABDOMEN FLAT UPRIGHT from 05/12/2024 TECHNIQUE: Supine views of the abdomen performed. FINDINGS: BOWEL GAS PATTERN: Oral Gastrografin contrast was administered. The majority of the contrast is loca link within the colon. There is a small amount in the distal ileum. There is improvement in previous ly noted small bowel dilatation compared with the previous exam. CALCIFICATIONS: No gross evidence of radiopaque calcifications. OSSEOUS STRUCTURES: An degenerative changes noted in the spine. Soft tissues: On left sided colostomy again noted. TIPS. Visualized lung bases are clear. IMPRESSION: 1. Nonobstructive bowel gas pattern. Administered Gastrografin located in distal ileum and colon. DATA REPOSITORY: RADIATION DOSE DELIVERED:
--- NOTE | 2024-05-12 | DI.RAD_ITS ---
Exam(s) XR ABDOMEN FLAT UPRIGHT EXAM: XR ABDOMEN FLAT UPRIGHT CLINICAL HISTORY: abdominal pain, no stool output per ostomy. TECHNIQUE: 2D digital imaging was performed. COMPARISON: CR,XR XR ABDOMEN FLAT UPRIGHT from 02/22/[address] ABDOMEN PELVIS W from 05/11/2024 FINDINGS: Two AP views-supine and upright: Visualized lung bases are clear. In the abdomen there is a TIPS shunt evident in the liver. There is no free intraperitoneal air. Th ere are few air-fluid levels noted within small bowel loops in both sides of the pelvis consistent wi th the abnormal bowel loops described on yesterday's CT scan. This is in the region of prior anastom osis and this patient also has a left-sided colostomy. IMPRESSION: As above. If clinically indicated small-bowel follow-through examination or CT scan with oral contra st can be performed. DATA REPOSITORY: RADIATION DOSE DELIVERED:
[2024-05-12] MEDS: Normal Saline 1,000 ML 75 ML IV ×2 (01:36→07:47)
[2024-05-12] MEDS: Acetaminophen 325 MG TAB 650 MG PO ×3 (01:51→19:10)
--- NOTE | 2024-05-12 03:19 | W.EVENT ---
Date of service: 05/12/24 Time of Service: 03:19 Event Note: Called for abdominal pain. Chart reviewed. 79 male with h/o left hemicolectomy with colostomy, multiple admissions for SBO. Came in earlier today for abdominal pain and decreased stool output, though this resolved while in ER. Admitted for apparent pneumonia in the meantime. Patient now reports recurrence of abdominal pain, which he states is identical to prior episodes of SBO -- periumbilical, non-radiating, one brief episode of vomiting. Staff report BM several hours prior. On exam abdomen shows hyperactive BS, slightly firm, slightly tender periumbilical area. Following exam patient reports that he burped and belly pain is improved. A/P: I think this is very likely recurrence of at least partial SBO. Will obtain KUB/upright films and followup thereafter. Time Spent with Patient Time spent in critical care(minutes): 30 Time Spent Included: Chart review, Documenting critically ill care, Time at immediate bedside and Discussing critically ill care with other medical staff
[2024-05-12 03:38] VITALS: BP 157/84; PULSE 82; RESP 18; TEMP 36.6; O2SAT 93
--- NOTE | 2024-05-12 05:34 | DI.VRAD_ITS ---
PROCEDURE INFORMATION: Exam: XR Chest Exam date and time: 05/12/2024 3:18 AM Age: 79 years old Clinical indication: Other: F/u aspiration pneumonia; Patient HX: F/u on one view 05/11. HX aspiration pneumonia TECHNIQUE: Imaging protocol: Radiologic exam of the chest. Views: 2 views. COMPARISON: CR XR PORTABLE CHEST AP 11/05/2024 13:48 FINDINGS: Lungs: Right infrahilar confluent opacities. Pleural spaces: No pleural effusion or pneumothorax. Heart/Mediastinum: Mild cardiomegaly. Bones/joints: No acute fracture is identified. IMPRESSION: Right infrahilar confluent opacities. This may represent atelectasis or in the appropriate clinical setting, pneumonia such as aspiration related. There is no significant interval change from the comparison examination. Dictated and Authenticated by: Rey Nails MD. Ordering:ALETHEA Steve MD
--- NOTE | 2024-05-12 06:07 | DI.VRAD_ITS ---
PROCEDURE INFORMATION: Exam: XR Abdomen Exam date and time: 05/12/2024 3:27 AM Age: 79 years old Clinical indication: Abdominal pain; Generalized; Prior surgery; Surgery date: 6+ months; Patient HX: Abd pain, no stool output per ostomy TECHNIQUE: Imaging protocol: Radiologic exam of the abdomen. Views: 2 Views. Upright and supine views. COMPARISON: CT ABDOMEN PELVIS W 11/05/2024 12:07 FINDINGS: Tubes, catheters and devices: A tip shunt is seen in place. Gastrointestinal tract: Multiple air-fluid levels are present. Intraperitoneal space: No evidence of free air. Bones/joints: Degenerative changes of the spine. IMPRESSION: 1. Multiple air-fluid levels that may reflect obstruction or abdominal ileus pattern. 2. CT scan with oral contrast may be helpful if clinically indicated. Dictated and Authenticated by: Rey Nails MD. Ordering:ARNOL Garibay MD
[2024-05-12 07:17] LABS: Abs Immature Grans 0.02 10^3/uL (0.0-0.06); Absolute Basophil Count 0.01 10^3/uL (0.0-0.2); Absolute Eosinophil Count 0.17 10^3/uL (0.0-0.7); Absolute Monocyte Count 0.29 10^3/uL (0.1-0.8); Absolute Neutrophil Count 2.09 10^3/uL (1.2-6.7); Basophils % 0.3 %; Eosinophils % 5.7 %; HCT 32.3 % (40.0-50.0); HGB 10.6 g/dL (13.5-17.5); Immature Grans % 0.7 %; Lymphocytes % 13.4 %; MCH 30.1 pg (27.0-33.0); MCHC 32.8 % (32.0-36.0); MCV 92 fL (80-95); MPV 11.3 fL (8.0-11.0); Monocytes % 9.7 %; Neutrophils % 70.2 %; RBC 3.52 10^6/uL (4.36-5.78); RDW 15.8 % (11.8-14.1); RDW-SD 52.7 fL; WBC 2.98 10^3/uL (4.4-10.8)
[2024-05-12 07:21] LABS: Anion Gap 9.8 mmol/L (3-11); BUN 13 mg/dL (7-18); CO2 23.2 mmol/L (21.0-32.0); CREATININE 1.1 mg/dL (0.70-1.30); Chloride 106 mmol/L (98-107); Estimated GFR 69.14 (mL/min/1.73m2); Glucose 171 mg/dL (74-106); Potassium 3.7 mmol/L (3.5-5.1); Sodium 139 mmol/L (136-145)
[2024-05-12 07:29] LABS: Platelet Count 58 10^3/uL (130-400)
[2024-05-12 07:30] LABS: Diff Comment PLT Morph Reviewed
[2024-05-12 07:41] VITALS: BP 139/52; PULSE 75; RESP 20; TEMP 37; O2SAT 93
[2024-05-12] MEDS: Normal Saline Flush 10 ML SYR IVP ×2 (07:48→21:12)
[2024-05-12] MEDS: metroNIDAZOLE 500 MG/100 ML BAG 100 MG IVPB ×2 (07:48→15:23)
--- NOTE | 2024-05-12 08:00 | DI.RAD_ITS ---
Exam(s) XR CHEST 2V PA LATERAL EXAM: XR CHEST 2V PA LATERAL CLINICAL HISTORY: f/u on XR one view from 05/11. TECHNIQUE: 2D digital imaging was performed. COMPARISON: No exams were available for comparison FINDINGS: 2 views: Heart size is upper normal. The mediastinum is not widened. There are no confluent pulmonary infiltrates nor pleural effusions. No pulmonary edema. IMPRESSION: No acute pulmonary findings. DATA REPOSITORY: RADIATION DOSE DELIVERED:
--- NOTE | 2024-05-12 08:41 | PDOC.CMIN ---
Date of service: 05/12/24 Time of Service: 08:41 Care Management Initial Assmt Initial Assessment Reason for Hospitalization: pneumonia Functional Status/Living Situation Patient Presentation: Merrill was sitting up in bed when CM met with him. He was pleasant in interaction and engaged easily with CM, well known to him from previous admissions. Merrill stated that he has not felt well for a couple of days. In general, his appetite has been waning in the recent past and he developed abdominal pain. Merrill has had several admissions for bowel obstructions and he was concerned that this was again the case. He denied nausea or vomiting either before or since admission, just endorsed pain. He informed CM that when he was able to pass gas today, the pain went away. He is currently NPO but stated he ate supper with no problems last evening. Town of Residence: [place] Resides with: Spouse ( Cely and son Justen) Natural Supports: family Employment Status: Retired Instrumental Activities of Daily Living (ADLs): Independent Activities/Hobbies/SocialSupport: mostly independent; needs some assistance which family provides Medications Medication Management: Issues/Barriers with Instructions/Directions Physical Functioning/Mobility Assistive Device: walker Advance Directives Advance Directives: Do you have an Advance Directive: N 03/13/24 20:44 AD On File at [facility]: N 06/17/23 16:15 Date Asked 05/11/24 05/11/24 09:54 AD Date Reviewed COLST On File at [facility] No 12/04/23 16:58 COLST Date Scanned Code Status Resuscitation Status Full Code Portal Pt does not currently have a portal and education provided: Yes Insurance Coverage/Financial Issues Insurance: [place] ACO Member: No Care Team Visit Care Team Role Provider Type Maryann Whitt Primary Care Provider NURSE PRACTITIONER Melly Sherwood MD Other Providers NON-[facility] STAFF PHYSICIAN STEFANO Levin Other Providers PHYSICIANS ASSISTANT Angeles Miller [facility] Other Providers [facility] STAFF PHYSICIAN Chauncey Lo MD Other Providers CONSULTING PHYSICIAN Chu Barry MD Other Providers CONSULTING PHYSICIAN Clarissa Goldberg, [place], [facility] Other Providers [employer] DE[employer]ER Adelita Torres Other Providers [employer]ER Osmar Lockett MD Other Providers NON-[facility] STAFF PHYSICIAN Osmar Skinner DO Other Providers CONSULTING PHYSICIAN Felipe Meyer MD Other Providers [facility] STAFF PHYSICIAN Higinio Rodarte Other Providers CONSULTING PHYSICIAN Rogerio Mccallum MD Other Providers CONSULTING PHYSICIAN Kristina Nicole, DO Other Providers OSTEOPATHIC DOCTOR Mya Schuster, DO Other Providers CONSULTING PHYSICIAN Agapito Silva MD Other Providers CONSULTING PHYSICIAN Slade Steiner, DO Other Providers CONSULTING PHYSICIAN Faith Martinez Other Providers NON-[facility] STAFF PHYSICIAN Tj Christy RDN Other Providers [employer] Frantz Berg MD Other Providers [facility] STAFF PHYSICIAN Suzanne Cedillo, DO Other Providers OSTEOPATHIC DOCTOR Tyson Ruiz, DO Other Providers OSTEOPATHIC DOCTOR Cherelle Reece MD Other Providers [facility] STAFF PHYSICIAN STEFANO Meier Emergency Provider [facility] Jimenez Payne MD Admit Provider [facility] STAFF PHYSICIAN Attending Provider Discharge Potential Discharge Needs: PCP F/U Appt Anticipated Barriers to Discharge: None Identified Patient/Family Education Needs: Review discharge instructions, discuss Ask Me Three Transportation: Private vehicle Plan: Anticipate Merrill will be discharged home when medically cleared with a resumption of services. He currently receives monthly visits from his [facility] nurse and periodic visits from nursing and PT through [facility]. He will follow up with his PCP and plan of care and transport with family. CM will follow and assess for discharge needs. [facility], [facility] All Active Problems (Updated 05/11/24 @ 18:16 by Evi Valenzuela APRN) Diabetes (Chronic) Aspiration pneumonia (Acute) Leukopenia (Acute) On deep vein thrombosis (DVT) prophylaxis (Acute) Sepsis (Acute) Oral candidiasis (Acute) Sepsis syndrome (Acute) PAF (paroxysmal atrial fibrillation) (Chronic) Gram-negative bacteremia (Acute) Cellulitis (Acute) Lower urinary obstructive symptom (Acute) Encephalopathy, hepatic (Chronic) Anemia of chronic disease (Acute) Thrombocytopenia (Chronic) Ventricular ectopy (Acute) Sinus bradycardia (Acute) Leukocytosis (Acute) Hypertension (Chronic) Elevated lactic acid level (Acute) CHF (congestive heart failure) (Chronic) No-show for appointment (Acute) Left rotator cuff tear (Acute) Acute UTI (urinary tract infection) (Acute) Weakness (Acute) Non-ST elevation CA (NSTEMI) (Acute) Pre-syncope (Acute) Frequent falls (Acute) Orthostatic hypotension (Acute) Chronic atrial fibrillation (Chronic) Type 2 diabetes mellitus (Chronic) Hypokalemia (Acute) Bradycardia (Acute) Multiple falls (Acute) Acute metabolic encephalopathy (Acute) Medication monitoring encounter (Acute) ANETTE (obstructive sleep apnea) (Chronic) Chest pain (Acute) CHF exacerbation (Acute) CHF (congestive heart failure) (Chronic) EF 25%- 2023 Medical History Heart failure with reduced ejection fraction Hypothyroidism Small bowel obstruction Lactic acid acidosis Creatinine elevation Acute UTI Anticoagulated COVID Chronic low back pain Recurrent intestinal obstruction History of colon cancer Palliative care encounter Followed by [facility] Chronic anticoagulation Portal hypertension Cirrhosis TIPs placed (?when, [facility]? 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, Dx [facility] as per pt Non-insulin dependent type 2 diabetes mellitus Incontinence Hypertension Scleral icterus Surgical History S/P TIPS (transjugular intrahepatic portosystemic shunt) H/O left hemicolectomy Colostomy in place Social History Smoking/Tobacco Use Status: Former Tobacco Use Smoking risk assessment performed?: Yes Alcohol Intake: former Drug use: Never Substance use type: does not use Housing: house Do you feel safe at home: Yes Do you feel safe in your relationship?: Yes Additional Social history: Lives with , son, and sick [id number] in [place], moved up from [place] in 2019. [place]. SDOH(Care Management) Screening Will the Patient Participate in the Screening?: Unable to obtain
--- NOTE | 2024-05-12 09:07 | PGE_ITS ---
Date of Service Date of service: 05/12/24 Time of Service: 09:07 Assessment and Plan Assessment and plan (1) PAF (paroxysmal atrial fibrillation): Status: Chronic Assessment and plan: No rate control meds listed, spouse will bring med list in AM to confirm but did not visit [facility] med rec ordered (2) Abdominal pain: Status: Resolved Assessment and plan: Reoccuring overnight NPO by Dr. [place], abdominal x-ray completed questioned multiple air?fluid levels that might reflect obstruction or abdominal ileus which recommendation is for CT scan with oral contrast. Surgical consult: Dr. Berg recommended the administration of Gastrografin 120 mL and as per discussion the patient is not a surgical candidate for [facility] pending Stool pathogen PCR and O&P stool ordered (3) Aspiration pneumonia: Status: Acute Assessment and plan: Patient remained afebrile, normotensive without additional oxygen supplementation needed and without respiratory distress Vacomycin given in ED, but MRSA swab ordered later was negative The patient was treated with ceftriaxone and metronidazole as per pharmacy consult Repeated x-ray PA lateral does not show development of any pneumonia foci, blood cultures negative x 24 hours Lactate normalized to 1.4 from 4.1 and 4.5 in the ED; will stop slow IVF Will discontinue antibiotics (4) Leukopenia: Status: Acute Assessment and plan: CBC in AM (5) Diabetes: Status: Chronic Assessment and plan: Metformin on hold d/t lactic acidosis- lactate ar 1.4 this AM Gluc AC and HS with SSI coverage Continue other home management meds (6) Hypomagnesemia: Status: Acute Assessment and plan: was 1.7, replete and now 2.0 (7) Hypertension: Status: Chronic Assessment and plan: on home meds Qualifiers: Hypertension type: primary hypertension Qualified Code(s): I10 - E ssential (primary) hypertension (8) On deep vein thrombosis (DVT) prophylaxis: Status: Acute Assessment and plan: On Eliquis for atrial fibrillation no further pharmacological management required Discussed with Dr. Payne Subjective Subjective Patient reports: feels better, tolerating liquids well, voiding w/o difficulty, flatus, bowel movement (from colostomy) and other (reported that 2 days prior, brushed his teeth with sink water from break down pipes, water was milky white); denies still having pain, diarrhea, nausea, vomiting, shortness of breath or fever Exam Narrative Exam Narrative: Constitutional The patient is in bed comfortable and cooperative during the interview, without acute distress and has obese body habitus HENMT:Facial structures with normal appearance Neuro:alert and oriented to self, person, place time and situation. Resp: Normal respiratory pattern, speaks in full sentences, unlabored breathing, clear lung bilaterally Cardio:irregular rhythm, S1, S2, no murmur, capillary refill<3 sec., positive bilateral radial and dorsal pulses GI: Abdomen is not distended, soft and non tender except at the stoma site when palpated, bowel sounds are present, colostomy bag in place : Negative Costovertebral angle tenderness Back/spine/Pelvis: No back tenderness, normal alignment Integumentary: No skin lesions or rash Extremities: strength 5/5 to bilateral lower and upper extremities Psych: RASS 0, congruent mood and normal affect. Objective Last Vital Signs Temp 37.0 C 05/12/24 07:41 Pulse 75 05/12/24 07:41 Resp 20 05/12/24 07:41 BP 139/52 L 05/12/24 07:41 Pulse Ox 93 05/12/24 07:41 Laboratory Results - last 24 hr 05/11/24 05/11/24 05/11/24 10:39 10:39 10:39 WBC 2.98 L RBC 3.59 L Hgb 11.1 L Hct 32.6 L MCV 91 MCH 30.9 MCHC 34.0 RDW 15.8 H Plt Count 55 L MPV 10.6 Immature Gran % 0.3 Neutrophils % 77.3 Lymphocytes % 10.7 Monocytes % 8.4 Eosinophils % 3.0 Basophils % 0.3 Nucleated RBC % 0.0 Absolute Neutrophils 2.30 Absolute Lymphocytes 0.32 L Absolute Monocytes 0.25 Absolute Eosinophils 0.09 Absolute Basophils 0.01 ESR 13 VBG Lactate 4.1 H* Sodium 143 Potassium 4.2 Chloride 107 Carbon Dioxide 24.5 Anion Gap 11.5 H BUN 13 Creatinine 1.1 Est GFR (CKD-EPI 2020) 69.14 Glucose 158 H Calcium 9.6 Magnesium 1.7 L Cancelled Total Bilirubin 1.44 H Conjugated Bilirubin AST 33 ALT 24 Alkaline Phosphatase 110 Troponin I < 50 Cancelled C-Reactive Protein < 0.50 NT-Pro-B Natriuret Pep Total Protein Albumin Lipase Procalcitonin Urine Color Urine Clarity Urine pH Ur Specific Inverness Urine Protein Urine Ketones Urine Blood Urine Nitrite Urine Bilirubin Urine Urobilinogen Ur Leukocyte Esterase Urine RBC Urine WBC Ur Epithelial Cells Urine Crystals Urine Bacteria Urine Casts Urine Mucus Urine Other Ur Culture Indicated? Urine Glucose MRSA (TEM-PCR) 05/11/24 05/11/24 05/11/24 10:39 10:39 13:13 WBC RBC Hgb Hct MCV MCH MCHC RDW Plt Count MPV Immature Gran % Neutrophils % Lymphocytes % Monocytes % Eosinophils % Basophils % Nucleated RBC % Absolute Neutrophils Absolute Lymphocytes Absolute Monocytes Absolute Eosinophils Absolute Basophils ESR VBG Lactate Sodium Potassium Chloride Carbon Dioxide Anion Gap BUN Creatinine Est GFR (CKD-EPI 2020) Glucose Calcium Magnesium Total Bilirubin Conjugated Bilirubin AST ALT Alkaline Phosphatase Troponin I C-Reactive Protein Cancelled NT-Pro-B Natriuret Pep Total Protein 6.3 L Albumin 3.0 L Lipase 71 Cancelled Procalcitonin < 0.1 Urine Color Yellow Urine Clarity Clear Urine pH 6.0 Ur Specific [place] 1.020 Urine Protein 100 H Urine Ketones Trace H Urine Blood Small H Urine Nitrite Negative Urine Bilirubin Negative Urine Urobilinogen 1.0 H Ur Leukocyte Esterase Negative Urine RBC 3-5 H Urine WBC 0-2 Ur Epithelial Cells Negative Urine Crystals Negative Urine Bacteria Rare Urine Casts Negative Urine Mucus Negative Urine Other Negative Ur Culture Indicated? No Urine Glucose >=1000 H MRSA (TEM-PCR) 05/11/24 05/11/24 05/11/24 13:28 13:37 17:05 WBC RBC Hgb Hct MCV MCH MCHC RDW Plt Count MPV Immature Gran % Neutrophils % Lymphocytes % Monocytes % Eosinophils % Basophils % Nucleated RBC % Absolute Neutrophils Absolute Lymphocytes Absolute Monocytes Absolute Eosinophils Absolute Basophils ESR VBG Lactate 4.5 H* Sodium Potassium Chloride Carbon Dioxide Anion Gap BUN Creatinine Est GFR (CKD-EPI 2020) Glucose Calcium Magnesium Total Bilirubin Conjugated Bilirubin 0.5 H AST ALT Alkaline Phosphatase Troponin I < 50 C-Reactive Protein NT-Pro-B Natriuret Pep 205 Total Protein Albumin Lipase Procalcitonin Urine Color Urine Clarity Urine pH Ur Specific Inverness Urine Protein Urine Ketones Urine Blood Urine Nitrite Urine Bilirubin Urine Urobilinogen Ur Leukocyte Esterase Urine RBC Urine WBC Ur Epithelial Cells Urine Crystals Urine Bacteria Urine Casts Urine Mucus Urine Other Ur Culture Indicated? Urine Glucose MRSA (TEM-PCR) Negative 05/12/24 06:50 WBC 2.98 L RBC 3.52 L Hgb 10.6 L Hct 32.3 L MCV 92 MCH 30.1 MCHC 32.8 RDW 15.8 H Plt Count 58 L MPV 11.3 H Immature Gran % 0.7 Neutrophils % 70.2 Lymphocytes % 13.4 Monocytes % 9.7 Eosinophils % 5.7 Basophils % 0.3 Nucleated RBC % 0.0 Absolute Neutrophils 2.09 Absolute Lymphocytes 0.40 L Absolute Monocytes 0.29 Absolute Eosinophils 0.17 Absolute Basophils 0.01 ESR VBG Lactate Sodium 139 Potassium 3.7 Chloride 106 Carbon Dioxide 23.2 Anion Gap 9.8 BUN 13 Creatinine 1.1 Est GFR (CKD-EPI 2020) 69.14 Glucose 171 H Calcium 9.0 Magnesium 2.0 Total Bilirubin Conjugated Bilirubin AST ALT Alkaline Phosphatase Troponin I C-Reactive Protein NT-Pro-B Natriuret Pep Total Protein Albumin Lipase Procalcitonin Urine Color Urine Clarity Urine pH Ur Specific Inverness Urine Protein Urine Ketones Urine Blood Urine Nitrite Urine Bilirubin Urine Urobilinogen Ur Leukocyte Esterase Urine RBC Urine WBC Ur Epithelial Cells Urine Crystals Urine Bacteria Urine Casts Urine Mucus Urine Other Ur Culture Indicated? Urine Glucose MRSA (TEM-PCR) Time Spent with Patient Time Spent with Patient: >50 minutes Time was spent: preparing to see the patient(eg.review tests), obtaining and/or reviewing separately otained hiistory, ordering medications,tests, procedures, referring, communicating with other health rn homecare, indepentently interpreting results, counseling the patient and care coordination
[2024-05-12] MEDS: Apixaban 5 MG TAB PO ×2 (10:05→21:11)
[2024-05-12] MEDS: Diclofenac 1% Gel 100 GM TUBE TP (10:06)
[2024-05-12] MEDS: Furosemide 20 MG TAB PO (10:08)
[2024-05-12] MEDS: Empaglifozin 25 MG TAB PO (10:08)
[2024-05-12] MEDS: Docusate Sodium 100 MG CAP PO ×2 (10:08→21:11)
[2024-05-12] MEDS: Pantoprazole 40 MG TABCR PO (10:09)
[2024-05-12] MEDS: Levothyroxine 100 MCG TAB PO (10:09)
[2024-05-12] MEDS: Lactulose 20 GM/30 ML CUP PO ×2 (10:09→21:07)
[2024-05-12] MEDS: Losartan 50 MG TAB PO (10:09)
[2024-05-12] MEDS: Pregabalin 50 MG CAP PO ×2 (10:09→21:10)
[2024-05-12] MEDS: Rifaximin 550 MG TAB PO ×2 (10:10→21:10)
[2024-05-12] MEDS: Spironolactone 25 MG TAB PO (10:10)
[2024-05-12] MEDS: Venlafaxine 150 MG CAPCR PO (10:10)
[2024-05-12] MEDS: Tamsulosin 0.4 MG CAPCR PO (10:10)
[2024-05-12 11:13] VITALS: BP 150/57; PULSE 71; RESP 18; TEMP 37.1; O2SAT 94
[2024-05-12] MEDS: Gastrografin 120 ML BTL PO (11:47)
[2024-05-12 11:50] LABS: Lactate 1.4 mmol/L (0.6-1.4)
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
[2024-05-12 14:55] VITALS: BP 143/69; PULSE 68; RESP 20; TEMP 36.8; O2SAT 93
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
[2024-05-12 19:10] VITALS: TEMP 36.5
[2024-05-12 19:28] VITALS: BP 170/90; PULSE 77; RESP 18; TEMP 36.5; O2SAT 94
[2024-05-12] MEDS: Prazosin 5 MG CAP 10 MG PO (21:07)
[2024-05-12] MEDS: Ondansetron 4 MG/2 ML VIAL IVP (21:08)
[2024-05-12] MEDS: HYDROmorphone 2 MG/ML SYR IVP (21:09)
[2024-05-12] MEDS: Melatonin 3 MG TAB 6 MG PO (21:10)
[2024-05-12] MEDS: Rosuvastatin 20 MG TAB 40 MG PO (21:11)
[2024-05-12] MEDS: Insulin Aspart 300 UNITS/3 ML PEN SC (21:24)
--- NOTE | 2024-05-12 21:45 | TELEP.MEDR_ITS ---
Date of service: 05/12/24 Time of Service: 21:46 Telepharmacy Home Med Rec Allergies Allergies: Penicillins Allergy (Mild, Verified 05/11/24 16:03) Itching morphine Adverse Reaction (Severe, Verified 05/11/24 16:03) vomiting Interview Person Interviewed: Clary Quality Quality of Interview/Accuracy of Medication List: Fair Sources Sources used to compile medication list: [facility] Medication List and PCP/Specialist List ([place] Med List) Changes made to Home Medication List: ADDITIONS: Clobetasol, PRN Furosemide, Carvedilol, Metformin ER DELETIONS: Metformin IR, CHANGES: APAP dose, Diclofenac to PRN, Pantoprazole to PRN, Additional Notes Additional Notes: required multiple phone calls to get med list due to memory issues. Read [place] med list over the phone with clarifications when needed Recommended Changes Attestation: The home medication list is now updated to the best of my knowledge and is ready to be reconciled by the provider. Please contact the TelePharmacy Medication Reconciliation Pharmacist at for any questions.
[2024-05-13 00:30] VITALS: BP 110/60; PULSE 66; RESP 18; TEMP 36.6; O2SAT 93
[2024-05-13 05:02] VITALS: BP 170/80; PULSE 78; RESP 18; TEMP 36.4; O2SAT 92
[2024-05-13] MEDS: Levothyroxine 100 MCG TAB PO (05:57)
[2024-05-13 07:01] LABS: Abs Immature Grans 0.01 10^3/uL (0.0-0.06); Absolute Basophil Count 0.02 10^3/uL (0.0-0.2); Absolute Eosinophil Count 0.29 10^3/uL (0.0-0.7); Absolute Lymphocyte Count 0.69 10^3/uL (1.2-3.4); Absolute Monocyte Count 0.42 10^3/uL (0.1-0.8); Absolute Neutrophil Count 2.38 10^3/uL (1.2-6.7); Basophils % 0.5 %; Eosinophils % 7.6 %; HCT 37.5 % (40.0-50.0); HGB 12.1 g/dL (13.5-17.5); Immature Grans % 0.3 %; Lymphocytes % 18.1 %; MCH 30.4 pg (27.0-33.0); MCHC 32.3 % (32.0-36.0); MCV 94 fL (80-95); MPV 10.9 fL (8.0-11.0); Neutrophils % 62.5 %; RBC 3.98 10^6/uL (4.36-5.78); RDW 15.9 % (11.8-14.1); RDW-SD 55.9 fL; WBC 3.81 10^3/uL (4.4-10.8)
[2024-05-13 07:14] LABS: Anion Gap 10.1 mmol/L (3-11); BUN 11 mg/dL (7-18); CO2 23.9 mmol/L (21.0-32.0); CREATININE 1.2 mg/dL (0.70-1.30); Calcium 9.1 mg/dL (8.5-10.1); Chloride 107 mmol/L (98-107); Estimated GFR 62.29 (mL/min/1.73m2); Glucose 160 mg/dL (74-106); Potassium 3.6 mmol/L (3.5-5.1); Sodium 141 mmol/L (136-145)
[2024-05-13 07:23] LABS: Platelet Count 72 10^3/uL (130-400)
[2024-05-13 07:54] VITALS: BP 137/64; PULSE 58; RESP 18; TEMP 36.5; O2SAT 94
[2024-05-13] MEDS: Pantoprazole 40 MG TABCR PO (07:55)
[2024-05-13] MEDS: Docusate Sodium 100 MG CAP PO (07:55)
[2024-05-13] MEDS: Lactulose 20 GM/30 ML CUP PO ×2 (07:55→13:49)
[2024-05-13] MEDS: Apixaban 5 MG TAB PO (07:55)
[2024-05-13] MEDS: Cholecalciferol (Vitamin D3) 1,000 UNIT TAB 1000 UNITS PO (07:56)
[2024-05-13] MEDS: Ferrous Sulfate 325 MG TAB PO (07:56)
[2024-05-13] MEDS: Empaglifozin 25 MG TAB PO (07:56)
[2024-05-13] MEDS: Spironolactone 25 MG TAB PO (07:56)
[2024-05-13] MEDS: Tamsulosin 0.4 MG CAPCR PO (07:56)
[2024-05-13] MEDS: Rifaximin 550 MG TAB PO (07:56)
[2024-05-13] MEDS: Venlafaxine 150 MG CAPCR PO (07:56)
[2024-05-13] MEDS: Losartan 50 MG TAB PO (07:57)
[2024-05-13] MEDS: Pregabalin 50 MG CAP PO (07:57)
[2024-05-13] MEDS: Furosemide 20 MG TAB PO (07:57)
[2024-05-13] MEDS: Normal Saline Flush 10 ML SYR IVP (08:00)
[2024-05-13] MEDS: Insulin Aspart 300 UNITS/3 ML PEN SC ×2 (08:13→12:05)
--- NOTE | 2024-05-13 09:47 | PGE_ITS ---
Date of Service Date of service: 05/13/24 Time of Service: 09:48 Assessment and Plan Assessment and plan (1) PAF (paroxysmal atrial fibrillation): Status: Chronic Assessment and plan: No rate control meds listed, spouse will bring med list in AM to confirm but did not visit [facility] med rec ordered (2) Abdominal pain: Status: Resolved Assessment and plan: Reoccuring overnight NPO by Dr. [place], abdominal x-ray completed questioned multiple air?fluid levels that might reflect obstruction or abdominal ileus which recommendation is for CT scan with oral contrast. Surgical consult: Dr. Berg recommended the administration of Gastrografin 120 mL and as per discussion the patient is not a surgical candidate for [facility] pending Stool pathogen PCR and O&P stool ordered (3) Aspiration pneumonia: Status: Acute Assessment and plan: Patient remained afebrile, normotensive without additional oxygen supplementation needed and without respiratory distress Vacomycin given in ED, but MRSA swab ordered later was negative The patient was treated with ceftriaxone and metronidazole as per pharmacy consult Repeated x-ray PA lateral does not show development of any pneumonia foci, blood cultures negative x 24 hours Lactate normalized to 1.4 from 4.1 and 4.5 in the ED; will stop slow IVF Will discontinue antibiotics (4) Leukopenia: Status: Acute Assessment and plan: CBC in AM (5) Diabetes: Status: Chronic Assessment and plan: Metformin on hold d/t lactic acidosis- lactate ar 1.4 this AM Gluc AC and HS with SSI coverage Continue other home management meds (6) Hypomagnesemia: Status: Acute Assessment and plan: was 1.7, replete and now 2.0 (7) Hypertension: Status: Chronic Assessment and plan: on home meds Qualifiers: Hypertension type: primary hypertension Qualified Code(s): I10 - E ssential (primary) hypertension (8) On deep vein thrombosis (DVT) prophylaxis: Status: Acute Assessment and plan: On Eliquis for atrial fibrillation no further pharmacological management required Discussed with Dr. Payne Subjective Subjective Patient reports: feels better, tolerating liquids well, tolerating a regular diet, voiding w/o difficulty, flatus, no bowel movement and afebrile; denies diarrhea, blood in stool, nausea, vomiting or shortness of breath Exam Narrative Exam Narrative: Constitutional The patient is in bed comfortable without acute distress and has obese body habitus HENMT:Facial structures with normal appearance Neuro:alert and oriented to self, person, place time and situation. Resp:Clear lung bilaterally Cardio:irregular rhythm, S1, S2, no murmur, positive bilateral radial and dorsal pulses GI: Abdomen is not distended, soft and non guarding non-tender , bowel sounds are present, colostomy bag in place with output Extremities: strength 5/5 to bilateral lower and upper extremities Psych: RASS 0, congruent mood and normal to anxious affect. Objective Last Vital Signs Temp 36.5 C 05/13/24 07:54 Pulse 58 L 05/13/24 07:54 Resp 18 05/13/24 07:54 BP 137/64 05/13/24 07:54 Pulse Ox 94 05/13/24 07:54 Laboratory Results - last 24 hr 05/12/24 05/13/24 11:41 06:17 WBC 3.81 L RBC 3.98 L Hgb 12.1 L Hct 37.5 L MCV 94 MCH 30.4 MCHC 32.3 RDW 15.9 H Plt Count 72 L MPV 10.9 Immature Gran % 0.3 Neutrophils % 62.5 Lymphocytes % 18.1 Monocytes % 11.0 Eosinophils % 7.6 Basophils % 0.5 Nucleated RBC % 0.0 Absolute Neutrophils 2.38 Absolute Lymphocytes 0.69 L Absolute Monocytes 0.42 Absolute Eosinophils 0.29 Absolute Basophils 0.02 VBG Lactate 1.4 Sodium 141 Potassium 3.6 Chloride 107 Carbon Dioxide 23.9 Anion Gap 10.1 BUN 11 Creatinine 1.2 Est GFR (CKD-EPI 2020) 62.29 Glucose 160 H Calcium 9.1
--- NOTE | 2024-05-13 10:10 | W.NUTRFU ---
Date of service: 05/13/24 Time of Service: 10:11 Nutrition Note NOTE: Pt admitted with PAF, abd pain/possible bowel obst., aspiration PNA with a PMH including DMII - on max does of jardiance and metformin at home with most recent a1c 8.2 last December. Pt advanced from NPO due to suspect bowel obs, to clears and now CHH/HH diet. FPG 160 this morning, 171 yesterday and 158 05/11. metformin on hold currently with other home diabetes meds continued and ordered for sliding scale at meals and 2200 with 5 unit glargine HS. Declined intensive education today - will continue to offer and suggest outpatient services to help with meal planning. will continue to monitor Time Spent in Nutritional Counseling and Treatment: 10 min
[2024-05-13] MEDS: metFORMIN C.R. 500 MG TABCR PO (10:40)
[2024-05-13] MEDS: Insulin Glargine 300 UNITS/3 ML PEN SC (10:43)
--- NOTE | 2024-05-13 10:58 | NUR.NOTE ---
Nursing Note: pt states that he is feeling dizzy. Pt believes this is vertigo that began yesterday evening. Provider notified.
[2024-05-13 11:11] VITALS: BP 158/66; PULSE 61; RESP 17; TEMP 36.5; O2SAT 97
[2024-05-13] MEDS: Docusate Sodium 100 MG CAP 200 MG PO (11:43)
[2024-05-13 11:52] LABS: Campylobacter PCR Negative (Negative); Salmonella PCR Negative (Negative); Shiga Toxin PCR Negative (Negative); Shigella/Enteroinvasive Ecoli Negative (Negative)
[2024-05-13] MEDS: Simethicone 80 MG CHEW 40 MG PO (12:51)
--- NOTE | 2024-05-13 12:55 | IN_ITS ---
PT Notes Visit Reasons: lactic acidosis,aspiration pneumonia,leukopenia Physical Therapy Inpatient Initial Evaluation Date: 05/13/2024 Referring Doctor: Evi Valenzuela NP PT Orders: PT CONSULT: Safety Consult for D/C Precautions: Fall. Standard. Activity as tolerated. Colostomy bag in place. Patient Profile/Admitting Diagnosis:? Osmar is a 79-year-old male patient with past medical history significant for colon cancer with colostomy in place who presented to the Ed on 05/11/2024 due to decreased ostomy output, difficulty voiding urine, and nasuea. He is admitted for management of PAF, abdominal pain, aspiration pneumonia, leukopenia, and hypomagnesemia. PMHX: All Active Problems (Updated 03/04/24 @ 21:39 by Elia Arizmendi) Lower urinary obstructive symptom (Acute) Encephalopathy, hepatic (Acute) Anemia of chronic disease (Acute) Thrombocytopenia (Chronic) Ventricular ectopy (Acute) Sinus bradycardia (Acute) Leukocytosis (Acute) Hypertension (Chronic) Elevated lactic acid level (Acute) CHF (congestive heart failure) (Chronic) No-show for appointment (Acute) Left rotator cuff tear (Acute) Acute UTI (urinary tract infection) (Acute) Weakness (Acute) Non-ST elevation DC (NSTEMI) (Acute) Pre-syncope (Acute) Frequent falls (Acute) Orthostatic hypotension (Acute) Chronic atrial fibrillation (Chronic) Type 2 diabetes mellitus (Chronic) Hypokalemia (Acute) Bradycardia (Acute) Multiple falls (Acute) Acute metabolic encephalopathy (Acute) Medication monitoring encounter (Acute) ANETTE (obstructive sleep apnea) (Chronic) Chest pain (Acute) CHF exacerbation (Acute) CHF (congestive heart failure) (Chronic) EF 25%- 2023 Medical History (Updated 03/04/24 @ 21:39 by Elia Arizmendi) Heart failure with reduced ejection fraction Hypothyroidism Small bowel obstruction Lactic acid acidosis Creatinine elevation Acute UTI Anticoagulated COVID Chronic low back pain Recurrent intestinal obstruction History of colon cancer Palliative care encounter [facility] CareChronic anticoagulation Portal hypertension Cirrhosis TIPs placed (?when, [facility] [facility]?)Confusion Colon cancer Depression Endocarditis September 2022, Dx [facility] as per pt Non-insulin dependent type 2 diabetes mellitus Incontinence Hypertension Scleral icterus Surgical History S/P TIPS (transjugular intrahepatic portosystemic shunt) H/O left hemicolectomy Colostomy in place Social History/Home Situation: Osmar lives with and son in a private home with a ramp to enter.? has not been doing well herself and cannot help patient physically. Son may be available as needed during the day. Ambulatory inside the house using FWW. Has a stair lift leading to the bedroom upstairs. Equipment Owned/DME: 4WW, FWW, SPC, scooter, stair lift Subjective: Agreeable to mobility assessment prior to discharge this afternoon. Complained of being mildly dizzy and having blurry vision all the time, feels like he needs to see the eye doctor. Objective: General Observation: Supine in bed. Telemetry monitoring in place. Colostomy bag in place. Mental Status: Alert and oriented as to person, place, time, and purpose. Able to pay attention, focus, and respond appropriately. Pain: None reported Vital Signs: Closely monitored by nursing staff ROM: Right Upper Extremity: ? Shoulder Flexion WFL. Shoulder abduction WFL. Elbow flexion WFL. Wrist flexion WFL. Functional opening and closing of hand WFL. Left Upper Extremity:? Shoulder Flexion allows up to 90 degrees only. Shoulder abduction allows up to 80 degrees only. Elbow flexion WFL. Wrist flexion WFL. Functional opening and closing of hand WFL. Right Lower Extremity: Hip flexion lacks the last 25% discomfort. Hip abduction WFL. Knee flexion 20 degrees to 90 degrees. Knee extension -20 degrees. Ankle dorsiflexion to neutral only. Ankle plantarflexion WFL. Left Lower Extremity: Hip flexion WFL. Hip abduction WFL. Knee flexion WFL. Ankle dorsiflexion to neutral only. Ankle plantarflexion WFL. Strength: Right Upper Extremity: Shoulder flexors 4-/5. Shoulder abductors 4-/5. Elbow flexors 4-/5. Elbow extensors 4-/5. Shirring Machine Operator Automatic strong. Left Upper Extremity: Shoulder flexors 3-/5. Shoulder abductors 3-/5. Elbow flexors 4-/5. Elbow extensors 4-/5. Shirring Machine Operator Automatic strong. Right Lower Extremity: Hip flexors 4-/5. Hip abductors 4-/5. Knee flexors 5-/5. Knee extensors 4-/5. Ankle dorsiflexors 3-/5. Ankle plantarflexors 4-/5. Left Lower Extremity: Hip flexors 4-/5. Hip abductors 4-/5. Knee flexors 5-/5. Knee extensors 4-/5. Ankle dorsiflexors 3-/5. Ankle plantarflexors 4-/5. Bed Mobility/Transfers: Moderate cueing provided for use of B hands as needed for support, movement sequence, Ad management, and and posture to reduce fall risk and minimize pain report. Supine to sit supervision Sit to stand supervision Stand to sit supervision Gait: Instructed patient with level surface ambulation of 250 feet + 150 feet requiring stand by assist using front-wheeled walker. Moderate verbal cueing provided for walker management, directional change, and overall safety. Balance: Static Sitting: Normal Dynamic Sitting: Normal Static Standing: Fair Dynamic Standing: Fair Special Tests: Mobility Limitations Standardized Measure [facility] 6 clicks Basic Mobility Inpatient Short Form: Raw Score: 23 ? CMS Score: 11% deficit? ? ? 4-Stage Balance test: Feet together 10 seconds [id number] 10 seconds Full tandem <10 seonds One-legged stance <10 seconds Informed Consent/Education:? Patient was instructed in purpose of PT consult and plan of care. Agreeable to proceed with established PT POC to achieve personal goals. ASSESSMENT: At risk for falls, requires use of FWW for all mobility ADL performance. Patient presents with clinical signs and symptoms consistent with current/admitting diagnoses that have resulted to mobility limitations, gait instability, generalized weakness, and overall ADL decline as demonstrated by the following impairment level findings: 1.? Impaired standing balance 2.? Impaired activity tolerance Impairments are contributing to the following functional limitations: 1.? Difficulty with ambulation without assistive device 2.? Increased completion time for mobility ADL performance 3.? Increased risk for falls Patient is assessed as a 70083 moderate complexity based on the following: History: 78-year-old male with past medical history as indicated above Examination: Demonstrable impairment in strength, balance, and mobility level with underlying impairments and functional limitations as exhibited above Presentation: Evolving Decision Makin moderate complexity Goals: Goals X1 week 1. Supine-Sit independent 2. Sit-Supine independent 3. Sit-Stand independent 4. Stand-Sit independent 5. Bed-Chair independent 6. Chair-Bed independent 7. Independent gait on level surface with use of FWW for at least 300 feet without report of pain nor dyspnea 8. Good static and dynamic standing balance/tolerance Plan of Care/Treatment Plan: Patient will highly benefit from skilled physical therapy services including functional mobility training, bed mobility/transfer training, gait and balance training, therapeutic exercises, therapeutic activity, caregiver/staff/family education and training 1x/day, 7 days/week x 1 week. Plan of care has been reviewed with the WELFARE SUPERVISOR providing the service under Physical Therapy direction. Initiate Physical Therapy intervention for strengthening, bed mobility, transfers, gait, stairs, balance training, use of assistive device. DISCHARGE RECOMMENDATIONS: [] ? Home with no services [] [X] ? Home with services. RESUME home health PT services in order to progress mobility level using least restrictive assistive ambulatory device, assess home safety, identify additional equipment needs, and establish a functional maintenance program that will increase ability of patient to remain at home. [] ? Home with outpatient PT [] [] ? SNF for continued rehabilitation [] [] ? [facility] [] [] ? SNF versus LTC based on ability to participate and progress [] TREATMENT CODE/TIME: 89583 x 21 minutes for 1 unit (12:55-13:16). Thank you for the opportunity to participate in the care of this patient. Nita Denis PT, DPT, CLT [facility] [place], [place]
--- NOTE | 2024-05-13 14:07 | W.PM.DS.N ---
Date of service: 05/13/24 Time of Service: 14:08 DS: Diagnosis Discharge Diagnosis (1) PAF (paroxysmal atrial fibrillation): Status: Chronic (2) Abdominal pain: Status: Resolved (3) Aspiration pneumonia: Status: Acute (4) Leukopenia: Status: Acute (5) Diabetes: Status: Chronic (6) Hypomagnesemia: Status: Acute (7) Hypertension: Status: Chronic Discharge Plan Disposition Patient Disposition: Home W/Home Health Services Condition: Improving Discharge Details Reason For Visit: lactic acidosis,aspiration pneumonia,leukopenia Admit Date/Time: 05/11/24 15:22 Admit Provider: Jimenez Payne Attending Provider: Jimenez Payne Primary Care Provider: Maryann Whitt Hospital Course Hospital Course: 79-year-old male patient with past medical history of hepatic encephalopathy, thrombocytopenia, hypertension, cirrhosis of the liver with a history of TIPS procedure and portal hypertension, congestive heart failure, coronary artery disease, urinary tract infection close, atrial fibrillation on Eliquis, type 2 diabetes not on insulin but on metformin, frequent bowel obstructions with self resolution within 24 hours with colostomy presented to the ED [facility] on 05/11/2024 for evaluation of abdominal pain nausea, difficulty voiding and decreased colostomy output with the last recorded output on 05/10/2024 around 3 PM. At the time the patient denied fever, upper respiratory infection symptoms, chills, night sweats, change in vision, emesis, bloody stool but reported coughing on oral fluid intake at baseline. The patient uses 2 L of oxygen at night at home. Workup in the ED was significant for initial lactate level at 4.1 which repeated level at 4.5 after 1 L of IV fluids, H&H of 11.1 and 32.6, WBC of 2.98 lower than baseline, platelet at 55 and magnesium at 1.7; procalcitonin was negative. In the emergency room, patient colostomy hide resume output. Chest x-ray was negative for pleural effusion and other acute findings. CT of the abdomen and pelvis showed multiple abnormal appearing small bowel loops in the mid-abdominal but nomesenteric ischemia sign or small bowel obstruction seen as per discussion between Mikael AGARWAL and radiologist Dr. Bauer. No ascites seen, hepatic cirrhosis and splenomegaly were evident. In the emergency room the patient received IV acetaminophen for pain, and IV antibiotics. ED provider also discussed the patient with [facility] in [place] transfer staff at 1425 but they cannot accept admission due to capacity. The hospitalist service was consulted and the patient was admitted for evaluation and management of lactic acidosis, leukopenia, possible aspiration pneumonia. The ED provider administer IV Lasix 40 mg once the patient was accepted by the hospitalist service; added BNP was 205. During the stay, metformin was held due to suspicion of metabolic acidosis associated with metformin. The patient received slow IV hydration, ceftriaxone and metronidazole pending chest x-ray the next day. The patient had 1 episode of abdominal pain during the night but with continuous colostomy output. The patient described the pain as transient intermittent gas like pain. X-ray was completed revealing fluid and gas level. Surgery was consulted and after administration of gastrografin and imaging, no obstruction was revealed. The patient tolerated clear liquids and resumed a regular diet which was also tolerated. Repeated PA lateral chest x-ray did not show any acute findings, the patient remained on room air without respiratory distress or respiratory symptoms. IV antibiotics were stopped. The patient mentioned brushing his teeth with sink water while water pipes were broken around his area; stool PCR and ova parasite sent and pending to be followed up by primary care practitioner. The patient has no hematochezia, no fever, no profuse ongoing diarrhea. The patient will be discharged home today with daily morning Lantus 10 units subcutaneous injection which requires teaching by home health nursing. This will be a resumption of nursing. Metformin dose has been decreased with further management of diabetic medicines as per primary care practitioner. Surgery recommended stool softener and Colace twice daily has been ordered. Other surgery recommendations include referral to tertiary care center for gastroenterology due to complicated GI surgery history and hepatology due to cirrhosis of the liver and TIPS procedure history. Referrals to be made by [facility] primary care provider as the patient is a [facility] patient. The patient is not a candidate for surgery and anesthesia at [facility] as per discussion with surgery. Other chronic condition has been manage as per home medicine regimen. Recommendation given to patient to keep hydrated and to take his bowel management medicines. PT evaluation recommendation for home health PT services in order to progress mobility level using least restrictive assistive ambulatory device, assess home safety, identify additional equipment needs, and establish a functional maintenance program that will increase ability of patient to remain at home. The patient will be discharged home today with his resumption of home health for nursing for compliance and education with new medicines as well as monitoring worsening of medical condition and new home health physical therapy as per inpatient PT and to regain strength. The patient will need to follow-up with his primary care practitioner within 7 days of discharge. Discussed with Dr. Payne Home Meds and New Rx's Prescriptions: New docusate sodium [Colace] 100 mg capsule 100 mg PO BID Qty: 60 0RF simethicone 80 mg tablet,chewable 80 mg PO BID-QID PRNQty: 90 0RF insulin glargine [Lantus Solostar U-100 Insulin] 100 unit/mL (3 mL) insulin pen 10 unit subcut QAM Qty: 15 0RF Continued prazosin 5 mg Capsule 10 mg PO QHS pantoprazole 40 mg Tablet,Delayed Release (Dr/Ec) 40 mg PO DAILY PRN pregabalin 50 mg Capsule 50 mg PO BID Eliquis 5 mg Tablet 5 mg PO BID nitroglycerin 0.4 mg Tablet, Sublingual 0.4 mg sublingual Q5 MIN PRN X3 PRNQty: 30 0RF miconazole nitrate 2 % Powder 1 applic TOPICAL BID PRN rifaximin 550 mg Tablet 550 mg PO BID docusate sodium [Colace] 100 mg Capsule 100 mg PO BID Qty: 60 0RF tamsulosin 0.4 mg Capsule 0.4 mg PO DAILY ferrous sulfate 325 mg (65 mg iron) Tablet 325 mg PO DAILY empagliflozin 25 mg Tablet 25 mg PO DAILY furosemide [Lasix] 20 mg tablet 20 mg PO QAM levothyroxine 200 mcg Tablet 100 mcg PO QAM Qty: 0 0RF spironolactone 25 mg Tablet 25 mg PO DAILY Qty: 30 0RF cholecalciferol (vitamin D3) 25 mcg (1,000 unit) capsule 25 mcg PO DAILY diclofenac sodium [Arthritis Pain (diclofenac)] 1 % gel 2 g topical QID PRN Rx Instructions: apply to single elbow, wrist or hand; for hand includes palm/fingers/back of hand losartan 50 mg tablet 50 mg PO DAILY venlafaxine 150 mg capsule,extended release 24hr 150 mg PO DAILY lactulose 20 gram/30 mL Solution 20 g PO QD-TID Qty: 1800 11RF Rx Instructions: to maintain colostomy output of 3-4 bags per day rosuvastatin [Crestor] 20 mg Tablet 40 mg PO QPM Qty: 0 0RF furosemide 20 mg tablet 20 mg PO DAILY PRN (Reason: weight gain) Rx Instructions: In Addition to scheduled dose carvedilol phosphate 10 mg capsule, ER multiphase 24 hr 10 mg PO QHS Rx Instructions: must administer with a meal/food clobetasol 0.05 % cream 1 applic topical DAILY acetaminophen [Tylenol] 325 mg Capsule 975 mg PO Q8H MDD 3000 PRN Changed metformin 500 mg tablet extended release 24hr 500 mg PO DAILY Qty: 30 0RF Discharge Instructions Referrals: Maryann Whitt [Primary Care Provider] - (Please call to make a follow-up appointment within 7 days of discharge. ) Activity:: Activity as Tolerated Equipment/Supplies:: Walker Diet:: heart healthy diabetic, Discharge Orders Discharge Orders: Discharge Order (Routine); Ordered 05/13/24 Ordered By: Evi Valenzuela DS: Summary Time Spent with Patient providing and/or coordinating discharge services: Greater than 30 minutes Status at Discharge Functional status at discharge: uses cane/walker Overall status at discharge: patient is progressing back to baseline Mental Status: mental status grossly normal Speech and Movement: speech and movement normal Mood: congruent mood Affect: normal affect Quality:SDOH Health Related Social Needs: Health related social needs transpo insecurity Exam Narrative Exam Narrative: Constitutional The patient is in bed comfortable without acute distress and has obese body habitus HENMT:Facial structures with normal appearance Neuro:alert and oriented to self, person, place time and situation. Resp:Clear lung bilaterally Cardio:irregular rhythm, S1, S2, no murmur, positive bilateral radial and dorsal pulses GI: Abdomen is not distended, soft and non guarding non-tender , bowel sounds are present, colostomy bag in place with output Extremities: strength 5/5 to bilateral lower and upper extremities Psych: RASS 0, congruent mood and normal to anxious affect. Psych Mental Status: mental status grossly normal Speech and Movement: speech and movement normal Mood: congruent mood Affect: normal affect DS: Data Vitals/I&O Vitals and I&O: Vital Signs Temperature 36.5 C 05/13/24 11:11 Temperature Source Temporal Artery Scan 05/13/24 11:11 Pulse 61 05/13/24 11:11 Pulse Rhythm Regular 05/13/24 07:50 Pulse 79 05/11/24 16:30 Respiratory Rate 17 05/13/24 11:11 Respiratory Effort Normal 05/13/24 07:50 Respiratory Depth Normal 05/13/24 07:50 Respiratory Pattern Normal 05/13/24 07:50 Blood Pressure 158/66 H 05/13/24 11:11 Blood Pressure Mean 117 05/11/24 15:46 Blood Pressure Position Supine 05/11/24 10:21 Pulse Oximetry 97 05/13/24 11:11 Oxygen Delivery Method Room Air 05/13/24 11:11 Oxygen Flow Rate 0 05/13/24 11:11 Pain Level 0 05/13/24 11:11 Comment Nurse notified about blood pressure. 05/13/24 11:11 Intake & Output 05/12/24 05/13/24 05/13/24 23:59 11:59 23:59 Intake Total 670 / 1483.75 100 / 340 240 / 340 Output Total 275 / 1275 Balance 395 / 208.75 100 / 340 240 / 340 Intake: IV 670 / 1483.75 100 / 100 Oral 240 / 240 Output: Urine 275 / 975 Other: Urine Color Yellow Urine Appearance Cloudy Comment per patient someone dumped his urinal Voiding Methods Urinal Data Completed and Pending Labs on day of discharge: Labs from last 24 hours 05/13/24 05/12/24 06:17 12:30 WBC 3.81 L RBC 3.98 L Hgb 12.1 L Hct 37.5 L MCV 94 MCH 30.4 MCHC 32.3 RDW 15.9 H Plt Count 72 L MPV 10.9 Immature Gran % 0.3 Neutrophils % 62.5 Lymphocytes % 18.1 Monocytes % 11.0 Eosinophils % 7.6 Basophils % 0.5 Nucleated RBC % 0.0 Absolute Neutrophils 2.38 Absolute Lymphocytes 0.69 L Absolute Monocytes 0.42 Absolute Eosinophils 0.29 Absolute Basophils 0.02 Sodium 141 Potassium 3.6 Chloride 107 Carbon Dioxide 23.9 Anion Gap 10.1 BUN 11 Creatinine 1.2 Est GFR (CKD-EPI 2020) 62.29 Glucose 160 H Calcium 9.1 Stool Campylobacter PCR Negative Stool Salmonella PCR Negative Stool Shigella PCR Negative Shiga Toxin (PCR) Negative Preliminary micro results at discharge 05/11/24 11:17 Blood Culture - Preliminary Blood NO GROWTH 48 HOURS 05/11/24 10:55 Blood Culture - Preliminary Blood NO GROWTH 48 HOURS PFSH All Active Problems (Updated 05/13/24 @ 12:09 by Evi Valenzuela APRN) Bowel obstruction (Acute) Hypomagnesemia (Acute) Diabetes (Chronic) Aspiration pneumonia (Acute) Leukopenia (Acute) On deep vein thrombosis (DVT) prophylaxis (Acute) Sepsis (Acute) Oral candidiasis (Acute) Sepsis syndrome (Acute) PAF (paroxysmal atrial fibrillation) (Chronic) Gram-negative bacteremia (Acute) Cellulitis (Acute) Lower urinary obstructive symptom (Acute) Encephalopathy, hepatic (Chronic) Anemia of chronic disease (Acute) Thrombocytopenia (Chronic) Ventricular ectopy (Acute) Sinus bradycardia (Acute) Leukocytosis (Acute) Hypertension (Chronic) Elevated lactic acid level (Acute) CHF (congestive heart failure) (Chronic) No-show for appointment (Acute) Left rotator cuff tear (Acute) Acute UTI (urinary tract infection) (Acute) Weakness (Acute) Non-ST elevation HI (NSTEMI) (Acute) Pre-syncope (Acute) Frequent falls (Acute) Orthostatic hypotension (Acute) Chronic atrial fibrillation (Chronic) Type 2 diabetes mellitus (Chronic) Hypokalemia (Acute) Bradycardia (Acute) Multiple falls (Acute) Acute metabolic encephalopathy (Acute) Medication monitoring encounter (Acute) ANETTE (obstructive sleep apnea) (Chronic) Chest pain (Acute) CHF exacerbation (Acute) CHF (congestive heart failure) (Chronic) EF 25%- 2023 Medical History Heart failure with reduced ejection fraction Hypothyroidism Small bowel obstruction Lactic acid acidosis Creatinine elevation Acute UTI Anticoagulated COVID Chronic low back pain Recurrent intestinal obstruction History of colon cancer Palliative care encounter [facility]ed by [facility] Chronic anticoagulation Portal hypertension Cirrhosis TIPs placed (?when, 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, Dx [facility] as per pt Non-insulin dependent type 2 diabetes mellitus Incontinence Hypertension Scleral icterus Surgical History S/P TIPS (transjugular intrahepatic portosystemic shunt) H/O left hemicolectomy Colostomy in place Social History Smoking/Tobacco Use Status: Former Tobacco Use Smoking risk assessment performed?: Yes Alcohol Intake: former Drug use: Never Substance use type: does not use Housing: house Do you feel safe at home: Yes Do you feel safe in your relationship?: Yes Additional Social history: Lives with , son, and sick [id number] in [place], moved up from [place] in 2020. [place] . Time Spent with Patient Time Spent with Patient: >85 minutes Time was spent: preparing to see the patient(eg.review tests), obtaining and/or reviewing separately otained hiistory, ordering medications,tests, procedures, referring, communicating with other health daycare provider, indepentently interpreting results, counseling the patient and care coordination
--- NOTE | 2024-05-13 14:44 | PDOC.HHF2F ---
Home Health Referral Home Health Orders Clinical synopsis of why skilled professionals are needed: 79-year-old male patient with past medical history of hepatic encephalopathy, thrombocytopenia, hypertension, cirrhosis of the liver with a history of TIPS procedure and portal hypertension, congestive heart failure, coronary artery disease, urinary tract infection close, atrial fibrillation on Eliquis, type 2 diabetes not on insulin but on metformin, frequent bowel obstructions with self resolution within 24 hours with colostomy presented to the ED [facility] on 05/11/2024 for evaluation of abdominal pain nausea, difficulty voiding and decreased colostomy output with the last recorded output on 05/10/2024 around 3 PM. At the time the patient denied fever, upper respiratory infection symptoms, chills, night sweats, change in vision, emesis, bloody stool but reported coughing on oral fluid intake at baseline. The patient uses 2 L of oxygen at night at home. Workup in the ED was significant for initial lactate level at 4.1 which repeated level at 4.5 after 1 L of IV fluids, H&H of 11.1 and 32.6, WBC of 2.98 lower than baseline, platelet at 55 and magnesium at 1.7; procalcitonin was negative. In the emergency room, patient colostomy hide resume output. Chest x-ray was negative for pleural effusion and other acute findings. CT of the abdomen and pelvis showed multiple abnormal appearing small bowel loops in the mid-abdominal but nomesenteric ischemia sign or small bowel obstruction seen as per discussion between Mikael AGARWAL and radiologist Dr. Bauer. No ascites seen, hepatic cirrhosis and splenomegaly were evident. In the emergency room the patient received IV acetaminophen for pain, and IV antibiotics. ED provider also [facility] [place] [phone] but they cannot accept admission due to capacity. The hospitalist service was consulted and the patient was admitted for evaluation and management of lactic acidosis, leukopenia, possible aspiration pneumonia. The ED provider administer IV Lasix 40 mg once the patient was accepted by the hospitalist service; added BNP was 205. The patient will be discharged home today with daily morning Lantus 10 units subcutaneous injection which requires teaching by home health nursing. This will be a resumption of nursing. Metformin dose has been decreased with further management of diabetic medicines as per primary care practitioner. Surgery recommended stool softener and Colace twice daily has been ordered. Other surgery recommendations include referral to tertiary [facility] for gastroenterology due to complicated GI surgery history and hepatology due to cirrhosis of the liver and TIPS procedure history. Referrals to be made by [place] primary care provider as the patient is a [place] patient. The patient is not a candidate for surgery and anesthesia at [facility] as per discussion with surgery. Other chronic condition has been manage as per home medicine regimen. Recommendation given to patient to keep hydrated and to take his bowel management medicines. PT evaluation recommendation for home health PT services in order to progress mobility level using least restrictive assistive ambulatory device, assess home safety, identify additional equipment needs, and establish a functional maintenance program that will increase ability of patient to remain at home. The patient will be discharged home today with his resumption of home health for nursing for compliance and education with new medicines as well as monitoring worsening of medical condition and new home health physical therapy as per inpatient PT and to regain strength. The patient will need to follow-up with his primary care practitioner within 7 days of discharge. Discussed with Dr. Payne Medical diagnosis necessitation home health referral: discharged home today with daily morning Lantus 10 units subcutaneous injection which requires teaching by home health nursing. This will be a resumption of nursing. Metformin dose has been decreased with further management of diabetic medicines as per primary care practitioner. Surgery recommended stool softener and Colace twice daily has been ordered. Other surgery recommendations include referral to tertiary [facility] for gastroenterology due to complicated GI surgery history and hepatology due to cirrhosis of the liver and TIPS procedure history. Referrals to be made by [place] primary care provider as the patient is a [place] patient. The patient is not a candidate for surgery and anesthesia at [facility] as per discussion with surgery. Other chronic condition has been manage as per home medicine regimen. Recommendation given to patient to keep hydrated and to take his bowel management medicines. PT evaluation recommendation for home health PT services in order to progress mobility level using least restrictive assistive ambulatory device, assess home safety, identify additional equipment needs, and establish a functional maintenance program that will increase ability of patient to remain at home. The patient will be discharged home today with his resumption of home health for nursing for compliance and education with new medicines as well as monitoring worsening of medical condition and new home health physical therapy as per inpatient PT and to regain strength. The patient will need to follow-up with his primary care practitioner within 7 days of discharge. Registered Nurse: Check all that apply Instruct on new or changed medication(s)/assess compliance: Ordered Instruct on ostomy care: Ordered (monitor for decreased or no output ) Assess for exacerbation of medical condition, instruct patient/caregivers on signs and symptoms to report for early detection: Ordered Other: Lantus injection teaching. Patient has to take his laxatives daily Physical Therapist: Check all that apply Increase strength & endurance for safe mobility at home: Ordered To design/establish home maintenance program: Ordered Fall reduction therapy program for patient with history of frequent falls: Ordered Home safety evaluation and teaching/gait training including stair management (if applicable): Ordered Occupational Therapist: Evaluate and treat for patient unable to perform ADL/IADL/self-care: Ordered Saw Maker: Assist with community resources: Ordered Assist with [facility]cf care planning: Ordered Home Bound Status Requires the aid of supportive device (check all that apply): Walker Patient has a condition such that leaving home is medically contraindicated (Describe): can't walk/cardiac EF 25% on 01/2024 Encounter Date and Reason: I certify that a FTF encounter for this patient was performed on May 13, 2024 and that such encounter was related to the primary reason the patient requires home health services. The encounter was conducted in the following manner: By me as the certifying physician, SPACE SCIENCES DIRECTOR, PA or By an inpatient physician, SPACE SCIENCES DIRECTOR or PA during an inpatient stay who communicated findings to me, Certification And Authentication I certify that I composed the above information based on my clinical judgment relating to this patient's medical condition and, if applicable, clinical findings communicated to me by the NPP or inpatient physician who performed the FTF encounter. Name of Provider that will be monitoring home health services: Maryann Whitt
--- NOTE | 2024-05-13 15:11 | CMDISCH_ITS ---
Date of service: 05/13/24 Time of Service: 15:11 LACE Index Scoring Tool Questions: Length of Stay (in days): 2 Was the patient admitted via the E.D.?: Yes Comorbidities: Previous M.I., Diabetes w/o Complication and Congestive Heart Failure E.D. Visits: 6 Answers: Total Score: 14 Risk of Readmission: High Risk Care Management Discharge Plan Reason for Hospitalization: lactic acidosis, aspiration pneumonia Discharge Plan: Merrill returned home today with a resumption of HH RN, add PT, OT, UNIVERSITY ADMINISTRATIVE ASSISTANT. His son drove him home via private vehicle. He will [facility] with [facility] and discharge plan of care. He is happy to be going home. Patient/Family Education Needs: Review discharge instructions and limitations, discussion of self care needs including ask me three. Services Needed at Discharge: Home Health Care Services (resumption of HH RN, add PT, OT, UNIVERSITY ADMINISTRATIVE ASSISTANT) SDOH Health Related Social Needs: Health related social needs transpo insecurity
[2024-05-13 15:54] VITALS: BP 132/63; PULSE 55; RESP 17; TEMP 36.7; O2SAT 92
== END 2024-05-13 16:50 | disposition home health service (06) | DRG 388 ==
LOC: ER 14:39 → MS 16:39
PROVIDERS: Nurse Practitioner Acute Care; Admitting Provider Family Medicine; Emergency Provider Physician Assistant; PCP Nurse Practitioner Adult Health; Visit Provider Family Medicine
DX: K56.609 Unspecified intestinal obstruction, unspecified as to partial versus complete obstruction (principal); J69.0 Pneumonitis due to inhalation of food and vomit; E87.20 Acidosis, unspecified; B37.0 Candidal stomatitis; K76.6 Portal hypertension; I48.0 Paroxysmal atrial fibrillation; D72.819 Decreased white blood cell count, unspecified; E11.9 Type 2 diabetes mellitus without complications; I10 Essential (primary) hypertension; E83.42 Hypomagnesemia; N13.9 Obstructive and reflux uropathy, unspecified; K76.82 Hepatic encephalopathy; D63.8 Anemia in other chronic diseases classified elsewhere; D69.6 Thrombocytopenia, unspecified; I11.0 Hypertensive heart disease with heart failure; I50.9 Heart failure, unspecified; I25.2 Old myocardial infarction; R29.6 Repeated falls; I95.1 Orthostatic hypotension; E87.6 Hypokalemia; G47.33 Obstructive sleep apnea (adult) (pediatric); E03.9 Hypothyroidism, unspecified; G89.29 Other chronic pain; M54.50 Low back pain, unspecified; F32.A Depression, unspecified; K74.60 Unspecified cirrhosis of liver; I25.10 Atherosclerotic heart disease of native coronary artery without angina pectoris; Z93.3 Colostomy status; Z79.01 Long term (current) use of anticoagulants; Z79.84 Long term (current) use of oral hypoglycemic drugs; Z90.49 Acquired absence of other specified parts of digestive tract; Z85.038 Personal history of other malignant neoplasm of large intestine; Z79.899 Other long term (current) drug therapy
CPT/HCPCS: 00123; 36410; 36415; 80048; 80053; 83690; 84145; 85652; 87040; 87505; 87641; 96365; 96366; 96367; 96368; 96375; 97162; 99285; 71045; 71046; 74018; 74019; 74177; 81003; 81015; 82248; 83605; 83735; 83880; 84484; 85025; 86140; 87177; 99223; 99233; 99239; 99291; J0131; J0692; J0696; J1170; J1815; J1836; J1940; J2405; J3372; J3475; J3490

== ENCOUNTER 2024-06-22 18:36 | Inpatient (IN) | payer OTHER, SELFPAY ==
[2024-06-22] VITALS (31 sets, daily range): BP systolic 172–212; BP diastolic 62–179; PULSE 42–104; RESP 9–22; TEMP 36.9; O2SAT 88–94
--- NOTE | 2024-06-22 18:30 | RT.EKG_ITS ---
APPROVED REPORT Exam: Resting ECG Reason for Exam: weakness Patient Location: E HR:85 bpm ECG Measurements Heart Rate 85 AXIS [place] [id number] P [id number] QRSd 124 QRS 22 QT 444 T 32 QTc 530 Conclusion Atrial fibrillation Multifocal PVCs Prolongued QTc to 530 LBBB No STEMI
--- NOTE | 2024-06-22 18:54 | W.ED.GENAD ---
Discharge Plan Discharge Details Chief Complaint: [id number] Primary Care Provider: Maryann Whitt ED Provider: Terese Jennings Home Meds and New Rx's Prescriptions: No Action prazosin 5 mg Capsule 10 mg PO QHS pantoprazole 40 mg Tablet,Delayed Release (Dr/Ec) 40 mg PO DAILY PRN pregabalin 50 mg Capsule 50 mg PO BID Eliquis 5 mg Tablet 5 mg PO BID nitroglycerin 0.4 mg Tablet, Sublingual 0.4 mg sublingual Q5 MIN PRN X3 PRNQty: 30 0RF miconazole nitrate 2 % Powder 1 applic TOPICAL BID PRN rifaximin 550 mg Tablet 550 mg PO BID docusate sodium [Colace] 100 mg Capsule 100 mg PO BID Qty: 60 0RF tamsulosin 0.4 mg Capsule 0.4 mg PO DAILY ferrous sulfate 325 mg (65 mg iron) Tablet 325 mg PO DAILY empagliflozin 25 mg Tablet 25 mg PO DAILY furosemide [Lasix] 20 mg tablet 20 mg PO QAM levothyroxine 200 mcg Tablet 100 mcg PO QAM Qty: 0 0RF spironolactone 25 mg Tablet 25 mg PO DAILY Qty: 30 0RF cholecalciferol (vitamin D3) 25 mcg (1,000 unit) capsule 25 mcg PO DAILY diclofenac sodium [Arthritis Pain (diclofenac)] 1 % gel 2 g topical QID PRN Rx Instructions: apply to single elbow, wrist or hand; for hand includes palm/fingers/back of hand losartan 50 mg tablet 50 mg PO DAILY venlafaxine 150 mg capsule,extended release 24hr 150 mg PO DAILY lactulose 20 gram/30 mL Solution 20 g PO QD-TID Qty: 1800 11RF Rx Instructions: to maintain colostomy output of 3-4 bags per day rosuvastatin [Crestor] 20 mg Tablet 40 mg PO QPM Qty: 0 0RF furosemide 20 mg tablet 20 mg PO DAILY PRN (Reason: weight gain) Rx Instructions: In Addition to scheduled dose carvedilol phosphate 10 mg capsule, ER multiphase 24 hr 10 mg PO QHS Rx Instructions: must administer with a meal/food clobetasol 0.05 % cream 1 applic topical DAILY acetaminophen [Tylenol] 325 mg Capsule 975 mg PO Q8H MDD 3000 PRN docusate sodium [Colace] 100 mg capsule 100 mg PO BID Qty: 60 0RF metformin 500 mg tablet extended release 24hr 500 mg PO DAILY Qty: 30 0RF simethicone 80 mg tablet,chewable 80 mg PO BID-QID PRNQty: 90 0RF insulin glargine [Lantus Solostar U-100 Insulin] 100 unit/mL (3 mL) insulin pen 10 unit subcut QAM Qty: 15 0RF HPI General Mode of arrival: EMS. Date/Time Provider Initiated Documentation: 06/22/24 18:46. Limitations to Documentation: no limitations. Information obtained by: patient and old records reviewed. HPI Narrative: MDM: This is a 79-year-old male patient presenting for evaluation of near syncope, weakness. Differential includes but is not limited to intracranial abnormalities including stroke, intracranial hemorrhage, though with the exception of the pupillary findings I am reassured by the lack of neurodeficits. I considered toxic/metabolic and hepatic encephalopathy, ACS, arrhythmia, orthostasis, vasovagal syncope. I considered metabolic and electrolyte derangements, anemia, kidney injury, liver dysfunction. I considered infection, specifically urinary tract infection. No abdominal tenderness to increase my concern for intra-abdominal abnormality, patient is oxygenating well and without increased work of breathing or focal lung findings to suggest pneumonia. Will obtain an EKG, as well as laboratory studies to include CBC, CMP, ammonia, troponin, BNP, urinalysis. I will obtain a CT head given that the patient did have a fall episode on anticoagulation, though it sounds that he landed on a soft surface. We will provide him with a 500 cc bolus of fluid for rehydration at this time. ED Course: I reviewed the patient's laboratory studies. He has no leukocytosis, nor anemia, thrombocytopenia is 124 today which is improved from his baseline of 50-70. Chemistry panel is without significant electrolyte derangements or evidence of kidney dysfunction, bilirubin is elevated to 2.5, no transaminitis or alk phos elevation. The patient does have an elevation in his ammonia to 131, which is consistent with our clinical concern for hepatic encephalopathy. The patient did have an elevation of his troponin to 92, though the patient remains without chest pain, palpitations, or shortness of breath. He has a BNP elevation to 1100, and his delta troponin continued to increase to 103. Repeat EKGs were obtained and continue to show atrial fibrillation with a left bundle branch block, Sgarbossa negative, with an extensive PVC burden. The urinalysis demonstrates hematuria but no evidence of infectious findings, and the patient was given 4 baby aspirin given our concern for NSTEMI. I reached out to cardiology at [facility], Dr. Cooper, and we discussed the patient's case. Given the patient's lack of ACS type symptoms, (his dizziness and near syncope was likely orthostatic given his position change, and the resolution of symptoms with sitting) cardiology feels that this likely represents a type II NSTEMI, and given his severe comorbid disease processes they would not recommend anticoagulating him and feel it is unlikely that this represents a plaque rupture or another pathology that would require emergent catheterization. I reached out to our hospitalist who has graciously accepted this patient for admission to their service for trending of troponins and EKGs and management of his hepatic encephalopathy. While under my care the patient remained with improvement in his lightheadedness, was hemodynamically appropriate he was transferred from this department without incident. Terese Jennings MD HPI: This is a 79-year-old male patient with a history of paroxysmal atrial fibrillation on Eliquis, and history of hepatic encephalopathy recently started on lactulose, and history of CHF, urinary tract infection, NSTEMI, insulin-dependent diabetes, orthostatic hypotension, and ANETTE, presenting for evaluation of weakness and dizziness. The patient reports that he has felt generally unwell for some time, today went to stand up and had a near syncopal event, states that he fell backwards onto the bed and did not lose consciousness. He reports that he is not experiencing any pain and does not believe that he had significant trauma as a result of this fall. He reports that he has been taking all of his medications as prescribed, empties his colostomy bag approximately 5-6 times per day, and has not noted any fevers or chills. He does endorse poor p.o. intake, states that he does not feel hungry and occasionally feels nauseated, but has not had vomiting. He has not noted changes in his urination such as hematuria or dysuria. He is otherwise not taken any falls, not been running a fever, and has no other acute complaints today. Per EMS report, the patient calls frequently for lift assistance given his weakness and frequent falls, but today his was worried that he seemed worse than is typical for him prompting the transport to our emergency department for evaluation Exam: Gen: awake and alert, in no apparent distress. Appears well nourished. HEENT: Left pupil 3 mm, right pupil 2 mm, both reactive, patient unsure if he has a history of this asymmetry. EOMs full and without nystagmus. External ears and nose normal, mucous membranes moist. Neck: Supple, full range of motion, no observable masses Lungs: No increased work of breathing, lung sounds clear and equal bilaterally without wheezes, rhonchi, or rales. CV: Heart with regular rate but irregular rhythm, numerous multifocal PVCs appreciated on telemetry which correlate with a radial pulse. Abdomen: Soft, nondistended, non-tended to palpation. No rigidity, rebound tenderness, or guarding. Colostomy bag in place MSK: No joint swelling, no redness. Full ROM without limitation, no external traumatic findings. Skin: No rashes or lesions to visualized skin. Normal color, warm, and dry. Neuro: Cranial nerves II-XII intact and symmetrical bilaterally. 5/5 strength in all muscle groups x4 extremities. No sensory deficits. Ambulates with steady gait. 1-2 beats of asterixis with outstretched hands. Psych: Appropriate for situation. Related Data Home Medications ?Medication ?Instructions ?Recorded ?Confirmed apixaban 5 mg tablet (Eliquis) 5 mg PO BID 11/08/22 05/12/24 pantoprazole 40 mg tablet,delayed 40 mg PO DAILY PRN 11/08/22 05/12/24 release prazosin 5 mg capsule 10 mg PO QHS 11/08/22 05/12/24 pregabalin 50 mg capsule 50 mg PO BID 11/08/22 05/12/24 tamsulosin 0.4 mg capsule 0.4 mg PO DAILY 11/29/22 05/12/24 nitroglycerin 0.4 mg sublingual 0.4 mg sublingual Q5 MIN PRN X3 02/10/23 05/12/24 tablet PRN #30 tabs ferrous sulfate 325 mg (65 mg 325 mg PO DAILY 03/08/23 05/12/24 iron) tablet empagliflozin 25 mg tablet 25 mg PO DAILY 04/09/23 05/12/24 furosemide 20 mg tablet (Lasix) 20 mg PO QAM 04/09/23 05/12/24 levothyroxine 200 mcg tablet 100 mcg (1/2 x 200 mcg) PO QAM #0 04/10/23 05/12/24 tabs miconazole nitrate 2 % topical 1 applic topical BID PRN 06/16/23 05/12/24 powder rifaximin 550 mg tablet 550 mg PO BID 07/07/23 05/12/24 docusate sodium 100 mg capsule 100 mg PO BID #60 caps 11/09/23 05/12/24 (Colace) spironolactone 25 mg tablet 25 mg PO DAILY #30 tabs 02/24/24 05/12/24 cholecalciferol (vitamin D3) 25 25 mcg PO DAILY 03/05/24 05/12/24 mcg (1,000 unit) capsule diclofenac sodium 1 % topical gel 2 g topical QID PRN 03/05/24 05/12/24 (Arthritis Pain (diclofenac)) losartan 50 mg tablet 50 mg PO DAILY 03/05/24 05/12/24 venlafaxine 150 mg 150 mg PO DAILY 03/05/24 05/12/24 capsule,extended release 24 hr lactulose 20 gram/30 mL oral 20 g (30 mL) PO QD-TID #1,800 mL 03/06/24 05/12/24 solution rosuvastatin 20 mg tablet (Crestor) 40 mg (2 x 20 mg) PO QPM #0 tabs 03/06/24 05/12/24 acetaminophen 325 mg capsule 975 mg PO Q8H PRN 05/12/24 05/12/24 (Tylenol) carvedilol phosphate 10 mg 10 mg PO QHS 05/12/24 05/12/24 capsule,[id number] multiphase clobetasol 0.05 % topical cream 1 applic topical DAILY 05/12/24 05/12/24 furosemide 20 mg tablet 20 mg PO DAILY PRN weight gain 05/12/24 05/12/24 docusate sodium 100 mg capsule 100 mg PO BID #60 caps 05/13/24 (Colace) insulin glargine 100 unit/mL (3 10 unit (0.1 mL) subcut QAM #15 mL 05/13/24 mL) subcutaneous pen (Lantus Solostar U-100 Insulin) metformin 500 mg tablet,extended 500 mg PO DAILY #30 tabs 05/13/24 05/12/24 release 24hr (osmotic) simethicone 80 mg chewable tablet 80 mg PO BID-QID PRN #90 tabs 05/13/24 Previous Rx's ?Medication ?Instructions ?Recorded nitroglycerin 0.4 mg sublingual 0.4 mg sublingual Q5 MIN PRN X3 02/10/23 tablet PRN #30 tabs levothyroxine 200 mcg tablet 100 mcg (1/2 x 200 mcg) PO QAM #0 04/10/23 tabs docusate sodium 100 mg capsule 100 mg PO BID #60 caps 11/09/23 (Colace) spironolactone 25 mg tablet 25 mg PO DAILY #30 tabs 02/24/24 lactulose 20 gram/30 mL oral 20 g (30 mL) PO QD-TID #1,800 mL 03/06/24 solution rosuvastatin 20 mg tablet (Crestor) 40 mg (2 x 20 mg) PO QPM #0 tabs 03/06/24 docusate sodium 100 mg capsule 100 mg PO BID #60 caps 05/13/24 (Colace) insulin glargine 100 unit/mL (3 10 unit (0.1 mL) subcut QAM #15 mL 05/13/24 mL) subcutaneous pen (Lantus Solostar U-100 Insulin) metformin 500 mg tablet,extended 500 mg PO DAILY #30 tabs 05/13/24 release 24hr (osmotic) simethicone 80 mg chewable tablet 80 mg PO BID-QID PRN #90 tabs 05/13/24 Allergies Allergy/AdvReac Type Severity Reaction Status Date / Time Penicillins Allergy Mild Itching Verified 05/11/24 16:03 morphine AdvReac Severe vomiting Verified 05/11/24 16:03 General Stated Complaint: [id number] ANNA: 3 Course Vital Signs Vital signs: Vital Signs Temperature 36.9 C 06/22/24 18:41 Pulse 76 06/22/24 18:41 Respiratory Rate 14 06/22/24 18:41 Blood Pressure 212/62 H 06/22/24 18:41 Pulse Oximetry 93 06/22/24 18:41 Temperature 36.9 C 06/22/24 18:41 Temperature Source Temporal Artery Scan 06/22/24 18:41 Pulse 76 06/22/24 18:41 Respiratory Rate 14 06/22/24 18:46 Respiratory Effort Normal 06/22/24 18:46 Respiratory Depth Normal 06/22/24 18:46 Respiratory Pattern Normal 06/22/24 18:46 Blood Pressure 212/62 H 06/22/24 18:41 Blood Pressure Position Supine 06/22/24 18:41 Pulse Oximetry 93 06/22/24 18:41 Oxygen Delivery Method Room Air 06/22/24 18:41 Oxygen Flow Rate 0 06/22/24 18:41 Pain Level 0 06/22/24 18:41 Medical Decision Making Quality:SDOH Health Related Social Needs: Health related social needs transpo insecurity PFSH All Active Problems (Updated 05/14/24 @ 00:06 by JOSE LUIS REICH) Diabetes (Chronic) Leukopenia (Acute) Oral candidiasis (Acute) Sepsis syndrome (Acute) PAF (paroxysmal atrial fibrillation) (Chronic) Gram-negative bacteremia (Acute) Cellulitis (Acute) Lower urinary obstructive symptom (Acute) Encephalopathy, hepatic (Chronic) Anemia of chronic disease (Acute) Thrombocytopenia (Chronic) Ventricular ectopy (Acute) Sinus bradycardia (Acute) Leukocytosis (Acute) Hypertension (Chronic) Elevated lactic acid level (Acute) CHF (congestive heart failure) (Chronic) No-show for appointment (Acute) Left rotator cuff tear (Acute) Acute UTI (urinary tract infection) (Acute) Weakness (Acute) Non-ST elevation [place] (NSTEMI) (Acute) Pre-syncope (Acute) Frequent falls (Acute) Orthostatic hypotension (Acute) Chronic atrial fibrillation (Chronic) Type 2 diabetes mellitus (Chronic) Hypokalemia (Acute) Bradycardia (Acute) Multiple falls (Acute) Acute metabolic encephalopathy (Acute) Medication monitoring encounter (Acute) ANETTE (obstructive sleep apnea) (Chronic) Chest pain (Acute) CHF exacerbation (Acute) CHF (congestive heart failure) (Chronic) EF 25%- 2023 Medical History Heart failure with reduced ejection fraction Hypothyroidism Small bowel obstruction Lactic acid acidosis Creatinine elevation Acute UTI Anticoagulated COVID Chronic low back pain Recurrent intestinal obstruction History of colon cancer Palliative care encounter Followed by [facility] Chronic anticoagulation Portal hypertension Cirrhosis TIPs placed (?when, [facility]? 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, Dx [facility] as per pt Non-insulin dependent type 2 diabetes mellitus Incontinence Hypertension Scleral icterus Surgical History S/P TIPS (transjugular intrahepatic portosystemic shunt) H/O left hemicolectomy Colostomy in place Social History Smoking/Tobacco Use Status: Former Tobacco Use Smoking risk assessment performed?: Yes Alcohol Intake: former Drug use: Never Substance use type: does not use Housing: house Do you feel safe at home: Yes Do you feel safe in your relationship?: Yes Additional Social history: Lives with , son, and sick [id number] in [place], moved up from [place] in 2019. [place].
[2024-06-22 19:06] LABS: Abs Immature Grans 0.02 10^3/uL (0.0-0.06); Absolute Basophil Count 0.04 10^3/uL (0.0-0.2); Absolute Eosinophil Count 0.27 10^3/uL (0.0-0.7); Absolute Lymphocyte Count 0.98 10^3/uL (1.2-3.4); Absolute Neutrophil Count 5.17 10^3/uL (1.2-6.7); Basophils % 0.6 %; Eosinophils % 3.8 %; HCT 42.6 % (40.0-50.0); HGB 14.5 g/dL (13.5-17.5); Immature Grans % 0.3 %; Lymphocytes % 13.8 %; MCH 30.5 pg (27.0-33.0); MCV 90 fL (80-95); MPV 10.3 fL (8.0-11.0); Monocytes % 8.5 %; Platelet Count 124 10^3/uL (130-400); RBC 4.75 10^6/uL (4.36-5.78); RDW 15.1 % (11.8-14.1); WBC 7.08 10^3/uL (4.4-10.8)
[2024-06-22 19:08] LABS: Ammonia 131 umol/L (11-32)
--- NOTE | 2024-06-22 19:13 | DI.CT_ITS ---
Exam(s) CT HEAD WO EXAM: CT HEAD WO CLINICAL HISTORY: syncope, pupils unequal. TECHNIQUE: Imaging Protocol: Axial computed tomography images with coronal and sagittal reformatted images were created and reviewed COMPARISON: CT CT HEAD WO from 03/12/2024 FINDINGS: There are no skull fractures. There is evidence of surgical defects in the medial patterson of both maxil fiorella sinuses and some mucosal thickening noted in the partially included left maxillary sinus. There has also been resection of ethmoidal air cells. Sphenoid and frontal sinuses are clear as are the m astoid air cells. There is no evidence of intracranial hemorrhage, mass effect, or shift of midline structures. There are no extra-axial fluid collections. The ventricles are not enlarged or shifted and there is no blo od within the ventricular system nor within the basal cisterns. Relatively symmetrical atrophy noted as well as periventricular hypodensity consistent with chronic s mall vessel disease. No acute infarct identified. IMPRESSION: No acute intracranial findings on this noninfused CT scan of the brain. Chronic small-vessel white matter ischemic changes again noted. Clinically indicated follow-up MRI with diffusion imaging can be performed. RADIATION DOSE DELIVERED: 867.62mGy.cm Total DLP DATA REPOSITORY: All CT scans at this facility are submitted to the National Radiology Data Registry (NRDR) Dose Index Registry (DIR) with the [employer] (ACR). RADIATION OPTIMIZATION: All CT scans at this facility use at least one of these dose optimization te chniques: automated exposure control; mA and/or kV adjustment per patient size (includes targeted exa ms where dose is matched to clinical indication); or iterative reconstruction.
[2024-06-22 19:15] LABS: INR 1.2 (0.9-1.1); Prothrombin Time 12.1 sec (9.1-11.1)
[2024-06-22 19:29] LABS: ALT 16 U/L (16-63); AST 29 U/L (15-37); Albumin 3.3 g/dL (3.4-5.0); Alkaline Phosphatase 131 U/L (46-116); BUN 13 mg/dL (7-18); Bilirubin, Total 2.55 mg/dL (0.2-1.0); CREATININE 1.2 mg/dL (0.70-1.30); Calcium 9.7 mg/dL (8.5-10.1); Chloride 107 mmol/L (98-107); Estimated GFR 62.29 (mL/min/1.73m2); Glucose 226 mg/dL (74-106); Magnesium 1.9 mg/dL (1.8-2.4); Potassium 3.6 mmol/L (3.5-5.1); Sodium 142 mmol/L (136-145); Total Protein 7.5 g/dL (6.4-8.2)
[2024-06-22] MEDS: Lactated Ringers 500 ML IV (19:30)
[2024-06-22 19:31] LABS: NT-proBNP 1105 pg/mL (<300); Troponin I 92 ng/L (< or =60)
--- NOTE | 2024-06-22 19:46 | DI.VRAD_ITS ---
PROCEDURE INFORMATION: Exam: CT Head Without Contrast Exam date and time: 06/22/2024 7:09 PM Age: 79 years old Clinical indication: Other: Syncope, pupils unequal TECHNIQUE: Imaging protocol: Computed tomography of the head without contrast. COMPARISON: CT HEAD WO 03/12/2024 8:34 PM FINDINGS: Brain: Prominence of cerebral sulci reflects cerebral atrophy. A few poorly marginated hypodensities seen scattered throughout the deep and periventricular white matter of both cerebral hemispheres are consistent with underlying microvascular ischemic changes. Brainstem and cerebellum are unremarkable and there is no evidence of acute transcortical infarction or recent intracranial hemorrhage. Cerebral ventricles: No midline shift or hydrocephalus. Paranasal sinuses: Postsurgical changes are noted with mucosal disease and layering fluid seen along the margins of the left maxillary sinus and membrane thickening also involving scattered bilateral ethmoidal lamellae. Mastoid air cells: Grossly clear bilaterally. Bones: Bony calvarium and skull base are intact and no acute fractures are detected. Soft tissues: Unremarkable. IMPRESSION: Cerebral atrophy and probable microvascular ischemic changes with no evidence of acute transcortical infarction, recent intracranial hemorrhage or hydrocephalus. No acute intracranial process is detected. Dictated and Authenticated by: Junaid Graham MD. Ordering:SAMANTHA Real MD
[2024-06-22] MEDS: Aspirin 81 MG CHEW 324 MG CH (20:15)
[2024-06-22 21:11] LABS: Bilirubin Negative (Negative); Blood Large (Negative); Clarity Cloudy (Clear); Glucose 500 mg/dL (Negative); Ketones Negative (Negative); Leukocyte Esterase Negative (Negative); Nitrite Negative (Negative); Specific Gravity 1.025 (1.005-1.025)
--- NOTE | 2024-06-22 21:15 | RT.EKG_ITS ---
APPROVED REPORT Exam: Resting ECG Reason for Exam: Repeat Patient Location: E HR:72 bpm ECG Measurements Heart Rate 72 AXIS IA 298 P 12 QRSd 124 QRS 38 QT 457 T -19 QTc 500 Conclusion Sinus rhythm Ventricular bigeminy Left bundle branch block, unchanged morphology from priors, sgarbosa negative
[2024-06-22 21:24] LABS: Bacteria Many HPF (Negative); RBC >50 HPF (0-2)
[2024-06-22 21:25] LABS: C & S Indicated? No
[2024-06-22 21:29] LABS: Troponin I 103 ng/L (< or =60)
--- NOTE | 2024-06-22 23:06 | HPE_ITS ---
Date of service: 06/22/24 Time of Service: 23:06 Assessment and Plan Assessment and plan (1) Encephalopathy, hepatic: Start date: 06/22/24 Status: Acute Assessment and plan: This is a 79-year-old gentleman who had recurrent hospitalizations for decompensation presently with increase confusion at home and elevated ammonia level. He does have chronic cirrhosis without ascites having TIPS procedure in the past. Is unclear whether this was from alcohol or steatorrhea. [facility] go [facility]. He may may not be taking his lactulose routinely with no reported increase in stooling with colostomy bag. He will be given a lactulose dose now and increase to 3 times daily routinely and not vary the dosing to avoid this problem. Compliance may be an issue with he and his marginally functioning at home. Follow-up lab with repeat ammonia level and liver function in the morning. He has a full code. (2) Elevated troponin level not due myocardial infarction: Start date: 06/22/24 Status: Acute Assessment and plan: Patient has had elevated troponins in the past and does not appear to be from acute cardiac ischemia but he does complain of intermittent resting sharp chest pain. This has not been a problem recently. It is not present responsible for the patient. He is a poor historian. Trend troponins and for now continue Eliquis without initiation of heparin with non-STEMI doubtful. If marked elevation in troponins or change in status with cardiac monitoring, reconsult cardiology at [facility] or the [facility]. 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 Continue to monitor labs with this most likely causing patient's hepatic encephalopathy. Patient is chronically on rifaximin which will be continued. Qualifiers: Hepatic cirrhosis type: unspecified hepatic cirrhosis Qualified Code(s): K74.60 - Unspecified cirrhosis of liver (4) PAF (paroxysmal atrial fibrillation): Status: Chronic Assessment and plan: Patient presently in sinus rhythm with frequent PVCs. Replete magnesium and continue cardiac monitoring while trending troponins. Patient is a full code. (5) Hypertension: Status: Chronic Assessment and plan: Continue outpatient medical therapy monitoring and adjusting as needed. Qualifiers: Hypertension type: primary hypertension Qualified Code(s): I10 - Essential (primary) hypertension (6) Type 2 diabetes mellitus: Status: Chronic Assessment and plan: Continue Jardiance but hold metformin and check glucometers before meals and at bedtime with moderate dose short acting insulin sliding scale coverage. Qualifiers: Chronic kidney disease stage: stage 2 (mild) Diabetes mellitus complication detail: with chronic kidney disease Diabetes mellitus complication status: with kidney complications Diabetes mellitus longterm insulin use: w [facility] buttermaker helper use Qualified Code(s): E11.22 - Type 2 diabetes mellitus with diabetic chronic kidney disease; N18.2 - Chronic kidney disease, stage 2 (mild) (7) ANETTE (obstructive sleep apnea): Status: Chronic Assessment and plan: Evaluate for treatment and the patient is on home positive pressure treatment, continue while hospitalized. (8) CHF (congestive heart failure): Status: Chronic Assessment and plan: Continue outpatient medical therapy monitoring labs. This appears to be stable. Qualifiers: Heart failure chronicity: chronic Heart failure type: diastolic Q ualified Code(s): I50.32 - Chronic diastolic (congestive) heart failure History of Present Illness History of Present Illness Chief Complaint: Syncope with increased confusion from baseline. Narrative: This is a 79-year-old male patient who has frequent hospitalizations for complications such as cellulitis or UTI presenting with increased confusion and inability to be walking upstairs at his home. EMT was called and transfer the patient to the hospital because of his increased confusion from baseline. They do see him quite frequently. He also has complaints of near syncope and extreme weakness. In the ED he had no focal neurological findings and CT scan of the head was negative for acute bleed. Patient does have a history of falling. He is also chronically on Eliquis. He has heart failure which appears to be stable with BNP not elevated from baseline. His ammonia level was elevated and he was started on lactulose and increase dose with compliance probably been an issue at home. He has a history of intermittent retrosternal sharp chest pain which is at rest which responds sprays but has not had any recent chest pain or cough. He also denies dyspnea or increased weight or edema. Patient does have cirrhosis with TIPS procedure in the past and no ascites presently. He does go to [facility] and he did have stents placed while hospitalized at the [facility] with a history of CAD. Troponin was slightly elevated and trending slightly up with delta troponin and these will be follow-up with patient to be observed. Cardiology at the age was he did not recommend embolization with patient to continue on Eliquis. He is a diabetic. He is overweight and deconditioned being a poor historian as well. He and his are marginally functional at home living together. He remains a full code despite palliative care consultation in the past. Review of Systems Narrative: 13 point review of systems otherwise unrevealing or stable with patient being a vague historian. He is overweight. 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) Elevated troponin level not due myocardial infarction (Acute) Diabetes (Chronic) Leukopenia (Acute) Oral candidiasis (Acute) Sepsis syndrome (Acute) PAF (paroxysmal atrial fibrillation) (Chronic) Gram-negative bacteremia (Acute) Cellulitis (Acute) Lower urinary obstructive symptom (Acute) Encephalopathy, hepatic (Acute) Anemia of chronic disease (Acute) Thrombocytopenia (Chronic) Ventricular ectopy (Acute) Sinus bradycardia (Acute) Leukocytosis (Acute) Hypertension (Chronic) Elevated lactic acid level (Acute) CHF (congestive heart failure) (Chronic) No-show for appointment (Acute) Left rotator cuff tear (Acute) Acute UTI (urinary tract infection) (Acute) Weakness (Acute) Non-ST elevation IA (NSTEMI) (Acute) Pre-syncope (Acute) Frequent falls (Acute) Orthostatic hypotension (Acute) Chronic atrial fibrillation (Chronic) Type 2 diabetes mellitus (Chronic) Hypokalemia (Acute) Bradycardia (Acute) Multiple falls (Acute) Acute metabolic encephalopathy (Acute) Medication monitoring encounter (Acute) ANETTE (obstructive sleep apnea) (Chronic) Chest pain (Acute) CHF exacerbation (Acute) CHF (congestive heart failure) (Chronic) EF 25%- 2023 Medical History (Updated 06/22/24 @ 23:16 by Phoenix Jim) Bowel obstruction Sepsis Heart failure with reduced ejection fraction Hypothyroidism Small bowel obstruction Lactic acid acidosis Creatinine elevation Acute UTI Anticoagulated COVID Chronic low back pain Recurrent intestinal obstruction History of colon cancer Palliative care encounter Followed by [facility] Chronic anticoagulation Portal hypertension Cirrhosis TIPs placed (?when, [facility]? 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, Dx [facility] as per pt Non-insulin dependent type 2 diabetes mellitus Incontinence Hypertension Scleral icterus Surgical History S/P TIPS (transjugular intrahepatic portosystemic shunt) H/O left hemicolectomy Colostomy in place Social History Smoking/Tobacco Use Status: Former Tobacco Use Smoking risk assessment performed?: Yes Alcohol Intake: former Drug use: Never Substance use type: does not use Housing: house Do you feel safe at home: Yes Do you feel safe in your relationship?: Yes Additional Social history: Lives with , son, and sick [id number] in [place], moved up from [place] in 2019. [place] . Meds Allergies and Home Medications Allergies Allergy/AdvReac Type Severity Reaction Status Date / Time Penicillins Allergy Mild Itching Verified 05/11/24 16:03 morphine AdvReac Severe vomiting Verified 05/11/24 16:03 Home Medications ?Medication ?Instructions ?Recorded ?Confirmed ?Type apixaban 5 mg tablet (Eliquis) 5 mg PO BID 11/08/22 05/12/24 History pantoprazole 40 mg tablet,delayed 40 mg PO DAILY PRN 11/08/22 05/12/24 History release prazosin 5 mg capsule 10 mg PO QHS 11/08/22 05/12/24 History pregabalin 50 mg capsule 50 mg PO BID 11/08/22 05/12/24 History tamsulosin 0.4 mg capsule 0.4 mg PO DAILY 11/29/22 05/12/24 History nitroglycerin 0.4 mg sublingual 0.4 mg sublingual Q5 MIN PRN X3 02/10/23 05/12/24 Rx tablet PRN #30 tabs ferrous sulfate 325 mg (65 mg 325 mg PO DAILY 03/08/23 05/12/24 History iron) tablet empagliflozin 25 mg tablet 25 mg PO DAILY 04/09/23 05/12/24 History furosemide 20 mg tablet (Lasix) 20 mg PO QAM 04/09/23 05/12/24 History levothyroxine 200 mcg tablet 100 mcg (1/2 x 200 mcg) PO QAM #0 04/10/23 05/12/24 Rx tabs miconazole nitrate 2 % topical 1 applic topical BID PRN 06/16/23 05/12/24 History powder rifaximin 550 mg tablet 550 mg PO BID 07/07/23 05/12/24 History docusate sodium 100 mg capsule 100 mg PO BID #60 caps 11/09/23 05/12/24 Rx (Colace) spironolactone 25 mg tablet 25 mg PO DAILY #30 tabs 02/24/24 05/12/24 Rx cholecalciferol (vitamin D3) 25 25 mcg PO DAILY 03/05/24 05/12/24 History mcg (1,000 unit) capsule diclofenac sodium 1 % topical gel 2 g topical QID PRN 03/05/24 05/12/24 History (Arthritis Pain (diclofenac)) losartan 50 mg tablet 50 mg PO DAILY 03/05/24 05/12/24 History venlafaxine 150 mg 150 mg PO DAILY 03/05/24 05/12/24 History capsule,extended release 24 hr lactulose 20 gram/30 mL oral 20 g (30 mL) PO QD-TID #1,800 mL 03/06/24 05/12/24 Rx solution rosuvastatin 20 mg tablet (Crestor) 40 mg (2 x 20 mg) PO QPM #0 tabs 03/06/24 05/12/24 Rx acetaminophen 325 mg capsule 975 mg PO Q8H PRN 05/12/24 05/12/24 History (Tylenol) carvedilol phosphate 10 mg 10 mg PO QHS 05/12/24 05/12/24 History capsule,[id number] multiphase clobetasol 0.05 % topical cream 1 applic topical DAILY 05/12/24 05/12/24 History furosemide 20 mg tablet 20 mg PO DAILY PRN weight gain 05/12/24 05/12/24 History docusate sodium 100 mg capsule 100 mg PO BID #60 caps 05/13/24 Rx (Colace) insulin glargine 100 unit/mL (3 10 unit (0.1 mL) subcut QAM #15 mL 05/13/24 Rx mL) subcutaneous pen (Lantus Solostar U-100 Insulin) metformin 500 mg tablet,extended 500 mg PO DAILY #30 tabs 05/13/24 05/12/24 Rx release 24hr (osmotic) simethicone 80 mg chewable tablet 80 mg PO BID-QID PRN #90 tabs 05/13/24 Rx Exam Narrative Exam Narrative: General: Patient appears older than stated age, moderately obese, alert and oriented to person, place and marginally to time. He was more confused in the ED and does have time to wander with conversation off topic. He is in no acute distress. HEENT: Normocephalic, eyes with pupils equal and reactive light symmetrically, extraocular movement intact and sclera anicteric. Oropharynx with montelukast and Advair dentition. Neck: Supple without JVD. Neck: Kyphotic without CVA tenderness. Lungs: Aeration and clear to auscultation percussion without localized rales or rhonchi. Heart: Irregular rhythm with normal rate. No appreciable murmur or gallop with distant heart sounds. Abdomen: Obese contour, soft and nontender to palpation with no palpable hepatosplenomegaly. Colostomy bag over lower abdomen. Well-healed large slightly hypertrophic ventral scar. Bowel sounds positive all quadrants. Genitalia/rectal: Exam deferred. Extremities: Without clubbing, cyanosis or grossly pitting edema with chronic nonpitting edema both lower extremities and chronic skin changes. Fair capillary refill. Skin: Normal color, warm and dry with actinic changes over sun exposed areas. Neuro: Cranial nerves II through XII gross intact, no focalizing motor deficits. No tremor. Psych: Normal slightly euphoric affect. Mood normal. No abnormal thought processes. Remote memory very intact with recent memory less intact. Patient presently is not delusional with only slight confusion but a very poor historian. Results Imaging Imaging Studies: Exam: CT Head Without Contrast Exam date and time: 06/22/2024 7:09 PM Age: 79 years old Clinical indication: Other: Syncope, pupils unequal TECHNIQUE: Imaging protocol: Computed tomography of the head without contrast. COMPARISON: CT HEAD WO 03/12/2024 8:34 PM FINDINGS: Brain: Prominence of cerebral sulci reflects cerebral atrophy. A few poorly marginated hypodensities seen scattered throughout the deep and periventricular white matter of both cerebral hemispheres are consistent with underlying microvascular ischemic changes. Brainstem and cerebellum are unremarkable and there is no evidence of acute transcortical infarction or recent intracranial hemorrhage. Cerebral ventricles: No midline shift or hydrocephalus. Paranasal sinuses: Postsurgical changes are noted with mucosal disease and layering fluid seen along the margins of the left maxillary sinus and membrane thickening also involving scattered bilateral ethmoidal lamellae. Mastoid air cells: Grossly clear bilaterally. Bones: Bony calvarium and skull base are intact and no acute fractures are detected. Soft tissues: Unremarkable. IMPRESSION: Cerebral atrophy and probable microvascular ischemic changes with no evidence of acute transcortical infarction, recent intracranial hemorrhage or hydrocephalus. No acute intracranial process is detected. Labs 06/22/24 18:58 06/22/24 18:58 Labs: Laboratory Results - last 24 hr 06/22/24 06/22/24 06/22/24 18:50 18:58 21:00 WBC 7.08 RBC 4.75 Hgb 14.5 Hct 42.6 MCV 90 MCH 30.5 MCHC 34.0 RDW 15.1 H Plt Count 124 L MPV 10.3 Immature Gran % 0.3 Neutrophils % 73.0 Lymphocytes % 13.8 Monocytes % 8.5 Eosinophils % 3.8 Basophils % 0.6 Nucleated RBC % 0.0 Absolute Neutrophils 5.17 Absolute Lymphocytes 0.98 L Absolute Monocytes 0.60 Absolute Eosinophils 0.27 Absolute Basophils 0.04 PT 12.1 H INR 1.2 H Sodium 142 Potassium 3.6 Chloride 107 Carbon Dioxide 21.0 Anion Gap 14.0 H BUN 13 Creatinine 1.2 Est GFR (CKD-EPI 2020) 62.29 Glucose 226 H Calcium 9.7 Magnesium 1.9 Total Bilirubin 2.55 H AST 29 ALT 16 Alkaline Phosphatase 131 H Ammonia 131 H Troponin I 92 H* NT-Pro-B Natriuret Pep 1105 H Total Protein 7.5 Albumin 3.3 L TSH 17.10 H Urine Color Yellow Urine Clarity Cloudy Urine pH 6.0 Ur Specific Jackson 1.025 Urine Protein 100 H Urine Ketones Negative Urine Blood Large H Urine Nitrite Negative Urine Bilirubin Negative Urine Urobilinogen 1.0 H Ur Leukocyte Esterase Negative Urine RBC >50 H Urine WBC Not Applicable Ur Epithelial Cells Not Applicable Urine Crystals Not Applicable Urine Bacteria Many Urine Mucus Not Applicable Ur Culture Indicated? No Urine Glucose 500 H 06/22/24 21:01 WBC RBC Hgb Hct MCV MCH MCHC RDW Plt Count MPV Immature Gran % Neutrophils % Lymphocytes % Monocytes % Eosinophils % Basophils % Nucleated RBC % Absolute Neutrophils Absolute Lymphocytes Absolute Monocytes Absolute Eosinophils Absolute Basophils PT INR Sodium Potassium Chloride Carbon Dioxide Anion Gap BUN Creatinine Est GFR (CKD-EPI 2020) Glucose Calcium Magnesium Total Bilirubin AST ALT Alkaline Phosphatase Ammonia Troponin I 103 H* NT-Pro-B Natriuret Pep Total Protein Albumin TSH Urine Color Urine Clarity Urine pH Ur Specific Jackson Urine Protein Urine Ketones Urine Blood Urine Nitrite Urine Bilirubin Urine Urobilinogen Ur Leukocyte Esterase Urine RBC Urine WBC Ur Epithelial Cells Urine Crystals Urine Bacteria Urine Mucus Ur Culture Indicated? Urine Glucose Last Vital Signs Temp 36.9 C 06/22/24 18:41 Pulse 79 06/22/24 21:31 Resp 16 06/22/24 21:32 BP 172/84 H 06/22/24 21:31 Pulse Ox 94 06/22/24 21:32 Time Spent Time spent with Patient: >75 minutes Time was spent: preparing to see the patient(eg.review tests), obtaining and/or reviewing separately otained hiistory, ordering medications,tests, procedures, indepentently interpreting results, counseling the patient and care coordination
[2024-06-22 23:28] LABS: Bilirubin Small (Negative); Blood Large (Negative); Clarity Cloudy (Clear); Glucose >=1000 mg/dL (Negative); Ketones Negative (Negative); Leukocyte Esterase Negative (Negative); Nitrite Positive (Negative); Specific Gravity 1.025 (1.005-1.025)
[2024-06-22 23:41] LABS: Bacteria Many HPF (Negative); C & S Indicated? No; RBC >50 HPF (0-2)
--- NOTE | 2024-06-22 23:59 | W.PC.ACHO ---
Registration Status: Primary Language: Preferred Language: ED Information & Data Chief Complaint [id number] 06/22/24 18:57 Triage Note [place] dizzy, nearly passed 06/22/24 18:41 out, fell onto bed. No trauma, no pain. Has not been eating or drinking much d/t nauseated this morning. Hx of hepatic encephelopathy Medical / Surgical History (Last Updated 06/22/24 @ 23:16 by Phoenix Jim) Bowel obstruction Sepsis Heart failure with reduced ejection fraction Hypothyroidism Small bowel obstruction Lactic acid acidosis Creatinine elevation Acute UTI Anticoagulated COVID Chronic low back pain Recurrent intestinal obstruction History of colon cancer Palliative care encounter Chronic anticoagulation Portal hypertension Cirrhosis Confusion Colon cancer Depression Endocarditis Non-insulin dependent type 2 diabetes mellitus Incontinence Hypertension Scleral icterus (Last Reviewed 06/22/24 @ 23:07 by Phoenix Jim) S/P TIPS (transjugular intrahepatic portosystemic shunt) H/O left hemicolectomy Colostomy in place Most Recent Vital Signs Temperature 36.9 C 06/22/24 18:41 Temperature Source Temporal Artery Scan 06/22/24 18:41 Pulse 79 06/22/24 21:31 Pulse 74 06/22/24 21:32 Respiratory Rate 16 06/22/24 21:32 Respiratory Effort Normal 06/22/24 18:46 Respiratory Depth Normal 06/22/24 18:46 Respiratory Pattern Normal 06/22/24 18:46 Blood Pressure 172/84 H 06/22/24 21:31 Blood Pressure Mean 113 06/22/24 21:31 Blood Pressure Position Supine 06/22/24 18:41 Pulse Oximetry 94 06/22/24 21:32 Oxygen Delivery Method Room Air 06/22/24 18:41 Oxygen Flow Rate 0 06/22/24 18:41 Pain Level 0 06/22/24 18:41 Allergies Penicillins Allergy (Mild, Verified 05/11/24 16:03) Itching morphine Adverse Reaction (Severe, Verified 05/11/24 16:03) vomiting IV IV Catheter Type [Left Saline Lock Antecubital] IV Catheter Gauge [Left 18 Antecubital] Diet Orders Category Date Time Status Diabetes Consistent CHO/Heart Healthy [DIET] Nutrition 06/23/24 Breakfast Ordered Diagnostics 06/22/24 06/22/24 06/22/24 Range/Units 23:18 21:01 21:00 WBC (4.4-10.8) 10^3/uL RBC (4.36-5.78) 10^6/uL Hgb (13.5-17.5) g/dL Hct (40.0-50.0) % MCV (80-95) fL MCH (27.0-33.0) pg MCHC (32.0-36.0) % RDW (11.8-14.1) % Plt Count (130-400) 10^3/uL MPV (8.0-11.0) fL Immature Gran % % Neutrophils % % Lymphocytes % % Monocytes % % Eosinophils % % Basophils % % Nucleated RBC % (0.0-0.3) % Absolute Neutrophils (1.2-6.7) 10^3/uL Absolute Lymphocytes (1.2-3.4) 10^3/uL Absolute Monocytes (0.1-0.8) 10^3/uL Absolute Eosinophils (0.0-0.7) 10^3/uL Absolute Basophils (0.0-0.2) 10^3/uL PT (9.1-11.1) sec INR (0.9-1.1) Sodium (136-145) mmol/L Potassium (3.5-5.1) mmol/L Chloride (98-107) mmol/L Carbon Dioxide (21.0-32.0) mmol/L Anion Gap (3-11) mmol/L BUN (7-18) mg/dL Creatinine (0.70-1.30) mg/dL Est GFR (CKD-EPI 2020) (mL/min/1.73m2) Glucose (74-106) mg/dL Calcium (8.5-10.1) mg/dL Magnesium (1.8-2.4) mg/dL Total Bilirubin (0.2-1.0) mg/dL AST (15-37) U/L ALT (16-63) U/L Alkaline Phosphatase (46-116) U/L Ammonia (11-32) umol/L Troponin I 103 H* (< or =60) ng/L NT-Pro-B Natriuret Pep (<300) pg/mL Total Protein (6.4-8.2) g/dL Albumin (3.4-5.0) g/dL TSH (0.36-3.74) uIU/Ml Urine Color Brown Yellow (Yellow) Urine Clarity Cloudy Cloudy (Clear) Urine pH 6.0 6.0 (5-8) Ur Specific [place] 1.025 1.025 (1.005-1.025) Urine Protein >=300 H 100 H (Neg-Trace) mg/dL Urine Ketones Negative Negative (Negative) mg/dL Urine Blood Large H Large H (Negative) Urine Nitrite Positive H Negative (Negative) Urine Bilirubin Small H Negative (Negative) Urine Urobilinogen 2.0 H 1.0 H (Up to 0.2) mg/dL Ur Leukocyte Esterase Negative Negative (Negative) Urine RBC >50 H >50 H (0-2) HPF Urine WBC Not Applicable Not Applicable Ur Epithelial Cells Not Applicable Not Applicable Urine Crystals Not Applicable Not Applicable Urine Bacteria Many Many (Negative) HPF Urine Mucus Not Applicable Not Applicable Ur Culture Indicated? No No Urine Glucose >=1000 H 500 H (Negative) mg/dL 06/22/24 06/22/24 Range/Units 18:58 18:50 WBC 7.08 (4.4-10.8) 10^3/uL RBC 4.75 (4.36-5.78) 10^6/uL Hgb 14.5 (13.5-17.5) g/dL Hct 42.6 (40.0-50.0) % MCV 90 (80-95) fL MCH 30.5 (27.0-33.0) pg MCHC 34.0 (32.0-36.0) % RDW 15.1 H (11.8-14.1) % Plt Count 124 L (130-400) 10^3/uL MPV 10.3 (8.0-11.0) fL Immature Gran % 0.3 % Neutrophils % 73.0 % Lymphocytes % 13.8 % Monocytes % 8.5 % Eosinophils % 3.8 % Basophils % 0.6 % Nucleated RBC % 0.0 (0.0-0.3) % Absolute Neutrophils 5.17 (1.2-6.7) 10^3/uL Absolute Lymphocytes 0.98 L (1.2-3.4) 10^3/uL Absolute Monocytes 0.60 (0.1-0.8) 10^3/uL Absolute Eosinophils 0.27 (0.0-0.7) 10^3/uL Absolute Basophils 0.04 (0.0-0.2) 10^3/uL PT 12.1 H (9.1-11.1) sec INR 1.2 H (0.9-1.1) Sodium 142 (136-145) mmol/L Potassium 3.6 (3.5-5.1) mmol/L Chloride 107 (98-107) mmol/L Carbon Dioxide 21.0 (21.0-32.0) mmol/L Anion Gap 14.0 H (3-11) mmol/L BUN 13 (7-18) mg/dL Creatinine 1.2 (0.70-1.30) mg/dL Est GFR (CKD-EPI 2020) 62.29 (mL/min/1.73m2) Glucose 226 H (74-106) mg/dL Calcium 9.7 (8.5-10.1) mg/dL Magnesium 1.9 (1.8-2.4) mg/dL Total Bilirubin 2.55 H (0.2-1.0) mg/dL AST 29 (15-37) U/L ALT 16 (16-63) U/L Alkaline Phosphatase 131 H (46-116) U/L Ammonia 131 H (11-32) umol/L Troponin I 92 H* (< or =60) ng/L NT-Pro-B Natriuret Pep 1105 H (<300) pg/mL Total Protein 7.5 (6.4-8.2) g/dL Albumin 3.3 L (3.4-5.0) g/dL TSH 17.10 H (0.36-3.74) uIU/Ml Urine Color (Yellow) Urine Clarity (Clear) Urine pH (5-8) Ur Specific [place] (1.005-1.025) Urine Protein (Neg-Trace) mg/dL Urine Ketones (Negative) mg/dL Urine Blood (Negative) Urine Nitrite (Negative) Urine Bilirubin (Negative) Urine Urobilinogen (Up to 0.2) mg/dL Ur Leukocyte Esterase (Negative) Urine RBC (0-2) HPF Urine WBC Ur Epithelial Cells Urine Crystals Urine Bacteria (Negative) HPF Urine Mucus Ur Culture Indicated? Urine Glucose (Negative) mg/dL Intake and Output - 24 Hour Total 06/22/24 18:34 thru 06/22/24 20:35 Intake Total 500 Balance 500 Weight 101.831 kg Intake: IV 500 Falls Risk Assessment History of Falls Admit Due to Fall 06/22/24 18:46 Contributing Factors No Factors,Confusion, 06/22/24 18:46 Unstable,Medications Ambulatory Aids Independent 06/22/24 18:46 Tubes/Lines None 06/22/24 18:46 Gait Evaluation No gait disturbance 06/22/24 18:46 Cognition No cognitive impairment 06/22/24 18:46 Fall Total Score 34 06/22/24 18:46 Level of Risk Moderate Risk 06/22/24 18:46 Problems (Last Updated 06/22/24 @ 23:16 by Phoenix Jim) 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 Information / Comments: Report received from: Willa FAUST at [id number]
[2024-06-23] VITALS (13 sets, daily range): BP systolic 78–174; BP diastolic 40–89; PULSE 61–89; RESP 15–20; TEMP 36.3–37; O2SAT 89–96
[2024-06-23] MEDS: MAGNESIUM SULFATE 2 GM/50 ML BAG IVINF (01:38)
[2024-06-23] MEDS: Lactulose 20 GM/30 ML CUP PO ×4 (01:38→20:57)
[2024-06-23] MEDS: Prazosin 5 MG CAP 10 MG PO ×2 (03:03→21:02)
[2024-06-23 03:37] LABS: Troponin I 125 ng/L (< or =60)
[2024-06-23] MEDS: Levothyroxine 200 MCG TAB 100 MCG PO (06:13)
[2024-06-23 07:24] LABS: HCT 39.4 % (40.0-50.0); HGB 13.2 g/dL (13.5-17.5); MCH 30.3 pg (27.0-33.0); MCHC 33.5 % (32.0-36.0); MCV 90 fL (80-95); MPV 10.4 fL (8.0-11.0); RBC 4.36 10^6/uL (4.36-5.78); RDW 15.1 % (11.8-14.1); RDW-SD 50.5 fL; WBC 4.98 10^3/uL (4.4-10.8)
[2024-06-23 07:37] LABS: Platelet Count 97 10^3/uL (130-400)
[2024-06-23 07:42] LABS: ALT 17 U/L (16-63); AST 31 U/L (15-37); Alkaline Phosphatase 114 U/L (46-116); Anion Gap 13.1 mmol/L (3-11); BUN 16 mg/dL (7-18); Bilirubin, Total 2.42 mg/dL (0.2-1.0); CO2 20.9 mmol/L (21.0-32.0); CREATININE 1.4 mg/dL (0.70-1.30); Calcium 9.3 mg/dL (8.5-10.1); Chloride 108 mmol/L (98-107); Estimated GFR 51.77 (mL/min/1.73m2); Glucose 194 mg/dL (74-106); Magnesium 2.4 mg/dL (1.8-2.4); Potassium 3.4 mmol/L (3.5-5.1); Sodium 142 mmol/L (136-145); Total Protein 6.4 g/dL (6.4-8.2)
[2024-06-23 07:51] LABS: Troponin I 109 ng/L (< or =60)
[2024-06-23] MEDS: Normal Saline Flush 10 ML SYR IVP ×2 (08:00→21:03)
[2024-06-23] MEDS: Normal Saline 500 ML 1000 ML IV ×2 (08:00→08:35)
--- NOTE | 2024-06-23 08:00 | RT.EKG_ITS ---
APPROVED REPORT Exam: Resting ECG Reason for Exam: elevated troponins Patient Location: I HR:74 bpm ECG Measurements Heart Rate 74 AXIS WA 233 P -34 QRSd 117 QRS 30 QT 431 T 137 QTc 479 Conclusion Sinus rhythm...normal P axis, V-rate 50- 99 Multiple ventricular premature complexes...V complexes w/ short R-R intervls Prolonged WA interval...WA >220, V-rate 50- 90 Nonspecific intraventricular conduction delay...QRSd >115mS, not LBBB/RBBB Anteroseptal infarct, old...Q >40mS, V1-V2 Nonspecific repol abnormality, lateral leads...ST dep, T neg, I aVL V5 V6
--- NOTE | 2024-06-23 08:47 | W.PM.PROGNOT ---
Date of Service Date of service: 06/23/24 Time of Service: 08:51 Assessment and Plan Assessment and plan (1) Encephalopathy, hepatic: Start date: 06/22/24 Status: Acute Assessment and plan: -presented with increase confusion at home and elevated ammonia level. -He does have chronic cirrhosis without ascites having TIPS procedure in the past. -patient may not be taking his lactulose routinely with no reported increase in stooling with colostomy bag. -started on lactulose TID, will continue (2) Elevated troponin level not due myocardial infarction: Start date: 06/22/24 Status: Acute Assessment and plan: -Patient has had elevated troponins in the past and does not appear to be from acute cardiac ischemia but he does complain of intermittent resting sharp chest pain. -trop peaked at 125 and has since decreased to 109 (3) Cirrhosis of liver without ascites: Status: Chronic Assessment and plan: -Status post hip procedure in the past without studies and patient appearing fairly stable. -Continue to monitor labs with this most likely causing patient's hepatic encephalopathy. -Patient is chronically on rifaximin which will be continued -MELD Na 15; 6% 3 month mortality rate -f/u AM CMP and INR Qualifiers: Hepatic cirrhosis type: unspecified hepatic cirrhosis Qualified Code(s): K74.60 - Unspecified cirrhosis of liver (4) PAF (paroxysmal atrial fibrillation): Status: Chronic Assessment and plan: -Patient presently in sinus rhythm with frequent PVCs. -Replete magnesium and continue cardiac monitoring (5) Hypertension: Status: Chronic Assessment and plan: -patient was hypotensive AM 06/23 down to 80 systolic which improved after 500 of a 1000ml NS bolus -likely due to combination of antihypertensives, lactulose, and cirrhosis -holding home losartan and lasix while continuing lactulose for encephalopathy Qualifiers: Hypertension type: primary hypertension Qualified Code(s): I10 - Essential (primary) hypertension (6) Type 2 diabetes mellitus: Status: Chronic Assessment and plan: -Continue Jardiance but hold metformin and check glucometers before meals and at bedtime with moderate dose short acting insulin sliding scale coverage. Qualifiers: Diabetes mellitus terminal make up operator insulin use: without terminal make up operator use Diabetes mellitus complication status: with kidney complications Diabetes mellitus complication detail: with chronic kidney disease Chronic kidney disease stage: stage 2 (mild) Qualified Code(s): E11.22 - Type 2 diabetes mellitus with diabetic chronic kidney disease; N18.2 - Chronic kidney disease, stage 2 (mild) (7) ANETTE (obstructive sleep apnea): Status: Chronic Assessment and plan: -Evaluate for treatment and the patient is on home positive pressure treatment, continue while hospitalized. (8) CHF (congestive heart failure): Status: Chronic Assessment and plan: -Continue outpatient medical therapy monitoring labs. This appears to be stable. Qualifiers: Heart failure type: diastolic Heart failure chronicity: chronic Qualified Code(s): I50.32 - Chronic diastolic (congestive) heart failure Subjective Subjective Interval history since last seen: Patient states that he is a little tired but is beginning to feel a little better as compared to when he was admitted. Exam Narrative Exam Narrative: chronically ill, fatigued appearing older gentleman laying in bed in no acute distress, awakens for conversation but easily falls about to sleep, is oriented to person, place, and time, heart RRR, lungs CTAB, abdomen obese, soft, non-distended Objective Last Vital Signs Temp 97.9 F 06/23/24 08:20 Pulse 63 06/23/24 08:43 Resp 18 06/23/24 08:20 BP 100/60 06/23/24 08:43 Pulse Ox 92 06/23/24 08:43 Laboratory Results - last 24 hr 06/22/24 06/22/24 06/22/24 18:50 18:58 21:00 WBC 7.08 RBC 4.75 Hgb 14.5 Hct 42.6 MCV 90 MCH 30.5 MCHC 34.0 RDW 15.1 H Plt Count 124 L MPV 10.3 Immature Gran % 0.3 Neutrophils % 73.0 Lymphocytes % 13.8 Monocytes % 8.5 Eosinophils % 3.8 Basophils % 0.6 Nucleated RBC % 0.0 Absolute Neutrophils 5.17 Absolute Lymphocytes 0.98 L Absolute Monocytes 0.60 Absolute Eosinophils 0.27 Absolute Basophils 0.04 PT 12.1 H INR 1.2 H Sodium 142 Potassium 3.6 Chloride 107 Carbon Dioxide 21.0 Anion Gap 14.0 H BUN 13 Creatinine 1.2 Est GFR (CKD-EPI 2020) 62.29 Glucose 226 H Calcium 9.7 Magnesium 1.9 Total Bilirubin 2.55 H AST 29 ALT 16 Alkaline Phosphatase 131 H Ammonia 131 H Troponin I 92 H* NT-Pro-B Natriuret Pep 1105 H Total Protein 7.5 Albumin 3.3 L TSH 17.10 H Urine Color Yellow Urine Clarity Cloudy Urine pH 6.0 Ur Specific [place] 1.025 Urine Protein 100 H Urine Ketones Negative Urine Blood Large H Urine Nitrite Negative Urine Bilirubin Negative Urine Urobilinogen 1.0 H Ur Leukocyte Esterase Negative Urine RBC >50 H Urine WBC Not Applicable Ur Epithelial Cells Not Applicable Urine Crystals Not Applicable Urine Bacteria Many Urine Mucus Not Applicable Ur Culture Indicated? No Urine Glucose 500 H 06/22/24 06/22/24 06/23/24 21:01 23:18 03:02 WBC RBC Hgb Hct MCV MCH MCHC RDW Plt Count MPV Immature Gran % Neutrophils % Lymphocytes % Monocytes % Eosinophils % Basophils % Nucleated RBC % Absolute Neutrophils Absolute Lymphocytes Absolute Monocytes Absolute Eosinophils Absolute Basophils PT INR Sodium Potassium Chloride Carbon Dioxide Anion Gap BUN Creatinine Est GFR (CKD-EPI 2020) Glucose Calcium Magnesium Total Bilirubin AST ALT Alkaline Phosphatase Ammonia Troponin I 103 H* 125 H* NT-Pro-B Natriuret Pep Total Protein Albumin TSH Urine Color Brown Urine Clarity Cloudy Urine pH 6.0 Ur Specific [place] 1.025 Urine Protein >=300 H Urine Ketones Negative Urine Blood Large H Urine Nitrite Positive H Urine Bilirubin Small H Urine Urobilinogen 2.0 H Ur Leukocyte Esterase Negative Urine RBC >50 H Urine WBC Not Applicable Ur Epithelial Cells Not Applicable Urine Crystals Not Applicable Urine Bacteria Many Urine Mucus Not Applicable Ur Culture Indicated? No Urine Glucose >=1000 H 06/23/24 07:10 WBC 4.98 RBC 4.36 Hgb 13.2 L Hct 39.4 L MCV 90 MCH 30.3 MCHC 33.5 RDW 15.1 H Plt Count 97 L MPV 10.4 Immature Gran % Neutrophils % Lymphocytes % Monocytes % Eosinophils % Basophils % Nucleated RBC % Absolute Neutrophils Absolute Lymphocytes Absolute Monocytes Absolute Eosinophils Absolute Basophils PT INR Sodium 142 Potassium 3.4 L Chloride 108 H Carbon Dioxide 20.9 L Anion Gap 13.1 H BUN 16 Creatinine 1.4 H Est GFR (CKD-EPI 2020) 51.77 Glucose 194 H Calcium 9.3 Magnesium 2.4 Total Bilirubin 2.42 H AST 31 ALT 17 Alkaline Phosphatase 114 Ammonia Troponin I 109 H* NT-Pro-B Natriuret Pep Total Protein 6.4 Albumin 3.0 L TSH Urine Color Urine Clarity Urine pH Ur Specific [place] Urine Protein Urine Ketones Urine Blood Urine Nitrite Urine Bilirubin Urine Urobilinogen Ur Leukocyte Esterase Urine RBC Urine WBC Ur Epithelial Cells Urine Crystals Urine Bacteria Urine Mucus Ur Culture Indicated? Urine Glucose Time Spent with Patient Time Spent with Patient: >50 minutes Time was spent: preparing to see the patient(eg.review tests), obtaining and/or reviewing separately otained hiistory, ordering medications,tests, procedures, referring, communicating with other health child care specialist, indepentently interpreting results, counseling the patient and care coordination
--- NOTE | 2024-06-23 08:57 | INITIAL_ITS ---
Date of service: 06/23/24 Time of Service: 08:57 Care Management Initial Assmt Initial Assessment Reason for Hospitalization: hepatic Encephalopathy Functional Status/Living Situation Patient Presentation: Merrill was sitting up in bed when CM met with him. He appeared to be in good spirits and engaged well with CM, well known to him from previous hospital stays. Merrill stated that things have been going pretty well at home. He had decided to stop taking his lactulose because it increased the stool output from his colostomy. He stated that his bag was filling up every 20 to 30 minutes when taking the lactulose. His family noted increasing confusion and called EMS. Merrill talked about his family at home and challenges he and his are facing as they age. He is fairly independent with ADLs and his Cely helps him as needed. Merrill uses a walker for ambulation and has monthly visits from his [facility] nurse. Town of Residence: [place] Resides with: Spouse ( Cely and son Scott) Significant Other/Family: Out of area (family in [facility]) Employment Status: Retired Instrumental Activities of Daily Living (ADLs): Independent Medications Medication Management: Issues/Barriers with Instructions/Directions (noncomplian t with medications) Physical Functioning/Mobility Assistive Device: uses a walker Advance Directives Advance Directives: Do you have an Advance Directive: N 03/13/24 20:44 AD On File at [facility]: N 06/17/23 16:15 Date Asked 05/11/24 05/11/24 09:54 AD Date Reviewed COLST On File at [facility] No 12/04/23 16:58 COLST Date Scanned Code Status Resuscitation Status Full Code Portal Pt does not currently have a portal and education provided: No Insurance Coverage/Financial Issues Insurance: [place] medicare Care Team Visit Care Team Role Provider Type Maryann Whitt Primary Care Provider NURSE PRACTITIONER Terese Jennings MD Emergency Provider [facility] STAFF PHYSICIAN Phoenix Jim Admit Provider NON-[facility] STAFF PHYSICIAN Attending Provider Discharge Potential Discharge Needs: PCP F/U Appt Anticipated Barriers to Discharge: None Identified Patient/Family Education Needs: Review discharge instructions, discuss Ask Me Three Transportation: Private vehicle Plan: Anticipate Merrill will be discharged home, possibly with new home health services for RN and/or PT when medically cleared by provider. He will follow up with his PCP at the [facility] and his plan of care. CM will follow and continue to assess for discharge needs. 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) Elevated troponin level not due myocardial infarction (Acute) Diabetes (Chronic) Leukopenia (Acute) Oral candidiasis (Acute) Sepsis syndrome (Acute) PAF (paroxysmal atrial fibrillation) (Chronic) Gram-negative bacteremia (Acute) Cellulitis (Acute) Lower urinary obstructive symptom (Acute) Encephalopathy, hepatic (Acute) Anemia of chronic disease (Acute) Thrombocytopenia (Chronic) Ventricular ectopy (Acute) Sinus bradycardia (Acute) Leukocytosis (Acute) Hypertension (Chronic) Elevated lactic acid level (Acute) CHF (congestive heart failure) (Chronic) No-show for appointment (Acute) Left rotator cuff tear (Acute) Acute UTI (urinary tract infection) (Acute) Weakness (Acute) Non-ST elevation AR (NSTEMI) (Acute) Pre-syncope (Acute) Frequent falls (Acute) Orthostatic hypotension (Acute) Chronic atrial fibrillation (Chronic) Type 2 diabetes mellitus (Chronic) Hypokalemia (Acute) Bradycardia (Acute) Multiple falls (Acute) Acute metabolic encephalopathy (Acute) Medication monitoring encounter (Acute) ANETTE (obstructive sleep apnea) (Chronic) Chest pain (Acute) CHF exacerbation (Acute) CHF (congestive heart failure) (Chronic) EF 25%- 2023 Medical History (Updated 06/22/24 @ 23:16 by Phoenix Jim) Bowel obstruction Sepsis Heart failure with reduced ejection fraction Hypothyroidism Small bowel obstruction Lactic acid acidosis Creatinine elevation Acute UTI Anticoagulated COVID Chronic low back pain Recurrent intestinal obstruction History of colon cancer Palliative care encounter Followed by [facility] Chronic anticoagulation Portal hypertension Cirrhosis TIPs placed (?when, [facility]? 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, Dx [facility] as per pt Non-insulin dependent type 2 diabetes mellitus Incontinence Hypertension Scleral icterus Surgical History S/P TIPS (transjugular intrahepatic portosystemic shunt) H/O left hemicolectomy Colostomy in place Social History Smoking/Tobacco Use Status: Former Tobacco Use Smoking risk assessment performed?: Yes Alcohol Intake: former Drug use: Never Substance use type: does not use Housing: house Do you feel safe at home: Yes Do you feel safe in your relationship?: Yes Additional Social history: Lives with , son, and sick [id number] in [place], moved [place] from [place] in 2020. [place]. SDOH(Care Management) Screening Will the Patient Participate in the Screening?: Yes Do you worry about having a steady place to live?: no Problems where you live: no known problems In the past 12 months, have you had to go without electric, gas, oil or water in your home?: no Have you or anyone in your house had to go without enough food to eat?: no Has lack of transportation kept you from medical appointments or from doing things needed for daily living?: no Has anyone in your support network made you feel unsafe for any reason?: no
[2024-06-23] MEDS: Tamsulosin 0.4 MG CAPCR PO (10:00)
[2024-06-23] MEDS: Apixaban 5 MG TAB PO (10:00)
[2024-06-23] MEDS: Empaglifozin 25 MG TAB PO (10:00)
[2024-06-23] MEDS: Cholecalciferol (Vitamin D3) 1,000 UNIT TAB 1000 UNITS PO (10:00)
[2024-06-23] MEDS: Pregabalin 50 MG CAP PO ×2 (10:00→20:58)
[2024-06-23] MEDS: Ferrous Sulfate 325 MG TAB PO (10:00)
[2024-06-23] MEDS: Rifaximin 550 MG TAB PO ×2 (10:01→20:59)
[2024-06-23] MEDS: Docusate Sodium 100 MG CAP PO ×2 (10:01→20:58)
[2024-06-23] MEDS: Venlafaxine 150 MG CAPCR PO (10:01)
[2024-06-23] MEDS: Insulin Aspart 300 UNITS/3 ML PEN SC ×3 (11:46→20:57)
[2024-06-23] MEDS: Carvedilol 3.125 MG TAB PO (17:07)
[2024-06-23] MEDS: Rosuvastatin 20 MG TAB 40 MG PO (20:58)
[2024-06-24] VITALS (7 sets, daily range): BP systolic 95–159; BP diastolic 55–76; PULSE 60–71; RESP 15–18; TEMP 35.2–37.1; O2SAT 92–95
[2024-06-24 06:19] LABS: HCT 37.9 % (40.0-50.0); HGB 12.6 g/dL (13.5-17.5); MCH 30.7 pg (27.0-33.0); MCHC 33.2 % (32.0-36.0); MCV 92 fL (80-95); RDW 15.5 % (11.8-14.1); WBC 4.47 10^3/uL (4.4-10.8)
[2024-06-24] MEDS: Levothyroxine 200 MCG TAB 100 MCG PO (06:22)
[2024-06-24 06:28] LABS: INR 1.2 (0.9-1.1); Prothrombin Time 11.8 sec (9.1-11.1)
[2024-06-24 06:37] LABS: ALT 13 U/L (16-63); AST 29 U/L (15-37); Albumin 2.7 g/dL (3.4-5.0); Alkaline Phosphatase 101 U/L (46-116); Anion Gap 11.4 mmol/L (3-11); BUN 19 mg/dL (7-18); CO2 21.6 mmol/L (21.0-32.0); CREATININE 1.3 mg/dL (0.70-1.30); Calcium 9.3 mg/dL (8.5-10.1); Chloride 108 mmol/L (98-107); Estimated GFR 56.58 (mL/min/1.73m2); Glucose 161 mg/dL (74-106); Potassium 3.3 mmol/L (3.5-5.1); Sodium 141 mmol/L (136-145); Total Protein 6.1 g/dL (6.4-8.2)
[2024-06-24 06:38] LABS: Platelet Count 86 10^3/uL (130-400)
[2024-06-24] MEDS: Tamsulosin 0.4 MG CAPCR PO (07:38)
[2024-06-24] MEDS: Insulin Aspart 300 UNITS/3 ML PEN SC ×4 (08:06→21:42)
[2024-06-24] MEDS: Lactulose 20 GM/30 ML CUP PO ×3 (08:08→20:26)
[2024-06-24] MEDS: Carvedilol 3.125 MG TAB PO ×2 (08:09→17:21)
[2024-06-24] MEDS: Venlafaxine 150 MG CAPCR PO (08:09)
[2024-06-24] MEDS: Ferrous Sulfate 325 MG TAB PO (08:09)
[2024-06-24] MEDS: Rifaximin 550 MG TAB PO ×2 (08:09→20:26)
[2024-06-24] MEDS: Cholecalciferol (Vitamin D3) 1,000 UNIT TAB 1000 UNITS PO (08:10)
[2024-06-24] MEDS: Pregabalin 50 MG CAP PO ×2 (08:10→20:26)
[2024-06-24] MEDS: Spironolactone 25 MG TAB PO (08:10)
[2024-06-24] MEDS: Empaglifozin 25 MG TAB PO (08:10)
[2024-06-24] MEDS: Docusate Sodium 100 MG CAP PO ×2 (08:10→20:26)
[2024-06-24] MEDS: Normal Saline Flush 10 ML SYR IVP ×2 (08:14→20:27)
--- NOTE | 2024-06-24 09:11 | PDOC.CMPRO ---
Date of service: 06/24/24 Time of Service: 09:11 Care Management Progress Note Progress Note Text Progress Note Text: Merrill was sitting up in bed when CM met with him. He stated he is feeling much better than yesterday and confirmed that he is no longer having hallucinations. Merrill's Cely was visiting at the time and joined the discussion.The conversation centered around Merrill's condition at the time of admission and the confusion he was experiencing. Cely informed CM that Merrill had been taking his Lactulose;she did not realize he had stopped due to diarrhea. Cely had questions about medical follow up for Merrill's liver problems. Cely also talked about Merrill's hematuria. CM reported that there would likely be a referral to Urology at discharge for outpatient followup. This afternoon his urine was clearer and no clots have been identified. Discharge Potential Discharge Needs: PCP F/U Appt Anticipated Barriers to Discharge: None Identified Patient/Family Education Needs: Review discharge instructions, discuss Ask Me Three Transportation: Private vehicle Plan: Anticipate Merrill will be discharged home, possibly with new home health services for RN and/or PT when medically cleared by provider. He will follow up with his PCP at the [facility] and his plan of care. CM will follow and continue to assess for discharge needs. SDOH(Care Management) Screening Will the Patient Participate in the Screening?: Yes Do you worry about having a steady place to live?: no Problems where you live: no known problems In the past 12 months, have you had to go without electric, gas, oil or water in your home?: no Have you or anyone in your house had to go without enough food to eat?: no Has lack of transportation kept you from medical appointments or from doing things needed for daily living?: no Has anyone in your support network made you feel unsafe for any reason?: no
--- NOTE | 2024-06-24 14:33 | W.PM.PROGNOT ---
Date of Service Date of service: 06/24/24 Time of Service: 14:34 Assessment and Plan Assessment and plan (1) Encephalopathy, hepatic: Start date: 06/22/24 Status: Acute Assessment and plan: -presented with increase confusion at home and elevated ammonia level. 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 -patient may not be taking his lactulose routinely with no reported increase in stooling with colostomy bag. -continue lactulose TID and rifaximin. -His encephalopathy does appear to be clearing. He may be ready for discharge by tomorrow. (2) Elevated troponin level not due myocardial infarction: Start date: 06/22/24 Status: Acute Assessment and plan: -Patient has had elevated troponins in the past and does not appear to be from acute cardiac ischemia but he does complain of intermittent resting sharp chest pain. -trop peaked at 125 and has since decreased to 109. 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 -Continue to monitor labs with this most likely causing patient's hepatic encephalopathy. -Patient is chronically on rifaximin which will be continued -MELD Na 15 on admission; 6% 3 month mortality rate -f/u LFTs show slight improvement, INR stable. Qualifiers: Hepatic cirrhosis type: unspecified hepatic cirrhosis Qualified Code(s): K74.60 - Unspecified cirrhosis of liver (4) PAF (paroxysmal atrial fibrillation): Status: Chronic Assessment and plan: -Patient presently in sinus rhythm with frequent PVCs. -Replete magnesium and continue cardiac monitoring (5) Hypertension: Status: Chronic Assessment and plan: -patient was hypotensive AM 06/23 and early 06/24, was responsive given 500ml NS bolus -I think this pattern is due to qhs doxazosin on top of tamsulosin. I will stop this, double tamsulosin. Plan to resume losartan as he has been normal to high during the day, though BID dosing preferable to level out BP. Qualifiers: Hypertension type: primary hypertension Qualified Code(s): I10 - Essential (primary) hypertension (6) Type 2 diabetes mellitus: Status: Chronic Assessment and plan: -Continue Jardiance but hold metformin and check glucometers before meals and at bedtime with moderate dose short acting insulin sliding scale coverage. Qualifiers: Diabetes mellitus terminal gauger insulin use: without long-term use Diabetes mellitus complication status: with kidney complications Diabetes mellitus complication detail: with chronic kidney disease Chronic kidney disease stage: stage 2 (mild) Qualified Code(s): E11.22 - Type 2 diabetes mellitus with diabetic chronic kidney disease; N18.2 - Chronic kidney disease, stage 2 (mild) (7) ANETTE (obstructive sleep apnea): Status: Chronic Assessment and plan: -Evaluate for treatment and the patient is on home positive pressure treatment, continue while hospitalized. (8) CHF (congestive heart failure): Status: Chronic Assessment and plan: -Continue outpatient medical therapy monitoring labs. This still appears to be stable. Qualifiers: Heart failure type: diastolic Heart failure chronicity: chronic Qualified Code(s): I50.32 - Chronic diastolic (congestive) heart failure (9) Hematuria: Status: Acute Assessment and plan: In setting of anticoagulation, but should be worked up given his risks. He did have a contrast CT abd/pelvis which was reassuring, though it was not a full CT urogram. Bleeding is not copious. He should have follow up with urology as an outpatient to consider cystoscopy. Qualifiers: Hematuria type: gross Qualified Code(s): R31.0 - Gross hematuria (10) Lower urinary obstructive symptom: Status: Acute Assessment and plan: monitor for retention off doxazosin, tamsulosin increased as above (he was on both). Subjective Subjective Patient reports: no new complaints and voiding w/o difficulty; denies nausea, vomiting or fever Interval history since last seen: He is feeling better. Not shaking. He is eating. He is still worried about the blood he had in his urine. He had once before since starting apixaban. Exam Narrative Exam Narrative: chronically ill, fatigued appearing older gentleman laying in bed in no acute distress, now alert, is oriented to person, place, and time. Heart RRR, no murmur. Lungs CTAB, normal effort. Abd: +BS, soft, non-distended. Ext: no cyanosis or edema Objective Last Vital Signs Temp 36.1 C L 06/24/24 11:48 Pulse 60 06/24/24 11:48 Resp 16 06/24/24 11:48 BP 123/55 L 06/24/24 11:48 Pulse Ox 93 06/24/24 11:48 Laboratory Results - last 24 hr 06/24/24 05:36 WBC 4.47 RBC 4.10 L Hgb 12.6 L Hct 37.9 L MCV 92 MCH 30.7 MCHC 33.2 RDW 15.5 H Plt Count 86 L MPV 11.0 PT 11.8 H INR 1.2 H Sodium 141 Potassium 3.3 L Chloride 108 H Carbon Dioxide 21.6 Anion Gap 11.4 H BUN 19 H Creatinine 1.3 Est GFR (CKD-EPI 2020) 56.58 Glucose 161 H Calcium 9.3 Total Bilirubin 1.70 H AST 29 ALT 13 L Alkaline Phosphatase 101 Total Protein 6.1 L Albumin 2.7 L Time Spent with Patient Time Spent with Patient: >50 minutes Time was spent: preparing to see the patient(eg.review tests), obtaining and/or reviewing separately otained hiistory, ordering medications,tests, procedures, referring, communicating with other health healthcare administration internship, indepentently interpreting results, counseling the patient and care coordination
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
[2024-06-24] MEDS: Potassium Chloride Liquid 20 MEQ PKT PO (17:50)
[2024-06-24] MEDS: Apixaban 5 MG TAB PO (20:26)
[2024-06-24] MEDS: Pantoprazole 40 MG TABCR PO (20:26)
[2024-06-24] MEDS: Losartan 25 MG TAB PO (20:26)
[2024-06-24] MEDS: Rosuvastatin 20 MG TAB 40 MG PO (20:26)
--- NOTE | 2024-06-24 21:00 | RT.EKG_ITS ---
APPROVED REPORT Exam: Resting ECG Reason for Exam: rhythm change Patient Location: I HR:62 bpm ECG Measurements Heart Rate 62 AXIS AK 233 P 0 QRSd 113 QRS 49 QT 440 T -19 QTc 447 Conclusion Sinus rhythm...normal P axis, V-rate 50- 99 Multiple ventricular premature complexes...V complexes w/ short R-R intervls Prolonged AK interval...AK >220, V-rate 50- 90
[2024-06-25 02:49] VITALS: BP 151/72; PULSE 71; RESP 18; TEMP 36.7; O2SAT 93
[2024-06-25] MEDS: Levothyroxine 200 MCG TAB 100 MCG PO (06:16)
[2024-06-25 06:48] LABS: Ammonia 65 umol/L (11-32)
[2024-06-25 07:12] LABS: ALT 19 U/L (16-63); AST 34 U/L (15-37); Albumin 2.9 g/dL (3.4-5.0); Alkaline Phosphatase 114 U/L (46-116); Anion Gap 8.3 mmol/L (3-11); BUN 17 mg/dL (7-18); CO2 23.7 mmol/L (21.0-32.0); Calcium 9.5 mg/dL (8.5-10.1); Chloride 108 mmol/L (98-107); Estimated GFR 77.52 (mL/min/1.73m2); Glucose 150 mg/dL (74-106); Sodium 140 mmol/L (136-145); Total Protein 6.3 g/dL (6.4-8.2)
[2024-06-25 07:19] VITALS: BP 150/64; PULSE 57; RESP 20; TEMP 36.8; O2SAT 92
[2024-06-25] MEDS: Tamsulosin 0.4 MG CAPCR 0.8 MG PO (09:16)
[2024-06-25] MEDS: Carvedilol 3.125 MG TAB PO (09:16)
[2024-06-25] MEDS: Lactulose 20 GM/30 ML CUP PO ×2 (09:16→13:39)
[2024-06-25] MEDS: Losartan 25 MG TAB 50 MG PO (09:17)
[2024-06-25] MEDS: Rifaximin 550 MG TAB PO (09:17)
[2024-06-25] MEDS: Venlafaxine 150 MG CAPCR PO (09:18)
[2024-06-25] MEDS: Apixaban 5 MG TAB PO (09:19)
[2024-06-25] MEDS: Pregabalin 50 MG CAP PO (09:19)
[2024-06-25] MEDS: Spironolactone 25 MG TAB PO (09:19)
[2024-06-25] MEDS: Empaglifozin 25 MG TAB PO (09:19)
[2024-06-25] MEDS: Cholecalciferol (Vitamin D3) 1,000 UNIT TAB 1000 UNITS PO (09:19)
[2024-06-25] MEDS: Ferrous Sulfate 325 MG TAB PO (09:20)
[2024-06-25] MEDS: Docusate Sodium 100 MG CAP PO (09:21)
[2024-06-25] MEDS: Normal Saline Flush 10 ML SYR IVP (09:22)
--- NOTE | 2024-06-25 10:41 | CMDISCH_ITS ---
Date of service: 06/25/24 Time of Service: 10:41 LACE Index Scoring Tool Questions: Length of Stay (in days): 3 Was the patient admitted via the E.D.?: Yes Comorbidities: Previous M.I., Diabetes w/o Complication, Congestive Heart Failure, Any Tumor and Liver or Renal Disease E.D. Visits: 7 Answers: Total Score: 15 Risk of Readmission: High Risk Care Management Discharge Plan Reason for Hospitalization: encephalopathy Discharge Plan: Merrill will be discharged home with new home health services for nursing and PT. He will follow up with his community providers and plan of care and transport with family. Patient/Family Education Needs: review of discharge instructions, limitations, follow up plan, discuss Ask Me Three Services Needed at Discharge: Home Health Care Services (PT, RN) SDOH Health Related Social Needs: Health related social needs details Unable to get in a nd out of home, ambulate or perform ADLs.
[2024-06-25 11:32] VITALS: BP 160/69; PULSE 69; RESP 18; TEMP 37.2; O2SAT 94
--- NOTE | 2024-06-25 13:41 | NUR.NOTE ---
Nursing Note: Pt states that he does not want to go home, it's nicer here. He has 9 birds and a dog at home and they are loud.
--- NOTE | 2024-06-25 15:08 | PDOC.HHF2F_ITS ---
Home Health Referral Home Health Orders Clinical synopsis of why skilled professionals are needed: recurrent hepatic encephalopathy, needs monitoring mental status, lactulose therapy in setting of colostomy. Also a fall risk Medical diagnosis necessitation home health referral: cirrhosis, hepatic encephalopathy, colostomy status, multiple falls, CAD Registered Nurse: Check all that apply Instruct on new or changed medication(s)/assess compliance: Ordered Instruct on ostomy care: Ordered (monitor for decreased or no output ) Assess for exacerbation of medical condition, instruct patient/caregivers on signs and symptoms to report for early detection: Ordered Other: Lantus injection teaching. Patient has to take his laxatives daily Physical Therapist: Check all that apply Increase strength & endurance for safe mobility at home: Ordered To design/establish home maintenance program: Ordered Fall reduction therapy program for patient with history of frequent falls: Ordered Home safety evaluation and teaching/gait training including stair management (if applicable): Ordered Occupational Therapist: Evaluate and treat for patient unable to perform ADL/IADL/self-care: Ordered Robot Programmer: Assist with community resources: Ordered Assist with half-way care planning: Ordered Home Bound Status Requires the aid of supportive device (check all that apply): Walker Patient has a condition such that leaving home is medically contraindicated (Describe): can't walk/cardiac EF 25% on 01/2024 Describe why leaving home would require a considerable and taxing effort: Requires frequent rest periods Encounter Date and Reason: I certify that a FTF encounter for this patient was performed on June 25, 2024 and that such encounter was related to the primary reason the patient requires home health services. The encounter was conducted in the following manner: * By me as the certifying physician, HOME HEALTH PHYSICAL THERAPIST, PA or * By an inpatient physician, HOME HEALTH PHYSICAL THERAPIST or PA during an inpatient stay who communicated findings to me, Certification And Authentication I certify that I composed the above information based on my clinical judgment relating to this patient's medical condition and, if applicable, clinical findings communicated to me by the NPP or inpatient physician who performed the FTF encounter. Name of Provider that will be monitoring home health services: Maryann Whitt
--- NOTE | 2024-06-25 15:11 | DSE_ITS ---
Date of service: 06/25/24 Time of Service: 15:11 DS: Diagnosis Discharge Diagnosis (1) Encephalopathy, hepatic: Status: Acute (2) Type 2 diabetes mellitus: Status: Chronic (3) Multiple falls: Status: Acute (4) CHF (congestive heart failure): Status: Chronic (5) Small bowel obstruction: (6) Palliative care encounter: Status: Acute (7) Advanced care planning/counseling discussion: Status: Acute (8) Chronic low back pain: Status: Chronic (9) Colostomy care: Status: Acute Discharge Plan Disposition Patient Disposition: Home W/Home Health Services Condition: Good Discharge Details Reason For Visit: Hepatic encephalopathy, Elevated troponins, PAF Admit Date/Time: 06/22/24 23:17 Admit Provider: Phoenix Jim Attending Provider: Phoenix Jim Primary Care Provider: Maryann Whitt Hospital Course Hospital Course: 79 yo M with cirrhosis s/p TIPS and history of associated recurrent hepatic encephalopathy was admitted with confusion and hallucinations. CT head was negative. He had stopped his lactulose due to excess watery stool in his colostomy bag. He was started back on lactulose along with rifaximin and his mental status gradually cleared. Options to vary his lactulose dose (but not stop it) were discussed with the patient. Home health was ordered to help with monitoring given his fluctuating mental status and recurrent admissions. He did have elevated troponin on admission. He had some intermittent chest pain but no changes to this pattern around the time of admission. The troponin went from 92 to 125 down to 109. This was felt not c consistent with ACS. He was continued on high intensity statin therapy along with anticoagulation, beta michael therapy with carvedilol. Low blood pressure overnight and business applications manager was noted, and he received 500ml bolus one morning. This was deemed related to his regimen of doxazosin qhs along with tamsulosin. Losartan had been held, but was resumed. Doxazosin was stopped and tamsulosin was doubled to 0.8mg. His post void residual was 20-40ml prior to discharge. The patient and staff noted gross hematuria. He is on apixaban. U/a showed >50 RBC withouth infection, and RBCs have been seen on every u/a since October. B leeding was never severe clinically, no clots noted. He did have a CT A/P with contrast on his April admission that did not show renal or pelvic pathology, but has not had a urogram. Urology consult was placed to consider cystoscopy as an outpatient. His TSH was high. His adherence to his levothyroxine was unclear. Change in his therapy was deferred to outpatient. Home Meds and New Rx's Prescriptions: Continued pantoprazole 40 mg Tablet,Delayed Release (Dr/Ec) 40 mg PO DAILY PRN pregabalin 50 mg Capsule 50 mg PO BID Eliquis 5 mg Tablet 5 mg PO BID nitroglycerin 0.4 mg Tablet, Sublingual 0.4 mg sublingual Q5 MIN PRN X3 PRNQty: 30 0RF miconazole nitrate 2 % Powder 1 applic TOPICAL BID PRN rifaximin 550 mg Tablet 550 mg PO BID ferrous sulfate 325 mg (65 mg iron) Tablet 325 mg PO DAILY empagliflozin 25 mg Tablet 25 mg PO DAILY furosemide [Lasix] 20 mg tablet 20 mg PO QAM levothyroxine 200 mcg Tablet 100 mcg PO QAM Qty: 0 0RF spironolactone 25 mg Tablet 25 mg PO DAILY Qty: 30 0RF cholecalciferol (vitamin D3) 25 mcg (1,000 unit) capsule 25 mcg PO DAILY diclofenac sodium [Arthritis Pain (diclofenac)] 1 % gel 2 g topical QID PRN Rx Instructions: apply to single elbow, wrist or hand; for hand includes palm/fingers/back of hand losartan 50 mg tablet 50 mg PO DAILY venlafaxine 150 mg capsule,extended release 24hr 150 mg PO DAILY lactulose 20 gram/30 mL Solution 20 g PO QD-TID Qty: 1800 11RF Rx Instructions: to maintain colostomy output of 3-4 bags per day rosuvastatin [Crestor] 20 mg Tablet 40 mg PO QPM Qty: 0 0RF furosemide 20 mg tablet 20 mg PO DAILY PRN (Reason: weight gain) Rx Instructions: In Addition to scheduled dose carvedilol phosphate 10 mg capsule, ER multiphase 24 hr 10 mg PO QHS Rx Instructions: must administer with a meal/food clobetasol 0.05 % cream 1 applic topical DAILY acetaminophen [Tylenol] 325 mg Capsule 975 mg PO Q8H MDD 3000 PRN metformin 500 mg tablet extended release 24hr 500 mg PO DAILY Qty: 30 0RF simethicone 80 mg tablet,chewable 80 mg PO BID-QID PRNQty: 90 0RF insulin glargine [Lantus Solostar U-100 Insulin] 100 unit/mL (3 mL) insulin pen 10 unit subcut QAM Qty: 15 0RF Changed tamsulosin 0.4 mg Capsule 0.8 mg PO DAILY Qty: 180 0RF Discontinued prazosin 5 mg Capsule 10 mg PO QHS docusate sodium [Colace] 100 mg Capsule 100 mg PO BID Qty: 60 0RF docusate sodium [Colace] 100 mg capsule 100 mg PO BID Qty: 60 0RF Discharge Instructions Instructions: Hepatic encephalopathy Referrals: Ivan Charles MD [ [facility] STAFF PHYSICIAN] - (79 yo with cirrhosis, afib on apixaban, BPH, recurrent hematuria without infection. Cystoscopy? Additional work up?) Activity:: Activity as Tolerated Equipment/Supplies:: No Equipment Needed Diet:: Carb Counting Discharge Orders Discharge Orders: Discharge Order (Routine); Ordered 06/25/24 Ordered By: lEia Arizmendi DS: Summary Time Spent with Patient providing and/or coordinating discharge services: Greater than 30 minutes Status at Discharge Functional status at discharge: uses cane/walker Overall status at discharge: patient is back to baseline Mental Status: mental status grossly normal Speech and Movement: speech and movement normal Mood: congruent mood Affect: normal affect Quality:SDOH Health Related Social Needs: Health related social needs transpo insecurity Exam Narrative Exam Narrative: Awake and alert. Pleasant elderly gentleman. Sits up on his own in bed moves around easily. No distress. Answers questions appropriately. Lungs CTAB, CV regular, no murmur. Abd soft, NT, not distended, no fluid wave. Speech is fluid. Not obviously jaundiced. Oriented to month, year, place, day, self. Psych Mental Status: mental status grossly normal Speech and Movement: speech and movement normal Mood: congruent mood Affect: normal affect DS: Data Vitals/I&O Vitals and I&O: Vital Signs Temperature 37.2 C 06/25/24 11:32 Temperature Source Temporal Artery Scan 06/25/24 11:32 Pulse 69 06/25/24 11:32 Pulse Rhythm Irregular 06/25/24 09:27 Pulse 74 06/22/24 21:32 Respiratory Rate 18 06/25/24 11:32 Respiratory Effort Normal 06/25/24 09:27 Respiratory Depth Normal 06/25/24 09:27 Respiratory Pattern Normal 06/25/24 09:27 Blood Pressure 160/69 H 06/25/24 11:32 Blood Pressure Mean 113 06/22/24 21:31 Blood Pressure Position Supine 06/22/24 18:41 Pulse Oximetry 94 06/25/24 11:32 Oxygen Delivery Method Room Air 06/25/24 11:32 Oxygen Flow Rate 0 06/25/24 11:32 Fraction of Inspired Oxygen (FIO2) 21 06/25/24 08:28 Pain Level 0 06/25/24 02:49 Comment RN notified. 06/25/24 11:32 Intake & Output 06/24/24 06/25/24 06/25/24 23:59 11:59 23:59 Intake Total 470 / 970 Output Total 600 / 725 1125 / 1125 Balance -130 / 245 -1125 / -1125 Weight 81 kg Intake: Oral 470 / 470 Output: Urine 600 / 725 825 / 825 Stool 300 / 300 Other: Urine Color Yellow Light Mady Urine Appearance Clear Clear Urine Odor None None Comment voided in toilet Stool Characteristics Soft Brown Voiding Methods Toilet Urinal Data Completed and Pending Labs on day of discharge: Labs from last 24 hours 06/25/24 06/25/24 06:24 06:24 Sodium 140 Potassium 4.0 Chloride 108 H Carbon Dioxide 23.7 Anion Gap 8.3 BUN 17 Creatinine 1.0 Est GFR (CKD-EPI 2020) 77.52 Glucose 150 H Calcium 9.5 Magnesium Cancelled 2.0 Total Bilirubin 2.20 H AST 34 ALT 19 Alkaline Phosphatase 114 Ammonia 65 H Total Protein 6.3 L Albumin 2.9 L PFSH All Active Problems (Updated 06/24/24 @ 20:44 by Clary Damian MD) Colostomy care (Acute) Advanced care planning/counseling discussion (Acute) Chronic low back pain (Chronic) Palliative care encounter (Acute) Followed by [facility] Hematuria (Acute) Cirrhosis of liver without ascites (Chronic) Elevated troponin level not due myocardial infarction (Acute) Diabetes (Chronic) Leukopenia (Acute) Oral candidiasis (Acute) Sepsis syndrome (Acute) PAF (paroxysmal atrial fibrillation) (Chronic) Gram-negative bacteremia (Acute) Cellulitis (Acute) Lower urinary obstructive symptom (Acute) Anemia of chronic disease (Acute) Thrombocytopenia (Chronic) Ventricular ectopy (Acute) Sinus bradycardia (Acute) Leukocytosis (Acute) Hypertension (Chronic) Elevated lactic acid level (Acute) CHF (congestive heart failure) (Chronic) No-show for appointment (Acute) Left rotator cuff tear (Acute) Acute UTI (urinary tract infection) (Acute) Weakness (Acute) Non-ST elevation NM (NSTEMI) (Acute) Pre-syncope (Acute) Frequent falls (Acute) Orthostatic hypotension (Acute) Chronic atrial fibrillation (Chronic) Type 2 diabetes mellitus (Chronic) Hypokalemia (Acute) Multiple falls (Acute) Bradycardia (Acute) Acute metabolic encephalopathy (Acute) Encephalopathy, hepatic (Acute) Medication monitoring encounter (Acute) Chest pain (Acute) CHF exacerbation (Acute) ANETTE (obstructive sleep apnea) (Chronic) CHF (congestive heart failure) (Chronic) EF 25%- 2023 Medical History (Updated 06/24/24 @ 20:44 by Clary Damian MD) Bowel obstruction Sepsis Heart failure with reduced ejection fraction Hypothyroidism Small bowel obstruction Creatinine elevation Lactic acid acidosis Anticoagulated Acute UTI COVID Recurrent intestinal obstruction History of colon cancer Chronic anticoagulation Portal hypertension Cirrhosis TIPs placed (?when, [facility] [place]? 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, Dx [facility] as per pt Non-insulin dependent type 2 diabetes mellitus Incontinence Hypertension Scleral icterus Surgical History S/P TIPS (transjugular intrahepatic portosystemic shunt) Colostomy in place H/O left hemicolectomy Social History Smoking/Tobacco Use Status: Former Tobacco Use Smoking risk assessment performed?: Yes Alcohol Intake: former Drug use: Never Substance use type: does not use Housing: house Do you feel safe at home: Yes Do you feel safe in your relationship?: Yes Additional Social history: Lives with , son, and sick [id number] in [place], moved up from [place] in 2020. [place] . Time Spent with Patient Time Spent with Patient: <45 minutes Time was spent: preparing to see the patient(eg.review tests), obtaining and/or reviewing separately otained hiistory, ordering medications,tests, procedures, referring, communicating with other health health care consultant, indepentently interpreting results and care coordination
== END 2024-06-25 16:03 | disposition home health service (06) | DRG 442 ==
LOC: ER 23:57 → MS 06-23 00:51
PROVIDERS: Family Medicine; Admitting Provider Family Medicine; Emergency Provider Emergency Medicine; PCP Nurse Practitioner Adult Health; Visit Provider Family Medicine
DX: K76.82 Hepatic encephalopathy (principal); E87.20 Acidosis, unspecified; K56.609 Unspecified intestinal obstruction, unspecified as to partial versus complete obstruction; I50.22 Chronic systolic (congestive) heart failure; I13.0 Hypertensive heart and chronic kidney disease with heart failure and stage 1 through stage 4 chronic kidney disease, or unspecified chronic kidney disease; N13.8 Other obstructive and reflux uropathy; K74.60 Unspecified cirrhosis of liver; E11.22 Type 2 diabetes mellitus with diabetic chronic kidney disease; N18.2 Chronic kidney disease, stage 2 (mild); G47.33 Obstructive sleep apnea (adult) (pediatric); R31.0 Gross hematuria; R29.6 Repeated falls; M54.50 Low back pain, unspecified; G89.29 Other chronic pain; Z93.3 Colostomy status; Z95.5 Presence of coronary angioplasty implant and graft; I25.10 Atherosclerotic heart disease of native coronary artery without angina pectoris; R74.8 Abnormal levels of other serum enzymes; D72.819 Decreased white blood cell count, unspecified; D63.8 Anemia in other chronic diseases classified elsewhere; D69.6 Thrombocytopenia, unspecified; I25.2 Old myocardial infarction; E87.6 Hypokalemia; I49.3 Ventricular premature depolarization; I48.0 Paroxysmal atrial fibrillation; I95.1 Orthostatic hypotension; Z85.038 Personal history of other malignant neoplasm of large intestine; Z90.49 Acquired absence of other specified parts of digestive tract; R44.1 Visual hallucinations
CPT/HCPCS: 00123; 36415; 80053; 85027; 93005; 96360; 99285; 99498; 70450; 81003; 81015; 82140; 83735; 83880; 84443; 84484; 85025; 85610; 93010; 99223; 99233; 99238; J1815; J3475

== ENCOUNTER 2024-06-30 04:17 | Inpatient (IN) | payer OTHER, SELFPAY ==
[2024-06-30] VITALS (42 sets, daily range): BP systolic 112–177; BP diastolic 45–74; PULSE 62–89; RESP 16–23; TEMP 36.5–37.3; O2SAT 93–98
--- NOTE | 2024-06-30 04:15 | RT.EKG_ITS ---
APPROVED REPORT Exam: Resting ECG Reason for Exam: vomiting Patient Location: E HR:84 bpm ECG Measurements Heart Rate 84 AXIS MA 283 P 13 QRSd 134 QRS 7 QT 387 T 149 QTc 456 Conclusion Sinus rhythm...V-rate 60- 99 Multiple ventricular premature complexes. Prolonged MA interval...MA >220, V-rate 50- 90 intraventricular conduction delay
--- NOTE | 2024-06-30 04:27 | W.ED.GENAD ---
Discharge Plan Disposition Patient Disposition: Admit to [facility] Condition: Serious Discharge Details Chief Complaint: GenMedical Clinical Impression: Encephalopathy, hepatic, Thrombocytopenia, Urinary tract infection, Anemia Primary Care Provider: Maryann Whitt ED Provider: Genia Mari [place] Meds and New Rx's Prescriptions: No Action pantoprazole 40 mg Tablet,Delayed Release (Dr/Ec) 40 mg PO DAILY PRN pregabalin 50 mg Capsule 50 mg PO BID Eliquis 5 mg Tablet 5 mg PO BID nitroglycerin 0.4 mg Tablet, Sublingual 0.4 mg sublingual Q5 MIN PRN X3 PRNQty: 30 0RF miconazole nitrate 2 % Powder 1 applic TOPICAL BID PRN rifaximin 550 mg Tablet 550 mg PO BID ferrous sulfate 325 mg (65 mg iron) Tablet 325 mg PO DAILY empagliflozin 25 mg Tablet 25 mg PO DAILY furosemide [Lasix] 20 mg tablet 20 mg PO QAM levothyroxine 200 mcg Tablet 100 mcg PO QAM Qty: 0 0RF spironolactone 25 mg Tablet 25 mg PO DAILY Qty: 30 0RF cholecalciferol (vitamin D3) 25 mcg (1,000 unit) capsule 25 mcg PO DAILY diclofenac sodium [Arthritis Pain (diclofenac)] 1 % gel 2 g topical QID PRN Rx Instructions: apply to single elbow, wrist or hand; for hand includes palm/fingers/back of hand losartan 50 mg tablet 50 mg PO DAILY venlafaxine 150 mg capsule,extended release 24hr 150 mg PO DAILY lactulose 20 gram/30 mL Solution 20 g PO QD-TID Qty: 1800 11RF Rx Instructions: to maintain colostomy output of 3-4 bags per day rosuvastatin [Crestor] 20 mg Tablet 40 mg PO QPM Qty: 0 0RF furosemide 20 mg tablet 20 mg PO DAILY PRN (Reason: weight gain) Rx Instructions: In Addition to scheduled dose carvedilol phosphate 10 mg capsule, ER multiphase 24 hr 10 mg PO QHS Rx Instructions: must administer with a meal/food clobetasol 0.05 % cream 1 applic topical DAILY acetaminophen [Tylenol] 325 mg Capsule 975 mg PO Q8H MDD 3000 PRN metformin 500 mg tablet extended release 24hr 500 mg PO DAILY Qty: 30 0RF simethicone 80 mg tablet,chewable 80 mg PO BID-QID PRNQty: 90 0RF insulin glargine [Lantus Solostar U-100 Insulin] 100 unit/mL (3 mL) insulin pen 10 unit subcut QAM Qty: 15 0RF tamsulosin 0.4 mg Capsule 0.8 mg PO DAILY Qty: 180 0RF HPI General Mode of arrival: EMS. Date/Time Provider Initiated Documentation: 06/30/24 04:23. Limitations to Documentation: altered mental status. Information obtained by: patient, EMS and old records reviewed. HPI Narrative: 79yo M with hx of afib on apixiban, CHF, HTN, IDDM, ANETTE, CAD, CKD, cirrhosis with hepatic encephalopathy, recent admission to [facility] for troponinemia and hepatic encephalopthay, presenting via EMS from home for generalized weakness, unsteady gait, and visual hallucinations. States it feels similar to the last time he was here. Is seeing the patterson move. No recent falls. Did regurg once this evening with bleching, reports he swallowed it, otherwise no vomiting. No abdominal pain, constipation, bloody stool, or melena. Chronic diarhea 2/t lactulose; did miss two doses over the past couple of days. No chest pain or shortness of breath. No numbness, tingling, or focal weakness. No fevers, chills or rash. Does have urinary urgency and some dysuria, no hematuria. Otherwise in his usual state of health. Lives at home with his on the 2nd floor. Related Data Home Medications ?Medication ?Instructions ?Recorded ?Confirmed apixaban 5 mg tablet (Eliquis) 5 mg PO BID 11/08/22 06/30/24 pantoprazole 40 mg tablet,delayed 40 mg PO DAILY PRN 11/08/22 06/30/24 release pregabalin 50 mg capsule 50 mg PO BID 11/08/22 06/30/24 nitroglycerin 0.4 mg sublingual 0.4 mg sublingual Q5 MIN PRN X3 02/10/23 06/30/24 tablet PRN #30 tabs ferrous sulfate 325 mg (65 mg 325 mg PO DAILY 03/08/23 06/30/24 iron) tablet empagliflozin 25 mg tablet 25 mg PO DAILY 04/09/23 06/30/24 furosemide 20 mg tablet (Lasix) 20 mg PO QAM 04/09/23 06/30/24 levothyroxine 200 mcg tablet 100 mcg (1/2 x 200 mcg) PO QAM #0 04/10/23 06/30/24 tabs miconazole nitrate 2 % topical 1 applic topical BID PRN 06/16/23 06/30/24 powder rifaximin 550 mg tablet 550 mg PO BID 07/07/23 06/30/24 spironolactone 25 mg tablet 25 mg PO DAILY #30 tabs 02/24/24 06/30/24 cholecalciferol (vitamin D3) 25 25 mcg PO DAILY 03/05/24 06/30/24 mcg (1,000 unit) capsule diclofenac sodium 1 % topical gel 2 g topical QID PRN 03/05/24 06/30/24 (Arthritis Pain (diclofenac)) losartan 50 mg tablet 50 mg PO DAILY 03/05/24 06/30/24 venlafaxine 150 mg 150 mg PO DAILY 03/05/24 06/30/24 capsule,extended release 24 hr lactulose 20 gram/30 mL oral 20 g (30 mL) PO QD-TID #1,800 mL 03/06/24 06/30/24 solution rosuvastatin 20 mg tablet (Crestor) 40 mg (2 x 20 mg) PO QPM #0 tabs 03/06/24 06/30/24 acetaminophen 325 mg capsule 975 mg PO Q8H PRN 05/12/24 06/30/24 (Tylenol) carvedilol phosphate 10 mg 10 mg PO QHS 05/12/24 06/30/24 capsule,[id number] multiphase clobetasol 0.05 % topical cream 1 applic topical DAILY 05/12/24 06/30/24 furosemide 20 mg tablet 20 mg PO DAILY PRN weight gain 05/12/24 06/30/24 insulin glargine 100 unit/mL (3 10 unit (0.1 mL) subcut QAM #15 mL 05/13/24 06/30/24 mL) subcutaneous pen (Lantus Solostar U-100 Insulin) metformin 500 mg tablet,extended 500 mg PO DAILY #30 tabs 05/13/24 06/30/24 release 24hr (osmotic) simethicone 80 mg chewable tablet 80 mg PO BID-QID PRN #90 tabs 05/13/24 06/30/24 tamsulosin 0.4 mg capsule 0.8 mg (2 x 0.4 mg) PO DAILY #180 06/25/24 06/30/24 caps Previous Rx's ?Medication ?Instructions ?Recorded nitroglycerin 0.4 mg sublingual 0.4 mg sublingual Q5 MIN PRN X3 02/10/23 tablet PRN #30 tabs levothyroxine 200 mcg tablet 100 mcg (1/2 x 200 mcg) PO QAM #0 04/10/23 tabs spironolactone 25 mg tablet 25 mg PO DAILY #30 tabs 02/24/24 lactulose 20 gram/30 mL oral 20 g (30 mL) PO QD-TID #1,800 mL 03/06/24 solution rosuvastatin 20 mg tablet (Crestor) 40 mg (2 x 20 mg) PO QPM #0 tabs 03/06/24 insulin glargine 100 unit/mL (3 10 unit (0.1 mL) subcut QAM #15 mL 05/13/24 mL) subcutaneous pen (Lantus Solostar U-100 Insulin) metformin 500 mg tablet,extended 500 mg PO DAILY #30 tabs 05/13/24 release 24hr (osmotic) simethicone 80 mg chewable tablet 80 mg PO BID-QID PRN #90 tabs 05/13/24 tamsulosin 0.4 mg capsule 0.8 mg (2 x 0.4 mg) PO DAILY #180 06/25/24 caps Allergies Allergy/AdvReac Type Severity Reaction Status Date / Time Penicillins Allergy Mild Itching Verified 06/30/24 04:25 morphine AdvReac Severe vomiting Verified 06/30/24 04:25 General ANNA: 3 Review of Systems Narrative: see HPI Exam Narrative Exam Narrative: General: Alert, well nourished, in no acute distress. Head: Normocephalic, atraumatic Neck: Trachea midline, ?Neck supple. ENT: ?MMM.? No oropharygeal lesions or exudate. Cardiac: ?RRR, no murmurs appreciated Resp: No respiratory distress. CTAB. Abd: ?Soft, non-distended, nontender. Ostomy bag with brown stool. : ?No suprapubic tenderness. No CVA tenderness. Extremities: ?No deformities.? No peripheral edema. Neurologic: Alert, oriented to person and place. Moves all extremities freely against gravity. No asterixis. Medical Decision Making 79yo M with hx of afib on apixiban, CHF, HTN, IDDM, ANETTE, CAD, CKD, cirrhosis with hepatic encephalopathy, recent admission to [facility] for troponinemia and hepatic encephalopthay, presenting via EMS from home for generalized weakness, unsteady gait, and visual hallucinations. States it feels similar to the last time he was here. Is seeing the patterson move. Does have urinary urgency and some dysuria, no hematuria; otherwise in his usual state of health with no chest pain, shortness of breath, abdominal pain, or other concerns. Benign physical and neurologic exam; no indication for CT or other imaging. -EKG SR with prolonged IA, IVD, no ST segment or T wave abnormalities to suggest occlusive CT. -Labs reviewed as below, CBC with mild pancytopenia all at baseline on [facility] record review, CMP with Cr elevated at 1.8 from normal range several days ago on hospital discharge suggestive of likely RODOLFO, lipase mildly elevated and not suggestive of pancreatitis, lactate elevated at 5.6 (patient with delayed hepatic clearance, of unclear significance, no suggestion of sepsis or acute ischemia on history/exam), ammonia elevated at 81 consistent with presumed hepatic encephalopathy and increased from hospital discharge, BNP normal, troponin negative, coags baseline. UA suggestive of UTI; will give ceftriaxone. Does not meet SIRS/sepsis criteria. -With RODOLFO and elevated lactate, will give judicious IVFB (caution due to CHF). On reassessment remains non-toxic appearing with reassuring vital signs. Will need admission for hepatic encephalopathy, RODOLFO, UTI. As [facility] reached out to [facility] regarding possible transfer; no beds at this time. Discussed with [facility] hospitalist; accepted to medicine service for further workup and management. Awaiting admission orders and transfer to the floor. Lab Data Lab results reviewed: Yes I reviewed the patient's lab results. Labs: 06/30/24 04:50 Urine - Reflex from Ua Urine Culture - Pending Laboratory Tests Range/Units 06/30/24 06/30/24 04:38 04:50 WBC (4.4-10.8) 10^3/uL 3.18 L RBC (4.36-5.78) 10^6/uL 4.07 L Hgb (13.5-17.5) g/dL 12.4 L Hct (40.0-50.0) % 37.6 L MCV (80-95) fL 92 MCH (27.0-33.0) pg 30.5 MCHC (32.0-36.0) % 33.0 RDW (11.8-14.1) % 15.8 H Plt Count (130-400) 10^3/uL 66 L MPV (8.0-11.0) fL 10.7 Immature Gran % % 0.3 Neutrophils % % 76.2 Lymphocytes % % 7.5 Monocytes % % 13.5 Eosinophils % % 2.2 Basophils % % 0.3 Nucleated RBC % (0.0-0.3) % 0.0 Absolute Neutrophils (1.2-6.7) 10^3/uL 2.42 Absolute Lymphocytes (1.2-3.4) 10^3/uL 0.24 L Absolute Monocytes (0.1-0.8) 10^3/uL 0.43 Absolute Eosinophils (0.0-0.7) 10^3/uL 0.07 Absolute Basophils (0.0-0.2) 10^3/uL 0.01 RBC Morphology Normal PT (9.1-11.1) sec 11.7 H INR (0.9-1.1) 1.2 H APTT (23.6-32.8) sec 28.6 VBG Lactate (0.6-1.4) mmol/L 5.1 H* Sodium (136-145) mmol/L 142 Potassium (3.5-5.1) mmol/L 4.5 Chloride (98-107) mmol/L 107 Carbon Dioxide (21.0-32.0) mmol/L 21.4 Anion Gap (3-11) mmol/L 13.6 H BUN (7-18) mg/dL 30 H Creatinine (0.70-1.30) mg/dL 1.8 H Est GFR (CKD-EPI 2020) (mL/min/1.73m2) 38.29 Glucose (74-106) mg/dL 247 H Calcium (8.5-10.1) mg/dL 9.9 Total Bilirubin (0.2-1.0) mg/dL 1.12 H AST (15-37) U/L 42 H ALT (16-63) U/L 27 Alkaline Phosphatase (46-116) U/L 126 H Ammonia (11-32) umol/L 81 H Troponin I High Sens (< or =60) ng/L < 50 NT-Pro-B Natriuret Pep (<300) pg/mL 143 Total Protein (6.4-8.2) g/dL 6.7 Albumin (3.4-5.0) g/dL 3.0 L Lipase (16-77) U/L 87 H Urine Color (Yellow) Yellow Urine Clarity (Clear) Sl Cloudy Urine pH (5-8) 5.0 Ur Specific Chavies (1.005-1.025) 1.015 Urine Protein (Neg-Trace) mg/dL Negative Urine Ketones (Negative) mg/dL Negative Urine Blood (Negative) Negative Urine Nitrite (Negative) Positive H Urine Bilirubin (Negative) Negative Urine Urobilinogen (Up to 0.2) mg/dL 0.2 Ur Leukocyte Esterase (Negative) Negative Urine RBC (0-2) HPF Negative Urine WBC (0-5) HPF 10-20 H Ur Epithelial Cells (Negative) HPF Rare Urine Crystals (Negative) HPF Negative Urine Bacteria (Negative) HPF Moderate Urine Casts (Negative) LPF Negative Urine Mucus (Negative) Trace Urine Other (Negative) Many Yeast Ur Culture Indicated? Yes Urine Glucose (Negative) mg/dL >=1000 H Quality:SDOH Health Related Social Needs: Health related social needs inadequate housing, transpo insecurity, personal safety Health related social needs details Unable to get in and out of home, ambulate or perform ADLs. PFSH All Active Problems (Updated 06/30/24 @ 07:20 by Genia Mari MD) Anemia (Chronic) Urinary tract infection (Acute) Thrombocytopenia (Chronic) Encephalopathy, hepatic (Acute) Colostomy care (Acute) Chronic low back pain (Chronic) Advanced care planning/counseling discussion (Acute) Hematuria (Acute) Cirrhosis of liver without ascites (Chronic) Elevated troponin level not due myocardial infarction (Acute) Diabetes (Chronic) Leukopenia (Acute) Oral candidiasis (Acute) Sepsis syndrome (Acute) PAF (paroxysmal atrial fibrillation) (Chronic) Gram-negative bacteremia (Acute) Cellulitis (Acute) Lower urinary obstructive symptom (Acute) Encephalopathy, hepatic (Acute) Anemia of chronic disease (Acute) Thrombocytopenia (Chronic) Ventricular ectopy (Acute) Sinus bradycardia (Acute) Leukocytosis (Acute) Hypertension (Chronic) Elevated lactic acid level (Acute) CHF (congestive heart failure) (Chronic) No-show for appointment (Acute) Left rotator cuff tear (Acute) Acute UTI (urinary tract infection) (Acute) Weakness (Acute) Non-ST elevation CT (NSTEMI) (Acute) Pre-syncope (Acute) Frequent falls (Acute) Orthostatic hypotension (Acute) Chronic atrial fibrillation (Chronic) Type 2 diabetes mellitus (Chronic) Hypokalemia (Acute) Bradycardia (Acute) Multiple falls (Acute) Acute metabolic encephalopathy (Acute) Medication monitoring encounter (Acute) ANETTE (obstructive sleep apnea) (Chronic) Chest pain (Acute) CHF exacerbation (Acute) CHF (congestive heart failure) (Chronic) EF 25%- 2023 Medical History (Updated 06/30/24 @ 07:20 by Genia Mari MD) Palliative care encounter Followed by [facility] Bowel obstruction Sepsis Heart failure with reduced ejection fraction Hypothyroidism Small bowel obstruction Lactic acid acidosis Creatinine elevation Acute UTI Anticoagulated COVID Recurrent intestinal obstruction History of colon cancer Chronic anticoagulation Portal hypertension Cirrhosis TIPs placed (?when, [facility]? 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, Dx [facility] as per pt Non-insulin dependent type 2 diabetes mellitus Incontinence Hypertension Scleral icterus Surgical History S/P TIPS (transjugular intrahepatic portosystemic shunt) H/O left hemicolectomy Colostomy in place Social History Smoking/Tobacco Use Status: Former Tobacco Use Smoking risk assessment performed?: Yes Alcohol Intake: former Drug use: Never Substance use type: does not use Housing: house Do you feel safe at home: Yes Do you feel safe in your relationship?: Yes Additional Social history: Lives with , son, and sick [id number] in [place], moved up from [place] in 2020. [place].
[2024-06-30 04:54] LABS: Abs Immature Grans 0.01 10^3/uL (0.0-0.06); Absolute Basophil Count 0.01 10^3/uL (0.0-0.2); Absolute Eosinophil Count 0.07 10^3/uL (0.0-0.7); Absolute Lymphocyte Count 0.24 10^3/uL (1.2-3.4); Absolute Monocyte Count 0.43 10^3/uL (0.1-0.8); Absolute Neutrophil Count 2.42 10^3/uL (1.2-6.7); Basophils % 0.3 %; Eosinophils % 2.2 %; HCT 37.6 % (40.0-50.0); HGB 12.4 g/dL (13.5-17.5); Immature Grans % 0.3 %; Lymphocytes % 7.5 %; MCH 30.5 pg (27.0-33.0); MCV 92 fL (80-95); MPV 10.7 fL (8.0-11.0); Monocytes % 13.5 %; Neutrophils % 76.2 %; RBC 4.07 10^6/uL (4.36-5.78); RDW 15.8 % (11.8-14.1); RDW-SD 52.3 fL; WBC 3.18 10^3/uL (4.4-10.8)
[2024-06-30 05:03] LABS: Lactate 5.1 mmol/L (0.6-1.4)
[2024-06-30 05:12] LABS: Ammonia 81 umol/L (11-32)
[2024-06-30 05:18] LABS: INR 1.2 (0.9-1.1); PTT Activated 28.6 sec (23.6-32.8); Prothrombin Time 11.7 sec (9.1-11.1)
[2024-06-30 05:19] LABS: Diff Comment PLT Morph Reviewed; Platelet Count 66 10^3/uL (130-400); RBC Morphology Normal
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
[2024-06-30 05:22] LABS: ALT 27 U/L (16-63); AST 42 U/L (15-37); Alkaline Phosphatase 126 U/L (46-116); Anion Gap 13.6 mmol/L (3-11); BUN 30 mg/dL (7-18); Bilirubin, Total 1.12 mg/dL (0.2-1.0); CO2 21.4 mmol/L (21.0-32.0); CREATININE 1.8 mg/dL (0.70-1.30); Chloride 107 mmol/L (98-107); Estimated GFR 38.29 (mL/min/1.73m2); Glucose 247 mg/dL (74-106); Lipase 87 U/L (16-77); NT-proBNP 143 pg/mL (<300); Potassium 4.5 mmol/L (3.5-5.1); Sodium 142 mmol/L (136-145); Total Protein 6.7 g/dL (6.4-8.2); Troponin I < 50 ng/L (< or =60)
[2024-06-30 05:27] LABS: Calcium 9.9 mg/dL (8.5-10.1)
[2024-06-30] MEDS: Normal Saline 500 ML IV (05:41)
[2024-06-30] MEDS: Nystatin CREAM 30 GM TUBE TP (05:41)
[2024-06-30 05:59] LABS: Bilirubin Negative (Negative); Blood Negative (Negative); Clarity Sl Cloudy (Clear); Glucose >=1000 mg/dL (Negative); Ketones Negative (Negative); Leukocyte Esterase Negative (Negative); Nitrite Positive (Negative); Specific Gravity 1.015 (1.005-1.025); Urobilinogen 0.2 mg/dL (Up to 0.2)
[2024-06-30 06:09] LABS: Bacteria Moderate HPF (Negative); Epithelial Cells Rare HPF (Negative); RBC Negative HPF (0-2)
[2024-06-30 06:10] LABS: C & S Indicated? Yes; Casts Negative LPF (Negative); Crystals Negative HPF (Negative); Mucus Trace (Negative)
--- NOTE | 2024-06-30 06:19 | NUR.NOTE ---
Nursing Note: D - Skin assessment - areas of breakdown/injury on arrival. A - Excoriation on scrotum and right skin folds in groin. Blanchable redness around coccyx, pt reports limited mobility. R - Mepilex-type dressing placed for skin prophylaxis, pillow placed under pts left side to relieve pressure on coccyx. Jami and metal care provided and Nystatin ointment applied. MD aware of skin conditions and nursing interventions. Slade López, KARLEYN, RN
[2024-06-30] MEDS: cefTRIAXone 1 GM/50 ML BAG IVPB (06:29)
--- NOTE | 2024-06-30 07:32 | HPE_ITS ---
Date of service: 06/30/24 Time of Service: 07:32 Assessment and Plan Assessment and plan (1) Encephalopathy, hepatic: Status: Acute Assessment and plan: -presented with increase confusion at home and elevated ammonia level, similar to previous hospitalization -additionally, as with previous hospitalization patient and reported to ED provider missing dosing of lactulose which likely precipitated current episode of encephalopathy. However, patient reported to me that he has been taking his lactulose 3 times a day as prescribed -this may be secondary to mediction noncompliance, or possibly precipitated by UTI or even over-diuresis resulting in RODOLFO -He does have chronic cirrhosis without ascites having TIPS procedure in the past, which increases risk of encephalopathy. -continue lactulose QID and rifaximin -will order abdomen US to assess for ascities for possible paracentesis -again consulted Palliative Care to address code status, medication adherence, and goals of care (2) Cirrhosis of liver without ascites: Status: Chronic Assessment and plan: -Status post TIPS procedure, which does pre-dispose to encephalopathy Qualifiers: Hepatic cirrhosis type: unspecified hepatic cirrhosis Qualified Code(s): K74.60 - Unspecified cirrhosis of liver (3) UTI (urinary tract infection): Status: Acute Assessment and plan: -UA on admnission with 10-20 WBCs, moderate bacteria and patient complaints of dysuria -started on CTX, will continue -f/u urine culture results (4) Acute kidney injury superimposed on CKD: Status: Acute Assessment and plan: -Cr 1.0 on discharge 6 days ago, now up to 1.8 -likely due to combination of UTI, encephalopathy, and or home lasix and spironolactone which will be held -f/u AM CMP (5) Lactic acidosis: Status: Acute Assessment and plan: -LA up to 5.8, though patient without sepsis -likely due to combination of hepatic encephalopathy, RODOLFO on CKD -f/u repeat lactic (6) PAF (paroxysmal atrial fibrillation): Status: Chronic Assessment and plan: -rate controlled at this time -continue home carvedilol and eliquis (7) Hypertension: Status: Chronic Assessment and plan: -holding home lasix and spironolactone due to RODOLFO as noted above Qualifiers: Hypertension type: primary hypertension Qualified Code(s): I10 - Essential (primary) hypertension (8) Type 2 diabetes mellitus: Status: Chronic Assessment and plan: -Continue Jardiance -hold metformin -SSI< CCD Qualifiers: Chronic kidney disease stage: stage 2 (mild) Diabetes mellitus complication detail: with chronic kidney disease Diabetes mellitus complication status: with kidney complications Diabetes mellitus halfway insulin use: w [facility] halfway use Qualified Code(s): E11.22 - Type 2 diabetes mellitus with diabetic chronic kidney disease; N18.2 - Chronic kidney disease, stage 2 (mild) (9) ANETTE (obstructive sleep apnea): Status: Chronic Assessment and plan: -continue home CPAP (10) CHF (congestive heart failure): Status: Chronic Assessment and plan: -Continue outpatient medical therapy monitoring labs. This still appears to be stable. Qualifiers: Heart failure chronicity: chronic Heart failure type: diastolic Q ualified Code(s): I50.32 - Chronic diastolic (congestive) heart failure History of Present Illness History of Present Illness Chief Complaint: weakness, visual hallucinations N arrative: 79-year-old male with past postsurgical history of A-fib on Eliquis, heart failure, IDDM, ANETTE, CAD, CKD, cirrhosis with frequent episodes of hepatic encephalopathy most recently ending hospitalized here at [facility] from 06/23/2024 till 06/25/2024 with hepatic encephalopathy who presents again with weakness, unsteady gait and hallucinations. Patient and his stated to ED provider that they have missed doses of his lactulose over the last few days. However, patient stated very clearly to me that he has been taking all of his medications and that he has been taking his lactulose 3 times a day as prescribed. Since that time patient began to feel similar to previous presentation where he is seeing the patterson move, and is felt generally weak and having trouble ambulating which is what prompted EMS for sent patient to the emergency department. He had 1 episode of regurg and belching but did not vomit, and denies any fevers, chills, rash. Additionally does report some urinary urgency and dysuria. In the emergency department the patient was noted as having normal vital signs, normal physical exam though patient did appear weak and was reporting visual hallucinations of the patterson moving clock. His CBC was unremarkable, CMP did show anion gap metabolic acidosis secondary to a lactic acidosis lactic acid of 5.1, which is likely secondary to a combination of his hepatic encephalopathy and an RODOLFO with his creatinine of 1.8 (creatinine of 1 at discharge 6 days ago) and ammonia was 81 (elevated from discharge at 65). Review of Systems All systems reviewed & are unremarkable except as noted in HPI and below PFSH All Active Problems (Updated 06/30/24 @ 08:41 by JOSE LUIS REICH) Lactic acidosis (Acute) Acute kidney injury superimposed on CKD (Acute) UTI (urinary tract infection) (Acute) Anemia (Chronic) Urinary tract infection (Acute) Thrombocytopenia (Chronic) Encephalopathy, hepatic (Acute) Colostomy care (Acute) Chronic low back pain (Chronic) Advanced care planning/counseling discussion (Acute) Hematuria (Acute) Cirrhosis of liver without ascites (Chronic) Elevated troponin level not due myocardial infarction (Acute) Diabetes (Chronic) Leukopenia (Acute) Oral candidiasis (Acute) Sepsis syndrome (Acute) PAF (paroxysmal atrial fibrillation) (Chronic) Gram-negative bacteremia (Acute) Cellulitis (Acute) Lower urinary obstructive symptom (Acute) Encephalopathy, hepatic (Acute) Anemia of chronic disease (Acute) Thrombocytopenia (Chronic) Ventricular ectopy (Acute) Sinus bradycardia (Acute) Leukocytosis (Acute) Hypertension (Chronic) Elevated lactic acid level (Acute) CHF (congestive heart failure) (Chronic) No-show for appointment (Acute) Left rotator cuff tear (Acute) Acute UTI (urinary tract infection) (Acute) Weakness (Acute) Non-ST elevation [place] (NSTEMI) (Acute) Pre-syncope (Acute) Frequent falls (Acute) Orthostatic hypotension (Acute) Chronic atrial fibrillation (Chronic) Type 2 diabetes mellitus (Chronic) Hypokalemia (Acute) Bradycardia (Acute) Multiple falls (Acute) Acute metabolic encephalopathy (Acute) Medication monitoring encounter (Acute) ANETTE (obstructive sleep apnea) (Chronic) Chest pain (Acute) CHF exacerbation (Acute) CHF (congestive heart failure) (Chronic) EF 25%- 2023 Medical History (Updated 06/30/24 @ 08:41 by JOSE LUIS REICH) Palliative care encounter Followed by [facility] Bowel obstruction Sepsis Heart failure with reduced ejection fraction Hypothyroidism Small bowel obstruction Lactic acid acidosis Creatinine elevation Acute UTI Anticoagulated COVID Recurrent intestinal obstruction History of colon cancer Chronic anticoagulation Portal hypertension Cirrhosis TIPs placed (?when, [facility]? 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, Dx [facility] as per pt Non-insulin dependent type 2 diabetes mellitus Incontinence Hypertension Scleral icterus Surgical History S/P TIPS (transjugular intrahepatic portosystemic shunt) H/O left hemicolectomy Colostomy in place Social History Smoking/Tobacco Use Status: Former Tobacco Use Smoking risk assessment performed?: Yes Alcohol Intake: former Drug use: Never Substance use type: does not use Housing: house Do you feel safe at home: Yes Do you feel safe in your relationship?: Yes Additional Social history: Lives with , son, and sick [id number] in [place], moved up from [place] in 2019. [place] . Meds Allergies and Home Medications Allergies Allergy/AdvReac Type Severity Reaction Status Date / Time Penicillins Allergy Mild Itching Verified 06/30/24 04:25 morphine AdvReac Severe vomiting Verified 06/30/24 04:25 Home Medications ?Medication ?Instructions ?Recorded ?Confirmed ?Type apixaban 5 mg tablet (Eliquis) 5 mg PO BID 11/08/22 06/30/24 History pantoprazole 40 mg tablet,delayed 40 mg PO DAILY PRN 11/08/22 06/30/24 History release pregabalin 50 mg capsule 50 mg PO BID 11/08/22 06/30/24 History nitroglycerin 0.4 mg sublingual 0.4 mg sublingual Q5 MIN PRN X3 02/10/23 06/30/24 Rx tablet PRN #30 tabs ferrous sulfate 325 mg (65 mg 325 mg PO DAILY 03/08/23 06/30/24 History iron) tablet empagliflozin 25 mg tablet 25 mg PO DAILY 04/09/23 06/30/24 History furosemide 20 mg tablet (Lasix) 20 mg PO QAM 04/09/23 06/30/24 History levothyroxine 200 mcg tablet 100 mcg (1/2 x 200 mcg) PO QAM #0 04/10/23 06/30/24 Rx tabs miconazole nitrate 2 % topical 1 applic topical BID PRN 06/16/23 06/30/24 History powder rifaximin 550 mg tablet 550 mg PO BID 07/07/23 06/30/24 History spironolactone 25 mg tablet 25 mg PO DAILY #30 tabs 02/24/24 06/30/24 Rx cholecalciferol (vitamin D3) 25 25 mcg PO DAILY 03/05/24 06/30/24 History mcg (1,000 unit) capsule diclofenac sodium 1 % topical gel 2 g topical QID PRN 03/05/24 06/30/24 History (Arthritis Pain (diclofenac)) losartan 50 mg tablet 50 mg PO DAILY 03/05/24 06/30/24 History venlafaxine 150 mg 150 mg PO DAILY 03/05/24 06/30/24 History capsule,extended release 24 hr lactulose 20 gram/30 mL oral 20 g (30 mL) PO QD-TID #1,800 mL 03/06/24 06/30/24 Rx solution rosuvastatin 20 mg tablet (Crestor) 40 mg (2 x 20 mg) PO QPM #0 tabs 03/06/24 06/30/24 Rx acetaminophen 325 mg capsule 975 mg PO Q8H PRN 05/12/24 06/30/24 History (Tylenol) carvedilol phosphate 10 mg 10 mg PO QHS 05/12/24 06/30/24 History capsule,[id number] multiphase clobetasol 0.05 % topical cream 1 applic topical DAILY 05/12/24 06/30/24 History furosemide 20 mg tablet 20 mg PO DAILY PRN weight gain 05/12/24 06/30/24 History insulin glargine 100 unit/mL (3 10 unit (0.1 mL) subcut QAM #15 mL 05/13/24 06/30/24 Rx mL) subcutaneous pen (Lantus Solostar U-100 Insulin) metformin 500 mg tablet,extended 500 mg PO DAILY #30 tabs 05/13/24 06/30/24 Rx release 24hr (osmotic) simethicone 80 mg chewable tablet 80 mg PO BID-QID PRN #90 tabs 05/13/24 06/30/24 Rx tamsulosin 0.4 mg capsule 0.8 mg (2 x 0.4 mg) PO DAILY #180 06/25/24 06/30/24 Rx caps Exam Narrative Exam Narrative: chronically ill appearing older gentleman laying in bed in no acute distress, AOx4 though reports onging shaking and intermentent visual hallucination of a cat, a rat, and the patterson moving though he know that they are not real, heart RRR, lungs CTAB, abdomen mildly distended, soft, non-tender Results Labs 06/30/24 04:38 09/04/24 04:38 Labs: Laboratory Results - last 24 hr 06/30/24 06/30/24 04:38 04:50 WBC 3.18 L RBC 4.07 L Hgb 12.4 L Hct 37.6 L MCV 92 MCH 30.5 MCHC 33.0 RDW 15.8 H Plt Count 66 L MPV 10.7 Immature Gran % 0.3 Neutrophils % 76.2 Lymphocytes % 7.5 Monocytes % 13.5 Eosinophils % 2.2 Basophils % 0.3 Nucleated RBC % 0.0 Absolute Neutrophils 2.42 Absolute Lymphocytes 0.24 L Absolute Monocytes 0.43 Absolute Eosinophils 0.07 Absolute Basophils 0.01 RBC Morphology Normal PT 11.7 H INR 1.2 H APTT 28.6 VBG Lactate 5.1 H* Sodium 142 Potassium 4.5 Chloride 107 Carbon Dioxide 21.4 Anion Gap 13.6 H BUN 30 H Creatinine 1.8 H Est GFR (CKD-EPI 2020) 38.29 Glucose 247 H Calcium 9.9 Total Bilirubin 1.12 H AST 42 H ALT 27 Alkaline Phosphatase 126 H Ammonia 81 H Troponin I High Sens < 50 NT-Pro-B Natriuret Pep 143 Total Protein 6.7 Albumin 3.0 L Lipase 87 H Urine Color Yellow Urine Clarity Sl Cloudy Urine pH 5.0 Ur Specific [place] 1.015 Urine Protein Negative Urine Ketones Negative Urine Blood Negative Urine Nitrite Positive H Urine Bilirubin Negative Urine Urobilinogen 0.2 Ur Leukocyte Esterase Negative Urine RBC Negative Urine WBC 10-20 H Ur Epithelial Cells Rare Urine Crystals Negative Urine Bacteria Moderate Urine Casts Negative Urine Mucus Trace Urine Other Many Yeast Ur Culture Indicated? Yes Urine Glucose >=1000 H Last Vital Signs Temp 97.7 F 06/30/24 05:00 Pulse 79 06/30/24 07:16 Resp 17 06/30/24 07:20 BP 146/47 H 06/30/24 07:16 Pulse Ox 94 06/30/24 07:20 Time Spent Time spent with Patient: >75 minutes Time was spent: preparing to see the patient(eg.review tests), obtaining and/or reviewing separately otained hiistory, ordering medications,tests, procedures, referring, communicating with other health respiratory care instructor, indepentently interpreting results, counseling the patient and care coordination
--- NOTE | 2024-06-30 08:33 | NUR.NOTE ---
0806 Mrs. Orellana called stating that when she came to visit her during his previous admission, there was a moment for 30sec to 1 min where the left side of his mouth drooped and then went back to normal. It was before he was discharged. She also was not sure if it was because he did not have any teeth in. Nursing Note:
--- NOTE | 2024-06-30 08:34 | W.PC.ACHO ---
Registration Status: Primary Language: Preferred Language: ED Information & Data Chief Complaint GenMedical 06/30/24 04:46 Chief Complaint GenMedical 06/30/24 04:26 Triage Note Pt reports weakness, 06/30/24 04:26 unsteady gait. Hx of elevated ammonia. Has had vision changes, no pain. Afebrile. Reports increased urgency with urination. Subjective Pt has some visual changes 06/30/24 04:46 and weakness. Reports hx of elevated ammonia. Discharged 2 days ago for hepatic encephalopathy. Medical / Surgical History (Last Updated 06/22/24 @ 23:16 by Phoenix Jim) Palliative care encounter Bowel obstruction Sepsis Heart failure with reduced ejection fraction Hypothyroidism Small bowel obstruction Lactic acid acidosis Creatinine elevation Acute UTI Anticoagulated COVID Recurrent intestinal obstruction History of colon cancer Chronic anticoagulation Portal hypertension Cirrhosis Confusion Colon cancer Depression Endocarditis Non-insulin dependent type 2 diabetes mellitus Incontinence Hypertension Scleral icterus (Last Reviewed 06/22/24 @ 23:07 by Phoenix Jim) S/P TIPS (transjugular intrahepatic portosystemic shunt) H/O left hemicolectomy Colostomy in place Most Recent Vital Signs Temperature 36.5 C 06/30/24 05:00 Temperature Source Tympanic 06/30/24 04:26 Pulse 66 06/30/24 08:02 Pulse 78 06/30/24 08:20 Respiratory Rate 18 06/30/24 08:20 Respiratory Effort Normal 06/30/24 04:46 Respiratory Depth Normal 06/30/24 04:46 Respiratory Pattern Normal 06/30/24 04:46 Blood Pressure 151/53 H 06/30/24 08:02 Blood Pressure Mean 78 06/30/24 08:02 Blood Pressure Position Supine 06/30/24 04:26 Pulse Oximetry 95 06/30/24 08:20 Oxygen Delivery Method Room Air 06/30/24 04:26 Oxygen Flow Rate 0 06/30/24 04:26 Pain Level 0 06/30/24 04:26 Allergies Penicillins Allergy (Mild, Verified 06/30/24 04:25) Itching morphine Adverse Reaction (Severe, Verified 06/30/24 04:25) vomiting IV IV Catheter Gauge [Right 18 Antecubital] Diagnostics 06/30/24 06/30/24 Range/Units 04:50 04:38 WBC 3.18 L (4.4-10.8) 10^3/uL RBC 4.07 L (4.36-5.78) 10^6/uL Hgb 12.4 L (13.5-17.5) g/dL Hct 37.6 L (40.0-50.0) % MCV 92 (80-95) fL MCH 30.5 (27.0-33.0) pg MCHC 33.0 (32.0-36.0) % RDW 15.8 H (11.8-14.1) % Plt Count 66 L (130-400) 10^3/uL MPV 10.7 (8.0-11.0) fL Immature Gran % 0.3 % Neutrophils % 76.2 % Lymphocytes % 7.5 % Monocytes % 13.5 % Eosinophils % 2.2 % Basophils % 0.3 % Nucleated RBC % 0.0 (0.0-0.3) % Absolute Neutrophils 2.42 (1.2-6.7) 10^3/uL Absolute Lymphocytes 0.24 L (1.2-3.4) 10^3/uL Absolute Monocytes 0.43 (0.1-0.8) 10^3/uL Absolute Eosinophils 0.07 (0.0-0.7) 10^3/uL Absolute Basophils 0.01 (0.0-0.2) 10^3/uL RBC Morphology Normal PT 11.7 H (9.1-11.1) sec INR 1.2 H (0.9-1.1) APTT 28.6 (23.6-32.8) sec VBG Lactate 5.1 H* (0.6-1.4) mmol/L Sodium 142 (136-145) mmol/L Potassium 4.5 (3.5-5.1) mmol/L Chloride 107 (98-107) mmol/L Carbon Dioxide 21.4 (21.0-32.0) mmol/L Anion Gap 13.6 H (3-11) mmol/L BUN 30 H (7-18) mg/dL Creatinine 1.8 H (0.70-1.30) mg/dL Est GFR (CKD-EPI 2020) 38.29 (mL/min/1.73m2) Glucose 247 H (74-106) mg/dL Calcium 9.9 (8.5-10.1) mg/dL Total Bilirubin 1.12 H (0.2-1.0) mg/dL AST 42 H (15-37) U/L ALT 27 (16-63) U/L Alkaline Phosphatase 126 H (46-116) U/L Ammonia 81 H (11-32) umol/L Troponin I High Sens < 50 (< or =60) ng/L NT-Pro-B Natriuret Pep 143 (<300) pg/mL Total Protein 6.7 (6.4-8.2) g/dL Albumin 3.0 L (3.4-5.0) g/dL Lipase 87 H (16-77) U/L Urine Color Yellow (Yellow) Urine Clarity Sl Cloudy (Clear) Urine pH 5.0 (5-8) Ur Specific [place] 1.015 (1.005-1.025) Urine Protein Negative (Neg-Trace) mg/dL Urine Ketones Negative (Negative) mg/dL Urine Blood Negative (Negative) Urine Nitrite Positive H (Negative) Urine Bilirubin Negative (Negative) Urine Urobilinogen 0.2 (Up to 0.2) mg/dL Ur Leukocyte Esterase Negative (Negative) Urine RBC Negative (0-2) HPF Urine WBC 10-20 H (0-5) HPF Ur Epithelial Cells Rare (Negative) HPF Urine Crystals Negative (Negative) HPF Urine Bacteria Moderate (Negative) HPF Urine Casts Negative (Negative) LPF Urine Mucus Trace (Negative) Urine Other Many Yeast (Negative) Ur Culture Indicated? Yes Urine Glucose >=1000 H (Negative) mg/dL 06/30/24 04:50 Urine Culture - Pending Urine - Reflex from Ua Intake and Output - 24 Hour Total 06/30/24 04:10 thru 06/30/24 06:42 Intake Total 550 Balance 550 Weight 106.141 kg Intake: IV 550 Falls Risk Assessment History of Falls Previous History 06/30/24 04:46 Contributing Factors Confusion,Impairments, 06/30/24 04:46 Incontinence,Medications Ambulatory Aids Uses ambulatory device + 06/30/24 04:46 Tubes/Lines With any additional score 06/30/24 04:46 Gait Evaluation W/any additional score 06/30/24 04:46 Cognition Cognitive impairment 06/30/24 04:46 Fall Total Score 112 06/30/24 04:46 Level of Risk Maximum Risk 06/30/24 04:46 Problems (Last Updated 06/22/24 @ 23:16 by Phoenix Jim) Lactic acidosis (Acute) Acute kidney injury superimposed on CKD (Acute) UTI (urinary tract infection) (Acute) Cirrhosis of liver without ascites (Chronic) PAF (paroxysmal atrial fibrillation) (Chronic) Encephalopathy, hepatic (Acute) Hypertension (Chronic) Type 2 diabetes mellitus (Chronic) ANETTE (obstructive sleep apnea) (Chronic) CHF (congestive heart failure) (Chronic) Notes 06/30/24 06:19 Nursing Notes by Slade López Nursing Note: D - Skin assessment - areas of breakdown/injury on arrival. A - Excoriation on scrotum and right skin folds in groin. Blanchable redness around coccyx, pt reports limited mobility. R - Mepilex-type dressing placed for skin prophylaxis, pillow placed under pts left side to relieve pressure on coccyx. Jami and metal care provided and Nystatin ointment applied. MD aware of skin conditions and nursing interventions. MARK Fernandez, RN Initialized on 06/30/24 06:19 - END OF NOTE 06/30/24 05:20 Nursing Notes by Slade López Nursing Note: Sent ED nursing center tutor email regarding RK with #[id number] to see if hospital case management could get involved and touch base with pt. Discharged home 2 days ago, back this morning for weakness and hepatic encephalopathy. Missed 2 doses of lactulose yesterday. Pt is unable to ambulate or perform ADLs. EMS reported unsafe living situation since he cannot get in or out of the home. In the event of an emergency or fire, pt is trapped. Pt reports he has a urinal he uses because he cannot get to and from the bathroom. He has some skin breakdown and excoriation on the groin and scrotum from remaining in wet depends and urinary incontinence (has a colostomy for stool). Pt has an adult son that lives at home, but it does not seem he is able to care for him well. Pt's is also chronically ill and in and out of the hospital frequently and unable to care for him. Goal to connect pt to resources in order to ensure safe living arrangements/accommodations. MARK Fernandez, RN? Initialized on 06/30/24 05:20 - END OF NOTE v v v v v v v v v Sending and/or Receiving Nurses: Please use comment section below to note any information pertinent to the patient hand-off not included above. Information / Comments: Report received from:Tasia Harp RN
--- NOTE | 2024-06-30 08:45 | NUR.NOTE ---
M/S staff advised of 's concern for facial drooping during pt's last admission. reference to earlier note from GENIA gallardo. Nursing Note:
[2024-06-30] MEDS: Lactulose 20 GM/30 ML CUP PO ×4 (09:14→20:43)
[2024-06-30] MEDS: Empaglifozin 25 MG TAB PO (09:14)
[2024-06-30] MEDS: Ferrous Sulfate 325 MG TAB PO (09:14)
[2024-06-30] MEDS: Apixaban 5 MG TAB PO ×2 (09:14→20:42)
[2024-06-30] MEDS: Normal Saline Flush 10 ML SYR IVP ×2 (09:16→20:43)
[2024-06-30] MEDS: Venlafaxine 150 MG CAPCR PO (09:19)
[2024-06-30] MEDS: Tamsulosin 0.4 MG CAPCR 0.8 MG PO (09:19)
[2024-06-30] MEDS: Rifaximin 550 MG TAB PO ×2 (09:19→20:42)
--- NOTE | 2024-06-30 09:30 | DI.US_ITS ---
Exam(s) US ABDOMEN LIMITED EXAM: US ABDOMEN LIMITED CLINICAL HISTORY: ? ascites TECHNIQUE: Ultrasound abdomen performed using standard protocol. COMPARISON: No exams were available for comparison FINDINGS: This is a limited examination to assess for the presence of ascites. All 4 quadrants of the abdomen were evaluated sonographically. No abdominal ascites is seen sonographically. IMPRESSION: No ascites is seen. DATA REPOSITORY:
[2024-06-30] MEDS: Clobetasol 0.05% CREAM 15 GM TUBE TP (10:17)
[2024-06-30] MEDS: Insulin Glargine 300 UNITS/3 ML PEN 10 UNITS SC (10:17)
--- NOTE | 2024-06-30 12:51 | PHA.REVIEW2 ---
Pharmacy Admission Review Admission Clinical Review Admission Pharmacy Review: Lactic acidosis (Acute) Acute kidney injury superimposed on CKD (Acute) UTI (urinary tract infection) (Acute) Encephalopathy, hepatic (Acute) Penicillins Allergy (Mild, Verified 06/30/24 04:25) Itching morphine Adverse Reaction (Severe, Verified 06/30/24 04:25) vomiting Resuscitation Status Full Code Height 5 ft 7 in Weight 108.1 kg Pharmacy Admission Review Renal Dosing Renal Dosing: BUN 30 mg/dL (7-18) H 06/30/24 04:38 Creatinine 1.8 mg/dL (0.70-1.30) H 06/30/24 04:38 Medications needing adjustments: Reviewed (CrCl 40.2 mL/min) List of meds needing interventions: Current medications are okay Anticoagulation Anticoagulation: Hgb 12.4 g/dL (13.5-17.5) L 06/30/24 04:38 Hct 37.6 % (40.0-50.0) L 06/30/24 04:38 Plt Count 66 10^3/uL (130-400) L 06/30/24 04:38 INR 1.2 (0.9-1.1) H 06/30/24 04:38 Creatinine 1.8 mg/dL (0.70-1.30) H 06/30/24 04:38 DVT Prophylaxis: Reviewed Medications: Apixaban (5mg PO BID) Relevant Labs Relevant Labs: Sodium 142 mmol/L (136-145) 06/30/24 04:38 Potassium 4.5 mmol/L (3.5-5.1) 06/30/24 04:38 Chloride 107 mmol/L (98-107) 06/30/24 04:38 Electrolytes, C-Reactive P, ESR: Reviewed DM Control DM Control: Glucose 247 mg/dL (74-106) H 06/30/24 04:38 Finger Stick Blood Glucose 281 1129 Finger Stick Blood Glucose 281 1129 DM Control: Reviewed Insulin Dosing, Diabetic Medication: Patient has order for Jardiance 10mg daily, SS insulin and glargine 10 units every morning. Home med metformin on hold. Cardiac Review Cardiac Review: NT-Pro-B Natriuret Pep 143 pg/mL (<300) 06/30/24 04:38 Blood Pressure 145/54 1131 Blood Pressure 130/52 0850 Blood Pressure 130/52 0850 Blood Pressure 146/47 0830 Blood Pressure 151/53 0802 Blood Pressure 146/47 0716 Blood Pressure 177/62 0631 Blood Pressure 162/54 0546 Blood Pressure 133/53 0531 Blood Pressure 153/45 0516 Blood Pressure 151/58 0503 Blood Pressure 151/58 0500 Blood Pressure 140/58 0426 Blood Pressure 140/58 0426 BP, HR, EF%: Reviewed (HR WNL) List meds needing interventions: Patient is on carvedilol 10mg ER once daily QTc Review QTc: Reviewed (456 from 06/30/24) IV to PO Switch IV Medications: Reviewed (ceftriaxone) Home Meds Home Med List reviewed: Intervened Relevent Home Meds Not ordered & why?: Vitamin D3, furosemide (on hold per H+P), losartan, metformin (on hold per H+P), miconazole powder (PRN), pregabalin, simethicone (PRN) and spironolactone (on hold per H+P) Reached out to provider regarding losartan and pregabalin. Per provider, holding these meds due to RODOLFO and encephalopathy. Carvedilol 10mg ER changed to patients own order. Called nursing, who said patient is seeing if this can be brought in for him. Current Meds Current Medication Order Review: Reviewed Pharmacy Antibiotic Review Relevant Labs: WBC 3.18 10^3/uL (4.4-10.8) L 06/30/24 04:38 Temperature 37.3 C Temperature 37.2 C Temperature 37.2 C Temperature 36.7 C Temperature 36.5 C Temperature 37.1 C Pharmacy Antibiotic Activity: C/S review and Reviewed, no change Comments: Patient is on ceftriaxone, day 1, for UTI (may have precipitated current hepatic encephalopathy). Urine culture is pending.
[2024-06-30] MEDS: Acetaminophen 325 MG TAB PO (15:48)
[2024-06-30] MEDS: Insulin Aspart 300 UNITS/3 ML PEN SC (17:04)
[2024-06-30] MEDS: Rosuvastatin 20 MG TAB 40 MG PO (20:42)
[2024-07-01] VITALS (7 sets, daily range): BP systolic 128–150; BP diastolic 50–93; PULSE 62–70; RESP 17–20; TEMP 36.6–38.1; O2SAT 93–96
[2024-07-01] MEDS: Acetaminophen 325 MG TAB PO ×2 (01:54→12:06)
[2024-07-01] MEDS: cefTRIAXone 1 GM/50 ML BAG IVPB (05:47)
[2024-07-01] MEDS: Levothyroxine 100 MCG TAB PO (05:49)
[2024-07-01 07:05] LABS: HCT 35.8 % (40.0-50.0); HGB 11.9 g/dL (13.5-17.5); MCH 30.4 pg (27.0-33.0); MCHC 33.2 % (32.0-36.0); MCV 92 fL (80-95); MPV 11.7 fL (8.0-11.0); RBC 3.91 10^6/uL (4.36-5.78); RDW 15.5 % (11.8-14.1); RDW-SD 51.4 fL; WBC 3.01 10^3/uL (4.4-10.8)
[2024-07-01 07:15] LABS: Anion Gap 8.2 mmol/L (3-11); BUN 22 mg/dL (7-18); CO2 24.8 mmol/L (21.0-32.0); CREATININE 1.2 mg/dL (0.70-1.30); Calcium 9.9 mg/dL (8.5-10.1); Chloride 102 mmol/L (98-107); Estimated GFR 62.29 (mL/min/1.73m2); Glucose 239 mg/dL (74-106); Magnesium 1.7 mg/dL (1.8-2.4); Sodium 135 mmol/L (136-145)
[2024-07-01 07:57] LABS: Platelet Count 59 10^3/uL (130-400)
[2024-07-01] MEDS: Normal Saline Flush 10 ML SYR IVP ×2 (08:35→19:30)
[2024-07-01] MEDS: Lactulose 20 GM/30 ML CUP PO ×4 (08:35→19:29)
[2024-07-01] MEDS: Ferrous Sulfate 325 MG TAB PO (08:36)
[2024-07-01] MEDS: Venlafaxine 150 MG CAPCR PO (08:36)
[2024-07-01] MEDS: Insulin Aspart 300 UNITS/3 ML PEN SC ×3 (08:36→17:07)
[2024-07-01] MEDS: Tamsulosin 0.4 MG CAPCR 0.8 MG PO (08:36)
[2024-07-01] MEDS: Rifaximin 550 MG TAB PO ×2 (08:36→19:29)
[2024-07-01] MEDS: Insulin Glargine 300 UNITS/3 ML PEN 10 UNITS SC (08:36)
[2024-07-01] MEDS: Empaglifozin 25 MG TAB PO (08:36)
[2024-07-01] MEDS: Apixaban 5 MG TAB PO ×2 (08:37→19:29)
--- NOTE | 2024-07-01 09:14 | INITIAL_ITS ---
Date of service: 07/01/24 Time of Service: 09:15 Care Management Initial Assmt Initial Assessment Reason for Hospitalization: hepatic encephalopathy Functional Status/Living Situation Patient Presentation: Merrill was sitting up in bed when CM met with him. He was alert and oriented and able to engage in conversation. Merrill was admitted again with hepatic encephalopathy. CM received a call this morning from Merrill's [facility] disease case manager Rufina. She informed CM that Merrill's Cely has shared that she does not feel able to continue to care for Merrill and would like to consider [facility] placement. CM had questions about VA coverage for both short term rehab and adjunct faculty for medical terminology care and requested details about the process. One of the barriers may be the fact that Merrill's admission only meets observation criteria. While he was confused and hallucinating at home, by he time CM met with him today he was much clearer and, denied hallucination. CM did discuss the possibility of going to a SNF for short term rehab for a couple of weeks and Merrill was agreeable. He did not have a particular preference about location of the facility. CM did not hear back from the [facility] today and the office Was closed at 4pm when CM tried to reach Rufina. CM will call again in the morning. Town of Residence: [place] Resides with: Spouse ( Cely and sin Scott) Significant Other/Family: Out of area (some relatives in [place]) Employment Status: Retired Instrumental Activities of Daily Living (ADLs): Independent Physical Functioning/Mobility Assistive Device: walker Advance Directives Advance Directives: Do you have an Advance Directive: N 03/13/24 20:44 AD On File at [facility]: N 06/17/23 16:15 Date Asked 06/30/24 06/30/24 08:41 AD Date Reviewed COLST On File at [facility] No 12/04/23 16:58 COLST Date Scanned Code Status Resuscitation Status Full Code Portal Pt does not currently have a portal and education provided: No Portal Education: Other Insurance Coverage/Financial Issues Insurance: VA Care Team Visit Care Team Role Provider Type Maryann Whitt Primary Care Provider NURSE PRACTITIONER Genia Mari MD Emergency Provider [facility] STAFF PHYSICIAN Jimenez Payne MD Admit Provider [facility] STAFF PHYSICIAN Attending Provider Discharge Potential Discharge Needs: PCP F/U Appt Anticipated Barriers to Discharge: None Identified Patient/Family Education Needs: Review discharge instructions, discuss Ask Me Three Transportation: Private vehicle Plan: Merrill's discharge plan is unclear at this time. He has agreed to go to a SNF for short term rehab however he is in observation status. CM is working with the [place] to determine if this will be a barrier as [place] policies and rules may not necessarily the same as those followed by Medicare. CM will follow and support discharge needs. 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) Elevated troponin level not due myocardial infarction (Acute) Diabetes (Chronic) Leukopenia (Acute) Oral candidiasis (Acute) Sepsis syndrome (Acute) PAF (paroxysmal atrial fibrillation) (Chronic) Gram-negative bacteremia (Acute) Cellulitis (Acute) Lower urinary obstructive symptom (Acute) Encephalopathy, hepatic (Acute) Anemia of chronic disease (Acute) Thrombocytopenia (Chronic) Ventricular ectopy (Acute) Sinus bradycardia (Acute) Leukocytosis (Acute) Hypertension (Chronic) Elevated lactic acid level (Acute) CHF (congestive heart failure) (Chronic) No-show for appointment (Acute) Left rotator cuff tear (Acute) Acute UTI (urinary tract infection) (Acute) Weakness (Acute) Non-ST elevation NE (NSTEMI) (Acute) Pre-syncope (Acute) Frequent falls (Acute) Orthostatic hypotension (Acute) Chronic atrial fibrillation (Chronic) Type 2 diabetes mellitus (Chronic) Hypokalemia (Acute) Bradycardia (Acute) Multiple falls (Acute) Acute metabolic encephalopathy (Acute) Medication monitoring encounter (Acute) ANETTE (obstructive sleep apnea) (Chronic) Chest pain (Acute) CHF exacerbation (Acute) CHF (congestive heart failure) (Chronic) EF 25%- 2023 Medical History (Updated 07/01/24 @ 14:33 by Clary Damian MD) Bowel obstruction Sepsis Heart failure with reduced ejection fraction Hypothyroidism Small bowel obstruction Lactic acid acidosis Creatinine elevation Acute UTI Anticoagulated COVID Recurrent intestinal obstruction History of colon cancer Chronic anticoagulation Portal hypertension Cirrhosis [place]IPs placed ([place] [facility] 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, Dx [facility] as per pt Non-insulin dependent type 2 diabetes mellitus Incontinence Hypertension Scleral icterus Surgical History S/P TIPS (transjugular intrahepatic portosystemic shunt) H/O left hemicolectomy Colostomy in place Social History Smoking/Tobacco Use Status: Former Tobacco Use Smoking risk assessment performed?: Yes Alcohol Intake: former Drug use: Never Substance use type: does not use Housing: house Do you feel safe at home: Yes Do you feel safe in your relationship?: Yes Additional Social history: Lives with , son, and sick [id number] in [place], moved up from [place] in 2019. [place] . SDOH(Care Management) Screening Will the Patient Participate in the Screening?: Unable to obtain Do you worry about having a steady place to live?: no Problems where you live: unsafe michelle/stairs In the past 12 months, have you had to go without electric, gas, oil or water in your home?: no Have you or anyone in your house had to go without enough food to eat?: no Has lack of transportation kept you from medical appointments or from doing things needed for daily living?: no Has anyone in your support network made you feel unsafe for any reason?: no Social Determinants of Health Comments(SDOH Details): Inability to ambulate and get around home. Struggles with ADLs. Health Related Social Needs Health related social needs: inadequate housing(Z59.1) Health related social needs details: Unable to get in and out of home, ambulate or perform ADLs.
--- NOTE | 2024-07-01 12:31 | PGE_ITS ---
Date of Service Date of service: 07/01/24 Time of Service: 12:31 Assessment and Plan Assessment and plan (1) Encephalopathy, hepatic: Status: Acute Assessment and plan: -presented with increase confusion at home and elevated ammonia level, similar to previous hospitalization -additionally, as with previous hospitalization patient and reported to ED provider missing dosing of lactulose which likely precipitated current episode of encephalopathy. However, patient reported to me that he has been taking his lactulose 3 times a day as prescribed -this may be secondary to mediction noncompliance, or possibly precipitated by UTI or even over-diuresis resulting in RODOLFO -He does have chronic cirrhosis without ascites having TIPS procedure in the past, which increases risk of encephalopathy. -continue lactulose QID and rifaximin -will order abdomen US without ascites -again consulted Palliative Care to address code status, medication adherence, and goals of care (2) Cirrhosis of liver without ascites: Status: Chronic Assessment and plan: -Status post TIPS procedure, which does pre-dispose to encephalopathy Qualifiers: Hepatic cirrhosis type: unspecified hepatic cirrhosis Qualified Code(s): K74.60 - Unspecified cirrhosis of liver (3) UTI (urinary tract infection): Status: Acute Assessment and plan: -UA on admnission with 10-20 WBCs, moderate bacteria and patient complaints of dysuria -started on CTX, will continue -Prelim Ucx with GNRs -patient did develop fever of 38.1oF late morning 07/01; no other signs of infection present as patient denies cough, headache, abdominal pain and has benign abdominal and lung exam -if patient continues to be febrile will repeat CXR and blood cultures -f/u urine culture results (4) Acute kidney injury superimposed on CKD: Status: Acute Assessment and plan: -Cr 1.0 on discharge 6 days ago, now up to 1.8 -likely due to combination of UTI, encephalopathy, and or home lasix and s pironolactone which will be held -f/u AM CMP (5) Lactic acidosis: Status: Acute Assessment and plan: -LA up to 5.8, though patient without sepsis -likely due to combination of hepatic encephalopathy, RODOLFO on CKD -f/u repeat lactic (6) PAF (paroxysmal atrial fibrillation): Status: Chronic Assessment and plan: -rate controlled at this time -continue home carvedilol and eliquis (7) Hypertension: Status: Chronic Assessment and plan: -holding home lasix and spironolactone due to RODOLFO as noted above Qualifiers: Hypertension type: primary hypertension Qualified Code(s): I10 - Essential (primary) hypertension (8) Type 2 diabetes mellitus: Status: Chronic Assessment and plan: -Continue Jardiance -hold metformin -SSI< CCD Qualifiers: Diabetes mellitus halfway insulin use: without terminal worker use Diabetes mellitus complication status: with kidney complications Diabetes mellitus complication detail: with chronic kidney disease Chronic kidney disease stage: stage 2 (mild) Qualified Code(s): E11.22 - Type 2 diabetes mellitus with diabetic chronic kidney disease; N18.2 - Chronic kidney disease, stage 2 (mild) (9) ANETTE (obstructive sleep apnea): Status: Chronic Assessment and plan: -continue home CPAP (10) CHF (congestive heart failure): Status: Chronic Assessment and plan: -Continue outpatient medical therapy monitoring labs. This still appears to be stable. Qualifiers: Heart failure type: diastolic Heart failure chronicity: chronic Qualified Code(s): I50.32 - Chronic diastolic (congestive) heart failure Subjective Subjective Interval history since last seen: Patient states that he is feeling better today but did have a fever of 38.1oC just before I entered the room. Otherwise he states that his hallucinations have improved and has no other complaints or concerns at this time. Exam Narrative Exam Narrative: chronically ill appearing older gentleman laying in bed in no acute distress, AOx4, no longer verbilizing visual hallucinations, and the patterson moving though he know that they are not real, heart RRR, lungs CTAB, abdomen mildly distended, soft, non-tender Objective Last Vital Signs Temp 100.6 F H 07/01/24 12:06 Pulse 63 07/01/24 11:15 Resp 18 07/01/24 11:15 BP 144/93 H 07/01/24 11:15 Pulse Ox 95 07/01/24 11:15 Laboratory Results - last 24 hr 07/01/24 06:04 WBC 3.01 L RBC 3.91 L Hgb 11.9 L Hct 35.8 L MCV 92 MCH 30.4 MCHC 33.2 RDW 15.5 H Plt Count 59 L MPV 11.7 H Sodium 135 L Potassium 4.0 Chloride 102 Carbon Dioxide 24.8 Anion Gap 8.2 BUN 22 H Creatinine 1.2 Est GFR (CKD-EPI 2020) 62.29 Glucose 239 H Calcium 9.9 Magnesium 1.7 L Time Spent with Patient Time Spent with Patient: >50 minutes Time was spent: preparing to see the patient(eg.review tests), obtaining and/or reviewing separately otained hiistory, ordering medications,tests, procedures, referring, communicating with other health pediatric care coordinator, indepentently interpreting results, counseling the patient and care coordination
--- NOTE | 2024-07-01 14:19 | PCNE_ITS ---
Date of service: 07/01/24 Time of Service: 14:19 History of Present Illness Narrative: readmitted to [facility] (Obs status) Cannot tell me about why he has to come back to the hospital. But knows that son said he needed to come back. wants him to go to [facility] for 2 weeks to try and get better. Thinks that maybe he is dying. Many of his friends have . (How does that make you feel?) I don't know if Cely can manage without me. ( what chores do you do that she cannot do) Change in subject. Attempted to go through best case and worst scenario of going to [facility] for two weeks. Unable to answer, tangential. Pt does not appear to have the capacity to think this through at this time, cannot concentrate. Osmar Orellana is a 77 yo man who lives in [facility] with his . He is a [place], who receives care from [place] [facility]. 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 He receives specialty care from [facility], primary care from [facility] (reports Maryann Whitt PCP). The [facility] Palliative Team does NOT follow him as an outpt, as the [place] provides him with outpt Palliative Services. (I did one home visit18 months ago). Patient has a pattern of requiring inpatient acute admission about once a month over the last year. Reasons for admission include small bowel obstruction, urosepsis, hepatic encephalopathy. Palliative care consultation requested last week during his previous acute inpatient stay to review goals of care and advance care planning. Hospital team and care management concerned about his frequent readmissions. Last week I met with him and Clary.We had a very productive goals of care discussion. He was willing to complete a healthcare agent form (previously had insisted that he ready has 1, even though he does not know where it is and neither do we). I noted that one of his goals was to never ever stay in a senior living either short-term or long-term. However, he wanted to receive CPR should he have a cardiac arrest. We began discussion that wanting CPR may not align with his goal to stay out of the senior living. This led to a long and thoughtful discussion between patient and myself. Please see my June 24, 2024 note for details. Patient's felt that she would never be able to make a decision to withdraw care, felt this was too overwhelming. Patient himself had never thought about possible poor outcomes if resuscitated after CPR. He wanted to think about this some more and discuss it at a future date. Unfortunately, patient was readmitted yesterday with increased confusion. Patient reports he was compliant with taking all medications as prescribed including lactulose. and [facility] visiting nurse suspect that he has not been taking lactulose. Rifaximin was newly prescribed at the time of discharge last week. Unclear whether prescription was picked up/delivered and whether or not patient has started taking this. Unfortunately, was not at the hospital during my visit today. Patient was not sure when she was going to come in. Patient also seemed quite tired and much less on topic, then when we talked last week: He was tangential, he was oriented to place, but not month or year. He appeared slightly encephalopathic to me. Care Team: Primary Care physician: Maryann Staples, JARETT; at [facility] clinic, home visit nurse is Carlos Carver [place] Tanyard Worker P#[phone] GI: and patient deny bed they are currently involved with hepatology or GI surgery. Surgeon:Has had consults with [facility] surgeons over the last year but he cannot recall recently seeing [facility] surgeon. Social HX: Marital Status: Lives with Cely and Son Scott in home in [place]. 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 Two girls (by another ): Marium ([place]) and Marcelle ([place]) no connection Hobbies: Tropical Birds (currently 9 birds), 1 dog, 1 rabbit. Additional Services: VA services: VA nurse comes once a month for home visit. No terminal supervisor VA services. 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 Impression of currents health status: Pt: My health problems are from [facility]. Probably trending to do a bit better over the last 6-12 months. Having fewer episodes of SBO, which attributes to lactulose use. : Problems from Ammonia buildup. Has been very helpful to recognize that hepatic encephalopathy is causing many of his problems. Overall health probably little better over the last 6 months. Some days back pain is his worst problem for him, can be severe fear. What bothers you the most: Patient: When happening, increased ostomy input. Other days it is back pain and left shoulder pain. What worries you the most: Patient worries about his 's health. He notes that she has trouble walking and also falls asleep easily because of her narcolepsy. She does most of the housework. worries about : Worries about him hurting himself by doing too much work around the house. Goals: I want many things I cannot have -Wants ice cream, no barriers to this. Wants to stay out of the hospital Both patient and looking forward to leaving town on some sort of vacation for 2 weeks (her more so than him). No plans set. says her goal is that he will be cared for at home for the rest of his life no matter what. She is upset that her brother was taken from the house at the end of hs life to be cared for in the hopsital. Current information preferences: Function: Ambulation: Walker ADLs: Stairchair to second floor. Needs help with dressing (getting socks and shoes and pullups on), can do upper themselves. iADLs: A little vacuuming, can prepare a simple snack (never cooked), and son do finanaces (she is teaching son to do finances). Hearing: Reduced hearing but no hearing aids (on order) Vision: Glasses Cognition: Intermittent hepatic encephalopathy Falls: Occasional. Last fall was 6 weeks ago and fell in the shower (that fall was due to dizzyness) Driving: No, son drives. Palliative Performance Scale % Ambulation Activity and Evidence of Disease Self Care Intake Level of Consciousness 100 Full Normal activity, no evidence of disease Full Normal Full 90 Full Normal activity, some evidence of disease Full Normal Full 80 Full Normal activity with effort, some evidence of disease Full Normal or reduced Full 70 Reduced Unable to do normal work, some evidence of disease Full Normal or reduced Full 60 Reduced Unable to do hobby or some housework, significant disease Occasional assist necessary Normal or reduced Full or confusion 50 Mainly sit/lie Unable to do any work, extensive disease Considerable assistance required Normal or reduced Full or confusion 40 Mainly in bed Unable to do any work, extensive disease Mainly assistance Normal or reduced Full, drowsy, or confusion 30 Totally bed bound Unable to do any work, extensive disease Total care Reduced Full, drowsy, or confusion 20 Totally bed bound Unable to do any work, extensive disease Total care Minimal sips Full, drowsy, or confusion 10 Totally bed bound Unable to do any work, extensive disease Total care Mouth care only Drowsy or coma 0 - - - - 60 Patient Score: Spiritual history: Used to go to [facility] (stopped going when they got into [employer]). Prayer not helpful. Believes in God. Palliative review of systems: See HPI Pain: Dyspnea: GI symptoms: See HPI. Appetite: Fine Depression: Anxiety: None Emotional Distress: Spiritual/Existential Distress: Labs: Cr: 1.2 (recent baseline 0.9-1.1, 1.8 upon admission yesterday) Liver panel: Bili 1.12 (recent range 1.6-3.1); AST/ALT generally WNL, INR 1.2, ammonia 131 Albumin: 3.0 CBC: hgb 12.9, plts 59 (within usual range) INR 1.2 Advanced Care Planning: Advanced Directive: None ([place] has tried to get him to complete in the past, unsuccessful as per [facility] provider). REY pamphlet about ADs that includes [place] AD form given to and explained. Health Care Agent: Clary DANIELSON:Full Code, see discussion under assessment and plan Limitations: Assessment and Plan Assessment and plan (1) Goals of care, counseling/discussion: Status: Acute Assessment and plan: Patient alone in room and not present. He appears to have mild encepahopathy and is unable to stay on topic. When we spoke last week, he was much sharper. #Advance care planning: Unable to have advanced care planning discussion today around Lifesustaining treatment or GOC, as I do not believe pt has capacity today (at this time) to make this complex decision. It would be best to have him fully clear for any GOC discussion (and he was indeed clear last week when we last met) Plan: Please have Care management arrange family meeting with patient and , preferably on a day that patient is the clearest he can by (with reagards to hepatic encephalopathy). This may not happen on this admission. IF he is admitted to [facility] within our area, we can try to do f/u visit when he is there. #Hepatic encephalopathy: Case management is going to speak with and/or pharmacy and/or VA to see if patient did indeed get rifaximin prescription delivered/filled and whether or not he actually has been taking it (and for how long). Outpatient VA team will continue to work on system to make sure that patient takes/gets medications # Caregiver stress/discharge planning: In the past patient has always been adamantly against spending any time in penitentiary facility even for short subacute rehab stay. He tells me today that his and case management strongly are recommending that he go to subacute rehab at the time of discharge to get stronger. He is upset that they are asking him, not sure it is going to help Attempted to explore this with him further. He was somewhat tangential. Offered to try best case worst-case scenario discussion, but he quickly went off topic. I do think important development that he is aware that his and other medical providers concerned that he may need additional support at least short- term. And he is thinking about this When we meet in the future, and if he is not encephalopathic, we will attempt to explore this again. (2) Encephalopathy, hepatic: Status: Acute (3) Advanced care planning/counseling discussion: Status: Acute (4) Cirrhosis of liver without ascites: Status: Chronic Qualifiers: Hepatic cirrhosis type: unspecified hepatic cirrhosis Qualified Code(s): K74.60 - Unspecified cirrhosis of liver [facility] All Active Problems (Updated 07/01/24 @ 14:33 by Clary Damian MD) Palliative care encounter (Acute) Followed by [facility] Goals of care, counseling/discussion (Acute) Lactic acidosis (Acute) Acute kidney injury superimposed on CKD (Acute) UTI (urinary tract infection) (Acute) Anemia (Chronic) Urinary tract infection (Acute) Thrombocytopenia (Chronic) Encephalopathy, hepatic (Acute) Colostomy care (Acute) Chronic low back pain (Chronic) Advanced care planning/counseling discussion (Acute) Hematuria (Acute) Cirrhosis of liver without ascites (Chronic) Elevated troponin level not due myocardial infarction (Acute) Diabetes (Chronic) Leukopenia (Acute) Oral candidiasis (Acute) Sepsis syndrome (Acute) PAF (paroxysmal atrial fibrillation) (Chronic) Gram-negative bacteremia (Acute) Cellulitis (Acute) Lower urinary obstructive symptom (Acute) Encephalopathy, hepatic (Acute) Anemia of chronic disease (Acute) Thrombocytopenia (Chronic) Ventricular ectopy (Acute) Sinus bradycardia (Acute) Leukocytosis (Acute) Hypertension (Chronic) Elevated lactic acid level (Acute) CHF (congestive heart failure) (Chronic) No-show for appointment (Acute) Left rotator cuff tear (Acute) Acute UTI (urinary tract infection) (Acute) Weakness (Acute) Non-ST elevation FL (NSTEMI) (Acute) Pre-syncope (Acute) Frequent falls (Acute) Orthostatic hypotension (Acute) Chronic atrial fibrillation (Chronic) Type 2 diabetes mellitus (Chronic) Hypokalemia (Acute) Bradycardia (Acute) Multiple falls (Acute) Acute metabolic encephalopathy (Acute) Medication monitoring encounter (Acute) ANETTE (obstructive sleep apnea) (Chronic) Chest pain (Acute) CHF exacerbation (Acute) CHF (congestive heart failure) (Chronic) EF 25%- 2023 Medical History (Updated 07/01/24 @ 14:33 by Clary Damian MD) Bowel obstruction Sepsis Heart failure with reduced ejection fraction Hypothyroidism Small bowel obstruction Lactic acid acidosis Creatinine elevation Acute UTI Anticoagulated COVID Recurrent intestinal obstruction History of colon cancer Chronic anticoagulation Portal hypertension Cirrhosis TIPs placed (?when, 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, Dx [facility] as per pt Non-insulin dependent type 2 diabetes mellitus Incontinence Hypertension Scleral icterus Surgical History S/P TIPS (transjugular intrahepatic portosystemic shunt) H/O left hemicolectomy Colostomy in place Social History Smoking/Tobacco Use Status: Former Tobacco Use Smoking risk assessment performed?: Yes Alcohol Intake: former Drug use: Never Substance use type: does not use Housing: house Do you feel safe at home: Yes Do you feel safe in your relationship?: Yes Additional Social history: Lives with , son, and sick anxyobm-eh-sex in [place], moved up from [place] in 2019. [place]. Results Last Vital Signs Temp 38.1 C H 07/01/24 12:06 Pulse 63 07/01/24 11:15 Resp 18 07/01/24 11:15 BP 144/93 H 07/01/24 11:15 Pulse Ox 95 07/01/24 11:15 Labs 07/01/24 06:04 07/01/24 06:04 Labs: Laboratory Results - last 24 hr 07/01/24 06:04 WBC 3.01 L RBC 3.91 L Hgb 11.9 L Hct 35.8 L MCV 92 MCH 30.4 MCHC 33.2 RDW 15.5 H Plt Count 59 L MPV 11.7 H Sodium 135 L Potassium 4.0 Chloride 102 Carbon Dioxide 24.8 Anion Gap 8.2 BUN 22 H Creatinine 1.2 Est GFR (CKD-EPI 2020) 62.29 Glucose 239 H Calcium 9.9 Magnesium 1.7 L Time Spent Time Spent with Patient Time Spent(min): 60
[2024-07-01] MEDS: Rosuvastatin 20 MG TAB 40 MG PO (19:29)
[2024-07-01] MEDS: Melatonin 3 MG TAB PO (22:47)
[2024-07-02 03:37] VITALS: BP 161/75; PULSE 61; RESP 16; TEMP 37.7; O2SAT 93
[2024-07-02] MEDS: Levothyroxine 100 MCG TAB PO (05:34)
[2024-07-02] MEDS: cefTRIAXone 1 GM/50 ML BAG IVPB (05:36)
[2024-07-02 07:26] LABS: HCT 37.6 % (40.0-50.0); HGB 12.5 g/dL (13.5-17.5); MCH 30.3 pg (27.0-33.0); MCHC 33.2 % (32.0-36.0); MCV 91 fL (80-95); MPV 11.4 fL (8.0-11.0); RBC 4.13 10^6/uL (4.36-5.78); RDW 15.3 % (11.8-14.1); RDW-SD 51.3 fL; WBC 4.83 10^3/uL (4.4-10.8)
[2024-07-02 07:34] VITALS: BP 168/60; PULSE 71; RESP 17; TEMP 37.1; O2SAT 95
[2024-07-02 08:06] LABS: ALT 33 U/L (16-63); AST 50 U/L (15-37); Albumin 2.8 g/dL (3.4-5.0); Alkaline Phosphatase 140 U/L (46-116); Anion Gap 9.5 mmol/L (3-11); BUN 18 mg/dL (7-18); Bilirubin, Total 1.43 mg/dL (0.2-1.0); CO2 26.5 mmol/L (21.0-32.0); CREATININE 1.2 mg/dL (0.70-1.30); Calcium 10.1 mg/dL (8.5-10.1); Chloride 103 mmol/L (98-107); Estimated GFR 62.29 (mL/min/1.73m2); Glucose 168 mg/dL (74-106); Potassium 4.4 mmol/L (3.5-5.1); Sodium 139 mmol/L (136-145); Total Protein 6.4 g/dL (6.4-8.2)
[2024-07-02 08:09] LABS: Platelet Count 69 10^3/uL (130-400)
[2024-07-02] MEDS: Empaglifozin 25 MG TAB PO (08:11)
[2024-07-02] MEDS: Tamsulosin 0.4 MG CAPCR 0.8 MG PO (08:11)
[2024-07-02] MEDS: Ferrous Sulfate 325 MG TAB PO (08:11)
[2024-07-02] MEDS: Venlafaxine 150 MG CAPCR PO (08:11)
[2024-07-02] MEDS: Apixaban 5 MG TAB PO ×2 (08:11→20:59)
[2024-07-02] MEDS: Lactulose 20 GM/30 ML CUP PO ×4 (08:11→20:59)
[2024-07-02] MEDS: Rifaximin 550 MG TAB PO ×2 (08:11→20:59)
[2024-07-02] MEDS: Insulin Aspart 300 UNITS/3 ML PEN SC ×3 (08:12→17:05)
[2024-07-02] MEDS: Insulin Glargine 300 UNITS/3 ML PEN 10 UNITS SC (08:14)
[2024-07-02] MEDS: Normal Saline Flush 10 ML SYR IVP ×2 (08:23→21:00)
[2024-07-02] MEDS: Acetaminophen 325 MG TAB PO (08:23)
--- NOTE | 2024-07-02 09:23 | CMPROGNOTE_ITS ---
Date of service: 07/02/24 Time of Service: 09:23 Care Management Progress Note Progress Note Text Progress Note Text: Merrill was sitting up in bed when CM met with him. He was alert and oriented and engaged easily with CM. Merrill has not been doing well at home. CM has received communication from his PCP and healthcare financial analyst at the [place] as well as from his and others involved in his care. All express concern and have suggested that he might benefit from short or correction rehab. CM discussed this with Merrill who has previously been unwilling to consider rehab. As Merrill is in Observation status, he would not be eligible for a Medicare admission to rehab from his current hospital stay, however his 06/22-06/25/24 hospitalization was inpatient. At this time, Merrill is agreeable. Referrals were sent to [facility] and [facility] and the [facility]. Clinically, Merrill is doing better. He had a PT evaluation today and did well; he was able to ambulate 200 feet with his walker. Discharge Potential Discharge Needs: PCP F/U Appt Anticipated Barriers to Discharge: None Identified Patient/Family Education Needs: Review discharge instructions, discuss Ask Me Three Transportation: Private vehicle Plan: Anticipate Merrill will be transferred to a SNF for short term rehab vs returning home with home health. He has agreed to go to rehab but his is having second thoughts. CM will follow and continue to assess for discharge needs. SDOH(Care Management) Screening Will the Patient Participate in the Screening?: Unable to obtain Do you worry about having a steady place to live?: no Problems where you live: unsafe michelle/stairs In the past 12 months, have you had to go without electric, gas, oil or water in your home?: no Have you or anyone in your house had to go without enough food to eat?: no Has lack of transportation kept you from medical appointments or from doing things needed for daily living?: no Has anyone in your support network made you feel unsafe for any reason?: no Social Determinants of Health Comments(SDOH Details): Inability to ambulate and get around home. Struggles with ADLs. Health Related Social Needs Health related social needs: inadequate housing(Z59.1) Health related social needs details: Unable to get in and out of home, ambulate or perform ADLs.
--- NOTE | 2024-07-02 10:17 | W.NUTRFU ---
Date of service: 07/01/24 Time of Service: 03:00 Nutrition Note NOTE: Visited with Merrill, who has a long medical history with recurrent admissions. Nutrition-significant PMH includes s/p colostomy, cirrhosis, DM2, HTN, CHF. His oral intake at meals has been very good. Denies problems chewing and swallowing despite missing multiple teeth on the bottom and missing upper denture plate (which he states their dog took and most likely ate). He does report a cough when swallowing water but states doesn't impede his intake - I just take my time. Pt ordered for low sodium, carb consistent diet with normal consistencies and he orders his meals with [employer] and states he can ask to modify foods if needed. last A1C was 8.2 last december with his fasting glucose 150-247. PT not a good reported/historian of medication use at home to manage diabetes - states he does not take insulin although this was prescribed in April. Pt declined detailed education at this time. Unless contraindicated, GLP-1 RA could be considered to help being A1C closer to goal. Pt would benefit from outpatient diabetes education with sons/caregivers present so he can work on better glycemic control at home, with support, if that will be discharge plan. Time Spent in Nutritional Counseling and Treatment: 15 min
[2024-07-02 11:05] VITALS: BP 135/48; PULSE 60; RESP 18; TEMP 37.3; O2SAT 92
--- NOTE | 2024-07-02 13:53 | PGE_ITS ---
Date of Service Date of service: 07/02/24 Time of Service: 13:53 Assessment and Plan Assessment and plan (1) Encephalopathy, hepatic: Status: Acute Assessment and plan: -presented with increase confusion at home and elevated ammonia level, similar to previous hospitalization -additionally, as with previous hospitalization patient and reported to ED provider missing dosing of lactulose which likely precipitated current episode of encephalopathy. However, patient reported to me that he has been taking his lactulose 3 times a day as prescribed -this may be secondary to mediction noncompliance, or possibly precipitated by UTI or even over-diuresis resulting in RODOLFO -He does have chronic cirrhosis without ascites having TIPS procedure in the past, which increases risk of encephalopathy. -continue lactulose QID and rifaximin -No ascites, so SBP evaluation not an issue -Appreciated Palliative Care consult, per plan to discharge to rehab this time, will be Thursday 07/05 (2) Cirrhosis of liver without ascites: Status: Chronic Assessment and plan: -Status post TIPS procedure, which does pre-dispose to encephalopathy -Labs reflect roughly stable liver function Qualifiers: Hepatic cirrhosis type: unspecified hepatic cirrhosis Qualified Code(s): K74.60 - Unspecified cirrhosis of liver (3) UTI (urinary tract infection): Status: Acute Assessment and plan: -UA on admnission with 10-20 WBCs, moderate bacteria and patient complaints of dysuria, fever 07/01 but not since -UCx growing Serratia, on day 3 of ceftriaxone, culture is sensitive -Blood cultures negative, no ascites to raise concern of SBP -Plan 7 days of antibiotics, could transition to oral 3rd gen cephalosporin or floroquinolone at discharge (4) Acute kidney injury superimposed on CKD: Status: Acute Assessment and plan: -Cr 1.0 on discharge 6 days ago, 1.8 on admission -likely due to combination of UTI, encephalopathy, and perhaps overduiresis -home lasix and spironolactone held. He is not retaining fluid so we may be able to discontinue these and only use diuretics prn. -Losartan was held, resume today (5) Lactic acidosis: Status: Acute Assessment and plan: -LA up to 5.8, though patient without sepsis -likely due to combination of hepatic encephalopathy, RODOLFO on CKD -lactate not repeated but AG closed c/w resolution (6) PAF (paroxysmal atrial fibrillation): Status: Chronic Assessment and plan: -rate controlled at this time -continue home carvedilol and eliquis (7) Hypertension: Status: Chronic Assessment and plan: -holding losartan as well as home lasix and spironolactone due to RODOLFO as noted above -resuming ARB today Qualifiers: Hypertension type: primary hypertension Qualified Code(s): I10 - Essential (primary) hypertension (8) Type 2 diabetes mellitus: Status: Chronic Assessment and plan: -Continue Jardiance -On 10unit glargine and low dose SSI -GFR normalized, resume metformin given terminal system operator benefit in DM with cirrhosis Qualifiers: Diabetes mellitus terminal system operator insulin use: without group home use Diabetes mellitus complication status: with kidney complications Diabetes mellitus complication detail: with chronic kidney disease Chronic kidney disease stage: stage 2 (mild) Qualified Code(s): E11.22 - Type 2 diabetes mellitus with diabetic chronic kidney disease; N18.2 - Chronic kidney disease, stage 2 (mild) (9) ANETTE (obstructive sleep apnea): Status: Chronic Assessment and plan: -continue home CPAP (10) CHF (congestive heart failure): Status: Chronic Assessment and plan: -With reduced LVEF 25% 02/17 -On outpatient medical therapy monitoring labs, was holding ARB and spironolactone, resumed losartan today. On empaglifozin. -This still appears to be stable clinically in terms of fluid status. Qualifiers: Heart failure type: diastolic Heart failure chronicity: chronic Qualified Code(s): I50.32 - Chronic diastolic (congestive) heart failure Subjective Subjective Patient reports: tolerating a regular diet and voiding w/o difficulty; denies blood in stool, nausea, vomiting, shortness of breath or fever Interval history since last seen: He feels better today, states he remembers coming in a couple of days ago, but still feels a little cloudy headed. Some tremor still. He is eating and drinking. ostomy producing Exam Narrative Exam Narrative: chronically ill appearing older gentleman laying in bed in no acute distress. Alert and oriented to self, time, some aspects of situation, but not place. Not verbilizing visual hallucinations. Heart RRR. Lungs CTAB with normal effort. Abdomen mildly distended, soft, non-tender. Ext trace bilateral edema, not tender. Objective Last Vital Signs Temp 37.3 C 07/02/24 11:05 Pulse 60 07/02/24 11:05 Resp 18 07/02/24 11:05 BP 135/48 L 07/02/24 11:05 Pulse Ox 92 07/02/24 11:05 Laboratory Results - last 24 hr 07/02/24 07/02/24 06:30 12:55 WBC 4.83 RBC 4.13 L Hgb 12.5 L Hct 37.6 L MCV 91 MCH 30.3 MCHC 33.2 RDW 15.3 H Plt Count 69 L MPV 11.4 H Sodium 139 Potassium 4.4 Chloride 103 Carbon Dioxide 26.5 Anion Gap 9.5 BUN 18 Creatinine 1.2 Est GFR (CKD-EPI 2020) 62.29 Glucose 168 H Calcium 10.1 Total Bilirubin 1.43 H AST 50 H ALT 33 Alkaline Phosphatase 140 H Troponin I High Sens Cancelled Total Protein 6.4 Albumin 2.8 L Time Spent with Patient Time Spent with Patient: 35-49 minutes Time was spent: preparing to see the patient(eg.review tests), obtaining and/or reviewing separately otained hiistory, ordering medications,tests, procedures, referring, communicating with other health child caregiver private home, indepentently interpreting results, counseling the patient and care coordination
[2024-07-02 15:36] VITALS: BP 158/68; PULSE 56; RESP 17; TEMP 37; O2SAT 92
[2024-07-02] MEDS: metFORMIN C.R. 500 MG TABCR PO (15:39)
--- NOTE | 2024-07-02 16:04 | IN_ITS ---
PT Notes Visit Reasons: Hepatic Encephalopathy DISCHARGE RECOMMENDATIONS: [] ? Home with no services [] [X] ? Home with services. RESUME home health PT services in order to progress mobility level using least restrictive assistive ambulatory device, assess home safety, identify additional equipment needs, and establish a functional maintenance program that will increase ability of patient to remain at home. [] ? Home with outpatient PT [] [] ? SNF for continued rehabilitation [] [] ? Care Home Care [] [] ? SNF versus LTC based on ability to participate and progress [] Physical Therapy Inpatient Initial Evaluation Date: 07/02/2024 Referring Doctor: Elia Arizmendi MD PT Orders: PT CONSULT: Safety Consult for D/C. fall safety assessment. Likely rehab placement Friday Precautions: Fall. Standard. Activity as tolerated. Colostomy bag in place. Patient Profile/Admitting Diagnosis:? Osmar is a 79-year-old male patient with past medical history significant for colon cancer with colostomy in place who presented to the ED on 06/30/2024 due togeenralized weaknss and unsteady gait. He is admitted for management of hepatic encephalopathy, cirrhosis of liver with ascites, UTI, RODOLFO superimposed on CKD, lactic acidosis, and PAF. PMHX: All Active Problems (Updated 06/30/24 @ 08:41 by JOSE LUIS REICH) Lactic acidosis (Acute) Acute kidney injury superimposed on CKD (Acute) UTI (urinary tract infection) (Acute) Anemia (Chronic) Urinary tract infection (Acute) Thrombocytopenia (Chronic) Encephalopathy, hepatic (Acute) Colostomy care (Acute) Chronic low back pain (Chronic) Advanced care planning/counseling discussion (Acute) Hematuria (Acute) Cirrhosis of liver without ascites (Chronic) Elevated troponin level not due myocardial infarction (Acute) Diabetes (Chronic) Leukopenia (Acute) Oral candidiasis (Acute) Sepsis syndrome (Acute) PAF (paroxysmal atrial fibrillation) (Chronic) Gram-negative bacteremia (Acute) Cellulitis (Acute) Lower urinary obstructive symptom (Acute) Encephalopathy, hepatic (Acute) Anemia of chronic disease (Acute) Thrombocytopenia (Chronic) Ventricular ectopy (Acute) Sinus bradycardia (Acute) Leukocytosis (Acute) Hypertension (Chronic) Elevated lactic acid level (Acute) CHF (congestive heart failure) (Chronic) No-show for appointment (Acute) Left rotator cuff tear (Acute) Acute UTI (urinary tract infection) (Acute) Weakness (Acute) Non-ST elevation IN (NSTEMI) (Acute) Pre-syncope (Acute) Frequent falls (Acute) Orthostatic hypotension (Acute) Chronic atrial fibrillation (Chronic) Type 2 diabetes mellitus (Chronic) Hypokalemia (Acute) Bradycardia (Acute) Multiple falls (Acute) Acute metabolic encephalopathy (Acute) Medication monitoring encounter (Acute) ANETTE (obstructive sleep apnea) (Chronic) Chest pain (Acute) CHF exacerbation (Acute) CHF (congestive heart failure) (Chronic) EF 25%- 2023 Medical History (Updated 06/30/24 @ 08:41 by JOSE LUIS REICH) Palliative care encounter [facility] [place] [facility] Seps[facility] Heart failure with reduced ejection fraction Hypothyroidism Small bowel obstruction Lactic acid acidosis Creatinine elevation Acute UTI Anticoagulated COVID Recurrent intestinal obstruction History of colon cancer Chronic anticoagulation Portal hypertension Cirrhosis TIPs placed (?when, [facility]? 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 has not been doing well herself and cannot help patient physically. Son does not work and is available 19/05. Ambulatory inside the house using FWW. Has a stair lift leading to the bedroom upstairs. Gets meals on wheels. Equipment Owned/DME: 4WW, FWW, SPC, scooter, stair lift Subjective: Agreeable to mobility assessment. Denies headache, chest pain, and lightheadedness throughout session. Objective: General Observation: Supine in bed. Colostomy bag in place. Mental Status: Alert and oriented as to person, place, time, and purpose. Able to pay attention, focus, and respond appropriately. Pain: None reported Vital Signs: Closely monitored by nursing staff ROM: Right Upper Extremity: ? Shoulder Flexion WFL. Shoulder abduction WFL. Elbow flexion WFL. Wrist flexion WFL. Functional opening and closing of hand WFL. Left Upper Extremity:? Shoulder Flexion allows up to 90 degrees only. Shoulder abduction allows up to 80 degrees only. Elbow flexion WFL. Wrist flexion WFL. Functional opening and closing of hand WFL. Right Lower Extremity: Hip flexion lacks the last 25% discomfort. Hip abduction WFL. Knee flexion 20 degrees to 90 degrees. Knee extension -20 degrees. Ankle dorsiflexion to neutral only. Ankle plantarflexion WFL. Left Lower Extremity: Hip flexion WFL. Hip abduction WFL. Knee flexion WFL. Ankle dorsiflexion to neutral only. Ankle plantarflexion WFL. Strength: Right Upper Extremity: Shoulder flexors 4-/5. Shoulder abductors 4-/5. Elbow flexors 4-/5. Elbow extensors 4-/5. Interior Design Faculty Member strong. Left Upper Extremity: Shoulder flexors 3-/5. Shoulder abductors 3-/5. Elbow flexors 4-/5. Elbow extensors 4-/5. Interior Design Faculty Member strong. Right Lower Extremity: Hip flexors 4-/5. Hip abductors 4-/5. Knee flexors 5-/5. Knee extensors 4-/5. Ankle dorsiflexors 3-/5. Ankle plantarflexors 4-/5. Left Lower Extremity: Hip flexors 4-/5. Hip abductors 4-/5. Knee flexors 5-/5. Knee extensors 4-/5. Ankle dorsiflexors 3-/5. Ankle plantarflexors 4-/5. Bed Mobility/Transfers: Moderate cueing provided for use of B hands as needed for support, movement sequence, Ad management, and and posture to reduce fall risk and minimize pain report. Supine to sit stand by assist Sit to stand stand by assist with FWW Stand to sit stand by assist with FWW Bed to reclining chair stand by assist with FWW Gait: Instructed patient with level surface ambulation of 200 feet requiring stand by assist using front-wheeled walker. Moderate verbal cueing provided for walker management, directional change, and overall safety. [place] reported. No LOB. No shortness of breath Balance: Static Sitting: Normal Dynamic Sitting: Normal Static Standing: Fair Dynamic Standing: Fair Special Tests: Mobility Limitations Standardized Measure [facility] 6 clicks Basic Mobility Inpatient Short Form: Raw Score: 23 ? CMS Score: 11% deficit? ? ? 4-Stage Balance test: Feet together 10 seconds Semi-tandem <10 seconds Full tandem <10 seonds One-legged stance <10 seconds Informed Consent/Education:? Patient was instructed in purpose of PT consult and plan of care. Agreeable to proceed with established PT POC to achieve personal goals. ASSESSMENT: At risk for falls, requires use of FWW for all mobility ADL performance. Patient presents with clinical signs and symptoms consistent with current/admitting diagnoses that have resulted to mobility limitations, gait instability, generalized weakness, and overall ADL decline as demonstrated by the following impairment level findings: 1.? Impaired standing balance 2.? Impaired activity tolerance Impairments are contributing to the following functional limitations: 1.? Difficulty with ambulation without assistive device 2.? Increased completion time for mobility ADL performance 3.? Increased risk for falls Patient is assessed as a 69643 moderate complexity based on the following: History: 78-year-old male with past medical history as indicated above Examination: Demonstrable impairment in strength, balance, and mobility level with underlying impairments and functional limitations as exhibited above Presentation: Evolving Decision Makin moderate complexity Goals: Goals X1 week 1. Supine-Sit independent 2. Sit-Supine independent 3. Sit-Stand independent 4. Stand-Sit independent 5. Bed-Chair independent 6. Chair-Bed independent 7. Independent gait on level surface with use of FWW for at least 300 feet without report of pain nor dyspnea 8. Good static and dynamic standing balance/tolerance Plan of Care/Treatment Plan: Patient will highly benefit from skilled physical therapy services including functional mobility training, bed mobility/transfer training, gait and balance training, therapeutic exercises, therapeutic activity, caregiver/staff/family education and training 1x/day, 7 days/week x 1 week. Plan of care has been reviewed with the RETAIL ADVERTISING ACCOUNT EXECUTIVE providing the service under Physical Therapy direction. Initiate Physical Therapy intervention for strengthening, bed mobility, transfers, gait, stairs, balance training, use of assistive device. TREATMENT CODE/TIME: 89306 x 22 minutes for 1 unit (15:40-16:02). Thank you for the opportunity to participate in the care of this patient. Nita Denis PT, DPT, CLT [facility] [place], [place]
--- NOTE | 2024-07-02 20:00 | RESPIRATORY ---
RT spoke with pt. for ANETTE. Pt. states he does use home CPAP machine without supplemental of O2 which he did not bring it here. Pt. refuses to use [facility]'s machine at this time, states he will be okay without it. RT informed pt. to let us know if he changes his mind to use hospital's CPAP machine.
[2024-07-02 20:55] VITALS: BP 155/65; PULSE 70; RESP 16; TEMP 37; O2SAT 96
[2024-07-02] MEDS: Rosuvastatin 20 MG TAB 40 MG PO (20:59)
[2024-07-02] MEDS: Melatonin 3 MG TAB PO (20:59)
[2024-07-03] VITALS (7 sets, daily range): BP systolic 134–153; BP diastolic 55–81; PULSE 50–60; RESP 14–18; TEMP 36.5–37.1; O2SAT 93–96
[2024-07-03] MEDS: Levothyroxine 100 MCG TAB PO (06:25)
[2024-07-03] MEDS: cefTRIAXone 1 GM/50 ML BAG IVPB (06:25)
[2024-07-03 07:06] LABS: Anion Gap 8.7 mmol/L (3-11); BUN 21 mg/dL (7-18); CO2 24.3 mmol/L (21.0-32.0); Calcium 10.6 mg/dL (8.5-10.1); Chloride 103 mmol/L (98-107); Estimated GFR 77.52 (mL/min/1.73m2); Glucose 134 mg/dL (74-106); Sodium 136 mmol/L (136-145)
[2024-07-03] MEDS: Normal Saline Flush 10 ML SYR IVP ×2 (08:25→20:26)
[2024-07-03] MEDS: Lactulose 20 GM/30 ML CUP PO ×4 (08:26→20:25)
[2024-07-03] MEDS: Insulin Glargine 300 UNITS/3 ML PEN 10 UNITS SC (08:27)
[2024-07-03] MEDS: Rifaximin 550 MG TAB PO ×2 (08:29→20:25)
[2024-07-03] MEDS: Clobetasol 0.05% CREAM 15 GM TUBE TP (08:29)
[2024-07-03] MEDS: metFORMIN C.R. 500 MG TABCR PO (08:29)
[2024-07-03] MEDS: Losartan 50 MG TAB PO (08:29)
[2024-07-03] MEDS: Apixaban 5 MG TAB PO ×2 (08:29→20:25)
[2024-07-03] MEDS: Venlafaxine 150 MG CAPCR PO (08:30)
[2024-07-03] MEDS: Tamsulosin 0.4 MG CAPCR 0.8 MG PO (08:30)
[2024-07-03] MEDS: Ferrous Sulfate 325 MG TAB PO (08:30)
[2024-07-03] MEDS: Empaglifozin 25 MG TAB PO (08:30)
[2024-07-03] MEDS: Carvedilol 3.125 MG TAB PO ×2 (09:20→17:05)
--- NOTE | 2024-07-03 09:57 | PT.INTREAT ---
PT Notes Visit Reasons: Hepatic Encephalopathy Date: 07/03/24 PRECAUTIONS: Fall. Standard. Activity as tolerated. Colostomy bag in place. SUBJECTIVE: Pt in bed when approached for therapy this morning, pt reports he had a difficult time getting straight sleep last night due to staff waking him up. OBJECTIVE: ?Supine in bed. Colostomy bag in place.? PAIN: denies VITALS: Monitored by nursing Therapeutic Activities 21370: Direct one-on-one instruction in dynamic activities to improve functional performance. ?? BED MOBILITY/TRANSFERS? Rolling L/R: independent Supine-sit: ?independent? Sit-supine: ?independent ? Sit-stand: ? independent ? Stand-sit: ??independent ? Bed-Chair:? independent? Chair-bed: independent Provided skilled cues and instruction on performance and technique throughout. Gait Training 94495: Direct one-on-one instruction and skilled instruction in: Employing an assistive device Movement sequencing Turning and movement with proper form Provided verbal cues for equipment management and technique Provided instruction in gait pattern Patient education regarding pacing and breathing techniques to maximize activity tolerance? GAIT? Assistive Device: ?FWW ? Weight bearing: FWB Assist: ?Supervision ? Distance:?? 300'? Deviation: ?Minimal verbal cueing provided for walker management, directional change, and overall safety. No pain reported. No LOB. No shortness of breath ? STAIRS:? ?Step over step, bilateral handrail, tolerating 6x 2, 4 x3 ?supervision, No pain reported. No LOB. No shortness of breath ? ASSESSMENT:?Pt able to complete activity without report of pain or SOB PLAN: Continue with balance training, global strengthening and general conditioning for improved safety, mobility and activity tolerance until pt is ready for DC. TREATMENT CODE/TIME: 90765d0 15mins (9:40-9:55am)
--- NOTE | 2024-07-03 10:09 | PGE_ITS ---
Date of Service Date of service: 07/03/24 Time of Service: 10:09 Assessment and Plan Assessment and plan (1) Encephalopathy, hepatic: Status: Acute Assessment and plan: -presented with increase confusion at home and elevated ammonia level, similar to previous hospitalization -additionally, as with previous hospitalization patient and reported to ED provider missing dosing of lactulose which likely precipitated current episode of encephalopathy. However, patient reported to me that he has been taking his lactulose 3 times a day as prescribed -this may be secondary to mediction noncompliance, or possibly precipitated by UTI or even over-diuresis resulting in RODOLFO -He does have chronic cirrhosis without ascites having TIPS procedure in the past, which increases risk of encephalopathy. -continue lactulose QID and rifaximin -No ascites, so SBP evaluation not an issue -Appreciated Palliative Care consult, per plan to discharge to rehab this time, will be Thursday 07/05 (2) Cirrhosis of liver without ascites: Status: Chronic Assessment and plan: -Status post TIPS procedure, which does pre-dispose to encephalopathy -Labs reflect roughly stable liver function Qualifiers: Hepatic cirrhosis type: unspecified hepatic cirrhosis Qualified Code(s): K74.60 - Unspecified cirrhosis of liver (3) UTI (urinary tract infection): Status: Acute Assessment and plan: -UA on admnission with 10-20 WBCs, moderate bacteria and patient complaints of dysuria, fever 07/01 but not since -UCx growing Serratia, on day 3 of ceftriaxone, culture is sensitive -Blood cultures negative, no ascites to raise concern of SBP -Plan 7 days of antibiotics, could transition to oral 3rd gen cephalosporin or floroquinolone at discharge (4) Acute kidney injury superimposed on CKD: Status: Acute Assessment and plan: -Cr 1.0 on discharge 6 days ago, 1.8 on admission -likely due to combination of UTI, encephalopathy, and perhaps overduiresis -home lasix and spironolactone held. He is not retaining fluid so we may be able to discontinue these and only use diuretics prn. -Losartan was held, resume today (5) Lactic acidosis: Status: Acute Assessment and plan: -LA up to 5.8, though patient without sepsis -likely due to combination of hepatic encephalopathy, RODOLFO on CKD -lactate not repeated but AG closed c/w resolution (6) PAF (paroxysmal atrial fibrillation): Status: Chronic Assessment and plan: -rate controlled at this time -continue home carvedilol and eliquis (7) Hypertension: Status: Chronic Assessment and plan: -holding losartan as well as home lasix and spironolactone due to RODOLFO as noted above -resuming ARB today Qualifiers: Hypertension type: primary hypertension Qualified Code(s): I10 - Essential (primary) hypertension (8) Type 2 diabetes mellitus: Status: Chronic Assessment and plan: -Continue Jardiance -On 10unit glargine and low dose SSI -GFR normalized, resume metformin given long wall mining machine helper benefit in DM with cirrhosis Qualifiers: Diabetes mellitus long wall mining machine helper insulin use: without [facility] use Diabetes mellitus complication status: with kidney complications Diabetes mellitus complication detail: with chronic kidney disease Chronic kidney disease stage: stage 2 (mild) Qualified Code(s): E11.22 - Type 2 diabetes mellitus with diabetic chronic kidney disease; N18.2 - Chronic kidney disease, stage 2 (mild) (9) ANETTE (obstructive sleep apnea): Status: Chronic Assessment and plan: -continue home CPAP (10) Chronic heart failure with reduced ejection fraction (HFrEF, <= 40%): Status: Acute Assessment and plan: -With reduced LVEF 25% 02/17 -currently without acute exacerbation -On outpatient medical therapy monitoring labs, was holding ARB and spironolactone, resumed losartan today. On empaglifozin. Subjective Subjective Interval history since last seen: Patient states that he is doing well today and is looking forward to going to SNF early next week. Exam Narrative Exam Narrative: chronically ill appearing older gentleman laying in bed in no acute distress, AOx4, no longer verbilizing visual hallucinations, and the patterson moving though he know that they are not real, heart RRR, lungs CTAB, abdomen mildly distended, soft, non-tender Objective Last Vital Signs Temp 98.2 F 07/03/24 08:05 Pulse 56 L 07/03/24 08:05 Resp 15 07/03/24 08:05 BP 152/81 H 07/03/24 08:05 Pulse Ox 93 07/03/24 08:05 Laboratory Results - last 24 hr 07/02/24 07/03/24 12:55 06:13 Sodium 136 Potassium 4.0 Chloride 103 Carbon Dioxide 24.3 Anion Gap 8.7 BUN 21 H Creatinine 1.0 Est GFR (CKD-EPI 2020) 77.52 Glucose 134 H Calcium 10.6 H Troponin I High Sens Cancelled Time Spent with Patient Time Spent with Patient: >50 minutes Time was spent: preparing to see the patient(eg.review tests), obtaining and/or reviewing separately otained hiistory, ordering medications,tests, procedures, referring, communicating with other health long term care social worker, indepentently interpreting results, counseling the patient and care coordination
[2024-07-03] MEDS: Insulin Aspart 300 UNITS/3 ML PEN SC ×2 (12:09→17:06)
[2024-07-03] MEDS: Rosuvastatin 20 MG TAB 40 MG PO (20:25)
[2024-07-03] MEDS: Melatonin 3 MG TAB PO (20:25)
[2024-07-04 02:59] VITALS: BP 146/59; PULSE 54; RESP 17; TEMP 36.2; O2SAT 92
[2024-07-04] MEDS: cefTRIAXone 1 GM/50 ML BAG IVPB (06:01)
[2024-07-04] MEDS: Levothyroxine 100 MCG TAB PO (06:01)
[2024-07-04 07:23] VITALS: BP 132/70; PULSE 61; RESP 15; TEMP 36.6; O2SAT 94
[2024-07-04] MEDS: Lactulose 20 GM/30 ML CUP PO ×4 (08:44→20:15)
[2024-07-04] MEDS: Apixaban 5 MG TAB PO ×2 (08:45→20:15)
[2024-07-04] MEDS: metFORMIN C.R. 500 MG TABCR PO (08:45)
[2024-07-04] MEDS: Ferrous Sulfate 325 MG TAB PO (08:45)
[2024-07-04] MEDS: Empaglifozin 25 MG TAB PO (08:45)
[2024-07-04] MEDS: Carvedilol 3.125 MG TAB PO ×2 (08:45→17:16)
[2024-07-04] MEDS: Rifaximin 550 MG TAB PO ×2 (08:45→20:15)
[2024-07-04] MEDS: Venlafaxine 150 MG CAPCR PO (08:46)
[2024-07-04] MEDS: Tamsulosin 0.4 MG CAPCR 0.8 MG PO (08:46)
[2024-07-04] MEDS: Normal Saline Flush 10 ML SYR IVP ×2 (08:46→20:15)
[2024-07-04] MEDS: Losartan 50 MG TAB PO (08:46)
[2024-07-04] MEDS: Insulin Glargine 300 UNITS/3 ML PEN 10 UNITS SC (08:48)
--- NOTE | 2024-07-04 09:28 | PTTR_ITS ---
PT Notes Visit Reasons: Hepatic Encephalopathy Date: 07/04/24 PRECAUTIONS: Fall. Standard. Activity as tolerated. Colostomy bag in place. SUBJECTIVE: Pt reports he slept better last night, feels good this morning. agreed to participate with therapy session. OBJECTIVE: ?Supine in bed. Colostomy bag in place.? PAIN: denies initially, right lumbar area after walking VITALS: Monitored by nursing Therapeutic Activities 74333: Direct one-on-one instruction in dynamic activities to improve functional performance. ?? BED MOBILITY/TRANSFERS? Rolling L/R: independent Supine-sit: ?independent? Sit-supine: ?independent ? Sit-stand: ? independent ? Stand-sit: ??independent ? Bed-Chair:? independent? Chair-bed: independent Provided skilled cues and instruction on performance and technique throughout. Gait Training 06878: Direct one-on-one instruction and skilled instruction in: Employing an assistive device Movement sequencing Turning and movement with proper form Provided verbal cues for equipment management and technique Provided instruction in gait pattern Patient education regarding pacing and breathing techniques to maximize activity tolerance? GAIT? Assistive Device: ?FWW ? Weight bearing: FWB Assist: ?Supervision ? Distance:?? 300'? Deviation: ?Minimal verbal cueing provided for walker management, directional change, and overall safety. No pain reported. No LOB. No shortness of breath ? STAIRS:? ?Step over step, bilateral handrail, tolerating 6x 2, 4 x3 ?arzola pervision, No pain reported. No LOB. No shortness of breath ? ASSESSMENT:?Pt reported feeling muscle soreness on his right lumbar paraspinals after walking, pain relief after seated rest break. PLAN: Continue with balance training, global strengthening and general conditioning for improved safety, mobility and activity tolerance until pt is ready for DC. TREATMENT CODE/TIME: 65953h3 15mins (9:15-9:30am)
[2024-07-04 11:13] VITALS: BP 138/62; PULSE 47; RESP 16; TEMP 36.9; O2SAT 93
[2024-07-04] MEDS: Insulin Aspart 300 UNITS/3 ML PEN SC ×2 (12:09→17:16)
--- NOTE | 2024-07-04 12:40 | W.PM.PROGNOT ---
Date of Service Date of service: 07/04/24 Time of Service: 10:30 Assessment and Plan Assessment and plan (1) Encephalopathy, hepatic: Status: Acute Assessment and plan: -Initial presentation to the ED with increased confusion at home with an elevated ammonia level with reported missing dose of lactulose. -Similar to previous hospitalization -Missing dosing of lactulose could be a precipitating factor in this current episode of encephalopathy. Patient reported taking his lactulose 3 times a day at home but reluctant to accept it from nursing as prescribed -Consideration given to mediction noncompliance versus UTI as a precipitating factor versus over-diuresis resulting in RODOLFO -In the setting of chronic cirrhosis without ascites and past TIPS procedure which can increase the risk for developing encephalopathy. -On lactulose QID and rifaximin -Improving mental status, no ascites, VSS -Palliative Care consult completed: Please read notes - non-compliance related to increase ostomy output w recommendations to plan to reduce dosing and not stop taking the lactulose -CM plan to discharge to rehab on Thursday 07/05 (2) Cirrhosis of liver without ascites: Status: Chronic Assessment and plan: - Past TIPS procedure which can increase the risk for developing encephalopathy -Minimal elevation AST overall stable liver function Qualifiers: Hepatic cirrhosis type: unspecified hepatic cirrhosis Qualified Code(s): K74.60 - Unspecified cirrhosis of liver (3) UTI (urinary tract infection): Status: Acute Assessment and plan: -UA on admnission with 10-20 WBCs, moderate bacteria and patient complaints of dysuria, fever 07/01 but not since - Serratia Marcescens in U C&S -Continue ceftriaxone, culture is sensitive-Day 4 -No symptoms concerning for SBP -Will transition to cefpodoxime to complete 7 days of Tx at d/c (4) Acute kidney injury superimposed on CKD: Status: Acute Assessment and plan: -Cr 1.0 on discharge 6 days ago, 1.8 on admission- improving -Most likely due to combination of UTI, encephalopathy, and perhaps overduiresis -Losartan initially held but resumed -In the setting of RODOLFO home lasix and spironolactone on hold. No S&S of fluid overload or retention- Consider discontinuation and PRN use of diuretics on d/c. -Daily weight (5) Lactic acidosis: Status: Acute Assessment and plan: -VGB lactate 5.1, w/o sepsis criteria -Most likely due to combination of hepatic encephalopathy, RODOLFO on CKD -lactate not repeated but AG initially 13.6 - closed with improved mentation (6) PAF (paroxysmal atrial fibrillation): Status: Chronic Assessment and plan: -Remains rate controlled at this time -On home carvedilol and eliquis (7) Hypertension: Status: Chronic Assessment and plan: -Losartan, Lasix and spironolactone from home medicine regimen initially held as per point 4 -Losartan reinitiated on 07/03/2024?continue Qualifiers: Hypertension type: primary hypertension Qualified Code(s): I10 - Essential (primary) hypertension (8) Type 2 diabetes mellitus: Status: Chronic Assessment and plan: -Continue home dose Jardiance -Continue 10units glargine SC and low dose SSI -GFR normalized, now on home dose metformin due to long-term benefit in diabetes mellitus w cirrhosis Qualifiers: Diabetes mellitus termite control service representative insulin use: without termite control service representative use Diabetes mellitus complication status: with kidney complications Diabetes mellitus complication detail: with chronic kidney disease Chronic kidney disease stage: stage 2 (mild) Qualified Code(s): E11.22 - Type 2 diabetes mellitus with diabetic chronic kidney disease; N18.2 - Chronic kidney disease, stage 2 (mild) (9) ANETTE (obstructive sleep apnea): Status: Chronic Assessment and plan: -On home CPAP (10) Chronic heart failure with reduced ejection fraction (HFrEF, <= 40%): Status: Acute Assessment and plan: -With reduced LVEF 25% 02/17?was on goal-directed medical therapy with Coreg, ARB, mineralocorticoid and on SGLT2 inhibitor -No acute exacerbation -ARB resumed, ongoing Jardiance considering resuming reduced dose of spironolactone at discharge or as per follow-up appointment with cardiology Discussed with Dr. Payne Subjective Subjective Patient reports: no new complaints, feels better, tolerating liquids well, tolerating a regular diet, voiding w/o difficulty, flatus and bowel movement; denies blood in stool, nausea, vomiting, shortness of breath or fever Exam Narrative Exam Narrative: Constitutional The patient is sitting in chair, without acute distress HENMT: Facial structures with normal appearance Neuro:alert and oriented to self, person, place, time and situation. No neurological focal deficit Resp: unlabored breathing, clear lung bilaterally Cardio: regular rhythm, S1, S2, bilateral radial and dorsalis pedis pulses are positive GI: Abdomen is not distended, soft and non tender, bowel sounds are present/ LLQ patent stoma w ostomy bag : Negative Costovertebral angle tenderness Extremities: strength 5/5 to bilateral lower and upper extremities Psych: RASS 0, congruent mood and normal affect. Objective Last Vital Signs Temp 36.9 C 07/04/24 11:13 Pulse 47 L 07/04/24 11:13 Resp 16 07/04/24 11:13 BP 138/62 07/04/24 11:13 Pulse Ox 93 07/04/24 11:13 Time Spent with Patient Time Spent with Patient: >50 minutes Time was spent: preparing to see the patient(eg.review tests), obtaining and/or reviewing separately otained hiistory, ordering medications,tests, procedures, referring, communicating with other health laboratory animal caretaker, indepentently interpreting results, counseling the patient and care coordination
[2024-07-04 15:35] VITALS: BP 140/53; PULSE 57; RESP 15; TEMP 37.3; O2SAT 92
--- NOTE | 2024-07-04 15:59 | NUR.NOTE ---
Nursing Note: Carried out a conversation w/ Merrill and asked several questions off the neuro assessment. I asked does a rock float? He thought for several seconds and then replied, Yes, they do. I asked are there fish in the sea? With a brief pause , he replied No. I asked can you hammer in a nail/ He thought and then said Yes. I asked can you hammer with a nail? And to that he replied Yes. I asked about pain and he stated I fell off a truck when the first tower fell. I asked 07/07? and he said Yes.
[2024-07-04 19:32] VITALS: BP 142/55; PULSE 57; RESP 15; TEMP 37.1; O2SAT 95
[2024-07-04] MEDS: Melatonin 3 MG TAB PO (20:15)
[2024-07-04] MEDS: Rosuvastatin 20 MG TAB 40 MG PO (20:15)
[2024-07-04 23:15] VITALS: BP 105/40; PULSE 63; RESP 15; TEMP 37.6; O2SAT 94
[2024-07-05 05:06] VITALS: BP 129/53; PULSE 60; RESP 15; TEMP 36.7; O2SAT 92
[2024-07-05] MEDS: Levothyroxine 100 MCG TAB PO (05:48)
[2024-07-05] MEDS: cefTRIAXone 1 GM/50 ML BAG IVPB (05:48)
[2024-07-05 06:25] LABS: ALT 42 U/L (16-63); AST 72 U/L (15-37); Albumin 2.6 g/dL (3.4-5.0); Alkaline Phosphatase 164 U/L (46-116); BUN 21 mg/dL (7-18); Bilirubin, Total 1.51 mg/dL (0.2-1.0); CREATININE 1.1 mg/dL (0.70-1.30); Calcium 10.4 mg/dL (8.5-10.1); Chloride 104 mmol/L (98-107); Estimated GFR 69.14 (mL/min/1.73m2); Glucose 114 mg/dL (74-106); Potassium 3.9 mmol/L (3.5-5.1); Sodium 136 mmol/L (136-145); Total Protein 6.1 g/dL (6.4-8.2)
[2024-07-05 07:43] VITALS: BP 132/60; PULSE 52; RESP 16; TEMP 36.9; O2SAT 92
[2024-07-05] MEDS: Normal Saline Flush 10 ML SYR IVP ×2 (08:30→08:33)
[2024-07-05] MEDS: Lactulose 20 GM/30 ML CUP PO ×2 (08:33→12:06)
[2024-07-05] MEDS: Empaglifozin 25 MG TAB PO (08:33)
[2024-07-05] MEDS: Apixaban 5 MG TAB PO (08:35)
[2024-07-05] MEDS: metFORMIN C.R. 500 MG TABCR PO (08:35)
[2024-07-05] MEDS: Ferrous Sulfate 325 MG TAB PO (08:36)
[2024-07-05] MEDS: Carvedilol 3.125 MG TAB PO (08:36)
[2024-07-05] MEDS: Venlafaxine 150 MG CAPCR PO (08:37)
[2024-07-05] MEDS: Rifaximin 550 MG TAB PO (08:37)
[2024-07-05] MEDS: Losartan 50 MG TAB PO (08:38)
[2024-07-05] MEDS: Tamsulosin 0.4 MG CAPCR 0.8 MG PO (08:39)
[2024-07-05] MEDS: Insulin Glargine 300 UNITS/3 ML PEN 10 UNITS SC (08:41)
--- NOTE | 2024-07-05 10:42 | PDOC.CMPRO ---
Date of service: 07/05/24 Time of Service: 10:42 Care Management Progress Note Discharge Potential Discharge Needs: PCP F/U Appt and Other (possible SNF) Anticipated Barriers to Discharge: Bed availability Patient/Family Education Needs: Review discharge instructions, discuss Ask Me Three Transportation: Other (to be determined by dsiposition) Plan: Anticipate Merrill will be transferred to a SNF for short term rehab vs returning home with home health. He has agreed to go to rehab but his is having second thoughts. CM will follow and continue to assess for discharge needs. SDOH(Care Management) Screening Will the Patient Participate in the Screening?: Unable to obtain Do you worry about having a steady place to live?: no Problems where you live: unsafe michelle/stairs In the past 12 months, have you had to go without electric, gas, oil or water in your home?: no Have you or anyone in your house had to go without enough food to eat?: no Has lack of transportation kept you from medical appointments or from doing things needed for daily living?: no Has anyone in your support network made you feel unsafe for any reason?: no Social Determinants of Health Comments(SDOH Details): Inability to ambulate and get around home. Struggles with ADLs. Health Related Social Needs Health related social needs: inadequate housing(Z59.1) Health related social needs details: Unable to get in and out of home, ambulate or perform ADLs.
--- NOTE | 2024-07-05 11:02 | PT.INTREAT ---
PT Notes Visit Reasons: Hepatic Encephalopathy Date: 07/05/24 PRECAUTIONS: Fall. Standard. Activity as tolerated. Colostomy bag in place. SUBJECTIVE: Pt reports he feels good this morning. agreed to participate with therapy session. OBJECTIVE: Seated at edge of bed colostomy bag in place.? PAIN: denies no reported lumbar pain during ambulation VITALS: Monitored by nursing Therapeutic Activities 22809: Direct one-on-one instruction in dynamic activities to improve functional performance. ?? BED MOBILITY/TRANSFERS? Rolling L/R: independent Supine-sit: ?independent? Sit-supine: ?independent ? Sit-stand: ? independent ? Stand-sit: ??independent ? Bed-Chair:? independent? Chair-bed: independent Functional mobility: FWW including item retrieval and transport reaching and standing position with supervision Provided skilled cues and instruction on performance and technique throughout. Turning and movement with proper form Provided verbal cues for equipment management and technique Patient education regarding pacing and breathing techniques to maximize activity tolerance? Assistive Device: ?FWW ? Weight bearing: FWB Assist: ?Supervision ? Distance:?? 300'? Deviation: ?intermittent cue for keeping walker closer to body No pain reported. No LOB. No shortness of breath ? STAIRS:? ?Step over step, bilateral handrail, tolerating 6x 2, 4 x3 / 2 trials ?supervision, No pain reported. No LOB. No shortness of breath ? ASSESSMENT:?Patient denied lumbar pain or tightness during session. Patient able to perform stairs for strengthening despite having ramp to enter home and chairlift to second-floor. PLAN: Continue with balance training, global strengthening and general conditioning for improved safety, mobility and activity tolerance until pt is ready for DC. TREATMENT CODE/TIME: 54932v2 26mins ([id number])
[2024-07-05 11:22] VITALS: BP 118/43; PULSE 78; RESP 16; TEMP 36.4; O2SAT 92
--- NOTE | 2024-07-05 11:38 | CMDISCH_ITS ---
Date of service: 07/05/24 Time of Service: 11:38 LACE Index Scoring Tool Questions: Length of Stay (in days): 4 - 6 Was the patient admitted via the E.D.?: Yes Comorbidities: Previous M.I., Diabetes w/o Complication, Congestive Heart Failure and Liver or Renal Disease E.D. Visits: 8 Answers: Total Score: 16 Risk of Readmission: High Risk Care Management Discharge Plan Reason for Hospitalization: hepatic encephalopathy Discharge Plan: Merrill will be discharged home with home health nursing and PT. He will [facility] with [facility] providers and plan of care and transport with his . Patient/Family Education Needs: Review of discharge instructions, limitations, medication compliance, follow up plan and discuss Ask Me Three Services Needed at Discharge: Home Health Care Services SDOH Health Related Social Needs: Health related social needs details Unable to get in a nd out of home, ambulate or perform ADLs. Health related social needs: inadequate housing(Z59.1) Health related social needs details: Unable to get in and out of home, ambulate or perform ADLs.
[2024-07-05] MEDS: Insulin Aspart 300 UNITS/3 ML PEN SC (12:06)
--- NOTE | 2024-07-05 12:48 | DSE_ITS ---
Date of service: 07/05/24 Time of Service: 13:33 DS: Diagnosis Discharge Diagnosis (1) Encephalopathy, hepatic: Status: Acute (2) Cirrhosis of liver without ascites: Status: Chronic (3) UTI (urinary tract infection): Status: Acute (4) Acute kidney injury superimposed on CKD: Status: Acute (5) Lactic acidosis: Status: Acute (6) PAF (paroxysmal atrial fibrillation): Status: Chronic (7) Hypertension: Status: Chronic (8) Type 2 diabetes mellitus: Status: Chronic (9) ANETTE (obstructive sleep apnea): Status: Chronic (10) Chronic heart failure with reduced ejection fraction (HFrEF, <= 40%): Status: Acute Discharge Plan Disposition Patient Disposition: Home W/Home Health Services Condition: Improving Discharge Details Reason For Visit: Hepatic Encephalopathy Admit Date/Time: 06/30/24 07:25 Admit Provider: Jimenez Payne Attending Provider: Jimenez Payne Primary Care Provider: Maryann Whitt Hospital Course Hospital Course: This 79-year-old male patient with a past medical history of atrial fibrillation on Eliquis and Coreg, HFrEF with an LVEF of 24% on 02/14/2024, insulin-dependent diabetes mellitus, obstructive sleep apnea, coronary artery disease, chronic kidney disease, cirrhosis with recurrent episode of hepatic encephalopathy and most recently ending hospitalized here at [facility] from 06/23/2024 to 06/25/2024 with hepatic encephalopathy presented again with weakness, unsteady gait and hallucination to the ED at [facility] on 06/30/2024 via EMS. The patient and his spouse stated as reported by ED provider that lactulose doses have been missed over the last days prior to presentation. The patient however stated clearly that he had been taking all his medicine and taking lactulose 3 times a day as prescribed. Patient prompted to call EMS as symptoms of generalized weakness, ambulatory dysfunction and visual changes occurred; symptoms were similar to past presentation. The patient mentioned regurgitating belching without vomiting; denied fevers, chills or rash, mentioned urinary urgency and dysuria. On presentation to the ED, the patient had normal vital signs and normal physical exam except for weakness and report of visual hallucination such as patterson that were moving. Significant labs in the ED showed anion gap of 13.6, lactate of of 5.1, creatinine of 1.8 with baseline around 1, ammonia of 81. The hospitalist was consulted and the patient was admitted for evaluation and management of encephalopathy, RODOLFO on CKD, anion gap metabolic acidosis due to elevated lactate. During the stay the patient was started on lactulose and rifaximin with improvement of his mental status. In the setting of RODOLFO superimposed on CKD, ARB's, spironolactone and furosemide were held. With improved creatinine level, losartan was resumed as per home med regimen. A positive UTI as per UA was treated with ceftriaxone; culture showed Serratia marcescens sensitive to ceftriaxone and the patient will be discharged on oral cefpodoxime to complete a 7-day total course of treatment. Other chronic conditions were managed as per home medicine regimen. The patient will be discharged on lactulose and rifaximin with the goal to get at least 3 stools per day or 3 ostomy bag changes per day as per palliative care recommendation to promote compliance. The patient will need to follow-up with the primary care provider within 7 days of discharge. A referral to cardiology was made for adjustment of guideline directed medical therapy for HFrEF as the patient was discharged with decreased doses of spironolactone. Furosemide dosing was also reduced with PRN dosing added for weight gain. Patient advised to continue measuring his weight daily and to call PCP if iincreased edema was noticed. The patient will be discharged home with home health physical therapy as per inpatient physical therapy recommendation. The patient will require home health nursing for compliance with medicines and monitoring of worsening of his conditions. Nutrition consult completed with recommendations for GLP-1 RA to improve control of A1C as well as outpatient diabetes education with sons/caregivers present as per PCP. Discussed with Dr. Burton Home Meds and New Rx's Prescriptions: New melatonin 3 mg Tablet 3 mg PO HS Qty: 30 0RF cefpodoxime 200 mg tablet 200 mg PO Q12H Qty: 3 0RF Rx Instructions: must administer with a meal/food furosemide 20 mg tablet 20 mg PO Q OTHER DAY Qty: 15 0RF furosemide 20 mg tablet 10 mg PO DAILY PRNQty: 7 0RF Rx Instructions: Take for increased weight of 2 pounds for 2 consecutive days or 3 pounds in 5 days. Weight yourself daily and keep a log Continued pantoprazole 40 mg Tablet,Delayed Release (Dr/Ec) 40 mg PO DAILY PRN pregabalin 50 mg Capsule 50 mg PO BID Eliquis 5 mg Tablet 5 mg PO BID nitroglycerin 0.4 mg Tablet, Sublingual 0.4 mg sublingual Q5 MIN PRN X3 PRNQty: 30 0RF miconazole nitrate 2 % Powder 1 applic TOPICAL BID PRN rifaximin 550 mg Tablet 550 mg PO BID ferrous sulfate 325 mg (65 mg iron) Tablet 325 mg PO DAILY empagliflozin 25 mg Tablet 25 mg PO DAILY levothyroxine 200 mcg Tablet 100 mcg PO QAM Qty: 0 0RF cholecalciferol (vitamin D3) 25 mcg (1,000 unit) capsule 25 mcg PO DAILY diclofenac sodium [Arthritis Pain (diclofenac)] 1 % gel 2 g topical QID PRN Rx Instructions: apply to single elbow, wrist or hand; for hand includes palm/fingers/back of hand losartan 50 mg tablet 50 mg PO DAILY venlafaxine 150 mg capsule,extended release 24hr 150 mg PO DAILY rosuvastatin [Crestor] 20 mg Tablet 40 mg PO QPM Qty: 0 0RF carvedilol phosphate 10 mg capsule, ER multiphase 24 hr 10 mg PO QHS Rx Instructions: must administer with a meal/food clobetasol 0.05 % cream 1 applic topical DAILY acetaminophen [Tylenol] 325 mg Capsule 975 mg PO Q8H MDD 3000 PRN metformin 500 mg tablet extended release 24hr 500 mg PO DAILY Qty: 30 0RF simethicone 80 mg tablet,chewable 80 mg PO BID-QID PRNQty: 90 0RF insulin glargine [Lantus Solostar U-100 Insulin] 100 unit/mL (3 mL) insulin pen 10 unit subcut QAM Qty: 15 0RF tamsulosin 0.4 mg Capsule 0.8 mg PO DAILY Qty: 180 0RF Changed spironolactone 25 mg Tablet 12.5 mg PO DAILY Qty: 30 0RF lactulose 20 gram/30 mL Solution 20 g PO TID Qty: 1800 11RF Rx Instructions: to maintain colostomy output of 3-4 bags per day Discontinued furosemide [Lasix] 20 mg tablet 20 mg PO QAM furosemide 20 mg tablet 20 mg PO DAILY PRN (Reason: weight gain) Rx Instructions: In Addition to scheduled dose Discharge Instructions Stand Alone Forms: Nursing Discharge Form Referrals: Alice Hsieh MD [ [facility] STAFF PHYSICIAN] - 08/03/24 2:00 pm (Admitted for hepatic encephalopathy, RODOLFO on CKD,? overdiuresis, GDMT for HFrEF with LVEF 24% modified with lower dose of diuretics.) Maryann Whitt [Primary Care Provider] - (Please call to schedule a hospital discharge follow up appt, to be seen within 7 days of discharge please. ) Activity:: Activity as Tolerated Equipment/Supplies:: Walker Diet:: diabetic heart healthy DS: Summary Time Spent with Patient providing and/or coordinating discharge services: Greater than 30 minutes Status at Discharge Functional status at discharge: uses cane/walker Overall status at discharge: patient is progressing back to baseline Mental Status: mental status grossly normal Speech and Movement: speech and movement normal Mood: congruent mood Affect: normal affect Quality:SDOH Health Related Social Needs: Health related social needs inadequate housing Health related social needs details Unable to get in a nd out of home, ambulate or perform ADLs. Health related social needs details: Unable to get in and out of home, ambulate or perform ADLs. Exam Narrative Exam Narrative: Constitutional The patient is without acute distress HENMT: Facial structures with normal appearance Neuro:alert and oriented to self, person, place, time and situation. No neurological focal deficit Resp: unlabored breathing, clear lung bilaterally Cardio: regular rhythm, S1, S2, bilateral radial and dorsalis pedis pulses are positive GI: Abdomen is not distended, soft and non tender, bowel sounds are present/ LLQ patent stoma w ostomy bag : Negative Costovertebral angle tenderness Psych: RASS 0, congruent mood and normal affect. Psych Mental Status: mental status grossly normal Speech and Movement: speech and movement normal Mood: congruent mood Affect: normal affect DS: Data Vitals/I&O Vitals and I&O: Vital Signs Temperature 36.4 C L 07/05/24 11:22 Temperature Source Skin 07/05/24 11:22 Pulse 78 07/05/24 11:22 Pulse Rhythm Irregular 06/30/24 08:50 Pulse 78 06/30/24 08:20 Respiratory Rate 16 07/05/24 11:22 Respiratory Effort Normal 06/30/24 08:50 Respiratory Depth Normal 06/30/24 08:50 Respiratory Pattern Normal 06/30/24 08:50 Blood Pressure 118/43 L 07/05/24 11:22 Blood Pressure Mean 78 06/30/24 08:02 Blood Pressure Position Supine 06/30/24 04:26 Pulse Oximetry 92 07/05/24 11:22 Oxygen Delivery Method Room Air 07/05/24 11:22 Oxygen Flow Rate 0 07/05/24 11:22 Pain Level 0 07/05/24 11:22 Comment RN Notified 07/05/24 05:06 Intake & Output 07/04/24 07/05/24 07/05/24 23:59 11:59 23:59 Intake Total 200 / 610 80 / 80 Output Total 1410 / 1710 1325 / 1325 Balance -1210 / -1100 -1245 / -1245 Weight 103.2 kg Intake: IV 80 / 80 Oral 200 / 600 Output: Urine 1150 / 1450 1125 / 1125 Stool 260 / 260 200 / 200 Other: Urine Color Straw Yellow Urine Appearance Clear Clear Urine Odor Normal Normal Voiding Methods Urinal Urinal Data Completed and Pending Labs on day of discharge: Labs from last 24 hours 07/05/24 05:56 Sodium 136 Potassium 3.9 Chloride 104 Carbon Dioxide 24.0 Anion Gap 8.0 BUN 21 H Creatinine 1.1 Est GFR (CKD-EPI 2020) 69.14 Glucose 114 H Calcium 10.4 H Total Bilirubin 1.51 H AST 72 H ALT 42 Alkaline Phosphatase 164 H Total Protein 6.1 L Albumin 2.6 L PFSH All Active Problems (Updated 07/03/24 @ 10:10 by Jimenez Payne MD) Chronic heart failure with reduced ejection fraction (HFrEF, <= 40%) (Acute) Palliative care encounter (Acute) [facility] by [facility] Goals of care, counseling/discussion (Acute) Lactic acidosis (Acute) Acute kidney injury superimposed on CKD (Acute) UTI (urinary tract infection) (Acute) Anemia (Chronic) Urinary tract infection (Acute) Thrombocytopenia (Chronic) Encephalopathy, hepatic (Acute) Colostomy care (Acute) Chronic low back pain (Chronic) Advanced care planning/counseling discussion (Acute) Hematuria (Acute) Cirrhosis of liver without ascites (Chronic) Elevated troponin level not due myocardial infarction (Acute) Diabetes (Chronic) Leukopenia (Acute) Oral candidiasis (Acute) Sepsis syndrome (Acute) PAF (paroxysmal atrial fibrillation) (Chronic) Gram-negative bacteremia (Acute) Cellulitis (Acute) Lower urinary obstructive symptom (Acute) Encephalopathy, hepatic (Acute) Anemia of chronic disease (Acute) Thrombocytopenia (Chronic) Ventricular ectopy (Acute) Sinus bradycardia (Acute) Leukocytosis (Acute) Hypertension (Chronic) Elevated lactic acid level (Acute) CHF (congestive heart failure) (Chronic) No-show for appointment (Acute) Left rotator cuff tear (Acute) Acute UTI (urinary tract infection) (Acute) Weakness (Acute) Non-ST elevation UT (NSTEMI) (Acute) Pre-syncope (Acute) Frequent falls (Acute) Orthostatic hypotension (Acute) Chronic atrial fibrillation (Chronic) Type 2 diabetes mellitus (Chronic) Hypokalemia (Acute) Bradycardia (Acute) Multiple falls (Acute) Acute metabolic encephalopathy (Acute) Medication monitoring encounter (Acute) ANETTE (obstructive sleep apnea) (Chronic) Chest pain (Acute) CHF exacerbation (Acute) CHF (congestive heart failure) (Chronic) EF 25%- 2023 Medical History (Updated 07/03/24 @ 10:10 by Jimenez Payne MD) Bowel obstruction Sepsis Heart failure with reduced ejection fraction Hypothyroidism Small bowel obstruction Lactic acid acidosis Creatinine elevation Acute UTI Anticoagulated COVID Recurrent intestinal obstruction History of colon cancer Chronic anticoagulation Portal hypertension Cirrhosis TIPs placed ([place] [facility] 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, Dx [facility] as per pt Non-insulin dependent type 2 diabetes mellitus Incontinence Hypertension Scleral icterus Surgical History S/P TIPS (transjugular intrahepatic portosystemic shunt) H/O left hemicolectomy Colostomy in place Social History Smoking/Tobacco Use Status: Former Tobacco Use Smoking risk assessment performed?: Yes Alcohol Intake: former Drug use: Never Substance use type: does not use Housing: house Do you feel safe at home: Yes Do you feel safe in your relationship?: Yes Additional Social history: Lives with , son, and sick [id number] in [place], moved up from [place] in 2019. [place] . Time Spent with Patient Time Spent with Patient: 70-84 minutes4 Time was spent: preparing to see the patient(eg.review tests), obtaining and/or reviewing separately otained hiistory, ordering medications,tests, procedures, referring, communicating with other health career center advisor, indepentently interpreting results, counseling the patient and care coordination
--- NOTE | 2024-07-05 13:40 | PDOC.HHF2F_ITS ---
Home Health Referral Home Health Orders Clinical synopsis of why skilled professionals are needed: This 79-year-old male patient with a past medical history of atrial fibrillation on Eliquis and Coreg, HFrEF with an LVEF of 24% on 02/14/2024, insulin-dependent diabetes mellitus, obstructive sleep apnea, coronary artery disease, chronic kidney disease, cirrhosis with recurrent episode of hepatic encephalopathy and most recently ending hospitalized here at [facility] from 06/23/2024 to 06/25/2024 with hepatic encephalopathy presented again with weakness, unsteady gait and hallucination to the ED at [facility] on 06/30/2024 via EMS. The patient and his spouse stated as reported by ED provider that lactulose dos es have been missed over the last days prior to presentation. The patient however stated clearly that he had been taking all his medicine and taking lactulose 3 times a day as prescribed. Patient prompted to call EMS as symptoms of generalized weakness, ambulatory dysfunction and visual changes occurred; symptoms were similar to past presentation. The patient mentioned regurgitating belching without vomiting; denied fevers, chills or rash, mentioned urinary urgency and dysuria. On presentation to the ED, the patient had normal vital signs and normal physical exam except for weakness and report of visual hallucination such as patterson that were moving. Significant labs in the ED showed anion gap of 13.6, lactate of of 5.1, creatinine of 1.8 with baseline around 1, ammonia of 81. The hospitalist was consulted and the patient was admitted for evaluation and management of encephalopathy, RODOLFO on CKD, anion gap metabolic acidosis due to elevated lactate. During the stay the patient was started on lactulose and rifaximin with improvement of his mental status. In the setting of RODOLFO superimposed on CKD, ARB's, spironolactone and furosemide were held. With improved creatinine level, losartan was resumed as per home med regimen. A positive UTI as per UA was treated with ceftriaxone; culture showed Serratia marcescens sensitive to ceftriaxone and the patient will be discharged on oral cefpodoxime to complete a 7-day total course of treatment. Other chronic conditions were managed as per home medicine regimen. The patient will be discharged on lactulose and rifaximin with the goal to get at least 3 stools per day or 3 ostomy bag changes per day as per palliative care recommendation to promote compliance. The patient will need to follow-up with the primary care provider within 7 days of discharge. A referral to cardiology was made for adjustment of guideline directed medical therapy for HFrEF as the patient was discharged with decreased doses of spironolactone. Furosemide dosing was also reduced with PRN dosing added for weight gain. Patient advised to continue measuring his weight daily and to call PCP if increased edema was noticed. The patient will be discharged home with home health physical therapy as per inpatient physical therapy recommendation. The patient will require home health nursing for compliance with medicines and monitoring of worsening of his conditions. The patient will also benefit from a hospitalist medical director for coordination of care. Discussed with Dr. Burton Medical diagnosis necessitation home health referral: CHF: A referral to cardiology was made for adjustment of guideline directed medical therapy for HFrEF as the patient was discharged with decreased doses of spironolactone. Furosemide dosing was also reduced with PRN dosing added for weight gain. Patient advised to continue measuring his weight daily and to call PCP if increased edema was noticed. Weakness: The patient will be discharged home with home health physical therapy as per inpatient physical therapy recommendation. A positive UTI : the patient will be discharged on oral cefpodoxime to complete a 7-day total course of treatment. Hepatic encephalopathy: The patient will be discharged on lactulose and rifaximin with the goal to get at least 3 stools per day or 3 ostomy bag changes per day as per palliative care recommendation to promote compliance. The patient will require home health nursing for compliance with medicines and monitoring of worsening of his conditions. The patient will also benefit from a hospitalist medical director for coordination of care. Registered Nurse: Check all that apply Instruct on new or changed medication(s)/assess compliance: Ordered Instruct on ostomy care: Ordered (monitor for decreased or no output ) Assess for exacerbation of medical condition, instruct patient/caregivers on signs and symptoms to report for early detection: Ordered Other: Lantus injection teaching. Patient has to take his laxatives daily, lactulose as ordered, CHF exacerbation , weight gain and additional Furosemide PRN Physical Therapist: Check all that apply Increase strength & endurance for safe mobility at home: Ordered To design/establish home maintenance program: Ordered Fall reduction therapy program for patient with history of frequent falls: Ordered Home safety evaluation and teaching/gait training including stair management (if applicable): Ordered Slide Fastener Repairer: Assist with community resources: Ordered Assist with care home care planning: Ordered Home Bound Status Requires the aid of supportive device (check all that apply): Walker Patient has a condition such that leaving home is medically contraindicated (Describe): can't walk/cardiac EF 25% on 01/2024 Describe why leaving home would require a considerable and taxing effort: Requires frequent rest periods Encounter Date and Reason: I certify that a FTF encounter for this patient was performed on July 05, 2024 and that such encounter was related to the primary reason the patient requires home health services. The encounter was conducted in the following manner: * By me as the certifying physician, WAREHOUSE AND RECEIVING SUPERVISOR, PA or * By an inpatient physician, WAREHOUSE AND RECEIVING SUPERVISOR or PA during an inpatient stay who communicated findings to me, Certification And Authentication I certify that I composed the above information based on my clinical judgment relating to this patient's medical condition and, if applicable, clinical findings communicated to me by the NPP or inpatient physician who performed the FTF encounter. Name of Provider that will be monitoring home health services: Maryann Whitt
== END 2024-07-05 15:15 | disposition home health service (06) | DRG 442 ==
LOC: ER 07:20 → MS 08:41
PROVIDERS: Family Medicine; Nurse Practitioner Acute Care; Admitting Provider Family Medicine; Emergency Provider Student in an Organized Health Care Education/Training Program; PCP Nurse Practitioner Adult Health; Visit Provider Family Medicine
DX: K76.82 Hepatic encephalopathy (principal); E87.20 Acidosis, unspecified; N39.0 Urinary tract infection, site not specified; N17.9 Acute kidney failure, unspecified; I13.0 Hypertensive heart and chronic kidney disease with heart failure and stage 1 through stage 4 chronic kidney disease, or unspecified chronic kidney disease; I50.22 Chronic systolic (congestive) heart failure; K74.60 Unspecified cirrhosis of liver; N18.2 Chronic kidney disease, stage 2 (mild); I48.0 Paroxysmal atrial fibrillation; E11.22 Type 2 diabetes mellitus with diabetic chronic kidney disease; G47.33 Obstructive sleep apnea (adult) (pediatric); I25.10 Atherosclerotic heart disease of native coronary artery without angina pectoris; D64.9 Anemia, unspecified; D69.6 Thrombocytopenia, unspecified; G89.29 Other chronic pain; M54.50 Low back pain, unspecified; I25.2 Old myocardial infarction; R29.6 Repeated falls; R44.1 Visual hallucinations; B96.89 Other specified bacterial agents as the cause of diseases classified elsewhere; Z93.3 Colostomy status; Z79.01 Long term (current) use of anticoagulants; Z85.038 Personal history of other malignant neoplasm of large intestine
CPT/HCPCS: 00123; 36415; 80048; 80053; 83690; 85027; 87077; 93005; 96374; 97162; 97530; 99285; 76705; 81003; 81015; 82140; 83605; 83735; 83880; 84484; 85025; 85610; 85730; 87086; 87186; 93010; 99223; 99232; 99233; 99239; J0696; J1815

== ENCOUNTER 2024-07-28 18:28 | Emergency (ER) | payer OTHER, SELFPAY ==
[2024-07-28] VITALS (17 sets, daily range): BP systolic 170–201; BP diastolic 52–75; PULSE 58–97; RESP 9–22; TEMP 36.4; O2SAT 91–96
--- NOTE | 2024-07-28 18:30 | DI.CT_ITS ---
Exam(s) CT HEAD CERVICAL SPINE WO EXAM: CT HEAD CERVICAL SPINE WO CLINICAL HISTORY: Fall on anticoagulation. TECHNIQUE: Imaging Protocol: Axial computed tomography images with coronal and sagittal reformatted images were created and reviewed COMPARISON: CT CT HEAD WO from 06/22/2024 FINDINGS: Head CT Ventricles and Extra axial spaces: Normal in size and morphology for the patient's age. Hemorrhage: None. Cerebral parenchyma: No evidence of mass or acute infarct. Mild atrophy. Midline shift: None. Brainstem/Cerebellum: Normal. Calvarium: Normal. Visualized Paranasal sinuses/Mastoids: Prior sinus surgery. Mild mucosal thickening. Some mucous re tention within the left frontal sinus. Significant mucous retention in the maxillary sinuses. The Soft tissues: Unremarkable. Cervical Spine CT BONES: Vertebral body heights are maintained. Alignment is normal. There is no evidence of acute frac ture. Degenerative disc changes and facet degenerative changes are seen . SOFT TISSUES: No paraspinal hematoma. The airway appears intact. No pneumothorax is seen at the lung apices. IMPRESSION: Head CT: No acute abnormality. C-spine CT: Degenerative changes, no acute abnormality. RADIATION DOSE DELIVERED: 1,326.23mGy.cm Total DLP DATA REPOSITORY: All CT scans at this facility are submitted to the National Radiology Data Registry (NRDR) Dose Index Registry (DIR) with the [employer] (A[employer]). RADIATION OPTIMIZATION: All CT scans at this facility use at least one of these dose optimization te chniques: automated exposure control; mA and/or kV adjustment per patient size (includes targeted exa ms where dose is matched to clinical indication); or iterative reconstruction.
--- NOTE | 2024-07-28 18:30 | DI.CT_ITS ---
Exam(s) CT CHEST/ABD/PEL W EXAM: CT CHEST/ABD/PEL W CLINICAL HISTORY: Fall, L. chest/abd pain, L. hip pain, epigastric p. TECHNIQUE: Imaging Protocol: Axial computed tomography images with coronal and sagittal reformatted images were created and reviewed CONTRAST MATERIAL: Intravenous: Omnipaque 350 Contrast volume:100 ml Oral: yes / no COMPARISON: CT CT CHEST/ABD/PEL W from 11/03/[address] ABDOMEN PELVIS W from 05/11/2024 FINDINGS: CHEST: Tracheobronchial tree: Patent. Pulmonary parenchyma: No consolidation or dominant measurable mass. Pleura: No effusion or pneumothorax. Mediastinum: Small precarinal lymph node, unchanged. Aorta: Thoracic portion non-dilated. Mild atherosclerotic changes. Pulmonary arteries: No visible emboli. Heart: Moderately enlarged. Mitral annular calcification. No pericardial effusion. Bones: No lytic or blastic lesions.No acute compression fractures. Stable mild compression fracture s in the mid thoracic spine. Degenerative changes. Soft tissues: Mild bilateral gynecomastia. ABDOMEN and PELVIS: Liver: Cirrhotic appearing liver. Tips in place.. No suspicious measurable mass. Stable small cyst. Gallbladder and biliary tract: Contracted. Mild amount of surrounding fluid likely secondary to cirrh osis. No evidence of stones or wall thickening. No biliary dilatation. Pancreas: Normal density, no abnormal calcifications or inflammatory process. Spleen: Enlarged. Kidneys: Normal size, contour and axis. No radiodense stones. No obstructive uropathy. No suspicious masses seen. Adrenal glands: No masses seen. Aorta: Abdominal portion non-dilated. Lymph nodes: Within normal limits. Soft tissues: Left-sided colostomy is unremarkable. Bladder: Unremarkable. Bowel: Anastomosis noted mid small bowel. Ileocolic anastomosis. Resection of the rectosigmoid. No ob struction or bowel wall thickening. Peritoneal cavity: No ascites. No focal collection. No mesenteric inflammatory response. No free ai r. Bones: Prostate mildly enlarged. Reproductive organs: Within normal limits. IMPRESSION: No acute posttraumatic abnormality in the chest, abdomen or pelvis. Chronic findings as mentioned above. RADIATION DOSE DELIVERED: 618.21mGy.cm Total DLP DATA REPOSITORY: All CT scans at this facility are submitted to the National Radiology Data Registry (NRDR) Dose Index Registry (DIR) with the [employer] (ACR). RADIATION OPTIMIZATION: All CT scans at this facility use at least one of these dose optimization te chniques: automated exposure control; mA and/or kV adjustment per patient size (includes targeted exa ms where dose is matched to clinical indication); or iterative reconstruction.
--- NOTE | 2024-07-28 18:30 | RT.EKG_ITS ---
APPROVED REPORT Exam: Resting ECG Reason for Exam: chest pain Patient Location: E HR:68 bpm ECG Measurements Heart Rate 68 AXIS ID 287 P 28 QRSd 117 QRS 34 QT 467 T 95 QTc 498 Conclusion Sinus rhythm, rate 68 1st degree HB< ID interval 287 ms IVCD with LBBB morphology, QRS 117ms No STEMI, sgarbosa negative
[2024-07-28] MEDS: Aspirin 81 MG CHEW (19:09)
[2024-07-28 19:19] LABS: Abs Immature Grans 0.01 10^3/uL (0.0-0.06); Absolute Basophil Count 0.02 10^3/uL (0.0-0.2); Absolute Eosinophil Count 0.24 10^3/uL (0.0-0.7); Absolute Lymphocyte Count 0.46 10^3/uL (1.2-3.4); Absolute Neutrophil Count 2.36 10^3/uL (1.2-6.7); Basophils % 0.6 %; Eosinophils % 7.1 %; HCT 31.5 % (40.0-50.0); HGB 10.4 g/dL (13.5-17.5); Immature Grans % 0.3 %; Lymphocytes % 13.6 %; MCH 30.1 pg (27.0-33.0); MCV 91 fL (80-95); MPV 10.8 fL (8.0-11.0); Monocytes % 8.8 %; Neutrophils % 69.6 %; RBC 3.45 10^6/uL (4.36-5.78); RDW 16.5 % (11.8-14.1); RDW-SD 54.3 fL; WBC 3.39 10^3/uL (4.4-10.8)
[2024-07-28 19:27] LABS: INR 1.2 (0.9-1.1); Prothrombin Time 11.7 sec (9.1-11.1)
[2024-07-28 19:35] LABS: Platelet Count 59 10^3/uL (130-400)
[2024-07-28 19:37] LABS: ALT 23 U/L (16-63); AST 36 U/L (15-37); Albumin 2.8 g/dL (3.4-5.0); Alkaline Phosphatase 128 U/L (46-116); Anion Gap 11.3 mmol/L (3-11); BUN 12 mg/dL (7-18); Bilirubin, Total 1.31 mg/dL (0.2-1.0); CO2 22.7 mmol/L (21.0-32.0); CREATININE 1.4 mg/dL (0.70-1.30); Calcium 9.2 mg/dL (8.5-10.1); Chloride 106 mmol/L (98-107); Estimated GFR 51.77 (mL/min/1.73m2); Glucose 181 mg/dL (74-106); Lipase 82 U/L (16-77); Magnesium 1.8 mg/dL (1.8-2.4); Potassium 3.2 mmol/L (3.5-5.1); Sodium 140 mmol/L (136-145); Total Protein 6.1 g/dL (6.4-8.2); Troponin I 44 ng/L (<or=76)
[2024-07-28] MEDS: Potassium Chloride 20 MEQ TABCR 40 MEQ PO (20:00)
[2024-07-28] MEDS: Normal Saline - Diluent 50 ML VIAL IJ (20:01)
[2024-07-28] MEDS: Omnipaque 350 MG/ML 100 ML BTL IJ (20:02)
--- NOTE | 2024-07-28 20:19 | DI.VRAD_ITS ---
PROCEDURE INFORMATION: Exam: CT Head Without Contrast Exam date and time: 07/28/2024 19:57 Age: 79 years old Clinical indication: Injury or trauma; Blunt trauma (contusions or hematomas); Consciousness not specified; Injury details: Fall on anticoagulation TECHNIQUE: Imaging protocol: Computed tomography of the head without contrast. COMPARISON: CT HEAD WO 06/22/2024 19:09 FINDINGS: Brain: Moderate cerebral atrophy. Mild periventricular white matter hypodensity. No edema or hemorrhage. Cerebral ventricles: No ventriculomegaly. Paranasal sinuses: Moderate mucosal thickening in paranasal sinuses, partial the section of ethmoid air cells and nasal septum, bilateral maxillary antrectomies, no air-fluid levels. Mastoid air cells: No mastoid effusion. Bones: The calvarium is intact. Soft tissues: No suspicious lesions. IMPRESSION: 1. No acute intracranial findings. Atrophy and chronic small vessel ischemic changes. 2. Sinus disease. PROCEDURE INFORMATION: Exam: CT Cervical Spine Without Contrast Exam date and time: 07/28/2024 19:57 Age: 79 years old Clinical indication: Injury or trauma; Blunt trauma (contusions or hematomas); Consciousness not specified; Injury details: Fall on anticoagulation TECHNIQUE: Imaging protocol: Computed tomography of the cervical spine without contrast. COMPARISON: CT HEAD CERVICAL SPINE WO 11/03/2023 22:52 FINDINGS: Bones: No acute fracture or subluxation. Straightening of the normal cervical lordosis. Uncovertebral hypertrophy. Multilevel disc space narrowing. Posterior disc osteophyte complexes, small multilevel most pronounced at C5-C6 where there is likely at least [id number] central canal stenosis and mild bilateral neural foraminal stenosis. Lungs: No consolidation. Soft tissues: No suspicious lesions. IMPRESSION: No cervical spine fracture. Degenerative changes. Dictated and Authenticated by: Selam Gusman MD. Ordering:SAMANTHA Real MD
--- NOTE | 2024-07-28 20:47 | DI.VRAD_ITS ---
PROCEDURE INFORMATION: Exam: CT Chest With Contrast; Diagnostic Exam date and time: 07/28/2024 8:07 PM Age: 79 years old Clinical indication: Pain and injury or trauma; Abdominal pain and other: L. Chest/abd pain, L. Hip pain, epigastric pain; Blunt trauma (contusions or hematomas); Left-sided; Injury details: Fall, L. Chest/abd pain, L. Hip pain, epigastric pain; Additional info: Fall on anticoagulation, L. Chest/abd pain, L. Hip pain, epigastric pain TECHNIQUE: Imaging protocol: Diagnostic computed tomography of the chest with contrast. 3D rendering (Not supervised by radiologist): MIP and/or 3D reconstructed images were created by the technologist. Contrast material: OMNI 350; Contrast volume: 100 ml; Contrast route: INTRAVENOUS (IV); COMPARISON: CT CHEST/ABD/PEL W 11/03/2023 11:00 PM FINDINGS: Thyroid: The visualized thyroid gland is unremarkable. Lungs: No acute tracheobronchial abnormalities. No pulmonary infiltrates or edema pattern. No pulmonary mass lesions are identified. Pleural spaces: No pleural effusions. No pneumothorax. Heart: Mild cardiomegaly. Coronary arteries: Mild-moderate coronary artery calcification. Esophagus: The esophagus is largely contracted without gross abnormality. Lymph nodes: No supraclavicular or axillary adenopathy. Mildly enlarged pretracheal retrocaval node, nonspecific. Vasculature: Mild aortic ectasia/tortuosity and calcific atherosclerosis. Mild aortic valve calcification. No mediastinal hematoma. Question mild dilatation of the central pulmonary arteries suspicious for pulmonary arterial hypertension. Bones/joints: No acute osseous abnormalities are identified. Osteopenia. Chronic lower right lateral rib fracture. Mild-moderate thoracic spondylosis. Bone island in the T2 vertebral body. Soft tissues: No acute soft tissue abnormality. IMPRESSION: 1. No thoracic injuries are identified. 2. Mildly enlarged pretracheal retrocaval node, nonspecific. 3. Mild cardiomegaly and mild-moderate coronary artery calcification. Question mild pulmonary arterial hypertension. PROCEDURE INFORMATION: Exam: CT Abdomen And Pelvis With Contrast Exam date and time: 07/28/2024 8:07 PM Age: 79 years old Clinical indication: Pain and injury or trauma; Abdominal pain and other: L. Chest/abd pain, L. Hip pain, epigastric pain; Blunt trauma (contusions or hematomas); Left-sided; Injury details: Fall, L. Chest/abd pain, L. Hip pain, epigastric pain; Additional info: Fall on anticoagulation, L. Chest/abd pain, L. Hip pain, epigastric pain TECHNIQUE: Imaging protocol: Computed tomography of the abdomen and pelvis with contrast. 3D rendering (Not supervised by radiologist): MIP and/or 3D reconstructed images were created by the technologist. Contrast material: OMNI 350; Contrast volume: 100 ml; Contrast route: INTRAVENOUS (IV); COMPARISON: CT ABDOMEN PELVIS W 05/11/2024 12:07 PM FINDINGS: Esophagus: The visualized distal esophagus is largely contracted without gross abnormality. Liver: Hepatic cirrhosis. TIPS in place which appears patent. 8 mm low-density probable cyst in the left hepatic lobe which does not require further assessment. No intrahepatic biliary ductal dilatation. Mild bowel wall thickening in the small bowel, possibly representing changes of hepatic enteropathy although can not exclude enteritis. No evidence of obstruction, perforation, or abscess. Mid abdominal small bowel anastomosis without gross complication. Gallbladder and biliary ducts: Gallbladder is largely contracted, likely accounting for the slight wall thickening although there is slight pericholecystic stranding which may relate to cirrhosis and edema, correlate clinically for cholecystitis. Nondilated bile ducts. Pancreas: Mild pancreatic atrophy without acute abnormality. No pancreatic ductal dilatation. Spleen: Splenomegaly measuring 17 cm, suggesting portal hypertension in the setting of cirrhosis. Adrenal glands: Normal. No adrenal mass. Kidneys and ureters: No acute abnormalities. No hydronephrosis or hydroureter. No urinary tract stones are identified. Stomach and bowel: The stomach contains moderate food content but is otherwise unremarkable. Partial proximal colectomy with ileocolonic anastomosis demonstrating no gross complication. Left lower quadrant colostomy. Mild distal colonic diverticulosis without diverticulitis. Prior distal colonic resection. Appendix: Appendix is not identified, likely surgically absent. Intraperitoneal space: No peritoneal free fluid or air. Vasculature: No acute process. No abdominal aortic aneurysm. Moderate calcific atherosclerosis. Lymph nodes: No adenopathy. Urinary bladder: Unremarkable as visualized. Reproductive: Borderline mild prostate enlargement. Bones/joints: No acute osseous abnormalities. Osteopenia. Moderate lumbar spondylosis with multilevel advanced lumbar disc degenerative changes. Soft tissues: No acute soft tissue abnormalities. Chronic postoperative changes in the anterior abdominal wall. IMPRESSION: 1. No acute intra-abdominal/intrapelvic injuries. 2. Hepatic cirrhosis with prior TIPS placement, which is patent. 3. Splenomegaly. 4. Mild stranding around the gallbladder probably relates to cirrhosis and edema although correlate clinically for cholecystitis. 5. Mild bowel wall thickening in the small bowel may represent hepatic enteropathy although cannot exclude enteritis. No bowel obstruction or perforation. 6. Postsurgical changes detailed above. 7. Additional nonemergent findings detailed above. Dictated and Authenticated by: Elia Chiu MD. Ordering:SAMANTHA Real MD
[2024-07-28 20:52] LABS: Troponin I 53 ng/L (<or=76)
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
== END 2024-07-28 21:45 | disposition home or self-care (01) ==
PROVIDERS: Emergency Provider Emergency Medicine; PCP Nurse Practitioner Adult Health
DX: R07.81 Pleurodynia (principal); M25.552 Pain in left hip; K74.69 Other cirrhosis of liver; E87.6 Hypokalemia; I11.0 Hypertensive heart disease with heart failure; I50.22 Chronic systolic (congestive) heart failure; E11.9 Type 2 diabetes mellitus without complications; I48.0 Paroxysmal atrial fibrillation; Z63.8 Other specified problems related to primary support group; Z79.01 Long term (current) use of anticoagulants; Z79.84 Long term (current) use of oral hypoglycemic drugs; Z87.891 Personal history of nicotine dependence; W01.0XXA Fall on same level from slipping, tripping and stumbling without subsequent striking against object, initial encounter; Y93.01 Activity, walking, marching and hiking; Y92.017 Garden or yard in single-family (private) house as the place of occurrence of the external cause
CPT/HCPCS: 74177; 80053; 83690; 93005; 99285; 70450; 71260; 72125; 83735; 84484; 85025; 85610; 93010; 99284; J3490

== ENCOUNTER 2024-08-04 22:50 | Inpatient (IN) | payer OTHER, SELFPAY ==
[2024-08-04 22:47] VITALS: BP 190/83; PULSE 85; RESP 16; TEMP 36.8; O2SAT 95
--- NOTE | 2024-08-04 22:56 | ED.GENADUL_ITS ---
Discharge Plan Disposition Patient Disposition: Admit to [facility] Condition: Good Discharge Details Chief Complaint: Abd Prob Clinical Impression: Small bowel obstruction Primary Care Provider: Maryann Whitt ED Provider: Js Johns Home Meds and New Rx's Prescriptions: No Action pantoprazole 40 mg Tablet,Delayed Release (Dr/Ec) 40 mg PO DAILY PRN pregabalin 50 mg Capsule 50 mg PO BID Eliquis 5 mg Tablet 5 mg PO BID nitroglycerin 0.4 mg Tablet, Sublingual 0.4 mg sublingual Q5 MIN PRN X3 PRNQty: 30 0RF miconazole nitrate 2 % Powder 1 applic TOPICAL BID PRN rifaximin 550 mg Tablet 550 mg PO BID prazosin 5 mg capsule 10 mg PO QPM tamsulosin 0.4 mg Capsule 0.4 mg PO DAILY ferrous sulfate 325 mg (65 mg iron) Tablet 325 mg PO DAILY empagliflozin 25 mg Tablet 25 mg PO DAILY levothyroxine 200 mcg Tablet 100 mcg PO QAM Qty: 0 0RF cholecalciferol (vitamin D3) 25 mcg (1,000 unit) capsule 25 mcg PO DAILY diclofenac sodium [Arthritis Pain (diclofenac)] 1 % gel 2 g topical QID PRN Rx Instructions: apply to single elbow, wrist or hand; for hand includes palm/fingers/back of hand losartan 50 mg tablet 50 mg PO BID venlafaxine 150 mg capsule,extended release 24hr 150 mg PO DAILY rosuvastatin [Crestor] 20 mg Tablet 40 mg PO QPM Qty: 0 0RF carvedilol phosphate 10 mg capsule, ER multiphase 24 hr 10 mg PO QHS Rx Instructions: must administer with a meal/food clobetasol 0.05 % cream 1 applic topical DAILY acetaminophen [Tylenol] 325 mg Capsule 975 mg PO Q8H MDD 3000 PRN metformin 500 mg tablet extended release 24hr 500 mg PO DAILY Qty: 30 0RF simethicone 80 mg tablet,chewable 80 mg PO BID-QID PRNQty: 90 0RF insulin glargine [Lantus Solostar U-100 Insulin] 100 unit/mL (3 mL) insulin pen 10 unit subcut QAM Qty: 15 0RF melatonin 3 mg Tablet 3 mg PO HS Qty: 30 0RF cefpodoxime 200 mg tablet 200 mg PO Q12H Qty: 3 0RF Rx Instructions: must administer with a meal/food spironolactone 25 mg Tablet 12.5 mg PO DAILY Qty: 30 0RF lactulose 20 gram/30 mL Solution 20 g PO TID Qty: 1800 11RF Rx Instructions: to maintain colostomy output of 3-4 bags per day furosemide 20 mg tablet 20 mg PO Q OTHER DAY Qty: 15 0RF furosemide 20 mg tablet 10 mg PO DAILY PRNQty: 7 0RF Rx Instructions: Take for increased weight of 2 pounds for 2 consecutive days or 3 pounds in 5 days. Weight yourself daily and keep a log HPI General Date/Time Provider Initiated Documentation: 08/04/24 22:53 . HPI Narrative: This 79-year-old male patient with a past medical history of atrial fibrillation on Eliquis and Coreg, HFrEF with an LVEF of 24% on 02/14/2024, insulin-dependent diabetes mellitus, obstructive sleep apnea, coronary artery disease, chronic kidney disease, cirrhosis with recurrent episode of hepatic encephalopathy prior hemicolectomy and TIPS procedure, current colostomy, multiple prior episodes of small bowel obstruction in the past, likely secondary to an adhesion, presents today for vomiting. Patient states that he stopped having colostomy output 24 hours ago. Since then he has been nauseous and vomiting with abdominal pain near the colostomy site. He denies any blood in his colostomy bag or his vomitus. He states he feels notably nauseous. He denies chest pain or shortness of breath. He states that this feels very similar to his previous obstruction episodes that he has had over 30 times. Related Data Home Medications ?Medication ?Instructions ?Recorded ?Confirmed apixaban 5 mg tablet (Eliquis) 5 mg PO BID 11/08/22 08/04/24 pantoprazole 40 mg tablet,delayed 40 mg PO DAILY PRN 11/08/22 08/04/24 release pregabalin 50 mg capsule 50 mg PO BID 11/08/22 08/04/24 nitroglycerin 0.4 mg sublingual 0.4 mg sublingual Q5 MIN PRN X3 02/10/23 08/04/24 tablet PRN #30 tabs ferrous sulfate 325 mg (65 mg 325 mg PO DAILY 03/08/23 08/04/24 iron) tablet empagliflozin 25 mg tablet 25 mg PO DAILY 04/09/23 08/04/24 levothyroxine 200 mcg tablet 100 mcg (1/2 x 200 mcg) PO QAM #0 04/10/23 08/04/24 tabs miconazole nitrate 2 % topical 1 applic topical BID PRN 06/16/23 08/04/24 powder rifaximin 550 mg tablet 550 mg PO BID 07/07/23 08/04/24 cholecalciferol (vitamin D3) 25 25 mcg PO DAILY 03/05/24 08/04/24 mcg (1,000 unit) capsule diclofenac sodium 1 % topical gel 2 g topical QID PRN 03/05/24 08/04/24 (Arthritis Pain (diclofenac)) losartan 50 mg tablet 50 mg PO BID 03/05/24 08/04/24 venlafaxine 150 mg 150 mg PO DAILY 03/05/24 08/04/24 capsule,extended release 24 hr rosuvastatin 20 mg tablet (Crestor) 40 mg (2 x 20 mg) PO QPM #0 tabs 03/06/24 08/04/24 acetaminophen 325 mg capsule 975 mg PO Q8H PRN 05/12/24 08/04/24 (Tylenol) carvedilol phosphate 10 mg 10 mg PO QHS 05/12/24 08/04/24 capsule,[id number] multiphase clobetasol 0.05 % topical cream 1 applic topical DAILY 05/12/24 08/04/24 insulin glargine 100 unit/mL (3 10 unit (0.1 mL) subcut QAM #15 mL 05/13/24 08/04/24 mL) subcutaneous pen (Lantus Solostar U-100 Insulin) metformin 500 mg tablet,extended 500 mg PO DAILY #30 tabs 05/13/24 08/04/24 release 24hr (osmotic) simethicone 80 mg chewable tablet 80 mg PO BID-QID PRN #90 tabs 05/13/24 08/04/24 cefpodoxime 200 mg tablet 200 mg PO Q12H #3 tabs 07/05/24 08/04/24 furosemide 20 mg tablet 10 mg (1/2 x 20 mg) PO DAILY PRN 07/05/24 08/04/24 #7 tabs furosemide 20 mg tablet 20 mg PO Q OTHER DAY #15 tabs 07/05/24 08/04/24 lactulose 20 gram/30 mL oral 20 g (30 mL) PO TID #1,800 mL 07/05/24 08/04/24 solution melatonin 3 mg tablet 3 mg PO HS #30 tabs 07/05/24 08/04/24 spironolactone 25 mg tablet 12.5 mg (1/2 x 25 mg) PO DAILY #30 07/05/24 08/04/24 tabs prazosin 5 mg capsule 10 mg PO QPM 08/04/24 08/04/24 tamsulosin 0.4 mg capsule 0.4 mg PO DAILY 08/04/24 08/04/24 Previous Rx's ?Medication ?Instructions ?Recorded nitroglycerin 0.4 mg sublingual 0.4 mg sublingual Q5 MIN PRN X3 02/10/23 tablet PRN #30 tabs levothyroxine 200 mcg tablet 100 mcg (1/2 x 200 mcg) PO QAM #0 04/10/23 tabs rosuvastatin 20 mg tablet (Crestor) 40 mg (2 x 20 mg) PO QPM #0 tabs 03/06/24 insulin glargine 100 unit/mL (3 10 unit (0.1 mL) subcut QAM #15 mL 05/13/24 mL) subcutaneous pen (Lantus Solostar U-100 Insulin) metformin 500 mg tablet,extended 500 mg PO DAILY #30 tabs 05/13/24 release 24hr (osmotic) simethicone 80 mg chewable tablet 80 mg PO BID-QID PRN #90 tabs 05/13/24 cefpodoxime 200 mg tablet 200 mg PO Q12H #3 tabs 07/05/24 furosemide 20 mg tablet 10 mg (1/2 x 20 mg) PO DAILY PRN 07/05/24 #7 tabs furosemide 20 mg tablet 20 mg PO Q OTHER DAY #15 tabs 07/05/24 lactulose 20 gram/30 mL oral 20 g (30 mL) PO TID #1,800 mL 07/05/24 solution melatonin 3 mg tablet 3 mg PO HS #30 tabs 07/05/24 spironolactone 25 mg tablet 12.5 mg (1/2 x 25 mg) PO DAILY #30 07/05/24 tabs Allergies Allergy/AdvReac Type Severity Reaction Status Date / Time Penicillins Allergy Mild Itching Verified 08/04/24 23:15 morphine AdvReac Severe vomiting Verified 08/04/24 23:15 General Stated Complaint: Abd Prob ANNA: 3 Review of Systems All systems reviewed & are unremarkable except as noted in HPI and below Exam Narrative Exam Narrative: 1.Const: Well-nourished, Well-developed, appearing stated age 2.Eyes: PERRL, no conjunctival injection, and symmetrical lids. 3.ENT: Atraumatic external nose and ears. Moist MM. Neck: Symmetric, trachea midline, No thyromegaly. 4.CVS: +S1/S2, No murmurs or gallops. Peripheral pulses 2+ and equal in all extremities. Brisk capillary refill in all extremities. 5.RESP: Unlabored respiratory effort. Clear to auscultation bilaterally. No wheezes rales or rhonchi 6.GI: Mildly distended, tenderness around the ostomy site. Mild voluntary guarding. No rebound. 7.MSK: Normocephalic/Atraumatic, Extremities w/o deformity or ttp No cyanosis or clubbing, Normal movement of all extremities 8.Skin: Warm, Dry. No rashes or lesions. 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 Sensation grossly intact, no focal neurologic deficits. 10.Psych: (AAO) x3. Appropriate mood and affect Course Vital Signs Vital signs: Vital Signs Temperature 36.8 C 08/04/24 22:47 Pulse 85 08/04/24 22:47 Respiratory Rate 16 08/04/24 22:47 Blood Pressure 190/83 H 08/04/24 22:47 Pulse Oximetry 95 08/04/24 22:47 Temperature 36.8 C 08/04/24 22:47 Temperature Source Oral 08/04/24 22:47 Pulse 85 08/04/24 22:47 Respiratory Rate 16 08/04/24 22:47 Blood Pressure 190/83 H 08/04/24 22:47 Blood Pressure Position Supine 08/04/24 22:47 Pulse Oximetry 95 08/04/24 22:47 Oxygen Delivery Method Room Air 08/04/24 22:47 Oxygen Flow Rate 0 08/04/24 22:47 Pain Level 6 08/04/24 22:47 Medical Decision Making This 79-year-old male patient with a past medical history of atrial fibrillation on Eliquis and Coreg, HFrEF with an LVEF of 24% on 02/14/2024, insulin-dependent diabetes mellitus, obstructive sleep apnea, coronary artery disease, chronic kidney disease, cirrhosis with recurrent episode of hepatic encephalopathy prior hemicolectomy and TIPS procedure, current colostomy, multiple prior episodes of small bowel obstruction in the past, likely secondary to an adhesion, presents today for vomiting. Patient states that he stopped having colostomy output 24 hours ago. Since then he has been nauseous and vomiting with abdominal pain near the colostomy site. He denies any blood in his colostomy bag or his vomitus. He states he feels notably nauseous. He denies chest pain or shortness of breath. He states that this feels very similar to his previous obstruction episodes that he has had over 30 times. Exam demonstrates mild abdominal distention, present bowel sounds, mild pain around the ostomy site. No output in the ostomy bag itself. Concern for obstruction again. We will give oral contrast to see if this helps mobilize the patient's intestines in this scenario. Will get a CT scan, evaluate for laboratory abnormalities, monitor closely and reassess. 1:51 AM Laboratory workup shows no white count, stable hemoglobin, platelets at baseline at 67, renal function and bilirubin at baseline. Lipase minimally elevated at 82. CT scan shows evidence of small bowel obstruction with transition zone at the proximal ileum secondary to an adhesion. This appears to be consistent with previous sites of obstruction and adhesion components. I did discuss case with the hospitalist Dr. Jim, he agrees with the assessment and plan for admission. NG tube has been placed down here in the emergency department. We did discuss the case with surgery as well, Dr. Berg does not feel that there is any needed surgical intervention at this point. Usually the patient does well after a day or so of fluids and NG tube. Patient remains hemodynamically stable. After speaking with Dr. Jim, I will place admission orders on his behalf at his request. We will put in for 150 cc of normal saline q. hourly for continued hydration, fentanyl as needed for pain control. I have extensively reviewed the treatment plan and discharge instructions with the patient. I have addressed all patient concerns at this time. The patient was made aware of what symptoms to monitor for that would warrant a return to the emergency department. Discussed the plan with the patient, they demonstrate verbal understanding and agreement with our assessment and plan at this time. The documentation in this chart was dictated using [employer] dictation software. Please excuse any dictation errors. FINDINGS: Lungs: Atelectatic changes in both lower lobes. Heart: Mild pericardial effusion. Liver: Post tips. Nodular contour of the liver, consistent with cirrhosis. Gallbladder and biliary ducts: Normal. No calcified stones. No ductal dilation. Pancreas: Normal. No ductal dilation. Spleen: Enlarged spleen measuring 15.3 cm in craniocaudal dimension. Adrenal glands: Normal. No mass. Kidneys and ureters: Normal. No hydronephrosis Stomach and bowel: Partial distal colon resection with descending colostomy. Surgical changes of right partial colectomy with ileocolic anastomosis. There is dilatation of the small bowel loops in the mid abdomen reaching 5.5 cm with contrast reaching the proximal dilated bowel loops. There is transition zone at the level of the anastomosis of the small bowel in the proximal ileum (series 7, image 116), with possible adhesion at that area. Mild small bowel wall thickening, suggestive of hepatic enteropathy. Appendix: Surgically absent. Intraperitoneal space: Unremarkable. No free air. No significant fluid collection. Vasculature: Vascular calcifications. Pelvic phleboliths. Lymph nodes: Unremarkable. No enlarged lymph nodes. Urinary bladder: Unremarkable as visualized. Reproductive: Unremarkable as visualized. Bones/joints: Mild degenerative disease of bilateral sacroiliac joints, pubis and bilateral hip joints. Multilevel posterior osteophyte disc complex of the lumbar spine, most pronounced at L4-L5 and L5- S1 with mild bony canal stenosis. Soft tissues: Bilateral fat containing inguinal hernias. IMPRESSION: Small bowel obstruction with transition zone at the proximal ileum, likely related to adhesions. No perforation. Thank you for allowing us to participate in the care of your patient. Dictated and Authenticated by: Abe Nunn MD 08/05/2024 1:28 AM Eastern Time ([place] & [place]) Quality:SDOH Health Related Social Needs: Health related social needs inadequate housing(Z59.1) Health related social needs details Unable to get in a nd out of home, ambulate or perform ADLs. PFSH All Active Problems (Updated 08/05/24 @ 01:54 by Js Johns DO) Small bowel obstruction (Acute) Acute hypokalemia (Acute) Family conflict (Acute) Chest pain in adult (Acute) Fall (Acute) Chronic heart failure with reduced ejection fraction (HFrEF, <= 40%) (Acute) Anemia (Chronic) Thrombocytopenia (Chronic) Colostomy care (Acute) Chronic low back pain (Chronic) Hematuria (Acute) Cirrhosis of liver without ascites (Chronic) Elevated troponin level not due myocardial infarction (Acute) Diabetes (Chronic) Leukopenia (Acute) Oral candidiasis (Acute) Sepsis syndrome (Acute) PAF (paroxysmal atrial fibrillation) (Chronic) Gram-negative bacteremia (Acute) Cellulitis (Acute) Lower urinary obstructive symptom (Acute) Anemia of chronic disease (Acute) Thrombocytopenia (Chronic) Ventricular ectopy (Acute) Sinus bradycardia (Acute) Leukocytosis (Acute) Hypertension (Chronic) Elevated lactic acid level (Acute) CHF (congestive heart failure) (Chronic) No-show for appointment (Acute) Left rotator cuff tear (Acute) Acute UTI (urinary tract infection) (Acute) Weakness (Acute) Non-ST elevation IL (NSTEMI) (Acute) Pre-syncope (Acute) Frequent falls (Acute) Orthostatic hypotension (Acute) Chronic atrial fibrillation (Chronic) Type 2 diabetes mellitus (Chronic) Hypokalemia (Acute) Bradycardia (Acute) Multiple falls (Acute) Acute metabolic encephalopathy (Acute) Medication monitoring encounter (Acute) ANETTE (obstructive sleep apnea) (Chronic) Chest pain (Acute) CHF exacerbation (Acute) CHF (congestive heart failure) (Chronic) EF 25%- 2023 Medical History Goals of care, counseling/discussion Lactic acidosis UTI (urinary tract infection) Urinary tract infection Advanced care planning/counseling discussion Palliative care encounter Followed by [facility] Bowel obstruction Sepsis Heart failure with reduced ejection fraction Hypothyroidism Small bowel obstruction Lactic acid acidosis Creatinine elevation Acute UTI Anticoagulated COVID Recurrent intestinal obstruction History of colon cancer Chronic anticoagulation Portal hypertension Cirrhosis TIPs placed (?when, [facility] [place] 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 [place].
[2024-08-04] MEDS: Breeza Beverage 473 ML BTL PO ×2 (23:04→23:07)
[2024-08-04] MEDS: Omnipaque 350 MG/ML 50 ML BTL PO (23:05)
[2024-08-04] MEDS: ACETAMINOPHEN 1,000 MG/100 ML BTL 400 MG IVPB (23:12)
[2024-08-04] MEDS: Ondansetron 4 MG/2 ML VIAL IVP (23:13)
[2024-08-04 23:14] VITALS: BP 190/83; PULSE 85; RESP 16; TEMP 36.8; O2SAT 95
[2024-08-04] MEDS: Prochlorperazine 10 MG/2 ML VIAL 5 MG IVP (23:14)
[2024-08-04 23:15] LABS: Abs Immature Grans 0.01 10^3/uL (0.0-0.06); Absolute Basophil Count 0.03 10^3/uL (0.0-0.2); Absolute Eosinophil Count 0.25 10^3/uL (0.0-0.7); Absolute Lymphocyte Count 0.53 10^3/uL (1.2-3.4); Absolute Monocyte Count 0.39 10^3/uL (0.1-0.8); Basophils % 0.7 %; Eosinophils % 5.5 %; HCT 33.1 % (40.0-50.0); HGB 10.8 g/dL (13.5-17.5); Immature Grans % 0.2 %; Lymphocytes % 11.8 %; MCH 29.9 pg (27.0-33.0); MCHC 32.6 % (32.0-36.0); MCV 92 fL (80-95); MPV 11.3 fL (8.0-11.0); Monocytes % 8.6 %; Neutrophils % 73.2 %; RBC 3.61 10^6/uL (4.36-5.78); RDW 17.5 % (11.8-14.1); RDW-SD 58.9 fL; WBC 4.51 10^3/uL (4.4-10.8)
[2024-08-04 23:28] LABS: Diff Comment PLT Morph Reviewed; Platelet Count 67 10^3/uL (130-400); RBC Morphology Normal
[2024-08-04 23:30] LABS: ALT 23 U/L (16-63); AST 40 U/L (15-37); Alkaline Phosphatase 125 U/L (46-116); BUN 13 mg/dL (7-18); Bilirubin, Total 1.58 mg/dL (0.2-1.0); CO2 24.9 mmol/L (21.0-32.0); CREATININE 1.2 mg/dL (0.70-1.30); Calcium 9.3 mg/dL (8.5-10.1); Estimated GFR 62.29 (mL/min/1.73m2); Glucose 149 mg/dL (74-106); Lipase 82 U/L (16-77); Total Protein 6.6 g/dL (6.4-8.2)
[2024-08-04 23:34] LABS: Anion Gap 13.1 mmol/L (3-11); Chloride 110 mmol/L (98-107); Potassium 3.5 mmol/L (3.5-5.1); Sodium 148 mmol/L (136-145)
[2024-08-04] MEDS: fentaNYL 100 MCG/2 ML VIAL IVP (23:41)
[2024-08-04 23:55] VITALS: PULSE 92; RESP 15; O2SAT 86
[2024-08-04 23:56] VITALS: RESP 16; O2SAT 87
[2024-08-05] VITALS (12 sets, daily range): BP systolic 135–213; BP diastolic 69–103; PULSE 73–103; RESP 11–19; TEMP 36.7–37.1; O2SAT 93–96
--- NOTE | 2024-08-05 00:36 | DI.CT_ITS ---
Exam(s) CT ABDOMEN PELVIS WO EXAM: CT ABDOMEN PELVIS WO CLINICAL HISTORY: hx of obstruction, eval for obs. TECHNIQUE: Imaging Protocol: Axial computed tomography images with coronal and sagittal reformatted images were created and reviewed CONTRAST MATERIAL: Intravenous: none Oral: Yes. Contrast was administered. COMPARISON: CT CT CHEST/ABD/PEL W from 07/28/2024 FINDINGS: VISUALIZED LUNG BASES: No nodules nor pleural effusions evident. ABDOMEN: GI: Again noted is left partial colectomy and left-sided colostomy. Also evidence of ileocolic anast omosis. There is dilatation of the stomach and small bowel loops in this patient has had prior surgi vivi procedures, consistent with small bowel obstruction. Diameter of the small bowel loops measures up to 4.5 cm. The transition point appears to be in the right-side of the abdomen.. There is no james dence of free air nor abscess. There is no ascites. LIVER: Liver is again noted be cirrhotic appearing there is a TIPS stent again noted in place. No ob vious new significant lesions. Small cyst in left hepatic lobe again noted. GALLBLADDER/BILIARY: No obvious gallbladder pathology. CBD is not dilated. PANCREAS: No evidence of pancreatic mass nor dilatation of the pancreatic duct. SPLEEN: Splenomegaly noted. Spleen measures 15.5 cm. ADRENALS: There are no significant adrenal masses. KIDNEYS:No cysts evident. No solid renal masses. No calculi nor hydronephrosis. . ABDOMINAL AORTA: Abdominal aorta is not enlarged. LYMPH NODES: There is no retroperitoneal nor paraaortic adenopathy. ABDOMINAL WALL: No evidence of significant anterior abdominal wall nor inguinal hernia. PELVIS: LYMPH NODES: There is no intrapelvic nor inguinal adenopathy. GI: Appendix surgically absent. left colectomy. URINARY BLADDER: No calculi nor obvious masses evident REPRODUCTIVE: Prostate not enlarged OSSEOUS: No significant osseous lesions. No fractures. Multilevel chronic degenerative disc disease. IMPRESSION: 1. Small-bowel obstruction with transition point in the right-side of the abdomen. There has been pr evious bowel surgery, including left hemicolectomy and there is a left-sided colostomy. 2. Hepatic cirrhosis. Tips. Splenomegaly. No ascites. RADIATION DOSE DELIVERED: 676.86mGy.cm Total DLP DATA REPOSITORY: All CT scans at this facility are submitted to the National Radiology Data Registry (NRDR) Dose Index Registry (DIR) with the [employer] (A[employer]). RADIATION OPTIMIZATION: All CT scans at this facility use at least one of these dose optimization te chniques: automated exposure control; mA and/or kV adjustment per patient size (includes targeted exa ms where dose is matched to clinical indication); or iterative reconstruction.
[2024-08-05] MEDS: fentaNYL 100 MCG/2 ML VIAL IVP (01:24)
--- NOTE | 2024-08-05 01:29 | DI.VRAD_ITS ---
Addendum created by Abe Nunn MD on 08/05/2024 1:31:36 AM EDT: THIS REPORT CONTAINS FINDINGS THAT MAY BE CRITICAL TO PATIENT CARE. The findings were verbally communicated via telephone conference with MARYCRUZ MARTINEZ at 1:30 AM EDT on 08/05/2024. The findings were acknowledged and understood. Initial report created on 08/05/2024 1:28:46 AM EDT: PROCEDURE INFORMATION: Exam: CT Abdomen And Pelvis Without Contrast Exam date and time: 08/05/2024 12:37 AM Age: 79 years old Clinical indication: Other: HX of obstruction, eval for obs TECHNIQUE: Imaging protocol: Computed tomography of the abdomen and pelvis without contrast. Other contrast: Oral, omni 350 , 946; COMPARISON: CT CHEST/ABD/PEL W 07/28/2024 8:07 PM FINDINGS: Lungs: Atelectatic changes in both lower lobes. Heart: Mild pericardial effusion. Liver: Post tips. Nodular contour of the liver, consistent with cirrhosis. Gallbladder and biliary ducts: Normal. No calcified stones. No ductal dilation. Pancreas: Normal. No ductal dilation. Spleen: Enlarged spleen measuring 15.3 cm in craniocaudal dimension. Adrenal glands: Normal. No mass. Kidneys and ureters: Normal. No hydronephrosis. Stomach and bowel: Partial distal colon resection with descending colostomy. Surgical changes of right partial colectomy with ileocolic anastomosis. There is dilatation of the small bowel loops in the mid abdomen reaching 5.5 cm with contrast reaching the proximal dilated bowel loops. There is transition zone at the level of the anastomosis of the small bowel in the proximal ileum (series 7, image 116), with possible adhesion at that area. Mild small bowel wall thickening, suggestive of hepatic enteropathy. Appendix: Surgically absent. Intraperitoneal space: Unremarkable. No free air. No significant fluid collection. Vasculature: Vascular calcifications. Pelvic phleboliths. Lymph nodes: Unremarkable. No enlarged lymph nodes. Urinary bladder: Unremarkable as visualized. Reproductive: Unremarkable as visualized. Bones/joints: Mild degenerative disease of bilateral sacroiliac joints, pubis and bilateral hip joints. Multilevel posterior osteophyte disc complex of the lumbar spine, most pronounced at L4-L5 and L5-S1 with mild bony canal stenosis. Soft tissues: Bilateral fat containing inguinal hernias. IMPRESSION: Small bowel obstruction with transition zone at the proximal ileum, likely related to adhesions. No perforation. Dictated and Authenticated by: Abe Nunn MD. Ordering:CASEY Weinstein MD
[2024-08-05] MEDS: Lidocaine/Epinephri/Tetracaine Topical Gel 3 ML (02:14)
--- NOTE | 2024-08-05 02:16 | W.SURGCON ---
Date of service: 08/05/24 Time of Service: 02:16 Assessment and Plan Assessment and plan (1) Small bowel obstruction: Status: Acute Assessment and plan: In light of Merrill's history, NGT decompression and a trial of non-operative management is a resolve option as his symptoms generally resolve quickly. Similarly, a gastrographin challenge may be useful if he is not feeling better by the morning time. Certainly, if his obstruction does not resolve quickly, Merrill will need to be transferred to a center such as [facility] or [facility] based on the complexity of his comorbidities and the fact the exploration would be s significant undertaking. I have encouraged him to seek their opinion in the past, under non-urgent conditions, since this issue is clearly going to happen again, but so far he has not followed the recommendation. History of Present Illness History of Present Illness Chief Complaint: vomiting Narrative: Merrill is 79 years old. He comes to the ED complaining of nuasea and vomiting. He also has some mild, relatively non-focal abdominal discomfort. This is similar in character to episodes of bowel obstruction that he has suffered in the past. His colostomy output has decreased in the past 24 hours. He has an extensive and complex medical history that includes atrial fibrillation, heart failure with an ejection fraction around 30%, IDDM, ANETTE, CAD, CKD, cirrhosis requiring TIPS and most recently comoplicated by encephalopathy. He has a chronic thrombocytopenia. His surgical history is unclear to me, but he appears to have had an APR for colon cancer, and at least a small bowel resection and ileocectomy or right hemicolectomy based on staple lines seen on CT scans. He has had multiple hospital admissions for these same symptoms generally regarded as chronic small bowel obstruction that are generally attributed to a culprit area of small bowel pathology that remains consistent over several CT scans. He underwent another CT scan tonight with siilar findings. [facility] All Active Problems (Updated 08/05/24 @ 04:30 by [place] Jim) Dehydration with hypernatremia (Acute) Small bowel obstruction (Acute) Acute hypokalemia (Acute) Family conflict (Acute) Chest pain in adult (Acute) Fall (Acute) Chronic heart failure with reduced ejection fraction (HFrEF, <= 40%) (Chronic) Anemia (Chronic) Thrombocytopenia (Chronic) Colostomy care (Acute) Chronic low back pain (Chronic) Hematuria (Acute) Cirrhosis of liver without ascites (Chronic) Elevated troponin level not due myocardial infarction (Acute) Diabetes (Chronic) Leukopenia (Acute) Oral candidiasis (Acute) Sepsis syndrome (Acute) PAF (paroxysmal atrial fibrillation) (Chronic) Gram-negative bacteremia (Acute) Cellulitis (Acute) Lower urinary obstructive symptom (Acute) Anemia of chronic disease (Acute) Thrombocytopenia (Chronic) Ventricular ectopy (Acute) Sinus bradycardia (Acute) Leukocytosis (Acute) Hypertension (Chronic) Elevated lactic acid level (Acute) CHF (congestive heart failure) (Chronic) No-show for appointment (Acute) Left rotator cuff tear (Acute) Acute UTI (urinary tract infection) (Acute) Weakness (Acute) Non-ST elevation NC (NSTEMI) (Acute) Pre-syncope (Acute) Frequent falls (Acute) Orthostatic hypotension (Acute) Chronic atrial fibrillation (Chronic) Type 2 diabetes mellitus (Chronic) Hypokalemia (Acute) Bradycardia (Acute) Multiple falls (Acute) Acute metabolic encephalopathy (Acute) Medication monitoring encounter (Acute) ANETTE (obstructive sleep apnea) (Chronic) Chest pain (Acute) CHF exacerbation (Acute) CHF (congestive heart failure) (Chronic) EF 25%- 2023 Medical History Goals of care, counseling/discussion Lactic acidosis UTI (urinary tract infection) Urinary tract infection Advanced care planning/counseling discussion Palliative care encounter Followed by [facility] Bowel obstruction Sepsis Heart failure with reduced ejection fraction Hypothyroidism Small bowel obstruction Lactic acid acidosis Creatinine elevation Acute UTI Anticoagulated COVID Recurrent intestinal obstruction History of colon cancer Chronic anticoagulation Portal hypertension Cirrhosis TIPs placed (?when, [facility]? 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, Dx [facility] as per pt Non-insulin dependent type 2 diabetes mellitus Incontinence Hypertension Scleral icterus Surgical History S/P TIPS (transjugular intrahepatic portosystemic shunt) H/O left hemicolectomy Colostomy in place Social History Smoking/Tobacco Use Status: Former Tobacco Use Smoking risk assessment performed?: Yes Alcohol Intake: former Drug use: Never Substance use type: does not use Housing: house Do you feel safe at home: Yes Do you feel safe in your relationship?: Yes Additional Social history: Lives with , son, and sick [id number], moved up from [place] in 2020. [place] . Exam GI Other: The abdomen is soft and not tender. He does not guard. The stoma is patent and there is gilberto and gas in the bag. He has active bowel sounds. Results Last Vital Signs Temp 98.2 F 08/04/24 23:14 Pulse 99 H 08/05/24 02:01 Resp 13 08/05/24 02:01 BP 196/103 H 08/05/24 02:01 Pulse Ox 93 08/05/24 02:01 Labs 08/04/24 23:10 08/04/24 23:10 Labs: Laboratory Results - last 24 hr 08/04/24 23:10 WBC 4.51 RBC 3.61 L Hgb 10.8 L Hct 33.1 L MCV 92 MCH 29.9 MCHC 32.6 RDW 17.5 H Plt Count 67 L MPV 11.3 H Immature Gran % 0.2 Neutrophils % 73.2 Lymphocytes % 11.8 Monocytes % 8.6 Eosinophils % 5.5 Basophils % 0.7 Nucleated RBC % 0.0 Absolute Neutrophils 3.30 Absolute Lymphocytes 0.53 L Absolute Monocytes 0.39 Absolute Eosinophils 0.25 Absolute Basophils 0.03 RBC Morphology Normal Sodium 148 H Potassium 3.5 Chloride 110 H Carbon Dioxide 24.9 Anion Gap 13.1 H BUN 13 Creatinine 1.2 Est GFR (CKD-EPI 2020) 62.29 Glucose 149 H Calcium 9.3 Total Bilirubin 1.58 H AST 40 H ALT 23 Alkaline Phosphatase 125 H Total Protein 6.6 Albumin 3.0 L Lipase 82 H
--- NOTE | 2024-08-05 02:25 | W.PC.ACHO ---
Registration Status: Primary Language: Preferred Language: ED Information & Data Chief Complaint Abd Prob 08/04/24 23:03 Triage Note brought in by EMS, reports 08/04/24 22:47 severe abd pain behind ostomy, vomited at home. started this morning. no blood in vomit or ostomy bag noted. last output in ostomy about 24 hours ago Medical / Surgical History (Last Reviewed 08/04/24 @ 23:02 by Js Johns DO) Goals of care, counseling/discussion Lactic acidosis UTI (urinary tract infection) Urinary tract infection Advanced care planning/counseling discussion Palliative care encounter Bowel obstruction Sepsis Heart failure with reduced ejection fraction Hypothyroidism Small bowel obstruction Lactic acid acidosis Creatinine elevation Acute UTI Anticoagulated COVID Recurrent intestinal obstruction History of colon cancer Chronic anticoagulation Portal hypertension Cirrhosis Confusion Colon cancer Depression Endocarditis Non-insulin dependent type 2 diabetes mellitus Incontinence Hypertension Scleral icterus (Last Reviewed 08/04/24 @ 23:02 by Js Johns DO) S/P TIPS (transjugular intrahepatic portosystemic shunt) H/O left hemicolectomy Colostomy in place Most Recent Vital Signs Temperature 36.8 C 08/04/24 23:14 Temperature Source Oral 08/04/24 23:14 Pulse 99 H 08/05/24 02:01 Pulse 103 H 08/05/24 02:01 Respiratory Rate 13 08/05/24 02:01 Respiratory Effort Normal, Non-Labored 08/04/24 23:56 Respiratory Depth Normal 08/04/24 23:56 Respiratory Pattern Normal 08/04/24 23:56 Blood Pressure 196/103 H 08/05/24 02:01 Blood Pressure Mean 130 08/05/24 02:01 Blood Pressure Position Supine 08/04/24 23:14 Pulse Oximetry 93 08/05/24 02:01 Oxygen Delivery Method Room Air 08/04/24 23:56 Oxygen Flow Rate 0 08/04/24 23:56 Pain Level 6 08/04/24 23:14 Allergies Penicillins Allergy (Mild, Verified 08/04/24 23:15) Itching morphine Adverse Reaction (Severe, Verified 08/04/24 23:15) vomiting Precautions Isolation Standard precaution 08/04/24 22:54 Active Medications Generic Name Dose Route Start Last Admin Trade Name Freq PRN Reason Stop Dose Admin Iohexol 50 ml 08/04/24 23:45 08/04/24 23:05 Omnipaque 350 Mg/Ml 50 Ml Btl PO 09/03/24 23:59 50 ml DIRECTED MAN Administration Miscellaneous Medication 473 ml 08/04/24 23:15 08/04/24 23:07 Breeza Beverage 473 Ml Btl PO 09/03/24 23:59 473 ml DIRECTED MAN Administration IV IV Catheter Type [Right Peripheral IV Antecubital] IV Catheter Gauge [Right 18 Antecubital] Diagnostics 08/04/24 Range/Units 23:10 WBC 4.51 (4.4-10.8) 10^3/uL RBC 3.61 L (4.36-5.78) 10^6/uL Hgb 10.8 L (13.5-17.5) g/dL Hct 33.1 L (40.0-50.0) % MCV 92 (80-95) fL MCH 29.9 (27.0-33.0) pg MCHC 32.6 (32.0-36.0) % RDW 17.5 H (11.8-14.1) % Plt Count 67 L (130-400) 10^3/uL MPV 11.3 H (8.0-11.0) fL Immature Gran % 0.2 % Neutrophils % 73.2 % Lymphocytes % 11.8 % Monocytes % 8.6 % Eosinophils % 5.5 % Basophils % 0.7 % Nucleated RBC % 0.0 (0.0-0.3) % Absolute Neutrophils 3.30 (1.2-6.7) 10^3/uL Absolute Lymphocytes 0.53 L (1.2-3.4) 10^3/uL Absolute Monocytes 0.39 (0.1-0.8) 10^3/uL Absolute Eosinophils 0.25 (0.0-0.7) 10^3/uL Absolute Basophils 0.03 (0.0-0.2) 10^3/uL RBC Morphology Normal Sodium 148 H (136-145) mmol/L Potassium 3.5 (3.5-5.1) mmol/L Chloride 110 H (98-107) mmol/L Carbon Dioxide 24.9 (21.0-32.0) mmol/L Anion Gap 13.1 H (3-11) mmol/L BUN 13 (7-18) mg/dL Creatinine 1.2 (0.70-1.30) mg/dL Est GFR (CKD-EPI 2020) 62.29 (mL/min/1.73m2) Glucose 149 H (74-106) mg/dL Calcium 9.3 (8.5-10.1) mg/dL Total Bilirubin 1.58 H (0.2-1.0) mg/dL AST 40 H (15-37) U/L ALT 23 (16-63) U/L Alkaline Phosphatase 125 H (46-116) U/L Total Protein 6.6 (6.4-8.2) g/dL Albumin 3.0 L (3.4-5.0) g/dL Lipase 82 H (16-77) U/L Intake and Output - 24 Hour Total 08/04/24 22:44 thru 08/05/24 02:10 Intake Total 100 Output Total 400 Balance -300 Weight 106.141 kg Intake: IV 100 Output: Gastric Drainage 400 Left Nare 400 Falls Risk Assessment History of Falls Previous History 08/04/24 22:54 Contributing Factors Impairments 08/04/24 22:54 Ambulatory Aids Uses ambulatory device 08/04/24 22:54 Tubes/Lines With any additional score 08/04/24 22:54 Gait Evaluation W/no contributing factors 08/04/24 22:54 Cognition No cognitive impairment 08/04/24 22:54 Fall Total Score 63 08/04/24 22:54 Level of Risk High Risk 08/04/24 22:54 v v v v v v v v v Sending and/or Receiving Nurses: Please use comment section below to note any information pertinent to the patient hand-off not included above. Information / Comments: Report received from: Melody FAUST [id number]
[2024-08-05] MEDS: Normal Saline 1,000 ML 150 ML IV ×2 (02:55→11:03)
--- NOTE | 2024-08-05 04:19 | W.PM.HP.N ---
Date of service: 08/05/24 Time of Service: 04:19 Assessment and Plan Assessment and plan (1) Small bowel obstruction: Start date: 08/05/24 Status: Acute Assessment and plan: This is a 79-year-old gentleman who has recurrent small bowel status post hemicolectomy. He has multiple medical problems and is a poor surgical candidate. He also appears dehydrated with hypernatremia. Will be placed on IV hydration which should be watched closely with discontinuation as patient begins to take more orally. He is chronically on diuretics will be held. He will continue on his other usual medications as tolerated. Surgery was consulted. He is a full code. (2) Dehydration with hypernatremia: Start date: 08/05/24 Status: Acute Assessment and plan: IV hydration with normal saline at 150 cc an hour and then decreased as patient stabilizes lab watching for fluid overload with CHF and chronic diuretics with cirrhosis. (3) Chronic heart failure with reduced ejection fraction (HFrEF, <= 40%): Status: Chronic Assessment and plan: Hold diuretics but continue other medications as tolerated. Treat hypertension. (4) Thrombocytopenia: Status: Chronic Assessment and plan: Chronic and stable with patient on Eliquis but not candidate for DVT prophylaxis. (5) Cirrhosis of liver without ascites: Status: Chronic Assessment and plan: Does most symptoms with recurrent encephalopathy on lactulose chronically. Take lactulose as tolerated once bowel obstruction is resolving. Qualifiers: Hepatic cirrhosis type: unspecified hepatic cirrhosis Qualified Code(s): K74.60 - Unspecified cirrhosis of liver (6) PAF (paroxysmal atrial fibrillation): Status: Chronic Assessment and plan: Continue medical therapy and Eliquis chronically. History of Present Illness History of Present Illness Chief Complaint: Vomiting with abdominal distention Narrative: This is a 79-year-old male patient who has multiple medical problems to remain a full code who has recurrent episodes of small bowel obstruction most likely secondary to adhesions. He is status post hemicolectomy for polyps according to the patient and has had a previous TIPS procedure for recurrent episodes of hepatic encephalopathy with cirrhosis. He also is a diabetic with ANETTE and obesity, chronic atrial fibrillation on Eliquis and Coreg with CHF and reduced left ventricular ejection fraction of 24% last documented on 02/14/2024. He is not having increased edema though he has chronic peripheral edema. He denies any shortness of breath. He has not had output into his colostomy over the recent 24 hours. He denies any blood in his vomitus or previously in his colostomy. He has had previous episodes recently multiple times but is not a surgical candidate and usually resolves with NG tube decompression for 1 to 2 days. He remains a full code. Review of Systems Narrative: 13 point review of systems otherwise unrevealing or stable. [facility] All Active Problems (Updated 08/05/24 @ 04:30 by Phoneix Jim) Dehydration with hypernatremia (Acute) Small bowel obstruction (Acute) Acute hypokalemia (Acute) Family conflict (Acute) Chest pain in adult (Acute) Fall (Acute) Chronic heart failure with reduced ejection fraction (HFrEF, <= 40%) (Chronic) Anemia (Chronic) Thrombocytopenia (Chronic) Colostomy care (Acute) Chronic low back pain (Chronic) Hematuria (Acute) Cirrhosis of liver without ascites (Chronic) Elevated troponin level not due myocardial infarction (Acute) Diabetes (Chronic) Leukopenia (Acute) Oral candidiasis (Acute) Sepsis syndrome (Acute) PAF (paroxysmal atrial fibrillation) (Chronic) Gram-negative bacteremia (Acute) Cellulitis (Acute) Lower urinary obstructive symptom (Acute) Anemia of chronic disease (Acute) Thrombocytopenia (Chronic) Ventricular ectopy (Acute) Sinus bradycardia (Acute) Leukocytosis (Acute) Hypertension (Chronic) Elevated lactic acid level (Acute) CHF (congestive heart failure) (Chronic) No-show for appointment (Acute) Left rotator cuff tear (Acute) Acute UTI (urinary tract infection) (Acute) Weakness (Acute) Non-ST elevation [place] (NSTEMI) (Acute) Pre-syncope (Acute) Frequent falls (Acute) Orthostatic hypotension (Acute) Chronic atrial fibrillation (Chronic) Type 2 diabetes mellitus (Chronic) Hypokalemia (Acute) Bradycardia (Acute) Multiple falls (Acute) Acute metabolic encephalopathy (Acute) Medication monitoring encounter (Acute) ANETTE (obstructive sleep apnea) (Chronic) Chest pain (Acute) CHF exacerbation (Acute) CHF (congestive heart failure) (Chronic) EF 25%- 2023 Medical History Goals of care, counseling/discussion Lactic acidosis UTI (urinary tract infection) Urinary tract infection Advanced care planning/counseling discussion Palliative care encounter Followed by [facility] Bowel obstruction Sepsis Heart failure with reduced ejection fraction Hypothyroidism Small bowel obstruction Lactic acid acidosis Creatinine elevation Acute UTI Anticoagulated COVID Recurrent intestinal obstruction History of colon cancer Chronic anticoagulation Portal hypertension Cirrhosis TIPs placed (?when, [facility]? 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, Dx [facility] as per pt Non-insulin dependent type 2 diabetes mellitus Incontinence Hypertension Scleral icterus Surgical History S/P TIPS (transjugular intrahepatic portosystemic shunt) H/O left hemicolectomy Colostomy in place Social History Smoking/Tobacco Use Status: Former Tobacco Use Smoking risk assessment performed?: Yes Alcohol Intake: former Drug use: Never Substance use type: does not use Housing: house Do you feel safe at home: Yes Do you feel safe in your relationship?: Yes Additional Social history: Lives with , son, and sick [id number] in [place], moved up from [place] in 2019. [place]. Meds Allergies and Home Medications Allergies Allergy/AdvReac Type Severity Reaction Status Date / Time Penicillins Allergy Mild Itching Verified 08/04/24 23:15 morphine AdvReac Severe vomiting Verified 08/04/24 23:15 Home Medications ?Medication ?Instructions ?Recorded ?Confirmed ?Type apixaban 5 mg tablet (Eliquis) 5 mg PO BID 11/08/22 08/04/24 History pantoprazole 40 mg tablet,delayed 40 mg PO DAILY PRN 11/08/22 08/04/24 History release pregabalin 50 mg capsule 50 mg PO BID 11/08/22 08/04/24 History nitroglycerin 0.4 mg sublingual 0.4 mg sublingual Q5 MIN PRN X3 02/10/23 08/04/24 Rx tablet PRN #30 tabs ferrous sulfate 325 mg (65 mg 325 mg PO DAILY 03/08/23 08/04/24 History iron) tablet empagliflozin 25 mg tablet 25 mg PO DAILY 04/09/23 08/04/24 History levothyroxine 200 mcg tablet 100 mcg (1/2 x 200 mcg) PO QAM #0 04/10/23 08/04/24 Rx tabs miconazole nitrate 2 % topical 1 applic topical BID PRN 06/16/23 08/04/24 History powder rifaximin 550 mg tablet 550 mg PO BID 07/07/23 08/04/24 History cholecalciferol (vitamin D3) 25 25 mcg PO DAILY 03/05/24 08/04/24 History mcg (1,000 unit) capsule diclofenac sodium 1 % topical gel 2 g topical QID PRN 03/05/24 08/04/24 History (Arthritis Pain (diclofenac)) losartan 50 mg tablet 50 mg PO BID 03/05/24 08/04/24 History venlafaxine 150 mg 150 mg PO DAILY 03/05/24 08/04/24 History capsule,extended release 24 hr rosuvastatin 20 mg tablet (Crestor) 40 mg (2 x 20 mg) PO QPM #0 tabs 03/06/24 08/04/24 Rx acetaminophen 325 mg capsule 975 mg PO Q8H PRN 05/12/24 08/04/24 History (Tylenol) carvedilol phosphate 10 mg 10 mg PO QHS 05/12/24 08/04/24 History capsule,ext.[id number] multiphase clobetasol 0.05 % topical cream 1 applic topical DAILY 05/12/24 08/04/24 History insulin glargine 100 unit/mL (3 10 unit (0.1 mL) subcut QAM #15 mL 05/13/24 08/04/24 Rx mL) subcutaneous pen (Lantus Solostar U-100 Insulin) metformin 500 mg tablet,extended 500 mg PO DAILY #30 tabs 05/13/24 08/04/24 Rx release 24hr (osmotic) simethicone 80 mg chewable tablet 80 mg PO BID-QID PRN #90 tabs 05/13/24 08/04/24 Rx cefpodoxime 200 mg tablet 200 mg PO Q12H #3 tabs 07/05/24 08/04/24 Rx furosemide 20 mg tablet 10 mg (1/2 x 20 mg) PO DAILY PRN 07/05/24 08/04/24 Rx #7 tabs furosemide 20 mg tablet 20 mg PO Q OTHER DAY #15 tabs 07/05/24 08/04/24 Rx lactulose 20 gram/30 mL oral 20 g (30 mL) PO TID #1,800 mL 07/05/24 08/04/24 Rx solution melatonin 3 mg tablet 3 mg PO HS #30 tabs 07/05/24 08/04/24 Rx spironolactone 25 mg tablet 12.5 mg (1/2 x 25 mg) PO DAILY #30 07/05/24 08/04/24 Rx tabs prazosin 5 mg capsule 10 mg PO QPM 08/04/24 08/04/24 History tamsulosin 0.4 mg capsule 0.4 mg PO DAILY 08/04/24 08/04/24 History Exam Narrative Exam Narrative: General: Patient appears older than stated age, moderately obese, alert and oriented to person, place and marginally to time. He is in no acute distress. HEENT: Normocephalic, eyes with pupils equal and reactive light symmetrically, extraocular movement intact and sclera anicteric. Oropharynx with moist oral mucosa and fair dentition. Neck: Supple without JVD. Neck: Kyphotic without CVA tenderness. Lungs: Aeration and clear to auscultation percussion without localized rales or rhonchi. Heart: Irregular rhythm with normal rate. No appreciable murmur or gallop with distant heart sounds. Abdomen: Obese contour with diffuse distention especially over the left side slightly tender diffusely to palpation with no palpable hepatosplenomegaly. Tender to percussion over the left side more than right. No rebound or guarding. Colostomy bag over left lower abdomen which is empty and flaccid. Well-healed large slightly hypertrophic ventral scar. Bowel sounds positive all quadrants. Genitalia/rectal: Exam deferred. Extremities: Without clubbing, cyanosis or grossly pitting edema with chronic nonpitting edema both lower extremities and chronic skin changes including erythema and slight hyperpigmentation without ulcerations. Fair capillary refill. Skin: Normal color, warm and dry with actinic changes over sun exposed areas. Neuro: Cranial nerves II through XII gross intact, no focalizing motor deficits. No tremor. Psych: Normal slightly euphoric affect. Mood normal. No abnormal thought processes. Remote memory very intact with recent memory less intact. Patient presently is not delusional with only slight confusion but a very poor historian. Results Imaging Imaging Studies: Exam: CT Abdomen And Pelvis Without Contrast Exam date and time: 08/05/2024 12:37 AM Age: 79 years old Clinical indication: Other: HX of obstruction, eval for obs TECHNIQUE: Imaging protocol: Computed tomography of the abdomen and pelvis without contrast. Other contrast: Oral, omni 350 , 946; COMPARISON: CT CHEST/ABD/PEL W 07/28/2024 8:07 PM FINDINGS: Lungs: Atelectatic changes in both lower lobes. Heart: Mild pericardial effusion. Liver: Post tips. Nodular contour of the liver, consistent with cirrhosis. Gallbladder and biliary ducts: Normal. No calcified stones. No ductal dilation. Pancreas: Normal. No ductal dilation. Spleen: Enlarged spleen measuring 15.3 cm in craniocaudal dimension. Adrenal glands: Normal. No mass. Kidneys and ureters: Normal. No hydronephrosis. Stomach and bowel: Partial distal colon resection with descending colostomy. Surgical changes of right partial colectomy with ileocolic anastomosis. There is dilatation of the small bowel loops in the mid abdomen reaching 5.5 cm with contrast reaching the proximal dilated bowel loops. There is transition zone at the level of the anastomosis of the small bowel in the proximal ileum (series 7, image 116), with possible adhesion at that area. Mild small bowel wall thickening, suggestive of hepatic enteropathy. Appendix: Surgically absent. Intraperitoneal space: Unremarkable. No free air. No significant fluid collection. Vasculature: Vascular calcifications. Pelvic phleboliths. Lymph nodes: Unremarkable. No enlarged lymph nodes. Urinary bladder: Unremarkable as visualized. Reproductive: Unremarkable as visualized. Bones/joints: Mild degenerative disease of bilateral sacroiliac joints, pubis and bilateral hip joints. Multilevel posterior osteophyte disc complex of the lumbar spine, most pronounced at L4-L5 and L5-S1 with mild bony canal stenosis. Soft tissues: Bilateral fat containing inguinal hernias. IMPRESSION: Small bowel obstruction with transition zone at the proximal ileum, likely related to adhesions. No perforation. Labs 08/04/24 23:10 08/04/24 23:10 Labs: Laboratory Results - last 24 hr 08/04/24 23:10 WBC 4.51 RBC 3.61 L Hgb 10.8 L Hct 33.1 L MCV 92 MCH 29.9 MCHC 32.6 RDW 17.5 H Plt Count 67 L MPV 11.3 H Immature Gran % 0.2 Neutrophils % 73.2 Lymphocytes % 11.8 Monocytes % 8.6 Eosinophils % 5.5 Basophils % 0.7 Nucleated RBC % 0.0 Absolute Neutrophils 3.30 Absolute Lymphocytes 0.53 L Absolute Monocytes 0.39 Absolute Eosinophils 0.25 Absolute Basophils 0.03 RBC Morphology Normal Sodium 148 H Potassium 3.5 Chloride 110 H Carbon Dioxide 24.9 Anion Gap 13.1 H BUN 13 Creatinine 1.2 Est GFR (CKD-EPI 2020) 62.29 Glucose 149 H Calcium 9.3 Total Bilirubin 1.58 H AST 40 H ALT 23 Alkaline Phosphatase 125 H Total Protein 6.6 Albumin 3.0 L Lipase 82 H Last Vital Signs Temp 36.8 C 08/04/24 23:14 Pulse 92 H 08/05/24 02:16 Resp 14 08/05/24 02:16 BP 177/73 H 08/05/24 02:16 Pulse Ox 94 08/05/24 02:16 Time Spent Time spent with Patient: >75 minutes Time was spent: preparing to see the patient(eg.review tests), obtaining and/or reviewing separately otained hiistory, ordering medications,tests, procedures, referring, communicating with other health patient care technician, indepentently interpreting results, counseling the patient and care coordination
[2024-08-05] MEDS: Rifaximin 550 MG TAB PO ×2 (09:09→19:51)
[2024-08-05] MEDS: Pregabalin 50 MG CAP PO ×2 (09:09→19:49)
[2024-08-05] MEDS: Losartan 50 MG TAB PO ×2 (09:09→19:51)
[2024-08-05] MEDS: Apixaban 5 MG TAB PO ×2 (09:09→19:49)
[2024-08-05] MEDS: Venlafaxine 150 MG CAPCR PO (09:09)
[2024-08-05] MEDS: Empaglifozin 25 MG TAB PO (09:09)
[2024-08-05] MEDS: Tamsulosin 0.4 MG CAPCR PO (09:09)
[2024-08-05 09:11] LABS: HCT 33.9 % (40.0-50.0); HGB 11.4 g/dL (13.5-17.5); MCH 30.6 pg (27.0-33.0); MCHC 33.6 % (32.0-36.0); MCV 91 fL (80-95); MPV 11.4 fL (8.0-11.0); RBC 3.73 10^6/uL (4.36-5.78); RDW 17.7 % (11.8-14.1); RDW-SD 58.7 fL; WBC 6.85 10^3/uL (4.4-10.8)
[2024-08-05 10:14] LABS: INR 1.2 (0.9-1.1); Prothrombin Time 12.3 sec (9.1-11.1)
[2024-08-05 10:17] LABS: Albumin 2.8 g/dL (3.4-5.0); BUN 11 mg/dL (7-18); Calcium 9.1 mg/dL (8.5-10.1); Estimated GFR 77.52 (mL/min/1.73m2); Glucose 122 mg/dL (74-106); Total Protein 6.2 g/dL (6.4-8.2)
[2024-08-05 10:18] LABS: ALT 22 U/L (16-63); AST 35 U/L (15-37); Alkaline Phosphatase 119 U/L (46-116); Anion Gap 12.9 mmol/L (3-11); Bilirubin, Total 1.83 mg/dL (0.2-1.0); CO2 24.1 mmol/L (21.0-32.0); Chloride 110 mmol/L (98-107); Magnesium 1.8 mg/dL (1.8-2.4); Potassium 3.7 mmol/L (3.5-5.1); Sodium 147 mmol/L (136-145)
[2024-08-05 10:46] LABS: Platelet Count 65 10^3/uL (130-400)
--- NOTE | 2024-08-05 10:52 | W.PM.PROGNOT ---
Date of Service Date of service: 08/05/24 Time of Service: 10:52 Assessment and Plan Assessment and plan (1) Small bowel obstruction: Start date: 08/05/24 Status: Acute Assessment and plan: -recurrent small bowel status post hemicolectomy. -poor surgical candidate due to multiple comorbidities -started IV hydration which is now discontinued as patient has large BM and General Surgery removed his NG tube -started on clear liquids as per General Surgery -will coordinatediet advanced with General Surgery and plan for discharge once tolerating regular diet (2) Dehydration with hypernatremia: Start date: 08/05/24 Status: Acute Assessment and plan: -was on IV hydration with normal saline at 150 cc an hour, discontinued as noted above (3) Chronic heart failure with reduced ejection fraction (HFrEF, <= 40%): Status: Chronic Assessment and plan: -Hold diuretics but continue other medications as tolerated. Treat hypertension. (4) Thrombocytopenia: Status: Chronic Assessment and plan: -Chronic and stable with patient on Eliquis but not candidate for DVT prophylaxis. (5) Cirrhosis of liver without ascites: Status: Chronic Assessment and plan: -Does most symptoms with recurrent encephalopathy on lactulose chronically. -Take lactulose as tolerated once bowel obstruction is resolving. Qualifiers: Hepatic cirrhosis type: unspecified hepatic cirrhosis Qualified Code(s): K74.60 - Unspecified cirrhosis of liver (6) PAF (paroxysmal atrial fibrillation): Status: Chronic Assessment and plan: Continue medical therapy and Eliquis chronically. Subjective Subjective Interval history since last seen: Patient states that he is feeling better now that his NG tube been removed. He has no other complaints or concerns at this time. Exam Narrative Exam Narrative: Chronically ill-appearing gentleman laying in bed in no acute distress, ANO x 4, heart regular rhythm, lungs clear to auscultation bilaterally, abdomen soft, with mild diffuse tenderness Objective Last Vital Signs Temp 98.4 F 08/05/24 09:02 Pulse 86 08/05/24 09:54 Resp 19 08/05/24 09:02 BP 151/77 H 08/05/24 09:02 Pulse Ox 94 08/05/24 09:02 Laboratory Results - last 24 hr 08/04/24 08/05/24 23:10 06:15 WBC 4.51 6.85 RBC 3.61 L 3.73 L Hgb 10.8 L 11.4 L Hct 33.1 L 33.9 L MCV 92 91 MCH 29.9 30.6 MCHC 32.6 33.6 RDW 17.5 H 17.7 H Plt Count 67 L 65 L MPV 11.3 H 11.4 H Immature Gran % 0.2 Neutrophils % 73.2 Lymphocytes % 11.8 Monocytes % 8.6 Eosinophils % 5.5 Basophils % 0.7 Nucleated RBC % 0.0 Absolute Neutrophils 3.30 Absolute Lymphocytes 0.53 L Absolute Monocytes 0.39 Absolute Eosinophils 0.25 Absolute Basophils 0.03 RBC Morphology Normal PT 12.3 H INR 1.2 H Sodium 148 H 147 H Potassium 3.5 3.7 Chloride 110 H 110 H Carbon Dioxide 24.9 24.1 Anion Gap 13.1 H 12.9 H BUN 13 11 Creatinine 1.2 1.0 Est GFR (CKD-EPI 2020) 62.29 77.52 Glucose 149 H 122 H Calcium 9.3 9.1 Magnesium 1.8 Total Bilirubin 1.58 H 1.83 H AST 40 H 35 ALT 23 22 Alkaline Phosphatase 125 H 119 H Total Protein 6.6 6.2 L Albumin 3.0 L 2.8 L Lipase 82 H Time Spent with Patient Time Spent with Patient: >50 minutes Time was spent: preparing to see the patient(eg.review tests), obtaining and/or reviewing separately otained hiistory, ordering medications,tests, procedures, referring, communicating with other health health care marketing manager, indepentently interpreting results, counseling the patient and care coordination
--- NOTE | 2024-08-05 11:38 | INITIAL_ITS ---
Date of service: 08/05/24 Time of Service: 11:38 Care Management Initial Assmt Initial Assessment Reason for Hospitalization: small bowel obstruction He had no output in his colostomy for over 24h. Functional Status/Living Situation Patient Presentation: Merrill presented to the ER last night with complaints of no output in his colostomy for over 24hours. He was started on IVF in the ER, and an NGT was passed. He was kept NPO. This morning, Merrill had a large BM and was feeling better. The NGT was d/c'd after the BM, and the IVF were stopped later in the afternoon. Merrill was sitting on the edge of the bed enjoying a clear liquid lunch when CM met with him. He stated that he is feeling much better, and asked for some ice cream. He stated that this happens to him often, since he had his hemicolectomy. Town of Residence: [place] Resides with: Spouse (Lives with his ,Cely and his son,) Significant Other/Family: Out of area (family in [place]) Natural Supports: His and son are his biggest supports Employment Status: Retired Instrumental Activities of Daily Living (ADLs): Independent Physical Functioning/Mobility Assistive Device: Merrill uses a walker. Advance Directives Advance Directives: Do you have an Advance Directive: Y 08/05/24 02:24 AD On File at [facility]: N 08/05/24 10:22 Date Asked 08/05/24 08/05/24 10:22 AD Date Reviewed COLST On File at [facility] No 12/04/23 16:58 COLST Date Scanned Code Status Resuscitation Status Full Code Insurance Coverage/Financial Issues Insurance: Medicare and VA Care Team Visit Care Team Role Provider Type Maryann Whitt Primary Care Provider NURSE PRACTITIONER Frantz Berg MD Other Providers [facility] STAFF PHYSICIAN Js Johns DO Emergency Provider [facility] STAFF PHYSICIAN Phoenix Jim Admit Provider NON-[facility] STAFF PHYSICIAN Attending Provider Discharge Potential Discharge Needs: PCP F/U Appt Anticipated Barriers to Discharge: None Identified Patient/Family Education Needs: Review discharge instructions, discuss Ask Me Three Plan: Anticipate that Merrill will return home with the resumption of his HH RN and new orders for PT. He will f/u with his PCP and possibly the surgeon. He feels his son will be able to pick him up, but if the timing is not right, he will need an RCT ride. [facility] All Active Problems (Updated 08/05/24 @ 04:30 by Phoenix Jim) Dehydration with hypernatremia (Acute) Small bowel obstruction (Acute) Acute hypokalemia (Acute) Family conflict (Acute) Chest pain in adult (Acute) Fall (Acute) Chronic heart failure with reduced ejection fraction (HFrEF, <= 40%) (Chronic) Anemia (Chronic) Thrombocytopenia (Chronic) Colostomy care (Acute) Chronic low back pain (Chronic) Hematuria (Acute) Cirrhosis of liver without ascites (Chronic) Elevated troponin level not due myocardial infarction (Acute) Diabetes (Chronic) Leukopenia (Acute) Oral candidiasis (Acute) Sepsis syndrome (Acute) PAF (paroxysmal atrial fibrillation) (Chronic) Gram-negative bacteremia (Acute) Cellulitis (Acute) Lower urinary obstructive symptom (Acute) Anemia of chronic disease (Acute) Thrombocytopenia (Chronic) Ventricular ectopy (Acute) Sinus bradycardia (Acute) Leukocytosis (Acute) Hypertension (Chronic) Elevated lactic acid level (Acute) CHF (congestive heart failure) (Chronic) No-show for appointment (Acute) Left rotator cuff tear (Acute) Acute UTI (urinary tract infection) (Acute) Weakness (Acute) Non-ST elevation [place] (NSTEMI) (Acute) Pre-syncope (Acute) Frequent falls (Acute) Orthostatic hypotension (Acute) Chronic atrial fibrillation (Chronic) Type 2 diabetes mellitus (Chronic) Hypokalemia (Acute) Bradycardia (Acute) Multiple falls (Acute) Acute metabolic encephalopathy (Acute) Medication monitoring encounter (Acute) ANETTE (obstructive sleep apnea) (Chronic) Chest pain (Acute) CHF exacerbation (Acute) CHF (congestive heart failure) (Chronic) EF 25%- 2023 Medical History Goals of care, counseling/discussion Lactic acidosis UTI (urinary tract infection) Urinary tract infection Advanced care planning/counseling discussion Palliative care encounter Followed by [facility] Bowel obstruction Sepsis Heart failure with reduced ejection fraction Hypothyroidism Small bowel obstruction Lactic acid acidosis Creatinine elevation Acute UTI Anticoagulated COVID Recurrent intestinal obstruction History of colon cancer Chronic anticoagulation Portal hypertension Cirrhosis TIPs placed (?when, [facility]? 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, Dx [facility] as per pt Non-insulin dependent type 2 diabetes mellitus Incontinence Hypertension Scleral icterus Surgical History S/P TIPS (transjugular intrahepatic portosystemic shunt) H/O left hemicolectomy Colostomy in place Social History Smoking/Tobacco Use Status: Former Tobacco Use Smoking risk assessment performed?: Yes Alcohol Intake: former Drug use: Never Substance use type: does not use Housing: house Do you feel safe at home: Yes Do you feel safe in your relationship?: Yes Additional Social history: Lives with , son, and sick [id number] in [place], moved up from [place] in 2019. [place]. Readmission Within the Past 30 Days Yes or No: No (discarged 07/05, readmitted 08/05 for different reason) SDOH(Care Management) Screening Will the Patient Participate in the Screening?: Yes Do you worry about having a steady place to live?: no Problems where you live: no known problems In the past 12 months, have you had to go without electric, gas, oil or water in your home?: no Have you or anyone in your house had to go without enough food to eat?: no Has lack of transportation kept you from medical appointments or from doing things needed for daily living?: no Has anyone in your support network made you feel unsafe for any reason?: no Anticipated HH Services Anticipated HH Services at Discharge [facility] Res[facility], [facility].
--- NOTE | 2024-08-05 11:53 | PGE_ITS ---
Date of Service Date of service: 08/05/24 Time of Service: 11:53 Assessment and Plan Assessment and plan (1) Hypertension: Status: Chronic Qualifiers: Hypertension type: primary hypertension Qualified Code(s): I10 - Essential (primary) hypertension (2) CHF (congestive heart failure): Status: Chronic Qualifiers: Heart failure type: diastolic Heart failure chronicity: chronic Qualified Code(s): I50.32 - Chronic diastolic (congestive) heart failure (3) Non-ST elevation [place] (NSTEMI): Status: Acute (4) PAF (paroxysmal atrial fibrillation): Status: Chronic (5) Diabetes: Status: Chronic (6) Cirrhosis of liver without ascites: Status: Chronic Qualifiers: Hepatic cirrhosis type: unspecified hepatic cirrhosis Qualified Code(s): K74.60 - Unspecified cirrhosis of liver (7) Colostomy care: Status: Acute (8) Small bowel obstruction: Status: Acute Assessment and plan: -appears to be resolved at this time. Pt has hx of chronic SBO due to scarring from APR will follow peripherally (9) Anemia of chronic disease: Status: Acute (10) ANETTE (obstructive sleep apnea): Status: Chronic Subjective Subjective Interval history since last seen: pt has been passing gas and a large amount of stool. minimal output from NGT will d/c NGT and start on diet surgery will follow peripherally Objective Last Vital Signs Temp 36.7 C 08/05/24 11:11 Pulse 79 08/05/24 11:11 Resp 18 08/05/24 11:11 BP 135/75 08/05/24 11:11 Pulse Ox 94 08/05/24 11:11 Laboratory Results - last 24 hr 08/04/24 08/05/24 23:10 06:15 WBC 4.51 6.85 RBC 3.61 L 3.73 L Hgb 10.8 L 11.4 L Hct 33.1 L 33.9 L MCV 92 91 MCH 29.9 30.6 MCHC 32.6 33.6 RDW 17.5 H 17.7 H Plt Count 67 L 65 L MPV 11.3 H 11.4 H Immature Gran % 0.2 Neutrophils % 73.2 Lymphocytes % 11.8 Monocytes % 8.6 Eosinophils % 5.5 Basophils % 0.7 Nucleated RBC % 0.0 Absolute Neutrophils 3.30 Absolute Lymphocytes 0.53 L Absolute Monocytes 0.39 Absolute Eosinophils 0.25 Absolute Basophils 0.03 RBC Morphology Normal PT 12.3 H INR 1.2 H Sodium 148 H 147 H Potassium 3.5 3.7 Chloride 110 H 110 H Carbon Dioxide 24.9 24.1 Anion Gap 13.1 H 12.9 H BUN 13 11 Creatinine 1.2 1.0 Est GFR (CKD-EPI 2020) 62.29 77.52 Glucose 149 H 122 H Calcium 9.3 9.1 Magnesium 1.8 Total Bilirubin 1.58 H 1.83 H AST 40 H 35 ALT 23 22 Alkaline Phosphatase 125 H 119 H Total Protein 6.6 6.2 L Albumin 3.0 L 2.8 L Lipase 82 H Time Spent with Patient Time Spent with Patient: <25 minutes Time was spent: preparing to see the patient(eg.review tests), obtaining and/or reviewing separately otained hiistory, ordering medications,tests, procedures, referring, communicating with other health ocular care technologist, indepentently interpreting results, counseling the patient, care coordination and other
--- NOTE | 2024-08-05 12:40 | PHACLINREV_ITS ---
Pharmacy Admission Review Admission Clinical Review Admission Pharmacy Review: Dehydration with hypernatremia (Acute) Small bowel obstruction (Acute) Colostomy care (Acute) Anemia of chronic disease (Acute) Non-ST elevation [place] (NSTEMI) (Acute) Penicillins Allergy (Mild, Verified 08/04/24 23:15) Itching morphine Adverse Reaction (Severe, Verified 08/04/24 23:15) vomiting Resuscitation Status Full Code Height 5 ft 7 in Weight 106.141 kg Comments Comments/Follow Ups: NG tube was removed this AM and trialing PO diet. If patient tolerates then he might be discharged later today. Pharmacy Admission Review Renal Dosing Renal Dosing: BUN 11 mg/dL (7-18) 08/05/24 06:15 Creatinine 1.0 mg/dL (0.70-1.30) 08/05/24 06:15 Medications needing adjustments: Reviewed (CrCl 71.85 mL/min) List of meds needing interventions: Current medications are okay Anticoagulation Anticoagulation: Hgb 11.4 g/dL (13.5-17.5) L 08/05/24 06:15 Hct 33.9 % (40.0-50.0) L 08/05/24 06:15 Plt Count 65 10^3/uL (130-400) L 08/05/24 06:15 INR 1.2 (0.9-1.1) H 08/05/24 06:15 Creatinine 1.0 mg/dL (0.70-1.30) 08/05/24 06:15 DVT Prophylaxis: Reviewed (Hgb increased from 10.8, PLT decreased from 67) Medications: Apixaban (5mg PO BID) Opiate Usage Evaluate Pain Scale/Pains Meds: Reviewed (fentanyl IVP PRN - no doses given) Scheduled Bowel Reg ordered if on Opiates?: No (PRN docusate/Miralax) Relevant Labs Relevant Labs: Sodium 147 mmol/L (136-145) H 08/05/24 06:15 Potassium 3.7 mmol/L (3.5-5.1) 08/05/24 06:15 Chloride 110 mmol/L (98-107) H 08/05/24 06:15 Magnesium 1.8 mg/dL (1.8-2.4) 08/05/24 06:15 Electrolytes, C-Reactive P, ESR: Reviewed (Na decreased from 148) DM Control DM Control: Glucose 122 mg/dL (74-106) H 08/05/24 06:15 Finger Stick Blood Glucose 115 1205 Finger Stick Blood Glucose 115 1205 Finger Stick Blood Glucose 123 0756 Finger Stick Blood Glucose 123 0756 DM Control: Reviewed Insulin Dosing, Diabetic Medication: Has order for SS insulin and Jardiance 50mg PO daily Cardiac Review Cardiac Review: Blood Pressure 135/75 1111 Blood Pressure 151/77 0902 Blood Pressure 177/73 0216 Blood Pressure 196/103 0201 Blood Pressure 195/83 0146 Blood Pressure 185/88 0132 BP, HR, EF%: Reviewed (HR WNL) List meds needing interventions: Has order for patients own carvedilol ER 10mg daily and losartan 50mg BID QTc Review QTc: Reviewed (498 from 07/28/24) IV to PO Switch IV Medications: Reviewed (fentanyl and ondansetron) Home Meds Home Med List reviewed: Intervened Relevent Home Meds Not ordered & why?: Vitamin D, ferrous sulfate, furosemide (on hold per H+P), glargine (has order for SS), lactulose (on hold per H+P), metformin (has order for SS) and spironolactone (on hold per H+P) Changed carvedilol to patients own (non-formulary) and called nursing. Per nursing patient may leave tonight, if he doesn't then they will call the family. Patient takes at night. I confirmed patients Lyrica dosing on VPMS Current Meds Current Medication Order Review: Intervened Comments: Added IV admission order set Put prazosin order on hold - avoid combination with tamsulosin due to hypotensive effects. I reached out to provider to make sure they are aware. Waiting to hear back. Comments Comments/Follow Ups: NG tube was removed this AM and trialing PO diet. If pat ient tolerates then he might be discharged later today.
[2024-08-05] MEDS: Insulin Aspart 300 UNITS/3 ML PEN SC (18:22)
[2024-08-05] MEDS: Melatonin 3 MG TAB PO (19:49)
[2024-08-05] MEDS: Rosuvastatin 20 MG TAB 40 MG PO (19:50)
[2024-08-05] MEDS: Normal Saline Flush 10 ML SYR IVP (19:52)
[2024-08-06 03:03] VITALS: BP 137/73; PULSE 69; RESP 14; TEMP 37.4; O2SAT 93
[2024-08-06] MEDS: Levothyroxine 100 MCG TAB PO (05:55)
[2024-08-06 07:33] LABS: HCT 34.2 % (40.0-50.0); HGB 11.3 g/dL (13.5-17.5); MCH 30.3 pg (27.0-33.0); MCV 92 fL (80-95); MPV 11.1 fL (8.0-11.0); RBC 3.73 10^6/uL (4.36-5.78); RDW 17.5 % (11.8-14.1); RDW-SD 59.3 fL; WBC 5.82 10^3/uL (4.4-10.8)
[2024-08-06 07:44] LABS: Anion Gap 11.2 mmol/L (3-11); BUN 7 mg/dL (7-18); CO2 24.8 mmol/L (21.0-32.0); Calcium 9.2 mg/dL (8.5-10.1); Chloride 110 mmol/L (98-107); Estimated GFR 77.52 (mL/min/1.73m2); Glucose 131 mg/dL (74-106); Potassium 3.5 mmol/L (3.5-5.1); Sodium 146 mmol/L (136-145)
[2024-08-06 07:51] LABS: Platelet Count 85 10^3/uL (130-400)
[2024-08-06 07:53] VITALS: BP 160/87; PULSE 80; RESP 15; TEMP 36.5; O2SAT 96
--- NOTE | 2024-08-06 08:49 | PCNE_ITS ---
Date of service: 08/06/24 Time of Service: 08:57 History of Present Illness Narrative: Merrill was seen in his hosptial room. He was alone at the time of the visit. He was sitting up in bed, awake and alert, engaged in the visit. He has been seen during previous hospitalizations by Dr. Damian. Dr. Damian's note indicates that he is followed by [facility] as an outpatient. He was not sure, he said he sees a lot of people and is not sure who everyone is. He is currently admitted for SBO. He reports that he has had multiple obstructions (he reports 30). He has ostomy. He is feeling better. He had a large BM yesterday. He is tolerating his diet. He has HFrEF. His LVEF was 25% in 01/2024, down from 50-55% the year before (11/2022). He is SOB at rest at times on a good day. He has increased SOB with activity, he also has chronic back pain that bothers him so much that he can only walk short distances before he has to stop to rest. He reports that he is weak and unsteady on ambulation. He uses a walker or cane to get around. He prefers walker. He also has a battery operated scooter. He fell about a week ago at home. He has had a couple of falls in the last few months. He has nitro at home, he took one a couple of weeks ago. He reports that he has been told he has a liver lesion that may be cancer. I do not see this on imaging that he had yesterday. He said he is awaiting a Bx. He completed [facility] paperwork with Dr. Damian. He named his , Clary to be his HCA and his son, Osmar Orellana JR to be his alternate agent. CODE Status discussed- he states, my convinced me that she wants me to live. We reviewed reviewed indications for resuscitation as well as the nature of CPR. His has narcolepsy so she cannot drive. They have to rely on others for rides. He is not supposed to drive. Their son can drive. Their son, merrill lives with them. Assessment and Plan Assessment and plan (1) Small bowel obstruction: Status: Acute Assessment and plan: With ostomy. Recurrent bowel obstructions. Resolved. Had large BM yesterday. Tolerating diet today. Likely for discharge today. (2) Chronic heart failure with reduced ejection fraction (HFrEF, <= 40%): Status: Chronic Assessment and plan: LVEF 25% 01/2024. He has SOB at rest at times, worse with activity and edema. He can only walk short distances. (3) Colostomy care: Status: Acute (4) Cirrhosis of liver without ascites: Status: Chronic Assessment and plan: He reports that he has a liver lesion that may be cancer, no Bx- I do not see this on his imaging from this visit. Qualifiers: Hepatic cirrhosis type: unspecified hepatic cirrhosis Qualified Code(s): K74.60 - Unspecified cirrhosis of liver (5) Diabetes: Status: Chronic (6) PAF (paroxysmal atrial fibrillation): Status: Chronic Assessment and plan: on AC. (7) Frequent falls: Status: Acute (8) Palliative care encounter: Assessment and plan: Merrill is a very pleasant 79 year old man with multiple comorbidities including recurrent SBO (for which he is currently hospitalized), colostomy, HFrEF (25% 01/2024), cirrhosis (he mentioned possible liver cancer), falls, PAF on AC, NSTEMI, HTN, DM2, ANETTE, agent orange exposure. His SBO has resolved. He is feeling better and likely for discharge today. He is apparently followed by [facility] but he could not confirm this. He has been seen during hospitalizations in the past by Dr. Damian. He is a FULL CODE, this was reviewed. He will benefit from ongoing discussion re: CODE STATUS. He has HCA paperwork that names his , Clary as HCA and his son, Osmar RAMOS as alternate agent. Will offer f/u [facility]. [facility], [facility] will see him when he is in the hospital. Review of Systems Narrative: Per HPI PFSH All Active Problems (Updated 08/05/24 @ 04:30 by Phoenix Jim) Dehydration with hypernatremia (Acute) Small bowel obstruction (Acute) Acute hypokalemia (Acute) Family conflict (Acute) Chest pain in adult (Acute) Fall (Acute) Chronic heart failure with reduced ejection fraction (HFrEF, <= 40%) (Chronic) Anemia (Chronic) Thrombocytopenia (Chronic) Colostomy care (Acute) Chronic low back pain (Chronic) Hematuria (Acute) Cirrhosis of liver without ascites (Chronic) Elevated troponin level not due myocardial infarction (Acute) Diabetes (Chronic) Leukopenia (Acute) Oral candidiasis (Acute) Sepsis syndrome (Acute) PAF (paroxysmal atrial fibrillation) (Chronic) Gram-negative bacteremia (Acute) Cellulitis (Acute) Lower urinary obstructive symptom (Acute) Anemia of chronic disease (Acute) Thrombocytopenia (Chronic) Ventricular ectopy (Acute) Sinus bradycardia (Acute) Leukocytosis (Acute) Hypertension (Chronic) Elevated lactic acid level (Acute) CHF (congestive heart failure) (Chronic) No-show for appointment (Acute) Left rotator cuff tear (Acute) Acute UTI (urinary tract infection) (Acute) Weakness (Acute) Non-ST elevation [place] (NSTEMI) (Acute) Pre-syncope (Acute) Frequent falls (Acute) Orthostatic hypotension (Acute) Chronic atrial fibrillation (Chronic) Type 2 diabetes mellitus (Chronic) Hypokalemia (Acute) Bradycardia (Acute) Multiple falls (Acute) Acute metabolic encephalopathy (Acute) Medication monitoring encounter (Acute) ANETTE (obstructive sleep apnea) (Chronic) Chest pain (Acute) CHF exacerbation (Acute) CHF (congestive heart failure) (Chronic) EF 25%- 2023 Medical History Goals of care, counseling/discussion Lactic acidosis UTI (urinary tract infection) Urinary tract infection Advanced care planning/counseling discussion Palliative care encounter [facility] by [facility] Bowel obstruction Sepsis Heart failure with reduced ejection fraction Hypothyroidism Small bowel obstruction Lactic acid acidosis Creatinine elevation Acute UTI Anticoagulated COVID Recurrent intestinal obstruction History of colon cancer Chronic anticoagulation Portal hypertension Cirrhosis TIPs placed (?when, [facility] [place] 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, Dx [facility] as per pt Non-insulin dependent type 2 diabetes mellitus Incontinence Hypertension Scleral icterus Surgical History S/P TIPS (transjugular intrahepatic portosystemic shunt) H/O left hemicolectomy Colostomy in place Social History Smoking/Tobacco Use Status: Former Tobacco Use Smoking risk assessment performed?: Yes Alcohol Intake: former Drug use: Never Substance use type: does not use Housing: house Do you feel safe at home: Yes Do you feel safe in your relationship?: Yes Additional Social history: Lives with , son, and sick [id number] in [place], moved up from [place] in 2020. [place] . Exam Narrative Exam Narrative: General: very pleasant, well-nourished, older man, laying in bed with HOB elevated. He is awake, alert and oriented. HEENT: normocephalic, atraumatic, EOMI, mmm, missing top teeth Neck: supple Cardiovascular: Heart sounds regular, nontachycardic Respiratory: slightly increased WOB while talking, lungs sound clear bilaterally GI: +BS, abd softly distended, nontender on gentle palpation Ext: trace edema to BLEs Results Last Vital Signs Temp 36.5 C 08/06/24 07:53 Pulse 80 08/06/24 07:53 Resp 15 08/06/24 07:53 BP 160/87 H 08/06/24 07:53 Pulse Ox 96 08/06/24 07:53 Labs 08/06/24 06:40 08/06/24 06:40 Labs: Laboratory Results - last 24 hr 08/05/24 08/06/24 06:15 06:40 WBC 6.85 5.82 RBC 3.73 L 3.73 L Hgb 11.4 L 11.3 L Hct 33.9 L 34.2 L MCV 91 92 MCH 30.6 30.3 MCHC 33.6 33.0 RDW 17.7 H 17.5 H Plt Count 65 L 85 L MPV 11.4 H 11.1 H PT 12.3 H INR 1.2 H Sodium 147 H 146 H Potassium 3.7 3.5 Chloride 110 H 110 H Carbon Dioxide 24.1 24.8 Anion Gap 12.9 H 11.2 H BUN 11 7 Creatinine 1.0 1.0 Est GFR (CKD-EPI 2020) 77.52 77.52 Glucose 122 H 131 H Calcium 9.1 9.2 Magnesium 1.8 Total Bilirubin 1.83 H AST 35 ALT 22 Alkaline Phosphatase 119 H Total Protein 6.2 L Albumin 2.8 L Time Spent Time Spent with Patient Time Spent(min): 74
[2024-08-06] MEDS: Rifaximin 550 MG TAB PO (09:13)
[2024-08-06] MEDS: Venlafaxine 150 MG CAPCR PO (09:13)
[2024-08-06] MEDS: Pregabalin 50 MG CAP PO (09:13)
[2024-08-06] MEDS: Losartan 50 MG TAB PO (09:13)
[2024-08-06] MEDS: Empaglifozin 25 MG TAB PO (09:13)
[2024-08-06] MEDS: Apixaban 5 MG TAB PO (09:13)
[2024-08-06] MEDS: Tamsulosin 0.4 MG CAPCR PO (09:13)
[2024-08-06] MEDS: Normal Saline Flush 10 ML SYR IVP (09:14)
[2024-08-06] MEDS: Clobetasol 0.05% CREAM 15 GM TUBE TP (09:15)
--- NOTE | 2024-08-06 11:45 | W.PM.DS.N ---
Date of service: 08/06/24 Time of Service: 12:17 DS: Diagnosis Discharge Diagnosis (1) Small bowel obstruction: Status: Acute (2) Dehydration with hypernatremia: Status: Acute (3) Chronic heart failure with reduced ejection fraction (HFrEF, <= 40%): Status: Chronic (4) Thrombocytopenia: Status: Chronic (5) Cirrhosis of liver without ascites: Status: Chronic (6) PAF (paroxysmal atrial fibrillation): Status: Chronic Discharge Plan Disposition Patient Disposition: Home W/Home Health Services Condition: Good Discharge Details Reason For Visit: SOB, Dehydration with hypernatremia Admit Date/Time: 08/05/24 01:43 Admit Provider: Phoenix Jim Attending Provider: Phoenix Jim Primary Care Provider: Maryann Whitt Hospital Course Hospital Course: Patient initially presented with signs and symptoms consistent with a small bowel obstruction. He was evaluated by surgery who determined the patient was not a surgical candidate given multiple comorbid conditions in combination with history of multiple similar episodes that resolve with NG tube placement. Ultimately, patient had bowel movement into ostomy on the morning of 08/05/2024 at which time NG tube was removed and patient slowly had his diet advanced which she was able to tolerate without worsening abdominal pain. Ultimately, given that obstruction had resolved the patient was tolerating p.o. intake was determined that he was stable for discharge home. Home Meds and New Rx's Prescriptions: Continued pantoprazole 40 mg Tablet,Delayed Release (Dr/Ec) 40 mg PO DAILY PRN pregabalin 50 mg Capsule 50 mg PO BID Eliquis 5 mg Tablet 5 mg PO BID nitroglycerin 0.4 mg Tablet, Sublingual 0.4 mg sublingual Q5 MIN PRN X3 PRNQty: 30 0RF miconazole nitrate 2 % Powder 1 applic TOPICAL BID PRN rifaximin 550 mg Tablet 550 mg PO BID prazosin 5 mg capsule 10 mg PO QPM tamsulosin 0.4 mg Capsule 0.4 mg PO DAILY carvedilol phosphate 10 mg capsule, ER multiphase 24 hr 10 mg PO QHS Qty: 90 1RF Rx Instructions: must administer with a meal/food ferrous sulfate 325 mg (65 mg iron) Tablet 325 mg PO DAILY empagliflozin 25 mg Tablet 25 mg PO DAILY levothyroxine 200 mcg Tablet 100 mcg PO QAM Qty: 0 0RF cholecalciferol (vitamin D3) 25 mcg (1,000 unit) capsule 25 mcg PO DAILY diclofenac sodium [Arthritis Pain (diclofenac)] 1 % gel 2 g topical QID PRN Rx Instructions: apply to single elbow, wrist or hand; for hand includes palm/fingers/back of hand losartan 50 mg tablet 50 mg PO BID venlafaxine 150 mg capsule,extended release 24hr 150 mg PO DAILY rosuvastatin [Crestor] 20 mg Tablet 40 mg PO QPM Qty: 0 0RF clobetasol 0.05 % cream 1 applic topical DAILY acetaminophen [Tylenol] 325 mg Capsule 975 mg PO Q8H MDD 3000 PRN metformin 500 mg tablet extended release 24hr 500 mg PO DAILY Qty: 30 0RF simethicone 80 mg tablet,chewable 80 mg PO BID-QID PRNQty: 90 0RF insulin glargine [Lantus Solostar U-100 Insulin] 100 unit/mL (3 mL) insulin pen 10 unit subcut QAM Qty: 15 0RF melatonin 3 mg Tablet 3 mg PO HS Qty: 30 0RF cefpodoxime 200 mg tablet 200 mg PO Q12H Qty: 3 0RF Rx Instructions: must administer with a meal/food spironolactone 25 mg Tablet 12.5 mg PO DAILY Qty: 30 0RF lactulose 20 gram/30 mL Solution 20 g PO TID Qty: 1800 11RF Rx Instructions: to maintain colostomy output of 3-4 bags per day furosemide 20 mg tablet 20 mg PO Q OTHER DAY Qty: 15 0RF furosemide 20 mg tablet 10 mg PO DAILY PRNQty: 7 0RF Rx Instructions: Take for increased weight of 2 pounds for 2 consecutive days or 3 pounds in 5 days. Weight yourself daily and keep a log Discharge Instructions Activity:: Activity as Tolerated Equipment/Supplies:: No Equipment Needed Diet:: As Tolerated Discharge Orders Discharge Orders: Discharge Order (Routine); Ordered 08/06/24 Ordered By: Jimenez Payne DS: Summary Time Spent with Patient providing and/or coordinating discharge services: Greater than 30 minutes Status at Discharge Functional status at discharge: independent ambulation Overall status at discharge: patient is back to baseline Mental Status: mental status grossly normal Speech and Movement: speech and movement normal Mood: congruent mood Affect: normal affect Quality:SDOH Health Related Social Needs: Health related social needs inadequate housing(Z59.1) Health related social needs details Unable to get in and out of home, ambulate or perform ADLs. Exam Narrative Exam Narrative: Chronically ill-appearing gentleman laying in bed in no acute distress, ANO x 4, heart regular rhythm, lungs clear to auscultation bilaterally, abdomen soft, non-tender, non-distended Psych Mental Status: mental status grossly normal Speech and Movement: speech and movement normal Mood: congruent mood Affect: normal affect DS: Data Vitals/I&O Vitals and I&O: Vital Signs Temperature 97.7 F 08/06/24 07:53 Temperature Source Temporal Artery Scan 08/06/24 07:53 Pulse 80 08/06/24 07:53 Pulse Rhythm Irregular 08/05/24 03:29 Pulse 91 H 08/05/24 02:16 Respiratory Rate 15 08/06/24 07:53 Respiratory Effort Normal, Non-Labored 08/05/24 03:29 Respiratory Depth Normal 08/04/24 23:56 Respiratory Pattern Normal 08/04/24 23:56 Blood Pressure 160/87 H 08/06/24 07:53 Blood Pressure Mean 101 08/05/24 02:16 Blood Pressure Position Supine 08/04/24 23:14 Pulse Oximetry 96 08/06/24 07:53 Oxygen Delivery Method Room Air 08/06/24 07:53 Oxygen Flow Rate 0 08/06/24 07:53 Pain Level 0 08/06/24 07:53 Intake & Output 08/05/24 08/06/24 08/06/24 17:59 05:59 17:59 Intake Total 1727.5 / 1727.5 1736.5 410 / 410 Output Total 600 / 600 800 / 1400 1275 / 1275 Balance 1127.5 / 1127.5 -790 / 337.5 -865 / -865 Intake: IV 1727.5 / 1727.5 1736.5 Oral 400 / 400 Output: Gastric Drainage 250 / 250 Left Nare 250 / 250 Urine 350 / 350 800 / 1150 1275 / 1275 Other: Urine Color Yellow Yellow Yellow Urine Appearance Clear Clear Clear Urine Odor None Normal Normal Stool Size Large Stool Characteristics Formed Voiding Methods Urinal Urinal Urinal Data Completed and Pending Labs on day of discharge: Labs from last 24 hours 08/06/24 06:40 WBC 5.82 RBC 3.73 L Hgb 11.3 L Hct 34.2 L MCV 92 MCH 30.3 MCHC 33.0 RDW 17.5 H Plt Count 85 L MPV 11.1 H Sodium 146 H Potassium 3.5 Chloride 110 H Carbon Dioxide 24.8 Anion Gap 11.2 H BUN 7 Creatinine 1.0 Est GFR (CKD-EPI 2020) 77.52 Glucose 131 H Calcium 9.2 PFSH All Active Problems (Updated 08/05/24 @ 04:30 by Phoenix Jim) Dehydration with hypernatremia (Acute) Small bowel obstruction (Acute) Acute hypokalemia (Acute) Family conflict (Acute) Chest pain in adult (Acute) Fall (Acute) Chronic heart failure with reduced ejection fraction (HFrEF, <= 40%) (Chronic) Anemia (Chronic) Thrombocytopenia (Chronic) Colostomy care (Acute) Chronic low back pain (Chronic) Hematuria (Acute) Cirrhosis of liver without ascites (Chronic) Elevated troponin level not due myocardial infarction (Acute) Diabetes (Chronic) Leukopenia (Acute) Oral candidiasis (Acute) Sepsis syndrome (Acute) PAF (paroxysmal atrial fibrillation) (Chronic) Gram-negative bacteremia (Acute) Cellulitis (Acute) Lower urinary obstructive symptom (Acute) Anemia of chronic disease (Acute) Thrombocytopenia (Chronic) Ventricular ectopy (Acute) Sinus bradycardia (Acute) Leukocytosis (Acute) Hypertension (Chronic) Elevated lactic acid level (Acute) CHF (congestive heart failure) (Chronic) No-show for appointment (Acute) Left rotator cuff tear (Acute) Acute UTI (urinary tract infection) (Acute) Weakness (Acute) Non-ST elevation [place] (NSTEMI) (Acute) Pre-syncope (Acute) Frequent falls (Acute) Orthostatic hypotension (Acute) Chronic atrial fibrillation (Chronic) Type 2 diabetes mellitus (Chronic) Hypokalemia (Acute) Bradycardia (Acute) Multiple falls (Acute) Acute metabolic encephalopathy (Acute) Medication monitoring encounter (Acute) ANETTE (obstructive sleep apnea) (Chronic) Chest pain (Acute) CHF exacerbation (Acute) CHF (congestive heart failure) (Chronic) EF 25%- 2023 Medical History Goals of care, counseling/discussion Lactic acidosis UTI (urinary tract infection) Urinary tract infection Advanced care planning/counseling discussion Palliative care encounter Followed by [facility] Bowel obstruction Sepsis Heart failure with reduced ejection fraction Hypothyroidism Small bowel obstruction Lactic acid acidosis Creatinine elevation Acute UTI Anticoagulated COVID Recurrent intestinal obstruction History of colon cancer Chronic anticoagulation Portal hypertension Cirrhosis TIPs placed (?when, [facility] [place] 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, Dx [facility] as per pt Non-insulin dependent type 2 diabetes mellitus Incontinence Hypertension Scleral icterus Surgical History S/P TIPS (transjugular intrahepatic portosystemic shunt) H/O left hemicolectomy Colostomy in place Social History Smoking/Tobacco Use Status: Former Tobacco Use Smoking risk assessment performed?: Yes Alcohol Intake: former Drug use: Never Substance use type: does not use Housing: house Do you feel safe at home: Yes Do you feel safe in your relationship?: Yes Additional Social history: Lives with , son, and sick [id number] in [place], moved up from [place] in 2019. [place] . Time Spent with Patient Time Spent with Patient: <45 minutes Time was spent: preparing to see the patient(eg.review tests), obtaining and/or reviewing separately otained hiistory, ordering medications,tests, procedures, referring, communicating with other health anesthesiologist and critical care, indepentently interpreting results, counseling the patient and care coordination
[2024-08-06] MEDS: Insulin Aspart 300 UNITS/3 ML PEN SC (12:45)
--- NOTE | 2024-08-06 13:37 | CMDISCH_ITS ---
Date of service: 08/06/24 Time of Service: 13:49 LACE Index Scoring Tool Questions: Length of Stay (in days): 1 Was the patient admitted via the E.D.?: Yes Comorbidities: Congestive Heart Failure, Any Tumor and Liver or Renal Disease E.D. Visits: 9 Answers: Total Score: 13 Risk of Readmission: High Risk Care Management Discharge Plan Reason for Hospitalization: bowel obstruction Discharge Plan: Merrill is discharged home today with resumption of his HH RN services. He will f/u with his provider at the [place] and continue per his plan of care. Patient/Family Education Needs: Review of discharge instructions, activity, limitations and f/u plan. Discuss ask me 3 Services Needed at Discharge: Home Health Care Services (resumption of [facility] RN) SDOH Health Related Social Needs: Health related social needs inadequate housing(Z59.1) Health related social needs details Unable to get in a nd out of home, ambulate or perform ADLs.
== END 2024-08-06 14:46 | disposition home health service (06) | DRG 389 ==
LOC: ER 08-05 02:24 → MS 08-05 02:39
PROVIDERS: Family Medicine; Admitting Provider Family Medicine; Emergency Provider Student in an Organized Health Care Education/Training Program; PCP Nurse Practitioner Adult Health; Visit Provider Family Medicine
DX: K56.609 Unspecified intestinal obstruction, unspecified as to partial versus complete obstruction (principal); E87.0 Hyperosmolality and hypernatremia; I50.22 Chronic systolic (congestive) heart failure; E86.0 Dehydration; D69.6 Thrombocytopenia, unspecified; K74.60 Unspecified cirrhosis of liver; I48.0 Paroxysmal atrial fibrillation; I11.0 Hypertensive heart disease with heart failure; E11.9 Type 2 diabetes mellitus without complications; Z43.3 Encounter for attention to colostomy; D63.8 Anemia in other chronic diseases classified elsewhere; G47.33 Obstructive sleep apnea (adult) (pediatric); R29.6 Repeated falls; Z90.49 Acquired absence of other specified parts of digestive tract; E66.9 Obesity, unspecified; Z79.01 Long term (current) use of anticoagulants; M54.50 Low back pain, unspecified; G89.29 Other chronic pain; I25.2 Old myocardial infarction; I95.1 Orthostatic hypotension; E87.6 Hypokalemia; Z79.84 Long term (current) use of oral hypoglycemic drugs; Z79.4 Long term (current) use of insulin; Z68.36 Body mass index [BMI] 36.0-36.9, adult
CPT/HCPCS: 00123; 36415; 80048; 80053; 83690; 85027; 96374; 96375; 96376; 99285; 74176; 83735; 85025; 85610; 99223; 99239; J0131; J0780; J1815; J2405; J3010; Q9967

== ENCOUNTER 2024-08-07 18:17 | Emergency (ER) | payer OTHER, SELFPAY ==
[2024-08-07] VITALS (23 sets, daily range): BP systolic 176–189; BP diastolic 80–84; PULSE 70–91; RESP 13–22; TEMP 36.4; O2SAT 94–96
--- NOTE | 2024-08-07 18:15 | RT.EKG_ITS ---
APPROVED REPORT Exam: Resting ECG Reason for Exam: Dizzy while sitting Patient Location: E HR:76 bpm ECG Measurements Heart Rate 76 AXIS SC 225 P -47 QRSd 128 QRS 21 QT 446 T 70 QTc 503 Conclusion Sinus or ectopic atrial rhythm...P axis (-45,135) Paired ventricular premature complexes...sequence of 2 V complexes Prolonged SC interval...SC >220, V-rate 50- 90 Left bundle branch block...QRSd>120, broad/notched R Sinus rhythm frequent PVCs
[2024-08-07 18:59] LABS: Abs Immature Grans 0.01 10^3/uL (0.0-0.06); Absolute Basophil Count 0.03 10^3/uL (0.0-0.2); Absolute Eosinophil Count 0.22 10^3/uL (0.0-0.7); Absolute Lymphocyte Count 0.53 10^3/uL (1.2-3.4); Absolute Monocyte Count 0.42 10^3/uL (0.1-0.8); Absolute Neutrophil Count 3.04 10^3/uL (1.2-6.7); Basophils % 0.7 %; Eosinophils % 5.2 %; HCT 34.6 % (40.0-50.0); HGB 11.4 g/dL (13.5-17.5); Immature Grans % 0.2 %; Lymphocytes % 12.5 %; MCH 30.1 pg (27.0-33.0); MCHC 32.9 % (32.0-36.0); MCV 91 fL (80-95); MPV 10.6 fL (8.0-11.0); Monocytes % 9.9 %; Neutrophils % 71.5 %; RBC 3.79 10^6/uL (4.36-5.78); RDW 17.4 % (11.8-14.1); RDW-SD 58.1 fL; WBC 4.25 10^3/uL (4.4-10.8)
[2024-08-07 19:13] LABS: ALT 21 U/L (16-63); AST 36 U/L (15-37); Albumin 3.1 g/dL (3.4-5.0); Alkaline Phosphatase 135 U/L (46-116); BUN 12 mg/dL (7-18); Bilirubin, Total 1.78 mg/dL (0.2-1.0); CREATININE 1.2 mg/dL (0.70-1.30); Chloride 109 mmol/L (98-107); Estimated GFR 62.29 (mL/min/1.73m2); Glucose 143 mg/dL (74-106); Lipase 167 U/L (16-77); Potassium 3.8 mmol/L (3.5-5.1); Sodium 146 mmol/L (136-145); Total Protein 6.7 g/dL (6.4-8.2)
[2024-08-07 19:14] LABS: Anisocytosis 1+; Diff Comment RBC Morph Reviewed; Platelet Count 71 10^3/uL (130-400)
[2024-08-07] MEDS: Omnipaque 350 MG/ML 100 ML BTL IJ (19:14)
[2024-08-07] MEDS: Normal Saline - Diluent 50 ML VIAL IJ (19:14)
--- NOTE | 2024-08-07 19:15 | DI.CT_ITS ---
Exam(s) CT ABDOMEN PELVIS W EXAM: CT ABDOMEN PELVIS W CLINICAL HISTORY: hx of colostomy, TIPS, SBO, recurrent. TECHNIQUE: Imaging Protocol: Axial computed tomography images with coronal and sagittal reformatted images were created and reviewed CONTRAST MATERIAL: Intravenous: Omnipaque-350 100cc Oral: None COMPARISON: CT CT ABDOMEN PELVIS WO from 08/05/2024 FINDINGS: VISUALIZED LUNG BASES: No nodules nor pleural effusions evident. ABDOMEN: GI: Again noted is evidence of left partial colectomy and left-sided colostomy which appear satisfact ory and there is also again evidence of partial right hemicolectomy and right sided ileocolic anastom osis which is at the level of the hepatic flexure of the colon.. Some of the small bowel loops appea rs somewhat tethered to the anterior abdominal wall most probably related to scarring. No evidence o f in anterior abdominal wall hernia containing bowel loops nor inguinal hernia containing bowel loops . There is a fecal filled loop of bowel in the center of the abdomen-pelvis which exhibits diameter of 6.4 cm and is probably a small bowel loop. LIVER: Liver again noted to be cirrhotic with a TIPS stent in place again noted small cyst in the lef t hepatic lobe again noted. GALLBLADDER/BILIARY: No obvious acute gallbladder pathology. CBD is not dilated. PANCREAS: No evidence of pancreatic mass nor dilatation of the pancreatic duct. SPLEEN: Splenomegaly again noted. No intrasplenic lesions. Splenic and portal veins are patent. Sp lenic vein diameter is 1.5 cm. ADRENALS: There are no significant adrenal masses. KIDNEYS:No cysts evident. No solid renal masses. No calculi nor hydronephrosis.. ABDOMINAL AORTA: Abdominal aorta is calcified but not enlarged. The in common iliac arteries are als o calcified but not enlarged. LYMPH NODES:There is no retroperitoneal nor paraaortic adenopathy. PELVIS: GI: Appendix surgically absent.No evidence of colonic diverticulitis.. LYMPH NODES: There is no intrapelvic nor inguinal adenopathy. REPRODUCTIVE: Prostate size upper normal. URINARY BLADDER: No calculi nor obvious masses evident OSSEOUS: No fractures and no significant osseous lesions. IMPRESSION: 1. Partial right and left hemicolectomy with left sided ostomy and right ileocolic anastomosis at the level of the a hepatic flexure. There is abundant fecal material noted throughout the colon but no evidence of obstruction of the colon. However, there are multiple tethered small bowel loops in the central abdomen in this patient has had multiple prior surgeries. There is a fecal filled loop of pr obable small bowel in the center of the abdomen-pelvis which exhibits enlarged diameter of 6.4 cm and may be clinically significant 2. Cirrhotic liver with TIPS and splenomegaly again noted. No ascites evident. 3. Other findings as above RADIATION DOSE DELIVERED: 716.6mGy.cm Total DLP DATA REPOSITORY: All CT scans at this facility are submitted to the National Radiology Data Registry (NRDR) Dose Index Registry (DIR) with the [employer] (ACR). RADIATION OPTIMIZATION: All CT scans at this facility use at least one of these dose optimization te chniques: automated exposure control; mA and/or kV adjustment per patient size (includes targeted exa ms where dose is matched to clinical indication); or iterative reconstruction.
[2024-08-07 19:18] LABS: Calcium 9.6 mg/dL (8.5-10.1)
[2024-08-07 19:51] LABS: Bilirubin Negative (Negative); Blood Trace-intact (Negative); Clarity Sl Cloudy (Clear); Glucose 250 mg/dL (Negative); Ketones Negative (Negative); Leukocyte Esterase Negative (Negative); Nitrite Positive (Negative); Specific Gravity 1.015 (1.005-1.025); pH 5.5 (5-8)
[2024-08-07 19:57] LABS: Bacteria Few HPF (Negative); C & S Indicated? Yes; Casts Negative LPF (Negative); Crystals Negative HPF (Negative); Epithelial Cells Few HPF (Negative); Mucus Negative (Negative); RBC 0-2 HPF (0-2); WBC 20-50 HPF (0-5)
--- NOTE | 2024-08-07 20:55 | ED.GENADUL_ITS ---
Discharge Plan Disposition Patient Disposition: Home Discharge Details Clinical Impression: Acute UTI, Abdominal pain, Elevated lipase Primary Care Provider: Maryann Whitt ED Provider: Irina Petersen Home Meds and New Rx's Prescriptions: New cefdinir 300 mg capsule 300 mg PO BID Qty: 20 0RF Continued pantoprazole 40 mg Tablet,Delayed Release (Dr/Ec) 40 mg PO DAILY PRN pregabalin 50 mg Capsule 50 mg PO BID Eliquis 5 mg Tablet 5 mg PO BID nitroglycerin 0.4 mg Tablet, Sublingual 0.4 mg sublingual Q5 MIN PRN X3 PRNQty: 30 0RF miconazole nitrate 2 % Powder 1 applic TOPICAL BID PRN rifaximin 550 mg Tablet 550 mg PO BID prazosin 5 mg capsule 10 mg PO QPM tamsulosin 0.4 mg Capsule 0.4 mg PO DAILY carvedilol phosphate 10 mg capsule, ER multiphase 24 hr 10 mg PO QHS Qty: 90 1RF Rx Instructions: must administer with a meal/food ferrous sulfate 325 mg (65 mg iron) Tablet 325 mg PO DAILY empagliflozin 25 mg Tablet 25 mg PO DAILY levothyroxine 200 mcg Tablet 100 mcg PO QAM Qty: 0 0RF cholecalciferol (vitamin D3) 25 mcg (1,000 unit) capsule 25 mcg PO DAILY diclofenac sodium [Arthritis Pain (diclofenac)] 1 % gel 2 g topical QID PRN Rx Instructions: apply to single elbow, wrist or hand; for hand includes palm/fingers/back of hand losartan 50 mg tablet 50 mg PO BID venlafaxine 150 mg capsule,extended release 24hr 150 mg PO DAILY rosuvastatin [Crestor] 20 mg Tablet 40 mg PO QPM Qty: 0 0RF clobetasol 0.05 % cream 1 applic topical DAILY acetaminophen [Tylenol] 325 mg Capsule 975 mg PO Q8H MDD 3000 PRN metformin 500 mg tablet extended release 24hr 500 mg PO DAILY Qty: 30 0RF simethicone 80 mg tablet,chewable 80 mg PO BID-QID PRNQty: 90 0RF insulin glargine [Lantus Solostar U-100 Insulin] 100 unit/mL (3 mL) insulin pen 10 unit subcut QAM Qty: 15 0RF melatonin 3 mg Tablet 3 mg PO HS Qty: 30 0RF cefpodoxime 200 mg tablet 200 mg PO Q12H Qty: 3 0RF Rx Instructions: must administer with a meal/food spironolactone 25 mg Tablet 12.5 mg PO DAILY Qty: 30 0RF lactulose 20 gram/30 mL Solution 20 g PO TID Qty: 1800 11RF Rx Instructions: to maintain colostomy output of 3-4 bags per day furosemide 20 mg tablet 20 mg PO Q OTHER DAY Qty: 15 0RF furosemide 20 mg tablet 10 mg PO DAILY PRNQty: 7 0RF Rx Instructions: Take for increased weight of 2 pounds for 2 consecutive days or 3 pounds in 5 days. Weight yourself daily and keep a log Discharge Instructions Instructions: Abdominal Pain, Adult ED, Urinary tract infection - Discharge instructions Additional Instructions: Take the antibiotic as prescribed for urinary tract infection, yogurt daily while on the antibiotic Have at least eight 8 ounce glasses of water daily, your lipase is slightly elevated, it is typically above normal levels but slightly higher than it typically has been in the past, I do recommend having this rechecked by your primary care physician Try to stay away from sugary food and fluids and have a low carbohydrate diet Please return should you develop new or worsening complaints including fever, chills, recurrence of symptoms Referrals: Irina Petersen PA [Emergency Provider] - Discharge Data Discharge Date/Time-TO BE ENTERED AT DEPARTURE: 08/07/24 22:11 HPI General Date/Time Provider Initiated Documentation: 08/07/24 18:33 . HPI Narrative: This 79-year-old male presents with report of abdominal pain and decreased ostomy output. Recent bowel obstruction. She was discharged on 06 August. Feels similar per patient. Denies any fever or chills. Denies any chest pain or shortness of breath. Denies any vomiting has had some intermittent nausea. Denies any blood in stool. Related Data Home Medications ?Medication ?Instructions ?Recorded ?Confirmed apixaban 5 mg tablet (Eliquis) 5 mg PO BID 11/08/22 08/07/24 pantoprazole 40 mg tablet,delayed 40 mg PO DAILY PRN 11/08/22 08/07/24 release pregabalin 50 mg capsule 50 mg PO BID 11/08/22 08/07/24 nitroglycerin 0.4 mg sublingual 0.4 mg sublingual Q5 MIN PRN X3 02/10/23 08/07/24 tablet PRN #30 tabs ferrous sulfate 325 mg (65 mg 325 mg PO DAILY 03/08/23 08/07/24 iron) tablet empagliflozin 25 mg tablet 25 mg PO DAILY 04/09/23 08/07/24 levothyroxine 200 mcg tablet 100 mcg (1/2 x 200 mcg) PO QAM #0 04/10/23 08/07/24 tabs miconazole nitrate 2 % topical 1 applic topical BID PRN 06/16/23 08/07/24 powder rifaximin 550 mg tablet 550 mg PO BID 07/07/23 08/07/24 cholecalciferol (vitamin D3) 25 25 mcg PO DAILY 03/05/24 08/07/24 mcg (1,000 unit) capsule diclofenac sodium 1 % topical gel 2 g topical QID PRN 03/05/24 08/07/24 (Arthritis Pain (diclofenac)) losartan 50 mg tablet 50 mg PO BID 03/05/24 08/07/24 venlafaxine 150 mg 150 mg PO DAILY 03/05/24 08/07/24 capsule,extended release 24 hr rosuvastatin 20 mg tablet (Crestor) 40 mg (2 x 20 mg) PO QPM #0 tabs 03/06/24 08/07/24 acetaminophen 325 mg capsule 975 mg PO Q8H PRN 05/12/24 08/07/24 (Tylenol) clobetasol 0.05 % topical cream 1 applic topical DAILY 05/12/24 08/07/24 insulin glargine 100 unit/mL (3 10 unit (0.1 mL) subcut QAM #15 mL 05/13/24 08/07/24 mL) subcutaneous pen (Lantus Solostar U-100 Insulin) metformin 500 mg tablet,extended 500 mg PO DAILY #30 tabs 05/13/24 08/07/24 release 24hr (osmotic) simethicone 80 mg chewable tablet 80 mg PO BID-QID PRN #90 tabs 05/13/24 08/07/24 cefpodoxime 200 mg tablet 200 mg PO Q12H #3 tabs 07/05/24 08/07/24 furosemide 20 mg tablet 10 mg (1/2 x 20 mg) PO DAILY PRN 07/05/24 08/07/24 #7 tabs furosemide 20 mg tablet 20 mg PO Q OTHER DAY #15 tabs 07/05/24 08/07/24 lactulose 20 gram/30 mL oral 20 g (30 mL) PO TID #1,800 mL 07/05/24 08/07/24 solution melatonin 3 mg tablet 3 mg PO HS #30 tabs 07/05/24 08/07/24 spironolactone 25 mg tablet 12.5 mg (1/2 x 25 mg) PO DAILY #30 07/05/24 08/07/24 tabs prazosin 5 mg capsule 10 mg PO QPM 08/04/24 08/07/24 tamsulosin 0.4 mg capsule 0.4 mg PO DAILY 08/04/24 08/07/24 carvedilol phosphate 10 mg 10 mg PO QHS #90 caps 08/06/24 08/07/24 capsule,[id number] multiphase cefdinir 300 mg capsule 300 mg PO BID #20 caps 08/07/24 Previous Rx's ?Medication ?Instructions ?Recorded nitroglycerin 0.4 mg sublingual 0.4 mg sublingual Q5 MIN PRN X3 02/10/23 tablet PRN #30 tabs levothyroxine 200 mcg tablet 100 mcg (1/2 x 200 mcg) PO QAM #0 04/10/23 tabs rosuvastatin 20 mg tablet (Crestor) 40 mg (2 x 20 mg) PO QPM #0 tabs 03/06/24 insulin glargine 100 unit/mL (3 10 unit (0.1 mL) subcut QAM #15 mL 05/13/24 mL) subcutaneous pen (Lantus Solostar U-100 Insulin) metformin 500 mg tablet,extended 500 mg PO DAILY #30 tabs 05/13/24 release 24hr (osmotic) simethicone 80 mg chewable tablet 80 mg PO BID-QID PRN #90 tabs 05/13/24 cefpodoxime 200 mg tablet 200 mg PO Q12H #3 tabs 07/05/24 furosemide 20 mg tablet 10 mg (1/2 x 20 mg) PO DAILY PRN 07/05/24 #7 tabs furosemide 20 mg tablet 20 mg PO Q OTHER DAY #15 tabs 07/05/24 lactulose 20 gram/30 mL oral 20 g (30 mL) PO TID #1,800 mL 07/05/24 solution melatonin 3 mg tablet 3 mg PO HS #30 tabs 07/05/24 spironolactone 25 mg tablet 12.5 mg (1/2 x 25 mg) PO DAILY #30 07/05/24 tabs carvedilol phosphate 10 mg 10 mg PO QHS #90 caps 08/06/24 capsule,[id number] multiphase cefdinir 300 mg capsule 300 mg PO BID #20 caps 08/07/24 Allergies Allergy/AdvReac Type Severity Reaction Status Date / Time Penicillins Allergy Mild Itching Verified 08/07/24 18:27 morphine AdvReac Severe vomiting Verified 08/07/24 18:27 General Stated Complaint: Abd Prob ANNA: 3 Exam Narrative Exam Narrative: Alert and oriented 79-year-old gentleman in no acute distress, bowel sounds i ntact, liquid stool noted in ostomy. No CVA tenderness, lungs clear to auscultation, cardiac rate rhythm regular, no peripheral edema Course Vital Signs Vital signs: Vital Signs Temperature 36.4 C L 08/07/24 18:18 Pulse 91 H 08/07/24 18:18 Respiratory Rate 20 08/07/24 18:18 Blood Pressure 176/84 H 08/07/24 18:18 Pulse Oximetry 94 08/07/24 18:18 Temperature 36.4 C L 08/07/24 18:24 Pulse 91 H 08/07/24 18:24 Respiratory Rate 20 08/07/24 18:24 Respiratory Effort Normal 08/07/24 18:24 Blood Pressure 176/84 H 08/07/24 18:24 Blood Pressure Position Sitting 08/07/24 18:24 Pulse Oximetry 94 08/07/24 18:24 Oxygen Delivery Method Room Air 08/07/24 18:24 Oxygen Flow Rate 0 08/07/24 18:18 Pain Level 7 08/07/24 18:24 Lab/Test Results Lab/Test Results: 08/07/24 19:43 Urine - Reflex from Ua Urine Culture - Pending Laboratory Tests Range/Units 08/07/24 08/07/24 18:48 19:43 WBC (4.4-10.8) 10^3/uL 4.25 L RBC (4.36-5.78) 10^6/uL 3.79 L Hgb (13.5-17.5) g/dL 11.4 L Hct (40.0-50.0) % 34.6 L MCV (80-95) fL 91 MCH (27.0-33.0) pg 30.1 MCHC (32.0-36.0) % 32.9 RDW (11.8-14.1) % 17.4 H Plt Count (130-400) 10^3/uL 71 L MPV (8.0-11.0) fL 10.6 Immature Gran % % 0.2 Neutrophils % % 71.5 Lymphocytes % % 12.5 Monocytes % % 9.9 Eosinophils % % 5.2 Basophils % % 0.7 Nucleated RBC % (0.0-0.3) % 0.0 Absolute Neutrophils (1.2-6.7) 10^3/uL 3.04 Absolute Lymphocytes (1.2-3.4) 10^3/uL 0.53 L Absolute Monocytes (0.1-0.8) 10^3/uL 0.42 Absolute Eosinophils (0.0-0.7) 10^3/uL 0.22 Absolute Basophils (0.0-0.2) 10^3/uL 0.03 RBC Morphology See Below Anisocytosis 1+ Sodium (136-145) mmol/L 146 H Potassium (3.5-5.1) mmol/L 3.8 Chloride (98-107) mmol/L 109 H Carbon Dioxide (21.0-32.0) mmol/L 24.0 Anion Gap (3-11) mmol/L 13.0 H BUN (7-18) mg/dL 12 Creatinine (0.70-1.30) mg/dL 1.2 Est GFR (CKD-EPI 2020) (mL/min/1.73m2) 62.29 Glucose (74-106) mg/dL 143 H Calcium (8.5-10.1) mg/dL 9.6 Total Bilirubin (0.2-1.0) mg/dL 1.78 H AST (15-37) U/L 36 ALT (16-63) U/L 21 Alkaline Phosphatase (46-116) U/L 135 H Total Protein (6.4-8.2) g/dL 6.7 Albumin (3.4-5.0) g/dL 3.1 L Lipase (16-77) U/L 167 H Urine Color (Yellow) Yellow Urine Clarity (Clear) Sl Cloudy Urine pH (5-8) 5.5 Ur Specific [place] (1.005-1.025) 1.015 Urine Protein (Neg-Trace) mg/dL 30 H Urine Ketones (Negative) mg/dL Negative Urine Blood (Negative) Trace-intact H Urine Nitrite (Negative) Positive H Urine Bilirubin (Negative) Negative Urine Urobilinogen (Up to 0.2) mg/dL 1.0 H Ur Leukocyte Esterase (Negative) Negative Urine RBC (0-2) HPF 0-2 Urine WBC (0-5) HPF 20-50 H Ur Epithelial Cells (Negative) HPF Few Urine Crystals (Negative) HPF Negative Urine Bacteria (Negative) HPF Few Urine Casts (Negative) LPF Negative Urine Mucus (Negative) Negative Ur Culture Indicated? Yes Urine Glucose (Negative) mg/dL 250 H Medical Decision Making 79-year-old male in no acute distress with recent discharge from this facility with bowel obstruction on the . Patient was concerned that he may have a recurrent bowel obstruction and has a quite complicated surgical history. On assessment he has great bowel sounds and there is actually stool noted in his ostomy, however given his age and comorbidities I will order CT scan. Secondary to delay in virtual radiology, it took 3 hours for this scan to be read, there is no evidence of obvious obstruction no evidence of significant acute abnormality. Patient's vitals are stable, his labs are stable and he is able to tolerate p.o. and has had increased ostomy output with improvement of pain. Patient does have what appears to be a urinary tract infection. I will treat with cefdinir given that last micro showed Serratia which was sensitive to thi rd-generation cephalosporins. Patient will need follow-up with his primary care physician on Friday, given low threshold to return should he have new or worsening complaints. Quality:SDOH Health Related Social Needs: Health related social needs inadequate housing(Z59.1) Health related social needs details Unable to get in a nd out of home, ambulate or perform ADLs. PFSH All Active Problems (Updated 08/07/24 @ 21:51 by STEFANO Carrasquillo) Elevated lipase (Acute) Abdominal pain (Acute) Acute UTI (Acute) Acute hypokalemia (Acute) Family conflict (Acute) Chest pain in adult (Acute) Fall (Acute) Chronic heart failure with reduced ejection fraction (HFrEF, <= 40%) (Chronic) Anemia (Chronic) Thrombocytopenia (Chronic) Colostomy care (Acute) Chronic low back pain (Chronic) Hematuria (Acute) Cirrhosis of liver without ascites (Chronic) Elevated troponin level not due myocardial infarction (Acute) Diabetes (Chronic) Leukopenia (Acute) Oral candidiasis (Acute) Sepsis syndrome (Acute) PAF (paroxysmal atrial fibrillation) (Chronic) Gram-negative bacteremia (Acute) Cellulitis (Acute) Lower urinary obstructive symptom (Acute) Anemia of chronic disease (Acute) Thrombocytopenia (Chronic) Ventricular ectopy (Acute) Sinus bradycardia (Acute) Leukocytosis (Acute) Hypertension (Chronic) Elevated lactic acid level (Acute) CHF (congestive heart failure) (Chronic) No-show for appointment (Acute) Left rotator cuff tear (Acute) Acute UTI (urinary tract infection) (Acute) Weakness (Acute) Non-ST elevation AL (NSTEMI) (Acute) Pre-syncope (Acute) Frequent falls (Acute) Orthostatic hypotension (Acute) Chronic atrial fibrillation (Chronic) Type 2 diabetes mellitus (Chronic) Hypokalemia (Acute) Bradycardia (Acute) Multiple falls (Acute) Acute metabolic encephalopathy (Acute) Medication monitoring encounter (Acute) ANETTE (obstructive sleep apnea) (Chronic) Chest pain (Acute) CHF exacerbation (Acute) CHF (congestive heart failure) (Chronic) EF 25%- 2023 Medical History Goals of care, counseling/discussion Lactic acidosis UTI (urinary tract infection) Urinary tract infection Advanced care planning/counseling discussion Palliative care encounter Followed by [facility] Bowel obstruction Sepsis Heart failure with reduced ejection fraction Hypothyroidism Small bowel obstruction Lactic acid acidosis Creatinine elevation Acute UTI Anticoagulated COVID Recurrent intestinal obstruction History of colon cancer Chronic anticoagulation Portal hypertension Cirrhosis TIPs placed (?when, [facility] [place] 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, Dx [facility] as per pt Non-insulin dependent type 2 diabetes mellitus Incontinence Hypertension Scleral icterus Surgical History S/P TIPS (transjugular intrahepatic portosystemic shunt) H/O left hemicolectomy Colostomy in place Social History Smoking/Tobacco Use Status: Former Tobacco Use Smoking risk assessment performed?: Yes Alcohol Intake: former Drug use: Never Substance use type: does not use Housing: house Do you feel safe at home: Yes Do you feel safe in your relationship?: Yes Additional Social history: Lives with , son, and sick [id number] in [place], moved up from [place] in 2019. [place].
--- NOTE | 2024-08-07 21:23 | DI.VRAD_ITS ---
PROCEDURE INFORMATION: Exam: CT Abdomen And Pelvis With Contrast Exam date and time: 08/07/2024 6:56 PM Age: 79 years old Clinical indication: Other: Pain/reoccurrence of bowel blockage; Prior surgery; Surgery date: 6+ months; Surgery type: Clostomy bag, liver stent; Patient HX: HX of colostom, tips, sbo, recurrent TECHNIQUE: Imaging protocol: Computed tomography of the abdomen and pelvis with contrast. Radiation optimization: All CT scans at this facility use at least one of these dose optimization techniques: automated exposure control; mA and/or kV adjustment per patient size (includes targeted exams where dose is matched to clinical indication); or iterative reconstruction. Contrast material: [id number]; Contrast volume: 100 ml; Contrast route: INTRAVENOUS (IV); COMPARISON: CT ABDOMEN PELVIS WO 08/05/2024 12:37 AM FINDINGS: Lungs: Bibasilar atelectasis . Diaphragm: There is a small hiatal hernia. Liver: Patent tips stent noted. Liver has a cirrhotic morphology. Gallbladder and biliary ducts: Distended gallbladder with mild wall thickening. No pericholecystic fluid. Pancreas: Normal. No ductal dilation. Spleen: Splenomegaly. Adrenal glands: Normal. No mass. Kidneys and ureters: Normal. No hydronephrosis. Stomach and bowel: Left lower quadrant ostomy. Prominent bowel loops without evidence of obstruction. Moderate stool throughout the colon. Prominent appearing loop of colon in the mid abdomen measuring up to 6.1 cm with anastomotic sutures, no evidence of obstruction. There is mild adjacent mesenteric edema, this could represent early colitis. This loop of also appears to form a small developing internal hernia. Appendix: No evidence of appendicitis. Intraperitoneal space: See Stomach and bowel finding. Vasculature: Severe diffuse atherosclerotic disease. Lymph nodes: Unremarkable. No enlarged lymph nodes. Urinary bladder: Unremarkable as visualized. Reproductive: Prominent prostate. Bones/joints: Moderate multilevel degenerative changes of the thoracolumbar spine. Soft tissues: Small fat containing inguinal hernias. IMPRESSION: Moderate stool throughout the colon. Prominent appearing loop of colon in the mid abdomen measuring up to 6.1 cm with anastomotic sutures, no evidence of obstruction. There is mild adjacent mesenteric edema, this could represent early colitis. This loop of also appears to form a small developing internal hernia. Dictated and Authenticated by: Oralia Dia MD. Ordering:OSMANY Arevalo MD
[2024-08-07] MEDS: Cefdinir 300 MG CAP PO (22:11)
== END 2024-08-07 22:11 | disposition home or self-care (01) ==
PROVIDERS: Emergency Provider Physician Assistant; PCP Nurse Practitioner Adult Health
DX: N39.0 Urinary tract infection, site not specified (principal); R74.8 Abnormal levels of other serum enzymes; E11.9 Type 2 diabetes mellitus without complications; I48.0 Paroxysmal atrial fibrillation; I25.2 Old myocardial infarction; I11.0 Hypertensive heart disease with heart failure; I50.22 Chronic systolic (congestive) heart failure; Z79.01 Long term (current) use of anticoagulants; Z79.4 Long term (current) use of insulin; Z87.891 Personal history of nicotine dependence
CPT/HCPCS: 80053; 83690; 87077; 93005; 99285; 74177; 81003; 81015; 85025; 87086; 87186; 93010; 99284; J3010; J3490

== ENCOUNTER 2024-08-27 07:26 | Emergency (ER) | payer OTHER, SELFPAY ==
--- NOTE | 2024-08-27 07:15 | RT.EKG_ITS ---
APPROVED REPORT Exam: Resting ECG Reason for Exam: Dyspnea Patient Location: E HR:92 bpm ECG Measurements Heart Rate 92 AXIS AK 246 P 54 QRSd 129 QRS 64 QT 409 T 80 QTc 496 Conclusion Sinus rhythm 92 LBBB no change from prior
[2024-08-27 07:30] VITALS: BP 169/82; PULSE 87; RESP 20; TEMP 36.8; O2SAT 91
[2024-08-27 07:35] VITALS: BP 169/82; PULSE 87; RESP 20; TEMP 36.8; O2SAT 91
--- NOTE | 2024-08-27 07:46 | ED.GENADUL_ITS ---
Discharge Plan Disposition Patient Disposition: Home Condition: Stable Discharge Details Clinical Impression: Dyspnea Primary Care Provider: Maryann Whitt ED Provider: Yajaira Islas Home Meds and New Rx's Prescriptions: No Action pantoprazole 40 mg Tablet,Delayed Release (Dr/Ec) 40 mg PO DAILY PRN pregabalin 50 mg Capsule 50 mg PO BID Eliquis 5 mg Tablet 5 mg PO BID nitroglycerin 0.4 mg Tablet, Sublingual 0.4 mg sublingual Q5 MIN PRN X3 PRNQty: 30 0RF miconazole nitrate 2 % Powder 1 applic TOPICAL BID PRN rifaximin 550 mg Tablet 550 mg PO BID prazosin 5 mg capsule 10 mg PO QPM tamsulosin 0.4 mg Capsule 0.4 mg PO DAILY carvedilol phosphate 10 mg capsule, ER multiphase 24 hr 10 mg PO QHS Qty: 90 1RF Rx Instructions: must administer with a meal/food cefdinir 300 mg capsule 300 mg PO BID Qty: 20 0RF ferrous sulfate 325 mg (65 mg iron) Tablet 325 mg PO DAILY empagliflozin 25 mg Tablet 25 mg PO DAILY levothyroxine 200 mcg Tablet 100 mcg PO QAM Qty: 0 0RF cholecalciferol (vitamin D3) 25 mcg (1,000 unit) capsule 25 mcg PO DAILY diclofenac sodium [Arthritis Pain (diclofenac)] 1 % gel 2 g topical QID PRN Rx Instructions: apply to single elbow, wrist or hand; for hand includes palm/fingers/back of hand losartan 50 mg tablet 50 mg PO BID venlafaxine 150 mg capsule,extended release 24hr 150 mg PO DAILY rosuvastatin [Crestor] 20 mg Tablet 40 mg PO QPM Qty: 0 0RF clobetasol 0.05 % cream 1 applic topical DAILY acetaminophen [Tylenol] 325 mg Capsule 975 mg PO Q8H MDD 3000 PRN metformin 500 mg tablet extended release 24hr 500 mg PO DAILY Qty: 30 0RF simethicone 80 mg tablet,chewable 80 mg PO BID-QID PRNQty: 90 0RF insulin glargine [Lantus Solostar U-100 Insulin] 100 unit/mL (3 mL) insulin pen 10 unit subcut QAM Qty: 15 0RF melatonin 3 mg Tablet 3 mg PO HS Qty: 30 0RF cefpodoxime 200 mg tablet 200 mg PO Q12H Qty: 3 0RF Rx Instructions: must administer with a meal/food spironolactone 25 mg Tablet 12.5 mg PO DAILY Qty: 30 0RF lactulose 20 gram/30 mL Solution 20 g PO TID Qty: 1800 11RF Rx Instructions: to maintain colostomy output of 3-4 bags per day furosemide 20 mg tablet 20 mg PO Q OTHER DAY Qty: 15 0RF furosemide 20 mg tablet 10 mg PO DAILY PRNQty: 7 0RF Rx Instructions: Take for increased weight of 2 pounds for 2 consecutive days or 3 pounds in 5 days. Weight yourself daily and keep a log Discharge Instructions Additional Instructions: * please follow up with your PCP or the crayon sorting machine feeder of your CPAP to have it cleaned and adjusted. It is very important that this equipment functions properly * continue your daily medications * return with low oxygen saturations, worsened shortness of breath or chest pain HPI General Date/Time Provider Initiated Documentation: 08/27/24 07:29 . Limitations to Documentation: no limitations . Information obtained by: patient and EMS . HPI Narrative: 79-year-old gentleman with multiple medical comorbidities including diabetes, CHF, A-fib ANETTE on CPAP presents for evaluation of shortness of breath. Patient reports that the symptoms started this morning. He states that he is supposed to use CPAP at night, but he spilled something into the machine and it does not work as well. He denies any chest pain or cough. EMS reports on their arrival he was not in any signs of respiratory distress. There is no hypoxia or tachypnea. They did note some wheezing on their examination and gave him a DuoNeb and the patient states that his symptoms have completely resolved. Related Data Home Medications ?Medication ?Instructions ?Recorded ?Confirmed apixaban 5 mg tablet (Eliquis) 5 mg PO BID 11/08/22 08/07/24 pantoprazole 40 mg tablet,delayed 40 mg PO DAILY PRN 11/08/22 08/07/24 release pregabalin 50 mg capsule 50 mg PO BID 11/08/22 08/07/24 nitroglycerin 0.4 mg sublingual 0.4 mg sublingual Q5 MIN PRN X3 02/10/23 08/07/24 tablet PRN #30 tabs ferrous sulfate 325 mg (65 mg 325 mg PO DAILY 03/08/23 08/07/24 iron) tablet empagliflozin 25 mg tablet 25 mg PO DAILY 04/09/23 08/07/24 levothyroxine 200 mcg tablet 100 mcg (1/2 x 200 mcg) PO QAM #0 04/10/23 08/07/24 tabs miconazole nitrate 2 % topical 1 applic topical BID PRN 06/16/23 08/07/24 powder rifaximin 550 mg tablet 550 mg PO BID 07/07/23 08/07/24 cholecalciferol (vitamin D3) 25 25 mcg PO DAILY 03/05/24 08/07/24 mcg (1,000 unit) capsule diclofenac sodium 1 % topical gel 2 g topical QID PRN 03/05/24 08/07/24 (Arthritis Pain (diclofenac)) losartan 50 mg tablet 50 mg PO BID 03/05/24 08/07/24 venlafaxine 150 mg 150 mg PO DAILY 03/05/24 08/07/24 capsule,extended release 24 hr rosuvastatin 20 mg tablet (Crestor) 40 mg (2 x 20 mg) PO QPM #0 tabs 03/06/24 08/07/24 acetaminophen 325 mg capsule 975 mg PO Q8H PRN 05/12/24 08/07/24 (Tylenol) clobetasol 0.05 % topical cream 1 applic topical DAILY 05/12/24 08/07/24 insulin glargine 100 unit/mL (3 10 unit (0.1 mL) subcut QAM #15 mL 05/13/24 08/07/24 mL) subcutaneous pen (Lantus Solostar U-100 Insulin) metformin 500 mg tablet,extended 500 mg PO DAILY #30 tabs 05/13/24 08/07/24 release 24hr (osmotic) simethicone 80 mg chewable tablet 80 mg PO BID-QID PRN #90 tabs 05/13/24 08/07/24 cefpodoxime 200 mg tablet 200 mg PO Q12H #3 tabs 07/05/24 08/07/24 furosemide 20 mg tablet 10 mg (1/2 x 20 mg) PO DAILY PRN 07/05/24 08/07/24 #7 tabs furosemide 20 mg tablet 20 mg PO Q OTHER DAY #15 tabs 07/05/24 08/07/24 lactulose 20 gram/30 mL oral 20 g (30 mL) PO TID #1,800 mL 07/05/24 08/07/24 solution melatonin 3 mg tablet 3 mg PO HS #30 tabs 07/05/24 08/07/24 spironolactone 25 mg tablet 12.5 mg (1/2 x 25 mg) PO DAILY #30 07/05/24 08/07/24 tabs prazosin 5 mg capsule 10 mg PO QPM 08/04/24 08/07/24 tamsulosin 0.4 mg capsule 0.4 mg PO DAILY 08/04/24 08/07/24 carvedilol phosphate 10 mg 10 mg PO QHS #90 caps 08/06/24 08/07/24 capsule,[id number] multiphase cefdinir 300 mg capsule 300 mg PO BID #20 caps 08/07/24 Previous Rx's ?Medication ?Instructions ?Recorded nitroglycerin 0.4 mg sublingual 0.4 mg sublingual Q5 MIN PRN X3 02/10/23 tablet PRN #30 tabs levothyroxine 200 mcg tablet 100 mcg (1/2 x 200 mcg) PO QAM #0 04/10/23 tabs rosuvastatin 20 mg tablet (Crestor) 40 mg (2 x 20 mg) PO QPM #0 tabs 03/06/24 insulin glargine 100 unit/mL (3 10 unit (0.1 mL) subcut QAM #15 mL 05/13/24 mL) subcutaneous pen (Lantus Solostar U-100 Insulin) metformin 500 mg tablet,extended 500 mg PO DAILY #30 tabs 05/13/24 release 24hr (osmotic) simethicone 80 mg chewable tablet 80 mg PO BID-QID PRN #90 tabs 05/13/24 cefpodoxime 200 mg tablet 200 mg PO Q12H #3 tabs 07/05/24 furosemide 20 mg tablet 10 mg (1/2 x 20 mg) PO DAILY PRN 07/05/24 #7 tabs furosemide 20 mg tablet 20 mg PO Q OTHER DAY #15 tabs 07/05/24 lactulose 20 gram/30 mL oral 20 g (30 mL) PO TID #1,800 mL 07/05/24 solution melatonin 3 mg tablet 3 mg PO HS #30 tabs 07/05/24 spironolactone 25 mg tablet 12.5 mg (1/2 x 25 mg) PO DAILY #30 07/05/24 tabs carvedilol phosphate 10 mg 10 mg PO QHS #90 caps 08/06/24 capsule,[id number] multiphase cefdinir 300 mg capsule 300 mg PO BID #20 caps 08/07/24 Allergies Allergy/AdvReac Type Severity Reaction Status Date / Time Penicillins Allergy Mild Itching Verified 08/27/24 07:34 morphine AdvReac Severe vomiting Verified 08/27/24 07:34 General Stated Complaint: RespSymp ANNA: 3 Exam Narrative Exam Narrative: Review of Systems: All systems reviewed & are unremarkable except as noted in HPI and below Well-developed, no acute distress NCAT RRR no murmur Unlabored respiratory effort, clear bilaterally, no crackles or wheezing, no hypoxia or tachypnea Nondistended abdomen , ostomy in place Extremities w/o edema Course Vital Signs Vital signs: Vital Signs Temperature 36.8 C 08/27/24 07:30 Pulse 87 08/27/24 07:30 Respiratory Rate 20 08/27/24 07:30 Blood Pressure 169/82 H 08/27/24 07:30 Pulse Oximetry 91 L 08/27/24 07:30 Temperature 36.8 C 08/27/24 07:35 Temperature Source Temporal Artery Scan 08/27/24 07:35 Pulse 87 08/27/24 07:35 Respiratory Rate 20 08/27/24 07:35 Respiratory Effort Normal, Non-Labored 08/27/24 07:35 Blood Pressure 169/82 H 08/27/24 07:35 Blood Pressure Position Sitting 08/27/24 07:35 Pulse Oximetry 91 L 08/27/24 07:35 Oxygen Delivery Method Room Air 08/27/24 07:35 Oxygen Flow Rate 0 08/27/24 07:35 Medical Decision Making Emergent evaluation of shortness of breath. Patient has ANETTE and is supposed to use nightly CPAP, but has not been functioning properly. He has multiple medical comorbidities and frequent ED visits as well as admissions. At this time he there are no signs of acute shortness of breath or respiratory failure. Consider hypercapnia, CHF exacerbation, viral illness. A viral test was obtained, flu and COVID are negative. Chest x-ray was obtained, there is some mild interstitial fullness, but no focal consolidation or pleural effusion. An IV dose of Lasix was given he has he does have a slightly elevated BNP, but this BNP elevation is not significantly high for this patient. No significant anemia. VBG does not demonstrate significant CO2 retention. Electrolytes are all within normal limits. EKG is unchanged from prior. Patient has remained asymptomatic in the emergency department. 2 at this time I feel the patient is stable for discharge home and I do recommend close follow-up with PCP for help with the CPAP Quality:SDOH Health Related Social Needs: Health related social needs inadequate housing(Z59.1) Health related social needs details Unable to get in a nd out of home, ambulate or perform ADLs. PFSH All Active Problems Dyspnea (Acute) Elevated lipase (Acute) Abdominal pain (Acute) Acute UTI (Acute) Acute hypokalemia (Acute) Family conflict (Acute) Chest pain in adult (Acute) Fall (Acute) Chronic heart failure with reduced ejection fraction (HFrEF, <= 40%) (Chronic) Anemia (Chronic) Thrombocytopenia (Chronic) Colostomy care (Acute) Chronic low back pain (Chronic) Hematuria (Acute) Cirrhosis of liver without ascites (Chronic) Elevated troponin level not due myocardial infarction (Acute) Diabetes (Chronic) Leukopenia (Acute) Oral candidiasis (Acute) Sepsis syndrome (Acute) PAF (paroxysmal atrial fibrillation) (Chronic) Gram-negative bacteremia (Acute) Cellulitis (Acute) Lower urinary obstructive symptom (Acute) Anemia of chronic disease (Acute) Thrombocytopenia (Chronic) Ventricular ectopy (Acute) Sinus bradycardia (Acute) Leukocytosis (Acute) Hypertension (Chronic) Elevated lactic acid level (Acute) CHF (congestive heart failure) (Chronic) No-show for appointment (Acute) Left rotator cuff tear (Acute) Acute UTI (urinary tract infection) (Acute) Weakness (Acute) Non-ST elevation PA (NSTEMI) (Acute) Pre-syncope (Acute) Frequent falls (Acute) Orthostatic hypotension (Acute) Chronic atrial fibrillation (Chronic) Type 2 diabetes mellitus (Chronic) Hypokalemia (Acute) Bradycardia (Acute) Multiple falls (Acute) Acute metabolic encephalopathy (Acute) Medication monitoring encounter (Acute) ANETTE (obstructive sleep apnea) (Chronic) Chest pain (Acute) CHF exacerbation (Acute) CHF (congestive heart failure) (Chronic) EF 25%- 2023 Medical History Goals of care, counseling/discussion Lactic acidosis UTI (urinary tract infection) Urinary tract infection Advanced care planning/counseling discussion Palliative care encounter Followed by [facility] Bowel obstruction Sepsis Heart failure with reduced ejection fraction Hypothyroidism Small bowel obstruction Lactic acid acidosis Creatinine elevation Acute UTI Anticoagulated COVID Recurrent intestinal obstruction History of colon cancer Chronic anticoagulation Portal hypertension Cirrhosis TIPs placed (?when, [facility]? 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, Dx [facility] as per pt Non-insulin dependent type 2 diabetes mellitus Incontinence Hypertension Scleral icterus Surgical History S/P TIPS (transjugular intrahepatic portosystemic shunt) H/O left hemicolectomy Colostomy in place Social History Smoking/Tobacco Use Status: Former Tobacco Use Smoking risk assessment performed?: Yes Alcohol Intake: former Drug use: Never Substance use type: does not use Housing: house Do you feel safe at home: Yes Do you feel safe in your relationship?: Yes Additional Social history: Lives with , son, and sick [id number] in [place], moved up from [place] in 2019. [place] .
[2024-08-27 07:51] LABS: Abs Immature Grans 0.01 10^3/uL (0.0-0.06); Absolute Basophil Count 0.05 10^3/uL (0.0-0.2); Absolute Eosinophil Count 0.35 10^3/uL (0.0-0.7); Absolute Lymphocyte Count 0.68 10^3/uL (1.2-3.4); Absolute Monocyte Count 0.59 10^3/uL (0.1-0.8); Absolute Neutrophil Count 4.44 10^3/uL (1.2-6.7); Basophils % 0.8 %; Eosinophils % 5.7 %; HCT 33.1 % (40.0-50.0); Immature Grans % 0.2 %; Lymphocytes % 11.1 %; MCH 29.9 pg (27.0-33.0); MCHC 33.2 % (32.0-36.0); MCV 90 fL (80-95); MPV 10.7 fL (8.0-11.0); Monocytes % 9.6 %; Neutrophils % 72.6 %; Platelet Count 103 10^3/uL (130-400); RBC 3.68 10^6/uL (4.36-5.78); RDW 16.7 % (11.8-14.1); RDW-SD 54.3 fL; WBC 6.12 10^3/uL (4.4-10.8)
--- NOTE | 2024-08-27 08:12 | DI.RAD_ITS ---
Exam(s) XR CHEST 1V IN DI DEPT EXAM: XR CHEST 1V IN DI DEPT CLINICAL HISTORY: sob TECHNIQUE: 2D digital imaging was performed. COMPARISON: CR,XR XR CHEST 2V PA LATERAL from 05/12/2024 FINDINGS: Nat somewhat limited by under penetration at the lung bases. LUNGS: No focal area of consolidation is visible. Tiny bilateral pleural effusions. HEART: Enlarged. Pulmonary vascular prominence. AORTA: Normal diameter. BONES: Unremarkable for age. Soft tissues: Unremarkable. IMPRESSION: Vascular prominence and tiny bilateral pleural effusions could indicate mild CHF. DATA REPOSITORY: RADIATION DOSE DELIVERED:
[2024-08-27 08:14] LABS: ALT 20 U/L (16-63); AST 35 U/L (15-37); Albumin 2.9 g/dL (3.4-5.0); Alkaline Phosphatase 145 U/L (46-116); Anion Gap 12.3 mmol/L (3-11); BUN 12 mg/dL (7-18); Bilirubin, Total 2.08 mg/dL (0.2-1.0); CO2 23.7 mmol/L (21.0-32.0); CREATININE 0.9 mg/dL (0.70-1.30); Calcium 9.3 mg/dL (8.5-10.1); Chloride 110 mmol/L (98-107); Estimated GFR 87.96 (mL/min/1.73m2); Glucose 158 mg/dL (74-106); Potassium 3.7 mmol/L (3.5-5.1); Sodium 146 mmol/L (136-145); Total Protein 6.5 g/dL (6.4-8.2)
[2024-08-27 08:16] LABS: NT-proBNP 608 pg/mL (<300)
[2024-08-27 08:39] VITALS: BP 144/65; PULSE 86; RESP 16; O2SAT 90
[2024-08-27 08:46] LABS: BE (Venous) 0 mmol/L (-2-3); HCO3 (Venous) 24 mmol/L (23-28); O2 Sat (Venous) 93 %; TCO2 (Venous) 22 mmol/L (24-29); pCO2 (Venous) 32 mmHg (41-51); pH (Venous) 7.47 (7.31-7.41); pO2 (Venous) 61 mmHg
[2024-08-27] MEDS: Furosemide 40 MG/4 ML VIAL IVP (08:51)
[2024-08-27 09:04] VITALS: BP 154/76; PULSE 82; RESP 20; TEMP 37.3; O2SAT 94
== END 2024-08-27 10:07 | disposition home or self-care (01) ==
PROVIDERS: Emergency Provider Emergency Medicine; PCP Nurse Practitioner Adult Health
DX: R06.00 Dyspnea, unspecified (principal); R06.02 Shortness of breath
CPT/HCPCS: 36415; 80053; 82805; 87426; 93005; 96374; 99285; 71045; 83880; 85025; 93010; 99284; J1940

== ENCOUNTER 2024-09-06 08:15 | Outpatient (CLI) | payer OTHER, SELFPAY | END 2024-09-06 08:16 | disposition home or self-care (01) | LOC: DI.CARD 08:16 | PROVIDERS: PCP Nurse Practitioner Adult Health; Visit Provider Internal Medicine Cardiovascular Disease | CPT/HCPCS: 93010 ==

== ENCOUNTER 2024-10-01 22:11 | Outpatient (REF) | payer SELFPAY ==
[2024-10-01 20:00] LABS: Anion Gap 14.7 mmol/L (3-11); BUN 18 mg/dL (7-18); CO2 21.3 mmol/L (21.0-32.0); CREATININE 1.3 mg/dL (0.70-1.30); Calcium 9.4 mg/dL (8.5-10.1); Chloride 109 mmol/L (98-107); Estimated GFR 56.58 (mL/min/1.73m2); Glucose 165 mg/dL (74-106); Potassium 4.1 mmol/L (3.5-5.1); Sodium 145 mmol/L (136-145)
[2024-10-01 20:01] LABS: HCT 39.6 % (40.0-50.0); HGB 12.2 g/dL (13.5-17.5); MCH 27.8 pg (27.0-33.0); MCHC 30.8 % (32.0-36.0); MCV 90 fL (80-95); MPV 11.4 fL (8.0-11.0); RBC 4.39 10^6/uL (4.36-5.78); RDW 14.4 % (11.8-14.1); RDW-SD 48.1 fL; WBC 6.98 10^3/uL (4.4-10.8)
[2024-10-01 20:16] LABS: Platelet Count 89 10^3/uL (130-400)
== END 2024-10-01 22:12 | disposition home or self-care (01) ==
LOC: LBN 22:11
PROVIDERS: PCP Nurse Practitioner Adult Health; Visit Provider Family Medicine
DX: I50.9 Heart failure, unspecified (principal)
CPT/HCPCS: 80048; 85027

== ENCOUNTER 2024-12-17 17:02 | Emergency (ER) | payer OTHER, SELFPAY ==
[2024-12-17] VITALS (42 sets, daily range): BP systolic 151–187; BP diastolic 36–98; PULSE 45–73; RESP 14–23; TEMP 37.2; O2SAT 92–95
--- NOTE | 2024-12-17 17:00 | RT.EKG_ITS ---
APPROVED REPORT Exam: Resting ECG Reason for Exam: chest pain Patient Location: E HR:53 bpm ECG Measurements Heart Rate 53 AXIS NM 314 P 0 QRSd 150 QRS 4 QT 485 T 139 QTc 457 Conclusion Sinus bradycardia...rate< 60 Prolonged NM interval...NM >220, V-rate 50- 90 Left bundle branch block...QRSd>120, broad/notched R No STEMI. Not meeting Sgarbossa nor satish Berg.
--- NOTE | 2024-12-17 17:15 | DI.RAD_ITS ---
Exam(s) XR PORTABLE CHEST AP EXAM: XR PORTABLE CHEST AP CLINICAL HISTORY: chest pain. TECHNIQUE: 2D digital imaging was performed. COMPARISON: CT CT ABDOMEN PELVIS W from 08/07/2024 CR XR CHEST 1V IN DI DEPT from 08/27/2024 FINDINGS: Single AP portable view. Mild cardiomegaly again noted. Mediastinum is not widened. There is a pulmonary venous hypertension pattern but no airspace pulmonary edema. There are no Kerle y B lines. No pleural effusions. IMPRESSION: As above DATA REPOSITORY: RADIATION DOSE DELIVERED:
--- NOTE | 2024-12-17 17:21 | W.ED.GENAD ---
Discharge Plan Disposition Patient Disposition: Home Condition: Stable Discharge Details Clinical Impression: Stable angina Primary Care Provider: Maryann Whitt ED Provider: Js Beckwith Home Meds and New Rx's Prescriptions: Continued pantoprazole 40 mg Tablet,Delayed Release (Dr/Ec) 40 mg PO DAILY PRN pregabalin 50 mg Capsule 50 mg PO BID Eliquis 5 mg Tablet 5 mg PO BID nitroglycerin 0.4 mg Tablet, Sublingual 0.4 mg sublingual Q5 MIN PRN X3 PRNQty: 30 0RF miconazole nitrate 2 % Powder 1 applic TOPICAL BID PRN rifaximin 550 mg Tablet 550 mg PO BID prazosin 5 mg capsule 10 mg PO QPM tamsulosin 0.4 mg Capsule 0.4 mg PO DAILY carvedilol phosphate 10 mg capsule, ER multiphase 24 hr 10 mg PO QHS Qty: 90 1RF Rx Instructions: must administer with a meal/food cefdinir 300 mg capsule 300 mg PO BID Qty: 20 0RF ferrous sulfate 325 mg (65 mg iron) Tablet 325 mg PO DAILY empagliflozin 25 mg Tablet 25 mg PO DAILY levothyroxine 200 mcg Tablet 100 mcg PO QAM Qty: 0 0RF cholecalciferol (vitamin D3) 25 mcg (1,000 unit) capsule 25 mcg PO DAILY diclofenac sodium [Arthritis Pain (diclofenac)] 1 % gel 2 g topical QID PRN Rx Instructions: apply to single elbow, wrist or hand; for hand includes palm/fingers/back of hand losartan 50 mg tablet 50 mg PO BID venlafaxine 150 mg capsule,extended release 24hr 150 mg PO DAILY rosuvastatin [Crestor] 20 mg Tablet 40 mg PO QPM Qty: 0 0RF clobetasol 0.05 % cream 1 applic topical DAILY acetaminophen [Tylenol] 325 mg Capsule 975 mg PO Q8H MDD 3000 PRN metformin 500 mg tablet extended release 24hr 500 mg PO DAILY Qty: 30 0RF simethicone 80 mg tablet,chewable 80 mg PO BID-QID PRNQty: 90 0RF insulin glargine [Lantus Solostar U-100 Insulin] 100 unit/mL (3 mL) insulin pen 10 unit subcut QAM Qty: 15 0RF melatonin 3 mg Tablet 3 mg PO HS Qty: 30 0RF cefpodoxime 200 mg tablet 200 mg PO Q12H Qty: 3 0RF Rx Instructions: must administer with a meal/food spironolactone 25 mg Tablet 12.5 mg PO DAILY Qty: 30 0RF lactulose 20 gram/30 mL Solution 20 g PO TID Qty: 1800 11RF Rx Instructions: to maintain colostomy output of 3-4 bags per day furosemide 20 mg tablet 20 mg PO Q OTHER DAY Qty: 15 0RF furosemide 20 mg tablet 10 mg PO DAILY PRNQty: 7 0RF Rx Instructions: Take for increased weight of 2 pounds for 2 consecutive days or 3 pounds in 5 days. Weight yourself daily and keep a log Discharge Instructions Instructions: Angina Additional Instructions: You were seen in the emergency department for your brief episode of chest pain at home that responded completely to 1 dose of nitroglycerin, this is known as stable angina, please return to the emergency department for any continued chest pain with shortness of breath, feelings of near fainting or other emergent concerns. Otherwise please use your as needed at home nitroglycerin for brief episodes of chest pain, we saw no dynamic changes in your EKG and your chest x-ray is normal, there is no evidence of CHF exacerbation, I discussed admission for observation with you but you prefer to follow-up outpatient with applications scientist on a short-term basis. Please call the [facility] tomorrow or Friday at the latest and have them schedule you for updated cardiology visit with possible baseline studies repeated like stress test and echocardiogram. Please return for any increasing chest pain especially if chest pain lasts longer than 45-minutes. Referrals: Maryann Whitt [Primary Care Provider] - Discharge Data Discharge Date/Time-TO BE ENTERED AT DEPARTURE: 12/17/24 21:41 HPI General Date/Time Provider Initiated Documentation: 12/17/24 17:04. HPI Narrative: 79 year-old male presents to ED today by EMS with a chief complaint of chest pressure that lasted about 7 minutes at home, onset at rest, resolved with 1 dose SL nitro, with onset about 1600 today- one hour ago. Quality described as central chest pressure, no radiation to shortness of breath, syncope, endorses mild dizziness. Severity is described as mild. Palliating factors include nitro at home with resolution, received 324mg ASA by EMS. Provoking factors include nothing specific- was taking a nap at onset. Events leading up to the incident/Associated Symptoms: Patient has history of stent and CAD. Patient is anticoagulated on Eliquis. Related Data Home Medications ?Medication ?Instructions ?Recorded ?Confirmed apixaban 5 mg tablet (Eliquis) 5 mg PO BID 11/08/22 12/17/24 pantoprazole 40 mg tablet,delayed 40 mg PO DAILY PRN 11/08/22 12/17/24 release pregabalin 50 mg capsule 50 mg PO BID 11/08/22 12/17/24 nitroglycerin 0.4 mg sublingual 0.4 mg sublingual Q5 MIN PRN X3 02/10/23 12/17/24 tablet PRN #30 tabs ferrous sulfate 325 mg (65 mg 325 mg PO DAILY 03/08/23 12/17/24 iron) tablet empagliflozin 25 mg tablet 25 mg PO DAILY 04/09/23 12/17/24 levothyroxine 200 mcg tablet 100 mcg (1/2 x 200 mcg) PO QAM #0 04/10/23 12/17/24 tabs miconazole nitrate 2 % topical 1 applic topical BID PRN 06/16/23 12/17/24 powder rifaximin 550 mg tablet 550 mg PO BID 07/07/23 12/17/24 cholecalciferol (vitamin D3) 25 25 mcg PO DAILY 03/05/24 12/17/24 mcg (1,000 unit) capsule diclofenac sodium 1 % topical gel 2 g topical QID PRN 03/05/24 12/17/24 (Arthritis Pain (diclofenac)) losartan 50 mg tablet 50 mg PO BID 03/05/24 12/17/24 venlafaxine 150 mg 150 mg PO DAILY 03/05/24 12/17/24 capsule,extended release 24 hr rosuvastatin 20 mg tablet (Crestor) 40 mg (2 x 20 mg) PO QPM #0 tabs 03/06/24 12/17/24 acetaminophen 325 mg capsule 975 mg PO Q8H PRN 05/12/24 12/17/24 (Tylenol) clobetasol 0.05 % topical cream 1 applic topical DAILY 05/12/24 12/17/24 insulin glargine 100 unit/mL (3 10 unit (0.1 mL) subcut QAM #15 mL 05/13/24 12/17/24 mL) subcutaneous pen (Lantus Solostar U-100 Insulin) metformin 500 mg tablet,extended 500 mg PO DAILY #30 tabs 05/13/24 12/17/24 release 24hr (osmotic) simethicone 80 mg chewable tablet 80 mg PO BID-QID PRN #90 tabs 05/13/24 12/17/24 cefpodoxime 200 mg tablet 200 mg PO Q12H #3 tabs 07/05/24 12/17/24 furosemide 20 mg tablet 10 mg (1/2 x 20 mg) PO DAILY PRN 07/05/24 12/17/24 #7 tabs furosemide 20 mg tablet 20 mg PO Q OTHER DAY #15 tabs 07/05/24 12/17/24 lactulose 20 gram/30 mL oral 20 g (30 mL) PO TID #1,800 mL 07/05/24 12/17/24 solution melatonin 3 mg tablet 3 mg PO HS #30 tabs 07/05/24 12/17/24 spironolactone 25 mg tablet 12.5 mg (1/2 x 25 mg) PO DAILY #30 07/05/24 12/17/24 tabs prazosin 5 mg capsule 10 mg PO QPM 08/04/24 12/17/24 tamsulosin 0.4 mg capsule 0.4 mg PO DAILY 08/04/24 12/17/24 carvedilol phosphate 10 mg 10 mg PO QHS #90 caps 08/06/24 12/17/24 capsule,[id number] multiphase cefdinir 300 mg capsule 300 mg PO BID #20 caps 08/07/24 12/17/24 Previous Rx's ?Medication ?Instructions ?Recorded nitroglycerin 0.4 mg sublingual 0.4 mg sublingual Q5 MIN PRN X3 02/10/23 tablet PRN #30 tabs levothyroxine 200 mcg tablet 100 mcg (1/2 x 200 mcg) PO QAM #0 04/10/23 tabs rosuvastatin 20 mg tablet (Crestor) 40 mg (2 x 20 mg) PO QPM #0 tabs 03/06/24 insulin glargine 100 unit/mL (3 10 unit (0.1 mL) subcut QAM #15 mL 05/13/24 mL) subcutaneous pen (Lantus Solostar U-100 Insulin) metformin 500 mg tablet,extended 500 mg PO DAILY #30 tabs 05/13/24 release 24hr (osmotic) simethicone 80 mg chewable tablet 80 mg PO BID-QID PRN #90 tabs 05/13/24 cefpodoxime 200 mg tablet 200 mg PO Q12H #3 tabs 07/05/24 furosemide 20 mg tablet 10 mg (1/2 x 20 mg) PO DAILY PRN 07/05/24 #7 tabs furosemide 20 mg tablet 20 mg PO Q OTHER DAY #15 tabs 07/05/24 lactulose 20 gram/30 mL oral 20 g (30 mL) PO TID #1,800 mL 07/05/24 solution melatonin 3 mg tablet 3 mg PO HS #30 tabs 07/05/24 spironolactone 25 mg tablet 12.5 mg (1/2 x 25 mg) PO DAILY #30 07/05/24 tabs carvedilol phosphate 10 mg 10 mg PO QHS #90 caps 08/06/24 capsule,[id number] multiphase cefdinir 300 mg capsule 300 mg PO BID #20 caps 08/07/24 Allergies Allergy/AdvReac Type Severity Reaction Status Date / Time Penicillins Allergy Mild Itching Verified 12/17/24 17:13 morphine AdvReac Severe vomiting Verified 12/17/24 17:13 General Stated Complaint: Chest Pain ANNA: 3 Review of Systems All systems reviewed & are unremarkable except as noted in HPI and below Exam Narrative Exam Narrative: GENERAL APPEARANCE: Well-nourished, non-toxic, awake and alert, atraumatic, no acute distress. SKIN: Warm, pink, dry, intact, without rashes/lesions/ulcerations. HEAD: Normocephalic, atraumatic, normal hair distribution for gender/age. EYES: Normal conjunctiva, no exudates on lids/lashes. ENT: Nares patent, no circumoral cyanosis, no facial swelling NECK: Supple, trachea midline, painless cervical ROM. LUNGS/CHEST: Lungs CTA bilaterally, non-labored respirations, normal A/P diameter, symmetrical expansion, no chest wall deformity HEART (CV/PV): Regular rate and rhythm without murmur, no peripheral edema, no JVD. ABDOMEN: Soft, non-distended, no guarding. MSK: Normal ROM, no swelling/deformity to bilateral UEs or LEs, moving all extremities without weakness, no cyanosis, spine midline without tenderness, normal curvature. NEURO: Mental Status AAOx4 - alert to person, place, time, events No facial droop, no forehead involvement. Motor: No focal weakness - strength 5/5 in bilateral UEs and LEs, proximal and distal, symmetric. Sensory: sensation intact to light touch globally. Gait normal: patient ambulated without ataxia into ED room. PSYCH: euthymic, cooperative, pleasant, appropriate speech Course Vital Signs Vital signs: Vital Signs Temperature 37.2 C 12/17/24 17:05 Pulse 50 L 12/17/24 17:05 Respiratory Rate 18 12/17/24 17:05 Blood Pressure 151/61 H 12/17/24 17:05 Pulse Oximetry 95 12/17/24 17:05 Temperature 37.2 C 12/17/24 17:05 Temperature Source Oral 12/17/24 17:05 Pulse 50 L 12/17/24 17:05 Respiratory Rate 18 12/17/24 17:05 Blood Pressure 151/61 H 12/17/24 17:05 Blood Pressure Position Sitting 12/17/24 17:05 Pulse Oximetry 95 12/17/24 17:05 Oxygen Delivery Method Room Air 12/17/24 17:05 Oxygen Flow Rate 0 12/17/24 17:05 Pain Level 0 12/17/24 17:05 Medical Decision Making This dictation utilizes [id number] dictation software and may contain unedited grammatical errors. 79 year-old male presents to ED today by EMS with a chief complaint of chest pressure that lasted about 7 minutes at home, onset at rest, resolved with 1 dose SL nitro, with onset about 1600 today- one hour ago. Quality described as central chest pressure, no radiation to shortness of breath, syncope, endorses mild dizziness. Severity is described as mild. Palliating factors include nitro at home with resolution, received 324mg ASA by EMS. Provoking factors include nothing specific- was taking a nap at onset. Events leading up to the incident/Associated Symptoms: Patient has history of stent and CAD. Patients' medical history: Heart failure with reduced ejection fraction, history of SBO, history of colon cancer, portal hypertension, cirrhosis, [id number] T2DM, hypertension, paroxysmal A-fib, anemia, hypertension, NSTEMI. Family and social history: Lives independently, eats normal diet. Pertinent exam findings / vital signs include regular rate and rhythm, benign abdomen, no active chest pain or shortness of breath over unstable vitals. Differential / pathologies of concern include stable angina, ACS, NSTEMI, CHF exacerbation, pneumonia. Diagnostic studies of: -CBC, CMP, serial troponins, magnesium, BNP, lipase, EKG, chest x-ray. -CBC shows no leukocytosis, shows chronic anemia -CMP is no actionable abnormality -Magnesium is mildly low, would replete with normal p.o. intake -BNP is slightly elevated but no pulmonary edema on chest x-ray -Serial troponins stable and negative -Lipase negative -Chest x-ray shows no CHF, shows mild cardiomegaly -Sinus bradycardia at 53 bpm with left bundle branch block consistent with priors no scar Bosa criteria or modified Berg criteria, some ST depression in lateral leads without reciprocal concerning changes, normal intervals Interventions of: -None patient experienced no chest pain from arrival through entirety of visit. -Discussed possible observation admission due to his many risk factors, patient would prefer to follow-up with his outpatient applications scientist, his heart score is moderate ED Course/Assessment/Plan: 79-year-old male had a brief episode of chest pain for about 7 minutes onset at rest at home, has no concerning changes on his EKG and his troponins are stable over 3 hours with high-sensitivity testing, he does have a history of coronary artery disease, he did take 1 nitro with complete relief, I do suspect he has stable angina, he has significant comorbidities and I discussed to telemetry observation admission for him but he wishes to follow-up outpatient, patient experienced no chest pain throughout the visit, no labile vital signs. Findings not consistent with ACS, CHF exacerbation, dangerous arrhythmia, pneumonia, infectious etiology. Disposition of stable angina. Patient verbalized understanding of the plan and return to ED criteria and engaged in shared decision making. Medical Records Medical records reviewed: Yes I reviewed the patient's medical records. Imaging Data Radiologic Study: Attestation: I personally reviewed and interpreted this imaging study as follows: Imaging: X-Ray Radiologist's impression: EXAM: XR PORTABLE CHEST AP CLINICAL HISTORY: chest pain. TECHNIQUE: 2D digital imaging was performed. COMPARISON: CT CT ABDOMEN PELVIS W from 08/07/2024 CR XR CHEST 1V IN DI DEPT from 08/27/2024 FINDINGS: Single AP portable view. Mild cardiomegaly again noted. Mediastinum is not widened. There is a pulmonary venous hypertension pattern but no airspace pulmonary edema. There are no Kevon B lines. No pleural effusions. IMPRESSION: As above Lab Data Lab results reviewed: Yes I reviewed the patient's lab results. Labs: Laboratory Tests Range/Units 12/17/24 12/17/24 12/17/24 17:35 18:30 20:28 WBC (4.4-10.8) 10^3/uL 6.23 RBC (4.36-5.78) 10^6/uL 4.28 L Hgb (13.5-17.5) g/dL 12.0 L Hct (40.0-50.0) % 36.7 L MCV (80-95) fL 86 MCH (27.0-33.0) pg 28.0 MCHC (32.0-36.0) % 32.7 RDW (11.8-14.1) % 18.6 H Plt Count (130-400) 10^3/uL 103 L MPV (8.0-11.0) fL 10.9 Immature Gran % % 0.5 Neutrophils % % 69.0 Lymphocytes % % 11.9 Monocytes % % 11.9 Eosinophils % % 6.1 Basophils % % 0.6 Nucleated RBC % (0.0-0.3) % 0.0 Absolute Neutrophils (1.2-6.7) 10^3/uL 4.30 Absolute Lymphocytes (1.2-3.4) 10^3/uL 0.74 L Absolute Monocytes (0.1-0.8) 10^3/uL 0.74 Absolute Eosinophils (0.0-0.7) 10^3/uL 0.38 Absolute Basophils (0.0-0.2) 10^3/uL 0.04 Sodium (136-145) mmol/L 141 Potassium (3.5-5.1) mmol/L 3.5 Chloride (98-107) mmol/L 106 Carbon Dioxide (21.0-32.0) mmol/L 29.1 Anion Gap (3-11) mmol/L 5.9 BUN (7-18) mg/dL 12 Creatinine (0.70-1.30) mg/dL 1.2 Est GFR (CKD-EPI 2020) (mL/min/1.73m2) 62.29 Glucose (74-106) mg/dL 246 H Calcium (8.5-10.1) mg/dL 9.2 Magnesium (1.8-2.4) mg/dL 1.7 L Total Bilirubin (0.2-1.0) mg/dL 2.27 H AST (15-37) U/L 24 ALT (16-63) U/L 21 Alkaline Phosphatase (46-116) U/L 129 H Troponin I (<or=76) ng/L 39 36 41 NT-Pro-B Natriuret Pep (<300) pg/mL 2014 H Total Protein (6.4-8.2) g/dL 6.4 Albumin (3.4-5.0) g/dL 2.9 L Lipase (<78) U/L 61 Quality:SDOH Health Related Social Needs: Health related social needs details Unable to get in and out of home, ambulate or perform ADLs. PFSH All Active Problems (Updated 12/17/24 @ 20:59 by STEFANO Meier) Stable angina (Acute) Acute hypokalemia (Acute) Family conflict (Acute) Chest pain in adult (Acute) Fall (Acute) Chronic heart failure with reduced ejection fraction (HFrEF, <= 40%) (Chronic) Anemia (Chronic) Thrombocytopenia (Chronic) Colostomy care (Acute) Chronic low back pain (Chronic) Hematuria (Acute) Cirrhosis of liver without ascites (Chronic) Elevated troponin level not due myocardial infarction (Acute) Diabetes (Chronic) Leukopenia (Acute) Oral candidiasis (Acute) Sepsis syndrome (Acute) PAF (paroxysmal atrial fibrillation) (Chronic) Gram-negative bacteremia (Acute) Cellulitis (Acute) Lower urinary obstructive symptom (Acute) Anemia of chronic disease (Acute) Thrombocytopenia (Chronic) Ventricular ectopy (Acute) Sinus bradycardia (Acute) Leukocytosis (Acute) Hypertension (Chronic) Elevated lactic acid level (Acute) CHF (congestive heart failure) (Chronic) No-show for appointment (Acute) Left rotator cuff tear (Acute) Acute UTI (urinary tract infection) (Acute) Weakness (Acute) Non-ST elevation [place] (NSTEMI) (Acute) Pre-syncope (Acute) Frequent falls (Acute) Orthostatic hypotension (Acute) Chronic atrial fibrillation (Chronic) Type 2 diabetes mellitus (Chronic) Hypokalemia (Acute) Bradycardia (Acute) Multiple falls (Acute) Acute metabolic encephalopathy (Acute) Medication monitoring encounter (Acute) ANETTE (obstructive sleep apnea) (Chronic) Chest pain (Acute) CHF exacerbation (Acute) CHF (congestive heart failure) (Chronic) EF 25%- 2023 Medical History Goals of care, counseling/discussion Lactic acidosis UTI (urinary tract infection) Urinary tract infection Advanced care planning/counseling discussion Palliative care encounter Followed by [facility] Bowel obstruction Sepsis Heart failure with reduced ejection fraction Hypothyroidism Small bowel obstruction Lactic acid acidosis Creatinine elevation Acute UTI Anticoagulated COVID Recurrent intestinal obstruction History of colon cancer Chronic anticoagulation Portal hypertension Cirrhosis TIPs placed (?when, [facility]? 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, Dx [facility] as per pt Non-insulin dependent type 2 diabetes mellitus Incontinence Hypertension Scleral icterus Surgical History S/P TIPS (transjugular intrahepatic portosystemic shunt) H/O left hemicolectomy Colostomy in place Social History Smoking/Tobacco Use Status: Former Tobacco Use Smoking risk assessment performed?: Yes Alcohol Intake: former Drug use: Never Substance use type: does not use Housing: house Do you feel safe at home: Yes Do you feel safe in your relationship?: Yes Additional Social history: Lives with , son, and sick [id number] in [place], moved up from [place] in 2019. [place] .
[2024-12-17 17:51] LABS: Abs Immature Grans 0.03 10^3/uL (0.0-0.06); Absolute Basophil Count 0.04 10^3/uL (0.0-0.2); Absolute Eosinophil Count 0.38 10^3/uL (0.0-0.7); Absolute Lymphocyte Count 0.74 10^3/uL (1.2-3.4); Absolute Monocyte Count 0.74 10^3/uL (0.1-0.8); Basophils % 0.6 %; Eosinophils % 6.1 %; HCT 36.7 % (40.0-50.0); Immature Grans % 0.5 %; Lymphocytes % 11.9 %; MCHC 32.7 % (32.0-36.0); MCV 86 fL (80-95); MPV 10.9 fL (8.0-11.0); Monocytes % 11.9 %; Platelet Count 103 10^3/uL (130-400); RBC 4.28 10^6/uL (4.36-5.78); RDW 18.6 % (11.8-14.1); WBC 6.23 10^3/uL (4.4-10.8)
[2024-12-17 18:10] LABS: ALT 21 U/L (16-63); AST 24 U/L (15-37); Albumin 2.9 g/dL (3.4-5.0); Alkaline Phosphatase 129 U/L (46-116); Anion Gap 5.9 mmol/L (3-11); BUN 12 mg/dL (7-18); Bilirubin, Total 2.27 mg/dL (0.2-1.0); CO2 29.1 mmol/L (21.0-32.0); CREATININE 1.2 mg/dL (0.70-1.30); Calcium 9.2 mg/dL (8.5-10.1); Chloride 106 mmol/L (98-107); Estimated GFR 62.29 (mL/min/1.73m2); Glucose 246 mg/dL (74-106); Lipase 61 U/L (<78); Magnesium 1.7 mg/dL (1.8-2.4); NT-proBNP 2014 pg/mL (<300); Potassium 3.5 mmol/L (3.5-5.1); Sodium 141 mmol/L (136-145); Total Protein 6.4 g/dL (6.4-8.2); Troponin I 39 ng/L (<or=76)
[2024-12-17 18:54] LABS: Troponin I 36 ng/L (<or=76)
[2024-12-17 20:50] LABS: Troponin I 41 ng/L (<or=76)
== END 2024-12-17 21:41 | disposition home or self-care (01) ==
PROVIDERS: Emergency Provider Physician Assistant; PCP Nurse Practitioner Adult Health
DX: I20.89 Other forms of angina pectoris (principal); I11.0 Hypertensive heart disease with heart failure; I50.22 Chronic systolic (congestive) heart failure; I48.0 Paroxysmal atrial fibrillation; E11.9 Type 2 diabetes mellitus without complications; I51.7 Cardiomegaly; I25.2 Old myocardial infarction; Z95.5 Presence of coronary angioplasty implant and graft; Z79.01 Long term (current) use of anticoagulants; Z79.4 Long term (current) use of insulin; Z87.891 Personal history of nicotine dependence
CPT/HCPCS: 80053; 83690; 93005; 99285; 71045; 83735; 83880; 84484; 85025; 93010; 99284

== ENCOUNTER 2025-01-17 11:18 | Observation (INO) | payer OTHER, SELFPAY ==
[2025-01-17] VITALS (86 sets, daily range): BP systolic 122–172; BP diastolic 35–76; PULSE 41–74; RESP 11–20; TEMP 36.3–36.8; O2SAT 88–97
--- NOTE | 2025-01-17 11:00 | RT.EKG_ITS ---
APPROVED REPORT Exam: Resting ECG Reason for Exam: Weakness Patient Location: E HR:47 bpm ECG Measurements Heart Rate 47 AXIS AR 248 P 0 QRSd 140 QRS 41 QT 536 T 222 QTc 475 Conclusion Sinus bradycardia, rate 47 !st degree HB, AR interval 248ms LBBB No STEMI No significant changes from priors
[2025-01-17 11:51] LABS: Abs Immature Grans 0.02 10^3/uL (0.0-0.06); Absolute Basophil Count 0.03 10^3/uL (0.0-0.2); Absolute Eosinophil Count 0.06 10^3/uL (0.0-0.7); Absolute Lymphocyte Count 0.39 10^3/uL (1.2-3.4); Absolute Neutrophil Count 2.93 10^3/uL (1.2-6.7); Basophils % 0.8 %; Eosinophils % 1.6 %; HGB 11.7 g/dL (13.5-17.5); Immature Grans % 0.5 %; Lymphocytes % 10.5 %; MCH 28.1 pg (27.0-33.0); MCHC 31.6 % (32.0-36.0); MCV 89 fL (80-95); MPV 10.5 fL (8.0-11.0); Neutrophils % 78.6 %; RBC 4.17 10^6/uL (4.36-5.78); RDW 17.6 % (11.8-14.1); RDW-SD 55.2 fL; WBC 3.73 10^3/uL (4.4-10.8)
[2025-01-17 11:59] LABS: Diff Comment PLT Morph Reviewed; Platelet Count 72 10^3/uL (130-400); RBC Morphology Normal
[2025-01-17 12:12] LABS: Bilirubin Negative (Negative); Blood Negative (Negative); Clarity Cloudy (Clear); Glucose 500 mg/dL (Negative); Ketones Negative (Negative); Leukocyte Esterase Negative (Negative); Nitrite Negative (Negative); Urobilinogen 0.2 mg/dL (Up to 0.2); pH 5.5 (5-8)
[2025-01-17 12:31] LABS: ALT 20 U/L (16-63); AST 33 U/L (15-37); Albumin 2.8 g/dL (3.4-5.0); Alkaline Phosphatase 134 U/L (46-116); Anion Gap 13.5 mmol/L (3-11); BUN 22 mg/dL (7-18); Bilirubin, Total 2.6 mg/dL (0.2-1.0); CO2 22.5 mmol/L (21.0-32.0); CREATININE 1.6 mg/dL (0.70-1.30); Calcium 9.7 mg/dL (8.5-10.1); Chloride 108 mmol/L (98-107); Glucose 280 mg/dL (74-106); Potassium 3.7 mmol/L (3.5-5.1); Sodium 144 mmol/L (136-145); TSH (W/Ref FT4) 4.17 uIU/mL (0.36-3.74); Total Protein 6.4 g/dL (6.4-8.2); Troponin I 27 ng/L (<or=76)
--- NOTE | 2025-01-17 12:39 | ED.GENADUL_ITS ---
Discharge Plan Disposition Patient Disposition: Admit to [facility] Condition: Serious Discharge Details Chief Complaint: GenMedical Clinical Impression: Symptomatic bradycardia, Anemia, RODOLFO (acute kidney injury), Hypovolemia, Syncope Primary Care Provider: Maryann Whitt ED Provider: Oracio Ferreira Home Meds and New Rx's Prescriptions: No Action pantoprazole 40 mg Tablet,Delayed Release (Dr/Ec) 40 mg PO DAILY PRN pregabalin 50 mg Capsule 50 mg PO BID Eliquis 5 mg Tablet 5 mg PO BID nitroglycerin 0.4 mg Tablet, Sublingual 0.4 mg sublingual Q5 MIN PRN X3 PRNQty: 30 0RF miconazole nitrate 2 % Powder 1 applic TOPICAL BID PRN rifaximin 550 mg Tablet 550 mg PO BID prazosin 5 mg capsule 10 mg PO QPM tamsulosin 0.4 mg Capsule 0.4 mg PO DAILY carvedilol phosphate 10 mg capsule, ER multiphase 24 hr 10 mg PO QHS Qty: 90 1RF Rx Instructions: must administer with a meal/food cefdinir 300 mg capsule 300 mg PO BID Qty: 20 0RF ferrous sulfate 325 mg (65 mg iron) Tablet 325 mg PO DAILY empagliflozin 25 mg Tablet 25 mg PO DAILY levothyroxine 200 mcg Tablet 100 mcg PO QAM Qty: 0 0RF cholecalciferol (vitamin D3) 25 mcg (1,000 unit) capsule 25 mcg PO DAILY diclofenac sodium [Arthritis Pain (diclofenac)] 1 % gel 2 g topical QID PRN Rx Instructions: apply to single elbow, wrist or hand; for hand includes palm/fingers/back of hand losartan 50 mg tablet 50 mg PO BID venlafaxine 150 mg capsule,extended release 24hr 150 mg PO DAILY rosuvastatin [Crestor] 20 mg Tablet 40 mg PO QPM Qty: 0 0RF clobetasol 0.05 % cream 1 applic topical DAILY acetaminophen [Tylenol] 325 mg Capsule 975 mg PO Q8H MDD 3000 PRN metformin 500 mg tablet extended release 24hr 500 mg PO DAILY Qty: 30 0RF simethicone 80 mg tablet,chewable 80 mg PO BID-QID PRNQty: 90 0RF insulin glargine [Lantus Solostar U-100 Insulin] 100 unit/mL (3 mL) insulin pen 10 unit subcut QAM Qty: 15 0RF melatonin 3 mg Tablet 3 mg PO HS Qty: 30 0RF cefpodoxime 200 mg tablet 200 mg PO Q12H Qty: 3 0RF Rx Instructions: must administer with a meal/food spironolactone 25 mg Tablet 12.5 mg PO DAILY Qty: 30 0RF lactulose 20 gram/30 mL Solution 20 g PO TID Qty: 1800 11RF Rx Instructions: to maintain colostomy output of 3-4 bags per day furosemide 20 mg tablet 20 mg PO Q OTHER DAY Qty: 15 0RF furosemide 20 mg tablet 10 mg PO DAILY PRNQty: 7 0RF Rx Instructions: Take for increased weight of 2 pounds for 2 consecutive days or 3 pounds in 5 days. Weight yourself daily and keep a log HPI General Date/Time Provider Initiated Documentation: 01/17/25 11:27 . Limitations to Documentation: altered mental status . Information obtained by: patient . HPI Narrative: HISTORY OF PRESENT ILLNESS 79-year-old male with multiple medical problems presents with general malaise. He experienced dizziness and possible syncope while ascending stairs, but remained standing. Patient also reports mild intermittent colostomy pain (3/10) since this morning, exacerbated by movement, with normal stool output. Observed questionable blood in stool, currently being tested by pcp. No leg or chest pain, vomiting, or fever. Reports dry mouth and dehydration. No recent infections or illnesses. Uncertain about usual heart rate and beta michael use. [facility] Colostomy for 43 years due to curatively treated colorectal cancer. Diagnosed with dementia. History limited secondary to poor historian with dementia. Related Data Home Medications ?Medication ?Instructions ?Recorded ?Confirmed apixaban 5 mg tablet (Eliquis) 5 mg PO BID 11/08/22 01/17/25 pantoprazole 40 mg tablet,delayed 40 mg PO DAILY PRN 11/08/22 01/17/25 release pregabalin 50 mg capsule 50 mg PO BID 11/08/22 01/17/25 nitroglycerin 0.4 mg sublingual 0.4 mg sublingual Q5 MIN PRN X3 02/10/23 01/17/25 tablet PRN #30 tabs ferrous sulfate 325 mg (65 mg 325 mg PO DAILY 03/08/23 01/17/25 iron) tablet empagliflozin 25 mg tablet 25 mg PO DAILY 04/09/23 01/17/25 levothyroxine 200 mcg tablet 100 mcg (1/2 x 200 mcg) PO QAM #0 04/10/23 01/17/25 tabs miconazole nitrate 2 % topical 1 applic topical BID PRN 06/16/23 01/17/25 powder rifaximin 550 mg tablet 550 mg PO BID 07/07/23 01/17/25 cholecalciferol (vitamin D3) 25 25 mcg PO DAILY 03/05/24 01/17/25 mcg (1,000 unit) capsule diclofenac sodium 1 % topical gel 2 g topical QID PRN 03/05/24 01/17/25 (Arthritis Pain (diclofenac)) losartan 50 mg tablet 50 mg PO BID 03/05/24 01/17/25 venlafaxine 150 mg 150 mg PO DAILY 03/05/24 01/17/25 capsule,extended release 24 hr acetaminophen 325 mg capsule 975 mg PO Q8H PRN 05/12/24 01/17/25 (Tylenol) insulin glargine 100 unit/mL (3 10 unit (0.1 mL) subcut QAM #15 mL 05/13/24 01/17/25 mL) subcutaneous pen (Lantus Solostar U-100 Insulin) simethicone 80 mg chewable tablet 80 mg PO BID-QID PRN #90 tabs 05/13/24 01/17/25 lactulose 20 gram/30 mL oral 20 g (30 mL) PO TID #1,800 mL 07/05/24 01/17/25 solution spironolactone 25 mg tablet 12.5 mg (1/2 x 25 mg) PO DAILY #30 07/05/24 01/17/25 tabs prazosin 5 mg capsule 10 mg PO QPM 08/04/24 01/17/25 tamsulosin 0.4 mg capsule 0.4 mg PO DAILY 08/04/24 01/17/25 carvedilol phosphate 10 mg 10 mg PO QHS #90 caps 08/06/24 01/17/25 capsule,[id number] multiphase docusate sodium 100 mg capsule 100 mg PO BID 01/17/25 01/17/25 furosemide 20 mg tablet 40 mg PO DAILY 01/17/25 01/17/25 lidocaine 5 % topical patch 1 patch topical DAILY 01/17/25 01/17/25 (Lidoderm) metformin 500 mg tablet,extended 2,000 mg PO QPM 01/17/25 01/17/25 release 24hr (osmotic) metoprolol succinate 25 mg capsule 25 mg PO DAILY 01/17/25 01/17/25 sprinkle, ext. release 24 hr potassium chloride 10 mEq 20 meq PO DAILY 01/17/25 01/17/25 tablet,extended release rosuvastatin 20 mg tablet (Crestor) 20 mg PO QPM 01/17/25 01/17/25 Previous Rx's ?Medication ?Instructions ?Recorded nitroglycerin 0.4 mg sublingual 0.4 mg sublingual Q5 MIN PRN X3 02/10/23 tablet PRN #30 tabs levothyroxine 200 mcg tablet 100 mcg (1/2 x 200 mcg) PO QAM #0 04/10/23 tabs insulin glargine 100 unit/mL (3 10 unit (0.1 mL) subcut QAM #15 mL 05/13/24 mL) subcutaneous pen (Lantus Solostar U-100 Insulin) simethicone 80 mg chewable tablet 80 mg PO BID-QID PRN #90 tabs 05/13/24 lactulose 20 gram/30 mL oral 20 g (30 mL) PO TID #1,800 mL 07/05/24 solution spironolactone 25 mg tablet 12.5 mg (1/2 x 25 mg) PO DAILY #30 07/05/24 tabs carvedilol phosphate 10 mg 10 mg PO QHS #90 caps 08/06/24 capsule,[id number] multiphase Allergies Allergy/AdvReac Type Severity Reaction Status Date / Time Penicillins Allergy Mild Itching Verified 01/17/25 11:28 morphine AdvReac Severe vomiting Verified 01/17/25 11:28 General Stated Complaint: GenMedical ANNA: 3 Exam Narrative Exam Narrative: PHYSICAL EXAM General Appearance: Asleep, arouses to verbal stimuli. Vital signs: Bradycardia. Normotensive. HEENT: Dry tongue. Pupils equal, round, and reactive. Extraocular movements and cranial nerves intact. Respiratory: Lungs clear. Cardiovascular: Bradycardia. Gastrointestinal: No ostomy bag leakage. Extremities: Full strength and normal sensation in upper and lower extremities. Skin: Warm and dry, no rash. Neurological: Patient is some forgetfulness and poor historian. Full strength all extremities. Cranial nerves intact. Course Vital Signs Vital signs: Vital Signs Temperature 36.3 C L 01/17/25 11:21 Pulse 48 L 01/17/25 11:21 Respiratory Rate 15 01/17/25 11:21 Blood Pressure 122/65 01/17/25 11:21 Pulse Oximetry 96 01/17/25 11:21 Temperature 36.3 C L 01/17/25 11:21 Temperature Source Oral 01/17/25 11:21 Pulse 48 L 01/17/25 11:21 Respiratory Rate 15 01/17/25 11:21 Blood Pressure 122/65 01/17/25 11:21 Blood Pressure Position Supine 01/17/25 11:21 Pulse Oximetry 96 01/17/25 11:21 Oxygen Delivery Method Room Air 01/17/25 11:21 Oxygen Flow Rate 0 01/17/25 11:21 Pain Level 4 01/17/25 11:21 Lab/Test Results Lab/Test Results: Laboratory Tests Range/Units 01/17/25 01/17/25 11:45 12:02 WBC (4.4-10.8) 10^3/uL 3.73 L RBC (4.36-5.78) 10^6/uL 4.17 L Hgb (13.5-17.5) g/dL 11.7 L Hct (40.0-50.0) % 37.0 L MCV (80-95) fL 89 MCH (27.0-33.0) pg 28.1 MCHC (32.0-36.0) % 31.6 L RDW (11.8-14.1) % 17.6 H Plt Count (130-400) 10^3/uL 72 L MPV (8.0-11.0) fL 10.5 Immature Gran % % 0.5 Neutrophils % % 78.6 Lymphocytes % % 10.5 Monocytes % % 8.0 Eosinophils % % 1.6 Basophils % % 0.8 Nucleated RBC % (0.0-0.3) % 0.0 Absolute Neutrophils (1.2-6.7) 10^3/uL 2.93 Absolute Lymphocytes (1.2-3.4) 10^3/uL 0.39 L Absolute Monocytes (0.1-0.8) 10^3/uL 0.30 Absolute Eosinophils (0.0-0.7) 10^3/uL 0.06 Absolute Basophils (0.0-0.2) 10^3/uL 0.03 RBC Morphology Normal Sodium (136-145) mmol/L 144 Potassium (3.5-5.1) mmol/L 3.7 Chloride (98-107) mmol/L 108 H Carbon Dioxide (21.0-32.0) mmol/L 22.5 Anion Gap (3-11) mmol/L 13.5 H BUN (7-18) mg/dL 22 H Creatinine (0.70-1.30) mg/dL 1.6 H Est GFR (CKD-EPI 2020) (mL/min/1.73m2) 44.10 Glucose (74-106) mg/dL 280 H Calcium (8.5-10.1) mg/dL 9.7 Total Bilirubin (0.2-1.0) mg/dL 2.6 H AST (15-37) U/L 33 ALT (16-63) U/L 20 Alkaline Phosphatase (46-116) U/L 134 H Troponin I (<or=76) ng/L 27 Total Protein (6.4-8.2) g/dL 6.4 Albumin (3.4-5.0) g/dL 2.8 L TSH (0.36-3.74) uIU/mL 4.17 H Urine Color (Yellow) Yellow Urine Clarity (Clear) Cloudy Urine pH (5-8) 5.5 Ur Specific [place] (1.005-1.025) 1.010 Urine Protein (Neg-Trace) mg/dL Negative Urine Ketones (Negative) mg/dL Negative Urine Blood (Negative) Negative Urine Nitrite (Negative) Negative Urine Bilirubin (Negative) Negative Urine Urobilinogen (Up to 0.2) mg/dL 0.2 Ur Leukocyte Esterase (Negative) Negative Urine Glucose (Negative) mg/dL 500 H Medical Decision Making ASSESSMENT AND PLAN Initial Assessment: Mr. Osmar Mckeon is a 79-year-old male presenting with general malaise, dizziness, and colostomy pain. Had syncopal episode last night. Patient normotensive but bradycardic on initial evaluation. Patient with heart rate in the 30s while sleeping. Normotensive, saturating well in no respiratory distress. Differential Diagnosis: - Bradycardia: Heart rate 30s-40s while asleep. Presentation concerning for symptomatic bradycardia. Patient is on beta-michael. Labs reviewed and no significant electrolyte abnormalities. ED Course: - monitor worker: Patient bradycardic in the 30s to 50s. - EKG was reviewed and interpreted by me: Please report, bradycardia 47 bpm, first-degree AV block with prolonged [place] interval 248. Left bundle branch pattern present. I compared to prior EKG from 12/17/2024, patient was bradycardic at that time with first-degree AV block and left bundle branch block. - Physical exam: Neurologically intact. Dehydrated with dry tongue. Pupils equal, round, reactive. Extraocular movements intact. Cranial nerves intact. - Plan: Obtain CT abdomen/pelvis to assess for acute surgical pathology related to the ostomy and prior colorectal cancer. - Administer IV fluid bolus. - Patient reassessed and remains bradycardic in the 40s to 50s. - Labs reviewed and no significant electrolyte abnormalities. Patient does have RODOLFO with creatinine of 1.6. Patient does have hyperglycemia and glucose in his urine. Concern for poorly controlled diabetes. TSH is elevated. Consider hypothyroidism. Free T4 send out pending. - Colostomy was cleansed by nursing and no abnormalities on exam. - CT of the abdomen pelvis was interpreted by radiology: No acute surgical pathology. Please see report below. -Reviewed medical record: Patient was seen here in the emergency department 1 month ago for chest pain. Final Assessment: Patient presents with dizziness, colostomy pain, and bradycardia. Physical exam reveals dehydration and bradycardia. Plan includes CT abdomen/pelvis and IV fluid bolus. Clinical Impression: - Abdominal pain: Colostomy pain (3/10) since this morning, worsening with movement. Normal stool output, but blood in stool being tested. - Bradycardia with syncopal episode: Heart rate 30s-40s, concerning for symptomatic bradycardia. Consider secondary to beta-michael versus noncompliance with levothyroxine. - Dehydration: Patient given IV fluid bolus. - Hepatic lesion seen on CT. Disposition: - Admission: Patient will stay in the hospital for further monitoring and treatment. I called and spoke with Dr. Blancas at 310p, discussed ED presentation course, he will admit the patient. Plan for cardiology consult. Care transitioned to hospitalist service. MDM Components Evaluation: - Number of Differential Diagnoses or Management Options: Bradycardia. - Amount and Complexity of Data Reviewed: monitor worker, physical exam, CT abdomen/pelvis, blood levels including chemistries and electrolytes. - Risk of Complication and Morbidity or Mortality: High risk due to symptomatic bradycardia and dehydration. This document was written with the assistance of KAJAL Conway. The patient consented to its use. Imaging Data Radiologic Study: Imaging: CT Scan Radiologist's impression: 1. Again noted is left-sided colostomy in this patient has had prior bowel surgeries. There is moderate increased amount of fecal material seen throughout the colon, similar to the previous study. In addition, there are anterior abdominal wall small bowel loops which appear to be adhered to the inner aspect of the anterior abdominal wall fascia. However, there is no evidence of bowel obstruction, free air, nor abscess. 2. Cirrhotic liver with TIPS and splenomegaly again noted. There is no ascites. 3. There is a subtle subcapsular hypodensity in the liver right hepatic lobe measuring 14 x 12 mm, not seen on prior imaging studies. May just represent a benign hemangioma. Recommend further imaging if clinically indicated, starting with ultrasound. In addition there is a small benign cyst in the left hepatic lobe which is unchanged. 4. There 2 pancreatic parenchymal calcifications as described above. Lab Data Lab results reviewed: Yes I reviewed the patient's lab results. Labs: Laboratory Tests Range/Units 01/17/25 01/17/25 01/17/25 11:45 12:02 13:18 WBC (4.4-10.8) 10^3/uL 3.73 L RBC (4.36-5.78) 10^6/uL 4.17 L Hgb (13.5-17.5) g/dL 11.7 L Hct (40.0-50.0) % 37.0 L MCV (80-95) fL 89 MCH (27.0-33.0) pg 28.1 MCHC (32.0-36.0) % 31.6 L RDW (11.8-14.1) % 17.6 H Plt Count (130-400) 10^3/uL 72 L MPV (8.0-11.0) fL 10.5 Immature Gran % % 0.5 Neutrophils % % 78.6 Lymphocytes % % 10.5 Monocytes % % 8.0 Eosinophils % % 1.6 Basophils % % 0.8 Nucleated RBC % (0.0-0.3) % 0.0 Absolute Neutrophils (1.2-6.7) 10^3/uL 2.93 Absolute Lymphocytes (1.2-3.4) 10^3/uL 0.39 L Absolute Monocytes (0.1-0.8) 10^3/uL 0.30 Absolute Eosinophils (0.0-0.7) 10^3/uL 0.06 Absolute Basophils (0.0-0.2) 10^3/uL 0.03 RBC Morphology Normal Sodium (136-145) mmol/L 144 Potassium (3.5-5.1) mmol/L 3.7 Chloride (98-107) mmol/L 108 H Carbon Dioxide (21.0-32.0) mmol/L 22.5 Anion Gap (3-11) mmol/L 13.5 H BUN (7-18) mg/dL 22 H Creatinine (0.70-1.30) mg/dL 1.6 H Est GFR (CKD-EPI 2020) (mL/min/1.73m2) 44.10 Glucose (74-106) mg/dL 280 H Calcium (8.5-10.1) mg/dL 9.7 Total Bilirubin (0.2-1.0) mg/dL 2.6 H AST (15-37) U/L 33 ALT (16-63) U/L 20 Alkaline Phosphatase (46-116) U/L 134 H Troponin I (<or=76) ng/L 27 26 Total Protein (6.4-8.2) g/dL 6.4 Albumin (3.4-5.0) g/dL 2.8 L TSH (0.36-3.74) uIU/mL 4.17 H Urine Color (Yellow) Yellow Urine Clarity (Clear) Cloudy Urine pH (5-8) 5.5 Ur Specific [place] (1.005-1.025) 1.010 Urine Protein (Neg-Trace) mg/dL Negative Urine Ketones (Negative) mg/dL Negative Urine Blood (Negative) Negative Urine Nitrite (Negative) Negative Urine Bilirubin (Negative) Negative Urine Urobilinogen (Up to 0.2) mg/dL 0.2 Ur Leukocyte Esterase (Negative) Negative Urine Glucose (Negative) mg/dL 500 H COVID-19 Source Nasopharynx SARS-CoV-2 (PCR) (Negative) Negative Influenza Type A (PCR) (Negative) Negative Influenza Type B (PCR) (Negative) Negative RSV (PCR) (Negative) Negative Quality:SDOH Health Related Social Needs: Health related social needs details Unable to get in a nd out of home, ambulate or perform ADLs. PFSH All Active Problems (Updated 01/17/25 @ 15:24 by Oracio Ferreira MD) Syncope (Chronic) Hypovolemia (Acute) RODOLFO (acute kidney injury) (Acute) Symptomatic bradycardia (Acute) Acute hypokalemia (Acute) Family conflict (Acute) Chest pain in adult (Acute) Fall (Acute) Chronic heart failure with reduced ejection fraction (HFrEF, <= 40%) (Chronic) Anemia (Chronic) Thrombocytopenia (Chronic) Colostomy care (Acute) Chronic low back pain (Chronic) Hematuria (Acute) Cirrhosis of liver without ascites (Chronic) Elevated troponin level not due myocardial infarction (Acute) Diabetes (Chronic) Leukopenia (Acute) Oral candidiasis (Acute) Sepsis syndrome (Acute) PAF (paroxysmal atrial fibrillation) (Chronic) Gram-negative bacteremia (Acute) Cellulitis (Acute) Lower urinary obstructive symptom (Acute) Anemia of chronic disease (Acute) Thrombocytopenia (Chronic) Ventricular ectopy (Acute) Sinus bradycardia (Acute) Leukocytosis (Acute) Hypertension (Chronic) Elevated lactic acid level (Acute) CHF (congestive heart failure) (Chronic) No-show for appointment (Acute) Left rotator cuff tear (Acute) Acute UTI (urinary tract infection) (Acute) Weakness (Acute) Non-ST elevation MN (NSTEMI) (Acute) Pre-syncope (Acute) Frequent falls (Acute) Orthostatic hypotension (Acute) Chronic atrial fibrillation (Chronic) Type 2 diabetes mellitus (Chronic) Hypokalemia (Acute) Bradycardia (Acute) Multiple falls (Acute) Acute metabolic encephalopathy (Acute) Medication monitoring encounter (Acute) ANETTE (obstructive sleep apnea) (Chronic) Chest pain (Acute) CHF exacerbation (Acute) CHF (congestive heart failure) (Chronic) EF 25%- 2023 Medical History Goals of care, counseling/discussion Lactic acidosis UTI (urinary tract infection) Urinary tract infection Advanced care planning/counseling discussion Palliative care encounter Followed by [facility] Bowel obstruction Sepsis Heart failure with reduced ejection fraction Hypothyroidism Small bowel obstruction Lactic acid acidosis Creatinine elevation Acute UTI Anticoagulated COVID Recurrent intestinal obstruction History of colon cancer Chronic anticoagulation Portal hypertension Cirrhosis TIPs placed (?when, 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, Dx [facility] as per pt Non-insulin dependent type 2 diabetes mellitus Incontinence Hypertension Scleral icterus Surgical History S/P TIPS (transjugular intrahepatic portosystemic shunt) H/O left hemicolectomy Colostomy in place Social History Smoking/Tobacco Use Status: Former Tobacco Use Smoking risk assessment performed?: Yes Alcohol Intake: former Drug use: Never Substance use type: does not use Housing: house Do you feel safe at home: Yes Do you feel safe in your relationship?: Yes Additional Social history: Lives with , son, and sick [id number] in [place], [place] .
[2025-01-17] MEDS: Normal Saline - Diluent 50 ML VIAL IJ (12:45)
[2025-01-17] MEDS: Omnipaque 350 MG/ML 100 ML BTL IJ (13:01)
--- NOTE | 2025-01-17 13:02 | DI.CT_ITS ---
Exam(s) CT ABDOMEN PELVIS W EXAM: CT ABDOMEN PELVIS W CLINICAL HISTORY: pain about ostomy. TECHNIQUE: Imaging Protocol: Axial computed tomography images with coronal and sagittal reformatted images were created and reviewed CONTRAST MATERIAL: Intravenous: Omnipaque-350 100cc Oral: None COMPARISON: CT CT CHEST/ABD/PEL W from 07/28/[address] ABDOMEN PELVIS WO from 08/05/[address] ABDOMEN PELVIS W from 08/07/2024 FINDINGS: VISUALIZED LUNG BASES: No nodules nor pleural effusions evident. ABDOMEN: GI: Again noted is evidence of prior colon surgeries and a left sided colostomy site is again evident which appears satisfactory. The rectum is oversewn. Some of the small bowel loops are again noted to be tethered to the anterior abdominal wall, most probably related to scarring, but there is no james dence of bowel obstruction, free air, abscess, nor ascites. The previously described dilated bowel l oops in the central pelvis is less dilated on today's study and appears to be an anastomosis site. LIVER: Again noted is a cirrhotic appearing liver with a TIPS stent in place extending from between t he main intrahepatic portal vein and right systemic pulmonary vein just prior to its emptying into th e IVC. Small cyst in the left hepatic lobe is again noted. There is a subcapsular hypodensity in th e right hepatic lobe noted which measures 1.4 by 1.2 cm, more evident than on the prior study althoug h this may be in part related to differences in bolus timing. This may represent an hemangioma altho ugh cannot exclude other pathology. This subcapsular right hepatic lobe finding is not evident on th e prior CT scans. There are no dilated intrahepatic ducts. GALLBLADDER/BILIARY: There are tiny punctate densities in the gallbladder fundus which may represent calculi. No gallbladder wall edema nor pericholecystic fluid. The CBD does not appear dilated. PANCREAS: No evidence of pancreatic mass nor dilatation of the pancreatic duct. There are 2 calcific ations noted in the. One of these is in the uncinate process, unchanged. The other is in the head o f the pancreas intimately associated with the posterior wall of the CBD just prior to entering the du odenum. There is CBD diameter at this level is upper normal/minimally prominent. No CT evidence of pancreatitis. SPLEEN: Splenomegaly is again noted. Craniocaudal spleen measurement is 13.5 cm. There are no splen ic lesions. The splenic vein is dilated to 1.5 cm. Splenic and portal veins are patent. ADRENALS: There are no significant adrenal masses. KIDNEYS:No cysts evident. No solid renal masses. No calculi nor hydronephrosis.. ABDOMINAL AORTA: Calcified but not enlarged. Also no aneurysmal dilatation of the iliac arteries. LYMPH NODES:There is no retroperitoneal nor paraaortic adenopathy. ABDOMINAL WALL: No evidence of significant anterior abdominal wall nor inguinal hernia. PELVIS: GI: No evidence of appendicitis.Sigmoid has been resected LYMPH NODES: There is no intrapelvic nor inguinal adenopathy. REPRODUCTIVE: Prostate size upper normal. URINARY BLADDER: No calculi nor obvious masses evident OSSEOUS: No fractures and no significant osseous lesions. Multilevel chronic degenerative disc disease. IMPRESSION: 1. Again noted is left-sided colostomy in this patient has had prior bowel surgeries. There is moder ate increased amount of fecal material seen throughout the colon, similar to the previous study. In addition, there are anterior abdominal wall small bowel loops which appear to be adhered to the inner aspect of the anterior abdominal wall fascia. However, there is no evidence of bowel obstruction, f ree air, nor abscess. 2. Cirrhotic liver with TIPS and splenomegaly again noted. There is no ascites. 3. There is a subtle subcapsular hypodensity in the liver right hepatic lobe measuring 14 x 12 mm, no t seen on prior imaging studies. May just represent a benign hemangioma. Recommend further imaging if clinically indicated, starting with ultrasound. In addition there is a small benign cyst in the l eft hepatic lobe which is unchanged. 4. There 2 pancreatic parenchymal calcifications as described above. RADIATION DOSE DELIVERED: 647.46mGy.cm Total DLP DATA REPOSITORY: All CT scans at this facility are submitted to the National Radiology Data Registry (NRDR) Dose Index Registry (DIR) with the [employer] (ACR). RADIATION OPTIMIZATION: All CT scans at this facility use at least one of these dose optimization te chniques: automated exposure control; mA and/or kV adjustment per patient size (includes targeted exa ms where dose is matched to clinical indication); or iterative reconstruction.
--- NOTE | 2025-01-17 13:06 | NUR.NOTE ---
Nursing Note: Request sent to DAVE Olson requesting an updated medication list
[2025-01-17] MEDS: Lactated Ringers 500 ML IV (13:13)
[2025-01-17 13:48] LABS: Troponin I 26 ng/L (<or=76)
[2025-01-17 14:02] LABS: COVID-19 PCR Negative (Negative); Influenza A PCR Negative (Negative); Influenza B PCR Negative (Negative); RSV PCR Negative (Negative)
[2025-01-17 14:13] LABS: Source Nasopharynx
--- NOTE | 2025-01-17 16:07 | NUR.NOTE ---
Patient stoma was removed because provider needed better assessment of the stoma site. Stoma pink and healthy looking with areas of erosion around the stoma site. MD aware of same. Stoma was washed with soap and water and patted dry. New appliance applied and pasted to the skin. Patient tolerated activities well.
--- NOTE | 2025-01-17 19:23 | W.PM.HP.N ---
Date of service: 01/17/25 Time of Service: 19:23 Assessment and Plan Assessment and plan (1) Small bowel obstruction: Status: Resolved Assessment and plan: no SBO on imaging today (2) Chronic heart failure with reduced ejection fraction (HFrEF, <= 40%): Status: Chronic Assessment and plan: LVEF 25% 01/2024. He has SOB at rest at times, worse with activity and edema. He can only walk short distances. (3) Cirrhosis of liver without ascites: Status: Chronic Assessment and plan: He reports that he has a liver lesion that may be cancer, no Bx- I do not see this on his imaging from this visit. Will order abd usn (4) Diabetes: Status: Chronic Assessment and plan: will start lantus/empagliflozin but will hold metformin and control with sliding scale instead (5) PAF (paroxysmal atrial fibrillation): Status: Chronic Assessment and plan: On eliquis (6) Symptomatic bradycardia: Status: Acute Assessment and plan: Will hold BB and see how he responds. Pt might be at a point where he can't tolerate BB although he does have significant CHF with ef appx 25% History of Present Illness History of Present Illness Chief Complaint: dizziness Narrative: This is a 79-year-old gentleman who has multiple medical problems but came into the ED today for dizziness and presyncope. While he was in the ED he was noted to have significant bradycardia with his heart rates as low as the mid 30s. At the time of my evaluation and his mentation it was back to normal as heart rate was in the low 60s to high 50s. Patient does have some dementia and there is concern about the patient overdosing his beta-michael. We were asked to admit the patient for observation and we did so. [facility] but there was no bed availability. He also has a medical history of colostomy due to colorectal cancer. His CBC has been reviewed and is noted to be leukopenic clinic as well as mildly anemic. Patient also has thrombocytopenia at 74 but no active bleeding that we can tell. His CMP is fairly benign with a BUN to creatinine ratio of 22/1.6 and GFR of 44. Glucose was 280. Magnesium was reviewed on this admission. TSH 4.17 with a free T4 pending. UA negative Except for some glucosuria. No microbiology is pending. Abdominal pelvic CT done today shows adhesions but no obstruction. Also has TIPS and splenomegaly. There is a recommendation for a hepatic ultrasound secondary to hypodensity on the liver. 79-year-old male with multiple medical problems presents with general malaise. He experienced dizziness and possible syncope while ascending stairs, but remained standing. Patient also reports mild intermittent colostomy pain (3/10) since this morning, exacerbated by movement, with normal stool output. Observed questionable blood in stool, currently being tested by pcp. No leg or chest pain, vomiting, or fever. Reports dry mouth and dehydration. No recent infections or illnesses. Uncertain about usual heart rate and beta michael use. [facility] Colostomy for 43 years due to curatively treated colorectal cancer. Diagnosed with dementia. [facility] All Active Problems (Updated 01/17/25 @ 19:36 by Osmar Blancas MD) Symptomatic bradycardia (Acute) Syncope (Chronic) Hypovolemia (Acute) RODOLFO (acute kidney injury) (Acute) Symptomatic bradycardia (Acute) Acute hypokalemia (Acute) Family conflict (Acute) Chest pain in adult (Acute) Fall (Acute) Chronic heart failure with reduced ejection fraction (HFrEF, <= 40%) (Chronic) Anemia (Chronic) Thrombocytopenia (Chronic) Colostomy care (Acute) Chronic low back pain (Chronic) Hematuria (Acute) Cirrhosis of liver without ascites (Chronic) Elevated troponin level not due myocardial infarction (Acute) Diabetes (Chronic) Leukopenia (Acute) Oral candidiasis (Acute) Sepsis syndrome (Acute) PAF (paroxysmal atrial fibrillation) (Chronic) Gram-negative bacteremia (Acute) Cellulitis (Acute) Lower urinary obstructive symptom (Acute) Anemia of chronic disease (Acute) Thrombocytopenia (Chronic) Ventricular ectopy (Acute) Sinus bradycardia (Acute) Leukocytosis (Acute) Hypertension (Chronic) Elevated lactic acid level (Acute) CHF (congestive heart failure) (Chronic) No-show for appointment (Acute) Left rotator cuff tear (Acute) Acute UTI (urinary tract infection) (Acute) Weakness (Acute) Non-ST elevation UT (NSTEMI) (Acute) Pre-syncope (Acute) Frequent falls (Acute) Orthostatic hypotension (Acute) Chronic atrial fibrillation (Chronic) Type 2 diabetes mellitus (Chronic) Hypokalemia (Acute) Bradycardia (Acute) Multiple falls (Acute) Acute metabolic encephalopathy (Acute) Medication monitoring encounter (Acute) ANETTE (obstructive sleep apnea) (Chronic) Chest pain (Acute) CHF exacerbation (Acute) CHF (congestive heart failure) (Chronic) EF 25%- 2023 Medical History Goals of care, counseling/discussion Lactic acidosis UTI (urinary tract infection) Urinary tract infection Advanced care planning/counseling discussion Palliative care encounter Followed by [facility] Bowel obstruction Sepsis Heart failure with reduced ejection fraction Hypothyroidism Small bowel obstruction Lactic acid acidosis Creatinine elevation Acute UTI Anticoagulated COVID Recurrent intestinal obstruction History of colon cancer Chronic anticoagulation Portal hypertension Cirrhosis TIPs placed (?when, [facility]? 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, Dx [facility] as per pt Non-insulin dependent type 2 diabetes mellitus Incontinence Hypertension Scleral icterus Surgical History S/P TIPS (transjugular intrahepatic portosystemic shunt) H/O left hemicolectomy Colostomy in place Social History Smoking/Tobacco Use Status: Former Tobacco Use Smoking risk assessment performed?: Yes Alcohol Intake: former Drug use: Never Substance use type: does not use Housing: house Do you feel safe at home: Yes Do you feel safe in your relationship?: Yes Additional Social history: Lives with , son, and sick [id number] in [place], moved up from [place] in 2019. [place] . Meds Allergies and Home Medications Allergies Allergy/AdvReac Type Severity Reaction Status Date / Time Penicillins Allergy Mild Itching Verified 01/17/25 11:28 morphine AdvReac Severe vomiting Verified 01/17/25 11:28 Home Medications ?Medication ?Instructions ?Recorded ?Confirmed ?Type apixaban 5 mg tablet (Eliquis) 5 mg PO BID 11/08/22 01/17/25 History pantoprazole 40 mg tablet,delayed 40 mg PO DAILY PRN 11/08/22 01/17/25 History release pregabalin 50 mg capsule 50 mg PO BID 11/08/22 01/17/25 History nitroglycerin 0.4 mg sublingual 0.4 mg sublingual Q5 MIN PRN X3 02/10/23 01/17/25 Rx tablet PRN #30 tabs ferrous sulfate 325 mg (65 mg 325 mg PO DAILY 03/08/23 01/17/25 History iron) tablet empagliflozin 25 mg tablet 25 mg PO DAILY 04/09/23 01/17/25 History levothyroxine 200 mcg tablet 100 mcg (1/2 x 200 mcg) PO QAM #0 04/10/23 01/17/25 Rx tabs miconazole nitrate 2 % topical 1 applic topical BID PRN 06/16/23 01/17/25 History powder rifaximin 550 mg tablet 550 mg PO BID 07/07/23 01/17/25 History cholecalciferol (vitamin D3) 25 25 mcg PO DAILY 03/05/24 01/17/25 History mcg (1,000 unit) capsule diclofenac sodium 1 % topical gel 2 g topical QID PRN 03/05/24 01/17/25 History (Arthritis Pain (diclofenac)) losartan 50 mg tablet 50 mg PO BID 03/05/24 01/17/25 History venlafaxine 150 mg 150 mg PO DAILY 03/05/24 01/17/25 History capsule,extended release 24 hr acetaminophen 325 mg capsule 975 mg PO Q8H PRN 05/12/24 01/17/25 History (Tylenol) insulin glargine 100 unit/mL (3 10 unit (0.1 mL) subcut QAM #15 mL 05/13/24 01/17/25 Rx mL) subcutaneous pen (Lantus Solostar U-100 Insulin) simethicone 80 mg chewable tablet 80 mg PO BID-QID PRN #90 tabs 05/13/24 01/17/25 Rx lactulose 20 gram/30 mL oral 20 g (30 mL) PO TID #1,800 mL 07/05/24 01/17/25 Rx solution spironolactone 25 mg tablet 12.5 mg (1/2 x 25 mg) PO DAILY #30 07/05/24 01/17/25 Rx tabs prazosin 5 mg capsule 10 mg PO QPM 08/04/24 01/17/25 History tamsulosin 0.4 mg capsule 0.4 mg PO DAILY 08/04/24 01/17/25 History carvedilol phosphate 10 mg 10 mg PO QHS #90 caps 08/06/24 01/17/25 Rx capsule,ext.umicapt63ud multiphase docusate sodium 100 mg capsule 100 mg PO BID 01/17/25 01/17/25 History furosemide 20 mg tablet 40 mg PO DAILY 01/17/25 01/17/25 History lidocaine 5 % topical patch 1 patch topical DAILY 01/17/25 01/17/25 History (Lidoderm) metformin 500 mg tablet,extended 2,000 mg PO QPM 01/17/25 01/17/25 History release 24hr (osmotic) metoprolol succinate 25 mg capsule 25 mg PO DAILY 01/17/25 01/17/25 History sprinkle, ext. release 24 hr potassium chloride 10 mEq 20 meq PO DAILY 01/17/25 01/17/25 History tablet,extended release rosuvastatin 20 mg tablet (Crestor) 20 mg PO QPM 01/17/25 01/17/25 History Exam Narrative Exam Narrative: PHYSICAL EXAM General Appearance: Asleep, arouses to verbal stimuli. can give linear history Vital signs: Bradycardia. Normotensive. HEENT: Dry tongue. Pupils equal, round, and reactive. Extraocular movements and cranial nerves intact. Respiratory: Lungs clear. Cardiovascular: Bradycardia. Gastrointestinal: No ostomy bag leakage. Extremities: Full strength and normal sensation in upper and lower extremities. Skin: Warm and dry, no rash. Neurological: Patient is some forgetfulness and poor historian. Full strength all extremities. Cranial nerves intact. Results Labs 01/17/25 11:45 01/17/25 11:45 Labs: Laboratory Results - last 24 hr 01/17/25 01/17/25 01/17/25 11:45 12:02 13:18 WBC 3.73 L RBC 4.17 L Hgb 11.7 L Hct 37.0 L MCV 89 MCH 28.1 MCHC 31.6 L RDW 17.6 H Plt Count 72 L MPV 10.5 Immature Gran % 0.5 Neutrophils % 78.6 Lymphocytes % 10.5 Monocytes % 8.0 Eosinophils % 1.6 Basophils % 0.8 Nucleated RBC % 0.0 Absolute Neutrophils 2.93 Absolute Lymphocytes 0.39 L Absolute Monocytes 0.30 Absolute Eosinophils 0.06 Absolute Basophils 0.03 RBC Morphology Normal Sodium 144 Potassium 3.7 Chloride 108 H Carbon Dioxide 22.5 Anion Gap 13.5 H BUN 22 H Creatinine 1.6 H Est GFR (CKD-EPI 2020) 44.10 Glucose 280 H Calcium 9.7 Total Bilirubin 2.6 H AST 33 ALT 20 Alkaline Phosphatase 134 H Troponin I 27 26 Total Protein 6.4 Albumin 2.8 L TSH 4.17 H Urine Color Yellow Urine Clarity Cloudy Urine pH 5.5 Ur Specific [place] 1.010 Urine Protein Negative Urine Ketones Negative Urine Blood Negative Urine Nitrite Negative Urine Bilirubin Negative Urine Urobilinogen 0.2 Ur Leukocyte Esterase Negative Urine Glucose 500 H COVID-19 Source Nasopharynx SARS-CoV-2 (PCR) Negative Influenza Type A (PCR) Negative Influenza Type B (PCR) Negative RSV (PCR) Negative Last Vital Signs Temp 36.3 C L 01/17/25 11:30 Pulse 48 L 01/17/25 16:01 Resp 12 01/17/25 16:01 BP 146/47 H 01/17/25 16:01 Pulse Ox 95 01/17/25 16:01 Time Spent Time spent with Patient: <40 minutes Time was spent: preparing to see the patient(eg.review tests), obtaining and/or reviewing separately otained hiistory, ordering medications,tests, procedures, referring, communicating with other health rn progressive care, indepentently interpreting results, counseling the patient and care coordination
--- NOTE | 2025-01-17 20:11 | W.PC.ACHO ---
Registration Status: Primary Language: Preferred Language: ED Information & Data Chief Complaint GenMedical 01/17/25 13:47 Chief Complaint GenMedical 01/17/25 12:39 Triage Note BIBA from home for not 01/17/25 11:21 feeling well. No CP, no SOB , no N/V/D, afebrile. Denies body aches i just generally feel unwell w/ new pain around colostomy site. BGL 337, h/o DM but does not take insulin. Lives w/ and son who both are aware he is here Medical / Surgical History (Last Reviewed 01/17/25 @ 15:22 by Oracio Ferreira MD) Goals of care, counseling/discussion Lactic acidosis UTI (urinary tract infection) Urinary tract infection Advanced care planning/counseling discussion Palliative care encounter Bowel obstruction Sepsis Heart failure with reduced ejection fraction Hypothyroidism Small bowel obstruction Lactic acid acidosis Creatinine elevation Acute UTI Anticoagulated COVID Recurrent intestinal obstruction History of colon cancer Chronic anticoagulation Portal hypertension Cirrhosis Confusion Colon cancer Depression Endocarditis Non-insulin dependent type 2 diabetes mellitus Incontinence Hypertension Scleral icterus (Last Reviewed 01/17/25 @ 15:22 by Oracio Ferreira MD) S/P TIPS (transjugular intrahepatic portosystemic shunt) H/O left hemicolectomy Colostomy in place Most Recent Vital Signs Temperature 36.3 C L 01/17/25 11:30 Temperature Source Oral 01/17/25 11:30 Pulse 48 L 01/17/25 16:01 Pulse 51 L 01/17/25 16:01 Respiratory Rate 12 01/17/25 16:01 Respiratory Effort Normal, Non-Labored 01/17/25 13:48 Respiratory Depth Normal 01/17/25 13:48 Respiratory Pattern Normal 01/17/25 13:48 Blood Pressure 146/47 H 01/17/25 16:01 Blood Pressure Mean 80 01/17/25 16:01 Blood Pressure Position Supine 01/17/25 11:21 Pulse Oximetry 95 01/17/25 16:01 Oxygen Delivery Method Room Air 01/17/25 11:30 Oxygen Flow Rate 0 01/17/25 11:21 Pain Level 4 01/17/25 11:21 Allergies Penicillins Allergy (Mild, Verified 01/17/25 11:28) Itching morphine Adverse Reaction (Severe, Verified 01/17/25 11:28) vomiting Active Medications Generic Name Dose Route Start Last Admin Trade Name Freq PRN Reason Stop Dose Admin Iohexol 100 ml 01/17/25 13:15 01/17/25 13:01 Omnipaque 350 Mg/Ml 100 Ml Btl IJ 02/16/25 23:59 100 ml DIRECTED MAN Administration Sodium Chloride 50 ml 01/17/25 12:45 01/17/25 12:45 Normal Saline - Diluent 50 Ml Vial IJ 50 ml .FOR DI USE MAN Administration IV IV Catheter Type [Left Saline Lock Antecubital] IV Catheter Gauge [Left 18 Antecubital] Diet Orders Category Date Time Status Regular/Normal [DIET] Nutrition 01/18/25 Breakfast Ordered Diagnostics 01/17/25 01/17/25 01/17/25 Range/Units 13:18 12:02 11:45 WBC 3.73 L (4.4-10.8) 10^3/uL RBC 4.17 L (4.36-5.78) 10^6/uL Hgb 11.7 L (13.5-17.5) g/dL Hct 37.0 L (40.0-50.0) % MCV 89 (80-95) fL MCH 28.1 (27.0-33.0) pg MCHC 31.6 L (32.0-36.0) % RDW 17.6 H (11.8-14.1) % Plt Count 72 L (130-400) 10^3/uL MPV 10.5 (8.0-11.0) fL Immature Gran % 0.5 % Neutrophils % 78.6 % Lymphocytes % 10.5 % Monocytes % 8.0 % Eosinophils % 1.6 % Basophils % 0.8 % Nucleated RBC % 0.0 (0.0-0.3) % Absolute Neutrophils 2.93 (1.2-6.7) 10^3/uL Absolute Lymphocytes 0.39 L (1.2-3.4) 10^3/uL Absolute Monocytes 0.30 (0.1-0.8) 10^3/uL Absolute Eosinophils 0.06 (0.0-0.7) 10^3/uL Absolute Basophils 0.03 (0.0-0.2) 10^3/uL RBC Morphology Normal Sodium 144 (136-145) mmol/L Potassium 3.7 (3.5-5.1) mmol/L Chloride 108 H (98-107) mmol/L Carbon Dioxide 22.5 (21.0-32.0) mmol/L Anion Gap 13.5 H (3-11) mmol/L BUN 22 H (7-18) mg/dL Creatinine 1.6 H (0.70-1.30) mg/dL Est GFR (CKD-EPI 2020) 44.10 (mL/min/1.73m2) Glucose 280 H (74-106) mg/dL Calcium 9.7 (8.5-10.1) mg/dL Total Bilirubin 2.6 H (0.2-1.0) mg/dL AST 33 (15-37) U/L ALT 20 (16-63) U/L Alkaline Phosphatase 134 H (46-116) U/L Troponin I 26 27 (<or=76) ng/L Total Protein 6.4 (6.4-8.2) g/dL Albumin 2.8 L (3.4-5.0) g/dL TSH 4.17 H (0.36-3.74) uIU/mL Free T4 Pending Urine Color Yellow (Yellow) Urine Clarity Cloudy (Clear) Urine pH 5.5 (5-8) Ur Specific [place] 1.010 (1.005-1.025) Urine Protein Negative (Neg-Trace) mg/dL Urine Ketones Negative (Negative) mg/dL Urine Blood Negative (Negative) Urine Nitrite Negative (Negative) Urine Bilirubin Negative (Negative) Urine Urobilinogen 0.2 (Up to 0.2) mg/dL Ur Leukocyte Esterase Negative (Negative) Urine Glucose 500 H (Negative) mg/dL COVID-19 Source Nasopharynx SARS-CoV-2 (PCR) Negative (Negative) Influenza Type A (PCR) Negative (Negative) Influenza Type B (PCR) Negative (Negative) RSV (PCR) Negative (Negative) Intake and Output - 24 Hour Total 01/17/25 11:11 thru 01/17/25 16:13 Output Total 400 Balance -400 Weight 109.5 kg Output: Urine 400 Other: Urine Color Yellow Urine Appearance Clear Urine Odor None Falls Risk Assessment History of Falls Previous History 01/17/25 13:48 Contributing Factors Unstable,Impairments 01/17/25 13:48 Ambulatory Aids Uses ambulatory device 01/17/25 13:48 Tubes/Lines None 01/17/25 13:48 Gait Evaluation W/any additional score 01/17/25 13:48 Cognition No cognitive impairment 01/17/25 13:48 Fall Total Score 56 01/17/25 13:48 Level of Risk High Risk 01/17/25 13:48 Problems (Last Reviewed 01/17/25 @ 15:22 by Oracio Ferreira MD) Symptomatic bradycardia (Acute) Syncope (Chronic) Hypovolemia (Acute) RODOLFO (acute kidney injury) (Acute) Symptomatic bradycardia (Acute) Chronic heart failure with reduced ejection fraction (HFrEF, <= 40%) (Chronic) Anemia (Chronic) Cirrhosis of liver without ascites (Chronic) Diabetes (Chronic) PAF (paroxysmal atrial fibrillation) (Chronic) Notes 01/17/25 16:07 Nursing Notes by Willa Lowery Patient stoma was removed because provider needed better assessment of the stoma site. Stoma pink and healthy looking with areas of erosion around the stoma site. MD aware of same. Stoma was washed with soap and water and patted dry. New appliance applied and pasted to the skin. Patient tolerated activities well. Initialized on 01/17/25 16:07 - END OF NOTE 01/17/25 13:06 Nursing Notes by Debora Ramos Nursing Note: Request sent to Sourav Olson requesting an updated medication list Initialized on 01/17/25 13:06 - END OF NOTE v v v v v v v v v Sending and/or Receiving Nurses: Please use comment section below to note any information pertinent to the patient hand-off not included above. Information / Comments: Report received from:CHRISTIANNE Crouch. Reports patient is alert and oriented. He is weak. He had an episode of bradycardia in the 30-40s earlier. C/O dizziness. Ostomy appliance was changed in ER. Patient has hesitancy when he voids, is following up with urology. All questions asked, answered. Patient to be transferred to [facility].
[2025-01-17] MEDS: Pregabalin 50 MG CAP PO (21:23)
[2025-01-17] MEDS: Apixaban 5 MG TAB PO (21:23)
[2025-01-17] MEDS: Losartan 50 MG TAB PO (21:23)
[2025-01-17] MEDS: Rifaximin 550 MG TAB PO (21:23)
[2025-01-17] MEDS: Docusate Sodium 100 MG CAP PO (21:23)
[2025-01-17] MEDS: Rosuvastatin 20 MG TAB PO (21:23)
[2025-01-17] MEDS: Normal Saline Flush 10 ML SYR IVP (21:24)
[2025-01-17] MEDS: Prazosin 5 MG CAP 10 MG PO (22:06)
[2025-01-17 22:31] LABS: T4, Free 1.7 ng/dL (0.8-2.2)
--- NOTE | 2025-01-18 | DI.US_ITS ---
Exam(s) US ABDOMEN EXAM: US ABDOMEN CLINICAL HISTORY: abnormal finding on CT TECHNIQUE: Ultrasound of complete upper abdomen performed using standard protocol. COMPARISON: US US ABDOMEN LIMITED from 06/30/[address] ABDOMEN PELVIS W from 01/17/2025 FINDINGS: There is no ascites evident. LIVER: TIPS stent noted. Flow is demonstrated within the TIPS stent. Liver appears cirrhotic. There is a subcapsular finding in the right hepatic lobe which measures 1.6 x 1.2 cm and corresponds to the finding on the recent CT scan. This does not have the typical hyperechoic ultrasound appearanc e of a benign hemangioma. Otherwise, there is a benign-appearing septated cyst in the left hepatic lobe measuring 1.3 x 0.9 cm GALLBLADDER/BILIARY: There tiny polyps in the gallbladder. No mobile gallstones identified. No gallbl adder wall edema. The common hepatic duct isnot dilated, measuring 5mm at the level of alexis hepatis. PANCREAS: There is no evidence of pancreatic mass nor dilatation of the pancreatic duct. SPLEEN: Splenomegaly noted. No intrasplenic lesions. KIDNEYS:Kidneys exhibit normal size with no evidence of solid mass, calculus, nor hydronephrosis. The re is a 2 cm septated cyst in left kidney. ABDOMINAL AORTA: There is no evidence of abdominal aortic aneurysm. IVC: Normal diameter where visualized. IMPRESSION: 1. Two findings in the liver as described above. The subcapsular finding in the right hepatic lobe w hich measures 1.6 x 1.2 cm and which corresponds to the finding on the recent CT scan does not exhibi t typical hyperechoic appearance of a benign hemangioma. There is a possibly that this is an atypical hemangioma or complicated cyst. Cannot exclude more concerning pathology in this cirrhotic liver. Th ere is no ascites.. 2. Other finding in the liver is a septated cyst in the left hepatic lobe measuring 13 x 9 mm. 3. There is a TIPS stent again noted and this is not occluded Gallbladder polyps without evidence of acute cholecystitis. Splenomegaly again noted. DATA REPOSITORY:
[2025-01-18 03:09] VITALS: BP 137/55; PULSE 53; RESP 16; TEMP 36.5; O2SAT 89
[2025-01-18 03:15] VITALS: O2SAT 94
[2025-01-18 07:22] LABS: Abs Immature Grans 0.01 10^3/uL (0.0-0.06); Absolute Basophil Count 0.02 10^3/uL (0.0-0.2); Absolute Eosinophil Count 0.23 10^3/uL (0.0-0.7); Absolute Lymphocyte Count 0.51 10^3/uL (1.2-3.4); Absolute Neutrophil Count 2.26 10^3/uL (1.2-6.7); Basophils % 0.6 %; Eosinophils % 6.9 %; HCT 32.1 % (40.0-50.0); HGB 10.3 g/dL (13.5-17.5); Immature Grans % 0.3 %; Lymphocytes % 15.3 %; MCHC 32.1 % (32.0-36.0); MCV 87 fL (80-95); MPV 10.4 fL (8.0-11.0); Neutrophils % 67.9 %; RBC 3.68 10^6/uL (4.36-5.78); RDW 17.3 % (11.8-14.1); RDW-SD 53.7 fL; WBC 3.33 10^3/uL (4.4-10.8)
[2025-01-18 07:40] VITALS: BP 116/55; BP 124/70; BP 127/46; PULSE 47; PULSE 57; PULSE 60; RESP 18; TEMP 36.9; O2SAT 95
[2025-01-18 07:41] LABS: ALT 30 U/L (16-63); AST 45 U/L (15-37); Albumin 2.3 g/dL (3.4-5.0); Alkaline Phosphatase 117 U/L (46-116); Anion Gap 8.3 mmol/L (3-11); BUN 24 mg/dL (7-18); Bilirubin, Total 2.6 mg/dL (0.2-1.0); CO2 25.7 mmol/L (21.0-32.0); CREATININE 1.2 mg/dL (0.70-1.30); Calcium 9.1 mg/dL (8.5-10.1); Chloride 112 mmol/L (98-107); Estimated GFR 62.29 (mL/min/1.73m2); Glucose 128 mg/dL (74-106); Potassium 3.3 mmol/L (3.5-5.1); Sodium 146 mmol/L (136-145); Total Protein 5.4 g/dL (6.4-8.2)
[2025-01-18] MEDS: Levothyroxine 100 MCG TAB PO (07:47)
[2025-01-18 07:48] LABS: Platelet Count 65 10^3/uL (130-400)
[2025-01-18] MEDS: Lidocaine 5% Patch 1 PATCH TP (08:29)
[2025-01-18] MEDS: Lactulose 20 GM/30 ML CUP PO ×3 (08:30→20:12)
[2025-01-18] MEDS: Normal Saline Flush 10 ML SYR IVP ×2 (08:30→20:13)
[2025-01-18] MEDS: Pregabalin 50 MG CAP PO ×2 (08:30→20:13)
[2025-01-18] MEDS: Potassium Chloride 10 MEQ TABCR 20 MEQ PO (08:31)
[2025-01-18] MEDS: Apixaban 5 MG TAB PO ×2 (08:31→20:13)
[2025-01-18] MEDS: Docusate Sodium 100 MG CAP PO ×2 (08:31→20:13)
[2025-01-18] MEDS: Venlafaxine 150 MG CAPCR PO (08:31)
[2025-01-18] MEDS: Empaglifozin 25 MG TAB PO (08:31)
[2025-01-18] MEDS: Spironolactone 25 MG TAB 12.5 MG PO (08:31)
[2025-01-18] MEDS: Losartan 50 MG TAB PO ×2 (08:33→20:12)
[2025-01-18] MEDS: Cholecalciferol (Vitamin D3) 1,000 UNIT TAB 1000 UNITS PO (08:33)
[2025-01-18] MEDS: Tamsulosin 0.4 MG CAPCR PO (08:33)
[2025-01-18] MEDS: Furosemide 20 MG TAB 40 MG PO (08:33)
[2025-01-18] MEDS: Rifaximin 550 MG TAB PO ×2 (08:33→20:13)
[2025-01-18] MEDS: Ferrous Sulfate 325 MG TAB PO (08:34)
[2025-01-18] MEDS: Insulin Glargine 300 UNITS/3 ML PEN 10 UNITS SC (08:52)
--- NOTE | 2025-01-18 09:02 | W.PM.PROGNOT ---
Date of Service Date of service: 01/18/25 Time of Service: 09:02 Assessment and Plan Assessment and plan (1) Small bowel obstruction: Status: Resolved Assessment and plan: no SBO on imaging today (2) Chronic heart failure with reduced ejection fraction (HFrEF, <= 40%): Status: Chronic Assessment and plan: LVEF 25% 01/2024. He has SOB at rest at times, worse with activity and edema. He can only walk short distances. (3) Cirrhosis of liver without ascites: Status: Chronic Assessment and plan: He reports that he has a liver lesion that may be cancer, no Bx Abd US - There is a subcapsular finding in the right hepatic lobe which measures 1.6 x 1.2 cm and corresponds to the finding on the recent CT scan. This does not have the typical hyperechoic ultrasound appearance of a benign hemangioma. Splenomegaly noted, Gallbladder poylps wtihout evidence of acute cholecystitis. (4) Diabetes: Status: Chronic Assessment and plan: Continue lantus/empagliflozin continue to hold metformin and control with sliding scale instead (5) PAF (paroxysmal atrial fibrillation): Status: Chronic Assessment and plan: On eliquis (6) Symptomatic bradycardia: Status: Acute Assessment and plan: Will hold BB and see how he responds. Pt might be at a point where he can't tolerate BB although he does have significant CHF with ef appx 25% Subjective Subjective Patient reports: no new complaints Exam Narrative Exam Narrative: PHYSICAL EXAM General Appearance: Asleep again on visit (very tired) , arouses to verbal stimuli Vital signs: Bradycardia 50-60 bpm. Normotensive. HEENT: Pupils equal, round, and reactive. Extraocular movements and cranial nerves intact. Respiratory: Lungs clear. Cardiovascular: Bradycardia 50-60 BPM; normal sinus rhythm Gastrointestinal: No ostomy bag leakage, abd soft non tender. Extremities: Full strength and normal sensation in upper and lower extremities. Skin: Warm and dry, no rash. Neurological: Patient is forgetfulness and poor historian. Full strength all extremities. Cranial nerves intact. Objective Last Vital Signs Temp 36.9 C 01/18/25 07:40 Pulse 60 01/18/25 07:40 Resp 18 01/18/25 07:40 BP 124/70 01/18/25 07:40 Pulse Ox 95 01/18/25 07:40 Laboratory Results - last 24 hr 01/17/25 01/17/25 01/17/25 11:45 12:02 13:18 WBC 3.73 L RBC 4.17 L Hgb 11.7 L Hct 37.0 L MCV 89 MCH 28.1 MCHC 31.6 L RDW 17.6 H Plt Count 72 L MPV 10.5 Immature Gran % 0.5 Neutrophils % 78.6 Lymphocytes % 10.5 Monocytes % 8.0 Eosinophils % 1.6 Basophils % 0.8 Nucleated RBC % 0.0 Absolute Neutrophils 2.93 Absolute Lymphocytes 0.39 L Absolute Monocytes 0.30 Absolute Eosinophils 0.06 Absolute Basophils 0.03 RBC Morphology Normal Sodium 144 Potassium 3.7 Chloride 108 H Carbon Dioxide 22.5 Anion Gap 13.5 H BUN 22 H Creatinine 1.6 H Est GFR (CKD-EPI 2020) 44.10 Glucose 280 H Calcium 9.7 Total Bilirubin 2.6 H AST 33 ALT 20 Alkaline Phosphatase 134 H Troponin I 27 26 Total Protein 6.4 Albumin 2.8 L TSH 4.17 H Free T4 1.7 Urine Color Yellow Urine Clarity Cloudy Urine pH 5.5 Ur Specific [place] 1.010 Urine Protein Negative Urine Ketones Negative Urine Blood Negative Urine Nitrite Negative Urine Bilirubin Negative Urine Urobilinogen 0.2 Ur Leukocyte Esterase Negative Urine Glucose 500 H COVID-19 Source Nasopharynx SARS-CoV-2 (PCR) Negative Influenza Type A (PCR) Negative Influenza Type B (PCR) Negative RSV (PCR) Negative 01/18/25 06:52 WBC 3.33 L RBC 3.68 L Hgb 10.3 L Hct 32.1 L MCV 87 MCH 28.0 MCHC 32.1 RDW 17.3 H Plt Count 65 L MPV 10.4 Immature Gran % 0.3 Neutrophils % 67.9 Lymphocytes % 15.3 Monocytes % 9.0 Eosinophils % 6.9 Basophils % 0.6 Nucleated RBC % 0.0 Absolute Neutrophils 2.26 Absolute Lymphocytes 0.51 L Absolute Monocytes 0.30 Absolute Eosinophils 0.23 Absolute Basophils 0.02 RBC Morphology Sodium 146 H Potassium 3.3 L Chloride 112 H Carbon Dioxide 25.7 Anion Gap 8.3 BUN 24 H Creatinine 1.2 Est GFR (CKD-EPI 2020) 62.29 Glucose 128 H Calcium 9.1 Total Bilirubin 2.6 H AST 45 H ALT 30 Alkaline Phosphatase 117 H Troponin I Total Protein 5.4 L Albumin 2.3 L TSH Free T4 Urine Color Urine Clarity Urine pH Ur Specific [place] Urine Protein Urine Ketones Urine Blood Urine Nitrite Urine Bilirubin Urine Urobilinogen Ur Leukocyte Esterase Urine Glucose COVID-19 Source SARS-CoV-2 (PCR) Influenza Type A (PCR) Influenza Type B (PCR) RSV (PCR) Time Spent with Patient Time Spent with Patient: 25-34 minutes Time was spent: preparing to see the patient(eg.review tests), ordering medications,tests, procedures, referring, communicating with other health lawn care professional, indepentently interpreting results, counseling the patient and care coordination
[2025-01-18 09:19] LABS: Lab Add On Test DONE
--- NOTE | 2025-01-18 09:19 | PDOC.CMIN ---
Date of service: 01/18/25 Time of Service: 09:20 Care Management Initial Assmt Initial Assessment Reason for Hospitalization: SBO Functional Status/Living Situation Patient Presentation: Merrill was sitting up in a chair when CM met with him. He had been dozing but responded to a gentle touch and voice. Merrill easily engaged with CM, well known to him from many previous hospitalizations for both him and his Cely. When asked what brought him to the hospital, Merrill responded I was feeling sickly. He stated he got dizzy and began seeing colors, specifically, yellow on the patterson. His called 911. Merrill has had visual disturbances in the past, often presenting as lines on the wall that he knows are not there. During the conversation Merrill alluded to having memory issues. He commented: I don't know what is happening to me. He noted that he used to be able to park his car and remember where it is but no longer can do that. Of course, he is also not driving anymore. He was unable to recall a couple of words and seemed mildly distressed about that. CM reminded Merrill that he has many medical issues that can affect his memory and concentration. He has chronic liver disease and becomes encephalopathic, when his ammonia gets too high. He also has CHF, diabetes and frequent UTIs. Merrill lives in a single family home in [place] with his Cely and son Scott. 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 He is mostly independent with ADLs and his assists him as needed. Their adult son Scott works from home in the computer electronics field. Scott does all of the driving and much of the shopping for the family. Merrill stated that he really helps out a lot. Merrill is [facility] connected and receives most of his healthcare through the [facility]. His PCP is at [facility] and he has a nurse, Evelyn, who visits once a month. He also has homemaker services twice a week for a few hours to help with dishes, laundry, house work etc. He believes the VA pays for that as well but is not 100% sure. He knows it is not private pay. Merrlil also had PT visits weekly through [facility], however services ended last week. Town of Residence: [place] Resides with: Spouse ( Cely and son Scott) Significant Other/Family: Out of area (relatives in [place]) Natural Supports: family [employer] Employment Status: Retired Instrumental Activities of Daily Living (ADLs): Requires support Physical Functioning/Mobility Assistive Device: walker Advance Directives Advance Directives: Do you have an Advance Directive: Y 08/05/24 02:24 AD On File at [facility]: N 08/05/24 10:22 Date Asked 01/17/25 01/17/25 11:32 AD Date Reviewed COLST On File at [facility] No 12/04/23 16:58 COLST Date Scanned Code Status Resuscitation Status Full Code Portal Pt does not currently have a portal and education provided: Yes Insurance Coverage/Financial Issues [place]: [place] Care Team Visit Care Team Role Provider Type Sydni Mckeon NP MD [facility] STAFF PHYSICIAN Maryann Whitt Primary Care Provider NURSE PRACTITIONER Vera Ariza Other Providers COTTON FARMER Johana Torres Other Providers COTTON FARMER Cheyenne Elizabeth Other Providers COTTON FARMER Tracy Cox Other Providers OTHER Janeen Lazaro RN Other Providers COTTON FARMER Buffy Blancas Other Providers COTTON FARMER STEFANO Meier Emergency Provider PHYSICIANS VISION MIXER Osmar Blancas MD Admit Provider [facility] STAFF PHYSICIAN Attending Provider Discharge Potential Discharge Needs: PCP F/U Appt Anticipated Barriers to Discharge: None Identified Patient/Family Education Needs: Review discharge instructions, discuss Ask Me Three Transportation: Private vehicle Plan: Anticipate Merrill will be discharged home when medically cleared, possibly with new home health services. He will follow up with his PCP and plan of care as prescribed and transport with family. CM will follow and continue to assess for discharge needs. Social Determinants of Health Screening Social Determinants of Health last assessed: 01/19/25 Will the Patient Participate in the Screening?: Yes Do you worry about having a steady place to live?: no Problems where you live: no known problems In the past 12 months, have you had to go without electric, gas, oil or water in your home?: no Have you or anyone in your house had to go without enough food to eat?: no Has lack of transportation kept you from medical appointments or from doing things needed for daily living?: no Has anyone in your life made you feel unsafe or unsupported?: no How hard is it for you to pay for the very basics like food, housing, medical care, and heating? Would you say it is:: Very hard Do you want help finding or keeping work or a job?: I do not need or want help If for any reason you need help with day-to-day activities such as bathing, preparing meals, shopping, managing finances, etc., do you get the help you need?: I need a lot more help How often do you feel lonely or isolated from those around you?: Sometimes Do you speak a language other than Azeri at home?: No Does the patient want assistance with any of the above?: Yes Health Related Social Needs Health related social needs: problems related to housing/economic circumstances (Z59.89), problems with daily activities (Z73.9) and feeling lonely/isolated (Z60.8) [facility] All Active Problems (Updated 01/17/25 @ 19:36 by Osmar Blancas MD) Symptomatic bradycardia (Acute) Syncope (Chronic) Hypovolemia (Acute) RODOLFO (acute kidney injury) (Acute) Symptomatic bradycardia (Acute) Acute hypokalemia (Acute) Family conflict (Acute) Chest pain in adult (Acute) Fall (Acute) Chronic heart failure with reduced ejection fraction (HFrEF, <= 40%) (Chronic) Anemia (Chronic) Thrombocytopenia (Chronic) Colostomy care (Acute) Chronic low back pain (Chronic) Hematuria (Acute) Cirrhosis of liver without ascites (Chronic) Elevated troponin level not due myocardial infarction (Acute) Diabetes (Chronic) Leukopenia (Acute) Oral candidiasis (Acute) Sepsis syndrome (Acute) PAF (paroxysmal atrial fibrillation) (Chronic) Gram-negative bacteremia (Acute) Cellulitis (Acute) Lower urinary obstructive symptom (Acute) Anemia of chronic disease (Acute) Thrombocytopenia (Chronic) Ventricular ectopy (Acute) Sinus bradycardia (Acute) Leukocytosis (Acute) Hypertension (Chronic) Elevated lactic acid level (Acute) CHF (congestive heart failure) (Chronic) No-show for appointment (Acute) Left rotator cuff tear (Acute) Acute UTI (urinary tract infection) (Acute) Weakness (Acute) Non-ST elevation [place] (NSTEMI) (Acute) Pre-syncope (Acute) Frequent falls (Acute) Orthostatic hypotension (Acute) Chronic atrial fibrillation (Chronic) Type 2 diabetes mellitus (Chronic) Hypokalemia (Acute) Bradycardia (Acute) Multiple falls (Acute) Acute metabolic encephalopathy (Acute) Medication monitoring encounter (Acute) ANETTE (obstructive sleep apnea) (Chronic) Chest pain (Acute) CHF exacerbation (Acute) CHF (congestive heart failure) (Chronic) EF 25%- 2023 Medical History Goals of care, counseling/discussion Lactic acidosis UTI (urinary tract infection) Urinary tract infection Advanced care planning/counseling discussion Palliative care encounter Follow[facility] by [facility] Bowel obstruction Sepsis Heart failure with reduced ejection fraction Hypothyroidism Small bowel obstruction Lactic acid acidosis Creatinine elevation Acute UTI Anticoagulated COVID Recurrent intestinal obstruction History of colon cancer Chronic anticoagulation Portal hypertension Cirrhosis TIPs placed (?when, [facility]? 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, Dx [facility] as per pt Non-insulin dependent type 2 diabetes mellitus Incontinence Hypertension Scleral icterus Surgical History S/P TIPS (transjugular intrahepatic portosystemic shunt) H/O left hemicolectomy Colostomy in place Social History Smoking/Tobacco Use Status: Former Tobacco Use Smoking risk assessment performed?: Yes Alcohol Intake: former Drug use: Never Substance use type: does not use Housing: house Do you feel safe at home: Yes Do you feel safe in your relationship?: Yes Additional Social history: Lives with , son, and sick [id number] in [place], moved up from [place] in 2019. [place] .
[2025-01-18 09:27] LABS: Magnesium 1.9 mg/dL
--- NOTE | 2025-01-18 10:09 | PT.INNT ---
PT Notes Visit Reasons: Symptomatic bradycardia At ultrasound testing. Will plan PT eval when patient returns to room.
[2025-01-18] MEDS: Potassium Chloride 20 MEQ TABCR PO (10:42)
--- NOTE | 2025-01-18 11:01 | NUR.NOTE ---
Nursing Note: Pt's called for update, given, on HIPPA.
--- NOTE | 2025-01-18 11:30 | PT.INIE ---
PT Notes Visit Reasons: Symptomatic bradycardia Physical Therapy Inpatient Initial Evaluation Date: 01/18/2025 Referring Doctor: Osmar Blancas MD PT Orders: PT CONSULT: Eval/Treat Precautions: Fall. Standard. Activity as tolerated. Colostomy bag in place. Patient Profile/Admitting Diagnosis:? Osmar is a 79-year-old male patient with past medical history significant for colon cancer with colostomy in place who presented to the ED on 01/17/2025 due to generalized weaknss, dizziness and presyncope. He is admitted for management of small bowel obstruction, chroninc HFrEF with EF of 40%, cirrhosis of liver, PAF, DM and symptomatic bradycardia. PMHX: All Active Problems (Updated 01/17/25 @ 19:36 by Osmar Blancas MD) Symptomatic bradycardia (Acute) Syncope (Chronic) Hypovolemia (Acute) RODOLFO (acute kidney injury) (Acute) Symptomatic bradycardia (Acute) Acute hypokalemia (Acute) Family conflict (Acute) Chest pain in adult (Acute) Fall (Acute) Chronic heart failure with reduced ejection fraction (HFrEF, <= 40%) (Chronic) Anemia (Chronic) Thrombocytopenia (Chronic) Colostomy care (Acute) Chronic low back pain (Chronic) Hematuria (Acute) Cirrhosis of liver without ascites (Chronic) Elevated troponin level not due myocardial infarction (Acute) Diabetes (Chronic) Leukopenia (Acute) Oral candidiasis (Acute) Sepsis syndrome (Acute) PAF (paroxysmal atrial fibrillation) (Chronic) Gram-negative bacteremia (Acute) Cellulitis (Acute) Lower urinary obstructive symptom (Acute) Anemia of chronic disease (Acute) Thrombocytopenia (Chronic) Ventricular ectopy (Acute) Sinus bradycardia (Acute) Leukocytosis (Acute) Hypertension (Chronic) Elevated lactic acid level (Acute) CHF (congestive heart failure) (Chronic) No-show for appointment (Acute) Left rotator cuff tear (Acute) Acute UTI (urinary tract infection) (Acute) Weakness (Acute) Non-ST elevation [place] (NSTEMI) (Acute) Pre-syncope (Acute) Frequent falls (Acute) Orthostatic hypotension (Acute) Chronic atrial fibrillation (Chronic) Type 2 diabetes mellitus (Chronic) Hypokalemia (Acute) Bradycardia (Acute) Multiple falls (Acute) Acute metabolic encephalopathy (Acute) Medication monitoring encounter (Acute) ANETTE (obstructive sleep apnea) (Chronic) Chest pain (Acute) CHF exacerbation (Acute) CHF (congestive heart failure) (Chronic) EF 25%- 2023 Medical History Goals of care, counseling/discussion Lactic acidosis UTI (urinary tract infection) Urinary tract infection Advanced care planning/counseling discussion Palliative care encounter Followed by [facility] McfaddenBowel obstruction Sepsis Heart failure with reduced ejection fraction Hypothyroidism Small bowel obstruction Lactic acid acidosis Creatinine elevation Acute UTI Anticoagulated COVID Recurrent intestinal obstruction History of colon cancer Chronic anticoagulation Portal hypertension Cirrhosis TIPs placed (?when, [facility]? 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, Dx [facility] as per pt Non-insulin dependent type 2 diabetes mellitus Incontinence Hypertension Scleral icterus Surgical History S/P TIPS (transjugular intrahepatic portosystemic shunt) H/O left hemicolectomy Colostomy in place Social History/Home Situation: Osmar lives with and son in a private home with a ramp to enter.? has not been doing well herself and cannot help patient physically. Son does not work and is available 19/05. Ambulatory inside the house using FWW. Has a stair lift leading to the bedroom upstairs. Gets meals on wheels. Equipment Owned/DME: 4WW, FWW, SPC, scooter, stair lift Subjective: Agreeable to mobility evaluation. Denies headache, chest pain, and lightheadedness throughout session. Objective: General Observation: Supine in bed. Colostomy bag in place. Mental Status: Alert and oriented as to person, place, time, and purpose. Able to pay attention, focus, and respond appropriately. Pain: None reported Vital Signs: Closely monitored by nursing staff ROM: Right Upper Extremity: ? Shoulder Flexion WFL. Shoulder abduction WFL. Elbow flexion WFL. Wrist flexion WFL. Functional opening and closing of hand WFL. Left Upper Extremity:? Shoulder Flexion allows up to 90 degrees only. Shoulder abduction allows up to 80 degrees only. Elbow flexion WFL. Wrist flexion WFL. Functional opening and closing of hand WFL. Right Lower Extremity: Hip flexion lacks the last 25% discomfort. Hip abduction WFL. Knee flexion 20 degrees to 90 degrees. Knee extension -20 degrees. Ankle dorsiflexion to neutral only. Ankle plantarflexion WFL. Left Lower Extremity: Hip flexion WFL. Hip abduction WFL. Knee flexion WFL. Ankle dorsiflexion to neutral only. Ankle plantarflexion WFL. Strength: Right Upper Extremity: Shoulder flexors 4-/5. Shoulder abductors 4-/5. Elbow flexors 4-/5. Elbow extensors 4-/5. Drier Operator Head strong. Left Upper Extremity: Shoulder flexors 3-/5. Shoulder abductors 3-/5. Elbow flexors 4-/5. Elbow extensors 4-/5. Drier Operator Head strong. Right Lower Extremity: Hip flexors 4-/5. Hip abductors 4-/5. Knee flexors 5-/5. Knee extensors 4-/5. Ankle dorsiflexors 3-/5. Ankle plantarflexors 4-/5. Left Lower Extremity: Hip flexors 4-/5. Hip abductors 4-/5. Knee flexors 5-/5. Knee extensors 4-/5. Ankle dorsiflexors 3-/5. Ankle plantarflexors 4-/5. Bed Mobility/Transfers: Moderate cueing provided for use of B hands as needed for support, movement sequence, Ad management, and and posture to reduce fall risk and minimize pain report. Supine to sit stand by assist Sit to stand stand by assist with FWW Stand to sit stand by assist with FWW Bed to reclining chair stand by assist with FWW Gait: Instructed patient with level surface ambulation of 300 feet requiring stand by assist using front-wheeled walker, wheelchair follow provided for safety. Moderate verbal cueing provided for walker management, directional change, and overall safety. Denied SOB, headache, abdominal pain, and chest pain throughout. Balance: Static Sitting: Normal Dynamic Sitting: Normal Static Standing: Fair Dynamic Standing: Fair Special Tests: Mobility Limitations Standardized Measure [facility] 6 clicks Basic Mobility Inpatient Short Form: Raw Score: 23 ? CMS Score: 11% deficit? ? ? 4-Stage Balance test: Feet together 10 seconds Semi-tandem <10 seconds Full tandem <10 seonds One-legged stance <10 seconds Informed Consent/Education:? Patient was instructed in purpose of PT consult and plan of care. Agreeable to proceed with established PT POC to achieve personal goals. ASSESSMENT: Denied headache, chest pain and abdominal pain throughout session. Was NPO for the abdominal ultrasound but was placed back on regular diet with clearance from [facility]. Overall felt confident about navigating [facility] hallway with little to no fatigue however remains at risk for falls and requires use of FWW for all mobility ADL performance. Patient presents with clinical signs and symptoms consistent with current/admitting diagnoses that have resulted to mobility limitations, gait instability, generalized weakness, and overall ADL decline as demonstrated by the following impairment level findings: 1.? Impaired standing balance 2.? Impaired activity tolerance Impairments are contributing to the following functional limitations: 1.? Difficulty with ambulation without assistive device 2.? Increased completion time for mobility ADL performance 3.? Increased risk for falls Patient is assessed as a 32776 moderate complexity based on the following: History: 79-year-old male with past medical history as indicated above Examination: Demonstrable impairment in strength, balance, and mobility level with underlying impairments and functional limitations as exhibited above Presentation: Evolving Decision Makin moderate complexity Goals: Goals X1 week 1. Supine-Sit independent 2. Sit-Supine independent 3. Sit-Stand independent 4. Stand-Sit independent 5. Bed-Chair independent 6. Chair-Bed independent 7. Independent gait on level surface with use of FWW for at least 300 feet without report of pain nor dyspnea 8. Good static and dynamic standing balance/tolerance Plan of Care/Treatment Plan: Patient will highly benefit from skilled physical therapy services including functional mobility training, bed mobility/transfer training, gait and balance training, therapeutic exercises, therapeutic activity, caregiver/staff/family education and training 1x/day, 7 days/week x 1 week. Plan of care has been reviewed with the RETAIL VISUAL MERCHANDISER providing the service under Physical Therapy direction. Initiate Physical Therapy intervention for strengthening, bed mobility, transfers, gait, stairs, balance training, use of assistive device. DISCHARGE RECOMMENDATIONS: [] ? Home with no services [] [X] ? Home with services. RESUME home health PT services in order to progress mobility level using FWW, assess home safety, identify additional equipment needs, and establish a functional maintenance program that will increase ability of patient to remain at home. [] ? Home with outpatient PT [] [] ? SNF for continued rehabilitation [] [] ? [facility] [] [] ? SNF versus LTC based on ability to participate and progress [] TREATMENT CODE/TIME: 82313 x 20 minutes for 1 unit, 00225 x 15 minutes for 1 unit (11:30-12:05). Thank you for the opportunity to participate in the care of this patient. Nita Denis PT, DPT, CLT [facility] [place], [place]
[2025-01-18 11:35] VITALS: BP 146/64; PULSE 59; RESP 18; TEMP 36.7; O2SAT 94
[2025-01-18] MEDS: Insulin Aspart 300 UNITS/3 ML PEN SC ×2 (12:00→17:03)
--- NOTE | 2025-01-18 14:33 | TELEP.MEDR_ITS ---
Date of service: 01/18/25 Time of Service: 14:34 Telepharmacy Home Med Rec Allergies Allergies: Penicillins Allergy (Mild, Verified 01/17/25 11:28) Itching morphine Adverse Reaction (Severe, Verified 01/17/25 11:28) vomiting Interview Person Interviewed: * Patient Quality Quality of Interview/Accuracy of Medication List: Fair Sources Sources used to compile medication list: [employer] Medication List Changes made to Home Medication List: ADDITIONS: * None DELETIONS: * Voltaren gel * Colace * Lantus * Lactulose * Metoprolol * Simethicone * Spironolactone * Potassium CHANGES: * None Additional Notes Additional Notes: * Updated medication list with information from patient. Patient able to recognize names of his medications but not doses. Updated list with his information. Recommended Changes Recommended Changes(reason for recommendation): * None Attestation: The home medication list is now updated to the best of my knowledge and is ready to be reconciled by the provider. Please contact the [facility] Pharmacist at for any questions.
--- NOTE | 2025-01-18 14:33 | TELEP.MEDREC ---
Date of service: 01/18/25 Time of Service: 14:34 Telepharmacy Home Med Rec Allergies Allergies: Penicillins Allergy (Mild, Verified 01/17/25 11:28) Itching morphine Adverse Reaction (Severe, Verified 01/17/25 11:28) vomiting Interview Person Interviewed: Patient Quality Quality of Interview/Accuracy of Medication List: Fair Sources Sources used to compile medication list: [employer] Medication List Changes made to Home Medication List: ADDITIONS: None DELETIONS: Voltaren gel Colace Lantus Lactulose Metoprolol Simethicone Spironolactone Potassium CHANGES: None Additional Notes Additional Notes: Updated medication list with information from patient. Patient able to recognize names of his medications but not doses. Updated list with his information. Recommended Changes Recommended Changes(reason for recommendation): None Attestation: The home medication list is now updated to the best of my knowledge and is ready to be reconciled by the provider. Please contact the TelePharmacy Medication Reconciliation Pharmacist at for any questions.
[2025-01-18 14:50] VITALS: BP 155/61; PULSE 59; RESP 20; TEMP 36.7; O2SAT 96
--- NOTE | 2025-01-18 15:00 | RT.EKG_ITS ---
APPROVED REPORT Exam: Resting ECG Reason for Exam: Bradycardia Patient Location: I HR:47 bpm ECG Measurements Heart Rate 47 AXIS MD 293 P 23 QRSd 140 QRS 3 QT 541 T 68 QTc 479 Conclusion Sinus bradycardia...rate< 50 Prolonged MD interval...MD >230, V-rate 30- 49 Left bundle branch block...QRSd>120, broad/notched R
--- NOTE | 2025-01-18 15:02 | PT.INTREAT ---
PT Notes Visit Reasons: Symptomatic bradycardia Inpatient Physical Therapy Treatment Note [facility] Date: 01/18/25 SUBJECTIVE: I'll go for a walk. OBJECTIVE: []? VIT[place] [facility] [place] Activities ([id number]): Direct one-on-one instruction in dynamic activities to improve functional performance. ? BED MOBILITY/TRANSFERS? seated in recliner.? Sit-supine: SBA? Sit-stand:SBA ? Stand-sit: S? GAIT? Assistive Device: FWW ? Weight bearing: FWB Assist:SBA ? Distance:?approx 600'? ASSESSMENT:?tolerated session well. No LOB, SOB or fatigue during ambulation this pm. PLAN: continue to progress functional mobility to tolerance. Add stairs next session. TREATMENT CODE/TIME: 20 min. ([id number]) DISCHARGE RECOMMENDATION: Home with HHPT
[2025-01-18] MEDS: Prazosin 5 MG CAP 10 MG PO (20:12)
[2025-01-18] MEDS: Rosuvastatin 20 MG TAB PO (20:13)
[2025-01-18] MEDS: Acetaminophen 325 MG TAB 975 MG PO (20:13)
[2025-01-18] MEDS: Lidocaine Patch Removal 1 EACH TP (20:30)
[2025-01-18 23:09] VITALS: BP 150/44; PULSE 57; RESP 15; TEMP 36.3; O2SAT 92
[2025-01-19] MEDS: Normal Saline 1,000 ML 100 ML IV (00:04)
[2025-01-19 02:45] VITALS: BP 136/48; PULSE 56; RESP 17; TEMP 36.5; O2SAT 95
[2025-01-19] MEDS: Levothyroxine 100 MCG TAB PO (05:34)
[2025-01-19 07:00] LABS: Abs Immature Grans 0.01 10^3/uL (0.0-0.06); Absolute Basophil Count 0.02 10^3/uL (0.0-0.2); Absolute Eosinophil Count 0.17 10^3/uL (0.0-0.7); Absolute Lymphocyte Count 0.54 10^3/uL (1.2-3.4); Absolute Monocyte Count 0.29 10^3/uL (0.1-0.8); Absolute Neutrophil Count 1.43 10^3/uL (1.2-6.7); Basophils % 0.8 %; Eosinophils % 6.9 %; HCT 32.3 % (40.0-50.0); HGB 10.4 g/dL (13.5-17.5); Immature Grans % 0.4 %; MCH 28.1 pg (27.0-33.0); MCHC 32.2 % (32.0-36.0); MCV 87 fL (80-95); MPV 10.3 fL (8.0-11.0); Monocytes % 11.8 %; Neutrophils % 58.1 %; RDW 17.3 % (11.8-14.1); RDW-SD 54.4 fL; WBC 2.46 10^3/uL (4.4-10.8)
[2025-01-19 07:17] LABS: Diff Comment PLT Morph Reviewed; Platelet Count 60 10^3/uL (130-400); RBC Morphology Normal
[2025-01-19 07:18] LABS: Anion Gap 10.3 mmol/L (3-11); BUN 21 mg/dL (7-18); CO2 23.7 mmol/L (21.0-32.0); CREATININE 1.2 mg/dL (0.70-1.30); Chloride 111 mmol/L (98-107); Estimated GFR 62.29 (mL/min/1.73m2); Glucose 159 mg/dL (74-106); Magnesium 1.9 mg/dL; Potassium 3.5 mmol/L (3.5-5.1); Sodium 145 mmol/L (136-145)
[2025-01-19 07:41] VITALS: BP 143/66; PULSE 60; RESP 17; TEMP 36.8; O2SAT 96
[2025-01-19] MEDS: Lactulose 20 GM/30 ML CUP PO ×2 (08:13→14:00)
[2025-01-19] MEDS: Rifaximin 550 MG TAB PO (08:13)
[2025-01-19] MEDS: Lidocaine 5% Patch 1 PATCH TP (08:13)
[2025-01-19] MEDS: Venlafaxine 150 MG CAPCR PO (08:14)
[2025-01-19] MEDS: Ferrous Sulfate 325 MG TAB PO (08:14)
[2025-01-19] MEDS: Empaglifozin 25 MG TAB PO (08:14)
[2025-01-19] MEDS: Cholecalciferol (Vitamin D3) 1,000 UNIT TAB 1000 UNITS PO (08:14)
[2025-01-19] MEDS: Docusate Sodium 100 MG CAP PO (08:14)
[2025-01-19] MEDS: Tamsulosin 0.4 MG CAPCR PO (08:14)
[2025-01-19] MEDS: Losartan 50 MG TAB PO (08:15)
[2025-01-19] MEDS: Apixaban 5 MG TAB PO (08:15)
[2025-01-19] MEDS: Pregabalin 50 MG CAP PO (08:15)
[2025-01-19] MEDS: Normal Saline Flush 10 ML SYR IVP ×2 (08:16→14:00)
[2025-01-19] MEDS: Furosemide 20 MG TAB 40 MG PO (08:16)
[2025-01-19] MEDS: Insulin Aspart 300 UNITS/3 ML PEN SC ×3 (08:17→17:18)
[2025-01-19] MEDS: Insulin Glargine 300 UNITS/3 ML PEN 10 UNITS SC (08:41)
[2025-01-19 09:00] VITALS: O2SAT 92
--- NOTE | 2025-01-19 10:08 | PT.INTREAT ---
PT Notes Visit Reasons: Symptomatic bradycardia Date: 01/19/2025 PRECAUTIONS: Fall. Standard. Activity as tolerated. SUBJECTIVE: Pt in bed when approached for therapy this morning. agreed to participating with therapy session OBJECTIVE: ? Telemetry, colostomy bag? PAIN: denies VITALS: closely monitored by nursing Therapeutic Activities 36310: Direct one-on-one instruction in dynamic activities to improve functional performance. ?? BED MOBILITY/TRANSFERS? Rolling L/R: independent Supine-sit: ?independent ? Sit-supine: ? independent? Sit-stand: ? independent? Stand-sit: ??independent? Bed-Chair:? independent ? Chair-bed: independent Provided skilled cues and instruction on performance and technique throughout. Gait Training 99312: Direct one-on-one instruction and skilled instruction in: Employing an assistive device Modified weight-bearing status Movement sequencing Turning and movement with proper form Provided verbal cues for equipment management and technique Provided instruction in gait pattern Patient education regarding pacing and breathing techniques to maximize activity tolerance? GAIT? Assistive Device: ?? ?FWW ? Weight bearing: FWB Assist: ? CGA ? Distance:?? ?600'x1, 300'x1? Deviation: ? Stoop forward posture, low step height, short step lenght, too far away from FWW at times requiring cues for alignment and posture.? STAIRS:? Facility stairs 12 stepx1 up/down, step over step gait pattern right 1handrail, left hand held ? Therapeutic Exercises 41971: Direct one-on-one instruction in therapeutic exercises to develop strength, endurance, range of motion and flexibility. Exercises Sit to stand [id number] Seated marching [id number] L/R Seated SAQ [id number] Seated LAQ [id number]? Provided skilled instruction in proper exercise performance Provided skilled manual cues to facilitate proper muscle recruitment and/or form: ASSESSMENT:?Pt tolerated activiy well, had SOB that is resolved by standing rest break, pt colostomy bag leaked after session and had to use the toilet before transferring back to his bed. pt endorsed to nursing for proper colostomy bag management. PLAN: Continue with balance training, global strengthening and general conditioning for improved safety, mobility and activity tolerance until pt is ready for DC. TREATMENT CODE/TIME: [id number], [id number], 95127k0 40mins (9:25-10:05am)
[2025-01-19 10:46] VITALS: BP 146/54; PULSE 69; RESP 18; TEMP 36.5; O2SAT 95
--- NOTE | 2025-01-19 11:19 | NUR.NOTE ---
patient is AxOx3 this AM, seems fairly clear given cirrhosis and elevated LFTs. Ambulatory with SBA and walker, ostomy appliance changed due to leakage, pt is going to request his family bring in home ostomy supplies as the anatomy of his stoma isn't working well with our supplies. Pt voiding adequately and good PO intake. Strict I/Os given severe CHF. Spoke with CERTIFIED TUMOR REGISTRAR Sydni this AM about IVF and level of appropriateness due to poor EF and few episodes of vtach overnight. Pt noted to be in afib vicki this shift. Continuing to hold beta blockers, asymptomatic with bradycardia when ambulating, denies chest pain or pressure or dizziness. Bed alarms on, call [place] in reach. Palliative consulted this AM due to hx of CA and chronic diseases. Nursing Note:
--- NOTE | 2025-01-19 14:48 | NUR.NOTE ---
this RN has reviewed and is in agreement with shift assessment by Sara Connolly LPN. Patient's ostomy redressed this afternoon with home supplies which seem to be working much better for him. Palliative to see patient. Pt slightly more confused this afternoon, has had afternoon dose of lactulose, hopefully this will resolve any increased ammonia levels. Up with 1 SBA and walker in room. Resting in bed at this time, no noted events on tele thus far. Bed alarm on, call [place] in reach. Nursing Note:
[2025-01-19 15:18] VITALS: BP 173/68; PULSE 60; RESP 18; TEMP 36.5; O2SAT 96
--- NOTE | 2025-01-19 15:20 | PT.INNT ---
PT Notes Visit Reasons: Symptomatic bradycardia declined PT this pm. I did enough this am. Not willing to get OOB. Will check back with him in am.
--- NOTE | 2025-01-19 15:45 | DSE_ITS ---
Date of service: 01/19/25 Time of Service: 15:45 DS: Diagnosis Discharge Diagnosis (1) Symptomatic bradycardia: Status: Acute Discharge Plan Disposition Patient Disposition: Home W/Home Health Services Condition: Improving Discharge Details Reason For Visit: Symptomatic bradycardia Admit Date/Time: 01/17/25 18:06 Admit Provider: Osmar Blancas Attending Provider: Osmar Blancas Primary Care Provider: Maryann Whitt Hospital Course Hospital Course: Reason for Admission: The patient, a 79-year-old male with multiple chronic medical conditions, presented to the Emergency Department with complaints of dizziness and presyncope. His heart rate was noted to be significantly bradycardic, as low as the mid 30s. His heart rate improved to the low 60s to high 50s, and his mentation returned to normal. The concern was raised about a possible overdose of beta-blockers, although the exact cause remains unclear. He was admitted for observation due to the concern for bradycardia and associated clinical symptoms. History of Present Illness: The patient experienced dizziness and possible presyncope while ascending stairs, but remained standing without loss of consciousness. He also reported intermittent colostomy pain (3/10) since the morning of admission, exacerbated by movement but with normal stool output. No leg or chest pain, vomiting, or fever was noted. He also reports dry mouth and dehydration but has not had any recent infections or illnesses. The patient has a history of dementia, and his usual heart rate and beta-michael regimen are unclear. He receives care from both this hospital and the [facility]. His history includes a colostomy for 43 years due to colorectal cancer, which was treated curatively. Medical History: * Dementia * Colostomy (due to colorectal cancer) * Leukopenia * Thrombocytopenia (platelet count 72,000) * Mild anemia * Splenomegaly * TIPS (Transjugular Intrahepatic Portosystemic Shunt) * Chronic dehydration * Hypothyroidism (TSH 4.17, free T4 pending) Investigations: * CBC: Leukopenic, mildly anemic, thrombocytopenic (platelet count 72). * CMP: BUN/Creatinine ratio of 22/1.6, GFR 44. Elevated glucose of 280. * TSH: 4.17 * Magnesium: Within normal limits. * Urinalysis: Negative except for glucosuria. * Abdominal/Pelvic CT: Revealed adhesions without signs of obstruction. Splenomegaly and TIPS noted. * Hepatic Ultrasound: Recommended due to hypodensity observed on the liver during imaging. Assessment and Plan: * Bradycardia: Likely related to beta-michael overdose or other medication- related issue. Continue monitoring heart rate and adjust medications as necessary. Will follow up with the primary care physician for possible adjustment of beta-michael dosage. Hold Carvedilol. * Colostomy Pain: Mild, intermittent pain managed conservatively. No signs of obstruction or acute issue. Continue with routine colostomy care and monitor for any changes. * Dehydration: Encourage oral fluid intake. Monitor hydration status. * Leukopenia, Thrombocytopenia, Mild Anemia: No active bleeding noted, no immediate intervention required. * Hypothyroidism: TSH elevated. Follow up with primary care or endocrinology. * Splenomegaly/TIPS: Continue monitoring and follow up with hepatology for further evaluation of the liver. The TIPS stent is present, with demonstrated flow. The liver appears cirrhotic. A subcapsular lesion measuring 1.6 x 1.2 cm is noted in the right hepatic lobe, consistent with findings from the recent CT scan. This lesion does not exhibit the typical hyperechoic ultrasound characteristics of a benign hemangioma. Additionally, a benign-appearing septated cyst in the left hepatic lobe is present, measuring 1.3 x 0.9 cm. * Dementia: Continue with supportive care, as per usual management for dementia. Disposition: The patient had no dizziness, no chest pain and was hemodynamically stable for greater that 24 hours. The patient was discharged with instructions to follow up with his primary care physician, cardiology, and gastroenterology (for colostomy care and liver concerns). He is to monitor his hydration and report any worsening symptoms, including dizziness, chest pain, or significant changes in stool output. Medications on Discharge: Continue home medications HOLD CARVEDILOL until follow up with PCP. Home Meds and New Rx's Prescriptions: Continued pantoprazole 40 mg Tablet,Delayed Release (Dr/Ec) 40 mg PO DAILY PRN pregabalin 50 mg Capsule 50 mg PO BID Eliquis 5 mg Tablet 5 mg PO BID Patient Comments: taking per pt nitroglycerin 0.4 mg Tablet, Sublingual 0.4 mg sublingual Q5 MIN PRN X3 PRNQty: 30 0RF miconazole nitrate 2 % Powder 1 applic TOPICAL BID PRN rifaximin 550 mg Tablet 550 mg PO BID prazosin 5 mg capsule 10 mg PO QPM tamsulosin 0.4 mg Capsule 0.4 mg PO DAILY lidocaine [Lidoderm] 5 % adhesive patch,medicated 1 patch topical DAILY Rx Instructions: leave on most painful area for up to 12 hrs furosemide 20 mg tablet 40 mg PO DAILY rosuvastatin [Crestor] 20 mg Tablet 20 mg PO QPM metformin 500 mg tablet extended release 24hr 2,000 mg PO QPM ferrous sulfate 325 mg (65 mg iron) Tablet 325 mg PO DAILY empagliflozin 25 mg Tablet 25 mg PO DAILY levothyroxine 200 mcg Tablet 100 mcg PO QAM Qty: 0 0RF cholecalciferol (vitamin D3) 25 mcg (1,000 unit) capsule 25 mcg PO DAILY losartan 50 mg tablet 50 mg PO BID venlafaxine 150 mg capsule,extended release 24hr 150 mg PO DAILY acetaminophen [Tylenol] 325 mg Capsule 975 mg PO Q8H MDD 3000 PRN lactulose 20 gram/30 mL Solution 20 g PO TID Qty: 1800 11RF Rx Instructions: to maintain colostomy output of 3-4 bags per day Held carvedilol phosphate 10 mg capsule, ER multiphase 24 hr 10 mg PO QHS Qty: 90 1RF Hold Instructions: Resume on 01/31/25. Hold until you see your PCP and they advise you to restart it. Patient Comments: taking per pt Rx Instructions: must administer with a meal/food Discharge Instructions Instructions: Bradycardia Additional Instructions: * Medications: * Take all prescribed medications as directed. HOLD CARVEDILOL UNTIL TOLD TO RESTART BY YOUR PCP. * If you experience any side effects or symptoms like dizziness, shortness of breath, or lightheadedness, contact your doctor immediately. * Diet and Lifestyle: * Maintain a healthy, balanced diet. Limit caffeine and alcohol consumption as they can affect heart rate. * Stay hydrated and avoid sudden changes in position to prevent dizziness or lightheadedness. * If you're overweight, aim to lose weight through a healthy diet and regular exercise, as advised by your healthcare provider. * Physical Activity: * Gradually return to physical activities as recommended by your PCP. * Pay attention to any symptoms like dizziness, chest pain, or shortness of breath during activity. If they occur, stop immediately and contact your provider or go to the emergency department.. * Monitor Symptoms: Watch for any new or worsening symptoms such as: * Lightheadedness or fainting * Severe fatigue or weakness * Chest pain * Shortness of breath * Palpitations or irregular heartbeats * If you experience any of these symptoms, seek medical help right away. * Follow-up Appointments: * Follow-up appointment with your PCP as instructed. It is important to monitor your heart rate and ensure your treatment plan is working. * Rest and Sleep: * Get plenty of rest and sleep. * If you have trouble sleeping, speak to your provider about safe options for improving your sleep. * Emergency Situations: Seek immediate medical attention if you experience: * Fainting or near-fainting episodes * Severe dizziness or lightheadedness * Chest pain or pressure * Shortness of breath * Irregular or very slow heart rate * Sudden confusion or weakness Home Health will call you to arrange a time to meet with you at your home. Stand Alone Forms: Nursing Discharge Form Referrals: Maryann Whitt [Primary Care Provider] - (PCP office will give you a call to make a follow up appointment for within 1 to 2 weeks.) Activity:: Activity as Tolerated Equipment/Supplies:: Walker Diet:: As Tolerated Discharge Orders Discharge Orders: Discharge Order (Routine); Ordered 01/19/25 Ordered By: Sydni Mckeon Discharge Data Discharge Date/Time-TO BE ENTERED AT DEPARTURE: 01/19/25 17:59 DS: Summary Time Spent with Patient providing and/or coordinating discharge services: Greater than 30 minutes Status at Discharge Functional status at discharge: uses cane/walker Overall status at discharge: patient is back to baseline Mental Status: mental status grossly normal Speech and Movement: speech and movement normal Mood: congruent mood Affect: normal affect Quality:SDOH Health Related Social Needs: Health related social needs problems related to housin g/economic circumstances (Z59.89), problems with daily activities (Z73.9), feeling lonely/isolated (Z60.8) Health related social needs details Unable to get in a nd out of home, ambulate or perform ADLs. Exam Narrative Exam Narrative: PHYSICAL EXAM General Appearance: Asleep again on visit (very tired) , arouses to verbal stimuli Vital signs: Bradycardia 50-60 bpm. Normotensive. HEENT: Pupils equal, round, and reactive. Extraocular movements and cranial nerves intact. Respiratory: Lungs clear. Cardiovascular: Bradycardia 50-60 BPM; normal sinus rhythm Gastrointestinal: No ostomy bag leakage, abd soft non tender. Extremities: Full strength and normal sensation in upper and lower extremities. Skin: Warm and dry, no rash. Neurological: Patient is forgetfulness and poor historian. Full strength all extremities. Cranial nerves intact. Psych Mental Status: mental status grossly normal Speech and Movement: speech and movement normal Mood: congruent mood Affect: normal affect DS: Data Vitals/I&O Vitals and I&O: Vital Signs Temperature 36.5 C 01/19/25 15:18 Temperature Source Temporal Artery Scan 01/19/25 15:18 Pulse 60 01/19/25 15:18 Pulse Rhythm Irregular 01/17/25 20:58 Pulse 43 L 01/17/25 20:10 Respiratory Rate 18 01/19/25 15:18 Respiratory Effort Normal, Non-Labored 01/17/25 20:58 Respiratory Depth Normal 01/17/25 20:58 Respiratory Pattern Normal 01/17/25 20:58 Blood Pressure 173/68 H 01/19/25 15:18 Blood Pressure Mean 68 01/17/25 20:01 Blood Pressure Position Supine 01/17/25 11:21 Pulse Oximetry 96 01/19/25 15:18 Oxygen Delivery Method Room Air 01/19/25 15:18 Oxygen Flow Rate 0 01/19/25 15:18 Pain Level 0 01/19/25 02:45 Comment NRS notified 01/19/25 15:18 Intake & Output 01/18/25 01/19/25 01/19/25 23:59 11:59 23:59 Intake Total 300 / 650 1326.667 / 1686.667 360 / 1686.667 Output Total 1000 / 1775 2200 / 3850 1650 / 3850 Balance -700 / -1125 -873.333 / -2163.333 -1290 / -2163.333 Weight 102.6 kg Intake: IV 966.667 / 966.667 Oral 300 / 650 360 / 720 360 / 720 Output: Urine 800 / 1275 1300 / 2750 1450 / 2750 Stool 200 / 500 900 / 1100 200 / 1100 Other: Urine Color Yellow Pale Yellow Yellow Urine Appearance Clear Clear Clear Urine Odor Normal Normal None Comment pT missed - small amount on floor Stool Size Small Stool Characteristics Liquid Data Completed and Pending Labs on day of discharge: Labs from last 24 hours 01/19/25 06:44 WBC 2.46 L RBC 3.70 L Hgb 10.4 L Hct 32.3 L MCV 87 MCH 28.1 MCHC 32.2 RDW 17.3 H Plt Count 60 L MPV 10.3 Immature Gran % 0.4 Neutrophils % 58.1 Lymphocytes % 22.0 Monocytes % 11.8 Eosinophils % 6.9 Basophils % 0.8 Nucleated RBC % 0.0 Absolute Neutrophils 1.43 Absolute Lymphocytes 0.54 L Absolute Monocytes 0.29 Absolute Eosinophils 0.17 Absolute Basophils 0.02 RBC Morphology Normal Sodium 145 Potassium 3.5 Chloride 111 H Carbon Dioxide 23.7 Anion Gap 10.3 BUN 21 H Creatinine 1.2 Est GFR (CKD-EPI 2020) 62.29 Glucose 159 H Calcium 9.0 Magnesium 1.9 PFSH All Active Problems (Updated 01/20/25 @ 00:03 by JOSE LUIS REICH) Symptomatic bradycardia (Acute) Acute hypokalemia (Acute) Family conflict (Acute) Chest pain in adult (Acute) Fall (Acute) Thrombocytopenia (Chronic) Colostomy care (Acute) Chronic low back pain (Chronic) Hematuria (Acute) Elevated troponin level not due myocardial infarction (Acute) Leukopenia (Acute) Oral candidiasis (Acute) Sepsis syndrome (Acute) Gram-negative bacteremia (Acute) Cellulitis (Acute) Lower urinary obstructive symptom (Acute) Anemia of chronic disease (Acute) Thrombocytopenia (Chronic) Ventricular ectopy (Acute) Sinus bradycardia (Acute) Leukocytosis (Acute) Hypertension (Chronic) Elevated lactic acid level (Acute) CHF (congestive heart failure) (Chronic) No-show for appointment (Acute) Left rotator cuff tear (Acute) Acute UTI (urinary tract infection) (Acute) Weakness (Acute) Non-ST elevation ID (NSTEMI) (Acute) Pre-syncope (Acute) Frequent falls (Acute) Orthostatic hypotension (Acute) Chronic atrial fibrillation (Chronic) Type 2 diabetes mellitus (Chronic) Hypokalemia (Acute) Bradycardia (Acute) Multiple falls (Acute) Acute metabolic encephalopathy (Acute) Medication monitoring encounter (Acute) ANETTE (obstructive sleep apnea) (Chronic) Chest pain (Acute) CHF exacerbation (Acute) CHF (congestive heart failure) (Chronic) EF 25%- 2023 Medical History Goals of care, counseling/discussion Lactic acidosis UTI (urinary tract infection) Urinary tract infection Advanced care planning/counseling discussion Palliative care encounter [facility] by [facility] Bowel obstruction Sepsis Heart failure with reduced ejection fraction Hypothyroidism Small bowel obstruction Lactic acid acidosis Creatinine elevation Acute UTI Anticoagulated COVID Recurrent intestinal obstruction History of colon cancer Chronic anticoagulation Portal hypertension Cirrhosis TIPs placed (?when, 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, Dx [facility] as per pt Non-insulin dependent type 2 diabetes mellitus Incontinence Hypertension Scleral icterus Surgical History S/P TIPS (transjugular intrahepatic portosystemic shunt) H/O left hemicolectomy Colostomy in place Social History Smoking/Tobacco Use Status: Former Tobacco Use Smoking risk assessment performed?: Yes Alcohol Intake: former Drug use: Never Substance use type: does not use Housing: house Do you feel safe at home: Yes Do you feel safe in your relationship?: Yes Additional Social history: Lives with , son, and sick [id number] in [place], moved up from [place] in 2019. [place] . Time Spent with Patient Time Spent with Patient: 45-69 minutes Time was spent: preparing to see the patient(eg.review tests), ordering medications,tests, procedures, referring, communicating with other health care transition mgr, indepentently interpreting results, counseling the patient and care coordination
--- NOTE | 2025-01-19 16:59 | PDOC.HHF2F_ITS ---
Home Health Referral Home Health Orders Clinical synopsis of why skilled professionals are needed: Reason for Admission: The patient, a 79-year-old male with multiple chronic medical conditions, presented to the Emergency Department with complaints of dizziness and presyncope. His heart rate was noted to be significantly bradycardic, as low as the mid 30s. His heart rate improved to the low 60s to high 50s, and his mentation returned to normal. The concern was raised about a possible overdose of beta-blockers, although the exact cause remains unclear. He was admitted for observation due to the concern for bradycardia and associated clinical symptoms. History of Present Illness: The patient experienced dizziness and possible presyncope while ascending stairs, but remained standing without loss of consciousness. He also reported intermittent colostomy pain (3/10) since the morning of admission, exacerbated by movement but with normal stool output. No leg or chest pain, vomiting, or fever was noted. He also reports dry mouth and dehydration but has not had any recent infections or illnesses. The patient has a history of dementia, and his usual heart rate and beta-michael regimen are unclear. He receives care from both this hospital and the MD. His history includes a colostomy for 43 years due to colorectal cancer, which was treated curatively. Medical History: * Dementia * Colostomy (due to colorectal cancer) * Leukopenia * Thrombocytopenia (platelet count 72,000) * Mild anemia * Splenomegaly * TIPS (Transjugular Intrahepatic Portosystemic Shunt) * Chronic dehydration * Hypothyroidism (TSH 4.17, free T4 pending) Investigations: * CBC: Leukopenic, mildly anemic, thrombocytopenic (platelet count 72). * CMP: BUN/Creatinine ratio of 22/1.6, GFR 44. Elevated glucose of 280. * TSH: 4.17 * Magnesium: Within normal limits. * Urinalysis: Negative except for glucosuria. * Abdominal/Pelvic CT: Revealed adhesions without signs of obstruction. Splenomegaly and TIPS noted. * Hepatic Ultrasound: Recommended due to hypodensity observed on the liver during imaging. Assessment and Plan: * Bradycardia: Likely related to beta-michael overdose or other medication- related issue. Continue monitoring heart rate and adjust medications as necessary. Will follow up with the primary care physician for possible adjustment of beta-michael dosage. Hold Carvedilol. * Colostomy Pain: Mild, intermittent pain managed conservatively. No signs of obstruction or acute issue. Continue with routine colostomy care and monitor for any changes. * Dehydration: Encourage oral fluid intake. Monitor hydration status. * Leukopenia, Thrombocytopenia, Mild Anemia: No active bleeding noted, no immediate intervention required. * Hypothyroidism: TSH elevated. Follow up with primary care or endocrinology. * Splenomegaly/TIPS: Continue monitoring and follow up with hepatology for further evaluation of the liver. The TIPS stent is present, with demonstrated flow. The liver appears cirrhotic. A subcapsular lesion measuring 1.6 x 1.2 cm is noted in the right hepatic lobe, consistent with findings from the recent CT scan. This lesion does not exhibit the typical hyperechoic ultrasound characteristics of a benign hemangioma. Additionally, a benign-appearing septated cyst in the left hepatic lobe is present, measuring 1.3 x 0.9 cm. * Dementia: Continue with supportive care, as per usual management for dementia. Disposition: The patient had no dizziness, no chest pain and was hemodynamically stable for greater that 24 hours. The patient was discharged with instructions to follow up with his primary care physician, cardiology, and gastroenterology (for colostomy care and liver concerns). He is to monitor his hydration and report any worsening symptoms, including dizziness, chest pain, or significant changes in stool output. Medications on Discharge: Continue home medications HOLD CARVEDILOL until follow up with PCP. Medical diagnosis necessitation home health referral: Bradycardia Registered Nurse: Check all that apply Instruct on new or changed medication(s)/assess compliance: Ordered Instruct on ostomy care: Ordered (monitor for decreased or no output ) Assess for exacerbation of medical condition, instruct patient/caregivers on signs and symptoms to report for early detection: Ordered Other: Lantus injection teaching. Patient has to take his laxatives daily, lactulose as ordered, CHF exacerbation , weight gain and additional Furosemide PRN Physical Therapist: Check all that apply Increase strength & endurance for safe mobility at home: Ordered To design/establish home maintenance program: Ordered Fall reduction therapy program for patient with history of frequent falls: Ordered Home safety evaluation and teaching/gait training including stair management (if applicable): Ordered Form Setter/Driver: Assist with community resources: Ordered Assist with terminal gauger care planning: Ordered Home Bound Status Requires the aid of supportive device (check all that apply): Walker Patient has a condition such that leaving home is medically contraindicated (Describe): Ambulatory dysfunciton; cardiac EF 25% on 01/2024 Encounter Date and Reason: I certify that a FTF encounter for this patient was performed on January 19, 2025 and that such encounter was related to the primary reason the patient requires home health services. The encounter was conducted in the following manner: * By me as the certifying physician, AIR TRAFFIC COORDINATOR, PA or * By an inpatient physician, AIR TRAFFIC COORDINATOR or PA during an inpatient stay who communicated findings to me, Certification And Authentication I certify that I composed the above information based on my clinical judgment relating to this patient's medical condition and, if applicable, clinical findings communicated to me by the NPP or inpatient physician who performed the FTF encounter. Name of Provider that will be monitoring home health services: Maryann Whitt
--- NOTE | 2025-01-19 17:52 | CMDISCH_ITS ---
Date of service: 01/19/25 Time of Service: 17:52 LACE Index Scoring Tool Questions: Length of Stay (in days): 2 Was the patient admitted via the E.D.?: Yes Comorbidities: Previous M.I., Diabetes w/o Complication, Congestive Heart Failure, Any Tumor and Liver or Renal Disease E.D. Visits: 6 Answers: Total Score: 14 Risk of Readmission: High Risk Care Management Discharge Plan Reason for Hospitalization: dizziness Discharge Plan: Higinio will be discharged home with new home health orders for PT Patient/Family Education Needs: Merrill will be discharged home with new home health orders for PT. He will follow up with his PCP and plan of care as prescribed and transport with family. . Services Needed at Discharge: Home Health Care Services SDOH Health Related Social Needs: Health related social needs problems related to housin g/economic circumstances (Z59.89), problems with daily activities (Z73.9), feeling lonely/isolated (Z60.8) Health related social needs details Unable to get in a nd out of home, ambulate or perform ADLs.
== END 2025-01-19 17:59 | disposition home health service (06) ==
LOC: ER 18:25 → MS 20:24
PROVIDERS: Student in an Organized Health Care Education/Training Program; Admitting Provider Hospitalist; Emergency Provider Physician Assistant; PCP Nurse Practitioner Adult Health; Responsible Provider Nurse Practitioner Family; Visit Provider Hospitalist
DX: R00.1 Bradycardia, unspecified (principal); R55 Syncope and collapse; I50.22 Chronic systolic (congestive) heart failure; K74.60 Unspecified cirrhosis of liver; E11.9 Type 2 diabetes mellitus without complications; I48.0 Paroxysmal atrial fibrillation; E87.6 Hypokalemia; F03.90 Unspecified dementia, unspecified severity, without behavioral disturbance, psychotic disturbance, mood disturbance, and anxiety; D72.819 Decreased white blood cell count, unspecified; D64.9 Anemia, unspecified; D69.6 Thrombocytopenia, unspecified; Z43.3 Encounter for attention to colostomy; N17.9 Acute kidney failure, unspecified; G89.29 Other chronic pain; Z79.01 Long term (current) use of anticoagulants; Z79.4 Long term (current) use of insulin; Z85.038 Personal history of other malignant neoplasm of large intestine; E86.0 Dehydration; D73.2 Chronic congestive splenomegaly; E03.9 Hypothyroidism, unspecified
CPT/HCPCS: 00123; 36415; 80048; 80053; 87637; 93005; 96360; 97110; 97116; 97162; 97530; 99285; 74177; 76700; 81003; 83735; 84439; 84443; 84484; 85025; 93010; 99222; 99232; 99239; G0378; J1815; J3490

== ENCOUNTER 2025-02-11 13:19 | Outpatient (REF) | payer SELFPAY ==
[2025-02-11 12:52] LABS: Absolute Basophil Count 0.01 10^3/uL (0.0-0.2); Absolute Eosinophil Count 0.16 10^3/uL (0.0-0.7); Absolute Lymphocyte Count 0.31 10^3/uL (1.2-3.4); Absolute Monocyte Count 0.24 10^3/uL (0.1-0.8); Absolute Neutrophil Count 1.98 10^3/uL (1.2-6.7); Basophils % 0.4 %; Eosinophils % 5.9 %; HCT 33.9 % (40.0-50.0); HGB 10.7 g/dL (13.5-17.5); Lymphocytes % 11.5 %; MCHC 31.6 % (32.0-36.0); MCV 89 fL (80-95); MPV 11.2 fL (8.0-11.0); Monocytes % 8.9 %; Neutrophils % 73.3 %; RBC 3.82 10^6/uL (4.36-5.78); RDW 15.2 % (11.8-14.1); RDW-SD 49.3 fL
[2025-02-11 13:18] LABS: Platelet Count 67 10^3/uL (130-400)
== END 2025-02-11 13:20 | disposition home or self-care (01) ==
LOC: LBN 13:19
PROVIDERS: PCP Nurse Practitioner Adult Health; Visit Provider Nurse Practitioner Gerontology
DX: Z93.3 Colostomy status (principal); K92.1 Melena
CPT/HCPCS: 85025

== ENCOUNTER 2025-02-15 10:35 | Emergency (ER) | payer OTHER, SELFPAY ==
[2025-02-15] VITALS (10 sets, daily range): BP systolic 129–175; BP diastolic 48–79; PULSE 62–88; RESP 11–18; TEMP 37; O2SAT 95–98
--- NOTE | 2025-02-15 10:30 | RT.EKG_ITS ---
APPROVED REPORT Exam: Resting ECG Reason for Exam: frequent PVCs, dizzy Patient Location: E HR:82 bpm ECG Measurements Heart Rate 82 AXIS IA 238 P -63 QRSd 137 QRS -30 QT 422 T 123 QTc 509 Conclusion Sinus rhythm, rate 82 Multifocal PVCs 1st degree HB, IA interval 238ms Prolonged QTc at 509ms LBBB No STEMI Compared to priors, ectopy has increased
--- NOTE | 2025-02-15 10:55 | ED.GENADUL_ITS ---
Discharge Plan Disposition Patient Disposition: Home Condition: Stable Discharge Details Clinical Impression: Acute UTI, Elevated lactic acid level, Abdominal pain, Vomiting Primary Care Provider: Maryann Whitt ED Provider: Terese Jennings Home Meds and New Rx's Prescriptions: New cephalexin 500 mg capsule 500 mg PO QID 6 Days Qty: 24 0RF Rx Instructions: Start 02/16 No Action pantoprazole 40 mg Tablet,Delayed Release (Dr/Ec) 40 mg PO DAILY PRN pregabalin 50 mg Capsule 50 mg PO BID Eliquis 5 mg Tablet 5 mg PO BID Patient Comments: taking per pt nitroglycerin 0.4 mg Tablet, Sublingual 0.4 mg sublingual Q5 MIN PRN X3 PRNQty: 30 0RF miconazole nitrate 2 % Powder 1 applic TOPICAL BID PRN rifaximin 550 mg Tablet 550 mg PO BID prazosin 5 mg capsule 10 mg PO QPM tamsulosin 0.4 mg Capsule 0.4 mg PO DAILY carvedilol phosphate 10 mg capsule, ER multiphase 24 hr 10 mg PO QHS Qty: 90 1RF Patient Comments: taking per pt Rx Instructions: must administer with a meal/food lidocaine [Lidoderm] 5 % adhesive patch,medicated 1 patch topical DAILY Rx Instructions: leave on most painful area for up to 12 hrs furosemide 20 mg tablet 40 mg PO DAILY rosuvastatin [Crestor] 20 mg Tablet 20 mg PO QPM metformin 500 mg tablet extended release 24hr 2,000 mg PO QPM ferrous sulfate 325 mg (65 mg iron) Tablet 325 mg PO DAILY empagliflozin 25 mg Tablet 25 mg PO DAILY levothyroxine 200 mcg Tablet 100 mcg PO QAM Qty: 0 0RF cholecalciferol (vitamin D3) 25 mcg (1,000 unit) capsule 25 mcg PO DAILY losartan 50 mg tablet 50 mg PO BID venlafaxine 150 mg capsule,extended release 24hr 150 mg PO DAILY acetaminophen [Tylenol] 325 mg Capsule 975 mg PO Q8H MDD 3000 PRN lactulose 20 gram/30 mL Solution 20 g PO TID Qty: 1800 11RF Rx Instructions: to maintain colostomy output of 3-4 bags per day Discharge Instructions Instructions: Urinary Tract Infection, Adult ED Additional Instructions: You were seen in the emergency department today for evaluation of abdominal pain and vomiting and had laboratory studies concerning for a urinary tract infection. You also seem slightly dehydrated based on your labs, for which you received IV fluids and your magnesium was repleted. You had a CT scan of your belly that did not show any other abnormalities to explain your symptoms. You had your first dose of antibiotics here, and need to complete the remainder of your antibiotics at home. This will start tomorrow, please take off this medication until it is gone, even if you start to feel better. Please follow-up with your primary care provider in the next few days to discuss this visit and any symptoms that change, worsen, or persist. Thank you for allowing us to be part of your care. HPI General Mode of arrival: EMS . Date/Time Provider Initiated Documentation: 02/15/25 10:43 . Limitations to Documentation: no limitations . Information obtained by: patient, EMS and old records reviewed . HPI Narrative: This is a 80-year-old male patient with a history of type 2 diabetes, colostomy, hernia, bradycardia, ANETTE, HFrEF, and atrial fibrillation on Eliquis who is presenting for 2 to 3 days of right lower quadrant abdominal pain and vomiting. He began experiencing abdominal pain a few days ago, localized to the area of his previous hernia repair. This morning, he experienced an episode of vomiting, described as brown by his care facility but currently does not feel nauseous. However, he reports a sensation of dizziness, which intensifies upon standing or walking. His ostomy bag was replaced 5 minutes prior to his arrival at the emergency room and has a small amount of light brown stool in it. He has been able to consume food and liquids, but with associated discomfort. He has a hist ory of bowel obstruction in the past. He is not experiencing any chest pain and does not have a pacemaker. He was admitted last month for his heart condition. Related Data Home Medications ?Medication ?Instructions ?Recorded ?Confirmed apixaban 5 mg tablet (Eliquis) 5 mg PO BID 11/08/22 01/18/25 pantoprazole 40 mg tablet,delayed 40 mg PO DAILY PRN 11/08/22 01/18/25 release pregabalin 50 mg capsule 50 mg PO BID 11/08/22 01/18/25 nitroglycerin 0.4 mg sublingual 0.4 mg sublingual Q5 MIN PRN X3 02/10/23 01/18/25 tablet PRN #30 tabs ferrous sulfate 325 mg (65 mg 325 mg PO DAILY 03/08/23 01/18/25 iron) tablet empagliflozin 25 mg tablet 25 mg PO DAILY 04/09/23 01/18/25 levothyroxine 200 mcg tablet 100 mcg (1/2 x 200 mcg) PO QAM #0 04/10/23 01/18/25 tabs miconazole nitrate 2 % topical 1 applic topical BID PRN 06/16/23 01/18/25 powder rifaximin 550 mg tablet 550 mg PO BID 07/07/23 01/18/25 cholecalciferol (vitamin D3) 25 25 mcg PO DAILY 03/05/24 01/18/25 mcg (1,000 unit) capsule losartan 50 mg tablet 50 mg PO BID 03/05/24 01/18/25 venlafaxine 150 mg 150 mg PO DAILY 03/05/24 01/18/25 capsule,extended release 24 hr acetaminophen 325 mg capsule 975 mg PO Q8H PRN 05/12/24 01/18/25 (Tylenol) lactulose 20 gram/30 mL oral 20 g (30 mL) PO TID #1,800 mL 07/05/24 01/17/25 solution prazosin 5 mg capsule 10 mg PO QPM 08/04/24 01/18/25 tamsulosin 0.4 mg capsule 0.4 mg PO DAILY 08/04/24 01/18/25 carvedilol phosphate 10 mg 10 mg PO QHS #90 caps 08/06/24 01/18/25 capsule,[id number] multiphase furosemide 20 mg tablet 40 mg PO DAILY 01/17/25 01/18/25 lidocaine 5 % topical patch 1 patch topical DAILY 01/17/25 01/18/25 (Lidoderm) metformin 500 mg tablet,extended 2,000 mg PO QPM 01/17/25 01/18/25 release 24hr (osmotic) rosuvastatin 20 mg tablet (Crestor) 20 mg PO QPM 01/17/25 01/18/25 cephalexin 500 mg capsule 500 mg PO QID 6 days #24 caps 02/15/25 Previous Rx's ?Medication ?Instructions ?Recorded nitroglycerin 0.4 mg sublingual 0.4 mg sublingual Q5 MIN PRN X3 02/10/23 tablet PRN #30 tabs levothyroxine 200 mcg tablet 100 mcg (1/2 x 200 mcg) PO QAM #0 04/10/23 tabs lactulose 20 gram/30 mL oral 20 g (30 mL) PO TID #1,800 mL 07/05/24 solution carvedilol phosphate 10 mg 10 mg PO QHS #90 caps 08/06/24 capsule,[id number] multiphase cephalexin 500 mg capsule 500 mg PO QID 6 days #24 caps 02/15/25 Allergies Allergy/AdvReac Type Severity Reaction Status Date / Time Penicillins Allergy Mild Itching Verified 01/17/25 11:28 morphine AdvReac Severe vomiting Verified 01/17/25 11:28 General Stated Complaint: Abd Prob ANNA: 3 Exam Narrative Exam Narrative: Gen: Awake and alert, in no apparent distress HEENT: Non-icteric sclera Neck: Supple Lungs: No apparent respiratory distress, normal respiratory effort. CV: Appears well perfused, strong distal pulses, bradycardic rate but regular rhythm, frequent ectopy appreciated on telemetry Abdomen: Non-distended, soft, nontender to palpation though the patient does endorse feeling discomfort at baseline in his right lower quadrant that does not change significantly with palpation. He has a colostomy bag with a well- perfused and healthy appearing stoma, light brown stool in the bag (scant), with a large midline incision as well as a lateral surgical scar over the right lower quadrant, well-healed MSK: Moves 4 extremities without apparent limitation in ROM Skin: Visualized skin without rashes, cyanosis. Neuro: Normal Gait, no obvious focal deficits or facial asymmetry. Speaks in full, clear sentences. Psych: Appropriate for situation. Course Vital Signs Vital signs: Vital Signs Temperature 37.0 C 02/15/25 10:36 Pulse 77 02/15/25 10:36 Respiratory Rate 18 02/15/25 10:36 Blood Pressure 129/60 02/15/25 10:36 Pulse Oximetry 95 02/15/25 10:36 Temperature 37.0 C 02/15/25 10:41 Pulse 77 02/15/25 10:41 Respiratory Rate 18 02/15/25 10:41 Blood Pressure 129/60 02/15/25 10:41 Pulse Oximetry 95 02/15/25 10:41 Pain Level 5 02/15/25 10:41 Medical Decision Making This is a 80-year-old male patient presenting for evaluation of abdominal pain and vomiting. Differential includes but is not limited to bowel obstruction, certainly considered appendicitis, diverticulitis, gastroenteritis, pancreatitis. Considered urinary tract infection, given the very low positioning of the pain. Considered hernia complications including incarcerated or strangulated hernia, though I note no overlying skin changes on my abdominal examination and do not palpate a hernia. Considered metabolic and electrolyte derangements, anemia, dehydration. No pain out of proportion to suggest mesenteric ischemia, symptoms less concerning for aortic pathology in this normotensive patient without tearing abdominal pain. We will obtain laboratory studies to include CBC, CMP, magnesium, troponin, lipase, lactate, and will obtain a CT of the abdomen and pelvis to better characterize any abnormalities. I will obtain an EKG given the patient's arrhythmia, though he is reassuringly without chest pain to suggest ACS, and does not have any palpitations associated with his frequent ectopic burden. - I independently interpreted the laboratory studies, which show a stable leukop enia to 3.4, stable anemia, and stable thrombocytopenia without interval change from prior laboratory studies. The chemistry panel is without evidence of electrolyte abnormality, new kidney dysfunction, or liver injury, other than a mildly low magnesium at 1.5. Lactate was elevated at 5.1. I provided him with 2 g of magnesium intravenously for repletion, as well as 500 cc of IV fluid, given slowly given his history of heart failure. He did have a negative troponin without delta change on 1 hour repeat, reassuring against acute ischemia. His lipase was low. The patient's urinalysis shows positive nitrites, blood, and leukocyte esterase, with bacteria. Though there were moderate epithelial cells and this capture concerning for contamination, the presence of nitrites and abdominal pain is increasing my suspicion enough that I feel the patient would benefit from treatment for urinary tract infection. I reviewed the patient CT scan, which was performed using mesenteric ischemia protocol and given his elevated lactate, and which shows no acute abnormalities in the abdomen/pelvis to explain his symptoms. The patient received a dose of ceftriaxone and a prescription for Keflex, urine will be sent for culture. Final Assessment: UTI, potential comorbid gastritis/gastroenteritis Clinical Impression: - Abdominal pain - UTI - Hypomagnesemia Disposition: - Discharge to his care facility on cephalexin MDM Components Evaluation: - Number of Differential Diagnoses or Management Options: Viral infection or gastroenteritis - Amount and Complexity of Data Reviewed: Laboratory results, CT scan, EKG - Risk of Complication and Morbidity or Mortality: Moderate risk due to dehydration and cardiac considerations Terese Jennings MD Patient consented to the use of [facility] for this patient encounter. Medical Records Medical records reviewed: Yes I reviewed the patient's medical records. Lab Data Lab results reviewed: Yes I reviewed the patient's lab results. Quality:SDOH Health Related Social Needs: Health related social needs problems related to housin g/economic circumstances (Z59.89), problems with daily activities (Z73.9), feeling lonely/isolated (Z60.8) Health related social needs details Unable to get in a nd out of home, ambulate or perform ADLs. PFSH All Active Problems (Updated 02/15/25 @ 14:35 by Terese Jennings MD) Vomiting (Acute) Abdominal pain (Acute) Elevated lactic acid level (Acute) Acute UTI (Acute) Symptomatic bradycardia (Acute) Acute hypokalemia (Acute) Family conflict (Acute) Chest pain in adult (Acute) Fall (Acute) Thrombocytopenia (Chronic) Colostomy care (Acute) Chronic low back pain (Chronic) Hematuria (Acute) Elevated troponin level not due myocardial infarction (Acute) Leukopenia (Acute) Oral candidiasis (Acute) Sepsis syndrome (Acute) Gram-negative bacteremia (Acute) Cellulitis (Acute) Lower urinary obstructive symptom (Acute) Anemia of chronic disease (Acute) Thrombocytopenia (Chronic) Ventricular ectopy (Acute) Sinus bradycardia (Acute) Leukocytosis (Acute) Hypertension (Chronic) Elevated lactic acid level (Acute) CHF (congestive heart failure) (Chronic) No-show for appointment (Acute) Left rotator cuff tear (Acute) Acute UTI (urinary tract infection) (Acute) Weakness (Acute) Non-ST elevation PA (NSTEMI) (Acute) Pre-syncope (Acute) Frequent falls (Acute) Orthostatic hypotension (Acute) Chronic atrial fibrillation (Chronic) Type 2 diabetes mellitus (Chronic) Hypokalemia (Acute) Bradycardia (Acute) Multiple falls (Acute) Acute metabolic encephalopathy (Acute) Medication monitoring encounter (Acute) ANETTE (obstructive sleep apnea) (Chronic) Chest pain (Acute) CHF exacerbation (Acute) CHF (congestive heart failure) (Chronic) EF 25%- 2023 Medical History Goals of care, counseling/discussion Lactic acidosis UTI (urinary tract infection) Urinary tract infection Advanced care planning/counseling discussion Palliative care encounter Followed by [facility] Bowel obstruction Sepsis Heart failure with reduced ejection fraction Hypothyroidism Small bowel obstruction Lactic acid acidosis Creatinine elevation Acute UTI Anticoagulated COVID Recurrent intestinal obstruction History of colon cancer Chronic anticoagulation Portal hypertension Cirrhosis TIPs placed (?when, [facility] 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, Dx [facility] as per pt Non-insulin dependent type 2 diabetes mellitus Incontinence Hypertension Scleral icterus Surgical History S/P TIPS (transjugular intrahepatic portosystemic shunt) H/O left hemicolectomy Colostomy in place Social History Smoking/Tobacco Use Status: Former Tobacco Use Smoking risk assessment performed?: Yes Alcohol Intake: former Drug use: Never Substance use type: does not use Housing: house Do you feel safe at home: Yes Do you feel safe in your relationship?: Yes Additional Social history: Lives with , son, and sick [id number] in [place], moved up from [place] in 2019. [place].
--- NOTE | 2025-02-15 11:00 | DI.CT_ITS ---
Exam(s) CT ABDOMEN PELVIS CTA EXAM: CT ABDOMEN PELVIS CTA CLINICAL HISTORY: RLQ abd pain, eval SBO, mesenteric ischemia. TECHNIQUE: Imaging Protocol: Axial CT angiography was performed with multi-slice acquisition and m ulti-planar and/or 3D reconstructions. CONTRAST MATERIAL: Intravenous: Omnipaque 350 Contrast volume:100mL Oral: No COMPARISON: CT CT ABDOMEN PELVIS W from 01/17/2025 FINDINGS: ABDOMEN AND PELVIS: Abdomen: Celiac axis/mesenteric arteries: No evidence of occlusion or significant stenosis. Mild atherosclerot ic calcification is seen. No significant stenosis is present. Renal Arteries: No evidence of occlusion or significant stenosis. Mild atherosclerotic calcification is seen at the origin of both renal arteries but no significant stenosis is seen. Aorta: No evidence of occlusion or significant stenosis. No aneurysm or dissection. Atherosclerotic calcification is present. Pelvis: Iliac Arteries: No evidence of occlusion or significant stenosis. Atherosclerotic calcification is p resent. Common Femoral Arteries: No evidence of occlusion or significant stenosis. Atherosclerotic calcifica tion is present. ABDOMEN: Lung bases: Unremarkable. Liver: There is a lobulated contour of the liver suggesting hepatic cirrhosis. The patient has a TIP S in place. No measurable mass. Portal, Superior Mesenteric, and Splenic Veins: Unremarkable. There is no portal venous gas. Gallbladder and Biliary Tract: There is a tiny calcific density in the gallbladder which may represen t a stone. No biliary ductal dilatation. Pancreas: Normal density and no inflammatory process is identified. The 2 pancreatic calcifications are unchanged. Spleen: The spleen is enlarged. Adrenals: No masses seen. Kidneys: Normal size, contour and axis. No radiodense stones or obstructive uropathy. No masses seen. Bowel: There has been resection of the rectosigmoid colon. There is a left lower quadrant colostomy. There is an entero colonic anastomosis in the right abdomen. There is a small bowel anastomosis in the central lower abdomen. There is no evidence of bowel obstruction or bowel wall thickening. The stomach is incompletely distended limiting evaluation. There is no pneumatosis. Peritoneal Cavity: No ascites, collection or mesenteric inflammatory response. No free air.There is s carring seen in the presacral soft tissues. This appears unchanged. Lymph Nodes: Within normal limits. Bones: Unremarkable. Soft Tissues: There is a fat containing right inguinal hernia. PELVIS: Bladder: The stomach is incompletely distended but grossly unremarkable. Reproductive Organs: Unremarkable as visualized. Lymph Nodes: Within normal limits. Bones: Within normal limits. IMPRESSION: 1. No evidence of occlusion, significant stenosis or abdominal aortic aneurysm/dissection. 2. There is no evidence of bowel obstruction, wall thickening or pneumatosis. 3. No acute abdominal or pelvic process. RADIATION DOSE DELIVERED: 1,376.34mGy.cm Total DLP DATA REPOSITORY: All CT scans at this facility are submitted to the National Radiology Data Registry (NRDR) Dose Index Registry (DIR) with the [employer] (A[employer]). RADIATION OPTIMIZATION: All CT scans at this facility use at least one of these dose optimization te chniques: automated exposure control; mA and/or kV adjustment per patient size (includes targeted exa ms where dose is matched to clinical indication); or iterative reconstruction.
[2025-02-15 11:10] LABS: Abs Immature Grans 0.01 10^3/uL (0.0-0.06); Absolute Basophil Count 0.02 10^3/uL (0.0-0.2); Absolute Eosinophil Count 0.25 10^3/uL (0.0-0.7); Absolute Lymphocyte Count 0.47 10^3/uL (1.2-3.4); Absolute Monocyte Count 0.28 10^3/uL (0.1-0.8); Absolute Neutrophil Count 2.41 10^3/uL (1.2-6.7); Basophils % 0.6 %; Eosinophils % 7.3 %; HCT 33.3 % (40.0-50.0); HGB 10.4 g/dL (13.5-17.5); Immature Grans % 0.3 %; Lymphocytes % 13.7 %; MCH 27.7 pg (27.0-33.0); MCHC 31.2 % (32.0-36.0); MCV 89 fL (80-95); MPV 10.8 fL (8.0-11.0); Monocytes % 8.1 %; RBC 3.76 10^6/uL (4.36-5.78); RDW 14.9 % (11.8-14.1); RDW-SD 47.7 fL; WBC 3.44 10^3/uL (4.4-10.8)
[2025-02-15 11:11] LABS: Lactate 5.1 mmol/L (<or=2.0)
[2025-02-15] MEDS: ACETAMINOPHEN 1,000 MG/100 ML BAG 400 MG IVPB (11:20)
[2025-02-15] MEDS: Lactated Ringers 500 ML IV (11:21)
[2025-02-15 11:28] LABS: Diff Comment PLT Morph Reviewed; Platelet Count 75 10^3/uL (130-400); RBC Morphology Normal
[2025-02-15 11:29] LABS: ALT 20 U/L (16-63); AST 29 U/L (15-37); Albumin 2.9 g/dL (3.4-5.0); Alkaline Phosphatase 104 U/L (46-116); Anion Gap 10.5 mmol/L (3-11); BUN 16 mg/dL (7-18); Bilirubin, Total 1.1 mg/dL (0.2-1.0); CO2 23.5 mmol/L (21.0-32.0); CREATININE 1.4 mg/dL (0.70-1.30); Calcium 9.3 mg/dL (8.5-10.1); Chloride 108 mmol/L (98-107); Estimated GFR 51.45 (mL/min/1.73m2); Glucose 105 mg/dL (74-106); Lipase 73 U/L (<78); Magnesium 1.5 mg/dL (1.8-2.4); Potassium 4.2 mmol/L (3.5-5.1); Sodium 142 mmol/L (136-145); Total Protein 6.2 g/dL (6.4-8.2); Troponin I 41 ng/L (<or=76)
[2025-02-15] MEDS: Omnipaque 350 MG/ML 100 ML BTL IJ (12:22)
[2025-02-15] MEDS: Normal Saline - Diluent 50 ML VIAL IJ (12:23)
[2025-02-15] MEDS: MAGNESIUM SULFATE 2 GM/50 ML BAG IV_INF (12:33)
[2025-02-15 12:48] LABS: Bilirubin Negative (Negative); Blood Trace-intact (Negative); Clarity Sl Cloudy (Clear); Glucose 500 mg/dL (Negative); Ketones Negative (Negative); Leukocyte Esterase Trace (Negative); Nitrite Positive (Negative); Specific Gravity 1.015 (1.005-1.025); Urobilinogen 0.2 mg/dL (Up to 0.2); pH 5.5 (5-8)
[2025-02-15 12:54] LABS: Bacteria Many HPF (Negative); C & S Indicated? No; Casts Negative LPF (Negative); Crystals Negative HPF (Negative); Epithelial Cells Moderate HPF (Negative); Mucus Moderate (Negative)
[2025-02-15 13:19] LABS: Troponin I 38 ng/L (<or=76)
[2025-02-15] MEDS: cefTRIAXone 1 GM/50 ML BAG IVPB (14:24)
== END 2025-02-15 17:36 | disposition home or self-care (01) ==
PROVIDERS: Emergency Provider Emergency Medicine; PCP Nurse Practitioner Adult Health
DX: N39.0 Urinary tract infection, site not specified (principal); R74.02 Elevation of levels of lactic acid dehydrogenase [LDH]; R10.31 Right lower quadrant pain; R11.10 Vomiting, unspecified; I48.91 Unspecified atrial fibrillation; I25.2 Old myocardial infarction; I11.0 Hypertensive heart disease with heart failure; I50.22 Chronic systolic (congestive) heart failure; E11.22 Type 2 diabetes mellitus with diabetic chronic kidney disease; E03.9 Hypothyroidism, unspecified; Z79.01 Long term (current) use of anticoagulants; Z79.84 Long term (current) use of oral hypoglycemic drugs; Z93.3 Colostomy status
CPT/HCPCS: 36415; 80053; 83690; 87077; 93005; 96361; 96365; 96366; 96368; 96375; 99285; 74174; 81003; 81015; 83605; 83735; 84484; 85025; 87086; 87186; 93010; J0131; J0696; J3475; J3490

== ENCOUNTER 2025-02-26 18:08 | Inpatient (IN) | payer OTHER, SELFPAY ==
[2025-02-26 18:07] VITALS: BP 151/51; PULSE 75; RESP 16; TEMP 36.7; O2SAT 98
--- NOTE | 2025-02-26 18:15 | DI.CT_ITS ---
Exam(s) CT ABDOMEN PELVIS W EXAM: CT ABDOMEN PELVIS W CLINICAL HISTORY: right sided abdominal pain. TECHNIQUE: Imaging Protocol: Axial computed tomography images with coronal and sagittal reformatted images were created and reviewed CONTRAST MATERIAL: Intravenous: Omnipaque 350 Contrast volume:100 ml Oral: no COMPARISON: CT CT CHEST/ABD/PEL W from 07/28/[address] ABDOMEN PELVIS W from 08/07/[address] ABDOMEN PELVIS CTA from 02/15/2025 FINDINGS: ABDOMEN and PELVIS: Lung Bases: No acute findings. Mild emphysematous changes. The heart is enlarged. Liver: Tips. No evidence of occlusion or thrombus. Nodular contour consistent with cirrhosis. Norm al density. A cyst left lobe, unchanged. No suspicious mass. Gallbladder and biliary tract: No radiodense calculus. No wall thickening or pericholecystic fluid. No biliary dilation. Pancreas: Normal density. No abnormal calcifications or inflammatory process. No evidence of mass. Spleen: enlarged, unchanged. Kidneys: Normal size, contour and axis. No radiodense stones. No obstructive uropathy. No suspicious masses seen. Adrenal glands: No masses seen. Vasculature: Abdominal aorta non-dilated. Soft tissues: Scarring and wall thickening. Left-sided colostomy is unremarkable. Small right-sided fatty containing hernia. Small fat containing right inguinal hernia. Bladder: No gross wall thickening. No calculi.No focal mass. Bowel: Abnormally dilated small bowel with feculent material and air-fluid levels seen mid to low abd omen in area of small bowel anastomoses. Again the bowel in this area appears tethered to the anteri or abdominal wall. Stable appearance of resection of the rectum and sigmoid. Left-sided colostomy. Ileocolic anastomos is. Peritoneal cavity: No ascites. No focal collection. No mesenteric inflammatory response. No free air . Bones: Unremarkable for age. Reproductive organs: Unremarkable. Lymph nodes: No pathologically enlarged lymph nodes. IMPRESSION:: Multiple previous bowel surgeries with of small bowel anastomoses noted in the anterior midline of the abdomen and upper pelvis. Increasing dilatation of these loops consistent with fecul ent appearing material and air-fluid levels, consistent with obstruction which may be closed loop ob struction. RADIATION DOSE DELIVERED: Total DLP DATA REPOSITORY: All CT scans at this facility are submitted to the National Radiology Data Registry (NRDR) Dose Index Registry (DIR) with the [employer] (ACR). RADIATION OPTIMIZATION: All CT scans at this facility use at least one of these dose optimization te chniques: automated exposure control; mA and/or kV adjustment per patient size (includes targeted exa ms where dose is matched to clinical indication); or iterative reconstruction.
--- NOTE | 2025-02-26 18:29 | ED.GENADUL_ITS ---
Discharge Plan Disposition Patient Disposition: Admit to [facility] Condition: Stable Discharge Details Clinical Impression: SBO (small bowel obstruction) Primary Care Provider: Maryann Whitt ED Provider: Kevin Morrissey Kenvil Meds and New Rx's Prescriptions: No Action pantoprazole 40 mg Tablet,Delayed Release (Dr/Ec) 40 mg PO DAILY pregabalin 50 mg Capsule 50 mg PO BID Eliquis 5 mg Tablet 5 mg PO BID Patient Comments: taking per pt nitroglycerin 0.4 mg Tablet, Sublingual 0.4 mg sublingual Q5 MIN PRN X3 PRNQty: 30 0RF miconazole nitrate 2 % Powder 1 applic TOPICAL BID PRN rifaximin 550 mg Tablet 550 mg PO BID prazosin 5 mg capsule 10 mg PO QPM tamsulosin 0.4 mg Capsule 0.4 mg PO DAILY carvedilol phosphate 10 mg capsule, ER multiphase 24 hr 10 mg PO QHS Qty: 90 1RF Rx Instructions: must administer with a meal/food lidocaine [Lidoderm] 5 % adhesive patch,medicated 1 patch topical DAILY Rx Instructions: leave on most painful area for up to 12 hrs furosemide 20 mg tablet 40 mg PO DAILY rosuvastatin [Crestor] 20 mg Tablet 20 mg PO QPM metformin 500 mg tablet extended release 24hr 1,000 mg PO QPM bisacodyl [Dulcolax (bisacodyl)] 10 mg suppository 10 mg FL DAILY PRN ondansetron 4 mg tablet,disintegrating 4 mg PO Q6H PRN potassium chloride 20 mEq tablet extended release 20 meq PO DAILY spironolactone [Aldactone] 25 mg tablet 12.5 mg PO DAILY venlafaxine [Effexor XR] 75 mg capsule,extended release 24hr 75 mg PO DAILY Patient Comments: takes w/150mg capsule for total dose of 225mg daily lactulose 20 gram/30 mL Solution 10 g PO TID Rx Instructions: to maintain colostomy output of 3-4 bags per day ferrous sulfate 325 mg (65 mg iron) Tablet 325 mg PO DAILY empagliflozin 25 mg Tablet 25 mg PO DAILY levothyroxine 200 mcg Tablet 100 mcg PO QAM Qty: 0 0RF cholecalciferol (vitamin D3) 25 mcg (1,000 unit) capsule 25 mcg PO DAILY losartan 50 mg tablet 50 mg PO BID venlafaxine 150 mg capsule,extended release 24hr 150 mg PO DAILY acetaminophen [Tylenol] 325 mg Capsule 650 mg PO Q6H MDD 3000 PRN HPI General Mode of arrival: EMS . Date/Time Provider Initiated Documentation: 02/26/25 18:11 . Limitations to Documentation: no limitations . Information obtained by: patient . History of Present Illness 80 year old M presents to the emergency department with the chief complaint of abdominal pain, described as moderate, Quality is described as aching, and is localized to the abdomen. Patient reports no radiation. Patient started experiencing this week(s) (2) and it has been intermittent. No relieving factors improve symptom(s), No exacerbating factors reported . Patient notes nausea/vomiting; denies chest pain and shortness of breath. Patient did receive the following treatments prior to arrival, none Related Data Home Medications ?Medication ?Instructions ?Recorded ?Confirmed apixaban 5 mg tablet (Eliquis) 5 mg PO BID 11/08/22 02/26/25 pantoprazole 40 mg tablet,delayed 40 mg PO DAILY 11/08/22 02/26/25 release pregabalin 50 mg capsule 50 mg PO BID 11/08/22 02/26/25 nitroglycerin 0.4 mg sublingual 0.4 mg sublingual Q5 MIN PRN X3 02/10/23 02/26/25 tablet PRN #30 tabs ferrous sulfate 325 mg (65 mg 325 mg PO DAILY 03/08/23 02/26/25 iron) tablet empagliflozin 25 mg tablet 25 mg PO DAILY 04/09/23 02/26/25 levothyroxine 200 mcg tablet 100 mcg (1/2 x 200 mcg) PO QAM #0 04/10/23 02/26/25 tabs miconazole nitrate 2 % topical 1 applic topical BID PRN 06/16/23 02/26/25 powder rifaximin 550 mg tablet 550 mg PO BID 07/07/23 02/26/25 cholecalciferol (vitamin D3) 25 25 mcg PO DAILY 03/05/24 02/26/25 mcg (1,000 unit) capsule losartan 50 mg tablet 50 mg PO BID 03/05/24 02/26/25 venlafaxine 150 mg 150 mg PO DAILY 03/05/24 02/26/25 capsule,extended release 24 hr acetaminophen 325 mg capsule 650 mg PO Q6H PRN 05/12/24 02/26/25 (Tylenol) prazosin 5 mg capsule 10 mg PO QPM 08/04/24 02/26/25 tamsulosin 0.4 mg capsule 0.4 mg PO DAILY 08/04/24 02/26/25 carvedilol phosphate 10 mg 10 mg PO QHS #90 caps 08/06/24 02/26/25 capsule,[id number] multiphase furosemide 20 mg tablet 40 mg PO DAILY 01/17/25 02/26/25 lidocaine 5 % topical patch 1 patch topical DAILY 01/17/25 02/26/25 (Lidoderm) metformin 500 mg tablet,extended 1,000 mg PO QPM 01/17/25 02/26/25 release 24hr (osmotic) rosuvastatin 20 mg tablet (Crestor) 20 mg PO QPM 01/17/25 02/26/25 bisacodyl 10 mg rectal suppository 10 mg FL DAILY PRN 02/26/25 02/26/25 (Dulcolax (bisacodyl)) lactulose 20 gram/30 mL oral 10 g PO TID 02/26/25 02/26/25 solution ondansetron 4 mg disintegrating 4 mg PO Q6H PRN 02/26/25 02/26/25 tablet potassium chloride 20 mEq 20 meq PO DAILY 02/26/25 02/26/25 tablet,extended release spironolactone 25 mg tablet 12.5 mg PO DAILY 02/26/25 02/26/25 (Aldactone) venlafaxine 75 mg capsule,extended 75 mg PO DAILY 02/26/25 02/26/25 release 24 hr (Effexor XR) Previous Rx's ?Medication ?Instructions ?Recorded nitroglycerin 0.4 mg sublingual 0.4 mg sublingual Q5 MIN PRN X3 02/10/23 tablet PRN #30 tabs levothyroxine 200 mcg tablet 100 mcg (1/2 x 200 mcg) PO QAM #0 04/10/23 tabs carvedilol phosphate 10 mg 10 mg PO QHS #90 caps 08/06/24 capsule,[id number] multiphase Allergies Allergy/AdvReac Type Severity Reaction Status Date / Time Penicillins Allergy Mild Itching Verified 02/26/25 18:11 morphine AdvReac Severe vomiting Verified 02/26/25 18:11 General Stated Complaint: Abd Prob ANNA: 3 Review of Systems All systems reviewed & are unremarkable except as noted in HPI and below Constitutional Constitutional: Denies chills, Denies fever(s) and Denies weakness Cardiovascular Cardiovascular: Denies chest pain and Denies dyspnea Respiratory Respiratory: Denies cough and Denies dyspnea Gastrointestinal Gastrointestinal: Reports abdominal pain, Reports nausea and Reports vomiting Neurologic Neurologic: Denies weakness Endocrine Endocrine: Denies heat intolerance Exam Const General: no acute distress Orientation: alert HENRI Head: normal to inspection Ears: external ears normal General nose exam: external nose normal Mouth: moist mucous membranes Eyes General: appearance normal, both eyes and all related structures Neck Neck: normal visual inspection Resp Effort & Inspection: normal respiratory effort and able to speak in complete sentences Cardio Rate: regular rate GI Palpation: soft, no guarding and tender Skin General skin exam: no rashes or lesions noted Neuro General: patient alert and patient oriented x3 Extrem General: normal to inspection Psych Mental Status: mental status grossly normal Course Vital Signs Vital signs: Vital Signs Temperature 36.7 C 02/26/25 18:07 Pulse 75 02/26/25 18:07 Respiratory Rate 16 02/26/25 18:07 Blood Pressure 151/51 H 02/26/25 18:07 Pulse Oximetry 98 02/26/25 18:07 Temperature 36.7 C 02/26/25 18:07 Temperature Source Tympanic 02/26/25 18:07 Pulse 75 02/26/25 18:07 Respiratory Rate 16 02/26/25 18:07 Blood Pressure 151/51 H 02/26/25 18:07 Pulse Oximetry 98 02/26/25 18:07 Oxygen Delivery Method Room Air 02/26/25 18:07 Oxygen Flow Rate 0 02/26/25 18:07 Medical Decision Making 80-year-old male who has an ostomy in place, who is [facility] complaints of right-sided abdominal pain and nausea and had a CTA which showed no acute findings but did have evidence of UTI, [facility] with continued pain on the right side of his abdomen and nausea. He was given Zofran prior to arrival and that has improved his symptoms. He has mild tenderness in the right lower and right upper quadrant. There is brown appearing stool in the ostomy. He is not vomiting and he appears well when talking with him. Given the reassuring CTA week ago I doubt mesenteric ischemia. I will check a CBC, CMP and lipase and though my suspicion for SBO is low we will also obtain CT abdomen pelvis for evaluation of this. CT shows small bowel obstruction. I spoke with Dr. Meyer from general surgery who recommends NG tube placement and is not a surgical candidate so recommends medical admission which has been the case the most recent times has been admitted. Updated patient he is okay with being admitted and having NG tube. Will discuss with hospitalist. Differential Diagnosis Differential Diagnosis: SBO, colitis, diverticulitis Medical Records Medical records reviewed: Yes I reviewed the patient's medical records. Lab Data Lab results reviewed: Yes I reviewed the patient's lab results. Quality:SDOH Health Related Social Needs: Health related social needs problems related to housin g/economic circumstances (Z59.89), problems with daily activities (Z73.9), feeling lonely/isolated (Z60.8) Health related social needs details Unable to get in a nd out of home, ambulate or perform ADLs. PFSH All Active Problems (Updated 02/26/25 @ 20:24 by Kevin Morrissey MD) SBO (small bowel obstruction) (Acute) Vomiting (Acute) Abdominal pain (Acute) Elevated lactic acid level (Acute) Acute UTI (Acute) Symptomatic bradycardia (Acute) Acute hypokalemia (Acute) Family conflict (Acute) Chest pain in adult (Acute) Fall (Acute) Thrombocytopenia (Chronic) Colostomy care (Acute) Chronic low back pain (Chronic) Hematuria (Acute) Elevated troponin level not due myocardial infarction (Acute) Leukopenia (Acute) Oral candidiasis (Acute) Sepsis syndrome (Acute) Gram-negative bacteremia (Acute) Cellulitis (Acute) Lower urinary obstructive symptom (Acute) Anemia of chronic disease (Acute) Thrombocytopenia (Chronic) Ventricular ectopy (Acute) Sinus bradycardia (Acute) Leukocytosis (Acute) Hypertension (Chronic) Elevated lactic acid level (Acute) CHF (congestive heart failure) (Chronic) No-show for appointment (Acute) Left rotator cuff tear (Acute) Acute UTI (urinary tract infection) (Acute) Weakness (Acute) Non-ST elevation TN (NSTEMI) (Acute) Pre-syncope (Acute) Frequent falls (Acute) Orthostatic hypotension (Acute) Chronic atrial fibrillation (Chronic) Type 2 diabetes mellitus (Chronic) Hypokalemia (Acute) Bradycardia (Acute) Multiple falls (Acute) Acute metabolic encephalopathy (Acute) Medication monitoring encounter (Acute) ANETTE (obstructive sleep apnea) (Chronic) Chest pain (Acute) CHF exacerbation (Acute) CHF (congestive heart failure) (Chronic) EF 25%- 2023 Medical History Goals of care, counseling/discussion Lactic acidosis UTI (urinary tract infection) Urinary tract infection Advanced care planning/counseling discussion Palliative care encounter Followed by [facility] Bowel obstruction Sepsis Heart failure with reduced ejection fraction Hypothyroidism Small bowel obstruction Lactic acid acidosis Creatinine elevation Acute UTI Anticoagulated COVID Recurrent intestinal obstruction History of colon cancer Chronic anticoagulation Portal hypertension Cirrhosis TIPs placed (?when, 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, Dx [facility] as per pt Non-insulin dependent type 2 diabetes mellitus Incontinence Hypertension Scleral icterus Surgical History S/P TIPS (transjugular intrahepatic portosystemic shunt) H/O left hemicolectomy Colostomy in place Social History Smoking/Tobacco Use Status: Former Tobacco Use Smoking risk assessment performed?: Yes Alcohol Intake: former Drug use: Never Substance use type: does not use Housing: house Do you feel safe at home: Yes Do you feel safe in your relationship?: Yes Additional Social history: from [facility]
[2025-02-26] MEDS: Omnipaque 350 MG/ML 100 ML BTL IJ (18:55)
[2025-02-26] MEDS: Normal Saline - Diluent 50 ML VIAL IJ (18:57)
[2025-02-26 19:05] LABS: Abs Immature Grans 0.01 10^3/uL (0.0-0.06); Absolute Basophil Count 0.02 10^3/uL (0.0-0.2); Absolute Eosinophil Count 0.24 10^3/uL (0.0-0.7); Absolute Lymphocyte Count 0.37 10^3/uL (1.2-3.4); Absolute Monocyte Count 0.28 10^3/uL (0.1-0.8); Basophils % 0.4 %; Eosinophils % 4.7 %; HCT 34.4 % (40.0-50.0); HGB 10.7 g/dL (13.5-17.5); Immature Grans % 0.2 %; Lymphocytes % 7.2 %; MCH 27.4 pg (27.0-33.0); MCHC 31.1 % (32.0-36.0); MCV 88 fL (80-95); Monocytes % 5.5 %; RDW 14.8 % (11.8-14.1); RDW-SD 47.6 fL; WBC 5.12 10^3/uL (4.4-10.8)
[2025-02-26] MEDS: HYDROmorphone 2 MG/ML SYR 0.5 MG IVP (19:13)
[2025-02-26 19:16] LABS: Platelet Count 75 10^3/uL (130-400)
[2025-02-26 19:18] LABS: Prothrombin Time 12.4 sec (9.1-11.1)
[2025-02-26 19:27] LABS: ALT 24 U/L (16-63); AST 30 U/L (15-37); Albumin 3.2 g/dL (3.4-5.0); Alkaline Phosphatase 128 U/L (46-116); Anion Gap 10.6 mmol/L (3-11); BUN 28 mg/dL (7-18); Bilirubin, Total 1.3 mg/dL (0.2-1.0); CO2 25.4 mmol/L (21.0-32.0); CREATININE 1.8 mg/dL (0.70-1.30); Calcium 9.9 mg/dL (8.5-10.1); Chloride 107 mmol/L (98-107); Estimated GFR 38.05 (mL/min/1.73m2); Glucose 124 mg/dL (74-106); Lipase 52 U/L (<78); Magnesium 1.8 mg/dL (1.8-2.4); Potassium 4.9 mmol/L (3.5-5.1); Sodium 143 mmol/L (136-145); Total Protein 6.8 g/dL (6.4-8.2)
[2025-02-26 19:32] LABS: INR 1.2 (0.9-1.1)
--- NOTE | 2025-02-26 20:09 | DI.VRAD_ITS ---
Addendum created by Phoenix Jim MD on 02/26/2025 8:11:12 PM EDT: THIS REPORT CONTAINS FINDINGS THAT MAY BE CRITICAL TO PATIENT CARE. The findings were verbally communicated via telephone conference with Kevin Morrissey at 8:11 PM EDT on 02/26/2025. The findings were acknowledged and understood. Initial report created on 02/26/2025 8:09:28 PM EDT: PROCEDURE INFORMATION: Exam: CT Abdomen And Pelvis With Contrast Exam date and time: 02/26/2025 7:21 PM Age: 80 years old Clinical indication: Localized; Right; R sided abdominal pain TECHNIQUE: Imaging protocol: Computed tomography of the abdomen and pelvis with contrast. COMPARISON: CT ABDOMEN PELVIS CTA 02/15/2025 12:13 PM FINDINGS: Diaphragm: Small hiatal hernia. Liver: Nodular contour to the liver consistent with hepatocellular dysfunction/ cirrhosis. Previous tips procedure. Stable 10 mm left hepatic cyst. Gallbladder and biliary ducts: Normal. No calcified stones. No ductal dilation. Pancreas: Normal. No ductal dilation. Spleen: Splenomegaly up to 16.3 cm. Adrenal glands: Normal. No mass. Kidneys and ureters: Normal. No hydronephrosis. Stomach and bowel: Previous resection of the right colon and sigmoid, with a colostomy at the left abdomen. Previous small bowel resections. Focal segment of of moderately dilated small bowel loops right lower quadrant consistent with bowel obstruction. Abnormal morphology of the dilated bowel loops noted which may be related to previous surgery, but closed loop small bowel obstruction is a consideration. Correlate with clinical situation. Appendix: No evidence of appendicitis. Intraperitoneal space: Unremarkable. No free air. No significant fluid collection. Vasculature: Aorta demonstrates mild atherosclerotic calcification. No abdominal aortic aneurysm. Lymph nodes: Unremarkable. No enlarged lymph nodes. Urinary bladder: Unremarkable as visualized. Reproductive: Unremarkable as visualized. Bones/joints: Unremarkable. No acute fracture. Soft tissues: Bilateral fat containing inguinal hernias without incarceration. IMPRESSION: 1. Focal segment of of moderately dilated small bowel loops right lower quadrant consistent with bowel obstruction. Abnormal morphology of the dilated bowel loops noted which may be related to previous surgery, but closed loop small bowel obstruction is a consideration. Correlate with clinical situation. 2. Nodular contour to the liver consistent with hepatocellular dysfunction/ cirrhosis. 3. Splenomegaly up to 16.3 cm. Dictated and Authenticated by: Phoenix Jim MD. Orderin Yuni Brown MD
--- NOTE | 2025-02-26 20:19 | SCONE_ITS ---
Date of service: 02/26/25 Time of Service: 20:19 Assessment and Plan Assessment and plan (1) Small bowel obstruction: Assessment and plan: 80 yo man with another, recurrent SBO. NGT decompression historically is successful for him many times over. His recurrences have varied from infrequent to recurring in a matter of days. As with prior consultations and recommendations - he is not a candidate to get surgical exploration here. It is reasonable to try a couple of days of decompression with NGT like we have done in the past. However, if he fails to open up, he will need to be transferred. OVERALL RECS: NGT placement and decompression - low, continuous suction Await bowel function - if no improvement within 72 hours, transfer No surgery here at [facility] History of Present Illness Narrative: Patient very well-known to surgical and hospitalist services for recurrent bowel obstructions. Has many medical conditions chronically which are very serious, on top of being elderly. Has an extensive surgical history. PFS All Active Problems (Updated 02/26/25 @ 20:24 by Kevin Morrissey MD) SBO (small bowel obstruction) (Acute) Vomiting (Acute) Abdominal pain (Acute) Elevated lactic acid level (Acute) Acute UTI (Acute) Symptomatic bradycardia (Acute) Acute hypokalemia (Acute) Family conflict (Acute) Chest pain in adult (Acute) Fall (Acute) Thrombocytopenia (Chronic) Colostomy care (Acute) Chronic low back pain (Chronic) Hematuria (Acute) Elevated troponin level not due myocardial infarction (Acute) Leukopenia (Acute) Oral candidiasis (Acute) Sepsis syndrome (Acute) Gram-negative bacteremia (Acute) Cellulitis (Acute) Lower urinary obstructive symptom (Acute) Anemia of chronic disease (Acute) Thrombocytopenia (Chronic) Ventricular ectopy (Acute) Sinus bradycardia (Acute) Leukocytosis (Acute) Hypertension (Chronic) Elevated lactic acid level (Acute) CHF (congestive heart failure) (Chronic) No-show for appointment (Acute) Left rotator cuff tear (Acute) Acute UTI (urinary tract infection) (Acute) Weakness (Acute) Non-ST elevation [place] (NSTEMI) (Acute) Pre-syncope (Acute) Frequent falls (Acute) Orthostatic hypotension (Acute) Chronic atrial fibrillation (Chronic) Type 2 diabetes mellitus (Chronic) Hypokalemia (Acute) Bradycardia (Acute) Multiple falls (Acute) Acute metabolic encephalopathy (Acute) Medication monitoring encounter (Acute) ANETTE (obstructive sleep apnea) (Chronic) Chest pain (Acute) CHF exacerbation (Acute) CHF (congestive heart failure) (Chronic) EF 25%- 2023 Medical History Goals of care, counseling/discussion Lactic acidosis UTI (urinary tract infection) Urinary tract infection Advanced care planning/counseling discussion Palliative care encounter Followed by [facility] Bowel obstruction Sepsis Heart failure with reduced ejection fraction Hypothyroidism Small bowel obstruction Lactic acid acidosis Creatinine elevation Acute UTI Anticoagulated COVID Recurrent intestinal obstruction History of colon cancer Chronic anticoagulation Portal hypertension Cirrhosis TIPs placed (?when, [facility]? 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, Dx [facility] as per pt Non-insulin dependent type 2 diabetes mellitus Incontinence Hypertension Scleral icterus Surgical History S/P TIPS (transjugular intrahepatic portosystemic shunt) H/O left hemicolectomy Colostomy in place Social History Smoking/Tobacco Use Status: Former Tobacco Use Smoking risk assessment performed?: Yes Alcohol Intake: former Drug use: Never Substance use type: does not use Housing: house Do you feel safe at home: Yes Do you feel safe in your relationship?: Yes Additional Social history: from [facility] Results Last Vital Signs Temp 98.1 F 02/26/25 18:07 Pulse 75 02/26/25 18:07 Resp 16 02/26/25 18:07 BP 151/51 H 02/26/25 18:07 Pulse Ox 98 02/26/25 18:07 Labs 02/26/25 19:00 02/26/25 19:00 Labs: Laboratory Results - last 24 hr 02/26/25 19:00 WBC 5.12 RBC 3.90 L Hgb 10.7 L Hct 34.4 L MCV 88 MCH 27.4 MCHC 31.1 L RDW 14.8 H Plt Count 75 L MPV 11.0 Immature Gran % 0.2 Neutrophils % 82.0 Lymphocytes % 7.2 Monocytes % 5.5 Eosinophils % 4.7 Basophils % 0.4 Nucleated RBC % 0.0 Absolute Neutrophils 4.20 Absolute Lymphocytes 0.37 L Absolute Monocytes 0.28 Absolute Eosinophils 0.24 Absolute Basophils 0.02 PT 12.4 H INR 1.2 H APTT 27.0 Sodium 143 Potassium 4.9 Chloride 107 Carbon Dioxide 25.4 Anion Gap 10.6 BUN 28 H Creatinine 1.8 H Est GFR (CKD-EPI 2020) 38.05 Glucose 124 H Calcium 9.9 Magnesium 1.8 Total Bilirubin 1.3 H AST 30 ALT 24 Alkaline Phosphatase 128 H Total Protein 6.8 Albumin 3.2 L Lipase 52
[2025-02-26] MEDS: Lidocaine 2% Viscous 1 ML Solution 5 ML PO (20:28)
[2025-02-26] MEDS: Midazolam 2 MG/2 ML VIAL IVP (20:28)
--- NOTE | 2025-02-26 20:30 | DI.RAD_ITS ---
Exam(s) XR PORTABLE CHEST AP EXAM: XR PORTABLE CHEST AP CLINICAL HISTORY: NG tube placement TECHNIQUE: 2D digital imaging was performed. COMPARISON: CR XR PORTABLE CHEST AP from 12/17/2024 FINDINGS: Exam is limited by poor pulmonary inflation. LUNGS: Expiratory changes, otherwise clear. No pleural abnormality seen. HEART: Mildly enlarged. AORTA: Tortuous. BONES: Unremarkable for age. Soft tissues: A nasogastric tube has been placed with the tip projecting in the region of the body of the stomach. IMPRESSION: Satisfactory placement of nasogastric tube. DATA REPOSITORY: RADIATION DOSE DELIVERED:
--- NOTE | 2025-02-26 21:08 | W.PM.HP.N ---
Date of service: 02/26/25 Time of Service: 21:08 Assessment and Plan Assessment and plan (1) SBO (small bowel obstruction): Status: Acute Assessment and plan: The patient comes in w/ acute onset of abdominal pain w/ no BM or flatus in the past 24 hours and a history of recurrent intestinal obstruction. His CT shows mild dilated loops of bowel. On exam he already has NG tube placed for decompression. Will recommend we continue w/ NPO, IVF, NG tube decompression and re-evaluate his symptoms in the morning. Monitor for any flatus or ostomy output -NPO, IVF, NG decompression -Monitor for any flatus or ostomy output (2) CHF (congestive heart failure): Status: Chronic Assessment and plan: -Hold all oral meds as he is NPO w/ NG tube decompression (3) Chronic atrial fibrillation: Status: Chronic Assessment and plan: -Hold off on oral Rx due to SBO and NG tube decompression -IV Metoprolol -Hold on oral Eliquis. If no improvement in SBO tomorrow then we can do SQ anticoagulation (4) Hypothyroidism: Assessment and plan: -Hold off on Levothyroxine 100mcg daily History of Present Illness History of Present Illness Chief Complaint: Abdominal Pain Narrative: The patient is a 80 y/o C M w/ PMH recurrent SBO/intestinal obstruction, AFIB on A/C, sCHF (EF 24%) who comes in today w/ acute onset of left lower quadrant abdominal pain which became worse in the past 24 hours. He describes this as an intense abdominal pain w/o any radiating symptoms. Associated symptoms include nausea and 2 episodes of non-bloody emesis. His last bowel movement and flatus was over 24 hours ago. He has no fever, chills or night sweats. He denies any chest pain, palpitations, coughing, wheezing or dyspnea. He denies any recent new medications or travel history. He does not recall any dietary items which may aggravated his symptoms and denies any new diet. Review of Systems Constitutional Constitutional: Denies chills, Denies fever(s), Denies night sweats, Reports weakness and Denies weight loss Eyes Eyes: Denies blurry vision and Denies eye pain ENT Ears, Nose, Mouth, and Throat: Denies hearing loss, Denies neck pain, Denies sore throat and Denies throat swelling Cardiovascular Cardiovascular: Denies chest pain and Denies dyspnea Respiratory Respiratory: Denies cough, Denies dyspnea and Denies wheezing Gastrointestinal Gastrointestinal: Reports abdominal pain, Denies coffee ground emesis, Denies diarrhea, Denies loose stools, Reports nausea, Reports vomiting and Denies hematemesis Musculoskeletal Musculoskeletal: Denies neck pain Neurologic Neurologic: Reports weakness Allergic/Immunologic Allergic/Immunologic: Denies throat swelling and Denies wheezing PFSH All Active Problems (Updated 02/26/25 @ 20:24 by Kevin Morrissey MD) SBO (small bowel obstruction) (Acute) Vomiting (Acute) Abdominal pain (Acute) Elevated lactic acid level (Acute) Acute UTI (Acute) Symptomatic bradycardia (Acute) Acute hypokalemia (Acute) Family conflict (Acute) Chest pain in adult (Acute) Fall (Acute) Thrombocytopenia (Chronic) Colostomy care (Acute) Chronic low back pain (Chronic) Hematuria (Acute) Elevated troponin level not due myocardial infarction (Acute) Leukopenia (Acute) Oral candidiasis (Acute) Sepsis syndrome (Acute) Gram-negative bacteremia (Acute) Cellulitis (Acute) Lower urinary obstructive symptom (Acute) Anemia of chronic disease (Acute) Thrombocytopenia (Chronic) Ventricular ectopy (Acute) Sinus bradycardia (Acute) Leukocytosis (Acute) Hypertension (Chronic) Elevated lactic acid level (Acute) CHF (congestive heart failure) (Chronic) No-show for appointment (Acute) Left rotator cuff tear (Acute) Acute UTI (urinary tract infection) (Acute) Weakness (Acute) Non-ST elevation [place] (NSTEMI) (Acute) Pre-syncope (Acute) Frequent falls (Acute) Orthostatic hypotension (Acute) Chronic atrial fibrillation (Chronic) Type 2 diabetes mellitus (Chronic) Hypokalemia (Acute) Bradycardia (Acute) Multiple falls (Acute) Acute metabolic encephalopathy (Acute) Medication monitoring encounter (Acute) ANETTE (obstructive sleep apnea) (Chronic) Chest pain (Acute) CHF exacerbation (Acute) CHF (congestive heart failure) (Chronic) EF 25%- 2023 Medical History Goals of care, counseling/discussion Lactic acidosis UTI (urinary tract infection) Urinary tract infection Advanced care planning/counseling discussion Palliative care encounter Followed by [facility] Bowel obstruction Sepsis Heart failure with reduced ejection fraction Hypothyroidism Small bowel obstruction Lactic acid acidosis Creatinine elevation Acute UTI Anticoagulated COVID Recurrent intestinal obstruction History of colon cancer Chronic anticoagulation Portal hypertension Cirrhosis TIPs placed (?when, [facility]? 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 Allergies and Home Medications Allergies Allergy/AdvReac Type Severity Reaction Status Date / Time Penicillins Allergy Mild Itching Verified 02/26/25 18:11 morphine AdvReac Severe vomiting Verified 02/26/25 18:11 Home Medications ?Medication ?Instructions ?Recorded ?Confirmed ?Type apixaban 5 mg tablet (Eliquis) 5 mg PO BID 11/08/22 02/26/25 History pantoprazole 40 mg tablet,delayed 40 mg PO DAILY 11/08/22 02/26/25 History release pregabalin 50 mg capsule 50 mg PO BID 11/08/22 02/26/25 History nitroglycerin 0.4 mg sublingual 0.4 mg sublingual Q5 MIN PRN X3 02/10/23 02/26/25 Rx tablet PRN #30 tabs ferrous sulfate 325 mg (65 mg 325 mg PO DAILY 03/08/23 02/26/25 History iron) tablet empagliflozin 25 mg tablet 25 mg PO DAILY 04/09/23 02/26/25 History levothyroxine 200 mcg tablet 100 mcg (1/2 x 200 mcg) PO QAM #0 04/10/23 02/26/25 Rx tabs miconazole nitrate 2 % topical 1 applic topical BID PRN 06/16/23 02/26/25 History powder rifaximin 550 mg tablet 550 mg PO BID 07/07/23 02/26/25 History cholecalciferol (vitamin D3) 25 25 mcg PO DAILY 03/05/24 02/26/25 History mcg (1,000 unit) capsule losartan 50 mg tablet 50 mg PO BID 03/05/24 02/26/25 History venlafaxine 150 mg 150 mg PO DAILY 03/05/24 02/26/25 History capsule,extended release 24 hr acetaminophen 325 mg capsule 650 mg PO Q6H PRN 05/12/24 02/26/25 History (Tylenol) prazosin 5 mg capsule 10 mg PO QPM 08/04/24 02/26/25 History tamsulosin 0.4 mg capsule 0.4 mg PO DAILY 08/04/24 02/26/25 History carvedilol phosphate 10 mg 10 mg PO QHS #90 caps 08/06/24 02/26/25 Rx capsule,[id number] multiphase furosemide 20 mg tablet 40 mg PO DAILY 01/17/25 02/26/25 History lidocaine 5 % topical patch 1 patch topical DAILY 01/17/25 02/26/25 History (Lidoderm) metformin 500 mg tablet,extended 1,000 mg PO QPM 01/17/25 02/26/25 History release 24hr (osmotic) rosuvastatin 20 mg tablet (Crestor) 20 mg PO QPM 01/17/25 02/26/25 History bisacodyl 10 mg rectal suppository 10 mg [place] DAILY PRN 02/26/25 02/26/25 History (Dulcolax (bisacodyl)) lactulose 20 gram/30 mL oral 10 g PO TID 02/26/25 02/26/25 History solution ondansetron 4 mg disintegrating 4 mg PO Q6H PRN 02/26/25 02/26/25 History tablet potassium chloride 20 mEq 20 meq PO DAILY 02/26/25 02/26/25 History tablet,extended release spironolactone 25 mg tablet 12.5 mg PO DAILY 02/26/25 02/26/25 History (Aldactone) venlafaxine 75 mg capsule,extended 75 mg PO DAILY 02/26/25 02/26/25 History release 24 hr (Effexor XR) Exam Const General: cooperative and no acute distress Nutritional Appearance: average body habitus Orientation: alert, awake and oriented x3 HENMT Head: normal to inspection Ears: external ears normal General nose exam: external nose normal Face and sinus: normal facial exam Eyes General: appearance normal, both eyes and all related structures Neck Neck: normal visual inspection Resp Effort & Inspection: normal respiratory effort Auscultation: clear to auscultation bilaterally Cardio Rate: regular rate Rhythm: regular rhythm Heart Sounds: S1 normal and S2 normal GI Inspection: normal to inspection Palpation: soft Auscultation: normal bowel sounds Other: LLQ Ostomy Normal BS NG tube in place Skin General skin exam: no rashes or lesions noted Extrem General: normal to inspection Results Imaging Imaging Studies: CT Abdomen 1. Focal segment of of moderately dilated small bowel loops right lower quadrant consistent with bowel obstruction. Abnormal morphology of the dilated bowel loops noted which may be related to previous surgery, but closed loop small bowel obstruction is a consideration. Correlate with clinical situation. 2. Nodular contour to the liver consistent with hepatocellular dysfunction/ cirrhosis. 3. Splenomegaly up to 16.3 cm. Labs 02/26/25 19:00 02/26/25 19:00 Labs: Laboratory Results - last 24 hr 02/26/25 19:00 WBC 5.12 RBC 3.90 L Hgb 10.7 L Hct 34.4 L MCV 88 MCH 27.4 MCHC 31.1 L RDW 14.8 H Plt Count 75 L MPV 11.0 Immature Gran % 0.2 Neutrophils % 82.0 Lymphocytes % 7.2 Monocytes % 5.5 Eosinophils % 4.7 Basophils % 0.4 Nucleated RBC % 0.0 Absolute Neutrophils 4.20 Absolute Lymphocytes 0.37 L Absolute Monocytes 0.28 Absolute Eosinophils 0.24 Absolute Basophils 0.02 PT 12.4 H INR 1.2 H APTT 27.0 Sodium 143 Potassium 4.9 Chloride 107 Carbon Dioxide 25.4 Anion Gap 10.6 BUN 28 H Creatinine 1.8 H Est GFR (CKD-EPI 2020) 38.05 Glucose 124 H Calcium 9.9 Magnesium 1.8 Total Bilirubin 1.3 H AST 30 ALT 24 Alkaline Phosphatase 128 H Total Protein 6.8 Albumin 3.2 L Lipase 52 Last Vital Signs Temp 36.7 C 02/26/25 18:07 Pulse 75 02/26/25 18:07 Resp 16 02/26/25 18:07 BP 151/51 H 02/26/25 18:07 Pulse Ox 98 02/26/25 18:07 Time Spent Time spent with Patient: 40-54 minutes Time was spent: preparing to see the patient(eg.review tests), obtaining and/or reviewing separately otained hiistory, ordering medications,tests, procedures, referring, communicating with other health acute care physician, indepentently interpreting results and counseling the patient
--- NOTE | 2025-02-26 21:14 | DI.VRAD_ITS ---
PROCEDURE INFORMATION: Exam: XR Chest Exam date and time: 02/26/2025 8:52 PM Age: 80 years old Clinical indication: Device placement; Ng tube; Additional info: Ng tube placement TECHNIQUE: Imaging protocol: Radiologic exam of the chest. Views: 1 view. COMPARISON: CR XR PORTABLE CHEST AP 12/17/2024 5:48 PM FINDINGS: Tubes, catheters and devices: NG tube tip at the body of the stomach. Lungs: Mild diffuse interstitial prominence and/or edema. Pleural spaces: Unremarkable. No pleural effusion. No pneumothorax. Heart/Mediastinum: Mild cardiomegaly. Bones/joints: Unremarkable. IMPRESSION: 1. NG tube tip at the body of the stomach. 2. Mild diffuse interstitial prominence and/or edema. Dictated and Authenticated by: Phoenix Jim MD. Orderin Yuni Brown MD
[2025-02-26 21:36] LABS: Bilirubin Negative (Negative); Blood Small (Negative); Clarity Clear (Clear); Glucose 500 mg/dL (Negative); Ketones Negative (Negative); Leukocyte Esterase Small (Negative); Nitrite Negative (Negative); Specific Gravity <= 1.005 (1.005-1.025); Urobilinogen 0.2 mg/dL (Up to 0.2); pH 5.5 (5-8)
[2025-02-26 21:47] LABS: Bacteria Few HPF (Negative); Crystals Negative HPF (Negative); Epithelial Cells Negative HPF (Negative); Mucus Negative (Negative); Other Cells Moderate Yeast (Negative)
[2025-02-26 21:48] LABS: C & S Indicated? Yes; Casts Negative LPF (Negative)
[2025-02-26 22:09] VITALS: BP 151/51; PULSE 75; RESP 16; TEMP 36.7; O2SAT 98
--- NOTE | 2025-02-26 22:41 | W.PC.ACHO ---
Registration Status: Primary Language: Preferred Language: ED Information & Data Chief Complaint Abd Prob 02/26/25 19:10 Chief Complaint Abd Prob 02/26/25 18:30 Triage Note BIBA from [facility] 02/26/25 18:07 generalized abd pain, Nausea and vomited x1 given APAP and Zofran prior to ems arrival. Medical / Surgical History (Last Reviewed 01/17/25 @ 15:22 by Oracio Ferreira MD) Chronic heart failure with reduced ejection fraction (HFrEF, <= 40%) Anemia Cirrhosis of liver without ascites Diabetes PAF (paroxysmal atrial fibrillation) Goals of care, counseling/discussion Lactic acidosis UTI (urinary tract infection) Urinary tract infection Advanced care planning/counseling discussion Palliative care encounter Bowel obstruction Sepsis Heart failure with reduced ejection fraction Hypothyroidism Small bowel obstruction Lactic acid acidosis Creatinine elevation Acute UTI Anticoagulated COVID Recurrent intestinal obstruction History of colon cancer Chronic anticoagulation Portal hypertension Cirrhosis Confusion Colon cancer Depression Endocarditis Non-insulin dependent type 2 diabetes mellitus Incontinence Hypertension Scleral icterus (Last Reviewed 01/17/25 @ 15:22 by Oracio Ferreira MD) S/P TIPS (transjugular intrahepatic portosystemic shunt) H/O left hemicolectomy Colostomy in place Most Recent Vital Signs Temperature 36.7 C 02/26/25 22:09 Temperature Source Tympanic 02/26/25 18:07 Pulse 75 02/26/25 22:09 Respiratory Rate 16 02/26/25 22:09 Blood Pressure 151/51 H 02/26/25 22:09 Pulse Oximetry 98 02/26/25 22:09 Oxygen Delivery Method Room Air 02/26/25 18:07 Oxygen Flow Rate 0 02/26/25 18:07 Allergies Penicillins Allergy (Mild, Verified 02/26/25 18:11) Itching morphine Adverse Reaction (Severe, Verified 02/26/25 18:11) vomiting Precautions Isolation Standard precaution 02/26/25 19:10 Active Medications Generic Name Dose Route Start Last Admin Trade Name Freq PRN Reason Stop Dose Admin Iohexol 100 ml 02/26/25 19:00 02/26/25 18:55 Omnipaque 350 Mg/Ml 100 Ml Btl IJ 03/28/25 23:59 100 ml DIRECTED MAN Administration Lidocaine HCl 5 ml 02/26/25 21:00 02/26/25 20:28 Lidocaine 2% Viscous 1 Ml Solution PO 5 ml DIRECTED MAN Administration Sodium Chloride 50 ml 02/26/25 19:00 02/26/25 18:57 Normal Saline - Diluent 50 Ml Vial IJ 50 ml .FOR DI USE MAN Administration IV IV Catheter Type [Left Peripheral IV Antecubital] IV Catheter Gauge [Left 18 Antecubital] Diet Orders Category Date Time Status Nothing Per Oral [DIET] Nutrition 02/27/25 Breakfast Ordered Diagnostics 02/26/25 02/26/25 Range/Units 21:29 19:00 WBC 5.12 (4.4-10.8) 10^3/uL RBC 3.90 L (4.36-5.78) 10^6/uL Hgb 10.7 L (13.5-17.5) g/dL Hct 34.4 L (40.0-50.0) % MCV 88 (80-95) fL MCH 27.4 (27.0-33.0) pg MCHC 31.1 L (32.0-36.0) % RDW 14.8 H (11.8-14.1) % Plt Count 75 L (130-400) 10^3/uL MPV 11.0 (8.0-11.0) fL Immature Gran % 0.2 % Neutrophils % 82.0 % Lymphocytes % 7.2 % Monocytes % 5.5 % Eosinophils % 4.7 % Basophils % 0.4 % Nucleated RBC % 0.0 (0.0-0.3) % Absolute Neutrophils 4.20 (1.2-6.7) 10^3/uL Absolute Lymphocytes 0.37 L (1.2-3.4) 10^3/uL Absolute Monocytes 0.28 (0.1-0.8) 10^3/uL Absolute Eosinophils 0.24 (0.0-0.7) 10^3/uL Absolute Basophils 0.02 (0.0-0.2) 10^3/uL PT 12.4 H (9.1-11.1) sec INR 1.2 H (0.9-1.1) APTT 27.0 (20.6-30.2) sec Sodium 143 (136-145) mmol/L Potassium 4.9 (3.5-5.1) mmol/L Chloride 107 (98-107) mmol/L Carbon Dioxide 25.4 (21.0-32.0) mmol/L Anion Gap 10.6 (3-11) mmol/L BUN 28 H (7-18) mg/dL Creatinine 1.8 H (0.70-1.30) mg/dL Est GFR (CKD-EPI 2020) 38.05 (mL/min/1.73m2) Glucose 124 H (74-106) mg/dL Calcium 9.9 (8.5-10.1) mg/dL Magnesium 1.8 (1.8-2.4) mg/dL Total Bilirubin 1.3 H (0.2-1.0) mg/dL AST 30 (15-37) U/L ALT 24 (16-63) U/L Alkaline Phosphatase 128 H (46-116) U/L Total Protein 6.8 (6.4-8.2) g/dL Albumin 3.2 L (3.4-5.0) g/dL Lipase 52 (<78) U/L Urine Color Yellow (Yellow) Urine Clarity Clear (Clear) Urine pH 5.5 (5-8) Ur Specific [place] <= 1.005 (1.005-1.025) Urine Protein Negative (Neg-Trace) mg/dL Urine Ketones Negative (Negative) mg/dL Urine Blood Small H (Negative) Urine Nitrite Negative (Negative) Urine Bilirubin Negative (Negative) Urine Urobilinogen 0.2 (Up to 0.2) mg/dL Ur Leukocyte Esterase Small H (Negative) Urine RBC 10-20 H (0-2) HPF Urine WBC 10-20 H (0-5) HPF Ur Epithelial Cells Negative (Negative) HPF Urine Crystals Negative (Negative) HPF Urine Bacteria Few (Negative) HPF Urine Casts Negative (Negative) LPF Urine Mucus Negative (Negative) Urine Other Moderate Yeast (Negative) Ur Culture Indicated? Yes Urine Glucose 500 H (Negative) mg/dL 02/26/25 21:29 Urine Culture - Pending Urine - Reflex from Ua Intake and Output - 24 Hour Total 02/26/25 18:02 thru 02/26/25 21:03 Output Total 50 Balance -50 Weight 99.337 kg Output: Gastric Drainage 50 Left Nare 50 Other: Gastric Occult Blood Left Nare Negative Falls Risk Assessment History of Falls Previous History 02/26/25 19:09 Contributing Factors No Factors 02/26/25 19:09 Ambulatory Aids Independent 02/26/25 19:09 Tubes/Lines W/no contributing factors 02/26/25 19:09 Gait Evaluation No gait disturbance 02/26/25 19:09 Cognition No cognitive impairment 02/26/25 19:09 Fall Total Score 02/26/25 19:09 Level of Risk Moderate Risk 02/26/25 19:09 Problems (Last Reviewed 01/17/25 @ 15:22 by Oracio Ferreira MD) SBO (small bowel obstruction) (Acute) CHF (congestive heart failure) (Chronic) Chronic atrial fibrillation (Chronic) v v v v v v v v v Sending and/or Receiving Nurses: Please use comment section below to note any information pertinent to the patient hand-off not included above. Information / Comments: Report taken from [employer] TRAINEECHRISTIANNE Oliver, patient is alert and oriented x 3., came in with SBO, been vomiting at home this morning. Has colostomy w/ no output yet. NGTube on left nares inserted in ER at 77 cm in [facility]. Has bearable pain, just received dilaudid before coming up. All questions answered appropriately. Report received from:
[2025-02-26] MEDS: Normal Saline 1,000 ML 100 ML IV (22:47)
[2025-02-26 22:51] VITALS: BP 136/65; PULSE 81; RESP 18; TEMP 36.1; O2SAT 94
[2025-02-26 23:55] VITALS: BP 136/65; PULSE 81
[2025-02-26] MEDS: Metoprolol 5 MG/5 ML VIAL IVP (23:55)
[2025-02-27] VITALS (14 sets, daily range): BP systolic 132–165; BP diastolic 57–111; PULSE 62–100; RESP 14–18; TEMP 36.1–37; O2SAT 88–94
[2025-02-27] MEDS: Normal Saline Flush 10 ML SYR IVP ×3 (01:14→19:58)
[2025-02-27] MEDS: Metoprolol 5 MG/5 ML VIAL IVP ×3 (05:50→18:10)
[2025-02-27 06:21] LABS: HCT 31.2 % (40.0-50.0); HGB 9.8 g/dL (13.5-17.5); MCH 27.4 pg (27.0-33.0); MCHC 31.4 % (32.0-36.0); MCV 87 fL (80-95); MPV 11.5 fL (8.0-11.0); RBC 3.58 10^6/uL (4.36-5.78); RDW 14.9 % (11.8-14.1); RDW-SD 47.8 fL; WBC 4.96 10^3/uL (4.4-10.8)
[2025-02-27 06:47] LABS: Anion Gap 8.6 mmol/L (3-11); BUN 28 mg/dL (7-18); CO2 24.4 mmol/L (21.0-32.0); CREATININE 1.4 mg/dL (0.70-1.30); Calcium 9.6 mg/dL (8.5-10.1); Chloride 111 mmol/L (98-107); Estimated GFR 51.45 (mL/min/1.73m2); Glucose 105 mg/dL (74-106); Potassium 4.1 mmol/L (3.5-5.1); Sodium 144 mmol/L (136-145)
[2025-02-27 07:05] LABS: Platelet Count 66 10^3/uL (130-400)
[2025-02-27] MEDS: Lidocaine 5% Patch 1 PATCH TP (07:54)
[2025-02-27] MEDS: Normal Saline 1,000 ML 100 ML IV ×2 (07:54→17:48)
--- NOTE | 2025-02-27 08:16 | PDOC.CMIN ---
Date of service: 02/27/25 Time of Service: 08:16 Care Management Initial Assmt Initial Assessment Reason for Hospitalization: SBO Functional Status/Living Situation Patient Presentation: Osmar was awake and lying in bed and is talking on the phone with his when CM met with him. He is pleasant and easy to engage in conversation. He is here with a small bowel obstruction which he says he gets all the time. He has a NG tube and says he feels better overall. Osmar shared with CM that he's been incontinent of urine lately which he says has only happened one other time when he had something wrong with his prostrate. He has a urine culture pending. Surgical is consulted. CM will follow. Town of Residence: [place], [place] Resides with: Spouse ( Cely and son Scott) Significant Other/Family: Out of area (Relatives in [facility]) Natural Supports: Family [place] Employment Status: Retired Instrumental Activities of Daily Living (ADLs): Requires support Medications Medication Management: No Issues/Barriers identified Physical Functioning/Mobility Assistive Device: Walker Advance Directives Advance Directives: Do you have an Advance Directive: Y 08/05/24 02:24 AD On File at [facility]: N 08/05/24 10:22 Date Asked 02/11/25 02/11/25 12:24 AD Date Reviewed COLST On File at [facility] No 12/04/23 16:58 COLST Date Scanned Code Status Resuscitation Status Full Code Portal Pt does not currently have a portal and education provided: Yes Insurance Coverage/Financial Issues Insurance: [place] Care Team Visit Care Team Role Provider Type Osmar Blancas MD MD [facility] STAFF PHYSICIAN Maryann Whitt Primary Care Provider NURSE PRACTITIONER Kevin Morrissey MD Emergency Provider [facility] STAFF PHYSICIAN Cody Bell MD Admit Provider [facility] STAFF PHYSICIAN Attending Provider Discharge Potential Discharge Needs: PCP F/U Appt and Surgical F/U Appt Anticipated Barriers to Discharge: None Identified Patient/Family Education Needs: Review discharge instructions, discuss Ask Me Three Transportation: Private vehicle Plan: Osmar is admitted for a SBO. Anticipate, Merrill will be discharged home when medically cleared, with resumption of [facility] services (CM will verify current services on Friday.) He will follow up with community providers and his discharge plan of care as directed and transport with family. CM will follow and continue to assess for discharge needs. Social Determinants of Health Screening Social Determinants of health last assessed in clinic: 02/27/25 Will the Patient Participate in the Screening?: Yes Do you worry about having a steady place to live?: yes What is your living situation today?: I have housing today, but am worried about losing it Problems where you live: no known problems In the past 12 months, have you had to go without electric, gas, oil or water in your home?: no 1. Within the past 12 months, we worried whether our food would run out before we got money to buy more.: Never true 2. Within the past 12 months, the food we bought just didn't last and we didn't have money to get more.: Never true Has lack of transportation kept you from medical appointments or from doing things needed for daily living?: no Has anyone in your life made you feel unsafe or unsupported?: no How hard is it for you to pay for the very basics like food, housing, medical care, and heating? Would you say it is:: Not hard at all Do you want help finding or keeping work or a job?: I do not need or want help If for any reason you need help with day-to-day activities such as bathing, preparing meals, shopping, managing finances, etc., do you get the help you need?: I get all the help I need How often do you feel lonely or isolated from those around you?: Never Do you speak a language other than Salvadorean at home?: Yes Does the patient want assistance with any of the above?: Yes Comments: patient stated of not going [facility], His will discuss w/ . Health Related Social Needs Health related social needs: housing instability, housed, with risk of homelessness (Z59.811) and education (Z55.6) Health related social needs details: Not satisfied at [facility] All Active Problems (Updated 02/27/25 @ 09:59 by Osmar Blancas MD) Splenomegaly (Acute) Liver mass (Acute) SBO (small bowel obstruction) (Acute) Vomiting (Acute) Abdominal pain (Acute) Elevated lactic acid level (Acute) Acute UTI (Acute) Symptomatic bradycardia (Acute) Acute hypokalemia (Acute) Family conflict (Acute) Chest pain in adult (Acute) Fall (Acute) Thrombocytopenia (Chronic) Colostomy care (Acute) Chronic low back pain (Chronic) Hematuria (Acute) Elevated troponin level not due myocardial infarction (Acute) Leukopenia (Acute) Oral candidiasis (Acute) Sepsis syndrome (Acute) Gram-negative bacteremia (Acute) Cellulitis (Acute) Lower urinary obstructive symptom (Acute) Anemia of chronic disease (Acute) Thrombocytopenia (Chronic) Ventricular ectopy (Acute) Sinus bradycardia (Acute) Leukocytosis (Acute) Hypertension (Chronic) Elevated lactic acid level (Acute) CHF (congestive heart failure) (Chronic) No-show for appointment (Acute) Left rotator cuff tear (Acute) Acute UTI (urinary tract infection) (Acute) Weakness (Acute) Non-ST elevation [place] (NSTEMI) (Acute) Pre-syncope (Acute) Frequent falls (Acute) Orthostatic hypotension (Acute) Chronic atrial fibrillation (Chronic) Type 2 diabetes mellitus (Chronic) Hypokalemia (Acute) Bradycardia (Acute) Multiple falls (Acute) Acute metabolic encephalopathy (Acute) Medication monitoring encounter (Acute) ANETTE (obstructive sleep apnea) (Chronic) Chest pain (Acute) CHF exacerbation (Acute) CHF (congestive heart failure) (Chronic) EF 25%- 2023 Medical History Goals of care, counseling/discussion Lactic acidosis UTI (urinary tract infection) Urinary tract infection Advanced care planning/counseling discussion Palliative care encounter Followed by [facility] Bowel obstruction Sepsis Heart failure with reduced ejection fraction Hypothyroidism Small bowel obstruction Lactic acid acidosis Creatinine elevation Acute UTI Anticoagulated COVID Recurrent intestinal obstruction History of colon cancer Chronic anticoagulation Portal hypertension Cirrhosis TIPs placed (?when[place] [facility] 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, Dx [facility] as per pt Non-insulin dependent type 2 diabetes mellitus Incontinence Hypertension Scleral icterus Surgical History S/P TIPS (transjugular intrahepatic portosystemic shunt) H/O left hemicolectomy Colostomy in place Social History Smoking/Tobacco Use Status: Former Tobacco Use Smoking risk assessment performed?: Yes Alcohol Intake: former Drug use: Never Substance use type: does not use Housing: halfway Do you feel safe at home: Yes Do you feel safe in your relationship?: Yes Additional [facility]
[2025-02-27 08:54] LABS: COVID-19 PCR Negative (Negative); Influenza A PCR Negative (Negative); Influenza B PCR Negative (Negative); RSV PCR Negative (Negative)
[2025-02-27 08:55] LABS: Source Nasopharynx
--- NOTE | 2025-02-27 09:30 | RT.EKG_ITS ---
APPROVED REPORT Exam: Resting ECG Reason for Exam: 10 beat VTACH Patient Location: I HR:76 bpm ECG Measurements Heart Rate 76 AXIS WA 319 P 0 QRSd 104 QRS 32 QT 367 T 246 QTc 413 Conclusion Sinus rhythm...normal P axis, V-rate 50- 99 Prolonged WA interval...WA >220, V-rate 50- 90 Anteroseptal infarct, old...Q >40mS, V1-V2 Repol abnrm suggests ischemia, diffuse leads...ST-T neg, ant/lat/inf Artifact in lead(s) I,II,III,aVR,aVF,V1,V2,V3,V4,V5,V6
--- NOTE | 2025-02-27 09:42 | PGE_ITS ---
Date of Service Date of service: 02/27/25 Time of Service: 09:42 Assessment and Plan Assessment and plan (1) SBO (small bowel obstruction): Status: Acute Assessment and plan: The patient comes in w/ acute onset of abdominal pain w/ no BM or flatus in the past 24 hours and a history of recurrent intestinal obstruction. His CT shows mild dilated loops of bowel. On exam he already has NG tube placed for decompression. Will recommend we continue w/ NPO, IVF, NG tube decompression and re-evaluate his symptoms in the morning. Monitor for any flatus or ostomy output -NPO, IVF, NG decompression -Monitor for any flatus or ostomy output 02/27/25 Pt does appear to be improving in regards to symptomology. Would favor fairly aggressive treatment. Will d/w NS feasibility of crushing meds. Pt does have significant CHF and will need medication as soon as possible (2) CHF (congestive heart failure): Status: Chronic Assessment and plan: -Hold all oral meds as he is NPO w/ NG tube decompression (3) Chronic atrial fibrillation: Status: Chronic Assessment and plan: -Hold off on oral Rx due to SBO and NG tube decompression -IV Metoprolol -Hold on oral Eliquis. If no improvement in SBO tomorrow then we can do SQ anticoagulation 02/27/35 Anticoagulation somewhat problematic in light of pt's platelet count (66). Does not appear to be an absolute contraindication but does appear to be relative. In reviewing literature UTD, there does not appear to be a clear answer. Would consider watchmans procedure but will defer to the outpatient setting (4) Hypothyroidism: Assessment and plan: -Hold off on Levothyroxine 100mcg daily (5) Liver mass: Status: Acute Assessment and plan: In reviewing old records and images, there is mention of a liver mass. This will need to be worked up in the outpatient setting at the discretion of the PCP. Abd USN 01/18/25 1. Two findings in the liver as described above. The subcapsular finding in the right hepatic lobe which measures 1.6 x 1.2 cm and which corresponds to the finding on the recent CT scan does not exhibit typical hyperechoic appearance of a benign hemangioma. There is a possibly that this is an atypical hemangioma or complicated cyst. Cannot exclude more concerning pathology in this cirrhotic liver. There is no ascites.. 2. Other finding in the liver is a septated cyst in the left hepatic lobe measuring 13 x 9 mm. 3. There is a TIPS stent again noted and this is not occluded Gallbladder polyps without evidence of acute cholecystitis. Splenomegaly again note (6) Splenomegaly: Status: Acute Assessment and plan: Noted on old radiographs. Certainly contributing to his low plts Subjective Subjective Interval history since last seen: PT states that he feels much better. Pt is not having any abdominal pain at this time Exam Narrative Exam Narrative: HEENT-NCAT NG IN PLACE NECK-NO LAD NO JVD CV-RRR NO MRG LUNGS-CTAB NO AMU ABD-COLOSTOMY APPLIANCE IN PLACE EXT-NO CCE BILAT [id number] INTACT TESTED Const General: cooperative and no acute distress Nutritional Appearance: average body habitus Orientation: alert, awake and oriented x3 HENMT Head: normal to inspection Ears: external ears normal General nose exam: external nose normal Face and sinus: normal facial exam Eyes General: appearance normal, both eyes and all related structures Neck Neck: normal visual inspection Resp Effort & Inspection: normal respiratory effort Auscultation: clear to auscultation bilaterally Cardio Rate: regular rate Rhythm: regular rhythm Heart Sounds: S1 normal and S2 normal GI Inspection: normal to inspection Palpation: soft Auscultation: normal bowel sounds Other: LLQ Ostomy Normal BS NG tube in place Skin General skin exam: no rashes or lesions noted Extrem General: normal to inspection Objective Last Vital Signs Temp 36.4 C L 02/27/25 07:16 Pulse 73 02/27/25 07:16 Resp 15 02/27/25 07:16 BP 160/72 H 02/27/25 07:16 Pulse Ox 94 02/27/25 05:44 Laboratory Results - last 24 hr 02/26/25 02/26/25 02/27/25 19:00 21:29 05:40 WBC 5.12 4.96 RBC 3.90 L 3.58 L Hgb 10.7 L 9.8 L Hct 34.4 L 31.2 L MCV 88 87 MCH 27.4 27.4 MCHC 31.1 L 31.4 L RDW 14.8 H 14.9 H Plt Count 75 L 66 L MPV 11.0 11.5 H Immature Gran % 0.2 Neutrophils % 82.0 Lymphocytes % 7.2 Monocytes % 5.5 Eosinophils % 4.7 Basophils % 0.4 Nucleated RBC % 0.0 Absolute Neutrophils 4.20 Absolute Lymphocytes 0.37 L Absolute Monocytes 0.28 Absolute Eosinophils 0.24 Absolute Basophils 0.02 PT 12.4 H INR 1.2 H APTT 27.0 Sodium 143 144 Potassium 4.9 4.1 Chloride 107 111 H Carbon Dioxide 25.4 24.4 Anion Gap 10.6 8.6 BUN 28 H 28 H Creatinine 1.8 H 1.4 H Est GFR (CKD-EPI 2020) 38.05 51.45 Glucose 124 H 105 Calcium 9.9 9.6 Magnesium 1.8 Total Bilirubin 1.3 H AST 30 ALT 24 Alkaline Phosphatase 128 H Total Protein 6.8 Albumin 3.2 L Lipase 52 Urine Color Yellow Urine Clarity Clear Urine pH 5.5 Ur Specific [place] <= 1.005 Urine Protein Negative Urine Ketones Negative Urine Blood Small H Urine Nitrite Negative Urine Bilirubin Negative Urine Urobilinogen 0.2 Ur Leukocyte Esterase Small H Urine RBC 10-20 H Urine WBC 10-20 H Ur Epithelial Cells Negative Urine Crystals Negative Urine Bacteria Few Urine Casts Negative Urine Mucus Negative Urine Other Moderate Yeast Ur Culture Indicated? Yes Urine Glucose 500 H COVID-19 Source SARS-CoV-2 (PCR) Influenza Type A (PCR) Influenza Type B (PCR) RSV (PCR) 02/27/25 07:52 WBC RBC Hgb Hct MCV MCH MCHC RDW Plt Count MPV Immature Gran % Neutrophils % Lymphocytes % Monocytes % Eosinophils % Basophils % Nucleated RBC % Absolute Neutrophils Absolute Lymphocytes Absolute Monocytes Absolute Eosinophils Absolute Basophils PT INR APTT Sodium Potassium Chloride Carbon Dioxide Anion Gap BUN Creatinine Est GFR (CKD-EPI 2020) Glucose Calcium Magnesium Total Bilirubin AST ALT Alkaline Phosphatase Total Protein Albumin Lipase Urine Color Urine Clarity Urine pH Ur Specific [place] Urine Protein Urine Ketones Urine Blood Urine Nitrite Urine Bilirubin Urine Urobilinogen Ur Leukocyte Esterase Urine RBC Urine WBC Ur Epithelial Cells Urine Crystals Urine Bacteria Urine Casts Urine Mucus Urine Other Ur Culture Indicated? Urine Glucose COVID-19 Source Nasopharynx SARS-CoV-2 (PCR) Negative Influenza Type A (PCR) Negative Influenza Type B (PCR) Negative RSV (PCR) Negative Time Spent with Patient Time Spent with Patient: 35-49 minutes Time was spent: preparing to see the patient(eg.review tests), obtaining and/or reviewing separately otained hiistory, ordering medications,tests, procedures, referring, communicating with other health intensive care unit registered nurse, indepentently interpreting results, counseling the patient and care coordination
--- NOTE | 2025-02-27 15:26 | W.PM.PROGNOT ---
Date of Service Date of service: 02/27/25 Time of Service: 15:26 Assessment and Plan Assessment and plan (1) SBO (small bowel obstruction): Status: Acute Assessment and plan: 80 yo man with chronic SBOs. Responding well to NGT decompression. NGT output is not bilious, but XR shows in good position and he is feeling better . . . but no ostomy output yet. Recommend: Gastrografin via NGT tonight. XR in the morning. Continued NGT decompression 4 hours after the gastrografin is put in. Initiate transfer efforts in 48 hours if he doesn't open up. Subjective Subjective Interval history since last seen: No complaints. No colostomy output yet. Denies any significant abdominal pain. Denies any tertiary followup for elective surgical consideration. Says the last time he went, they took all my intestines out, put them back in, and I've had problems ever since. Exam Narrative Exam Narrative: Gen: Nontoxic, comfortable and interactive Neuro: AxOx3 Psych: Good mood and affect. Good insight. Abdomen: soft, mild distention, no tenderness, no colostomy output. NGT has scant gastric contents in it. Objective Last Vital Signs Temp 97.7 F 02/27/25 15:16 Pulse 68 02/27/25 15:16 Resp 14 02/27/25 15:16 BP 148/85 H 02/27/25 15:16 Pulse Ox 93 02/27/25 15:16 Laboratory Results - last 24 hr 02/26/25 02/26/25 02/27/25 19:00 21:29 05:40 WBC 5.12 4.96 RBC 3.90 L 3.58 L Hgb 10.7 L 9.8 L Hct 34.4 L 31.2 L MCV 88 87 MCH 27.4 27.4 MCHC 31.1 L 31.4 L RDW 14.8 H 14.9 H Plt Count 75 L 66 L MPV 11.0 11.5 H Immature Gran % 0.2 Neutrophils % 82.0 Lymphocytes % 7.2 Monocytes % 5.5 Eosinophils % 4.7 Basophils % 0.4 Nucleated RBC % 0.0 Absolute Neutrophils 4.20 Absolute Lymphocytes 0.37 L Absolute Monocytes 0.28 Absolute Eosinophils 0.24 Absolute Basophils 0.02 PT 12.4 H INR 1.2 H APTT 27.0 Sodium 143 144 Potassium 4.9 4.1 Chloride 107 111 H Carbon Dioxide 25.4 24.4 Anion Gap 10.6 8.6 BUN 28 H 28 H Creatinine 1.8 H 1.4 H Est GFR (CKD-EPI 2020) 38.05 51.45 Glucose 124 H 105 Calcium 9.9 9.6 Magnesium 1.8 Total Bilirubin 1.3 H AST 30 ALT 24 Alkaline Phosphatase 128 H Total Protein 6.8 Albumin 3.2 L Lipase 52 Urine Color Yellow Urine Clarity Clear Urine pH 5.5 Ur Specific [place] <= 1.005 Urine Protein Negative Urine Ketones Negative Urine Blood Small H Urine Nitrite Negative Urine Bilirubin Negative Urine Urobilinogen 0.2 Ur Leukocyte Esterase Small H Urine RBC 10-20 H Urine WBC 10-20 H Ur Epithelial Cells Negative Urine Crystals Negative Urine Bacteria Few Urine Casts Negative Urine Mucus Negative Urine Other Moderate Yeast Ur Culture Indicated? Yes Urine Glucose 500 H COVID-19 Source SARS-CoV-2 (PCR) Influenza Type A (PCR) Influenza Type B (PCR) RSV (PCR) 02/27/25 07:52 WBC RBC Hgb Hct MCV MCH MCHC RDW Plt Count MPV Immature Gran % Neutrophils % Lymphocytes % Monocytes % Eosinophils % Basophils % Nucleated RBC % Absolute Neutrophils Absolute Lymphocytes Absolute Monocytes Absolute Eosinophils Absolute Basophils PT INR APTT Sodium Potassium Chloride Carbon Dioxide Anion Gap BUN Creatinine Est GFR (CKD-EPI 2020) Glucose Calcium Magnesium Total Bilirubin AST ALT Alkaline Phosphatase Total Protein Albumin Lipase Urine Color Urine Clarity Urine pH Ur Specific [place] Urine Protein Urine Ketones Urine Blood Urine Nitrite Urine Bilirubin Urine Urobilinogen Ur Leukocyte Esterase Urine RBC Urine WBC Ur Epithelial Cells Urine Crystals Urine Bacteria Urine Casts Urine Mucus Urine Other Ur Culture Indicated? Urine Glucose COVID-19 Source Nasopharynx SARS-CoV-2 (PCR) Negative Influenza Type A (PCR) Negative Influenza Type B (PCR) Negative RSV (PCR) Negative Time Spent with Patient Time Spent with Patient: <25 minutes Time was spent: preparing to see the patient(eg.review tests), obtaining and/or reviewing separately otained hiistory, ordering medications,tests, procedures, referring, communicating with other health special needs child caregiver, indepentently interpreting results, counseling the patient and care coordination
[2025-02-27] MEDS: Gastrografin 120 ML BTL PO (17:35)
[2025-02-27] MEDS: Furosemide 20 MG/2 ML VIAL IVP (20:00)
[2025-02-27] MEDS: Lidocaine Patch Removal 1 EACH TP (20:35)
[2025-02-28] VITALS (13 sets, daily range): BP systolic 94–159; BP diastolic 46–117; PULSE 55–80; RESP 16–20; TEMP 36.5–36.9; O2SAT 88–95
[2025-02-28] MEDS: Metoprolol 5 MG/5 ML VIAL IVP ×4 (00:05→18:00)
[2025-02-28] MEDS: Normal Saline Flush 10 ML SYR IVP ×3 (00:06→19:49)
[2025-02-28] MEDS: Normal Saline 1,000 ML 100 ML IV (05:04)
--- NOTE | 2025-02-28 05:15 | NUR.NOTE ---
Nursing Note: Patient was restless on bed, found him pulling call lights and also collier tubing already with blood, patient tried to pull it out too. NGtube pushed back , it was on 55cm . checked for placement and back to 70cm in length. in LCWS, draining brownish color secretions. Repositioned on bed on semi short's. Patient stated not to insert anymore collier, instructed to use urinal if going to void.Colostomy device remains intact. MD notified and collier discontinued.
[2025-02-28 06:26] LABS: Abs Immature Grans 0.02 10^3/uL (0.0-0.06); Absolute Basophil Count 0.05 10^3/uL (0.0-0.2); Absolute Eosinophil Count 0.61 10^3/uL (0.0-0.7); Absolute Lymphocyte Count 0.83 10^3/uL (1.2-3.4); Absolute Monocyte Count 0.77 10^3/uL (0.1-0.8); Absolute Neutrophil Count 5.87 10^3/uL (1.2-6.7); Basophils % 0.6 %; Eosinophils % 7.5 %; HCT 34.5 % (40.0-50.0); HGB 10.7 g/dL (13.5-17.5); Immature Grans % 0.2 %; Lymphocytes % 10.2 %; MCV 87 fL (80-95); MPV 10.4 fL (8.0-11.0); Monocytes % 9.4 %; Neutrophils % 72.1 %; Platelet Count 101 10^3/uL (130-400); RBC 3.96 10^6/uL (4.36-5.78); RDW 15.1 % (11.8-14.1); RDW-SD 48.3 fL; WBC 8.15 10^3/uL (4.4-10.8)
[2025-02-28 06:55] LABS: ALT 18 U/L (16-63); AST 29 U/L (15-37); Albumin 2.9 g/dL (3.4-5.0); Alkaline Phosphatase 116 U/L (46-116); Anion Gap 12.2 mmol/L (3-11); BUN 23 mg/dL (7-18); Bilirubin, Total 2.1 mg/dL (0.2-1.0); CO2 23.8 mmol/L (21.0-32.0); CREATININE 1.4 mg/dL (0.70-1.30); Calcium 9.4 mg/dL (8.5-10.1); Chloride 113 mmol/L (98-107); Estimated GFR 51.45 (mL/min/1.73m2); Glucose 130 mg/dL (74-106); Potassium 3.6 mmol/L (3.5-5.1); Sodium 149 mmol/L (136-145); Total Protein 6.1 g/dL (6.4-8.2)
--- NOTE | 2025-02-28 08:00 | DI.RAD_ITS ---
Exam(s) XR ABDOMEN FLAT PLATE EXAM: XR ABDOMEN FLAT PLATE CLINICAL HISTORY: assess for contrast to colostomy. TECHNIQUE: 2D digital imaging was performed. COMPARISON: CR XR ABDOMEN FLAT PLATE from 05/12/[address] ABDOMEN PELVIS W from 02/26/2025 FINDINGS: AP supine view the pelvis: There is an NG tube in the stomach along the greater curvature in satisfactory position. The stomach is not distended. There is a TIPS stent in the liver again noted. All the oral contrast is now located in the large bowel and is reaching the colostomy in the left low er quadrant. There is no obvious remaining contrast in the small bowel loops and there are no grossl y dilated small bowel loops evident. IMPRESSION: All of the oral contrast is now in the colon. DATA REPOSITORY: RADIATION DOSE DELIVERED:
[2025-02-28] MEDS: Lidocaine 5% Patch 1 PATCH TP (09:14)
--- NOTE | 2025-02-28 09:17 | W.PM.PROGNOT ---
Date of Service Date of service: 02/28/25 Time of Service: 09:18 Assessment and Plan Assessment and plan (1) SBO (small bowel obstruction): Status: Acute Assessment and plan: 80-year-old man with chronic small bowel obstructions. This one seems to be resolving as well. His abdomen is benign. The NG tube output is almost nil. The x-rays are objectively reassuring and he is having a small amount of output from his ostomy now. Lastly, he has no subjective complaints. Overall recommendations: Remove NG tube Trial clear liquids Advance diet as tolerated Discharge home/back to facility when tolerating p.o. Once again: Recommend that he see outpatient surgical consultation at a tertiary center for follow-up Surgery signing off Subjective Subjective Interval history since last seen: Patient denies abdominal pain. There has been a small amount of output in the ostomy. X-rays show contrast in the colon up to the ostomy. NG tube output scant and mostly clear/gastric. Exam Narrative Exam Narrative: Gen: Non-toxic, comfortable and interactive Neuro: Alert and oriented x3 Psych: Good mood and affect. Good insight and understanding into condition. Chest: Non-labored breathing, no wheezing, no visible shortness of breath. Heart: Regular Abdomen: Soft, nondistended and nontender. Ostomy has some scant output in it. Objective Last Vital Signs Temp 98.4 F 02/28/25 08:11 Pulse 56 L 02/28/25 08:11 Resp 20 02/28/25 08:11 BP 157/72 H 02/28/25 08:11 Pulse Ox 95 02/28/25 08:11 Laboratory Results - last 24 hr 02/28/25 05:50 WBC 8.15 RBC 3.96 L Hgb 10.7 L Hct 34.5 L MCV 87 MCH 27.0 MCHC 31.0 L RDW 15.1 H Plt Count 101 L D MPV 10.4 Immature Gran % 0.2 Neutrophils % 72.1 Lymphocytes % 10.2 Monocytes % 9.4 Eosinophils % 7.5 Basophils % 0.6 Nucleated RBC % 0.0 Absolute Neutrophils 5.87 Absolute Lymphocytes 0.83 L Absolute Monocytes 0.77 Absolute Eosinophils 0.61 Absolute Basophils 0.05 Sodium 149 H Potassium 3.6 Chloride 113 H Carbon Dioxide 23.8 Anion Gap 12.2 H BUN 23 H Creatinine 1.4 H Est GFR (CKD-EPI 2020) 51.45 Glucose 130 H Calcium 9.4 Total Bilirubin 2.1 H AST 29 ALT 18 Alkaline Phosphatase 116 Total Protein 6.1 L Albumin 2.9 L Time Spent with Patient Time Spent with Patient: <25 minutes Time was spent: preparing to see the patient(eg.review tests), obtaining and/or reviewing separately otained hiistory, ordering medications,tests, procedures, referring, communicating with other health director of critical care (I relayed this to the hospitalist team in person), indepentently interpreting results, counseling the patient and care coordination
--- NOTE | 2025-02-28 09:27 | PDOC.CMPRO ---
Date of service: 02/28/25 Time of Service: 09:27 Care Management Progress Note Progress Note Text Progress Note Text: Merrill was sitting up in bed when CM met with him. He was in good spirit and engaged easily with CM, known to him from previous admissions. Merrill was transferred from [facility] on Friday with abdominal pain secondary to a SBO. He has had many prior hospitalizations for this. His obstruction is resolving and his NG tube will be removed today. During the night Merrill had several runs of v-tach. He also had periods where his oxygen saturation dropped into the 80s and he was placed on oxygen, which is not his baseline. This afternoon he is no longer requiring supplemental oxygen and will be started on a clear liquid diet. Merrill shared that things have been going well at the rehab. He had been there for a couple of months late last fall and returned home in October. he continued to decline and the decision was made for him to return to [facility] for intermission coordinator care. Merrill stated that he has a really nice roommate and has been treated well by staff. CM was able to talk tp Merrill's Cely this morning and update her. Cely expressed concern about the fact that she was not notified when Merrill was transferred to [facility] either by the facility or by the hospital. She also learned that Merrill had fallen in the ED and she was not notified of that either. Discharge Potential Discharge Needs: PCP F/U Appt and Other (return to SNF) Anticipated Barriers to Discharge: None Identified Patient/Family Education Needs: Review discharge instructions, discuss Ask Me Three Transportation: Private vehicle Plan: Anticipate Merrill will be discharged back to [facility] when medically cleared. He will follow up with facility providers and plan of care and transport via RCT. CM will follow. Social Determinants of Health Screening Social Determinants of health last assessed in clinic: 02/28/25 Will the Patient Participate in the Screening?: Yes Do you worry about having a steady place to live?: yes What is your living situation today?: I have housing today, but am worried about losing it Problems where you live: no known problems In the past 12 months, have you had to go without electric, gas, oil or water in your home?: no 1. Within the past 12 months, we worried whether our food would run out before we got money to buy more.: Never true 2. Within the past 12 months, the food we bought just didn't last and we didn't have money to get more.: Never true Has lack of transportation kept you from medical appointments or from doing things needed for daily living?: no Has anyone in your life made you feel unsafe or unsupported?: no How hard is it for you to pay for the very basics like food, housing, medical care, and heating? Would you say it is:: Not hard at all Do you want help finding or keeping work or a job?: I do not need or want help If for any reason you need help with day-to-day activities such as bathing, preparing meals, shopping, managing finances, etc., do you get the help you need?: I get all the help I need How often do you feel lonely or isolated from those around you?: Never Do you speak a language other than [place] at home?: Yes Does the patient want assistance with any of the above?: Yes Comments: patient stated of not going [facility], His will discuss w/ MD. Health Related Social Needs Health related social needs: housing instability, housed, with risk of homelessness (Z59.811) and education (Z55.6) Health related social needs details: Not satisfied at [facility]
--- NOTE | 2025-02-28 12:45 | RT.EKG_ITS ---
APPROVED REPORT Exam: Resting ECG Reason for Exam: [facility] Patient Location: I HR:59 bpm ECG Measurements Heart Rate 59 AXIS UT 275 P -47 QRSd 107 QRS 23 QT 379 T [id number] QTc 376 Conclusion Sinus or ectopic atrial rhythm...P axis (-45,135) Multiform ventricular premature complexes...short R-R, variable morphology Prolonged UT interval...UT >220, V-rate 50- 90 Probable anterior infarct, age indeterminate...Q >35mS, T neg, V2-V5
--- NOTE | 2025-02-28 12:59 | W.PM.PROGNOT ---
Date of Service Date of service: 02/28/25 Time of Service: 13:00 Assessment and Plan Assessment and plan (1) SBO (small bowel obstruction): Status: Acute Assessment and plan: The patient comes in w/ acute onset of abdominal pain w/ no BM or flatus in the past 24 hours and a history of recurrent intestinal obstruction. His CT shows mild dilated loops of bowel. On exam he already has NG tube placed for decompression. Will recommend we continue w/ NPO, IVF, NG tube decompression and re-evaluate his symptoms in the morning. Monitor for any flatus or ostomy output -NPO, IVF, NG decompression -Monitor for any flatus or ostomy output 02/27/25 Pt does appear to be improving in regards to symptomology. Would favor fairly aggressive treatment. Will d/w NS feasibility of crushing meds. Pt does have significant CHF and will need medication as soon as possible 02/28/25 GS note reviewed. ng-tube removed. Advance diet as tolerated (2) CHF (congestive heart failure): Status: Chronic Assessment and plan: -Hold all oral meds as he is NPO w/ NG tube decompression 02/28/25 Restart home meds now that ng tube is removed (3) Chronic atrial fibrillation: Status: Chronic Assessment and plan: -Hold off on oral Rx due to SBO and NG tube decompression -IV Metoprolol -Hold on oral Eliquis. If no improvement in SBO tomorrow then we can do SQ anticoagulation 02/27/35 Anticoagulation somewhat problematic in light of pt's platelet count (66). Does not appear to be an absolute contraindication but does appear to be relative. In reviewing literature UTD, there does not appear to be a clear answer. Would consider watchmans procedure but will defer to the outpatient setting 02/28/25 Platelets have improved. Will restart home meds (4) Hypothyroidism: Assessment and plan: -Hold off on Levothyroxine 100mcg daily (5) Liver mass: Status: Acute Assessment and plan: In reviewing old records and images, there is mention of a liver mass. This will need to be worked up in the outpatient setting at the discretion of the PCP. Abd USN 01/18/25 1. Two findings in the liver as described above. The subcapsular finding in the right hepatic lobe which measures 1.6 x 1.2 cm and which corresponds to the finding on the recent CT scan does not exhibit typical hyperechoic appearance of a benign hemangioma. There is a possibly that this is an atypical hemangioma or complicated cyst. Cannot exclude more concerning pathology in this cirrhotic liver. There is no ascites.. 2. Other finding in the liver is a septated cyst in the left hepatic lobe measuring 13 x 9 mm. 3. There is a TIPS stent again noted and this is not occluded Gallbladder polyps without evidence of acute cholecystitis. Splenomegaly again note (6) Splenomegaly: Status: Acute Assessment and plan: Noted on old radiographs. Certainly contributing to his low plts (7) V-tach: Status: Chronic Assessment and plan: Pt noted to have a significant run of vtach. Due to his severe CHF, reaching out to Cardiology at [facility]. Pt was on iv metoprolol when this event occurred. Subjective Subjective Interval history since last seen: Pt seen and examined in his room. Pt does complain of feeling washed out. NS report a 18 beat run of vtach. Exam Narrative Exam Narrative: HEENT-NCAT NG IN PLACE at my interview this am NECK-NO LAD NO JVD CV-RRR NO MRG LUNGS-CTAB NO AMU ABD-COLOSTOMY APPLIANCE IN PLACE EXT-NO CCE BILAT [id number]-[id number] INTACT TESTED Const General: cooperative and no acute distress Nutritional Appearance: average body habitus Orientation: alert, awake and oriented x3 HENMT Head: normal to inspection Ears: external ears normal General nose exam: external nose normal Face and sinus: normal facial exam Eyes General: appearance normal, both eyes and all related structures Neck Neck: normal visual inspection Resp Effort & Inspection: normal respiratory effort Auscultation: clear to auscultation bilaterally Cardio Rate: regular rate Rhythm: regular rhythm Heart Sounds: S1 normal and S2 normal GI Inspection: normal to inspection Palpation: soft Auscultation: normal bowel sounds Other: LLQ Ostomy Normal BS NG tube in place Skin General skin exam: no rashes or lesions noted Extrem General: normal to inspection Objective Last Vital Signs Temp 36.7 C 02/28/25 11:20 Pulse 70 02/28/25 12:29 Resp 16 02/28/25 11:20 BP 158/82 H 02/28/25 12:29 Pulse Ox 94 02/28/25 11:20 Laboratory Results - last 24 hr 02/28/25 05:50 WBC 8.15 RBC 3.96 L Hgb 10.7 L Hct 34.5 L MCV 87 MCH 27.0 MCHC 31.0 L RDW 15.1 H Plt Count 101 L D MPV 10.4 Immature Gran % 0.2 Neutrophils % 72.1 Lymphocytes % 10.2 Monocytes % 9.4 Eosinophils % 7.5 Basophils % 0.6 Nucleated RBC % 0.0 Absolute Neutrophils 5.87 Absolute Lymphocytes 0.83 L Absolute Monocytes 0.77 Absolute Eosinophils 0.61 Absolute Basophils 0.05 Sodium 149 H Potassium 3.6 Chloride 113 H Carbon Dioxide 23.8 Anion Gap 12.2 H BUN 23 H Creatinine 1.4 H Est GFR (CKD-EPI 2020) 51.45 Glucose 130 H Calcium 9.4 Total Bilirubin 2.1 H AST 29 ALT 18 Alkaline Phosphatase 116 Total Protein 6.1 L Albumin 2.9 L Time Spent with Patient Time Spent with Patient: 25-34 minutes Time was spent: preparing to see the patient(eg.review tests), obtaining and/or reviewing separately otained hiistory, ordering medications,tests, procedures, referring, communicating with other health managed care liaison, indepentently interpreting results, counseling the patient and care coordination
--- NOTE | 2025-02-28 13:53 | PHA.REVIEW2 ---
Pharmacy Admission Review Admission Clinical Review Admission Pharmacy Review: Splenomegaly (Acute) Liver mass (Acute) SBO (small bowel obstruction) (Acute) Penicillins Allergy (Mild, Verified 02/26/25 18:11) Itching morphine Adverse Reaction (Severe, Verified 02/26/25 18:11) vomiting Resuscitation Status Full Code Height 5 ft 6 in Weight 96.751 kg Comments Comments/Follow Ups: Watch for EKG report results (last QTc was elevated from 02/15/25) Pharmacy Admission Review Renal Dosing Renal Dosing: BUN 23 mg/dL (7-18) H 02/28/25 05:50 Creatinine 1.4 mg/dL (0.70-1.30) H 02/28/25 05:50 Medications needing adjustments: Reviewed (CrCl 47.35 mL/min, BUN decreased from 28) List of meds needing interventions: Current medications are okay Anticoagulation Anticoagulation: Hgb 10.7 g/dL (13.5-17.5) L 02/28/25 05:50 Hct 34.5 % (40.0-50.0) L 02/28/25 05:50 Plt Count 101 10^3/uL (130-400) L D 02/28/25 05:50 INR 1.2 (0.9-1.1) H 02/26/25 19:00 Creatinine 1.4 mg/dL (0.70-1.30) H 02/28/25 05:50 DVT Prophylaxis: Reviewed (Hgb increased from 9.8, PLT count increased from 66) Medications: Apixaban (5mg PO BID) Relevant Labs Relevant Labs: Sodium 149 mmol/L (136-145) H 02/28/25 05:50 Potassium 3.6 mmol/L (3.5-5.1) 02/28/25 05:50 Chloride 113 mmol/L (98-107) H 02/28/25 05:50 Magnesium 1.8 mg/dL (1.8-2.4) 02/26/25 19:00 Electrolytes, C-Reactive P, ESR: Reviewed DM Control DM Control: Glucose 130 mg/dL (74-106) H 02/28/25 05:50 DM Control: Reviewed Insulin Dosing, Diabetic Medication: No orders currently, takes metformin at home (currently on hold) Cardiac Review Cardiac Review: Blood Pressure 158/82 1229 Blood Pressure 151/74 1213 Blood Pressure 151/74 1205 Blood Pressure 156/78 1120 Blood Pressure 157/72 0811 Blood Pressure 159/117 0548 Blood Pressure 159/117 0530 BP, HR, EF%: Reviewed (HR WNL) List meds needing interventions: Has orders for furosemide 40mg daily, losartan 50mg BID, metoprolol 5mb IVP q6h and spironolactone 12.5mg daily QTc Review QTc: Reviewed (509 from 02/15/25, EKG report pending from this admin) IV to PO Switch IV Medications: Reviewed (metoprolol - was NPO and had NGT that was removed this morning) Home Meds Home Med List reviewed: Reviewed Relevent Home Meds Not ordered & why?: metformin (on hold) Current Meds Current Medication Order Review: Intervened Comments: Discontinued gastrografin order (completed this morning) Comments Comments/Follow Ups: Watch for EKG report results (last QTc was elevated from 02/15/25)
[2025-02-28] MEDS: Lactulose 20 GM/30 ML CUP 10 GM PO ×2 (14:15→19:49)
[2025-02-28] MEDS: Losartan 50 MG TAB PO (19:48)
[2025-02-28] MEDS: Prazosin 5 MG CAP 10 MG PO (19:48)
[2025-02-28] MEDS: Potassium Chloride 20 MEQ TABCR PO (19:48)
[2025-02-28] MEDS: Magnesium Oxide 400 MG TAB PO (19:48)
[2025-02-28] MEDS: Apixaban 5 MG TAB PO (19:48)
[2025-02-28] MEDS: Rifaximin 550 MG TAB PO (19:48)
[2025-02-28] MEDS: Lidocaine Patch Removal 1 EACH TP (21:30)
[2025-03-01 00:17] VITALS: BP 94/46; PULSE 55
[2025-03-01 06:03] VITALS: BP 92/53; PULSE 47
[2025-03-01 06:04] VITALS: BP 92/53; PULSE 47
[2025-03-01 06:49] LABS: Abs Immature Grans 0.02 10^3/uL (0.0-0.06); Absolute Basophil Count 0.03 10^3/uL (0.0-0.2); Absolute Eosinophil Count 0.31 10^3/uL (0.0-0.7); Absolute Lymphocyte Count 0.94 10^3/uL (1.2-3.4); Absolute Monocyte Count 0.49 10^3/uL (0.1-0.8); Absolute Neutrophil Count 2.43 10^3/uL (1.2-6.7); Basophils % 0.7 %; Eosinophils % 7.3 %; HCT 29.6 % (40.0-50.0); HGB 9.3 g/dL (13.5-17.5); Immature Grans % 0.5 %; Lymphocytes % 22.3 %; MCH 27.2 pg (27.0-33.0); MCHC 31.4 % (32.0-36.0); MCV 87 fL (80-95); MPV 10.7 fL (8.0-11.0); Monocytes % 11.6 %; Neutrophils % 57.6 %; RBC 3.42 10^6/uL (4.36-5.78); RDW-SD 47.8 fL; WBC 4.22 10^3/uL (4.4-10.8)
[2025-03-01 07:05] LABS: ALT 13 U/L (16-63); AST 24 U/L (15-37); Albumin 2.5 g/dL (3.4-5.0); Alkaline Phosphatase 96 U/L (46-116); BUN 25 mg/dL (7-18); Bilirubin, Total 1.9 mg/dL (0.2-1.0); CREATININE 1.4 mg/dL (0.70-1.30); Calcium 8.2 mg/dL (8.5-10.1); Chloride 110 mmol/L (98-107); Estimated GFR 51.45 (mL/min/1.73m2); Glucose 130 mg/dL (74-106); Potassium 3.3 mmol/L (3.5-5.1); Sodium 145 mmol/L (136-145); Total Protein 5.3 g/dL (6.4-8.2)
[2025-03-01 07:16] LABS: Platelet Count 77 10^3/uL (130-400)
[2025-03-01 08:05] VITALS: BP 122/45; PULSE 75; RESP 15; TEMP 36.6; O2SAT 90
[2025-03-01] MEDS: Lactulose 20 GM/30 ML CUP 10 GM PO (08:19)
[2025-03-01] MEDS: Furosemide 20 MG TAB 40 MG PO (08:20)
[2025-03-01] MEDS: Venlafaxine 75 MG CAPCR PO (08:20)
[2025-03-01] MEDS: Rifaximin 550 MG TAB PO (08:20)
[2025-03-01] MEDS: Venlafaxine 150 MG CAPCR PO (08:20)
[2025-03-01] MEDS: Lidocaine 5% Patch 1 PATCH TP (08:20)
[2025-03-01] MEDS: Spironolactone 25 MG TAB 12.5 MG PO (08:21)
[2025-03-01] MEDS: Empaglifozin 25 MG TAB PO (08:22)
[2025-03-01] MEDS: Ferrous Sulfate 325 MG TAB PO (08:22)
[2025-03-01] MEDS: Pantoprazole 40 MG TABCR PO (08:22)
[2025-03-01] MEDS: Magnesium Oxide 400 MG TAB PO (08:22)
[2025-03-01] MEDS: Potassium Chloride 20 MEQ TABCR PO (08:22)
[2025-03-01] MEDS: Losartan 50 MG TAB PO (08:22)
[2025-03-01] MEDS: Apixaban 5 MG TAB PO (08:22)
[2025-03-01] MEDS: Tamsulosin 0.4 MG CAPCR PO (08:22)
[2025-03-01] MEDS: Normal Saline Flush 10 ML SYR IVP (08:28)
--- NOTE | 2025-03-01 08:34 | PDOC.CMDIS ---
Date of service: 03/01/25 Time of Service: 08:34 LACE Index Scoring Tool Questions: Length of Stay (in days): 3 Was the patient admitted via the E.D.?: Yes Comorbidities: Previous M.I., Diabetes w/o Complication, Congestive Heart Failure, Chronic Pulmonary Disease, Any Tumor and Liver or Renal Disease E.D. Visits: 5 Answers: Total Score: 15 Risk of Readmission: High Risk Care Management Discharge Plan Reason for Hospitalization: SBO Discharge Plan: Merrill will be discharged back to [facility]. He will follow up with facility providers and plan of care and transport via RCT. Patient/Family Education Needs: Review of discharge instructions, limitations, follow up plan and discuss Services Needed at Discharge: [facility] Facility SDOH Health Related Social Needs: Health related social needs housing instability, housed, with risk of homelessness (Z59.811), education (Z55.6) Health related social needs details Not satisfied at [facility] Health related social needs details: Not satisfied at [facility]
--- NOTE | 2025-03-01 11:30 | DI.US_ITS ---
APPROVED REPORT EXAM: Comprehensive 2D, Doppler, and color-flow Echocardiogram Patient Location: In-Patient Room/Bed: 206 Produce Associate: Renato Gambino RDCS (AE) Indications: CHF Other Information Technically limited study due to body habitus, inability to position patient. Conclusion Dilated left ventricle. Normal wall thickness. Ejection fraction is 35% with global hypokinesis Normal right ventricular size and function Moderately dilated left atrium. Mildly dilated right atrium Aortic valve is sclerotic and trileaflet without stenosis or regurgitation Compared to echocardiogram from January 2024, EF is improved from 25 to 35% Wall motion Left Ventricle Left ventricle is moderately dilated. Left ventricular systolic function is moderately decreased. The re is normal left ventricular wall thickness. There is global hypokinesis of the left ventricle. Ther e is no ventricular septal defect visualized. LVEF is 35%. Right Ventricle The right ventricle is normal size. The right ventricular systolic function is normal. Atria Left atrium is moderately dilated. Right atrium is mildly dilated. The interatrial septum is intact w ith no evidence for an atrial septal defect. Aortic Valve The aortic valve is sclerotic. Aortic valve is probably trileaflet. There is no aortic valvular steno sis. No aortic regurgitation is present. Mitral Valve The mitral valve is normal in structure. No evidence of mitral valve stenosis. Trace mitral regurgita tion. Tricuspid Valve The tricuspid valve is normal in structure. There is no tricuspid valve stenosis. Trace tricuspid reg urgitation. Pulmonic Valve The pulmonary valve is grossly normal in structure. There is no pulmonic valvular stenosis. There is no pulmonic valvular regurgitation. Great Vessels The aortic root is normal in size. Ascending aorta is not well visualized. Aortic arch is normal in c aliber. The IVC is normal in size. The IVC collapses <50% with inspiration. Pericardium There is no pericardial effusion. 2D Dimensions IVSD d PLAX 0.96 cm M: 0.6-1.2 LVPW d PLAX 0.95 cm M: 0.6 - 1.2 LVID d PLAX 7.62 cm M: 4.2 - 5.8 LVDs 6.39 cm M: 2.5 - 4.0 LV EF Teichholz 32.9 % FS 16.20 % LV EDV (Teich) 309.3 mL LV ESV (Teich) 207.6 mL Stroke Vol Index (Teich) 49.61 M-Mode TAPSE 2.66 cm (M/F) >1.7 Auto EF LV EDV A4C 284.4 mL LV EDV A2C 199.8 mL LV EDV BP 245.2 mL LV ESV A4C 190.1 mL LV ESV A2C 128.5 mL LV ESV BP 157.6 mL LVEF(%) A4C 33.2 % LVEF(%) A2C 35.7 % LVEF(%) BP 35.7 % LV SV A4C 94.3 ml LV SV A2C 71.3 ml LV SV BP 87.6 ml LV CO A4C 7.2 L/min LV CO A2C 4.3 L/min LV CO BP 5.8 L/min HR A4C 76.27 BPM HR A2C 60.51 BPM LV EDV Index (BP) LA Volume LA Length A4C 6.9 cm LA Length A2C 6.2 cm LA Area A4C s 25.24 cm2 LA Area A2C s 29.26 cm2 LA Vol A4C A-L 77.96 mL LA Vol A2C A-L 117.40 mL LA Vol Biplane A-L 101.3 mL LA Vol/BSA A4C A-L LA Vol/BSA A2C A-L LA Vol/BSA BP A-L 49.4 mL/m2 LA Vol A4C MOD 76.9 mL LA Vol A2C MOD 113.8 mL LA Vol BP MOD 98.8 mL RA Volume RA Area A4C 11.8 cm2 RA ESV A4C (A-L) 28.4mL RA Vol/BSA A4C A-L RA Length A4C 4.1 cm RA ESV A4C (MOD) 27.5mL LV Diastology MV E' medial 0.069 (>0.07 m/s) MV E Vmax 1.02 (0.4-1.3 m/s) MV E/E' MED 14.76 (<14) MV A Vmax 0.45 (0.4-1.3 m/s) MV E' lateral 0.092 (>0.1 m/s) E/A Ratio 2.3 MV E/E' LAT 11.04 (<14) MV E' Average 0.081 m/s MV E/E'(average) 12.63 Aortic Valve AoV Vmax 1.47 m/s LVOT Vmax 0.88 m/s AoV Peak Grad 8.6 mmHg LVOT Peak Grad 3.1 mmHg AoV VTI 0.329 m LVOT VTI 0.228 m AoV Mean Adonay. 0.92 m/s LVOT Mean Grad 2.1 mmHg AoV Mean Grad 4.1 mmHg AV Regurg Peak Gr. 8.63 mmHg Velocity Ratio 0.60 Mitral Valve MV DT 251 (160-240 msec)
--- NOTE | 2025-03-01 13:32 | DSE_ITS ---
Date of service: 03/01/25 Time of Service: 13:32 DS: Diagnosis Discharge Diagnosis (1) SBO (small bowel obstruction): Status: Acute (2) CHF (congestive heart failure): Status: Chronic (3) Chronic atrial fibrillation: Status: Chronic (4) Hypothyroidism: (5) Liver mass: Status: Acute (6) Splenomegaly: Status: Acute (7) V-tach: Status: Chronic Discharge Plan Disposition Patient Disposition: [facility]dc Facility(SNF) Condition: Good Discharge Details Reason For Visit: SBO Admit Date/Time: 02/26/25 21:33 Admit Provider: Cody Bell Attending Provider: Cody Bell Primary Care Provider: Maryann Whitt Hospital Course Hospital Course: Patient initially presented with signs and symptoms of abdominal pain nausea consistent with a small bowel obstruction. NG tube was placed in the emergency department for decompression patient had significant improvements resulting in flatus and ultimately output of his ostomy. Additionally, while the patient was admitted he was also found to have episode of NSVT for which cardiology at [facility] was consulted and recommended replacing patient's magnesium and potassium. During these episodes patient was asymptomatic., And this was likely secondary to known CHF. Given the patient's symptoms significantly improved including the frequency of his NSVT/PVCs, it was determined he was stable for discharge back to subacute rehab facility. Home Meds and New Rx's Prescriptions: New metoprolol tartrate 25 mg Tablet 25 mg PO BID Qty: 90 0RF Continued pantoprazole 40 mg Tablet,Delayed Release (Dr/Ec) 40 mg PO DAILY Eliquis 5 mg Tablet 5 mg PO BID Patient Comments: taking per pt nitroglycerin 0.4 mg Tablet, Sublingual 0.4 mg sublingual Q5 MIN PRN X3 PRNQty: 30 0RF rifaximin 550 mg Tablet 550 mg PO BID prazosin 5 mg capsule 10 mg PO QPM tamsulosin 0.4 mg Capsule 0.4 mg PO DAILY furosemide 20 mg tablet 40 mg PO DAILY metformin 500 mg tablet extended release 24hr 1,000 mg PO QPM bisacodyl [Dulcolax (bisacodyl)] 10 mg suppository 10 mg DC DAILY PRN ondansetron 4 mg tablet,disintegrating 4 mg PO Q6H PRN potassium chloride 20 mEq tablet extended release 20 meq PO DAILY spironolactone [Aldactone] 25 mg tablet 12.5 mg PO DAILY venlafaxine [Effexor XR] 75 mg capsule,extended release 24hr 75 mg PO DAILY Patient Comments: takes w/150mg capsule for total dose of 225mg daily lactulose 20 gram/30 mL Solution 10 g PO TID Rx Instructions: to maintain colostomy output of 3-4 bags per day empagliflozin 25 mg Tablet 25 mg PO DAILY levothyroxine 200 mcg Tablet 100 mcg PO QAM Qty: 0 0RF losartan 50 mg tablet 50 mg PO BID venlafaxine 150 mg capsule,extended release 24hr 150 mg PO DAILY acetaminophen [Tylenol] 325 mg Capsule 650 mg PO Q6H MDD 3000 PRN Discontinued lidocaine [Lidoderm] 5 % adhesive patch,medicated 1 patch topical DAILY Rx Instructions: leave on most painful area for up to 12 hrs ferrous sulfate 325 mg (65 mg iron) Tablet 325 mg PO DAILY Discharge Instructions Activity:: Activity as Tolerated Equipment/Supplies:: No Equipment Needed Diet:: As Tolerated Discharge Orders Discharge Orders: Discharge Order (Routine); Ordered 03/01/25 Ordered By: Jimenez Payne DS: Summary Time Spent with Patient providing and/or coordinating discharge services: Greater than 30 minutes Status at Discharge Functional status at discharge: independent ambulation Overall status at discharge: patient is back to baseline Mental Status: mental status grossly normal Speech and Movement: speech and movement normal Mood: congruent mood Affect: normal affect Quality:SDOH Health Related Social Needs: Health related social needs housing instability, house d, with risk of homelessness (Z59.811), education (Z55.6) Health related social needs details Not satisfied at [facility] Health related social needs details: Not satisfied at [facility]. Exam Narrative Exam Narrative: Fatigued but well-appearing older gentleman sitting in the chair no acute distress, ANO x 4, heart irregularly irregular with rates in the 70s, lungs clear auscultation bilaterally, abdomen soft, nontender, nondistended with good ostomy output Psych Mental Status: mental status grossly normal Speech and Movement: speech and movement normal Mood: congruent mood Affect: normal affect DS: Data Vitals/I&O Vitals and I&O: Vital Signs Temperature 97.9 F 03/01/25 08:05 Temperature Source Temporal Artery Scan 03/01/25 08:05 Pulse 75 03/01/25 08:05 Pulse Rhythm Regular 02/26/25 22:51 Respiratory Rate 15 03/01/25 08:05 Respiratory Effort Normal 02/26/25 22:51 Blood Pressure 122/45 L 03/01/25 08:05 Blood Pressure Mean 70 03/01/25 08:05 Pulse Oximetry 90 L 03/01/25 08:05 Oxygen Delivery Method Nasal Cannula 03/01/25 08:05 Oxygen Flow Rate 2 03/01/25 08:05 Pain Level 0 02/28/25 23:12 Comment pt refused vitals 03/01/25 03:35 Intake & Output 02/28/25 03/01/25 03/01/25 17:59 05:59 17:59 Intake Total 1768.333 / 1768.333 540 / 2308.333 220 / 220 Output Total 1715 / 1715 150 / 1865 200 / 200 Balance 53.333 / 53.333 390 / 443.333 20 / 20 Intake: IV 918.333 / 918.333 10 / 928.333 Oral 850 / 850 530 / 1380 220 / 220 Output: Gastric Drainage 790 / 790 Left Nare 790 / 790 Urine 175 / 175 200 / 200 Stool 750 / 750 150 / 900 Other: Urine Color Yellow Yellow Urine Appearance Clear Clear Urine Odor None Normal Comment unmeasured, very little amount also voided in brief Stool Characteristics Liquid Data Completed and Pending Labs on day of discharge: Labs from last 24 hours 03/01/25 06:12: WBC 4.22 L, RBC 3.42 L, Hgb 9.3 L, Hct 29.6 L, MCV 87, MCH 27.2, MCHC 31.4 L, RDW 15.0 H, Plt Count 77 L, MPV 10.7, Immature Gran % 0.5, Neutrophils % 57.6, Lymphocytes % 22.3, Monocytes % 11.6, Eosinophils % 7.3, Basophils % 0.7, Nucleated RBC % 0.0, Absolute Neutrophils 2.43, Absolute Lymphocytes 0.94 L, Absolute Monocytes 0.49, Absolute Eosinophils 0.31, Absolute Basophils 0.03, Sodium 145, Potassium 3.3 L, Chloride 110 H, Carbon Dioxide 24.0, Anion Gap 11.0, BUN 25 H, Creatinine 1.4 H, Est GFR (CKD-EPI 2020) 51.45, Glucose 130 H, Calcium 8.2 L, Total Bilirubin 1.9 H, AST 24, ALT 13 L, Alkaline Phosphatase 96, Total Protein 5.3 L, Albumin 2.5 L PFSH All Active Problems (Updated 02/28/25 @ 13:09 by Osmar Blancas MD) V-tach (Chronic) Splenomegaly (Acute) Liver mass (Acute) SBO (small bowel obstruction) (Acute) Vomiting (Acute) Abdominal pain (Acute) Elevated lactic acid level (Acute) Acute UTI (Acute) Symptomatic bradycardia (Acute) Acute hypokalemia (Acute) Family conflict (Acute) Chest pain in adult (Acute) Fall (Acute) Thrombocytopenia (Chronic) Colostomy care (Acute) Chronic low back pain (Chronic) Hematuria (Acute) Elevated troponin level not due myocardial infarction (Acute) Leukopenia (Acute) Oral candidiasis (Acute) Sepsis syndrome (Acute) Gram-negative bacteremia (Acute) Cellulitis (Acute) Lower urinary obstructive symptom (Acute) Anemia of chronic disease (Acute) Thrombocytopenia (Chronic) Ventricular ectopy (Acute) Sinus bradycardia (Acute) Leukocytosis (Acute) Hypertension (Chronic) Elevated lactic acid level (Acute) CHF (congestive heart failure) (Chronic) No-show for appointment (Acute) Left rotator cuff tear (Acute) Acute UTI (urinary tract infection) (Acute) Weakness (Acute) Non-ST elevation [place] (NSTEMI) (Acute) Pre-syncope (Acute) Frequent falls (Acute) Orthostatic hypotension (Acute) Chronic atrial fibrillation (Chronic) Type 2 diabetes mellitus (Chronic) Hypokalemia (Acute) Bradycardia (Acute) Multiple falls (Acute) Acute metabolic encephalopathy (Acute) Medication monitoring encounter (Acute) ANETTE (obstructive sleep apnea) (Chronic) Chest pain (Acute) CHF exacerbation (Acute) CHF (congestive heart failure) (Chronic) EF 25%- 2023 Medical History Goals of care, counseling/discussion Lactic acidosis UTI (urinary tract infection) Urinary tract infection Advanced care planning/counseling discussion Palliative care encounter Followed by [facility] Bowel obstruction Sepsis Heart failure with reduced ejection fraction Hypothyroidism Small bowel obstruction Lactic acid acidosis Creatinine elevation Acute UTI Anticoagulated COVID Recurrent intestinal obstruction History of colon cancer Chronic anticoagulation Portal hypertension Cirrhosis TIPs placed (?when, [facility]? 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, Dx [facility] as per pt Non-insulin dependent type 2 diabetes mellitus Incontinence Hypertension Scleral icterus Surgical History S/P TIPS (transjugular intrahepatic portosystemic shunt) H/O left hemicolectomy Colostomy in place Social History Smoking/Tobacco Use Status: Former Tobacco Use Smoking risk assessment performed?: Yes Alcohol Intake: former Drug use: Never Substance use type: does not use Housing: correction Do you feel safe at home: Yes Do you feel safe in your relationship?: Yes Additional Social history: from [facility] Time Spent with Patient Time Spent with Patient: <45 minutes Time was spent: preparing to see the patient(eg.review tests), obtaining and/or reviewing separately otained hiistory, ordering medications,tests, procedures, referring, communicating with other health plant health care technician, indepentently interpreting results, counseling the patient and care coordination
[2025-03-03 13:04] LABS: Free PSA/PSA Ratio 0.42 ratio
== END 2025-03-01 14:25 | disposition skilled nursing facility (03) | DRG 389 ==
LOC: ER 20:24 → MS 22:36
PROVIDERS: Hospitalist; Admitting Provider Student in an Organized Health Care Education/Training Program; Emergency Provider Emergency Medicine; PCP Nurse Practitioner Adult Health; Responsible Provider Family Medicine; Visit Provider Student in an Organized Health Care Education/Training Program
DX: K56.609 Unspecified intestinal obstruction, unspecified as to partial versus complete obstruction (principal); I47.20 Ventricular tachycardia, unspecified; I48.20 Chronic atrial fibrillation, unspecified; I50.22 Chronic systolic (congestive) heart failure; K74.60 Unspecified cirrhosis of liver; E03.9 Hypothyroidism, unspecified; D69.6 Thrombocytopenia, unspecified; R16.1 Splenomegaly, not elsewhere classified; G89.29 Other chronic pain; M54.50 Low back pain, unspecified; D63.8 Anemia in other chronic diseases classified elsewhere; I11.0 Hypertensive heart disease with heart failure; G47.33 Obstructive sleep apnea (adult) (pediatric); Z85.038 Personal history of other malignant neoplasm of large intestine; E11.9 Type 2 diabetes mellitus without complications; F32.A Depression, unspecified; Z79.01 Long term (current) use of anticoagulants; Z95.828 Presence of other vascular implants and grafts; Z93.3 Colostomy status; Z90.49 Acquired absence of other specified parts of digestive tract; Z79.84 Long term (current) use of oral hypoglycemic drugs; R16.0 Hepatomegaly, not elsewhere classified
CPT/HCPCS: 00123; 36415; 80048; 80053; 83690; 85027; 87637; 96374; 96375; 99285; 71045; 74018; 74177; 81003; 81015; 83735; 84154; 85025; 85610; 85730; 87086; 93005; 93010; 93306; 99222; 99232; 99233; 99239; J1171; J1938; J2250; J3490

== ENCOUNTER 2025-03-31 23:44 | Outpatient (REF) | payer SELFPAY ==
[2025-03-31 14:16] LABS: Hemoglobin A1C 6.8 % (<5.7)
== END 2025-03-31 23:45 | disposition home or self-care (01) ==
LOC: LBN 23:44
PROVIDERS: PCP Nurse Practitioner Adult Health; Visit Provider Family Medicine
DX: E11.40 Type 2 diabetes mellitus with diabetic neuropathy, unspecified (principal)
CPT/HCPCS: 83036

== ENCOUNTER 2025-04-02 21:54 | Emergency (ER) | payer OTHER, SELFPAY ==
[2025-04-02] VITALS (17 sets, daily range): BP systolic 145–180; BP diastolic 48–85; PULSE 68–97; RESP 12–18; TEMP 36.8; O2SAT 92–96
--- NOTE | 2025-04-02 21:45 | RT.EKG_ITS ---
APPROVED REPORT Exam: Resting ECG Reason for Exam: fall Patient Location: E HR:83 bpm ECG Measurements Heart Rate 83 AXIS NM 240 P -86 QRSd 123 QRS 36 QT 406 T 263 QTc 476 Conclusion Sinus or ectopic atrial rhythm...P axis (-45,135) Multiform ventricular premature complexes...short R-R, variable morphology Prolonged NM interval...NM >220, V-rate 50- 90 Left bundle branch block...QRSd>120, broad/notched R There are no significant changes compared to prior EKG performed on 02/28/2025 at 13:11 except for QR S is now > 120ms otherwise similar in appearance and morphology.
--- NOTE | 2025-04-02 22:04 | W.ED.GENAD ---
Discharge Plan Disposition Patient Disposition: Long Term Facility(SNF) Condition: Stable Discharge Details Clinical Impression: Symptomatic anemia, Fall with no significant injury Primary Care Provider: Maryann Whitt ED Provider: Osmar Chavez and New Rx's Prescriptions: Continued pantoprazole 40 mg Tablet,Delayed Release (Dr/Ec) 40 mg PO DAILY Eliquis 5 mg Tablet 5 mg PO BID Patient Comments: taking per pt nitroglycerin 0.4 mg Tablet, Sublingual 0.4 mg sublingual Q5 MIN PRN X3 PRNQty: 30 0RF rifaximin 550 mg Tablet 550 mg PO BID prazosin 5 mg capsule 10 mg PO QPM tamsulosin 0.4 mg Capsule 0.4 mg PO DAILY furosemide 20 mg tablet 40 mg PO DAILY metformin 500 mg tablet extended release 24hr 1,000 mg PO QPM bisacodyl [Dulcolax (bisacodyl)] 10 mg suppository 10 mg SC DAILY PRN ondansetron 4 mg tablet,disintegrating 4 mg PO Q6H PRN potassium chloride 20 mEq tablet extended release 20 meq PO DAILY spironolactone [Aldactone] 25 mg tablet 12.5 mg PO DAILY venlafaxine [Effexor XR] 75 mg capsule,extended release 24hr 75 mg PO DAILY Patient Comments: takes w/150mg capsule for total dose of 225mg daily lactulose 20 gram/30 mL Solution 10 g PO TID Rx Instructions: to maintain colostomy output of 3-4 bags per day diclofenac sodium [Arthritis Pain (diclofenac)] 1 % gel 2 g topical TID Rx Instructions: apply to single elbow, wrist or hand; for hand includes palm/fingers/back of hand empagliflozin 25 mg Tablet 25 mg PO DAILY levothyroxine 200 mcg Tablet 100 mcg PO QAM Qty: 0 0RF venlafaxine 150 mg capsule,extended release 24hr 150 mg PO DAILY acetaminophen [Tylenol] 325 mg Capsule 650 mg PO Q6H MDD 3000 PRN Discharge Instructions Additional Instructions: You were seen in the ED [facility] with no apparent injury. Overall, your laboratory studies are reassuring though you have had a slow decline in your blood count over the last 6 months. Given your weakness and dizziness we discussed and decided to transfuse 1 unit of blood which you tolerated very well. We would like you to follow-up with your physicians at the [facility] in regards to your anemia. You should only ambulate with assistance to prevent further falls. Return to the ED if you develop any chest pain, shortness of breath, syncope, other concerns. Referrals: Maryann Whitt [Primary Care Provider] - [facility] General Mode of arrival: EMS. Date/Time Provider Initiated Documentation: 04/02/25 21:57. Limitations to Documentation: no limitations. Information obtained by: patient, RN notes reviewed and old records reviewed. HPI Narrative: Patient presents to ED by ambulance from across the street where he is at [facility]. Patient reports feeling dizzy and lightheaded and having what sounds like a controlled fall. He did not pass out. He did not strike his head. He does not have neck or back pain. He has a little bit of discomfort in his left arm and left leg as he did fall toward his left side. He denies having any type of chest pain or pressure. He has no shortness of breath. He has had no fever that he is aware of. He has been eating and drinking okay. His ostomy has been working fine. Denies any urinary symptoms other than urinating a lot. Does have a history of atrial fibrillation for which he is on anticoagulation. Also has a history of chronic congestive heart failure. Again, he does not feel that his breathing is any worse than it typically is and he otherwise feels at baseline. His only new complaint is some discomfort and soreness at the tail of his coccyx which began about 2 days ago. Related Data Home Medications ?Medication ?Instructions ?Recorded ?Confirmed apixaban 5 mg tablet (Eliquis) 5 mg PO BID 11/08/22 04/02/25 pantoprazole 40 mg tablet,delayed 40 mg PO DAILY 11/08/22 04/02/25 release nitroglycerin 0.4 mg sublingual 0.4 mg sublingual Q5 MIN PRN X3 02/10/23 04/02/25 tablet PRN #30 tabs empagliflozin 25 mg tablet 25 mg PO DAILY 04/09/23 04/02/25 levothyroxine 200 mcg tablet 100 mcg (1/2 x 200 mcg) PO QAM #0 04/10/23 04/02/25 tabs rifaximin 550 mg tablet 550 mg PO BID 07/07/23 04/02/25 venlafaxine 150 mg 150 mg PO DAILY 03/05/24 04/02/25 capsule,extended release 24 hr acetaminophen 325 mg capsule 650 mg PO Q6H PRN 05/12/24 04/02/25 (Tylenol) prazosin 5 mg capsule 10 mg PO QPM 08/04/24 04/02/25 tamsulosin 0.4 mg capsule 0.4 mg PO DAILY 08/04/24 04/02/25 furosemide 20 mg tablet 40 mg PO DAILY 01/17/25 04/02/25 metformin 500 mg tablet,extended 1,000 mg PO QPM 01/17/25 04/02/25 release 24hr (osmotic) bisacodyl 10 mg rectal suppository 10 mg SC DAILY PRN 02/26/25 04/02/25 (Dulcolax (bisacodyl)) lactulose 20 gram/30 mL oral 10 g PO TID 02/26/25 04/02/25 solution ondansetron 4 mg disintegrating 4 mg PO Q6H PRN 02/26/25 04/02/25 tablet potassium chloride 20 mEq 20 meq PO DAILY 02/26/25 04/02/25 tablet,extended release spironolactone 25 mg tablet 12.5 mg PO DAILY 02/26/25 04/02/25 (Aldactone) venlafaxine 75 mg capsule,extended 75 mg PO DAILY 02/26/25 04/02/25 release 24 hr (Effexor XR) diclofenac sodium 1 % topical gel 2 g topical TID 04/02/25 04/02/25 (Arthritis Pain (diclofenac)) Previous Rx's ?Medication ?Instructions ?Recorded nitroglycerin 0.4 mg sublingual 0.4 mg sublingual Q5 MIN PRN X3 02/10/23 tablet PRN #30 tabs levothyroxine 200 mcg tablet 100 mcg (1/2 x 200 mcg) PO QAM #0 04/10/23 tabs Allergies Allergy/AdvReac Type Severity Reaction Status Date / Time Penicillins Allergy Mild Itching Verified 02/26/25 18:11 mussels Allergy Anaphylaxis Verified 04/02/25 22:06 morphine AdvReac Severe vomiting Verified 02/26/25 18:11 General Stated Complaint: Fall/Non TraumaCriteria ANNA: 3 Exam Narrative Exam Narrative: Const: WDWN eldelry male in NAD. VS per triage. HEENT: NC/AT. Normal facial exam. Neck: Supple. Trachea midline. No midline tenderness. Lungs: Normal respiratory effort. Lungs are clear. No chest wall tenderness. Cor: Irregular rhythm with loud murmur along LSB. Good radial pulses. GI: Soft/ND/NT. Back: No TLS tenderness. Mild erythema at base of coccyx but no skin breakdown at this time. Neuro: A+O x 3. Normal speech, mentation. Cranial nerves II - XII grossly intact. No gross motor or sensory deficit. Ext: No C/C/E. No deformity or tenderness. Course Vital Signs Vital signs: Vital Signs Temperature 98.3 F 04/02/25 21:55 Pulse 77 04/02/25 21:55 Respiratory Rate 18 04/02/25 21:55 Blood Pressure 165/68 H 04/02/25 21:55 Pulse Oximetry 96 04/02/25 21:55 Temperature 98.3 F 04/02/25 21:55 Temperature Source Tympanic 04/02/25 21:55 Pulse 77 04/02/25 21:55 Respiratory Rate 18 04/02/25 21:55 Blood Pressure 165/68 H 04/02/25 21:55 Pulse Oximetry 96 04/02/25 21:55 Pain Level 5 04/02/25 21:55 Medical Decision Making Patient presenting to ED after episode of dizziness resulting in a controlled fall with no apparent injury. He is anticoagulated but reports that he did not pass out and he did not strike his head. Has some mild complaint of pain in left arm and left leg but has full range of motion with no deformity or tenderness. He is neurologically intact. His EKG is sinus rhythm with PACs versus intermittent episodes of A-fib, PVCs, left bundle branch block. He has no acute ST abnormalities. It is essentially unchanged from previous though QRS is usually not the full 120 ms for left bundle which is now present. His vital signs and oxygenation are otherwise okay. I do not think he requires any imaging at this point. We will check labs and urinalysis. 23:30 - Patient's H&H has slowly trended down over the last 6 months. He reports occasionally seeing some blood in ostomy bag but not something frequent. My guess is between chronic disease and slow GI loss since being on anticoagulation, he has dropped down to a level where he is symptomatic. Currently has a hemoglobin of 7.9 and hematocrit 26.4 which 6 months ago was almost 12 and 40. I do not think he requires admission. I do think he would benefit from a unit of blood and I have discussed this with him. He has consented and we will transfuse 1 unit of blood here overnight. Will plan discharge back to rehab in the morning and refer him to follow-up with his doctors at the [facility]. 04:15 - Patient did well with transfusion. His other labs fairly unremarkable. Magnesium a little low at 1.7. Bilirubin elevated but this is chronic. Urinalysis with trace blood on micro, 0-2 red cells and 3-5 white cells on micro. No significant injury related to the fall. Some skin erythema at the base of the coccyx but no skin breakdown. Feel the patient may return [facility]. May follow-up with his doctors at the [facility] in regards to his slow decline in hemoglobin. Return precautions provided. Medical Records Medical records reviewed: Yes I reviewed the patient's medical records. Medical records narrative: last few d/c summaries from [facility] Lab Data Lab results reviewed: Yes I reviewed the patient's lab results. Lab results narrative: see [facility] ECG Data Attestation: I personally reviewed and interpreted this ECG (s) as follows: Prior ECG tracings: available for review Interpretation: see MDM/EKG Quality:SDOH Health Related Social Needs: Health related social needs housing instability, housed, with risk of homelessness (Z59.811), education (Z55.6) Health related social needs details Not satisfied at [facility] All Active Problems (Updated 04/03/25 @ 04:16 by Osmar Chavez MD) Fall with no significant injury (Acute) Symptomatic anemia (Acute) Splenomegaly (Acute) Liver mass (Acute) Vomiting (Acute) Abdominal pain (Acute) Elevated lactic acid level (Acute) Acute UTI (Acute) Symptomatic bradycardia (Acute) Acute hypokalemia (Acute) Family conflict (Acute) Chest pain in adult (Acute) Fall (Acute) Thrombocytopenia (Chronic) Colostomy care (Acute) Chronic low back pain (Chronic) Hematuria (Acute) Elevated troponin level not due myocardial infarction (Acute) Leukopenia (Acute) Oral candidiasis (Acute) Sepsis syndrome (Acute) Gram-negative bacteremia (Acute) Cellulitis (Acute) Lower urinary obstructive symptom (Acute) Anemia of chronic disease (Acute) Thrombocytopenia (Chronic) Ventricular ectopy (Acute) Sinus bradycardia (Acute) Leukocytosis (Acute) Hypertension (Chronic) Elevated lactic acid level (Acute) CHF (congestive heart failure) (Chronic) No-show for appointment (Acute) Left rotator cuff tear (Acute) Acute UTI (urinary tract infection) (Acute) Weakness (Acute) Non-ST elevation [place] (NSTEMI) (Acute) Pre-syncope (Acute) Frequent falls (Acute) Orthostatic hypotension (Acute) Chronic atrial fibrillation (Chronic) Type 2 diabetes mellitus (Chronic) Hypokalemia (Acute) Bradycardia (Acute) Multiple falls (Acute) Acute metabolic encephalopathy (Acute) Medication monitoring encounter (Acute) ANETTE (obstructive sleep apnea) (Chronic) Chest pain (Acute) CHF exacerbation (Acute) CHF (congestive heart failure) (Chronic) EF 25%- 2023 Medical History Chronic heart failure with reduced ejection fraction (HFrEF, <= 40%) Anemia Cirrhosis of liver without ascites Diabetes PAF (paroxysmal atrial fibrillation) Goals of care, counseling/discussion Lactic acidosis UTI (urinary tract infection) Urinary tract infection Advanced care planning/counseling discussion Palliative care encounter Followed by [facility] Bowel obstruction Sepsis Heart failure with reduced ejection fraction Hypothyroidism Small bowel obstruction Lactic acid acidosis Creatinine elevation Acute UTI Anticoagulated COVID Recurrent intestinal obstruction History of colon cancer Chronic anticoagulation Portal hypertension Cirrhosis TIPs placed (?when, [facility]? 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 as per pt Non-insulin dependent type 2 diabetes mellitus Incontinence Hypertension Scleral icterus Surgical History S/P TIPS (transjugular intrahepatic portosystemic shunt) H/O left hemicolectomy Colostomy in place Social History Smoking/Tobacco Use Status: Former Tobacco Use Smoking risk assessment performed?: Yes Alcohol Intake: former Drug use: Never Substance use type: does not use Housing: shelter Do you feel safe at home: Yes Do you feel safe in your relationship?: Yes Additional Social history: from [facility]
[2025-04-02 22:24] LABS: Abs Immature Grans 0.01 10^3/uL (0.0-0.06); Absolute Basophil Count 0.03 10^3/uL (0.0-0.2); Absolute Eosinophil Count 0.48 10^3/uL (0.0-0.7); Absolute Lymphocyte Count 0.99 10^3/uL (1.2-3.4); Absolute Monocyte Count 0.75 10^3/uL (0.1-0.8); Absolute Neutrophil Count 4.11 10^3/uL (1.2-6.7); Basophils % 0.5 %; Eosinophils % 7.5 %; HCT 26.4 % (40.0-50.0); HGB 7.9 g/dL (13.5-17.5); Immature Grans % 0.2 %; Lymphocytes % 15.5 %; MCH 24.5 pg (27.0-33.0); MCHC 29.9 % (32.0-36.0); MCV 82 fL (80-95); MPV 11.1 fL (8.0-11.0); Monocytes % 11.8 %; Neutrophils % 64.5 %; Platelet Count 128 10^3/uL (130-400); RBC 3.23 10^6/uL (4.36-5.78); RDW 15.5 % (11.8-14.1); RDW-SD 46.1 fL; WBC 6.37 10^3/uL (4.4-10.8)
[2025-04-02 22:39] LABS: ALT 19 U/L (16-63); AST 23 U/L (15-37); Alkaline Phosphatase 104 U/L (46-116); Anion Gap 11.2 mmol/L (3-11); BUN 18 mg/dL (7-18); Bilirubin, Total 1.6 mg/dL (0.2-1.0); CO2 25.8 mmol/L (21.0-32.0); CREATININE 1.2 mg/dL (0.70-1.30); Calcium 9.1 mg/dL (8.5-10.1); Chloride 107 mmol/L (98-107); Glucose 127 mg/dL (74-106); Magnesium 1.7 mg/dL (1.8-2.4); Potassium 3.9 mmol/L (3.5-5.1); Sodium 144 mmol/L (136-145); Total Protein 6.4 g/dL (6.4-8.2)
[2025-04-02 22:49] LABS: Anisocytosis 1+; Diff Comment RBC Morph Reviewed; Polychromasia Present
[2025-04-02 22:50] LABS: Poikilocytes 1+
[2025-04-02 23:53] LABS: Bilirubin Negative (Negative); Blood Trace-intact (Negative); Clarity Clear (Clear); Glucose >=1000 mg/dL (Negative); Ketones Negative (Negative); Leukocyte Esterase Negative (Negative); Nitrite Negative (Negative)
[2025-04-03] VITALS (68 sets, daily range): BP systolic 141–194; BP diastolic 30–87; PULSE 58–98; RESP 12–24; TEMP 36.9–37.2; O2SAT 90–97
[2025-04-03] LABS: Bacteria Many HPF (Negative); C & S Indicated? No; Casts Negative LPF (Negative); Crystals Negative HPF (Negative); Epithelial Cells Few HPF (Negative); Mucus Negative (Negative); RBC 0-2 HPF (0-2)
--- NOTE | 2025-04-03 04:42 | NUR.NOTE ---
report given to Vaishnavi at [facility] Nursing Note:
--- NOTE | 2025-04-03 04:59 | NUR.NOTE ---
unable to arrange transport by EMS. [facility] to arrange transport in the AM Nursing Note:
--- NOTE | 2025-04-03 06:25 | NUR.NOTE ---
ED MD notified of PT status. PT to wait for transport Nursing Note:
== END 2025-04-03 07:26 | disposition skilled nursing facility (03) ==
PROVIDERS: Emergency Provider Emergency Medicine; PCP Nurse Practitioner Adult Health
DX: N39.0 Urinary tract infection, site not specified (principal); M25.512 Pain in left shoulder; M25.562 Pain in left knee; I44.7 Left bundle-branch block, unspecified; I11.0 Hypertensive heart disease with heart failure; I50.22 Chronic systolic (congestive) heart failure; I48.0 Paroxysmal atrial fibrillation; E11.9 Type 2 diabetes mellitus without complications; E03.9 Hypothyroidism, unspecified; Z86.73 Personal history of transient ischemic attack (TIA), and cerebral infarction without residual deficits; Z79.01 Long term (current) use of anticoagulants; Z79.84 Long term (current) use of oral hypoglycemic drugs; Z91.81 History of falling; Z87.891 Personal history of nicotine dependence
CPT/HCPCS: 80053; 86850; 86900; 86901; 86920; 93005; 99285; 81003; 81015; 83735; 85025; 93010; 99284; P9016

== ENCOUNTER 2025-04-03 14:44 | Emergency (ER) | payer SELFPAY ==
[2025-04-03] VITALS (31 sets, daily range): BP systolic 143–179; BP diastolic 39–81; PULSE 67–91; RESP 14–25; TEMP 37.4–37.5; O2SAT 90–95
--- NOTE | 2025-04-03 14:45 | RT.EKG_ITS ---
APPROVED REPORT Exam: Resting ECG Reason for Exam: altered mental status Patient Location: E HR:80 bpm ECG Measurements Heart Rate 80 AXIS MI 199 P -51 QRSd 133 QRS 30 QT 448 T 60 QTc 490 Conclusion Sinus 80 LBBB no stemi
--- NOTE | 2025-04-03 14:45 | DI.CT_ITS ---
Exam(s) CT HEAD WO EXAM: CT HEAD WO CLINICAL HISTORY: fall. TECHNIQUE: Imaging Protocol: Axial computed tomography images with coronal and sagittal reformatted images were created and reviewed COMPARISON: CT CT HEAD CERVICAL SPINE WO from 07/28/2024 FINDINGS: Ventricles and Extra axial spaces: Normal in size and morphology for the patient's age. Hemorrhage: None. Cerebral parenchyma: There is an area of decreased attenuation in the high left parietal lobe. There is no resultant mass effect or effacement of the adjacent sulci. This may represent an old infarct. T here are areas of decreased attenuation in the white matter consistent chronic microvascular ischemic disease. Midline shift: None. Brainstem/Cerebellum: Normal. Calvarium: Normal. Visualized Paranasal sinuses/Mastoids: Mucous retention cysts are seen in the maxillary sinuses. The re is mucosal thickening in all of the visualized paranasal sinuses cyst. Postsurgical changes are s een in the sinuses. The findings have progressed since the prior examination from 07/28/2024. Soft Tissues: Unremarkable. IMPRESSION: 1. Intracranial hemorrhage or skull fracture. 2. Age-related cerebral atrophy and chronic microvascular ischemic disease. There is an area of decr eased attenuation in the high left parietal lobe not present on the prior examination from 07/28/2024. This may reflect an interim infarct which appears old at this time. Follow-up as clinically approp [place]. 3. Worsening pansinusitis. RADIATION DOSE DELIVERED: 879.65mGy.cm Total DLP DATA REPOSITORY: All CT scans at this facility are submitted to the National Radiology Data Registry (NRDR) Dose Index Registry (DIR) with the [employer] (ACR). RADIATION OPTIMIZATION: All CT scans at this facility use at least one of these dose optimization te chniques: automated exposure control; mA and/or kV adjustment per patient size (includes targeted exa ms where dose is matched to clinical indication); or iterative reconstruction.
--- NOTE | 2025-04-03 15:04 | W.ED.GENAD ---
Discharge Plan Disposition Patient Disposition: Home Condition: Stable Discharge Details Clinical Impression: Acute UTI, Multiple falls Primary Care Provider: Maryann Whitt ED Provider: Yajaira Islas Home Meds and New Rx's Prescriptions: New sulfamethoxazole-trimethoprim [Bactrim DS] 800-160 mg tablet 1 tab PO BID 7 Days Qty: 14 0RF No Action pantoprazole 40 mg Tablet,Delayed Release (Dr/Ec) 40 mg PO DAILY Eliquis 5 mg Tablet 5 mg PO BID Patient Comments: taking per pt nitroglycerin 0.4 mg Tablet, Sublingual 0.4 mg sublingual Q5 MIN PRN X3 PRNQty: 30 0RF rifaximin 550 mg Tablet 550 mg PO BID prazosin 5 mg capsule 10 mg PO QPM tamsulosin 0.4 mg Capsule 0.4 mg PO DAILY furosemide 20 mg tablet 40 mg PO DAILY metformin 500 mg tablet extended release 24hr 1,000 mg PO BID bisacodyl [Dulcolax (bisacodyl)] 10 mg suppository 10 mg NM DAILY PRN ondansetron 4 mg tablet,disintegrating 4 mg PO Q6H PRN potassium chloride 20 mEq tablet extended release 20 meq PO DAILY spironolactone [Aldactone] 25 mg tablet 12.5 mg PO DAILY venlafaxine [Effexor XR] 75 mg capsule,extended release 24hr 75 mg PO DAILY Patient Comments: takes w/150mg capsule for total dose of 225mg daily lactulose 20 gram/30 mL Solution 10 g PO TID Rx Instructions: to maintain colostomy output of 3-4 bags per day diclofenac sodium [Arthritis Pain (diclofenac)] 1 % gel 2 g topical TID Rx Instructions: apply to single elbow, wrist or hand; for hand includes palm/fingers/back of hand empagliflozin 25 mg Tablet 25 mg PO DAILY levothyroxine 200 mcg Tablet 100 mcg PO QAM Qty: 0 0RF venlafaxine 150 mg capsule,extended release 24hr 150 mg PO DAILY acetaminophen [Tylenol] 325 mg Capsule 650 mg PO Q6H MDD 3000 PRN Discharge Instructions Additional Instructions: CT scan of the brain does not reveal an acute traumatic injury from his fall He does have a urinary tract infection which is likely the cause of his confusion. He has been started on antibiotics. A prescription for additional antibiotics has been sent to the pharmacy. He got his dose for today so this prescription can be started tomorrow. Please keep a close eye on him and utilize all safety precautions to prevent further falls mild elevation in ammonia, but not more elevated than previous. discuss with supervising provider for ongoing management. Discharge Data Discharge Date/Time-TO BE ENTERED AT DEPARTURE: 04/03/25 17:51 HPI General Date/Time Provider Initiated Documentation: 04/03/25 14:52. Limitations to Documentation: altered mental status. Information obtained by: patient and RN/MD. HPI Narrative: 80-year-old gentleman with past medical history of anemia, CHF, diabetes, ostomy presents for evaluation after a fall. Patient was seen in the emergency department last night and discharged this morning around 7:30 AM back to the correction facility. Reportedly he had an unwitnessed fall around 830 he was found on the floor. No obvious injuries were noted by nursing staff. They report that throughout the day he seemed to be more confused so they sent him back to the emergency department for further evaluation. The patient is unable to tell me any details about how why or when he fell. He does state that his head hurts. is unclear if he had a second fall this afternoon or just the worsening change in his mental status throughout the day. Report is fairly limited at this time. Related Data Home Medications ?Medication ?Instructions ?Recorded ?Confirmed apixaban 5 mg tablet (Eliquis) 5 mg PO BID 11/08/22 04/03/25 pantoprazole 40 mg tablet,delayed 40 mg PO DAILY 11/08/22 04/03/25 release nitroglycerin 0.4 mg sublingual 0.4 mg sublingual Q5 MIN PRN X3 02/10/23 04/03/25 tablet PRN #30 tabs empagliflozin 25 mg tablet 25 mg PO DAILY 04/09/23 04/03/25 levothyroxine 200 mcg tablet 100 mcg (1/2 x 200 mcg) PO QAM #0 04/10/23 04/03/25 tabs rifaximin 550 mg tablet 550 mg PO BID 07/07/23 04/03/25 venlafaxine 150 mg 150 mg PO DAILY 03/05/24 04/03/25 capsule,extended release 24 hr acetaminophen 325 mg capsule 650 mg PO Q6H PRN 05/12/24 04/02/25 (Tylenol) prazosin 5 mg capsule 10 mg PO QPM 08/04/24 04/03/25 tamsulosin 0.4 mg capsule 0.4 mg PO DAILY 08/04/24 04/02/25 furosemide 20 mg tablet 40 mg PO DAILY 01/17/25 04/03/25 metformin 500 mg tablet,extended 1,000 mg PO BID 01/17/25 04/03/25 release 24hr (osmotic) bisacodyl 10 mg rectal suppository 10 mg NM DAILY PRN 02/26/25 04/03/25 (Dulcolax (bisacodyl)) lactulose 20 gram/30 mL oral 10 g PO TID 02/26/25 04/03/25 solution ondansetron 4 mg disintegrating 4 mg PO Q6H PRN 02/26/25 04/02/25 tablet potassium chloride 20 mEq 20 meq PO DAILY 02/26/25 04/03/25 tablet,extended release spironolactone 25 mg tablet 12.5 mg PO DAILY 02/26/25 04/03/25 (Aldactone) venlafaxine 75 mg capsule,extended 75 mg PO DAILY 02/26/25 04/03/25 release 24 hr (Effexor XR) diclofenac sodium 1 % topical gel 2 g topical TID 04/02/25 04/03/25 (Arthritis Pain (diclofenac)) sulfamethoxazole 800 1 tab PO BID 7 days #14 tabs 04/03/25 mg-trimethoprim 160 mg tablet (Bactrim DS) Previous Rx's ?Medication ?Instructions ?Recorded nitroglycerin 0.4 mg sublingual 0.4 mg sublingual Q5 MIN PRN X3 02/10/23 tablet PRN #30 tabs levothyroxine 200 mcg tablet 100 mcg (1/2 x 200 mcg) PO QAM #0 04/10/23 tabs sulfamethoxazole 800 1 tab PO BID 7 days #14 tabs 04/03/25 mg-trimethoprim 160 mg tablet (Bactrim DS) Allergies Allergy/AdvReac Type Severity Reaction Status Date / Time Penicillins Allergy Mild Itching Verified 02/26/25 18:11 mussels Allergy Anaphylaxis Verified 04/02/25 22:06 morphine AdvReac Severe vomiting Verified 02/26/25 18:11 General Stated Complaint: AMS/LOC ANNA: 2 Exam Narrative Exam Narrative: Review of Systems: All systems reviewed & are unremarkable except as noted in HPI and below Well-developed, no acute distress NCAT no bruising contusions or lacerations noted PERRL, normal conjunctiva RRR no murmur Unlabored respiratory effort, clear bilaterally Nondistended abdomen soft, ostomy noted in the left lower quadrant pelvis stable nontender, full range of motion bilateral hips Alert, oriented to person and place, but has been verbal difficulty with answering questions following commands Course Vital Signs Vital signs: Vital Signs Temperature 37.4 C 04/03/25 14:48 Pulse 80 04/03/25 14:48 Blood Pressure 143/55 H 04/03/25 14:48 Pulse Oximetry 94 04/03/25 14:48 Temperature 37.4 C 04/03/25 14:48 Temperature Source Temporal Artery Scan 04/03/25 14:48 Pulse 80 04/03/25 14:48 Blood Pressure 143/55 H 04/03/25 14:48 Blood Pressure Position Supine 04/03/25 14:48 Pulse Oximetry 94 04/03/25 14:48 Oxygen Delivery Method Room Air 04/03/25 14:48 Oxygen Flow Rate 0 04/03/25 14:48 Pain Level 0 04/03/25 14:48 Comment pt c/o WITT on arrival and now denies having a head ache 04/03/25 14:48 Medical Decision Making Emergent evaluation of altered mental status after a fall. History is limited and patient is not able to provide much to me at all. Reportedly he left the emergency department this morning was return to the correction facility across the street. At some time he had an unwitnessed fall. However this occurred around 830 and now at 3 PM not sure what is taking place throughout the day, but apparently there is concern for altered mental status. Patient is anticoagulated on Eliquis and did receive a blood transfusion last night. Initial differential includes traumatic intracranial lesion, metabolic encephalopathy, less likely transfusion reaction, also consider infectious etiology like urinary tract infection. urinalysis from last night does not have any sign of infection but will repeat today. Patient will be sent emergently for head imaging to evaluate for traumatic complication. EKG reviewed and independently interpreted: Sinus 80 left bundle branch block, PVC, no STEMI. CT imaging was reviewed and there is no acute abnormality, remote stroke noted. Blood counts reviewed, hemoglobin has improved after the transfusion last night. Electrolyte derangement including hyponatremia and elevated chloride consistent with prior. A cathed urine specimen was obtained today and this does demonstrate infection. It has been sent for culture. I have reviewed prior urine cultures and noted sensitivities. A dose of IV Rocephin was given and patient will be started on Bactrim. Further management of his urinary tract infection can be done at the correction facility. They did request that we send an ammonia level so this was added onto his blood work. Ammonia slightly elevated at 77 though this does not seem to be his fairly significant elevated for the patient and I do not feel that acute hepatic encephalopathy is the cause of his mental status change as much is his urinary tract infection, but I do recommend that the provider at the nursing facility continue to monitor and manage these ongoing chronic conditions for the patient. Quality:[facility] Health Related Social Needs: Health related social needs housing instability, housed, with risk of homelessness (Z59.811), education (Z55.6) Health related social needs details Not satisfied at [facility] All Active Problems (Updated 04/03/25 @ 16:26 by Yajaira Islas MD) Fall with no significant injury (Acute) Symptomatic anemia (Acute) Splenomegaly (Acute) Liver mass (Acute) Vomiting (Acute) Abdominal pain (Acute) Elevated lactic acid level (Acute) Acute UTI (Acute) Symptomatic bradycardia (Acute) Acute hypokalemia (Acute) Family conflict (Acute) Chest pain in adult (Acute) Fall (Acute) Thrombocytopenia (Chronic) Colostomy care (Acute) Chronic low back pain (Chronic) Hematuria (Acute) Elevated troponin level not due myocardial infarction (Acute) Leukopenia (Acute) Oral candidiasis (Acute) Sepsis syndrome (Acute) Gram-negative bacteremia (Acute) Cellulitis (Acute) Lower urinary obstructive symptom (Acute) Anemia of chronic disease (Acute) Thrombocytopenia (Chronic) Ventricular ectopy (Acute) Sinus bradycardia (Acute) Leukocytosis (Acute) Hypertension (Chronic) Elevated lactic acid level (Acute) CHF (congestive heart failure) (Chronic) No-show for appointment (Acute) Left rotator cuff tear (Acute) Acute UTI (urinary tract infection) (Acute) Weakness (Acute) Non-ST elevation [place] (NSTEMI) (Acute) Pre-syncope (Acute) Frequent falls (Acute) Orthostatic hypotension (Acute) Chronic atrial fibrillation (Chronic) Type 2 diabetes mellitus (Chronic) Hypokalemia (Acute) Bradycardia (Acute) Multiple falls (Acute) Acute metabolic encephalopathy (Acute) Medication monitoring encounter (Acute) ANETTE (obstructive sleep apnea) (Chronic) Chest pain (Acute) CHF exacerbation (Acute) CHF (congestive heart failure) (Chronic) EF 25%- 2023 Medical History Chronic heart failure with reduced ejection fraction (HFrEF, <= 40%) Anemia Cirrhosis of liver without ascites Diabetes PAF (paroxysmal atrial fibrillation) Goals of care, counseling/discussion Lactic acidosis UTI (urinary tract infection) Urinary tract infection Advanced care planning/counseling discussion Palliative care encounter Followed by [facility] Bowel obstruction Sepsis Heart failure with reduced ejection fraction Hypothyroidism Small bowel obstruction Lactic acid acidosis Creatinine elevation Acute UTI Anticoagulated COVID Recurrent intestinal obstruction History of colon cancer Chronic anticoagulation Portal hypertension Cirrhosis TIPs placed (?when, 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, [facility] as per pt Non-insulin dependent type 2 diabetes mellitus Incontinence Hypertension Scleral icterus Surgical History S/P TIPS (transjugular intrahepatic portosystemic shunt) H/O left hemicolectomy Colostomy in place Social History Smoking/Tobacco Use Status: Former Tobacco Use Smoking risk assessment performed?: Yes Alcohol Intake: former Drug use: Never Substance use type: does not use Housing: [facility] Do you feel safe at home: Yes Do you feel safe in your relationship?: Yes Additional Social history: from [facility]
[2025-04-03 15:17] LABS: Abs Immature Grans 0.02 10^3/uL (0.0-0.06); Absolute Basophil Count 0.03 10^3/uL (0.0-0.2); Absolute Eosinophil Count 0.09 10^3/uL (0.0-0.7); Absolute Lymphocyte Count 0.57 10^3/uL (1.2-3.4); Absolute Monocyte Count 0.54 10^3/uL (0.1-0.8); Basophils % 0.5 %; Eosinophils % 1.5 %; HCT 29.7 % (40.0-50.0); HGB 9.2 g/dL (13.5-17.5); Immature Grans % 0.3 %; Lymphocytes % 9.6 %; MCH 24.7 pg (27.0-33.0); MCV 80 fL (80-95); MPV 10.7 fL (8.0-11.0); Monocytes % 9.1 %; Platelet Count 121 10^3/uL (130-400); RBC 3.72 10^6/uL (4.36-5.78); RDW 15.5 % (11.8-14.1); RDW-SD 44.6 fL; WBC 5.95 10^3/uL (4.4-10.8)
[2025-04-03 15:34] LABS: ALT 18 U/L (16-63); AST 22 U/L (15-37); Albumin 3.2 g/dL (3.4-5.0); Alkaline Phosphatase 103 U/L (46-116); Anion Gap 14.5 mmol/L (3-11); BUN 16 mg/dL (7-18); Bilirubin, Total 2.5 mg/dL (0.2-1.0); CO2 21.5 mmol/L (21.0-32.0); CREATININE 1.3 mg/dL (0.70-1.30); Calcium 9.2 mg/dL (8.5-10.1); Chloride 110 mmol/L (98-107); Creatine Kinase 101 U/L (39-308); Estimated GFR 56.23 (mL/min/1.73m2); Glucose 107 mg/dL (74-106); Magnesium 1.6 mg/dL (1.8-2.4); Potassium 3.9 mmol/L (3.5-5.1); Sodium 146 mmol/L (136-145); Total Protein 6.4 g/dL (6.4-8.2)
[2025-04-03 15:36] LABS: INR 1.3 (0.9-1.1); PTT Activated 25.4 sec (20.6-30.2); Prothrombin Time 13.2 sec (9.1-11.1)
[2025-04-03 15:58] LABS: Bilirubin Negative (Negative); Blood Trace-intact (Negative); Clarity Clear (Clear); Glucose >=1000 mg/dL (Negative); Ketones Negative (Negative); Leukocyte Esterase Trace (Negative); Nitrite Negative (Negative); Specific Gravity 1.015 (1.005-1.025); pH 5.5 (5-8)
[2025-04-03 16:14] LABS: Bacteria Many HPF (Negative); C & S Indicated? Yes; Casts Negative LPF (Negative); Crystals Negative HPF (Negative); Epithelial Cells Rare HPF (Negative); Mucus Negative (Negative); RBC 0-2 HPF (0-2)
[2025-04-03] MEDS: cefTRIAXone 2 GM/50 ML BAG IVPB (16:45)
[2025-04-03] MEDS: Sulfameth/Trimeth DS TAB 1 TAB PO (16:45)
[2025-04-03 17:14] LABS: Ammonia 77 umol/L (11-32)
== END 2025-04-03 17:51 | disposition home or self-care (01) ==
PROVIDERS: Emergency Provider Emergency Medicine; PCP Nurse Practitioner Adult Health
DX: N39.0 Urinary tract infection, site not specified (principal); W19.XXXA Unspecified fall, initial encounter; Z59.811 Housing instability, housed, with risk of homelessness; Z55.6 Problems related to health literacy; R41.82 Altered mental status, unspecified
CPT/HCPCS: 99284 ×2; 36416; 82962; 80053; 82550; 87077; 93005; 96365; 70450; 81003; 81015; 82140; 83735; 85025; 85610; 85730; 87086; 87186; 93010; J0696

== ENCOUNTER 2025-04-19 09:06 | Emergency (ER) | payer OTHER, SELFPAY ==
[2025-04-19] VITALS (16 sets, daily range): BP systolic 152–180; BP diastolic 48–61; PULSE 72–85; RESP 14–19; TEMP 36.6; O2SAT 93–97
--- NOTE | 2025-04-19 09:15 | DI.CT_ITS ---
Exam(s) CT HEAD CERVICAL SPINE WO EXAM: CT HEAD CERVICAL SPINE WO CLINICAL HISTORY: fell backward, anticoagulated. TECHNIQUE: Imaging Protocol: Axial computed tomography images with coronal and sagittal reformatted images were created and reviewed COMPARISON: CT CT HEAD WO from 04/03/2025 FINDINGS: Head CT Ventricles and Extra axial spaces: Normal in size and morphology for the patient's age. Hemorrhage: None. Cerebral parenchyma: No evidence of mass or acute infarct. 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 Diffuse white matter changes of microvascular disease. Midline shift: None. Brainstem/Cerebellum: Normal. Calvarium: Normal. Visualized Paranasal sinuses/Mastoids: Mucous retention in both maxillary sinuses, frontal sinuses and ethmoid sinuses. Maxillary and ethmoid cysts sinus surgery. The mastoid air cells are clear. Soft tissues: Unremarkable. Cervical Spine CT The exam is mildly limited by motion. BONES: Vertebral body heights are maintained. Alignment is normal. There is no evidence of acute fracture. Degenerative disc changes and facet degenerative changes are seen . SOFT TISSUES: No paraspinal hematoma. The airway appears intact. No pneumothorax is seen at the lung apices. 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 Sinus disease. C-spine CT: Degenerative changes, no acute abnormality. RADIATION DOSE DELIVERED: 1,400.93mGy.cm Total DLP DATA REPOSITORY: All CT scans at this facility are submitted to the National Radiology Data Registry (NRDR) Dose Index Registry (DIR) with the [employer] (ACR). RADIATION OPTIMIZATION: All CT scans at this facility use at least one of these dose optimization techniques: automated exposure control; mA and/or kV adjustment per patient size (includes targeted exams where dose is matched to clinical indication); or iterative reconstruction.
--- NOTE | 2025-04-19 09:28 | W.ED.GENAD ---
Discharge Plan Disposition Patient Disposition: Home Condition: Good Discharge Details Clinical Impression: Fall, Contusion Primary Care Provider: Maryann Whitt ED Provider: Kalie Leonard Home Meds and New Rx's Prescriptions: Continued pantoprazole 40 mg Tablet,Delayed Release (Dr/Ec) 40 mg PO DAILY Eliquis 5 mg Tablet 5 mg PO BID Patient Comments: taking per pt nitroglycerin 0.4 mg Tablet, Sublingual 0.4 mg sublingual Q5 MIN PRN X3 PRNQty: 30 0RF rifaximin 550 mg Tablet 550 mg PO BID prazosin 5 mg capsule 10 mg PO QPM tamsulosin 0.4 mg Capsule 0.4 mg PO DAILY furosemide 20 mg tablet 40 mg PO DAILY metformin 500 mg tablet extended release 24hr 1,000 mg PO BID bisacodyl [Dulcolax (bisacodyl)] 10 mg suppository 10 mg VT DAILY PRN ondansetron 4 mg tablet,disintegrating 4 mg PO Q6H PRN potassium chloride 20 mEq tablet extended release 20 meq PO DAILY spironolactone [Aldactone] 25 mg tablet 12.5 mg PO DAILY venlafaxine [Effexor XR] 75 mg capsule,extended release 24hr 75 mg PO DAILY Patient Comments: takes w/150mg capsule for total dose of 225mg daily lactulose 20 gram/30 mL Solution 15 ml PO TID Rx Instructions: to maintain colostomy output of 3-4 bags per day diclofenac sodium [Arthritis Pain (diclofenac)] 1 % gel 2 g topical TID Rx Instructions: apply to single elbow, wrist or hand; for hand includes palm/fingers/back of hand empagliflozin 25 mg Tablet 25 mg PO DAILY levothyroxine 200 mcg Tablet 100 mcg PO QAM Qty: 0 0RF venlafaxine 150 mg capsule,extended release 24hr 150 mg PO DAILY acetaminophen [Tylenol] 325 mg Capsule 650 mg PO Q6H MDD 3000 PRN losartan [Cozaar] 50 mg tablet 50 mg PO DAILY Discharge Instructions Instructions: General Trauma, Adult ED Additional Instructions: While your exam here today is reassuring with no significant fractures, bleeding or other injury, I am concerned about your recurrent falls and do encourage you to try to slow down more and take more care in your movements to help prevent future falls. Please continue to take all of your medications as previously prescribed. If you develop any new or worsening symptoms please seek care urgently once again but otherwise, please follow-up with primary care to discuss these recurrent falls in the next 1 to 2 weeks. Referrals: Maryann Whitt [Primary Care Provider, Medicine] [facility] Date/Time Provider Initiated Documentation: 04/19/25 09:12. Limitations to Documentation: no limitations. Information obtained by: patient and RN notes reviewed. History of Present Illness 80 year old M presents to the emergency department with the chief complaint of fell backward, struck head, no LOC, described as mild (denies any pain currently) and similar to prior episodes (has had several falls recently), and is localized to the head and neck (collar applied by EMS). Patient reports no radiation. Patient started experiencing this minute(s) and it has been now resolved (denies any pain currently). No relieving factors improve symptom(s), No exacerbating factors reported . Patient notes no other symptoms.. Patient did receive the following treatments prior to arrival, none Related Data Home Medications ?Medication ?Instructions ?Recorded ?Confirmed apixaban 5 mg tablet (Eliquis) 5 mg PO BID 11/08/22 04/19/25 pantoprazole 40 mg tablet,delayed 40 mg PO DAILY 11/08/22 04/19/25 release nitroglycerin 0.4 mg sublingual 0.4 mg sublingual Q5 MIN PRN X3 02/10/23 04/19/25 tablet PRN #30 tabs empagliflozin 25 mg tablet 25 mg PO DAILY 04/09/23 04/19/25 levothyroxine 200 mcg tablet 100 mcg (1/2 x 200 mcg) PO QAM #0 04/10/23 04/19/25 tabs rifaximin 550 mg tablet 550 mg PO BID 07/07/23 04/19/25 venlafaxine 150 mg 150 mg PO DAILY 03/05/24 04/19/25 capsule,extended release 24 hr acetaminophen 325 mg capsule 650 mg PO Q6H PRN 05/12/24 04/19/25 (Tylenol) prazosin 5 mg capsule 10 mg PO QPM 08/04/24 04/19/25 tamsulosin 0.4 mg capsule 0.4 mg PO DAILY 08/04/24 04/19/25 furosemide 20 mg tablet 40 mg PO DAILY 01/17/25 04/19/25 metformin 500 mg tablet,extended 1,000 mg PO BID 01/17/25 04/19/25 release 24hr (osmotic) bisacodyl 10 mg rectal suppository 10 mg VT DAILY PRN 02/26/25 04/19/25 (Dulcolax (bisacodyl)) lactulose 20 gram/30 mL oral 15 ml PO TID 02/26/25 04/19/25 solution ondansetron 4 mg disintegrating 4 mg PO Q6H PRN 02/26/25 04/19/25 tablet potassium chloride 20 mEq 20 meq PO DAILY 02/26/25 04/19/25 tablet,extended release spironolactone 25 mg tablet 12.5 mg PO DAILY 02/26/25 04/19/25 (Aldactone) venlafaxine 75 mg capsule,extended 75 mg PO DAILY 02/26/25 04/19/25 release 24 hr (Effexor XR) diclofenac sodium 1 % topical gel 2 g topical TID 04/02/25 04/19/25 (Arthritis Pain (diclofenac)) losartan 50 mg tablet (Cozaar) 50 mg PO DAILY 04/19/25 04/19/25 Previous Rx's ?Medication ?Instructions ?Recorded nitroglycerin 0.4 mg sublingual 0.4 mg sublingual Q5 MIN PRN X3 02/10/23 tablet PRN #30 tabs levothyroxine 200 mcg tablet 100 mcg (1/2 x 200 mcg) PO QAM #0 04/10/23 tabs Allergies Allergy/AdvReac Type Severity Reaction Status Date / Time Penicillins Allergy Mild Itching Verified 04/19/25 09:21 mussels Allergy Anaphylaxis Verified 04/19/25 09:21 morphine AdvReac Severe vomiting Verified 04/19/25 09:21 General Stated Complaint: Fall/Non TraumaCriteria ANNA: 3 Review of Systems Constitutional Constitutional: Reports as per HPI, Denies chills, Denies fever(s), Denies headache(s) and Denies weakness Eyes Eyes: Reports as per HPI, Denies blurry vision and Denies change in vision ENT Ears, Nose, Mouth, and Throat: Denies headache(s) Cardiovascular Cardiovascular: Reports as per HPI, Denies chest pain and Denies dyspnea Respiratory Respiratory: Reports as per HPI, Denies cough, Denies pain on inspiration, Denies pain with cough and Denies dyspnea Gastrointestinal Gastrointestinal: Reports as per HPI, Denies abdominal pain, Denies nausea and Denies vomiting Genitourinary Genitourinary: Reports as per HPI and Denies urinary incontinence Musculoskeletal Musculoskeletal: Reports as per HPI Integumentary/Breasts Skin/Breast: Reports as per HPI Neurologic Neurologic: Reports as per HPI, Denies abnormal movements, Denies abnormal speech, Denies headache(s), Denies localized weakness, Denies paresthesias and Denies weakness Exam Const General: cooperative, healthy appearing, comfortable, no acute distress, well developed and well groomed Nutritional Appearance: well nourished and overweight Orientation: alert, awake and oriented x3 [facility] Head: normal to inspection, no palpable skull fracture, normocephalic and atraumatic Ears: hearing grossly normal bilaterally General nose exam: external nose normal Mouth: oral mucosae normal, lip normal and tongue normal Throat: posterior oropharynx normal Eyes General: appearance normal, both eyes and all related structures Alignment and Position: alignment normal Periorbital: periorbital findings normal Eyelids: eyelids normal Conjunctivae: conjunctivae normal Pupils: PERRL EOM: EOM intact bilaterally Chest Chest: normal inspection of the chest, normal palpation of entire chest wall, no crepitus and no localized rib tenderness Resp Effort & Inspection: normal respiratory effort, able to speak in complete sentences and no respiratory distress Auscultation: clear to auscultation bilaterally, no rales, no rhonchi and no wheezes Cardio Rate: regular rate Rhythm: regular rhythm Heart Sounds: S1 normal and S2 normal GI Inspection: normal to inspection, no abdominal wall ecchymosis, no edema and non-distended Palpation: soft, not firm, no guarding and nontender Back/Spine/Pelvis Thoracic/Lumbar Spine: thoracic and lumbar spine normal to inspection, No thoraco-lumbar spasm and No thoracic spinal tenderness Pelvis: no pain with anterior-posterior compression and no pain with lateral compression Skin General skin exam: no rashes or lesions noted (keratotic lesions face/scalp) Lesions: no lesions Rashes: no rashes Trauma: no lacerations or abrasions Wounds: no wounds Neuro General: patient alert, patient awake, patient oriented x3, gait normal, tone normal and moves all extremities Cranial Nerves: CN's II-XI intact bilaterally Cognition: normal cognition Speech: speech normal Motor: muscle tone normal throughout and strength 5/5 throughout Sensory Exam: no sensory deficits noted (no saddle paresthesias) Extrem General: normal to inspection, full ROM, capillary refill normal, no pedal edema and no calf tenderness Course Vital Signs Vital signs: Vital Signs Temperature 36.6 C 04/19/25 09:10 Pulse 74 04/19/25 09:10 Respiratory Rate 16 04/19/25 09:10 Blood Pressure 162/61 H 04/19/25 09:10 Pulse Oximetry 97 04/19/25 09:10 Temperature 36.6 C 04/19/25 09:10 Temperature Source Oral 04/19/25 09:10 Pulse 78 04/19/25 09:11 Pulse 74 04/19/25 09:11 Respiratory Rate 18 04/19/25 09:11 Blood Pressure 162/61 H 04/19/25 09:11 Blood Pressure Mean 96 04/19/25 09:11 Blood Pressure Position Sitting 04/19/25 09:10 Pulse Oximetry 97 04/19/25 09:11 Oxygen Delivery Method Room Air 04/19/25 09:10 Oxygen Flow Rate 0 04/19/25 09:10 Pain Level 5 04/19/25 09:10 Medical Decision Making Patient is a pleasant 80-year-old gentleman with past medical history significant for SBO, CHF, atrial fibrillation, hypothyroid, chronic V. tach, presenting today via EMS after fall. Patient reports he was walking up a ramp at [facility] when he was trying to change direction and fell backwards. States this was a mechanical fall, remembers the entire thing, no loss of conscious. States that he did immediately strike his head denies any continued headache. Denies any pain at this time. He was immobilized by staff there and subsequently EMS who applied a collar. He denies any numbness or tingling. No weakness although he has not been mobile since the fall. Denies any incontinence, back pain. No visual changes acutely, no nausea or vomiting. Denies any chest pain, shortness of breath GI upset. Patient is chronically anticoagulated on Eliquis which she did take today. On exam, patient appears nontoxic. He is hemodynamically stable. No evidence of significant head injury, no palpable fracture, swelling, discomfort with palpation. He is immobilized in the c-collar. He is 5 out of 5 strength equal in the upper and lower extremities. No saddle paresthesias. No pain with compression of the chest, pelvis. Lung sounds are clear. Abdomen is nontender. No midline tenderness along the CT or L-spine no evidence to suggest trauma in this region. Of note, patient was quite wet as he did fall backwards and dumped his ice water but otherwise no significant finding on exam. Given the patient's anticoagulation, I do feel it is appropriate to obtain imaging of the patient's head and C-spine. He was initially having C-spine per EMS even though he denies pain currently. Will hold off any analgesics as he is denying any pain but will obtain imaging and continue to monitor the patient. I did call his , Clary, at his request for an update. Patient has no indication to suggest neurologic deficit. No injury to chest, abdomen, pelvis to suggest need for imaging in these regions. CT reviewed by myself and radiologist: FINDINGS: Head CT Ventricles and Extra axial spaces: Normal in size and morphology for the patient's age. Hemorrhage: None. Cerebral parenchyma: No evidence of mass or acute infarct. 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 Diffuse white matter changes of microvascular disease. Midline shift: None. Brainstem/Cerebellum: Normal. Calvarium: Normal. Visualized Paranasal sinuses/Mastoids: Mucous retention in both maxillary sinuses, frontal sinuses and ethmoid sinuses. Maxillary and ethmoid cysts sinus surgery. The mastoid air cells are clear. Soft tissues: Unremarkable. Cervical Spine CT The exam is mildly limited by motion. BONES: Vertebral body heights are maintained. Alignment is normal. There is no evidence of acute fracture. Degenerative disc changes and facet degenerative changes are seen . SOFT TISSUES: No paraspinal hematoma. The airway appears intact. No pneumothorax is seen at the lung apices. 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 Sinus disease. C-spine CT: Degenerative changes, no acute abnormality Patient reevaluated by myself. Findings were discussed. C-spine was cleared. No midline tenderness with palpation or with movements. He does have some reported stiffness on the far far lateral sides bilaterally but nothing towards midline. C-spine cleared. Patient will be road tested with nursing staff. Patient was able to get up without assistance, moving well and feels ready for discharge. Arranging for transportation back to health and rehab. To clarify the initial story, patient was in an electric wheelchair, remaining story is correct where patient decided to change direction quickly and he reports that his wheelchair is touchy and will taper over frequently. Questioning if this needs to be adjusted further given the number of falls he had recently. Again, strict return precautions were discussed with the patient. Encourage supportive care. Encourage follow-up with primary care. All his questions and concerns were addressed and he is in agreement this plan. Quality:SDOH Health Related Social Needs: Health related social needs risk of homeless education Health related social needs details Not satisfied at [facility] All Active Problems (Updated 04/19/25 @ 10:35 by STEFANO Rojas) Contusion (Acute) Fall with no significant injury (Acute) Symptomatic anemia (Acute) Splenomegaly (Acute) Liver mass (Acute) Vomiting (Acute) Abdominal pain (Acute) Elevated lactic acid level (Acute) Acute UTI (Acute) Symptomatic bradycardia (Acute) Acute hypokalemia (Acute) Family conflict (Acute) Chest pain in adult (Acute) Fall (Acute) Thrombocytopenia (Chronic) Colostomy care (Acute) Chronic low back pain (Chronic) Hematuria (Acute) Elevated troponin level not due myocardial infarction (Acute) Leukopenia (Acute) Oral candidiasis (Acute) Sepsis syndrome (Acute) Gram-negative bacteremia (Acute) Cellulitis (Acute) Lower urinary obstructive symptom (Acute) Anemia of chronic disease (Acute) Thrombocytopenia (Chronic) Ventricular ectopy (Acute) Sinus bradycardia (Acute) Leukocytosis (Acute) Hypertension (Chronic) Elevated lactic acid level (Acute) CHF (congestive heart failure) (Chronic) No-show for appointment (Acute) Left rotator cuff tear (Acute) Acute UTI (urinary tract infection) (Acute) Weakness (Acute) Non-ST elevation OR (NSTEMI) (Acute) Pre-syncope (Acute) Frequent falls (Acute) Orthostatic hypotension (Acute) Chronic atrial fibrillation (Chronic) Type 2 diabetes mellitus (Chronic) Hypokalemia (Acute) Bradycardia (Acute) Multiple falls (Acute) Acute metabolic encephalopathy (Acute) Medication monitoring encounter (Acute) ANETTE (obstructive sleep apnea) (Chronic) Chest pain (Acute) CHF exacerbation (Acute) CHF (congestive heart failure) (Chronic) EF 25%- 2023 Medical History Chronic heart failure with reduced ejection fraction (HFrEF, <= 40%) Anemia Cirrhosis of liver without ascites Diabetes PAF (paroxysmal atrial fibrillation) Goals of care, counseling/discussion Lactic acidosis UTI (urinary tract infection) Urinary tract infection Advanced care planning/counseling discussion Palliative care encounter Followed by [facility] Bowel obstruction Sepsis Heart failure with reduced ejection fraction Hypothyroidism Small bowel obstruction Lactic acid acidosis Creatinine elevation Acute UTI Anticoagulated COVID Recurrent intestinal obstruction History of colon cancer Chronic anticoagulation Portal hypertension Cirrhosis TIPs placed (?when, [facility]? 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, Dx [facility] as per pt Non-insulin dependent type 2 diabetes mellitus Incontinence Hypertension Scleral icterus Surgical History S/P TIPS (transjugular intrahepatic portosystemic shunt) H/O left hemicolectomy Colostomy in place Social History Smoking/Tobacco Use Status: Former Tobacco Use Smoking risk assessment performed?: Yes Alcohol Intake: former Drug use: Never Substance use type: does not use Housing: [facility] Do you feel safe at home: Yes Do you feel safe in your relationship?: Yes Additional Social history: from [facility]
== END 2025-04-19 10:55 | disposition home or self-care (01) ==
PROVIDERS: Emergency Provider Physician Assistant; PCP Nurse Practitioner Adult Health
DX: S00.80XA Unspecified superficial injury of other part of head, initial encounter (principal); E03.9 Hypothyroidism, unspecified; E11.9 Type 2 diabetes mellitus without complications; I11.0 Hypertensive heart disease with heart failure; I50.22 Chronic systolic (congestive) heart failure; I48.0 Paroxysmal atrial fibrillation; I25.2 Old myocardial infarction; Z93.3 Colostomy status; Z91.81 History of falling; Z79.84 Long term (current) use of oral hypoglycemic drugs; Z79.01 Long term (current) use of anticoagulants; Z87.891 Personal history of nicotine dependence
CPT/HCPCS: 99284; 70450; 72125; 99283

== ENCOUNTER 2025-05-08 09:29 | Observation (INO) | payer OTHER, SELFPAY ==
[2025-05-08] VITALS (22 sets, daily range): BP systolic 145–210; BP diastolic 63–121; PULSE 68–91; RESP 12–21; TEMP 36.5–37.3; O2SAT 90–95
--- NOTE | 2025-05-08 09:30 | RT.EKG_ITS ---
APPROVED REPORT Exam: Resting ECG Reason for Exam: PVC Patient Location: E HR:82 bpm ECG Measurements Heart Rate 82 AXIS WI 278 P 150 QRSd 114 QRS 177 QT 414 T 87 QTc 476 Conclusion Sinus or ectopic atrial rhythm...P axis (-45,135) Multiform ventricular premature complexes...short R-R, variable morphology Prolonged WI interval...WI >220, V-rate 50- 90 Probable lateral infarct, age indeterminate...Q >35mS, T neg, V5-V6 I aVL Anteroseptal infarct, old...Q >40mS, V1-V2
--- NOTE | 2025-05-08 09:30 | DI.RAD_ITS ---
Exam(s) XR PORTABLE CHEST AP EXAM: XR PORTABLE CHEST AP CLINICAL HISTORY: shortness of breath TECHNIQUE: 2D digital imaging was performed. COMPARISON: CR,XR XR PORTABLE CHEST AP from 02/26/2025 FINDINGS: Exam is limited by under penetration. LUNGS: No focal area of consolidation is visible. No pleural abnormality is seen. HEART: Enlarged. Prominence of the pulmonary vasculature. AORTA: Normal diameter. BONES: Unremarkable for age. Soft tissues: Unremarkable. IMPRESSION: Pulmonary vascular prominence and mildly increased interstitial markings, consistent with CHF. The preliminary [facility] report was reviewed. DATA REPOSITORY: RADIATION DOSE DELIVERED:
[2025-05-08 09:45] LABS: Abs Immature Grans 0.02 10^3/uL (0.0-0.06); HCT 24.3 % (40.0-50.0); Immature Grans % 0.4 %; MCH 21.7 pg (27.0-33.0); MCHC 28.0 % (32.0-36.0); MCV 78 fL (80-95); MPV 10.4 fL (8.0-11.0); Platelet Count 109 10^3/uL (130-400); RBC 3.13 10^6/uL (4.36-5.78); RDW 16.7 % (11.8-14.1); RDW-SD 47.3 fL; WBC 5.20 10^3/uL (4.4-10.8)
[2025-05-08 09:46] LABS: HGB 6.8 g/dL (13.5-17.5)
[2025-05-08 10:07] LABS: ALT 23 U/L (16-63); AST 28 U/L (15-37); Albumin 2.6 g/dL (3.4-5.0); Alkaline Phosphatase 172 U/L (46-116); Anion Gap 9.0 mmol/L (3-11); BUN 12 mg/dL (7-18); Bilirubin, Total 1.4 mg/dL (0.2-1.0); CO2 24.0 mmol/L (21.0-32.0); Calcium 8.4 mg/dL (8.5-10.1); Chloride 108 mmol/L (98-107); Estimated GFR 68.71 (mL/min/1.73m2); Glucose 171 mg/dL (74-106); Magnesium 2.0 mg/dL (1.8-2.4); NT-proBNP 1013 pg/mL (<300); Potassium 4.2 mmol/L (3.5-5.1); Sodium 141 mmol/L (136-145); Total Protein 5.9 g/dL (6.4-8.2)
[2025-05-08 10:09] LABS: Troponin I 82 ng/L (<or=76)
[2025-05-08 10:38] LABS: INR 1.2 (0.9-1.1); Prothrombin Time 11.9 sec (9.1-11.1)
[2025-05-08 10:48] LABS: PTT Activated 25.4 sec (20.6-30.2)
--- NOTE | 2025-05-08 10:59 | W.ED.GENAD ---
Discharge Plan Disposition Patient Disposition: Admit to [facility] Condition: Serious Discharge Details Clinical Impression: CHF exacerbation, Anemia Primary Care Provider: Maryann Whitt ED Provider: Oracio Ferreira Home Meds and New Rx's Prescriptions: No Action pantoprazole 40 mg Tablet,Delayed Release (Dr/Ec) 40 mg PO DAILY Eliquis 5 mg Tablet 5 mg PO BID Patient Comments: taking per pt nitroglycerin 0.4 mg Tablet, Sublingual 0.4 mg sublingual Q5 MIN PRN X3 PRNQty: 30 0RF rifaximin 550 mg Tablet 550 mg PO BID prazosin 5 mg capsule 10 mg PO QPM tamsulosin 0.4 mg Capsule 0.4 mg PO DAILY furosemide 20 mg tablet 40 mg PO DAILY metformin 500 mg tablet extended release 24hr 1,000 mg PO BID bisacodyl [Dulcolax (bisacodyl)] 10 mg suppository 10 mg OH DAILY PRN ondansetron 4 mg tablet,disintegrating 4 mg PO Q6H PRN potassium chloride 20 mEq tablet extended release 20 meq PO DAILY spironolactone [Aldactone] 25 mg tablet 12.5 mg PO DAILY venlafaxine [Effexor XR] 75 mg capsule,extended release 24hr 75 mg PO DAILY Patient Comments: takes w/150mg capsule for total dose of 225mg daily lactulose 20 gram/30 mL Solution 15 ml PO TID Rx Instructions: to maintain colostomy output of 3-4 bags per day diclofenac sodium [Arthritis Pain (diclofenac)] 1 % gel 2 g topical TID Rx Instructions: apply to single elbow, wrist or hand; for hand includes palm/fingers/back of hand empagliflozin 25 mg Tablet 25 mg PO DAILY levothyroxine 200 mcg Tablet 100 mcg PO QAM Qty: 0 0RF venlafaxine 150 mg capsule,extended release 24hr 150 mg PO DAILY acetaminophen [Tylenol] 325 mg Capsule 650 mg PO Q6H MDD 3000 PRN losartan [Cozaar] 50 mg tablet 50 mg PO DAILY HPI General Mode of arrival: EMS. Date/Time Provider Initiated Documentation: 05/08/25 09:36. Limitations to Documentation: other (poor historian). Information obtained by: patient and old records reviewed. HPI Narrative: HISTORY OF PRESENT ILLNESS 80-year-old male with multiple medical problems including history of CHF, diabetes, coronary artery disease, ventricular tachycardia, colorectal cancer with remote colectomy and ostomy, presents with dyspnea. Reports dyspnea during physical activities, such as walking or descending stairs. Today, felt faint and struggled to breathe after turning a valve and climbing stairs. noticed labored breathing and called for medical assistance. No pain or discomfort during episode. Episodes have occurred for years, typically managed by resting in recliner for about 6 minutes. Used to manage episodes with nebulizer but unable to obtain one recently. Mentions occasional abnormal heartbeats and tightness, unsure if occurred during today's episode. History of heart arrhythmias, compliant with medication regimen, did not take medications this morning. Noticed increased leg swelling since yesterday. Stoma bleeds upon contact, had full colectomy due to colorectal cancer. Unaware of reason for low blood counts. Had tube inserted into arm and eye due to infection. [facility]. Ostomy for 43 years. Reports poor sleep quality, did not sleep last night. Patient currently asymptomatic. No chest pain or shortness of breath at this time. PAST SURGICAL HISTORY: Full colectomy due to colorectal cancer. Related Data Home Medications ?Medication ?Instructions ?Recorded ?Confirmed apixaban 5 mg tablet (Eliquis) 5 mg PO BID 11/08/22 05/08/25 pantoprazole 40 mg tablet,delayed 40 mg PO DAILY 11/08/22 05/08/25 release nitroglycerin 0.4 mg sublingual 0.4 mg sublingual Q5 MIN PRN X3 02/10/23 05/08/25 tablet PRN #30 tabs empagliflozin 25 mg tablet 25 mg PO DAILY 04/09/23 05/08/25 levothyroxine 200 mcg tablet 100 mcg (1/2 x 200 mcg) PO QAM #0 04/10/23 05/08/25 tabs rifaximin 550 mg tablet 550 mg PO BID 07/07/23 05/08/25 venlafaxine 150 mg 150 mg PO DAILY 03/05/24 05/08/25 capsule,extended release 24 hr acetaminophen 325 mg capsule 650 mg PO Q6H PRN 05/12/24 05/08/25 (Tylenol) prazosin 5 mg capsule 10 mg PO QPM 08/04/24 05/08/25 tamsulosin 0.4 mg capsule 0.4 mg PO DAILY 08/04/24 05/08/25 furosemide 20 mg tablet 40 mg PO DAILY 01/17/25 05/08/25 metformin 500 mg tablet,extended 1,000 mg PO BID 01/17/25 05/08/25 release 24hr (osmotic) bisacodyl 10 mg rectal suppository 10 mg OH DAILY PRN 02/26/25 05/08/25 (Dulcolax (bisacodyl)) lactulose 20 gram/30 mL oral 15 ml PO TID 02/26/25 05/08/25 solution ondansetron 4 mg disintegrating 4 mg PO Q6H PRN 02/26/25 05/08/25 tablet potassium chloride 20 mEq 20 meq PO DAILY 02/26/25 05/08/25 tablet,extended release spironolactone 25 mg tablet 12.5 mg PO DAILY 02/26/25 05/08/25 (Aldactone) venlafaxine 75 mg capsule,extended 75 mg PO DAILY 02/26/25 05/08/25 release 24 hr (Effexor XR) diclofenac sodium 1 % topical gel 2 g topical TID 04/02/25 05/08/25 (Arthritis Pain (diclofenac)) losartan 50 mg tablet (Cozaar) 50 mg PO DAILY 04/19/25 05/08/25 Previous Rx's ?Medication ?Instructions ?Recorded nitroglycerin 0.4 mg sublingual 0.4 mg sublingual Q5 MIN PRN X3 02/10/23 tablet PRN #30 tabs levothyroxine 200 mcg tablet 100 mcg (1/2 x 200 mcg) PO QAM #0 04/10/23 tabs Allergies Allergy/AdvReac Type Severity Reaction Status Date / Time Penicillins Allergy Mild Itching Verified 05/08/25 09:46 mussels Allergy Anaphylaxis Verified 05/08/25 09:46 morphine AdvReac Severe vomiting Verified 05/08/25 09:46 General Stated Complaint: SOB ANNA: 3 Review of Systems All systems reviewed & are unremarkable except as noted in HPI and below Constitutional Constitutional: Denies fever(s) Cardiovascular Cardiovascular: Denies chest pain Exam Const General: cooperative and no acute distress HENMT Mouth: moist mucous membranes Eyes Conjunctivae: normal conjunctivae Sclera: normal sclerae Resp Auscultation: clear to auscultation bilaterally, no rales, no rhonchi and no wheezes Cardio Rate: regular rate and not tachycardic Rhythm: regular rhythm and abnormal rhythm with ectopic beats Heart Sounds: murmur systolic III/ GI Palpation: soft, not firm, no guarding, no masses, not rigid and nontender Skin General skin exam: no rashes or lesions noted Neuro General: patient alert, patient awake, patient oriented x3 and tone normal Extrem General: edema Laterality: bilateral (2+ to knees) Course Vital Signs Vital signs: Vital Signs Pulse 84 05/08/25 09:34 Respiratory Rate 16 05/08/25 09:34 Blood Pressure 160/78 H 05/08/25 09:34 Pulse Oximetry 93 05/08/25 09:34 Pulse 84 05/08/25 09:34 Respiratory Rate 16 05/08/25 10:31 Respiratory Effort Normal 05/08/25 10:31 Respiratory Depth Normal 05/08/25 10:31 Respiratory Pattern Normal 05/08/25 10:31 Blood Pressure 160/78 H 05/08/25 09:34 Pulse Oximetry 93 05/08/25 09:34 Oxygen Delivery Method Room Air 05/08/25 09:34 Oxygen Flow Rate 0 05/08/25 09:34 Lab/Test Results Lab/Test Results: Laboratory Tests Range/Units 05/08/25 05/08/25 09:38 10:04 WBC (4.4-10.8) 10^3/uL 5.20 RBC (4.36-5.78) 10^6/uL 3.13 L Hgb (13.5-17.5) g/dL 6.8 L* Hct (40.0-50.0) % 24.3 L MCV (80-95) fL 78 L MCH (27.0-33.0) pg 21.7 L MCHC (32.0-36.0) % 28.0 L RDW (11.8-14.1) % 16.7 H Plt Count (130-400) 10^3/uL 109 L MPV (8.0-11.0) fL 10.4 Immature Gran % % 0.4 Neutrophils % % 67.1 Lymphocytes % % 14.4 Monocytes % % 10.8 Eosinophils % % 6.7 Basophils % % 0.6 Nucleated RBC % (0.0-0.3) % 0.0 Absolute Neutrophils (1.2-6.7) 10^3/uL 3.49 Absolute Lymphocytes (1.2-3.4) 10^3/uL 0.75 L Absolute Monocytes (0.1-0.8) 10^3/uL 0.56 Absolute Eosinophils (0.0-0.7) 10^3/uL 0.35 Absolute Basophils (0.0-0.2) 10^3/uL 0.03 PT (9.1-11.1) sec 11.9 H INR (0.9-1.1) 1.2 H APTT (20.6-30.2) sec 25.4 Sodium (136-145) mmol/L 141 Potassium (3.5-5.1) mmol/L 4.2 Chloride (98-107) mmol/L 108 H Carbon Dioxide (21.0-32.0) mmol/L 24.0 Anion Gap (3-11) mmol/L 9.0 BUN (7-18) mg/dL 12 Creatinine (0.70-1.30) mg/dL 1.1 Est GFR (CKD-EPI 2020) (mL/min/1.73m2) 68.71 Glucose (74-106) mg/dL 171 H Calcium (8.5-10.1) mg/dL 8.4 L Magnesium (1.8-2.4) mg/dL 2.0 Total Bilirubin (0.2-1.0) mg/dL 1.4 H AST (15-37) U/L 28 ALT (16-63) U/L 23 Alkaline Phosphatase (46-116) U/L 172 H Troponin I (<or=76) ng/L 82 H* NT-Pro-B Natriuret Pep (<300) pg/mL 1013 H Total Protein (6.4-8.2) g/dL 5.9 L Albumin (3.4-5.0) g/dL 2.6 L ABO/Rh O Positive Antibody Screen NEGATIVE Crossmatch See Detail Medical Decision Making ASSESSMENT AND PLAN Initial Assessment: Acute exacerbation of congestive heart failure likely complicated by frequent PVCs. Anemia contributing to symptoms. Etiology of anemia unclear. Differential Diagnosis: - Congestive heart failure: Frequent PVCs, elevated BNP, cardiomegaly on chest x-ray. Cardiac workup planned. Furosemide 20 mg IV administered. - Anemia: Initial labs reveal anemia. Etiology unclear. Further diagnostic workup planned. One unit of blood transfused. - Premature ventricular contractions (PVCs): Noted on EKG. Cardiac workup planned. - Edema: 2+ pitting edema up to knees bilaterally. Furosemide 20 mg IV administered. ED Course: - Labs reviewed. BNP 1000. Troponin initially 82, repeat at 0100 hours 87. - One unit of blood transfused. - Furosemide 20 mg IV administered. - Focus performed. B-lines consistent with acute CHF exacerbation. - Portable chest x-ray reviewed. Cardiomegaly, diffuse cardiopulmonary vascular congestion noted. - EKG was reviewed and interpreted by me: Please report, sinus 82 bpm, prolonged OH interval, multiple premature ventricular contractions. - Troponin elevated slightly initially and stable still slightly elevated on repeat. Suspect demand ischemia with underlying disease, unlikely ACS given presentation. Plan to continue to trend trop. Final Assessment: Acute exacerbation of congestive heart failure likely complicated by frequent PVCs. Anemia contributing to symptoms. Furosemide 20 mg IV and blood transfusion administered. Chest x-ray shows cardiomegaly and vascular congestion. Clinical Impression: - Acute exacerbation of congestive heart failure - Anemia, severe requiring blood transfusion - Premature ventricular contractions (PVCs) - Edema - elevated troponin Disposition: - Admission recommended for further management. This document was written with the assistance of KAJAL Conway. The patient consented to its use. Lab Data Lab results reviewed: Yes I reviewed the patient's lab results. Labs: Laboratory Tests Range/Units 05/08/25 05/08/25 05/08/25 09:38 10:04 10:35 WBC (4.4-10.8) 10^3/uL 5.20 RBC (4.36-5.78) 10^6/uL 3.13 L Hgb (13.5-17.5) g/dL 6.8 L* Hct (40.0-50.0) % 24.3 L MCV (80-95) fL 78 L MCH (27.0-33.0) pg 21.7 L MCHC (32.0-36.0) % 28.0 L RDW (11.8-14.1) % 16.7 H Plt Count (130-400) 10^3/uL 109 L MPV (8.0-11.0) fL 10.4 Immature Gran % % 0.4 Neutrophils % % 67.1 Lymphocytes % % 14.4 Monocytes % % 10.8 Eosinophils % % 6.7 Basophils % % 0.6 Nucleated RBC % (0.0-0.3) % 0.0 Absolute Neutrophils (1.2-6.7) 10^3/uL 3.49 Absolute Lymphocytes (1.2-3.4) 10^3/uL 0.75 L Absolute Monocytes (0.1-0.8) 10^3/uL 0.56 Absolute Eosinophils (0.0-0.7) 10^3/uL 0.35 Absolute Basophils (0.0-0.2) 10^3/uL 0.03 PT (9.1-11.1) sec 11.9 H INR (0.9-1.1) 1.2 H APTT (20.6-30.2) sec 25.4 Sodium (136-145) mmol/L 141 Potassium (3.5-5.1) mmol/L 4.2 Chloride (98-107) mmol/L 108 H Carbon Dioxide (21.0-32.0) mmol/L 24.0 Anion Gap (3-11) mmol/L 9.0 BUN (7-18) mg/dL 12 Creatinine (0.70-1.30) mg/dL 1.1 Est GFR (CKD-EPI 2020) (mL/min/1.73m2) 68.71 Glucose (74-106) mg/dL 171 H Calcium (8.5-10.1) mg/dL 8.4 L Magnesium (1.8-2.4) mg/dL 2.0 Total Bilirubin (0.2-1.0) mg/dL 1.4 H AST (15-37) U/L 28 ALT (16-63) U/L 23 Alkaline Phosphatase (46-116) U/L 172 H Troponin I (<or=76) ng/L 82 H* 87 H* NT-Pro-B Natriuret Pep (<300) pg/mL 1013 H Total Protein (6.4-8.2) g/dL 5.9 L Albumin (3.4-5.0) g/dL 2.6 L ABO/Rh O Positive Antibody Screen NEGATIVE Crossmatch See Detail Quality:SDOH Health Related Social Needs: Health related social needs risk of homeless education Health related social needs details Not satisfied at [facility] Critical Care Time Critical Care Time Critical Care Time: Yes Total Critical Care Time: 45 Attestation: Due to a high probability of clinically significant, life threatening deterioration, the patient required my highest level of preparedness to intervene emergently and I personally spent this critical care time directly and personally managing the patient. This critical care time included obtaining a history; examining the patient; pulse oximetry; ordering and review of studies; arranging urgent treatment with development of a management plan; evaluation of patient's response to treatment; frequent reassessment; and, discussions with other providers. This critical care time was performed to assess and manage the high probability of imminent, life-threatening deterioration that could result in multi-organ failure. It was exclusive of separately billable procedures and treating other patients and teaching time. Please see MDM section and the rest of the note for further information on patient assessment and treatment. PFSH All Active Problems (Updated 05/08/25 @ 11:28 by Oracio Ferreira MD) Anemia (Chronic) Contusion (Acute) Splenomegaly (Acute) Liver mass (Acute) Vomiting (Acute) Abdominal pain (Acute) Elevated lactic acid level (Acute) Acute UTI (Acute) Symptomatic bradycardia (Acute) Acute hypokalemia (Acute) Family conflict (Acute) Chest pain in adult (Acute) Fall (Acute) Thrombocytopenia (Chronic) Colostomy care (Acute) Chronic low back pain (Chronic) Hematuria (Acute) Elevated troponin level not due myocardial infarction (Acute) Leukopenia (Acute) Oral candidiasis (Acute) Sepsis syndrome (Acute) Gram-negative bacteremia (Acute) Cellulitis (Acute) Lower urinary obstructive symptom (Acute) Anemia of chronic disease (Acute) Thrombocytopenia (Chronic) Ventricular ectopy (Acute) Sinus bradycardia (Acute) Leukocytosis (Acute) Hypertension (Chronic) Elevated lactic acid level (Acute) CHF (congestive heart failure) (Chronic) No-show for appointment (Acute) Left rotator cuff tear (Acute) Acute UTI (urinary tract infection) (Acute) Weakness (Acute) Non-ST elevation [place] (NSTEMI) (Acute) Pre-syncope (Acute) Frequent falls (Acute) Orthostatic hypotension (Acute) Chronic atrial fibrillation (Chronic) Type 2 diabetes mellitus (Chronic) Hypokalemia (Acute) Bradycardia (Acute) Multiple falls (Acute) Acute metabolic encephalopathy (Acute) Medication monitoring encounter (Acute) ANETTE (obstructive sleep apnea) (Chronic) Chest pain (Acute) CHF exacerbation (Acute) CHF (congestive heart failure) (Chronic) EF 25%- 2023 Medical History Chronic heart failure with reduced ejection fraction (HFrEF, <= 40%) Anemia Cirrhosis of liver without ascites Diabetes PAF (paroxysmal atrial fibrillation) Goals of care, counseling/discussion Lactic acidosis UTI (urinary tract infection) Urinary tract infection Advanced care planning/counseling discussion Palliative care encounter Followed by [facility] Bowel obstruction Sepsis Heart failure with reduced ejection fraction Hypothyroidism Small bowel obstruction Lactic acid acidosis Creatinine elevation Acute UTI Anticoagulated COVID Recurrent intestinal obstruction History of colon cancer Chronic anticoagulation Portal hypertension Cirrhosis TIPs placed (?when, [facility]? 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, Dx [facility] as per pt Non-insulin dependent type 2 diabetes mellitus Incontinence Hypertension Scleral icterus Surgical History S/P TIPS (transjugular intrahepatic portosystemic shunt) H/O left hemicolectomy Colostomy in place Social History Smoking/Tobacco Use Status: Former Tobacco Use Smoking risk assessment performed?: Yes Alcohol Intake: former Drug use: Never Substance use type: does not use Housing: longterm Do you feel safe at home: Yes Do you feel safe in your relationship?: Yes Additional Social history: from [facility] POCUS Exam (ED) Limited Thoracic Lung Exam DATE OF EXAM: 05/08/25 TIME OF EXAM: 11:00 PROVIDER THAT PERFORMED THE STUDY: Oracio Ferreira IS THIS A REPEAT EXAM DURING THIS ENCOUNTER: No REASON FOR EXAM: Shortness ofBreath VISUALIZED STRUCTURES: right anterior, left anterior, right lateral and Other structure: cardiac PERTINENT FINDINGS/IMPRESSION: B-lines/right side DIFFERENTIAL DIAGNOSES: chf INCIDENTAL FINDINGS: poor cardiac output Exam complete
[2025-05-08 11:03] LABS: Troponin I 87 ng/L (<or=76)
--- NOTE | 2025-05-08 11:20 | DI.VRAD_ITS ---
PROCEDURE INFORMATION: Exam: XR Chest Exam date and time: 05/08/2025 10:17 AM Age: 80 years old Clinical indication: Shortness of breath TECHNIQUE: Imaging protocol: Radiologic exam of the chest. Views: 1 view. COMPARISON: CR XR PORTABLE CHEST AP 02/26/2025 8:52 PM FINDINGS: Lungs: Venous congestion Pleural spaces: Small bilateral pleural effusions Heart/Mediastinum: Stable cardiomegaly. Bones/joints: Unremarkable. IMPRESSION: Congestive heart failure Dictated and Authenticated by: Alice Davis MD. Orderin Hanna Narayanan MD
[2025-05-08] MEDS: Furosemide 20 MG/2 ML VIAL IVP (11:42)
--- NOTE | 2025-05-08 12:11 | W.PM.HP.N ---
Date of service: 05/08/25 Time of Service: 12:11 Assessment and Plan Assessment and plan (1) Anemia associated with acute blood loss: Status: Acute Assessment and plan: Hgb 6.4 on arrival, s/p PRBC 1u, hgb improved to 8.6 Active bleeding from stoma, intermittent, likely cause Requested general surgery consult Monitor morning CBC Evening dose of apixaban 5 given inadvertently, now discontinued - - - - - (2) Acute on chronic HFrEF (heart failure with reduced ejection fraction): Status: Acute Assessment and plan: March 01 echo showing EF 35% with global hypokinesis, mild/mod atrial dilation On presentation, worsening exercise dyspnea with elevated BNP and bilateral lower extremity edema Likely exacerbated by anemia and cirrhosis Likely causing demand ischemia with troponin elevation Furosemide 20 IV given in ED Continue home furosemide 40 PO, continue ARB Daily weights - - - - - (3) Elevated troponin level not due myocardial infarction: Status: Acute Assessment and plan: Troponin 82 on arrival without EKG changes High of 97, trending down Will check again with morning labs - - - - - (4) History of creation of ostomy: Status: Acute Assessment and plan: Reported total colectomy, year unknown Ostomy is clearly leaking stool, and per patient report, he has daily bleeding Discussed with Dr Peralta who will evaluate May 09, clears only after midnight - - - - - (5) Chronic atrial fibrillation: Status: Chronic Assessment and plan: On apixaban, held (6) Thrombocytopenia: Status: Chronic Assessment and plan: Chronic, platelet count in the 100's (7) Diabetes mellitus treated with oral medication: Status: Chronic Assessment and plan: A1C 6.8 in mid-March, home regimen empagliflozin, metformin, holding both SSI sensitive (8) Cirrhosis of liver without ascites: Assessment and plan: History of hepatic encephalopathy, monitor for mental status changes Continue home furosemide, spironolactone, rifaximin (9) Hypothyroidism: Assessment and plan: Continue home levothyroxine (10) Major depression, recurrent, chronic: Status: Chronic Assessment and plan: Continue home venlafaxine (11) BPH (benign prostatic hyperplasia): Status: Chronic Assessment and plan: Continue home tamsulosin (12) Chronic GERD: Status: Chronic Assessment and plan: Continue home pantoprazole (13) Severe obesity (BMI >= 40): Status: Chronic History of Present Illness History of Present Illness Chief Complaint: shortness of breath with exertion Narrative: Osmar Orellana is a 80 year old man presenting May 08 with worsening of chronic shortness of breath with exertion. For a couple of days his legs have been swelling and he has been feeling faint. Today, a faucet valve and 7 stairs made him sufficiently short of breath that he had to stop and gasp for air. No recent illness, no sick contacts. He has had difficulty sleeping and has some nights when he doesn't sleep at all. He reports taking his medications faithfully. He also reports chronic bleeding from his ostomy site, about a teaspoon of red blood in the morning, with leaking of stool, and this has been going on for some months. He feels a divot in the rim of the stoma and thinks it is causing the leak. No chest pain, no abdominal pain, no N/V/D. In the ED he was hypertensive 160/78 and tachycardic 91. Severe anemia with hemoglobin 6.4; blood transfusion 1u was initiated. Troponin elevated in the 's, BNP 1013. PMH: HF, PAF, HTN, IDDM, CAD, colorectal cancer s/p colectomy and ostomy, cirrhosis s/p TIPS, CKD PFSH All Active Problems (Updated 05/09/25 @ 00:18 by Silver Waters MD) Chronic GERD (Chronic) BPH (benign prostatic hyperplasia) (Chronic) Major depression, recurrent, chronic (Chronic) Severe obesity (BMI >= 40) (Chronic) Diabetes mellitus treated with oral medication (Chronic) Anemia associated with acute blood loss (Acute) History of creation of ostomy (Acute) Acute on chronic HFrEF (heart failure with reduced ejection fraction) (Acute) Anemia (Chronic) Contusion (Acute) Splenomegaly (Acute) Liver mass (Acute) Vomiting (Acute) Abdominal pain (Acute) Elevated lactic acid level (Acute) Acute UTI (Acute) Symptomatic bradycardia (Acute) Acute hypokalemia (Acute) Family conflict (Acute) Chest pain in adult (Acute) Fall (Acute) Thrombocytopenia (Chronic) Colostomy care (Acute) Chronic low back pain (Chronic) Hematuria (Acute) Elevated troponin level not due myocardial infarction (Acute) Leukopenia (Acute) Oral candidiasis (Acute) Sepsis syndrome (Acute) Gram-negative bacteremia (Acute) Cellulitis (Acute) Lower urinary obstructive symptom (Acute) Anemia of chronic disease (Acute) Thrombocytopenia (Chronic) Ventricular ectopy (Acute) Sinus bradycardia (Acute) Leukocytosis (Acute) Hypertension (Chronic) Elevated lactic acid level (Acute) CHF (congestive heart failure) (Chronic) No-show for appointment (Acute) Left rotator cuff tear (Acute) Acute UTI (urinary tract infection) (Acute) Weakness (Acute) Non-ST elevation GA (NSTEMI) (Acute) Pre-syncope (Acute) Frequent falls (Acute) Orthostatic hypotension (Acute) Chronic atrial fibrillation (Chronic) Type 2 diabetes mellitus (Chronic) Hypokalemia (Acute) Bradycardia (Acute) Multiple falls (Acute) Acute metabolic encephalopathy (Acute) Medication monitoring encounter (Acute) ANETTE (obstructive sleep apnea) (Chronic) Chest pain (Acute) CHF exacerbation (Acute) CHF (congestive heart failure) (Chronic) EF 25%- 2023 Medical History Chronic heart failure with reduced ejection fraction (HFrEF, <= 40%) Anemia Cirrhosis of liver without ascites Diabetes PAF (paroxysmal atrial fibrillation) Goals of care, counseling/discussion Lactic acidosis UTI (urinary tract infection) Urinary tract infection Advanced care planning/counseling discussion Palliative care encounter Followed by [facility] Bowel obstruction Sepsis Heart failure with reduced ejection fraction Hypothyroidism Small bowel obstruction Lactic acid acidosis Creatinine elevation Acute UTI Anticoagulated COVID Recurrent intestinal obstruction History of colon cancer Chronic anticoagulation Portal hypertension Cirrhosis TIPs placed (?when, 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, Dx [facility] as per pt Non-insulin dependent type 2 diabetes mellitus Incontinence Hypertension Scleral icterus Surgical History S/P TIPS (transjugular intrahepatic portosystemic shunt) H/O left hemicolectomy Colostomy in place Social History Smoking/Tobacco Use Status: Former Tobacco Use Smoking risk assessment performed?: Yes Alcohol Intake: former Drug use: Never Substance use type: does not use Housing: house Do you feel safe at home: Yes Do you feel safe in your relationship?: Yes Additional Social history: from [facility] Meds Allergies and Home Medications Allergies Allergy/AdvReac Type Severity Reaction Status Date / Time Penicillins Allergy Mild Itching Verified 05/08/25 09:46 mussels Allergy Anaphylaxis Verified 05/08/25 09:46 morphine AdvReac Severe vomiting Verified 05/08/25 09:46 Home Medications ?Medication ?Instructions ?Recorded ?Confirmed ?Type apixaban 5 mg tablet (Eliquis) 5 mg PO BID 11/08/22 05/08/25 History pantoprazole 40 mg tablet,delayed 40 mg PO DAILY 11/08/22 05/08/25 History release nitroglycerin 0.4 mg sublingual 0.4 mg sublingual Q5 MIN PRN X3 02/10/23 05/08/25 Rx tablet PRN #30 tabs empagliflozin 25 mg tablet 25 mg PO DAILY 04/09/23 05/08/25 History levothyroxine 200 mcg tablet 100 mcg (1/2 x 200 mcg) PO QAM #0 04/10/23 05/08/25 Rx tabs rifaximin 550 mg tablet 550 mg PO BID 07/07/23 05/08/25 History venlafaxine 150 mg 150 mg PO DAILY 03/05/24 05/08/25 History capsule,extended release 24 hr acetaminophen 325 mg capsule 650 mg PO Q6H PRN 05/12/24 05/08/25 History (Tylenol) prazosin 5 mg capsule 10 mg PO QPM 08/04/24 05/08/25 History tamsulosin 0.4 mg capsule 0.4 mg PO DAILY 08/04/24 05/08/25 History furosemide 20 mg tablet 40 mg PO DAILY 01/17/25 05/08/25 History metformin 500 mg tablet,extended 1,000 mg PO BID 01/17/25 05/08/25 History release 24hr (osmotic) bisacodyl 10 mg rectal suppository [address] DAILY PRN 02/26/25 05/08/25 History (Dulcolax (bisacodyl)) lactulose 20 gram/30 mL oral 15 ml PO TID 02/26/25 05/08/25 History solution ondansetron 4 mg disintegrating 4 mg PO Q6H PRN 02/26/25 05/08/25 History tablet potassium chloride 20 mEq 20 meq PO DAILY 02/26/25 05/08/25 History tablet,extended release spironolactone 25 mg tablet 12.5 mg PO DAILY 02/26/25 05/08/25 History (Aldactone) venlafaxine 75 mg capsule,extended 75 mg PO DAILY 02/26/25 05/08/25 History release 24 hr (Effexor XR) diclofenac sodium 1 % topical gel 2 g topical TID 04/02/25 05/08/25 History (Arthritis Pain (diclofenac)) losartan 50 mg tablet (Cozaar) 50 mg PO DAILY 04/19/25 05/08/25 History Exam Narrative Exam Narrative: General: This is a pleasant man, tired-appearing but in no distress HEENT: Normocephalic, atraumatic CV: RRR, systolic murmur, 2+ BLE edema Resp: CTAB GI: NTND. Ostomy site wet with stool that is leaking primarily to the left of the stoma. Neuro: Awake, alert, no focal deficits Results Imaging Imaging Studies: * * * * * EXAM: XR PORTABLE CHEST AP IMPRESSION: Pulmonary vascular prominence and mildly increased interstitial markings, consistent with CHF. Dictated By: Elodia Giron M.D. 05/08/25 1149 * * * * Labs 05/08/25 15:50 05/08/25 09:38 Labs: Laboratory Results - last 24 hr 05/08/25 05/08/25 05/08/25 09:38 10:04 10:35 WBC 5.20 RBC 3.13 L Hgb 6.8 L* Hct 24.3 L MCV 78 L MCH 21.7 L MCHC 28.0 L RDW 16.7 H Plt Count 109 L MPV 10.4 Immature Gran % 0.4 Neutrophils % 67.1 Lymphocytes % 14.4 Monocytes % 10.8 Eosinophils % 6.7 Basophils % 0.6 Nucleated RBC % 0.0 Absolute Neutrophils 3.49 Absolute Lymphocytes 0.75 L Absolute Monocytes 0.56 Absolute Eosinophils 0.35 Absolute Basophils 0.03 PT 11.9 H INR 1.2 H APTT 25.4 Sodium 141 Potassium 4.2 Chloride 108 H Carbon Dioxide 24.0 Anion Gap 9.0 BUN 12 Creatinine 1.1 Est GFR (CKD-EPI 2020) 68.71 Glucose 171 H Calcium 8.4 L Magnesium 2.0 Total Bilirubin 1.4 H AST 28 ALT 23 Alkaline Phosphatase 172 H Troponin I 82 H* 87 H* NT-Pro-B Natriuret Pep 1013 H Total Protein 5.9 L Albumin 2.6 L ABO/Rh O Positive Antibody Screen NEGATIVE Crossmatch See Detail Last Vital Signs Temp 36.9 C 05/08/25 11:58 Pulse 83 05/08/25 11:58 Resp 16 05/08/25 11:58 BP 173/82 H 05/08/25 11:58 Pulse Ox 92 05/08/25 11:58 Time Spent Time spent with Patient: 55-74 minutes Time was spent: preparing to see the patient(eg.review tests), obtaining and/or reviewing separately otained hiistory, ordering medications,tests, procedures, referring, communicating with other health home care giver, indepentently interpreting results, counseling the patient and care coordination
[2025-05-08 13:46] LABS: Troponin I 97 ng/L (<or=76)
[2025-05-08] MEDS: Lactulose 20 GM/30 ML CUP 10 GM PO ×2 (14:28→20:10)
--- NOTE | 2025-05-08 14:40 | W.PC.ACHO ---
Registration Status: ADM SMITA Primary Language: Preferred Language: ED Information & Data Chief Complaint SOB 05/08/25 11:02 Triage Note SOB after walking upstairs 05/08/25 09:34 says it takes 6 mins + to recover from episodes, on going issue Medical / Surgical History (Last Reviewed 05/08/25 @ 11:22 by Oracio Ferreira MD) Chronic heart failure with reduced ejection fraction (HFrEF, <= 40%) Anemia Cirrhosis of liver without ascites Diabetes PAF (paroxysmal atrial fibrillation) Goals of care, counseling/discussion Lactic acidosis UTI (urinary tract infection) Urinary tract infection Advanced care planning/counseling discussion Palliative care encounter Bowel obstruction Sepsis Heart failure with reduced ejection fraction Hypothyroidism Small bowel obstruction Lactic acid acidosis Creatinine elevation Acute UTI Anticoagulated COVID Recurrent intestinal obstruction History of colon cancer Chronic anticoagulation Portal hypertension Cirrhosis Confusion Colon cancer Depression Endocarditis Non-insulin dependent type 2 diabetes mellitus Incontinence Hypertension Scleral icterus (Last Reviewed 05/08/25 @ 11:22 by Oracio Ferreira MD) S/P TIPS (transjugular intrahepatic portosystemic shunt) H/O left hemicolectomy Colostomy in place Most Recent Vital Signs Temperature 37.3 C 05/08/25 14:06 Pulse 83 05/08/25 14:06 Pulse Rhythm Irregular 05/08/25 14:06 Pulse 86 05/08/25 13:01 Respiratory Rate 21 05/08/25 14:06 Respiratory Effort Short of Breath 05/08/25 14:06 Respiratory Depth Normal 05/08/25 14:06 Respiratory Pattern Normal 05/08/25 14:06 Blood Pressure 180/74 H 05/08/25 13:22 Blood Pressure Mean 112 05/08/25 13:01 Pulse Oximetry 94 05/08/25 14:06 Oxygen Delivery Method Room Air 05/08/25 14:06 Oxygen Flow Rate 0 05/08/25 14:06 Allergies Penicillins Allergy (Mild, Verified 05/08/25 09:46) Itching mussels Allergy (Verified 05/08/25 09:46) Anaphylaxis morphine Adverse Reaction (Severe, Verified 05/08/25 09:46) vomiting Precautions Isolation Standard precaution 05/08/25 10:31 Active Medications Generic Name Dose Route Start Last Admin Trade Name Freq PRN Reason Stop Dose Admin Lactulose 10 gm 05/08/25 14:00 05/08/25 14:28 Lactulose 20 Gm/30 Ml Cup PO 10 gm TID MAN Administration IV IV Catheter Type [Antecubital] Saline Lock IV Catheter Gauge [Antecubital 18 ] Diagnostics 05/08/25 05/08/25 05/08/25 Range/Units 13:07 10:35 10:04 WBC (4.4-10.8) 10^3/uL RBC (4.36-5.78) 10^6/uL Hgb (13.5-17.5) g/dL Hct (40.0-50.0) % MCV (80-95) fL MCH (27.0-33.0) pg MCHC (32.0-36.0) % RDW (11.8-14.1) % Plt Count (130-400) 10^3/uL MPV (8.0-11.0) fL Immature Gran % % Neutrophils % % Lymphocytes % % Monocytes % % Eosinophils % % Basophils % % Nucleated RBC % (0.0-0.3) % Absolute Neutrophils (1.2-6.7) 10^3/uL Absolute Lymphocytes (1.2-3.4) 10^3/uL Absolute Monocytes (0.1-0.8) 10^3/uL Absolute Eosinophils (0.0-0.7) 10^3/uL Absolute Basophils (0.0-0.2) 10^3/uL PT (9.1-11.1) sec INR (0.9-1.1) APTT (20.6-30.2) sec Sodium (136-145) mmol/L Potassium (3.5-5.1) mmol/L Chloride (98-107) mmol/L Carbon Dioxide (21.0-32.0) mmol/L Anion Gap (3-11) mmol/L BUN (7-18) mg/dL Creatinine (0.70-1.30) mg/dL Est GFR (CKD-EPI 2020) (mL/min/1.73m2) Glucose (74-106) mg/dL Calcium (8.5-10.1) mg/dL Magnesium (1.8-2.4) mg/dL Total Bilirubin (0.2-1.0) mg/dL AST (15-37) U/L ALT (16-63) U/L Alkaline Phosphatase (46-116) U/L Troponin I 97 H* 87 H* (<or=76) ng/L NT-Pro-B Natriuret Pep (<300) pg/mL Total Protein (6.4-8.2) g/dL Albumin (3.4-5.0) g/dL ABO/Rh O Positive Antibody Screen NEGATIVE Crossmatch See Detail 05/08/25 Range/Units 09:38 WBC 5.20 (4.4-10.8) 10^3/uL RBC 3.13 L (4.36-5.78) 10^6/uL Hgb 6.8 L* (13.5-17.5) g/dL Hct 24.3 L (40.0-50.0) % MCV 78 L (80-95) fL MCH 21.7 L (27.0-33.0) pg MCHC 28.0 L (32.0-36.0) % RDW 16.7 H (11.8-14.1) % Plt Count 109 L (130-400) 10^3/uL MPV 10.4 (8.0-11.0) fL Immature Gran % 0.4 % Neutrophils % 67.1 % Lymphocytes % 14.4 % Monocytes % 10.8 % Eosinophils % 6.7 % Basophils % 0.6 % Nucleated RBC % 0.0 (0.0-0.3) % Absolute Neutrophils 3.49 (1.2-6.7) 10^3/uL Absolute Lymphocytes 0.75 L (1.2-3.4) 10^3/uL Absolute Monocytes 0.56 (0.1-0.8) 10^3/uL Absolute Eosinophils 0.35 (0.0-0.7) 10^3/uL Absolute Basophils 0.03 (0.0-0.2) 10^3/uL PT 11.9 H (9.1-11.1) sec INR 1.2 H (0.9-1.1) APTT 25.4 (20.6-30.2) sec Sodium 141 (136-145) mmol/L Potassium 4.2 (3.5-5.1) mmol/L Chloride 108 H (98-107) mmol/L Carbon Dioxide 24.0 (21.0-32.0) mmol/L Anion Gap 9.0 (3-11) mmol/L BUN 12 (7-18) mg/dL Creatinine 1.1 (0.70-1.30) mg/dL Est GFR (CKD-EPI 2020) 68.71 (mL/min/1.73m2) Glucose 171 H (74-106) mg/dL Calcium 8.4 L (8.5-10.1) mg/dL Magnesium 2.0 (1.8-2.4) mg/dL Total Bilirubin 1.4 H (0.2-1.0) mg/dL AST 28 (15-37) U/L ALT 23 (16-63) U/L Alkaline Phosphatase 172 H (46-116) U/L Troponin I 82 H* (<or=76) ng/L NT-Pro-B Natriuret Pep 1013 H (<300) pg/mL Total Protein 5.9 L (6.4-8.2) g/dL Albumin 2.6 L (3.4-5.0) g/dL ABO/Rh Antibody Screen Crossmatch Intake and Output - 24 Hour Total 05/08/25 09:28 thru 05/08/25 14:06 Intake Total 400 Balance 400 Weight 112.8 kg Intake: Blood Product 400 Unit 400 Other: Urine Appearance Clear # Voids 2 Falls Risk Assessment History of Falls Previous History 05/08/25 14:06 Contributing Factors Impairments,Incontinence 05/08/25 14:06 Ambulatory Aids Uses ambulatory device 05/08/25 14:06 Tubes/Lines None 05/08/25 14:06 Gait Evaluation W/any additional score 05/08/25 14:06 Cognition No cognitive impairment 05/08/25 14:06 Fall Total Score 56 05/08/25 14:06 Level of Risk High Risk 05/08/25 14:06 Problems (Last Reviewed 05/08/25 @ 11:22 by Oracio Ferreira MD) Anemia (Chronic) CHF exacerbation (Acute) v v v v v v v v v Sending and/or Receiving Nurses: Please use comment section below to note any information pertinent to the patient hand-off not included above. Information / Comments: Report received from: pt c/o SOB increasing over past few days, fatigue, came in with Hgb 6.8 and was transfused with 1 unit PRBC's TROP 82, 87, 97. Lives with at home and is A/O x4, irregular HR with PMH of Trena, incontinene of bladder, chronic ostomy, minor c/o back pain. VS WNL report received from Geoff, RN
[2025-05-08 16:09] LABS: HCT 29.2 % (40.0-50.0); HGB 8.6 g/dL (13.5-17.5)
[2025-05-08] MEDS: Apixaban 5 MG TAB PO (20:11)
[2025-05-08] MEDS: Rifaximin 550 MG TAB PO (20:11)
[2025-05-08] MEDS: Normal Saline Flush 10 ML SYR IVP (20:12)
[2025-05-08 21:27] LABS: Troponin I 92 ng/L (<or=76)
[2025-05-08] MEDS: traZODone 100 MG TAB PO (23:42)
[2025-05-09] MEDS: Acetaminophen 325 MG TAB 650 MG PO (03:13)
[2025-05-09 03:14] VITALS: BP 130/76; PULSE 65; RESP 16; TEMP 36.6; O2SAT 96
[2025-05-09] MEDS: Levothyroxine 100 MCG TAB PO (06:01)
[2025-05-09 06:27] LABS: HCT 26.5 % (40.0-50.0); HGB 7.8 g/dL (13.5-17.5); MCH 22.7 pg (27.0-33.0); MCHC 29.4 % (32.0-36.0); MCV 77 fL (80-95); MPV 10.5 fL (8.0-11.0); Platelet Count 109 10^3/uL (130-400); RBC 3.44 10^6/uL (4.36-5.78); RDW 17.0 % (11.8-14.1); RDW-SD 47.3 fL; WBC 5.42 10^3/uL (4.4-10.8)
[2025-05-09 06:50] LABS: ALT 18 U/L (16-63); AST 25 U/L (15-37); Albumin 2.4 g/dL (3.4-5.0); Alkaline Phosphatase 159 U/L (46-116); Anion Gap 9.1 mmol/L (3-11); BUN 12 mg/dL (7-18); Bilirubin, Total 2.2 mg/dL (0.2-1.0); CO2 23.9 mmol/L (21.0-32.0); Calcium 8.7 mg/dL (8.5-10.1); Chloride 111 mmol/L (98-107); Estimated GFR 68.71 (mL/min/1.73m2); Glucose 115 mg/dL (74-106); Magnesium 2.0 mg/dL (1.8-2.4); Potassium 4.0 mmol/L (3.5-5.1); Sodium 144 mmol/L (136-145); Total Protein 5.3 g/dL (6.4-8.2)
[2025-05-09 07:03] LABS: Troponin I 98 ng/L (<or=76)
--- NOTE | 2025-05-09 07:05 | SCONE_ITS ---
Date of service: 05/09/25 Time of Service: 07:05 Assessment and Plan Assessment and plan (1) Anemia associated with acute blood loss: Status: Acute Assessment and plan: 80-year-old male with history of cirrhosis resulting in portal hypertension, splenomegaly, thrombocytopenia and abnormal synthetic liver function (slightly elevated INR); recently status post TIPS with post TIPS encephalopathy. Presents with increasing shortness of breath in setting of fluid overload and CHF exacerbation. Also with anemia with some presumably blood loss - patient endorsing small amounts blood from colostomy daily from mucosa after bag changes/irritation, but there is also likely a component of anemia of chronic disease. Bleeding partially related to underlying platelet and coagulation status with cirrhosis. Status post 1 unit PRBC transfusion on admission, hemoglobin improved and stable. Other comorbidities include obesity, ANETTE, diabetes. Follows with [facility] - Based on multiple medical comorbidities and acute CHF exacerbation, patient is a very poor surgical candidate. - Bleeding likely at least partially due to abnormal coagulation and platelet functions related to underlying disease - No surgical intervention necessary / recommended at this time -Colonoscopy could be considered but not highly recommended at this time - Check iron labs - Trend hemoglobin - supply patient with surgicell to apply to mucosa bleeding at home in the future - place paste / ring bummer medially along stoma prior to bag to help prevent medial leakage - colostomy care provided bedside. Old colostomy removed, area clean and skin prep placed, bumper molded and placed medially, ostomy waifer and bag placed. RN at bedside assisted and shown how to apply ostomy appliance in the future - Continue medical management for heart failure and other comorbidities - Recommend follow-up palliative care consult - Call with additional questions or concerns (2) Colostomy care: Status: Acute (3) Cirrhosis of liver without ascites: (4) Portal hypertension: (5) Thrombocytopenia: Status: Chronic (6) Splenomegaly: Status: Acute (7) Acute on chronic HFrEF (heart failure with reduced ejection fraction): Status: Acute (8) Chronic atrial fibrillation: Status: Chronic (9) Severe obesity (BMI >= 40): Status: Chronic (10) Type 2 diabetes mellitus: Status: Chronic (11) ANETTE (obstructive sleep apnea): Status: Chronic History of Present Illness History of Present Illness Chief Complaint: Stoma bleeding Narrative: 79 years old known to the surgical services at [facility] due to recurrent small bowel obstructions. Yesterday he presented to the ER complaining increasing SOB and leg swelling. Also noted to be anemic and patient states the has approximately 1 teaspoon of blood from the ostomy daily. Hgb improved after transfusion. Ostomy is at skin level and patient states the mucosa will get irritated and bleed on occasion. Bleeding stops within one minute He has an extensive and complex medical history that includes atrial fibrillation, heart failure with an ejection fraction 25-35%, DM2, ANETTE, CAD, cirrhosis requiring TIPS and recently complicated by encephalopathy. He has a chronic thrombocytopenia. INR 1.2 on admission. His surgical history is unclear, but he appears to have had an APR with end left sided colonstomy for colon/rectal cancer 40 years ago, as well as likely a right hemicolectomy based on staple lines seen on CT scans. He has had multiple hospital admissions for SBOs, which have resolved without surgical intervention. Review of Systems Constitutional Constitutional: Denies chills, Reports daytime sleepiness, Reports fatigue, Denies fever(s), Reports frequent falls, Reports lethargy, Reports malaise, Reports poor appetite and Reports weakness Cardiovascular Cardiovascular: Denies chest pain, Denies chest pain at rest, Denies chest pain with activity, Reports pedal edema, Reports irregular heart rhythm, Reports dyspnea, Reports dyspnea on exertion and Reports orthopnea Respiratory Respiratory: Denies cough, Reports dyspnea and Reports dyspnea on exertion Gastrointestinal Gastrointestinal: Denies bloating, Reports hematochezia, Denies nausea and Denies vomiting Comments: superficial bleeding from ostomy mucosa with bag changes Neurologic Neurologic: Reports frequent falls, Denies sensory deficit and Reports weakness Endocrine Endocrine: Reports fatigue PFSH All Active Problems Chronic GERD (Chronic) BPH (benign prostatic hyperplasia) (Chronic) Major depression, recurrent, chronic (Chronic) Severe obesity (BMI >= 40) (Chronic) Diabetes mellitus treated with oral medication (Chronic) Anemia associated with acute blood loss (Acute) History of creation of ostomy (Acute) Acute on chronic HFrEF (heart failure with reduced ejection fraction) (Acute) Anemia (Chronic) Contusion (Acute) Splenomegaly (Acute) Liver mass (Acute) Vomiting (Acute) Abdominal pain (Acute) Elevated lactic acid level (Acute) Acute UTI (Acute) Symptomatic bradycardia (Acute) Acute hypokalemia (Acute) Family conflict (Acute) Chest pain in adult (Acute) Fall (Acute) Thrombocytopenia (Chronic) Colostomy care (Acute) Chronic low back pain (Chronic) Hematuria (Acute) Elevated troponin level not due myocardial infarction (Acute) Leukopenia (Acute) Oral candidiasis (Acute) Sepsis syndrome (Acute) Gram-negative bacteremia (Acute) Cellulitis (Acute) Lower urinary obstructive symptom (Acute) Anemia of chronic disease (Acute) Thrombocytopenia (Chronic) Ventricular ectopy (Acute) Sinus bradycardia (Acute) Leukocytosis (Acute) Hypertension (Chronic) Elevated lactic acid level (Acute) CHF (congestive heart failure) (Chronic) No-show for appointment (Acute) Left rotator cuff tear (Acute) Acute UTI (urinary tract infection) (Acute) Weakness (Acute) Non-ST elevation [place] (NSTEMI) (Acute) Pre-syncope (Acute) Frequent falls (Acute) Orthostatic hypotension (Acute) Chronic atrial fibrillation (Chronic) Type 2 diabetes mellitus (Chronic) Hypokalemia (Acute) Bradycardia (Acute) Multiple falls (Acute) Acute metabolic encephalopathy (Acute) Medication monitoring encounter (Acute) ANETTE (obstructive sleep apnea) (Chronic) Chest pain (Acute) CHF exacerbation (Acute) CHF (congestive heart failure) (Chronic) EF 25%- 2023 Medical History Chronic heart failure with reduced ejection fraction (HFrEF, <= 40%) Anemia Cirrhosis of liver without ascites Diabetes PAF (paroxysmal atrial fibrillation) Goals of care, counseling/discussion Lactic acidosis UTI (urinary tract infection) Urinary tract infection Advanced care planning/counseling discussion Palliative care encounter [facility]ed by [facility] Bowel obstruction Sepsis Heart failure with reduced ejection fraction Hypothyroidism Small bowel obstruction Lactic acid acidosis Creatinine elevation Acute UTI Anticoagulated COVID Recurrent intestinal obstruction History of colon cancer Chronic anticoagulation Portal hypertension Cirrhosis TIPs placed (?when, [facility]? 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, Dx [facility] as per pt Non-insulin dependent type 2 diabetes mellitus Incontinence Hypertension Scleral icterus Surgical History S/P TIPS (transjugular intrahepatic portosystemic shunt) H/O left hemicolectomy Colostomy in place Social History Smoking/Tobacco Use Status: Former Tobacco Use Smoking risk assessment performed?: Yes Alcohol Intake: former Drug use: Never Substance use type: does not use Housing: house Do you feel safe at home: Yes Do you feel safe in your relationship?: Yes Additional Social history: from [facility] Exam Const General: cooperative, comfortable, no acute distress and well groomed Eyes Sclera: sclerae normal EOM: EOM intact bilaterally Resp Effort & Inspection: normal respiratory effort Cardio Rate: regular rate GI Inspection: normal to inspection, scar (low midline well healed) and other (ostomy LLQ at skin level. Slightly friable mucosa, divot medially.) Penis: normal penis Skin General skin exam: scars and other (irritation around stoma) Neuro General: patient alert, patient awake and patient oriented x3 Cognition: normal cognition Speech: speech normal Results Last Vital Signs Temp 36.6 C 05/09/25 03:14 Pulse 65 05/09/25 03:14 Resp 16 05/09/25 03:14 BP 130/76 05/09/25 03:14 Pulse Ox 96 05/09/25 03:14 Labs 05/09/25 06:06 05/09/25 06:06 Labs: Laboratory Results - last 24 hr 05/08/25 05/08/25 05/08/25 09:38 10:04 10:35 WBC 5.20 RBC 3.13 L Hgb 6.8 L* Hct 24.3 L MCV 78 L MCH 21.7 L MCHC 28.0 L RDW 16.7 H Plt Count 109 L MPV 10.4 Immature Gran % 0.4 Neutrophils % 67.1 Lymphocytes % 14.4 Monocytes % 10.8 Eosinophils % 6.7 Basophils % 0.6 Nucleated RBC % 0.0 Absolute Neutrophils 3.49 Absolute Lymphocytes 0.75 L Absolute Monocytes 0.56 Absolute Eosinophils 0.35 Absolute Basophils 0.03 PT 11.9 H INR 1.2 H APTT 25.4 Sodium 141 Potassium 4.2 Chloride 108 H Carbon Dioxide 24.0 Anion Gap 9.0 BUN 12 Creatinine 1.1 Est GFR (CKD-EPI 2020) 68.71 Glucose 171 H Calcium 8.4 L Magnesium 2.0 Total Bilirubin 1.4 H AST 28 ALT 23 Alkaline Phosphatase 172 H Troponin I 82 H* 87 H* NT-Pro-B Natriuret Pep 1013 H Total Protein 5.9 L Albumin 2.6 L ABO/Rh O Positive Antibody Screen NEGATIVE Crossmatch See Detail 05/08/25 05/08/25 05/08/25 13:07 15:50 20:55 WBC RBC Hgb 8.6 L Hct 29.2 L MCV MCH MCHC RDW Plt Count MPV Immature Gran % Neutrophils % Lymphocytes % Monocytes % Eosinophils % Basophils % Nucleated RBC % Absolute Neutrophils Absolute Lymphocytes Absolute Monocytes Absolute Eosinophils Absolute Basophils PT INR APTT Sodium Potassium Chloride Carbon Dioxide Anion Gap BUN Creatinine Est GFR (CKD-EPI 2020) Glucose Calcium Magnesium Total Bilirubin AST ALT Alkaline Phosphatase Troponin I 97 H* 92 H* NT-Pro-B Natriuret Pep Total Protein Albumin ABO/Rh Antibody Screen Crossmatch 05/09/25 06:06 WBC 5.42 RBC 3.44 L Hgb 7.8 L Hct 26.5 L MCV 77 L MCH 22.7 L MCHC 29.4 L RDW 17.0 H Plt Count 109 L MPV 10.5 Immature Gran % Neutrophils % Lymphocytes % Monocytes % Eosinophils % Basophils % Nucleated RBC % Absolute Neutrophils Absolute Lymphocytes Absolute Monocytes Absolute Eosinophils Absolute Basophils PT INR APTT Sodium 144 Potassium 4.0 Chloride 111 H Carbon Dioxide 23.9 Anion Gap 9.1 BUN 12 Creatinine 1.1 Est GFR (CKD-EPI 2020) 68.71 Glucose 115 H Calcium 8.7 Magnesium 2.0 Total Bilirubin 2.2 H AST 25 ALT 18 Alkaline Phosphatase 159 H Troponin I 98 H* NT-Pro-B Natriuret Pep Total Protein 5.3 L Albumin 2.4 L ABO/Rh Antibody Screen Crossmatch Imaging Chest x-ray: report reviewed and image reviewed Abdomen CT scan report/results: report reviewed and image reviewed (02/26/2025)
[2025-05-09 07:25] VITALS: BP 141/78; PULSE 76; RESP 18; TEMP 36.6; O2SAT 94
[2025-05-09] MEDS: Pantoprazole 40 MG TABCR PO (08:04)
[2025-05-09] MEDS: Empaglifozin 25 MG TAB PO (09:33)
[2025-05-09] MEDS: Tamsulosin 0.4 MG CAPCR PO (09:33)
[2025-05-09] MEDS: Furosemide 20 MG TAB 40 MG PO (09:33)
[2025-05-09] MEDS: Rifaximin 550 MG TAB PO ×2 (09:33→19:41)
[2025-05-09] MEDS: Venlafaxine 75 MG CAPCR PO (09:33)
[2025-05-09] MEDS: Losartan 50 MG TAB PO (09:33)
[2025-05-09] MEDS: Venlafaxine 150 MG CAPCR PO (09:33)
[2025-05-09] MEDS: Spironolactone 25 MG TAB 12.5 MG PO (09:33)
[2025-05-09] MEDS: Lactulose 20 GM/30 ML CUP 10 GM PO ×3 (09:35→19:41)
[2025-05-09] MEDS: Normal Saline Flush 10 ML SYR IVP ×2 (09:36→19:41)
--- NOTE | 2025-05-09 10:36 | PDOC.CMIN ---
Date of service: 05/09/25 Time of Service: 10:36 Care Management Initial Assmt Initial Assessment Reason for Hospitalization: Anemia Functional Status/Living Situation Patient Presentation: Merrill was sitting up in bed when CM met with him. He was alert, oriented and smiling broadly when CM entered the room. CM is well known to Merrill from many hospital stays both he and his have had over the past few years. Merrill was admitted with anemia. His Hgb was 6.8 onn admission, requring a transfusion. Merrill has an ostomy and his stoma bleeds easily. It is felt that that may be contributing to the anemia. Merrill aslo has CHF. He informed CM it was thew difficulty breathing that really brought him to the hospital. Merrill uses Cpap at night but stated he needs a new machine. CM will contact his PCP at the [place] to discuss. Merrill lived in a single family home in [place] with his Cely and son Scott. He has been in and out of rehab a couple of times and is currently staying at [facility] as a [facility] care patient. he requires assistance with ADls and uses a wheelchair and a walker for mobilization. Town of Residence: [facility] Resides with: Other (SNF) Significant Other/Family: Local Natural Supports: Cely and son Scott Employment Status: Retired Instrumental Activities of Daily Living (ADLs): Requires support Medications Medication Management: No Issues/Barriers identified Physical Functioning/Mobility Assistive Device: walker, wheelchair Advance Directives Advance Directives: Do you have an Advance Directive: Y 08/05/24, 02:24 AD On File at [facility]: N 08/05/24, 10:22 Date Asked 04/19/25 04/19/25, 09:19 AD Date Reviewed COLST On File at [facility] No 12/04/23, 16:58 COLST Date Scanned Code Status Resuscitation Status Full Code Portal Pt does not currently have a portal and education provided: Yes Insurance Coverage/Financial Issues Insurance: [place] Medicare Care Team Visit Care Team Role Provider Type Maryann Whitt Primary Care Provider NURSE PRACTITIONER Pedro Peralta, DO Other Providers OSTEOPATHIC DOCTOR Oracio Ferreira MD Emergency Provider [facility] STAFF PHYSICIAN Silver Waters MD Admit Provider [facility] STAFF PHYSICIAN Attending Provider Discharge Potential Discharge Needs: PCP F/U Appt Anticipated Barriers to Discharge: None Identified Patient/Family Education Needs: Review discharge instructions, discuss Ask Me Three Transportation: RCT Plan: Anticipate Merrill will be transferred back to [facility] when medically stable. He will follow up with the facility providers and plan of care and and transport via RCT. CM will follow and continue to support discharge planning. Social Determinants of Health Screening Social Determinants of health last assessed in clinic: 05/09/25 Will the Patient Participate in the Screening?: Yes Do you worry about having a steady place to live?: no Problems where you live: no known problems In the past 12 months, have you had to go without electric, gas, oil or water in your home?: yes 1. Within the past 12 months, we worried whether our food would run out before we got money to buy more.: Never true 2. Within the past 12 months, the food we bought just didn't last and we didn't have money to get more.: Never true Has lack of transportation kept you from medical appointments or from doing things needed for daily living?: yes Has anyone in your life made you feel unsafe or unsupported?: no How hard is it for you to pay for the very basics like food, housing, medical care, and heating? Would you say it is:: Somewhat hard Do you want help finding or keeping work or a job?: I do not need or want help If for any reason you need help with day-to-day activities such as bathing, preparing meals, shopping, managing finances, etc., do you get the help you need?: I could use a little more help How often do you feel lonely or isolated from those around you?: Sometimes Do you speak a language other than Belarusian at home?: Yes Does the patient want assistance with any of the above?: Yes Health Related Social Needs Health related social needs: transportation insecurity (Z59.82), material hardship(utilities) (Z59.12), problems related to housing/economic circumstances (Z59.89), problems with daily activities (Z73.9), feeling lonely/isolated (Z60.8) and education (Z55.6) Health related social needs details: has some concerns PFSH All Active Problems Chronic GERD (Chronic) BPH (benign prostatic hyperplasia) (Chronic) Major depression, recurrent, chronic (Chronic) Severe obesity (BMI >= 40) (Chronic) Diabetes mellitus treated with oral medication (Chronic) Anemia associated with acute blood loss (Acute) History of creation of ostomy (Acute) Acute on chronic HFrEF (heart failure with reduced ejection fraction) (Acute) Anemia (Chronic) Contusion (Acute) Splenomegaly (Acute) Liver mass (Acute) Vomiting (Acute) Abdominal pain (Acute) Elevated lactic acid level (Acute) Acute UTI (Acute) Symptomatic bradycardia (Acute) Acute hypokalemia (Acute) Family conflict (Acute) Chest pain in adult (Acute) Fall (Acute) Thrombocytopenia (Chronic) Colostomy care (Acute) Chronic low back pain (Chronic) Hematuria (Acute) Elevated troponin level not due myocardial infarction (Acute) Leukopenia (Acute) Oral candidiasis (Acute) Sepsis syndrome (Acute) Gram-negative bacteremia (Acute) Cellulitis (Acute) Lower urinary obstructive symptom (Acute) Anemia of chronic disease (Acute) Thrombocytopenia (Chronic) Ventricular ectopy (Acute) Sinus bradycardia (Acute) Leukocytosis (Acute) Hypertension (Chronic) Elevated lactic acid level (Acute) CHF (congestive heart failure) (Chronic) No-show for appointment (Acute) Left rotator cuff tear (Acute) Acute UTI (urinary tract infection) (Acute) Weakness (Acute) Non-ST elevation [place] (NSTEMI) (Acute) Pre-syncope (Acute) Frequent falls (Acute) Orthostatic hypotension (Acute) Chronic atrial fibrillation (Chronic) Type 2 diabetes mellitus (Chronic) Hypokalemia (Acute) Bradycardia (Acute) Multiple falls (Acute) Acute metabolic encephalopathy (Acute) Medication monitoring encounter (Acute) ANETTE (obstructive sleep apnea) (Chronic) Chest pain (Acute) CHF exacerbation (Acute) CHF (congestive heart failure) (Chronic) EF 25%- 2023 Medical History Chronic heart failure with reduced ejection fraction (HFrEF, <= 40%) Anemia Cirrhosis of liver without ascites Diabetes PAF (paroxysmal atrial fibrillation) Goals of care, counseling/discussion Lactic acidosis UTI (urinary tract infection) Urinary tract infection Advanced care planning/counseling discussion Palliative care encounter Followed by [facility] Bowel obstruction Sepsis Heart failure with reduced ejection fraction Hypothyroidism Small bowel obstruction Lactic acid acidosis Creatinine elevation Acute UTI Anticoagulated COVID Recurrent intestinal obstruction History of colon cancer Chronic anticoagulation Portal hypertension Cirrhosis TIPs placed (?when, [facility]? 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, Dx [facility] as per pt Non-insulin dependent type 2 diabetes mellitus Incontinence Hypertension Scleral icterus Surgical History S/P TIPS (transjugular intrahepatic portosystemic shunt) H/O left hemicolectomy Colostomy in place Social History Smoking/Tobacco Use Status: Former Tobacco Use Smoking risk assessment performed?: Yes Alcohol Intake: former Drug use: Never Substance use type: does not use Housing: house Do you feel safe at home: Yes Do you feel safe in your relationship?: Yes Additional Social history: from [facility]
[2025-05-09 11:47] VITALS: BP 163/82; PULSE 67; RESP 17; TEMP 36.4; O2SAT 92
[2025-05-09] MEDS: Nystatin POWDER 60 GM JAR TP ×3 (12:41→19:41)
--- NOTE | 2025-05-09 14:43 | DSE_ITS ---
Date of service: 05/09/25 Time of Service: 14:43 DS: Diagnosis Discharge Diagnosis (1) Anemia associated with acute blood loss: Status: Acute (2) Colostomy care: Status: Acute (3) Cirrhosis of liver without ascites: (4) Portal hypertension: (5) Thrombocytopenia: Status: Chronic (6) Splenomegaly: Status: Acute (7) Acute on chronic HFrEF (heart failure with reduced ejection fraction): Status: Acute (8) Chronic atrial fibrillation: Status: Chronic (9) Severe obesity (BMI >= 40): Status: Chronic (10) Type 2 diabetes mellitus: Status: Chronic (11) ANETTE (obstructive sleep apnea): Status: Chronic Discharge Plan Disposition Patient Disposition: Home Condition: Fair Discharge Details Reason For Visit: Heart failure exacerbation Admit Date/Time: 05/08/25 12:04 Admit Provider: Silver Waters Attending Provider: Silver Waters Primary Care Provider: Maryann Whitt Home Meds and New Rx's Prescriptions: No Action pantoprazole 40 mg Tablet,Delayed Release (Dr/Ec) 40 mg PO DAILY Eliquis 5 mg Tablet 5 mg PO BID Patient Comments: taking per pt nitroglycerin 0.4 mg Tablet, Sublingual 0.4 mg sublingual Q5 MIN PRN X3 PRNQty: 30 0RF rifaximin 550 mg Tablet 550 mg PO BID prazosin 5 mg capsule 10 mg PO QPM tamsulosin 0.4 mg Capsule 0.4 mg PO DAILY furosemide 20 mg tablet 40 mg PO DAILY metformin 500 mg tablet extended release 24hr 1,000 mg PO BID bisacodyl [Dulcolax (bisacodyl)] 10 mg suppository 10 mg [place] DAILY PRN ondansetron 4 mg tablet,disintegrating 4 mg PO Q6H PRN potassium chloride 20 mEq tablet extended release 20 meq PO DAILY spironolactone [Aldactone] 25 mg tablet 12.5 mg PO DAILY venlafaxine [Effexor XR] 75 mg capsule,extended release 24hr 75 mg PO DAILY Patient Comments: takes w/150mg capsule for total dose of 225mg daily lactulose 20 gram/30 mL Solution 15 ml PO TID Rx Instructions: to maintain colostomy output of 3-4 bags per day diclofenac sodium [Arthritis Pain (diclofenac)] 1 % gel 2 g topical TID Rx Instructions: apply to single elbow, wrist or hand; for hand includes palm/fingers/back of hand empagliflozin 25 mg Tablet 25 mg PO DAILY levothyroxine 200 mcg Tablet 100 mcg PO QAM Qty: 0 0RF venlafaxine 150 mg capsule,extended release 24hr 150 mg PO DAILY acetaminophen [Tylenol] 325 mg Capsule 650 mg PO Q6H MDD 3000 PRN losartan [Cozaar] 50 mg tablet 50 mg PO DAILY DS: Summary Quality:SDOH Health Related Social Needs: Health related social needs transpo insecurity materia l hardship house/econ circumstance daily activities lonely/isolated education Health related social needs details has some concerns Health related social needs details: has some concerns DS: Data Vitals/I&O Vitals and I&O: Vital Signs Temperature 36.4 C L 05/09/25 11:47 Temperature Source Tympanic 05/09/25 11:47 Pulse 67 05/09/25 11:47 Pulse Rhythm Irregular 05/08/25 14:06 Pulse 86 05/08/25 13:01 Respiratory Rate 17 05/09/25 11:47 Respiratory Effort Short of Breath 05/08/25 14:06 Respiratory Depth Normal 05/08/25 14:06 Respiratory Pattern Normal 05/08/25 14:06 Blood Pressure 163/82 H 05/09/25 11:47 Blood Pressure Mean 109 05/09/25 11:47 Pulse Oximetry 92 05/09/25 11:47 Oxygen Delivery Method Room Air 05/09/25 11:47 Oxygen Flow Rate 0 05/09/25 11:47 Pain Level 0 05/09/25 11:47 Intake & Output 05/08/25 05/09/25 05/09/25 23:59 11:59 23:59 Intake Total 910 / 910 480 / 980 500 / 980 Output Total 550 / 550 1275 / 1775 500 / 1775 Balance 360 / 360 -795 / -795 0 / -795 Weight 112.8 kg Intake: IV Oral 500 / 500 480 / 980 500 / 980 Blood Product 400 / 400 Rbc Leuko Reduced Unit 400 / 400 [id number] Output: Urine 550 / 550 1275 / 1775 500 / 1775 Other: Urine Color Yellow Yellow Urine Appearance Clear Clear Urine Odor Normal Normal Comment pT stated he voided. Stool Size Moderate Stool Characteristics Soft Brown # Voids 2 Data Completed and Pending Labs on day of discharge: Labs from last 24 hours 05/09/25 05/08/25 05/08/25 06:06 20:55 15:50 WBC 5.42 RBC 3.44 L Hgb 7.8 L 8.6 L Hct 26.5 L 29.2 L MCV 77 L MCH 22.7 L MCHC 29.4 L RDW 17.0 H Plt Count 109 L MPV 10.5 Sodium 144 Potassium 4.0 Chloride 111 H Carbon Dioxide 23.9 Anion Gap 9.1 BUN 12 Creatinine 1.1 Est GFR (CKD-EPI 2020) 68.71 Glucose 115 H Calcium 8.7 Magnesium 2.0 Total Bilirubin 2.2 H AST 25 ALT 18 Alkaline Phosphatase 159 H Troponin I 98 H* 92 H* Total Protein 5.3 L Albumin 2.4 L PFSH All Active Problems Chronic GERD (Chronic) BPH (benign prostatic hyperplasia) (Chronic) Major depression, recurrent, chronic (Chronic) Severe obesity (BMI >= 40) (Chronic) Diabetes mellitus treated with oral medication (Chronic) Anemia associated with acute blood loss (Acute) History of creation of ostomy (Acute) Acute on chronic HFrEF (heart failure with reduced ejection fraction) (Acute) Anemia (Chronic) Contusion (Acute) Splenomegaly (Acute) Liver mass (Acute) Vomiting (Acute) Abdominal pain (Acute) Elevated lactic acid level (Acute) Acute UTI (Acute) Symptomatic bradycardia (Acute) Acute hypokalemia (Acute) Family conflict (Acute) Chest pain in adult (Acute) Fall (Acute) Thrombocytopenia (Chronic) Colostomy care (Acute) Chronic low back pain (Chronic) Hematuria (Acute) Elevated troponin level not due myocardial infarction (Acute) Leukopenia (Acute) Oral candidiasis (Acute) Sepsis syndrome (Acute) Gram-negative bacteremia (Acute) Cellulitis (Acute) Lower urinary obstructive symptom (Acute) Anemia of chronic disease (Acute) Thrombocytopenia (Chronic) Ventricular ectopy (Acute) Sinus bradycardia (Acute) Leukocytosis (Acute) Hypertension (Chronic) Elevated lactic acid level (Acute) CHF (congestive heart failure) (Chronic) No-show for appointment (Acute) Left rotator cuff tear (Acute) Acute UTI (urinary tract infection) (Acute) Weakness (Acute) Non-ST elevation WI (NSTEMI) (Acute) Pre-syncope (Acute) Frequent falls (Acute) Orthostatic hypotension (Acute) Chronic atrial fibrillation (Chronic) Type 2 diabetes mellitus (Chronic) Hypokalemia (Acute) Bradycardia (Acute) Multiple falls (Acute) Acute metabolic encephalopathy (Acute) Medication monitoring encounter (Acute) ANETTE (obstructive sleep apnea) (Chronic) Chest pain (Acute) CHF exacerbation (Acute) CHF (congestive heart failure) (Chronic) EF 25%- 2023 Medical History Chronic heart failure with reduced ejection fraction (HFrEF, <= 40%) Anemia Cirrhosis of liver without ascites Diabetes PAF (paroxysmal atrial fibrillation) Goals of care, counseling/discussion Lactic acidosis UTI (urinary tract infection) Urinary tract infection Advanced care planning/counseling discussion Palliative care encounter Followed by [facility] Bowel obstruction Sepsis Heart failure with reduced ejection fraction Hypothyroidism Small bowel obstruction Lactic acid acidosis Creatinine elevation Acute UTI Anticoagulated COVID Recurrent intestinal obstruction History of colon cancer Chronic anticoagulation Portal hypertension Cirrhosis TIPs placed (?when, 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
--- NOTE | 2025-05-09 14:52 | PGE_ITS ---
Date of Service Date of service: 05/09/25 Time of Service: 14:52 Assessment and Plan Assessment and plan (1) Anemia associated with acute blood loss: Status: Acute Assessment and plan: Hgb this am 7.8; this afternoon 8.4 - seen by surgery - see their note. (2) Acute on chronic HFrEF (heart failure with reduced ejection fraction): Status: Acute Assessment and plan: March 01 echo showing EF 35% with global hypokinesis, mild/mod atrial dilation On presentation, worsening exercise dyspnea with elevated BNP and bilateral lower extremity edema Likely exacerbated by anemia and cirrhosis Likely causing demand ischemia with troponin elevation Furosemide 40 mg in am 20 mg in early afternoon, continue ARB Cr 1.1 Daily weights (3) Elevated troponin level not due myocardial infarction: Status: Acute Assessment and plan: Troponin 82 on arrival without EKG changes High of 97, trending down (4) History of creation of ostomy: Status: Acute Assessment and plan: Reported total colectomy, year unknown Ostomy is clearly leaking stool, and per patient report, he has daily bleeding Surgery added bump and recommends discharge with surgicel (5) Chronic atrial fibrillation: Status: Chronic Assessment and plan: On apixaban - resume (6) Thrombocytopenia: Status: Chronic Assessment and plan: Chronic, platelet count in the 100's (7) Diabetes mellitus treated with oral medication: Status: Chronic Assessment and plan: A1C 6.8 in mid-March, home regimen empagliflozin, metformin, holding both SSI sensitive (8) Major depression, recurrent, chronic: Status: Chronic Assessment and plan: Continue home venlafaxine (9) BPH (benign prostatic hyperplasia): Status: Chronic Assessment and plan: Continue home tamsulosin (10) Chronic GERD: Status: Chronic Assessment and plan: Continue home pantoprazole (11) Severe obesity (BMI >= 40): Status: Chronic (12) Cirrhosis of liver without ascites: Assessment and plan: History of hepatic encephalopathy, monitor for mental status changes - awake, alert oriented, conversant Continue home furosemide, spironolactone, rifaximin (13) Hypothyroidism: Assessment and plan: Continue home levothyroxine Subjective Subjective Patient reports: no new complaints, pain is less, tolerating liquids well, tolerating a regular diet, voiding w/o difficulty and bowel movement; denies flatus, diarrhea, vomiting or shortness of breath Interval history since last seen: Patient reports feeling better. He states he does get short of breath when he walks to the bathroom. Exam Const General: cooperative, comfortable, no acute distress and well groomed HENNJ Mouth: moist mucous membranes Eyes Conjunctivae: normal conjunctivae Sclera: sclerae normal EOM: EOM intact bilaterally Resp Effort & Inspection: normal respiratory effort Auscultation: clear to auscultation bilaterally, no rales, no rhonchi and no wheezes Cardio Rate: regular rate Rhythm: regular rhythm and abnormal rhythm with ectopic beats Heart Sounds: murmur systolic III/ GI Inspection: normal to inspection, scar (low midline well healed) and other (ostomy LLQ at skin level. Slightly friable mucosa, divot medially.) Palpation: soft, not firm, no guarding, no masses, not rigid and nontender Penis: normal penis Skin General skin exam: scars and other (irritation around stoma) Neuro General: patient alert, patient awake and patient oriented x3 Cognition: normal cognition Speech: speech normal Extrem General: edema Laterality: bilateral (2+ to knees) Objective Last Vital Signs Temp 36.4 C L 05/09/25 11:47 Pulse 67 05/09/25 11:47 Resp 17 05/09/25 11:47 BP 163/82 H 05/09/25 11:47 Pulse Ox 92 05/09/25 11:47 Laboratory Results - last 24 hr 05/08/25 05/08/25 05/09/25 15:50 20:55 06:06 WBC 5.42 RBC 3.44 L Hgb 8.6 L 7.8 L Hct 29.2 L 26.5 L MCV 77 L MCH 22.7 L MCHC 29.4 L RDW 17.0 H Plt Count 109 L MPV 10.5 Sodium 144 Potassium 4.0 Chloride 111 H Carbon Dioxide 23.9 Anion Gap 9.1 BUN 12 Creatinine 1.1 Est GFR (CKD-EPI 2020) 68.71 Glucose 115 H Calcium 8.7 Magnesium 2.0 Total Bilirubin 2.2 H AST 25 ALT 18 Alkaline Phosphatase 159 H Troponin I 92 H* 98 H* Total Protein 5.3 L Albumin 2.4 L Time Spent with Patient Time Spent with Patient: 25-34 minutes Time was spent: preparing to see the patient(eg.review tests), ordering medications,tests, procedures, referring, communicating with other health director of home care hospice, indepentently interpreting results and counseling the patient
[2025-05-09 15:44] LABS: HCT 29.0 % (40.0-50.0); HGB 8.4 g/dL (13.5-17.5)
[2025-05-09 15:55] VITALS: BP 128/62; PULSE 69; RESP 17; TEMP 37.1; O2SAT 92
[2025-05-09 19:33] VITALS: BP 146/83; PULSE 77; RESP 19; TEMP 36.5; O2SAT 95
[2025-05-09 23:58] VITALS: BP 163/71; PULSE 72; RESP 17; TEMP 36.7; O2SAT 93
[2025-05-10 03:26] VITALS: BP 143/71; PULSE 83; RESP 19; TEMP 36.8; O2SAT 92
[2025-05-10] MEDS: Levothyroxine 100 MCG TAB PO (05:21)
[2025-05-10 07:48] VITALS: BP 131/63; PULSE 50; RESP 18; TEMP 36.6; O2SAT 95
[2025-05-10] MEDS: Losartan 50 MG TAB PO (08:54)
[2025-05-10] MEDS: Venlafaxine 75 MG CAPCR PO (08:54)
[2025-05-10] MEDS: Tamsulosin 0.4 MG CAPCR PO (08:54)
[2025-05-10] MEDS: Empaglifozin 25 MG TAB PO (08:54)
[2025-05-10] MEDS: Venlafaxine 150 MG CAPCR PO (08:54)
[2025-05-10] MEDS: Rifaximin 550 MG TAB PO (08:54)
[2025-05-10] MEDS: Spironolactone 25 MG TAB 12.5 MG PO (08:55)
[2025-05-10] MEDS: Lactulose 20 GM/30 ML CUP 10 GM PO (08:55)
[2025-05-10] MEDS: Pantoprazole 40 MG TABCR PO (08:55)
[2025-05-10] MEDS: Insulin Aspart 300 UNITS/3 ML PEN SC (08:55)
[2025-05-10] MEDS: Normal Saline Flush 10 ML SYR IVP (08:56)
[2025-05-10] MEDS: Nystatin POWDER 60 GM JAR TP (08:56)
--- NOTE | 2025-05-10 11:14 | DSE_ITS ---
Date of service: 05/10/25 Time of Service: 11:14 DS: Diagnosis Discharge Diagnosis (1) Anemia associated with acute blood loss: Status: Acute (2) Acute on chronic HFrEF (heart failure with reduced ejection fraction): Status: Acute (3) Elevated troponin level not due myocardial infarction: Status: Acute (4) History of creation of ostomy: Status: Acute (5) Chronic atrial fibrillation: Status: Chronic (6) Thrombocytopenia: Status: Chronic (7) Diabetes mellitus treated with oral medication: Status: Chronic (8) Major depression, recurrent, chronic: Status: Chronic (9) BPH (benign prostatic hyperplasia): Status: Chronic (10) Chronic GERD: Status: Chronic (11) Severe obesity (BMI >= 40): Status: Chronic (12) Cirrhosis of liver without ascites: (13) Hypothyroidism: Discharge Plan Disposition Patient Disposition: Intermediate Facility(SNF) Condition: Serious Condition: Fair Discharge Details Reason For Visit: Heart failure exacerbation Admit Date/Time: 05/08/25 12:04 Admit Provider: Silver Waters Attending Provider: Silver Waters Primary Care Provider: Maryann Whitt Hospital Course Hospital Course: Reason for Admission: * Acute blood loss anemia, likely from ostomy site bleeding * Acute exacerbation of heart failure with reduced ejection fraction (HFrEF) * Elevated troponin with no myocardial infarction * Cirrhosis of the liver with a history of hepatic encephalopathy Hospital Course: Anemia associated with acute blood loss: The patient presented with signs of acute blood loss anemia, with hemoglobin levels of 7.8 initially and 8.4 later during hospitalization. He was managed with monitoring and consultation by surgery, who addressed the bleeding from the ostomy site. Surgery recommended discharge with Surgicel to control ongoing bleeding. Acute on Chronic Heart Failure with Reduced Ejection Fraction (HFrEF): The patient?s heart failure was exacerbated by anemia and cirrhosis, manifesting as worsening exercise dyspnea, bilateral lower extremity edema, and elevated BNP. He was treated with furosemide (40 mg in the AM, 20 mg in the PM), and his ejection fraction on prior echo was noted to be 35%. His heart failure was closely monitored, and adjustments to his diuretic therapy were made. Elevated Troponin Levels: Troponin was elevated (peaking at 98 ng/L), but no EKG changes were noted, suggesting the troponin elevation was not secondary to a myocardial infarction. It is likely related to demand ischemia exacerbated by heart failure. The troponin level trended downward during the hospital stay. Ostomy Complications: The patient has a history of total colectomy with ostomy creation. He reported ongoing stool leakage and daily bleeding from the ostomy site. The ostomy area showed slight friability of the mucosa, and the patient was treated with Surgicel as recommended by surgery to control the bleeding. Chronic Conditions: * Chronic Atrial Fibrillation: The patient resumed apixaban after careful consideration of his bleeding risks. * Thrombocytopenia: The patient?s platelets remain chronically low, in the 100?s, without any immediate concerns for active bleeding. * Diabetes Mellitus: The patient?s home regimen of empagliflozin and metformin was held during hospitalization, with blood glucose levels monitored. His A1C was 6.8 as of mid-March. * Major Depression: The patient continued his home medication of venlafaxine. * BPH: Managed with tamsulosin. * Chronic GERD: Managed with pantoprazole. * Cirrhosis of the Liver: The patient was monitored for hepatic encephalopathy, but showed no signs of mental status changes during the admission. Spironolactone, furosemide, and rifaximin were continued to manage the cirrhosis. Discharge Condition: The patient is stable at discharge. His anemia is improving, and his heart failure is better managed with diuretics and ARB therapy. He is no longer in acute distress, and his mental status remains intact. The ostomy site remains a source of concern, but bleeding is being controlled with Surgicel. Discharge Medications: * Furosemide: 40 mg daily in the morning and 20 mg in the early afternoon * Apixaban: As per home regimen * Pantoprazole: Continue for GERD management * Venlafaxine: Continue as per home regimen for depression * Tamsulosin: Continue as per home regimen for BPH * Levothyroxine: Continue as per home regimen for hypothyroidism * Spironolactone: Continue as per home regimen for cirrhosis * Rifaximin: Continue as per home regimen for cirrhosis Follow-up Appointments: * Primary Care Provider: * Cardiology: for follow-up on heart failure management and heart function. * Surgery: for ostomy site follow-up and further bleeding control. * Endocrinology: for diabetes management. * Hepatology: for cirrhosis follow-up. Discharge Instructions: * Diet: Continue regular diet as tolerated. If appetite decreases or he becomes short of breath again, monitor weight and seek medical advice if weight increases rapidly. * Fluid management: Continue monitoring fluid balance, especially with the use of diuretics. Contact healthcare provider if edema worsens. * Ostomy care: Monitor the stoma closely for leakage or bleeding. Use Surgicel as instructed by the surgical team. Avoid excessive straining. * Medications: Take all prescribed medications as directed. Apixaban should be resumed, and blood pressure and weight should be monitored. * Signs of complications: Seek immediate medical attention if the patient experiences any of the following: * Increased shortness of breath * Chest pain or tightness * Significant change in mental status * Excessive bleeding or leakage from the ostomy * New or worsening abdominal pain Summary and Recommendations: The patient has stabilized following an acute episode of heart failure exacerbation, acute blood loss anemia, and complications from his ostomy site. His chronic conditions, including diabetes, depression, and cirrhosis, will require ongoing management. He will need regular follow-up appointments to monitor his heart failure, ostomy site, and liver function. Discharge medications and instructions have been provided for continued care at [facility]. Home Meds and New Rx's Prescriptions: New furosemide [Lasix] 40 mg tablet See Rx Instructions .ROUTE .COMPLEX Qty: 60 0RF Rx Instructions: 40 mg every morning and 20 mg early afternoon Continued pantoprazole 40 mg Tablet,Delayed Release (Dr/Ec) 40 mg PO DAILY Eliquis 5 mg Tablet 5 mg PO BID Patient Comments: taking per pt nitroglycerin 0.4 mg Tablet, Sublingual 0.4 mg sublingual Q5 MIN PRN X3 PRNQty: 30 0RF rifaximin 550 mg Tablet 550 mg PO BID prazosin 5 mg capsule 10 mg PO QPM tamsulosin 0.4 mg Capsule 0.4 mg PO DAILY metformin 500 mg tablet extended release 24hr 1,000 mg PO BID bisacodyl [Dulcolax (bisacodyl)] 10 mg suppository 10 mg LA DAILY PRN ondansetron 4 mg tablet,disintegrating 4 mg PO Q6H PRN potassium chloride 20 mEq tablet extended release 20 meq PO DAILY spironolactone [Aldactone] 25 mg tablet 12.5 mg PO DAILY venlafaxine [Effexor XR] 75 mg capsule,extended release 24hr 75 mg PO DAILY Patient Comments: takes w/150mg capsule for total dose of 225mg daily lactulose 20 gram/30 mL Solution 15 ml PO TID Rx Instructions: to maintain colostomy output of 3-4 bags per day diclofenac sodium [Arthritis Pain (diclofenac)] 1 % gel 2 g topical TID Rx Instructions: apply to single elbow, wrist or hand; for hand includes palm/fingers/back of hand empagliflozin 25 mg Tablet 25 mg PO DAILY levothyroxine 200 mcg Tablet 100 mcg PO QAM Qty: 0 0RF venlafaxine 150 mg capsule,extended release 24hr 150 mg PO DAILY acetaminophen [Tylenol] 325 mg Capsule 650 mg PO Q6H MDD 3000 PRN losartan [Cozaar] 50 mg tablet 50 mg PO DAILY Discontinued furosemide 20 mg tablet 40 mg PO DAILY Discharge Instructions Activity:: Activity as Tolerated Equipment/Supplies:: No Equipment Needed Diet:: As Tolerated DS: Summary Time Spent with Patient providing and/or coordinating discharge services: Greater than 30 minutes Status at Discharge Functional status at discharge: uses cane/walker Overall status at discharge: patient is progressing back to baseline Mental Status: mental status grossly normal Speech and Movement: speech and movement normal Mood: congruent mood Affect: normal affect Quality:SDOH Health Related Social Needs: Health related social needs transpo insecurity materia l hardship house/econ circumstance daily activities lonely/isolated education Health related social needs details has some concerns Health related social needs details: has some concerns Exam Const General: cooperative, comfortable, no acute distress and well groomed HENMT Mouth: moist mucous membranes Eyes Conjunctivae: normal conjunctivae Sclera: sclerae normal EOM: EOM intact bilaterally Resp Effort & Inspection: normal respiratory effort Auscultation: clear to auscultation bilaterally, no rales, no rhonchi and no wheezes Cardio Rate: regular rate Rhythm: regular rhythm and abnormal rhythm with ectopic beats Heart Sounds: murmur systolic III/ GI Inspection: normal to inspection, scar (low midline well healed) and other (ostomy LLQ at skin level. Slightly friable mucosa, divot medially.) Palpation: soft, not firm, no guarding, no masses, not rigid and nontender Penis: normal penis Skin General skin exam: scars and other (irritation around stoma) Neuro General: patient alert, patient awake and patient oriented x3 Cognition: normal cognition Speech: speech normal Extrem General: edema Laterality: bilateral (2+ to knees) Psych Mental Status: mental status grossly normal Speech and Movement: speech and movement normal Mood: congruent mood Affect: normal affect DS: Data Vitals/I&O Vitals and I&O: Vital Signs Temperature 36.6 C 05/10/25 07:48 Temperature Source Temporal Artery Scan 05/10/25 07:48 Pulse 50 L 05/10/25 07:48 Pulse Rhythm Irregular 05/08/25 14:06 Pulse 86 05/08/25 13:01 Respiratory Rate 18 05/10/25 07:48 Respiratory Effort Short of Breath 05/08/25 14:06 Respiratory Depth Normal 05/08/25 14:06 Respiratory Pattern Normal 05/08/25 14:06 Blood Pressure 131/63 05/10/25 07:48 Blood Pressure Mean 85 05/10/25 07:48 Pulse Oximetry 95 05/10/25 07:48 Oxygen Delivery Method Room Air 05/10/25 07:48 Oxygen Flow Rate 0 05/10/25 07:48 Pain Level 0 05/09/25 15:55 Intake & Output 05/09/25 05/09/25 05/10/25 11:59 23:59 11:59 Intake Total 480 / 1790 1310 / 1790 Output Total 1275 / 2725 1450 / 2725 Balance -795 / -935 -140 / -935 Intake: IV Oral 480 / 1780 1300 / 1780 Output: Urine 1275 / 2725 1450 / 2725 Other: Urine Color Yellow Yellow Urine Appearance Clear Clear Urine Odor Normal Comment pT stated he voided. 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 Stool Size Moderate Stool Characteristics Soft Brown Data Completed and Pending Labs on day of discharge: Labs from last 24 hours 05/10/25 05/09/25 05:35 15:35 WBC Pending RBC Pending Hgb Pending 8.4 L Hct Pending 29.0 L MCV Pending MCH Pending MCHC Pending RDW Pending Plt Count Pending MPV Pending Sodium Pending Potassium Pending Chloride Pending Carbon Dioxide Pending Anion Gap Pending BUN Pending Creatinine Pending Est GFR (CKD-EPI 2020) Pending Glucose Pending Calcium Pending Magnesium Pending Total Bilirubin Pending AST Pending ALT Pending Alkaline Phosphatase Pending Total Protein Pending Albumin Pending PFSH All Active Problems Chronic GERD (Chronic) BPH (benign prostatic hyperplasia) (Chronic) Major depression, recurrent, chronic (Chronic) Severe obesity (BMI >= 40) (Chronic) Diabetes mellitus treated with oral medication (Chronic) Anemia associated with acute blood loss (Acute) History of creation of ostomy (Acute) Acute on chronic HFrEF (heart failure with reduced ejection fraction) (Acute) Anemia (Chronic) Contusion (Acute) Splenomegaly (Acute) Liver mass (Acute) Vomiting (Acute) Abdominal pain (Acute) Elevated lactic acid level (Acute) Acute UTI (Acute) Symptomatic bradycardia (Acute) Acute hypokalemia (Acute) Family conflict (Acute) Chest pain in adult (Acute) Fall (Acute) Thrombocytopenia (Chronic) Colostomy care (Acute) Chronic low back pain (Chronic) Hematuria (Acute) Elevated troponin level not due myocardial infarction (Acute) Leukopenia (Acute) Oral candidiasis (Acute) Sepsis syndrome (Acute) Gram-negative bacteremia (Acute) Cellulitis (Acute) Lower urinary obstructive symptom (Acute) Anemia of chronic disease (Acute) Thrombocytopenia (Chronic) Ventricular ectopy (Acute) Sinus bradycardia (Acute) Leukocytosis (Acute) Hypertension (Chronic) Elevated lactic acid level (Acute) CHF (congestive heart failure) (Chronic) No-show for appointment (Acute) Left rotator cuff tear (Acute) Acute UTI (urinary tract infection) (Acute) Weakness (Acute) Non-ST elevation LA (NSTEMI) (Acute) Pre-syncope (Acute) Frequent falls (Acute) Orthostatic hypotension (Acute) Chronic atrial fibrillation (Chronic) Type 2 diabetes mellitus (Chronic) Hypokalemia (Acute) Bradycardia (Acute) Multiple falls (Acute) Acute metabolic encephalopathy (Acute) Medication monitoring encounter (Acute) ANETTE (obstructive sleep apnea) (Chronic) Chest pain (Acute) CHF exacerbation (Acute) CHF (congestive heart failure) (Chronic) EF 25%- 2023 Medical History Chronic heart failure with reduced ejection fraction (HFrEF, <= 40%) Anemia Cirrhosis of liver without ascites Diabetes PAF (paroxysmal atrial fibrillation) Goals of care, counseling/discussion Lactic acidosis UTI (urinary tract infection) Urinary tract infection Advanced care planning/counseling discussion Palliative care encounter Followed by [facility] Bowel obstruction Sepsis Heart failure with reduced ejection fraction Hypothyroidism Small bowel obstruction Lactic acid acidosis Creatinine elevation Acute UTI Anticoagulated COVID Recurrent intestinal obstruction History of colon cancer Chronic anticoagulation Portal hypertension Cirrhosis TIPs placed (?when, 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, Dx [facility] as per pt Non-insulin dependent type 2 diabetes mellitus Incontinence Hypertension Scleral icterus Surgical History S/P TIPS (transjugular intrahepatic portosystemic shunt) H/O left hemicolectomy Colostomy in place Social History Smoking/Tobacco Use Status: Former Tobacco Use Smoking risk assessment performed?: Yes Alcohol Intake: former Drug use: Never Substance use type: does not use Housing: house Do you feel safe at home: Yes Do you feel safe in your relationship?: Yes Additional Social history: from [facility] Time Spent with Patient Time Spent with Patient: 45-69 minutes Time was spent: preparing to see the patient(eg.review tests), ordering medications,tests, procedures, referring, communicating with other health eye care professional, counseling the patient and care coordination
[2025-05-10 11:27] VITALS: BP 133/72; PULSE 73; RESP 18; TEMP 36.6; O2SAT 95
--- NOTE | 2025-05-10 11:55 | PDOC.CMDIS ---
Date of service: 05/10/25 Time of Service: 11:56 LACE Index Scoring Tool Questions: Length of Stay (in days): 1 Was the patient admitted via the E.D.?: Yes Comorbidities: Previous M.I., Diabetes w/o Complication, Congestive Heart Failure, Chronic Pulmonary Disease, Any Tumor and Liver or Renal Disease E.D. Visits: 8 Answers: Total Score: 13 Risk of Readmission: High Risk Care Management Discharge Plan Reason for Hospitalization: CHF and anemia Discharge Plan: Merrill will be transferred back to [facility]. He will follow up with the facility providers and plan of care and and transport via [facility]. Patient/Family Education Needs: Review discharge instructions, discuss Ask Me Three Services Needed at Discharge: [facility] SDOH Health Related Social Needs: Health related social needs transpo insecurity material hardship house/econ circumstance daily activities lonely/isolated education Health related social needs details has some concerns Health related social needs details: has some concerns
== END 2025-05-10 12:54 | disposition skilled nursing facility (03) ==
LOC: ER 11:28 → MS 13:43
PROVIDERS: Admitting Provider Family Medicine; Emergency Provider Student in an Organized Health Care Education/Training Program; PCP Nurse Practitioner Adult Health; Responsible Provider Nurse Practitioner Family; Visit Provider Family Medicine
DX: K94.01 Colostomy hemorrhage (principal); I13.0 Hypertensive heart and chronic kidney disease with heart failure and stage 1 through stage 4 chronic kidney disease, or unspecified chronic kidney disease; D62 Acute posthemorrhagic anemia; I50.23 Acute on chronic systolic (congestive) heart failure; K94.03 Colostomy malfunction; I48.20 Chronic atrial fibrillation, unspecified; D69.6 Thrombocytopenia, unspecified; Z79.84 Long term (current) use of oral hypoglycemic drugs; K74.60 Unspecified cirrhosis of liver; E03.9 Hypothyroidism, unspecified; F33.9 Major depressive disorder, recurrent, unspecified; N40.0 Benign prostatic hyperplasia without lower urinary tract symptoms; E66.01 Morbid (severe) obesity due to excess calories; K21.9 Gastro-esophageal reflux disease without esophagitis; K76.6 Portal hypertension; R16.1 Splenomegaly, not elsewhere classified; E11.22 Type 2 diabetes mellitus with diabetic chronic kidney disease; N18.2 Chronic kidney disease, stage 2 (mild); G47.33 Obstructive sleep apnea (adult) (pediatric); Z68.41 Body mass index [BMI] 40.0-44.9, adult; Z90.49 Acquired absence of other specified parts of digestive tract; Z85.038 Personal history of other malignant neoplasm of large intestine; R29.6 Repeated falls; R74.8 Abnormal levels of other serum enzymes; I25.10 Atherosclerotic heart disease of native coronary artery without angina pectoris
CPT/HCPCS: 00123; 36415; 36430; 76604; 80053; 85027; 86850; 86900; 86901; 86920; 93005; 96374; 99291; 71045; 83735; 83880; 84484; 85014; 85018; 85025; 85610; 85730; 93010; 99223; 99232; 99239; G0378; J1815; J1938; P9016

== ENCOUNTER 2025-05-15 11:20 | Inpatient (IN) | payer OTHER, SELFPAY ==
[2025-05-15] VITALS (23 sets, daily range): BP systolic 142–157; BP diastolic 42–84; PULSE 59–85; RESP 15–26; TEMP 36.5–37.2; O2SAT 93–96
--- NOTE | 2025-05-15 11:15 | RT.EKG_ITS ---
APPROVED REPORT Exam: Resting ECG Reason for Exam: SOB Patient Location: E HR:70 bpm ECG Measurements Heart Rate 70 AXIS CA [id number] P [id number] QRSd 122 QRS 47 QT 438 T 224 QTc 472 Conclusion Atrial fibrillation, rate 70 LBBB and PVCs unchanged from priors No STEMI
--- NOTE | 2025-05-15 11:45 | DI.RAD_ITS ---
Exam(s) XR CHEST 2V PA LATERAL EXAM: XR CHEST 2V PA LATERAL CLINICAL HISTORY: shortness of breath, wheezing TECHNIQUE: 2D digital imaging was performed of the chest. Two images were obtained. PA and lateral views were obtained. COMPARISON: CR,XR XR CHEST 2V PA LATERAL from 05/12/2024 CR XR CHEST 1V IN DI DEPT from 08/27/2024 CR XR PORTABLE CHEST AP from 12/17/2024 CR,XR XR PORTABLE CHEST AP from 02/26/2025 CR,XR XR PORTABLE CHEST AP from 05/08/2025 FINDINGS: MEDIASTINUM: Normal. HEART: Heart size is at the upper limits of normal. PULMONARY VASCULATURE: There is pulmonary venous congestion. LUNGS: There are no focal consolidating infiltrates. PLEURAL SPACE: There are small bilateral pleural effusions. BONE:Within normal limits for the patient's age. OTHER FINDINGS:Normal. IMPRESSION: 1. There is pulmonary venous congestion and small pleural effusions. 2. No focal consolidating infiltrates are present. DATA REPOSITORY: RADIATION DOSE DELIVERED:
[2025-05-15] MEDS: methylPREDNISolone SUCC 125 MG VIAL IVP (12:54)
[2025-05-15 12:55] LABS: Abs Immature Grans 0.01 10^3/uL (0.0-0.06); HCT 25.2 % (40.0-50.0); HGB 7.3 g/dL (13.5-17.5); Immature Grans % 0.3 %; MCH 22.4 pg (27.0-33.0); MCHC 29.0 % (32.0-36.0); MCV 77 fL (80-95); MPV 11.2 fL (8.0-11.0); RBC 3.26 10^6/uL (4.36-5.78); RDW 18.2 % (11.8-14.1); RDW-SD 50.5 fL; WBC 3.04 10^3/uL (4.4-10.8)
[2025-05-15] MEDS: Albuterol/Ipratropium 3 ML UPD VIAL 6 ML UPD (12:55)
[2025-05-15 13:07] LABS: Hypochromasia 1+; Microcytosis 1+; Platelet Count 58 10^3/uL (130-400)
[2025-05-15 13:16] LABS: ALT 15 U/L (16-63); AST 21 U/L (15-37); Albumin 2.4 g/dL (3.4-5.0); Alkaline Phosphatase 146 U/L (46-116); Anion Gap 11.0 mmol/L (3-11); BUN 19 mg/dL (7-18); Bilirubin, Total 1.2 mg/dL (0.2-1.0); CO2 24.0 mmol/L (21.0-32.0); Calcium 8.2 mg/dL (8.5-10.1); Chloride 107 mmol/L (98-107); Estimated GFR 68.71 (mL/min/1.73m2); Glucose 216 mg/dL (74-106); NT-proBNP 884 pg/mL (<300); Potassium 3.5 mmol/L (3.5-5.1); Sodium 142 mmol/L (136-145); Total Protein 5.7 g/dL (6.4-8.2); Troponin I 41 ng/L (<or=76)
[2025-05-15 13:22] LABS: COVID-19 PCR Negative (Negative); RSV PCR Negative (Negative)
[2025-05-15 14:05] LABS: Troponin I 45 ng/L (<or=76)
[2025-05-15] MEDS: Furosemide 100 MG/10 ML VIAL 80 MG IVP (14:25)
[2025-05-15 14:39] LABS: Abs Immature Grans 0.02 10^3/uL (0.0-0.06); Glucose >=1000 mg/dL (Negative); HCT 25.5 % (40.0-50.0); HGB 7.3 g/dL (13.5-17.5); Immature Grans % 0.7 %; MCH 22.3 pg (27.0-33.0); MCHC 28.6 % (32.0-36.0); MCV 78 fL (80-95); MPV 11.3 fL (8.0-11.0); RBC 3.27 10^6/uL (4.36-5.78); RDW 18.2 % (11.8-14.1); RDW-SD 51.5 fL; WBC 2.70 10^3/uL (4.4-10.8)
[2025-05-15 14:42] LABS: Ferritin 33 ng/mL (26-388)
[2025-05-15 14:55] LABS: C & S Indicated? No; RBC 0-2 HPF (0-2)
[2025-05-15 14:57] LABS: Iron 13 ug/dL (65-175); Total Iron Binding Capacity 324 ug/dL (250-450); Transferrin Sat 4 % (20-55)
[2025-05-15 15:05] LABS: Platelet Count 57 10^3/uL (130-400)
[2025-05-15 15:11] LABS: Anisocytosis 2+; Hypochromasia 1+; Microcytosis 1+; Poikilocytes 2+
--- NOTE | 2025-05-15 15:37 | W.ED.GENAD ---
Discharge Plan Disposition Patient Disposition: Admit to [facility] Condition: Serious Discharge Details Clinical Impression: CHF (congestive heart failure), Anemia Primary Care Provider: Maryann Whitt ED Provider: Irina Petersen Home Meds and New Rx's Prescriptions: No Action pantoprazole 40 mg Tablet,Delayed Release (Dr/Ec) 40 mg PO DAILY Eliquis 5 mg Tablet 5 mg PO BID Patient Comments: taking per pt nitroglycerin 0.4 mg Tablet, Sublingual 0.4 mg sublingual Q5 MIN PRN X3 PRNQty: 30 0RF rifaximin 550 mg Tablet 550 mg PO BID prazosin 5 mg capsule 10 mg PO QPM tamsulosin 0.4 mg Capsule 0.4 mg PO DAILY metformin 500 mg tablet extended release 24hr 1,000 mg PO BID bisacodyl [Dulcolax (bisacodyl)] 10 mg suppository 10 mg MN DAILY PRN ondansetron 4 mg tablet,disintegrating 4 mg PO Q6H PRN potassium chloride 20 mEq tablet extended release 20 meq PO DAILY spironolactone [Aldactone] 25 mg tablet 12.5 mg PO DAILY venlafaxine [Effexor XR] 75 mg capsule,extended release 24hr 75 mg PO DAILY Patient Comments: takes w/150mg capsule for total dose of 225mg daily lactulose 20 gram/30 mL Solution 15 ml PO TID Rx Instructions: to maintain colostomy output of 3-4 bags per day diclofenac sodium [Arthritis Pain (diclofenac)] 1 % gel 2 g topical TID Rx Instructions: apply to single elbow, wrist or hand; for hand includes palm/fingers/back of hand melatonin 3 mg tablet 6 mg PO HS Patient Comments: TAKE ONE TABLET BY MOUTH AT BEDTIME empagliflozin 25 mg Tablet 25 mg PO DAILY levothyroxine 200 mcg Tablet 100 mcg PO QAM Qty: 0 0RF venlafaxine 150 mg capsule,extended release 24hr 150 mg PO DAILY acetaminophen [Tylenol] 325 mg Capsule 650 mg PO Q6H MDD 3000 PRN losartan [Cozaar] 50 mg tablet 50 mg PO BID furosemide [Lasix] 40 mg tablet See Rx Instructions .ROUTE .COMPLEX Qty: 60 0RF Rx Instructions: 40 mg every morning and 20 mg early afternoon HPI General Date/Time Provider Initiated Documentation: 05/15/25 11:27. HPI Narrative: 80-year-old male with CHF (EF 35%), thrombocytopenia, paroxysmal atrial fibrillation on Eliquis, obstructive sleep apnea, and sepsis. [facility] Reportedly 85% O2 saturation per EMS, placed on CPAP. On arrival, saturation 91%, dyspneic, respiratory distress. Alert and oriented x 2, able to speak in full sentences. Increased work of breathing and wheezing after 2 DuoNeb treatments. Crackles at lung bases, tachypnea. Amerge score 18, indicating increased risk of outpatient mortality. On baseline Lasix. CBC shows anemia (Hb 7.3, Hct 25), significant drop over past month. Platelet count 57, consistent with thrombocytopenia. BMP shows no significant acute abnormalities. Transferrin 4%, ferritin 33. BNP 800, troponins negative x 2. Iron level 13. Last EF 35% several months ago. Given 80 mg IV Lasix due to crackles at reassessment. Reports mild improvement, approximately 700 mL urinary output. No visible blood in stoma, anemia appears to be microcytic anemia of chronic disease. Discussed case with admitting hospitalist. Full code status. Related Data Home Medications ?Medication ?Instructions ?Recorded ?Confirmed apixaban 5 mg tablet (Eliquis) 5 mg PO BID 11/08/22 05/15/25 pantoprazole 40 mg tablet,delayed 40 mg PO DAILY 11/08/22 05/15/25 release nitroglycerin 0.4 mg sublingual 0.4 mg sublingual Q5 MIN PRN X3 02/10/23 05/15/25 tablet PRN #30 tabs empagliflozin 25 mg tablet 25 mg PO DAILY 04/09/23 05/15/25 levothyroxine 200 mcg tablet 100 mcg (1/2 x 200 mcg) PO QAM #0 04/10/23 05/15/25 tabs rifaximin 550 mg tablet 550 mg PO BID 07/07/23 05/15/25 venlafaxine 150 mg 150 mg PO DAILY 03/05/24 05/15/25 capsule,extended release 24 hr acetaminophen 325 mg capsule 650 mg PO Q6H PRN 05/12/24 05/15/25 (Tylenol) prazosin 5 mg capsule 10 mg PO QPM 08/04/24 05/15/25 tamsulosin 0.4 mg capsule 0.4 mg PO DAILY 08/04/24 05/15/25 metformin 500 mg tablet,extended 1,000 mg PO BID 01/17/25 05/15/25 release 24hr (osmotic) bisacodyl 10 mg rectal suppository 10 mg MN DAILY PRN 02/26/25 05/15/25 (Dulcolax (bisacodyl)) lactulose 20 gram/30 mL oral 15 ml PO TID 02/26/25 05/15/25 solution ondansetron 4 mg disintegrating 4 mg PO Q6H PRN 02/26/25 05/15/25 tablet potassium chloride 20 mEq 20 meq PO DAILY 02/26/25 05/15/25 tablet,extended release spironolactone 25 mg tablet 12.5 mg PO DAILY 02/26/25 05/15/25 (Aldactone) venlafaxine 75 mg capsule,extended 75 mg PO DAILY 02/26/25 05/15/25 release 24 hr (Effexor XR) diclofenac sodium 1 % topical gel 2 g topical TID 04/02/25 05/15/25 (Arthritis Pain (diclofenac)) losartan 50 mg tablet (Cozaar) 50 mg PO BID 04/19/25 05/15/25 furosemide 40 mg tablet (Lasix) See Rx Instructions .Route 05/10/25 05/15/25 .COMPLEX #60 tabs melatonin 3 mg tablet 6 mg PO HS 05/15/25 05/15/25 Previous Rx's ?Medication ?Instructions ?Recorded nitroglycerin 0.4 mg sublingual 0.4 mg sublingual Q5 MIN PRN X3 02/10/23 tablet PRN #30 tabs levothyroxine 200 mcg tablet 100 mcg (1/2 x 200 mcg) PO QAM #0 04/10/23 tabs furosemide 40 mg tablet (Lasix) See Rx Instructions .Route 05/10/25 .COMPLEX #60 tabs Allergies Allergy/AdvReac Type Severity Reaction Status Date / Time Penicillins Allergy Mild Itching Verified 05/15/25 11:49 mussels Allergy Anaphylaxis Verified 05/15/25 11:49 morphine AdvReac Severe vomiting Verified 05/15/25 11:49 General Stated Complaint: RespSymp ANNA: 3 Exam Narrative Exam Narrative: Constitutional: Alert and oriented x 2, in respiratory distress, able to speak in full sentences. Cardiovascular: Tachycardia present. Respiratory: Increased work of breathing, wheezing, crackles at the bases of both lungs, tachypnea. Neurological: Alert and oriented x 2. 2+ edema to bilateral lower extremities nontender abdominal exam no rashes or lesions Course Vital Signs Vital signs: Vital Signs Temperature 37.2 C 05/15/25 11:21 Pulse 68 05/15/25 11:21 Respiratory Rate 20 05/15/25 11:21 Blood Pressure 157/42 H 05/15/25 11:21 Pulse Oximetry 96 05/15/25 11:21 Temperature 37.2 C 05/15/25 11:21 Temperature Source Tympanic 05/15/25 11:21 Pulse 72 05/15/25 13:53 Respiratory Rate 22 05/15/25 13:53 Respiratory Effort Short of Breath 05/15/25 13:53 Respiratory Depth Normal 05/15/25 13:53 Blood Pressure 142/65 H 05/15/25 13:53 Blood Pressure Position Sitting 05/15/25 13:53 Pulse Oximetry 96 05/15/25 13:53 Oxygen Delivery Method Room Air 05/15/25 13:53 Oxygen Flow Rate 0 05/15/25 13:53 Lab/Test Results Lab/Test Results: Laboratory Tests Range/Units 05/15/25 05/15/25 05/15/25 12:03 12:47 13:44 WBC (4.4-10.8) 10^3/uL 3.04 L RBC (4.36-5.78) 10^6/uL 3.26 L Hgb (13.5-17.5) g/dL 7.3 L Hct (40.0-50.0) % 25.2 L MCV (80-95) fL 77 L MCH (27.0-33.0) pg 22.4 L MCHC (32.0-36.0) % 29.0 L RDW (11.8-14.1) % 18.2 H Plt Count (130-400) 10^3/uL 58 L MPV (8.0-11.0) fL 11.2 H Immature Gran % % 0.3 Neutrophils % % 69.6 Lymphocytes % % 10.9 Monocytes % % 10.9 Eosinophils % % 7.6 Basophils % % 0.7 Nucleated RBC % (0.0-0.3) % 0.0 Absolute Neutrophils (1.2-6.7) 10^3/uL 2.12 Absolute Lymphocytes (1.2-3.4) 10^3/uL 0.33 L Absolute Monocytes (0.1-0.8) 10^3/uL 0.33 Absolute Eosinophils (0.0-0.7) 10^3/uL 0.23 Absolute Basophils (0.0-0.2) 10^3/uL 0.02 RBC Morphology See Below Hypochromasia 1+ Poikilocytosis Anisocytosis Microcytosis 1+ Sodium (136-145) mmol/L 142 Potassium (3.5-5.1) mmol/L 3.5 Chloride (98-107) mmol/L 107 Carbon Dioxide (21.0-32.0) mmol/L 24.0 Anion Gap (3-11) mmol/L 11.0 BUN (7-18) mg/dL 19 H Creatinine (0.70-1.30) mg/dL 1.1 Est GFR (CKD-EPI 2020) (mL/min/1.73m2) 68.71 Glucose (74-106) mg/dL 216 H Calcium (8.5-10.1) mg/dL 8.2 L Iron (65-175) ug/dL 13 L TIBC (250-450) ug/dL 324 Transferrin % Sat (20-55) % 4 L Ferritin (26-388) ng/mL 33 Total Bilirubin (0.2-1.0) mg/dL 1.2 H AST (15-37) U/L 21 ALT (16-63) U/L 15 L Alkaline Phosphatase (46-116) U/L 146 H Troponin I (<or=76) ng/L 41 45 NT-Pro-B Natriuret Pep (<300) pg/mL 884 H Total Protein (6.4-8.2) g/dL 5.7 L Albumin (3.4-5.0) g/dL 2.4 L Urine Color (Yellow) Urine Clarity (Clear) Urine pH (5-8) Ur Specific [place] (1.005-1.025) Urine Protein (Neg-Trace) mg/dL Urine Ketones (Negative) mg/dL Urine Blood (Negative) Urine Nitrite (Negative) Urine Bilirubin (Negative) Urine Urobilinogen (Up to 0.2) mg/dL Ur Leukocyte Esterase (Negative) Urine RBC (0-2) HPF Urine WBC (0-5) HPF Ur Epithelial Cells (Negative) HPF Urine Crystals (Negative) HPF Urine Bacteria (Negative) HPF Urine Casts (Negative) LPF Urine Mucus (Negative) Ur Culture Indicated? Urine Glucose (Negative) mg/dL COVID-19 Source Nasopharynx SARS-CoV-2 (PCR) (Negative) Negative Influenza Type A (PCR) (Negative) Negative Influenza Type B (PCR) (Negative) Negative RSV (PCR) (Negative) Negative Range/Units 05/15/25 14:31 WBC (4.4-10.8) 10^3/uL 2.70 L RBC (4.36-5.78) 10^6/uL 3.27 L Hgb (13.5-17.5) g/dL 7.3 L Hct (40.0-50.0) % 25.5 L MCV (80-95) fL 78 L MCH (27.0-33.0) pg 22.3 L MCHC (32.0-36.0) % 28.6 L RDW (11.8-14.1) % 18.2 H Plt Count (130-400) 10^3/uL 57 L MPV (8.0-11.0) fL 11.3 H Immature Gran % % 0.7 Neutrophils % % 78.5 Lymphocytes % % 8.9 Monocytes % % 5.9 Eosinophils % % 5.6 Basophils % % 0.4 Nucleated RBC % (0.0-0.3) % 0.0 Absolute Neutrophils (1.2-6.7) 10^3/uL 2.12 Absolute Lymphocytes (1.2-3.4) 10^3/uL 0.24 L Absolute Monocytes (0.1-0.8) 10^3/uL 0.16 Absolute Eosinophils (0.0-0.7) 10^3/uL 0.15 Absolute Basophils (0.0-0.2) 10^3/uL 0.01 RBC Morphology See Below Hypochromasia 1+ Poikilocytosis 2+ Anisocytosis 2+ Microcytosis 1+ Sodium (136-145) mmol/L Potassium (3.5-5.1) mmol/L Chloride (98-107) mmol/L Carbon Dioxide (21.0-32.0) mmol/L Anion Gap (3-11) mmol/L BUN (7-18) mg/dL Creatinine (0.70-1.30) mg/dL Est GFR (CKD-EPI 2020) (mL/min/1.73m2) Glucose (74-106) mg/dL Calcium (8.5-10.1) mg/dL Iron (65-175) ug/dL TIBC (250-450) ug/dL Transferrin % Sat (20-55) % Ferritin (26-388) ng/mL Total Bilirubin (0.2-1.0) mg/dL AST (15-37) U/L ALT (16-63) U/L Alkaline Phosphatase (46-116) U/L Troponin I (<or=76) ng/L NT-Pro-B Natriuret Pep (<300) pg/mL Total Protein (6.4-8.2) g/dL Albumin (3.4-5.0) g/dL Urine Color (Yellow) Yellow Urine Clarity (Clear) Clear Urine pH (5-8) 6.0 Ur Specific [place] (1.005-1.025) 1.010 Urine Protein (Neg-Trace) mg/dL Negative Urine Ketones (Negative) mg/dL Negative Urine Blood (Negative) Trace-lysed H Urine Nitrite (Negative) Negative Urine Bilirubin (Negative) Negative Urine Urobilinogen (Up to 0.2) mg/dL 1.0 H Ur Leukocyte Esterase (Negative) Negative Urine RBC (0-2) HPF 0-2 Urine WBC (0-5) HPF 3-5 Ur Epithelial Cells (Negative) HPF Rare Urine Crystals (Negative) HPF Negative Urine Bacteria (Negative) HPF Few Urine Casts (Negative) LPF Negative Urine Mucus (Negative) Negative Ur Culture Indicated? No Urine Glucose (Negative) mg/dL >=1000 H COVID-19 Source SARS-CoV-2 (PCR) (Negative) Influenza Type A (PCR) (Negative) Influenza Type B (PCR) (Negative) RSV (PCR) (Negative) Medical Decision Making Laboratory Studies CBC: Hemoglobin 7.3, hematocrit 25, platelet count 57. BMP: No significant acute abnormality. Transferrin 4%, ferritin 33, BNP 800, troponins negative x2, iron level 13. Imaging Chest x-ray: Pleural effusions, venous congestion. Initial Assessment: 80-year-old male with CHF, thrombocytopenia, paroxysmal atrial fibrillation, obstructive sleep apnea, sepsis, presents with dyspnea and hypoxia. Oxygen saturation 85% per EMS, 91% on arrival. Respiratory distress, alert and oriented x2, able to speak in full sentences. Increased work of breathing, wheezing, crackles at lung bases after DuoNebs. Tachypnea. Chest x-ray shows pleural effusions and venous congestion. MEWS score 18. Differential Diagnosis: - CHF: Dyspnea, hypoxia, pleural effusions, venous congestion on chest x-ray, BNP 800, troponins negative x2. Plan: Admission for further management, 80 mg IV Lasix administered. - Acute on Chronic Anemia: Hemoglobin 7.3, hematocrit 25, significant drop over past month, microcytic anemia, iron 13, transferrin saturation 4%, ferritin 33. Plan: Type and screen ordered, consider transfusion pending hospitalist evaluation. - Thrombocytopenia: Platelet count 57, consistent with prior history. Plan: Monitor. - Paroxysmal Atrial Fibrillation: On chronic anticoagulation with Eliquis. Plan: Continue current management. - Obstructive Sleep Apnea: Placed on CPAP due to hypoxia and respiratory distress. Plan: Continue CPAP. - Sepsis: No visible sign of pneumonia on chest x-ray. Plan: Monitor, Solu-Medrol administered. ED Course: - Oxygen saturation 85% per EMS - Placed on CPAP - Oxygen saturation 91% on arrival - Two DuoNeb treatments administered - Chest x-ray obtained, shows pleural effusions and venous congestion - 80 mg IV Lasix administered - Solu-Medrol administered - CBC shows hemoglobin 7.3, hematocrit 25, platelet count 57 - BMP obtained, no significant acute abnormality - BNP 800 - Troponins negative x2 - Type and screen ordered - Approximately 700 mL urinary output after Lasix - Case discussed with admitting hospitalist Final Assessment: Patient with CHF, acute on chronic anemia, thrombocytopenia, paroxysmal atrial fibrillation, obstructive sleep apnea, sepsis. Dyspnea and hypoxia improved with CPAP and DuoNebs. Chest x-ray shows pleural effusions and venous congestion. Mild improvement after 80 mg IV Lasix, 700 mL urinary output. Anemia likely chronic disease, type and screen ordered, transfusion pending evaluation. Admission required for further management. Clinical Impression: - CHF - Acute on Chronic Anemia - Thrombocytopenia - Paroxysmal Atrial Fibrillation - Obstructive Sleep Apnea - Sepsis Disposition: - Admission: Admission required for CHF and acute anemia. Quality:SDOH Health Related Social Needs: Health related social needs transpo insecurity material hardship house/econ circumstance daily activities lonely/isolated education Health related social needs details has some concerns PFSH All Active Problems (Updated 05/15/25 @ 15:44 by STEFANO Carrasquillo) Anemia (Chronic) History of creation of ostomy (Acute) Contusion (Acute) Liver mass (Acute) Vomiting (Acute) Abdominal pain (Acute) Elevated lactic acid level (Acute) Acute UTI (Acute) Symptomatic bradycardia (Acute) Acute hypokalemia (Acute) Family conflict (Acute) Chest pain in adult (Acute) Fall (Acute) Chronic low back pain (Chronic) Hematuria (Acute) Leukopenia (Acute) Oral candidiasis (Acute) Sepsis syndrome (Acute) Gram-negative bacteremia (Acute) Cellulitis (Acute) Lower urinary obstructive symptom (Acute) Anemia of chronic disease (Acute) Ventricular ectopy (Acute) Sinus bradycardia (Acute) Leukocytosis (Acute) Hypertension (Chronic) Elevated lactic acid level (Acute) CHF (congestive heart failure) (Chronic) No-show for appointment (Acute) Left rotator cuff tear (Acute) Acute UTI (urinary tract infection) (Acute) Weakness (Acute) Non-ST elevation [place] (NSTEMI) (Acute) Pre-syncope (Acute) Frequent falls (Acute) Orthostatic hypotension (Acute) Hypokalemia (Acute) Bradycardia (Acute) Multiple falls (Acute) Acute metabolic encephalopathy (Acute) Medication monitoring encounter (Acute) Chest pain (Acute) CHF (congestive heart failure) (Chronic) EF 25%- 2023 Medical History Chronic heart failure with reduced ejection fraction (HFrEF, <= 40%) Anemia Cirrhosis of liver without ascites Diabetes PAF (paroxysmal atrial fibrillation) Goals of care, counseling/discussion Lactic acidosis UTI (urinary tract infection) Urinary tract infection Advanced care planning/counseling discussion Palliative care encounter [facility]ed by [facility] Bowel obstruction Sepsis Heart failure with reduced ejection fraction Hypothyroidism Small bowel obstruction Lactic acid acidosis Creatinine elevation Acute UTI Anticoagulated COVID Recurrent intestinal obstruction History of colon cancer Chronic anticoagulation Portal hypertension Cirrhosis [place]IPs [place] [facility] [place] 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, Dx [facility] as per pt Non-insulin dependent type 2 diabetes mellitus Incontinence Hypertension Scleral icterus Surgical History S/P TIPS (transjugular intrahepatic portosystemic shunt) H/O left hemicolectomy Colostomy in place Social History Smoking/Tobacco Use Status: Former Tobacco Use Smoking risk assessment performed?: Yes Alcohol Intake: former Drug use: Never Substance use type: does not use Housing: house Do you feel safe at home: Yes Do you feel safe in your relationship?: Yes Additional Social history: from [facility]
--- NOTE | 2025-05-15 15:45 | W.PM.HP.N ---
Date of service: 05/15/25 Time of Service: 15:45 Assessment and Plan Assessment and plan (1) Acute on chronic HFrEF (heart failure with reduced ejection fraction): Assessment and plan: Presents with increased shortness of breath and hypoxia now weaned off oxygen after receiving 80 of IV Lasix March 01 echo showing EF 35% with global hypokinesis, mild/mod atrial dilation No chest pain no acute ischemic EKG changes troponins negative and flat at 40 Shortness of breath likely also exacerbated by chronic anemia, which is multifactorial Monitor intake and output closely Daily weights continue IV diuresis consider updating limited echo (2) Anemia associated with acute blood loss: Assessment and plan: Hgb 7.3, likely delusional in the setting of heart failure exacerbation, blood pressure and heart rate are stable follow serial hemoglobin and hematocrit every 6 hours in setting of fluid overload, being diuresed, chronic blood loss from stoma, on anticoagulation and iron deficiency add iron supplementation for iron deficiency. IV and oral (3) History of creation of ostomy: Status: Acute Assessment and plan: history of total colectomy routine Ostomy care (4) Chronic atrial fibrillation: Assessment and plan: On apixaban - rate controlled (5) Thrombocytopenia: Assessment and plan: Chronic, platelet count down to 57, follow closely (6) Diabetes mellitus treated with oral medication: Assessment and plan: A1C 6.8 in mid-March, home regimen empagliflozin, metformin, holding both SSI sensitive (7) Major depression, recurrent, chronic: Assessment and plan: Continue home venlafaxine (8) BPH (benign prostatic hyperplasia): Assessment and plan: Continue home tamsulosin monitor for retention (9) Chronic GERD: Assessment and plan: Continue home pantoprazole (10) Severe obesity (BMI >= 40): (11) Cirrhosis of liver without ascites: Assessment and plan: History of hepatic encephalopathy, monitor for mental status changes - awake, alert oriented, conversant Continue home furosemide, spironolactone, rifaximin (12) Hypothyroidism: Assessment and plan: Continue home levothyroxine discussed with DR Blancas History of Present Illness Narrative: Patient seen for evaluation of shortness of breath and hypoxia. he has had no fever. Workup in the emergency department most consistent with fluid overload. He was given 80 mg of IV Lasix with improvement in his respiratory status. He has no oxygen requirements. Hemoglobin persistently low thought to be due to blood loss anemia from bleeding in his stoma site. His apixaban has been held but then restarted. Hemodynamically he is stable. Iron studies added in the emergency department do show evidence of iron deficient anemia. Hospitalist service asked to admit the MedSurg unit for further management. He is not tachycardic and is normotensive he has been weaned off oxygen and has no oxygen requirements at time of admission.. Hemoglobin is likely diluted in the setting of exacerbation of his heart failure. Review of Systems All systems reviewed & are unremarkable except as noted in HPI and below PFSH All Active Problems (Updated 05/15/25 @ 15:44 by STEFANO Carrasquillo) Anemia (Chronic) History of creation of ostomy (Acute) Contusion (Acute) Liver mass (Acute) Vomiting (Acute) Abdominal pain (Acute) Elevated lactic acid level (Acute) Acute UTI (Acute) Symptomatic bradycardia (Acute) Acute hypokalemia (Acute) Family conflict (Acute) Chest pain in adult (Acute) Fall (Acute) Chronic low back pain (Chronic) Hematuria (Acute) Leukopenia (Acute) Oral candidiasis (Acute) Sepsis syndrome (Acute) Gram-negative bacteremia (Acute) Cellulitis (Acute) Lower urinary obstructive symptom (Acute) Anemia of chronic disease (Acute) Ventricular ectopy (Acute) Sinus bradycardia (Acute) Leukocytosis (Acute) Hypertension (Chronic) Elevated lactic acid level (Acute) CHF (congestive heart failure) (Chronic) No-show for appointment (Acute) Left rotator cuff tear (Acute) Acute UTI (urinary tract infection) (Acute) Weakness (Acute) Non-ST elevation CA (NSTEMI) (Acute) Pre-syncope (Acute) Frequent falls (Acute) Orthostatic hypotension (Acute) Hypokalemia (Acute) Bradycardia (Acute) Multiple falls (Acute) Acute metabolic encephalopathy (Acute) Medication monitoring encounter (Acute) Chest pain (Acute) CHF (congestive heart failure) (Chronic) EF 25%- 2023 Medical History Chronic heart failure with reduced ejection fraction (HFrEF, <= 40%) Anemia Cirrhosis of liver without ascites Diabetes PAF (paroxysmal atrial fibrillation) Goals of care, counseling/discussion Lactic acidosis UTI (urinary tract infection) Urinary tract infection Advanced care planning/counseling discussion Palliative care encounter Followed by [facility] Bowel obstruction Sepsis Heart failure with reduced ejection fraction Hypothyroidism Small bowel obstruction Lactic acid acidosis Creatinine elevation Acute UTI Anticoagulated COVID Recurrent intestinal obstruction History of colon cancer Chronic anticoagulation Portal hypertension Cirrhosis TIPs placed (?when, [facility]? 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, Dx [facility] as per pt Non-insulin dependent type 2 diabetes mellitus Incontinence Hypertension Scleral icterus Surgical History S/P TIPS (transjugular intrahepatic portosystemic shunt) H/O left hemicolectomy Colostomy in place Social History Smoking/Tobacco Use Status: Former Tobacco Use Smoking risk assessment performed?: Yes Alcohol Intake: former Drug use: Never Substance use type: does not use Housing: assisted living facility Do you feel safe at home: Yes Do you feel safe in your relationship?: Yes Additional Social history: from [facility] Meds Allergies and Home Medications Allergies Allergy/AdvReac Type Severity Reaction Status Date / Time Penicillins Allergy Mild Itching Verified 05/15/25 11:49 mussels Allergy Anaphylaxis Verified 05/15/25 11:49 morphine AdvReac Severe vomiting Verified 05/15/25 11:49 Home Medications ?Medication ?Instructions ?Recorded ?Confirmed ?Type apixaban 5 mg tablet (Eliquis) 5 mg PO BID 11/08/22 05/15/25 History pantoprazole 40 mg tablet,delayed 40 mg PO DAILY 11/08/22 05/15/25 History release nitroglycerin 0.4 mg sublingual 0.4 mg sublingual Q5 MIN PRN X3 02/10/23 05/15/25 Rx tablet PRN #30 tabs empagliflozin 25 mg tablet 25 mg PO DAILY 04/09/23 05/15/25 History levothyroxine 200 mcg tablet 100 mcg (1/2 x 200 mcg) PO QAM #0 04/10/23 05/15/25 Rx tabs rifaximin 550 mg tablet 550 mg PO BID 07/07/23 05/15/25 History venlafaxine 150 mg 150 mg PO DAILY 03/05/24 05/15/25 History capsule,extended release 24 hr acetaminophen 325 mg capsule 650 mg PO Q6H PRN 05/12/24 05/15/25 History (Tylenol) prazosin 5 mg capsule 10 mg PO QPM 08/04/24 05/15/25 History tamsulosin 0.4 mg capsule 0.4 mg PO DAILY 08/04/24 05/15/25 History metformin 500 mg tablet,extended 1,000 mg PO BID 01/17/25 05/15/25 History release 24hr (osmotic) bisacodyl 10 mg rectal suppository [address] DAILY PRN 02/26/25 05/15/25 History (Dulcolax (bisacodyl)) lactulose 20 gram/30 mL oral 15 ml PO TID 02/26/25 05/15/25 History solution ondansetron 4 mg disintegrating 4 mg PO Q6H PRN 02/26/25 05/15/25 History tablet potassium chloride 20 mEq 20 meq PO DAILY 02/26/25 05/15/25 History tablet,extended release spironolactone 25 mg tablet 12.5 mg PO DAILY 02/26/25 05/15/25 History (Aldactone) venlafaxine 75 mg capsule,extended 75 mg PO DAILY 02/26/25 05/15/25 History release 24 hr (Effexor XR) diclofenac sodium 1 % topical gel 2 g topical TID 04/02/25 05/15/25 History (Arthritis Pain (diclofenac)) losartan 50 mg tablet (Cozaar) 50 mg PO BID 04/19/25 05/15/25 History furosemide 40 mg tablet (Lasix) See Rx Instructions .Route 05/10/25 05/15/25 Rx .COMPLEX #60 tabs melatonin 3 mg tablet 6 mg PO HS 05/15/25 05/15/25 History ferrous sulfate 325 mg (65 mg 325 mg PO DAILY #0 tabs 05/16/25 Rx iron) tablet Exam Narrative Exam Narrative: Chronically ill-appearing male of stated age no acute distress head is atraumatic eyes nonicteric noninjected Cardiovascular regular rate and rhythm respirations even and unlabored breath sounds diminished in the bases abdomen obese soft nontender full range of motion to extremities. Trace edema to left greater than right lower Neurologic awake alert oriented no focal deficits Psychiatric normal mood and affect Results Labs 05/15/25 21:55 05/15/25 21:55 Labs: Laboratory Results - last 24 hr 05/15/25 05/15/25 05/15/25 12:03 12:47 13:44 WBC 3.04 L RBC 3.26 L Hgb 7.3 L Hct 25.2 L MCV 77 L MCH 22.4 L MCHC 29.0 L RDW 18.2 H Plt Count 58 L MPV 11.2 H Immature Gran % 0.3 Neutrophils % 69.6 Lymphocytes % 10.9 Monocytes % 10.9 Eosinophils % 7.6 Basophils % 0.7 Nucleated RBC % 0.0 Absolute Neutrophils 2.12 Absolute Lymphocytes 0.33 L Absolute Monocytes 0.33 Absolute Eosinophils 0.23 Absolute Basophils 0.02 RBC Morphology See Below Hypochromasia 1+ Poikilocytosis Anisocytosis Microcytosis 1+ Sodium 142 Potassium 3.5 Chloride 107 Carbon Dioxide 24.0 Anion Gap 11.0 BUN 19 H Creatinine 1.1 Est GFR (CKD-EPI 2020) 68.71 Glucose 216 H Calcium 8.2 L Iron 13 L TIBC 324 Transferrin % Sat 4 L Ferritin 33 Total Bilirubin 1.2 H AST 21 ALT 15 L Alkaline Phosphatase 146 H Troponin I 41 45 NT-Pro-B Natriuret Pep 884 H Total Protein 5.7 L Albumin 2.4 L Urine Color Urine Clarity Urine pH Ur Specific [place] Urine Protein Urine Ketones Urine Blood Urine Nitrite Urine Bilirubin Urine Urobilinogen Ur Leukocyte Esterase Urine RBC Urine WBC Ur Epithelial Cells Urine Crystals Urine Bacteria Urine Casts Urine Mucus Ur Culture Indicated? Urine Glucose COVID-19 Source Nasopharynx SARS-CoV-2 (PCR) Negative Influenza Type A (PCR) Negative Influenza Type B (PCR) Negative RSV (PCR) Negative 05/15/25 14:31 WBC 2.70 L RBC 3.27 L Hgb 7.3 L Hct 25.5 L MCV 78 L MCH 22.3 L MCHC 28.6 L RDW 18.2 H Plt Count 57 L MPV 11.3 H Immature Gran % 0.7 Neutrophils % 78.5 Lymphocytes % 8.9 Monocytes % 5.9 Eosinophils % 5.6 Basophils % 0.4 Nucleated RBC % 0.0 Absolute Neutrophils 2.12 Absolute Lymphocytes 0.24 L Absolute Monocytes 0.16 Absolute Eosinophils 0.15 Absolute Basophils 0.01 RBC Morphology See Below Hypochromasia 1+ Poikilocytosis 2+ Anisocytosis 2+ Microcytosis 1+ Sodium Potassium Chloride Carbon Dioxide Anion Gap BUN Creatinine Est GFR (CKD-EPI 2020) Glucose Calcium Iron TIBC Transferrin % Sat Ferritin Total Bilirubin AST ALT Alkaline Phosphatase Troponin I NT-Pro-B Natriuret Pep Total Protein Albumin Urine Color Yellow Urine Clarity Clear Urine pH 6.0 Ur Specific [place] 1.010 Urine Protein Negative Urine Ketones Negative Urine Blood Trace-lysed H Urine Nitrite Negative Urine Bilirubin Negative Urine Urobilinogen 1.0 H Ur Leukocyte Esterase Negative Urine RBC 0-2 Urine WBC 3-5 Ur Epithelial Cells Rare Urine Crystals Negative Urine Bacteria Few Urine Casts Negative Urine Mucus Negative Ur Culture Indicated? No Urine Glucose >=1000 H COVID-19 Source SARS-CoV-2 (PCR) Influenza Type A (PCR) Influenza Type B (PCR) RSV (PCR) Last Vital Signs Temp 37.2 C 05/15/25 11:21 Pulse 72 05/15/25 13:53 Resp 22 05/15/25 13:53 BP 142/65 H 05/15/25 13:53 Pulse Ox 96 05/15/25 13:53 Time Spent Time spent with Patient: 40-54 minutes Time was spent: preparing to see the patient(eg.review tests), obtaining and/or reviewing separately otained hiistory, ordering medications,tests, procedures, indepentently interpreting results and counseling the patient
--- NOTE | 2025-05-15 17:26 | W.PC.ACHO ---
Registration Status: REG ER Primary Language: Preferred Language: ED Information & Data Chief Complaint RespSymp 05/15/25 15:41 Triage Note Patient complaining of SOB. 05/15/25 11:21 Staff report SOB with movement. Staff reported low O2 levels. Medical / Surgical History (Last Reviewed 05/09/25 @ 10:25 by Pedro Peralta DO) Chronic GERD BPH (benign prostatic hyperplasia) Major depression, recurrent, chronic Severe obesity (BMI >= 40) Diabetes mellitus treated with oral medication Anemia associated with acute blood loss Acute on chronic HFrEF (heart failure with reduced ejection fraction) Anemia Splenomegaly Thrombocytopenia Colostomy care Thrombocytopenia Chronic atrial fibrillation Type 2 diabetes mellitus CHF exacerbation ANETTE (obstructive sleep apnea) Chronic heart failure with reduced ejection fraction (HFrEF, <= 40%) Anemia Cirrhosis of liver without ascites Diabetes PAF (paroxysmal atrial fibrillation) Goals of care, counseling/discussion Lactic acidosis UTI (urinary tract infection) Urinary tract infection Advanced care planning/counseling discussion Palliative care encounter Bowel obstruction Sepsis Heart failure with reduced ejection fraction Hypothyroidism Small bowel obstruction Lactic acid acidosis Creatinine elevation Acute UTI Anticoagulated COVID Recurrent intestinal obstruction History of colon cancer Chronic anticoagulation Portal hypertension Cirrhosis Confusion Colon cancer Depression Endocarditis Non-insulin dependent type 2 diabetes mellitus Incontinence Hypertension Scleral icterus (Last Reviewed 05/09/25 @ 10:25 by Pedro Peralta DO) S/P TIPS (transjugular intrahepatic portosystemic shunt) H/O left hemicolectomy Colostomy in place Most Recent Vital Signs Temperature 37.2 C 05/15/25 11:21 Temperature Source Tympanic 05/15/25 11:21 Pulse 72 05/15/25 13:53 Respiratory Rate 22 05/15/25 13:53 Respiratory Effort Short of Breath 05/15/25 13:53 Respiratory Depth Normal 05/15/25 13:53 Blood Pressure 142/65 H 05/15/25 13:53 Blood Pressure Position Sitting 05/15/25 13:53 Pulse Oximetry 96 05/15/25 13:53 Oxygen Delivery Method Room Air 05/15/25 13:53 Oxygen Flow Rate 0 05/15/25 13:53 Allergies Penicillins Allergy (Mild, Verified 05/15/25 11:49) Itching mussels Allergy (Verified 05/15/25 11:49) Anaphylaxis morphine Adverse Reaction (Severe, Verified 05/15/25 11:49) vomiting IV IV Catheter Type [Right Peripheral IV Antecubital] IV Catheter Gauge [Right 18 Antecubital] Diagnostics 05/15/25 05/15/25 05/15/25 Range/Units 15:42 14:31 13:44 WBC 2.70 L (4.4-10.8) 10^3/uL RBC 3.27 L (4.36-5.78) 10^6/uL Hgb 7.3 L (13.5-17.5) g/dL Hct 25.5 L (40.0-50.0) % MCV 78 L (80-95) fL MCH 22.3 L (27.0-33.0) pg MCHC 28.6 L (32.0-36.0) % RDW 18.2 H (11.8-14.1) % Plt Count 57 L (130-400) 10^3/uL MPV 11.3 H (8.0-11.0) fL Reticulocyte % (Auto) 1.2 (0.5-2.4) % Immature Gran % 0.7 % Neutrophils % 78.5 % Lymphocytes % 8.9 % Monocytes % 5.9 % Eosinophils % 5.6 % Basophils % 0.4 % Nucleated RBC % 0.0 (0.0-0.3) % Absolute Neutrophils 2.12 (1.2-6.7) 10^3/uL Absolute Lymphocytes 0.24 L (1.2-3.4) 10^3/uL Absolute Monocytes 0.16 (0.1-0.8) 10^3/uL Absolute Eosinophils 0.15 (0.0-0.7) 10^3/uL Absolute Basophils 0.01 (0.0-0.2) 10^3/uL RBC Morphology See Below Hypochromasia 1+ Poikilocytosis 2+ Anisocytosis 2+ Microcytosis 1+ Sodium (136-145) mmol/L Potassium (3.5-5.1) mmol/L Chloride (98-107) mmol/L Carbon Dioxide (21.0-32.0) mmol/L Anion Gap (3-11) mmol/L BUN (7-18) mg/dL Creatinine (0.70-1.30) mg/dL Est GFR (CKD-EPI 2020) (mL/min/1.73m2) Glucose (74-106) mg/dL Calcium (8.5-10.1) mg/dL Iron (65-175) ug/dL TIBC (250-450) ug/dL Transferrin % Sat (20-55) % Ferritin (26-388) ng/mL Total Bilirubin (0.2-1.0) mg/dL AST (15-37) U/L ALT (16-63) U/L Alkaline Phosphatase (46-116) U/L Troponin I 45 (<or=76) ng/L NT-Pro-B Natriuret Pep (<300) pg/mL Total Protein (6.4-8.2) g/dL Albumin (3.4-5.0) g/dL Urine Color Yellow (Yellow) Urine Clarity Clear (Clear) Urine pH 6.0 (5-8) Ur Specific [place] 1.010 (1.005-1.025) Urine Protein Negative (Neg-Trace) mg/dL Urine Ketones Negative (Negative) mg/dL Urine Blood Trace-lysed H (Negative) Urine Nitrite Negative (Negative) Urine Bilirubin Negative (Negative) Urine Urobilinogen 1.0 H (Up to 0.2) mg/dL Ur Leukocyte Esterase Negative (Negative) Urine RBC 0-2 (0-2) HPF Urine WBC 3-5 (0-5) HPF Ur Epithelial Cells Rare (Negative) HPF Urine Crystals Negative (Negative) HPF Urine Bacteria Few (Negative) HPF Urine Casts Negative (Negative) LPF Urine Mucus Negative (Negative) Ur Culture Indicated? No Urine Glucose >=1000 H (Negative) mg/dL COVID-19 Source SARS-CoV-2 (PCR) (Negative) Influenza Type A (PCR) (Negative) Influenza Type B (PCR) (Negative) RSV (PCR) (Negative) ABO/Rh O Positive Antibody Screen NEGATIVE 05/15/25 05/15/25 Range/Units 12:47 12:03 WBC 3.04 L (4.4-10.8) 10^3/uL RBC 3.26 L (4.36-5.78) 10^6/uL Hgb 7.3 L (13.5-17.5) g/dL Hct 25.2 L (40.0-50.0) % MCV 77 L (80-95) fL MCH 22.4 L (27.0-33.0) pg MCHC 29.0 L (32.0-36.0) % RDW 18.2 H (11.8-14.1) % Plt Count 58 L (130-400) 10^3/uL MPV 11.2 H (8.0-11.0) fL Reticulocyte % (Auto) (0.5-2.4) % Immature Gran % 0.3 % Neutrophils % 69.6 % Lymphocytes % 10.9 % Monocytes % 10.9 % Eosinophils % 7.6 % Basophils % 0.7 % Nucleated RBC % 0.0 (0.0-0.3) % Absolute Neutrophils 2.12 (1.2-6.7) 10^3/uL Absolute Lymphocytes 0.33 L (1.2-3.4) 10^3/uL Absolute Monocytes 0.33 (0.1-0.8) 10^3/uL Absolute Eosinophils 0.23 (0.0-0.7) 10^3/uL Absolute Basophils 0.02 (0.0-0.2) 10^3/uL RBC Morphology See Below Hypochromasia 1+ Poikilocytosis Anisocytosis Microcytosis 1+ Sodium 142 (136-145) mmol/L Potassium 3.5 (3.5-5.1) mmol/L Chloride 107 (98-107) mmol/L Carbon Dioxide 24.0 (21.0-32.0) mmol/L Anion Gap 11.0 (3-11) mmol/L BUN 19 H (7-18) mg/dL Creatinine 1.1 (0.70-1.30) mg/dL Est GFR (CKD-EPI 2020) 68.71 (mL/min/1.73m2) Glucose 216 H (74-106) mg/dL Calcium 8.2 L (8.5-10.1) mg/dL Iron 13 L (65-175) ug/dL TIBC 324 (250-450) ug/dL Transferrin % Sat 4 L (20-55) % Ferritin 33 (26-388) ng/mL Total Bilirubin 1.2 H (0.2-1.0) mg/dL AST 21 (15-37) U/L ALT 15 L (16-63) U/L Alkaline Phosphatase 146 H (46-116) U/L Troponin I 41 (<or=76) ng/L NT-Pro-B Natriuret Pep 884 H (<300) pg/mL Total Protein 5.7 L (6.4-8.2) g/dL Albumin 2.4 L (3.4-5.0) g/dL Urine Color (Yellow) Urine Clarity (Clear) Urine pH (5-8) Ur Specific [place] (1.005-1.025) Urine Protein (Neg-Trace) mg/dL Urine Ketones (Negative) mg/dL Urine Blood (Negative) Urine Nitrite (Negative) Urine Bilirubin (Negative) Urine Urobilinogen (Up to 0.2) mg/dL Ur Leukocyte Esterase (Negative) Urine RBC (0-2) HPF Urine WBC (0-5) HPF Ur Epithelial Cells (Negative) HPF Urine Crystals (Negative) HPF Urine Bacteria (Negative) HPF Urine Casts (Negative) LPF Urine Mucus (Negative) Ur Culture Indicated? Urine Glucose (Negative) mg/dL COVID-19 Source Nasopharynx SARS-CoV-2 (PCR) Negative (Negative) Influenza Type A (PCR) Negative (Negative) Influenza Type B (PCR) Negative (Negative) RSV (PCR) Negative (Negative) ABO/Rh Antibody Screen Intake and Output - 24 Hour Total 05/15/25 11:19 thru 05/15/25 17:19 Output Total 650 Balance -650 Weight 92.079 kg Output: Urine 650 Falls Risk Assessment History of Falls No History 05/15/25 13:53 Contributing Factors No Factors 05/15/25 13:53 Ambulatory Aids Independent 05/15/25 13:53 Tubes/Lines None 05/15/25 13:53 Gait Evaluation No gait disturbance 05/15/25 13:53 Cognition No cognitive impairment 05/15/25 13:53 Fall Total Score 0 05/15/25 13:53 Level of Risk Standard/Low Risk 05/15/25 13:53 Problems (Last Reviewed 05/09/25 @ 10:25 by Pedro Peralta DO) History of creation of ostomy (Acute) v v v v v v v v v Sending and/or Receiving Nurses: Please use comment section below to note any information pertinent to the patient hand-off not included above. Information / Comments: Report received from:becka
[2025-05-15] MEDS: IRON SUCROSE COMPLEX 300 MG in Normal Saline 250 ML 167 MG IVPB (18:08)
[2025-05-15 19:02] LABS: MRSA PCR Negative (Negative)
[2025-05-15] MEDS: Melatonin 3 MG TAB 6 MG PO (20:08)
[2025-05-15] MEDS: Lactulose 20 GM/30 ML CUP 10 GM PO (20:08)
[2025-05-15] MEDS: Prazosin 5 MG CAP 10 MG PO (20:08)
[2025-05-15] MEDS: Losartan 50 MG TAB PO (20:08)
[2025-05-15] MEDS: Rifaximin 550 MG TAB PO (20:08)
[2025-05-15 22:06] LABS: HCT 26.2 % (40.0-50.0); HGB 7.6 g/dL (13.5-17.5)
[2025-05-15 22:19] LABS: Glucose 394 mg/dL (74-106)
[2025-05-15] MEDS: Insulin Aspart 300 UNITS/3 ML PEN SC (22:42)
[2025-05-16 07:38] VITALS: BP 116/48; PULSE 65; RESP 17; TEMP 36.5; O2SAT 95
[2025-05-16] MEDS: Insulin Aspart 300 UNITS/3 ML PEN SC (08:07)
[2025-05-16] MEDS: Furosemide 40 MG/4 ML VIAL IVP (08:08)
[2025-05-16] MEDS: Tamsulosin 0.4 MG CAPCR PO (08:08)
[2025-05-16] MEDS: Lactulose 20 GM/30 ML CUP 10 GM PO (08:08)
[2025-05-16] MEDS: Rifaximin 550 MG TAB PO (08:09)
[2025-05-16] MEDS: Losartan 50 MG TAB PO (08:09)
[2025-05-16] MEDS: Spironolactone 25 MG TAB 12.5 MG PO (08:09)
[2025-05-16] MEDS: Venlafaxine 150 MG CAPCR PO (08:09)
[2025-05-16] MEDS: Ferrous Sulfate 325 MG TAB PO (08:09)
[2025-05-16] MEDS: Potassium Chloride 20 MEQ TABCR PO (08:09)
[2025-05-16] MEDS: Venlafaxine 75 MG CAPCR PO (08:09)
[2025-05-16] MEDS: Pantoprazole 40 MG TABCR PO (08:09)
--- NOTE | 2025-05-16 08:57 | DSE_ITS ---
Date of service: 05/16/25 Time of Service: 08:57 DS: Diagnosis Discharge Diagnosis (1) Acute on chronic HFrEF (heart failure with reduced ejection fraction): (2) Anemia associated with acute blood loss: (3) History of creation of ostomy: Status: Acute (4) Chronic atrial fibrillation: (5) Thrombocytopenia: (6) Diabetes mellitus treated with oral medication: (7) Major depression, recurrent, chronic: (8) BPH (benign prostatic hyperplasia): (9) Chronic GERD: (10) Severe obesity (BMI >= 40): (11) Cirrhosis of liver without ascites: (12) Hypothyroidism: Discharge Plan Disposition Patient Disposition[facility] Facility[facility]SNF[facility] Condition: Improving Discharge Details Reason For Visit: Heart Failure, Anemia Admit Date/Time: 05/15/25 16:40 Admit Provider: Osmar Blancas Attending Provider: Osmar Blancas Primary Care Provider: Maryann Whitt Hospital Course Hospital Course: This is a 80-year-old male patient multiple comorbidities including heart failure with reduced ejection fraction EF 30% chronic ostomy, anticoagulated on apixaban, cirrhosis of the liver, NSTEMI presents to the emergency department with increased shortness of breath and hypoxia workup in the emergency department most consistent with fluid overload. He received 80 mg of IV Lasix with improvement in his symptoms and was weaned off oxygen in the emergency department. He was also noted to have a hemoglobin of 7.3. He does have chronic anemia likely multifactorial but does have some bleeding from his stoma and has required a blood transfusion approximately a month ago. Hemoglobin had been stable in the 7 and 8. This is thought to be delusional in the setting of acute heart failure. 8 repeat hemoglobin after diuresis increased to 7.6. Hemodynamically he remained stable with no active evidence of acute bleeding. Iron studies were also obtained and he was noted to be iron deficient with an iron level of 13. He received 300 mg IV iron sucrose and was started on supplemental oral iron. Overnight he remained hemodynamically stable. He was refusing blood work in the morning. He is oxygenating in the mid to high 90s on room air with stable heart rate blood pressure and no active complaints. He is requesting discharge back to [facility] and rehab. He is medically stable to be discharged. Recommendations for outpatient provider is to follow hemoglobin and hematocrit, continue iron supplementation outpatient. Consider risks and benefits of ongoing Eliquis in the setting of ongoing bleeding. Discharge discussed with Dr. Payne [place] Meds and New Rx's Prescriptions: New ferrous sulfate 325 mg (65 mg iron) Tablet 325 mg PO DAILY Qty: 0 0RF Continued pantoprazole 40 mg Tablet,Delayed Release (Dr/Ec) 40 mg PO DAILY Eliquis 5 mg Tablet 5 mg PO BID Patient Comments: taking per pt nitroglycerin 0.4 mg Tablet, Sublingual 0.4 mg sublingual Q5 MIN PRN X3 PRNQty: 30 0RF rifaximin 550 mg Tablet 550 mg PO BID prazosin 5 mg capsule 10 mg PO QPM tamsulosin 0.4 mg Capsule 0.4 mg PO DAILY metformin 500 mg tablet extended release 24hr 1,000 mg PO BID bisacodyl [Dulcolax (bisacodyl)] 10 mg suppository 10 mg NM DAILY PRN ondansetron 4 mg tablet,disintegrating 4 mg PO Q6H PRN potassium chloride 20 mEq tablet extended release 20 meq PO DAILY spironolactone [Aldactone] 25 mg tablet 12.5 mg PO DAILY venlafaxine [Effexor XR] 75 mg capsule,extended release 24hr 75 mg PO DAILY Patient Comments: takes w/150mg capsule for total dose of 225mg daily lactulose 20 gram/30 mL Solution 15 ml PO TID Rx Instructions: to maintain colostomy output of 3-4 bags per day diclofenac sodium [Arthritis Pain (diclofenac)] 1 % gel 2 g topical TID Rx Instructions: apply to single elbow, wrist or hand; for hand includes palm/fingers/back of hand melatonin 3 mg tablet 6 mg PO HS Patient Comments: TAKE ONE TABLET BY MOUTH AT BEDTIME empagliflozin 25 mg Tablet 25 mg PO DAILY levothyroxine 200 mcg Tablet 100 mcg PO QAM Qty: 0 0RF venlafaxine 150 mg capsule,extended release 24hr 150 mg PO DAILY acetaminophen [Tylenol] 325 mg Capsule 650 mg PO Q6H MDD 3000 PRN losartan [Cozaar] 50 mg tablet 50 mg PO BID furosemide [Lasix] 40 mg tablet See Rx Instructions .ROUTE .COMPLEX Qty: 60 0RF Rx Instructions: 40 mg every morning and 20 mg early afternoon Discharge Instructions Instructions: Anemia caused by low iron, Heart Failure ED, Heart failure Additional Instructions: Your hemoglobin was 7.6 last evening which does not require a blood transfusion at this point as you have no reports of chest pain shortness of breath or oxygen requirements at this time. You did refuse to have your blood drawn this morning, please discuss when this should be repeated with your outpatient provider but there is no evidence of active bleeding at this time. Your vital signs have been stable. Your workup also did show that you have iron deficient anemia. You did receive IV iron and have been started on oral iron supplementation. Referrals: Maryann Whitt [Primary Care Provider, Medicine] Activity:: Activity as Tolerated Equipment/Supplies:: No Equipment Needed Diet:: As Tolerated Discharge Orders Discharge Orders: Discharge Order (Routine); Ordered 05/16/25 Ordered By: Bella Santo DS: Summary Time Spent with Patient providing and/or coordinating discharge services: Greater than 30 minutes Status at Discharge Functional status at discharge: wheelchair bound Overall status at discharge: patient is back to baseline Mental Status: mental status grossly normal Speech and Movement: speech and movement normal Mood: congruent mood Affect: normal affect Quality:SDOH Health Related Social Needs: Health related social needs transpo insecurity Health related social needs details sometimes has trou ble getting a ride to places - has to wait on son to be available Health related social needs details: sometimes has trouble getting a ride to places - has to wait on son to be available Exam Narrative Exam Narrative: Chronically ill-appearing male of stated age no acute distress head is atraumatic eyes nonicteric noninjected Posterior pharynx clear with white patchy coat on left posterior pharynx, and tongue Cardiovascular regular rate and rhythm respirations even and unlabored breath sounds diminished in the bases abdomen obese soft nontender full range of motion to extremities. Trace edema to left greater than right lower extremity erythema receding well within the skin markings Neurologic awake alert oriented no focal deficits Psychiatric normal mood and affect Psych Mental Status: mental status grossly normal Speech and Movement: speech and movement normal Mood: congruent mood Affect: normal affect DS: Data Vitals/I&O Vitals and I&O: Vital Signs Temperature 36.5 C 05/16/25 07:38 Temperature Source Temporal Artery Scan 05/16/25 07:38 Pulse 65 05/16/25 07:38 Pulse Rhythm Irregular 05/15/25 17:43 Pulse 81 05/15/25 17:20 Respiratory Rate 17 05/16/25 07:38 Respiratory Effort Short of Breath 05/15/25 13:53 Respiratory Depth Normal 05/15/25 17:43 Respiratory Pattern Normal 05/15/25 17:43 Blood Pressure 116/48 L 05/16/25 07:38 Blood Pressure Mean 70 05/16/25 07:38 Blood Pressure Position Sitting 05/15/25 13:53 Pulse Oximetry 95 05/16/25 07:38 Oxygen Delivery Method Room Air 05/16/25 07:38 Oxygen Flow Rate 0 05/16/25 07:38 Pain Level 0 05/15/25 17:43 Comment rn notified 05/16/25 07:38 Intake & Output 05/15/25 05/15/25 05/16/25 11:59 23:59 11:59 Output Total 1400 / 1400 400 / 400 Balance -1400 / -1400 -400 / -400 Weight 92.079 kg 101.151 kg Output: Urine 1400 / 1400 400 / 400 Other: Urine Color Yellow Yellow Urine Appearance Clear Clear Urine Odor Strong Strong Data Completed and Pending Labs on day of discharge: Labs from last 24 hours 05/16/25 05/15/25 05/15/25 05:35 21:55 17:34 WBC Pending RBC Pending Hgb Pending 7.6 L Hct Pending 26.2 L MCV Pending MCH Pending MCHC Pending RDW Pending Plt Count Pending MPV Pending Reticulocyte % (Auto) Immature Gran % Pending Neutrophils % Pending Lymphocytes % Pending Monocytes % Pending Eosinophils % Pending Basophils % Pending Nucleated RBC % Absolute Neutrophils Pending Absolute Lymphocytes Pending Absolute Monocytes Pending Absolute Eosinophils Pending Absolute Basophils Pending RBC Morphology Hypochromasia Poikilocytosis Anisocytosis Microcytosis Sodium Pending Potassium Pending Chloride Pending Carbon Dioxide Pending Anion Gap Pending BUN Pending Creatinine Pending Est GFR (CKD-EPI 2020) Pending Glucose Pending 394 H Calcium Pending Iron TIBC Transferrin % Sat Ferritin Total Bilirubin Pending AST Pending ALT Pending Alkaline Phosphatase Pending Troponin I NT-Pro-B Natriuret Pep Total Protein Pending Albumin Pending Urine Color Urine Clarity Urine pH Ur Specific [place] Urine Protein Urine Ketones Urine Blood Urine Nitrite Urine Bilirubin Urine Urobilinogen Ur Leukocyte Esterase Urine RBC Urine WBC Ur Epithelial Cells Urine Crystals Urine Bacteria Urine Casts Urine Mucus Ur Culture Indicated? Urine Glucose COVID-19 Source SARS-CoV-2 (PCR) Influenza Type A (PCR) Influenza Type B (PCR) RSV (PCR) MRSA (TEM-PCR) Negative ABO/Rh Antibody Screen 05/15/25 05/15/25 05/15/25 15:42 14:31 13:44 WBC 2.70 L RBC 3.27 L Hgb 7.3 L Hct 25.5 L MCV 78 L MCH 22.3 L MCHC 28.6 L RDW 18.2 H Plt Count 57 L MPV 11.3 H Reticulocyte % (Auto) 1.2 Immature Gran % 0.7 Neutrophils % 78.5 Lymphocytes % 8.9 Monocytes % 5.9 Eosinophils % 5.6 Basophils % 0.4 Nucleated RBC % 0.0 Absolute Neutrophils 2.12 Absolute Lymphocytes 0.24 L Absolute Monocytes 0.16 Absolute Eosinophils 0.15 Absolute Basophils 0.01 RBC Morphology See Below Hypochromasia 1+ Poikilocytosis 2+ Anisocytosis 2+ Microcytosis 1+ Sodium Potassium Chloride Carbon Dioxide Anion Gap BUN Creatinine Est GFR (CKD-EPI 2020) Glucose Calcium Iron TIBC Transferrin % Sat Ferritin Total Bilirubin AST ALT Alkaline Phosphatase Troponin I 45 NT-Pro-B Natriuret Pep Total Protein Albumin Urine Color Yellow Urine Clarity Clear Urine pH 6.0 Ur Specific [place] 1.010 Urine Protein Negative Urine Ketones Negative Urine Blood Trace-lysed H Urine Nitrite Negative Urine Bilirubin Negative Urine Urobilinogen 1.0 H Ur Leukocyte Esterase Negative Urine RBC 0-2 Urine WBC 3-5 Ur Epithelial Cells Rare Urine Crystals Negative Urine Bacteria Few Urine Casts Negative Urine Mucus Negative Ur Culture Indicated? No Urine Glucose >=1000 H COVID-19 Source SARS-CoV-2 (PCR) Influenza Type A (PCR) Influenza Type B (PCR) RSV (PCR) MRSA (TEM-PCR) ABO/Rh O Positive Antibody Screen NEGATIVE 05/15/25 05/15/25 12:47 12:03 WBC 3.04 L RBC 3.26 L Hgb 7.3 L Hct 25.2 L MCV 77 L MCH 22.4 L MCHC 29.0 L RDW 18.2 H Plt Count 58 L MPV 11.2 H Reticulocyte % (Auto) Immature Gran % 0.3 Neutrophils % 69.6 Lymphocytes % 10.9 Monocytes % 10.9 Eosinophils % 7.6 Basophils % 0.7 Nucleated RBC % 0.0 Absolute Neutrophils 2.12 Absolute Lymphocytes 0.33 L Absolute Monocytes 0.33 Absolute Eosinophils 0.23 Absolute Basophils 0.02 RBC Morphology See Below Hypochromasia 1+ Poikilocytosis Anisocytosis Microcytosis 1+ Sodium 142 Potassium 3.5 Chloride 107 Carbon Dioxide 24.0 Anion Gap 11.0 BUN 19 H Creatinine 1.1 Est GFR (CKD-EPI 2020) 68.71 Glucose 216 H Calcium 8.2 L Iron 13 L TIBC 324 Transferrin % Sat 4 L Ferritin 33 Total Bilirubin 1.2 H AST 21 ALT 15 L Alkaline Phosphatase 146 H Troponin I 41 NT-Pro-B Natriuret Pep 884 H Total Protein 5.7 L Albumin 2.4 L Urine Color Urine Clarity Urine pH Ur Specific [place] Urine Protein Urine Ketones Urine Blood Urine Nitrite Urine Bilirubin Urine Urobilinogen Ur Leukocyte Esterase Urine RBC Urine WBC Ur Epithelial Cells Urine Crystals Urine Bacteria Urine Casts Urine Mucus Ur Culture Indicated? Urine Glucose COVID-19 Source Nasopharynx SARS-CoV-2 (PCR) Negative Influenza Type A (PCR) Negative Influenza Type B (PCR) Negative RSV (PCR) Negative MRSA (TEM-PCR) ABO/Rh Antibody Screen PFSH All Active Problems (Updated 05/15/25 @ 15:44 by STEFANO Carrasquillo) Anemia (Chronic) History of creation of ostomy (Acute) Contusion (Acute) Liver mass (Acute) Vomiting (Acute) Abdominal pain (Acute) Elevated lactic acid level (Acute) Acute UTI (Acute) Symptomatic bradycardia (Acute) Acute hypokalemia (Acute) Family conflict (Acute) Chest pain in adult (Acute) Fall (Acute) Chronic low back pain (Chronic) Hematuria (Acute) Leukopenia (Acute) Oral candidiasis (Acute) Sepsis syndrome (Acute) Gram-negative bacteremia (Acute) Cellulitis (Acute) Lower urinary obstructive symptom (Acute) Anemia of chronic disease (Acute) Ventricular ectopy (Acute) Sinus bradycardia (Acute) Leukocytosis (Acute) Hypertension (Chronic) Elevated lactic acid level (Acute) CHF (congestive heart failure) (Chronic) No-show for appointment (Acute) Left rotator cuff tear (Acute) Acute UTI (urinary tract infection) (Acute) Weakness (Acute) Non-ST elevation RI (NSTEMI) (Acute) Pre-syncope (Acute) Frequent falls (Acute) Orthostatic hypotension (Acute) Hypokalemia (Acute) Bradycardia (Acute) Multiple falls (Acute) Acute metabolic encephalopathy (Acute) Medication monitoring encounter (Acute) Chest pain (Acute) CHF (congestive heart failure) (Chronic) EF 25%- 2023 Medical History Chronic heart failure with reduced ejection fraction (HFrEF, <= 40%) Anemia Cirrhosis of liver without ascites Diabetes PAF (paroxysmal atrial fibrillation) Goals of care, counseling/discussion Lactic acidosis UTI (urinary tract infection) Urinary tract infection Advanced care planning/counseling discussion Palliative care encounter Followed by [facility] Bowel obstruction Sepsis Heart failure with reduced ejection fraction Hypothyroidism Small bowel obstruction Lactic acid acidosis Creatinine elevation Acute UTI Anticoagulated COVID Recurrent intestinal obstruction History of colon cancer Chronic anticoagulation Portal hypertension Cirrhosis TIPs placed (?when, 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, Dx [facility] as per pt Non-insulin dependent type 2 diabetes mellitus Incontinence Hypertension Scleral icterus Surgical History S/P TIPS (transjugular intrahepatic portosystemic shunt) H/O left hemicolectomy Colostomy in place Social History Smoking/Tobacco Use Status: Former Tobacco Use Smoking risk assessment performed?: Yes Alcohol Intake: former Drug use: Never Substance use type: does not use Housing: assisted living facility Do you feel safe at home: Yes Do you feel safe in your relationship?: Yes Additional Social history: from [facility] Time Spent with Patient Time Spent with Patient: 45-69 minutes Time was spent: preparing to see the patient(eg.review tests), obtaining and/or reviewing separately otained hiistory, ordering medications,tests, procedures, indepentently interpreting results, counseling the patient and care coordination
--- NOTE | 2025-05-16 13:37 | PDOC.CMDIS ---
Date of service: 05/16/25 Time of Service: 13:37 LACE Index Scoring Tool Questions: Length of Stay (in days): 1 Was the patient admitted via the E.D.?: Yes Comorbidities: Previous M.I., Diabetes w/o Complication, Congestive Heart Failure, Chronic Pulmonary Disease, Any Tumor and Liver or Renal Disease E.D. Visits: 9 Answers: Total Score: 13 Risk of Readmission: High Risk Care Management Discharge Plan Reason for Hospitalization: CHF Discharge Plan: Merrill will be transferred back to [facility] where he resides. He will follow up with his community providers and plan of care and transport via [facility]. Patient/Family Education Needs: Review of discharge instructions, limitations, follow up plan and discuss Ask Me Three Services Needed at Discharge: Long-Term Facility SDOH Health Related Social Needs: Health related social needs transpo insecurity Health related social needs details sometimes has trouble getting a ride to places - has to wait on son to be available Health related social needs details: sometimes has trouble getting a ride to places - has to wait on son to be available
--- NOTE | 2025-05-16 13:44 | PDOC.CMIN ---
Date of service: 05/16/25 Time of Service: 13:44 Care Management Initial Assmt Initial Assessment Reason for Hospitalization: CHF Functional Status/Living Situation Patient Presentation: Merrill was sitting up in bed when CM met with him. He was pleasant in interaction and engaged easily with CM, well known to him from many prior hospitalizations.Merrill was admitted with CHF. He was diuresed and no longer requires supplemental oxygen. he stated he feels well and is looking forward to returning to the SNF. Town of Residence: [facility] Resides with: Other (SNF) Significant Other/Family: Local Natural Supports: Cely, son Scott Employment Status: Retired Instrumental Activities of Daily Living (ADLs): Requires support Medications Medication Management: No Issues/Barriers identified Physical Functioning/Mobility Assistive Device: wheelchair and walker Advance Directives Advance Directives: Do you have an Advance Directive: Y 08/05/24, 02:24 AD On File at [facility]: N 08/05/24, 10:22 Date Asked 05/15/25 05/15/25, 11:58 AD Date Reviewed COLST On File at [facility] No 12/04/23, 16:58 COLST Date Scanned Portal Pt does not currently have a portal and education provided: Yes Insurance Coverage/Financial Issues Insurance: Medicare [facility] Care Team Visit Care Team Role Provider Type Bella Santo NP NURSE PRACTITIONER Maryann Whitt Primary Care Provider NURSE PRACTITIONER STEFANO Carrasquillo Emergency Provider [employer] MANAGER Osmar Blancas MD Admit Provider [facility] STAFF PHYSICIAN Attending Provider Discharge Potential Discharge Needs: PCP F/U Appt Anticipated Barriers to Discharge: None Identified Patient/Family Education Needs: Review discharge instructions, discuss Ask Me Three Transportation: [facility] Plan: Merrill will be discharged back to [facility]. He will [facility] up with [facility] and will transport via [facility]. Social Determinants of Health Screening Social Determinants of health last assessed in clinic: 05/16/25 Will the Patient Participate in the Screening?: Yes Do you worry about having a steady place to live?: no Problems where you live: no known problems In the past 12 months, have you had to go without electric, gas, oil or water in your home?: no 1. Within the past 12 months, we worried whether our food would run out before we got money to buy more.: Never true 2. Within the past 12 months, the food we bought just didn't last and we didn't have money to get more.: Never true Has lack of transportation kept you from medical appointments or from doing things needed for daily living?: yes Has anyone in your life made you feel unsafe or unsupported?: no How hard is it for you to pay for the very basics like food, housing, medical care, and heating? Would you say it is:: Not hard at all Do you want help finding or keeping work or a job?: I do not need or want help If for any reason you need help with day-to-day activities such as bathing, preparing meals, shopping, managing finances, etc., do you get the help you need?: I don?t need any help How often do you feel lonely or isolated from those around you?: Never Do you speak a language other than Maltese at home?: No Comments: pt lives at [facility] Health Related Social Needs Health related social needs: transportation insecurity (Z59.82) Health related social needs details: sometimes has trouble getting a ride to places - has to wait on son to be available [facility] All Active Problems (Updated 05/15/25 @ 15:44 by STEFANO Carrasquillo) Anemia (Chronic) History of creation of ostomy (Acute) Contusion (Acute) Liver mass (Acute) Vomiting (Acute) Abdominal pain (Acute) Elevated lactic acid level (Acute) Acute UTI (Acute) Symptomatic bradycardia (Acute) Acute hypokalemia (Acute) Family conflict (Acute) Chest pain in adult (Acute) Fall (Acute) Chronic low back pain (Chronic) Hematuria (Acute) Leukopenia (Acute) Oral candidiasis (Acute) Sepsis syndrome (Acute) Gram-negative bacteremia (Acute) Cellulitis (Acute) Lower urinary obstructive symptom (Acute) Anemia of chronic disease (Acute) Ventricular ectopy (Acute) Sinus bradycardia (Acute) Leukocytosis (Acute) Hypertension (Chronic) Elevated lactic acid level (Acute) CHF (congestive heart failure) (Chronic) No-show for appointment (Acute) Left rotator cuff tear (Acute) Acute UTI (urinary tract infection) (Acute) Weakness (Acute) Non-ST elevation CT (NSTEMI) (Acute) Pre-syncope (Acute) Frequent falls (Acute) Orthostatic hypotension (Acute) Hypokalemia (Acute) Bradycardia (Acute) Multiple falls (Acute) Acute metabolic encephalopathy (Acute) Medication monitoring encounter (Acute) Chest pain (Acute) CHF (congestive heart failure) (Chronic) EF 25%- 2023 Medical History Chronic heart failure with reduced ejection fraction (HFrEF, <= 40%) Anemia Cirrhosis of liver without ascites Diabetes PAF (paroxysmal atrial fibrillation) Goals of care, counseling/discussion Lactic acidosis UTI (urinary tract infection) Urinary tract infection Advanced care planning/counseling discussion Palliative care encounter Followed by [facility] Bowel obstruction Sepsis Heart failure with reduced ejection fraction Hypothyroidism Small bowel obstruction Lactic acid acidosis Creatinine elevation Acute UTI Anticoagulated COVID Recurrent intestinal obstruction History of colon cancer Chronic anticoagulation Portal hypertension Cirrhosis TIPs placed (?when, 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, [facility] as per pt Non-insulin dependent type 2 diabetes mellitus Incontinence Hypertension Scleral icterus Surgical History S/P TIPS (transjugular intrahepatic portosystemic shunt) H/O left hemicolectomy Colostomy in place Social History Smoking/Tobacco Use Status: Former Tobacco Use Smoking risk assessment performed?: Yes Alcohol Intake: former Drug use: Never Substance use type: does not use Housing: assisted living facility Do you feel safe at home: Yes Do you feel safe in your relationship?: Yes Additional Social history: from [facility]
== END 2025-05-16 12:03 | disposition skilled nursing facility (03) | DRG 291 ==
LOC: ER 15:44 → MS 17:36
PROVIDERS: Family Medicine; Admitting Provider Hospitalist; Emergency Provider Physician Assistant; PCP Nurse Practitioner Adult Health; Responsible Provider Nurse Practitioner Acute Care; Visit Provider Hospitalist
DX: I11.0 Hypertensive heart disease with heart failure (principal); I50.23 Acute on chronic systolic (congestive) heart failure; D62 Acute posthemorrhagic anemia; I48.20 Chronic atrial fibrillation, unspecified; F33.9 Major depressive disorder, recurrent, unspecified; E87.20 Acidosis, unspecified; K76.6 Portal hypertension; K94.01 Colostomy hemorrhage; D69.6 Thrombocytopenia, unspecified; E11.9 Type 2 diabetes mellitus without complications; Z79.84 Long term (current) use of oral hypoglycemic drugs; N40.0 Benign prostatic hyperplasia without lower urinary tract symptoms; E66.01 Morbid (severe) obesity due to excess calories; K21.9 Gastro-esophageal reflux disease without esophagitis; Z68.36 Body mass index [BMI] 36.0-36.9, adult; K74.60 Unspecified cirrhosis of liver; E03.9 Hypothyroidism, unspecified; G89.29 Other chronic pain; E87.6 Hypokalemia; I25.2 Old myocardial infarction; R29.6 Repeated falls; R53.1 Weakness; I95.1 Orthostatic hypotension; Z79.01 Long term (current) use of anticoagulants
CPT/HCPCS: 00123; 36415; 80053; 82947; 86850; 86900; 86901; 87637; 87641; 93005; 94640; 96374; 96375; 99285; 71046; 81003; 81015; 82728; 83540; 83550; 83880; 84484; 85014; 85018; 85025; 85045; 93010; 99222; 99239; J1756; J1815; J1938; J2919; J7620

== ENCOUNTER 2025-05-23 18:43 | Outpatient (REF) | payer SELFPAY ==
[2025-05-23 13:42] LABS: Abs Immature Grans 0.02 10^3/uL (0.0-0.06); HCT 27.8 % (40.0-50.0); HGB 7.7 g/dL (13.5-17.5); Immature Grans % 0.7 %; MCH 22.2 pg (27.0-33.0); MCHC 27.7 % (32.0-36.0); MCV 80 fL (80-95); MPV 10.4 fL (8.0-11.0); RBC 3.47 10^6/uL (4.36-5.78); RDW 21.4 % (11.8-14.1); RDW-SD 58.5 fL; WBC 2.86 10^3/uL (4.4-10.8)
[2025-05-23 14:12] LABS: Anisocytosis 2+; Hypochromasia 2+; Platelet Count 72 10^3/uL (130-400)
[2025-05-23 14:16] LABS: ALT 20 U/L (16-63); AST 23 U/L (15-37); Albumin 2.4 g/dL (3.4-5.0); Alkaline Phosphatase 141 U/L (46-116); Anion Gap 11.1 mmol/L (3-11); BUN 15 mg/dL (7-18); Bilirubin, Total 1.4 mg/dL (0.2-1.0); CO2 24.9 mmol/L (21.0-32.0); Calcium 8.3 mg/dL (8.5-10.1); Chloride 109 mmol/L (98-107); Estimated GFR 56.23 (mL/min/1.73m2); Glucose 240 mg/dL (74-106); Potassium 3.5 mmol/L (3.5-5.1); Sodium 145 mmol/L (136-145); Total Protein 5.2 g/dL (6.4-8.2); Vitamin D 25 Total 24 ng/mL (30-100)
[2025-05-23 14:17] LABS: Hemoglobin A1C 6.3 % (<5.7)
[2025-05-23 14:39] LABS: NT-proBNP 1124 pg/mL (<300)
[2025-05-23 20:11] LABS: COVID-19 PCR Negative (Negative); RSV PCR Negative (Negative)
== END 2025-05-23 18:44 | disposition home or self-care (01) ==
LOC: LBN 18:43
PROVIDERS: PCP Nurse Practitioner Adult Health; Visit Provider Nurse Practitioner Adult Health
DX: J06.9 Acute upper respiratory infection, unspecified (principal)
CPT/HCPCS: 80053; 82306; 87637; 83036; 83880; 85025

== ENCOUNTER 2025-05-25 21:09 | Outpatient (REF) | payer SELFPAY ==
[2025-05-25 17:53] LABS: HCT 28.8 % (40.0-50.0); HGB 8.2 g/dL (13.5-17.5); MCH 22.9 pg (27.0-33.0); RBC 3.58 10^6/uL (4.36-5.78); RDW 22.5 % (11.8-14.1); RDW-SD 60.8 fL; WBC 3.68 10^3/uL (4.4-10.8)
[2025-05-25 18:05] LABS: MCV 80 fL (80-95)
[2025-05-25 18:06] LABS: MCHC 28.5 % (32.0-36.0); Platelet Count 74 10^3/uL (130-400)
== END 2025-05-25 21:10 | disposition home or self-care (01) ==
LOC: LBN 21:09
PROVIDERS: PCP Nurse Practitioner Adult Health; Visit Provider Nurse Practitioner Adult Health
DX: I50.33 Acute on chronic diastolic (congestive) heart failure (principal)
CPT/HCPCS: 85027

== ENCOUNTER 2025-05-28 20:33 | Inpatient (IN) | payer OTHER, SELFPAY ==
[2025-05-28] VITALS (34 sets, daily range): BP systolic 137–165; BP diastolic 49–71; PULSE 60–86; RESP 13–22; TEMP 36.6; O2SAT 85–97
--- NOTE | 2025-05-28 21:00 | DI.CT_ITS ---
Exam(s) CT ABDOMEN PELVIS W EXAM: CT ABDOMEN PELVIS W CLINICAL HISTORY: hx remote colorectal ca, ostomy, nausea, no BM. TECHNIQUE: Imaging Protocol: Axial computed tomography images with coronal and sagittal reformatted images were created and reviewed CONTRAST MATERIAL: Intravenous: Omnipaque-350 100cc Oral: None COMPARISON: Prior CT scan of 02/26/2025 was reviewed. FINDINGS: VISUALIZED LUNG BASES: There are now bilateral pleural effusions which were not evident on the most recent CT scan of February 2025. Small on the left and moderate size on the right. There is some atelectasis-volume loss in the basal segments of both lower lobes. Also mild infiltrate in the lower lobes above this. There is no pericardial effusion. ABDOMEN: There is now a small amount of perihepatic ascites which was not previously present. There is no generalized ascites. LIVER: The liver is again noted be cirrhotic and with a patent appearing TIPS stent again evident. Small cyst in the liver again noted. No evidence of obvious neoplasm in the liver. GALLBLADDER/BILIARY: There is a tiny calcification in the posterior wall of the gallbladder and another in the anterior wall. There is no acute gallbladder pathology. The CBD is not dilated.. PANCREAS: No evidence of pancreatic mass nor dilatation of the pancreatic duct. SPLEEN: There is splenomegaly again noted. Splenic vein is also again noted be prominent but not thrombosed, unchanged. There are no splenic lesions. ADRENALS: No new significant adrenal findings. KIDNEYS:No significant focal findings. No solid renal masses. No calculi nor hydronephrosis.. ABDOMINAL AORTA: Calcified but not significant enlarged. LYMPH NODES:There is no retroperitoneal nor paraaortic adenopathy. ABDOMINAL WALL GI: Again noted is a left-sided colostomy. The rectum is oversewn. Stomach and duodenum are not distended but multiple small bowel loops distal to the ligament of Treitz are dilated and the transition point appears to be in the right-side of the abdomen. In addition, some the small bowel loops are again noted to be tethered to the anterior abdominal wall fascia in the subumbilical region, similar to previous. There appears to been prior ventral hernia repair. There is no evidence of free intraperitoneal air and there is no evidence of intraperitoneal abscess. PELVIS: GI: No evidence of appendicitis.Appendix surgically absent. LYMPH NODES: There is no intrapelvic nor inguinal adenopathy. REPRODUCTIVE: Prostate size upper normal. URINARY BLADDER: No calculi nor obvious masses evident OSSEOUS: No fractures and no significant osseous lesions. Chronic multilevel degenerative disc disease. No listhesis. IMPRESSION: 1. Compared to the prior CT scan of 02/26/2025 there is again noted evidence of prior hemicolectomy and left anterior abdominal wall colostomy. 2. There are again noted multiple dilated small bowel loops within the mid to lower abdomen consistent with small bowel obstruction. Transition zone appears to be within the mid lower abdomen slightly right of center. This patient appears to have had multiple prior surgeries. Some the small bowel loops are again noted to be tethered to the anterior abdominal wall, similar to previous. 3. Cirrhosis. Tips. Splenomegaly. There is now a small amount of perihepatic ascites which was not evident on the prior CT scan of February 2025. 4. In addition, there are now bilateral pleural effusions right larger than left. There were no pleural effusions on the February [address]25 CT scan. Preliminary virtual Radiology report was reviewed. RADIATION DOSE DELIVERED: 802.97mGy.cm Total DLP DATA REPOSITORY: All CT scans at this facility are submitted to the National Radiology Data Registry (NRDR) Dose Index Registry (DIR) with the [employer] (A[employer]). RADIATION OPTIMIZATION: All CT scans at this facility use at least one of these dose optimization techniques: automated exposure control; mA and/or kV adjustment per patient size (includes targeted exams where dose is matched to clinical indication); or iterative reconstruction.
--- NOTE | 2025-05-28 21:18 | W.ED.GENAD ---
Discharge Plan Discharge Details Chief Complaint: Abd Prob Primary Care Provider: Maryann Whitt ED Provider: Aftab Esparza Home Meds and New Rx's Prescriptions: No Action pantoprazole 40 mg Tablet,Delayed Release (Dr/Ec) 40 mg PO DAILY Eliquis 5 mg Tablet 5 mg PO BID Patient Comments: taking per pt nitroglycerin 0.4 mg Tablet, Sublingual 0.4 mg sublingual Q5 MIN PRN X3 PRNQty: 30 0RF rifaximin 550 mg Tablet 550 mg PO BID prazosin 5 mg capsule 10 mg PO QPM tamsulosin 0.4 mg Capsule 0.4 mg PO DAILY metformin 500 mg tablet extended release 24hr 1,000 mg PO BID bisacodyl [Dulcolax (bisacodyl)] 10 mg suppository 10 mg ID DAILY PRN ondansetron 4 mg tablet,disintegrating 4 mg PO Q6H PRN potassium chloride 20 mEq tablet extended release 20 meq PO DAILY spironolactone [Aldactone] 25 mg tablet 12.5 mg PO DAILY venlafaxine [Effexor XR] 75 mg capsule,extended release 24hr 75 mg PO DAILY Patient Comments: takes w/150mg capsule for total dose of 225mg daily lactulose 20 gram/30 mL Solution 15 ml PO TID Rx Instructions: to maintain colostomy output of 3-4 bags per day diclofenac sodium [Arthritis Pain (diclofenac)] 1 % gel 2 g topical TID Rx Instructions: apply to single elbow, wrist or hand; for hand includes palm/fingers/back of hand melatonin 3 mg tablet 6 mg PO HS Patient Comments: TAKE ONE TABLET BY MOUTH AT BEDTIME ferrous sulfate 325 mg (65 mg iron) Tablet 325 mg PO DAILY Qty: 0 0RF empagliflozin 25 mg Tablet 25 mg PO DAILY levothyroxine 200 mcg Tablet 100 mcg PO QAM Qty: 0 0RF venlafaxine 150 mg capsule,extended release 24hr 150 mg PO DAILY acetaminophen [Tylenol] 325 mg Capsule 650 mg PO Q6H MDD 3000 PRN losartan [Cozaar] 50 mg tablet 50 mg PO BID furosemide [Lasix] 40 mg tablet See Rx Instructions .ROUTE .COMPLEX Qty: 60 0RF Rx Instructions: 40 mg every morning and 20 mg early afternoon HPI General Date/Time Provider Initiated Documentation: 05/28/25 21:12. HPI Narrative: 80-year-old male history of remote colorectal cancer in remission with ostomy over the last 40 years, presents with abdominal distention nausea no vomiting however decreased ostomy output feels as if he is obstructed. Also endorsing depression and suicidal ideation. Patient endorsed that he does not want to be evaluated for his psychiatric concerns at this time and would like his pain controlled. Related Data Home Medications ?Medication ?Instructions ?Recorded ?Confirmed apixaban 5 mg tablet (Eliquis) 5 mg PO BID 11/08/22 05/28/25 pantoprazole 40 mg tablet,delayed 40 mg PO DAILY 11/08/22 05/28/25 release nitroglycerin 0.4 mg sublingual 0.4 mg sublingual Q5 MIN PRN X3 02/10/23 05/28/25 tablet PRN #30 tabs empagliflozin 25 mg tablet 25 mg PO DAILY 04/09/23 05/28/25 levothyroxine 200 mcg tablet 100 mcg (1/2 x 200 mcg) PO QAM #0 04/10/23 05/28/25 tabs rifaximin 550 mg tablet 550 mg PO BID 07/07/23 05/28/25 venlafaxine 150 mg 150 mg PO DAILY 03/05/24 05/28/25 capsule,extended release 24 hr acetaminophen 325 mg capsule 650 mg PO Q6H PRN 05/12/24 05/28/25 (Tylenol) prazosin 5 mg capsule 10 mg PO QPM 08/04/24 05/28/25 tamsulosin 0.4 mg capsule 0.4 mg PO DAILY 08/04/24 05/28/25 metformin 500 mg tablet,extended 1,000 mg PO BID 01/17/25 05/28/25 release 24hr (osmotic) bisacodyl 10 mg rectal suppository 10 mg ID DAILY PRN 02/26/25 05/28/25 (Dulcolax (bisacodyl)) lactulose 20 gram/30 mL oral 15 ml PO TID 02/26/25 05/28/25 solution ondansetron 4 mg disintegrating 4 mg PO Q6H PRN 02/26/25 05/28/25 tablet potassium chloride 20 mEq 20 meq PO DAILY 02/26/25 05/28/25 tablet,extended release spironolactone 25 mg tablet 12.5 mg PO DAILY 02/26/25 05/28/25 (Aldactone) venlafaxine 75 mg capsule,extended 75 mg PO DAILY 02/26/25 05/28/25 release 24 hr (Effexor XR) diclofenac sodium 1 % topical gel 2 g topical TID 04/02/25 05/28/25 (Arthritis Pain (diclofenac)) losartan 50 mg tablet (Cozaar) 50 mg PO BID 04/19/25 05/28/25 furosemide 40 mg tablet (Lasix) See Rx Instructions .Route 05/10/25 05/28/25 .COMPLEX #60 tabs melatonin 3 mg tablet 6 mg PO HS 05/15/25 05/28/25 ferrous sulfate 325 mg (65 mg 325 mg PO DAILY #0 tabs 05/16/25 05/28/25 iron) tablet Previous Rx's ?Medication ?Instructions ?Recorded nitroglycerin 0.4 mg sublingual 0.4 mg sublingual Q5 MIN PRN X3 02/10/23 tablet PRN #30 tabs levothyroxine 200 mcg tablet 100 mcg (1/2 x 200 mcg) PO QAM #0 04/10/23 tabs furosemide 40 mg tablet (Lasix) See Rx Instructions .Route 05/10/25 .COMPLEX #60 tabs ferrous sulfate 325 mg (65 mg 325 mg PO DAILY #0 tabs 05/16/25 iron) tablet Allergies Allergy/AdvReac Type Severity Reaction Status Date / Time Penicillins Allergy Mild Itching Verified 05/28/25 20:53 mussels Allergy Anaphylaxis Verified 05/28/25 20:53 morphine AdvReac Severe vomiting Verified 05/28/25 20:53 General Stated Complaint: Abd Prob ANNA: 3 Exam Narrative Exam Narrative: General: alert, no acute distress HEENT: normocephalic, atraumatic, neck supple, pupils equal round reactive to light, moist mucous membranes, tolerating secretions, normal voice, no rhinorrhea or otorrhea Respiratory: normal respiratory effort, lungs clear bilaterally, no wheezes rales or rhonchi Cardiac: regular rate and rhythm, no murmurs rubs or gallops; equal pulses bilaterally, warm well perfused Abdominal: soft, nontender, moderately distended nonperitoneal, small amount of stool in ostomy bag; no organomegaly or palpable masses MSK: normal range of motion of extremities, warm, well perfused Skin: warm, dry, no rashes or lesions Neuro: AAOx3, CN II-XII intact, 5/5 strength bilateral upper and lower extremities, normal speech, no ataxia Psych: normal mood, normal affect, calm, cooperative; endorses depression and SI Course Vital Signs Vital signs: Vital Signs Temperature 36.6 C 05/28/25 20:35 Pulse 77 05/28/25 20:35 Respiratory Rate 16 05/28/25 20:35 Temperature 36.6 C 05/28/25 20:35 Temperature Source Oral 05/28/25 20:35 Pulse 77 05/28/25 21:04 Pulse 79 05/28/25 21:04 Respiratory Rate 17 05/28/25 21:04 Blood Pressure 165/58 H 05/28/25 21:04 Blood Pressure Mean 93 05/28/25 21:04 Pulse Oximetry 90 L 05/28/25 21:04 Oxygen Delivery Method Room Air 05/28/25 20:35 Oxygen Flow Rate 0 05/28/25 20:35 Pain Level 8 05/28/25 20:35 Medical Decision Making 80-year-old male history of remote colorectal cancer, ostomy, presents with decreased ostomy output and abdominal distention associate with nausea, afebrile nontoxic nonperitoneal however is moderately distended, small amount of stool in ostomy bag, believes he may have a small bowel obstruction. Patient also stating that he has longstanding depression and thoughts of suicide however he does not want to be evaluated for his psychiatric concerns. Consider obstruction versus ileus versus colitis versus enteritis versus gas versus constipation lower sufficient for perforation abscess or phlegmon. Will treat patient's pain and reassess psychiatric symptomatology. Once medically cleared will address patient's psychiatric concerns 22: 46 hemodynamically stable labs largely unremarkable. Awaiting CT scan results. Patient requesting stronger pain medication. Patient endorses he is able to get Dilaudid without issue 22: [address] results. I have readdressed patient psychiatric concerns he does have depression and thoughts of killing himself. Expressed to nurses that he had thoughts of hanging himself. Discussed these concerns with patient and patient's , patient willing to stay voluntarily for psychiatric evaluation. 23: 17 evidence of SBO on CT. Will order NG tube. [facility] patient amenable to transfer to [facility] if available. Awaiting to hear back from nurse needle process felt goods supervisor at [facility]. Psychiatric consultation has been placed. 23: 42 discussed case with [facility] surgical team who is comfortable with patient remaining at our facility for NG tube and monitoring given history of resolution of SBO with simple decompression in the past. Patient comfortable staying at [facility]. Have placed page to surgical team here for admission Quality:SDOH Health Related Social Needs: Health related social needs transpo insecurity Health related social needs details sometimes has trouble getting a ride to places - has to wait on son to be available [facility] All Active Problems (Updated 05/17/25 @ 00:03 by JOSE LUIS REICH) Anemia (Chronic) History of creation of ostomy (Acute) Contusion (Acute) Liver mass (Acute) Vomiting (Acute) Abdominal pain (Acute) Elevated lactic acid level (Acute) Acute UTI (Acute) Symptomatic bradycardia (Acute) Acute hypokalemia (Acute) Family conflict (Acute) Chest pain in adult (Acute) Fall (Acute) Chronic low back pain (Chronic) Hematuria (Acute) Leukopenia (Acute) Oral candidiasis (Acute) Sepsis syndrome (Acute) Gram-negative bacteremia (Acute) Cellulitis (Acute) Lower urinary obstructive symptom (Acute) Anemia of chronic disease (Acute) Ventricular ectopy (Acute) Sinus bradycardia (Acute) Leukocytosis (Acute) Hypertension (Chronic) Elevated lactic acid level (Acute) CHF (congestive heart failure) (Chronic) No-show for appointment (Acute) Left rotator cuff tear (Acute) Acute UTI (urinary tract infection) (Acute) Weakness (Acute) Non-ST elevation [place] (NSTEMI) (Acute) Pre-syncope (Acute) Frequent falls (Acute) Orthostatic hypotension (Acute) Hypokalemia (Acute) Bradycardia (Acute) Multiple falls (Acute) Acute metabolic encephalopathy (Acute) Medication monitoring encounter (Acute) Chest pain (Acute) CHF (congestive heart failure) (Chronic) EF 25%- 2023 Medical History Chronic heart failure with reduced ejection fraction (HFrEF, <= 40%) Anemia Cirrhosis of liver without ascites Diabetes PAF (paroxysmal atrial fibrillation) Goals of care, counseling/discussion Lactic acidosis UTI (urinary tract infection) Urinary tract infection Advanced care planning/counseling discussion Palliative care encounter Followed by [facility] Care Bowel obstruction Sepsis Heart failure with reduced ejection fraction Hypothyroidism Small bowel obstruction Lactic acid acidosis Creatinine elevation Acute UTI Anticoagulated COVID Recurrent intestinal obstruction History of colon cancer Chronic anticoagulation Portal hypertension Cirrhosis TIPs placed (?when, [facility] 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, Dx [facility] as per pt Non-insulin dependent type 2 diabetes mellitus Incontinence Hypertension Scleral icterus Surgical History S/P TIPS (transjugular intrahepatic portosystemic shunt) H/O left hemicolectomy Colostomy in place Social History Smoking/Tobacco Use Status: Former Tobacco Use Smoking risk assessment performed?: Yes Alcohol Intake: former Drug use: Never Substance use type: does not use Housing: assisted living facility Do you feel safe at home: Yes Do you feel safe in your relationship?: Yes Additional Social history: [facility]
[2025-05-28] MEDS: Ondansetron 4 MG/2 ML VIAL IVP (21:20)
[2025-05-28 21:21] LABS: Abs Immature Grans 0.02 10^3/uL (0.0-0.06); HCT 29.1 % (40.0-50.0); HGB 8.3 g/dL (13.5-17.5); Immature Grans % 0.4 %; MCH 23.0 pg (27.0-33.0); MCHC 28.5 % (32.0-36.0); MCV 81 fL (80-95); RBC 3.61 10^6/uL (4.36-5.78); RDW 23.1 % (11.8-14.1); RDW-SD 66.6 fL; WBC 4.53 10^3/uL (4.4-10.8)
[2025-05-28] MEDS: ACETAMINOPHEN 1,000 MG/100 ML BAG 400 MG IVPB (21:21)
[2025-05-28] MEDS: Normal Saline 500 ML 1000 ML IV (21:21)
[2025-05-28 21:34] LABS: Platelet Count 85 10^3/uL (130-400)
[2025-05-28 21:35] LABS: ALT 17 U/L (16-63); AST 32 U/L (15-37); Albumin 2.7 g/dL (3.4-5.0); Alkaline Phosphatase 134 U/L (46-116); Anion Gap 9.7 mmol/L (3-11); Anisocytosis 2+; BUN 17 mg/dL (7-18); Bilirubin, Total 1.6 mg/dL (0.2-1.0); CO2 24.3 mmol/L (21.0-32.0); Calcium 8.8 mg/dL (8.5-10.1); Chloride 108 mmol/L (98-107); Estimated GFR 61.90 (mL/min/1.73m2); Glucose 91 mg/dL (74-106); Poikilocytes 1+; Potassium 4.4 mmol/L (3.5-5.1); Sodium 142 mmol/L (136-145); Total Protein 6.0 g/dL (6.4-8.2)
[2025-05-28 21:43] LABS: Lipase 42 U/L (<78)
[2025-05-28] MEDS: Normal Saline - Diluent 50 ML VIAL IJ (22:20)
[2025-05-28] MEDS: Omnipaque 350 MG/ML 100 ML BTL IJ (22:21)
[2025-05-28] MEDS: HYDROmorphone 2 MG/ML SYR 0.5 MG IVP (22:52)
--- NOTE | 2025-05-28 23:07 | DI.VRAD_ITS ---
PROCEDURE INFORMATION: Exam: CT Abdomen And Pelvis With Contrast Exam date and time: 05/28/2025 10:14 PM Age: 80 years old Clinical indication: HX remote colorectal CA, ostomy, nausea, no bm TECHNIQUE: Imaging protocol: Computed tomography of the abdomen and pelvis with contrast. Contrast material: 350; Contrast volume: 100 ml; Contrast route: INTRAVENOUS (IV); COMPARISON: CT ABDOMEN PELVIS W 02/26/2025 7:21 PM FINDINGS: Lungs: Bilateral posterior lower lobe consolidation and/or atelectasis. Pleural spaces: Bilateral small pleural fluid collections, right greater than left. Liver: Lobulated liver contour indicating cirrhosis. Prior TIPS procedure Gallbladder and biliary ducts: Normal. No calcified stones. No ductal dilation. Pancreas: Normal. No ductal dilation. Spleen: Splenomegaly (16.0 cm AP dimension). Adrenal glands: Normal. No mass. Kidneys and ureters: Normal. No hydronephrosis. Stomach and bowel: Prior hemicolectomy. Anterior left abdominal colostomy. Small amount of stool within the non-dilated colon. Patulous small bowel loop within the lower mid abdomen. Multiple mildly dilated small bowel loops within the mid to lower abdomen (up to 3 cm caliber) reflecting SBO. Transition zone within the lower mid abdominal region. Appendix: Prior appendectomy. Intraperitoneal space: No free air. Minimal free fluid anterior and lateral to the liver. Prior ventral hernia repair. Vasculature: The abdominal aorta is normal in caliber without aneurysm or dissection. Scattered arterial calcifications. Lymph nodes: No enlarged lymph nodes. Urinary bladder: Unremarkable as visualized. Reproductive: Unremarkable as visualized. Bones/joints: Spinal degenerative changes. Soft tissues: Small fat-containing right inguinal hernia. IMPRESSION: 1. Prior hemicolectomy. Anterior left abdominal colostomy. 2. Small amount of stool within the non-dilated colon. 3. Multiple mildly dilated small bowel loops within the mid to lower abdomen (up to 3 cm caliber) reflecting small bowel obstruction. Transition zone within the lower mid abdominal region. 4. Cirrhosis. Prior TIPS procedure. Splenomegaly. Minimal free fluid anterior and lateral to the liver. 5. Bilateral small pleural fluid collections, right greater than left. Bilateral posterior lower lobe consolidation and/or atelectasis. Dictated and Authenticated by: Emmanuel Gonzalez MD. Orderin Isaias Ugalde MD
[2025-05-29] VITALS (19 sets, daily range): BP systolic 132–159; BP diastolic 50–75; PULSE 59–79; RESP 13–17; TEMP 36.2–37; O2SAT 88–96
[2025-05-29] MEDS: Benzocaine 20% 60 ML CAN (00:30)
--- NOTE | 2025-05-29 00:36 | W.PM.HP.N ---
Date of service: 05/29/25 Time of Service: 00:37 Assessment and Plan Assessment and plan (1) SBO (small bowel obstruction): Start date: 05/29/25 Status: Acute Assessment and plan: This is a 80-year-old gentleman with recurrent small bowel obstruction presenting with the same. He has declined NG tube decompression and this will continue with surgical consultation in the morning. [facility] had [facility] did clear the patient for local hospitalization. He lives at the shelter locally and will probably return to that same care. He did have some increased suicidal ideation with his discomfort which seem to have happened in the past and this should be addressed if it continues prior to discharge to shelter. He will most likely clear without surgical intervention as he has in the past. He will be placed on gentle IV hydration because of his n.p.o. status but will be watched closely for exacerbation of CHF with decreased left ventricular ejection fraction by recent echo. He remains a full code. (2) Depression: Assessment and plan: Continue outpatient medical therapy. The patient remains suicidal after surgically cleared, consider mental health consultation with patient agreeing to see them voluntarily. He did mention hanging himself to the ED staff. He was not having suicidal ideation at the time of my conversation. This may be worsened with some mild dementia and his chronic hepatic failure with cirrhosis. He is at times encephalopathic with his hepatic failure. (3) Chronic heart failure with reduced ejection fraction (HFrEF, <= 40%): Assessment and plan: Chronic and stable presently. Watch closely for fluid overload with gentle IV hydration being NPO. (4) Type 2 diabetes mellitus: Assessment and plan: Hold metformin and glucometer measurements every 6 hours with sensitive sliding scale corrective insulin as needed. (5) PAF (paroxysmal atrial fibrillation): Assessment and plan: Patient is presently on Eliquis which would be maintained with cardiac monitoring while hospitalized. He presently has sinus rhythm with PACs. He appears medically stable. (6) Cirrhosis of liver without ascites: Assessment and plan: Presumed alcoholic cirrhosis status post TIPS with chronic anemia and thrombocytopenia with chronic elevation of liver functions and prothrombin time. He did drink heavily when he was younger but not for the last 20 years by history. (7) Anemia: Status: Chronic Assessment and plan: This appears chronic and stable with patient iron supplementation to be continued. He may have chronic blood loss but is not microcytic. He has associated thrombocytopenia but no leukopenia. This appears to be associate with his chronic cirrhosis and liver failure. He is on Eliquis and has risk for bleeding. There is a question whether he is being weaned off of this medication. (8) ANETTE (obstructive sleep apnea): Assessment and plan: CPAP patient is using this at the shelter. He has morbidly obese. (9) Hypothyroidism (acquired): Status: Chronic Assessment and plan: Check TSH and continue outpatient supplementation. History of Present Illness History of Present Illness Chief Complaint: Abdominal distention with decreased ostomy output and nausea. Narrative: This is a 80-year-old male patient who had recurrent admissions for small bowel obstruction presenting with abdominal distention with nausea without vomiting and feeling that he has decreased output in his colostomy bag. He also has suicide with suicidal ideation which is ongoing and should be addressed once the patient is medically stable if he continues to have these thoughts. This also appears to be somewhat chronic. Patient did live at home with his and son but recently has been in the shelter near the hospital because of inability to stand or walk on his own. He denies any fever or chills. He does have chronic cirrhosis but without ascites. He has had a TIPS procedure [facility] He denies any increased shortness of breath but is minimally active and cannot walk. He is obese. He has chronic thrombocytopenia and is on Eliquis for PAF but has no bleeding sequelae and does not remember having esophageal varices. He did have an NG tube placed without bleeding at the time he was seen in the ED. As stated he has not had any vomiting but he has been nauseated. He does feel more comfortable with the NG tube will place on low, intermittent wall suction. He will be admitted with gentle IV hydration having CHF with reduced left-ventricular ejection fraction awaiting surgical consultation in the morning. Surgery has been called through the ED and is aware of patient. This may resolve without surgical intervention as it has in the past. He does remain a full code. Review of Systems Narrative: 13 point review of systems otherwise unrevealing or stable. [facility] All Active Problems (Updated 05/29/25 @ 01:18 by [place] Jim) Hypothyroidism (acquired) (Chronic) SBO (small bowel obstruction) (Acute) Depression (Chronic) SBO (small bowel obstruction) (Acute) Anemia (Chronic) History of creation of ostomy (Acute) Contusion (Acute) Liver mass (Acute) Vomiting (Acute) Abdominal pain (Acute) Elevated lactic acid level (Acute) Acute UTI (Acute) Symptomatic bradycardia (Acute) Acute hypokalemia (Acute) Family conflict (Acute) Chest pain in adult (Acute) Fall (Acute) Chronic low back pain (Chronic) Hematuria (Acute) Leukopenia (Acute) Oral candidiasis (Acute) Sepsis syndrome (Acute) Gram-negative bacteremia (Acute) Cellulitis (Acute) Lower urinary obstructive symptom (Acute) Anemia of chronic disease (Acute) Ventricular ectopy (Acute) Sinus bradycardia (Acute) Leukocytosis (Acute) Hypertension (Chronic) Elevated lactic acid level (Acute) CHF (congestive heart failure) (Chronic) No-show for appointment (Acute) Left rotator cuff tear (Acute) Acute UTI (urinary tract infection) (Acute) Weakness (Acute) Non-ST elevation [place] (NSTEMI) (Acute) Pre-syncope (Acute) Frequent falls (Acute) Orthostatic hypotension (Acute) Hypokalemia (Acute) Bradycardia (Acute) Multiple falls (Acute) Acute metabolic encephalopathy (Acute) Medication monitoring encounter (Acute) Chest pain (Acute) CHF (congestive heart failure) (Chronic) EF 25%- 2023 Medical History Chronic GERD BPH (benign prostatic hyperplasia) Major depression, recurrent, chronic Severe obesity (BMI >= 40) Diabetes mellitus treated with oral medication Anemia associated with acute blood loss Acute on chronic HFrEF (heart failure with reduced ejection fraction) Anemia Splenomegaly Thrombocytopenia Colostomy care Thrombocytopenia Chronic atrial fibrillation Type 2 diabetes mellitus CHF exacerbation ANETTE (obstructive sleep apnea) Chronic heart failure with reduced ejection fraction (HFrEF, <= 40%) Anemia Cirrhosis of liver without ascites Diabetes PAF (paroxysmal atrial fibrillation) Goals of care, counseling/discussion Lactic acidosis UTI (urinary tract infection) Urinary tract infection Advanced care planning/counseling discussion Palliative care encounter Followed by [facility] Bowel obstruction Sepsis Heart failure with reduced ejection fraction Hypothyroidism Small bowel obstruction Lactic acid acidosis Creatinine elevation Acute UTI Anticoagulated COVID Recurrent intestinal obstruction History of colon cancer Chronic anticoagulation Portal hypertension Cirrhosis TIPs placed (?when, [facility]? 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, Dx [facility] as per pt Non-insulin dependent type 2 diabetes mellitus Incontinence Hypertension Scleral icterus Surgical History S/P TIPS (transjugular intrahepatic portosystemic shunt) H/O left hemicolectomy Colostomy in place Social History Smoking/Tobacco Use Status: Former Tobacco Use Smoking risk assessment performed?: Yes Alcohol Intake: former Drug use: Never Substance use type: does not use Housing: shelter Do you feel safe at home: Yes Do you feel safe in your relationship?: Yes Additional Social history: [facility] Allergies and Home Medications Allergies Allergy/AdvReac Type Severity Reaction Status Date / Time Penicillins Allergy Mild Itching Verified 05/28/25 20:53 mussels Allergy Anaphylaxis Verified 05/28/25 20:53 morphine AdvReac Severe vomiting Verified 05/28/25 20:53 Home Medications ?Medication ?Instructions ?Recorded ?Confirmed ?Type apixaban 5 mg tablet (Eliquis) 5 mg PO BID 11/08/22 05/28/25 History pantoprazole 40 mg tablet,delayed 40 mg PO DAILY 11/08/22 05/28/25 History release nitroglycerin 0.4 mg sublingual 0.4 mg sublingual Q5 MIN PRN X3 02/10/23 05/28/25 Rx tablet PRN #30 tabs empagliflozin 25 mg tablet 25 mg PO DAILY 04/09/23 05/28/25 History levothyroxine 200 mcg tablet 100 mcg (1/2 x 200 mcg) PO QAM #0 04/10/23 05/28/25 Rx tabs rifaximin 550 mg tablet 550 mg PO BID 07/07/23 05/28/25 History venlafaxine 150 mg 150 mg PO DAILY 03/05/24 05/28/25 History capsule,extended release 24 hr acetaminophen 325 mg capsule 650 mg PO Q6H PRN 05/12/24 05/28/25 History (Tylenol) prazosin 5 mg capsule 10 mg PO QPM 08/04/24 05/28/25 History tamsulosin 0.4 mg capsule 0.4 mg PO DAILY 08/04/24 05/28/25 History metformin 500 mg tablet,extended 1,000 mg PO BID 01/17/25 05/28/25 History release 24hr (osmotic) bisacodyl 10 mg rectal suppository 10 mg HI DAILY PRN 05/03/25 08/02/25 History (Dulcolax (bisacodyl)) lactulose 20 gram/30 mL oral 15 ml PO TID 02/26/25 05/28/25 History solution ondansetron 4 mg disintegrating 4 mg PO Q6H PRN 02/26/25 05/28/25 History tablet potassium chloride 20 mEq 20 meq PO DAILY 02/26/25 05/28/25 History tablet,extended release spironolactone 25 mg tablet 12.5 mg PO DAILY 02/26/25 05/28/25 History (Aldactone) venlafaxine 75 mg capsule,extended 75 mg PO DAILY 02/26/25 05/28/25 History release 24 hr (Effexor XR) diclofenac sodium 1 % topical gel 2 g topical TID 04/02/25 05/28/25 History (Arthritis Pain (diclofenac)) losartan 50 mg tablet (Cozaar) 50 mg PO BID 04/19/25 05/28/25 History furosemide 40 mg tablet (Lasix) See Rx Instructions .Route 05/10/25 05/28/25 Rx .COMPLEX #60 tabs melatonin 3 mg tablet 6 mg PO HS 05/15/25 05/28/25 History ferrous sulfate 325 mg (65 mg 325 mg PO DAILY #0 tabs 05/16/25 05/28/25 Rx iron) tablet Exam Narrative Exam Narrative: General: Patient appears older than stated age, morbidly obese, alert and oriented to person, place and marginally to time. He is in no acute distress. HEENT: Normocephalic, eyes with pupils equal and reactive light symmetrically, extraocular movement intact and sclera anicteric. Oropharynx with moist oral mucosa and poor dentition I been missing teeth and discolored remaining teeth.. Neck: Supple without JVD. Neck: Kyphotic without CVA tenderness. Lungs: Fair aeration and clear to auscultation percussion without focalizing rales or rhonchi. Heart: Irregular rhythm with sinus rhythm and frequent PVCs on head sawyer, and with normal rate. No appreciable murmur or gallop with distant heart sounds. Abdomen: Obese contour with diffuse distention with multiple atrophic surgical scars, slightly tender diffusely to palpation with no palpable hepatosplenomegaly. No rebound or guarding. Colostomy bag over left lower abdomen which is empty and flaccid. Well-healed,, large slightly hypertrophic ventral scar. Bowel sounds positive all quadrants. Genitalia/rectal: Exam deferred. Extremities: Without clubbing, cyanosis or grossly pitting edema with chronic nonpitting edema both lower extremities and chronic skin changes including erythema and slight hyperpigmentation without ulcerations. Fair capillary refill. Skin: Normal color, warm and dry with actinic changes over sun exposed areas. Neuro: Cranial nerves II through XII gross intact, no focalizing motor deficits. No tremor. Psych: Normal, slightly euphoric affect. Mood normal with no mention of suicidal ideation as he had in the ED. No abnormal thought processes. Remote memory intact with recent memory less intact. Patient presently is not delusional with history of hepatic encephalopathy. He is a poor historian. Results Imaging Imaging Studies: Exam: CT Abdomen And Pelvis With Contrast Exam date and time: 05/28/2025 10:14 PM Age: 80 years old Clinical indication: HX remote colorectal CA, ostomy, nausea, no bm ; COMPARISON: CT ABDOMEN PELVIS W 02/26/2025 7:21 PM FINDINGS: Lungs: Bilateral posterior lower lobe consolidation and/or atelectasis. Pleural spaces: Bilateral small pleural fluid collections, right greater than left. Liver: Lobulated liver contour indicating cirrhosis. Prior TIPS procedure Gallbladder and biliary ducts: Normal. No calcified stones. No ductal dilation. Pancreas: Normal. No ductal dilation. Spleen: Splenomegaly (16.0 cm AP dimension). Adrenal glands: Normal. No mass. Kidneys and ureters: Normal. No hydronephrosis. Stomach and bowel: Prior hemicolectomy. Anterior left abdominal colostomy. Small amount of stool within the non-dilated colon. Patulous small bowel loop within the lower mid abdomen. Multiple mildly dilated small bowel loops within the mid to lower abdomen (up to 3 cm caliber) reflecting SBO. Transition zone within the lower mid abdominal region. Appendix: Prior appendectomy. Intraperitoneal space: No free air. Minimal free fluid anterior and lateral to the liver. Prior ventral hernia repair. Vasculature: The abdominal aorta is normal in caliber without aneurysm or dissection. Scattered arterial calcifications. Lymph nodes: No enlarged lymph nodes. Urinary bladder: Unremarkable as visualized. Reproductive: Unremarkable as visualized. Bones/joints: Spinal degenerative changes. Soft tissues: Small fat-containing right inguinal hernia. IMPRESSION: 1. Prior hemicolectomy. Anterior left abdominal colostomy. 2. Small amount of stool within the non-dilated colon. 3. Multiple mildly dilated small bowel loops within the mid to lower abdomen (up to 3 cm caliber) reflecting small bowel obstruction. Transition zone within the lower mid abdominal region. 4. Cirrhosis. Prior TIPS procedure. Splenomegaly. Minimal free fluid anterior and lateral to the liver. 5. Bilateral small pleural fluid collections, right greater than left. Bilateral posterior lower lobe consolidation and/or atelectasis. EXAM: Comprehensive 2D, Doppler, and color-flow Echocardiogram Date of exam: 03/01/2025 Indications: CHF Other Information Technically limited study due to body habitus, inability to position patient. Conclusion Dilated left ventricle. Normal wall thickness. Ejection fraction is 35% with global hypokinesis Normal right ventricular size and function Moderately dilated left atrium. Mildly dilated right atrium Aortic valve is sclerotic and trileaflet without stenosis or regurgitation Compared to echocardiogram from January 2024, EF is improved from 25 to 35% Labs 05/28/25 20:55 05/28/25 20:55 Labs: Laboratory Results - last 24 hr 05/28/25 20:55 WBC 4.53 RBC 3.61 L Hgb 8.3 L Hct 29.1 L MCV 81 MCH 23.0 L MCHC 28.5 L RDW 23.1 H Plt Count 85 L MPV Immature Gran % 0.4 Neutrophils % 78.8 Lymphocytes % 7.7 Monocytes % 7.3 Eosinophils % 5.1 Basophils % 0.7 Nucleated RBC % 0.0 Absolute Neutrophils 3.57 Absolute Lymphocytes 0.35 L Absolute Monocytes 0.33 Absolute Eosinophils 0.23 Absolute Basophils 0.03 RBC Morphology See Below Poikilocytosis 1+ Anisocytosis 2+ Sodium 142 Potassium 4.4 Chloride 108 H Carbon Dioxide 24.3 Anion Gap 9.7 BUN 17 Creatinine 1.2 Est GFR (CKD-EPI 2020) 61.90 Glucose 91 Calcium 8.8 Total Bilirubin 1.6 H AST 32 ALT 17 Alkaline Phosphatase 134 H Total Protein 6.0 L Albumin 2.7 L Lipase 42 Last Vital Signs Temp 36.6 C 05/28/25 20:35 Pulse 75 05/28/25 21:50 Resp 17 05/28/25 21:50 BP 164/63 H 05/28/25 21:46 Pulse Ox 93 05/28/25 21:50 Time Spent Time spent with Patient: >75 minutes Time was spent: preparing to see the patient(eg.review tests), obtaining and/or reviewing separately otained hiistory, ordering medications,tests, procedures, referring, communicating with other health field care coordinator, indepentently interpreting results and care coordination
--- NOTE | 2025-05-29 00:43 | PDOC.MHCN_ITS ---
Date of service: 05/29/25 Time of Service: 00:15 PHQ-9 Over the last 2 weeks, how often have you been bothered by any of the following problems? 1. Little interest or pleasure in doing things: several days 2. Feeling down, depressed, or hopeless: nearly every day 3. Trouble falling or staying asleep, or sleeping too much: several days 4. Feeling tired or having little energy: nearly every day 5. Poor appetite or overeating: nearly every day 6. Feeling bad about yourself - or that you are a failure or have let yourself and your family down: more than half the days 7. Trouble concentrating on things, such as reading the newspaper or watching television: several days 8. Moving or speaking so slowly that other people could have noticed? - Or the opposite - being so fidgety or restless that you have been moving around a lot more than usual: not at all 9. Thoughts that you would be better off or of hurting yourself in some way: several days Total score: 15 If you checked off any problems, how difficult have these problems made it for you to do your work, take care of things at home, or get along with other people?: somewhat difficult Source: Developed by Drs. Osmar Turcios, Alysa Sidhu, Miguel Lawson and colleagues, with an educational jennifer from [employer] (formerly [employer]). Suicide Severity Rate CSSRS Have you wished you were or wished you could go to sleep and not wake up?: Yes Have you actually had any thoughts of killing yourself?: Yes CSSRS2 Have you been thinking about how you might do this?: Yes Have you had these thoughts and had some intention of acting on them?: No Have you started to work out or worked out the details of how to kill yourself? Do you intend to carry out this plan?: No CSSRS3 Have you ever done anything, started to do anything or prepared to do anything to end your life?: Yes CSSRS4 Was this within the past three months?: No Screening Score Total Score: 6 Screening: Positive Mental Health Emergency Note Release [facility] release signed:: No Reason for Visit Merrill presented to [facility] due to medical concerns upon the conversation of discharge Merrill shared he was suicidal and did not think he could be safe. Merrill is previously known to [facility] but not to this internal communications writer. In the last 2 weeks has the pt presented for ES prior to today?: Unknown Client Information Well Housed: Yes Non Suicidal Self Injury Current: No History: No Safety Risk/Harm to Self or Others Current Ideation to Harm Self or Others: No Risk: Does risk to harm exist?: No Risk: N/A Duty to warn indicated: No Asssessment/Mental Status Appearance: Unremarkable Attitude: Cooperative and Passive Behavior: Unremarkable Speech: Normal Affect: Cogruent with mood Mood: Sad and Stressed Thought process: Unremarkable Hallucinations: No evidence Delusions: No evidence Attention: Unremarkable Perception: Not impaired Orientation: Fully orientated Memory: Intact Insight: Fair Judgement: Fair Neurovegetative Symptoms Sleep: No change Appetitie: Decrease Interests: Decrease Energy: Decrease Libido: Not applicable Substance Use: Do you use nicotine?: No Have you used substances in the last 7 days?: No Additional Issues: Assaultive/Threatening Behavior: No Medical Concerns: Yes Client engaged in active self harm w/weapon: No Threatening to run away: No Child reported abuse/neglect: No Voluntarily presenting for services: Yes Extreme Psychosis or extreme behavior is present: No Impression Osmar is a [age] year old male who is currently residing at the [facility]. Osmar goes by he/him pronouns and uses the preferred name Merrill. Merrill presents sitting in his hospital bed, in a gown with a blanket on. Merrill is calm, cooperative, and has a passive mindset. Merrill reports he did make statements about ending his life as he sometimes thinks about this. Merrill reports he had one past attempt to end his life when he put a plastic bag around his head, Merrill could not recall how long ago this was but he claims it was awhile ago. Merrill reports [facility]. Merrill reports he does have SI sometimes and has thought about hanging himself but could not do it. 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 [facility] the [facility], not endorsing SI, NSSI, or HI at this time. Merrill reports he does not want a safety plan as there is nothing additional he needs. Merrill was told about 988 and [facility] in case he ever needs it. Resources Reosurces reviewed and given:: [facility] and [facility] Plan/Disposition Recommended Disposition: PCP/Office visit and Community resources. Plan: PLan was discussed with charge nurse as well as patient RN. Merrill will be cleared by and remain at [facility] for medical treatment. Merrill refused to complete a safety plan with this internal communications writer. Person reported agreement to plan: Yes Reports/communication Outcome discussed with: ED/Personnel
--- NOTE | 2025-05-29 01:12 | W.EDPROG ---
Date of service: 05/29/25 Time of Service: 01:12 Medical Decision Making Patient was signed out to me pending callback from surgery. Please refer to Dr. Carreon as history, physical exam, assessment and plan. At time of signout we are awaiting callback. I did contact surgeon Dr. Tate, and she agrees with the assessment and plan and will be on consult for the patient. A contact the hospitalist Dr. Gomez for covering the agrees with the assessment and plan and accepts the patient for admission. I have extensively reviewed the treatment plan with the patient. I have addressed all patient concerns at this time. I have also discussed the plan with the admitting physician and they agree with the current assessment and plan and have agreed to assume responsibility for the patient. All parties demonstrate verbal understanding and agreement with our assessment and plan at this time. The documentation in this chart was dictated using [employer] dictation software. Please excuse any dictation errors. Quality:SDOH Health Related Social Needs: Health related social needs transpo insecurity Health related social needs details sometimes has trouble getting a ride to places - has to wait on son to be available Discharge Plan Disposition Patient Disposition: Admit to [facility] Condition: Good Discharge Details Clinical Impression: Depression, SBO (small bowel obstruction) Primary Care Provider: Maryann Whitt ED Provider: Aftab Esparza Home Meds and New Rx's Prescriptions: No Action pantoprazole 40 mg Tablet,Delayed Release (Dr/Ec) 40 mg PO DAILY Eliquis 5 mg Tablet 5 mg PO BID Patient Comments: taking per pt nitroglycerin 0.4 mg Tablet, Sublingual 0.4 mg sublingual Q5 MIN PRN X3 PRNQty: 30 0RF rifaximin 550 mg Tablet 550 mg PO BID prazosin 5 mg capsule 10 mg PO QPM tamsulosin 0.4 mg Capsule 0.4 mg PO DAILY metformin 500 mg tablet extended release 24hr 1,000 mg PO BID bisacodyl [Dulcolax (bisacodyl)] 10 mg suppository 10 mg LA DAILY PRN ondansetron 4 mg tablet,disintegrating 4 mg PO Q6H PRN potassium chloride 20 mEq tablet extended release 20 meq PO DAILY spironolactone [Aldactone] 25 mg tablet 12.5 mg PO DAILY venlafaxine [Effexor XR] 75 mg capsule,extended release 24hr 75 mg PO DAILY Patient Comments: takes w/150mg capsule for total dose of 225mg daily lactulose 20 gram/30 mL Solution 15 ml PO TID Rx Instructions: to maintain colostomy output of 3-4 bags per day diclofenac sodium [Arthritis Pain (diclofenac)] 1 % gel 2 g topical TID Rx Instructions: apply to single elbow, wrist or hand; for hand includes palm/fingers/back of hand melatonin 3 mg tablet 6 mg PO HS Patient Comments: TAKE ONE TABLET BY MOUTH AT BEDTIME ferrous sulfate 325 mg (65 mg iron) Tablet 325 mg PO DAILY Qty: 0 0RF empagliflozin 25 mg Tablet 25 mg PO DAILY levothyroxine 200 mcg Tablet 100 mcg PO QAM Qty: 0 0RF venlafaxine 150 mg capsule,extended release 24hr 150 mg PO DAILY acetaminophen [Tylenol] 325 mg Capsule 650 mg PO Q6H MDD 3000 PRN losartan [Cozaar] 50 mg tablet 50 mg PO BID furosemide [Lasix] 40 mg tablet See Rx Instructions .ROUTE .COMPLEX Qty: 60 0RF Rx Instructions: 40 mg every morning and 20 mg early afternoon
--- NOTE | 2025-05-29 01:22 | W.PC.ACHO ---
Registration Status: REG ER Primary Language: Preferred Language: ED Information & Data Chief Complaint Abd Prob 05/28/25 21:20 Triage Note Pt arrived via EMS [facility]28/25 20:[facility] Pt reports generalized abd pain since noon. Hx of SBO. Medical / Surgical History (Last Reviewed 05/29/25 @ 00:40 by Phoenix Jim) Chronic GERD BPH (benign prostatic hyperplasia) Major depression, recurrent, chronic Severe obesity (BMI >= 40) Diabetes mellitus treated with oral medication Anemia associated with acute blood loss Acute on chronic HFrEF (heart failure with reduced ejection fraction) Anemia Splenomegaly Thrombocytopenia Colostomy care Thrombocytopenia Chronic atrial fibrillation Type 2 diabetes mellitus CHF exacerbation ANETTE (obstructive sleep apnea) Chronic heart failure with reduced ejection fraction (HFrEF, <= 40%) Anemia Cirrhosis of liver without ascites Diabetes PAF (paroxysmal atrial fibrillation) Goals of care, counseling/discussion Lactic acidosis UTI (urinary tract infection) Urinary tract infection Advanced care planning/counseling discussion Palliative care encounter Bowel obstruction Sepsis Heart failure with reduced ejection fraction Hypothyroidism Small bowel obstruction Lactic acid acidosis Creatinine elevation Acute UTI Anticoagulated COVID Recurrent intestinal obstruction History of colon cancer Chronic anticoagulation Portal hypertension Cirrhosis Confusion Colon cancer Depression Endocarditis Non-insulin dependent type 2 diabetes mellitus Incontinence Hypertension Scleral icterus (Last Reviewed 05/29/25 @ 00:40 by Phoenix Jim) S/P TIPS (transjugular intrahepatic portosystemic shunt) H/O left hemicolectomy Colostomy in place Most Recent Vital Signs Temperature 36.6 C 05/28/25 20:35 Temperature Source Oral 05/28/25 20:35 Pulse 73 05/29/25 01:10 Pulse 73 05/29/25 01:10 Respiratory Rate 17 05/29/25 01:10 Blood Pressure 146/50 H 05/29/25 00:45 Blood Pressure Mean 85 05/29/25 00:45 Pulse Oximetry 94 05/29/25 01:10 Oxygen Delivery Method Room Air 05/28/25 20:35 Oxygen Flow Rate 0 05/28/25 20:35 Pain Level 8 05/28/25 20:35 Comment 2L 05/28/25 21:50 Allergies Penicillins Allergy (Mild, Verified 05/28/25 20:53) Itching mussels Allergy (Verified 05/28/25 20:53) Anaphylaxis morphine Adverse Reaction (Severe, Verified 05/28/25 20:53) vomiting Active Medications Generic Name Dose Route Start Last Admin Trade Name Arnaldo PRN Reason Stop Dose Admin Iohexol 100 ml 05/28/25 22:30 05/28/25 22:21 Omnipaque 350 Mg/Ml 100 Ml Btl IJ 06/27/25 23:59 100 ml DIRECTED MAN Administration Sodium Chloride 50 ml 05/28/25 22:30 05/28/25 22:20 Normal Saline - Diluent 50 Ml Vial IJ 50 ml .FOR DI USE MAN Administration IV IV Catheter Type [Right Peripheral IV Antecubital] IV Catheter Gauge [Right 18 Antecubital] Diagnostics 05/29/25 05/28/25 Range/Units 01:07 20:55 WBC 4.53 (4.4-10.8) 10^3/uL RBC 3.61 L (4.36-5.78) 10^6/uL Hgb 8.3 L (13.5-17.5) g/dL Hct 29.1 L (40.0-50.0) % MCV 81 (80-95) fL MCH 23.0 L (27.0-33.0) pg MCHC 28.5 L (32.0-36.0) % RDW 23.1 H (11.8-14.1) % Plt Count 85 L (130-400) 10^3/uL MPV (8.0-11.0) fL Immature Gran % 0.4 % Neutrophils % 78.8 % Lymphocytes % 7.7 % Monocytes % 7.3 % Eosinophils % 5.1 % Basophils % 0.7 % Nucleated RBC % 0.0 (0.0-0.3) % Absolute Neutrophils 3.57 (1.2-6.7) 10^3/uL Absolute Lymphocytes 0.35 L (1.2-3.4) 10^3/uL Absolute Monocytes 0.33 (0.1-0.8) 10^3/uL Absolute Eosinophils 0.23 (0.0-0.7) 10^3/uL Absolute Basophils 0.03 (0.0-0.2) 10^3/uL RBC Morphology See Below Poikilocytosis 1+ Anisocytosis 2+ Sodium 142 (136-145) mmol/L Potassium 4.4 (3.5-5.1) mmol/L Chloride 108 H (98-107) mmol/L Carbon Dioxide 24.3 (21.0-32.0) mmol/L Anion Gap 9.7 (3-11) mmol/L BUN 17 (7-18) mg/dL Creatinine 1.2 (0.70-1.30) mg/dL Est GFR (CKD-EPI 2020) 61.90 (mL/min/1.73m2) Glucose 91 (74-106) mg/dL Calcium 8.8 (8.5-10.1) mg/dL Total Bilirubin 1.6 H (0.2-1.0) mg/dL AST 32 (15-37) U/L ALT 17 (16-63) U/L Alkaline Phosphatase 134 H (46-116) U/L Total Protein 6.0 L (6.4-8.2) g/dL Albumin 2.7 L (3.4-5.0) g/dL Lipase 42 (<78) U/L COVID-19 Source Pending SARS-CoV-2 (PCR) Pending Influenza Type A (PCR) Pending Influenza Type B (PCR) Pending RSV (PCR) Pending Intake and Output - 24 Hour Total 05/28/25 20:31 thru 05/29/25 00:30 Intake Total 600 Output Total 400 Balance 200 Weight 104.644 kg Intake: IV 600 Output: Gastric Drainage 400 Right Nare 400 Falls Risk Assessment History of Falls Previous History 05/28/25 20:41 Contributing Factors Impairments 05/28/25 20:41 Ambulatory Aids Uses ambulatory device 05/28/25 20:41 Tubes/Lines None 05/28/25 20:41 Gait Evaluation W/no contributing factors 05/28/25 20:41 Cognition No cognitive impairment 05/28/25 20:41 Fall Total Score 43 05/28/25 20:41 Level of Risk Moderate Risk 05/28/25 20:41 Problems (Last Reviewed 05/29/25 @ 00:40 by Phoenix Jim) Hypothyroidism (acquired) (Chronic) SBO (small bowel obstruction) (Acute) Anemia (Chronic) v v v v v v v v v Sending and/or Receiving Nurses: Please use comment section below to note any information pertinent to the patient hand-off not included above. Information / Comments: Report received from: Jennifer
[2025-05-29 02:45] LABS: COVID-19 PCR Negative (Negative); RSV PCR Negative (Negative)
[2025-05-29] MEDS: Normal Saline 1,000 ML 80 ML IV (03:08)
[2025-05-29] MEDS: Levothyroxine 100 MCG TAB PO (06:17)
[2025-05-29 06:45] LABS: HCT 28.8 % (40.0-50.0); HGB 8.3 g/dL (13.5-17.5); MCH 23.4 pg (27.0-33.0); MCHC 28.8 % (32.0-36.0); MCV 81 fL (80-95); MPV 11.7 fL (8.0-11.0); RBC 3.55 10^6/uL (4.36-5.78); RDW-SD 67.9 fL; WBC 6.45 10^3/uL (4.4-10.8)
[2025-05-29 06:47] LABS: INR 1.4 (0.9-1.1); Prothrombin Time 13.6 sec (9.1-11.1)
[2025-05-29 07:04] LABS: ALT 16 U/L (16-63); AST 28 U/L (15-37); Albumin 2.4 g/dL (3.4-5.0); Alkaline Phosphatase 126 U/L (46-116); Anion Gap 10.1 mmol/L (3-11); BUN 17 mg/dL (7-18); Bilirubin, Total 1.6 mg/dL (0.2-1.0); CO2 23.9 mmol/L (21.0-32.0); Calcium 8.5 mg/dL (8.5-10.1); Chloride 109 mmol/L (98-107); Estimated GFR 61.90 (mL/min/1.73m2); Glucose 74 mg/dL (74-106); Magnesium 1.5 mg/dL (1.8-2.4); Potassium 4.3 mmol/L (3.5-5.1); Sodium 143 mmol/L (136-145); Total Protein 5.5 g/dL (6.4-8.2)
[2025-05-29 07:12] LABS: NT-proBNP 740 pg/mL (<300); TSH (W/Ref FT4) 7.27 uIU/mL (0.36-3.74)
[2025-05-29 07:29] LABS: Platelet Count 87 10^3/uL (130-400); RDW 23.4 % (11.8-14.1)
--- NOTE | 2025-05-29 09:07 | INITIAL_ITS ---
Date of service: 05/29/25 Time of Service: 09:07 Care Management Initial Assmt Initial Assessment Reason for Hospitalization: SBO Functional Status/Living Situation Patient Presentation: Merrill has been residing at [facility] for the past several months. He had been living in [place] with his and son but became too weak to remain home safely. Merrill is retired and is supported by the [place] with all of his healthcare. He uses a walker and wheelchair for mobility and requires some assistance with ADLs, particularly with lower extremity dressing and toileting. He has an ostomy. Merrill was sitting up in a chair when CM met with him. He was in good spirits and engaged readily with CM, well known to him from many prior hospitalizations. Merrill was admitted with a small bowel obstruction. He has had this issue several times in the past and was pretty sure that was what was causing his pain. He has an NG tube and is NPO. He informed that, at that moment, his pain level was a zero. Merrill shared that he had become friustrated with the staff at [facility] yesterday. When hs abdominal pain intensified he asked for pain medicine. He stated that he was given Tylenol which he felt was inadequate. Apparently he threatened to leave the building and an ambulance was called. Town of Residence: [facility] Resides with: Other (SNF) Significant Other/Family: Local Natural Supports: Cely and son Scott Employment Status: Retired Instrumental Activities of Daily Living (ADLs): Requires support Medications Medication Management: No Issues/Barriers identified Physical Functioning/Mobility Assistive Device: walker and w/c Advance Directives Advance Directives: Do you have an Advance Directive: Y , 02:24 AD On File at [facility]: N 08/05/24, 10:22 Date Asked 05/25/25 05/25/25, 21:11 AD Date Reviewed COLST On File at [facility] No 12/04/23, 16:58 COLST Date Scanned Code Status Resuscitation Status Full Code Portal Pt does not currently have a portal and education provided: Yes Insurance Coverage/Financial Issues Insurance: [place] Medicare Care Team Visit Care Team Role Provider Type Osmar Blancas MD MD [facility] STAFF PHYSICIAN Maryann Whitt Primary Care Provider NURSE PRACTITIONER Jessica Tate MD Other Providers [facility] STAFF PHYSICIAN Aftab Esparza MD Emergency Provider [facility] STAFF PHYSICIAN Phoenix Jim Admit Provider NON-[facility] STAFF PHYSICIAN Attending Provider Discharge Potential Discharge Needs: PCP F/U Appt and Surgical F/U Appt Anticipated Barriers to Discharge: None Identified Patient/Family Education Needs: Review discharge instructions, discuss Ask Me Three Transportation: RCT Plan: Anticipate Merrill will transfer back to [facility] when he is medically stable. He will follow up with the facility providers and plan of care and transsport via RCT coordinated by CM. CM will follow. Social Determinants of Health Screening Will the Patient Participate in the Screening?: Unable to obtain Do you worry about having a steady place to live?: no In the past 12 months, have you had to go without electric, gas, oil or water in your home?: no Has lack of transportation kept you from medical appointments or from doing things needed for daily living?: no Has anyone in your life made you feel unsafe or unsupported?: no How hard is it for you to pay for the very basics like food, housing, medical care, and heating? Would you say it is:: Not hard at all Do you want help finding or keeping work or a job?: I do not need or want help If for any reason you need help with day-to-day activities such as bathing, preparing meals, shopping, managing finances, etc., do you get the help you need?: I don?t need any help How often do you feel lonely or isolated from those around you?: Never Do you speak a language other than Guyanese at home?: No Does the patient want assistance with any of the above?: No PFSH All Active Problems Hypothyroidism (acquired) (Chronic) SBO (small bowel obstruction) (Acute) Depression (Chronic) SBO (small bowel obstruction) (Acute) Anemia (Chronic) History of creation of ostomy (Acute) Contusion (Acute) Liver mass (Acute) Vomiting (Acute) Abdominal pain (Acute) Elevated lactic acid level (Acute) Acute UTI (Acute) Symptomatic bradycardia (Acute) Acute hypokalemia (Acute) Family conflict (Acute) Chest pain in adult (Acute) Fall (Acute) Chronic low back pain (Chronic) Hematuria (Acute) Leukopenia (Acute) Oral candidiasis (Acute) Sepsis syndrome (Acute) Gram-negative bacteremia (Acute) Cellulitis (Acute) Lower urinary obstructive symptom (Acute) Anemia of chronic disease (Acute) Ventricular ectopy (Acute) Sinus bradycardia (Acute) Leukocytosis (Acute) Hypertension (Chronic) Elevated lactic acid level (Acute) CHF (congestive heart failure) (Chronic) No-show for appointment (Acute) Left rotator cuff tear (Acute) Acute UTI (urinary tract infection) (Acute) Weakness (Acute) Non-ST elevation [place] (NSTEMI) (Acute) Pre-syncope (Acute) Frequent falls (Acute) Orthostatic hypotension (Acute) Hypokalemia (Acute) Bradycardia (Acute) Multiple falls (Acute) Acute metabolic encephalopathy (Acute) Medication monitoring encounter (Acute) Chest pain (Acute) CHF (congestive heart failure) (Chronic) EF 25%- 2023 Medical History Chronic GERD BPH (benign prostatic hyperplasia) Major depression, recurrent, chronic Severe obesity (BMI >= 40) Diabetes mellitus treated with oral medication Anemia associated with acute blood loss Acute on chronic HFrEF (heart failure with reduced ejection fraction) Anemia Splenomegaly Thrombocytopenia Colostomy care Thrombocytopenia Chronic atrial fibrillation Type 2 diabetes mellitus CHF exacerbation ANETTE (obstructive sleep apnea) Chronic heart failure with reduced ejection fraction (HFrEF, <= 40%) Anemia Cirrhosis of liver without ascites Diabetes PAF (paroxysmal atrial fibrillation) Goals of care, counseling/discussion Lactic acidosis UTI (urinary tract infection) Urinary tract infection Advanced care planning/counseling discussion Palliative care encounter Followed by [facility] Bowel obstruction Sepsis Heart failure with reduced ejection fraction Hypothyroidism Small bowel obstruction Lactic acid acidosis Creatinine elevation Acute UTI Anticoagulated COVID Recurrent intestinal obstruction History of colon cancer Chronic anticoagulation Portal hypertension Cirrhosis TIPs placed (?when, [facility]? 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, Dx [facility] as per pt Non-insulin dependent type 2 diabetes mellitus Incontinence Hypertension Scleral icterus Surgical History S/P TIPS (transjugular intrahepatic portosystemic shunt) H/O left hemicolectomy Colostomy in place Social History Smoking/Tobacco Use Status: Former Tobacco Use Smoking risk assessment performed?: Yes Alcohol Intake: former Drug use: Never Substance use type: does not use Housing: longterm Do you feel safe at home: Yes Do you feel safe in your relationship?: Yes Additional [facility] history[facility]
--- NOTE | 2025-05-29 09:30 | DI.RAD_ITS ---
Exam(s) XR PORTABLE CHEST AP POST LINE EXAM: XR PORTABLE CHEST AP POST LINE CLINICAL HISTORY: NG tube placement. TECHNIQUE: 2D digital imaging was performed. COMPARISON: CR XR CHEST 2V PA LATERAL from 05/15/[address] ABDOMEN PELVIS W from 05/28/2025 FINDINGS: Single AP portable view. There is mild cardiomegaly. The mediastinum is not widened. There is an NG tube in place. Distal tip appears to be in the stomach. There increased interstitial markings both lung mendez and there are small bilateral pleural effusions. Possibly element of pulmonary edema. IMPRESSION: Mild cardiomegaly. Interstitial pulmonary edema and small pleural effusions. NG tube is in satisfactory position in the stomach DATA REPOSITORY: RADIATION DOSE DELIVERED:
--- NOTE | 2025-05-29 10:25 | W.SURGCON ---
Date of service: 05/29/25 Time of Service: 10:26 Assessment and Plan Assessment and plan (1) SBO (small bowel obstruction): Status: Acute Assessment and plan: Findings consistent with SBO. NG tube placed, 550mL out overnight. Dislodged and replaced this AM, I reviewed the XR and tube is in proper position in stomach. Continue decompression and bowel rest. Judicious fluids with his CHF. Optimize electrolytes during bowel obstruction, keep K around 4, Mg around 2. Will avoid surgery for him as much as possible due to comorbidities. He may be a better candidate for tertiary center if he requires an operation. He has successfully resolved these recurring SBOs without surgery in the past so hopefully we do not have to discuss surgical intervention during this stay. (2) CHF (congestive heart failure): Status: Chronic Assessment and plan: Noted. Absorption of meds is impaired during SBO. Lasix changed to IV. Noncritical meds can be held or can try to put them down tube, ok to try. (3) Cirrhosis: Assessment and plan: s/p TIPS. Makes him high risk candidate for surgical intervention. Would be more conservative with allowing more time than typical to resolve this SBO in order to avoid surgery. (4) Chronic anticoagulation: Assessment and plan: Will defer to primary care on whether or not this is necessary given his bleeding risk and recurring bleeding from stoma site. Im sure they have already given thoughtful consideration of his global clinical picture so no changes will be made. He has a lot of comorbid conditions but is well managed for what he has. History of Present Illness History of Present Illness Chief Complaint: SBO Narrative: Is a 80-year-old male admitted with small bowel obstruction. He has had recurrent small bowel obstructions in the past and has required laparotomy for this in the past. His current symptoms have been going on for 1 day. Yesterday morning he says he noticed abdominal pain and distention and no/minimal output from his stoma. His symptoms worsened through the day and he developed central and diffuse dull and sharp abdominal pain that was constant. The pain did not radiate. The pain did not improve with anything specific. The pain worsened with palpation. He lost his appetite. He had nausea. There is a vague remote history of APR with left descending colostomy. He also has had a right hemicolectomy in the past. He has had open appendectomy and has a very large scar in the transverse plane in the right lower quadrant. He has wide contracted scars in the midline. 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 He has thrombocytopenia and elevated INR. He experiences bleeding from the edges of his stoma frequently. He has CHF with an ejection fraction of 25 to 30%. He has atrial fibrillation and is on anticoagulation in addition to his thrombocytopenia and elevated INR. He was recently placed in a care facility rather than living at home with his . He mentioned passive thoughts of suicide in the emergency department yesterday but feels better this morning. Review of Systems All systems reviewed & are unremarkable except as noted in HPI and below PFSH All Active Problems Hypothyroidism (acquired) (Chronic) SBO (small bowel obstruction) (Acute) Depression (Chronic) SBO (small bowel obstruction) (Acute) Anemia (Chronic) History of creation of ostomy (Acute) Contusion (Acute) Liver mass (Acute) Vomiting (Acute) Abdominal pain (Acute) Elevated lactic acid level (Acute) Acute UTI (Acute) Symptomatic bradycardia (Acute) Acute hypokalemia (Acute) Family conflict (Acute) Chest pain in adult (Acute) Fall (Acute) Chronic low back pain (Chronic) Hematuria (Acute) Leukopenia (Acute) Oral candidiasis (Acute) Sepsis syndrome (Acute) Gram-negative bacteremia (Acute) Cellulitis (Acute) Lower urinary obstructive symptom (Acute) Anemia of chronic disease (Acute) Ventricular ectopy (Acute) Sinus bradycardia (Acute) Leukocytosis (Acute) Hypertension (Chronic) Elevated lactic acid level (Acute) CHF (congestive heart failure) (Chronic) No-show for appointment (Acute) Left rotator cuff tear (Acute) Acute UTI (urinary tract infection) (Acute) Weakness (Acute) Non-ST elevation [place] (NSTEMI) (Acute) Pre-syncope (Acute) Frequent falls (Acute) Orthostatic hypotension (Acute) Hypokalemia (Acute) Bradycardia (Acute) Multiple falls (Acute) Acute metabolic encephalopathy (Acute) Medication monitoring encounter (Acute) Chest pain (Acute) CHF (congestive heart failure) (Chronic) EF 25%- 2023 Medical History Chronic GERD BPH (benign prostatic hyperplasia) Major depression, recurrent, chronic Severe obesity (BMI >= 40) Diabetes mellitus treated with oral medication Anemia associated with acute blood loss Acute on chronic HFrEF (heart failure with reduced ejection fraction) Anemia Splenomegaly Thrombocytopenia Colostomy care Thrombocytopenia Chronic atrial fibrillation Type 2 diabetes mellitus CHF exacerbation ANETTE (obstructive sleep apnea) Chronic heart failure with reduced ejection fraction (HFrEF, <= 40%) Anemia Cirrhosis of liver without ascites Diabetes PAF (paroxysmal atrial fibrillation) Goals of care, counseling/discussion Lactic acidosis UTI (urinary tract infection) Urinary tract infection Advanced care planning/counseling discussion Palliative care encounter Followed by [facility] Bowel obstruction Sepsis Heart failure with reduced ejection fraction Hypothyroidism Small bowel obstruction Lactic acid acidosis Creatinine elevation Acute UTI Anticoagulated COVID Recurrent intestinal obstruction History of colon cancer Chronic anticoagulation Portal hypertension Cirrhosis [place] [facility] 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, Dx [facility] as per pt Non-insulin dependent type 2 diabetes mellitus Incontinence Hypertension Scleral icterus Surgical History S/P TIPS (transjugular intrahepatic portosystemic shunt) H/O left hemicolectomy Colostomy in place Social History Smoking/Tobacco Use Status: Former Tobacco Use Smoking risk assessment performed?: Yes Alcohol Intake: former Drug use: Never Substance use type: does not use Housing: [facility] Do you feel safe at home: Yes Do you feel safe in your relationship?: Yes Additional Social history: from [facility] Exam Narrative Exam Narrative: awake, NAD eomi, MMM midline trachea, neck is symmetric PULM: normal resp effort, equal chest rise with respiration CARDIAC: regular rate, normal perfusion abdomen is round and protuberant. Midline wide scar, left sided ostomy that is retracted to skin level. It is pink. There is dry solid stool in the bag, but no gas, bag is decompressed. mild diffuse TTP witout peritonitis. NG tube in place extremities are without deformity, normal movement of all four extremities speech is clear and coherent mood and affect are congruent, no focal neurological deficits skin without rash Results Last Vital Signs Temp 97.5 F L 05/29/25 07:53 Pulse 66 05/29/25 07:53 Resp 17 05/29/25 07:53 BP 141/68 H 05/29/25 07:53 Pulse Ox 91 L 05/29/25 07:53 Labs 05/29/25 06:00 05/29/25 06:00 Labs: Laboratory Results - last 24 hr 05/28/25 05/29/25 05/29/25 20:55 02:00 06:00 WBC 4.53 6.45 RBC 3.61 L 3.55 L Hgb 8.3 L 8.3 L Hct 29.1 L 28.8 L MCV 81 81 MCH 23.0 L 23.4 L MCHC 28.5 L 28.8 L RDW 23.1 H 23.4 H Plt Count 85 L 87 L MPV 11.7 H Immature Gran % 0.4 Neutrophils % 78.8 Lymphocytes % 7.7 Monocytes % 7.3 Eosinophils % 5.1 Basophils % 0.7 Nucleated RBC % 0.0 Absolute Neutrophils 3.57 Absolute Lymphocytes 0.35 L Absolute Monocytes 0.33 Absolute Eosinophils 0.23 Absolute Basophils 0.03 RBC Morphology See Below Poikilocytosis 1+ Anisocytosis 2+ PT 13.6 H INR 1.4 H Sodium 142 143 Potassium 4.4 4.3 Chloride 108 H 109 H Carbon Dioxide 24.3 23.9 Anion Gap 9.7 10.1 BUN 17 17 Creatinine 1.2 1.2 Est GFR (CKD-EPI 2020) 61.90 61.90 Glucose 91 74 Calcium 8.8 8.5 Magnesium 1.5 L Total Bilirubin 1.6 H 1.6 H AST 32 28 ALT 17 16 Alkaline Phosphatase 134 H 126 H NT-Pro-B Natriuret Pep 740 H Total Protein 6.0 L 5.5 L Albumin 2.7 L 2.4 L Lipase 42 TSH 7.27 H Free T4 1.40 COVID-19 Source Nasopharynx SARS-CoV-2 (PCR) Negative Influenza Type A (PCR) Negative Influenza Type B (PCR) Negative RSV (PCR) Negative Imaging Abdomen CT scan report/results: report reviewed and image reviewed
--- NOTE | 2025-05-29 10:26 | DI.VRAD_ITS ---
PROCEDURE INFORMATION: Exam: XR Chest Exam date and time: 05/29/2025 9:47 AM Age: 80 years old Clinical indication: Device placement; Ng tube TECHNIQUE: Imaging protocol: Radiologic exam of the chest. Views: 1 view. COMPARISON: CR XR CHEST 2V PA LATERAL 05/15/2025 12:27 PM FINDINGS: Tubes, catheters and devices: An enteric feeding tube is present, with its tip located in the stomach in good position.. Lungs: Opacity in the left base may represent atelectasis or pneumonia.. Pleural spaces: Small left pleural effusion Heart/Mediastinum: Cardiomegaly and mild vascular prominence may represent interstitial edema. Bones/joints: Unremarkable. IMPRESSION: 1. An enteric feeding tube is present, with its tip located in the stomach in good position.. 2. Cardiomegaly and mild vascular prominence may represent interstitial edema. 3. Opacity in the left base may represent atelectasis or pneumonia.. Dictated and Authenticated by: Bebeto Da Silva MD. Orderin Yonny Prasad MD
[2025-05-29] MEDS: Rifaximin 550 MG TAB NG ×2 (11:20→20:29)
[2025-05-29] MEDS: Losartan 50 MG TAB NG ×2 (11:20→20:28)
[2025-05-29] MEDS: Diclofenac 1% Gel 100 GM TUBE TP ×3 (11:20→20:30)
[2025-05-29] MEDS: Apixaban 5 MG TAB NG ×2 (11:21→20:29)
[2025-05-29] MEDS: Spironolactone 25 MG TAB 12.5 MG NG (11:21)
--- NOTE | 2025-05-29 11:25 | PHA.REVIEW2 ---
Pharmacy Admission Review Admission Clinical Review Admission Pharmacy Review: SBO (small bowel obstruction) (Acute) Penicillins Allergy (Mild, Verified 05/28/25 20:53) Itching mussels Allergy (Verified 05/28/25 20:53) Anaphylaxis morphine Adverse Reaction (Severe, Verified 05/28/25 20:53) vomiting Resuscitation Status Full Code Height 5 ft 6 in Weight 104.6 kg Comments Comments/Follow Ups: follow up on pantoprazole (home med list but not ordered) if order not put in by provider Pharmacy Admission Review Renal Dosing Renal Dosing: BUN 17 mg/dL (7-18) 05/29/25 06:00 Creatinine 1.2 mg/dL (0.70-1.30) 05/29/25 06:00 Medications needing adjustments: Reviewed (CrCl 57.4 mL/min) List of meds needing interventions: Current medications are okay Anticoagulation Anticoagulation: Hgb 8.3 g/dL (13.5-17.5) L 05/29/25 06:00 Hct 28.8 % (40.0-50.0) L 05/29/25 06:00 Plt Count 87 10^3/uL (130-400) L 05/29/25 06:00 INR 1.4 (0.9-1.1) H 05/29/25 06:00 Creatinine 1.2 mg/dL (0.70-1.30) 05/29/25 06:00 DVT Prophylaxis: Reviewed Medications: Apixaban (5mg BID) Relevant Labs Relevant Labs: Sodium 143 mmol/L (136-145) 05/29/25 06:00 Potassium 4.3 mmol/L (3.5-5.1) 05/29/25 06:00 Chloride 109 mmol/L (98-107) H 05/29/25 06:00 Magnesium 1.5 mg/dL (1.8-2.4) L 05/29/25 06:00 Electrolytes, C-Reactive P, ESR: Reviewed DM Control DM Control: Glucose 74 mg/dL (74-106) 05/29/25 06:00 Finger Stick Blood Glucose 86 Finger Stick Blood Glucose 86 Finger Stick Blood Glucose 86 DM Control: Intervened Insulin Dosing, Diabetic Medication: Has order for SS insulin (changed from meal time and HS to q6h as patient is currently NPO as requested by nursing). Also has order for Jardiance 25mg daily. Cardiac Review Cardiac Review: NT-Pro-B Natriuret Pep 740 pg/mL (<300) H 05/29/25 06:00 Blood Pressure 134/62 1110 Blood Pressure 141/68 0753 Blood Pressure 142/61 0458 Blood Pressure 132/62 0147 BP, HR, EF%: Reviewed (HR WNL, Ox 88 and oxygen flow rate = 1) List meds needing interventions: Has orders for furosemide IVP BID@0830,1600, losartan 50mg BID and spironolactone 12.5mg daily QTc Review QTc: Reviewed (472 from 05/15/25 - most recent EKG on file) IV to PO Switch IV Medications: Reviewed (NPO - NG tube) Home Meds Home Med List reviewed: Intervened Relevent Home Meds Not ordered & why?: metformin (on hold per H+P), bisacodyl (PRN) and pantoprazole Asked provider about pantoprazole, per provider they will be putting in the order Current Meds Current Medication Order Review: Intervened Comments: Changed orders from PO to NG that could be Reached out to provider about tamsulosin and venlafaxine XR as these capsules can not be opened and given via NG tube. Provider asked that tamsulosin be put on hold for now and that venlafaxine be changed to venlafaxine 75mg IR TID to equal the 225mg daily. - Per [facility] - Patients treated with a therapeutic dose with IR venlafaxine hydrochloride may be switched to venlafaxine ER hydrochloride at the nearest equivalent dose (mg/day). Orders were put in for lactulose and potassium from patients home med list. Reached out to patient as these are contraindicated in patients with SBO. Provider asked that the orders be put on hold for now. Added 2nd PRN to ondansetron per pharmacy protocol Comments Comments/Follow Ups: follow up on pantoprazole (home med list but not ordered) if order not put in by provider
[2025-05-29] MEDS: Glucose Oral Gel 15 GM/37.5 GM TUBE PO (12:43)
[2025-05-29] MEDS: Empaglifozin 25 MG TAB NG (12:43)
--- NOTE | 2025-05-29 13:47 | PDOC.CMIN ---
Care Management Initial Assmt Advance Directives Advance Directives: Do you have an Advance Directive: Y 08/05/24, 02:24 AD On File at [facility]: N 08/05/24, 10:22 Date Asked 05/25/25 05/25/25, 21:11 AD Date Reviewed COLST On File at [facility] No 12/04/23, 16:58 COLST Date Scanned Code Status Resuscitation Status Full Code Care Team Visit Care Team Role Provider Type Osmar Blancas MD MD [facility] PHYS[facility] Maryann Whitt Primary Care Provider NURSE PRACTITIONER Jessica Tate MD Other Providers [facility] Aftab Esparza MD Emergency Provider [facility] [place] Jim Admit Provider NON-[facility] PHYSICIAN Attending Provider Social Determinants of Health Screening Will the Patient Participate in the Screening?: Unable to obtain Do you worry about having a steady place to live?: no In the past 12 months, have you had to go without electric, gas, oil or water in your home?: no Has lack of transportation kept you from medical appointments or from doing things needed for daily living?: no Has anyone in your life made you feel unsafe or unsupported?: no How hard is it for you to pay for the very basics like food, housing, medical care, and heating? Would you say it is:: Not hard at all Do you want help finding or keeping work or a job?: I do not need or want help If for any reason you need help with day-to-day activities such as bathing, preparing meals, shopping, managing finances, etc., do you get the help you need?: I don?t need any help How often do you feel lonely or isolated from those around you?: Never Do you speak a language other than Maori at home?: No Does the patient want assistance with any of the above?: No PFSH All Active Problems Hypothyroidism (acquired) (Chronic) SBO (small bowel obstruction) (Acute) Depression (Chronic) SBO (small bowel obstruction) (Acute) Anemia (Chronic) History of creation of ostomy (Acute) Contusion (Acute) Liver mass (Acute) Vomiting (Acute) Abdominal pain (Acute) Elevated lactic acid level (Acute) Acute UTI (Acute) Symptomatic bradycardia (Acute) Acute hypokalemia (Acute) Family conflict (Acute) Chest pain in adult (Acute) Fall (Acute) Chronic low back pain (Chronic) Hematuria (Acute) Leukopenia (Acute) Oral candidiasis (Acute) Sepsis syndrome (Acute) Gram-negative bacteremia (Acute) Cellulitis (Acute) Lower urinary obstructive symptom (Acute) Anemia of chronic disease (Acute) Ventricular ectopy (Acute) Sinus bradycardia (Acute) Leukocytosis (Acute) Hypertension (Chronic) Elevated lactic acid level (Acute) CHF (congestive heart failure) (Chronic) No-show for appointment (Acute) Left rotator cuff tear (Acute) Acute UTI (urinary tract infection) (Acute) Weakness (Acute) Non-ST elevation [place] (NSTEMI) (Acute) Pre-syncope (Acute) Frequent falls (Acute) Orthostatic hypotension (Acute) Hypokalemia (Acute) Bradycardia (Acute) Multiple falls (Acute) Acute metabolic encephalopathy (Acute) Medication monitoring encounter (Acute) Chest pain (Acute) CHF (congestive heart failure) (Chronic) EF 25%- 2023 Medical History Chronic GERD BPH (benign prostatic hyperplasia) Major depression, recurrent, chronic Severe obesity (BMI >= 40) Diabetes mellitus treated with oral medication Anemia associated with acute blood loss Acute on chronic HFrEF (heart failure with reduced ejection fraction) Anemia Splenomegaly Thrombocytopenia Colostomy care Thrombocytopenia Chronic atrial fibrillation Type 2 diabetes mellitus CHF exacerbation ANETTE (obstructive sleep apnea) Chronic heart failure with reduced ejection fraction (HFrEF, <= 40%) Anemia Cirrhosis of liver without ascites Diabetes PAF (paroxysmal atrial fibrillation) Goals of care, counseling/discussion Lactic acidosis UTI (urinary tract infection) Urinary tract infection Advanced care planning/counseling discussion Palliative care encounter Followed by [facility] Bowel obstruction Sepsis Heart failure with reduced ejection fraction Hypothyroidism Small bowel obstruction Lactic acid acidosis Creatinine elevation Acute UTI Anticoagulated COVID Recurrent intestinal obstruction History of colon cancer Chronic anticoagulation Portal hypertension Cirrhosis TIPs placed (?when, 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, Dx [facility] as per pt Non-insulin dependent type 2 diabetes mellitus Incontinence Hypertension Scleral icterus Surgical History S/P TIPS (transjugular intrahepatic portosystemic shunt) H/O left hemicolectomy Colostomy in place Social History Smoking/Tobacco Use Status: Former Tobacco Use Smoking risk assessment performed?: Yes Alcohol Intake: former Drug use: Never Substance use type: does not use Housing: correction Do you feel safe at home: Yes Do you feel safe in your relationship?: Yes Additional Social history: from [facility]
[2025-05-29] MEDS: DEXTROSE 5%-0.9% SALINE 1,000 ML 80 ML IV (15:25)
[2025-05-29] MEDS: Furosemide 20 MG/2 ML VIAL 10 MG IVP (16:29)
[2025-05-29] MEDS: Normal Saline Flush 10 ML SYR IVP ×2 (16:30→20:29)
[2025-05-29 16:52] LABS: Glucose >=1000 mg/dL (Negative)
[2025-05-29 17:03] LABS: C & S Indicated? No
[2025-05-29] MEDS: Prazosin 5 MG CAP 10 MG NG (20:28)
[2025-05-29] MEDS: Melatonin 3 MG TAB 6 MG PO (20:29)
[2025-05-30 00:19] VITALS: BP 108/45; PULSE 54; RESP 20; TEMP 36.3; O2SAT 92
[2025-05-30] MEDS: DEXTROSE 5%-0.9% SALINE 1,000 ML 80 ML IV ×2 (02:29→15:04)
[2025-05-30] MEDS: MAGNESIUM SULFATE 2 GM/50 ML BAG IV_INF (02:30)
[2025-05-30 05:23] VITALS: BP 126/91; PULSE 70; RESP 24; TEMP 36.5; O2SAT 91
[2025-05-30] MEDS: Levothyroxine 100 MCG TAB NG (05:59)
[2025-05-30 06:25] VITALS: O2SAT 94
[2025-05-30 07:27] VITALS: BP 133/62; PULSE 70; RESP 17; TEMP 36.4; O2SAT 93
[2025-05-30] MEDS: Normal Saline Flush 10 ML SYR IVP ×2 (08:20→20:24)
[2025-05-30] MEDS: Spironolactone 25 MG TAB 12.5 MG NG (08:21)
[2025-05-30] MEDS: Losartan 50 MG TAB NG ×2 (08:21→20:25)
[2025-05-30] MEDS: Furosemide 20 MG/2 ML VIAL IVP (08:21)
[2025-05-30] MEDS: Empaglifozin 25 MG TAB NG (08:22)
[2025-05-30] MEDS: Apixaban 5 MG TAB NG (08:22)
[2025-05-30] MEDS: Rifaximin 550 MG TAB NG ×2 (08:22→20:24)
[2025-05-30] MEDS: Ferrous Sulfate 325 MG TAB NG (08:22)
[2025-05-30] MEDS: Diclofenac 1% Gel 100 GM TUBE TP ×3 (08:23→20:24)
--- NOTE | 2025-05-30 09:16 | CMPROGNOTE_ITS ---
Date of service: 05/30/25 Time of Service: 09:16 Care Management Progress Note Progress Note Text Progress Note Text: Merrill was sitting up in a chair when CM met with him. He expressed concern about some upcoming doctor's appointments at the [place]. CM contacted his Cely who shared that she had already called [facility] and they were rescheduling the appointments. Merrill was also very concerned that his NG tube is draining blood. The hospitalist saw him and informed him that he plans to discuss the situation with the surgeon who is already involved in his care. Merrill has chronic anemic and has required transfusions in the past, most recently in March and . Bloodwork was drawn this morning. Results obtained this afternoon show no substantial change in his H&H and Merrill has no new symptoms. His NG tube is not attached to suction at this time so difficult to assess if there is continued bleeding. The surgeon did see him and informed the charge nurse that she believes the bleeding is from irritation from the NG tube and ordered protonix. Discharge Potential Discharge Needs: PCP F/U Appt and Other Anticipated Barriers to Discharge: None Identified Patient/Family Education Needs: Review discharge instructions, discuss Ask Me Three Transportation: RCT Plan: Anticipate Merrill will transfer back to [facility] when he is medically stable. He will follow up with the facility providers and plan of care and transport via RCT coordinated by RICHARD. CM will follow. Social Determinants of Health Screening Will the Patient Participate in the Screening?: Unable to obtain Do you worry about having a steady place to live?: no In the past 12 months, have you had to go without electric, gas, oil or water in your home?: no Has lack of transportation kept you from medical appointments or from doing things needed for daily living?: no Has anyone in your life made you feel unsafe or unsupported?: no How hard is it for you to pay for the very basics like food, housing, medical care, and heating? Would you say it is:: Not hard at all Do you want help finding or keeping work or a job?: I do not need or want help If for any reason you need help with day-to-day activities such as bathing, preparing meals, shopping, managing finances, etc., do you get the help you need?: I don?t need any help How often do you feel lonely or isolated from those around you?: Never Do you speak a language other than Bolivian at home?: No Does the patient want assistance with any of the above?: No
--- NOTE | 2025-05-30 12:42 | PGE_ITS ---
Date of Service Date of service: 05/30/25 Time of Service: 12:42 Assessment and Plan Assessment and plan (1) GIB (gastrointestinal bleeding): Status: Chronic Assessment and plan: pt now on iv protonix. D/W surgery, no further intervention at this time (2) CHF (congestive heart failure): Status: Chronic Assessment and plan: On lasix, losartan, aldactone. It would seem pt would benefit from SGLT2 inhibitor once he is tolerating PO. Actually, pt is on jardiance Echo 03/20 Conclusion Dilated left ventricle. Normal wall thickness. Ejection fraction is 35% with global hypokinesis Normal right ventricular size and function Moderately dilated left atrium. Mildly dilated right atrium Aortic valve is sclerotic and trileaflet without stenosis or regurgitation Compared to echocardiogram from January 2024, EF is improved from 25 to 35% (3) SBO (small bowel obstruction): Status: Acute Assessment and plan: NG in place, will defer to GS (4) Acute kidney injury: Status: Resolved Assessment and plan: pt refused labs today (05/30/25) (5) Lower urinary obstructive symptom: Status: Acute Assessment and plan: cw flomax (6) Anemia of chronic disease: Status: Acute Assessment and plan: stable around 8.3 (7) Non-insulin dependent type 2 diabetes mellitus: Assessment and plan: jadiance, losartan, metformin. Creatinine 1.2 Subjective Subjective Interval history since last seen: NS and pt report Blood in NG tube. NS report pt refused blood draws Exam Narrative Exam Narrative: heent-ncat mmm ng in right nares neck-no lad no jvd cv-rrr no mrg lungs-ctab no amu abd-protuberent, ostomy appliance LLQ [id number] nad Objective Last Vital Signs Temp 36.4 C L 05/30/25 07:27 Pulse 70 05/30/25 07:27 Resp 17 05/30/25 07:27 BP 133/62 05/30/25 07:27 Pulse Ox 93 05/30/25 07:27 Laboratory Results - last 24 hr 05/29/25 05/29/25 05/29/25 16:45 16:45 16:45 Urine Color Yellow Cancelled Urine Clarity Clear Cancelled Urine pH 5.5 Ur Specific [place] Urine Protein Urine Ketones Urine Blood Urine Nitrite Urine Bilirubin Urine Urobilinogen Ur Leukocyte Esterase Urine RBC Urine WBC Ur Epithelial Cells Urine Crystals Urine Bacteria Urine Casts Urine Mucus Urine Other Ur Culture Indicated? Urine Glucose 05/29/25 05/29/25 05/29/25 16:45 16:45 16:45 Urine Color Urine Clarity Urine pH Cancelled Ur Specific [place] 1.020 Cancelled Urine Protein 30 H Cancelled Urine Ketones Negative Urine Blood Urine Nitrite Urine Bilirubin Urine Urobilinogen Ur Leukocyte Esterase Urine RBC Urine WBC Ur Epithelial Cells Urine Crystals Urine Bacteria Urine Casts Urine Mucus Urine Other Ur Culture Indicated? Urine Glucose 05/29/25 05/29/25 05/29/25 16:45 16:45 16:45 Urine Color Urine Clarity Urine pH Ur Specific [place] Urine Protein Urine Ketones Cancelled Urine Blood Small H Cancelled Urine Nitrite Negative Cancelled Urine Bilirubin Negative Urine Urobilinogen Ur Leukocyte Esterase Urine RBC Urine WBC Ur Epithelial Cells Urine Crystals Urine Bacteria Urine Casts Urine Mucus Urine Other Ur Culture Indicated? Urine Glucose 05/29/25 05/29/25 05/29/25 16:45 16:45 16:45 Urine Color Urine Clarity Urine pH Ur Specific [place] Urine Protein Urine Ketones Urine Blood Urine Nitrite Urine Bilirubin Cancelled Urine Urobilinogen 0.2 Cancelled Ur Leukocyte Esterase Negative Cancelled Urine RBC 3-5 H Urine WBC 3-5 Ur Epithelial Cells Rare Urine Crystals Negative Urine Bacteria Rare Urine Casts Negative Urine Mucus Negative Urine Other Moderate Yeast Ur Culture Indicated? No Urine Glucose >=1000 H 05/29/25 16:45 Urine Color Urine Clarity Urine pH Ur Specific [place] Urine Protein Urine Ketones Urine Blood Urine Nitrite Urine Bilirubin Urine Urobilinogen Ur Leukocyte Esterase Urine RBC Urine WBC Ur Epithelial Cells Urine Crystals Urine Bacteria Urine Casts Urine Mucus Urine Other Ur Culture Indicated? Urine Glucose Cancelled Time Spent with Patient Time Spent with Patient: 25-34 minutes Time was spent: preparing to see the patient(eg.review tests), obtaining and/or reviewing separately otained hiistory, ordering medications,tests, procedures, referring, communicating with other health medical care evaluation specialist, indepentently interpreting results, counseling the patient, care coordination and other
[2025-05-30] MEDS: Insulin Aspart 300 UNITS/3 ML PEN SC (13:27)
[2025-05-30] MEDS: Pantoprazole 40 MG VIAL IVP (13:27)
[2025-05-30 14:44] LABS: HCT 28.4 % (40.0-50.0); HGB 8.1 g/dL (13.5-17.5); MCH 23.4 pg (27.0-33.0); MCHC 28.5 % (32.0-36.0); MCV 82 fL (80-95); MPV 11.1 fL (8.0-11.0); RBC 3.46 10^6/uL (4.36-5.78); RDW-SD 70.4 fL; WBC 3.90 10^3/uL (4.4-10.8)
[2025-05-30 14:52] LABS: INR 1.4 (0.9-1.1); Prothrombin Time 13.6 sec (9.1-11.1); RDW 23.9 % (11.8-14.1)
[2025-05-30 14:53] LABS: Platelet Count 86 10^3/uL (130-400)
[2025-05-30 15:08] LABS: ALT 15 U/L (16-63); AST 27 U/L (15-37); Albumin 2.5 g/dL (3.4-5.0); Alkaline Phosphatase 121 U/L (46-116); Anion Gap 5.5 mmol/L (3-11); BUN 13 mg/dL (7-18); Bilirubin, Total 1.6 mg/dL (0.2-1.0); CO2 28.5 mmol/L (21.0-32.0); Calcium 8.2 mg/dL (8.5-10.1); Chloride 110 mmol/L (98-107); Estimated GFR 61.90 (mL/min/1.73m2); Glucose 146 mg/dL (74-106); Magnesium 1.8 mg/dL (1.8-2.4); Potassium 3.7 mmol/L (3.5-5.1); Sodium 144 mmol/L (136-145); Total Protein 5.6 g/dL (6.4-8.2)
[2025-05-30] MEDS: Furosemide 20 MG/2 ML VIAL 10 MG IVP (15:34)
[2025-05-30] MEDS: Chloraseptic Spray 117 ML BTL MM ×2 (15:34→19:50)
[2025-05-30 15:40] VITALS: BP 142/63; PULSE 61
--- NOTE | 2025-05-30 15:57 | W.PM.PROGNOT ---
Date of Service Date of service: 05/30/25 Time of Service: 11:50 Assessment and Plan Assessment and plan (1) SBO (small bowel obstruction): Status: Acute Assessment and plan: Obstruction has not yet resolved. Continue decompression with nasogastric tube, bowel rest with n.p.o. status, and fluid resuscitation. Monitor electrolytes unfortunately he did not allow blood draws today. He was counseled on the importance of electrolyte management and bowel obstruction. 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 And reserving operation for urgent or emergent scenario or severe clinical change,\. The blood in the nasogastric tube is likely from tube trauma within the stomach. It has not been continuous bleeding. Switched the oral pantoprazole to IV to make it more effective and to be sure it is absorption. Followclinically if bleeding continues we may need to hold his Eliquis (2) Cirrhosis: (3) Portal hypertension: Subjective Subjective Interval history since last seen: The patient states he feels about the same. He still has some abdominal pain, it is not any worse. It may be slightly better. He does not have a good appetite but would eat if we would let him. NG tube today had some blood streaking. He is on Eliquis Exam Narrative Exam Narrative: Extraocular muscles are intact, mucous membranes are moist. The NG tube is partially bilious with bright red blood streaking in the tubing. There is no active blood coming out of the tube. The abdomen is softly distended mildly tender diffusely. He does not have diffuse peritonitis. Left abdominal stoma with decompressed bag. Objective Last Vital Signs Temp 97.5 F L 05/30/25 07:27 Pulse 61 05/30/25 15:40 Resp 17 05/30/25 07:27 BP 142/63 H 05/30/25 15:40 Pulse Ox 93 05/30/25 07:27 Laboratory Results - last 24 hr 05/29/25 05/29/25 05/29/25 16:45 16:45 16:45 WBC RBC Hgb Hct MCV MCH MCHC RDW Plt Count MPV PT INR Sodium Potassium Chloride Carbon Dioxide Anion Gap BUN Creatinine Est GFR (CKD-EPI 2020) Glucose Calcium Magnesium Total Bilirubin AST ALT Alkaline Phosphatase Total Protein Albumin Urine Color Yellow Cancelled Urine Clarity Clear Cancelled Urine pH 5.5 Ur Specific [place] Urine Protein Urine Ketones Urine Blood Urine Nitrite Urine Bilirubin Urine Urobilinogen Ur Leukocyte Esterase Urine RBC Urine WBC Ur Epithelial Cells Urine Crystals Urine Bacteria Urine Casts Urine Mucus Urine Other Ur Culture Indicated? Urine Glucose 05/29/25 05/29/25 05/29/25 16:45 16:45 16:45 WBC RBC Hgb Hct MCV MCH MCHC RDW Plt Count MPV PT INR Sodium Potassium Chloride Carbon Dioxide Anion Gap BUN Creatinine Est GFR (CKD-EPI 2020) Glucose Calcium Magnesium Total Bilirubin AST ALT Alkaline Phosphatase Total Protein Albumin Urine Color Urine Clarity Urine pH Cancelled Ur Specific [place] 1.020 Cancelled Urine Protein 30 H Cancelled Urine Ketones Negative Urine Blood Urine Nitrite Urine Bilirubin Urine Urobilinogen Ur Leukocyte Esterase Urine RBC Urine WBC Ur Epithelial Cells Urine Crystals Urine Bacteria Urine Casts Urine Mucus Urine Other Ur Culture Indicated? Urine Glucose 05/29/25 05/29/25 05/29/25 16:45 16:45 16:45 WBC RBC Hgb Hct MCV MCH MCHC RDW Plt Count MPV PT INR Sodium Potassium Chloride Carbon Dioxide Anion Gap BUN Creatinine Est GFR (CKD-EPI 2020) Glucose Calcium Magnesium Total Bilirubin AST ALT Alkaline Phosphatase Total Protein Albumin Urine Color Urine Clarity Urine pH Ur Specific [place] Urine Protein Urine Ketones Cancelled Urine Blood Small H Cancelled Urine Nitrite Negative Cancelled Urine Bilirubin Negative Urine Urobilinogen Ur Leukocyte Esterase Urine RBC Urine WBC Ur Epithelial Cells Urine Crystals Urine Bacteria Urine Casts Urine Mucus Urine Other Ur Culture Indicated? Urine Glucose 05/29/25 05/29/25 05/29/25 16:45 16:45 16:45 WBC RBC Hgb Hct MCV MCH MCHC RDW Plt Count MPV PT INR Sodium Potassium Chloride Carbon Dioxide Anion Gap BUN Creatinine Est GFR (CKD-EPI 2020) Glucose Calcium Magnesium Total Bilirubin AST ALT Alkaline Phosphatase Total Protein Albumin Urine Color Urine Clarity Urine pH Ur Specific [place] Urine Protein Urine Ketones Urine Blood Urine Nitrite Urine Bilirubin Cancelled Urine Urobilinogen 0.2 Cancelled Ur Leukocyte Esterase Negative Cancelled Urine RBC 3-5 H Urine WBC 3-5 Ur Epithelial Cells Rare Urine Crystals Negative Urine Bacteria Rare Urine Casts Negative Urine Mucus Negative Urine Other Moderate Yeast Ur Culture Indicated? No Urine Glucose >=1000 H 05/29/25 05/30/25 16:45 14:30 WBC 3.90 L RBC 3.46 L Hgb 8.1 L Hct 28.4 L MCV 82 MCH 23.4 L MCHC 28.5 L RDW 23.9 H Plt Count 86 L MPV 11.1 H PT 13.6 H INR 1.4 H Sodium 144 Potassium 3.7 Chloride 110 H Carbon Dioxide 28.5 Anion Gap 5.5 BUN 13 Creatinine 1.2 Est GFR (CKD-EPI 2020) 61.90 Glucose 146 H Calcium 8.2 L Magnesium 1.8 Total Bilirubin 1.6 H AST 27 ALT 15 L Alkaline Phosphatase 121 H Total Protein 5.6 L Albumin 2.5 L Urine Color Urine Clarity Urine pH Ur Specific [place] Urine Protein Urine Ketones Urine Blood Urine Nitrite Urine Bilirubin Urine Urobilinogen Ur Leukocyte Esterase Urine RBC Urine WBC Ur Epithelial Cells Urine Crystals Urine Bacteria Urine Casts Urine Mucus Urine Other Ur Culture Indicated? Urine Glucose Cancelled Time Spent with Patient Time Spent with Patient: <25 minutes Time was spent: preparing to see the patient(eg.review tests), referring, communicating with other health farm or ranch animal caretaker, counseling the patient and care coordination
[2025-05-30 20:02] VITALS: BP 151/66; PULSE 71; RESP 17; TEMP 36.6; O2SAT 90
[2025-05-30] MEDS: Prazosin 5 MG CAP 10 MG NG (20:24)
[2025-05-30] MEDS: Melatonin 3 MG TAB 6 MG PO (20:25)
[2025-05-31] VITALS (7 sets, daily range): BP systolic 121–161; BP diastolic 56–71; PULSE 58–67; RESP 16–20; TEMP 36.4–37.1; O2SAT 94–96
[2025-05-31] MEDS: DEXTROSE 5%-0.9% SALINE 1,000 ML 80 ML IV (01:30)
[2025-05-31] MEDS: Chloraseptic Spray 117 ML BTL MM (01:53)
[2025-05-31] MEDS: Levothyroxine 100 MCG TAB NG (05:22)
[2025-05-31] MEDS: Albuterol 2.5 MG/3 ML INH SOLN VIAL UPD (06:25)
[2025-05-31 06:56] LABS: HCT 28.8 % (40.0-50.0); HGB 8.0 g/dL (13.5-17.5); MCHC 27.8 % (32.0-36.0); MCV 82 fL (80-95); RBC 3.53 10^6/uL (4.36-5.78); RDW-SD 71.3 fL; WBC 3.51 10^3/uL (4.4-10.8)
[2025-05-31 07:11] LABS: Prothrombin Time 13.3 sec (9.1-11.1)
[2025-05-31 07:12] LABS: INR 1.3 (0.9-1.1)
[2025-05-31 07:18] LABS: Platelet Count 86 10^3/uL (130-400)
[2025-05-31 07:19] LABS: RDW 24.3 % (11.8-14.1)
[2025-05-31 07:20] LABS: MCH 22.7 pg (27.0-33.0)
[2025-05-31 07:25] LABS: ALT 13 U/L (16-63); AST 36 U/L (15-37); Albumin 2.3 g/dL (3.4-5.0); Anion Gap 6.0 mmol/L (3-11); BUN 12 mg/dL (7-18); Bilirubin, Total 1.6 mg/dL (0.2-1.0); CO2 26.0 mmol/L (21.0-32.0); Calcium 8.0 mg/dL (8.5-10.1); Chloride 112 mmol/L (98-107); Estimated GFR 68.71 (mL/min/1.73m2); Glucose 128 mg/dL (74-106); Magnesium 1.7 mg/dL (1.8-2.4); Potassium 3.6 mmol/L (3.5-5.1); Sodium 144 mmol/L (136-145); Total Protein 5.3 g/dL (6.4-8.2)
[2025-05-31 07:36] LABS: Alkaline Phosphatase 108 U/L (46-116)
--- NOTE | 2025-05-31 09:02 | PDOC.CMPRO ---
Date of service: 05/31/25 Time of Service: 09:02 Care Management Progress Note Progress Note Text Progress Note Text: Merrill was sitting up in bed when CM met with him. He did not appear to be in a very good mood. He stated that his throat hurts and he wants the NG tube removed. His pain is better and his Hgb fairly stable at 8.0. Dr. Rodney saw Merrill and ordered gastrografin, which was administered around 1:30 pm. He will have follow up imaging later this afternoon. Depending on the results, Merrill may be able to have his NG tube removed, which will make him happy. CM called his Cely to update her. Discharge Potential Discharge Needs: Surgical F/U Appt Anticipated Barriers to Discharge: Medical Status Patient/Family Education Needs: Review discharge instructions, discuss Ask Me Three Transportation: RCT Plan: Anticipate Merrill will transfer back to [facility] when he is medically stable. He will follow up with the facility providers and plan of care and transport via RCT coordinated by CM. CM will follow. Social Determinants of Health Screening Will the Patient Participate in the Screening?: Unable to obtain Do you worry about having a steady place to live?: no In the past 12 months, have you had to go without electric, gas, oil or water in your home?: no Has lack of transportation kept you from medical appointments or from doing things needed for daily living?: no Has anyone in your life made you feel unsafe or unsupported?: no How hard is it for you to pay for the very basics like food, housing, medical care, and heating? Would you say it is:: Not hard at all Do you want help finding or keeping work or a job?: I do not need or want help If for any reason you need help with day-to-day activities such as bathing, preparing meals, shopping, managing finances, etc., do you get the help you need?: I don?t need any help How often do you feel lonely or isolated from those around you?: Never Do you speak a language other than [place] at home?: No Does the patient want assistance with any of the above?: No
--- NOTE | 2025-05-31 09:19 | W.PM.PROGNOT ---
Date of Service Date of service: 05/31/25 Time of Service: 09:20 Assessment and Plan Assessment and plan (1) SBO (small bowel obstruction): Status: Acute Assessment and plan: NGT in place to LIS Ongoing surgical consult : Discussion with Dr. Rodney re: Gastrografin challenge today Gastrografin challenge with f/u abdominal XR at 17:00 today (2) GIB (gastrointestinal bleeding): Status: Chronic Assessment and plan: On going IV protonix. As per surgery most likely d/t NGT trauma now to LIS , minimal bleeding today (3) CHF (congestive heart failure): Status: Chronic Assessment and plan: Ongoing home medicine with Lasix, Losartan, Aldactone, Jardiance . Stable last Echo 03/20 LVEF 35% with global hypokinesis; improved from January 2024, with LVEF 25 to 35% Cautious IV hydration while NPO (4) Acute kidney injury: Status: Resolved Assessment and plan: Cr 1.1- baseline no RODOLFO at this time (5) Lower urinary obstructive symptom: Status: Acute Assessment and plan: Ongoing home dose of flomax (6) Anemia of chronic disease: Status: Acute Assessment and plan: stable hgb 8.0 Takes Eliquis in the setting of PAF - now on hold in the setting of GIB - resume in AM if stable CBC in AM (7) Non-insulin dependent type 2 diabetes mellitus: Assessment and plan: Gluc Q 6H with SSI while NPO then AC & HS Holding metformin and resume on discharge BMP in AM Discussed with Dr. Arizmendi Subjective Subjective Patient reports: no new complaints, voiding w/o difficulty, no flatus and other (Feels that if he had Jello- it would be OK); denies tolerating liquids well, tolerating a regular diet, bowel movement, diarrhea, nausea, vomiting, shortness of breath or fever Exam Narrative Exam Narrative: 80 years old male in no acute distress, NGT in place to LIS- minimal blood tinged drainage, Alert and oriented X3, no acute neurological deficit, heart is regular, no murmur, PPPX4, unlabored breathing - clear lungs, abdomen is slightly distended, soft , non-tender, bowel sounds are present, colostomy in place w/o drainage, no CVA tenderness Objective Last Vital Signs Temp 36.5 C 05/31/25 07:22 Pulse 66 05/31/25 07:22 Resp 17 05/31/25 07:22 BP 140/56 L 05/31/25 07:22 Pulse Ox 95 05/31/25 07:22 Laboratory Results - last 24 hr 05/30/25 05/31/25 14:30 06:10 WBC 3.90 L 3.51 L RBC 3.46 L 3.53 L Hgb 8.1 L 8.0 L Hct 28.4 L 28.8 L MCV 82 82 MCH 23.4 L 22.7 L MCHC 28.5 L 27.8 L RDW 23.9 H 24.3 H Plt Count 86 L 86 L MPV 11.1 H PT 13.6 H 13.3 H INR 1.4 H 1.3 H Sodium 144 144 Potassium 3.7 3.6 Chloride 110 H 112 H Carbon Dioxide 28.5 26.0 Anion Gap 5.5 6.0 BUN 13 12 Creatinine 1.2 1.1 Est GFR (CKD-EPI 2020) 61.90 68.71 Glucose 146 H 128 H Calcium 8.2 L 8.0 L Magnesium 1.8 1.7 L Total Bilirubin 1.6 H 1.6 H AST 27 36 ALT 15 L 13 L Alkaline Phosphatase 121 H 108 Total Protein 5.6 L 5.3 L Albumin 2.5 L 2.3 L Time Spent with Patient Time Spent with Patient: >50 minutes Time was spent: preparing to see the patient(eg.review tests), obtaining and/or reviewing separately otained hiistory, ordering medications,tests, procedures, referring, communicating with other health behavioral health care manager, indepentently interpreting results, counseling the patient and care coordination
[2025-05-31] MEDS: Spironolactone 25 MG TAB 12.5 MG NG (09:23)
[2025-05-31] MEDS: Ferrous Sulfate 325 MG TAB NG (09:24)
[2025-05-31] MEDS: Rifaximin 550 MG TAB NG ×2 (09:24→21:21)
[2025-05-31] MEDS: Losartan 50 MG TAB NG ×2 (09:24→21:21)
[2025-05-31] MEDS: Empaglifozin 25 MG TAB NG (09:25)
[2025-05-31] MEDS: Furosemide 20 MG/2 ML VIAL IVP (09:25)
[2025-05-31] MEDS: Normal Saline Flush 10 ML SYR IVP ×2 (09:26→21:24)
[2025-05-31] MEDS: DEXTROSE 5%-LACTATED RINGERS 1,000 ML 80 ML IV ×2 (10:09→23:52)
[2025-05-31] MEDS: MAGNESIUM SULFATE 2 GM/50 ML BAG IV_INF (10:10)
[2025-05-31] MEDS: Gastrografin 120 ML BTL PO (13:28)
--- NOTE | 2025-05-31 17:29 | DI.RAD_ITS ---
Exam(s) XR ABDOMEN FLAT PLATE EXAM: XR ABDOMEN FLAT PLATE CLINICAL HISTORY: SBO, gastrografin study. TECHNIQUE: 2D digital imaging was performed. COMPARISON: CR XR ABDOMEN FLAT PLATE from 02/28/[address] ABDOMEN PELVIS W from 05/28/2025 FINDINGS: AP supine view of the abdomen-pelvis: The distal tip of the NG tube is in the stomach. A TIPS shunt is evident in the right upper quadrant Almost all of the administered oral contrast is in the:. There are no distended small bowel loops evident on the present image. Some nondilated small bowel loops are noted in the right iliac fossa, and indeed these were the nondilated distal small bowel loops which were evident in the right-side of the abdomen on the recent CT scan of 05/28/2025. The oral contrast in the colon is evident from the right-side ileocolic anastomosis across the entire transverse colon and down the left side of the colon to the level of the left colostomy. IMPRESSION: As above. The majority of the administered oral contrast is in the colon, this indicating that there is no high-grade small-bowel obstruction at this time. The significantly dilated central small bowel loops described on the recent CT scan of 3 days ago appear less dilated on this single AP supine view the abdomen. DATA REPOSITORY: RADIATION DOSE DELIVERED:
[2025-05-31] MEDS: Furosemide 20 MG/2 ML VIAL 10 MG IVP (17:44)
--- NOTE | 2025-05-31 17:53 | PGE_ITS ---
Date of Service Date of service: 05/31/25 Time of Service: 11:00 Assessment and Plan Assessment and plan (1) SBO (small bowel obstruction): Status: Acute Assessment and plan: Subjectively the patient this has improved. Will repeat Gastrografin study today. (2) GIB (gastrointestinal bleeding): Status: Chronic Assessment and plan: Output from the NG tube has been 600 yesterday. About 100 today. There is some blood-tinged fluid within the canister. Suspect gastric irritation, patient also anticoagulated. Hemoglobin is unchanged today, 8.0 from 8.3 on admission. He is thrombocytopenic. (3) CHF (congestive heart failure): Status: Chronic Assessment and plan: Patient is receiving apixaban, did have some blood from the NG tube. Subjective Subjective Interval history since last seen: Mr. Orellana today reporting decrease in his abdominal pain, when he was admitted to the hospital on 05/29/2025, he had significant abdominal pain and associated abdominal distention. He reports that this has completely resolved, and he would like his NG tube removed. He has a colostomy bag that has been present for 4 decades now. He reports that he has not yet begun to pass gas nor stool through the colostomy bag. Exam Narrative Exam Narrative: Patient is a pleasant adult male, he is awake and alert, in minimal discomfort today. He is obese, he is using a nasal oxygen cannula, at 2 L. His vital signs show some hypertension. On examination today, he does have some crackles at the lung bases. His cardiac exam is regular rate, but with an occasional missed or skipped beat (he does have a history of atrial fibrillation). He is abdomen has a generous midline laparotomy scar that is well-healed from the remote past. He also has a right sided [place] incision from appendectomy. His colostomy is well pouched, there is some hypertrophic granular changes on the colostomy mucosa. The abdomen has normal active bowel sounds. The abdomen is soft and nontender. Does not appear distended. Objective Last Vital Signs Temp 36.7 C 05/31/25 11:20 Pulse 67 05/31/25 11:20 Resp 16 05/31/25 11:20 BP 161/68 H 05/31/25 11:20 Pulse Ox 95 05/31/25 08:30 Laboratory Results - last 24 hr 05/31/25 06:10 WBC 3.51 L RBC 3.53 L Hgb 8.0 L Hct 28.8 L MCV 82 MCH 22.7 L MCHC 27.8 L RDW 24.3 H Plt Count 86 L MPV PT 13.3 H INR 1.3 H Sodium 144 Potassium 3.6 Chloride 112 H Carbon Dioxide 26.0 Anion Gap 6.0 BUN 12 Creatinine 1.1 Est GFR (CKD-EPI 2020) 68.71 Glucose 128 H Calcium 8.0 L Magnesium 1.7 L Total Bilirubin 1.6 H AST 36 ALT 13 L Alkaline Phosphatase 108 Total Protein 5.3 L Albumin 2.3 L Time Spent with Patient Time Spent with Patient: 25-34 minutes Time was spent: preparing to see the patient(eg.review tests) and obtaining and/or reviewing separately [facility] [facility]
--- NOTE | 2025-05-31 18:04 | W.PM.PROGNOT ---
Date of Service Date of service: 05/31/25 Time of Service: 18:04 Assessment and Plan Assessment and plan (1) SBO (small bowel obstruction): Status: Acute Assessment and plan: Appears improved from radiograph today. Will DC NG tube and put him on clear liquid diet. Subjective Subjective Interval history since last seen: Reviewed patient's recent KUB. This shows transit of contrast into the colon, and resolution of previously visualized small bowel obstruction. Objective Last Vital Signs Temp 36.7 C 05/31/25 11:20 Pulse 67 05/31/25 11:20 Resp 16 05/31/25 11:20 BP 161/68 H 05/31/25 11:20 Pulse Ox 95 05/31/25 08:30 Laboratory Results - last 24 hr 05/31/25 06:10 WBC 3.51 L RBC 3.53 L Hgb 8.0 L Hct 28.8 L MCV 82 MCH 22.7 L MCHC 27.8 L RDW 24.3 H Plt Count 86 L MPV PT 13.3 H INR 1.3 H Sodium 144 Potassium 3.6 Chloride 112 H Carbon Dioxide 26.0 Anion Gap 6.0 BUN 12 Creatinine 1.1 Est GFR (CKD-EPI 2020) 68.71 Glucose 128 H Calcium 8.0 L Magnesium 1.7 L Total Bilirubin 1.6 H AST 36 ALT 13 L Alkaline Phosphatase 108 Total Protein 5.3 L Albumin 2.3 L Time Spent with Patient Time Spent with Patient: <25 minutes Time was spent: preparing to see the patient(eg.review tests)
[2025-05-31] MEDS: Diclofenac 1% Gel 100 GM TUBE TP (21:21)
[2025-05-31] MEDS: Prazosin 5 MG CAP 10 MG NG (21:22)
[2025-05-31] MEDS: Melatonin 3 MG TAB 6 MG PO (21:22)
[2025-06-01] MEDS: Levothyroxine 100 MCG TAB NG (05:48)
[2025-06-01 07:13] VITALS: BP 129/68; PULSE 67; RESP 14; TEMP 36.4; O2SAT 95
--- NOTE | 2025-06-01 08:00 | DI.RAD_ITS ---
Exam(s) XR ABDOMEN FLAT PLATE EXAM: 2D digital imaging was performed. CLINICAL HISTORY: SBO. COMPARISON: CR XR ABDOMEN FLAT PLATE from 05/31/2025 CT scan of the abdomen and pelvis from 05/28/2025 TECHNIQUE: Supine views of the abdomen was performed. Three images were obtained. FINDINGS: LUNG BASES: There are small bilateral pleural effusions. BOWEL GAS PATTERN: Nondistended. The oral contrast is seen in the mid and distal colon. There is a left colostomy in place. FREE AIR: None. CALCIFICATIONS: Atherosclerotic calcification is present. OSSEOUS STRUCTURES: Normal for age. Degenerative changes are seen in the spine in the hips bilaterally. OTHER FINDINGS: There is a TIPS in place. Surgical clips are seen in the abdomen and pelvis. IMPRESSION: 1. There is no evidence of bowel obstruction. 2. Small bilateral pleural effusions. DATA REPOSITORY: RADIATION DOSE DELIVERED:
--- NOTE | 2025-06-01 09:15 | W.PM.PROGNOT ---
Date of Service Date of service: 06/01/25 Time of Service: 09:15 Assessment and Plan Assessment and plan (1) SBO (small bowel obstruction): Status: Acute Assessment and plan: NGT discontinued Ongoing surgical consult : Discussion with Dr. Rodney re: Gastrografin challenge today Gastrografin challenge with f/u abdominal XR on 05/31 improving SBO- clear liquid initiated on 05/31 PM - now on full liquid XR 06/01 shows no furhter evidence of SBO If regular diet tolerated with + ostomy output - will discharge this PM (2) GIB (gastrointestinal bleeding): Status: Chronic Assessment and plan: On going IV protonix. As per surgery most likely d/t NGT trauma now to LIS , minimal bleeding today (3) CHF (congestive heart failure): Status: Chronic Assessment and plan: Ongoing home medicine with Lasix, Losartan, Aldactone, Jardiance . Stable last Echo 03/20 LVEF 35% with global hypokinesis; improved from January 2024, with LVEF 25 to 35% Cautious IV hydration while NPO (4) Acute kidney injury: Status: Resolved Assessment and plan: Cr 1.1- baseline no RODOLFO at this time (5) Lower urinary obstructive symptom: Status: Acute Assessment and plan: Ongoing home dose of flomax (6) Anemia of chronic disease: Status: Acute Assessment and plan: stable hgb 8.0 Takes Eliquis in the setting of PAF - now on hold in the setting of GIB - resume in AM if stable CBC in AM (7) Non-insulin dependent type 2 diabetes mellitus: Assessment and plan: Gluc Q 6H with SSI while NPO then AC & HS Holding metformin and resume on discharge BMP in AM Discussed with Dr. Arizmendi Objective Last Vital Signs Temp 36.4 C L 06/01/25 07:13 Pulse 67 06/01/25 07:13 Resp 14 06/01/25 07:13 BP 129/68 06/01/25 07:13 Pulse Ox 95 06/01/25 07:13
--- NOTE | 2025-06-01 09:24 | PDOC.CMPRO ---
Date of service: 06/01/25 Time of Service: 09:24 Care Management Progress Note Discharge Potential Discharge Needs: Other (SNF) Anticipated Barriers to Discharge: None Identified Patient/Family Education Needs: Review discharge instructions, discuss Ask Me Three Transportation: RCT Plan: Anticipate Merrill will transfer back to [facility] when he is medically stable. He will follow up with the facility providers and plan of care and transport via RCT coordinated by CM. CM will follow. Social Determinants of Health Screening Will the Patient Participate in the Screening?: Unable to obtain Do you worry about having a steady place to live?: no In the past 12 months, have you had to go without electric, gas, oil or water in your home?: no Has lack of transportation kept you from medical appointments or from doing things needed for daily living?: no Has anyone in your life made you feel unsafe or unsupported?: no How hard is it for you to pay for the very basics like food, housing, medical care, and heating? Would you say it is:: Not hard at all Do you want help finding or keeping work or a job?: I do not need or want help If for any reason you need help with day-to-day activities such as bathing, preparing meals, shopping, managing finances, etc., do you get the help you need?: I don?t need any help How often do you feel lonely or isolated from those around you?: Never Do you speak a language other than Sammarinese at home?: No Does the patient want assistance with any of the above?: No
[2025-06-01 09:35] LABS: Abs Immature Grans 0.01 10^3/uL (0.0-0.06); HCT 29.4 % (40.0-50.0); HGB 8.4 g/dL (13.5-17.5); Immature Grans % 0.3 %; MCH 23.7 pg (27.0-33.0); MCHC 28.6 % (32.0-36.0); MCV 83 fL (80-95); MPV 9.9 fL (8.0-11.0); RBC 3.55 10^6/uL (4.36-5.78); RDW 24.7 % (11.8-14.1); RDW-SD 72.5 fL; WBC 3.37 10^3/uL (4.4-10.8)
[2025-06-01 09:43] LABS: Anion Gap 5.7 mmol/L (3-11); BUN 10 mg/dL (7-18); CO2 28.3 mmol/L (21.0-32.0); Calcium 8.2 mg/dL (8.5-10.1); Chloride 110 mmol/L (98-107); Estimated GFR 68.71 (mL/min/1.73m2); Glucose 169 mg/dL (74-106); Magnesium 1.8 mg/dL (1.8-2.4); Potassium 3.3 mmol/L (3.5-5.1); Sodium 144 mmol/L (136-145)
[2025-06-01 09:47] LABS: Platelet Count 92 10^3/uL (130-400)
[2025-06-01 09:48] LABS: Anisocytosis 1+
[2025-06-01] MEDS: Furosemide 20 MG/2 ML VIAL IVP (10:04)
[2025-06-01] MEDS: Pantoprazole 40 MG VIAL IVP (10:04)
[2025-06-01] MEDS: Spironolactone 25 MG TAB 12.5 MG NG (10:05)
[2025-06-01] MEDS: Losartan 50 MG TAB NG (10:05)
[2025-06-01] MEDS: Rifaximin 550 MG TAB NG (10:05)
[2025-06-01] MEDS: Normal Saline Flush 10 ML SYR IVP (10:06)
[2025-06-01] MEDS: Empaglifozin 25 MG TAB NG (10:06)
[2025-06-01] MEDS: Ferrous Sulfate 325 MG TAB NG (10:06)
--- NOTE | 2025-06-01 10:24 | CMDISCH_ITS ---
Date of service: 06/01/25 Time of Service: 10:24 LACE Index Scoring Tool Questions: Length of Stay (in days): 3 Was the patient admitted via the E.D.?: Yes Comorbidities: Previous M.I., Diabetes w/o Complication, Congestive Heart Failure, Any Tumor and Liver or Renal Disease E.D. Visits: 9 Answers: Total Score: 15 Risk of Readmission: High Risk Care Management Discharge Plan Reason for Hospitalization: SBO Discharge Plan: Merrill will transfer back to [facility]. He will follow up with the facility providers and plan of care and transport via RCT coordinated by CM. Patient/Family Education Needs: Review discharge instructions, discuss Ask Me Three Services Needed at Discharge: [facility] Facility and Transportation SDOH Health Related Social Needs: Health related social needs transpo insecurity Health related social needs details sometimes has trou ble getting a ride to places - has to wait on son to be available
--- NOTE | 2025-06-01 10:48 | W.PM.DS.N ---
Date of service: 06/01/25 Time of Service: 10:48 DS: Diagnosis Discharge Diagnosis (1) SBO (small bowel obstruction): Status: Acute (2) GIB (gastrointestinal bleeding): Status: Chronic (3) CHF (congestive heart failure): Status: Chronic (4) Acute kidney injury: Status: Resolved (5) Lower urinary obstructive symptom: Status: Acute (6) Anemia of chronic disease: Status: Acute (7) Non-insulin dependent type 2 diabetes mellitus: Discharge Plan Disposition Patient Disposition: [facility] Facility(SNF) Condition: Improving Discharge Details Reason For Visit: Small bowel obstruction Admit Date/Time: 05/29/25 01:07 Admit Provider: Phoenix Jim Attending Provider: Phoenix Jim Primary Care Provider: Maryann Whitt Hospital Course Hospital Course: This 79-year-old male patient with a past medical history of atrial fibrillation on Eliquis and Coreg, HFrEF with an LVEF of 35 % on 03/01/2025, insulin-dependent diabetes mellitus, obstructive sleep apnea, coronary artery disease, chronic kidney disease, cirrhosis with recurrent episodes of hepatic encephalopathy on chronic lactulose, remote colorectal cancer in remission with ostomy over the last 40 years presented to [facility] fpr evaluation of abdominal distention nausea w/o vomiting , decreased ostomy output with concerns for obstruction and depression and suicidal ideation. Workup in the ED was positive for evidence of SBO on CT imaging with subsequent NGT placement. [facility] team recommendation was to keep the patient at [facility]. The patient was admitted to the medical surgical floor for SBO and ongoing medical management and surgical consultation. Surgery recommended agoinst surgical intervention and deemed franc red blood finding in GI content d/t traumatic NGT insertion- which later resolved. The patient was cleared s/p mental iliana consultation with recommendation for PCP/Office visits and Community resources. Mild anemia remained stable with Hbg at 8.4 furhter blood work refused; the patient will resume Eliquis upon discharge. IVP furosemide given for small bilateral pleural effusion seen on imaging. Resolution of SBO confirmed by XR s/p gastrografin challenge ,NGT discontinued and diet advanced by Dr Rodney from surgery. Further imaging showed no SBO. The patient tolerated enteral intake and has an adequate ostomy output and will be discharged back to [facility]. Advised not to refuse his medicines at the [place] [facility] -including his lactulose. Follow-up with outpatient provider within 7 days of discharge please. Home Meds and New Rx's Prescriptions: Continued pantoprazole 40 mg Tablet,Delayed Release (Dr/Ec) 40 mg PO DAILY Eliquis 5 mg Tablet 5 mg PO BID Patient Comments: taking per pt nitroglycerin 0.4 mg Tablet, Sublingual 0.4 mg sublingual Q5 MIN PRN X3 PRNQty: 30 0RF rifaximin 550 mg Tablet 550 mg PO BID prazosin 5 mg capsule 10 mg PO QPM tamsulosin 0.4 mg Capsule 0.4 mg PO DAILY metformin 500 mg tablet extended release 24hr 1,000 mg PO BID bisacodyl [Dulcolax (bisacodyl)] 10 mg suppository 10 mg [place] DAILY PRN ondansetron 4 mg tablet,disintegrating 4 mg PO Q6H PRN potassium chloride 20 mEq tablet extended release 20 meq PO DAILY spironolactone [Aldactone] 25 mg tablet 12.5 mg PO DAILY venlafaxine [Effexor XR] 75 mg capsule,extended release 24hr 75 mg PO DAILY Patient Comments: takes w/150mg capsule for total dose of 225mg daily lactulose 20 gram/30 mL Solution 15 ml PO TID Rx Instructions: to maintain colostomy output of 3-4 bags per day diclofenac sodium [Arthritis Pain (diclofenac)] 1 % gel 2 g topical TID Rx Instructions: apply to single elbow, wrist or hand; for hand includes palm/fingers/back of hand melatonin 3 mg tablet 6 mg PO HS Patient Comments: TAKE ONE TABLET BY MOUTH AT BEDTIME ferrous sulfate 325 mg (65 mg iron) Tablet 325 mg PO DAILY Qty: 0 0RF empagliflozin 25 mg Tablet 25 mg PO DAILY levothyroxine 200 mcg Tablet 100 mcg PO QAM Qty: 0 0RF venlafaxine 150 mg capsule,extended release 24hr 150 mg PO DAILY acetaminophen [Tylenol] 325 mg Capsule 650 mg PO Q6H MDD 3000 PRN losartan [Cozaar] 50 mg tablet 50 mg PO BID furosemide [Lasix] 40 mg tablet See Rx Instructions .ROUTE .COMPLEX Qty: 60 0RF Rx Instructions: 40 mg every morning and 20 mg early afternoon Discharge Instructions Stand Alone Forms: Nursing Discharge Form Referrals: Maryann Whitt [Primary Care Provider, Medicine] Referral Note: Follow-up within 7 days of discharge 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 Equipment/Supplies:: As per 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 Diet:: heart healthy diabetic Discharge Orders Discharge Orders: Discharge Order (Routine); Ordered 06/01/25 Ordered By: Evi Valenzuela DS: Summary Time Spent with Patient providing and/or coordinating discharge services: Greater than 30 minutes Status at Discharge Functional status at discharge: uses cane/walker Overall status at discharge: patient is progressing back to baseline Mental Status: mental status grossly normal Speech and Movement: speech and movement normal Mood: congruent mood Affect: normal affect Quality:SDOH Health Related Social Needs: Health related social needs transpo insecurity Health related social needs details sometimes has trouble getting a ride to places - has to wait on son to be available Exam Narrative Exam Narrative: 80 years old male in no acute distress,, alert and oriented X3, no acute neurological deficit, heart is regular, no murmur, PPPX4, unlabored breathing - clear lungs s/p cough and deep breathing, fine crackles to R base, abdomen is slightly distended, soft , non-tender, bowel sounds are present, colostomy in place and patent Psych Mental Status: mental status grossly normal Speech and Movement: speech and movement normal Mood: congruent mood Affect: normal affect DS: Data Vitals/I&O Vitals and I&O: Vital Signs Temperature 36.4 C L 06/01/25 07:13 Temperature Source Temporal Artery Scan 06/01/25 07:13 Pulse 67 06/01/25 07:13 Pulse Rhythm Regular 05/29/25 02:04 Pulse 73 05/29/25 01:10 Respiratory Rate 14 06/01/25 07:13 Respiratory Effort Normal 05/29/25 02:04 Respiratory Depth Normal 05/29/25 02:04 Respiratory Pattern Normal 05/29/25 02:04 Blood Pressure 129/68 06/01/25 07:13 Blood Pressure Mean 88 06/01/25 07:13 Pulse Oximetry 95 06/01/25 07:13 Oxygen Delivery Method Room Air 06/01/25 07:13 Oxygen Flow Rate 0 06/01/25 07:13 Pain Level 1 05/31/25 08:30 Comment pt refused vitals 06/01/25 03:29 Comment 2L 05/28/25 21:50 Intake & Output 05/31/25 05/31/25 06/01/25 11:59 23:59 11:59 Intake Total 834.667 / 2824.667 1989 2824. Output Total 525 / 2850 1925 / 2850 400 / 400 Balance 309.667 / -25.333 65 / -25.333 -400 / -400 Weight 101.2 kg 102.2 kg Intake: IV 834.667 / 2824.667 1989 2824.66 Output: Gastric Drainage 100 / 150 50 / 150 Right Nare 100 / 150 50 / 150 Urine 425 / 2100 1275 / 2100 400 / 400 Stool 600 / 600 Other: Urine Color Yellow Yellow Light Mady Urine Appearance Clear Clear Clear Urine Odor None Normal Strong Stool Size Small Stool Characteristics Soft Liquid Data Completed and Pending Labs on day of discharge: Labs from last 24 hours 06/01/25 09:20 WBC 3.37 L RBC 3.55 L Hgb 8.4 L Hct 29.4 L MCV 83 MCH 23.7 L MCHC 28.6 L RDW 24.7 H Plt Count 92 L MPV 9.9 Immature Gran % 0.3 Neutrophils % 72.4 Lymphocytes % 11.6 Monocytes % 7.7 Eosinophils % 7.7 Basophils % 0.3 Nucleated RBC % 0.0 Absolute Neutrophils 2.44 Absolute Lymphocytes 0.39 L Absolute Monocytes 0.26 Absolute Eosinophils 0.26 Absolute Basophils 0.01 RBC Morphology See Below Anisocytosis 1+ Sodium 144 Potassium 3.3 L Chloride 110 H Carbon Dioxide 28.3 Anion Gap 5.7 BUN 10 Creatinine 1.1 Est GFR (CKD-EPI 2020) 68.71 Glucose 169 H Calcium 8.2 L Magnesium 1.8 PFSH All Active Problems (Updated 05/31/25 @ 18:00 by Daniel Rodney MD) GIB (gastrointestinal bleeding) (Chronic) Hypothyroidism (acquired) (Chronic) SBO (small bowel obstruction) (Acute) Depression (Chronic) SBO (small bowel obstruction) (Acute) Anemia (Chronic) History of creation of ostomy (Acute) Contusion (Acute) Liver mass (Acute) Vomiting (Acute) Abdominal pain (Acute) Elevated lactic acid level (Acute) Acute UTI (Acute) Symptomatic bradycardia (Acute) Acute hypokalemia (Acute) Family conflict (Acute) Chest pain in adult (Acute) Fall (Acute) Chronic low back pain (Chronic) Hematuria (Acute) Leukopenia (Acute) Oral candidiasis (Acute) Sepsis syndrome (Acute) Gram-negative bacteremia (Acute) Cellulitis (Acute) Lower urinary obstructive symptom (Acute) Anemia of chronic disease (Acute) Ventricular ectopy (Acute) Sinus bradycardia (Acute) Leukocytosis (Acute) Hypertension (Chronic) Elevated lactic acid level (Acute) CHF (congestive heart failure) (Chronic) No-show for appointment (Acute) Left rotator cuff tear (Acute) Acute UTI (urinary tract infection) (Acute) Weakness (Acute) Non-ST elevation VA (NSTEMI) (Acute) Pre-syncope (Acute) Frequent falls (Acute) Orthostatic hypotension (Acute) Hypokalemia (Acute) Bradycardia (Acute) Multiple falls (Acute) Acute metabolic encephalopathy (Acute) Medication monitoring encounter (Acute) Chest pain (Acute) CHF (congestive heart failure) (Chronic) EF 25%- 2023 Medical History Chronic GERD BPH (benign prostatic hyperplasia) Major depression, recurrent, chronic Severe obesity (BMI >= 40) Diabetes mellitus treated with oral medication Anemia associated with acute blood loss Acute on chronic HFrEF (heart failure with reduced ejection fraction) Anemia Splenomegaly Thrombocytopenia Colostomy care Thrombocytopenia Chronic atrial fibrillation Type 2 diabetes mellitus CHF exacerbation ANETTE (obstructive sleep apnea) Chronic heart failure with reduced ejection fraction (HFrEF, <= 40%) Anemia Cirrhosis of liver without ascites Diabetes PAF (paroxysmal atrial fibrillation) Goals of care, counseling/discussion Lactic acidosis UTI (urinary tract infection) Urinary tract infection Advanced care planning/counseling discussion Palliative care encounter Followed by [facility] Bowel obstruction Sepsis Heart failure with reduced ejection fraction Hypothyroidism Small bowel obstruction Lactic acid acidosis Creatinine elevation Acute UTI Anticoagulated COVID Recurrent intestinal obstruction History of colon cancer Chronic anticoagulation Portal hypertension Cirrhosis TIPs placed (?when, [facility] [place]? 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, Dx [facility] as per pt Non-insulin dependent type 2 diabetes mellitus Incontinence Hypertension Scleral icterus Surgical History S/P TIPS (transjugular intrahepatic portosystemic shunt) H/O left hemicolectomy Colostomy in place Social History Smoking/Tobacco Use Status: Former Tobacco Use Smoking risk assessment performed?: Yes Alcohol Intake: former Drug use: Never Substance use type: does not use Housing: [facility] Do you feel safe at home: Yes Do you feel safe in your relationship?: Yes Additional Social history: from [facility] Time Spent with Patient Time Spent with Patient: >85 minutes Time was spent: preparing to see the patient(eg.review tests), obtaining and/or reviewing separately otained hiistory, ordering medications,tests, procedures, referring, communicating with other health in home caregiver, indepentently interpreting results, counseling the patient and care coordination
== END 2025-06-01 12:45 | disposition skilled nursing facility (03) | DRG 389 ==
LOC: ER 05-29 01:14 → MS 05-29 01:30
PROVIDERS: Admitting Provider Family Medicine; Emergency Provider Emergency Medicine; PCP Nurse Practitioner Adult Health; Responsible Provider Nurse Practitioner Acute Care; Visit Provider Family Medicine
DX: K56.609 Unspecified intestinal obstruction, unspecified as to partial versus complete obstruction (principal); E87.20 Acidosis, unspecified; F33.2 Major depressive disorder, recurrent severe without psychotic features; I50.22 Chronic systolic (congestive) heart failure; R45.851 Suicidal ideations; K76.6 Portal hypertension; N17.9 Acute kidney failure, unspecified; N13.8 Other obstructive and reflux uropathy; K92.2 Gastrointestinal hemorrhage, unspecified; E11.22 Type 2 diabetes mellitus with diabetic chronic kidney disease; N18.2 Chronic kidney disease, stage 2 (mild); I48.0 Paroxysmal atrial fibrillation; D63.8 Anemia in other chronic diseases classified elsewhere; G47.33 Obstructive sleep apnea (adult) (pediatric); E03.9 Hypothyroidism, unspecified; Z79.01 Long term (current) use of anticoagulants; Z90.49 Acquired absence of other specified parts of digestive tract; D69.59 Other secondary thrombocytopenia; K70.30 Alcoholic cirrhosis of liver without ascites; Z93.3 Colostomy status; E87.6 Hypokalemia; R00.1 Bradycardia, unspecified; I25.2 Old myocardial infarction; K21.9 Gastro-esophageal reflux disease without esophagitis; R29.6 Repeated falls; N40.0 Benign prostatic hyperplasia without lower urinary tract symptoms; E66.9 Obesity, unspecified; Z85.038 Personal history of other malignant neoplasm of large intestine; Z68.36 Body mass index [BMI] 36.0-36.9, adult; Z79.84 Long term (current) use of oral hypoglycemic drugs; Z59.82 Transportation insecurity
CPT/HCPCS: 00123; 36415; 71045; 80048; 80053; 83690; 85027; 87637; 96127; 96365; 96375; 99285; 74018; 74177; 81003; 81015; 83735; 83880; 84439; 84443; 85025; 85610; 99223; 99232; 99233; 99239; J0131; J1171; J1815; J1938; J2405; J2470; J3475; J3490; J7042; J7613

== ENCOUNTER 2025-06-04 02:12 | Inpatient (IN) | payer OTHER, SELFPAY ==
[2025-06-04] VITALS (61 sets, daily range): BP systolic 144–176; BP diastolic 61–80; PULSE 64–94; RESP 16–18; TEMP 36.7–37.2; O2SAT 85–97
[2025-06-04 02:27] LABS: Abs Immature Grans 0.02 10^3/uL (0.0-0.06); HCT 33.1 % (40.0-50.0); HGB 9.8 g/dL (13.5-17.5); Immature Grans % 0.4 %; MCH 23.7 pg (27.0-33.0); MCHC 29.6 % (32.0-36.0); MCV 80 fL (80-95); MPV 10.1 fL (8.0-11.0); Platelet Count 129 10^3/uL (130-400); RBC 4.13 10^6/uL (4.36-5.78); RDW 25.2 % (11.8-14.1); RDW-SD 71.1 fL; WBC 5.22 10^3/uL (4.4-10.8)
[2025-06-04] MEDS: Ondansetron 4 MG/2 ML VIAL IVP (02:31)
[2025-06-04 02:39] LABS: Anisocytosis 1+
[2025-06-04 02:49] LABS: ALT 15 U/L (16-63); AST 26 U/L (15-37); Albumin 2.7 g/dL (3.4-5.0); Alkaline Phosphatase 114 U/L (46-116); Anion Gap 8.8 mmol/L (3-11); BUN 13 mg/dL (7-18); Bilirubin, Total 2.0 mg/dL (0.2-1.0); CO2 28.2 mmol/L (21.0-32.0); Calcium 8.5 mg/dL (8.5-10.1); Chloride 107 mmol/L (98-107); Estimated GFR 68.71 (mL/min/1.73m2); Glucose 97 mg/dL (74-106); Potassium 3.5 mmol/L (3.5-5.1); Sodium 144 mmol/L (136-145); Total Protein 6.2 g/dL (6.4-8.2)
[2025-06-04] MEDS: Gastrografin 120 ML BTL PO (03:02)
--- NOTE | 2025-06-04 04:18 | W.ED.GENAD ---
Discharge Plan Disposition Patient Disposition: Admit to [facility] Condition: Good Discharge Details Clinical Impression: Small bowel obstruction Primary Care Provider: Maryann Whitt ED Provider: Js Johns Home Meds and New Rx's Prescriptions: No Action pantoprazole 40 mg Tablet,Delayed Release (Dr/Ec) 40 mg PO DAILY Eliquis 5 mg Tablet 5 mg PO BID Patient Comments: taking per pt nitroglycerin 0.4 mg Tablet, Sublingual 0.4 mg sublingual Q5 MIN PRN X3 PRNQty: 30 0RF rifaximin 550 mg Tablet 550 mg PO BID prazosin 5 mg capsule 10 mg PO QPM tamsulosin 0.4 mg Capsule 0.4 mg PO DAILY metformin 500 mg tablet extended release 24hr 1,000 mg PO BID bisacodyl [Dulcolax (bisacodyl)] 10 mg suppository 10 mg FL DAILY PRN ondansetron 4 mg tablet,disintegrating 4 mg PO Q6H PRN potassium chloride 20 mEq tablet extended release 20 meq PO DAILY spironolactone [Aldactone] 25 mg tablet 12.5 mg PO DAILY venlafaxine [Effexor XR] 75 mg capsule,extended release 24hr 75 mg PO DAILY Patient Comments: takes w/150mg capsule for total dose of 225mg daily lactulose 20 gram/30 mL Solution 15 ml PO TID Rx Instructions: to maintain colostomy output of 3-4 bags per day diclofenac sodium [Arthritis Pain (diclofenac)] 1 % gel 2 g topical TID Rx Instructions: apply to single elbow, wrist or hand; for hand includes palm/fingers/back of hand melatonin 3 mg tablet 6 mg PO HS Patient Comments: TAKE ONE TABLET BY MOUTH AT BEDTIME ferrous sulfate 325 mg (65 mg iron) Tablet 325 mg PO DAILY Qty: 0 0RF empagliflozin 25 mg Tablet 25 mg PO DAILY levothyroxine 200 mcg Tablet 100 mcg PO QAM Qty: 0 0RF venlafaxine 150 mg capsule,extended release 24hr 150 mg PO DAILY acetaminophen [Tylenol] 325 mg Capsule 650 mg PO Q6H MDD 3000 PRN losartan [Cozaar] 50 mg tablet 50 mg PO BID furosemide [Lasix] 40 mg tablet See Rx Instructions .ROUTE .COMPLEX Qty: 60 0RF Rx Instructions: 40 mg every morning and 20 mg early afternoon diclofenac sodium [Arthritis Pain (diclofenac)] 1 % gel 2 g topical TID Rx Instructions: apply to single elbow, wrist or hand; for hand includes palm/fingers/back of hand zinc oxide 10 % cream 1 applic topical BID HPI General Date/Time Provider Initiated Documentation: 06/04/25 04:18. HPI Narrative: This 80-year-old male patient with a past medical history of atrial fibrillation on Eliquis and Coreg, HFrEF with an LVEF of 24% on 02/14/2024, insulin-dependent diabetes mellitus, obstructive sleep apnea, coronary artery disease, chronic kidney disease, cirrhosis with recurrent episode of hepatic encephalopathy prior hemicolectomy and TIPS procedure, current colostomy, multiple prior episodes of small bowel obstruction in the past, likely secondary to an adhesion, who was recently admitted on 05/29/2025 for small bowel obstruction. He also has mild depression. All symptoms resolved during his stay and he was discharged on 06/01/2025. [facility] about [facility], and then today on 06/03 he began having mild abdominal pain again, he had 1 episode of vomiting, and no ostomy output. The last time he changed his bag was about 24 hours ago. He denies fever or chills. No other complaints. No blood in his ostomy. He states symptoms feel similar to previous obstructions. Related Data Home Medications ?Medication ?Instructions ?Recorded ?Confirmed apixaban 5 mg tablet (Eliquis) 5 mg PO BID 11/08/22 06/04/25 pantoprazole 40 mg tablet,delayed 40 mg PO DAILY 11/08/22 06/04/25 release nitroglycerin 0.4 mg sublingual 0.4 mg sublingual Q5 MIN PRN X3 02/10/23 06/04/25 tablet PRN #30 tabs empagliflozin 25 mg tablet 25 mg PO DAILY 04/09/23 06/04/25 levothyroxine 200 mcg tablet 100 mcg (1/2 x 200 mcg) PO QAM #0 04/10/23 06/04/25 tabs rifaximin 550 mg tablet 550 mg PO BID 07/07/23 06/04/25 venlafaxine 150 mg 150 mg PO DAILY 03/05/24 06/04/25 capsule,extended release 24 hr acetaminophen 325 mg capsule 650 mg PO Q6H PRN 05/12/24 06/04/25 (Tylenol) prazosin 5 mg capsule 10 mg PO QPM 08/04/24 06/04/25 tamsulosin 0.4 mg capsule 0.4 mg PO DAILY 08/04/24 06/04/25 metformin 500 mg tablet,extended 1,000 mg PO BID 01/17/25 06/04/25 release 24hr (osmotic) bisacodyl 10 mg rectal suppository 10 mg FL DAILY PRN 02/26/25 06/04/25 (Dulcolax (bisacodyl)) lactulose 20 gram/30 mL oral 15 ml PO TID 02/26/25 06/04/25 solution ondansetron 4 mg disintegrating 4 mg PO Q6H PRN 02/26/25 06/04/25 tablet potassium chloride 20 mEq 20 meq PO DAILY 02/26/25 06/04/25 tablet,extended release spironolactone 25 mg tablet 12.5 mg PO DAILY 02/26/25 06/04/25 (Aldactone) venlafaxine 75 mg capsule,extended 75 mg PO DAILY 02/26/25 06/04/25 release 24 hr (Effexor XR) diclofenac sodium 1 % topical gel 2 g topical TID 04/02/25 06/04/25 (Arthritis Pain (diclofenac)) losartan 50 mg tablet (Cozaar) 50 mg PO BID 04/19/25 06/04/25 furosemide 40 mg tablet (Lasix) See Rx Instructions .Route 05/10/25 06/04/25 .COMPLEX #60 tabs melatonin 3 mg tablet 6 mg PO HS 05/15/25 06/04/25 ferrous sulfate 325 mg (65 mg 325 mg PO DAILY #0 tabs 05/16/25 06/04/25 iron) tablet diclofenac sodium 1 % topical gel 2 g topical TID 06/04/25 06/04/25 (Arthritis Pain (diclofenac)) zinc oxide 10 % topical cream 1 applic topical BID 06/04/25 06/04/25 Previous Rx's ?Medication ?Instructions ?Recorded nitroglycerin 0.4 mg sublingual 0.4 mg sublingual Q5 MIN PRN X3 02/10/23 tablet PRN #30 tabs levothyroxine 200 mcg tablet 100 mcg (1/2 x 200 mcg) PO QAM #0 04/10/23 tabs furosemide 40 mg tablet (Lasix) See Rx Instructions .Route 05/10/25 .COMPLEX #60 tabs ferrous sulfate 325 mg (65 mg 325 mg PO DAILY #0 tabs 05/16/25 iron) tablet Allergies Allergy/AdvReac Type Severity Reaction Status Date / Time Penicillins Allergy Mild Itching Verified 06/04/25 02:20 mussels Allergy Anaphylaxis Verified 06/04/25 02:20 morphine AdvReac Severe vomiting Verified 06/04/25 02:20 General Stated Complaint: Abd Prob ANNA: 3 Exam Narrative Exam Narrative: 1.Const: Well-nourished, Well-developed, appearing stated age 2.Eyes: PERRL, no conjunctival injection, and symmetrical lids. 3.ENT: Atraumatic external nose and ears. Moist MM. Neck: Symmetric, trachea midline, No thyromegaly. 4.CVS: +S1/S2, Peripheral pulses 2+ and equal in all extremities. Brisk capillary refill in all extremities. 5.RESP: Unlabored respiratory effort. Clear to auscultation bilaterally. No wheezes rales or rhonchi 6.GI: Mildly distended, bowel sounds presen but reduced t. Ostomy site demonstrates a pink ostomy, with minimal stool discharge. 7.MSK: Normocephalic/Atraumatic, Extremities w/o deformity or ttp No cyanosis or clubbing, Normal movement of all extremities 8.Skin: Warm, Dry. No rashes or lesions. 9.Neuro: bryologist II-XII grossly intact. Sensation grossly intact, no focal neurologic deficits. 10.Psych: (AAO) x3. Appropriate mood and affect Course Vital Signs Vital signs: Vital Signs Temperature 36.8 C 06/04/25 02:09 Pulse 94 H 06/04/25 02:09 Respiratory Rate 18 06/04/25 02:09 Blood Pressure 162/74 H 06/04/25 02:09 Pulse Oximetry 92 06/04/25 02:09 Temperature 36.8 C 06/04/25 02:09 Temperature Source Oral 06/04/25 02:09 Pulse 89 06/04/25 04:10 Respiratory Rate 18 06/04/25 02:09 Blood Pressure 172/74 H 06/04/25 04:01 Blood Pressure Mean 101 06/04/25 04:01 Pulse Oximetry 90 L 06/04/25 04:10 Oxygen Delivery Method Room Air 06/04/25 02:09 Oxygen Flow Rate 0 06/04/25 02:09 Pain Level 9 06/04/25 02:09 Lab/Test Results Lab/Test Results: Laboratory Tests Range/Units 06/04/25 02:17 WBC (4.4-10.8) 10^3/uL 5.22 RBC (4.36-5.78) 10^6/uL 4.13 L Hgb (13.5-17.5) g/dL 9.8 L Hct (40.0-50.0) % 33.1 L MCV (80-95) fL 80 MCH (27.0-33.0) pg 23.7 L MCHC (32.0-36.0) % 29.6 L RDW (11.8-14.1) % 25.2 H Plt Count (130-400) 10^3/uL 129 L MPV (8.0-11.0) fL 10.1 Immature Gran % % 0.4 Neutrophils % % 77.1 Lymphocytes % % 10.2 Monocytes % % 7.7 Eosinophils % % 4.0 Basophils % % 0.6 Nucleated RBC % (0.0-0.3) % 0.0 Absolute Neutrophils (1.2-6.7) 10^3/uL 4.03 Absolute Lymphocytes (1.2-3.4) 10^3/uL 0.53 L Absolute Monocytes (0.1-0.8) 10^3/uL 0.40 Absolute Eosinophils (0.0-0.7) 10^3/uL 0.21 Absolute Basophils (0.0-0.2) 10^3/uL 0.03 RBC Morphology See Below Anisocytosis 1+ Sodium (136-145) mmol/L 144 Potassium (3.5-5.1) mmol/L 3.5 Chloride (98-107) mmol/L 107 Carbon Dioxide (21.0-32.0) mmol/L 28.2 Anion Gap (3-11) mmol/L 8.8 BUN (7-18) mg/dL 13 Creatinine (0.70-1.30) mg/dL 1.1 Est GFR (CKD-EPI 2020) (mL/min/1.73m2) 68.71 Glucose (74-106) mg/dL 97 Calcium (8.5-10.1) mg/dL 8.5 Total Bilirubin (0.2-1.0) mg/dL 2.0 H AST (15-37) U/L 26 ALT (16-63) U/L 15 L Alkaline Phosphatase (46-116) U/L 114 Total Protein (6.4-8.2) g/dL 6.2 L Albumin (3.4-5.0) g/dL 2.7 L Medical Decision Making This 80-year-old male patient with a past medical history of atrial fibrillation on Eliquis and Coreg, HFrEF with an LVEF of 24% on 02/14/2024, insulin-dependent diabetes mellitus, obstructive sleep apnea, coronary artery disease, chronic kidney disease, cirrhosis with recurrent episode of hepatic encephalopathy prior hemicolectomy and TIPS procedure, current colostomy, multiple prior episodes of small bowel obstruction in the past, likely secondary to an adhesion, who was recently admitted on 05/29/2025 for small bowel obstruction. He also has mild depression. All symptoms resolved during his stay and he was discharged on 06/01/2025. He was doing well at [facility] for about 36 hours, and then today on 06/03 he began having mild abdominal pain again, he had 1 episode of vomiting, and no ostomy output. The last time he changed his bag was about 24 hours ago. He denies fever or chills. No other complaints. No blood in his ostomy. He states symptoms feel similar to previous obstructions. Exam demonstrates mildly distended abdomen, minimal tenderness at his previous surgical incision sites. Ostomy is pink, no significant output at this time. Differential certainly includes return of his obstruction, however we will perform Gastrografin test, have him take it p.o., and then get subsequent imaging to evaluate for passage. This is been both diagnostic and therapeutic in the past for him. Patient otherwise remains hemodynamically stable. Will monitor closely and reassess. 7:45 AM Patient did not pass the Gastrografin. He continues to have no ostomy output. CT scan was ordered. Currently pending results but it appears to my eyes to be a small bowel obstruction on imaging. Discussed the case with the hospitalist Dr. Mg, he agrees with the assessment and plan. My colleague Dr. Mathur he will follow-up with him on the CT scan results, but otherwise the plan is for admission. Quality:SDOH Health Related Social Needs: Health related social needs transpo insecurity Health related social needs details sometimes has trouble getting a ride to places - has to wait on son to be available [facility] All Active Problems (Updated 06/04/25 @ 07:46 by Js Johns DO) Small bowel obstruction (Acute) Hypothyroidism (acquired) (Chronic) Depression (Chronic) Anemia (Chronic) History of creation of ostomy (Acute) Contusion (Acute) Liver mass (Acute) Vomiting (Acute) Abdominal pain (Acute) Elevated lactic acid level (Acute) Acute UTI (Acute) Symptomatic bradycardia (Acute) Acute hypokalemia (Acute) Family conflict (Acute) Chest pain in adult (Acute) Fall (Acute) Chronic low back pain (Chronic) Hematuria (Acute) Leukopenia (Acute) Oral candidiasis (Acute) Sepsis syndrome (Acute) Gram-negative bacteremia (Acute) Cellulitis (Acute) Lower urinary obstructive symptom (Acute) Anemia of chronic disease (Acute) Ventricular ectopy (Acute) Sinus bradycardia (Acute) Leukocytosis (Acute) Hypertension (Chronic) Elevated lactic acid level (Acute) CHF (congestive heart failure) (Chronic) No-show for appointment (Acute) Left rotator cuff tear (Acute) Acute UTI (urinary tract infection) (Acute) Weakness (Acute) Non-ST elevation NC (NSTEMI) (Acute) Pre-syncope (Acute) Frequent falls (Acute) Orthostatic hypotension (Acute) Hypokalemia (Acute) Bradycardia (Acute) Multiple falls (Acute) Acute metabolic encephalopathy (Acute) Medication monitoring encounter (Acute) Chest pain (Acute) CHF (congestive heart failure) (Chronic) EF 25%- 2023 Medical History Chronic GERD BPH (benign prostatic hyperplasia) Major depression, recurrent, chronic Severe obesity (BMI >= 40) Diabetes mellitus treated with oral medication Anemia associated with acute blood loss Acute on chronic HFrEF (heart failure with reduced ejection fraction) Anemia Splenomegaly Thrombocytopenia Colostomy care Thrombocytopenia Chronic atrial fibrillation Type 2 diabetes mellitus CHF exacerbation ANETTE (obstructive sleep apnea) Chronic heart failure with reduced ejection fraction (HFrEF, <= 40%) Anemia Cirrhosis of liver without ascites Diabetes PAF (paroxysmal atrial fibrillation) Goals of care, counseling/discussion Lactic acidosis UTI (urinary tract infection) Urinary tract infection Advanced care planning/counseling discussion Palliative care encounter Followed by LT[facility] Bowel obstruction Sepsis Heart failure with reduced ejection fraction Hypothyroidism Small bowel obstruction Lactic acid acidosis Creatinine elevation Acute UTI Anticoagulated COVID Recurrent intestinal obstruction History of colon cancer Chronic anticoagulation Portal hypertension Cirrhosis TIPs placed (?when, [facility]? 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, Dx [facility] as per pt Non-insulin dependent type 2 diabetes mellitus Incontinence Hypertension Scleral icterus Surgical History S/P TIPS (transjugular intrahepatic portosystemic shunt) H/O left hemicolectomy Colostomy in place Social History Smoking/Tobacco Use Status: Former Tobacco Use Smoking risk assessment performed?: Yes Alcohol Intake: former Drug use: Never Substance use type: does not use Housing: correction Do you feel safe at home: Yes Do you feel safe in your relationship?: Yes Additional Social history: from [facility]
[2025-06-04] MEDS: Metoclopramide 10 MG/2 ML VIAL IVP (04:47)
[2025-06-04] MEDS: MORPHine 4 MG/ML SYR IVP (04:47)
--- NOTE | 2025-06-04 06:00 | DI.CT_ITS ---
Exam(s) CT ABDOMEN PELVIS WO EXAM: CT ABDOMEN PELVIS WO CLINICAL HISTORY: distension, suspect obstruction. TECHNIQUE: Imaging Protocol: Axial computed tomography images with coronal and sagittal reformatted images were created and reviewed. COMPARISON: CT CT ABDOMEN PELVIS W from 05/28/2025 FINDINGS: Oral Gastrografin was administered at 3:00 a.m. on 06/04/2025. ABDOMEN: Lung Bases: There are again seen moderate size bilateral pleural effusions. There may be slight increase in size of the effusion since prior examination. The heart appears enlarged. There are bilateral basilar infiltrates present. Liver: The liver has a nodular contour and a small most suggestive of hepatic cirrhosis. There is a TIPS in place. No measurable mass. Gallbladder and biliary tract: There is no biliary ductal dilatation. Pancreas: Normal density, no abnormal calcifications or inflammatory process. Spleen: The spleen is enlarged. Kidneys: Normal size, contour and axis.No evidence of obstructive uropathy. No masses seen. Adrenal glands: No mass is seen. Lymph nodes: Within normal limits. Abdominal Aorta: Abdominal portion non-dilated. Atherosclerotic calcification is present. PELVIS: Bladder:Symmetric distention, no gross wall thickening. Bowel: There has been prior resection of the rectosigmoid colon with a left lower quadrant colostomy. There is an anastomosis in the right abdomen. The oral contrast has passed into the small bowel beyond the dilated loops in the central abdomen. Contrast has not passed into the colon yet. Peritoneal cavity: There is a small amount of perihepatic ascites. No free air. Reproductive organs: Unremarkable as visualized. Bones: Within normal limits. Soft Tissues: There is a fat containing right inguinal hernia. IMPRESSION: 1. Moderate bilateral pleural effusions are present. 2. Bilateral basilar infiltrates which may represent atelectasis or pneumonia. 3. Findings of hepatic cirrhosis with splenomegaly and ascites. There is again seen a TIPS. 4. There are dilated loops of small bowel in the central abdomen. The oral contrast, however, has passed beyond the dilated loops. This may reflect a partial or intermittent obstruction. 5. The preliminary [facility] report was reviewed. RADIATION DOSE DELIVERED: 945.42mGy.cm Total DLP DATA REPOSITORY: All CT scans at this facility are submitted to the National Radiology Data Registry (NRDR) Dose Index Registry (DIR) with the [employer] ([employer]). RADIATION OPTIMIZATION: All CT scans at this facility use at least one of these dose optimization techniques: automated exposure control; mA and/or kV adjustment per patient size (includes targeted exams where dose is matched to clinical indication); or iterative reconstruction.
--- NOTE | 2025-06-04 08:22 | DI.[facility]_ITS ---
Addendum created by Daina Oro MD on 06/04/2025 8:23:01 AM EDT: THIS REPORT CONTAINS FINDINGS THAT MAY BE CRITICAL TO PATIENT CARE. The findings were verbally communicated via telephone conference with Dr. Morrissey at 8:22 AM EDT on 06/04/2025. The findings were acknowledged and understood. Initial report created on 06/04/2025 8:21:39 AM EDT: PROCEDURE INFORMATION: Exam: CT Abdomen And Pelvis Without Contrast Exam date and time: 06/04/2025 6:19 AM Age: 80 years old Clinical indication: Other: Distension, suspect obstruction; Prior surgery; Surgery date: 6+ months; Surgery type: Transjugular intrahepatic portosystemic shunt. Colostomy bag. Left hemicolectomy TECHNIQUE: Imaging protocol: Computed tomography of the abdomen and pelvis without contrast. Radiation optimization: All CT scans at this facility use at least one of these dose optimization techniques: automated exposure control; mA and/or kV adjustment per patient size (includes targeted exams where dose is matched to clinical indication); or iterative reconstruction. Other contrast: Oral, gastrografin , 120; COMPARISON: CT ABDOMEN PELVIS W 05/28/2025 10:14 PM FINDINGS: Limitations: Artifact from dense contrast in the stomach and duodenum limits evaluation of the surrounding tissues. No intravenous contrast was administered, limiting evaluation for some pathologies. Lungs: Consolidation in the lower lobes of both lungs. Pleural spaces: Bilateral pleural effusions, at least moderate in size but incompletely imaged. Liver: Cirrhosis. Gallbladder and biliary ducts: Pericholecystic stranding. Cholelithiasis. Pancreas: No CT evidence for acute pancreatitis. Spleen: Splenomegaly. Adrenal glands: No mass. Kidneys and ureters: Contour irregularities in both kidneys. No hydronephrosis. Stomach and bowel: Duodenal thickening with stranding in the adjacent fat. Small bowel diverticula. Distended proximal small bowel with transition to collapsed small bowel in the pelvis. Contrast is seen distal to the transition point, suggesting that the obstruction may be early/partial or intermittent. Left lower quadrant colostomy. Appendix: No evidence of appendicitis. Intraperitoneal space: Small amount of ascites. Vasculature: Portosystemic shunt. Arterial calcifications. Evidence for portal hypertension including splenomegaly. Lymph nodes: Nonspecific mesenteric and retroperitoneal lymph nodes. Bilateral inguinal and pelvic lymph nodes. Urinary bladder: No acute findings. Reproductive: Mildly enlarged prostate indenting the bladder. Bones/joints: No pertinent acute abnormality seen. Soft tissues: No pertinent acute abnormality seen. IMPRESSION: 1. Findings suggestive of small bowel obstruction as described above. 2. Cirrhosis with evidence for portal hypertension. 3. Duodenal thickening with stranding in the adjacent fat suggesting possible duodenitis. Please correlate clinically. 4. Pleural effusions. 5. Consolidation in both lungs. Consider atelectasis, pneumonia. Follow-up as clinically warranted. 6. Additional findings as above. Dictated and Authenticated by: Daina Oro MD. Orderin Andreas Weinstein MD
--- NOTE | 2025-06-04 08:53 | W.PM.HP.N ---
Date of service: 06/04/25 Time of Service: 08:54 Assessment and Plan Assessment and plan (1) SBO (small bowel obstruction): Status: Resolved Assessment and plan: D/c s/p SBO on 06/01 back with simialr symptoms with failed gastrografin challenge CT abd Surgical consult NGT in place to LIS (2) GIB (gastrointestinal bleeding): Assessment and plan: IV protonix. (3) CHF (congestive heart failure): Status: Chronic Assessment and plan: last Echo 03/20 LVEF 35% with global hypokinesis; improved from January 2024, with LVEF 25 to 35% Ongoing home medicine with Lasix, Losartan, Aldactone, Jardiance . Stable Cautious IV hydration while NPO (4) Acute kidney injury: Status: Resolved Assessment and plan: Cr 1.1- baseline no RODOLFO at this time (5) Lower urinary obstructive symptom: Status: Acute Assessment and plan: Ongoing home dose of flomax (6) Anemia of chronic disease: Status: Acute Assessment and plan: stable hgb 9.8 - will continue to monitor CBC in AM (7) Non-insulin dependent type 2 diabetes mellitus: Assessment and plan: Gluc Q 6H with SSI while NPO Holding metformin and resume on discharge BMP in AM Discussed with Dr. Arizmendi (8) Depression: Status: Chronic Assessment and plan: No suicidal ideation (9) Hypothyroidism (acquired): Status: Chronic Assessment and plan: on home dose synthroid (10) PAF (paroxysmal atrial fibrillation): Assessment and plan: Eliquis home dose, no beta blockers No Need for pharmocological DVT prophylaxis Discussed with Dr. Arizmendi History of Present Illness History of Present Illness Chief Complaint: abdominal pain nausea vomiting Narrative: This 80-year-old male patient with a past medical history of atrial fibrillation on Eliquis and Coreg, HFrEF with an LVEF of 24% on 02/14/2024, insulin-dependent diabetes mellitus, obstructive sleep apnea, coronary artery disease, depression, chronic kidney disease, cirrhosis with recurrent episode of hepatic encephalopathy prior hemicolectomy and TIPS procedure, current colostomy, multiple prior episodes of small bowel obstruction in the past, likely secondary to an adhesion with recent admission on 05/29/2025 for SBO and discharge 06/01/2025 s/p resolution presented to the ED from a local SNF via EMS today for evaluation of nausea, vomiting, abdominal pain, negative ostomy output X 24 hours with concern of recurrent SBO. Blood work was unremarkable, and a failed gastrografin challenge pointed to SBO ; CT of the abdomen was pending. The patient will be admitted to the medical surgical floor for furhter wor-up for small bowel obstruction pending surgical consult. The patient confirmed his full code status. Denied fever, chills, headache, change in vision, chest pain, flatus, . Reported abdominal pain, vomiting w/o hematemesis or hematochezia and no ostomy output over 24 hours. Review of Systems All systems reviewed & are unremarkable except as noted in HPI and below PFSH All Active Problems (Updated 06/04/25 @ 07:46 by Js Johns DO) Small bowel obstruction (Acute) Hypothyroidism (acquired) (Chronic) Depression (Chronic) Anemia (Chronic) History of creation of ostomy (Acute) Contusion (Acute) Liver mass (Acute) Vomiting (Acute) Abdominal pain (Acute) Elevated lactic acid level (Acute) Acute UTI (Acute) Symptomatic bradycardia (Acute) Acute hypokalemia (Acute) Family conflict (Acute) Chest pain in adult (Acute) Fall (Acute) Chronic low back pain (Chronic) Hematuria (Acute) Leukopenia (Acute) Oral candidiasis (Acute) Sepsis syndrome (Acute) Gram-negative bacteremia (Acute) Cellulitis (Acute) Lower urinary obstructive symptom (Acute) Anemia of chronic disease (Acute) Ventricular ectopy (Acute) Sinus bradycardia (Acute) Leukocytosis (Acute) Hypertension (Chronic) Elevated lactic acid level (Acute) CHF (congestive heart failure) (Chronic) No-show for appointment (Acute) Left rotator cuff tear (Acute) Acute UTI (urinary tract infection) (Acute) Weakness (Acute) Non-ST elevation NE (NSTEMI) (Acute) Pre-syncope (Acute) Frequent falls (Acute) Orthostatic hypotension (Acute) Hypokalemia (Acute) Bradycardia (Acute) Multiple falls (Acute) Acute metabolic encephalopathy (Acute) Medication monitoring encounter (Acute) Chest pain (Acute) CHF (congestive heart failure) (Chronic) EF 25%- 2023 Medical History Chronic GERD BPH (benign prostatic hyperplasia) Major depression, recurrent, chronic Severe obesity (BMI >= 40) Diabetes mellitus treated with oral medication Anemia associated with acute blood loss Acute on chronic HFrEF (heart failure with reduced ejection fraction) Anemia Splenomegaly Thrombocytopenia Colostomy care Thrombocytopenia Chronic atrial fibrillation Type 2 diabetes mellitus CHF exacerbation ANETTE (obstructive sleep apnea) Chronic heart failure with reduced ejection fraction (HFrEF, <= 40%) Anemia Cirrhosis of liver without ascites Diabetes PAF (paroxysmal atrial fibrillation) Goals of care, counseling/discussion Lactic acidosis UTI (urinary tract infection) Urinary tract infection Advanced care planning/counseling discussion Palliative care encounter Followed by [facility] Bowel obstruction Sepsis Heart failure with reduced ejection fraction Hypothyroidism Small bowel obstruction Lactic acid acidosis Creatinine elevation Acute UTI Anticoagulated COVID Recurrent intestinal obstruction History of colon cancer Chronic anticoagulation Portal hypertension Cirrhosis TIPs placed (?when, 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, Dx [facility] as per pt Non-insulin dependent type 2 diabetes mellitus Incontinence Hypertension Scleral icterus Surgical History S/P TIPS (transjugular intrahepatic portosystemic shunt) H/O left hemicolectomy Colostomy in place Social History Smoking/Tobacco Use Status: Former Tobacco Use Smoking risk assessment performed?: Yes Alcohol Intake: former Drug use: Never Substance use type: does not use [facility]: [facility] Do you feel safe at home: Yes Do you feel safe in your relationship?: Yes Additional Social history: from [facility] Meds Allergies and Home Medications Allergies Allergy/AdvReac Type Severity Reaction Status Date / Time Penicillins Allergy Mild Itching Verified 06/04/25 02:20 mussels Allergy Anaphylaxis Verified 06/04/25 02:20 morphine AdvReac Severe vomiting Verified 06/04/25 02:20 Home Medications ?Medication ?Instructions ?Recorded ?Confirmed ?Type apixaban 5 mg tablet (Eliquis) 5 mg PO BID 11/08/22 06/04/25 History pantoprazole 40 mg tablet,delayed 40 mg PO DAILY 11/08/22 06/04/25 History release nitroglycerin 0.4 mg sublingual 0.4 mg sublingual Q5 MIN PRN X3 02/10/23 06/04/25 Rx tablet PRN #30 tabs empagliflozin 25 mg tablet 25 mg PO DAILY 04/09/23 06/04/25 History levothyroxine 200 mcg tablet 100 mcg (1/2 x 200 mcg) PO QAM #0 04/10/23 06/04/25 Rx tabs rifaximin 550 mg tablet 550 mg PO BID 07/07/23 06/04/25 History venlafaxine 150 mg 150 mg PO DAILY 03/05/24 06/04/25 History capsule,extended release 24 hr acetaminophen 325 mg capsule 650 mg PO Q6H PRN 05/12/24 06/04/25 History (Tylenol) prazosin 5 mg capsule 10 mg PO QPM 08/04/24 06/04/25 History tamsulosin 0.4 mg capsule 0.4 mg PO DAILY 08/04/24 06/04/25 History metformin 500 mg tablet,extended 1,000 mg PO BID 01/17/25 06/04/25 History release 24hr (osmotic) bisacodyl 10 mg rectal suppository 10 mg [place] DAILY PRN 02/26/25 06/04/25 History (Dulcolax (bisacodyl)) lactulose 20 gram/30 mL oral 15 ml PO TID 02/26/25 06/04/25 History solution ondansetron 4 mg disintegrating 4 mg PO Q6H PRN 02/26/25 06/04/25 History tablet potassium chloride 20 mEq 20 meq PO DAILY 02/26/25 06/04/25 History tablet,extended release spironolactone 25 mg tablet 12.5 mg PO DAILY 02/26/25 06/04/25 History (Aldactone) venlafaxine 75 mg capsule,extended 75 mg PO DAILY 02/26/25 06/04/25 History release 24 hr (Effexor XR) diclofenac sodium 1 % topical gel 2 g topical TID 04/02/25 06/04/25 History (Arthritis Pain (diclofenac)) losartan 50 mg tablet (Cozaar) 50 mg PO BID 04/19/25 06/04/25 History furosemide 40 mg tablet (Lasix) See Rx Instructions .Route 05/10/25 06/04/25 Rx .COMPLEX #60 tabs melatonin 3 mg tablet 6 mg PO HS 05/15/25 06/04/25 History ferrous sulfate 325 mg (65 mg 325 mg PO DAILY #0 tabs 05/16/25 06/04/25 Rx iron) tablet diclofenac sodium 1 % topical gel 2 g topical TID 06/04/25 06/04/25 History (Arthritis Pain (diclofenac)) zinc oxide 10 % topical cream 1 applic topical BID 06/04/25 06/04/25 History Exam Narrative Exam Narrative: 80 years old male in no acute distress,, alert and oriented X3, no acute neurological deficit, heart is regular, no murmur, PPPX4, unlabored breathing - clear lungs s/p cough and deep breathing, fine crackles to R base, abdomen is slightly distended, soft , tender to RLQ, bowel sounds are absent, colostomy w/o output or gas Results Labs 06/04/25 02:17 06/04/25 02:17 Labs: Laboratory Results - last 24 hr 06/04/25 02:17 WBC 5.22 RBC 4.13 L Hgb 9.8 L Hct 33.1 L MCV 80 MCH 23.7 L MCHC 29.6 L RDW 25.2 H Plt Count 129 L MPV 10.1 Immature Gran % 0.4 Neutrophils % 77.1 Lymphocytes % 10.2 Monocytes % 7.7 Eosinophils % 4.0 Basophils % 0.6 Nucleated RBC % 0.0 Absolute Neutrophils 4.03 Absolute Lymphocytes 0.53 L Absolute Monocytes 0.40 Absolute Eosinophils 0.21 Absolute Basophils 0.03 RBC Morphology See Below Anisocytosis 1+ Sodium 144 Potassium 3.5 Chloride 107 Carbon Dioxide 28.2 Anion Gap 8.8 BUN 13 Creatinine 1.1 Est GFR (CKD-EPI 2020) 68.71 Glucose 97 Calcium 8.5 Total Bilirubin 2.0 H AST 26 ALT 15 L Alkaline Phosphatase 114 Total Protein 6.2 L Albumin 2.7 L Last Vital Signs Temp 36.8 C 06/04/25 02:09 Pulse 77 06/04/25 08:01 Resp 18 06/04/25 02:09 BP 153/74 H 06/04/25 08:01 Pulse Ox 95 06/04/25 08:01 Time Spent Time spent with Patient: >75 minutes Time was spent: preparing to see the patient(eg.review tests), obtaining and/or reviewing separately otained hiistory, ordering medications,tests, procedures, referring, communicating with other health summer child caregiver, indepentently interpreting results, counseling the patient and care coordination
--- NOTE | 2025-06-04 09:26 | ED.PROG_ITS ---
Date of service: 06/04/25 Time of Service: 09:26 Medical Decision Making Patient signed out to me pending CT read which confirms small bowel obstruction. Also has pleural effusions and question atelectasis versus infiltrate but he has no white count and denies any cough so I doubt pneumonia. Hospitalist plan to admit Quality:SDOH Health Related Social Needs: Health related social needs transpo insecurity Health related social needs details sometimes has trou ble getting a ride to places - has to wait on son to be available Discharge Plan Disposition Patient Disposition: Admit to [facility] Condition: Good Discharge Details Clinical Impression: Small bowel obstruction Primary Care Provider: Maryann Whitt ED Provider: Kevin Morrissey Home Meds and New Rx's Prescriptions: No Action pantoprazole 40 mg Tablet,Delayed Release (Dr/Ec) 40 mg PO DAILY Eliquis 5 mg Tablet 5 mg PO BID Patient Comments: taking per pt nitroglycerin 0.4 mg Tablet, Sublingual 0.4 mg sublingual Q5 MIN PRN X3 PRNQty: 30 0RF rifaximin 550 mg Tablet 550 mg PO BID prazosin 5 mg capsule 10 mg PO QPM tamsulosin 0.4 mg Capsule 0.4 mg PO DAILY metformin 500 mg tablet extended release 24hr 1,000 mg PO BID bisacodyl [Dulcolax (bisacodyl)] 10 mg suppository [address] DAILY PRN ondansetron 4 mg tablet,disintegrating 4 mg PO Q6H PRN potassium chloride 20 mEq tablet extended release 20 meq PO DAILY spironolactone [Aldactone] 25 mg tablet 12.5 mg PO DAILY venlafaxine [Effexor XR] 75 mg capsule,extended release 24hr 75 mg PO DAILY Patient Comments: takes w/150mg capsule for total dose of 225mg daily lactulose 20 gram/30 mL Solution 15 ml PO TID Rx Instructions: to maintain colostomy output of 3-4 bags per day diclofenac sodium [Arthritis Pain (diclofenac)] 1 % gel 2 g topical TID Rx Instructions: apply to single elbow, wrist or hand; for hand includes palm/fingers/back of hand melatonin 3 mg tablet 6 mg PO HS Patient Comments: TAKE ONE TABLET BY MOUTH AT BEDTIME ferrous sulfate 325 mg (65 mg iron) Tablet 325 mg PO DAILY Qty: 0 0RF empagliflozin 25 mg Tablet 25 mg PO DAILY levothyroxine 200 mcg Tablet 100 mcg PO QAM Qty: 0 0RF venlafaxine 150 mg capsule,extended release 24hr 150 mg PO DAILY acetaminophen [Tylenol] 325 mg Capsule 650 mg PO Q6H MDD 3000 PRN losartan [Cozaar] 50 mg tablet 50 mg PO BID furosemide [Lasix] 40 mg tablet See Rx Instructions .ROUTE .COMPLEX Qty: 60 0RF Rx Instructions: 40 mg every morning and 20 mg early afternoon diclofenac sodium [Arthritis Pain (diclofenac)] 1 % gel 2 g topical TID Rx Instructions: apply to single elbow, wrist or hand; for hand includes palm/fingers/back of hand zinc oxide 10 % cream 1 applic topical BID
--- NOTE | 2025-06-04 12:54 | DI.RAD_ITS ---
Exam(s) XR PORTABLE CHEST AP POST LINE EXAM: XR PORTABLE CHEST AP POST LINE CLINICAL HISTORY: NGT placement TECHNIQUE: 2D digital imaging was performed of the chest. Two images were obtained. AP views were obtained. COMPARISON: CR,XR XR PORTABLE CHEST AP POST LINE from 05/29/2025 CR XR ABDOMEN FLAT PLATE from 05/31/2025 CR XR ABDOMEN FLAT PLATE from 06/01/[address] ABDOMEN PELVIS WO from 06/04/2025 FINDINGS: There has been interval placement of a nasogastric tube. The tip of the catheter is in the stomach. The side-port appears to lie just at the gastroesophageal junction. The tube should be advanced. MEDIASTINUM: Normal. HEART: Cardiomegaly. PULMONARY VASCULATURE: There is pulmonary venous congestion. LUNGS: There are no focal consolidating infiltrates present. PLEURAL SPACE: There is blunting of the costophrenic angle suggesting small pleural effusions. BONE:Within normal limits for the patient's age. OTHER FINDINGS:There is oral contrast seen in the bowel. IMPRESSION: 1. There has been interval placement of a nasogastric tube. The tip of the catheter is in the stomach. The side-port lies just at the gastroesophageal junction and should be advanced. 2. Cardiomegaly. Pulmonary venous congestion. Small pleural effusions. 3. No focal consolidating infiltrates. DATA REPOSITORY: RADIATION DOSE DELIVERED:
--- NOTE | 2025-06-04 14:04 | RESPIRATORY ---
06/03/2025 Spoke with patient regarding home CPAP; patient would like to wear O2 instead of CPAP due to NG tube.
--- NOTE | 2025-06-04 14:32 | W.SUR.HO ---
Registration Status: ADM IN Primary Language: Preferred Language: v v v v v v v v v Sending and/or Receiving Nurses: Please use comment section below to note any information pertinent to the patient hand-off not included above. Information / Comments: Report received from: Active Medications Generic Name Dose Route Start Last Admin Trade Name Freq PRN Reason Stop Dose Admin Albuterol Sulfate 2.5 mg 06/04/25 11:07 Albuterol 2.5 Mg/3 Ml Inh Soln Vial UPD Q2H PRN PRN Apixaban 5 mg 06/04/25 20:00 Apixaban 5 Mg Tab PO BID MAN Bisacodyl 10 mg 06/04/25 11:50 Bisacodyl 10 Mg Supp OK On Hold: 06/04/25 11:50 DAILY [facility] Comment: hold d/t SBO Dextrose 0 gm 06/04/25 11:07 Glucose Oral Gel 15 Gm/37.5 Gm Tube PO DIRECTED PRN Dextrose/Water 0 gm 06/04/25 11:07 Dextrose 50%-Water 25 Gm/50 Ml Syr IVP DIRECTED PRN Diclofenac Sodium 2 gm 06/04/25 14:00 Diclofenac 1% Gel 100 Gm Tube TP TID [facility] Empagliflozin 25 mg 06/05/25 08:30 Empaglifozin 25 Mg Tab PO DAILY [facility] Ferrous Sulfate 325 mg 06/05/25 08:30 Ferrous Sulfate 325 Mg Tab PO DAILY [facility] IV Miscellaneous Supplies 1 each 06/04/25 11:07 Iv Access IV DIRECTED [facility] Insulin Aspart 0 units 06/04/25 12:00 Insulin Aspart 300 Units/3 Ml Pen SC 0800,1200,1700 [facility] Protocol Levothyroxine Sodium 100 mcg 06/05/25 06:00 Levothyroxine 100 Mcg Tab PO DAILY@0600 [facility] Losartan Potassium 50 mg 06/04/25 20:00 Losartan 50 Mg Tab PO BID [facility] Melatonin 6 mg 06/04/25 20:00 Melatonin 3 Mg Tab PO HS [facility] Nitroglycerin 0.4 mg 06/04/25 11:07 Nitroglycerin 0.4 Mg Tab SL Q5 MIN PRN X3 PRN Pantoprazole Sodium 40 mg 06/04/25 11:30 Pantoprazole 40 Mg Vial IVP DAILY [facility] Patient's Own 1 each 06/04/25 20:00 Medication (Zinc TP Oxide 10% Cream) BID [facility] Potassium Chloride 20 meq 06/04/25 11:50 Potassium Chloride 20 Meq Tabcr PO On Hold: 06/04/25 11:50 DAILY [facility] Comment: hold d/t SBO Prazosin HCl 10 mg 06/04/25 20:00 Prazosin 5 Mg Cap PO QPM MAN Rifaximin 550 mg 06/04/25 20:00 Rifaximin 550 Mg Tab PO BID MAN Sodium Chloride 0 ml 06/04/25 11:07 Normal Saline Flush 10 Ml Syr IVP PRN PRN Sodium Chloride 0 ml 06/04/25 20:00 Normal Saline Flush 10 Ml Syr IVP BID MAN Sodium Chloride 0 ml 06/04/25 11:07 Normal Saline 10 Ml Vial IJ DIRECTED PRN Spironolactone 12.5 mg 06/05/25 08:30 Spironolactone 25 Mg Tab PO DAILY MAN Tamsulosin HCl 0.4 mg 06/05/25 08:30 Tamsulosin 0.4 Mg Capcr PO DAILY [facility] Venlafaxine HCl 75 mg 06/05/25 08:30 Venlafaxine 75 Mg Capcr PO DAILY [facility] Venlafaxine HCl 150 mg 06/05/25 08:30 Venlafaxine 150 Mg Capcr PO DAILY [facility] Diet 06/04/25 11:07 Nothing Per Oral [DIET] Consults 06/04/25 09:10 Surgical Consult [CONS] Routine Neuro Patient Orientation Person,Place,Time Respiratory Pulse Oximetry 92 Pulse Oximetry 92 Pulse Oximetry 95 Pulse Oximetry 95 Pulse Oximetry 96 Pulse Oximetry 96 Pulse Oximetry 97 Pulse Oximetry 96 Pulse Oximetry 95 Pulse Oximetry 96 Pulse Oximetry 95 Pulse Oximetry 94 Pulse Oximetry 94 Pulse Oximetry 96 Pulse Oximetry 94 Pulse Oximetry 94 Pulse Oximetry 93 Pulse Oximetry 95 Pulse Oximetry 96 Pulse Oximetry 94 Pulse Oximetry 95 Pulse Oximetry 94 Pulse Oximetry 94 Pulse Oximetry 95 Pulse Oximetry 93 Pulse Oximetry 93 Pulse Oximetry 85 Pulse Oximetry 90 Pulse Oximetry 88 Pulse Oximetry 86 Pulse Oximetry 86 Pulse Oximetry 86 Pulse Oximetry 91 Pulse Oximetry 90 Pulse Oximetry 90 Pulse Oximetry 90 Pulse Oximetry 86 Pulse Oximetry 86 Pulse Oximetry 88 Pulse Oximetry 85 Pulse Oximetry 86 Pulse Oximetry 86 Pulse Oximetry 87 Pulse Oximetry 86 Pulse Oximetry 87 Pulse Oximetry 86 Pulse Oximetry 87 Pulse Oximetry 87 Pulse Oximetry 92 Pulse Oximetry 91 Pulse Oximetry 93 Pulse Oximetry 91 Pulse Oximetry 92 Pulse Oximetry 90 Pulse Oximetry 91 Pulse Oximetry 90 Pulse Oximetry 92 Pulse Oximetry 94 Pulse Oximetry 93 Pulse Oximetry 92 Oxygen Flow Rate 0 Oxygen Flow Rate 0 Oxygen Flow Rate 0 Oxygen Flow Rate 0 Bowels Date of Last Bowel Movement 06/03/25 Date of Last Bowel Movement 06/04/25 Penicillins Allergy (Mild, Verified 06/04/25 02:20) Itching mussels Allergy (Verified 06/04/25 02:20) Anaphylaxis morphine Adverse Reaction (Severe, Verified 06/04/25 02:20) vomiting Resuscitation Status Full Code 06/04/25 06:37 06/04/25 06:40 06/04/25 06:50 Temperature Temperature Source Pulse 86 86 69 Pulse [Monitor] Pulse Rhythm [Monitor] Pulse Strength [Monitor] Respiratory Rate Respiratory Effort Respiratory Depth Respiratory Pattern Blood Pressure Blood Pressure [Right Arm] Blood Pressure Mean Blood Pressure Mean [Right Arm] Blood Pressure Position [Right Arm] Pulse Oximetry 90 L 90 L 90 L Oxygen Delivery Method Oxygen Flow Rate Pain Level Comment 06/04/25 07:00 06/04/25 07:10 06/04/25 07:20 Temperature Temperature Source Pulse 82 83 88 Pulse [Monitor] Pulse Rhythm [Monitor] Pulse Strength [Monitor] Respiratory Rate Respiratory Effort Respiratory Depth Respiratory Pattern Blood Pressure Blood Pressure [Right Arm] Blood Pressure Mean Blood Pressure Mean [Right Arm] Blood Pressure Position [Right Arm] Pulse Oximetry 91 L 86 L 86 L Oxygen Delivery Method Oxygen Flow Rate Pain Level Comment 06/04/25 07:23 06/04/25 07:30 06/04/25 07:31 Temperature Temperature Source Pulse 82 71 84 Pulse [Monitor] Pulse Rhythm [Monitor] Pulse Strength [Monitor] Respiratory Rate Respiratory Effort Respiratory Depth Respiratory Pattern Blood Pressure 168/73 H 168/72 H Blood Pressure [Right Arm] Blood Pressure Mean 96 110 Blood Pressure Mean [Right Arm] Blood Pressure Position [Right Arm] Pulse Oximetry 86 L 88 L 90 L Oxygen Delivery Method Oxygen Flow Rate Pain Level Comment 06/04/25 07:40 06/04/25 07:50 06/04/25 08:00 Temperature Temperature Source Pulse 80 82 78 Pulse [Monitor] Pulse Rhythm [Monitor] Pulse Strength [Monitor] Respiratory Rate Respiratory Effort Respiratory Depth Respiratory Pattern Blood Pressure Blood Pressure [Right Arm] Blood Pressure Mean Blood Pressure Mean [Right Arm] Blood Pressure Position [Right Arm] Pulse Oximetry 85 L 93 93 Oxygen Delivery Method Oxygen Flow Rate Pain Level Comment 2L NC 2L NC 06/04/25 08:01 06/04/25 08:02 06/04/25 08:10 Temperature Temperature Source Pulse 77 89 85 Pulse [Monitor] Pulse Rhythm [Monitor] Pulse Strength [Monitor] Respiratory Rate Respiratory Effort Respiratory Depth Respiratory Pattern Blood Pressure 153/74 H Blood Pressure [Right Arm] Blood Pressure Mean 105 Blood Pressure Mean [Right Arm] Blood Pressure Position [Right Arm] Pulse Oximetry 95 94 94 Oxygen Delivery Method Oxygen Flow Rate Pain Level Comment 06/04/25 08:20 06/04/25 08:30 06/04/25 08:31 Temperature Temperature Source Pulse 77 82 Pulse [Monitor] Pulse Rhythm [Monitor] Pulse Strength [Monitor] Respiratory Rate Respiratory Effort Respiratory Depth Respiratory Pattern Blood Pressure Blood Pressure [Right Arm] Blood Pressure Mean 107 Blood Pressure Mean [Right Arm] Blood Pressure Position [Right Arm] Pulse Oximetry 95 94 96 Oxygen Delivery Method Oxygen Flow Rate Pain Level Comment 06/04/25 08:50 06/04/25 09:00 06/04/25 09:02 Temperature Temperature Source Pulse 80 77 79 Pulse [Monitor] Pulse Rhythm [Monitor] Pulse Strength [Monitor] Respiratory Rate Respiratory Effort Respiratory Depth Respiratory Pattern Blood Pressure 161/72 H Blood Pressure [Right Arm] Blood Pressure Mean 101 Blood Pressure Mean [Right Arm] Blood Pressure Position [Right Arm] Pulse Oximetry 95 93 94 Oxygen Delivery Method Oxygen Flow Rate Pain Level Comment 06/04/25 09:10 06/04/25 09:20 06/04/25 09:30 Temperature Temperature Source Pulse 89 79 77 Pulse [Monitor] Pulse Rhythm [Monitor] Pulse Strength [Monitor] Respiratory Rate Respiratory Effort Respiratory Depth Respiratory Pattern Blood Pressure Blood Pressure [Right Arm] Blood Pressure Mean Blood Pressure Mean [Right Arm] Blood Pressure Position [Right Arm] Pulse Oximetry 94 96 94 Oxygen Delivery Method Oxygen Flow Rate Pain Level Comment 06/04/25 09:31 06/04/25 09:40 06/04/25 09:50 Temperature Temperature Source Pulse 79 70 79 Pulse [Monitor] Pulse Rhythm [Monitor] Pulse Strength [Monitor] Respiratory Rate Respiratory Effort Respiratory Depth Respiratory Pattern Blood Pressure 168/61 H Blood Pressure [Right Arm] Blood Pressure Mean 100 Blood Pressure Mean [Right Arm] Blood Pressure Position [Right Arm] Pulse Oximetry 94 95 96 Oxygen Delivery Method Oxygen Flow Rate Pain Level Comment 06/04/25 10:00 06/04/25 10:01 06/04/25 10:10 Temperature Temperature Source Pulse 64 75 73 Pulse [Monitor] Pulse Rhythm [Monitor] Pulse Strength [Monitor] Respiratory Rate Respiratory Effort Respiratory Depth Respiratory Pattern Blood Pressure 165/80 H Blood Pressure [Right Arm] Blood Pressure Mean 100 Blood Pressure Mean [Right Arm] Blood Pressure Position [Right Arm] Pulse Oximetry 95 96 97 Oxygen Delivery Method Oxygen Flow Rate Pain Level Comment 06/04/25 10:20 06/04/25 10:30 06/04/25 10:31 Temperature Temperature Source Pulse 77 77 74 Pulse [Monitor] Pulse Rhythm [Monitor] Pulse Strength [Monitor] Respiratory Rate Respiratory Effort Respiratory Depth Respiratory Pattern Blood Pressure 176/70 H Blood Pressure [Right Arm] Blood Pressure Mean 102 Blood Pressure Mean [Right Arm] Blood Pressure Position [Right Arm] Pulse Oximetry 96 96 95 Oxygen Delivery Method Oxygen Flow Rate Pain Level Comment 06/04/25 10:39 06/04/25 11:10 06/04/25 11:51 Temperature 37.1 C 36.7 C 37.1 C Temperature Source Oral Tympanic Pulse 75 75 Pulse [Monitor] 77 Pulse Rhythm [Monitor] Regular Pulse Strength [Monitor] Normal Respiratory Rate 16 18 18 Respiratory Effort Normal Normal Respiratory Depth Normal Normal Respiratory Pattern Normal Blood Pressure 144/73 H 144/73 H Blood Pressure [Right Arm] 152/77 H Blood Pressure Mean 96 Blood Pressure Mean [Right Arm] 102 Blood Pressure Position [Right Arm] Supine Pulse Oximetry 95 92 92 Oxygen Delivery Method Room Air Room Air Room Air Oxygen Flow Rate 0 0 0 Pain Level 5 8 Comment v v v v v v v v v Sending and/or Receiving Nurses: Please use comment section below to note any information pertinent to the patient hand-off not included above. Information / Comments: Report received from: Report called from Carl at 10:43 and he is stable with a new Ng tube for decompression. BP is elevated at 144/73, but pulse is stable at 75, respirations 18, and pulse oxygen at 92%.
[2025-06-04] MEDS: Pantoprazole 40 MG VIAL IVP (16:16)
--- NOTE | 2025-06-04 18:38 | W.SURGCON ---
Date of service: 06/04/25 Time of Service: 18:38 Assessment and Plan Assessment and plan (1) Abdominal pain: Status: Acute Assessment and plan: Patient's abdominal pain appears to be improving, but not yet completely resolved. He did get 4 mg of morphine on presentation here. (2) Cirrhosis of liver without ascites: Assessment and plan: Appears stable, he is on Lasix and spironolactone. I do not see a beta-michael. Bilirubin is 2 today, he does have thrombocytopenia. From my calculations he is Harshil B, does not at this time meet jovanna criteria for hospice, but certainly is a operative risk. (3) Chronic heart failure with reduced ejection fraction (HFrEF, <= 40%): Assessment and plan: Patient does have CHF with significantly reduced EF. He has been seen by my surgical colleagues here, and he is not a candidate for operation at this facility. His functionality, and cardiac conditions do not directly qualify him for hospice yet, but in combination with other medical problems may qualify him. (4) Delayed gastric transit: Status: Acute Assessment and plan: CT scan as above, does not show small bowel obstruction. There is delayed gastrointestinal transit. This is not a surgical condition, it is a deterioration of his gastrointestinal function. Potentially erythromycin may help in the short-term. Also TPN may be of help in the short-term as well. These gastrointestinal issues, and obstructions in the past have resolved with time. I will hold off on ordering the TPN for now. He may benefit from consultation with hospice palliative care physicians on Friday. Dr. Clary Damian has seen him in the past in June 2024. History of Present Illness History of Present Illness Chief Complaint: Abdominal pain Narrative: Mr. Ruiz is a 80-year-old male, he was recently admitted here to our facility, at [facility] [place] [facility] ([place], [place]), with small bowel obstruction. This appeared to resolve, his colostomy opened up, his pain was much improved, and he was discharged to nursing facility with the [facility]. He now presents again having similar type of abdominal pain and discomfort in his abdomen. He reports compliance with medications at facility. He was given lactulose. Review of Systems Narrative: General, patient with debilitated state of health, and several severe chronic medical conditions. HEENT, negative. CV, history of congestive heart failure. Respiratory, patient with pleural effusions as below. GI, as per HPI above, patient with small bowel obstruction. History of a rectal cancer when patient was in his late 20s (he does report exposure to agent orange during [place] War). Patient also with history of alcoholic cirrhosis and TIPS procedure. Endocrine, patient with hypothyroidism and type 2 diabetes. Psych, history of depression. Neuro negative. Skin, negative. PFSH All Active Problems (Updated 06/04/25 @ 18:53 by Daniel Rodney MD) Delayed gastric transit (Acute) Small bowel obstruction (Acute) Hypothyroidism (acquired) (Chronic) Depression (Chronic) Anemia (Chronic) History of creation of ostomy (Acute) Contusion (Acute) Liver mass (Acute) Vomiting (Acute) Abdominal pain (Acute) Elevated lactic acid level (Acute) Acute UTI (Acute) Symptomatic bradycardia (Acute) Acute hypokalemia (Acute) Family conflict (Acute) Chest pain in adult (Acute) Fall (Acute) Chronic low back pain (Chronic) Hematuria (Acute) Leukopenia (Acute) Oral candidiasis (Acute) Sepsis syndrome (Acute) Gram-negative bacteremia (Acute) Cellulitis (Acute) Lower urinary obstructive symptom (Acute) Anemia of chronic disease (Acute) Ventricular ectopy (Acute) Sinus bradycardia (Acute) Leukocytosis (Acute) Hypertension (Chronic) Elevated lactic acid level (Acute) CHF (congestive heart failure) (Chronic) No-show for appointment (Acute) Left rotator cuff tear (Acute) Acute UTI (urinary tract infection) (Acute) Weakness (Acute) Non-ST elevation FL (NSTEMI) (Acute) Pre-syncope (Acute) Frequent falls (Acute) Orthostatic hypotension (Acute) Hypokalemia (Acute) Bradycardia (Acute) Multiple falls (Acute) Acute metabolic encephalopathy (Acute) Medication monitoring encounter (Acute) Chest pain (Acute) CHF (congestive heart failure) (Chronic) EF 25%- 2023 Medical History Chronic GERD BPH (benign prostatic hyperplasia) Major depression, recurrent, chronic Severe obesity (BMI >= 40) Diabetes mellitus treated with oral medication Anemia associated with acute blood loss Acute on chronic HFrEF (heart failure with reduced ejection fraction) Anemia Splenomegaly Thrombocytopenia Colostomy care Thrombocytopenia Chronic atrial fibrillation Type 2 diabetes mellitus CHF exacerbation ANETTE (obstructive sleep apnea) Chronic heart failure with reduced ejection fraction (HFrEF, <= 40%) Anemia Cirrhosis of liver without ascites Diabetes PAF (paroxysmal atrial fibrillation) Goals of care, counseling/discussion Lactic acidosis UTI (urinary tract infection) Urinary tract infection Advanced care planning/counseling discussion Palliative care encounter Followed by [facility] Bowel obstruction Sepsis Heart failure with reduced ejection fraction Hypothyroidism Small bowel obstruction Lactic acid acidosis Creatinine elevation Acute UTI Anticoagulated COVID Recurrent intestinal obstruction History of colon cancer Chronic anticoagulation Portal hypertension Cirrhosis TIPs placed (?when, [facility]? 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, Dx [facility] as per pt Non-insulin dependent type 2 diabetes mellitus Incontinence Hypertension Scleral icterus Surgical History S/P TIPS (transjugular intrahepatic portosystemic shunt) H/O left hemicolectomy Colostomy in place Social History Smoking/Tobacco Use Status: Former Tobacco Use Smoking risk assessment performed?: Yes Alcohol Intake: former Drug use: Never Substance use type: does not use Housing: skilled nursing Do you feel safe at home: Yes Do you feel safe in your relationship?: Yes Additional Social history: from [facility] Exam Narrative Exam Narrative: Patient is an adult male, he is awake and alert, he is in minimal discomfort today, reports that his pain has improved some but not resolved since presentation here. His colostomy he reports he is passing stool. His vital signs show some hypertension. His abdomen today is obese, it does not appear distended with respect to examination 72 hours ago. His colostomy has begun to function and there is stool within it. The colostomy is on the left mid abdomen. There are normal active bowel sounds present throughout, there is minimal tenderness in the periumbilical region. Results Last Vital Signs Temp 37.1 C 06/04/25 11:51 Pulse 75 06/04/25 11:51 Resp 18 06/04/25 11:51 BP 144/73 H 06/04/25 11:51 Pulse Ox 92 06/04/25 11:51 Labs 06/04/25 02:17 06/04/25 02:17 Labs: Laboratory Results - last 24 hr 06/04/25 02:17 WBC 5.22 RBC 4.13 L Hgb 9.8 L Hct 33.1 L MCV 80 MCH 23.7 L MCHC 29.6 L RDW 25.2 H Plt Count 129 L MPV 10.1 Immature Gran % 0.4 Neutrophils % 77.1 Lymphocytes % 10.2 Monocytes % 7.7 Eosinophils % 4.0 Basophils % 0.6 Nucleated RBC % 0.0 Absolute Neutrophils 4.03 Absolute Lymphocytes 0.53 L Absolute Monocytes 0.40 Absolute Eosinophils 0.21 Absolute Basophils 0.03 RBC Morphology See Below Anisocytosis 1+ Sodium 144 Potassium 3.5 Chloride 107 Carbon Dioxide 28.2 Anion Gap 8.8 BUN 13 Creatinine 1.1 Est GFR (CKD-EPI 2020) 68.71 Glucose 97 Calcium 8.5 Total Bilirubin 2.0 H AST 26 ALT 15 L Alkaline Phosphatase 114 Total Protein 6.2 L Albumin 2.[address] scan report/results: report reviewed, image reviewed and other (Reviewed patient's CT scan from today at 6 AM. The orally administered contrast from 3 days ago now is still in the stomach and small intestine. He does have some delayed gastrointestinal transit. The radiologist does not see a bowel obstruction.)
[2025-06-04] MEDS: Normal Saline Flush 10 ML SYR IVP (19:57)
[2025-06-04] MEDS: ACETAMINOPHEN 1,000 MG/100 ML BAG 400 MG IVPB (19:57)
[2025-06-04] MEDS: Losartan 50 MG TAB PO (20:02)
[2025-06-04] MEDS: Apixaban 5 MG TAB PO (20:02)
[2025-06-04] MEDS: Melatonin 3 MG TAB 6 MG PO (20:02)
[2025-06-04] MEDS: Rifaximin 550 MG TAB PO (20:02)
[2025-06-04] MEDS: Prazosin 5 MG CAP 10 MG PO (20:03)
[2025-06-05] MEDS: Levothyroxine 100 MCG TAB PO (05:55)
[2025-06-05 07:22] VITALS: BP 128/63; PULSE 67; RESP 16; TEMP 36.5; O2SAT 92
--- NOTE | 2025-06-05 08:30 | DI.RAD_ITS ---
Exam(s) XR ABDOMEN FLAT PLATE EXAM: 2D digital imaging was performed. CLINICAL HISTORY: Abdominal pain. COMPARISON: CR XR ABDOMEN FLAT PLATE from 06/01/[address] ABDOMEN PELVIS WO from 06/04/2025 TECHNIQUE: Supine views of the abdomen was performed. Three images were obtained. FINDINGS: LUNG BASES: Clear. BOWEL GAS PATTERN: Nondistended. There is oral contrast seen in the colon and colostomy bag. There is no evidence of obstruction. FREE AIR: None. CALCIFICATIONS: Atherosclerotic calcification is present. OSSEOUS STRUCTURES: Normal for age. OTHER FINDINGS: There is a TIPS in the right upper quadrant. There are surgical clips seen in the left abdomen and the pelvis. IMPRESSION: There is no evidence of bowel obstruction. DATA REPOSITORY: RADIATION DOSE DELIVERED:
[2025-06-05] MEDS: Losartan 50 MG TAB PO ×2 (08:55→19:37)
[2025-06-05] MEDS: Spironolactone 25 MG TAB 12.5 MG PO (08:55)
[2025-06-05] MEDS: Rifaximin 550 MG TAB PO ×2 (08:55→19:37)
[2025-06-05] MEDS: Tamsulosin 0.4 MG CAPCR PO (08:55)
[2025-06-05] MEDS: Empaglifozin 25 MG TAB PO (08:56)
[2025-06-05] MEDS: Ferrous Sulfate 325 MG TAB PO (08:56)
[2025-06-05] MEDS: Apixaban 5 MG TAB PO ×2 (08:56→19:36)
[2025-06-05] MEDS: Pantoprazole 40 MG VIAL IVP (08:58)
[2025-06-05] MEDS: Normal Saline Flush 10 ML SYR IVP ×2 (09:02→19:37)
--- NOTE | 2025-06-05 09:13 | PDOC.CMIN ---
Date of service: 06/05/25 Time of Service: 09:13 Care Management Initial Assmt Functional Status/Living Situation Patient Presentation: Merrill was sleeping when CM attempted to meet with him. He is a resident of [facility] and is admitted to the hospital quite frequently, this being his 3rd admission within 30 days. Merrill was at [facility] from 05/15-05/16/25 with CHF, 05/29/27 with a SBO and again for a SBO on 06/04/25. Palliative consult may be appropriate, to discuss goals of care. Town of Residence: [facility] Resides with: Other (SNF) Significant Other/Family: Local Natural Supports: Cely and son Scott Instrumental Activities of Daily Living (ADLs): Requires support Medications Medication Management: No Issues/Barriers identified Physical Functioning/Mobility Assistive Device: walker and w/c Advance Directives Advance Directives: Do you have an Advance Directive: Y 08/05/24, 02:24 AD On File at [facility]: N 08/05/24, 10:22 Date Asked 06/04/25 06/04/25, 02:19 AD Date Reviewed COLST On File at [facility] No 12/04/23, 16:58 COLST Date Scanned Code Status Resuscitation Status Full Code Insurance Coverage/Financial Issues [place]: [place] Financial Issues: None identified Care Team Visit Care Team Role Provider Type Bella Santo NP NURSE PRACTITIONER Maryann Whitt Primary Care Provider NURSE PRACTITIONER Daniel Rodney MD Other Providers [facility] STAFF PHYSICIAN Kevin Morrissey MD Emergency Provider [facility] STAFF PHYSICIAN Elia Arizmendi Admit Provider [facility] STAFF PHYSICIAN Attending Provider Discharge Potential Discharge Needs: PCP F/U Appt and Surgical F/U Appt Anticipated Barriers to Discharge: None Identified Patient/Family Education Needs: Review discharge instructions, discuss Ask Me Three Transportation: RCT Plan: Anticipate Merrill will transfer back to [facility] when he is medically stable. He will follow up with the facility providers and plan of care and transsport via RCT coordinated by CM. CM will follow. Social Determinants of Health Screening Will the Patient Participate in the Screening?: Declined to provide PFSH All Active Problems (Updated 06/04/25 @ 18:53 by Daniel Rodney MD) Delayed gastric transit (Acute) Small bowel obstruction (Acute) Hypothyroidism (acquired) (Chronic) Depression (Chronic) Anemia (Chronic) History of creation of ostomy (Acute) Contusion (Acute) Liver mass (Acute) Vomiting (Acute) Abdominal pain (Acute) Elevated lactic acid level (Acute) Acute UTI (Acute) Symptomatic bradycardia (Acute) Acute hypokalemia (Acute) Family conflict (Acute) Chest pain in adult (Acute) Fall (Acute) Chronic low back pain (Chronic) Hematuria (Acute) Leukopenia (Acute) Oral candidiasis (Acute) Sepsis syndrome (Acute) Gram-negative bacteremia (Acute) Cellulitis (Acute) Lower urinary obstructive symptom (Acute) Anemia of chronic disease (Acute) Ventricular ectopy (Acute) Sinus bradycardia (Acute) Leukocytosis (Acute) Hypertension (Chronic) Elevated lactic acid level (Acute) CHF (congestive heart failure) (Chronic) No-show for appointment (Acute) Left rotator cuff tear (Acute) Acute UTI (urinary tract infection) (Acute) Weakness (Acute) Non-ST elevation MO (NSTEMI) (Acute) Pre-syncope (Acute) Frequent falls (Acute) Orthostatic hypotension (Acute) Hypokalemia (Acute) Bradycardia (Acute) Multiple falls (Acute) Acute metabolic encephalopathy (Acute) Medication monitoring encounter (Acute) Chest pain (Acute) CHF (congestive heart failure) (Chronic) EF 25%- 2023 Medical History Chronic GERD BPH (benign prostatic hyperplasia) Major depression, recurrent, chronic Severe obesity (BMI >= 40) Diabetes mellitus treated with oral medication Anemia associated with acute blood loss Acute on chronic HFrEF (heart failure with reduced ejection fraction) Anemia Splenomegaly Thrombocytopenia Colostomy care Thrombocytopenia Chronic atrial fibrillation Type 2 diabetes mellitus CHF exacerbation ANETTE (obstructive sleep apnea) Chronic heart failure with reduced ejection fraction (HFrEF, <= 40%) Anemia Cirrhosis of liver without ascites Diabetes PAF (paroxysmal atrial fibrillation) Goals of care, counseling/discussion Lactic acidosis UTI (urinary tract infection) Urinary tract infection Advanced care planning/counseling discussion Palliative care encounter Followed by [facility] Bowel obstruction Sepsis Heart failure with reduced ejection fraction Hypothyroidism Small bowel obstruction Lactic acid acidosis Creatinine elevation Acute UTI Anticoagulated COVID Recurrent intestinal obstruction History of colon cancer Chronic anticoagulation Portal hypertension Cirrhosis TIPs placed (?when, [facility]? 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, Dx [facility] as per pt Non-insulin dependent type 2 diabetes mellitus Incontinence Hypertension Scleral icterus Surgical History S/P TIPS (transjugular intrahepatic portosystemic shunt) H/O left hemicolectomy Colostomy in place Social History Smoking/Tobacco Use Status: Former Tobacco Use Smoking risk assessment performed?: Yes Alcohol Intake: former Drug use: Never Substance use type: does not use Housing: [facility] Do you feel safe at home: Yes Do you feel safe in your relationship?: Yes Additional Social history: from [facility] Readmission Within the Past 30 Days Yes or No: Yes
[2025-06-05] MEDS: Venlafaxine 150 MG CAPCR PO (10:05)
[2025-06-05] MEDS: Venlafaxine 75 MG CAPCR PO (10:05)
--- NOTE | 2025-06-05 10:26 | W.PM.PROGNOT ---
Date of Service Date of service: 06/05/25 Time of Service: 10:26 Assessment and Plan Assessment and plan (1) SBO (small bowel obstruction): Status: Resolved Assessment and plan: stable since ngt removed this morning advance diet as tolerated. Surgical consult (2) GIB (gastrointestinal bleeding): Assessment and plan: chronic, no blood transfusion needed hemoglobin stable continue PPI and monitoring (3) CHF (congestive heart failure): Status: Chronic Assessment and plan: last Echo 03/20 LVEF 35% with global hypokinesis; improved from January 2024, with LVEF 25 to 35% Ongoing home medicine with Losartan, Aldactone, Jardiance . lasix has been on hold in setting of SBO, will resume when appropriate Stable (4) Acute kidney injury: Status: Resolved Assessment and plan: Cr 1.1- baseline no RODOLFO at this time (5) Lower urinary obstructive symptom: Status: Acute Assessment and plan: Ongoing home dose of flomax (6) Anemia of chronic disease: Status: Acute Assessment and plan: stable hgb 9.8 - will continue to monitor CBC in AM (7) Non-insulin dependent type 2 diabetes mellitus: Assessment and plan: diabetic diet with blood sugar check and sliding scale coverage as needed. Holding metformin and resume on discharge A1C was 6.3 on May 23, 2025 (8) Depression: Status: Chronic Assessment and plan: stable, continue home meds (9) Hypothyroidism (acquired): Status: Chronic Assessment and plan: on home dose synthroid (10) PAF (paroxysmal atrial fibrillation): Assessment and plan: Eliquis home dose, no beta blockers No Need for pharmocological DVT prophylaxis Discussed with Dr. Arizmendi Subjective Subjective Patient reports: no new complaints, feels better and afebrile; denies shortness of breath Exam Narrative Exam Narrative: Chronically ill-appearing male of stated age no acute distress head is atraumatic eyes nonicteric noninjected Cardiovascular irregular rate and rhythm respirations even and unlabored breath sounds diminished in the bases abdomen obese soft nontender ostomy intact, full range of motion to extremities. Trace edema to bilateral lower extremities Neurologic awake alert oriented no focal deficits Psychiatric normal mood and affect Objective Last Vital Signs Temp 36.5 C 06/05/25 07:22 Pulse 67 06/05/25 07:22 Resp 16 06/05/25 07:22 BP 128/63 06/05/25 07:22 Pulse Ox 92 06/05/25 07:22 Time Spent with Patient Time Spent with Patient: 35-49 minutes Time was spent: preparing to see the patient(eg.review tests), obtaining and/or reviewing separately otained hiistory, ordering medications,tests, procedures and indepentently interpreting results
--- NOTE | 2025-06-05 13:38 | W.PM.PROGNOT ---
Date of Service Date of service: 06/05/25 Time of Service: 13:38 Assessment and Plan Assessment and plan (1) Abdominal pain: Status: Acute Assessment and plan: Patient does have some chronic dilation of his small intestine from previous surgeries. On this particular admission his findings were more consistent with an intestinal ileus, and slow transit, rather than small bowel obstruction. His KUB today does not show an obstructive pattern. Follow-up when he feels well, can send him back home. Subjective Subjective Interval history since last seen: Mr. Orellana today reporting improvement in abdominal discomfort, and good output from colostomy. He has no nausea no vomiting, ate a full diet today, including pork chop. Exam Narrative Exam Narrative: Pleasant adult male he is awake and alert, in no discomfort today. His abdomen today is soft and nontender. Vital signs are normal. Objective Last Vital Signs Temp 36.5 C 06/05/25 07:22 Pulse 67 06/05/25 07:22 Resp 16 06/05/25 07:22 BP 128/63 06/05/25 07:22 Pulse Ox 92 06/05/25 07:22 Time Spent with Patient Time Spent with Patient: <25 minutes Time was spent: indepentently interpreting results
[2025-06-05 19:16] VITALS: BP 126/69; PULSE 83; RESP 14; TEMP 36.8; O2SAT 96
[2025-06-05] MEDS: Prazosin 5 MG CAP 10 MG PO (19:36)
[2025-06-05] MEDS: Melatonin 3 MG TAB 6 MG PO (19:37)
[2025-06-05] MEDS: Insulin Aspart 300 UNITS/3 ML PEN SC (20:37)
[2025-06-05 21:21] LABS: Abs Immature Grans 0.01 10^3/uL (0.0-0.06); HCT 28.4 % (40.0-50.0); HGB 8.3 g/dL (13.5-17.5); Immature Grans % 0.3 %; MCH 23.8 pg (27.0-33.0); MCHC 29.2 % (32.0-36.0); MCV 81 fL (80-95); MPV 10.4 fL (8.0-11.0); RBC 3.49 10^6/uL (4.36-5.78); RDW 25.1 % (11.8-14.1); RDW-SD 72.2 fL; WBC 2.99 10^3/uL (4.4-10.8)
[2025-06-05 21:29] LABS: Anion Gap 9.0 mmol/L (3-11); BUN 17 mg/dL (7-18); CO2 27.0 mmol/L (21.0-32.0); Calcium 7.8 mg/dL (8.5-10.1); Chloride 108 mmol/L (98-107); Estimated GFR 51.45 (mL/min/1.73m2); Glucose 175 mg/dL (74-106); Magnesium 1.6 mg/dL (1.8-2.4); Potassium 3.5 mmol/L (3.5-5.1); Sodium 144 mmol/L (136-145)
[2025-06-05 21:38] LABS: Anisocytosis 1+; Hypochromasia 1+; Platelet Count 84 10^3/uL (130-400)
[2025-06-05 21:39] LABS: Poikilocytes 1+
[2025-06-06] MEDS: Levothyroxine 100 MCG TAB PO (06:03)
[2025-06-06] MEDS: MAGNESIUM SULFATE 2 GM/50 ML BAG IV_INF (06:34)
[2025-06-06 07:25] VITALS: BP 126/58; PULSE 75; RESP 18; TEMP 36.8; O2SAT 94
[2025-06-06] MEDS: Losartan 50 MG TAB PO (08:20)
[2025-06-06] MEDS: Rifaximin 550 MG TAB PO (08:21)
[2025-06-06] MEDS: Spironolactone 25 MG TAB 12.5 MG PO (08:21)
[2025-06-06] MEDS: Venlafaxine 150 MG CAPCR PO (08:22)
[2025-06-06] MEDS: Tamsulosin 0.4 MG CAPCR PO (08:23)
[2025-06-06] MEDS: Normal Saline Flush 10 ML SYR IVP (08:23)
[2025-06-06] MEDS: Venlafaxine 75 MG CAPCR PO (08:23)
[2025-06-06] MEDS: Empaglifozin 25 MG TAB PO (08:23)
[2025-06-06] MEDS: Apixaban 5 MG TAB PO (08:24)
[2025-06-06] MEDS: Ferrous Sulfate 325 MG TAB PO (08:24)
--- NOTE | 2025-06-06 08:30 | DI.RAD_ITS ---
Exam(s) XR ABDOMEN FLAT PLATE EXAM: 2D digital imaging was performed. CLINICAL HISTORY: Abdominal pain. COMPARISON: CR XR ABDOMEN FLAT PLATE from 06/05/2025 TECHNIQUE: Supine views of the abdomen performed. FINDINGS: BOWEL GAS PATTERN: Nondistended. Further clearing of previously administered oral contrast. Left lower quadrant ostomy. TIPS again noted. Surgical clips in pelvis. CALCIFICATIONS: No radiopaque calcifications. OSSEOUS STRUCTURES: Unremarkable degenerative changes are noted in the spine and hips. Visualized lung bases: Clear. IMPRESSION: 1. Nonobstructive bowel gas pattern. 2. No radiopaque calculi. DATA REPOSITORY: RADIATION DOSE DELIVERED:
--- NOTE | 2025-06-06 09:06 | CMPROGNOTE_ITS ---
Date of service: 06/06/25 Time of Service: 09:06 Care Management Progress Note Discharge Potential Discharge Needs: Other (SNF) Anticipated Barriers to Discharge: None Identified Patient/Family Education Needs: Review discharge instructions, discuss Ask Me Three Transportation: RCT Plan: Anticipate Merrill will transfer back to [facility] for [facility] Rehab when he is medically stable. He will follow up with the facility providers and plan of care and transport via RCT coordinated by CM. CM will follow and continue to support discharge planning. Social Determinants of Health Screening Will the Patient Participate in the Screening?: Declined to provide
[2025-06-06 10:03] LABS: Abs Immature Grans 0.01 10^3/uL (0.0-0.06); HCT 30.2 % (40.0-50.0); HGB 8.6 g/dL (13.5-17.5); Immature Grans % 0.4 %; MCH 23.4 pg (27.0-33.0); MCHC 28.5 % (32.0-36.0); MCV 82 fL (80-95); MPV 10.8 fL (8.0-11.0); RBC 3.67 10^6/uL (4.36-5.78); RDW 24.7 % (11.8-14.1); RDW-SD 72.9 fL; WBC 2.54 10^3/uL (4.4-10.8)
[2025-06-06 10:26] LABS: Anion Gap 7.2 mmol/L (3-11); BUN 16 mg/dL (7-18); CO2 27.8 mmol/L (21.0-32.0); Calcium 7.9 mg/dL (8.5-10.1); Chloride 107 mmol/L (98-107); Estimated GFR 51.45 (mL/min/1.73m2); Glucose 217 mg/dL (74-106); Potassium 3.6 mmol/L (3.5-5.1); Sodium 142 mmol/L (136-145)
[2025-06-06 10:42] LABS: Platelet Count 82 10^3/uL (130-400)
[2025-06-06 10:43] LABS: Anisocytosis 2+; Microcytosis 1+; Ovalocytes 2+
[2025-06-06] MEDS: Insulin Aspart 300 UNITS/3 ML PEN SC (11:51)
--- NOTE | 2025-06-06 12:21 | CMDISCH_ITS ---
Date of service: 06/06/25 Time of Service: 12:21 LACE Index Scoring Tool Questions: Length of Stay (in days): 2 Was the patient admitted via the E.D.?: Yes Comorbidities: Previous M.I., Diabetes w/o Complication, Congestive Heart Failure, Chronic Pulmonary Disease and Liver or Renal Disease E.D. Visits: 11 Answers: Total Score: 14 Risk of Readmission: High Risk Care Management Discharge Plan Reason for Hospitalization: SBO Discharge Plan: Merrill will be discharged back to [facility] for [facility] Rehab. He will follow up with the facility providers and plan of care and transport via RCT. Patient/Family Education Needs: review of discharge instructions, limitations, follow up plan and discuss Ask Me Three Services Needed at Discharge: Transportation SDOH Health Related Social Needs: Health related social needs transpo insecurity Health related social needs details sometimes has trou ble getting a ride to places - has to wait on son to be available
--- NOTE | 2025-06-06 12:36 | PDOC.CMPRO ---
Date of service: 06/06/25 Time of Service: 12:36 Care Management Progress Note Progress Note Text Progress Note Text: Merrill was sitting up in bed when CM met with him. He was in good spirits and engaged readily with CM. Merrill has been in and out of the hospital frequently over the past couple of years. He has DM, CHF, ANETTE, chronic hepatitis and other co-morbidities. He has maintained a full code status throughout this period. CM discussed this with him today after he made some vague comments about not wanting to live. Merrill informed CM that the reason he hasn't changed his code status is because his Cely won't let him. She does not want him to . He stated that his preference would be to be left alone if his heart stops beating or he stops breathing. He indicated that intubation and CPR would not be his choice. RICHARD discussed Palliative Care with Merrill and he agreed to have a consult placed. He has seen Dr. Damian in the past, but it has been almost a year. A Palliative Care referral will be sent for outpatient followup. Discharge Potential Discharge Needs: Other (SNF) Anticipated Barriers to Discharge: None Identified Patient/Family Education Needs: Review discharge instructions, discuss Ask Me Three Transportation: RCT Plan: Merrill will be transferred back to [facility] later today. He will transport via RCT. Social Determinants of Health Screening Will the Patient Participate in the Screening?: Declined to provide
--- NOTE | 2025-06-06 12:45 | DSE_ITS ---
Date of service: 06/06/25 Time of Service: 12:45 DS: Diagnosis Discharge Diagnosis (1) SBO (small bowel obstruction): Status: Resolved (2) GIB (gastrointestinal bleeding): (3) CHF (congestive heart failure): Status: Chronic (4) Acute kidney injury: Status: Resolved (5) Lower urinary obstructive symptom: Status: Acute (6) Anemia of chronic disease: Status: Acute (7) Non-insulin dependent type 2 diabetes mellitus: (8) Depression: Status: Chronic (9) Hypothyroidism (acquired): Status: Chronic (10) PAF (paroxysmal atrial fibrillation): Discharge Plan Disposition Patient Disposition: Shelter Facility(SNF) Condition: Improving Discharge Details Reason For Visit: SBO Admit Date/Time: 06/04/25 09:05 Admit Provider: Elia Arizmendi Attending Provider: Elia Arizmendi Primary Care Provider: Maryann Whitt Hospital Course Hospital Course: The patient has a known history of 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 He was admitted with abdominal distension and decreased bowel function. On this admission, clinical findings and imaging were more consistent with intestinal ileus and slow transit rather than a small bowel obstruction. KUB obtained 06/05 showed no obstructive pattern. Supportive management was provided, including bowel rest, IV fluids, and gradual advancement of diet as tolerated. His symptoms improved, and he remained hemodynamically stable. Pertinent Imaging: * KUB: No obstructive pattern observed; findings consistent with ileus. Condition at Discharge: Stable, tolerating oral intake, passing flatus and stool, no abdominal pain. Discharge Plan: * Follow-up with primary care provider or surgeon as needed. * Resume normal activities as tolerated. * Monitor for signs of obstruction (abdominal pain, vomiting, no passage of stool or flatus) and return to ED if these occur. Home Meds and New Rx's Prescriptions: Continued pantoprazole 40 mg Tablet,Delayed Release (Dr/Ec) 40 mg PO DAILY Eliquis 5 mg Tablet 5 mg PO BID Patient Comments: taking per pt nitroglycerin 0.4 mg Tablet, Sublingual 0.4 mg sublingual Q5 MIN PRN X3 PRNQty: 30 0RF rifaximin 550 mg Tablet 550 mg PO BID prazosin 5 mg capsule 10 mg PO QPM tamsulosin 0.4 mg Capsule 0.4 mg PO DAILY metformin 500 mg tablet extended release 24hr 1,000 mg PO BID bisacodyl [Dulcolax (bisacodyl)] 10 mg suppository 10 mg OR DAILY PRN ondansetron 4 mg tablet,disintegrating 4 mg PO Q6H PRN potassium chloride 20 mEq tablet extended release 20 meq PO DAILY spironolactone [Aldactone] 25 mg tablet 12.5 mg PO DAILY venlafaxine [Effexor XR] 75 mg capsule,extended release 24hr 75 mg PO DAILY Patient Comments: takes w/150mg capsule for total dose of 225mg daily lactulose 20 gram/30 mL Solution 15 ml PO TID Rx Instructions: to maintain colostomy output of 3-4 bags per day diclofenac sodium [Arthritis Pain (diclofenac)] 1 % gel 2 g topical TID Rx Instructions: apply to single elbow, wrist or hand; for hand includes palm/fingers/back of hand melatonin 3 mg tablet 6 mg PO HS Patient Comments: TAKE ONE TABLET BY MOUTH AT BEDTIME ferrous sulfate 325 mg (65 mg iron) Tablet 325 mg PO DAILY Qty: 0 0RF empagliflozin 25 mg Tablet 25 mg PO DAILY levothyroxine 200 mcg Tablet 100 mcg PO QAM Qty: 0 0RF venlafaxine 150 mg capsule,extended release 24hr 150 mg PO DAILY acetaminophen [Tylenol] 325 mg Capsule 650 mg PO Q6H MDD 3000 PRN losartan [Cozaar] 50 mg tablet 50 mg PO BID furosemide [Lasix] 40 mg tablet See Rx Instructions .ROUTE .COMPLEX Qty: 60 0RF Rx Instructions: 40 mg every morning and 20 mg early afternoon diclofenac sodium [Arthritis Pain (diclofenac)] 1 % gel 2 g topical TID Rx Instructions: apply to single elbow, wrist or hand; for hand includes palm/fingers/back of hand zinc oxide 10 % cream 1 applic topical BID Discharge Instructions Additional Instructions: * Monitor bowel function closely: * Assess for abdominal distension, discomfort, nausea, vomiting. * Monitor for passage of flatus and stool daily. * Diet: * Start with a regular diet as tolerated. * Encourage small, frequent meals if appetite is reduced. * Hydration: * Ensure adequate fluid intake to prevent dehydration. * Offer fluids frequently throughout the day. * Activity: * Encourage ambulation and mobility as tolerated to help bowel motility. * Medication: * Administer prescribed medications as directed. * Avoid constipating medications if possible; monitor for side effects. * Signs of concern requiring urgent attention: * New or worsening abdominal pain or distension. * Vomiting, especially if persistent. * No passage of stool or gas for more than 24 hours. * Fever or signs of infection. * Communication: * Notify primary care provider or on-call physician promptly if any signs of obstruction or worsening symptoms occur. Activity:: Activity as Tolerated Equipment/Supplies:: No Equipment Needed Diet:: As Tolerated Discharge Orders Discharge Orders: Discharge Order (Routine); Ordered 06/06/25 Ordered By: Sydni Mckeon DS: Summary Time Spent with Patient providing and/or coordinating discharge services: Greater than 30 minutes Status at Discharge Functional status at discharge: uses cane/walker Overall status at discharge: patient is back to baseline Mental Status: mental status grossly normal Speech and Movement: speech and movement normal Mood: congruent mood Affect: normal affect Quality:SDOH Health Related Social Needs: Health related social needs transpo insecurity Health related social needs details sometimes has trou ble getting a ride to places - has to wait on son to be available Exam Narrative Exam Narrative: * General: Chronically ill-appearing male of stated age, no acute distress. * Head: Atraumatic. * Eyes: Nonicteric, noninjected. * Cardiovascular: Irregular rate and rhythm. * Respiratory: Even and unlabored respirations; breath sounds diminished at the lung bases. * Abdomen: Obese, soft, nontender; ostomy intact. * Extremities: Full range of motion; trace edema noted in bilateral lower extremities. * Neurologic: Awake, alert, oriented; no focal deficits. * Psychiatric: Normal mood and affect. Psych Mental Status: mental status grossly normal Speech and Movement: speech and movement normal Mood: congruent mood Affect: normal affect DS: Data Vitals/I&O Vitals and I&O: Vital Signs Temperature 36.8 C 06/06/25 07:25 Temperature Source Temporal Artery Scan 06/06/25 07:25 Pulse 75 06/06/25 07:25 Pulse Rhythm Regular 06/04/25 10:39 Pulse Strength Normal 06/04/25 10:39 Respiratory Rate 18 06/06/25 07:25 Respiratory Effort Normal 06/04/25 11:51 Respiratory Depth Normal 06/04/25 11:51 Respiratory Pattern Normal 06/04/25 10:39 Blood Pressure 126/58 L 06/06/25 07:25 Blood Pressure Mean 80 06/06/25 07:25 Blood Pressure Position Supine 06/04/25 10:39 Pulse Oximetry 94 06/06/25 07:25 Oxygen Delivery Method Room Air 06/06/25 07:25 Oxygen Flow Rate 0 06/06/25 07:25 Pain Level 0 06/06/25 08:34 Comment rn notified 06/06/25 07:25 Comment 2L NC 06/04/25 08:00 Intake & Output 06/05/25 06/06/25 06/06/25 23:59 11:59 23:59 Intake Total 720 / 730 840 / 840 Output Total 275 / 525 150 / 150 Balance 445 / 205 840 / 690 -150 / 690 Weight 97.205 kg 98 kg Intake: IV 60 / 60 Oral 720 / 720 780 / 780 Output: Urine 275 / 275 150 / 150 Other: Urine Color Light Mady Light Mady Yellow Urine Appearance Clear Clear Clear Urine Odor Normal None None Stool Size Small Stool Characteristics Soft Liquid Data Completed and Pending Labs on day of discharge: Labs from last 24 hours 06/06/25 06/05/25 09:52 21:00 WBC 2.54 L 2.99 L RBC 3.67 L 3.49 L Hgb 8.6 L 8.3 L Hct 30.2 L 28.4 L MCV 82 81 MCH 23.4 L 23.8 L MCHC 28.5 L 29.2 L RDW 24.7 H 25.1 H Plt Count 82 L 84 L MPV 10.8 10.4 Immature Gran % 0.4 0.3 Neutrophils % 64.1 60.5 Lymphocytes % 15.4 18.7 Monocytes % 7.9 10.4 Eosinophils % 11.0 9.4 Basophils % 1.2 0.7 Nucleated RBC % 0.0 0.0 Absolute Neutrophils 1.63 1.81 Absolute Lymphocytes 0.39 L 0.56 L Absolute Monocytes 0.20 0.31 Absolute Eosinophils 0.28 0.28 Absolute Basophils 0.03 0.02 RBC Morphology See Below See Below Hypochromasia 1+ Poikilocytosis 1+ Anisocytosis 2+ 1+ Microcytosis 1+ Ovalocytes 2+ Sodium 142 144 Potassium 3.6 3.5 Chloride 107 108 H Carbon Dioxide 27.8 27.0 Anion Gap 7.2 9.0 BUN 16 17 Creatinine 1.4 H 1.4 H Est GFR (CKD-EPI 2020) 51.45 51.45 Glucose 217 H 175 H Calcium 7.9 L 7.8 L Magnesium 1.6 L PFS All Active Problems (Updated 06/04/25 @ 18:53 by Daniel Rodney MD) Delayed gastric transit (Acute) Small bowel obstruction (Acute) Hypothyroidism (acquired) (Chronic) Depression (Chronic) Anemia (Chronic) History of creation of ostomy (Acute) Contusion (Acute) Liver mass (Acute) Vomiting (Acute) Abdominal pain (Acute) Elevated lactic acid level (Acute) Acute UTI (Acute) Symptomatic bradycardia (Acute) Acute hypokalemia (Acute) Family conflict (Acute) Chest pain in adult (Acute) Fall (Acute) Chronic low back pain (Chronic) Hematuria (Acute) Leukopenia (Acute) Oral candidiasis (Acute) Sepsis syndrome (Acute) Gram-negative bacteremia (Acute) Cellulitis (Acute) Lower urinary obstructive symptom (Acute) Anemia of chronic disease (Acute) Ventricular ectopy (Acute) Sinus bradycardia (Acute) Leukocytosis (Acute) Hypertension (Chronic) Elevated lactic acid level (Acute) CHF (congestive heart failure) (Chronic) No-show for appointment (Acute) Left rotator cuff tear (Acute) Acute UTI (urinary tract infection) (Acute) Weakness (Acute) Non-ST elevation RI (NSTEMI) (Acute) Pre-syncope (Acute) Frequent falls (Acute) Orthostatic hypotension (Acute) Hypokalemia (Acute) Bradycardia (Acute) Multiple falls (Acute) Acute metabolic encephalopathy (Acute) Medication monitoring encounter (Acute) Chest pain (Acute) CHF (congestive heart failure) (Chronic) EF 25%- 2023 Medical History Chronic GERD BPH (benign prostatic hyperplasia) Major depression, recurrent, chronic Severe obesity (BMI >= 40) Diabetes mellitus treated with oral medication Anemia associated with acute blood loss Acute on chronic HFrEF (heart failure with reduced ejection fraction) Anemia Splenomegaly Thrombocytopenia Colostomy care Thrombocytopenia Chronic atrial fibrillation Type 2 diabetes mellitus CHF exacerbation ANETTE (obstructive sleep apnea) Chronic heart failure with reduced ejection fraction (HFrEF, <= 40%) Anemia Cirrhosis of liver without ascites Diabetes PAF (paroxysmal atrial fibrillation) Goals of care, counseling/discussion Lactic acidosis UTI (urinary tract infection) Urinary tract infection Advanced care planning/counseling discussion Palliative care encounter Followed by [facility] Bowel obstruction Sepsis Heart failure with reduced ejection fraction Hypothyroidism Small bowel obstruction Lactic acid acidosis Creatinine elevation Acute UTI Anticoagulated COVID Recurrent intestinal obstruction History of colon cancer Chronic anticoagulation Portal hypertension Cirrhosis TIPs placed (?when, [facility]? 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, Dx [facility] as per pt Non-insulin dependent type 2 diabetes mellitus Incontinence Hypertension Scleral icterus Surgical History S/P TIPS (transjugular intrahepatic portosystemic shunt) H/O left hemicolectomy Colostomy in place Social History Smoking/Tobacco Use Status: Former Tobacco Use Smoking risk assessment performed?: Yes Alcohol Intake: former Drug use: Never Substance use type: does not use Housing: shelter Do you feel safe at home: Yes Do you feel safe in your relationship?: Yes Additional Social history: from [facility] Time Spent with Patient Time Spent with Patient: 45-69 minutes Time was spent: preparing to see the patient(eg.review tests), ordering medications,tests, procedures, referring, communicating with other health client care coordinator, indepentently interpreting results, counseling the patient and care coordination
== END 2025-06-06 14:10 | disposition skilled nursing facility (03) | DRG 389 ==
LOC: ER 07:48 → MS 10:43
PROVIDERS: Nurse Practitioner Acute Care; Student in an Organized Health Care Education/Training Program; Admitting Provider Family Medicine; Emergency Provider Emergency Medicine; PCP Nurse Practitioner Adult Health; Responsible Provider Nurse Practitioner Family; Visit Provider Family Medicine
DX: K56.7 Ileus, unspecified (principal); F33.9 Major depressive disorder, recurrent, unspecified; I50.22 Chronic systolic (congestive) heart failure; K76.6 Portal hypertension; K92.2 Gastrointestinal hemorrhage, unspecified; I13.0 Hypertensive heart and chronic kidney disease with heart failure and stage 1 through stage 4 chronic kidney disease, or unspecified chronic kidney disease; N13.8 Other obstructive and reflux uropathy; E03.9 Hypothyroidism, unspecified; I48.0 Paroxysmal atrial fibrillation; G89.29 Other chronic pain; I25.2 Old myocardial infarction; R29.6 Repeated falls; R00.1 Bradycardia, unspecified; K21.9 Gastro-esophageal reflux disease without esophagitis; I25.10 Atherosclerotic heart disease of native coronary artery without angina pectoris; K74.60 Unspecified cirrhosis of liver; E66.01 Morbid (severe) obesity due to excess calories; N18.9 Chronic kidney disease, unspecified; D63.8 Anemia in other chronic diseases classified elsewhere; N40.1 Benign prostatic hyperplasia with lower urinary tract symptoms; G47.33 Obstructive sleep apnea (adult) (pediatric); D69.6 Thrombocytopenia, unspecified; D73.2 Chronic congestive splenomegaly; Z93.3 Colostomy status; Z90.49 Acquired absence of other specified parts of digestive tract; Z79.01 Long term (current) use of anticoagulants; Z59.82 Transportation insecurity; Z79.899 Other long term (current) drug therapy; Z85.048 Personal history of other malignant neoplasm of rectum, rectosigmoid junction, and anus; Z79.84 Long term (current) use of oral hypoglycemic drugs; Z68.34 Body mass index [BMI] 34.0-34.9, adult
CPT/HCPCS: 00123; 36415; 71045; 80048; 80053; 96374; 96375; 99285; 74018; 74176; 83735; 85025; 99223; 99233; 99239; J0131; J1815; J2270; J2405; J2470; J2765; J3475

== ENCOUNTER 2025-07-11 14:52 | Emergency (ER) | payer OTHER, SELFPAY ==
[2025-07-11 14:56] VITALS: BP 128/62; PULSE 80; RESP 16; TEMP 36.6; O2SAT 98
--- NOTE | 2025-07-11 15:02 | W.ED.GENAD ---
Discharge Plan Disposition Patient Disposition: Home Condition: Good Discharge Details Clinical Impression: Stomach ache, Encounter for ostomy care education Primary Care Provider: Maryann Whitt ED Provider: Js Johns Home Meds and New Rx's Prescriptions: No Action pantoprazole 40 mg Tablet,Delayed Release (Dr/Ec) 40 mg PO DAILY Eliquis 5 mg Tablet 5 mg PO BID Patient Comments: taking per pt nitroglycerin 0.4 mg Tablet, Sublingual 0.4 mg sublingual Q5 MIN PRN X3 PRNQty: 30 0RF rifaximin 550 mg Tablet 550 mg PO BID prazosin 5 mg capsule 10 mg PO QPM tamsulosin 0.4 mg Capsule 0.4 mg PO DAILY metformin 500 mg tablet extended release 24hr 1,000 mg PO BID bisacodyl [Dulcolax (bisacodyl)] 10 mg suppository 10 mg AK DAILY PRN ondansetron 4 mg tablet,disintegrating 4 mg PO Q6H PRN potassium chloride 20 mEq tablet extended release 20 meq PO DAILY spironolactone [Aldactone] 25 mg tablet 12.5 mg PO DAILY venlafaxine [Effexor XR] 75 mg capsule,extended release 24hr 75 mg PO DAILY Patient Comments: takes w/150mg capsule for total dose of 225mg daily lactulose 20 gram/30 mL Solution 15 ml PO TID Rx Instructions: to maintain colostomy output of 3-4 bags per day diclofenac sodium [Arthritis Pain (diclofenac)] 1 % gel 2 g topical TID Rx Instructions: apply to single elbow, wrist or hand; for hand includes palm/fingers/back of hand melatonin 3 mg tablet 6 mg PO HS Patient Comments: TAKE ONE TABLET BY MOUTH AT BEDTIME ferrous sulfate 325 mg (65 mg iron) Tablet 325 mg PO DAILY Qty: 0 0RF empagliflozin 25 mg Tablet 25 mg PO DAILY levothyroxine 200 mcg Tablet 100 mcg PO QAM Qty: 0 0RF venlafaxine 150 mg capsule,extended release 24hr 150 mg PO DAILY acetaminophen [Tylenol] 325 mg Capsule 650 mg PO Q6H MDD 3000 PRN losartan [Cozaar] 50 mg tablet 50 mg PO BID furosemide [Lasix] 40 mg tablet See Rx Instructions .ROUTE .COMPLEX Qty: 60 0RF Rx Instructions: 40 mg every morning and 20 mg early afternoon diclofenac sodium [Arthritis Pain (diclofenac)] 1 % gel 2 g topical TID Rx Instructions: apply to single elbow, wrist or hand; for hand includes palm/fingers/back of hand zinc oxide 10 % cream 1 applic topical BID Discharge Instructions Additional Instructions: At this time your stoma appears stable. There is no evidence of significant prolapse. The bleeding likely occurred from a small episode of prolapse which is resolved. Please avoid any significant bearing down, if you do notice any constipation please take a stool softener. If you notice any worsening of your symptoms, or any new symptoms such as vomiting, diarrhea, fever, chills, shortness of breath, chest pain, numbness, weakness, or fainting , please return immediately to the emergency department for reevaluation. Please follow up with your primary care provider as soon as possible for reassessment and reevaluation. As always, it was a pleasure participating in your medical care today. Referrals: Maryann Whitt [Primary Care Provider, Medicine] [facility] General Date/Time Provider Initiated Documentation: 07/11/25 15:02. HPI Narrative: This 80-year-old male patient with a past medical history of atrial fibrillation on Eliquis and Coreg, HFrEF with an LVEF of 24% on 02/14/2024, insulin-dependent diabetes mellitus, obstructive sleep apnea, coronary artery disease, chronic kidney disease, cirrhosis with recurrent episode of hepatic encephalopathy prior hemicolectomy and TIPS procedure, current colostomy, multiple prior episodes of small bowel obstruction in the past, likely secondary to an adhesion, who presents today for evaluation of stomal pain. Patient states that earlier today he felt that his stoma came out of him a little ways, but then it retracted on its own. After that he became somewhat flush with the external abdominal wall, and he had pain and tenderness there. He has noticed a tiny bit more blood than normal. He denies any fever or chills. He was then brought to the ER for further assessment. At this time he states that it appears more close to his normal baseline, but he was concerned because of the tenderness and symptoms. He denies any hard or constipated stool. He denies any heavy bearing down or Valsalva. He denies any other complaints. Related Data Home Medications ?Medication ?Instructions ?Recorded ?Confirmed apixaban 5 mg tablet (Eliquis) 5 mg PO BID 11/08/22 06/04/25 pantoprazole 40 mg tablet,delayed 40 mg PO DAILY 11/08/22 06/04/25 release nitroglycerin 0.4 mg sublingual 0.4 mg sublingual Q5 MIN PRN X3 02/10/23 06/04/25 tablet PRN #30 tabs empagliflozin 25 mg tablet 25 mg PO DAILY 04/09/23 06/04/25 levothyroxine 200 mcg tablet 100 mcg (1/2 x 200 mcg) PO QAM #0 04/10/23 06/04/25 tabs rifaximin 550 mg tablet 550 mg PO BID 07/07/23 06/04/25 venlafaxine 150 mg 150 mg PO DAILY 03/05/24 06/04/25 capsule,extended release 24 hr acetaminophen 325 mg capsule 650 mg PO Q6H PRN 05/12/24 06/04/25 (Tylenol) prazosin 5 mg capsule 10 mg PO QPM 08/04/24 06/04/25 tamsulosin 0.4 mg capsule 0.4 mg PO DAILY 08/04/24 06/04/25 metformin 500 mg tablet,extended 1,000 mg PO BID 01/17/25 06/04/25 release 24hr (osmotic) bisacodyl 10 mg rectal suppository 10 mg AK DAILY PRN 02/26/25 06/04/25 (Dulcolax (bisacodyl)) lactulose 20 gram/30 mL oral 15 ml PO TID 02/26/25 06/04/25 solution ondansetron 4 mg disintegrating 4 mg PO Q6H PRN 02/26/25 06/04/25 tablet potassium chloride 20 mEq 20 meq PO DAILY 02/26/25 06/04/25 tablet,extended release spironolactone 25 mg tablet 12.5 mg PO DAILY 02/26/25 06/04/25 (Aldactone) venlafaxine 75 mg capsule,extended 75 mg PO DAILY 02/26/25 06/04/25 release 24 hr (Effexor XR) diclofenac sodium 1 % topical gel 2 g topical TID 04/02/25 06/04/25 (Arthritis Pain (diclofenac)) losartan 50 mg tablet (Cozaar) 50 mg PO BID 04/19/25 06/04/25 furosemide 40 mg tablet (Lasix) See Rx Instructions .Route 05/10/25 06/04/25 .COMPLEX #60 tabs melatonin 3 mg tablet 6 mg PO HS 05/15/25 06/04/25 ferrous sulfate 325 mg (65 mg 325 mg PO DAILY #0 tabs 05/16/25 06/04/25 iron) tablet diclofenac sodium 1 % topical gel 2 g topical TID 06/04/25 06/04/25 (Arthritis Pain (diclofenac)) zinc oxide 10 % topical cream 1 applic topical BID 06/04/25 06/04/25 Previous Rx's ?Medication ?Instructions ?Recorded nitroglycerin 0.4 mg sublingual 0.4 mg sublingual Q5 MIN PRN X3 02/10/23 tablet PRN #30 tabs levothyroxine 200 mcg tablet 100 mcg (1/2 x 200 mcg) PO QAM #0 04/10/23 tabs furosemide 40 mg tablet (Lasix) See Rx Instructions .Route 05/10/25 .COMPLEX #60 tabs ferrous sulfate 325 mg (65 mg 325 mg PO DAILY #0 tabs 05/16/25 iron) tablet Allergies Allergy/AdvReac Type Severity Reaction Status Date / Time Penicillins Allergy Mild Itching Verified 06/04/25 02:20 mussels Allergy Anaphylaxis Verified 06/04/25 02:20 morphine AdvReac Severe vomiting Verified 06/04/25 02:20 General Stated Complaint: Abd Prob ANNA: 4 Exam Narrative Exam Narrative: 1.Const: Well-nourished, Well-developed, appearing stated age 2.Eyes: PERRL, no conjunctival injection, and symmetrical lids. 3.ENT: Atraumatic external nose and ears. Moist MM. Neck: Symmetric, trachea midline, No thyromegaly. 4.CVS: +S1/S2, Peripheral pulses 2+ and equal in all extremities. Brisk capillary refill in all extremities. 5.RESP: Unlabored respiratory effort. Clear to auscultation bilaterally. No wheezes rales or rhonchi 6.GI: Soft, Nontender/Nondistended, No hepatosplenomegaly. No guarding or rebound. Stoma demonstrates an intact stoma, some villous process is visually identified. About 85 to 90% of the stoma is normal in appearance, circular and donut shaped aside for a small little quadrant that appears to be slightly more retracted internally. No active bleeding or hemorrhage. Stoma is otherwise pink and moist. No cyanosis or signs of avascularity. Mild tenderness on palpation. 7.MSK: Normocephalic/Atraumatic, Extremities w/o deformity or ttp No cyanosis or clubbing, Normal movement of all extremities 8.Skin: Warm, Dry. No rashes or lesions. 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 Sensation grossly intact, no focal neurologic deficits. 10.Psych: (AAO) x3. Appropriate mood and affect Course Vital Signs Vital signs: Vital Signs Temperature 36.6 C 07/11/25 14:56 Pulse 80 07/11/25 14:56 Respiratory Rate 16 07/11/25 14:56 Blood Pressure 128/62 07/11/25 14:56 Pulse Oximetry 98 07/11/25 14:56 Temperature 36.6 C 07/11/25 14:56 Temperature Source Tympanic 07/11/25 14:56 Pulse 80 07/11/25 14:56 Respiratory Rate 16 07/11/25 14:56 Blood Pressure 128/62 07/11/25 14:56 Blood Pressure Position Sitting 07/11/25 14:56 Pulse Oximetry 98 07/11/25 14:56 Oxygen Delivery Method Room Air 07/11/25 14:56 Oxygen Flow Rate 0 07/11/25 14:56 Pain Level 0 07/11/25 14:56 Medical Decision Making This 80-year-old male patient with a past medical history of atrial fibrillation on Eliquis and Coreg, HFrEF with an LVEF of 24% on 02/14/2024, insulin-dependent diabetes mellitus, obstructive sleep apnea, coronary artery disease, chronic kidney disease, cirrhosis with recurrent episode of hepatic encephalopathy prior hemicolectomy and TIPS procedure, current colostomy, multiple prior episodes of small bowel obstruction in the past, likely secondary to an adhesion, who presents today for evaluation of stomal pain. Patient states that earlier today he felt that his stoma came out of him a little ways, but then it retracted on its own. After that he became somewhat flush with the external abdominal wall, and he had pain and tenderness there. He has noticed a tiny bit more blood than normal. He denies any fever or chills. He was then brought to the ER for further assessment. At this time he states that it appears more close to his normal baseline, but he was concerned because of the tenderness and symptoms. He denies any hard or constipated stool. He denies any heavy bearing down or Valsalva. He denies any other complaints. Stoma demonstrates an intact stoma, some villous process is visually identified. About 85 to 90% of the stoma is normal in appearance, circular and donut shaped aside for a small little quadrant that appears to be slightly more retracted internally. No active bleeding or hemorrhage. Stoma is otherwise pink and moist. No cyanosis or signs of avascularity. Mild tenderness on palpation. Patient otherwise well-appearing. No evidence to suggest active prolapse, incarceration, obstruction, hemorrhage or bleeding. We did contact the surgeon Dr. Berg and discussed the case with him. He does not see an indication at this time for emergent surgery. Neither do I clinically. I do feel that the patient is stable for discharge. Will recommend continued stool softeners if he develops hard stool. Will recommend avoidance of heavy bearing down. Discussed red flags for which to return. I have extensively reviewed the treatment plan and discharge instructions with the patient. I have addressed all patient concerns at this time. The patient was made aware of what symptoms to monitor for that would warrant a return to the emergency department. Discussed the plan with the patient, they demonstrate verbal understanding and agreement with our assessment and plan at this time. The documentation in this chart was dictated using [employer] dictation software. Please excuse any dictation errors. Quality:SDOH Health Related Social Needs: Health related social needs transpo insecurity Health related social needs details sometimes has trouble getting a ride to places - has to wait on son to be available [facility] All Active Problems (Updated 07/11/25 @ 15:45 by Js Johns DO) Encounter for ostomy care education (Acute) Stomach ache (Acute) Delayed gastric transit (Acute) Small bowel obstruction (Acute) Anemia (Chronic) History of creation of ostomy (Acute) Contusion (Acute) Liver mass (Acute) Vomiting (Acute) Elevated lactic acid level (Acute) Acute UTI (Acute) Symptomatic bradycardia (Acute) Acute hypokalemia (Acute) Family conflict (Acute) Chest pain in adult (Acute) Fall (Acute) Chronic low back pain (Chronic) Hematuria (Acute) Leukopenia (Acute) Oral candidiasis (Acute) Sepsis syndrome (Acute) Gram-negative bacteremia (Acute) Cellulitis (Acute) Anemia of chronic disease (Acute) Ventricular ectopy (Acute) Sinus bradycardia (Acute) Leukocytosis (Acute) Hypertension (Chronic) Elevated lactic acid level (Acute) CHF (congestive heart failure) (Chronic) No-show for appointment (Acute) Left rotator cuff tear (Acute) Acute UTI (urinary tract infection) (Acute) Weakness (Acute) Non-ST elevation MD (NSTEMI) (Acute) Pre-syncope (Acute) Frequent falls (Acute) Orthostatic hypotension (Acute) Hypokalemia (Acute) Bradycardia (Acute) Multiple falls (Acute) Acute metabolic encephalopathy (Acute) Medication monitoring encounter (Acute) Chest pain (Acute) Medical History Chronic GERD BPH (benign prostatic hyperplasia) Major depression, recurrent, chronic Severe obesity (BMI >= 40) Diabetes mellitus treated with oral medication Anemia associated with acute blood loss Acute on chronic HFrEF (heart failure with reduced ejection fraction) Anemia Splenomegaly Thrombocytopenia Colostomy care Thrombocytopenia Chronic atrial fibrillation Type 2 diabetes mellitus CHF exacerbation ANETTE (obstructive sleep apnea) Chronic heart failure with reduced ejection fraction (HFrEF, <= 40%) Anemia Cirrhosis of liver without ascites Diabetes PAF (paroxysmal atrial fibrillation) Goals of care, counseling/discussion Lactic acidosis UTI (urinary tract infection) Urinary tract infection Advanced care planning/counseling discussion Palliative care encounter Followed by [facility] Bowel obstruction Sepsis Heart failure with reduced ejection fraction Hypothyroidism Small bowel obstruction Lactic acid acidosis Creatinine elevation Acute UTI Anticoagulated COVID Recurrent intestinal obstruction History of colon cancer Chronic anticoagulation Portal hypertension Cirrhosis TIPs placed (?when, [facility]? 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, Dx as per pt Non-insulin dependent type 2 diabetes mellitus Incontinence Hypertension Scleral icterus Surgical History S/P TIPS (transjugular intrahepatic portosystemic shunt) H/O left hemicolectomy Colostomy in place Social History Smoking/Tobacco Use Status: Former Tobacco Use Smoking risk assessment performed?: Yes Alcohol Intake: former Drug use: Never Substance use type: does not use Housing: long-term Do you feel safe at home: Yes Do you feel safe in your relationship?: Yes Additional Social history: from [facility]
--- NOTE | 2025-07-11 21:30 | NUR.NOTE ---
Nursing Note: accessed chart for patient demographics for EMS
== END 2025-07-11 17:03 | disposition home or self-care (01) ==
PROVIDERS: Emergency Provider Student in an Organized Health Care Education/Training Program; PCP Nurse Practitioner Adult Health
DX: K94.09 Other complications of colostomy (principal); I13.0 Hypertensive heart and chronic kidney disease with heart failure and stage 1 through stage 4 chronic kidney disease, or unspecified chronic kidney disease; I50.22 Chronic systolic (congestive) heart failure; N18.9 Chronic kidney disease, unspecified; E11.22 Type 2 diabetes mellitus with diabetic chronic kidney disease; E03.9 Hypothyroidism, unspecified; I48.0 Paroxysmal atrial fibrillation; Z79.01 Long term (current) use of anticoagulants; I25.10 Atherosclerotic heart disease of native coronary artery without angina pectoris; Z87.891 Personal history of nicotine dependence
CPT/HCPCS: 99283

== ENCOUNTER 2025-07-29 08:16 | Observation (INO) | payer OTHER, SELFPAY ==
[2025-07-29] VITALS (58 sets, daily range): BP systolic 122–182; BP diastolic 48–105; PULSE 69–108; RESP 12–20; TEMP 36.6–37.2; O2SAT 90–96
--- NOTE | 2025-07-29 08:00 | RT.EKG_ITS ---
APPROVED REPORT Exam: Resting ECG Reason for Exam: chest pain Patient Location: E HR:94 bpm ECG Measurements Heart Rate 94 AXIS ND [id number] P [id number] QRSd 119 QRS 68 QT 386 T 269 QTc 478 Conclusion Atrial flutter...A-rate 315 Incomplete left bundle branch block...QRSd>110mS, terminal axis(-90,-1)
--- NOTE | 2025-07-29 08:15 | DI.RAD_ITS ---
Exam(s) XR PORTABLE CHEST AP EXAM: XR PORTABLE CHEST AP CLINICAL HISTORY: Chest pain. TECHNIQUE: 2D digital imaging was performed. COMPARISON: CT CT ABDOMEN PELVIS WO from 06/04/2025 CR XR PORTABLE CHEST AP POST LINE from 06/04/2025 FINDINGS: Single AP portable view. Heart size is mildly prominent.. The mediastinum is not widened. Mild pulmonary venous hypertension pattern without airspace pulmonary edema. No obvious pleural effusions evident on this portable AP view. IMPRESSION: Mildly enlarged heart size. Pulmonary venous hypertension pattern without airspace pulmonary edema.Although there are no obvious pleural effusions, please note that recent CT scan 06/04/2025 revealed moderate size bilateral pleural effusions and infiltrates in both lung bases. These can be hidden from view on this single AP portable view of the chest. Recommend nonportable PA and lateral views when clinically possible. DATA REPOSITORY: RADIATION DOSE DELIVERED:
--- NOTE | 2025-07-29 08:24 | W.ED.GENAD ---
Discharge Plan Disposition Patient Disposition: Admit to [facility] Condition: Serious Discharge Details Clinical Impression: Anemia of chronic disease, CHF (congestive heart failure), Hepatic encephalopathy, Acute UTI Primary Care Provider: Maryann Whitt ED Provider: Ciarra Torres [place] Meds and New Rx's Prescriptions: No Action pantoprazole 40 mg Tablet,Delayed Release (Dr/Ec) 40 mg PO DAILY Eliquis 5 mg Tablet 5 mg PO BID Patient Comments: taking per pt nitroglycerin 0.4 mg Tablet, Sublingual 0.4 mg sublingual Q5 MIN PRN X3 PRNQty: 30 0RF rifaximin 550 mg Tablet 550 mg PO BID prazosin 5 mg capsule 10 mg PO QPM tamsulosin 0.4 mg Capsule 0.4 mg PO DAILY metformin 500 mg tablet extended release 24hr 1,000 mg PO BID bisacodyl [Dulcolax (bisacodyl)] 10 mg suppository 10 mg TN DAILY PRN ondansetron 4 mg tablet,disintegrating 4 mg PO Q6H PRN potassium chloride 20 mEq tablet extended release 20 meq PO DAILY spironolactone [Aldactone] 25 mg tablet 12.5 mg PO DAILY venlafaxine [Effexor XR] 75 mg capsule,extended release 24hr 75 mg PO DAILY Patient Comments: takes w/150mg capsule for total dose of 225mg daily lactulose 20 gram/30 mL Solution 15 ml PO TID Rx Instructions: to maintain colostomy output of 3-4 bags per day diclofenac sodium [Arthritis Pain (diclofenac)] 1 % gel 2 g topical TID Rx Instructions: apply to single elbow, wrist or hand; for hand includes palm/fingers/back of hand melatonin 3 mg tablet 6 mg PO HS Patient Comments: TAKE ONE TABLET BY MOUTH AT BEDTIME ferrous sulfate 325 mg (65 mg iron) Tablet 325 mg PO DAILY Qty: 0 0RF empagliflozin 25 mg Tablet 25 mg PO DAILY levothyroxine 200 mcg Tablet 100 mcg PO QAM Qty: 0 0RF venlafaxine 150 mg capsule,extended release 24hr 150 mg PO DAILY acetaminophen [Tylenol] 325 mg Capsule 650 mg PO Q6H MDD 3000 PRN losartan [Cozaar] 50 mg tablet 50 mg PO BID furosemide [Lasix] 40 mg tablet See Rx Instructions .ROUTE .COMPLEX Qty: 60 0RF Rx Instructions: 40 mg every morning and 20 mg early afternoon zinc oxide 10 % cream 1 applic topical BID lidocaine [Aspercreme (lidocaine)] 4 % adhesive patch,medicated 1 patch topical DAILY Rx Instructions: may leave on for up to 12 hrs HPI General Mode of arrival: EMS. Date/Time Provider Initiated Documentation: 07/29/25 08:22. Limitations to Documentation: no limitations. Information obtained by: patient, EMS, RN notes reviewed and old records reviewed. HPI Narrative: 80-year-old male presents to the ER via EMS with a chief complaint of chest pain,left shoulder pain, shortness of breath, dizziness and weakness from [facility]. Patient was given 1 sublingual nitro prior to arrival and 324 mg aspirin which decreased his chest pain. He does endorse intermittent dizziness while laying down. Denies any nausea or vomiting does have a colostomy with brown stool noted. Past medical history includes CHF with reduced ejection fraction less than 40%, colostomy, atrial fibrillation, type 2 diabetes mellitus, liver cirrhosis, obstructive sleep apnea, small bowel obstruction, colon cancer, recent TIPS procedure, history of left hemicolectomy. Related Data Home Medications ?Medication ?Instructions ?Recorded ?Confirmed apixaban 5 mg tablet (Eliquis) 5 mg PO BID 11/08/22 07/29/25 pantoprazole 40 mg tablet,delayed 40 mg PO DAILY 11/08/22 07/29/25 release nitroglycerin 0.4 mg sublingual 0.4 mg sublingual Q5 MIN PRN X3 02/10/23 07/29/25 tablet PRN #30 tabs empagliflozin 25 mg tablet 25 mg PO DAILY 04/09/23 07/29/25 levothyroxine 200 mcg tablet 100 mcg (1/2 x 200 mcg) PO QAM #0 04/10/23 07/29/25 tabs rifaximin 550 mg tablet 550 mg PO BID 07/07/23 07/29/25 venlafaxine 150 mg 150 mg PO DAILY 03/05/24 07/29/25 capsule,extended release 24 hr acetaminophen 325 mg capsule 650 mg PO Q6H PRN 05/12/24 07/29/25 (Tylenol) prazosin 5 mg capsule 10 mg PO QPM 08/04/24 07/29/25 tamsulosin 0.4 mg capsule 0.4 mg PO DAILY 08/04/24 07/29/25 metformin 500 mg tablet,extended 1,000 mg PO BID 01/17/25 07/29/25 release 24hr (osmotic) bisacodyl 10 mg rectal suppository 10 mg TN DAILY PRN 02/26/25 07/29/25 (Dulcolax (bisacodyl)) lactulose 20 gram/30 mL oral 15 ml PO TID 02/26/25 07/29/25 solution ondansetron 4 mg disintegrating 4 mg PO Q6H PRN 02/26/25 07/29/25 tablet potassium chloride 20 mEq 20 meq PO DAILY 02/26/25 07/29/25 tablet,extended release spironolactone 25 mg tablet 12.5 mg PO DAILY 02/26/25 07/29/25 (Aldactone) venlafaxine 75 mg capsule,extended 75 mg PO DAILY 02/26/25 07/29/25 release 24 hr (Effexor XR) diclofenac sodium 1 % topical gel 2 g topical TID 04/02/25 07/29/25 (Arthritis Pain (diclofenac)) losartan 50 mg tablet (Cozaar) 50 mg PO BID 04/19/25 07/29/25 furosemide 40 mg tablet (Lasix) See Rx Instructions .Route 05/10/25 07/29/25 .COMPLEX #60 tabs melatonin 3 mg tablet 6 mg PO HS 05/15/25 07/29/25 ferrous sulfate 325 mg (65 mg 325 mg PO DAILY #0 tabs 05/16/25 07/29/25 iron) tablet zinc oxide 10 % topical cream 1 applic topical BID 06/04/25 07/29/25 lidocaine 4 % topical patch 1 patch topical DAILY 07/29/25 07/29/25 (Aspercreme (lidocaine)) Previous Rx's ?Medication ?Instructions ?Recorded nitroglycerin 0.4 mg sublingual 0.4 mg sublingual Q5 MIN PRN X3 02/10/23 tablet PRN #30 tabs levothyroxine 200 mcg tablet 100 mcg (1/2 x 200 mcg) PO QAM #0 04/10/23 tabs furosemide 40 mg tablet (Lasix) See Rx Instructions .Route 05/10/25 .COMPLEX #60 tabs ferrous sulfate 325 mg (65 mg 325 mg PO DAILY #0 tabs 05/16/25 iron) tablet Allergies Allergy/AdvReac Type Severity Reaction Status Date / Time Penicillins Allergy Mild Itching Verified 06/04/25 02:20 mussels Allergy Anaphylaxis Verified 06/04/25 02:20 morphine AdvReac Severe vomiting Verified 06/04/25 02:20 General Stated Complaint: Chest Pain ANNA: 3 Review of Systems All systems reviewed & are unremarkable except as noted in HPI and below ENT Ears, Nose, Mouth, and Throat: Reports dizziness Cardiovascular Cardiovascular: Reports chest pain and Reports dyspnea Respiratory Respiratory: Reports dyspnea Gastrointestinal Gastrointestinal: Denies abdominal pain, Denies nausea and Denies vomiting Neurologic Neurologic: Reports dizziness Exam Narrative Exam Narrative: Constitutional: Alert and oriented x3. Appears stated age. Normal body habitus. Appears acute on chronically ill, does appear fatigued and pale. Head: Normocephalic, no trauma. Eyes: Pupils PERRL, Red reflex noted, EOM's intact. Eyelids symmetrical without lesions, discharge, or swelling. ENT: Bilateral TM's WNL, External ear normal to inspection, no mastoid TTP, swelling, or erythema, Nasal turbinates WNL, no nasal discharge. Normal dentition, Posterior pharynx WNL, no exudate. Chest: RRR, Normal S1, S2, distal pulses intact. Resp: Lungs clear to auscultation bilaterally, no wheezes, rales, or rhonchi. Abdomen: Soft, non-distended, Normoactive bowel sounds all 4 quads. Colostomy noted left lower quadrant with soft brown stool noted. Musculoskeletal: To assess gait, moves all 4 extremities without difficulty. Skin: No suspicious rashes or lesions. Capillary refill less than 2 sec. Neurologic: Cranial nerves II-XII intact. Alert and oriented x 3. Motor: No deficits noted. Hematologic/Lymphatic: No ecchymosis, no lymphadenopathy. Course Vital Signs Vital signs: Vital Signs Pulse 94 H 07/29/25 08:18 Respiratory Rate 18 07/29/25 08:18 Blood Pressure 124/58 L 07/29/25 08:18 Pulse Oximetry 94 07/29/25 08:18 Pulse 94 H 07/29/25 08:18 Respiratory Rate 18 07/29/25 08:18 Blood Pressure 124/58 L 07/29/25 08:18 Pulse Oximetry 94 07/29/25 08:18 Oxygen Delivery Method Room Air 07/29/25 08:18 Oxygen Flow Rate 0 07/29/25 08:18 Medical Decision Making 80-year-old male presents to the ER via EMS with a chief complaint of chest pain,left shoulder pain, shortness of breath, dizziness and weakness from [facility]. Patient was given 1 sublingual nitro prior to arrival and 324 mg aspirin which decreased his chest pain. He does endorse intermittent dizziness while laying down. Denies any nausea or vomiting does have a colostomy with brown stool noted. Past medical history includes CHF with reduced ejection fraction less than 40%, colostomy, atrial fibrillation, type 2 diabetes mellitus, liver cirrhosis, obstructive sleep apnea, small bowel obstruction, colon cancer, recent TIPS procedure, history of left hemicolectomy. EKG was reviewed by myself and Dr. Morrissey ER attending, old EKG available for review. Left bundle branch block with frequent PVCs, see official report. Cardiac workup ordered including serial troponins, proBNP PT, lipase and ammonia, Differential Diagnosis includes but not limited to [place], NSTEMI, Electrolyte disturbance, Hepatic encephalopathy, dehydration, CHF, UTI, Critical hemoglobin result given by critical care unit nurse, hemoglobin 6.9. Last hemoglobin in May was 8.9. Hematocrit 23.2, platelets 73 sodium 148 chloride 112 BUN 20 creatinine 1.2 GFR 61 ammonia 79 proBNP 1183. 1 unit of PRBCs ordered. CT chest, abd, pelvis ordered to rule out pleural effusions. 1005: Contacted Dr. Arizmendi regarding patient case and details, he agrees to accept patient for admission pending CT results. Discussed admission and plan of care including blood transfusion with patient who verbalized understanding and is in agreement with the plan. CT shows chronic findings bilateral pleural effusions right greater than the left no significant change from previous CT. 1204: Urinalysis shows trace ketones moderate blood positive nitrites 3-5 RBCs 10-20 WBCs culture is pending at this time. Moderate bacteria. No leukocytes. Patient has remained hemodynamically stable throughout the remainder of his stay here. Will give 3gm Fosfomycin PO here. 1245: Dr. Arizmendi here at for patient evaluation, discussed request for admission with him, he verbalizes understanding, due to patients fluid balance status with CHF with decreased EF and need for blood products recommend further observation and re-evaluation if needed additional blood products. This text was generated using [employer] system, please disregard any oddities of phrase or misspellings. Medical Records Medical records reviewed: Yes I reviewed the patient's medical records. Imaging Data Radiologic Study: Imaging: CT Scan Radiologist's impression: CT IMPRESSION: 1. Compared to the prior CT scan of 06/04/2025 there again noted bilateral right larger than left pleural effusions and subjacent atelectasis in the basal segments of both lower lobes. Mild cardiomegaly again noted. No pericardial effusion. No evidence of dissection. 2. Static cirrhosis/TIPS stent again evident and splenomegaly. Minimal amount of ascites, less than previous. 3. Bowel anastomoses. Left anterior pelvic wall colostomy site. No obvious bowel obstruction, free air, nor abscess. Report called by myself to the ER provider on 07/29/2025 at 10:40 a.m. Lab Data Lab results reviewed: Yes I reviewed the patient's lab results. Labs: 07/29/25 11:30 Urine - Reflex from Ua Urine Culture - Pending Laboratory Tests Range/Units 07/29/25 07/29/25 07/29/25 08:27 08:35 08:56 WBC (4.4-10.8) 10^3/uL 2.44 L RBC (4.36-5.78) 10^6/uL 2.84 L Hgb (13.5-17.5) g/dL 6.9 L* Hct (40.0-50.0) % 23.2 L MCV (80-95) fL 82 MCH (27.0-33.0) pg 24.3 L MCHC (32.0-36.0) % 29.7 L RDW (11.8-14.1) % 19.9 H Plt Count (130-400) 10^3/uL 73 L MPV (8.0-11.0) fL 10.9 Immature Gran % % 0.4 Neutrophils % % 61.0 Lymphocytes % % 19.7 Monocytes % % 11.1 Eosinophils % % 7.0 Basophils % % 0.8 Nucleated RBC % (0.0-0.3) % 0.0 Absolute Neutrophils (1.2-6.7) 10^3/uL 1.49 Absolute Lymphocytes (1.2-3.4) 10^3/uL 0.48 L Absolute Monocytes (0.1-0.8) 10^3/uL 0.27 Absolute Eosinophils (0.0-0.7) 10^3/uL 0.17 Absolute Basophils (0.0-0.2) 10^3/uL 0.02 RBC Morphology See Below Anisocytosis 2+ Microcytosis 2+ PT (9.1-11.1) sec 13.4 H INR (0.9-1.1) 1.4 H Sodium (136-145) mmol/L 148 H Potassium (3.5-5.1) mmol/L 3.8 Chloride (98-107) mmol/L 112 H Carbon Dioxide (21.0-32.0) mmol/L 23.5 Anion Gap (3-11) mmol/L 12.5 H BUN (7-18) mg/dL 20 H Creatinine (0.70-1.30) mg/dL 1.2 Est GFR (CKD-EPI 2020) (mL/min/1.73m2) 61.90 Glucose (74-106) mg/dL 102 Calcium (8.5-10.1) mg/dL 8.8 Magnesium (1.8-2.4) mg/dL 1.7 L Iron (65-175) ug/dL 14 L TIBC (250-450) ug/dL 301 Transferrin % Sat (20-55) % 5 L Total Bilirubin (0.2-1.0) mg/dL 1.3 H AST (15-37) U/L 18 ALT (16-63) U/L 10 L Alkaline Phosphatase (46-116) U/L 90 Ammonia (11-32) umol/L 79 H Troponin I (<or=76) ng/L 60 NT-Pro-B Natriuret Pep (<300) pg/mL 1183 H Total Protein (6.4-8.2) g/dL 5.2 L Albumin (3.4-5.0) g/dL 2.4 L Lipase (<78) U/L 42 Urine Color (Yellow) Urine Clarity (Clear) Urine pH (5-8) Ur Specific [place] (1.005-1.025) Urine Protein (Neg-Trace) mg/dL Urine Ketones (Negative) mg/dL Urine Blood (Negative) Urine Nitrite (Negative) Urine Bilirubin (Negative) Urine Urobilinogen (Up to 0.2) mg/dL Ur Leukocyte Esterase (Negative) Urine RBC (0-2) HPF Urine WBC (0-5) HPF Ur Epithelial Cells (Negative) HPF Urine Crystals (Negative) HPF Urine Bacteria (Negative) HPF Urine Casts (Negative) LPF Urine Mucus (Negative) Ur Culture Indicated? Urine Glucose (Negative) mg/dL ABO/Rh O Positive Antibody Screen NEGATIVE Crossmatch See Detail Range/Units 07/29/25 07/29/25 09:27 11:30 WBC (4.4-10.8) 10^3/uL RBC (4.36-5.78) 10^6/uL Hgb (13.5-17.5) g/dL Hct (40.0-50.0) % MCV (80-95) fL MCH (27.0-33.0) pg MCHC (32.0-36.0) % RDW (11.8-14.1) % Plt Count (130-400) 10^3/uL MPV (8.0-11.0) fL Immature Gran % % Neutrophils % % Lymphocytes % % Monocytes % % Eosinophils % % Basophils % % Nucleated RBC % (0.0-0.3) % Absolute Neutrophils (1.2-6.7) 10^3/uL Absolute Lymphocytes (1.2-3.4) 10^3/uL Absolute Monocytes (0.1-0.8) 10^3/uL Absolute Eosinophils (0.0-0.7) 10^3/uL Absolute Basophils (0.0-0.2) 10^3/uL RBC Morphology Anisocytosis Microcytosis PT (9.1-11.1) sec INR (0.9-1.1) Sodium (136-145) mmol/L Potassium (3.5-5.1) mmol/L Chloride (98-107) mmol/L Carbon Dioxide (21.0-32.0) mmol/L Anion Gap (3-11) mmol/L BUN (7-18) mg/dL Creatinine (0.70-1.30) mg/dL Est GFR (CKD-EPI 2020) (mL/min/1.73m2) Glucose (74-106) mg/dL Calcium (8.5-10.1) mg/dL Magnesium (1.8-2.4) mg/dL Iron (65-175) ug/dL TIBC (250-450) ug/dL Transferrin % Sat (20-55) % Total Bilirubin (0.2-1.0) mg/dL AST (15-37) U/L ALT (16-63) U/L Alkaline Phosphatase (46-116) U/L Ammonia (11-32) umol/L Troponin I (<or=76) ng/L 60 NT-Pro-B Natriuret Pep (<300) pg/mL Total Protein (6.4-8.2) g/dL Albumin (3.4-5.0) g/dL Lipase (<78) U/L Urine Color (Yellow) Yellow Urine Clarity (Clear) Sl Cloudy Urine pH (5-8) 5.5 Ur Specific [place] (1.005-1.025) 1.010 Urine Protein (Neg-Trace) mg/dL 30 H Urine Ketones (Negative) mg/dL Trace H Urine Blood (Negative) Moderate H Urine Nitrite (Negative) Positive H Urine Bilirubin (Negative) Negative Urine Urobilinogen (Up to 0.2) mg/dL 1.0 H Ur Leukocyte Esterase (Negative) Negative Urine RBC (0-2) HPF 3-5 H Urine WBC (0-5) HPF 10-20 H Ur Epithelial Cells (Negative) HPF Rare Urine Crystals (Negative) HPF Negative Urine Bacteria (Negative) HPF Moderate Urine Casts (Negative) LPF Negative Urine Mucus (Negative) Trace Ur Culture Indicated? Yes Urine Glucose (Negative) mg/dL 500 H ABO/Rh Antibody Screen Crossmatch Quality:SDOH Health Related Social Needs: Health related social needs transpo insecurity Health related social needs details sometimes has trouble getting a ride to places - has to wait on son to be available [facility] All Active Problems (Updated 07/29/25 @ 14:16 by Elia Arizmendi) Pyuria (Acute) DVT prophylaxis (Acute) Acute UTI (Acute) Hepatic encephalopathy (Acute) Encounter for ostomy care education (Acute) Stomach ache (Acute) Delayed gastric transit (Acute) Small bowel obstruction (Acute) Anemia (Chronic) History of creation of ostomy (Acute) Contusion (Acute) Liver mass (Acute) Vomiting (Acute) Elevated lactic acid level (Acute) Acute UTI (Acute) Symptomatic bradycardia (Acute) Acute hypokalemia (Acute) Family conflict (Acute) Chest pain in adult (Acute) Fall (Acute) Chronic low back pain (Chronic) Hematuria (Acute) Leukopenia (Acute) Oral candidiasis (Acute) Sepsis syndrome (Acute) Gram-negative bacteremia (Acute) Cellulitis (Acute) Anemia of chronic disease (Acute) Ventricular ectopy (Acute) Sinus bradycardia (Acute) Leukocytosis (Acute) Hypertension (Chronic) Elevated lactic acid level (Acute) No-show for appointment (Acute) Left rotator cuff tear (Acute) Acute UTI (urinary tract infection) (Acute) Weakness (Acute) Non-ST elevation WA (NSTEMI) (Acute) Pre-syncope (Acute) Frequent falls (Acute) Orthostatic hypotension (Acute) Hypokalemia (Acute) Bradycardia (Acute) Multiple falls (Acute) Acute metabolic encephalopathy (Acute) Medication monitoring encounter (Acute) Chest pain (Acute) Medical History (Updated 07/29/25 @ 14:16 by Elia Arizmendi) Hypothyroidism (acquired) Depression Lower urinary obstructive symptom CHF (congestive heart failure) EF 25%- 2023 GIB (gastrointestinal bleeding) Chronic GERD BPH (benign prostatic hyperplasia) Major depression, recurrent, chronic Severe obesity (BMI >= 40) Diabetes mellitus treated with oral medication Anemia associated with acute blood loss Acute on chronic HFrEF (heart failure with reduced ejection fraction) Anemia Splenomegaly Thrombocytopenia Colostomy care Thrombocytopenia Chronic atrial fibrillation Type 2 diabetes mellitus CHF exacerbation ANETTE (obstructive sleep apnea) Chronic heart failure with reduced ejection fraction (HFrEF, <= 40%) Anemia Cirrhosis of liver without ascites Diabetes Goals of care, counseling/discussion Lactic acidosis UTI (urinary tract infection) Urinary tract infection Advanced care planning/counseling discussion Palliative care encounter Followed by [facility] Bowel obstruction Sepsis Heart failure with reduced ejection fraction Hypothyroidism Small bowel obstruction Lactic acid acidosis Creatinine elevation Acute UTI Anticoagulated COVID Recurrent intestinal obstruction History of colon cancer Chronic anticoagulation Portal hypertension Cirrhosis TIPs placed (?when, 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, Dx [facility] as per pt Non-insulin dependent type 2 diabetes mellitus Incontinence Hypertension Scleral icterus Surgical History S/P TIPS (transjugular intrahepatic portosystemic shunt) H/O left hemicolectomy Colostomy in place Social History Smoking/Tobacco Use Status: Former Tobacco Use Smoking risk assessment performed?: Yes Alcohol Intake: former Drug use: Never Substance use type: does not use Housing: longterm Do you feel safe at home: Yes Do you feel safe in your relationship?: Yes Additional [facility] history[facility]
[2025-07-29 08:45] LABS: Abs Immature Grans 0.01 10^3/uL (0.0-0.06); HCT 23.2 % (40.0-50.0); Immature Grans % 0.4 %; MCH 24.3 pg (27.0-33.0); MCHC 29.7 % (32.0-36.0); MCV 82 fL (80-95); MPV 10.9 fL (8.0-11.0); RBC 2.84 10^6/uL (4.36-5.78); RDW 19.9 % (11.8-14.1); RDW-SD 59.7 fL; WBC 2.44 10^3/uL (4.4-10.8)
[2025-07-29 08:47] LABS: HGB 6.9 g/dL (13.5-17.5)
[2025-07-29 08:55] LABS: INR 1.4 (0.9-1.1); Prothrombin Time 13.4 sec (9.1-11.1)
[2025-07-29 08:58] LABS: Ammonia 79 umol/L (11-32)
[2025-07-29 09:06] LABS: Anisocytosis 2+; Microcytosis 2+; Platelet Count 73 10^3/uL (130-400)
[2025-07-29 09:10] LABS: ALT 10 U/L (16-63); AST 18 U/L (15-37); Albumin 2.4 g/dL (3.4-5.0); Alkaline Phosphatase 90 U/L (46-116); Anion Gap 12.5 mmol/L (3-11); BUN 20 mg/dL (7-18); Bilirubin, Total 1.3 mg/dL (0.2-1.0); CO2 23.5 mmol/L (21.0-32.0); Calcium 8.8 mg/dL (8.5-10.1); Chloride 112 mmol/L (98-107); Estimated GFR 61.90 (mL/min/1.73m2); Glucose 102 mg/dL (74-106); Lipase 42 U/L (<78); Magnesium 1.7 mg/dL (1.8-2.4); NT-proBNP 1183 pg/mL (<300); Potassium 3.8 mmol/L (3.5-5.1); Sodium 148 mmol/L (136-145); Total Protein 5.2 g/dL (6.4-8.2); Troponin I 60 ng/L (<or=76)
--- NOTE | 2025-07-29 09:15 | DI.CT_ITS ---
Exam(s) CT CHEST/ABD/PEL W EXAM: CT CHEST/ABD/PEL W CLINICAL HISTORY: Chest Pain, SOB, Anemia. TECHNIQUE: Imaging Protocol: Axial computed tomography images with coronal and sagittal reformatted images were created and reviewed CONTRAST MATERIAL: Intravenous: Omnipaque 350 Contrast volume:100 ml Oral: None COMPARISON: CT CT ABDOMEN PELVIS WO from 06/04/2025 CR XR PORTABLE CHEST AP from 07/29/2025 FINDINGS: CHEST: LUNGS: Bilateral pleural effusions, right larger than left but right pleural effusion has not increased in size when compared to 06/04/2025 and the left pleural effusion appears slightly smaller. There is some mild infiltrate in both lung bases as well as volume loss in the basal segments of the lower lobes, more so on the right side because of the larger right pleural effusion.. No ominous lung nodules identified. MEDIASTINUM: There is no hilar nor mediastinal adenopathy. Visualized thyroid unremarkable. CARDIAC: Mild cardiomegaly. No pericardial effusion. The diameter of the ascending thoracic aorta is normal. No evidence of dissection. No central pulmonary emboli evident. OSSEOUS: No significant osseous lesions.No fractures.. Symmetrical gynecomastia noted. ABDOMEN: There is very minimal ascites. LIVER: Liver is again noted be cirrhotic and contains a TIPS stent extending from the main portal vein to the central right hepatic vein. This appears patent. There are no ominous focal hepatic lesions. GALLBLADDER/BILIARY: No obvious gallbladder pathology. CBD is not dilated. PANCREAS: No evidence of pancreatic mass nor dilatation of the pancreatic duct. SPLEEN: Splenomegaly again noted. Splenic vein size is also increased but there is no evidence of splenic vein thrombosis. The splenic and portal veins are patent. Portal vein confluence is patent. No evidence of obvious esophageal varices nor recanalization of the umbilical vein. ADRENALS: Unremarkable KIDNEYS: No calculi nor hydronephrosis. No solid renal masses. No cysts evident. ABDOMINAL AORTA: Calcified but not enlarged. Iliac arteries also calcified but not enlarged. LYMPH NODES: There is no retroperitoneal nor paraaortic adenopathy. ABDOMINAL WALL/GI: There is a right anterior abdominal wall hernia sac again noted which contains fat but no bowel loops and appears unchanged from previous. Hernia sac but also does not contain fluid. Bowel anastomoses are seen again centrally in the pelvis and in the right-side of the abdomen. There is mild prominence at the central nasty most is but no high-grade bowel obstruction evident. No free air. No abscess. There is a left anterior pelvic wall colostomy site again noted. This appears intact without obvious complications. PELVIS: LYMPH NODES: There is no intrapelvic nor inguinal adenopathy. GI: Appendix surgically absent.No evidence of sigmoid diverticulitis. URINARY BLADDER: No calculi nor masses evident REPRODUCTIVE: Mildly enlarged prostate gland OSSEOUS: No significant osseous lesions. No fractures. Multilevel chronic degenerative disc disease in the lumbar spine. IMPRESSION: 1. Compared to the prior CT scan of 06/04/2025 there again noted bilateral right larger than left pleural effusions and subjacent atelectasis in the basal segments of both lower lobes. Mild cardiomegaly again noted. No pericardial effusion. No evidence of dissection. 2. Static cirrhosis/TIPS stent again evident and splenomegaly. Minimal amount of ascites, less than previous. 3. Bowel anastomoses. Left anterior pelvic wall colostomy site. No obvious bowel obstruction, free air, nor abscess. Report called by myself to the ER provider on 07/29/2025 at 10:40 a.m. RADIATION DOSE DELIVERED: 654.1mGy.cm Total DLP DATA REPOSITORY: All CT scans at this facility are submitted to the National Radiology Data Registry (NRDR) Dose Index Registry (DIR) with the [employer] (ACR). RADIATION OPTIMIZATION: All CT scans at this facility use at least one of these dose optimization techniques: automated exposure control; mA and/or kV adjustment per patient size (includes targeted exams where dose is matched to clinical indication); or iterative reconstruction.
[2025-07-29 09:43] LABS: Iron 14 ug/dL (65-175); Total Iron Binding Capacity 301 ug/dL (250-450); Transferrin Sat 5 % (20-55)
[2025-07-29] MEDS: Normal Saline - Diluent 50 ML VIAL IJ (09:52)
[2025-07-29] MEDS: Normal Saline Flush 10 ML SYR IVP ×3 (09:52→20:00)
[2025-07-29] MEDS: Omnipaque 350 MG/ML 100 ML BTL IJ (09:52)
[2025-07-29 09:54] LABS: Troponin I 60 ng/L (<or=76)
[2025-07-29 11:41] LABS: Glucose 500 mg/dL (Negative)
[2025-07-29 11:57] LABS: C & S Indicated? Yes
[2025-07-29 12:32] LABS: Troponin I 59 ng/L (<or=76)
--- NOTE | 2025-07-29 13:38 | W.PM.HP.N ---
Date of service: 07/29/25 Time of Service: 13:39 Assessment and Plan Assessment and plan (1) Anemia: Status: Chronic Assessment and plan: Acute on chronic anemia I think is trigger for his presetnation with dizziness and shortness of breath Given his high risk with cirrhosis and his CHF, I agree with observation with monitoring with transfusion. 1 unit RBC now. Also transfuse iron, levels again quite low today. No clear active bleed, but high risk for GI bleed with cirrhosis and colon surgery. Monitor the stool. No record of endoscopy in [facility] or records, try to get from [place] Low platelets suggest portal HTN, on apixaban so holding this. Hold topical NSAID as well for possible systemic absorbtion. COntinue PPI. (2) Acute on chronic HFrEF (heart failure with reduced ejection fraction): Assessment and plan: Mild active CHF now. Will given slightly higher oral furosemide with transfusion. Some chest pain on presentation that resolved, EKG/trops reassuring, no ACS Continue chronic GDMT (3) Hepatic encephalopathy: Status: Acute Assessment and plan: He has mild active encephalopathy with some confusion, slow processing, asterixis. Double outpatient lactulose dose. Follow clinically. (4) Chronic atrial fibrillation: Assessment and plan: In flutter now. Continue carvedilol, holding apixaban a above. (5) Goals of care, counseling/discussion: Assessment and plan: Complex case, sees palliative at [place]. I expect 1-2 day admission at this point (6) Major depression, recurrent, chronic: Assessment and plan: stable, continue outpatient therapy (7) Non-insulin dependent type 2 diabetes mellitus: Assessment and plan: Recently well controlled, hold metformin after CT but continue ampagliflozin, ISS. Add glargine if running high. (8) Hypothyroidism: Assessment and plan: continue outpatient levothyroxine. (9) DVT prophylaxis: Status: Acute Assessment and plan: mechanical given severe anemia and risk of bleeding (10) Pyuria: Status: Acute Assessment and plan: moderatly postive urine but no clear symptoms. Given fosfomycin which is fine as could possibly be trigger for encephalopathy, but I will not give additional treatment unless becomes more clearly symptomatic. History of Present Illness History of Present Illness Chief Complaint: short of breath, dizzy Narrative: 80 yo male with a past medical history of cirrhosis with encephalopathy s/p TIPS, iron deficiency anemia, atrial fibrillation on apixaban, HFrEF with an LVEF of 24% on 02/14/2024, insulin-dependent diabetes mellitus, obstructive sleep apnea, coronary artery disease, depression, chronic kidney disease, s/p hemicolectomy with colostomy, multiple prior episodes of small bowel obstruction who lives at [facility] who presented with a few days of increased dizziness and shortness of breath. He also had some chest pain and left shoulder pain, but he states this comes and goes. This did go away with NTG in the ED. He has not had melena or blood in stool and has had his typical stool output on lactulose. He denies dysuria or other urinary sympotms. No URI symtpoms or cough. No abdominal pain or heartburn. His last two admissions were in May for SBO. He was admitted in April for anemia and CHF and required transfusion. He states he has had an EDG here at [facility] recently, but I couldn't find record of this. Review of Systems All systems reviewed & are unremarkable except as noted in HPI and below PFSH All Active Problems (Updated 07/29/25 @ 14:16 by Elia Arizmendi) Pyuria (Acute) DVT prophylaxis (Acute) Acute UTI (Acute) Hepatic encephalopathy (Acute) Encounter for ostomy care education (Acute) Stomach ache (Acute) Delayed gastric transit (Acute) Small bowel obstruction (Acute) Anemia (Chronic) History of creation of ostomy (Acute) Contusion (Acute) Liver mass (Acute) Vomiting (Acute) Elevated lactic acid level (Acute) Acute UTI (Acute) Symptomatic bradycardia (Acute) Acute hypokalemia (Acute) Family conflict (Acute) Chest pain in adult (Acute) Fall (Acute) Chronic low back pain (Chronic) Hematuria (Acute) Leukopenia (Acute) Oral candidiasis (Acute) Sepsis syndrome (Acute) Gram-negative bacteremia (Acute) Cellulitis (Acute) Anemia of chronic disease (Acute) Ventricular ectopy (Acute) Sinus bradycardia (Acute) Leukocytosis (Acute) Hypertension (Chronic) Elevated lactic acid level (Acute) No-show for appointment (Acute) Left rotator cuff tear (Acute) Acute UTI (urinary tract infection) (Acute) Weakness (Acute) Non-ST elevation ND (NSTEMI) (Acute) Pre-syncope (Acute) Frequent falls (Acute) Orthostatic hypotension (Acute) Hypokalemia (Acute) Multiple falls (Acute) Bradycardia (Acute) Acute metabolic encephalopathy (Acute) Medication monitoring encounter (Acute) Chest pain (Acute) Medical History (Updated 07/29/25 @ 14:16 by Elia Arizmendi) GIB (gastrointestinal bleeding) Hypothyroidism (acquired) Depression Chronic GERD BPH (benign prostatic hyperplasia) Major depression, recurrent, chronic Severe obesity (BMI >= 40) Diabetes mellitus treated with oral medication Anemia associated with acute blood loss Acute on chronic HFrEF (heart failure with reduced ejection fraction) Anemia Splenomegaly Chronic heart failure with reduced ejection fraction (HFrEF, <= 40%) Goals of care, counseling/discussion Lactic acidosis UTI (urinary tract infection) Anemia Urinary tract infection Thrombocytopenia Colostomy care Advanced care planning/counseling discussion Cirrhosis of liver without ascites Diabetes Lower urinary obstructive symptom Thrombocytopenia Chronic atrial fibrillation Type 2 diabetes mellitus CHF exacerbation ANETTE (obstructive sleep apnea) CHF (congestive heart failure) EF 25%- 2023 Bowel obstruction Sepsis Heart failure with reduced ejection fraction Hypothyroidism Small bowel obstruction Creatinine elevation Lactic acid acidosis Anticoagulated Acute UTI COVID Recurrent intestinal obstruction History of colon cancer Palliative care encounter Followed by [facility] Chronic anticoagulation Portal hypertension Cirrhosis TIPs placed (?when, [facility]? 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, Dx [facility] as per pt Non-insulin dependent type 2 diabetes mellitus Incontinence Hypertension Scleral icterus Surgical History S/P TIPS (transjugular intrahepatic portosystemic shunt) Colostomy in place H/O left hemicolectomy Social History Smoking/Tobacco Use Status: Former Tobacco Use Smoking risk assessment performed?: Yes Alcohol Intake: former Drug use: Never Substance use type: does not use Housing: fpc Do you feel safe at home: Yes Do you feel safe in your relationship?: Yes Additional Social history: from [facility] Meds Allergies and Home Medications Allergies Allergy/AdvReac Type Severity Reaction Status Date / Time Penicillins Allergy Mild Itching Verified 06/04/25 02:20 mussels Allergy Anaphylaxis Verified 06/04/25 02:20 morphine AdvReac Severe vomiting Verified 06/04/25 02:20 Home Medications ?Medication ?Instructions ?Recorded ?Confirmed ?Type apixaban 5 mg tablet (Eliquis) 5 mg PO BID 11/08/22 07/29/25 History pantoprazole 40 mg tablet,delayed 40 mg PO DAILY 11/08/22 07/29/25 History release nitroglycerin 0.4 mg sublingual 0.4 mg sublingual Q5 MIN PRN X3 02/10/23 07/29/25 Rx tablet PRN #30 tabs empagliflozin 25 mg tablet 25 mg PO DAILY 04/09/23 07/29/25 History levothyroxine 200 mcg tablet 100 mcg (1/2 x 200 mcg) PO QAM #0 04/10/23 07/29/25 Rx tabs rifaximin 550 mg tablet 550 mg PO BID 07/07/23 07/29/25 History venlafaxine 150 mg 150 mg PO DAILY 03/05/24 07/29/25 History capsule,extended release 24 hr acetaminophen 325 mg capsule 650 mg PO Q6H PRN 05/12/24 07/29/25 History (Tylenol) prazosin 5 mg capsule 10 mg PO QPM 08/04/24 07/29/25 History tamsulosin 0.4 mg capsule 0.4 mg PO DAILY 08/04/24 07/29/25 History metformin 500 mg tablet,extended 1,000 mg PO BID 01/17/25 07/29/25 History release 24hr (osmotic) bisacodyl 10 mg rectal suppository 10 mg ND DAILY PRN 02/26/25 07/29/25 History (Dulcolax (bisacodyl)) lactulose 20 gram/30 mL oral 15 ml PO TID 02/26/25 07/29/25 History solution ondansetron 4 mg disintegrating 4 mg PO Q6H PRN 02/26/25 07/29/25 History tablet potassium chloride 20 mEq 20 meq PO DAILY 02/26/25 07/29/25 History tablet,extended release spironolactone 25 mg tablet 12.5 mg PO DAILY 02/26/25 07/29/25 History (Aldactone) venlafaxine 75 mg capsule,extended 75 mg PO DAILY 02/26/25 07/29/25 History release 24 hr (Effexor XR) diclofenac sodium 1 % topical gel 2 g topical TID 04/02/25 07/29/25 History (Arthritis Pain (diclofenac)) losartan 50 mg tablet (Cozaar) 50 mg PO BID 04/19/25 07/29/25 History furosemide 40 mg tablet (Lasix) See Rx Instructions .Route 05/10/25 07/29/25 Rx .COMPLEX #60 tabs melatonin 3 mg tablet 6 mg PO HS 05/15/25 07/29/25 History ferrous sulfate 325 mg (65 mg 325 mg PO DAILY #0 tabs 05/16/25 07/29/25 Rx iron) tablet zinc oxide 10 % topical cream 1 applic topical BID 06/04/25 07/29/25 History lidocaine 4 % topical patch 1 patch topical DAILY 07/29/25 07/29/25 History (Aspercreme (lidocaine)) Exam Narrative Exam Narrative: GEN: Alert and oriented to self and town, but gets year wrong. Pleasant and cooperative, gives vague history. No acute distress at rest. HEENT: Head atraumatic. Conjunctiva clear, no icterus. PEERL, EOMI. no rhinorrhea. MMM, OP benign. Neck is supple with no masses or lymphadenopathy, trachea midline LUNGS: CTAB except dimininished in bilateral bases, normal effort at rest CV: irregularly irregular with 1/6 systolic murmurs, gallops, or rubs. ABD: active bowel sounds, soft, nontender and nondistended. No masses. I could not appreciate fluid wave. EXT: no cyanosis, clubbing. 1+ elizabeth pitting edema in ankles MSK: No joint redness or swelling NEURO: CN 2-12 grossly intact. Moving 4 extremities, but limited abduction at shoulders with pain. Slightly slowed speech. No tremor, but +asterixis with pressure on hands. SKIN: No rashes or open wounds. PSYCH: normal mood and affect Results Imaging Chest x-ray: report reviewed (Mildly enlarged heart size. Pulmonary venous hypertension pattern without airspace pulmonary edema.Although there are no obvious pleural effusions, please note that recent CT scan 06/04/2025 revealed moderate size bilateral pleural effusions and infiltrates in both lung bases) EKG: report reviewed and image reviewed Imaging Studies: CT C/A/P with: 1. Compared to the prior CT scan of 06/04/2025 there again noted bilateral right larger than left pleural effusions and subjacent atelectasis in the basal segments of both lower lobes. Mild cardiomegaly again noted. No pericardial effusion. No evidence of dissection. 2. Static cirrhosis/TIPS stent again evident and splenomegaly. Minimal amount of ascites, less than previous. 3. Bowel anastomoses. Left anterior pelvic wall colostomy site. No obvious bowel obstruction, free air, nor abscess. Labs 07/29/25 08:27 07/29/25 08:27 Labs: Laboratory Results - last 24 hr 07/29/25 07/29/25 07/29/25 08:27 08:35 08:56 WBC 2.44 L RBC 2.84 L Hgb 6.9 L* Hct 23.2 L MCV 82 MCH 24.3 L MCHC 29.7 L RDW 19.9 H Plt Count 73 L MPV 10.9 Immature Gran % 0.4 Neutrophils % 61.0 Lymphocytes % 19.7 Monocytes % 11.1 Eosinophils % 7.0 Basophils % 0.8 Nucleated RBC % 0.0 Absolute Neutrophils 1.49 Absolute Lymphocytes 0.48 L Absolute Monocytes 0.27 Absolute Eosinophils 0.17 Absolute Basophils 0.02 RBC Morphology See Below Anisocytosis 2+ Microcytosis 2+ PT 13.4 H INR 1.4 H Sodium 148 H Potassium 3.8 Chloride 112 H Carbon Dioxide 23.5 Anion Gap 12.5 H BUN 20 H Creatinine 1.2 Est GFR (CKD-EPI 2020) 61.90 Glucose 102 Calcium 8.8 Magnesium 1.7 L Iron 14 L TIBC 301 Transferrin % Sat 5 L Total Bilirubin 1.3 H AST 18 ALT 10 L Alkaline Phosphatase 90 Ammonia 79 H Troponin I 60 NT-Pro-B Natriuret Pep 1183 H Total Protein 5.2 L Albumin 2.4 L Lipase 42 Urine Color Urine Clarity Urine pH Ur Specific [place] Urine Protein Urine Ketones Urine Blood Urine Nitrite Urine Bilirubin Urine Urobilinogen Ur Leukocyte Esterase Urine RBC Urine WBC Ur Epithelial Cells Urine Crystals Urine Bacteria Urine Casts Urine Mucus Ur Culture Indicated? Urine Glucose ABO/Rh O Positive Antibody Screen NEGATIVE Crossmatch See Detail 07/29/25 07/29/25 07/29/25 09:27 11:30 12:04 WBC RBC Hgb Hct MCV MCH MCHC RDW Plt Count MPV Immature Gran % Neutrophils % Lymphocytes % Monocytes % Eosinophils % Basophils % Nucleated RBC % Absolute Neutrophils Absolute Lymphocytes Absolute Monocytes Absolute Eosinophils Absolute Basophils RBC Morphology Anisocytosis Microcytosis PT INR Sodium Potassium Chloride Carbon Dioxide Anion Gap BUN Creatinine Est GFR (CKD-EPI 2020) Glucose Calcium Magnesium Iron TIBC Transferrin % Sat Total Bilirubin AST ALT Alkaline Phosphatase Ammonia Troponin I 60 59 NT-Pro-B Natriuret Pep Total Protein Albumin Lipase Urine Color Yellow Urine Clarity Sl Cloudy Urine pH 5.5 Ur Specific [place] 1.010 Urine Protein 30 H Urine Ketones Trace H Urine Blood Moderate H Urine Nitrite Positive H Urine Bilirubin Negative Urine Urobilinogen 1.0 H Ur Leukocyte Esterase Negative Urine RBC 3-5 H Urine WBC 10-20 H Ur Epithelial Cells Rare Urine Crystals Negative Urine Bacteria Moderate Urine Casts Negative Urine Mucus Trace Ur Culture Indicated? Yes Urine Glucose 500 H ABO/Rh Antibody Screen Crossmatch Last Vital Signs Temp 36.9 C 07/29/25 13:35 Pulse 93 H 07/29/25 13:35 Resp 16 07/29/25 13:35 BP 138/74 07/29/25 13:35 Pulse Ox 95 07/29/25 13:35 Time Spent Time spent with Patient: 55-74 minutes Time was spent: preparing to see the patient(eg.review tests), obtaining and/or reviewing separately otained hiistory, ordering medications,tests, procedures, referring, communicating with other health career technology teacher, indepentently interpreting results, counseling the patient and care coordination
[2025-07-29] MEDS: Lactulose 20 GM/30 ML CUP 10 GM PO ×2 (15:18→20:01)
[2025-07-29] MEDS: Furosemide 40 MG TAB PO (15:18)
[2025-07-29] MEDS: Acetaminophen 325 MG TAB 650 MG PO (15:18)
[2025-07-29] MEDS: FERRIC DERISOMALTOSE 1,000 MG in Normal Saline 250 ML 500 MG IVPB (15:19)
--- NOTE | 2025-07-29 15:37 | W.PC.ACHO ---
Registration Status: ADM SMITA Primary Language: Preferred Language: ED Information & Data Chief Complaint Chest Pain 07/29/25 10:22 Chief Complaint Chest Pain 07/29/25 08:29 Triage Note CP with left shoulder pain, 07/29/25 08:18 SOB, Dizziness, weakness, AMS x1 nitro given by [facility] [employer] with good effect, 324 asa given via EMS Medical / Surgical History (Updated 07/29/25 @ 14:16 by Elia Arizmendi) Hypothyroidism (acquired) Depression Lower urinary obstructive symptom CHF (congestive heart failure) GIB (gastrointestinal bleeding) Chronic GERD BPH (benign prostatic hyperplasia) Major depression, recurrent, chronic Severe obesity (BMI >= 40) Diabetes mellitus treated with oral medication Anemia associated with acute blood loss Acute on chronic HFrEF (heart failure with reduced ejection fraction) Anemia Splenomegaly Thrombocytopenia Colostomy care Thrombocytopenia Chronic atrial fibrillation Type 2 diabetes mellitus CHF exacerbation ANETTE (obstructive sleep apnea) Chronic heart failure with reduced ejection fraction (HFrEF, <= 40%) Anemia Cirrhosis of liver without ascites Diabetes Goals of care, counseling/discussion Lactic acidosis UTI (urinary tract infection) Urinary tract infection Advanced care planning/counseling discussion Palliative care encounter Bowel obstruction Sepsis Heart failure with reduced ejection fraction Hypothyroidism Small bowel obstruction Lactic acid acidosis Creatinine elevation Acute UTI Anticoagulated COVID Recurrent intestinal obstruction History of colon cancer Chronic anticoagulation Portal hypertension Cirrhosis Confusion Colon cancer Depression Endocarditis Non-insulin dependent type 2 diabetes mellitus Incontinence Hypertension Scleral icterus (Updated 06/07/25 @ 00:03 by JOSE LUIS REICH) S/P TIPS (transjugular intrahepatic portosystemic shunt) H/O left hemicolectomy Colostomy in place Most Recent Vital Signs Temperature 36.7 C 07/29/25 15:12 Pulse 108 H 07/29/25 15:12 Pulse 106 H 07/29/25 14:10 Respiratory Rate 20 07/29/25 15:12 Respiratory Effort Normal, Non-Labored 07/29/25 10:22 Respiratory Depth Normal 07/29/25 10:22 Respiratory Pattern Normal 07/29/25 10:22 Blood Pressure 131/99 H 07/29/25 15:12 Blood Pressure Mean 101 07/29/25 14:01 Pulse Oximetry 94 07/29/25 15:12 Oxygen Delivery Method Room Air 07/29/25 15:12 Oxygen Flow Rate 0 07/29/25 15:12 Pain Level 8 07/29/25 15:18 Allergies Penicillins Allergy (Mild, Verified 06/04/25 02:20) Itching mussels Allergy (Verified 06/04/25 02:20) Anaphylaxis morphine Adverse Reaction (Severe, Verified 06/04/25 02:20) vomiting Precautions Isolation Standard precaution 07/29/25 10:22 Active Medications Generic Name Dose Route Start Last Admin Trade Name Freq PRN Reason Stop Dose Admin Acetaminophen 650 mg 07/29/25 13:40 07/29/25 15:18 Acetaminophen 325 Mg Tab PO 650 mg Q6H PRN PRN Administration Diclofenac Sodium 2 gm 07/29/25 14:00 07/29/25 15:17 Diclofenac 1% Gel 100 Gm Tube TP Not Given On Hold: 07/29/25 14:15 TID MAN Furosemide 40 mg 07/29/25 16:00 07/29/25 15:18 Furosemide 40 Mg Tab PO 40 mg BID@0830,1600 MAN Administration Lactulose 10 gm 07/29/25 14:00 07/29/25 15:18 Lactulose 20 Gm/30 Ml Cup PO 10 gm TID MAN Administration Sodium Chloride 0 ml 07/29/25 08:30 07/29/25 15:17 Normal Saline Flush 10 Ml Syr IVP 10 ml BID MAN Administration IV IV Catheter Type [Right Peripheral IV Antecubital] IV Catheter Gauge [Right 18 Antecubital] Diet Orders Category Date Time Status Diabetes Consistent CHO/Heart Healthy [DIET] Nutrition 07/29/25 Dinner Active Diagnostics 07/29/25 07/29/25 07/29/25 Range/Units 12:04 11:30 09:27 WBC (4.4-10.8) 10^3/uL RBC (4.36-5.78) 10^6/uL Hgb (13.5-17.5) g/dL Hct (40.0-50.0) % MCV (80-95) fL MCH (27.0-33.0) pg MCHC (32.0-36.0) % RDW (11.8-14.1) % Plt Count (130-400) 10^3/uL MPV (8.0-11.0) fL Immature Gran % % Neutrophils % % Lymphocytes % % Monocytes % % Eosinophils % % Basophils % % Nucleated RBC % (0.0-0.3) % Absolute Neutrophils (1.2-6.7) 10^3/uL Absolute Lymphocytes (1.2-3.4) 10^3/uL Absolute Monocytes (0.1-0.8) 10^3/uL Absolute Eosinophils (0.0-0.7) 10^3/uL Absolute Basophils (0.0-0.2) 10^3/uL RBC Morphology Anisocytosis Microcytosis PT (9.1-11.1) sec INR (0.9-1.1) Sodium (136-145) mmol/L Potassium (3.5-5.1) mmol/L Chloride (98-107) mmol/L Carbon Dioxide (21.0-32.0) mmol/L Anion Gap (3-11) mmol/L BUN (7-18) mg/dL Creatinine (0.70-1.30) mg/dL Est GFR (CKD-EPI 2020) (mL/min/1.73m2) Glucose (74-106) mg/dL Calcium (8.5-10.1) mg/dL Magnesium (1.8-2.4) mg/dL Iron (65-175) ug/dL TIBC (250-450) ug/dL Transferrin % Sat (20-55) % Total Bilirubin (0.2-1.0) mg/dL AST (15-37) U/L ALT (16-63) U/L Alkaline Phosphatase (46-116) U/L Ammonia (11-32) umol/L Troponin I 59 60 (<or=76) ng/L NT-Pro-B Natriuret Pep (<300) pg/mL Total Protein (6.4-8.2) g/dL Albumin (3.4-5.0) g/dL Lipase (<78) U/L Urine Color Yellow (Yellow) Urine Clarity Sl Cloudy (Clear) Urine pH 5.5 (5-8) Ur Specific [place] 1.010 (1.005-1.025) Urine Protein 30 H (Neg-Trace) mg/dL Urine Ketones Trace H (Negative) mg/dL Urine Blood Moderate H (Negative) Urine Nitrite Positive H (Negative) Urine Bilirubin Negative (Negative) Urine Urobilinogen 1.0 H (Up to 0.2) mg/dL Ur Leukocyte Esterase Negative (Negative) Urine RBC 3-5 H (0-2) HPF Urine WBC 10-20 H (0-5) HPF Ur Epithelial Cells Rare (Negative) HPF Urine Crystals Negative (Negative) HPF Urine Bacteria Moderate (Negative) HPF Urine Casts Negative (Negative) LPF Urine Mucus Trace (Negative) Ur Culture Indicated? Yes Urine Glucose 500 H (Negative) mg/dL ABO/Rh Antibody Screen Crossmatch 07/29/25 07/29/25 07/29/25 Range/Units 08:56 08:35 08:27 WBC 2.44 L (4.4-10.8) 10^3/uL RBC 2.84 L (4.36-5.78) 10^6/uL Hgb 6.9 L* (13.5-17.5) g/dL Hct 23.2 L (40.0-50.0) % MCV 82 (80-95) fL MCH 24.3 L (27.0-33.0) pg MCHC 29.7 L (32.0-36.0) % RDW 19.9 H (11.8-14.1) % Plt Count 73 L (130-400) 10^3/uL MPV 10.9 (8.0-11.0) fL Immature Gran % 0.4 % Neutrophils % 61.0 % Lymphocytes % 19.7 % Monocytes % 11.1 % Eosinophils % 7.0 % Basophils % 0.8 % Nucleated RBC % 0.0 (0.0-0.3) % Absolute Neutrophils 1.49 (1.2-6.7) 10^3/uL Absolute Lymphocytes 0.48 L (1.2-3.4) 10^3/uL Absolute Monocytes 0.27 (0.1-0.8) 10^3/uL Absolute Eosinophils 0.17 (0.0-0.7) 10^3/uL Absolute Basophils 0.02 (0.0-0.2) 10^3/uL RBC Morphology See Below Anisocytosis 2+ Microcytosis 2+ PT 13.4 H (9.1-11.1) sec INR 1.4 H (0.9-1.1) Sodium 148 H (136-145) mmol/L Potassium 3.8 (3.5-5.1) mmol/L Chloride 112 H (98-107) mmol/L Carbon Dioxide 23.5 (21.0-32.0) mmol/L Anion Gap 12.5 H (3-11) mmol/L BUN 20 H (7-18) mg/dL Creatinine 1.2 (0.70-1.30) mg/dL Est GFR (CKD-EPI 2020) 61.90 (mL/min/1.73m2) Glucose 102 (74-106) mg/dL Calcium 8.8 (8.5-10.1) mg/dL Magnesium 1.7 L (1.8-2.4) mg/dL Iron 14 L (65-175) ug/dL TIBC 301 (250-450) ug/dL Transferrin % Sat 5 L (20-55) % Total Bilirubin 1.3 H (0.2-1.0) mg/dL AST 18 (15-37) U/L ALT 10 L (16-63) U/L Alkaline Phosphatase 90 (46-116) U/L Ammonia 79 H (11-32) umol/L Troponin I 60 (<or=76) ng/L NT-Pro-B Natriuret Pep 1183 H (<300) pg/mL Total Protein 5.2 L (6.4-8.2) g/dL Albumin 2.4 L (3.4-5.0) g/dL Lipase 42 (<78) U/L Urine Color (Yellow) Urine Clarity (Clear) Urine pH (5-8) Ur Specific [place] (1.005-1.025) Urine Protein (Neg-Trace) mg/dL Urine Ketones (Negative) mg/dL Urine Blood (Negative) Urine Nitrite (Negative) Urine Bilirubin (Negative) Urine Urobilinogen (Up to 0.2) mg/dL Ur Leukocyte Esterase (Negative) Urine RBC (0-2) HPF Urine WBC (0-5) HPF Ur Epithelial Cells (Negative) HPF Urine Crystals (Negative) HPF Urine Bacteria (Negative) HPF Urine Casts (Negative) LPF Urine Mucus (Negative) Ur Culture Indicated? Urine Glucose (Negative) mg/dL ABO/Rh O Positive Antibody Screen NEGATIVE Crossmatch See Detail 07/29/25 11:30 Urine Culture - Pending Urine - Reflex from Ua Intake and Output - 24 Hour Total 07/29/25 07:58 thru 07/29/25 15:12 Intake Total 350 Balance 350 Weight 103.5 kg Intake: Blood Product 350 Rbc Leuko Reduced Unit 350 [id number] Falls Risk Assessment History of Falls Previous History 07/29/25 10:22 Contributing Factors Unstable,Impairments 07/29/25 10:22 Fall Total Score 21 07/29/25 10:22 Level of Risk Standard/Low Risk 07/29/25 10:22 Problems (Updated 07/29/25 @ 14:16 by Elia Arizmendi) Pyuria (Acute) DVT prophylaxis (Acute) Hepatic encephalopathy (Acute) Anemia (Chronic) v v v v v v v v v Sending and/or Receiving Nurses: Please use comment section below to note any information pertinent to the patient hand-off not included above. Information / Comments: pt arrived to the unit at 15:35. 1 unit of PRBCs infusing. VSS. on RA. Report received from: ED RN (name unknown)
--- NOTE | 2025-07-29 15:40 | PHA.REVIEW2 ---
Pharmacy Admission Review Admission Clinical Review Admission Pharmacy Review: Pyuria (Acute) DVT prophylaxis (Acute) Hepatic encephalopathy (Acute) Penicillins Allergy (Mild, Verified 06/04/25 02:20) Itching mussels Allergy (Verified 06/04/25 02:20) Anaphylaxis morphine Adverse Reaction (Severe, Verified 06/04/25 02:20) vomiting Resuscitation Status Full Code Height 5 ft 6 in Weight 103.5 kg Pharmacy Admission Review Renal Dosing Renal Dosing: BUN 20 mg/dL (7-18) H 07/29/25 08:27 Creatinine 1.2 mg/dL (0.70-1.30) 07/29/25 08:27 Medications needing adjustments: Reviewed (CrCl 57.1 mL/min) List of meds needing interventions: Current medications are okay Anticoagulation Anticoagulation: Hgb 6.9 g/dL (13.5-17.5) L* 07/29/25 08:27 Hct 23.2 % (40.0-50.0) L 07/29/25 08:27 Plt Count 73 10^3/uL (130-400) L 07/29/25 08:27 INR 1.4 (0.9-1.1) H 07/29/25 08:35 Creatinine 1.2 mg/dL (0.70-1.30) 07/29/25 08:27 DVT Prophylaxis: Reviewed (order on hold due to anemia, patient receiving blood transfusion today as well as iron transfusion) Medications: Apixaban (5mg BID) Relevant Labs Relevant Labs: Sodium 148 mmol/L (136-145) H 07/29/25 08:27 Potassium 3.8 mmol/L (3.5-5.1) 07/29/25 08:27 Chloride 112 mmol/L (98-107) H 07/29/25 08:27 Magnesium 1.7 mg/dL (1.8-2.4) L 07/29/25 08:27 Electrolytes, C-Reactive P, ESR: Reviewed (received IV magnesium infusion this afternoon) DM Control DM Control: Glucose 102 mg/dL (74-106) 07/29/25 08:27 DM Control: Reviewed Insulin Dosing, Diabetic Medication: Has order for SS insulin and Jardiance 25mg daily Cardiac Review Cardiac Review: Troponin I 59 ng/L (<or=76) 07/29/25 12:04 NT-Pro-B Natriuret Pep 1183 pg/mL (<300) H 07/29/25 08:27 Blood Pressure 131/99 1512 Blood Pressure 139/78 1505 Blood Pressure 157/80 1405 Blood Pressure 157/80 1401 Blood Pressure 166/66 1346 Blood Pressure 138/74 1335 Blood Pressure 138/74 1331 Blood Pressure 154/97 1320 Blood Pressure 154/97 1315 Blood Pressure 151/71 1301 BP, HR, EF%: Reviewed (HR 108) List meds needing interventions: Has orders for furosemide 40mg BID, losartan 50mg BID and spironolactone 12.5mg daily QTc Review QTc: Reviewed (478 from 07/29/25) IV to PO Switch IV Medications: Reviewed Home Meds Home Med List reviewed: Intervened Relevent Home Meds Not ordered & why?: metformin (on hold per H+P) and nitroglycerin (PRN) Changed 2 orders to patients own (non-formulary) - zinc oxide cream and lidocaine 4% patch. Asked nurse to see if these can be brought in from home if patient wants them. Also asked nurse to check if patient currently has a patch so we will know when to take it off. Waiting to hear back. Current Meds Current Medication Order Review: Intervened Comments: Changed IV ED access order Pharmacy Antibiotic Review Comments: UC pending, received a dose of Fosfomycin in ED. Per H+P will not treat unless patient becomes symptomatic.
[2025-07-29] MEDS: MAGNESIUM SULFATE 1 GM/100 ML BAG IV_INF (16:05)
[2025-07-29] MEDS: Fosfomycin Tromethamine 3 GM PACKET PO (17:04)
[2025-07-29] MEDS: Melatonin 3 MG TAB 6 MG PO (20:00)
[2025-07-29] MEDS: Prazosin 5 MG CAP 10 MG PO (20:00)
[2025-07-29] MEDS: Losartan 50 MG TAB PO (20:01)
[2025-07-29] MEDS: Rifaximin 550 MG TAB PO (20:01)
[2025-07-30 05:03] VITALS: BP 133/73; PULSE 87; RESP 16; TEMP 36.7; O2SAT 94
[2025-07-30] MEDS: Levothyroxine 100 MCG TAB PO (06:04)
[2025-07-30] MEDS: Acetaminophen 325 MG TAB 650 MG PO (06:41)
[2025-07-30 06:45] LABS: HCT 24.9 % (40.0-50.0); HGB 7.6 g/dL (13.5-17.5); MCH 24.4 pg (27.0-33.0); MCHC 30.5 % (32.0-36.0); MCV 80 fL (80-95); MPV 10.2 fL (8.0-11.0); RBC 3.11 10^6/uL (4.36-5.78); RDW 19.0 % (11.8-14.1); RDW-SD 55.8 fL; WBC 2.62 10^3/uL (4.4-10.8)
[2025-07-30 07:05] LABS: ALT 9 U/L (16-63); Albumin 2.5 g/dL (3.4-5.0); Alkaline Phosphatase 90 U/L (46-116); Anion Gap 10.0 mmol/L (3-11); BUN 21 mg/dL (7-18); Bilirubin, Total 1.8 mg/dL (0.2-1.0); CO2 26.0 mmol/L (21.0-32.0); Calcium 8.5 mg/dL (8.5-10.1); Chloride 109 mmol/L (98-107); Estimated GFR 77.04 (mL/min/1.73m2); Glucose 109 mg/dL (74-106); Magnesium 1.8 mg/dL (1.8-2.4); Potassium 3.7 mmol/L (3.5-5.1); Sodium 145 mmol/L (136-145); Total Protein 5.2 g/dL (6.4-8.2)
[2025-07-30 07:07] LABS: INR 1.3 (0.9-1.1); Prothrombin Time 12.6 sec (9.1-11.1)
[2025-07-30 07:12] VITALS: BP 136/78; PULSE 88; RESP 17; TEMP 36.5; O2SAT 95
[2025-07-30 07:24] LABS: Platelet Count 72 10^3/uL (130-400)
[2025-07-30 07:38] LABS: AST 10 U/L (15-37)
[2025-07-30] MEDS: Lactulose 20 GM/30 ML CUP 10 GM PO (07:59)
[2025-07-30] MEDS: Potassium Chloride 20 MEQ TABCR PO (08:00)
[2025-07-30] MEDS: Pantoprazole 40 MG TABCR PO (08:00)
[2025-07-30] MEDS: Furosemide 40 MG TAB PO (08:00)
[2025-07-30] MEDS: Rifaximin 550 MG TAB PO (08:00)
[2025-07-30] MEDS: Empaglifozin 25 MG TAB PO (08:00)
[2025-07-30] MEDS: Losartan 50 MG TAB PO (08:02)
[2025-07-30] MEDS: Tamsulosin 0.4 MG CAPCR PO (08:02)
[2025-07-30] MEDS: Spironolactone 25 MG TAB 12.5 MG PO (08:02)
[2025-07-30] MEDS: Venlafaxine 75 MG CAPCR PO (08:02)
[2025-07-30] MEDS: Venlafaxine 150 MG CAPCR PO (08:02)
[2025-07-30] MEDS: Normal Saline Flush 10 ML SYR IVP (08:02)
[2025-07-30] MEDS: Ferrous Sulfate 325 MG TAB PO (08:02)
[2025-07-30] MEDS: MAGNESIUM SULFATE 2 GM/50 ML BAG IV_INF (08:31)
--- NOTE | 2025-07-30 09:27 | INITIAL_ITS ---
Date of service: 07/30/25 Time of Service: 09:27 Care Management Initial Assmt Initial Assessment Reason for Hospitalization: anemia Functional Status/Living Situation Patient Presentation: Merrill was sitting up in bed when CM met with him. He readily engaged with CM, well known to him from past hospital stays. He was admitted yesterday with anemia (Hgb 6.9) and was transfused with one unit of blood. There was no evidence of bleeding overnight and his VS and H&H remained stable. He will be transferred back to [facility] this afternoon via RCT. Town of Residence: [facility] Resides with: Other (SNF) Significant Other/Family: Local Natural Supports: Cely and son Scott Employment Status: Retired Instrumental Activities of Daily Living (ADLs): Requires support Medications Medication Management: No Issues/Barriers identified Physical Functioning/Mobility Assistive Device: wheelchair and walker Advance Directives Advance Directives: Do you have an Advance Directive: Y , 02:24 AD On File at [facility]: N 08/05/24, 10:22 Date Asked 07/29/25 07/29/25, 08:45 AD Date Reviewed COLST On File at [facility] No 12/04/23, 16:58 COLST Date Scanned Code Status Resuscitation Status Full Code Portal Pt does not currently have a portal and education provided: Yes Insurance Coverage/Financial Issues Insurance: [facility] Care Team Visit Care Team Role Provider Type Jimenez Payne MD MD [facility] STAFF PHYSICIAN Maryann Whitt Primary Care Provider NURSE PRACTITIONER Ciarra Torres, JARETT Emergency Provider NURSE PRACTITIONER Elia Arizmendi Admit Provider [facility] STAFF PHYSICIAN Attending Provider Discharge Anticipated Barriers to Discharge: None Identified Patient/Family Education Needs: Review discharge instructions, discuss Ask Me Three Transportation: RCT Plan: Merrill will be transferred back to [facility] later today. He will follow up with the facility providers and plan of care and transport via RCT. Social Determinants of Health Screening Social Determinants of health last assessed in clinic: 07/30/25 Will the Patient Participate in the Screening?: Yes Do you worry about having a steady place to live?: no Problems where you live: no known problems In the past 12 months, have you had to go without electric, gas, oil or water in your home?: no 1. Within the past 12 months, we worried whether our food would run out before we got money to buy more.: Never true 2. Within the past 12 months, the food we bought just didn't last and we didn't have money to get more.: Never true Has lack of transportation kept you from medical appointments or from doing t hings needed for daily living?: no Has anyone in your life made you feel unsafe or unsupported?: no How hard is it for you to pay for the very basics like food, housing, medical care, and heating? Would you say it is:: Not hard at all Do you want help finding or keeping work or a job?: I do not need or want help If for any reason you need help with day-to-day activities such as bathing, preparing meals, shopping, managing finances, etc., do you get the help you need?: I don?t need any help How often do you feel lonely or isolated from those around you?: Never Do you speak a language other than Khmer at home?: No PFSH All Active Problems (Updated 07/29/25 @ 14:16 by Elia Arizmendi) Pyuria (Acute) DVT prophylaxis (Acute) Acute UTI (Acute) Hepatic encephalopathy (Acute) Encounter for ostomy care education (Acute) Stomach ache (Acute) Delayed gastric transit (Acute) Small bowel obstruction (Acute) Anemia (Chronic) History of creation of ostomy (Acute) Contusion (Acute) Liver mass (Acute) Vomiting (Acute) Elevated lactic acid level (Acute) Acute UTI (Acute) Symptomatic bradycardia (Acute) Acute hypokalemia (Acute) Family conflict (Acute) Chest pain in adult (Acute) Fall (Acute) Chronic low back pain (Chronic) Hematuria (Acute) Leukopenia (Acute) Oral candidiasis (Acute) Sepsis syndrome (Acute) Gram-negative bacteremia (Acute) Cellulitis (Acute) Anemia of chronic disease (Acute) Ventricular ectopy (Acute) Sinus bradycardia (Acute) Leukocytosis (Acute) Hypertension (Chronic) Elevated lactic acid level (Acute) No-show for appointment (Acute) Left rotator cuff tear (Acute) Acute UTI (urinary tract infection) (Acute) Weakness (Acute) Non-ST elevation [place] (NSTEMI) (Acute) Pre-syncope (Acute) Frequent falls (Acute) Orthostatic hypotension (Acute) Hypokalemia (Acute) Bradycardia (Acute) Multiple falls (Acute) Acute metabolic encephalopathy (Acute) Medication monitoring encounter (Acute) Chest pain (Acute) Medical History (Updated 07/29/25 @ 14:16 by Elia Arizmendi) Hypothyroidism (acquired) Depression Lower urinary obstructive symptom CHF (congestive heart failure) EF 25%- 2023 GIB (gastrointestinal bleeding) Chronic GERD BPH (benign prostatic hyperplasia) Major depression, recurrent, chronic Severe obesity (BMI >= 40) Diabetes mellitus treated with oral medication Anemia associated with acute blood loss Acute on chronic HFrEF (heart failure with reduced ejection fraction) Anemia Splenomegaly Thrombocytopenia Colostomy care Thrombocytopenia Chronic atrial fibrillation Type 2 diabetes mellitus CHF exacerbation ANETTE (obstructive sleep apnea) Chronic heart failure with reduced ejection fraction (HFrEF, <= 40%) Anemia Cirrhosis of liver without ascites Diabetes Goals of care, counseling/discussion Lactic acidosis UTI (urinary tract infection) Urinary tract infection Advanced care planning/counseling discussion Palliative care encounter Followed by [facility] Bowel obstruction Sepsis Heart failure with reduced ejection fraction Hypothyroidism Small bowel obstruction Lactic acid acidosis Creatinine elevation Acute UTI Anticoagulated COVID Recurrent intestinal obstruction History of colon cancer Chronic anticoagulation Portal hypertension Cirrhosis TIPs placed (?when, [facility]? 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, Dx [facility] as per pt Non-insulin dependent type 2 diabetes mellitus Incontinence Hypertension Scleral icterus Surgical History S/P TIPS (transjugular intrahepatic portosystemic shunt) H/O left hemicolectomy Colostomy in place Social History Smoking/Tobacco Use Status: Former Tobacco Use Smoking risk assessment performed?: Yes Alcohol Intake: former Drug use: Never Substance use type: does not use Housing: half-way Do you feel safe at home: Yes Do you feel safe in your relationship?: Yes Additional Social history: from [facility]
--- NOTE | 2025-07-30 10:52 | W.PM.DS.N ---
Date of service: 07/30/25 Time of Service: 10:53 DS: Diagnosis Discharge Diagnosis (1) Anemia: Status: Chronic (2) Acute on chronic HFrEF (heart failure with reduced ejection fraction): (3) Hepatic encephalopathy: Status: Acute (4) Chronic atrial fibrillation: (5) Goals of care, counseling/discussion: (6) Major depression, recurrent, chronic: (7) Non-insulin dependent type 2 diabetes mellitus: (8) Hypothyroidism: (9) DVT prophylaxis: Status: Acute (10) Pyuria: Status: Acute Discharge Plan Disposition Patient Disposition: Residential Facility(SNF) Condition: Serious Condition: Good Discharge Details Reason For Visit: severe anemia, CHF, hepatic encephalopathy Admit Date/Time: 07/29/25 13:25 Admit Provider: Elia Arizmendi Attending Provider: Elia Arizmendi Primary Care Provider: Maryann Whitt Hospital Course Hospital Course: Patient initially admitted with signs and symptoms of acute on chronic anemia likely due to cirrhosis. He was given 1 unit of packed red blood cells with improvement of his hemoglobin from 6.9-7.6. Additionally, patient also has heart failure and did receive increased dose of Lasix due to receiving 1 unit of packed red blood cells. On the morning of discharge patient had significant improvement of his symptoms and was determined that he was stable for discharge back t to nursing facility. o subacute rehab. Home Meds and New Rx's Prescriptions: Continued pantoprazole 40 mg Tablet,Delayed Release (Dr/Ec) 40 mg PO DAILY Eliquis 5 mg Tablet 5 mg PO BID Patient Comments: taking per pt nitroglycerin 0.4 mg Tablet, Sublingual 0.4 mg sublingual Q5 MIN PRN X3 PRNQty: 30 0RF rifaximin 550 mg Tablet 550 mg PO BID prazosin 5 mg capsule 10 mg PO QPM tamsulosin 0.4 mg Capsule 0.4 mg PO DAILY metformin 500 mg tablet extended release 24hr 1,000 mg PO BID bisacodyl [Dulcolax (bisacodyl)] 10 mg suppository 10 mg SD DAILY PRN ondansetron 4 mg tablet,disintegrating 4 mg PO Q6H PRN potassium chloride 20 mEq tablet extended release 20 meq PO DAILY spironolactone [Aldactone] 25 mg tablet 12.5 mg PO DAILY venlafaxine [Effexor XR] 75 mg capsule,extended release 24hr 75 mg PO DAILY Patient Comments: takes w/150mg capsule for total dose of 225mg daily lactulose 20 gram/30 mL Solution 15 ml PO TID Rx Instructions: to maintain colostomy output of 3-4 bags per day diclofenac sodium [Arthritis Pain (diclofenac)] 1 % gel 2 g topical TID Rx Instructions: apply to single elbow, wrist or hand; for hand includes palm/fingers/back of hand melatonin 3 mg tablet 6 mg PO HS Patient Comments: TAKE ONE TABLET BY MOUTH AT BEDTIME ferrous sulfate 325 mg (65 mg iron) Tablet 325 mg PO DAILY Qty: 0 0RF empagliflozin 25 mg Tablet 25 mg PO DAILY levothyroxine 200 mcg Tablet 100 mcg PO QAM Qty: 0 0RF acetaminophen [Tylenol] 325 mg Capsule 650 mg PO Q6H MDD 3000 PRN losartan [Cozaar] 50 mg tablet 50 mg PO BID furosemide [Lasix] 40 mg tablet See Rx Instructions .ROUTE .COMPLEX Qty: 60 0RF Rx Instructions: 40 mg every morning and 20 mg early afternoon zinc oxide 10 % cream 1 applic topical BID lidocaine [Aspercreme (lidocaine)] 4 % adhesive patch,medicated 1 patch topical DAILY Rx Instructions: may leave on for up to 12 hrs No Action venlafaxine 150 mg capsule,extended release 24hr 150 mg PO DAILY Discharge Instructions Activity:: Activity as Tolerated Equipment/Supplies:: No Equipment Needed Diet:: As Tolerated Discharge Orders Discharge Orders: Discharge Order (Routine); Ordered 07/30/25 Ordered By: Jimenez Payne DS: Summary Time Spent with Patient providing and/or coordinating discharge services: Greater than 30 minutes Status at Discharge Functional status at discharge: independent ambulation Overall status at discharge: patient is back to baseline Mental Status: mental status grossly normal Speech and Movement: speech and movement normal Mood: congruent mood Affect: normal affect Quality:SDOH Health Related Social Needs: Health related social needs transpo insecurity Health related social needs details sometimes has trouble getting a ride to places - has to wait on son to be available Exam Narrative Exam Narrative: Well-appearing older gentleman sitting up in chair no acute distress, awake, alert, oriented to person and place which is baseline, heart regulate rhythm, lungs good auscultation bilaterally, abdomen soft, nontender, nondistended Psych Mental Status: mental status grossly normal Speech and Movement: speech and movement normal Mood: congruent mood Affect: normal affect DS: Data Vitals/I&O Vitals and I&O: Vital Signs Temperature 97.7 F 07/30/25 07:12 Temperature Source Temporal Artery Scan 07/30/25 07:12 Pulse 88 07/30/25 07:12 Pulse 106 H 07/29/25 14:10 Respiratory Rate 17 07/30/25 07:12 Respiratory Effort Normal, Non-Labored 07/29/25 17:06 Respiratory Depth Normal 07/29/25 17:06 Respiratory Pattern Normal 07/29/25 17:06 Blood Pressure 136/78 07/30/25 07:12 Blood Pressure Mean 97 07/30/25 07:12 Pulse Oximetry 95 07/30/25 07:12 Oxygen Delivery Method Nasal Cannula 07/30/25 07:12 Oxygen Flow Rate 2 07/30/25 07:12 Pain Level 7 07/30/25 07:12 Comment Pt sleeping 07/30/25 03:25 Intake & Output 07/29/25 07/30/25 07/30/25 17:59 05:59 17:59 Intake Total 610 / 610 10 / 620 Output Total 700 / 700 300 / 300 Balance 610 / 610 -690 / -80 -300 / -300 Weight 228 lb 2.855 oz 228 lb 2.855 oz Intake: IV 260 / 260 10 / 270 Blood Product 350 / 350 Rbc Leuko Reduced Unit 350 / 350 [id number] Output: Urine 700 / 700 300 / 300 Other: Urine Color Yellow Light Mady Urine Appearance Clear Clear Urine Odor Normal Strong Comment Patient was using the urinal and was incontinent in his brief and pad on the bed. Stool Characteristics Liquid Brown Data Completed and Pending Labs on day of discharge: Labs from last 24 hours 07/30/25 07/29/25 07/29/25 06:20 12:04 11:30 WBC 2.62 L RBC 3.11 L Hgb 7.6 L Hct 24.9 L MCV 80 MCH 24.4 L MCHC 30.5 L RDW 19.0 H Plt Count 72 L MPV 10.2 PT 12.6 H INR 1.3 H Sodium 145 Potassium 3.7 Chloride 109 H Carbon Dioxide 26.0 Anion Gap 10.0 BUN 21 H Creatinine 1.0 Est GFR (CKD-EPI 2020) 77.04 Glucose 109 H Calcium 8.5 Magnesium 1.8 Total Bilirubin 1.8 H AST 10 L ALT 9 L Alkaline Phosphatase 90 Troponin I 59 Total Protein 5.2 L Albumin 2.5 L Urine Color Yellow Urine Clarity Sl Cloudy Urine pH 5.5 Ur Specific [place] 1.010 Urine Protein 30 H Urine Ketones Trace H Urine Blood Moderate H Urine Nitrite Positive H Urine Bilirubin Negative Urine Urobilinogen 1.0 H Ur Leukocyte Esterase Negative Urine RBC 3-5 H Urine WBC 10-20 H Ur Epithelial Cells Rare Urine Crystals Negative Urine Bacteria Moderate Urine Casts Negative Urine Mucus Trace Ur Culture Indicated? Yes Urine Glucose 500 H ABO/Rh Antibody Screen Crossmatch 07/29/25 08:56 WBC RBC Hgb Hct MCV MCH MCHC RDW Plt Count MPV PT INR Sodium Potassium Chloride Carbon Dioxide Anion Gap BUN Creatinine Est GFR (CKD-EPI 2020) Glucose Calcium Magnesium Total Bilirubin AST ALT Alkaline Phosphatase Troponin I Total Protein Albumin Urine Color Urine Clarity Urine pH Ur Specific [place] Urine Protein Urine Ketones Urine Blood Urine Nitrite Urine Bilirubin Urine Urobilinogen Ur Leukocyte Esterase Urine RBC Urine WBC Ur Epithelial Cells Urine Crystals Urine Bacteria Urine Casts Urine Mucus Ur Culture Indicated? Urine Glucose ABO/Rh O Positive Antibody Screen NEGATIVE Crossmatch See Detail 07/29/25 11:30 Urine - Reflex from Ua Urine Culture - Pending Preliminary micro results at discharge 07/29/25 11:30 Urine - Reflex from Ua Urine Culture - Pending PFSH All Active Problems (Updated 07/29/25 @ 14:16 by Elia Arizmendi) Pyuria (Acute) DVT prophylaxis (Acute) Acute UTI (Acute) Hepatic encephalopathy (Acute) Encounter for ostomy care education (Acute) Stomach ache (Acute) Delayed gastric transit (Acute) Small bowel obstruction (Acute) Anemia (Chronic) History of creation of ostomy (Acute) Contusion (Acute) Liver mass (Acute) Vomiting (Acute) Elevated lactic acid level (Acute) Acute UTI (Acute) Symptomatic bradycardia (Acute) Acute hypokalemia (Acute) Family conflict (Acute) Chest pain in adult (Acute) Fall (Acute) Chronic low back pain (Chronic) Hematuria (Acute) Leukopenia (Acute) Oral candidiasis (Acute) Sepsis syndrome (Acute) Gram-negative bacteremia (Acute) Cellulitis (Acute) Anemia of chronic disease (Acute) Ventricular ectopy (Acute) Sinus bradycardia (Acute) Leukocytosis (Acute) Hypertension (Chronic) Elevated lactic acid level (Acute) No-show for appointment (Acute) Left rotator cuff tear (Acute) Acute UTI (urinary tract infection) (Acute) Weakness (Acute) Non-ST elevation NE (NSTEMI) (Acute) Pre-syncope (Acute) Frequent falls (Acute) Orthostatic hypotension (Acute) Hypokalemia (Acute) Bradycardia (Acute) Multiple falls (Acute) Acute metabolic encephalopathy (Acute) Medication monitoring encounter (Acute) Chest pain (Acute) Medical History (Updated 07/29/25 @ 14:16 by Elia Arizmendi) Hypothyroidism (acquired) Depression Lower urinary obstructive symptom CHF (congestive heart failure) EF 25%- 2023 GIB (gastrointestinal bleeding) Chronic GERD BPH (benign prostatic hyperplasia) Major depression, recurrent, chronic Severe obesity (BMI >= 40) Diabetes mellitus treated with oral medication Anemia associated with acute blood loss Acute on chronic HFrEF (heart failure with reduced ejection fraction) Anemia Splenomegaly Thrombocytopenia Colostomy care Thrombocytopenia Chronic atrial fibrillation Type 2 diabetes mellitus CHF exacerbation ANETTE (obstructive sleep apnea) Chronic heart failure with reduced ejection fraction (HFrEF, <= 40%) Anemia Cirrhosis of liver without ascites Diabetes Goals of care, counseling/discussion Lactic acidosis UTI (urinary tract infection) Urinary tract infection Advanced care planning/counseling discussion Palliative care encounter Followed by [facility] Bowel obstruction Sepsis Heart failure with reduced ejection fraction Hypothyroidism Small bowel obstruction Lactic acid acidosis Creatinine elevation Acute UTI Anticoagulated COVID Recurrent intestinal obstruction History of colon cancer Chronic anticoagulation Portal hypertension Cirrhosis TIPs placed (?when, [facility] [place] [facility]? 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, Dx [facility] as per pt Non-insulin dependent type 2 diabetes mellitus Incontinence Hypertension Scleral icterus Surgical History S/P TIPS (transjugular intrahepatic portosystemic shunt) H/O left hemicolectomy Colostomy in place Social History Smoking/Tobacco Use Status: Former Tobacco Use Smoking risk assessment performed?: Yes Alcohol Intake: former Drug use: Never Substance use type: does not use Housing: detention Do you feel safe at home: Yes Do you feel safe in your relationship?: Yes Additional Social history: from [facility] Time Spent with Patient Time Spent with Patient: <45 minutes Time was spent: preparing to see the patient(eg.review tests), obtaining and/or reviewing separately otained hiistory, ordering medications,tests, procedures, referring, communicating with other health critical care technician, indepentently interpreting results, counseling the patient and care coordination
[2025-07-30 12:02] VITALS: BP 142/82; PULSE 95; RESP 17; TEMP 36.7; O2SAT 93
[2025-07-30] MEDS: Insulin Aspart 300 UNITS/3 ML PEN SC (12:14)
== END 2025-07-30 12:30 | disposition skilled nursing facility (03) ==
LOC: ER 13:38 → MS 14:48
PROVIDERS: Admitting Provider Family Medicine; Emergency Provider Registered Nurse Emergency; PCP Nurse Practitioner Adult Health; Responsible Provider Family Medicine; Visit Provider Family Medicine
DX: K74.60 Unspecified cirrhosis of liver (principal); I13.0 Hypertensive heart and chronic kidney disease with heart failure and stage 1 through stage 4 chronic kidney disease, or unspecified chronic kidney disease; I50.23 Acute on chronic systolic (congestive) heart failure; D63.8 Anemia in other chronic diseases classified elsewhere; I48.20 Chronic atrial fibrillation, unspecified; K76.82 Hepatic encephalopathy; N18.9 Chronic kidney disease, unspecified; F33.9 Major depressive disorder, recurrent, unspecified; E03.9 Hypothyroidism, unspecified; Z79.01 Long term (current) use of anticoagulants; Z79.899 Other long term (current) drug therapy; R07.89 Other chest pain; M25.512 Pain in left shoulder; R06.02 Shortness of breath; R82.81 Pyuria; Z85.038 Personal history of other malignant neoplasm of large intestine; Z79.4 Long term (current) use of insulin; I25.10 Atherosclerotic heart disease of native coronary artery without angina pectoris; E11.22 Type 2 diabetes mellitus with diabetic chronic kidney disease; D69.6 Thrombocytopenia, unspecified; K76.6 Portal hypertension
CPT/HCPCS: 00123; 36415; 74177; 80053; 83690; 85027; 86850; 86900; 86901; 86920; 87077; 93005; 99285; 71045; 71260; 81003; 81015; 82140; 83540; 83550; 83735; 83880; 84484; 85025; 85610; 87086; 87186; 93010; 99222; 99238; G0378; J1437; J1815; J3475; J3490; P9016

== ENCOUNTER 2025-08-02 10:42 | Outpatient (REF) | payer SELFPAY ==
[2025-08-02 11:10] LABS: Abs Immature Grans 0.06 10^3/uL (0.0-0.06); HCT 25.3 % (40.0-50.0); HGB 7.3 g/dL (13.5-17.5); Immature Grans % 1.6 %; MCH 24.6 pg (27.0-33.0); MCHC 28.9 % (32.0-36.0); MPV 10.9 fL (8.0-11.0); RBC 2.97 10^6/uL (4.36-5.78); RDW 19.2 % (11.8-14.1); RDW-SD 57.2 fL; WBC 3.80 10^3/uL (4.4-10.8)
[2025-08-02 11:12] LABS: MCV 85 fL (80-95)
[2025-08-02 11:26] LABS: Anisocytosis 2+; Hypochromasia 1+; Microcytosis 1+; Polychromasia Present
[2025-08-02 11:27] LABS: Platelet Count 85 10^3/uL (130-400)
[2025-08-02 11:33] LABS: ALT 16 U/L (16-63); AST 26 U/L (15-37); Albumin 2.5 g/dL (3.4-5.0); Alkaline Phosphatase 105 U/L (46-116); Anion Gap 10.6 mmol/L (3-11); BUN 22 mg/dL (7-18); Bilirubin, Total 1.0 mg/dL (0.2-1.0); CO2 24.4 mmol/L (21.0-32.0); Calcium 8.5 mg/dL (8.5-10.1); Chloride 108 mmol/L (98-107); Estimated GFR 68.71 (mL/min/1.73m2); Glucose 199 mg/dL (74-106); Potassium 3.7 mmol/L (3.5-5.1); Sodium 143 mmol/L (136-145); Total Protein 5.1 g/dL (6.4-8.2)
== END 2025-08-02 10:43 | disposition home or self-care (01) ==
LOC: LBN 10:42
PROVIDERS: PCP Nurse Practitioner Adult Health; Visit Provider Nurse Practitioner Adult Health
DX: D50.0 Iron deficiency anemia secondary to blood loss (chronic) (principal)
CPT/HCPCS: 80053; 85025

== ENCOUNTER 2025-08-08 14:02 | Outpatient (REF) | payer MEDICARE, SELFPAY ==
[2025-08-08 14:47] LABS: Abs Immature Grans 0.01 10^3/uL (0.0-0.06); HCT 28.2 % (40.0-50.0); HGB 8.4 g/dL (13.5-17.5); Immature Grans % 0.3 %; MCH 27.0 pg (27.0-33.0); MCHC 29.8 % (32.0-36.0); MCV 91 fL (80-95); MPV 10.6 fL (8.0-11.0); RBC 3.11 10^6/uL (4.36-5.78); RDW 27.0 % (11.8-14.1); RDW-SD 85.3 fL; WBC 2.91 10^3/uL (4.4-10.8)
[2025-08-08 14:53] LABS: Iron 73 ug/dL (65-175)
[2025-08-08 15:03] LABS: Anisocytosis 1+; Platelet Count 75 10^3/uL (130-400); Polychromasia Present
[2025-08-08 15:06] LABS: Ferritin 189 ng/mL (26-388)
== END 2025-08-08 14:03 | disposition home or self-care (01) ==
LOC: LBN 14:02
PROVIDERS: PCP Nurse Practitioner Adult Health; Visit Provider Nurse Practitioner Adult Health
DX: D50.0 Iron deficiency anemia secondary to blood loss (chronic) (principal)
CPT/HCPCS: 82728; 83540; 85025

== ENCOUNTER 2025-08-10 00:05 | Emergency (ER) | payer MEDICARE, SELFPAY ==
[2025-08-10] VITALS (46 sets, daily range): BP systolic 125–172; BP diastolic 67–111; PULSE 87–117; RESP 16–22; TEMP 35.9; O2SAT 92–97
--- NOTE | 2025-08-10 | DI.CT_ITS ---
Exam(s) CT CHEST/ABD/PEL WO EXAM: CT CHEST/ABD/PEL WO CLINICAL HISTORY: Vomiting, cough, SOb, rule out aspiration/obstruct TECHNIQUE: Imaging Protocol: Axial computed tomography images with coronal and sagittal reformatted images were created and reviewed. Computer aided detection (CAD) was utilized. COMPARISON: CT CT CHEST/ABD/PEL W from 07/29/2025 FINDINGS: Exam is limited due to lack of IV contrast. The examination is limited due to patient motion artifact. CHEST: Tracheobronchial tree: Patent where visualized. No bronchiectasis. Pulmonary parenchyma: There are moderate size bilateral pleural effusions with subjacent opacities which may represent atelectasis or pneumonia. No architectural distortion. Mediastinum and Erika: No dominant adenopathy or fluid collection. The esophagus is unremarkable. Thyroid gland: Unremarkable. Pleura: There is no evidence of a pneumothorax. Heart: The heart is enlarged. There is 3 vessel coronary artery calcification present. No pericardial effusion. Aorta: The ascending thoracic aorta measures 4 x 3.7 cm. Atherosclerotic calcification is present. Lymph nodes: There is no significant axillary or supraclavicular adenopathy. Bones:Within normal limits for the patient's age. Soft tissues: Gynecomastia. ABDOMEN: Liver: Normal density. There is a TIPS in place. There is a nodular liver consistent with hepatic cirrhosis. There is again seen an area of decreased attenuation in the left lobe of the liver which is stable. Gallbladder and Biliary Tract: No radiodense calculus or dilation. Pancreas: Normal density, no abnormal calcifications or inflammatory process. Spleen: The spleen is enlarged. Adrenals: There is unchanged thickening of the limbs of the left adrenal gland. Kidneys: Normal size, contour and axis. No radiodense stones or obstructive uropathy. No masses seen. Abdominal Aorta: Abdominal portion non-dilated. Atherosclerotic calcification is present. Bowel: There is a perforation of the stomach laterally (series 3 images 55 through 58. There is an air-fluid collection around the proximal stomach measuring at least 9.6 x 10.8 cm. (Series 3, image 56). The patient has had a prior resection of the rectum and sigmoid colon. There is a left lower quadrant colostomy. The bowel shows no evidence of obstruction or wall thickening. Anastomotic sutures are seen in 2 sections of the bowel. Peritoneal Cavity: No ascites, collection or mesenteric inflammatory response. No free air. Lymph Nodes: Within normal limits. Bones: Within normal limits for the patient's age. Soft Tissues: There are bilateral fat containing inguinal hernias. PELVIS: Bladder: Symmetric distention, no gross wall thickening. Reproductive Organs: Unremarkable as visualized. Lymph Nodes: Within normal limits. Bones: Within normal limits for the patient's age. IMPRESSION: 1. Gastric perforation with an air-fluid collection surrounding the proximal stomach. 2. Slight increase in size of the bilateral pleural effusions. 3. Subjacent infiltrates are seen in the lower lobes bilaterally. These may represent atelectasis or pneumonia. 4. No acute abdominal or pelvic process. 5. The preliminary [facility] report was reviewed. RADIATION DOSE DELIVERED: 767.99mGy.cm Total DLP DATA REPOSITORY: All CT scans at this facility are submitted to the National Radiology Data Registry (NRDR) Dose Index Registry (DIR) with the [employer] (A[employer]). RADIATION OPTIMIZATION: All CT scans at this facility use at least one of these dose optimization techniques: automated exposure control; mA and/or kV adjustment per patient size (includes targeted exams where dose is matched to clinical indication); or iterative reconstruction.
--- NOTE | 2025-08-10 00:23 | W.ED.GENAD ---
Discharge Plan Disposition Patient Disposition: Transfer-Acute Inpatient Care Specific Acute Inpt Facility: [facility] Condition: Serious Discharge Details Clinical Impression: Perforated gastric ulcer, Pleural effusion, Pneumonia Primary Care Provider: Maryann Whitt ED Provider: Js Martinez Home Meds and New Rx's Prescriptions: No Action tramadol 50 mg tablet 50 mg PO Q4H PRN venlafaxine 150 mg capsule,extended release 24hr 300 mg PO DAILY furosemide [Lasix] 40 mg tablet See Rx Instructions .ROUTE .COMPLEX Qty: 1 0RF Rx Instructions: 40 mg every morning pantoprazole 40 mg Tablet,Delayed Release (Dr/Ec) 40 mg PO DAILY Eliquis 5 mg Tablet 5 mg PO BID Patient Comments: taking per pt nitroglycerin 0.4 mg Tablet, Sublingual 0.4 mg sublingual Q5 MIN PRN X3 PRNQty: 30 0RF rifaximin 550 mg Tablet 550 mg PO BID prazosin 5 mg capsule 10 mg PO QPM tamsulosin 0.4 mg Capsule 0.4 mg PO DAILY metformin 500 mg tablet extended release 24hr 1,000 mg PO BID bisacodyl [Dulcolax (bisacodyl)] 10 mg suppository 10 mg MO DAILY PRN ondansetron 4 mg tablet,disintegrating 4 mg PO Q6H PRN potassium chloride 20 mEq tablet extended release 20 meq PO DAILY spironolactone [Aldactone] 25 mg tablet 12.5 mg PO DAILY lactulose 20 gram/30 mL Solution 15 ml PO TID Rx Instructions: to maintain colostomy output of 3-4 bags per day diclofenac sodium [Arthritis Pain (diclofenac)] 1 % gel 2 g topical TID Rx Instructions: apply to single elbow, wrist or hand; for hand includes palm/fingers/back of hand melatonin 3 mg tablet 6 mg PO HS Patient Comments: TAKE ONE TABLET BY MOUTH AT BEDTIME ferrous sulfate 325 mg (65 mg iron) Tablet 325 mg PO DAILY Qty: 0 0RF empagliflozin 25 mg Tablet 25 mg PO DAILY levothyroxine 200 mcg Tablet 100 mcg PO QAM Qty: 0 0RF venlafaxine 150 mg capsule,extended release 24hr 300 mg PO DAILY acetaminophen [Tylenol] 325 mg Capsule 650 mg PO Q6H MDD 3000 PRN losartan [Cozaar] 50 mg tablet 50 mg PO BID zinc oxide 10 % cream 1 applic topical BID lidocaine [Aspercreme (lidocaine)] 4 % adhesive patch,medicated 1 patch topical DAILY Rx Instructions: may leave on for up to 12 hrs Enema 19-7 gram/118 mL enema 118 ml MO ONCE levothyroxine 100 mcg capsule 100 mcg PO DAILY sorbitol 70 % solution 30 ml PO TID PRN Rx Instructions: do not exceed 5 doses per 24 hrs HPI General Date/Time Provider Initiated Documentation: 08/10/25 00:08. HPI Narrative: This 80-year-old male patient with a past medical history of atrial fibrillation on Eliquis and Coreg, HFrEF with an LVEF of 24% on 02/14/2024, insulin-dependent diabetes mellitus, obstructive sleep apnea, coronary artery disease, chronic kidney disease, cirrhosis with recurrent episode of hepatic encephalopathy prior hemicolectomy and TIPS procedure, current colostomy, multiple prior episodes of small bowel obstruction in the past, likely secondary to an adhesion, who presents today for abdominal pain and vomiting. Patient had an episode or 2 of vomiting at the health [facility] rehab facility. He was brought over for further assessment. Questionable slight confusion. No fever. No other historical components. Patient admits to some abdominal pain. No chest pain. No other complaints. Related Data Home Medications ?Medication ?Instructions ?Recorded ?Confirmed apixaban 5 mg tablet (Eliquis) 5 mg PO BID 11/08/22 08/10/25 pantoprazole 40 mg tablet,delayed 40 mg PO DAILY 11/08/22 08/10/25 release nitroglycerin 0.4 mg sublingual 0.4 mg sublingual Q5 MIN PRN X3 02/10/23 08/10/25 tablet PRN #30 tabs empagliflozin 25 mg tablet 25 mg PO DAILY 04/09/23 08/10/25 levothyroxine 200 mcg tablet 100 mcg (1/2 x 200 mcg) PO QAM #0 04/10/23 08/10/25 Held on 08/10/25. tabs Instructions: Pt Stopped/Never Started rifaximin 550 mg tablet 550 mg PO BID 07/07/23 08/10/25 venlafaxine 150 mg 300 mg PO DAILY 03/05/24 08/10/25 capsule,extended release 24 hr acetaminophen 325 mg capsule 650 mg PO Q6H PRN 05/12/24 08/10/25 (Tylenol) prazosin 5 mg capsule 10 mg PO QPM 08/04/24 08/10/25 tamsulosin 0.4 mg capsule 0.4 mg PO DAILY 08/04/24 08/10/25 metformin 500 mg tablet,extended 1,000 mg PO BID 01/17/25 08/10/25 release 24hr (osmotic) bisacodyl 10 mg rectal suppository 10 mg MO DAILY PRN 02/26/25 08/10/25 (Dulcolax (bisacodyl)) lactulose 20 gram/30 mL oral 15 ml PO TID 02/26/25 08/10/25 solution ondansetron 4 mg disintegrating 4 mg PO Q6H PRN 02/26/25 08/10/25 tablet potassium chloride 20 mEq 20 meq PO DAILY 02/26/25 08/10/25 tablet,extended release spironolactone 25 mg tablet 12.5 mg PO DAILY 02/26/25 08/10/25 (Aldactone) diclofenac sodium 1 % topical gel 2 g topical TID 04/02/25 08/10/25 (Arthritis Pain (diclofenac)) losartan 50 mg tablet (Cozaar) 50 mg PO BID 04/19/25 08/10/25 melatonin 3 mg tablet 6 mg PO HS 05/15/25 08/10/25 ferrous sulfate 325 mg (65 mg 325 mg PO DAILY #0 tabs 05/16/25 08/10/25 iron) tablet zinc oxide 10 % topical cream 1 applic topical BID 06/04/25 08/10/25 lidocaine 4 % topical patch 1 patch topical DAILY 07/29/25 08/10/25 (Aspercreme (lidocaine)) furosemide 40 mg tablet (Lasix) See Rx Instructions .Route 08/04/25 08/10/25 .COMPLEX #1 tab tramadol 50 mg tablet 50 mg PO Q4H PRN 08/04/25 08/10/25 venlafaxine 150 mg 300 mg PO DAILY 08/04/25 08/10/25 capsule,extended release 24 hr Held on 08/10/25. Instructions: Duplicate levothyroxine 100 mcg capsule 100 mcg PO DAILY 08/10/25 08/10/25 sodium phosphates 19 gram-7 118 ml MO ONCE 08/10/25 08/10/25 gram/118 mL enema (Enema) sorbitol 70 % solution 30 ml PO TID PRN 08/10/25 08/10/25 Previous Rx's ?Medication ?Instructions ?Recorded nitroglycerin 0.4 mg sublingual 0.4 mg sublingual Q5 MIN PRN X3 02/10/23 tablet PRN #30 tabs levothyroxine 200 mcg tablet 100 mcg (1/2 x 200 mcg) PO QAM #0 04/10/23 Held on 08/10/25. tabs Instructions: Pt Stopped/Never Started ferrous sulfate 325 mg (65 mg 325 mg PO DAILY #0 tabs 05/16/25 iron) tablet furosemide 40 mg tablet (Lasix) See Rx Instructions .Route 08/04/25 .COMPLEX #1 tab Allergies Allergy/AdvReac Type Severity Reaction Status Date / Time Penicillins Allergy Mild Itching Verified 06/04/25 02:20 mussels Allergy Anaphylaxis Verified 06/04/25 02:20 morphine AdvReac Severe vomiting Verified 06/04/25 02:20 General Stated Complaint: AMS/LOC ANNA: 3 Exam Narrative Exam Narrative: 1.Const: Well-nourished, Well-developed, appearing stated age 2.Eyes: PERRL, no conjunctival injection, and symmetrical lids. 3.ENT: Atraumatic external nose and ears. Moist MM. Neck: Symmetric, trachea midline, No thyromegaly. 4.CVS: +S1/S2, Peripheral pulses 2+ and equal in all extremities. Brisk capillary refill in all extremities. 5.RESP: Unlabored respiratory effort. Clear to auscultation bilaterally. No wheezes rales or rhonchi 6.GI: Soft, mildly distended, mild tenderness throughout. Bowel sounds present. Ostomy site pink with no abnormalities otherwise. 7.MSK: Normocephalic/Atraumatic, Extremities w/o deformity or ttp No cyanosis or clubbing, Normal movement of all extremities 8.Skin: Warm, Dry. No rashes or lesions. 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 Sensation grossly intact, no focal neurologic deficits. 10.Psych: (AAO) x3. Appropriate mood and affect Course Vital Signs Vital signs: Vital Signs Temperature 35.9 C L 08/10/25 00:00 Pulse 111 H 08/10/25 00:00 Respiratory Rate 22 08/10/25 00:00 Blood Pressure 130/75 08/10/25 00:00 Pulse Oximetry 97 08/10/25 00:00 Temperature 35.9 C L 08/10/25 00:04 Temperature Source Tympanic 08/10/25 00:04 Pulse 111 H 08/10/25 00:04 Respiratory Rate 22 08/10/25 00:04 Respiratory Effort Short of Breath, Labored 08/10/25 00:04 Respiratory Depth Deep 08/10/25 00:04 Respiratory Pattern Normal 08/10/25 00:04 Blood Pressure 130/75 08/10/25 00:04 Blood Pressure Position Sitting 08/10/25 00:04 Pulse Oximetry 97 08/10/25 00:04 Oxygen Delivery Method Nasal Cannula 08/10/25 00:04 Oxygen Flow Rate 2 08/10/25 00:04 Pain Level 2 08/10/25 00:04 Medical Decision Making This 80-year-old male patient with a past medical history of atrial fibrillation on Eliquis and Coreg, HFrEF with an LVEF of 24% on 02/14/2024, insulin-dependent diabetes mellitus, obstructive sleep apnea, coronary artery disease, chronic kidney disease, cirrhosis with recurrent episode of hepatic encephalopathy prior hemicolectomy and TIPS procedure, current colostomy, multiple prior episodes of small bowel obstruction in the past, likely secondary to an adhesion, who presents today for abdominal pain and vomiting. Patient had an episode or 2 of vomiting at the health and rehab facility. He was brought over for further assessment. Questionable slight confusion. No fever. No other historical components. Patient admits to some abdominal pain. No chest pain. No other complaints. Physical exam demonstrates mildly distended abdomen, clear lung sounds. Concern for potential obstruction. Will get CT imaging gently rehydrate monitor closely and reassess. 4:10 AM Laboratory workup has returned, labs are at baseline, hemoglobin at baseline at 9.2, platelets at baseline at 92, electrolytes stable. CT scan has returned and shows evidence of notable gastric perforation with a large fluid collection measuring 11 x 9 cm. There is also evidence of bilateral pleural effusions consolidation the longest concerning for pneumonia. Patient's vital signs remained stable, heart rate is 100, blood pressure normal. Afebrile. Patient still does have mild abdominal tenderness on exam however when reevaluating he states that I feel fine now. Patient does have penicillin allergy of itchiness, we will start Cipro and Flagyl. Protonix and famotidine have been administered IV. Because of the patient's ejection fraction of 24%, anesthesia team does not feel comfortable bringing the patient to the OR. We did reach out to [facility], I discussed the case with Dr. Alvarez and he agrees the need for transfer and accepts the patient for transfer. I did contact the patient's and discussed the case with her. All questions have been answered. Patient is a full code, and consents to potential surgical interventions. I have extensively reviewed the treatment plan with the patient. I have addressed all patient concerns at this time. I have also discussed the plan with the admitting physician and they agree with the current assessment and plan and have agreed to assume responsibility for the patient. All parties demonstrate verbal understanding and agreement with our assessment and plan at this time. The documentation in this chart was dictated using [employer] ( [employer] ) dictation software. Please excuse any dictation errors. At time of transfer the patient was reassessed and continued to demonstrate No signs of acute respiratory distress requiring intubation, hemodynamic instability requiring pressor support, or rapidly declining mental status. FINDINGS: Limitations: No intravenous contrast was administered, limiting evaluation for some pathologies. Lungs: No focal consolidation seen. Pleural spaces: No pleural effusion. Heart: No pericardial effusion. Lymph nodes: No acute abnormality. Vasculature: No thoracic aortic aneurysm. Bones/joints: No acute pertinent abnormality appreciated. Soft tissues: No acute pertinent abnormality appreciated. IMPRESSION: No acute findings. FINDINGS: Limitations: Mild motion artifact. No contrast was administered, limiting evaluation for some pathologies. Lungs: Consolidation in the lower lobes of both lungs. Pleural spaces: Large right and moderate left pleural effusion. Heart: Cardiomegaly. Coronary arteries: Coronary artery calcifications. Liver: Cirrhotic liver. Cyst in the left hepatic lobe. Gallbladder and biliary ducts: No radiodense gallbladder calculi seen. Pancreas: No CT evidence for acute pancreatitis. Spleen: Splenomegaly. Adrenal glands: Adrenal thickening. Kidneys and ureters: No hydronephrosis. Stomach and bowel: There is perforation of the lateral wall of the body of the stomach with adjacent extraluminal gas and fluid collection measuring 11.1 x 9.5 cm. The stomach appears thickened but is suboptimally evaluated due to incomplete distension. Left lower quadrant ostomy. Dilated small bowel loops in the lower abdomen. Patulous surgical anastomosis in the pelvis. Appendix: No evidence of appendicitis. Intraperitoneal space: Questionable small amount of extraluminal gas adjacent to the proximal duodenum, versus volume averaging. Vasculature: Atherosclerotic changes in the aorta and its branches. Portosystemic shunt. Evidence for portal hypertension including splenomegaly. Arterial calcifications. Lymph nodes: Multiple mesenteric and retroperitoneal lymph nodes. Left pelvic lymph nodes. Urinary bladder: No acute findings. Reproductive: No acute findings. Extraperitoneal space: Stranding in the presacral fat. Bones/joints: No pertinent acute abnormality seen. Soft tissues: Gynecomastia. IMPRESSION: 1. Gastric perforation as described above. 2. Dilated small bowel loops in the lower abdomen, could reflect obstruction and/or partial ileus. Follow-up as clinically warranted. 3. Cirrhosis with evidence for portal hypertension. 4. Bilateral pleural effusions. 5. Consolidation in the lower lobes of both lungs. Consider atelectasis, pneumonia. Follow-up as clinically warranted. 6. Additional findings as above. 7. THIS REPORT CONTAINS FINDINGS THAT MAY BE CRITICAL TO PATIENT CARE. The findings were verbally communicated via telephone conference with JS MARTINEZ at 3:23 AM EDT on 08/10/2025. The findings were acknowledged and understood. Thank you for allowing us to participate in the care of your patient. Dictated and Authenticated by: Daina Oro MD 08/10/2025 3:24 AM Eastern Time ([place] & [place]) Quality:SDOH Health Related Social Needs: Health related social needs transpo insecurity Health related social needs details sometimes has trouble getting a ride to places - has to wait on son to be available [facility] All Active Problems (Updated 08/10/25 @ 04:16 by Js Martinez DO) Pneumonia (Acute) Pleural effusion (Acute) Perforated gastric ulcer (Acute) DVT prophylaxis (Acute) Acute UTI (Acute) Encounter for ostomy care education (Acute) Stomach ache (Acute) Delayed gastric transit (Acute) Small bowel obstruction (Acute) Anemia (Chronic) History of creation of ostomy (Acute) Contusion (Acute) Liver mass (Acute) Vomiting (Acute) Elevated lactic acid level (Acute) Acute UTI (Acute) Symptomatic bradycardia (Acute) Acute hypokalemia (Acute) Family conflict (Acute) Chest pain in adult (Acute) Fall (Acute) Chronic low back pain (Chronic) Hematuria (Acute) Leukopenia (Acute) Oral candidiasis (Acute) Sepsis syndrome (Acute) Gram-negative bacteremia (Acute) Cellulitis (Acute) Anemia of chronic disease (Acute) Ventricular ectopy (Acute) Sinus bradycardia (Acute) Leukocytosis (Acute) Hypertension (Chronic) Elevated lactic acid level (Acute) No-show for appointment (Acute) Left rotator cuff tear (Acute) Acute UTI (urinary tract infection) (Acute) Weakness (Acute) Non-ST elevation IL (NSTEMI) (Acute) Pre-syncope (Acute) Frequent falls (Acute) Orthostatic hypotension (Acute) Hypokalemia (Acute) Bradycardia (Acute) Multiple falls (Acute) Acute metabolic encephalopathy (Acute) Medication monitoring encounter (Acute) Chest pain (Acute) Medical History (Updated 08/10/25 @ 04:16 by Js Martinez DO) Hypothyroidism (acquired) Depression Lower urinary obstructive symptom CHF (congestive heart failure) EF 25%- 2023 GIB (gastrointestinal bleeding) Chronic GERD BPH (benign prostatic hyperplasia) Major depression, recurrent, chronic Severe obesity (BMI >= 40) Diabetes mellitus treated with oral medication Anemia associated with acute blood loss Acute on chronic HFrEF (heart failure with reduced ejection fraction) Anemia Splenomegaly Thrombocytopenia Colostomy care Thrombocytopenia Chronic atrial fibrillation Type 2 diabetes mellitus CHF exacerbation ANETTE (obstructive sleep apnea) Chronic heart failure with reduced ejection fraction (HFrEF, <= 40%) Anemia Cirrhosis of liver without ascites Diabetes Goals of care, counseling/discussion Lactic acidosis UTI (urinary tract infection) Urinary tract infection Advanced care planning/counseling discussion Palliative care encounter Followed by [facility] Bowel obstruction Sepsis Heart failure with reduced ejection fraction Hypothyroidism Small bowel obstruction Lactic acid acidosis Creatinine elevation Acute UTI Anticoagulated COVID Recurrent intestinal obstruction History of colon cancer Chronic anticoagulation Portal hypertension Cirrhosis TIPs placed (?when, 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, Dx [facility] as per pt Non-insulin dependent type 2 diabetes mellitus Incontinence Hypertension Scleral icterus Surgical History (Updated 07/31/25 @ 00:02 by JOSE LUIS REICH) S/P TIPS (transjugular intrahepatic portosystemic shunt) H/O left hemicolectomy Colostomy in place Social History Smoking/Tobacco Use Status: Former Tobacco Use Smoking risk assessment performed?: Yes Alcohol Intake: former Drug use: Never Substance use type: does not use Housing: assisted Do you feel safe at home: Yes Do you feel safe in your relationship?: Yes Additional [facility] history[facility]
[2025-08-10] MEDS: Ondansetron 4 MG/2 ML VIAL IVP (00:28)
[2025-08-10] MEDS: Normal Saline 250 ML IV (00:30)
[2025-08-10 00:33] LABS: Abs Immature Grans 0.02 10^3/uL (0.0-0.06); HCT 30.9 % (40.0-50.0); HGB 9.2 g/dL (13.5-17.5); Immature Grans % 0.4 %; MCH 27.1 pg (27.0-33.0); MCHC 29.8 % (32.0-36.0); MCV 91 fL (80-95); RBC 3.39 10^6/uL (4.36-5.78); RDW 27.6 % (11.8-14.1); RDW-SD 88.9 fL; WBC 5.25 10^3/uL (4.4-10.8)
[2025-08-10 00:48] LABS: ALT 15 U/L (16-63); AST 23 U/L (15-37); Albumin 2.9 g/dL (3.4-5.0); Alkaline Phosphatase 104 U/L (46-116); Anion Gap 13.3 mmol/L (3-11); BUN 29 mg/dL (7-18); Bilirubin, Total 2.2 mg/dL (0.2-1.0); CO2 22.7 mmol/L (21.0-32.0); Calcium 8.9 mg/dL (8.5-10.1); Chloride 109 mmol/L (98-107); Estimated GFR 51.45 (mL/min/1.73m2); Glucose 130 mg/dL (74-106); Lipase 49 U/L (<78); Potassium 4.3 mmol/L (3.5-5.1); Sodium 145 mmol/L (136-145); Total Protein 6.0 g/dL (6.4-8.2)
[2025-08-10 00:56] LABS: Platelet Count 92 10^3/uL (130-400)
[2025-08-10 00:57] LABS: Anisocytosis 1+; Hypochromasia 1+
[2025-08-10 00:59] LABS: Poikilocytes 1+
--- NOTE | 2025-08-10 03:24 | DI.[facility]_ITS ---
PROCEDURE INFORMATION: Exam: CT Chest Without Contrast; Diagnostic Exam date and time: 08/10/2025 2:50 AM Age: 80 years old Clinical indication: Cough and shortness of breath; Prior surgery; Surgery date: 6+ months; Surgery type: Hemicolectomy, tips; Vomiting, cough, SOB, rule out aspiration/obstruct TECHNIQUE: Imaging protocol: Diagnostic computed tomography of the chest without contrast. 3D rendering (Not supervised by radiologist): MIP and/or 3D reconstructed images were created by the technologist. Radiation optimization: All CT scans at this facility use at least one of these dose optimization techniques: automated exposure control; mA and/or kV adjustment per patient size (includes targeted exams where dose is matched to clinical indication); or iterative reconstruction. COMPARISON: CT CHEST/ABD/PEL W 07/29/2025 9:49 AM FINDINGS: Limitations: No intravenous contrast was administered, limiting evaluation for some pathologies. Lungs: No focal consolidation seen. Pleural spaces: No pleural effusion. Heart: No pericardial effusion. Lymph nodes: No acute abnormality. Vasculature: No thoracic aortic aneurysm. Bones/joints: No acute pertinent abnormality appreciated. Soft tissues: No acute pertinent abnormality appreciated. IMPRESSION: No acute findings. PROCEDURE INFORMATION: Exam: CT Abdomen And Pelvis Without Contrast Exam date and time: 08/10/2025 2:50 AM Age: 80 years old Clinical indication: Cough and shortness of breath; Prior surgery; Surgery date: 6+ months; Surgery type: Hemicolectomy, tips; Vomiting, cough, SOB, rule out aspiration/obstruct TECHNIQUE: Imaging protocol: Computed tomography of the abdomen and pelvis without contrast. 3D rendering (Not supervised by radiologist): MIP and/or 3D reconstructed images were created by the technologist. Radiation optimization: All CT scans at this facility use at least one of these dose optimization techniques: automated exposure control; mA and/or kV adjustment per patient size (includes targeted exams where dose is matched to clinical indication); or iterative reconstruction. COMPARISON: CT CHEST/ABD/PEL W 07/29/2025 9:49 AM FINDINGS: Limitations: Mild motion artifact. No contrast was administered, limiting evaluation for some pathologies. Lungs: Consolidation in the lower lobes of both lungs. Pleural spaces: Large right and moderate left pleural effusion. Heart: Cardiomegaly. Coronary arteries: Coronary artery calcifications. Liver: Cirrhotic liver. Cyst in the left hepatic lobe. Gallbladder and biliary ducts: No radiodense gallbladder calculi seen. Pancreas: No CT evidence for acute pancreatitis. Spleen: Splenomegaly. Adrenal glands: Adrenal thickening. Kidneys and ureters: No hydronephrosis. Stomach and bowel: There is perforation of the lateral wall of the body of the stomach with adjacent extraluminal gas and fluid collection measuring 11.1 x 9.5 cm. The stomach appears thickened but is suboptimally evaluated due to incomplete distension. Left lower quadrant ostomy. Dilated small bowel loops in the lower abdomen. Patulous surgical anastomosis in the pelvis. Appendix: No evidence of appendicitis. Intraperitoneal space: Questionable small amount of extraluminal gas adjacent to the proximal duodenum, versus volume averaging. Vasculature: Atherosclerotic changes in the aorta and its branches. Portosystemic shunt. Evidence for portal hypertension including splenomegaly. Arterial calcifications. Lymph nodes: Multiple mesenteric and retroperitoneal lymph nodes. Left pelvic lymph nodes. Urinary bladder: No acute findings. Reproductive: No acute findings. Extraperitoneal space: Stranding in the presacral fat. Bones/joints: No pertinent acute abnormality seen. Soft tissues: Gynecomastia. IMPRESSION: 1. Gastric perforation as described above. 2. Dilated small bowel loops in the lower abdomen, could reflect obstruction and/or partial ileus. Follow-up as clinically warranted. 3. Cirrhosis with evidence for portal hypertension. 4. Bilateral pleural effusions. 5. Consolidation in the lower lobes of both lungs. Consider atelectasis, pneumonia. Follow-up as clinically warranted. 6. Additional findings as above. 7. THIS REPORT CONTAINS FINDINGS THAT MAY BE CRITICAL TO PATIENT CARE. The findings were verbally communicated via telephone conference with MARYCRUZ MARTINEZ at 3:23 AM EDT on 08/10/2025. The findings were acknowledged and understood. Dictated and Authenticated by: Daina Oro MD. Orderin Andreas Weinstein MD
[2025-08-10] MEDS: CIPROFLOXACIN 400 MG/200 ML BAG 200 MG IVPB (03:45)
[2025-08-10] MEDS: Pantoprazole 40 MG VIAL IVP (03:45)
[2025-08-10] MEDS: Famotidine 20 MG/2 ML VIAL IVP (03:45)
[2025-08-10] MEDS: metroNIDAZOLE 500 MG/100 ML BAG 100 MG IVPB (03:45)
== END 2025-08-10 04:49 | disposition short-term general hospital (02) ==
PROVIDERS: Emergency Provider Student in an Organized Health Care Education/Training Program; PCP Nurse Practitioner Adult Health
DX: K25.5 Chronic or unspecified gastric ulcer with perforation (principal); J18.9 Pneumonia, unspecified organism; J90 Pleural effusion, not elsewhere classified
CPT/HCPCS: 71250; 80053; 83690; 86850; 86900; 86901; 96361; 96365; 96375; 99285; 74176; 85025; J0744; J1836; J2405; J2470

== ENCOUNTER 2025-09-07 04:23 | Inpatient (IN) | payer OTHER, SELFPAY ==
[2025-09-07] VITALS (127 sets, daily range): BP systolic 89–171; BP diastolic 32–65; PULSE 54–105; RESP 10–25; TEMP 35.6–36.2; O2SAT 87–100
--- NOTE | 2025-09-07 03:15 | RT.EKG_ITS ---
APPROVED REPORT Exam: Resting ECG Reason for Exam: [facility] Patient Location: E HR:78 bpm ECG Measurements Heart Rate 78 AXIS TX [id number] P [id number] QRSd 134 QRS 21 QT 442 T 193 QTc 505 Conclusion Atrial fibrillation...? atrial activity Multiple ventricular premature complexes...V complexes w/ short R-R intervls Left bundle branch block...QRSd>120, broad/notched R I have reviewed and interpreted ECG and agree with software generated interpretation.
--- NOTE | 2025-09-07 03:45 | DI.CT_ITS ---
Exam(s) CT HEAD WO EXAM: CT HEAD WO CLINICAL HISTORY: altered. TECHNIQUE: Imaging Protocol: Axial computed tomography images with coronal and sagittal reformatted images were created and reviewed COMPARISON: CT CT HEAD CERVICAL SPINE WO from 04/19/2025 FINDINGS: Ventricles and Extra axial spaces: Normal in size and morphology for the patient's age. Hemorrhage: None. Cerebral parenchyma: No evidence of acute infarct or mass. 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 White matter changes of small vessel disease. Knff-hi-wqoglvqi atrophy. Midline shift: None. Brainstem/Cerebellum: Normal. Bones: No skull or facial fractures. Visualized Paranasal sinuses:Prior maxillary and ethmoid sinus surgery. Mucous retention cyst in the left maxillary sinus. Small air-fluid level in the right maxillary sinus as well as left posterior ethmoid sinus. Fluid in the posterior nasopharynx.. Mastoids: Clear. Soft Tissues: Unremarkable. ORBITS: Unremarkable. PITUITARY: Not enlarged. IMPRESSION: No acute intracranial process. The preliminary [facility] report was reviewed. RADIATION DOSE DELIVERED: 963.81mGy.cm Total DLP DATA REPOSITORY: All CT scans at this facility are submitted to the National Radiology Data Registry (NRDR) Dose Index Registry (DIR) with the [employer] ([employer]). RADIATION OPTIMIZATION: All CT scans at this facility use at least one of these dose optimization techniques: automated exposure control; mA and/or kV adjustment per patient size (includes targeted exams where dose is matched to clinical indication); or iterative reconstruction.
--- NOTE | 2025-09-07 03:45 | DI.CT_ITS ---
Exam(s) CT CHEST/ABD/PEL W EXAM: CT CHEST/ABD/PEL W CLINICAL HISTORY: altered, intubated, fall?. TECHNIQUE: Imaging Protocol: Axial computed tomography images with coronal and sagittal reformatted images were created and reviewed. Computer aided detection (CAD) was utilized. CONTRAST MATERIAL: Intravenous: Omnipaque 350 Contrast volume:100 ml Oral: yes / no COMPARISON: CT CT CHEST/ABD/PEL WO from 08/10/2025 FINDINGS: CHEST: Pulmonary parenchyma: bibasilar atelectasis. Respiratory motion. No dominant measurable mass. Tracheobronchial tree: Endotracheal tube with tip terminating at level of aortic arch. No bronchiectasis. No mucous plugging.No bronchial wall thickening. Pleura: Moderate left and small right pleural effusions. Right pleural effusion has decreased in size from the prior exam. No pneumothorax. Mediastinum: Within normal limits. Nasogastric tube. Pulmonary arteries: No visible emboli. Cardiovascular: The heart is enlarged. No pericardial effusion. Coronary artery calcifications. No pericardial effusion. Thoracic aorta non-dilated. Bones: Unremarkable for age. No lytic or blastic lesions. No compression fractures. Soft tissues: Bilateral gynecomastia. ABDOMEN and PELVIS: Liver: Normal cirrhotic appearing liver. Tips in place. No suspicious mass. Gallbladder and biliary tract: No evidence of stones or wall thickening. No biliary dilatation. Pancreas: Normal density, no abnormal calcifications or inflammatory process. Spleen: Enlarged. Kidneys: Normal size, contour and axis. No radiodense stones. No obstructive uropathy. No suspicious masses seen. Adrenal glands: No masses seen. Aorta: Abdominal portion non-dilated. Lymph nodes: Within normal limits. Soft tissues: Unremarkable diffuse body wall edema. Left-sided colostomy. Midline surgical scar. Bladder: Unremarkable. Bowel: Previously noted perigastric air in fluid collection is no longer present. No obstruction. Resection of the rectum and sigmoid colon. Edema involving the colon which may indicate colitis.. Peritoneal cavity: Small to moderate quantity of ascites, increasing from the prior exam. No focal collection. No mesenteric inflammatory response. No free air. Bones: Unremarkable for age. Degenerative changes in the spine and hips. Reproductive organs: Unremarkable for age. IMPRESSION: No acute posttraumatic abnormality in the chest, abdomen or pelvis. Decreased size of right pleural effusion. Increased quantity ascites. Resolution of perigastric fluid collection and air. Colonic edema could indicate colitis. Clinical correlation recommended. Increased quantity of of abdominal ascites. The preliminary [facility] report was reviewed. RADIATION DOSE DELIVERED: 1,398.9mGy.cm Total DLP DATA REPOSITORY: All CT scans at this facility are submitted to the National Radiology Data Registry (NRDR) Dose Index Registry (DIR) with the [employer] ([employer]). RADIATION OPTIMIZATION: All CT scans at this facility use at least one of these dose optimization techniques: automated exposure control; mA and/or kV adjustment per patient size (includes targeted exams where dose is matched to clinical indication); or iterative reconstruction.
--- NOTE | 2025-09-07 03:50 | DI.RAD_ITS ---
Exam(s) XR PORTABLE CHEST AP POST LINE EXAM: XR PORTABLE CHEST AP POST LINE CLINICAL HISTORY: post intubation TECHNIQUE: 2D digital imaging was performed. COMPARISON: CR XR PORTABLE CHEST AP from 07/29/2025 FINDINGS: An endotracheal tube has been inserted which lies at the level of the clavicles. A nasogastric or orogastric tube extends beneath the diaphragm. LUNGS: Small bilateral pleural effusions, left greater than right. HEART: Considerably enlarged but stable. AORTA: Normal diameter. Pulmonary vascular prominence. BONES: Unremarkable for age. Soft tissues: Tips noted. IMPRESSION: Small bilobed pleural effusions, left greater than right. Satisfactory placement of nasogastric and endotracheal tubes. The preliminary [facility] report was reviewed. DATA REPOSITORY: RADIATION DOSE DELIVERED:
[2025-09-07 03:55] LABS: BE (Venous) 0 mmol/L (-2-3); HCO3 (Venous) 24 mmol/L (23-28); O2 Sat (Venous) 84 %; TCO2 (Venous) 23 mmol/L (24-29); pCO2 (Venous) 32 mmHg (41-51); pO2 (Venous) 48 mmHg
[2025-09-07 03:59] LABS: Abs Immature Grans 0.00 10^3/uL (0.0-0.06); HCT 22.9 % (40.0-50.0); HGB 7.2 g/dL (13.5-17.5); Immature Grans % 0.0 %; MCH 28.2 pg (27.0-33.0); MCHC 31.4 % (32.0-36.0); MCV 90 fL (80-95); MPV 10.3 fL (8.0-11.0); RBC 2.55 10^6/uL (4.36-5.78); RDW 20.0 % (11.8-14.1); RDW-SD 66.6 fL; WBC 2.91 10^3/uL (4.4-10.8)
[2025-09-07] MEDS: Etomidate 20 MG/10 ML VIAL (04:01)
[2025-09-07] MEDS: Rocuronium 50 MG/5 ML SYR (04:05)
[2025-09-07] MEDS: PROPOFOL 1,000 MG/100 ML BTL 6.545 MG IV_INF (04:07)
[2025-09-07 04:12] LABS: PTT Activated 27.6 sec (20.6-30.2); Prothrombin Time 13.3 sec (9.1-11.1)
[2025-09-07 04:13] LABS: INR 1.3 (0.9-1.1)
[2025-09-07 04:22] LABS: Chloride 108 mmol/L (98-107); Potassium 3.8 mmol/L (3.5-5.1); Sodium 146 mmol/L (136-145)
[2025-09-07 04:25] LABS: Platelet Count 82 10^3/uL (130-400)
[2025-09-07 04:26] LABS: Hypochromasia 1+
[2025-09-07] MEDS: Omnipaque 350 MG/ML 100 ML BTL IJ (04:27)
[2025-09-07] MEDS: Normal Saline - Diluent 50 ML VIAL IJ (04:27)
[2025-09-07] MEDS: Normal Saline Flush 10 ML SYR IVP ×3 (04:27→20:41)
[2025-09-07 04:32] LABS: Troponin I 20 ng/L (<54)
[2025-09-07 04:35] LABS: TSH (W/Ref FT4) 7.23 uIU/mL (0.55-4.78)
[2025-09-07 04:40] LABS: ALT 23 U/L (10-49); AST 32 U/L (<34); Albumin 2.6 g/dL (3.4-5.0); Alkaline Phosphatase 132 U/L (46-116); Anion Gap 16.4 mmol/L (3-11); BUN 39 mg/dL (9-23); Bilirubin, Total 1.10 mg/dL (0.2-1.2); CO2 21.6 mmol/L (20.0-31.0); Calcium 8.1 mg/dL (8.3-10.6); Glucose 112 mg/dL (74-106); Total Protein 5.1 g/dL (5.7-8.2)
--- NOTE | 2025-09-07 04:45 | W.ED.GENAD ---
Discharge Plan Disposition Patient Disposition: Admit to [facility] Condition: Serious Discharge Details Clinical Impression: Hyperammonemic encephalopathy, Obtundation Primary Care Provider: Maryann Whitt ED Provider: Js Johns Home Meds and New Rx's Prescriptions: No Action tramadol 50 mg tablet 50 mg PO Q4H PRN venlafaxine 150 mg capsule,extended release 24hr 300 mg PO DAILY furosemide [Lasix] 40 mg tablet See Rx Instructions .ROUTE .COMPLEX Qty: 1 0RF Rx Instructions: 40 mg every morning pantoprazole 40 mg Tablet,Delayed Release (Dr/Ec) 40 mg PO DAILY Eliquis 5 mg Tablet 5 mg PO BID Patient Comments: taking per pt nitroglycerin 0.4 mg Tablet, Sublingual 0.4 mg sublingual Q5 MIN PRN X3 PRNQty: 30 0RF rifaximin 550 mg Tablet 550 mg PO BID prazosin 5 mg capsule 10 mg PO QPM tamsulosin 0.4 mg Capsule 0.4 mg PO DAILY metformin 500 mg tablet extended release 24hr 1,000 mg PO BID bisacodyl [Dulcolax (bisacodyl)] 10 mg suppository 10 mg MI DAILY PRN ondansetron 4 mg tablet,disintegrating 4 mg PO Q6H PRN potassium chloride 20 mEq tablet extended release 20 meq PO DAILY spironolactone [Aldactone] 25 mg tablet 25 mg PO DAILY lactulose 20 gram/30 mL Solution 20 ml PO TID Rx Instructions: to maintain colostomy output of 3-4 bags per day diclofenac sodium [Arthritis Pain (diclofenac)] 1 % gel 2 g topical TID Rx Instructions: apply to single elbow, wrist or hand; for hand includes palm/fingers/back of hand melatonin 3 mg tablet 6 mg PO HS Patient Comments: TAKE ONE TABLET BY MOUTH AT BEDTIME ferrous sulfate 325 mg (65 mg iron) Tablet 325 mg PO DAILY Qty: 0 0RF amiodarone 200 mg tablet 200 mg PO DAILY senna-docusate sodium Tablet 2 tab PO BID insulin glargine [Lantus Solostar U-100 Insulin] 100 unit/mL (3 mL) insulin pen 15 unit subcut HS empagliflozin 25 mg Tablet 25 mg PO DAILY levothyroxine 200 mcg Tablet 100 mcg PO QAM Qty: 0 0RF venlafaxine 150 mg capsule,extended release 24hr 300 mg PO DAILY acetaminophen [Tylenol] 325 mg Capsule 650 mg PO Q6H MDD 3000 PRN losartan [Cozaar] 50 mg tablet 50 mg PO BID zinc oxide 10 % cream 1 applic topical BID lidocaine [Aspercreme (lidocaine)] 4 % adhesive patch,medicated 1 patch topical DAILY Rx Instructions: may leave on for up to 12 hrs Enema 19-7 gram/118 mL enema 118 ml MI ONCE levothyroxine 100 mcg capsule 100 mcg PO DAILY sorbitol 70 % solution 30 ml PO TID PRN Rx Instructions: do not exceed 5 doses per 24 hrs HPI General Date/Time Provider Initiated Documentation: 09/07/25 04:25. HPI Narrative: This 80-year-old male patient who is FULL CODE with a past medical history of atrial fibrillation on Eliquis and Coreg, HFrEF with an LVEF of 24% on 02/14/2024, insulin-dependent diabetes mellitus, obstructive sleep apnea, coronary artery disease, chronic kidney disease, cirrhosis with recurrent episode of hepatic encephalopathy prior hemicolectomy and TIPS procedure, current colostomy, multiple prior episodes of small bowel obstruction in the past, likely secondary to an adhesion, as well as a recent upper GI bleed in 08/10/2025 with [address] transfer to [facility] and then recent discharge on 09/01 expected health and rehab after having a prolonged stay that included hyperammonemia, altered mental status and subsequent intubation, CRRT for metabolic acidosis. He presents tonight from health and rehab for altered mental status. Patient allegedly was doing well yesterday, he was seen sleeping comfortably at 2:30 AM, at that time around 3 AM he was out of his bed kneeling on the floor leaning over his bed. He was very altered, EMS was called, blood sugar was normal. He vomited once on the way over and had no evidence of a gag reflex. Answer some questions, but is notably altered. Patient is not able to add anything else to history. No other complaints at this time. Of note patient is on Eliquis currently, amiodarone, Lasix, and insulin, amongst other medications Related Data Home Medications Medication Instructions Recorded Confirmed apixaban 5 mg tablet (Eliquis) 5 mg PO BID 11/08/22 09/07/25 pantoprazole 40 mg tablet,delayed 40 mg PO DAILY 11/08/22 09/07/25 release nitroglycerin 0.4 mg sublingual 0.4 mg sublingual Q5 MIN PRN X3 02/10/23 09/07/25 tablet PRN #30 tabs Held on 09/07/25. Instructions: Pt Stopped/Never Started empagliflozin 25 mg tablet 25 mg PO DAILY 04/09/23 09/07/25 Held on 09/07/25. Instructions: Pt Stopped/Never Started levothyroxine 200 mcg tablet 100 mcg (1/2 x 200 mcg) PO QAM #0 04/10/23 09/07/25 Held on 09/07/25. tabs Instructions: Pt Stopped/Never Started rifaximin 550 mg tablet 550 mg PO BID 07/07/23 09/07/25 venlafaxine 150 mg 300 mg PO DAILY 03/05/24 09/07/25 capsule,extended release 24 hr Held on 09/07/25. Instructions: Pt Stopped/Never Started acetaminophen 325 mg capsule 650 mg PO Q6H PRN 05/12/24 09/07/25 (Tylenol) Held on 09/07/25. Instructions: Pt Stopped/Never Started prazosin 5 mg capsule 10 mg PO QPM 08/04/24 09/07/25 tamsulosin 0.4 mg capsule 0.4 mg PO DAILY 08/04/24 09/07/25 metformin 500 mg tablet,extended 1,000 mg PO BID 01/17/25 09/07/25 release 24hr (osmotic) bisacodyl 10 mg rectal suppository 10 mg MI DAILY PRN 02/26/25 09/07/25 (Dulcolax (bisacodyl)) Held on 09/07/25. Instructions: Pt Stopped/Never Started lactulose 20 gram/30 mL oral 20 ml PO TID 02/26/25 09/07/25 solution ondansetron 4 mg disintegrating 4 mg PO Q6H PRN 02/26/25 09/07/25 tablet Held on 09/07/25. Instructions: Pt Stopped/Never Started potassium chloride 20 mEq 20 meq PO DAILY 02/26/25 09/07/25 tablet,extended release Held on 09/07/25. Instructions: Pt Stopped/Never Started spironolactone 25 mg tablet 25 mg PO DAILY 02/26/25 09/07/25 (Aldactone) diclofenac sodium 1 % topical gel 2 g topical TID 04/02/25 09/07/25 (Arthritis Pain (diclofenac)) Held on 09/07/25. Instructions: Pt Stopped/Never Started losartan 50 mg tablet (Cozaar) 50 mg PO BID 04/19/25 09/07/25 Held on 09/07/25. Instructions: Pt Stopped/Never Started melatonin 3 mg tablet 6 mg PO HS 05/15/25 09/07/25 ferrous sulfate 325 mg (65 mg 325 mg PO DAILY #0 tabs 05/16/25 09/07/25 iron) tablet Held on 09/07/25. Instructions: Pt Stopped/Never Started zinc oxide 10 % topical cream 1 applic topical BID 06/04/25 09/07/25 Held on 09/07/25. Instructions: Pt Stopped/Never Started lidocaine 4 % topical patch 1 patch topical DAILY 07/29/25 09/07/25 (Aspercreme (lidocaine)) Held on 09/07/25. Instructions: Pt Stopped/Never Started furosemide 40 mg tablet (Lasix) See Rx Instructions .Route 08/04/25 09/07/25 .COMPLEX #1 tab tramadol 50 mg tablet 50 mg PO Q4H PRN 08/04/25 09/07/25 Held on 09/07/25. Instructions: Pt Stopped/Never Started venlafaxine 150 mg 300 mg PO DAILY 08/04/25 09/07/25 capsule,extended release 24 hr Held on 08/10/25. Instructions: Duplicate levothyroxine 100 mcg capsule 100 mcg PO DAILY 08/10/25 09/07/25 sodium phosphates 19 gram-7 118 ml MI ONCE 08/10/25 09/07/25 gram/118 mL enema (Enema) Held on 09/07/25. Instructions: Pt Stopped/Never Started sorbitol 70 % solution 30 ml PO TID PRN 08/10/25 09/07/25 Held on 09/07/25. Instructions: Pt Stopped/Never Started amiodarone 200 mg tablet 200 mg PO DAILY 09/07/25 09/07/25 insulin glargine 100 unit/mL (3 15 unit subcut HS 09/07/25 09/07/25 mL) subcutaneous pen (Lantus Solostar U-100 Insulin) senna-docusate sodium tablet 2 tab PO BID 09/07/25 09/07/25 Previous Rx's Medication Instructions Recorded nitroglycerin 0.4 mg sublingual 0.4 mg sublingual Q5 MIN PRN X3 02/10/23 tablet PRN #30 tabs Held on 09/07/25. Instructions: Pt Stopped/Never Started levothyroxine 200 mcg tablet 100 mcg (1/2 x 200 mcg) PO QAM #0 04/10/23 Held on 09/07/25. tabs Instructions: Pt Stopped/Never Started ferrous sulfate 325 mg (65 mg 325 mg PO DAILY #0 tabs 05/16/25 iron) tablet Held on 09/07/25. Instructions: Pt Stopped/Never Started furosemide 40 mg tablet (Lasix) See Rx Instructions .Route 08/04/25 .COMPLEX #1 tab Allergies Allergy/AdvReac Type Severity Reaction Status Date / Time Penicillins Allergy Mild Itching Verified 09/07/25 04:11 mussels Allergy Anaphylaxis Verified 09/07/25 04:11 morphine AdvReac Severe vomiting Verified 09/07/25 04:11 General Stated Complaint: CVA/TIA ANNA: 2 Exam Narrative Exam Narrative: 1.Const: Well-nourished, Well-developed, appearing stated age 2.Eyes: PERRL, no conjunctival injection, and symmetrical lids. 3.ENT: Atraumatic external nose and ears. Moist MM. Neck: Symmetric, trachea midline, No thyromegaly. 4.CVS: +S1/S2, Peripheral pulses 2+ and equal in all extremities. Brisk capillary refill in all extremities. 5.RESP: Somewhat rhonchorous breath sounds. No crackles or wheezes. 6.GI: Mildly firm, ostomy site intact, brown stool is present and leaking from the ostomy site. 7.MSK: Normocephalic/Atraumatic, Extremities w/o deformity or ttp No cyanosis or clubbing, Normal movement of all extremities 8.Skin: Warm, Dry. No rashes or lesions. 9.Neuro: GCS of 8, flexing to pain, with incomprehensible/inappropriate words, and eye-opening to pain only 10.Psych: (AAO) x0. Altered Course Vital Signs Vital signs: Vital Signs Pulse 80 09/07/25 03:57 Respiratory Rate 15 09/07/25 03:57 Pulse Oximetry 96 09/07/25 03:57 Pulse 80 09/07/25 03:57 Respiratory Rate 12 09/07/25 04:22 Respiratory Effort Mechanically Ventilated 09/07/25 04:22 Respiratory Pattern Irregular 09/07/25 04:22 Blood Pressure Position Supine 09/07/25 03:57 Pulse Oximetry 96 09/07/25 03:57 Oxygen Delivery Method Room Air 09/07/25 03:57 Oxygen Flow Rate 0 09/07/25 03:57 Lab/Test Results Lab/Test Results: 09/07/25 04:30 Blood Blood Culture - Pending 09/07/25 03:50 Blood Blood Culture - Pending Laboratory Tests Range/Units 09/07/25 03:50 WBC (4.4-10.8) 10^3/uL 2.91 L RBC (4.36-5.78) 10^6/uL 2.55 L Hgb (13.5-17.5) g/dL 7.2 L Hct (40.0-50.0) % 22.9 L MCV (80-95) fL 90 MCH (27.0-33.0) pg 28.2 MCHC (32.0-36.0) % 31.4 L RDW (11.8-14.1) % 20.0 H Plt Count (130-400) 10^3/uL 82 L MPV (8.0-11.0) fL 10.3 Immature Gran % % 0.0 Neutrophils % % 78.4 Lymphocytes % % 11.7 Monocytes % % 7.2 Eosinophils % % 2.4 Basophils % % 0.3 Nucleated RBC % (0.0-0.3) % 0.0 Absolute Neutrophils (1.2-6.7) 10^3/uL 2.28 Absolute Lymphocytes (1.2-3.4) 10^3/uL 0.34 L Absolute Monocytes (0.1-0.8) 10^3/uL 0.21 Absolute Eosinophils (0.0-0.7) 10^3/uL 0.07 Absolute Basophils (0.0-0.2) 10^3/uL 0.01 RBC Morphology See Below Hypochromasia 1+ PT (9.1-11.1) sec 13.3 H INR (0.9-1.1) 1.3 H APTT (20.6-30.2) sec 27.6 VBG pH (7.31-7.41) 7.48 H VBG pCO2 (41-51) mmHg 32 L VBG pO2 mmHg 48 VBG HCO3 (23-28) mmol/L 24 VBG Total CO2 (24-29) mmol/L 23 L VBG O2 Saturation % 84 VBG Base Excess (-2-3) mmol/L 0 VBG Lactate (<or=2.0) mmol/L 6.4 H* Sodium (136-145) mmol/L 146 H Potassium (3.5-5.1) mmol/L 3.8 Chloride (98-107) mmol/L 108 H Carbon Dioxide (20.0-31.0) mmol/L 21.6 Anion Gap (3-11) mmol/L 16.4 H BUN (9-23) mg/dL 39 H Creatinine (0.73-1.18) mg/dL 1.7 H Est GFR (CKD-EPI 2020) (mL/min/1.73m2) 39.65 Glucose (74-106) mg/dL 112 H Calcium (8.3-10.6) mg/dL 8.1 L Total Bilirubin (0.2-1.2) mg/dL 1.10 AST (<34) U/L 32 ALT (10-49) U/L 23 Alkaline Phosphatase (46-116) U/L 132 H Troponin I (<54) ng/L 20 Total Protein (5.7-8.2) g/dL 5.1 L Albumin (3.4-5.0) g/dL 2.6 L TSH (0.55-4.78) uIU/mL 7.23 H Procedure Airway Management Date of Procedure: 09/07/25 Time of Procedure: 04:56 Patient Consented: Verbally and Emergent Case Indication: Reduced level of consciousness Provider that performed the procedure: Js Johns Mallampati Class: 3 Sedation administered by provider performing procedure: Yes Sedation Given: Etomidate Route of Administration: IV. Etomidate dose(mg): 20. Preparation: company manager applied, pulse oximeter, supplemental O2 applied, reversal agents at bedside and suction/airway equipment at bedside. ASA Class: IV.. Induction setup: Pt. evaluated prior to induction, Pt. Ramped, Head of Bed Elevated, Apneic Oxygenation and Delayed Sequence Induction Ultrasound: Not used Airway Type: Intubation Laryngoscopy: Atraumatic Laryngoscopy. Grade: Airway Grade: 1. Airway Blades: Glidescope 3. Endotracheal Tube: Oral, Cuffed, Stylet Used and 7.5mm. Secured at(cm): 23. Placement Confirmation: Cuff inflated with minimally occlusive pressure, Secured with commercial device, Bilateral breath sounds, ETCO2 waveform present and Depth to teeth (23) Paralytic(indicate dose given): Rocuronium Medical Decision Making This 80-year-old male patient who is FULL CODE with a past medical history of atrial fibrillation on Eliquis and Coreg, HFrEF with an LVEF of 24% on 02/14/2024, insulin-dependent diabetes mellitus, obstructive sleep apnea, coronary artery disease, chronic kidney disease, cirrhosis with recurrent episode of hepatic encephalopathy prior hemicolectomy and TIPS procedure, current colostomy, multiple prior episodes of small bowel obstruction in the past, likely secondary to an adhesion, as well as a recent upper GI bleed in 08/10/2025 with subsequent transfer to [facility] and then recent discharge on 09/01 expected health and rehab after having a prolonged stay that included hyperammonemia, altered mental status and subsequent intubation, CRRT for metabolic acidosis. He presents tonight from health and rehab for altered mental status. Patient allegedly was doing well yesterday, he was seen sleeping comfortably at 2:30 AM, at that time around 3 AM he was out of his bed kneeling on the floor leaning over his bed. He was very altered, EMS was called, blood sugar was normal. He vomited once on the way over and had no evidence of a gag reflex. Answer some questions, but is notably altered. Patient is not able to add anything else to history. No other complaints at this time. Of note patient is on Eliquis currently, amiodarone, Lasix, and insulin, amongst other medications Exam demonstrates an altered male, GCS of 8, no gag reflex whatsoever on exam. Actively gagging occasionally and dry heaving. Ostomy site is currently leaking. Differential is broad but includes encephalopathy secondary to hyperammonemia, metabolic dysfunction, stroke, and infection. Patient is not a tPA or TNK candidate secondary to his Eliquis use. With the lack of gag reflex and the borderline GCS the decision was made to intubate, is currently admitted upstairs and came down to visit, she agrees with the patient's CODE STATUS of being full code. Patient was intubated without complication. Pending laboratory workup. Pending imaging. 5:56 AM Laboratory workup is returned, notably elevated ammonia greater than 120. Patient has no asterixis on exam, but this certainly is a likely cause of his confusion. Patient is on rifaximin, but for some reason has continued to have decline in his ammonia. He has lactic acidosis at 6.4, mild alkalosis on VBG. Platelets and white count are at baseline. Mild bump in his creatinine at 1.7. We will give a gentle fluid bolus of 500 cc over an hour. With the elevated ammonia level and the encephalopathy, I do feel that the patient would benefit from admission and is stable for an [facility] ICU. Contacted the hospitalist Dr. Jim, he agrees with the assessment and plan. I have extensively reviewed the treatment plan with the patient. I have addressed all patient concerns at this time. I have also discussed the plan with the admitting physician and they agree with the current assessment and plan and have agreed to assume responsibility for the patient. All parties demonstrate verbal understanding and agreement with our assessment and plan at this time. The documentation in this chart was dictated using [employer] dictation software. Please excuse any dictation errors. CT imaging negative for acute process. FINDINGS: Tubes, catheters and devices: Patient is intubated. Feeding tube present Lungs: Bibasilar lung consolidations Pleural spaces: Bilateral pleural effusions, slightly improved from prior Heart: Unremarkable. No cardiomegaly. No pericardial effusion. Lymph nodes: Unremarkable. No enlarged lymph nodes. Vasculature: Unremarkable. No aortic aneurysm. Bones/joints: Unremarkable. No acute fracture. Soft tissues: Unremarkable. IMPRESSION: No evidence of acute process FINDINGS: Lungs: See above Liver: Cirrhotic liver. Tips present Gallbladder and biliary ducts: Unremarkable. No calcified stones. No ductal dilation. Pancreas: Unremarkable. No ductal dilation. Spleen: Splenomegaly Adrenal glands: Normal. No mass. Kidneys and ureters: Unremarkable. No hydronephrosis. Stomach and bowel: Left hemicolectomy with left lower quadrant ostomy. Thickening of the colon wall, colitis versus colopathy . Resolved perigastric air and fluid collection Appendix: No evidence of appendicitis. Intraperitoneal space: Moderate ascites, worsened from prior Vasculature: Sequela of portal venous hypertension Lymph nodes: Unremarkable. No enlarged lymph nodes. Urinary bladder: Unremarkable as visualized. Reproductive: Unremarkable as visualized. Bones/joints: Unremarkable. No acute fracture. Soft tissues: Anasarca IMPRESSION: No evidence of acute process FINDINGS: Tubes, catheters and devices: Endotracheal tube tip at the level of the sternal inlet. Feeding tube tip not included on the exam but well below the level of the left hemidiaphragm Lungs: Venous congestion Pleural spaces: Bilateral pleural effusions left greater than right Heart/Mediastinum: Stable cardiomegaly. Bones/joints: Unremarkable. Organs: Status post tips IMPRESSION: Satisfactory endotracheal tube and feeding tube placements Thank you for allowing us to participate in the care of your patient. Dictated and Authenticated by: Alice Davis MD 09/07/2025 5:03 AM Eastern Time ([place] & [place]) FINDINGS: Brain: Area low-attenuation in the posterior parietal lobe is unchanged from prior exam. Recommend further evaluation clinically. No evidence of acute intraparenchymal hemorrhage. Cerebral ventricles: Moderate dilatation of the ventricular system and sulci diffusely, compatible with volume loss. Paranasal sinuses: Air-fluid level within maxillary sinuses and left posterior ethmoid air cell, slightly worsened in the interval, possible acute sinusitis. Left maxillary sinus polyps or mucous retention cysts, unchanged . Bilateral antrectomies Mastoid air cells: Visualized mastoid air cells are well aerated. Bones: Unremarkable. No acute fracture. Soft tissues: Unremarkable. IMPRESSION: 1. Slight interval worsening of sinusitis 2. No acute intracranial hemorrhage Quality:SDOH Health Related Social Needs: Health related social needs transpo insecurity Health related social needs details sometimes has trouble getting a ride to places - has to wait on son to be available Critical Care Time Critical Care Time Critical Care Time: Yes Total Critical Care Time: 45 Attestation: Upon my evaluation, this patient had a high probability of imminent or life-threatening deterioration, which required my direct attention, intervention, and personal management. I have personally provided 45 minutes of critical care time exclusive of time spent on separately billable procedures. Time includes review of laboratory data, radiology results, discussion with consultants, and monitoring for potential decompensation. Interventions were performed as documented. PFSH All Active Problems (Updated 09/07/25 @ 05:59 by Js Johns DO) Obtundation (Acute) Hyperammonemic encephalopathy (Acute) Pneumonia (Acute) Pleural effusion (Acute) Perforated gastric ulcer (Acute) DVT prophylaxis (Acute) Acute UTI (Acute) Encounter for ostomy care education (Acute) Stomach ache (Acute) Delayed gastric transit (Acute) Small bowel obstruction (Acute) Anemia (Chronic) History of creation of ostomy (Acute) Contusion (Acute) Liver mass (Acute) Vomiting (Acute) Elevated lactic acid level (Acute) Acute UTI (Acute) Symptomatic bradycardia (Acute) Acute hypokalemia (Acute) Family conflict (Acute) Chest pain in adult (Acute) Fall (Acute) Chronic low back pain (Chronic) Hematuria (Acute) Leukopenia (Acute) Oral candidiasis (Acute) Sepsis syndrome (Acute) Gram-negative bacteremia (Acute) Cellulitis (Acute) Anemia of chronic disease (Acute) Ventricular ectopy (Acute) Sinus bradycardia (Acute) Leukocytosis (Acute) Hypertension (Chronic) Elevated lactic acid level (Acute) No-show for appointment (Acute) Left rotator cuff tear (Acute) Acute UTI (urinary tract infection) (Acute) Weakness (Acute) Non-ST elevation CA (NSTEMI) (Acute) Pre-syncope (Acute) Frequent falls (Acute) Orthostatic hypotension (Acute) Hypokalemia (Acute) Bradycardia (Acute) Multiple falls (Acute) Acute metabolic encephalopathy (Acute) Medication monitoring encounter (Acute) Chest pain (Acute) Medical History (Updated 09/07/25 @ 05:59 by Js Johns DO) Hypothyroidism (acquired) Depression Lower urinary obstructive symptom CHF (congestive heart failure) EF 25%- 2023 GIB (gastrointestinal bleeding) Chronic GERD BPH (benign prostatic hyperplasia) Major depression, recurrent, chronic Severe obesity (BMI >= 40) Diabetes mellitus treated with oral medication Anemia associated with acute blood loss Acute on chronic HFrEF (heart failure with reduced ejection fraction) Anemia Splenomegaly Thrombocytopenia Colostomy care Thrombocytopenia Chronic atrial fibrillation Type 2 diabetes mellitus CHF exacerbation ANETTE (obstructive sleep apnea) Chronic heart failure with reduced ejection fraction (HFrEF, <= 40%) Anemia Cirrhosis of liver without ascites Diabetes Goals of care, counseling/discussion Lactic acidosis UTI (urinary tract infection) Urinary tract infection Advanced care planning/counseling discussion Palliative care encounter Followed by [facility] Bowel obstruction Sepsis Heart failure with reduced ejection fraction Hypothyroidism Small bowel obstruction Lactic acid acidosis Creatinine elevation Acute UTI Anticoagulated COVID Recurrent intestinal obstruction History of colon cancer Chronic anticoagulation Portal hypertension Cirrhosis TIPs placed (?when, [facility]? 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, Dx [facility] as per pt Non-insulin dependent type 2 diabetes mellitus Incontinence Hypertension Scleral icterus Surgical History (Updated 07/31/25 @ 00:02 by JOSE LUIS REICH) S/P TIPS (transjugular intrahepatic portosystemic shunt) H/O left hemicolectomy Colostomy in place Social History Smoking/Tobacco Use Status: Former Tobacco Use Smoking risk assessment performed?: Yes Alcohol Intake: former Drug use: Never Substance use type: does not use Housing: jail Do you feel safe at home: Yes Do you feel safe in your relationship?: Yes Additional Social history: from [facility]
--- NOTE | 2025-09-07 05:04 | DI.VRAD_ITS ---
PROCEDURE INFORMATION: Exam: XR Chest Exam date and time: 09/07/2025 4:15 AM Age: 80 years old Clinical indication: Device placement; S/P intubation and og placement TECHNIQUE: Imaging protocol: Radiologic exam of the chest. Views: 1 view. COMPARISON: CT CHEST/ABD/PEL WO 08/10/2025 2:50 AM FINDINGS: Tubes, catheters and devices: Endotracheal tube tip at the level of the sternal inlet. Feeding tube tip not included on the exam but well below the level of the left hemidiaphragm Lungs: Venous congestion Pleural spaces: Bilateral pleural effusions left greater than right Heart/Mediastinum: Stable cardiomegaly. Bones/joints: Unremarkable. Organs: Status post tips IMPRESSION: Satisfactory endotracheal tube and feeding tube placements Dictated and Authenticated by: Alice Davis MD. Orderin Andreas Weinstein MD
--- NOTE | 2025-09-07 05:17 | DI.VRAD_ITS ---
PROCEDURE INFORMATION: Exam: CT Head Without Contrast Exam date and time: 09/07/2025 4:27 AM Age: 80 years old Clinical indication: Altered mental status/memory loss; Confusion or disorientation; Altered/fall TECHNIQUE: Imaging protocol: Computed tomography of the head without contrast. Radiation optimization: All CT scans at this facility use at least one of these dose optimization techniques: automated exposure control; mA and/or kV adjustment per patient size (includes targeted exams where dose is matched to clinical indication); or iterative reconstruction. COMPARISON: CT HEAD CERVICAL SPINE WO 04/19/2025 9:33 AM no report FINDINGS: Brain: Area low-attenuation in the posterior parietal lobe is unchanged from prior exam. Recommend further evaluation clinically. No evidence of acute intraparenchymal hemorrhage. Cerebral ventricles: Moderate dilatation of the ventricular system and sulci diffusely, compatible with volume loss. Paranasal sinuses: Air-fluid level within maxillary sinuses and left posterior ethmoid air cell, slightly worsened in the interval, possible acute sinusitis. Left maxillary sinus polyps or mucous retention cysts, unchanged . Bilateral antrectomies Mastoid air cells: Visualized mastoid air cells are well aerated. Bones: Unremarkable. No acute fracture. Soft tissues: Unremarkable. IMPRESSION: 1. Slight interval worsening of sinusitis 2. No acute intracranial hemorrhage Dictated and Authenticated by: Alice Davis MD. Orderin Andreas Weinstein MD
[2025-09-07 05:35] LABS: Ammonia 129 umol/L (11-32); Troponin I 21 ng/L (<54)
--- NOTE | 2025-09-07 05:39 | DI.VRAD_ITS ---
PROCEDURE INFORMATION: Exam: CT Chest With Contrast; Diagnostic Exam date and time: 09/07/2025 4:52 AM Age: 80 years old Clinical indication: Injury or trauma; Blunt; Generalized; Other: Altered. Fall; Injury date: 09/07/25; Injury details: Altered, intubated, ? fall; Prior surgery; Surgery date: 6+ months; Surgery type: Hemicolectomy, tips TECHNIQUE: Imaging protocol: Diagnostic computed tomography of the chest with contrast. Radiation optimization: All CT scans at this facility use at least one of these dose optimization techniques: automated exposure control; mA and/or kV adjustment per patient size (includes targeted exams where dose is matched to clinical indication); or iterative reconstruction. Contrast material: OMNIPAQUE 350; Contrast volume: 100 ml; Contrast route: INTRAVENOUS (IV); COMPARISON: CT CHEST/ABD/PEL WO 08/10/2025 2:50 AM FINDINGS: Tubes, catheters and devices: Patient is intubated. Feeding tube present Lungs: Bibasilar lung consolidations Pleural spaces: Bilateral pleural effusions, slightly improved from prior Heart: Unremarkable. No cardiomegaly. No pericardial effusion. Lymph nodes: Unremarkable. No enlarged lymph nodes. Vasculature: Unremarkable. No aortic aneurysm. Bones/joints: Unremarkable. No acute fracture. Soft tissues: Unremarkable. IMPRESSION: No evidence of acute process PROCEDURE INFORMATION: Exam: CT Abdomen And Pelvis With Contrast Exam date and time: 09/07/2025 4:52 AM Age: 80 years old Clinical indication: Injury or trauma; Blunt; Generalized; Other: Altered. Fall; Injury date: 09/07/25; Injury details: Altered, intubated, ? fall; Prior surgery; Surgery date: 6+ months; Surgery type: Hemicolectomy, tips TECHNIQUE: Imaging protocol: Computed tomography of the abdomen and pelvis with contrast. Radiation optimization: All CT scans at this facility use at least one of these dose optimization techniques: automated exposure control; mA and/or kV adjustment per patient size (includes targeted exams where dose is matched to clinical indication); or iterative reconstruction. Contrast material: OMNIPAQUE 350; Contrast volume: 100 ml; Contrast route: INTRAVENOUS (IV); COMPARISON: CT CHEST/ABD/PEL WO 08/10/2025 2:50 AM FINDINGS: Lungs: See above Liver: Cirrhotic liver. Tips present Gallbladder and biliary ducts: Unremarkable. No calcified stones. No ductal dilation. Pancreas: Unremarkable. No ductal dilation. Spleen: Splenomegaly Adrenal glands: Normal. No mass. Kidneys and ureters: Unremarkable. No hydronephrosis. Stomach and bowel: Left hemicolectomy with left lower quadrant ostomy. Thickening of the colon wall, colitis versus colopathy . Resolved perigastric air and fluid collection Appendix: No evidence of appendicitis. Intraperitoneal space: Moderate ascites, worsened from prior Vasculature: Sequela of portal venous hypertension Lymph nodes: Unremarkable. No enlarged lymph nodes. Urinary bladder: Unremarkable as visualized. Reproductive: Unremarkable as visualized. Bones/joints: Unremarkable. No acute fracture. Soft tissues: Anasarca IMPRESSION: No evidence of acute process Dictated and Authenticated by: Alice Davis MD. Orderin Andreas Weinstein MD
[2025-09-07] MEDS: Normal Saline 500 ML IV (05:54)
--- NOTE | 2025-09-07 05:59 | NUR.NOTE ---
Nursing Note: Clary updated on plan of care and pending admission to ICU here at [facility]. She gives consent for this and expresses appreciation for the care delivered to both herself as well as , especially having her present in ED just before pt's intubation.
[2025-09-07 06:00] LABS: Glucose Negative (Negative)
[2025-09-07 06:09] LABS: C & S Indicated? Yes; WBC >50 HPF (0-5)
--- NOTE | 2025-09-07 06:14 | W.PM.HP.N ---
Date of service: 09/07/25 Time of Service: 06:14 Assessment and Plan Assessment and plan (1) Hyperammonemic encephalopathy: Start date: 09/07/25 Status: Acute Assessment and plan: This is a 80-year-old gentleman who was found with altered mental status from his baseline. In the morning of admission. His ammonia level was elevated over 100 which was of recent occurrence as well when he was in [facility]. He appeared to have a lactic acidosis which was compensated respiratory and a possible UTI as a reason for exacerbation of his chronic encephalopathy. He usually is on several oral agents for his elevated ammonia levels. He does have cirrhosis status post TIPS. He also appears to have RODOLFO which is recurrent when he has altered mental status with decreased intake. He has a history of CHF and was given only gentle bolus of IV fluids in the ED and will be given intermittent boluses in the ICU where he will be cared for being intubated because of lack of gag reflex, emesis prior to admission and to avoid aspiration pneumonia which is a high risk in this patient. Will continue his treatment for elevated ammonia levels through an OG tube and if he awakens continue treatment with rediscussion of CODE STATUS with palliative care being appropriate. He has a full code at this time. (2) Acute UTI: Start date: 09/07/25 Status: Acute Assessment and plan: Rocephin IV and follow-up on cultures. Patient had blood cultures and urine cultures. (3) Elevated lactic acid level: Start date: 09/07/25 Status: Acute Assessment and plan: Patient does have recurrent episodes of encephalopathy, RODOLFO and metabolic acidosis with metformin being given for diabetes. Metformin should probably be discontinued with insulin coverage for his diabetes. He does have evidence of chronic respiratory compensation for this recurrent acidosis. His intake is variable. (4) Acute kidney injury: Start date: 09/07/25 Status: Acute Assessment and plan: Recurrent with altered mental status having chronic encephalopathy which is easily exacerbated by his multiple disease processes. His intake is poor but IV fluid rehydration should be done with caution with history of CHF with reduced left-ventricular ejection fraction. (5) CHF (congestive heart failure): Assessment and plan: Hold Lasix) left on for now and reinitiate once patient is able to have oral intake and is extubated. Intermittent IV Lasix would be appropriate if needed. With his RODOLFO, avoid over diuresing. (6) Type 2 diabetes mellitus: Assessment and plan: Hold outpatient medical therapy and perform every 6 hours glucometer measurements with sliding scale coverage. (7) Chronic atrial fibrillation: Assessment and plan: This is stable with patient usually on Eliquis. While intubated and not taking oral therapy, Lovenox prophylaxis at 40 mg subcu daily with his creatinine clearance above 30. (8) Hypertension: Status: Chronic Assessment and plan: Adjust oral therapy once patient is awake with medication to be given through his OG if needed. (9) Cirrhosis: Assessment and plan: Chronic with multiple possible etiologies. He does have recurrent encephalopathy. He is status post TIPS. (10) Pancytopenia: Status: Chronic Assessment and plan: Associated with chronic liver disease process. This appears stable but if he dropped his hemoglobin below 6 consider transfusion. He remains a full code. (11) Hypothyroidism (acquired): Assessment and plan: TSH is always elevated and levothyroxine will be continued at present dose. His free T4 is not low. He does have supervision of his medical therapy which should help with adjusting dosage. (12) Colon cancer: Assessment and plan: Status post hemicolectomy with colostomy bag in the left lower quadrant. This is permanent. History of Present Illness History of Present Illness Chief Complaint: Found kneeling at bedside. Narrative: This is a 80-year-old male patient who recently was hospitalized at [facility] for possible perforated ulcer and had CRRT briefly as well as being intubated for altered neurostatus at that time. This is mid July and the patient was discharged to a local [place] [facility] for continued care. He is chronically ill with multiple medical problems including chronic atrial fibrillation on anticoagulation, intermittent exacerbation of CKD with poor intake and with chronic bowel treatment for hepatic encephalopathy which is recurrent as well. He also has multiple admissions for bowel obstruction. He is status post hemicolectomy for colon cancer. He does have a colostomy bag. He was in his usual state of health the day prior to admission at the [place] [facility] and early in the morning the day of admission was found at his bedside kneeling and leaning over his bed. He is brought to the ED for evaluation and because of lack of gag reflex and emesis prior to presentation, he was intubated to protect his airways. He did have metabolic acidosis which appears recurrent as well as a very high ammonia level with exacerbation of his hepatic encephalopathy. Studies did not reveal any acute pneumonia or central nervous system process, urinalysis was positive for possible UTI. He does have an indwelling Ohara catheter. The patient was not able to give further history. Before intubation it was confirmed that he is a full code with his being brought down from her inpatient bed to review treatment options prior to this aggressive, recurrent treatment in a patient with multisystem disease and failure. He was transferred to ICU for continued vent management with pulmonology to be consulted during the day. He is a full code. Review of Systems Narrative: Review of systems not obtainable with patient intubated. [facility] All Active Problems (Updated 09/07/25 @ 06:23 by [place] Jim) Acute kidney injury (Acute) Pancytopenia (Chronic) Obtundation (Acute) Hyperammonemic encephalopathy (Acute) Pneumonia (Acute) Pleural effusion (Acute) Perforated gastric ulcer (Acute) DVT prophylaxis (Acute) Acute UTI (Acute) Encounter for ostomy care education (Acute) Stomach ache (Acute) Delayed gastric transit (Acute) Small bowel obstruction (Acute) Anemia (Chronic) History of creation of ostomy (Acute) Contusion (Acute) Liver mass (Acute) Vomiting (Acute) Elevated lactic acid level (Acute) Acute UTI (Acute) Symptomatic bradycardia (Acute) Acute hypokalemia (Acute) Family conflict (Acute) Chest pain in adult (Acute) Fall (Acute) Chronic low back pain (Chronic) Hematuria (Acute) Leukopenia (Acute) Oral candidiasis (Acute) Sepsis syndrome (Acute) Gram-negative bacteremia (Acute) Cellulitis (Acute) Anemia of chronic disease (Acute) Ventricular ectopy (Acute) Sinus bradycardia (Acute) Leukocytosis (Acute) Hypertension (Chronic) Elevated lactic acid level (Acute) No-show for appointment (Acute) Left rotator cuff tear (Acute) Acute UTI (urinary tract infection) (Acute) Weakness (Acute) Non-ST elevation ME (NSTEMI) (Acute) Pre-syncope (Acute) Frequent falls (Acute) Orthostatic hypotension (Acute) Hypokalemia (Acute) Bradycardia (Acute) Multiple falls (Acute) Acute metabolic encephalopathy (Acute) Medication monitoring encounter (Acute) Chest pain (Acute) Medical History Hypothyroidism (acquired) Depression Lower urinary obstructive symptom CHF (congestive heart failure) EF 25%- 2023 GIB (gastrointestinal bleeding) Chronic GERD BPH (benign prostatic hyperplasia) Major depression, recurrent, chronic Severe obesity (BMI >= 40) Diabetes mellitus treated with oral medication Anemia associated with acute blood loss Acute on chronic HFrEF (heart failure with reduced ejection fraction) Anemia Splenomegaly Thrombocytopenia Colostomy care Thrombocytopenia Chronic atrial fibrillation Type 2 diabetes mellitus CHF exacerbation ANETTE (obstructive sleep apnea) Chronic heart failure with reduced ejection fraction (HFrEF, <= 40%) Anemia Cirrhosis of liver without ascites Diabetes Goals of care, counseling/discussion Lactic acidosis UTI (urinary tract infection) Urinary tract infection Advanced care planning/counseling discussion Palliative care encounter Followed by [facility] Bowel obstruction Sepsis Heart failure with reduced ejection fraction Hypothyroidism Small bowel obstruction Lactic acid acidosis Creatinine elevation Acute UTI Anticoagulated COVID Recurrent intestinal obstruction History of colon cancer Chronic anticoagulation Portal hypertension Cirrhosis TIPs placed (?when, [facility]? 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, [facility] as per pt Non-insulin dependent type 2 diabetes mellitus Incontinence Hypertension Scleral icterus Surgical History S/P TIPS (transjugular intrahepatic portosystemic shunt) H/O left hemicolectomy Colostomy in place Social History Smoking/Tobacco Use Status: Former Tobacco Use Smoking risk assessment performed?: Yes Alcohol Intake: former Drug use: Never Substance use type: does not use Housing: [place] [facility] Do you feel safe at home: Yes Do you feel safe in your relationship?: Yes Additional Social history: from [facility] Meds Allergies and Home Medications Allergies Allergy/AdvReac Type Severity Reaction Status Date / Time Penicillins Allergy Mild Itching Verified 09/07/25 04:11 mussels Allergy Anaphylaxis Verified 09/07/25 04:11 morphine AdvReac Severe vomiting Verified 09/07/25 04:11 Home Medications Medication Instructions Recorded Confirmed Type apixaban 5 mg tablet (Eliquis) 5 mg PO BID 11/08/22 09/07/25 History pantoprazole 40 mg tablet,delayed 40 mg PO DAILY 11/08/22 09/07/25 History release nitroglycerin 0.4 mg sublingual 0.4 mg sublingual Q5 MIN PRN X3 02/10/23 09/07/25 Rx tablet PRN #30 tabs Held on 09/07/25. Instructions: Pt Stopped/Never Started empagliflozin 25 mg tablet 25 mg PO DAILY 04/09/23 09/07/25 History Held on 09/07/25. Instructions: Pt Stopped/Never Started levothyroxine 200 mcg tablet 100 mcg (1/2 x 200 mcg) PO QAM #0 04/10/23 09/07/25 Rx Held on 09/07/25. tabs Instructions: Pt Stopped/Never Started rifaximin 550 mg tablet 550 mg PO BID 07/07/23 09/07/25 History venlafaxine 150 mg 300 mg PO DAILY 03/05/24 09/07/25 History capsule,extended release 24 hr Held on 09/07/25. Instructions: Pt Stopped/Never Started acetaminophen 325 mg capsule 650 mg PO Q6H PRN 05/12/24 09/07/25 History (Tylenol) Held on 09/07/25. Instructions: Pt Stopped/Never Started prazosin 5 mg capsule 10 mg PO QPM 08/04/24 09/07/25 History tamsulosin 0.4 mg capsule 0.4 mg PO DAILY 08/04/24 09/07/25 History metformin 500 mg tablet,extended 1,000 mg PO BID 01/17/25 09/07/25 History release 24hr (osmotic) bisacodyl 10 mg rectal suppository 10 mg AK DAILY PRN 02/26/25 09/07/25 History (Dulcolax (bisacodyl)) Held on 09/07/25. Instructions: Pt Stopped/Never Started lactulose 20 gram/30 mL oral 20 ml PO TID 02/26/25 09/07/25 History solution ondansetron 4 mg disintegrating 4 mg PO Q6H PRN 02/26/25 09/07/25 History tablet Held on 09/07/25. Instructions: Pt Stopped/Never Started potassium chloride 20 mEq 20 meq PO DAILY 02/26/25 09/07/25 History tablet,extended release Held on 09/07/25. Instructions: Pt Stopped/Never Started spironolactone 25 mg tablet 25 mg PO DAILY 02/26/25 09/07/25 History (Aldactone) diclofenac sodium 1 % topical gel 2 g topical TID 04/02/25 09/07/25 History (Arthritis Pain (diclofenac)) Held on 09/07/25. Instructions: Pt Stopped/Never Started losartan 50 mg tablet (Cozaar) 50 mg PO BID 04/19/25 09/07/25 History Held on 09/07/25. Instructions: Pt Stopped/Never Started melatonin 3 mg tablet 6 mg PO HS 05/15/25 09/07/25 History ferrous sulfate 325 mg (65 mg 325 mg PO DAILY #0 tabs 05/16/25 09/07/25 Rx iron) tablet Held on 09/07/25. Instructions: Pt Stopped/Never Started zinc oxide 10 % topical cream 1 applic topical BID 06/04/25 09/07/25 History Held on 09/07/25. Instructions: Pt Stopped/Never Started lidocaine 4 % topical patch 1 patch topical DAILY 07/29/25 09/07/25 History (Aspercreme (lidocaine)) Held on 09/07/25. Instructions: Pt Stopped/Never Started furosemide 40 mg tablet (Lasix) See Rx Instructions .Route 08/04/25 09/07/25 Rx .COMPLEX #1 tab tramadol 50 mg tablet 50 mg PO Q4H PRN 08/04/25 09/07/25 History Held on 09/07/25. Instructions: Pt Stopped/Never Started venlafaxine 150 mg 300 mg PO DAILY 08/04/25 09/07/25 History capsule,extended release 24 hr Held on 08/10/25. Instructions: Duplicate levothyroxine 100 mcg capsule 100 mcg PO DAILY 08/10/25 09/07/25 History sodium phosphates 19 gram-7 118 ml AK ONCE 08/10/25 09/07/25 History gram/118 mL enema (Enema) Held on 09/07/25. Instructions: Pt Stopped/Never Started sorbitol 70 % solution 30 ml PO TID PRN 08/10/25 09/07/25 History Held on 09/07/25. Instructions: Pt Stopped/Never Started amiodarone 200 mg tablet 200 mg PO DAILY 09/07/25 09/07/25 History insulin glargine 100 unit/mL (3 15 unit subcut HS 09/07/25 09/07/25 History mL) subcutaneous pen (Lantus Solostar U-100 Insulin) senna-docusate sodium tablet 2 tab PO BID 09/07/25 09/07/25 History Exam Narrative Exam Narrative: General: Patient appears older than stated age, morbidly obese especially of his abdomen, he is intubated, sedated and not responding. He appears comfortable. HEENT: Normocephalic, eyes with pupils equal and reactive light specially, extraocular movement intact and sclera anicteric. Oropharynx with moist mucosa, endotracheal tube in place. Neck: Supple without JVD. Back: Patient not examined being sedated and intubated. Lungs: Coarse crackles which are sparse and diffuse, fair aeration with bronchovesicular breath sounds diffusely. No focalizing rales or rhonchi. No expiratory wheeze. Patient has been mechanically ventilated. Heart: Irregularly irregular rhythm with normal rate. 3/6 systolic murmur left lower border. Abdomen: Obese contour but soft without guarding or rebound. No palpable hepatosplenomegaly. Colostomy bag over left lower abdomen. Bowel sounds positive in all quadrants. There is a slightly protuberant umbilical hernia. Genitalia/rectal: Exam deferred. Patient has Ohara catheter in place. Extremity: 3+ chronic edema both lower extremities with legs wrapped two thirds the way up to the knee in compression. No clubbing or cyanosis noted. Fair capillary refill. Skin: Chronic skin changes lower extremities. Color is pale, warm and dry Neuro: Patient is sedated and intubated. Cranial nerves II through XII appear to be gross intact by indirect measurement. No focal motor deficits when awake. No tremor noted. Psych: Patient encephalopathic and nonsedated with intubation. Baseline depressed mood and unrealistic expectations of resuscitation of his medical problems. Results Imaging Imaging Studies: Exam: CT Chest With Contrast; Diagnostic Exam date and time: 09/07/2025 4:52 AM Age: 80 years old Clinical indication: Injury or trauma; Blunt; Generalized; Other: Altered. Fall; Injury date: 09/07/25; Injury details: Altered, intubated, ? fall; Prior surgery; Surgery date: 6+ months; Surgery type: Hemicolectomy, tips COMPARISON: CT CHEST/ABD/PEL WO 08/10/2025 2:50 AM FINDINGS: Tubes, catheters and devices: Patient is intubated. Feeding tube present Lungs: Bibasilar lung consolidations Pleural spaces: Bilateral pleural effusions, slightly improved from prior Heart: Unremarkable. No cardiomegaly. No pericardial effusion. Lymph nodes: Unremarkable. No enlarged lymph nodes. Vasculature: Unremarkable. No aortic aneurysm. Bones/joints: Unremarkable. No acute fracture. Soft tissues: Unremarkable. IMPRESSION: No evidence of acute process PROCEDURE INFORMATION: Exam: CT Abdomen And Pelvis With Contrast Exam date and time: 09/07/2025 4:52 AM Age: 80 years old Clinical indication: Injury or trauma; Blunt; Generalized; Other: Altered. Fall; Injury date: 09/07/25; Injury details: Altered, intubated, ? fall; Prior surgery; Surgery date: 6+ months; Surgery type: Hemicolectomy, tips COMPARISON: CT CHEST/ABD/PEL WO 08/10/2025 2:50 AM FINDINGS: Lungs: See above Liver: Cirrhotic liver. Tips present Gallbladder and biliary ducts: Unremarkable. No calcified stones. No ductal dilation. Pancreas: Unremarkable. No ductal dilation. Spleen: Splenomegaly Adrenal glands: Normal. No mass. Kidneys and ureters: Unremarkable. No hydronephrosis. Stomach and bowel: Left hemicolectomy with left lower quadrant ostomy. Thickening of the colon wall, colitis versus colopathy . Resolved perigastric air and fluid collection Appendix: No evidence of appendicitis. Intraperitoneal space: Moderate ascites, worsened from prior Vasculature: Sequela of portal venous hypertension Lymph nodes: Unremarkable. No enlarged lymph nodes. Urinary bladder: Unremarkable as visualized. Reproductive: Unremarkable as visualized. Bones/joints: Unremarkable. No acute fracture. Soft tissues: Anasarca IMPRESSION: No evidence of acute process Exam: CT Head Without Contrast Exam date and time: 09/07/2025 4:27 AM Age: 80 years old Clinical indication: Altered mental status/memory loss; Confusion or disorientation; Altered/fall COMPARISON: CT HEAD CERVICAL SPINE WO 04/19/2025 9:33 AM no report FINDINGS: Brain: Area low-attenuation in the posterior parietal lobe is unchanged from prior exam. Recommend further evaluation clinically. No evidence of acute intraparenchymal hemorrhage. Cerebral ventricles: Moderate dilatation of the ventricular system and sulci diffusely, compatible with volume loss. Paranasal sinuses: Air-fluid level within maxillary sinuses and left posterior ethmoid air cell, slightly worsened in the interval, possible acute sinusitis. Left maxillary sinus polyps or mucous retention cysts, unchanged . Bilateral antrectomies Mastoid air cells: Visualized mastoid air cells are well aerated. Bones: Unremarkable. No acute fracture. Soft tissues: Unremarkable. IMPRESSION: 1. Slight interval worsening of sinusitis 2. No acute intracranial hemorrhage Exam: XR Chest Exam date and time: 09/07/2025 4:15 AM Age: 80 years old Clinical indication: Device placement; S/P intubation and og placement TECHNIQUE: Imaging protocol: Radiologic exam of the chest. Views: 1 view. COMPARISON: CT CHEST/ABD/PEL WO 08/10/2025 2:50 AM FINDINGS: Tubes, catheters and devices: Endotracheal tube tip at the level of the sternal inlet. Feeding tube tip not included on the exam but well below the level of the left hemidiaphragm Lungs: Venous congestion Pleural spaces: Bilateral pleural effusions left greater than right Heart/Mediastinum: Stable cardiomegaly. Bones/joints: Unremarkable. Organs: Status post tips IMPRESSION: Satisfactory endotracheal tube and feeding tube placements Labs 09/07/25 03:50 09/07/25 03:50 Labs: Laboratory Results - last 24 hr 09/07/25 09/07/25 09/07/25 03:50 05:12 05:41 WBC 2.91 L RBC 2.55 L Hgb 7.2 L Hct 22.9 L MCV 90 MCH 28.2 MCHC 31.4 L RDW 20.0 H Plt Count 82 L MPV 10.3 Immature Gran % 0.0 Neutrophils % 78.4 Lymphocytes % 11.7 Monocytes % 7.2 Eosinophils % 2.4 Basophils % 0.3 Nucleated RBC % 0.0 Absolute Neutrophils 2.28 Absolute Lymphocytes 0.34 L Absolute Monocytes 0.21 Absolute Eosinophils 0.07 Absolute Basophils 0.01 RBC Morphology See Below Hypochromasia 1+ PT 13.3 H INR 1.3 H APTT 27.6 VBG pH 7.48 H VBG pCO2 32 L VBG pO2 48 VBG HCO3 24 VBG Total CO2 23 L VBG O2 Saturation 84 VBG Base Excess 0 VBG Lactate 6.4 H* Sodium 146 H Potassium 3.8 Chloride 108 H Carbon Dioxide 21.6 Anion Gap 16.4 H BUN 39 H Creatinine 1.7 H Est GFR (CKD-EPI 2020) 39.65 Glucose 112 H Calcium 8.1 L Total Bilirubin 1.10 AST 32 ALT 23 Alkaline Phosphatase 132 H Ammonia 129 H Troponin I 20 21 Total Protein 5.1 L Albumin 2.6 L TSH 7.23 H Free T4 1.57 Urine Color Dark Yellow Urine Clarity Cloudy Urine pH 5.5 Ur Specific [place] 1.015 Urine Protein Negative Urine Ketones Trace H Urine Blood Moderate H Urine Nitrite Negative Urine Bilirubin Negative Urine Urobilinogen 0.2 Ur Leukocyte Esterase Small H Urine RBC 3-5 H Urine WBC >50 H Ur Epithelial Cells Few Urine Crystals Negative Urine Bacteria Moderate Urine Casts Negative Urine Mucus Moderate Ur Culture Indicated? Yes Urine Glucose Negative Last Vital Signs Pulse 80 09/07/25 03:57 Resp 12 09/07/25 05:20 BP 154/53 H 09/07/25 05:20 Pulse Ox 96 09/07/25 05:20 Time Spent Time spent with Patient: >75 minutes Time was spent: preparing to see the patient(eg.review tests), obtaining and/or reviewing separately otained hiistory, ordering medications,tests, procedures, indepentently interpreting results and care coordination
[2025-09-07 07:22] LABS: Troponin I 18 ng/L (<54)
[2025-09-07 08:06] LABS: COVID-19 PCR Negative (Negative); RSV PCR Negative (Negative)
--- NOTE | 2025-09-07 08:07 | W.PC.ACHO ---
Registration Status: REG ER Primary Language: Preferred Language: ED Information & Data Chief Complaint CVA/TIA 09/07/25 04:48 Triage Note Pt BIBA from [facility] and 09/07/25 03:57 rehab. RN at [facility] stated pt was last seen around 0230 well. Around 0315 pt was noted to be kneeling at bedside, minimally responsive. Medical / Surgical History (Last Reviewed 09/07/25 @ 06:14 by Phoenix Jim) Hypothyroidism (acquired) Depression Lower urinary obstructive symptom CHF (congestive heart failure) GIB (gastrointestinal bleeding) Chronic GERD BPH (benign prostatic hyperplasia) Major depression, recurrent, chronic Severe obesity (BMI >= 40) Diabetes mellitus treated with oral medication Anemia associated with acute blood loss Acute on chronic HFrEF (heart failure with reduced ejection fraction) Anemia Splenomegaly Thrombocytopenia Colostomy care Thrombocytopenia Chronic atrial fibrillation Type 2 diabetes mellitus CHF exacerbation ANETTE (obstructive sleep apnea) Chronic heart failure with reduced ejection fraction (HFrEF, <= 40%) Anemia Cirrhosis of liver without ascites Diabetes Goals of care, counseling/discussion Lactic acidosis UTI (urinary tract infection) Urinary tract infection Advanced care planning/counseling discussion Palliative care encounter Bowel obstruction Sepsis Heart failure with reduced ejection fraction Hypothyroidism Small bowel obstruction Lactic acid acidosis Creatinine elevation Acute UTI Anticoagulated COVID Recurrent intestinal obstruction History of colon cancer Chronic anticoagulation Portal hypertension Cirrhosis Confusion Colon cancer Depression Endocarditis Non-insulin dependent type 2 diabetes mellitus Incontinence Hypertension Scleral icterus (Last Reviewed 09/07/25 @ 06:14 by Phoenix Jim) S/P TIPS (transjugular intrahepatic portosystemic shunt) H/O left hemicolectomy Colostomy in place Most Recent Vital Signs Pulse 82 09/07/25 07:16 Pulse 94 H 09/07/25 07:16 Respiratory Rate 17 09/07/25 07:16 Respiratory Effort Mechanically Ventilated 09/07/25 04:22 Respiratory Pattern Irregular 09/07/25 04:22 Blood Pressure 107/49 L 09/07/25 07:16 Blood Pressure Mean 65 09/07/25 07:16 Blood Pressure Position Supine 09/07/25 03:57 Pulse Oximetry 98 09/07/25 07:16 Respiratory End-tidal CO2 31 09/07/25 07:16 Oxygen Delivery Method Room Air 09/07/25 03:57 Oxygen Flow Rate 0 09/07/25 03:57 Fraction of Inspired Oxygen (FIO2) 28 09/07/25 05:20 Allergies Penicillins Allergy (Mild, Verified 09/07/25 04:11) Itching mussels Allergy (Verified 09/07/25 04:11) Anaphylaxis morphine Adverse Reaction (Severe, Verified 09/07/25 04:11) vomiting Active Medications Generic Name Dose Route Start Last Admin Trade Name Freq PRN Reason Stop Dose Admin Propofol 1,000 mg in 100 mls @ 6.545 mls/hr 09/07/25 04:30 09/07/25 07:49 Diprivan IV_INF 15 mcg/kg/min INFUSION MAN 9.818 mls/hr Protocol Titration 10 MCG/KG/MIN Iohexol 100 ml 09/07/25 04:30 09/07/25 04:27 Omnipaque 350 Mg/Ml 100 Ml Btl IJ 10/07/25 23:59 100 ml DIRECTED MAN Administration Sodium Chloride 50 ml 09/07/25 04:30 09/07/25 04:27 Normal Saline - Diluent 50 Ml Vial IJ 50 ml DIRECTED MAN Administration Sodium Chloride 0 ml 09/07/25 04:25 09/07/25 04:27 Normal Saline Flush 10 Ml Syr IVP 10 ml PRN PRN Administration IV IV Catheter Type [Left Saline Lock Antecubital] IV Catheter Type [Right Saline Lock Antecubital] IV Catheter Gauge [Left 18 Antecubital] IV Catheter Gauge [Right 20 Antecubital] Diagnostics 09/07/25 09/07/25 09/07/25 Range/Units 07:15 07:00 05:41 WBC (4.4-10.8) 10^3/uL RBC (4.36-5.78) 10^6/uL Hgb (13.5-17.5) g/dL Hct (40.0-50.0) % MCV (80-95) fL MCH (27.0-33.0) pg MCHC (32.0-36.0) % RDW (11.8-14.1) % Plt Count (130-400) 10^3/uL MPV (8.0-11.0) fL Immature Gran % % Neutrophils % % Lymphocytes % % Monocytes % % Eosinophils % % Basophils % % Nucleated RBC % (0.0-0.3) % Absolute Neutrophils (1.2-6.7) 10^3/uL Absolute Lymphocytes (1.2-3.4) 10^3/uL Absolute Monocytes (0.1-0.8) 10^3/uL Absolute Eosinophils (0.0-0.7) 10^3/uL Absolute Basophils (0.0-0.2) 10^3/uL RBC Morphology Hypochromasia PT (9.1-11.1) sec INR (0.9-1.1) APTT (20.6-30.2) sec VBG pH (7.31-7.41) VBG pCO2 (41-51) mmHg VBG pO2 mmHg VBG HCO3 (23-28) mmol/L VBG Total CO2 (24-29) mmol/L VBG O2 Saturation % VBG Base Excess (-2-3) mmol/L VBG Lactate (<or=2.0) mmol/L Sodium (136-145) mmol/L Potassium (3.5-5.1) mmol/L Chloride (98-107) mmol/L Carbon Dioxide (20.0-31.0) mmol/L Anion Gap (3-11) mmol/L BUN (9-23) mg/dL Creatinine (0.73-1.18) mg/dL Est GFR (CKD-EPI 2020) (mL/min/1.73m2) Glucose (74-106) mg/dL Calcium (8.3-10.6) mg/dL Total Bilirubin (0.2-1.2) mg/dL AST (<34) U/L ALT (10-49) U/L Alkaline Phosphatase (46-116) U/L Ammonia (11-32) umol/L Troponin I 18 (<54) ng/L Total Protein (5.7-8.2) g/dL Albumin (3.4-5.0) g/dL TSH (0.55-4.78) uIU/mL Free T4 (0.89-1.76) ng/mL Urine Color Dark Yellow (Yellow) Urine Clarity Cloudy (Clear) Urine pH 5.5 (5-8) Ur Specific [place] 1.015 (1.005-1.025) Urine Protein Negative (Neg-Trace) mg/dL Urine Ketones Trace H (Negative) mg/dL Urine Blood Moderate H (Negative) Urine Nitrite Negative (Negative) Urine Bilirubin Negative (Negative) Urine Urobilinogen 0.2 (Up to 0.2) mg/dL Ur Leukocyte Esterase Small H (Negative) Urine RBC 3-5 H (0-2) HPF Urine WBC >50 H (0-5) HPF Ur Epithelial Cells Few (Negative) HPF Urine Crystals Negative (Negative) HPF Urine Bacteria Moderate (Negative) HPF Urine Casts Negative (Negative) LPF Urine Mucus Moderate (Negative) Ur Culture Indicated? Yes Urine Glucose Negative (Negative) mg/dL COVID-19 Source Pending SARS-CoV-2 (PCR) Pending Influenza Type A (PCR) Pending Influenza Type B (PCR) Pending RSV (PCR) Pending 09/07/25 09/07/25 Range/Units 05:12 03:50 WBC 2.91 L (4.4-10.8) 10^3/uL RBC 2.55 L (4.36-5.78) 10^6/uL Hgb 7.2 L (13.5-17.5) g/dL Hct 22.9 L (40.0-50.0) % MCV 90 (80-95) fL MCH 28.2 (27.0-33.0) pg MCHC 31.4 L (32.0-36.0) % RDW 20.0 H (11.8-14.1) % Plt Count 82 L (130-400) 10^3/uL MPV 10.3 (8.0-11.0) fL Immature Gran % 0.0 % Neutrophils % 78.4 % Lymphocytes % 11.7 % Monocytes % 7.2 % Eosinophils % 2.4 % Basophils % 0.3 % Nucleated RBC % 0.0 (0.0-0.3) % Absolute Neutrophils 2.28 (1.2-6.7) 10^3/uL Absolute Lymphocytes 0.34 L (1.2-3.4) 10^3/uL Absolute Monocytes 0.21 (0.1-0.8) 10^3/uL Absolute Eosinophils 0.07 (0.0-0.7) 10^3/uL Absolute Basophils 0.01 (0.0-0.2) 10^3/uL RBC Morphology See Below Hypochromasia 1+ PT 13.3 H (9.1-11.1) sec INR 1.3 H (0.9-1.1) APTT 27.6 (20.6-30.2) sec VBG pH 7.48 H (7.31-7.41) VBG pCO2 32 L (41-51) mmHg VBG pO2 48 mmHg VBG HCO3 24 (23-28) mmol/L VBG Total CO2 23 L (24-29) mmol/L VBG O2 Saturation 84 % VBG Base Excess 0 (-2-3) mmol/L VBG Lactate 6.4 H* (<or=2.0) mmol/L Sodium 146 H (136-145) mmol/L Potassium 3.8 (3.5-5.1) mmol/L Chloride 108 H (98-107) mmol/L Carbon Dioxide 21.6 (20.0-31.0) mmol/L Anion Gap 16.4 H (3-11) mmol/L BUN 39 H (9-23) mg/dL Creatinine 1.7 H (0.73-1.18) mg/dL Est GFR (CKD-EPI 2020) 39.65 (mL/min/1.73m2) Glucose 112 H (74-106) mg/dL Calcium 8.1 L (8.3-10.6) mg/dL Total Bilirubin 1.10 (0.2-1.2) mg/dL AST 32 (<34) U/L ALT 23 (10-49) U/L Alkaline Phosphatase 132 H (46-116) U/L Ammonia 129 H (11-32) umol/L Troponin I 21 20 (<54) ng/L Total Protein 5.1 L (5.7-8.2) g/dL Albumin 2.6 L (3.4-5.0) g/dL TSH 7.23 H (0.55-4.78) uIU/mL Free T4 1.57 (0.89-1.76) ng/mL Urine Color (Yellow) Urine Clarity (Clear) Urine pH (5-8) Ur Specific [place] (1.005-1.025) Urine Protein (Neg-Trace) mg/dL Urine Ketones (Negative) mg/dL Urine Blood (Negative) Urine Nitrite (Negative) Urine Bilirubin (Negative) Urine Urobilinogen (Up to 0.2) mg/dL Ur Leukocyte Esterase (Negative) Urine RBC (0-2) HPF Urine WBC (0-5) HPF Ur Epithelial Cells (Negative) HPF Urine Crystals (Negative) HPF Urine Bacteria (Negative) HPF Urine Casts (Negative) LPF Urine Mucus (Negative) Ur Culture Indicated? Urine Glucose (Negative) mg/dL COVID-19 Source SARS-CoV-2 (PCR) Influenza Type A (PCR) Influenza Type B (PCR) RSV (PCR) 09/07/25 05:41 Urine Culture - Pending Urine - Reflex from Ua 09/07/25 04:30 Blood Culture - Pending Blood 09/07/25 03:50 Blood Culture - Pending Blood [id number] Documentation Fingerstick Glucose Start: 09/07/25 03:40 Freq: Status: Active Protocol: Activity Type Activity Date Activity User E-sign Co-sign Detail Recorded Client Recorded Date Recorded By Document 09/07/25 03:39 BKG DAEMON(3) [id number] 09/07/25 03:40 BKG DAEMON(4) Intake and Output - 24 Hour Total 09/07/25 03:13 thru 09/07/25 07:49 Intake Total 29.867 Output Total 0 Balance 29.867 Weight 109.089 kg Intake: IV 29.867 Output: Gastric Drainage 0 Right Nare 0 Other: Stool Characteristics Soft Falls Risk Assessment History of Falls Previous History 09/07/25 04:22 Ambulatory Aids Uses ambulatory device + 09/07/25 04:22 Tubes/Lines With any additional score 09/07/25 04:22 Gait Evaluation W/any additional score 09/07/25 04:22 Cognition Cognitive impairment 09/07/25 04:22 Fall Total Score 100 09/07/25 04:22 Level of Risk Maximum Risk 09/07/25 04:22 Problems (Last Reviewed 09/07/25 @ 06:14 by Phoenix Jim) Acute kidney injury (Acute) Pancytopenia (Chronic) Obtundation (Acute) Hyperammonemic encephalopathy (Acute) Acute UTI (Acute) Elevated lactic acid level (Acute) Hypertension (Chronic) Notes 09/07/25 05:59 Nursing Notes by Dotty Berg Nursing Note: Clary updated on plan of care and pending admission to ICU here at [facility]. She gives consent for this and expresses appreciation for the care delivered to both herself as well as , especially having her present in ED just before pt's intubation. Initialized on 09/07/25 05:59 - END OF NOTE Attestation Statement: By documenting the first initial, last name, and credentials of the reporting nurse below, both parties acknowledge that all relevant information regarding the patient handoff has been communicated, and that all questions have been addressed to ensure continuity and safety of care. Additional Patient Information/Comments: Report Received From: Valentín Rdz RN All questions answered
[2025-09-07] MEDS: fentaNYL 100 MCG/2 ML VIAL (08:17)
[2025-09-07] MEDS: fentaNYL 1,000 MCG in Normal Saline 80 ML 10.8 MCG IV_INF (08:20)
--- NOTE | 2025-09-07 08:41 | PUCC_ITS ---
General Date of Service Date of service: 09/07/25 Time of Service: 08:00 Reason for Admission to ICU: Respiratory failure, encephalopathy Recommendations Pulmonary: Assessment: 1. Acute respiratory failure - due to hepatic encephalopathy 2. Shock - septic vs sedation related 3. Hepatic encephalopathy - on rifaxamin and lactulose at home 4. Cirrhosis - 2/2 alcohol abuse. S/P TIPS 5. Pleural effusions - likely related to cirrhosis 6. Afib - was on eliquis 7. Hx perforated gastric ulcuer - 07/2025 8. Anemia - Hb 7.2 (9.2 in 07/2025) 9. Systolic HF - EF 35% 10. UTI Recommendations: - continue propofol and fentanyl gtt for sedation. ET tube at risk off sedation - titrate levophed for MAP > 65 - continue rifaxamin and lactulose for hepatic encephalopathy - repeat ABG, will adjust ventilator settings accordingly - his overall prognosis is guarded - agree with rocephin for UTI Discussed with Dr. Waters I&O: Intake & Output 09/04/25 09/05/25 09/06/25 09/07/25 23:59 23:59 23:59 23:59 Intake Total 29.867 / 29.867 Output Total 0 / 0 Balance 29.867 / 29.867 Weight 109.089 kg Code Status: Resuscitation Status Full Code Subjective Critical and life-threatening events over the past 24 hours: Patient is a 80 yo with a history of cirrhosis, Afib, systolic HF (EF 24%), recent GI bleeding, who was admitted on 09/07/25 for encephalopathy. He is currently intubated and sedated. He had recent hospitalization at [facility] for hepatic encephalopathy, a perforated gastric ulcer, and respiratory failure. Was intubated during that admission. He was discharged to rehab, where he developed worsening encephalopathy, so was brought to the ED. CT head was unremarkable, other than sinusitis. CT chest showed bilateral pleural effusions and posterior atelectasis. ABG showed a low CO2 level at 32. He was intubated in the ED for airway protection / encephalopathy. Currently sedated with propofol and fentanyl gtt. On FiO2 28%. On 7 mcg/min levophed for shock. ROS: unable to obtain due to clinical status Exam Narrative Exam Narrative: General: intubated, sedated Head: normocephalic, ET tube in place ENT: no stridor, trachea midline CV: normal rate, irregular rhythm Respiratory: no wheezing, no crackles, no rhonchi, no prolonged expiration GI: abd soft, non-distended Skin: no rashes Extremities: no digital clubbing Neuro: sedated Most Recent VS/Results Last Vital Signs Pulse 82 09/07/25 07:16 Resp 13 09/07/25 08:12 BP 105/40 L 09/07/25 08:12 Pulse Ox 98 09/07/25 08:12 Laboratory Results - last 24 hr 09/07/25 09/07/25 09/07/25 03:50 05:12 05:41 WBC 2.91 L RBC 2.55 L Hgb 7.2 L Hct 22.9 L MCV 90 MCH 28.2 MCHC 31.4 L RDW 20.0 H Plt Count 82 L MPV 10.3 Immature Gran % 0.0 Neutrophils % 78.4 Lymphocytes % 11.7 Monocytes % 7.2 Eosinophils % 2.4 Basophils % 0.3 Nucleated RBC % 0.0 Absolute Neutrophils 2.28 Absolute Lymphocytes 0.34 L Absolute Monocytes 0.21 Absolute Eosinophils 0.07 Absolute Basophils 0.01 RBC Morphology See Below Hypochromasia 1+ PT 13.3 H INR 1.3 H APTT 27.6 VBG pH 7.48 H VBG pCO2 32 L VBG pO2 48 VBG HCO3 24 VBG Total CO2 23 L VBG O2 Saturation 84 VBG Base Excess 0 VBG Lactate 6.4 H* Sodium 146 H Potassium 3.8 Chloride 108 H Carbon Dioxide 21.6 Anion Gap 16.4 H BUN 39 H Creatinine 1.7 H Est GFR (CKD-EPI 2020) 39.65 Glucose 112 H Calcium 8.1 L Total Bilirubin 1.10 AST 32 ALT 23 Alkaline Phosphatase 132 H Ammonia 129 H Troponin I 20 21 Total Protein 5.1 L Albumin 2.6 L TSH 7.23 H Free T4 1.57 Urine Color Dark Yellow Urine Clarity Cloudy Urine pH 5.5 Ur Specific [place] 1.015 Urine Protein Negative Urine Ketones Trace H Urine Blood Moderate H Urine Nitrite Negative Urine Bilirubin Negative Urine Urobilinogen 0.2 Ur Leukocyte Esterase Small H Urine RBC 3-5 H Urine WBC >50 H Ur Epithelial Cells Few Urine Crystals Negative Urine Bacteria Moderate Urine Casts Negative Urine Mucus Moderate Ur Culture Indicated? Yes Urine Glucose Negative COVID-19 Source SARS-CoV-2 (PCR) Influenza Type A (PCR) Influenza Type B (PCR) RSV (PCR) 09/07/25 09/07/25 07:00 07:15 WBC RBC Hgb Hct MCV MCH MCHC RDW Plt Count MPV Immature Gran % Neutrophils % Lymphocytes % Monocytes % Eosinophils % Basophils % Nucleated RBC % Absolute Neutrophils Absolute Lymphocytes Absolute Monocytes Absolute Eosinophils Absolute Basophils RBC Morphology Hypochromasia PT INR APTT VBG pH VBG pCO2 VBG pO2 VBG HCO3 VBG Total CO2 VBG O2 Saturation VBG Base Excess VBG Lactate Sodium Potassium Chloride Carbon Dioxide Anion Gap BUN Creatinine Est GFR (CKD-EPI 2020) Glucose Calcium Total Bilirubin AST ALT Alkaline Phosphatase Ammonia Troponin I 18 Total Protein Albumin TSH Free T4 Urine Color Urine Clarity Urine pH Ur Specific [place] Urine Protein Urine Ketones Urine Blood Urine Nitrite Urine Bilirubin Urine Urobilinogen Ur Leukocyte Esterase Urine RBC Urine WBC Ur Epithelial Cells Urine Crystals Urine Bacteria Urine Casts Urine Mucus Ur Culture Indicated? Urine Glucose COVID-19 Source Nasopharynx SARS-CoV-2 (PCR) Negative Influenza Type A (PCR) Negative Influenza Type B (PCR) Negative RSV (PCR) Negative Time spent with patient Time spent in Critical Care: 45 Time spent in Critical care included: Performing procedures not included in c.c time, Coordination of care, Chart review, Documenting critically ill care, Time at immediate bedside, Discussing critically ill care with other medical staff and Discussing care with family members
--- NOTE | 2025-09-07 09:24 | PDOC.CMIN ---
Date of service: 09/07/25 Time of Service: 09:24 Care Management Initial Assmt Initial Assessment Reason for Hospitalization: hepatic encephalopathy Functional Status/Living Situation Patient Presentation: Merrill was admitted last night after a marked change in his mental status. He was unable to protect his airway so he was intubated in the ED. He remains intubated and sedated in the ICU today. He is on a Norepineohrine drip at 7 mcg/hr. His SBP has been 100-110 and DBP has been in the 40s and 50s. Merrill's Cely , who also happens to be an inpatient at [facility], has been by his side most of the day. Merrill's code status is full code. In the past he has indicated to that he cannot change the status as his won't let him. Given Merrill's failing health and serious co-morbidities, the provider plans to have another conversation with Cely as Merrill cannot speak for himself at this time. Town of Residence: [facility] Resides with: Other (SNF) Significant Other/Family: Local Natural Supports: Cely and son Scott Employment Status: Retired Instrumental Activities of Daily Living (ADLs): Requires support Medications Medication Management: No Issues/Barriers identified Physical Functioning/Mobility Assistive Device: wheelchair and walker Advance Directives Advance Directives: Do you have an Advance Directive: Y 08/05/24, 02:24 AD On File at [facility]: N 08/05/24, 10:22 Date Asked 09/07/25 09/07/25, 04:32 AD Date Reviewed COLST On File at [facility] No 12/04/23, 16:58 COLST Date Scanned Code Status Resuscitation Status Full Code Portal Pt does not currently have a portal and education provided: Yes Insurance Coverage/Financial Issues Insurance: [place] Care Team Visit Care Team Role Provider Type Silver Waters MD MD [facility] STAFF PHYSICIAN Maryann Whitt Primary Care Provider NURSE PRACTITIONER Js Johns DO Emergency Provider [facility] STAFF PHYSICIAN Phoenix Jim Admit Provider NON-[facility] STAFF PHYSICIAN Attending Provider Discharge Potential Discharge Needs: Other (return to SNF) Anticipated Barriers to Discharge: None Identified Patient/Family Education Needs: Review discharge instructions, discuss Ask Me Three Transportation: RCT RCT Transportation: Wheel chair van Plan: Merrill remains critically ill and is intubated in the ICU. He is on a Norepinephrine drip with BPs in the 110/40-50 range. Merrill will likely return to [facility] when medically stable. He will follow up with the facility providers and plan of care and transport via RCT w/c van. CM will follow and continue to assess for discharge needs. Social Determinants of Health Screening Social Determinants of health last assessed in clinic: 09/08/25 Will the Patient Participate in the Screening?: Yes Do you worry about having a steady place to live?: no Problems where you live: no known problems In the past 12 months, have you had to go without electric, gas, oil or water in your home?: no 1. Within the past 12 months, we worried whether our food would run out before we got money to buy more.: Never true 2. Within the past 12 months, the food we bought just didn't last and we didn't have money to get more.: Never true Has lack of transportation kept you from medical appointments or from doing things needed for daily living?: no Has anyone in your life made you feel unsafe or unsupported?: no How hard is it for you to pay for the very basics like food, housing, medical care, and heating? Would you say it is:: Not hard at all Do you want help finding or keeping work or a job?: I do not need or want help If for any reason you need help with day-to-day activities such as bathing, preparing meals, shopping, managing finances, etc., do you get the help you need?: I could use a little more help How often do you feel lonely or isolated from those around you?: Sometimes Do you speak a language other than Arabic at home?: No Does the patient want assistance with any of the above?: No Comments: lives in a SNF Health Related Social Needs Health related social needs: problems with daily activities (Z73.9) and feeling lonely/isolated (Z60.8) PFSH All Active Problems (Updated 09/07/25 @ 06:23 by Phoenix Jim) Acute kidney injury (Acute) Pancytopenia (Chronic) Obtundation (Acute) Hyperammonemic encephalopathy (Acute) Pneumonia (Acute) Pleural effusion (Acute) Perforated gastric ulcer (Acute) DVT prophylaxis (Acute) Acute UTI (Acute) Encounter for ostomy care education (Acute) Stomach ache (Acute) Delayed gastric transit (Acute) Small bowel obstruction (Acute) Anemia (Chronic) History of creation of ostomy (Acute) Contusion (Acute) Liver mass (Acute) Vomiting (Acute) Elevated lactic acid level (Acute) Acute UTI (Acute) Symptomatic bradycardia (Acute) Acute hypokalemia (Acute) Family conflict (Acute) Chest pain in adult (Acute) Fall (Acute) Chronic low back pain (Chronic) Hematuria (Acute) Leukopenia (Acute) Oral candidiasis (Acute) Sepsis syndrome (Acute) Gram-negative bacteremia (Acute) Cellulitis (Acute) Anemia of chronic disease (Acute) Ventricular ectopy (Acute) Sinus bradycardia (Acute) Leukocytosis (Acute) Hypertension (Chronic) Elevated lactic acid level (Acute) No-show for appointment (Acute) Left rotator cuff tear (Acute) Acute UTI (urinary tract infection) (Acute) Weakness (Acute) Non-ST elevation WI (NSTEMI) (Acute) Pre-syncope (Acute) Frequent falls (Acute) Orthostatic hypotension (Acute) Hypokalemia (Acute) Bradycardia (Acute) Multiple falls (Acute) Acute metabolic encephalopathy (Acute) Medication monitoring encounter (Acute) Chest pain (Acute) Medical History Hypothyroidism (acquired) Depression Lower urinary obstructive symptom CHF (congestive heart failure) EF 25%- 2023 GIB (gastrointestinal bleeding) Chronic GERD BPH (benign prostatic hyperplasia) Major depression, recurrent, chronic Severe obesity (BMI >= 40) Diabetes mellitus treated with oral medication Anemia associated with acute blood loss Acute on chronic HFrEF (heart failure with reduced ejection fraction) Anemia Splenomegaly Thrombocytopenia Colostomy care Thrombocytopenia Chronic atrial fibrillation Type 2 diabetes mellitus CHF exacerbation ANETTE (obstructive sleep apnea) Chronic heart failure with reduced ejection fraction (HFrEF, <= 40%) Anemia Cirrhosis of liver without ascites Diabetes Goals of care, counseling/discussion Lactic acidosis UTI (urinary tract infection) Urinary tract infection Advanced care planning/counseling discussion Palliative care encounter Followed by [facility] Bowel obstruction Sepsis Heart failure with reduced ejection fraction Hypothyroidism Small bowel obstruction Lactic acid acidosis Creatinine elevation Acute UTI Anticoagulated COVID Recurrent intestinal obstruction History of colon cancer Chronic anticoagulation Portal hypertension Cirrhosis TIPs placed (?when, [facility]? 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, Dx [facility] as per pt Non-insulin dependent type 2 diabetes mellitus Incontinence Hypertension Scleral icterus Surgical History S/P TIPS (transjugular intrahepatic portosystemic shunt) H/O left hemicolectomy Colostomy in place Social History Smoking/Tobacco Use Status: Former Tobacco Use Smoking risk assessment performed?: Yes Alcohol Intake: former Drug use: Never Substance use type: does not use Housing: group home Do you feel safe at home: Yes Do you feel safe in your relationship?: Yes Additional [facility] history[facility]
[2025-09-07] MEDS: Norepinephrine in D5W 8 MG/250 ML BAG 9.375 MG IV (09:40)
[2025-09-07] MEDS: PROPOFOL 1,000 MG/100 ML BTL 9.818 MG IV_INF (10:40)
[2025-09-07 11:09] LABS: BE (Venous) 2 mmol/L (-2-3); HCO3 (Venous) 25 mmol/L (23-28); TCO2 (Venous) 24 mmol/L (24-29); pCO2 (Venous) 33 mmHg (41-51); pO2 (Venous) 201 mmHg
--- NOTE | 2025-09-07 11:39 | PHA.REVIEW2 ---
Pharmacy Admission Review Admission Clinical Review Admission Pharmacy Review: Acute kidney injury (Acute) Obtundation (Acute) Hyperammonemic encephalopathy (Acute) Acute UTI (Acute) Elevated lactic acid level (Acute) Penicillins Allergy (Mild, Verified 09/07/25 04:11) Itching mussels Allergy (Verified 09/07/25 04:11) Anaphylaxis morphine Adverse Reaction (Severe, Verified 09/07/25 04:11) vomiting Resuscitation Status Full Code Height 5 ft 5 in Weight 105.7 kg Pharmacy Admission Review Renal Dosing Renal Dosing: BUN 39 mg/dL (9-23) H 09/07/25 03:50 Creatinine 1.7 mg/dL (0.73-1.18) H 09/07/25 03:50 Medications needing adjustments: Reviewed (CrCl 40.1 mL/min) List of meds needing interventions: Current medications are okay Anticoagulation Anticoagulation: Hgb 7.2 g/dL (13.5-17.5) L 09/07/25 03:50 Hct 22.9 % (40.0-50.0) L 09/07/25 03:50 Plt Count 82 10^3/uL (130-400) L 09/07/25 03:50 INR 1.3 (0.9-1.1) H 09/07/25 03:50 Creatinine 1.7 mg/dL (0.73-1.18) H 09/07/25 03:50 DVT Prophylaxis: Reviewed Medications: Enoxaparin (40mg daily) Opiate Usage Evaluate Pain Scale/Pains Meds: Reviewed (fentanyl infusion @ 10.8mls/hr) Scheduled Bowel Reg ordered if on Opiates?: Yes (senna/docusate BID) Relevant Labs Relevant Labs: Sodium 146 mmol/L (136-145) H 09/07/25 03:50 Potassium 3.8 mmol/L (3.5-5.1) 09/07/25 03:50 Chloride 108 mmol/L (98-107) H 09/07/25 03:50 Electrolytes, C-Reactive P, ESR: Reviewed DM Control DM Control: Glucose 112 mg/dL (74-106) H 09/07/25 03:50 Finger Stick Blood Glucose 169 1036 Finger Stick Blood Glucose 169 1036 DM Control: Reviewed Insulin Dosing, Diabetic Medication: Has order for SS insulin Cardiac Review Cardiac Review: Troponin I 18 ng/L (<54) 09/07/25 07:00 Blood Pressure 105/40 0812 Blood Pressure 107/49 0716 Blood Pressure 97/32 0702 Blood Pressure 115/44 0646 Blood Pressure 122/47 0631 Blood Pressure 131/47 0616 Blood Pressure 127/51 0601 Blood Pressure 139/56 0546 Blood Pressure 113/48 0531 Blood Pressure 154/53 0520 Blood Pressure 154/53 0516 Blood Pressure 141/53 0510 BP, HR, EF%: Reviewed (HR WNL) List meds needing interventions: Has order for amiodarone 200mg daily and spironolactone 25mg daily. Currently on propofol infusion at 15mcg/kg/min. QTc Review QTc: Reviewed (505 from 09/07/25) IV to PO Switch IV Medications: Reviewed (NG tube) Home Meds Home Med List reviewed: Intervened Relevent Home Meds Not ordered & why?: Eliquis (has order for Lovenox), furosemide (on hold), glargine (on hold per H+P) and metformin (on hold per H+P) Order put in for venlafaxine off of home med list. Listed as not taking on home med list. Reached out to provider who asked that the order be canceled. Removed from home med list as well. Current Meds Current Medication Order Review: Intervened Comments: Changed IV ED access order Pharmacy Antibiotic Review Relevant Labs: WBC 2.91 10^3/uL (4.4-10.8) L 09/07/25 03:50 Temperature 35.6 C Pharmacy Antibiotic Activity: C/S review and Reviewed, no change Comments: Patient is on ceftriaxone, day 1, for UTI. Blood and urine cultures pending.
[2025-09-07] MEDS: cefTRIAXone 1 GM/50 ML BAG IVPB (11:54)
[2025-09-07] MEDS: Pantoprazole 40 MG VIAL IVP (11:54)
[2025-09-07] MEDS: Amiodarone 200 MG TAB NG (11:55)
--- NOTE | 2025-09-07 12:15 | DI.RAD_ITS ---
Exam(s) XR PORTABLE CHEST AP POST LINE EXAM: XR PORTABLE CHEST AP POST LINE CLINICAL HISTORY: cvc placement TECHNIQUE: 2D digital imaging was performed. COMPARISON: CR,XR XR PORTABLE CHEST AP POST LINE from 09/07/[address] CHEST/ABD/PEL W from 09/07/2025 FINDINGS: A right internal jugular central line has been inserted. The tip projects at the lower SVC. There is no change in the positioning of the nasogastric and endotracheal tubes. LUNGS: Small bilateral pleural effusions noted. No pneumothorax. HEART: Normal enlarged, unchanged. AORTA: Normal diameter. BONES: Unremarkable for age. Soft tissues: Unremarkable. IMPRESSION: Satisfactory placement of central venous catheter. DATA REPOSITORY: RADIATION DOSE DELIVERED:
--- NOTE | 2025-09-07 12:42 | W.PM.OP ---
Operative Note Operative Note PRE-OP DIAGNOSIS: Shock, encephalopathy POST-OP DIAGNOSIS: same PROCEDURE: Central line placement - Right internal jugular vein SURGEON: Rogerio Castellanos ANESTHESIA TYPE: Local By Surgeon ESTIMATED BLOOD LOSS: 10 PATHOLOGY: none sent COMPLICATIONS: None Indications: Need IV access in a critically ill patient (medication and fluid delivery, lab draws) Procedure Description: The procedure risks, benefits, and alternatives were discussed with the patients , who understood and informed consent was obtained. Laboratory studies and radiographs were reviewed. A time-out was performed. Bedside ultrasound was used to identify an appropriate site for central line placement in the right internal jugular vein. Sterile technique was used throughout the procedure. The site was cleaned and draped in a sterile fashion. The patient was placed in trendelenburg position. Under ultrasound guidance, the introducer needle was advanced until the target vein was accessed. The blood was dark red and non-pulsatile. The guidewire was advanced through the introducer needle. The correct location of the guidewire within the target vein was confirmed on ultrasound. The tract to the vein was dilated and a triple lumen central venous catheter was advanced to 17 cm. The guidewire was removed without difficulty. Each lumen caitie blood and was flushed with sterile saline. The catheter was secured in place. A bio-patch and sterile dressing were applied. Follow-up: A chest radiograph was ordered to confirm appropriate catheter position Date of Procedure: 09/07/25
[2025-09-07] MEDS: Lactulose 20 GM/30 ML CUP 15 GM NG ×2 (14:38→20:39)
[2025-09-07] MEDS: PROPOFOL 1,000 MG/100 ML BTL 26.181 MG IV_INF ×2 (14:44→18:25)
[2025-09-07] MEDS: fentaNYL 1,000 MCG in Normal Saline 80 ML 16.2 MCG IV_INF ×2 (14:56→21:42)
--- NOTE | 2025-09-07 15:39 | CHAPLAIN ---
Merrill is sedated and intubated currently. He lives at [facility] and his Cely is at home. She is currently an in-patient here and has been visiting Merrill in the ICU. She talked about their 42 year marriage and how they met. She said her son, his girlfriend and two children live with her. When I asked if she wanted anyone to be here with her, she said her son is not feeling well. I will continue to visit Merrill and Cely.
--- NOTE | 2025-09-07 16:18 | W.PM.PROGNOT ---
Objective Last Vital Signs Temp 35.6 C L 09/07/25 09:45 Pulse 62 09/07/25 15:01 Resp 12 09/07/25 15:03 BP 108/50 L 09/07/25 15:03 Pulse Ox 92 09/07/25 15:03 Laboratory Results - last 24 hr 09/07/25 09/07/25 09/07/25 03:50 05:12 05:41 WBC 2.91 L RBC 2.55 L Hgb 7.2 L Hct 22.9 L MCV 90 MCH 28.2 MCHC 31.4 L RDW 20.0 H Plt Count 82 L MPV 10.3 Immature Gran % 0.0 Neutrophils % 78.4 Lymphocytes % 11.7 Monocytes % 7.2 Eosinophils % 2.4 Basophils % 0.3 Nucleated RBC % 0.0 Absolute Neutrophils 2.28 Absolute Lymphocytes 0.34 L Absolute Monocytes 0.21 Absolute Eosinophils 0.07 Absolute Basophils 0.01 RBC Morphology See Below Hypochromasia 1+ PT 13.3 H INR 1.3 H APTT 27.6 VBG pH 7.48 H VBG pCO2 32 L VBG pO2 48 VBG HCO3 24 VBG Total CO2 23 L VBG O2 Saturation 84 VBG Base Excess 0 VBG Lactate 6.4 H* Sodium 146 H Potassium 3.8 Chloride 108 H Carbon Dioxide 21.6 Anion Gap 16.4 H BUN 39 H Creatinine 1.7 H Est GFR (CKD-EPI 2020) 39.65 Glucose 112 H Calcium 8.1 L Total Bilirubin 1.10 AST 32 ALT 23 Alkaline Phosphatase 132 H Ammonia 129 H Troponin I 20 21 Total Protein 5.1 L Albumin 2.6 L TSH 7.23 H Free T4 1.57 Urine Color Dark Yellow Urine Clarity Cloudy Urine pH 5.5 Ur Specific [place] 1.015 Urine Protein Negative Urine Ketones Trace H Urine Blood Moderate H Urine Nitrite Negative Urine Bilirubin Negative Urine Urobilinogen 0.2 Ur Leukocyte Esterase Small H Urine RBC 3-5 H Urine WBC >50 H Ur Epithelial Cells Few Urine Crystals Negative Urine Bacteria Moderate Urine Casts Negative Urine Mucus Moderate Ur Culture Indicated? Yes Urine Glucose Negative COVID-19 Source SARS-CoV-2 (PCR) Influenza Type A (PCR) Influenza Type B (PCR) RSV (PCR) 09/07/25 09/07/25 09/07/25 07:00 07:15 11:01 WBC RBC Hgb Hct MCV MCH MCHC RDW Plt Count MPV Immature Gran % Neutrophils % Lymphocytes % Monocytes % Eosinophils % Basophils % Nucleated RBC % Absolute Neutrophils Absolute Lymphocytes Absolute Monocytes Absolute Eosinophils Absolute Basophils RBC Morphology Hypochromasia PT INR APTT VBG pH 7.49 H VBG pCO2 33 L VBG pO2 201 VBG HCO3 25 VBG Total CO2 24 VBG O2 Saturation VBG Base Excess 2 VBG Lactate Sodium Potassium Chloride Carbon Dioxide Anion Gap BUN Creatinine Est GFR (CKD-EPI 2020) Glucose Calcium Total Bilirubin AST ALT Alkaline Phosphatase Ammonia Troponin I 18 Total Protein Albumin TSH Free T4 Urine Color Urine Clarity Urine pH Ur Specific [place] Urine Protein Urine Ketones Urine Blood Urine Nitrite Urine Bilirubin Urine Urobilinogen Ur Leukocyte Esterase Urine RBC Urine WBC Ur Epithelial Cells Urine Crystals Urine Bacteria Urine Casts Urine Mucus Ur Culture Indicated? Urine Glucose COVID-19 Source Nasopharynx SARS-CoV-2 (PCR) Negative Influenza Type A (PCR) Negative Influenza Type B (PCR) Negative RSV (PCR) Negative
[2025-09-07] MEDS: Insulin Aspart 300 UNITS/3 ML PEN SC (17:28)
[2025-09-07] MEDS: Sennosides/Docusate Sodium TAB 2 TAB NG (20:40)
[2025-09-07] MEDS: Rifaximin 550 MG TAB NG (20:40)
[2025-09-07] MEDS: PROPOFOL 1,000 MG/100 ML BTL 22.909 MG IV_INF (23:06)
[2025-09-08] VITALS (88 sets, daily range): BP systolic 95–137; BP diastolic 38–72; PULSE 52–92; RESP 10–26; TEMP 36.2–37.9; O2SAT 80–100
[2025-09-08] MEDS: PROPOFOL 1,000 MG/100 ML BTL 19.636 MG IV_INF ×4 (03:06→21:02)
[2025-09-08] MEDS: Normal Saline Flush 10 ML SYR IVP ×4 (04:48→20:04)
[2025-09-08 05:13] LABS: BE (Venous) 4 mmol/L (-2-3); HCO3 (Venous) 29 mmol/L (23-28); O2 Sat (Venous) 89 %; TCO2 (Venous) 28 mmol/L (24-29); pCO2 (Venous) 43 mmHg (41-51); pO2 (Venous) 58 mmHg
[2025-09-08] MEDS: Levothyroxine 100 MCG TAB NG (05:22)
[2025-09-08 05:28] LABS: INR 1.3 (0.9-1.1); Prothrombin Time 13.0 sec (9.1-11.1)
[2025-09-08 05:29] LABS: HCT 22.2 % (40.0-50.0); MCH 26.9 pg (27.0-33.0); MCHC 29.7 % (32.0-36.0); MCV 91 fL (80-95); MPV 11.2 fL (8.0-11.0); Platelet Count 114 10^3/uL (130-400); RBC 2.45 10^6/uL (4.36-5.78); RDW-SD 67.0 fL; WBC 5.00 10^3/uL (4.4-10.8)
[2025-09-08] MEDS: Norepinephrine in D5W 8 MG/250 ML BAG 7.5 MG IV (05:55)
[2025-09-08 06:00] LABS: HGB 6.6 g/dL (13.5-17.5)
[2025-09-08 06:15] LABS: RDW 20.2 % (11.8-14.1)
[2025-09-08 06:31] LABS: ALT 19 U/L (10-49); AST 28 U/L (<34); Albumin 2.3 g/dL (3.4-5.0); Alkaline Phosphatase 115 U/L (46-116); BUN 36 mg/dL (9-23); Bilirubin, Total 0.80 mg/dL (0.2-1.2); CO2 27.7 mmol/L (20.0-31.0); Calcium 7.7 mg/dL (8.3-10.6); Glucose 92 mg/dL (74-106); Potassium 3.8 mmol/L (3.5-5.1); Sodium 145 mmol/L (136-145); Total Protein 4.6 g/dL (5.7-8.2)
[2025-09-08] MEDS: fentaNYL 1,000 MCG in Normal Saline 80 ML 10.8 MCG IV_INF ×2 (06:59→18:29)
[2025-09-08] MEDS: Rifaximin 550 MG TAB NG ×2 (07:26→20:04)
[2025-09-08] MEDS: Sennosides/Docusate Sodium TAB 2 TAB NG ×2 (07:27→20:05)
[2025-09-08] MEDS: Tamsulosin 0.4 MG CAPCR PO (07:27)
[2025-09-08] MEDS: Lactulose 20 GM/30 ML CUP 15 GM NG ×3 (07:32→20:03)
[2025-09-08] MEDS: Amiodarone 200 MG TAB NG (07:32)
[2025-09-08] MEDS: Spironolactone 25 MG TAB NG (07:47)
--- NOTE | 2025-09-08 08:22 | W.PULMCC ---
General Date of Service Date of service: 09/08/25 Time of Service: 07:45 Reason for Admission to ICU: Respiratory failure, encephalopathy Assessment and Plan Assessment and plan (1) Septic shock: Status: Acute (2) Pleural effusion: Status: Acute (3) Respiratory failure requiring intubation: Status: Acute (4) Anemia: Status: Chronic Qualifiers: Anemia type: other cause Other causes of anemia: chronic disease, other Qualified Code(s): D63.8 - Anemia in other chronic diseases classified elsewhere Recommendations Pulmonary: Assessment: 1. Acute respiratory failure - due to hepatic encephalopathy. On 21% FiO2 2. Septic shock - on 3 mcg/min levophed 3. Hepatic encephalopathy - on rifaxamin and lactulose 4. Cirrhosis - 2/2 alcohol abuse. S/P TIPS 5. Pleural effusions - likely related to cirrhosis 6. Afib / flutter - on eliquis 7. Hx perforated gastric ulcer - 07/2025 8. Anemia - Hb 6.6 this AM, down from 7.2 yesterday (9.2 in 07/2025) 9. Systolic HF - EF 35% 10. UTI - urine culture pending Recommendations: - sedation vacation this AM to assess mental status. If following commands, can attempt breathing trials. If not, may take more time to recover for his hepatic encephalopathy. - titrate levophed for MAP > 65 - continue rifaxamin and lactulose for hepatic encephalopathy - ventilator setting appropriate. No changes today - his Hb has mildly decreased. No over signs of active bleeding / hemorrage. He is very high risk for DVT so I feel contination of lovenox ppx is reasonable. Continue to hold eliquis - his overall prognosis is guarded. Primary team planning on having discussions with family. I feel a more palliative approach would be very reasonable - agree with rocephin for UTI. Followup on urine culture - 1 U PRBC this AM. - 40 mg IV lasix x [address] Waters I&O: Intake & Output 09/05/25 09/06/25 09/07/25 09/08/25 23:59 23:59 23:59 23:59 Intake Total 1217.484 / 1217.484 246.001 / 246.001 Output Total 950 / 950 325 / 325 Balance 267.484 / 267.484 -78.999 / -78.999 Weight 105.7 kg 106.5 kg Code Status: Resuscitation Status Full Code Subjective Critical and life-threatening events over the past 24 hours: Patient is a 80 yo with a history of cirrhosis, Afib, systolic HF (EF 24%), recent perforated gastric ulcer, recurrent SBO, who was admitted on 09/07/25 for encephalopathy. He is currently intubated and sedated. He had recent hospitalization at [facility] for hepatic encephalopathy, a perforated gastric ulcer, and respiratory failure. Was intubated during that admission. He was discharged to rehab, where he developed worsening encephalopathy, so was brought to the ED. CT head was unremarkable, other than sinusitis. CT chest showed bilateral pleural effusions and posterior atelectasis. ABG showed a low CO2 level at 32. He was intubated in the ED for airway protection / encephalopathy. Currently sedated with propofol and fentanyl gtt. On FiO2 21%. Levophed titrated down to 3 mcg/min ROS: unable to obtain due to clinical status Exam Narrative Exam Narrative: General: intubated, sedated Head: normocephalic, ET tube in place ENT: no stridor, trachea midline CV: normal rate, regular rhythm Respiratory: no wheezing, no crackles, no rhonchi, no prolonged expiration GI: abd soft, non-distended Skin: no rashes Extremities: +2 pitting edema, no digital clubbing Neuro: sedated Most Recent VS/Results Last Vital Signs Temp 36.3 C L 09/08/25 03:10 Pulse 58 L 09/08/25 06:02 Resp 12 09/08/25 07:49 BP 106/56 L 09/08/25 07:49 Pulse Ox 96 09/08/25 07:49 Laboratory Results - last 24 hr 09/07/25 09/08/25 11:01 05:00 WBC 5.00 RBC 2.45 L Hgb 6.6 L* Hct 22.2 L MCV 91 MCH 26.9 L MCHC 29.7 L RDW 20.2 H Plt Count 114 L MPV 11.2 H PT 13.0 H INR 1.3 H VBG pH 7.49 H 7.43 H VBG pCO2 33 L 43 VBG pO2 201 58 VBG HCO3 25 29 H VBG Total CO2 24 28 VBG O2 Saturation 89 VBG Base Excess 2 4 H Sodium 145 Potassium 3.8 Chloride 111 H Carbon Dioxide 27.7 Anion Gap 6.3 BUN 36 H Creatinine 1.5 H Est GFR (CKD-EPI 2020) 46.26 Glucose 92 Calcium 7.7 L Total Bilirubin 0.80 AST 28 ALT 19 Alkaline Phosphatase 115 Total Protein 4.6 L Albumin 2.3 L Time spent with patient Time spent in Critical Care: 36 Time spent in Critical care included: Performing procedures not included in c.c time, Coordination of care, Chart review, Documenting critically ill care, Time at immediate bedside, Discussing critically ill care with other medical staff and Discussing care with family members
--- NOTE | 2025-09-08 08:34 | PDOC.CMPRO ---
Date of service: 09/08/25 Time of Service: 08:35 Care Management Progress Note Progress Note Text Progress Note Text: Merrill was lying in bed in the ICU when CM went to see him. He failed his sedation vacation this morning and remains intubated. Merrill is still on the norepinephrine drip at 9.375 mls/hr (5 mcg) with his SBP in the upper 90s to 110. His Cely has been visiting frequently and plans to see him again this afternoon. Another weaning trial will be conducted tomorrow. Merrill has had issues with chronic anemia. This morning his Hgb dropped to 6.6 and he was type and screened for 2 units of blood and one is being transfused. Discharge Potential Discharge Needs: Other (SNF) Anticipated Barriers to Discharge: Medical Status Patient/Family Education Needs: Review discharge instructions, discuss Ask Me Three Transportation: Other (to be determined by disposition) Plan: Merrill remains critically ill and is intubated in the ICU. He is on a Norepinephrine drip with BPs in the 110/40-50 range. Merrill will likely return to [facility] when medically stable. He will follow up with the facility providers and plan of care and transport via RCT w/c van. CM will follow and continue to assess for discharge needs. Social Determinants of Health Screening Social Determinants of health last assessed in clinic: 09/08/25 Will the Patient Participate in the Screening?: Unable to obtain Do you worry about having a steady place to live?: no Problems where you live: no known problems In the past 12 months, have you had to go without electric, gas, oil or water in your home?: no Has lack of transportation kept you from medical appointments or from doing things needed for daily living?: no Has anyone in your life made you feel unsafe or unsupported?: no How hard is it for you to pay for the very basics like food, housing, medical care, and heating? Would you say it is:: Not hard at all Do you want help finding or keeping work or a job?: I do not need or want help If for any reason you need help with day-to-day activities such as bathing, preparing meals, shopping, managing finances, etc., do you get the help you need?: I could use a little more help How often do you feel lonely or isolated from those around you?: Sometimes Do you speak a language other than [place] at home?: No Does the patient want assistance with any of the above?: No Comments: lives in a SNF Health Related Social Needs Health related social needs: problems with daily activities (Z73.9) and feeling lonely/isolated (Z60.8)
[2025-09-08 08:47] LABS: Anion Gap 8.3 mmol/L (3-11); Chloride 109 mmol/L (98-107)
--- NOTE | 2025-09-08 10:29 | W.NUTRFU ---
Date of service: 09/08/25 Time of Service: 10:29 Nutrition Note NOTE: consult received re: diabetes education/mgt. Did not visit with pt - at this time not responsive as he is intubated, being NPO for almost the last 24 hours. Wt data shows overall wt gain trend from this summer (edema noted by nursing to bilat arms and legs) - pt on furosemde at home and being diuresed inpatient. Ordered for sensitive sliding scale corrective insulin with novolog q 6 hours. Glucose today (09/09) 94 fasting and capillary of 91 at 7:32. LAst A1C was 6.3 lastJuly. glucose looks to target - unable to assess or ask about frequency of any hypoglycemia due to intubation. 09/08 - pt code status changed to DNR/DNI. Nutrition dx: inadequate intake related to extended time NPO becuase of intubation. Going on 3rd day of NPO status. Intervention: enteral feedings would be indicated at this time due to extended NPO time. No COLST on file that I see indicating preference for artificial nutrition - this may be a conversation with his DOP but feel with all his comorbidities this may futile.Will leave this decision to family and medical team Will monitor progress and watch intubation status. Time Spent in Nutritional Counseling and Treatment: 0
[2025-09-08] MEDS: Pantoprazole 40 MG VIAL IVP (10:34)
[2025-09-08] MEDS: Furosemide 40 MG/4 ML VIAL IVP (10:34)
[2025-09-08] MEDS: cefTRIAXone 1 GM/50 ML BAG IVPB (10:34)
--- NOTE | 2025-09-08 11:00 | DI.RAD_ITS ---
Exam(s) XR PORTABLE CHEST AP POST LINE EXAM: XR PORTABLE CHEST AP POST LINE CLINICAL HISTORY: s/p oral gastric tube placement. TECHNIQUE: 2D digital imaging was performed. COMPARISON: CT CT CHEST/ABD/PEL W from 09/07/2025 CR XR PORTABLE CHEST AP POST LINE from 09/07/2025 FINDINGS: Single AP portable view. Patient is intubated. Distal tip of the endotracheal tube is in the trachea 2 cm above the luis. Distal tip of right jugular central line is in good position at the SVC-RA junction. There is also an NG tube in place. Its distal tip is in the proximal half of the stomach. There is mild cardiomegaly again noted. Small-moderate size bilateral pleural effusions are noted, as evident on yesterday's CT scan. IMPRESSION: Lines and tubes are in good positioncardiomegaly. Small-moderate size bilateral pleural effusions. Mild infiltrate in the lung bases versus volume loss related to the bilateral effusions. Cannot exclude an element of pulmonary edema. DATA REPOSITORY: RADIATION DOSE DELIVERED:
[2025-09-08] MEDS: Chlorhexidine Gluconate 0.12% Mouthwash 480 ML BTL MM ×2 (14:46→20:11)
--- NOTE | 2025-09-08 16:05 | W.PM.PROGNOT ---
Date of Service Date of service: 09/08/25 Time of Service: 08:00 Assessment and Plan Assessment and plan (1) Septic shock: Status: Acute Assessment and plan: Sepsis with hypotension requiring pressors and end-organ damage Central line placed Continue norepinephrine per protocol Continue antibiotics (2) Respiratory failure requiring intubation: Status: Acute Assessment and plan: Appreciate pulm/CC (3) Pleural effusion: Status: Acute Assessment and plan: Previously noted, due to cirrhosis (4) Anemia: Status: Chronic Assessment and plan: Hemoglobin 6.6, transfusing PRBC 1u Repeat H&H Previously anemic requiring transfusions, last Jul 29 Unclear if he required transfusion during [facility] hospitalization last week (5) Hyperammonemic encephalopathy: Start date: 09/07/25 Status: Acute Assessment and plan: Continue lactulose No indication to trend ammonia (6) Acute UTI: Start date: 09/07/25 Status: Acute Assessment and plan: Abnormal UA without supporting evidence of UTI Culture pending Continue ceftriaxone (7) Elevated lactic acid level: Start date: 09/07/25 Status: Acute Assessment and plan: No longer trending lactic acid (8) Acute kidney injury: Start date: 09/07/25 Status: Acute Assessment and plan: Baseline creatinine around 1.1 RODOLFO with creatinine 1.4-1.7 this hospitalization Monitor (9) CHF (congestive heart failure): Assessment and plan: PRN diuresis (10) Type 2 diabetes mellitus: Assessment and plan: SSI (11) Chronic atrial fibrillation: Assessment and plan: DOAC held for transfusion (12) Hypertension: Status: Chronic Assessment and plan: Home regimen through OGT (13) Cirrhosis: Assessment and plan: Chronic with multiple possible etiologies. He does have recurrent encephalopathy. He is status post TIPS. (14) Pancytopenia: Status: Chronic Assessment and plan: Associated with chronic liver disease process. (15) Hypothyroidism (acquired): Assessment and plan: TSH is always elevated and levothyroxine will be continued at present dose. His free T4 is not low. He does have supervision of his medical therapy which should help with adjusting dosage. (16) Colon cancer: Assessment and plan: Status post hemicolectomy with colostomy bag in the left lower quadrant. This is permanent. Subjective Subjective Interval history since last seen: Mr. Orellana remains intubated and sedated in the ICU. Exam Narrative Exam Narrative: General: This is a sedated man, mechanically ventilated HEENT: Normocephalic, atraumatic. ETT tube CV: RRR. BLE 2+ pitting edema Resp: CTAB on mechanical ventilator Abd: soft, NTND MSK: normal tone Neuro: sedated Objective Last Vital Signs Temp 37.0 C 09/08/25 14:01 Pulse 76 09/08/25 14:01 Resp 12 09/08/25 14:01 BP 108/42 L 09/08/25 15:51 Pulse Ox 90 L 09/08/25 15:51 Laboratory Results - last 24 hr 09/08/25 09/08/25 05:00 08:48 WBC 5.00 RBC 2.45 L Hgb 6.6 L* Hct 22.2 L MCV 91 MCH 26.9 L MCHC 29.7 L RDW 20.2 H Plt Count 114 L MPV 11.2 H PT 13.0 H INR 1.3 H VBG pH 7.43 H VBG pCO2 43 VBG pO2 58 VBG HCO3 29 H VBG Total CO2 28 VBG O2 Saturation 89 VBG Base Excess 4 H Sodium 145 Potassium 3.8 Chloride 109 H Carbon Dioxide 27.7 Anion Gap 8.3 BUN 36 H Creatinine 1.5 H Est GFR (CKD-EPI 2020) 46.26 Glucose 92 Calcium 7.7 L Total Bilirubin 0.80 AST 28 ALT 19 Alkaline Phosphatase 115 Total Protein 4.6 L Albumin 2.3 L ABO/Rh O Positive Antibody Screen NEGATIVE Crossmatch See Detail Time Spent with Patient Time Spent with Patient: 35-49 minutes Time was spent: preparing to see the patient(eg.review tests), obtaining and/or reviewing separately otained hiistory, ordering medications,tests, procedures, referring, communicating with other health administrator health care facility, indepentently interpreting results, counseling the patient and care coordination
[2025-09-08 21:20] LABS: HCT 26.3 % (40.0-50.0); HGB 8.3 g/dL (13.5-17.5)
[2025-09-08] MEDS: Acetaminophen 500 MG TAB 1000 MG PO (21:48)
[2025-09-09] VITALS (106 sets, daily range): BP systolic 91–117; BP diastolic 38–59; PULSE 48–75; RESP 8–24; TEMP 36.4–37.3; O2SAT 84–100
[2025-09-09] MEDS: PROPOFOL 1,000 MG/100 ML BTL 19.636 MG IV_INF ×2 (02:23→07:36)
[2025-09-09] MEDS: fentaNYL 1,000 MCG in Normal Saline 80 ML 10.8 MCG IV_INF ×2 (04:21→16:34)
[2025-09-09 05:42] LABS: HCT 26.6 % (40.0-50.0); HGB 8.4 g/dL (13.5-17.5); MCH 28.0 pg (27.0-33.0); MCHC 31.6 % (32.0-36.0); MCV 89 fL (80-95); MPV 10.5 fL (8.0-11.0); Platelet Count 157 10^3/uL (130-400); RBC 3.00 10^6/uL (4.36-5.78); RDW 19.7 % (11.8-14.1); RDW-SD 64.4 fL; WBC 8.96 10^3/uL (4.4-10.8)
[2025-09-09] MEDS: Normal Saline Flush 10 ML SYR IVP ×4 (05:47→21:32)
[2025-09-09] MEDS: Levothyroxine 100 MCG TAB NG (05:47)
[2025-09-09 06:11] LABS: ALT 18 U/L (10-49); AST 28 U/L (<34); Albumin 2.3 g/dL (3.4-5.0); Alkaline Phosphatase 120 U/L (46-116); Anion Gap 8.3 mmol/L (3-11); BUN 33 mg/dL (9-23); Bilirubin, Total 1.20 mg/dL (0.2-1.2); CO2 26.7 mmol/L (20.0-31.0); Calcium 7.9 mg/dL (8.3-10.6); Chloride 110 mmol/L (98-107); Glucose 94 mg/dL (74-106); Potassium 3.9 mmol/L (3.5-5.1); Sodium 145 mmol/L (136-145); Total Protein 4.7 g/dL (5.7-8.2)
[2025-09-09 06:53] LABS: BE (Venous) 4 mmol/L (-2-3); HCO3 (Venous) 28 mmol/L (23-28); O2 Sat (Venous) 94 %; TCO2 (Venous) 27 mmol/L (24-29); pCO2 (Venous) 42 mmHg (41-51); pO2 (Venous) 67 mmHg
[2025-09-09 07:09] LABS: INR 1.2 (0.9-1.1); Prothrombin Time 12.1 sec (9.1-11.1)
[2025-09-09] MEDS: Norepinephrine in D5W 8 MG/250 ML BAG 9.375 MG IV (07:36)
[2025-09-09] MEDS: Enoxaparin 40 MG/0.4 ML SYR SC (07:38)
[2025-09-09] MEDS: Lactulose 20 GM/30 ML CUP 15 GM NG ×2 (07:38→21:30)
[2025-09-09] MEDS: Rifaximin 550 MG TAB NG ×2 (07:39→21:32)
[2025-09-09] MEDS: Amiodarone 200 MG TAB NG (07:39)
[2025-09-09] MEDS: Tamsulosin 0.4 MG CAPCR PO (07:39)
[2025-09-09] MEDS: Spironolactone 25 MG TAB NG (07:39)
--- NOTE | 2025-09-09 08:30 | PUCC_ITS ---
General Date of Service Date of service: 09/09/25 Time of Service: 07:45 Reason for Admission to ICU: Respiratory failure, encephalopathy Assessment and Plan Assessment and plan (1) Pleural effusion: Status: Acute (2) Respiratory failure requiring intubation: Status: Acute (3) Acute UTI: Status: Acute (4) Anemia: Status: Chronic Qualifiers: Anemia type: other cause Other causes of anemia: chronic disease, other Qualified Code(s): D63.8 - Anemia in other chronic diseases classified els ewhere (5) Septic shock: Status: Acute (6) Hyperammonemic encephalopathy: Status: Acute Recommendations Pulmonary: Assessment: 1. Acute respiratory failure - due to hepatic encephalopathy. On 21% FiO2 2. Septic shock - on 3 mcg/min levophed 3. Hepatic encephalopathy - on rifaxamin and lactulose 4. Cirrhosis - 2/2 alcohol abuse. S/P TIPS 5. Pleural effusions - likely related to cirrhosis. Do not have any clear evidence of active pneumonia. On minimal oxygen requirements. Will hold off on thoracentesis at this time 6. Afib / flutter - on eliquis 7. Hx perforated gastric ulcer - 07/2025 8. Anemia - Hb 6.6 this AM, down from 7.2 yesterday (9.2 in 07/2025) 9. Systolic HF - EF 35% 10. UTI - urine culture pending Recommendations: - plan for daily sedation vacations and breathing trials in the mornings, to assess candidacy for extubation. Family discussions will be important, as there is a good chance he would require re-intubation despite optimization. Given his comorbidities, I feel taking a more palliative approach when extubated would be reasonable. - titrate levophed for MAP > 65 - continue rifaxamin and lactulose for hepatic encephalopathy - start tube feedings - ventilator setting appropriate. No changes today - He is very high risk for DVT so I feel contination of lovenox ppx is reasonable. Continue to hold eliquis - agree with rocephin for UTI. Followup on urine culture - 40 mg IV lasix x [address] Waters I&O: Intake & Output 09/06/25 09/07/25 09/08/25 09/09/25 23:59 23:59 23:59 23:59 Intake Total 1217.484 / 6036.721 4763.580 / 1139.580 486.453 / 486.453 Output Total 950 / 950 1540 / 1540 975 / 975 Balance 267.484 / 267.484 -400.420 / -400.420 -488.547 / -488.547 Weight 105.7 kg 106.5 kg 102.9 kg Code Status: Resuscitation Status DNR/DNI Subjective Critical and life-threatening events over the past 24 hours: Patient is a 80 yo with a history of cirrhosis, Afib, systolic HF (EF 24%), recent perforated gastric ulcer, recurrent SBO, who was admitted on 09/07/25 for encephalopathy. He is currently intubated and sedated. He had recent hospitalization at [facility] for hepatic encephalopathy, a perforated gastric ulcer, and respiratory failure. Was intubated during that admission. He was discharged to rehab, where he developed worsening encephalopathy, so was brought to the ED. CT head was unremarkable, other than sinusitis. CT chest sh owed bilateral pleural effusions and posterior atelectasis. ABG showed a low CO2 level at 32. He was intubated in the ED for airway protection / encephalopathy. Currently sedated with propofol and fentanyl gtt. On FiO2 21%. On 5 mcg/min levophed. Failed breathing trial yesterday after 10 min. Had significant desaturations on pressure support. Ostomy output has increased ROS: unable to obtain due to clinical status Exam Narrative Exam Narrative: General: intubated, sedated Head: normocephalic, ET tube in place ENT: no stridor, trachea midline CV: normal rate, regular rhythm Respiratory: no wheezing, no crackles, no rhonchi, no prolonged expiration GI: abd soft, non-distended Skin: no rashes Extremities: +2 pitting edema, no digital clubbing Neuro: sedated Most Recent VS/Results Last Vital Signs Temp 36.7 C 09/09/25 07:56 Pulse 62 09/09/25 06:01 Resp 12 09/09/25 08:00 BP 108/52 L 09/09/25 08:00 Pulse Ox 95 09/09/25 08:00 Laboratory Results - last 24 hr 09/08/25 09/08/25 09/08/25 05:00 08:48 21:10 WBC RBC Hgb 8.3 L Hct 26.3 L MCV MCH MCHC RDW Plt Count MPV PT INR VBG pH VBG pCO2 VBG pO2 VBG HCO3 VBG Total CO2 VBG O2 Saturation VBG Base Excess Sodium Potassium Chloride 109 H Carbon Dioxide Anion Gap 8.3 BUN Creatinine Est GFR (CKD-EPI 2020) Glucose Calcium Total Bilirubin AST ALT Alkaline Phosphatase Total Protein Albumin ABO/Rh O Positive Antibody Screen NEGATIVE Crossmatch See Detail 09/09/25 09/09/25 04:55 06:45 WBC 8.96 RBC 3.00 L Hgb 8.4 L Hct 26.6 L MCV 89 MCH 28.0 MCHC 31.6 L RDW 19.7 H Plt Count 157 MPV 10.5 PT 12.1 H INR 1.2 H VBG pH 7.43 H VBG pCO2 42 VBG pO2 67 VBG HCO3 28 VBG Total CO2 27 VBG O2 Saturation 94 VBG Base Excess 4 H Sodium 145 Potassium 3.9 Chloride 110 H Carbon Dioxide 26.7 Anion Gap 8.3 BUN 33 H Creatinine 1.5 H Est GFR (CKD-EPI 2020) 45.89 Glucose 94 Calcium 7.9 L Total Bilirubin 1.20 AST 28 ALT 18 Alkaline Phosphatase 120 H Total Protein 4.7 L Albumin 2.3 L ABO/Rh Antibody Screen Crossmatch Time spent with patient Time spent in Critical Care: 35 Time spent in Critical care included: Performing procedures not included in c.c time, Coordination of care, Chart review, Documenting critically ill care, Time at immediate bedside, Discussing critically ill care with other medical staff and Discussing care with family members
--- NOTE | 2025-09-09 08:43 | CMPROGNOTE_ITS ---
Date of service: 09/09/25 Time of Service: 08:43 Care Management Progress Note Progress Note Text Progress Note Text: Merrill was lying in bed in the ICU when CM met with him. He remains sedated and intubated. Another sedation vacation trial was held this morning but he was unable to breathe on his own. He is now DNR/DNI status. RICHARD met with his this morning and discussed the events of the morning and the failed extubation trial. She understands that if he does get extubated and does not do well, he will NOT be re-intubated. She stated it was a difficult decision, but neither Merrill, nor she or their son Scott would wish for him to remain intubated indefinitely. Merrill will be started on tube feedings today as he has been NPO for several days. Discharge Potential Discharge Needs: Other (SNF) Anticipated Barriers to Discharge: Medical Status Patient/Family Education Needs: Review discharge instructions, discuss Ask Me Three Transportation: RCT Plan: Merrill remains critically ill and is intubated in the ICU. He is on a Norepinephrine drip with BPs in the 110/40-50 range. Merrill will likely return to [facility] when medically stable. He will follow up with the facility providers and plan of care and transport via RCT w/c van. CM will follow and continue to assess for discharge needs. Social Determinants of Health Screening Social Determinants of health last assessed in clinic: 09/08/25 Will the Patient Participate in the Screening?: Unable to obtain Do you worry about having a steady place to live?: no Problems where you live: no known problems In the past 12 months, have you had to go without electric, gas, oil or water in your home?: no Has lack of transportation kept you from medical appointments or from doing things needed for daily living?: no Has anyone in your life made you feel unsafe or unsupported?: no How hard is it for you to pay for the very basics like food, housing, medical care, and heating? Would you say it is:: Not hard at all Do you want help finding or keeping work or a job?: I do not need or want help If for any reason you need help with day-to-day activities such as bathing, preparing meals, shopping, managing finances, etc., do you get the help you need?: I could use a little more help How often do you feel lonely or isolated from those around you?: Sometimes Do you speak a language other than Malay at home?: No Does the patient want assistance with any of the above?: No Comments: lives in a SNF Health Related Social Needs Health related social needs: problems with daily activities (Z73.9) and feeling lonely/isolated (Z60.8)
[2025-09-09] MEDS: Furosemide 40 MG/4 ML VIAL IVP (09:56)
[2025-09-09] MEDS: cefTRIAXone 1 GM/50 ML BAG IVPB (10:09)
[2025-09-09] MEDS: Pantoprazole 40 MG VIAL IVP (10:10)
[2025-09-09] MEDS: Chlorhexidine Gluconate 0.12% Mouthwash 480 ML BTL MM ×2 (10:22→21:32)
--- NOTE | 2025-09-09 13:35 | W.NUTRFU ---
Date of service: 09/09/25 Time of Service: 13:35 Nutrition Note NOTE: Received provider request for enteral feeding recommendation as pt remains ventilated in ICU on day 3 of npo status. Current estimated energy needs: 1358kcals (2010 PSU equation), 123g protein (2g.kg/IBW), and 2000mL fluid (fluid out +500 method) Current rate of propofol at 19.636mL/hour provides 471mL propofol per day and 518kcals from lipid emulsion (47g fat) Would suggest the following enteral feeding protocol: Jevity 1.5 formula at 561mL per day- run continuously for better toleration Suggest start rate of 15mL per hour and increase by 5mL q 6 hours until goal rate of 23mL per hour is achieved. goal rate of formula provides: 828kcals, 36g protein and 428mL free water, 28g lipid. with additional total propofol intake would increase to 1346kcals and 75.5g lipid. This rate meets almost 100% of his daily energy estimate, however falls short on his protein needs. Free Water: recommended feeding provides 428mL free water, leaving 1572mL in free water to be achieved through free water flushes. Recommend 65mL free water flushes q 2hours during 24 hour feeding cycle.. Time Spent in Nutritional Counseling and Treatment: 0
--- NOTE | 2025-09-09 16:07 | W.PM.PROGNOT ---
Date of Service Date of service: 09/09/25 Time of Service: 08:00 Assessment and Plan Assessment and plan (1) Septic shock: Status: Acute Assessment and plan: Sepsis with hypotension and end-organ damage requiring pressors Central line placed Continue norepinephrine per protocol Continue antibiotics Sep 09: He continues to require pressor support. Increasing rate today. Starting tube feeds. (2) Respiratory failure requiring intubation: Status: Acute Assessment and plan: Appreciate pulm/CC Daily sedation weaning trials (3) Pleural effusion: Status: Acute Assessment and plan: Previously noted, due to cirrhosis (4) Anemia: Status: Chronic Assessment and plan: Sep 08 Hemoglobin 6.6, transfusing PRBC 1u Repeat H&H with hgb in the 8's Previously anemic requiring transfusions, last Jul 29 Unclear if he required transfusion during [facility] hospitalization last week (5) Hyperammonemic encephalopathy: Start date: 09/07/25 Status: Acute Assessment and plan: Continue lactulose No indication to trend ammonia (6) Acute UTI: Start date: 09/07/25 Status: Acute Assessment and plan: Abnormal UA without symptoms of UTI Culture pending, currently with Gram negative rods Continue ceftriaxone (7) Elevated lactic acid level: Start date: 09/07/25 Status: Acute Assessment and plan: No longer trending lactic acid (8) Acute kidney injury: Start date: 09/07/25 Status: Acute Assessment and plan: Baseline creatinine around 1.1 RODOLFO with creatinine 1.4-1.7 this hospitalization Sep 09: unchanged at 1.5, urine output is adequate (9) CHF (congestive heart failure): Assessment and plan: Careful diuresis, one dose at a time. Holding furosemide Sep 09. (10) Type 2 diabetes mellitus: Assessment and plan: SSI (11) Chronic atrial fibrillation: Assessment and plan: DOAC held for transfusion Started on enoxaparin Sep 08, will continue in lieu of home apixaban (12) Hypertension: Status: Chronic Assessment and plan: Home regimen through [facility] (13) Cirrhosis: Assessment and plan: Chronic with multiple possible etiologies. He does have recurrent encephalopathy. He is status post TIPS. (14) Pancytopenia: Status: Chronic Assessment and plan: Associated with chronic liver disease process. (15) Hypothyroidism (acquired): Assessment and plan: TSH is always elevated and levothyroxine will be continued at present dose. His free T4 is not low. He does have supervision of his medical therapy which should help with adjusting dosage. (16) Colon cancer: Assessment and plan: Status post hemicolectomy with colostomy bag in the left lower quadrant. This is permanent. Subjective Subjective Interval history since last seen: Mr. Orellana remains intubated and sedated and on one pressor. No success with sedation wean trial this morning. He is now DNR status. Exam Narrative Exam Narrative: General: This is a sedated man, mechanically ventilated HEENT: Normocephalic, atraumatic. ETT tube CV: RRR. BLE 2+ pitting edema Resp: CTAB on mechanical ventilator Abd: soft, NTND MSK: normal tone Neuro: sedated Objective Last Vital Signs Temp 36.4 C L 09/09/25 12:46 Pulse 64 09/09/25 15:46 Resp 15 09/09/25 15:46 BP 103/56 L 09/09/25 15:46 Pulse Ox 94 09/09/25 15:46 Laboratory Results - last 24 hr 09/08/25 09/09/25 09/09/25 21:10 04:55 06:45 WBC 8.96 RBC 3.00 L Hgb 8.3 L 8.4 L Hct 26.3 L 26.6 L MCV 89 MCH 28.0 MCHC 31.6 L RDW 19.7 H Plt Count 157 MPV 10.5 PT 12.1 H INR 1.2 H VBG pH 7.43 H VBG pCO2 42 VBG pO2 67 VBG HCO3 28 VBG Total CO2 27 VBG O2 Saturation 94 VBG Base Excess 4 H Sodium 145 Potassium 3.9 Chloride 110 H Carbon Dioxide 26.7 Anion Gap 8.3 BUN 33 H Creatinine 1.5 H Est GFR (CKD-EPI 2020) 45.89 Glucose 94 Calcium 7.9 L Total Bilirubin 1.20 AST 28 ALT 18 Alkaline Phosphatase 120 H Total Protein 4.7 L Albumin 2.3 L Time Spent with Patient Time Spent with Patient: 35-49 minutes Time was spent: preparing to see the patient(eg.review tests), obtaining and/or reviewing separately otained hiistory, ordering medications,tests, procedures, referring, communicating with other health acute care nurse practitioner, indepentently interpreting results, counseling the patient, care coordination and other
--- NOTE | 2025-09-09 16:11 | W.PALLCONSUL ---
Date of service: 09/09/25 Time of Service: 16:11 History of Present Illness Narrative: Merrill was seen in his ICU room. He is on ventilator and unresponsive. He does not appear to be in any distress. His nurse feels that he is comfortable. Met with his . She had previously had a conversation with the hospitalist and decided to change his CODE status to DNR/DNI. This was reviewed, she continues to agree with this. She feels he is a strong man and has hope that he might survive intubation. Reviewed that he has not passed weaning trials yet. Plan is for sedation vacation and breathing trials in the mornings. She states that she told him that he can go but she does not want him to. She feels he could hear hear because she saw his HR go up on the monitor when she spoke to him. Assessment and Plan Assessment and plan (1) Septic shock: Status: Acute Assessment and plan: Sepsis with hypotension requiring pressors and end-organ damage Central line placed Remains on norepinephrine and antibiotics (2) Respiratory failure requiring intubation: Status: Acute Assessment and plan: Pulmonology following Remains on mechanical ventilation. (3) Pleural effusion: Status: Acute Assessment and plan: Previously noted, due to cirrhosis (4) Anemia: Status: Chronic Assessment and plan: Received PRBCs, Hgb 8.4 this am. Repeat H&H (5) Hyperammonemic encephalopathy: Start date: 09/07/25 Status: Acute Assessment and plan: On lactulose via NG tube (6) Acute UTI: Start date: 09/07/25 Status: Acute Assessment and plan: On ceftriaxone (7) Elevated lactic acid level: Start date: 09/07/25 Status: Acute Assessment and plan: No longer trending lactic acid (8) Acute kidney injury: Start date: 09/07/25 Status: Acute Assessment and plan: Baseline creatinine around 1.1 RODOLFO with creatinine 1.4-1.7 this hospitalization Monitor (9) CHF (congestive heart failure): Assessment and plan: PRN diuresis (10) Type 2 diabetes mellitus: Assessment and plan: SSI (11) Chronic atrial fibrillation: (12) Hypertension: Status: Chronic (13) Cirrhosis: Assessment and plan: Chronic with multiple possible etiologies. He does have recurrent encephalopathy. He is status post TIPS. (14) Pancytopenia: Status: Chronic Assessment and plan: Associated with chronic liver disease process. (15) Hypothyroidism (acquired): (16) Colon cancer: Assessment and plan: Status post hemicolectomy with colostomy bag in the left lower quadrant. This is permanent. (17) Palliative care encounter: Assessment and plan: His changed his CODE STATUS after discussion with hospitalist. He is now a DNR/DNI. He is currently on mechanical ventilation with daily sedation vacations and breathing trials. His family would benefit from ongoing support from Palliative care. Review of Systems Narrative: Unable- intubated and sedated [facility] All Active Problems (Updated 09/08/25 @ 08:35 by Rogerio Castellanos MD) Septic shock (Acute) Respiratory failure requiring intubation (Acute) Acute kidney injury (Acute) Pancytopenia (Chronic) Obtundation (Acute) Hyperammonemic encephalopathy (Acute) Pneumonia (Acute) Pleural effusion (Acute) Perforated gastric ulcer (Acute) DVT prophylaxis (Acute) Acute UTI (Acute) Encounter for ostomy care education (Acute) Stomach ache (Acute) Delayed gastric transit (Acute) Small bowel obstruction (Acute) Anemia (Chronic) History of creation of ostomy (Acute) Contusion (Acute) Liver mass (Acute) Vomiting (Acute) Elevated lactic acid level (Acute) Acute UTI (Acute) Symptomatic bradycardia (Acute) Acute hypokalemia (Acute) Family conflict (Acute) Chest pain in adult (Acute) Fall (Acute) Chronic low back pain (Chronic) Hematuria (Acute) Leukopenia (Acute) Oral candidiasis (Acute) Sepsis syndrome (Acute) Gram-negative bacteremia (Acute) Cellulitis (Acute) Anemia of chronic disease (Acute) Ventricular ectopy (Acute) Sinus bradycardia (Acute) Leukocytosis (Acute) Hypertension (Chronic) Elevated lactic acid level (Acute) No-show for appointment (Acute) Left rotator cuff tear (Acute) Acute UTI (urinary tract infection) (Acute) Weakness (Acute) Non-ST elevation LA (NSTEMI) (Acute) Pre-syncope (Acute) Frequent falls (Acute) Orthostatic hypotension (Acute) Hypokalemia (Acute) Bradycardia (Acute) Multiple falls (Acute) Acute metabolic encephalopathy (Acute) Medication monitoring encounter (Acute) Chest pain (Acute) Medical History Hypothyroidism (acquired) Depression Lower urinary obstructive symptom CHF (congestive heart failure) EF 25%- 2023 GIB (gastrointestinal bleeding) Chronic GERD BPH (benign prostatic hyperplasia) Major depression, recurrent, chronic Severe obesity (BMI >= 40) Diabetes mellitus treated with oral medication Anemia associated with acute blood loss Acute on chronic HFrEF (heart failure with reduced ejection fraction) Anemia Splenomegaly Thrombocytopenia Colostomy care Thrombocytopenia Chronic atrial fibrillation Type 2 diabetes mellitus CHF exacerbation ANETTE (obstructive sleep apnea) Chronic heart failure with reduced ejection fraction (HFrEF, <= 40%) Anemia Cirrhosis of liver without ascites Diabetes Goals of care, counseling/discussion Lactic acidosis UTI (urinary tract infection) Urinary tract infection Advanced care planning/counseling discussion Palliative care encounter Followed by [facility] Bowel obstruction Sepsis Heart failure with reduced ejection fraction Hypothyroidism Small bowel obstruction Lactic acid acidosis Creatinine elevation Acute UTI Anticoagulated COVID Recurrent intestinal obstruction History of colon cancer Chronic anticoagulation Portal hypertension Cirrhosis TIPs placed (?when, [facility]? 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, [facility] as per pt Non-insulin dependent type 2 diabetes mellitus Incontinence Hypertension Scleral icterus Surgical History S/P TIPS (transjugular intrahepatic portosystemic shunt) H/O left hemicolectomy Colostomy in place Social History Smoking/Tobacco Use Status: Former Tobacco Use Smoking risk assessment performed?: Yes Alcohol Intake: former Drug use: Never Substance use type: does not use Housing: residential Do you feel safe at home: Yes Do you feel safe in your relationship?: Yes Additional Social history: from [facility] Exam Narrative Exam Narrative: General: lying in hospital bed, sedated and on mechanical ventilation. He does not appear to be in distress. HEENT: Normocephalic, atraumatic. ETT tube Resp: mechanical ventilator Results Last Vital Signs Temp 36.4 C L 09/09/25 12:46 Pulse 64 09/09/25 15:46 Resp 15 09/09/25 15:46 BP 103/56 L 09/09/25 15:46 Pulse Ox 94 09/09/25 15:46 Labs 09/09/25 04:55 09/09/25 04:55 Labs: Laboratory Results - last 24 hr 09/08/25 09/09/25 09/09/25 21:10 04:55 06:45 WBC 8.96 RBC 3.00 L Hgb 8.3 L 8.4 L Hct 26.3 L 26.6 L MCV 89 MCH 28.0 MCHC 31.6 L RDW 19.7 H Plt Count 157 MPV 10.5 PT 12.1 H INR 1.2 H VBG pH 7.43 H VBG pCO2 42 VBG pO2 67 VBG HCO3 28 VBG Total CO2 27 VBG O2 Saturation 94 VBG Base Excess 4 H Sodium 145 Potassium 3.9 Chloride 110 H Carbon Dioxide 26.7 Anion Gap 8.3 BUN 33 H Creatinine 1.5 H Est GFR (CKD-EPI 2020) 45.89 Glucose 94 Calcium 7.9 L Total Bilirubin 1.20 AST 28 ALT 18 Alkaline Phosphatase 120 H Total Protein 4.7 L Albumin 2.3 L Time Spent Time Spent with Patient Time Spent(min): 78
[2025-09-09] MEDS: PROPOFOL 1,000 MG/100 ML BTL 13.091 MG IV_INF ×2 (17:07→23:59)
[2025-09-10] VITALS (123 sets, daily range): BP systolic 92–144; BP diastolic 38–70; PULSE 53–90; RESP 8–24; TEMP 36.4–37.1; O2SAT 85–99
[2025-09-10] MEDS: Normal Saline Flush 10 ML SYR IVP ×3 (01:00→21:38)
[2025-09-10] MEDS: fentaNYL 1,000 MCG in Normal Saline 80 ML 10.8 MCG IV_INF ×2 (01:20→12:43)
[2025-09-10] MEDS: Levothyroxine 100 MCG TAB NG (06:52)
[2025-09-10 06:57] LABS: HCT 26.8 % (40.0-50.0); HGB 8.4 g/dL (13.5-17.5); MCH 27.6 pg (27.0-33.0); MCHC 31.3 % (32.0-36.0); MCV 88 fL (80-95); MPV 10.7 fL (8.0-11.0); Platelet Count 164 10^3/uL (130-400); RBC 3.04 10^6/uL (4.36-5.78); RDW 19.2 % (11.8-14.1); RDW-SD 62.4 fL; WBC 6.86 10^3/uL (4.4-10.8)
[2025-09-10 07:05] LABS: INR 1.2 (0.9-1.1); Prothrombin Time 12.2 sec (9.1-11.1)
[2025-09-10 07:23] LABS: ALT 15 U/L (10-49); AST 28 U/L (<34); Albumin 2.2 g/dL (3.4-5.0); Alkaline Phosphatase 114 U/L (46-116); Anion Gap 9.6 mmol/L (3-11); BUN 30 mg/dL (9-23); Bilirubin, Total 1.00 mg/dL (0.2-1.2); CO2 27.4 mmol/L (20.0-31.0); Calcium 8.0 mg/dL (8.3-10.6); Chloride 109 mmol/L (98-107); Glucose 136 mg/dL (74-106); Potassium 3.7 mmol/L (3.5-5.1); Sodium 146 mmol/L (136-145); Total Protein 4.5 g/dL (5.7-8.2)
[2025-09-10] MEDS: PROPOFOL 1,000 MG/100 ML BTL 13.091 MG IV_INF ×2 (09:00→17:25)
[2025-09-10] MEDS: Norepinephrine in D5W 8 MG/250 ML BAG 11.25 MG IV (10:00)
[2025-09-10] MEDS: Lactulose 20 GM/30 ML CUP 15 GM NG ×3 (10:27→21:39)
[2025-09-10] MEDS: Pantoprazole 40 MG VIAL IVP (10:27)
[2025-09-10] MEDS: cefTRIAXone 1 GM/50 ML BAG IVPB (10:27)
[2025-09-10] MEDS: Enoxaparin 40 MG/0.4 ML SYR SC (10:27)
[2025-09-10] MEDS: Tamsulosin 0.4 MG CAPCR PO (10:28)
[2025-09-10] MEDS: Sennosides/Docusate Sodium TAB 2 TAB NG ×2 (10:28→21:39)
[2025-09-10] MEDS: Spironolactone 25 MG TAB NG (10:28)
[2025-09-10] MEDS: Rifaximin 550 MG TAB NG ×2 (10:28→21:39)
[2025-09-10] MEDS: Amiodarone 200 MG TAB NG (10:28)
[2025-09-10] MEDS: Chlorhexidine Gluconate 0.12% Mouthwash 480 ML BTL MM ×2 (10:39→21:40)
[2025-09-10] MEDS: Insulin Aspart 300 UNITS/3 ML PEN SC ×2 (13:24→17:59)
--- NOTE | 2025-09-10 14:00 | PGE_ITS ---
Date of Service Date of service: 09/10/25 Time of Service: 14:00 Assessment and Plan Assessment and plan (1) Septic shock: Status: Acute Assessment and plan: Sepsis with hypotension and end-organ damage requiring pressors. Blood cultures negative, source presumed UTI. He does not have a lot of ascites so not covered with agressive SBP coverage, though cefriaxone isn't bad for this. Central line placed 09/08, tube feeds started 09/09 Continue norepinephrine per protocol Continue ceftriaxone for UTI (2) Respiratory failure requiring intubation: Status: Acute Assessment and plan: Appreciate pulm/CC Continue daily sedation weaning trials If not improving by Wednesday 09/12 we will should consider terminal extubation (3) Pleural effusion: Status: Inactive Assessment and plan: Previously noted, due to cirrhosis (4) Anemia: Status: Chronic Assessment and plan: Sep 08 Hemoglobin 6.6, transfused PRBC 1u Repeat hemoglobins stable in the 8's (5) Hyperammonemic encephalopathy: Start date: 09/07/25 Status: Acute Assessment and plan: Continue lactulose and rifaximin via NG No indication to trend ammonia (6) Acute UTI: Start date: 09/07/25 Status: Acute Assessment and plan: Abnormal UA without symptoms of UTI Culture pending, grew sensitive serratia marcescens Continue ceftriaxone (7) Acute kidney injury: Start date: 09/07/25 Status: Acute Assessment and plan: Baseline creatinine around 1.1 RODOLFO with creatinine 1.4-1.7 this hospitalization, has been stable. (8) CHF (congestive heart failure): Assessment and plan: Careful diuresis, one dose at a time. Holding furosemide Sep 09. (9) Type 2 diabetes mellitus: Assessment and plan: SSI. Glucose has been 83-147, no change (10) Chronic atrial fibrillation: Assessment and plan: DOAC held for severe anemia Started on enoxaparin Sep 08, will continue in lieu of home apixaban (11) Hypertension: Status: Chronic Assessment and plan: Holding home regimen with hypotension (12) Cirrhosis: Assessment and plan: Chronic. liver labs have been stable. He does have recurrent encephalopathy status post TIPS as above. (13) Colon cancer: Assessment and plan: Status post hemicolectomy with colostomy bag in the left lower quadrant. This is permanent. Subjective Subjective Patient reports: denies vomiting or fever Interval history since last seen: Events: Changed to DNR/DNI Failed spontaneous breathing trial this morning. Intubated, not vocal. Exam Narrative Exam Narrative: General: lying in hospital bed, sedated and on mechanical ventilation. He does not appear to be in distress. On sedation trial, some movement of arms HEENT: Normocephalic, atraumatic. Does not open eyes, but pupils reactive elizabeth when opened manually. ETT tube Resp: mechanical ventilator, no rales/wheezes CV: RRR ABD: Soft, non-distended, no masses Neuro: Moves both arms but not clearly directed. Does not squeeze with command. No asterixis. Objective Last Vital Signs Temp 36.7 C 09/10/25 12:12 Pulse 67 09/10/25 13:16 Resp 12 09/10/25 13:49 BP 108/42 L 09/10/25 13:49 Pulse Ox 97 09/10/25 13:49 Laboratory Results - last 24 hr 09/10/25 05:35 WBC 6.86 RBC 3.04 L Hgb 8.4 L Hct 26.8 L MCV 88 MCH 27.6 MCHC 31.3 L RDW 19.2 H Plt Count 164 MPV 10.7 PT 12.2 H INR 1.2 H Sodium 146 H Potassium 3.7 Chloride 109 H Carbon Dioxide 27.4 Anion Gap 9.6 BUN 30 H Creatinine 1.4 H Est GFR (CKD-EPI 2020) 49.75 Glucose 136 H Calcium 8.0 L Total Bilirubin 1.00 AST 28 ALT 15 Alkaline Phosphatase 114 Total Protein 4.5 L Albumin 2.2 L Time Spent with Patient Time Spent with Patient: >50 minutes Time was spent: preparing to see the patient(eg.review tests), obtaining and/or reviewing separately otained hiistory, ordering medications,tests, procedures, referring, communicating with other health administrator health care facility, indepentently interpreting results, counseling the patient and care coordination
[2025-09-10] MEDS: Miconazole 2% Topical Powder 85 GM BTL (17:26)
[2025-09-11] VITALS (57 sets, daily range): BP systolic 99–137; BP diastolic 43–81; PULSE 52–92; RESP 10–21; TEMP 36.3–37; O2SAT 88–98
[2025-09-11] MEDS: PROPOFOL 1,000 MG/100 ML BTL 19.636 MG IV_INF ×5 (00:02→21:39)
[2025-09-11] MEDS: Insulin Aspart 300 UNITS/3 ML PEN SC ×4 (00:15→17:25)
[2025-09-11] MEDS: Levothyroxine 100 MCG TAB NG (05:26)
[2025-09-11] MEDS: Norepinephrine in D5W 8 MG/250 ML BAG 11.25 MG IV (06:11)
--- NOTE | 2025-09-11 06:41 | W.NUTRFU ---
Date of service: 09/11/25 Time of Service: 06:42 Nutrition Note NOTE: follow up with Bab's enteral feeding. Seems to be tolerating without conerns. total uring out yesterday:935mL. would suggest a free water goal of 1435mL. Patient currently receiving 780mL in free water flushes and formula provides 419mL for total of 1199mL per day. This allows for ~236mL in flushes for meds. Protein intake intiatially assessed as 2.0g/kg IBW. however intakes at just 1.065g/kg IBW associated with better weaning outcomes on ventilator. 1.2g/kg IBW is most likely going to meet his needs: 74g per day. Current formula intake provides 36g per day (leaving 38g per day) Would suggest adding active liquid protein gel to tube feeds TID (15g each) for additional 45g protein. Time Spent in Nutritional Counseling and Treatment: 10 min
[2025-09-11] MEDS: Sennosides/Docusate Sodium TAB 2 TAB NG ×2 (08:07→21:00)
[2025-09-11] MEDS: Tamsulosin 0.4 MG CAPCR PO (08:07)
[2025-09-11] MEDS: Enoxaparin 40 MG/0.4 ML SYR SC (08:07)
[2025-09-11] MEDS: Rifaximin 550 MG TAB NG ×2 (08:07→21:00)
[2025-09-11] MEDS: Normal Saline Flush 10 ML SYR IVP ×2 (08:07→20:59)
[2025-09-11] MEDS: Amiodarone 200 MG TAB NG (08:07)
[2025-09-11] MEDS: Lactulose 20 GM/30 ML CUP 15 GM NG (08:08)
[2025-09-11] MEDS: Chlorhexidine Gluconate 0.12% Mouthwash 480 ML BTL MM ×2 (08:09→21:01)
[2025-09-11] MEDS: Protein Nutritional Supplement 16 GM 1 OUNCE PACKET NG ×3 (08:19→20:59)
[2025-09-11 08:38] LABS: Anion Gap 6.4 mmol/L (3-11); BUN 26 mg/dL (9-23); CO2 29.6 mmol/L (20.0-31.0); Calcium 7.9 mg/dL (8.3-10.6); Chloride 108 mmol/L (98-107); Glucose 148 mg/dL (74-106); Potassium 3.6 mmol/L (3.5-5.1); Sodium 144 mmol/L (136-145)
--- NOTE | 2025-09-11 10:13 | W.PM.PROGNOT ---
Date of Service Date of service: 09/11/25 Time of Service: 10:13 Assessment and Plan Assessment and plan (1) Septic shock: Status: Acute Assessment and plan: Sepsis with hypotension and end-organ damage, still requiring pressors but dose has decreased. Blood cultures negative, source presumed UTI. He does not have a lot of ascites so not covered with agressive SBP coverage, though ceftriaxone does cover this. Central line placed 09/08, tube feeds started 09/09 Continue norepinephrine per protocol Continue ceftriaxone (2) Respiratory failure requiring intubation: Status: Acute Assessment and plan: Appreciate pulm/CC consult Continue daily sedation weaning trials, more spontaneous breathing today, but not ready for extubation There is more hope based on improvement today that he may survive extubation, but will work on preparing and team for management either way. (3) Anemia: Status: Chronic Assessment and plan: Sep 08 Hemoglobin 6.6, transfused PRBC 1u Repeat hemoglobins stable in the 8's, same today. (4) Hyperammonemic encephalopathy: Start date: 09/07/25 Status: Acute Assessment and plan: Continue lactulose and rifaximin via NG. He was not getting this and not stooling prior to the NG tube. I want to make sure encephalopathy is cleared and this isn't affecting his chance at extubation, so will increase dose for now. No indication to trend ammonia (5) Acute UTI: Start date: 09/07/25 Status: Acute Assessment and plan: Abnormal UA without symptoms of UTI Culture grew sensitive serratia marcescens Continue ceftriaxone (6) Acute kidney injury: Start date: 09/07/25 Status: Acute Assessment and plan: Baseline creatinine around 1.1 RODOLFO with creatinine 1.4-1.7 this hospitalization, has been stable to improving. (7) CHF (congestive heart failure): Assessment and plan: h/o HFrEF with LVEF 35%, but not currently fluid overloaded. Holding diuretics with hypotension (8) Type 2 diabetes mellitus: Assessment and plan: SSI. Glucose has been in 100s, no change (9) Chronic atrial fibrillation: Assessment and plan: DOAC held for severe anemia Started on enoxaparin Sep 08, will continue in lieu of home apixaban (10) Hypertension: Status: Chronic Assessment and plan: Holding home regimen with hypotension (11) Cirrhosis: Assessment and plan: Chronic. liver labs have been stable. He does have recurrent encephalopathy status post TIPS as above. Subjective Subjective Patient reports: denies fever Interval history since last seen: Events: Shut off fentanyl ggt overnight Increased stool output in ostomy bag. No other changes noted, still intubated. Exam Narrative Exam Narrative: General: lying in hospital bed, sedated and on mechanical ventilation. He does not appear to be in distress. On sedation vacation trial, more activity today, opening eyes partially and moving arms, but not following commands HEENT: Normocephalic, atraumatic. pupils reactive elizabeth. ETT tube Resp: mechanical ventilator, no rales/wheezes CV: RRR ABD: Soft, non-distended, no masses Neuro: Moves both arms, legs but not clearly directed. Does not squeeze with command. No asterixis. Objective Last Vital Signs Temp 36.6 C 09/11/25 07:00 Pulse 82 09/11/25 10:00 Resp 11 L 09/11/25 10:00 BP 136/57 L 09/11/25 10:00 Pulse Ox 97 09/11/25 10:00 Laboratory Results - last 24 hr 09/11/25 07:40 Sodium 144 Potassium 3.6 Chloride 108 H Carbon Dioxide 29.6 Anion Gap 6.4 BUN 26 H Creatinine 1.2 H Est GFR (CKD-EPI 2020) 58.46 Glucose 148 H Calcium 7.9 L Triglycerides 74 Time Spent with Patient Time Spent with Patient: >50 minutes Time was spent: preparing to see the patient(eg.review tests), obtaining and/or reviewing separately otained hiistory, ordering medications,tests, procedures, referring, communicating with other health home health care social worker, indepentently interpreting results, counseling the patient and care coordination
[2025-09-11] MEDS: cefTRIAXone 1 GM/50 ML BAG IVPB (10:21)
[2025-09-11] MEDS: Pantoprazole 40 MG VIAL IVP (10:21)
[2025-09-11] MEDS: Lactulose 20 GM/30 ML CUP 30 GM NG ×2 (14:01→20:59)
[2025-09-11] MEDS: Acetaminophen 500 MG TAB 1000 MG PO (21:00)
[2025-09-11] MEDS: Norepinephrine in D5W 8 MG/250 ML BAG 22.5 MG IV (23:40)
[2025-09-12] VITALS (88 sets, daily range): BP systolic 86–159; BP diastolic 49–81; PULSE 46–81; RESP 11–19; TEMP 36.4–36.5; O2SAT 91–100
[2025-09-12] MEDS: Insulin Aspart 300 UNITS/3 ML PEN SC ×2 (00:18→06:37)
[2025-09-12] MEDS: PROPOFOL 1,000 MG/100 ML BTL 19.636 MG IV_INF ×2 (02:58→08:03)
[2025-09-12] MEDS: Acetaminophen 500 MG TAB 1000 MG PO (06:29)
--- NOTE | 2025-09-12 06:30 | DI.RAD_ITS ---
Exam(s) XR PORTABLE CHEST AP EXAM: XR PORTABLE CHEST AP CLINICAL HISTORY: respiratory failure TECHNIQUE: 2D digital imaging was performed. COMPARISON: CR XR PORTABLE CHEST AP POST LINE from 09/08/2025 FINDINGS: Endotracheal tube is unchanged in position, above the luis. The nasogastric tube projects beneath diaphragm. Right internal jugular central line is unchanged in position in the lower SVC. LUNGS: Small right and moderate left pleural effusions. HEART: Enlarged. AORTA: Normal diameter. BONES: Unremarkable for age. Soft tissues: Unremarkable. IMPRESSION: Stable bilateral pleural effusions. DATA REPOSITORY: RADIATION DOSE DELIVERED:
[2025-09-12] MEDS: Levothyroxine 100 MCG TAB NG (06:31)
[2025-09-12 06:57] LABS: HCT 27.7 % (40.0-50.0); HGB 8.5 g/dL (13.5-17.5); MCH 27.2 pg (27.0-33.0); MCHC 30.7 % (32.0-36.0); MCV 89 fL (80-95); MPV 9.9 fL (8.0-11.0); Platelet Count 147 10^3/uL (130-400); RBC 3.13 10^6/uL (4.36-5.78); RDW 18.5 % (11.8-14.1); RDW-SD 59.9 fL; WBC 4.58 10^3/uL (4.4-10.8)
[2025-09-12 06:58] LABS: BE (Venous) 3 mmol/L (-2-3); HCO3 (Venous) 28 mmol/L (23-28); O2 Sat (Venous) 81 %; TCO2 (Venous) 27 mmol/L (24-29); pCO2 (Venous) 44 mmHg (41-51); pO2 (Venous) 46 mmHg
[2025-09-12 07:11] LABS: Anion Gap 7.3 mmol/L (3-11); BUN 30 mg/dL (9-23); CO2 28.7 mmol/L (20.0-31.0); Calcium 7.8 mg/dL (8.3-10.6); Chloride 109 mmol/L (98-107); Glucose 121 mg/dL (74-106); Potassium 3.7 mmol/L (3.5-5.1); Sodium 145 mmol/L (136-145)
[2025-09-12 07:12] LABS: Magnesium 2.0 mg/dL (1.6-2.6)
--- NOTE | 2025-09-12 07:28 | W.PULMCC ---
General Date of Service Date of service: 09/12/25 Time of Service: 06:30 Reason for Admission to ICU: Respiratory failure, encephalopathy Recommendations Pulmonary: Assessment: 1. Acute respiratory failure - due to hepatic encephalopathy. On 21% FiO2. Ventilator day 6 2. Septic shock - on 7 mcg/min levophed 3. Hepatic encephalopathy - on rifaxamin and lactulose 4. Cirrhosis - 2/2 alcohol abuse. S/P TIPS 5. Pleural effusions - likely related to cirrhosis/CHF. Do not have any clear evidence of active pneumonia. On minimal oxygen requirements, so holding on thoracentesis at this time 6. Afib / flutter - was on eliquis. Held due to anemia 7. Hx perforated gastric ulcer - 07/2025 8. Anemia - Hb stable 9. Systolic HF - EF 35% 10. UTI - urine culture positive for serratia Recommendations: - hold sedation this AM and reattempt breathing trial. Had an improved trial yesterday, however, was still not following commands consistently. Would be reasonable to give more time if we are seeing some improvement overall. Ongoing goals of care discussions will be important with family. Even if well optimized, he has a high risk of requiring re-intubation. His overall prognosis is very guarded, so taking a more palliative approach if he fails extubation would be reasonable. - titrate levophed for MAP > 65 - will start midodrine 5 mg TID - continue rifaxamin and lactulose for hepatic encephalopathy - hold tube feeds in the AM, for breathing trials - CXR and VBG this AM - he is very high risk for DVT so I feel continuation of lovenox ppx is reasonable. Continue to hold eliquis - continue rocephin for UTI Discussed with Dr. Arizmendi I&O: Intake & Output 09/09/25 09/10/25 09/11/25 09/12/25 23:59 23:59 23:59 23:59 Intake Total 815.736 / 577.199 8449.78 / 1259.78 1091.679 / 1091.679 608 / 608 Output Total 1900 / 1900 1085 / 1085 1425 / 1455 215 / 215 Balance -1084.264 / -1084.264 174.78 / 174.78 -333.321 / -363.321 393 / 393 Weight 102.9 kg 102.4 kg 102.9 kg 102.5 kg Code Status: Resuscitation Status DNR/DNI Subjective Critical and life-threatening events over the past 24 hours: Patient is a 80 yo with a history of cirrhosis, Afib, systolic HF (EF 24%), recent perforated gastric ulcer, recurrent SBO, who was admitted on 09/07/25 for encephalopathy. He is currently intubated and sedated with propofol. He had recent hospitalization at [facility] [place] for hepatic encephalopathy, a perforated gastric ulcer, and respiratory failure. Was intubated during that admission. He was discharged to rehab, where he developed worsening encephalopathy, so was brought to the ED. CT head was unremarkable, other than sinusitis. CT chest showed bilateral pleural effusions and posterior atelectasis. ABG showed a low CO2 level at 32. He was intubated in the ED for airway protection / encephalopathy. Had daily breathing trials over the weekend. These showed improvement, however, was not following commands regularly. Currently on FiO2 21%. On 7 mcg/min levophed. Ostomy output has been good. ROS: unable to obtain due to clinical status Exam Narrative Exam Narrative: General: intubated, sedated Head: normocephalic, ET tube in place ENT: no stridor, trachea midline CV: normal rate, regular rhythm Respiratory: no wheezing, no crackles, no rhonchi, no prolonged expiration GI: abd soft, non-distended, ostomy in place Skin: no rashes Extremities: +2 pitting edema, no digital clubbing Neuro: sedated Most Recent VS/Results Last Vital Signs Temp 36.5 C 09/12/25 05:00 Pulse 63 09/12/25 00:31 Resp 12 09/12/25 03:56 BP 150/71 H 09/12/25 05:44 Pulse Ox 99 09/12/25 05:44 Laboratory Results - last 24 hr 09/08/25 09/11/25 09/12/25 08:48 07:40 05:50 WBC 4.58 RBC 3.13 L Hgb 8.5 L Hct 27.7 L MCV 89 MCH 27.2 MCHC 30.7 L RDW 18.5 H Plt Count 147 MPV 9.9 VBG pH VBG pCO2 VBG pO2 VBG HCO3 VBG Total CO2 VBG O2 Saturation VBG Base Excess Sodium 144 145 Potassium 3.6 3.7 Chloride 108 H 109 H Carbon Dioxide 29.6 28.7 Anion Gap 6.4 7.3 BUN 26 H 30 H Creatinine 1.2 H 1.3 H Est GFR (CKD-EPI 2020) 58.46 55.77 Glucose 148 H 121 H Calcium 7.9 L 7.8 L Magnesium 2.0 Triglycerides 74 Crossmatch See Detail 09/12/25 06:55 WBC RBC Hgb Hct MCV MCH MCHC RDW Plt Count MPV VBG pH 7.41 VBG pCO2 44 VBG pO2 46 VBG HCO3 28 VBG Total CO2 27 VBG O2 Saturation 81 VBG Base Excess 3 Sodium Potassium Chloride Carbon Dioxide Anion Gap BUN Creatinine Est GFR (CKD-EPI 2020) Glucose Calcium Magnesium Triglycerides Crossmatch Time spent with patient Time spent in Critical Care: 36 Time spent in Critical care included: Performing procedures not included in c.c time, Coordination of care, Chart review, Documenting critically ill care, Time at immediate bedside, Discussing critically ill care with other medical staff and Discussing care with family members
--- NOTE | 2025-09-12 08:34 | PDOC.CMPRO ---
Date of service: 09/12/25 Time of Service: 08:34 Care Management Progress Note Progress Note Text Progress Note Text: Merrill was lying in bed, sedated and intubated, when CM met with him. His weaning trials did not go well this weekend and the decision was made this morning to terminally extubate him and place him on comfort measures. His son Scott and Cely came in and spent time with him before he was extubated. The extubation occurred at 1:47 pm. As of this writing, he remains sedated and is breathing on his own. Cely and Scott left for the day but plan to return in the morning. Discharge Potential Discharge Needs: PCP F/U Appt Anticipated Barriers to Discharge: Medical Status Patient/Family Education Needs: Review discharge instructions, discuss Ask Me Three Transportation: Other Plan: Merrill was terminally extubated this afternoon and is now on comfort measures. He has both Dilaudid and Versed drips running and appears very comfortable. CM will follow. Social Determinants of Health Screening Social Determinants of health last assessed in clinic: 09/08/25 Will the Patient Participate in the Screening?: Unable to obtain Do you worry about having a steady place to live?: no Problems where you live: no known problems In the past 12 months, have you had to go without electric, gas, oil or water in your home?: no Has lack of transportation kept you from medical appointments or from doing things needed for daily living?: no Has anyone in your life made you feel unsafe or unsupported?: no How hard is it for you to pay for the very basics like food, housing, medical care, and heating? Would you say it is:: Not hard at all Do you want help finding or keeping work or a job?: I do not need or want help If for any reason you need help with day-to-day activities such as bathing, preparing meals, shopping, managing finances, etc., do you get the help you need?: I could use a little more help How often do you feel lonely or isolated from those around you?: Sometimes Do you speak a language other than Lithuanian at home?: No Does the patient want assistance with any of the above?: No Comments: lives in a SNF Health Related Social Needs Health related social needs: problems with daily activities (Z73.9) and feeling lonely/isolated (Z60.8)
[2025-09-12] MEDS: Protein Nutritional Supplement 16 GM 1 OUNCE PACKET NG (09:21)
[2025-09-12] MEDS: Sennosides/Docusate Sodium TAB 2 TAB NG (09:21)
[2025-09-12] MEDS: Amiodarone 200 MG TAB NG (09:22)
[2025-09-12] MEDS: Enoxaparin 40 MG/0.4 ML SYR SC (09:22)
[2025-09-12] MEDS: Rifaximin 550 MG TAB NG (09:22)
[2025-09-12] MEDS: Midodrine 2.5 MG TAB 5 MG NG (09:22)
[2025-09-12] MEDS: Tamsulosin 0.4 MG CAPCR PO (09:22)
[2025-09-12] MEDS: cefTRIAXone 1 GM/50 ML BAG IVPB (09:23)
[2025-09-12] MEDS: Lactulose 20 GM/30 ML CUP 30 GM NG (09:24)
[2025-09-12] MEDS: Normal Saline Flush 10 ML SYR IVP ×2 (09:24→20:14)
[2025-09-12] MEDS: Pantoprazole 40 MG VIAL IVP (09:24)
[2025-09-12] MEDS: Chlorhexidine Gluconate 0.12% Mouthwash 480 ML BTL MM (09:25)
[2025-09-12] MEDS: Normal Saline 500 ML IV (09:28)
[2025-09-12] MEDS: Glycopyrrolate 0.2 MG/1 ML VIAL 0.4 MG IVP (12:07)
[2025-09-12] MEDS: Midazolam 2 MG/2 ML VIAL IVP (12:59)
[2025-09-12] MEDS: HYDROmorphone 2 MG/ML SYR IVP (13:00)
[2025-09-12] MEDS: MIDAZOLAM 50 MG in Normal Saline 90 ML IV_INF (13:01)
[2025-09-12] MEDS: HYDROmorphone 100 MG in Normal Saline 240 ML IV_INF (13:02)
--- NOTE | 2025-09-12 13:20 | W.NUTRFU ---
Date of service: 09/12/25 Time of Service: 13:21 Nutrition Note NOTE: brief cisit with iesha - his Cely visiting at bedside. Enteral feeding was not running. Checked with nursing - pt may transition to EMERGENCY DEPARTMENT NURSE today and enteral feedings might not resume per our conversation. Will remain available for any nutrition intervention deemed appropriate by medical team/family Time Spent in Nutritional Counseling and Treatment: 5 min
--- NOTE | 2025-09-12 17:51 | W.PM.PROGNOT ---
Date of Service Date of service: 09/12/25 Time of Service: 17:51 Assessment and Plan Assessment and plan (1) Comfort measures only status: Status: Acute Assessment and plan: Due to lack of improvement and poor prognosis, and son decided to proceed to [facility] [employer] status rather than continue intubation or attempt BiPAP and other more aggressive measures on extubation. After premedication he underewent extubation 09/12 without incident and has appeared comfortable I expect his prognosis is hours to 1-2 days. (2) Septic shock: Status: Acute Assessment and plan: Sepsis with hypotension and end-organ damage, still requiring pressors after 5 days of antibiotics and supportive care. To [employer] status today, off antiibotics. (3) Respiratory failure requiring intubation: Status: Acute Assessment and plan: terminal extubation went well 09/12. Subjective Subjective Patient reports: denies fever Interval history since last seen: Events: Case reviewed with Dr. Castellanos early this morning. However patient did poorly with inconsistent spontaneous breathing on trial this morning. significantly worse than 09/11, with no responsiveness to stimulation. We had a discussion with and son and decided to proceed with terminal extubation and [employer] status. putting out more in ostomy. Exam Narrative Exam Narrative: General: lying in hospital bed. with sedation off he is moving arms but not in response to voice or even painful stimulation. He does not appear to be in distress. HEENT: Normocephalic, atraumatic. pupils reactive elizabeth. ETT tube Resp: mechanical ventilator, no rales/wheezes. Once extubated, he is breathing shallow but comfortably. CV: RRR Objective Last Vital Signs Temp 36.4 C L 09/12/25 10:17 Pulse 65 09/12/25 13:30 Resp 16 09/12/25 13:30 BP 147/73 H 09/12/25 13:00 Pulse Ox 97 09/12/25 13:30 Laboratory Results - last 24 hr 09/08/25 09/12/25 09/12/25 08:48 05:50 06:55 WBC 4.58 RBC 3.13 L Hgb 8.5 L Hct 27.7 L MCV 89 MCH 27.2 MCHC 30.7 L RDW 18.5 H Plt Count 147 MPV 9.9 VBG pH 7.41 VBG pCO2 44 VBG pO2 46 VBG HCO3 28 VBG Total CO2 27 VBG O2 Saturation 81 VBG Base Excess 3 Sodium 145 Potassium 3.7 Chloride 109 H Carbon Dioxide 28.7 Anion Gap 7.3 BUN 30 H Creatinine 1.3 H Est GFR (CKD-EPI 2020) 55.77 Glucose 121 H Calcium 7.8 L Magnesium 2.0 Crossmatch See Detail Time Spent with Patient Time Spent with Patient: >50 minutes Time was spent: preparing to see the patient(eg.review tests), obtaining and/or reviewing separately otained hiistory, ordering medications,tests, procedures, referring, communicating with other health home health caregiver, indepentently interpreting results, counseling the patient and care coordination
--- NOTE | 2025-09-13 04:14 | NUR.NOTE ---
Pt. @ 0230.NENATHAN called at 0245.informed MD on duty @ 0250.Family called @ 0255.Charge nurse informed the housekeeper nanny.[facility](removed all tubings and lines),collier catheter and changed the colostomy bag done by this mortgage loan underwriter and a co-nurse.Paperworks filled out and necessary documentations.
--- NOTE | 2025-09-13 05:21 | NUR.NOTE ---
This casualty underwriter called Clary Orellana around 0518, of john,asked about what time they could claimed the body of iesha.Clary told this casualty underwriter about 10AM today.
== END 2025-09-13 07:37 | disposition expired | DRG 870 ==
LOC: ER 07:07 → ICU 09:04 → MS 09-12 17:54
PROVIDERS: Family Medicine; Internal Medicine Pulmonary Disease; Admitting Provider Family Medicine; Emergency Provider Student in an Organized Health Care Education/Training Program; PCP Nurse Practitioner Adult Health; Responsible Provider Family Medicine; Visit Provider Family Medicine
DX: A41.9 Sepsis, unspecified organism (principal); J96.01 Acute respiratory failure with hypoxia; R65.21 Severe sepsis with septic shock; I50.20 Unspecified systolic (congestive) heart failure; J98.11 Atelectasis; N39.0 Urinary tract infection, site not specified; I48.92 Unspecified atrial flutter; N17.9 Acute kidney failure, unspecified; E87.20 Acidosis, unspecified; I48.20 Chronic atrial fibrillation, unspecified; D61.818 Other pancytopenia; B37.0 Candidal stomatitis; I13.0 Hypertensive heart and chronic kidney disease with heart failure and stage 1 through stage 4 chronic kidney disease, or unspecified chronic kidney disease; I50.22 Chronic systolic (congestive) heart failure; K76.82 Hepatic encephalopathy; K70.31 Alcoholic cirrhosis of liver with ascites; D63.8 Anemia in other chronic diseases classified elsewhere; Z79.01 Long term (current) use of anticoagulants; Z51.5 Encounter for palliative care; Z78.1 Physical restraint status; Z79.84 Long term (current) use of oral hypoglycemic drugs; E03.9 Hypothyroidism, unspecified; Z93.3 Colostomy status; Z85.038 Personal history of other malignant neoplasm of large intestine; Z90.49 Acquired absence of other specified parts of digestive tract; N18.9 Chronic kidney disease, unspecified; R00.1 Bradycardia, unspecified; G89.29 Other chronic pain; M54.50 Low back pain, unspecified; I25.2 Old myocardial infarction; R29.6 Repeated falls; I95.1 Orthostatic hypotension; E11.22 Type 2 diabetes mellitus with diabetic chronic kidney disease; R45.89 Other symptoms and signs involving emotional state; Z73.89 Other problems related to life management difficulty; B96.89 Other specified bacterial agents as the cause of diseases classified elsewhere
CPT/HCPCS: 36556; 76937; 00123; 31500; 36415; 36416; 36430; 36592; 71045; 74177; 80048; 80053; 82805; 82962; 85027; 86850; 86900; 86901; 86920; 87040; 87077; 87637; 93005; 94640; 94761; 96365; 96366; 96375; 99291; J1650; 70450; 71260; 81003; 81015; 82140; 83605; 83735; 84439; 84443; 84478; 84484; 85014; 85018; 85025; 85610; 85730; 87086; 87186; 93010; 94002; 94003; 94664; 94760; 99223; 99232; 99233; J0696; J1171; J1596; J1815; J1938; J2250; J2470; J2704; J3010; J3490; P9016